=== PATIENT | female | born 1950 | race Caucasian/White ===

== ENCOUNTER 2018-04-12 15:14 | Inpatient (IN) | payer MEDICARE, MEDICAID, SELFPAY ==
[2018-04-12] VITALS (17 sets, daily range): BP systolic 88–126; BP diastolic 56–110; PULSE 124–142; RESP 16–28; TEMP 36.2–37; O2SAT 88–100; BMI 48.4
--- NOTE | 2018-04-12 15:17 | ED.FEMALEGU ---
HPI - Female Genitourinary <LYNNE Alves - Last Filed: 04/12/18 22:10> General Chief complaint: Urogenital-Female Stated complaint: THINKS SHE HAS UTI/BLADDER INFECTION Time Seen by Provider: 04/12/18 15:17 History of Present Illness HPI Narrative: 67 year old female here for complaint of having frequent urination and dysuria over the past several days he has. Triage nurse notice that her heart rate was approximately 1 0 40. EKG was obtained and it shows that she is in a flutter with RVR. She was placed in room and put on monitor. She denies any chest pain or shortness of breath. She denies having any history of prior a flutter or AFib. She denies any prior cardiac history. No fevers no chills. She denies having any sensation of her heart beating fast or palpitation. She has a history of hypertension and diabetes. She does smoke half a pack a day. She denies any other concerns or complaints. Related Data Home Medications Medication Instructions Recorded Confirmed gabapentin [Neurontin] 600 mg PO Q6H #0 02/01/11 04/12/18 fluticasone [Flonase Allergy 2 spray INTRANASAL QDAY #0 09/28/17 04/12/18 Relief] hydrochlorothiazide 1 - 2 cap PO QDAYP PRN #0 09/28/17 04/12/18 ipratropium-albuterol [Combivent 1 puff TID #0 09/28/17 04/12/18 Respimat] simvastatin 20 mg PO HS #0 09/28/17 04/12/18 albuterol sulfate 2 puff INHALATION Q4-6H PRN 04/12/18 04/12/18 aspirin 81 mg PO DAILY 04/12/18 04/12/18 hydrocodone-acetaminophen 1 tab PO Q6H PRN 04/12/18 04/12/18 losartan 50 mg PO DAILY 04/12/18 04/12/18 metformin [Glucophage] 500 mg PO BIDWM 04/12/18 04/12/18 oxybutynin chloride 10 mg PO DAILY 04/12/18 04/12/18 triamcinolone acetonide 1 applic TOPICAL BID 04/12/18 04/12/18 triamcinolone acetonide 1 dose TOPICAL BID 04/12/18 04/12/18 ursodiol 300 mg PO BID 04/12/18 04/12/18 Allergies Allergy/AdvReac Type Severity Reaction Status Date / Time captopril [CAPTOPRIL] Allergy Unknown Unverified 03/06/18 12:55 nabumetone [NABUMETONE] Allergy Unknown Unverified 03/06/18 12:55 Review of Systems <LYNNE Alves - Last Filed: 04/12/18 22:10> Constitutional Denies chills, Denies fever(s), Denies lethargy and Denies weakness Eyes Denies change in vision, Denies eye discharge, Denies irritation and Denies loss of vision Cardiovascular Denies dyspnea and Denies dyspnea on exertion Respiratory Denies cough, Denies dyspnea, Denies dyspnea on exertion and Denies wheezing Genitourinary Reports dysuria and Reports urinary urgency Neurologic Denies loss of vision and Denies weakness Allergic/Immunologic Denies wheezing Exam <LYNNE Alves - Last Filed: 04/12/18 22:10> Initial Vital Signs Initial Vital Signs: Vital Signs Pulse Rate 140 H 04/12/18 15:19 Respiratory Rate 20 04/12/18 15:19 Blood Pressure 115/90 H 04/12/18 15:19 Pulse Oximetry 95 04/12/18 15:19 Const General: cooperative and well developed Nutritional Appearance: well nourished Orientation: alert, awake, oriented x3 and not confused [facility] Head: normal to inspection and normocephalic Eyes Pupils: PERRL EOM: EOM intact bilaterally Resp Effort & Inspection: normal respiratory effort, able to speak in complete sentences, no respiratory distress and no use of accessory muscles Auscultation: clear to auscultation bilaterally, no rales, no rhonchi and no wheezes Cardio Rate: tachycardic Rhythm: regular rhythm Heart Sounds: S1 normal, S2 normal, no gallops, no murmurs and no rubs GI Inspection: non-distended Palpation: soft, no hepatosplenomegaly, No guarding, No pulsatile mass and No tender Auscultation: normal bowel sounds Back/Spine/Pelvis Back: normal to inspection, No back tenderness and No CVA tenderness Skin General: no rashes or lesions noted, No jaundice and No petechiae <Daljit Martino DO - Last Filed: 04/13/18 08:29> Initial Vital Signs Initial Vital Signs: Vital Signs Pulse Rate 140 H 04/12/18 15:19 Respiratory Rate 20 04/12/18 15:19 Blood Pressure 115/90 H 04/12/18 15:19 Pulse Oximetry 95 04/12/18 15:19 Course <LYNNE Alves - Last Filed: 04/12/18 22:10> Orders Ordered: ED Orders 04/13/18 04:40 B Type Natriuretic Peptide Routine Complete Blood Count AUTO DIFF Routine Troponin I Routine 04/13/18 05:00 EC echo doppler complete Routine Hydrocodone Bitart/Acetaminophen ([place] 5/325) 1 tab PO Q6HR PRN PRN Reason: Pain, Moderate Last Admin: 04/13/18 04:22 Dose: 1 tab Albuterol (Ventolin) 2.5 mg INH [id number] PRN PRN Reason: Shortness Of Breath Albuterol/Ipratropium (Duoneb) 3 ml INH RTBID [facility] Last Admin: 04/13/18 07:16 Dose: 3 ml Admin: 04/12/18 19:45 Dose: 3 ml Aspirin (Aspirin Ec) 81 mg PO DAILY [facility] Dextrose (D50w) 25 gm IV PRN PRN; Protocol PRN Reason: Hypoglycemia Fluticasone Propionate (Flonase) 2 spray NASAL DAILY [facility] Gabapentin (Neurontin) 600 mg PO Q6HR [facility] Last Admin: 04/13/18 07:33 Dose: 600 mg Admin: 04/12/18 23:42 Dose: 600 mg Hydrochlorothiazide (Hydrochlorothiazide) 12.5 mg PO DAILY [facility] Ondansetron HCl 8 mg/ Sodium (Chloride) 54 mls @ 108 mls/hr IV Q6HR PRN PRN Reason: Nausea And Vomiting Diltiazem HCl 125 mg/ Dextrose 125 mls @ 5 mls/hr IV TITRATE [facility]; Protocol Last Admin: 04/13/18 05:11 Dose: 15 mg/hr, 15 mls/hr Titration: 04/13/18 05:08 Dose: 125 mg/hr, 125 mls/hr Admin: 04/12/18 23:59 Dose: 15 mg/hr, 15 mls/hr Admin: 04/12/18 22:29 Dose: Not Given Sodium Chloride (Normal Saline 0.9%) 1,000 mls @ 125 mls/hr IV CONT [facility] Last Admin: 04/13/18 02:42 Dose: 125 mls/hr Admin: 04/12/18 22:30 Dose: Not Given Insulin Aspart (Novolog Flexpen) 0 unit SUBCUT ACHS [facility]; Protocol Last Admin: 04/12/18 21:00 Dose: 1 unit Losartan Potassium (Cozaar) 50 mg PO DAILY [facility] Metformin HCl (Glucophage) 500 mg PO 0800,1700 [facility] Oxybutynin (Ditropan) 10 mg PO DAILY [facility] Simvastatin (Zocor) 20 mg PO BEDTIME [facility] Last Admin: 04/12/18 22:23 Dose: 20 mg Triamcinolone Acetonide (Kenalog 0.1% Cream) 1 applic TOP BID PRN PRN Reason: Irritation Ursodiol (Actigall) 300 mg PO BID [facility] Last Admin: 04/12/18 22:23 Dose: 300 mg Discontinued Medications Diltiazem HCl (Cardizem) 20 mg IV NOW ONE Stop: 04/12/18 15:44 Last Admin: 04/12/18 16:08 Dose: 20 mg Gabapentin (Neurontin) 600 mg PO TID [facility] Last Admin: 04/12/18 20:38 Dose: 600 mg Sodium Chloride (Normal Saline 0.9%) 1,000 mls @ 150 mls/hr IV CONT [facility] Last Infusion: 04/12/18 22:32 Dose: 150 mls/hr Infusion: 04/12/18 18:20 Dose: 150 mls/hr Admin: 04/12/18 16:07 Dose: 150 mls/hr Ceftriaxone Sodium/Dextrose (Rocephin) 1 gm in 50 mls @ 100 mls/hr IV NOW ONE Stop: 04/12/18 18:21 Last Infusion: 04/12/18 22:34 Dose: 0 mls/hr Infusion: 04/12/18 18:25 Dose: 100 mls/hr Admin: 04/12/18 17:58 Dose: 100 mls/hr Diltiazem HCl 125 mg/ Dextrose 125 mls @ 5 mls/hr IV TITRATE [facility]; Protocol Last Admin: 04/13/18 06:00 Dose: Not Given Sodium Chloride (Normal Saline 0.9%) 1,000 mls @ 125 mls/hr IV CONT [facility] Last Admin: 04/12/18 20:39 Dose: 125 mls/hr Ondansetron HCl 8 mg/ Sodium (Chloride) 104 mls @ 208 mls/hr IV Q6HR PRN PRN Reason: Nausea And Vomiting Labetalol HCl (Trandate) 5 mg IV NOW ONE Stop: 04/12/18 16:36 Last Admin: 04/12/18 16:57 Dose: 5 mg Vital Signs - 8 hr 04/13/18 00:30 04/13/18 01:00 04/13/18 01:30 Temperature Pulse Rate 95 H Respiratory Rate Blood Pressure 102/56 L 121/85 H 130/72 H Pulse Oximetry 04/13/18 02:00 04/13/18 02:30 04/13/18 03:00 Temperature Pulse Rate 115 H 106 H 97 H Respiratory Rate Blood Pressure 132/72 H 93/72 101/66 Pulse Oximetry 04/13/18 04:00 04/13/18 04:30 04/13/18 05:00 Temperature 97.8 F Pulse Rate 87 83 87 Respiratory Rate 20 Blood Pressure 118/54 L 123/64 H 123/64 H Pulse Oximetry 95 04/13/18 05:11 04/13/18 06:00 04/13/18 06:54 Temperature Pulse Rate 93 H 90 92 H Respiratory Rate 16 20 Blood Pressure 123/64 H 127/51 H 127/61 H Pulse Oximetry 04/13/18 07:15 04/13/18 07:19 Temperature Pulse Rate 78 Respiratory Rate 16 Blood Pressure Pulse Oximetry 95 <Daljit Martino, DO - Last Filed: 04/13/18 08:29> Orders Ordered: ED Orders 04/13/18 04:40 B Type Natriuretic Peptide Routine Complete Blood Count AUTO DIFF Routine Troponin I Routine 04/13/18 05:00 EC echo doppler complete Routine Hydrocodone Bitart/Acetaminophen ([place] 5/325) 1 tab PO Q6HR PRN PRN Reason: Pain, Moderate Last Admin: 04/13/18 04:22 Dose: 1 tab Albuterol (Ventolin) 2.5 mg INH [id number] PRN PRN Reason: Shortness Of Breath Albuterol/Ipratropium (Duoneb) 3 ml INH RTBID [facility] Last Admin: 04/13/18 07:16 Dose: 3 ml Admin: 04/12/18 19:45 Dose: 3 ml Aspirin (Aspirin Ec) 81 mg PO DAILY [facility] Dextrose (D50w) 25 gm IV PRN PRN; Protocol PRN Reason: Hypoglycemia Fluticasone Propionate (Flonase) 2 spray NASAL DAILY [facility] Gabapentin (Neurontin) 600 mg PO Q6HR [facility] Last Admin: 04/13/18 07:33 Dose: 600 mg Admin: 04/12/18 23:42 Dose: 600 mg Hydrochlorothiazide (Hydrochlorothiazide) 12.5 mg PO DAILY [facility] Ondansetron HCl 8 mg/ Sodium (Chloride) 54 mls @ 108 mls/hr IV Q6HR PRN PRN Reason: Nausea And Vomiting Diltiazem HCl 125 mg/ Dextrose 125 mls @ 5 mls/hr IV TITRATE [facility]; Protocol Last Admin: 04/13/18 05:11 Dose: 15 mg/hr, 15 mls/hr Titration: 04/13/18 05:08 Dose: 125 mg/hr, 125 mls/hr Admin: 04/12/18 23:59 Dose: 15 mg/hr, 15 mls/hr Admin: 04/12/18 22:29 Dose: Not Given Sodium Chloride (Normal Saline 0.9%) 1,000 mls @ 125 mls/hr IV CONT [facility] Last Admin: 04/13/18 02:42 Dose: 125 mls/hr Admin: 04/12/18 22:30 Dose: Not Given Insulin Aspart (Novolog Flexpen) 0 unit SUBCUT ACHS [facility]; Protocol Last Admin: 04/12/18 21:00 Dose: 1 unit Losartan Potassium (Cozaar) 50 mg PO DAILY [facility] Metformin HCl (Glucophage) 500 mg PO 0800,1700 [facility] Oxybutynin (Ditropan) 10 mg PO DAILY [facility] Simvastatin (Zocor) 20 mg PO BEDTIME [facility] Last Admin: 04/12/18 22:23 Dose: 20 mg Triamcinolone Acetonide (Kenalog 0.1% Cream) 1 applic TOP BID PRN PRN Reason: Irritation Ursodiol (Actigall) 300 mg PO BID [facility] Last Admin: 04/12/18 22:23 Dose: 300 mg Discontinued Medications Diltiazem HCl (Cardizem) 20 mg IV NOW ONE Stop: 04/12/18 15:44 Last Admin: 04/12/18 16:08 Dose: 20 mg Gabapentin (Neurontin) 600 mg PO TID [facility] Last Admin: 04/12/18 20:38 Dose: 600 mg Sodium Chloride (Normal Saline 0.9%) 1,000 mls @ 150 mls/hr IV CONT [facility] Last Infusion: 04/12/18 22:32 Dose: 150 mls/hr Infusion: 04/12/18 18:20 Dose: 150 mls/hr Admin: 04/12/18 16:07 Dose: 150 mls/hr Ceftriaxone Sodium/Dextrose (Rocephin) 1 gm in 50 mls @ 100 mls/hr IV NOW ONE Stop: 04/12/18 18:21 Last Infusion: 04/12/18 22:34 Dose: 0 mls/hr Infusion: 04/12/18 18:25 Dose: 100 mls/hr Admin: 04/12/18 17:58 Dose: 100 mls/hr Diltiazem HCl 125 mg/ Dextrose 125 mls @ 5 mls/hr IV TITRATE [facility]; Protocol Last Admin: 04/13/18 06:00 Dose: Not Given Sodium Chloride (Normal Saline 0.9%) 1,000 mls @ 125 mls/hr IV CONT [facility] Last Admin: 04/12/18 20:39 Dose: 125 mls/hr Ondansetron HCl 8 mg/ Sodium (Chloride) 104 mls @ 208 mls/hr IV Q6HR PRN PRN Reason: Nausea And Vomiting Labetalol HCl (Trandate) 5 mg IV NOW ONE Stop: 04/12/18 16:36 Last Admin: 04/12/18 16:57 Dose: 5 mg Vital Signs - 8 hr 04/13/18 00:30 04/13/18 01:00 04/13/18 01:30 Temperature Pulse Rate 95 H Respiratory Rate Blood Pressure 102/56 L 121/85 H 130/72 H Pulse Oximetry 04/13/18 02:00 04/13/18 02:30 04/13/18 03:00 Temperature Pulse Rate 115 H 106 H 97 H Respiratory Rate Blood Pressure 132/72 H 93/72 101/66 Pulse Oximetry 04/13/18 04:00 04/13/18 04:30 04/13/18 05:00 Temperature 97.8 F Pulse Rate 87 83 87 Respiratory Rate 20 Blood Pressure 118/54 L 123/64 H 123/64 H Pulse Oximetry 95 04/13/18 05:11 04/13/18 06:00 04/13/18 06:54 Temperature Pulse Rate 93 H 90 92 H Respiratory Rate 16 20 Blood Pressure 123/64 H 127/51 H 127/61 H Pulse Oximetry 04/13/18 07:15 04/13/18 07:19 Temperature Pulse Rate 78 Respiratory Rate 16 Blood Pressure Pulse Oximetry 95 MDM - Female Genitourinary <LYNNE Alves - Last Filed: 04/12/18 22:10> Lab Data Result diagrams: 04/13/18 04:40 04/12/18 15:55 Lab Results 04/12/18 04/12/18 04/12/18 Range/Units 15:55 15:55 15:55 WBC 9.1 (4.5-11.0) X10^3/uL RBC 4.80 (4.0-5.2) X10^6/uL Hgb 11.3 L (12.0-16.0) g/dL Hct 36.2 (36-46) % MCV 75.3 L (80-100) fL MCH 23.4 L (26-34) PG MCHC 31.1 (30-36) % RDW 20.1 H (11.6-14.8) % Plt Count 294 (150-400) X10^3/uL Neut % (Auto) 68.6 (50-75) % Lymph % (Auto) 18.5 L (25-40) % Dickinson % (Auto) 9.1 (3-14) % Eos % (Auto) 2.4 (2-4) % Baso % (Auto) 1.4 (0-2) % Neut # (Auto) 6200 H (3090-0193) /uL RBC Morphology Normal morphology Anisocytosis 2+ H Microcytosis 1+ H PT 12.0 (10.1-12.7) SECONDS INR 1.1 (0.9-1.3) Sodium 137 (137-145) mmol/L Potassium 4.4 (3.4-5.1) mmol/L Chloride 96.0 L (98-107) mmol/L Carbon Dioxide 33.0 H (22-32) mmol/L BUN 14.0 (7-17) mg/dL Creatinine 0.70 (0.52-1.04) mg/dL Estimated GFR > 60.0 (>60) mL/min BUN/Creatinine Ratio 20.0 (6-22) Glucose 123 H (80-110) mg/dL Calcium 8.5 (8.4-10.2) mg/dL Total Bilirubin 0.4 (0.2-1.3) mg/dL AST 18 (14-36) IU/L ALT 19 (9-52) IU/L Alkaline Phosphatase 74 (38-126) U/L Total Creatine Kinase 57 (30-135) U/L CK-MB (CK-2) TNP Troponin I < 0.012 (0.01-0.034) ng/mL B-Natriuretic Peptide (<100) Total Protein 6.7 (6.3-8.2) g/dL Albumin 3.5 (3.5-5.0) g/dL Globulin 3.2 (1.7-4.1) g/dL Albumin/Globulin Ratio 1.1 (1.0-2.8) Lipase 38 (23-300) U/L Procalcitonin (<0.5) ng/mL Nasal Screen MRSA (PCR) (Negative) 04/12/18 04/12/18 04/13/18 Range/Units 18:30 21:00 04:40 WBC 7.8 (4.5-11.0) X10^3/uL RBC 4.75 (4.0-5.2) X10^6/uL Hgb 11.0 L (12.0-16.0) g/dL Hct 35.9 L (36-46) % MCV 75.6 L (80-100) fL MCH 23.1 L (26-34) PG MCHC 30.5 (30-36) % RDW 20.3 H (11.6-14.8) % Plt Count 269 (150-400) X10^3/uL Neut % (Auto) 61.1 (50-75) % Lymph % (Auto) 26.2 (25-40) % Dickinson % (Auto) 8.9 (3-14) % Eos % (Auto) 2.9 (2-4) % Baso % (Auto) 0.9 (0-2) % Neut # (Auto) 4700 (4578-5406) /uL RBC Morphology Anisocytosis Microcytosis PT (10.1-12.7) SECONDS INR (0.9-1.3) Sodium (137-145) mmol/L Potassium (3.4-5.1) mmol/L Chloride (98-107) mmol/L Carbon Dioxide (22-32) mmol/L BUN (7-17) mg/dL Creatinine (0.52-1.04) mg/dL Estimated GFR (>60) mL/min BUN/Creatinine Ratio (6-22) Glucose (80-110) mg/dL Calcium (8.4-10.2) mg/dL Total Bilirubin (0.2-1.3) mg/dL AST (14-36) IU/L ALT (9-52) IU/L Alkaline Phosphatase (38-126) U/L Total Creatine Kinase (30-135) U/L CK-MB (CK-2) Troponin I (0.01-0.034) ng/mL B-Natriuretic Peptide 191.0 (<100) Total Protein (6.3-8.2) g/dL Albumin (3.5-5.0) g/dL Globulin (1.7-4.1) g/dL Albumin/Globulin Ratio (1.0-2.8) Lipase (23-300) U/L Procalcitonin < 0.05 (<0.5) ng/mL Nasal Screen MRSA (PCR) Negative for mrsa (Negative) 04/13/18 Range/Units 04:40 WBC (4.5-11.0) X10^3/uL RBC (4.0-5.2) X10^6/uL Hgb (12.0-16.0) g/dL Hct (36-46) % MCV (80-100) fL MCH (26-34) PG MCHC (30-36) % RDW (11.6-14.8) % Plt Count (150-400) X10^3/uL Neut % (Auto) (50-75) % Lymph % (Auto) (25-40) % Dickinson % (Auto) (3-14) % Eos % (Auto) (2-4) % Baso % (Auto) (0-2) % Neut # (Auto) (4768-6909) /uL RBC Morphology Anisocytosis Microcytosis PT (10.1-12.7) SECONDS INR (0.9-1.3) Sodium (137-145) mmol/L Potassium (3.4-5.1) mmol/L Chloride (98-107) mmol/L Carbon Dioxide (22-32) mmol/L BUN (7-17) mg/dL Creatinine (0.52-1.04) mg/dL Estimated GFR (>60) mL/min BUN/Creatinine Ratio (6-22) Glucose (80-110) mg/dL Calcium (8.4-10.2) mg/dL Total Bilirubin (0.2-1.3) mg/dL AST (14-36) IU/L ALT (9-52) IU/L Alkaline Phosphatase (38-126) U/L Total Creatine Kinase (30-135) U/L CK-MB (CK-2) Troponin I < 0.012 (0.01-0.034) ng/mL B-Natriuretic Peptide (<100) Total Protein (6.3-8.2) g/dL Albumin (3.5-5.0) g/dL Globulin (1.7-4.1) g/dL Albumin/Globulin Ratio (1.0-2.8) Lipase (23-300) U/L Procalcitonin (<0.5) ng/mL Nasal Screen MRSA (PCR) (Negative) Imaging Data Chest x-ray: Radiologist's impression: PROCEDURE: XR CHEST 1V INDICATIONS: aflutter with rvr TECHNIQUE: One view of the chest was acquired. COMPARISON: [facility], CHEST 1 VIEW, 09/30/2017, 9:21. FINDINGS: Surgical changes and devices: None. Lungs and pleura: No pleural effusions or pneumothorax. Lungs are clear. Mediastinum: Mediastinal contours appear normal. Heart size is mildly enlarged. Bones and chest wall: No suspicious bony lesions. Overlying soft tissues appear unremarkable. IMPRESSION: Borderline cardiomegaly. No failure or pneumonia seen. ECG Data Interpretation: EKG shows a flutter with RVR with a rate of 135. No ST elevation or depression. QRS duration of 94. QTC of 380. MDM Narrative Medical decision making narrative: EKG was obtained and shows a flutter with RVR. No prior history of AFib or a flutter. No prior cardiac history. She was given a 20 mg of Cardizem IV which did not affect her rate and then she was given 5 mg of labetalol this also did not affect her rate. Her blood pressure dropped to approximately 90/70. We waited for blood pressure to return to baseline before starting her on Cardizem drip. Chest x-ray was negative for any acute findings. CBC Chem panel were obtained were unremarkable. Cardiac enzymes were obtained and were negative. Urinalysis indicates urinary tract infection she is given 1 g of Rocephin IV. Discussed case with hospitalist who accepted patient patient is admitted to ICU for Cardizem drip and observation. <Daljit Martino, DO - Last Filed: 04/13/18 08:29> Lab Data Lab Results 04/12/18 04/12/18 04/12/18 Range/Units 15:55 15:55 15:55 WBC 9.1 (4.5-11.0) X10^3/uL RBC 4.80 (4.0-5.2) X10^6/uL Hgb 11.3 L (12.0-16.0) g/dL Hct 36.2 (36-46) % MCV 75.3 L (80-100) fL MCH 23.4 L (26-34) PG MCHC 31.1 (30-36) % RDW 20.1 H (11.6-14.8) % Plt Count 294 (150-400) X10^3/uL Neut % (Auto) 68.6 (50-75) % Lymph % (Auto) 18.5 L (25-40) % Dickinson % (Auto) 9.1 (3-14) % Eos % (Auto) 2.4 (2-4) % Baso % (Auto) 1.4 (0-2) % Neut # (Auto) 6200 H (9532-1965) /uL RBC Morphology Normal morphology Anisocytosis 2+ H Microcytosis 1+ H PT 12.0 (10.1-12.7) SECONDS INR 1.1 (0.9-1.3) Sodium 137 (137-145) mmol/L Potassium 4.4 (3.4-5.1) mmol/L Chloride 96.0 L (98-107) mmol/L Carbon Dioxide 33.0 H (22-32) mmol/L BUN 14.0 (7-17) mg/dL Creatinine 0.70 (0.52-1.04) mg/dL Estimated GFR > 60.0 (>60) mL/min BUN/Creatinine Ratio 20.0 (6-22) Glucose 123 H (80-110) mg/dL Calcium 8.5 (8.4-10.2) mg/dL Total Bilirubin 0.4 (0.2-1.3) mg/dL AST 18 (14-36) IU/L ALT 19 (9-52) IU/L Alkaline Phosphatase 74 (38-126) U/L Total Creatine Kinase 57 (30-135) U/L CK-MB (CK-2) TNP Troponin I < 0.012 (0.01-0.034) ng/mL B-Natriuretic Peptide (<100) Total Protein 6.7 (6.3-8.2) g/dL Albumin 3.5 (3.5-5.0) g/dL Globulin 3.2 (1.7-4.1) g/dL Albumin/Globulin Ratio 1.1 (1.0-2.8) Lipase 38 (23-300) U/L Procalcitonin (<0.5) ng/mL Nasal Screen MRSA (PCR) (Negative) 04/12/18 04/12/18 04/13/18 Range/Units 18:30 21:00 04:40 WBC 7.8 (4.5-11.0) X10^3/uL RBC 4.75 (4.0-5.2) X10^6/uL Hgb 11.0 L (12.0-16.0) g/dL Hct 35.9 L (36-46) % MCV 75.6 L (80-100) fL MCH 23.1 L (26-34) PG MCHC 30.5 (30-36) % RDW 20.3 H (11.6-14.8) % Plt Count 269 (150-400) X10^3/uL Neut % (Auto) 61.1 (50-75) % Lymph % (Auto) 26.2 (25-40) % Dickinson % (Auto) 8.9 (3-14) % Eos % (Auto) 2.9 (2-4) % Baso % (Auto) 0.9 (0-2) % Neut # (Auto) 4700 (1297-3734) /uL RBC Morphology Anisocytosis Microcytosis PT (10.1-12.7) SECONDS INR (0.9-1.3) Sodium (137-145) mmol/L Potassium (3.4-5.1) mmol/L Chloride (98-107) mmol/L Carbon Dioxide (22-32) mmol/L BUN (7-17) mg/dL Creatinine (0.52-1.04) mg/dL Estimated GFR (>60) mL/min BUN/Creatinine Ratio (6-22) Glucose (80-110) mg/dL Calcium (8.4-10.2) mg/dL Total Bilirubin (0.2-1.3) mg/dL AST (14-36) IU/L ALT (9-52) IU/L Alkaline Phosphatase (38-126) U/L Total Creatine Kinase (30-135) U/L CK-MB (CK-2) Troponin I (0.01-0.034) ng/mL B-Natriuretic Peptide 191.0 (<100) Total Protein (6.3-8.2) g/dL Albumin (3.5-5.0) g/dL Globulin (1.7-4.1) g/dL Albumin/Globulin Ratio (1.0-2.8) Lipase (23-300) U/L Procalcitonin < 0.05 (<0.5) ng/mL Nasal Screen MRSA (PCR) Negative for mrsa (Negative) 04/13/18 Range/Units 04:40 WBC (4.5-11.0) X10^3/uL RBC (4.0-5.2) X10^6/uL Hgb (12.0-16.0) g/dL Hct (36-46) % MCV (80-100) fL MCH (26-34) PG MCHC (30-36) % RDW (11.6-14.8) % Plt Count (150-400) X10^3/uL Neut % (Auto) (50-75) % Lymph % (Auto) (25-40) % Dickinson % (Auto) (3-14) % Eos % (Auto) (2-4) % Baso % (Auto) (0-2) % Neut # (Auto) (2269-0775) /uL RBC Morphology Anisocytosis Microcytosis PT (10.1-12.7) SECONDS INR (0.9-1.3) Sodium (137-145) mmol/L Potassium (3.4-5.1) mmol/L Chloride (98-107) mmol/L Carbon Dioxide (22-32) mmol/L BUN (7-17) mg/dL Creatinine (0.52-1.04) mg/dL Estimated GFR (>60) mL/min BUN/Creatinine Ratio (6-22) Glucose (80-110) mg/dL Calcium (8.4-10.2) mg/dL Total Bilirubin (0.2-1.3) mg/dL AST (14-36) IU/L ALT (9-52) IU/L Alkaline Phosphatase (38-126) U/L Total Creatine Kinase (30-135) U/L CK-MB (CK-2) Troponin I < 0.012 (0.01-0.034) ng/mL B-Natriuretic Peptide (<100) Total Protein (6.3-8.2) g/dL Albumin (3.5-5.0) g/dL Globulin (1.7-4.1) g/dL Albumin/Globulin Ratio (1.0-2.8) Lipase (23-300) U/L Procalcitonin (<0.5) ng/mL Nasal Screen MRSA (PCR) (Negative) Critical Care Time <LYNNE Alves - Last Filed: 04/12/18 22:10> Critical Care Time: Yes Total Critical Care Time: 2 Attestation: aflutter and rvr Discharge Plan Departure Clinical Impression: Atrial flutter with rapid ventricular response Discharge Date/Time: 04/12/18 19:29 Interventions: ED Discharge Assessment Last Done: 04/12/18 18:14 Admit Date/Time: 04/12/18 19:28 Admit Provider: Kaleb Gonzales V <Daljit Martino DO - Last Filed: 04/13/18 08:29> Cosign ED Attending Cosignature Attestation: I was immediately available in the department for consultation. This documentation has been reviewed and I agree with assessment and plan. Supervised by Daljit Martino DO
--- NOTE | 2018-04-12 15:43 | DI.RAD.S_ITS ---
PROCEDURE: XR CHEST 1V INDICATIONS: aflutter with rvr TECHNIQUE: One view of the chest was acquired. COMPARISON: [facility], , CHEST 1 VIEW, 09/30/2017, 9:21. FINDINGS: Surgical changes and devices: None. Lungs and pleura: No pleural effusions or pneumothorax. Lungs are clear. Mediastinum: Mediastinal contours appear normal. Heart size is mildly enlarged. Bones and chest wall: No suspicious bony lesions. Overlying soft tissues appear unremarkable. IMPRESSION: Borderline cardiomegaly. No failure or pneumonia seen. Dictated by: Shreyas Connors M.D. on 04/12/2018 at 16:21 Approved by: Shreyas Connors M.D. on 04/12/2018 at 16:23
[2018-04-12 16:04] LABS: Add Manual Diff / Slide Review NO; Basophils Percent Auto 1.4 % (0-2); Eosinophils Percent Auto 2.4 % (2-4); Hematocrit 36.2 % (36-46); Hemoglobin 11.3 g/dL (12.0-16.0); Lymphocytes Percent Auto 18.5 % (25-40); Mean Corpuscular HGB Conc 31.1 % (30-36); Mean Corpuscular Hemoglobin 23.4 PG (26-34); Mean Corpuscular Volume 75.3 fL (80-100); Monocytes Percent Auto 9.1 % (3-14); Neutrophils Absolute Auto 6200 /uL (3000-5900); Neutrophils Percent Auto 68.6 % (50-75); Platelet Count 294 X10^3/uL (150-400); Red Cell Distribution Width 20.1 % (11.6-14.8); White Blood Cell Count 9.1 X10^3/uL (4.5-11.0)
[2018-04-12] MEDS: SODIUM CHLORIDE 0.9% 1,000 ML 150 ML IV (16:07)
[2018-04-12] MEDS: dilTIAZem 25 MG/5 ML SDV 20 MG IV (16:08)
[2018-04-12 16:09] LABS: INR 1.1 (0.9-1.3)
[2018-04-12 16:13] LABS: Alanine Aminotransferase 19 IU/L (9-52); Albumin 3.5 g/dL (3.5-5.0); Albumin Globulin Ratio 1.1 (1.0-2.8); Alkaline Phosphatase 74 U/L (38-126); Aspartate Aminotransferase 18 IU/L (14-36); Bilirubin Total 0.4 mg/dL (0.2-1.3); Calcium 8.5 mg/dL (8.4-10.2); Creatine Kinase 57 U/L (30-135); Estimated Glomerular Filt Rate > 60.0 mL/min (>60); Globulin 3.2 g/dL (1.7-4.1); Glucose 123 mg/dL (80-110); HEMOLYSIS < 15 (0-50); Lipase 38 U/L (23-300); Potassium 4.4 mmol/L (3.4-5.1); Sodium 137 mmol/L (137-145); Total Protein 6.7 g/dL (6.3-8.2)
[2018-04-12 16:26] LABS: Troponin I < 0.012 ng/mL (0.01-0.034)
--- NOTE | 2018-04-12 16:30 | PC.NURSE ---
Placed on 2l nc for O2 sats 87% per practioner
[2018-04-12 16:31] LABS: Anisocytosis 2+; Microcytosis 1+
[2018-04-12 16:33] LABS: RBC Morphology Normal Morphology
[2018-04-12] MEDS: LABETALOL 20 MG/4 ML SYRINGE 5 MG IV (16:57)
[2018-04-12] MEDS: CEFTRIAXONE 1 GM/50 ML FROZ.PIGGY IV (17:58)
--- NOTE | 2018-04-12 18:20 | PM.HP.1 ---
History of Present Illness Chief complaint: THINKS SHE HAS UTI/BLADDER INFECTION Narrative: Alem Donahue is a 67 year old female under the primary care of Dr. Saini presented after experiencing 1 week of dysuria, urgency and hesitancy. She thought that she had a urinary tract infection. She states that she has not seen a primary care provider in over 6 months, and tried to go to urgent cares but they would take her insurance, so she presented to the emergency department. In the ER she was found to have a heart rate in the 130s and found to be in atrial fibrillation/flutter by EKG. She was given 20 mg of IV diltiazem with no apparent effect on heart rate, though did become mildly hypotensive with blood pressures into the 80s. She was given IV fluids and admitted to the ICU for ongoing management and care. She denies previous history of a arrhythmias and furthermore denies chest pain, shortness of breath, palpitations or any recent alteration in her chronic dyspnea which she attributes to COPD. PFSH Medical History Cholelithiasis (Acute) Depression (Acute) Diabetes (Acute) Fracture of left ankle (Acute) Hyperlipidemia (Acute) Hypertension (Acute) Inguinal hernia (Acute) Lumbar degenerative disc disease (Acute) Osteoarthritis (Acute) Pneumococcal meningitis (Acute) Prolapsed bladder (Acute) Surgical History History of abdominoplasty (Acute) History of gastric bypass (Acute) Social History Smoking Status: Current every day smoker alcohol intake: former additional social history: lives alone Meds Home Medications Medication Instructions Recorded Confirmed Type gabapentin [Neurontin] 600 mg PO Q6H #0 02/01/11 04/12/18 History fluticasone [Flonase Allergy 2 spray INTRANASAL QDAY #0 09/28/17 04/12/18 History Relief] hydrochlorothiazide 1 - 2 cap PO QDAYP PRN #0 09/28/17 04/12/18 History ipratropium-albuterol [Combivent 1 puff TID #0 09/28/17 04/12/18 History Respimat] simvastatin 20 mg PO HS #0 09/28/17 04/12/18 History albuterol sulfate 2 puff INHALATION Q4-6H PRN 04/12/18 04/12/18 History aspirin 81 mg PO DAILY 04/12/18 04/12/18 History hydrocodone-acetaminophen 1 tab PO Q6H PRN 04/12/18 04/12/18 History losartan 50 mg PO DAILY 04/12/18 04/12/18 History metformin [Glucophage] 500 mg PO BIDWM 04/12/18 04/12/18 History oxybutynin chloride 10 mg PO DAILY 04/12/18 04/12/18 History triamcinolone acetonide 1 applic TOPICAL BID 04/12/18 04/12/18 History triamcinolone acetonide 1 dose TOPICAL BID 04/12/18 04/12/18 History ursodiol 300 mg PO BID 04/12/18 04/12/18 History Allergies Allergy/AdvReac Type Severity Reaction Status Date / Time captopril [CAPTOPRIL] Allergy Unknown Unverified 03/06/18 12:55 nabumetone [NABUMETONE] Allergy Unknown Unverified 03/06/18 12:55 Review of Systems Review of Systems All systems reviewed & are unremarkable except as noted in HPI and below Genitourinary Genitourinary: Reports urinary frequency and Reports urinary urgency Comments: dysuria Exam Vital Signs (past 8 hours): Vital Signs - 8 hr 04/12/18 15:19 04/12/18 15:36 04/12/18 16:08 Temperature 97.4 F L Pulse Rate 140 H 142 H Respiratory Rate 20 Blood Pressure 115/90 H 126/110 H Blood Pressure [Right Arm] Blood Pressure [Right Wrist] Pulse Oximetry 95 04/12/18 16:19 04/12/18 16:30 04/12/18 16:37 Temperature Pulse Rate 134 H 132 H 135 H Respiratory Rate 25 H 21 Blood Pressure Blood Pressure [Right Arm] Blood Pressure [Right Wrist] 98/56 L 107/82 H 107/82 H Pulse Oximetry 88 L 89 L 95 04/12/18 16:53 04/12/18 16:57 04/12/18 17:08 Temperature Pulse Rate 142 H 129 H 124 H Respiratory Rate 24 16 Blood Pressure 111/96 H Blood Pressure [Right Arm] Blood Pressure [Right Wrist] 111/96 H 88/74 L Pulse Oximetry 96 96 04/12/18 17:22 04/12/18 17:31 04/12/18 18:02 Temperature Pulse Rate 138 H 137 H 139 H Respiratory Rate 25 H 25 H Blood Pressure 90/68 Blood Pressure [Right Arm] 90/68 98/77 Blood Pressure [Right Wrist] 90/68 Pulse Oximetry 100 94 04/12/18 18:14 Temperature Pulse Rate 135 H Respiratory Rate 26 H Blood Pressure Blood Pressure [Right Arm] Blood Pressure [Right Wrist] Pulse Oximetry Pulse Oximetry 94 Oxygen Delivery Method Nasal Cannula Narrative Exam Narrative: General: Pleasant, obese female, appears mildly dyspneic at rest HEENT: Pupils equal round reactive, extraocular movements intact, mucous membranes pink and moist Neck: Supple, thick Lungs: Clear to auscultation Cardiac: Irregularly irregular, tachycardic without audible murmur Abdomen: Soft, obese, nontender Extremities: Without edema Neurologic: Alert, O oriented to person time and place, with no focal neurologic deficits evident Dermatologic: No rash or skin lesions Objective Labs Result Diagrams: 04/12/18 15:55 04/12/18 15:55 Labs: Laboratory Results - last 24 hr 04/12/18 04/12/18 04/12/18 15:55 15:55 15:55 WBC 9.1 RBC 4.80 Hgb 11.3 L Hct 36.2 MCV 75.3 L MCH 23.4 L MCHC 31.1 RDW 20.1 H Plt Count 294 Neut % (Auto) 68.6 Lymph % (Auto) 18.5 L [place] % (Auto) 9.1 Eos % (Auto) 2.4 Baso % (Auto) 1.4 Neut # (Auto) 6200 H RBC Morphology Normal morphology Anisocytosis 2+ H Microcytosis 1+ H PT 12.0 INR 1.1 Sodium 137 Potassium 4.4 Chloride 96.0 L Carbon Dioxide 33.0 H BUN 14.0 Creatinine 0.70 Estimated GFR > 60.0 BUN/Creatinine Ratio 20.0 Glucose 123 H Calcium 8.5 Total Bilirubin 0.4 AST 18 ALT 19 Alkaline Phosphatase 74 Total Creatine Kinase 57 CK-MB (CK-2) TNP Troponin I < 0.012 Total Protein 6.7 Albumin 3.5 Globulin 3.2 Albumin/Globulin Ratio 1.1 Lipase 38 Imaging Chest x-ray: Radiologist's impression: Borderline cardiomegaly. No failure or pneumonia seen. ECG: Atrial fibrillation/flutter at 135 beats per minute, with no acute ischemic changes Assessment & Plan Plan: Plan: 1. Atrial fibrillation/flutter with rapid ventricular response. Possibly precipitated by a urinary infection there is underlying heart disease. Admit to ICU, initiate IV diltiazem infusion for rate control, monitor on telemetry and follow serial cardiac enzymes to rule out myocardial infarction. Obtain echocardiogram, check TSH, and follow clinically. 2. Acute urinary tract infection. Check procalcitonin and blood cultures. Initiate IV antibiotic therapy. Note she was admitted for UTI in September 2017 and cultured pansensitive E coli. 3. Diabetes mellitus, type 2. Diabetic diet, routine metformin and sliding scale coverage. 4. Hypertension. Hold antihypertensives and monitor. 5. Hyperlipidemia. Continue routine simvastatin. 6. Osteoarthritis, with chronic pain and chronic opioid habituation. Continue routine hydrocodone. 7. DVT prophylaxis: Lovenox. 8. Code status: Full code. 9. Disposition: She has 2 children air, whom she has notified by phone. She normally lives alone. She will require at least 2 midnights of inpatient level care and is admitted to inpatient status.
--- NOTE | 2018-04-12 18:29 | P.HP_ITS ---
History of Present Illness Chief complaint: THINKS SHE HAS UTI/BLADDER INFECTION Narrative: Alem Donahue is a 67 year old female under the primary care of Dr. Saini presented after experiencing 1 week of dysuria, urgency and hesitancy. She thought that she had a urinary tract infection. She states that she has not seen a primary care provider in over 6 months, and tried to go to urgent cares but they would take her insurance, so she presented to the emergency department. In the ER she was found to have a heart rate in the 130s and found to be in atrial fibrillation/flutter by EKG. She was given 20 mg of IV diltiazem with no apparent effect on heart rate, though did become mildly hypotensive with blood pressures into the 80s. She was given IV fluids and admitted to the ICU for ongoing management and care. She denies previous history of a arrhythmias and furthermore denies chest pain, shortness of breath , palpitations or any recent alteration in her chronic dyspnea which she attributes to COPD. PFSH Medical History Cholelithiasis (Acute) Depression (Acute) Diabetes (Acute) Fracture of left ankle (Acute) Hyperlipidemia (Acute) Hypertension (Acute) Inguinal hernia (Acute) Lumbar degenerative disc disease (Acute) Osteoarthritis (Acute) Pneumococcal meningitis (Acute) Prolapsed bladder (Acute) Surgical History History of abdominoplasty (Acute) History of gastric bypass (Acute) Social History Smoking Status: Current every day smoker alcohol intake: former additional social history: lives alone Meds Home Medications Medication Instructions Recorded Confirmed Type gabapentin [Neurontin] 600 mg PO Q6H #0 02/01/11 04/12/18 History fluticasone [Flonase Allergy 2 spray INTRANASAL QDAY #0 09/28/17 04/12/18 History Relief] hydrochlorothiazide 1 - 2 cap PO QDAYP PRN #0 09/28/17 04/12/18 History ipratropium-albuterol [Combivent 1 puff TID #0 09/28/17 04/12/18 History Respimat] simvastatin 20 mg PO HS #0 09/28/17 04/12/18 History albuterol sulfate 2 puff INHALATION Q4-6H PRN 04/12/18 04/12/18 History aspirin 81 mg PO DAILY 04/12/18 04/12/18 History hydrocodone-acetaminophen 1 tab PO Q6H PRN 04/12/18 04/12/18 History losartan 50 mg PO DAILY 04/12/18 04/12/18 History metformin [Glucophage] 500 mg PO BIDWM 04/12/18 04/12/18 History oxybutynin chloride 10 mg PO DAILY 04/12/18 04/12/18 History triamcinolone acetonide 1 applic TOPICAL BID 04/12/18 04/12/18 History triamcinolone acetonide 1 dose TOPICAL BID 04/12/18 04/12/18 History ursodiol 300 mg PO BID 04/12/18 04/12/18 History Allergies Allergy/AdvReac Type Severity Reaction Status Date / Time captopril [CAPTOPRIL] Allergy Unknown Unverified 03/06/18 12:55 nabumetone [NABUMETONE] Allergy Unknown Unverified 03/06/18 12:55 Review of Systems Review of Systems All systems reviewed & are unremarkable except as noted in HPI and below Genitourinary Genitourinary: Reports urinary frequency and Reports urinary urgency Comments: dysuria Exam Vital Signs (past 8 hours): Vital Signs - 8 hr 3 04/12/18 15:19 04/12/18 15:36 04/12/18 16:08 Temperature 97.4 F L Pulse Rate 140 H 142 H Respiratory Rate 20 Blood Pressure 115/90 H 126/110 H Blood Pressure [Right Arm] Blood Pressure [Right Wrist] Pulse Oximetry 95 3 04/12/18 16:19 04/12/18 16:30 04/12/18 16:37 Temperature Pulse Rate 134 H 132 H 135 H Respiratory Rate 25 H 21 Blood Pressure Blood Pressure [Right Arm] Blood Pressure [Right Wrist] 98/56 L 107/82 H 107/82 H Pulse Oximetry 88 L 89 L 95 3 04/12/18 16:53 04/12/18 16:57 04/12/18 17:08 Temperature Pulse Rate 142 H 129 H 124 H Respiratory Rate 24 16 Blood Pressure 111/96 H Blood Pressure [Right Arm] Blood Pressure [Right Wrist] 111/96 H 88/74 L Pulse Oximetry 96 96 3 04/12/18 17:22 04/12/18 17:31 04/12/18 18:02 Temperature Pulse Rate 138 H 137 H 139 H Respiratory Rate 25 H 25 H Blood Pressure 90/68 Blood Pressure [Right Arm] 90/68 98/77 Blood Pressure [Right Wrist] 90/68 Pulse Oximetry 100 94 3 04/12/18 18:14 Temperature Pulse Rate 135 H Respiratory Rate 26 H Blood Pressure Blood Pressure [Right Arm] Blood Pressure [Right Wrist] Pulse Oximetry Pulse Oximetry 94 Oxygen Delivery Method Nasal Cannula Narrative Exam Narrative: General: Pleasant, obese female, appears mildly dyspneic at rest HEENT: Pupils equal round reactive, extraocular movements intact, mucous membranes pink and moist Neck: Supple, thick Lungs: Clear to auscultation Cardiac: Irregularly irregular, tachycardic without audible murmur Abdomen: Soft, obese, nontender Extremities: Without edema Neurologic: Alert, O oriented to person time and place, with no focal neurologic deficits evident Dermatologic: No rash or skin lesions Objective Labs Result Diagrams: 04/12/18 15:55 04/12/18 15:55 Labs: Laboratory Results - last 24 hr 04/12/18 04/12/18 04/12/18 15:55 15:55 15:55 WBC 9.1 RBC 4.80 Hgb 11.3 L Hct 36.2 MCV 75.3 L MCH 23.4 L MCHC 31.1 RDW 20.1 H Plt Count 294 Neut % (Auto) 68.6 Lymph % (Auto) 18.5 L [place] % (Auto) 9.1 Eos % (Auto) 2.4 Baso % (Auto) 1.4 Neut # (Auto) 6200 H RBC Morphology Normal morphology Anisocytosis 2+ H Microcytosis 1+ H PT 12.0 INR 1.1 Sodium 137 Potassium 4.4 Chloride 96.0 L Carbon Dioxide 33.0 H BUN 14.0 Creatinine 0.70 Estimated GFR > 60.0 BUN/Creatinine Ratio 20.0 Glucose 123 H Calcium 8.5 Total Bilirubin 0.4 AST 18 ALT 19 Alkaline Phosphatase 74 Total Creatine Kinase 57 CK-MB (CK-2) TNP Troponin I < 0.012 Total Protein 6.7 Albumin 3.5 Globulin 3.2 Albumin/Globulin Ratio 1.1 Lipase 38 Imaging Chest x-ray: Radiologist's impression: Borderline cardiomegaly. No failure or pneumonia seen. ECG: Atrial fibrillation/flutter at 135 beats per minute, with no acute ischemic changes Assessment & Plan Plan: Plan: 1. Atrial fibrillation/flutter with rapid ventricular response. Possibly precipitated by a urinary infection there is underlying heart disease. Admit to ICU, initiate IV diltiazem infusion for rate control, monitor on telemetry and follow serial cardiac enzymes to rule out myocardial infarction. Obtain echocardiogram, check TSH, and follow clinically. 2. Acute urinary tract infection. Check procalcitonin and blood cultures. Initiate IV antibiotic therapy. Note she was admitted for UTI in September 2017 and cultured pansensitive E coli. 3. Diabetes mellitus, type 2. Diabetic diet, routine metformin and sliding scale coverage. 4. Hypertension. Hold antihypertensives and monitor. 5. Hyperlipidemia. Continue routine simvastatin. 6. Osteoarthritis, with chronic pain and chronic opioid habituation. Continue routine hydrocodone. 7. DVT prophylaxis: Lovenox. 8. Code status: Full code. 9. Disposition: She has 2 children air, whom she has notified by phone. She normally lives alone. She will require at least 2 midnights of inpatient level care and is admitted to inpatient status.
[2018-04-12] MEDS: ALBUTEROL/IPRATROPIUM 3 ML AMPUL INH (19:45)
[2018-04-12] MEDS: GABAPENTIN 600 MG TABLET PO ×2 (20:38→23:42)
[2018-04-12] MEDS: SODIUM CHLORIDE 0.9% 1,000 ML 125 ML IV (20:39)
[2018-04-12] MEDS: INSULIN ASPART 100 UNIT/ML INSULN PEN SUBCUT (21:00)
[2018-04-12 21:44] LABS: Procalcitonin < 0.05 ng/mL (<0.5)
[2018-04-12] MEDS: SIMVASTATIN 20 MG TABLET PO (22:23)
[2018-04-12] MEDS: URSODIOL 300 MG CAPSULE PO (22:23)
[2018-04-12] MEDS: dilTIAZem 125 MG in DEXTROSE 5 % IN WATER 100 ML 15 ML IV (23:59)
[2018-04-13] VITALS (31 sets, daily range): BP systolic 89–151; BP diastolic 37–115; PULSE 72–123; RESP 16–22; TEMP 36–36.9; O2SAT 86–97
[2018-04-13] MEDS: SODIUM CHLORIDE 0.9% 1,000 ML 125 ML IV (02:42)
[2018-04-13] MEDS: HYDROCODONE/ACET 5/325 TABLET 1 TAB PO ×3 (04:22→19:15)
--- NOTE | 2018-04-13 05:00 | DI.ECHO.S_ITS ---
Echocardiogram Report + + :Name: BAUDILIO GRANT Study Date: 04/13/2018 Height: 66.5 in: :[facility] Exam Location: [facility] Weight: 300 lb : : Gender: Female BSA: 2.4 m2 : :: 1950 Age: 67 yrs BP: 102/63 mmHg: :Reason For Study: NEW A FIB : :Ordering Physician: : :Sophy Gonzales Performed By: Digna Horn : :Referring: SOPHY GONZALES : + + Interpretation Summary The study quality was technically difficult. The left ventricle is normal in size. There is moderate concentric left ventricular hypertrophy. The left ventricular ejection fraction is grossly normal. Left ventricular ejection fraction is estimated to be 55 +/- 5%. There are no obvious focal wall motion abnormalities noted but poor endocardial definition reduces the sensitivity for the detection of such. The right ventricle is mildly dilated. Right ventricular systolic function is borderline reduced. The patient was in atrial flutter with heart rates between 61-109 bpm during the exam. There is no significant valvular heart disease. No other echocardiographic abnormalities seen. The LVH, atrial enlargement and mildly dilated ascending aorta suggest hypertensive heart disease, clinical correlation suggested. Procedure: A two-dimensional transthoracic echocardiogram with color flow and Doppler was performed. The study quality was technically difficult. There is no prior echocardiogram noted for this patient. A contrast injection of Definity was performed to improve assessment of LV function. The patient was in atrial flutter with heart rates between 61-109 bpm during the exam. Left Ventricle: There is moderate concentric left ventricular hypertrophy. The left ventricle is normal in size. The left ventricular ejection fraction is grossly normal. Left ventricular ejection fraction is estimated to be 55 +/- 5%. There are no obvious focal wall motion abnormalities noted but poor endocardial definition reduces the sensitivity for the detection of such. Diastolic function could not be accurately assessed due to atrial fibrillation. Right Ventricle: The right ventricle is mildly dilated. Right ventricular systolic function is borderline reduced. Atria: The left atrium is moderately dilated. The right atrium is moderately dilated. There is no Doppler evidence for an interatrial shunt. Mitral Valve: The mitral valve leaflets appear thickened, but open well. There is mild mitral annular calcification. There is mild mitral regurgitation. Aortic Valve: The aortic valve is trileaflet. There is mild aortic valve sclerosis. Leaflet mobility is mild to moderately reduced. There is trace aortic regurgitation. Tricuspid Valve: The tricuspid valve is normal. There is a trace or physiologic amount of tricuspid regurgitation. Pulmonary artery pressures cannot be estimated because of the lack of a measurable TR jet velocity. Pulmonic Valve: The pulmonic valve is not well visualized. There is a trace or physiologic amount of pulmonic regurgitation. Great Vessels: The aortic root is normal size. The ascending aorta is mildmoderately enlarged. The aortic arch is at the upper limits of normal in size. The pulmonary is not well visualized. The inferior vena cava was not visualized. Pericardium/ Pleura There is no pericardial effusion. There is no pleural effusion. MMode/2D Measurements & Calculations LVIDd: 4.5 cm LVOT diam: 2.4 cm LVIDs: 3.8 cm Ao root diam: 3.7 cm FS: 16.3 % asc Aorta Diam: 4.2 cm EPSS: 0.62 cm Ao Arch Diam (Prox Trans): 3.2 cm IVSd: 1.4 cm LVPWd: 1.2 cm LV mccain. diameter/BSA (cm/m^2): 1.9 LV sys. diameter/BSA (cm/m^2): 1.6 LA A2 area: 34.3 cm2 RA long axis: 6.0 cm LA A4 area: 27.5 cm2 RA area: 28.2 cm2 LA length (vol): 6.9 cm RA vol: 113.2 ml LA vol: 116.0 ml RA : 47.4 ml/m2 LA vol index: 48.6 ml/m2 RVD1 (basal): 5.0 cm RVD2 (mid): 4.0 cm TAPSE: 1.1 cm Doppler Measurements & Calculations Ao V2 max: 131.3 cm/sec LVOT Max Lee: 106.7 cm/sec Ao V2 mean: 95.8 cm/sec LV V1 max P.6 mmHg Ao max P.0 mmHg LV V1 VTI: 20.3 cm Ao mean P.1 mmHg ODILIA(I,D): 3.6 cm2 Ao V2 VTI: 24.7 cm ODILIA(V,D): 3.6 cm2 sev ratio: 0.82 ODILIA indexed to BSA (cm^2/m^2): 1.5 MV E max lee: 145.8 cm/sec PA V2 max: 65.9 cm/sec MV A max lee: 126.7 cm/sec PA V2 mean: 40.0 cm/sec MV E/A: 1.2 PA mean P.77 mmHg Med Peak E' Lee: 8.1 cm/sec PA pr(Accel): 26.6 mmHg E/E' med: 18.0 Lat Peak E' Lee: 9.7 cm/sec E/E' lat: 15.0 E/e' average: 16.5 _ Reading Physician:12:14 PM
[2018-04-13 05:02] LABS: Add Manual Diff / Slide Review NO; Basophils Percent Auto 0.9 % (0-2); Eosinophils Percent Auto 2.9 % (2-4); Hematocrit 35.9 % (36-46); Lymphocytes Percent Auto 26.2 % (25-40); Mean Corpuscular HGB Conc 30.5 % (30-36); Mean Corpuscular Hemoglobin 23.1 PG (26-34); Mean Corpuscular Volume 75.6 fL (80-100); Monocytes Percent Auto 8.9 % (3-14); Neutrophils Absolute Auto 4700 /uL (3000-5900); Neutrophils Percent Auto 61.1 % (50-75); Platelet Count 269 X10^3/uL (150-400); Red Blood Cell Count 4.75 X10^6/uL (4.0-5.2); Red Cell Distribution Width 20.3 % (11.6-14.8); White Blood Cell Count 7.8 X10^3/uL (4.5-11.0)
[2018-04-13] MEDS: dilTIAZem 125 MG in DEXTROSE 5 % IN WATER 100 ML 15 ML IV (05:11)
[2018-04-13 05:23] LABS: Troponin I < 0.012 ng/mL (0.01-0.034)
[2018-04-13] MEDS: ALBUTEROL/IPRATROPIUM 3 ML AMPUL INH ×2 (07:16→19:00)
[2018-04-13] MEDS: GABAPENTIN 600 MG TABLET PO ×3 (07:33→17:44)
[2018-04-13] MEDS: ASPIRIN EC 81 MG TABLET PO (08:13)
[2018-04-13] MEDS: URSODIOL 300 MG CAPSULE PO ×2 (08:13→21:43)
[2018-04-13] MEDS: METFORMIN HCL 500 MG TABLET PO ×2 (08:28→16:54)
[2018-04-13] MEDS: FLUTICASONE 120 SPRAY/16 GM SPRAY.SUSP NASAL (08:28)
[2018-04-13] MEDS: OXYBUTYNIN 5 MG TABLET 10 MG PO (08:28)
[2018-04-13] MEDS: hydroCHLOROthiazide 12.5 MG CAPSULE PO (08:28)
[2018-04-13] MEDS: INSULIN ASPART 100 UNIT/ML INSULN PEN SUBCUT ×3 (08:29→16:57)
--- NOTE | 2018-04-13 10:02 | PM.PN.1 ---
Subjective Interval history: The patient reports no particular complaints. She is found to have mild oxygen desaturation to 88% on room air this morning. She has remained on diltiazem infusion with heart rates in the 70s to 80s, though increasing to the 130s with minimal activity, then reporting shortness of breath and appearing dyspneic. She asks for nicotine patch. Echocardiogram is currently being done. Exam Vital Signs (past 8 hours): Vital Signs - 8 hr 04/13/18 02:30 04/13/18 03:00 04/13/18 04:00 Temperature Pulse Rate 106 H 97 H 87 Respiratory Rate Blood Pressure 93/72 101/66 118/54 L Pulse Oximetry 04/13/18 04:30 04/13/18 05:00 04/13/18 05:11 Temperature 97.8 F Pulse Rate 83 87 93 H Respiratory Rate 20 Blood Pressure 123/64 H 123/64 H 123/64 H Pulse Oximetry 95 04/13/18 06:00 04/13/18 06:54 04/13/18 07:15 Temperature Pulse Rate 90 92 H Respiratory Rate 16 20 Blood Pressure 127/51 H 127/61 H Pulse Oximetry 95 04/13/18 07:19 04/13/18 07:38 04/13/18 08:30 Temperature 97.6 F Pulse Rate 78 77 122 H Respiratory Rate 16 22 19 Blood Pressure 93/37 L 117/74 Pulse Oximetry 97 95 04/13/18 08:40 04/13/18 09:10 04/13/18 09:25 Temperature Pulse Rate Respiratory Rate 17 Blood Pressure Pulse Oximetry 95 86 L 89 L Pulse Oximetry 89 Fraction of Inspired Oxygen 28 SaO2/FiO2 Ratio 339 Oxygen Delivery Method Nasal Cannula Oxygen Flow Rate 2 Narrative Exam Narrative: General: Pleasant, obese female, appears mildly dyspneic at rest HEENT: Pupils equal round reactive, extraocular movements intact, mucous membranes pink and moist Neck: Supple, thick Lungs: Diminished throughout, decreased breath sounds bilateral bases Cardiac: Irregularly irregular, tachycardic without audible murmur Abdomen: Soft, obese, nontender Extremities: Without edema Neurologic: Alert, O oriented to person time and place, with no focal neurologic deficits evident Dermatologic: No rash or skin lesions Objective Labs Result Diagrams: 04/13/18 04:40 04/12/18 15:55 Labs: Laboratory Results - last 24 hr 04/12/18 04/12/18 04/12/18 15:55 15:55 15:55 WBC 9.1 RBC 4.80 Hgb 11.3 L Hct 36.2 MCV 75.3 L MCH 23.4 L MCHC 31.1 RDW 20.1 H Plt Count 294 Neut % (Auto) 68.6 Lymph % (Auto) 18.5 L [place] % (Auto) 9.1 Eos % (Auto) 2.4 Baso % (Auto) 1.4 Neut # (Auto) 6200 H RBC Morphology Normal morphology Anisocytosis 2+ H Microcytosis 1+ H PT 12.0 INR 1.1 Sodium 137 Potassium 4.4 Chloride 96.0 L Carbon Dioxide 33.0 H BUN 14.0 Creatinine 0.70 Estimated GFR > 60.0 BUN/Creatinine Ratio 20.0 Glucose 123 H Calcium 8.5 Total Bilirubin 0.4 AST 18 ALT 19 Alkaline Phosphatase 74 Total Creatine Kinase 57 CK-MB (CK-2) TNP Troponin I < 0.012 B-Natriuretic Peptide Total Protein 6.7 Albumin 3.5 Globulin 3.2 Albumin/Globulin Ratio 1.1 Lipase 38 Procalcitonin Nasal Screen MRSA (PCR) 04/12/18 04/12/18 04/13/18 18:30 21:00 04:40 WBC 7.8 RBC 4.75 Hgb 11.0 L Hct 35.9 L MCV 75.6 L MCH 23.1 L MCHC 30.5 RDW 20.3 H Plt Count 269 Neut % (Auto) 61.1 Lymph % (Auto) 26.2 [place] % (Auto) 8.9 Eos % (Auto) 2.9 Baso % (Auto) 0.9 Neut # (Auto) 4700 RBC Morphology Anisocytosis Microcytosis PT INR Sodium Potassium Chloride Carbon Dioxide BUN Creatinine Estimated GFR BUN/Creatinine Ratio Glucose Calcium Total Bilirubin AST ALT Alkaline Phosphatase Total Creatine Kinase CK-MB (CK-2) Troponin I B-Natriuretic Peptide 191.0 Total Protein Albumin Globulin Albumin/Globulin Ratio Lipase Procalcitonin < 0.05 Nasal Screen MRSA (PCR) Negative for mrsa 04/13/18 04:40 WBC RBC Hgb Hct MCV MCH MCHC RDW Plt Count Neut % (Auto) Lymph % (Auto) [place] % (Auto) Eos % (Auto) Baso % (Auto) Neut # (Auto) RBC Morphology Anisocytosis Microcytosis PT INR Sodium Potassium Chloride Carbon Dioxide BUN Creatinine Estimated GFR BUN/Creatinine Ratio Glucose Calcium Total Bilirubin AST ALT Alkaline Phosphatase Total Creatine Kinase CK-MB (CK-2) Troponin I < 0.012 B-Natriuretic Peptide Total Protein Albumin Globulin Albumin/Globulin Ratio Lipase Procalcitonin Nasal Screen MRSA (PCR) Assessment & Plan Plan: Plan: 1. Atrial fibrillation/flutter with rapid ventricular response. Possibly precipitated by a urinary infection with underlying heart disease. Continue IV diltiazem infusion for rate control, add oral diltiazem and metoprolol, and await echocardiogram, check TSH, and follow clinically. Her CHADS2-VASC score is 5, representing a 7.2% annual risk of stroke. Anticoagulation is advised (her insurance covers warfarin only). Lovenox/warfarin initiated. 2. Acute urinary tract infection. Check procalcitonin and blood cultures. Initiate IV antibiotic therapy. Note she was admitted for UTI in September 2017 and cultured pansensitive E coli. 3. Acute hypoxic respiratory failure, possibly due to mild acute diastolic congestive heart failure due to atrial fibrillation with rapid ventricular response, superimposed on chronic respiratory failure due to COPD. Administer oxygen and monitor with diuresis. 4. Diabetes mellitus, type 2. Diabetic diet, routine metformin and sliding scale coverage. 5. Hypertension. Hold antihypertensives and monitor. 6. Hyperlipidemia. Continue routine simvastatin. 7. Osteoarthritis, with chronic pain and chronic opioid habituation. Continue routine hydrocodone. 8. Chronic tobacco use. Cessation is advised. Provide nicotine patch. 9. DVT prophylaxis: Lovenox. 10. Code status: Full code. 10. Disposition: She has 2 children air, whom she has notified by phone. She normally lives alone. She will require at least 2 midnights of inpatient level care and is admitted to inpatient status. Quality VTE Deep Vein Thrombosis/Pulmonary Embolism Present on Admission: No
--- NOTE | 2018-04-13 10:16 | P.PN_ITS ---
Subjective Interval history: The patient reports no particular complaints. She is found to have mild oxygen desaturation to 88% on room air this morning. She has remained on diltiazem infusion with heart rates in the 70s to 80s, though increasing to the 130s with minimal activity, then reporting shortness of breath and appearing dyspneic. She asks for nicotine patch. Echocardiogram is currently being done. Exam Vital Signs (past 8 hours): Vital Signs - 8 hr 3 04/13/18 02:30 04/13/18 03:00 04/13/18 04:00 Temperature Pulse Rate 106 H 97 H 87 Respiratory Rate Blood Pressure 93/72 101/66 118/54 L Pulse Oximetry 3 04/13/18 04:30 04/13/18 05:00 04/13/18 05:11 Temperature 97.8 F Pulse Rate 83 87 93 H Respiratory Rate 20 Blood Pressure 123/64 H 123/64 H 123/64 H Pulse Oximetry 95 3 04/13/18 06:00 04/13/18 06:54 04/13/18 07:15 Temperature Pulse Rate 90 92 H Respiratory Rate 16 20 Blood Pressure 127/51 H 127/61 H Pulse Oximetry 95 3 04/13/18 07:19 04/13/18 07:38 04/13/18 08:30 Temperature 97.6 F Pulse Rate 78 77 122 H Respiratory Rate 16 22 19 Blood Pressure 93/37 L 117/74 Pulse Oximetry 97 95 3 04/13/18 08:40 04/13/18 09:10 04/13/18 09:25 Temperature Pulse Rate Respiratory Rate 17 Blood Pressure Pulse Oximetry 95 86 L 89 L Pulse Oximetry 89 Fraction of Inspired Oxygen 28 SaO2/FiO2 Ratio 339 Oxygen Delivery Method Nasal Cannula Oxygen Flow Rate 2 Narrative Exam Narrative: General: Pleasant, obese female, appears mildly dyspneic at rest HEENT: Pupils equal round reactive, extraocular movements intact, mucous membranes pink and moist Neck: Supple, thick Lungs: Diminished throughout, decreased breath sounds bilateral bases Cardiac: Irregularly irregular, tachycardic without audible murmur Abdomen: Soft, obese, nontender Extremities: Without edema Neurologic: Alert, O oriented to person time and place, with no focal neurologic deficits evident Dermatologic: No rash or skin lesions Objective Labs Result Diagrams: 04/13/18 04:40 04/12/18 15:55 Labs: Laboratory Results - last 24 hr 05/18/18 05/18/18 05/18/18 15:55 15:55 15:55 WBC 9.1 RBC 4.80 Hgb 11.3 L Hct 36.2 MCV 75.3 L MCH 23.4 L MCHC 31.1 RDW 20.1 H Plt Count 294 Neut % (Auto) 68.6 Lymph % (Auto) 18.5 L [place] % (Auto) 9.1 Eos % (Auto) 2.4 Baso % (Auto) 1.4 Neut # (Auto) 6200 H RBC Morphology Normal morphology Anisocytosis 2+ H Microcytosis 1+ H PT 12.0 INR 1.1 Sodium 137 Potassium 4.4 Chloride 96.0 L Carbon Dioxide 33.0 H BUN 14.0 Creatinine 0.70 Estimated GFR > 60.0 BUN/Creatinine Ratio 20.0 Glucose 123 H Calcium 8.5 Total Bilirubin 0.4 AST 18 ALT 19 Alkaline Phosphatase 74 Total Creatine Kinase 57 CK-MB (CK-2) TNP Troponin I < 0.012 B-Natriuretic Peptide Total Protein 6.7 Albumin 3.5 Globulin 3.2 Albumin/Globulin Ratio 1.1 Lipase 38 Procalcitonin Nasal Screen MRSA (PCR) 04/12/18 04/12/18 04/13/18 18:30 21:00 04:40 WBC 7.8 RBC 4.75 Hgb 11.0 L Hct 35.9 L MCV 75.6 L MCH 23.1 L MCHC 30.5 RDW 20.3 H Plt Count 269 Neut % (Auto) 61.1 Lymph % (Auto) 26.2 [place] % (Auto) 8.9 Eos % (Auto) 2.9 Baso % (Auto) 0.9 Neut # (Auto) 4700 RBC Morphology Anisocytosis Microcytosis PT INR Sodium Potassium Chloride Carbon Dioxide BUN Creatinine Estimated GFR BUN/Creatinine Ratio Glucose Calcium Total Bilirubin AST ALT Alkaline Phosphatase Total Creatine Kinase CK-MB (CK-2) Troponin I B-Natriuretic Peptide 191.0 Total Protein Albumin Globulin Albumin/Globulin Ratio Lipase Procalcitonin < 0.05 Nasal Screen MRSA (PCR) Negative for mrsa 04/13/18 04:40 WBC RBC Hgb Hct MCV MCH MCHC RDW Plt Count Neut % (Auto) Lymph % (Auto) [place] % (Auto) Eos % (Auto) Baso % (Auto) Neut # (Auto) RBC Morphology Anisocytosis Microcytosis PT INR Sodium Potassium Chloride Carbon Dioxide BUN Creatinine Estimated GFR BUN/Creatinine Ratio Glucose Calcium Total Bilirubin AST ALT Alkaline Phosphatase Total Creatine Kinase CK-MB (CK-2) Troponin I < 0.012 B-Natriuretic Peptide Total Protein Albumin Globulin Albumin/Globulin Ratio Lipase Procalcitonin Nasal Screen MRSA (PCR) Assessment & Plan Plan: Plan: 1. Atrial fibrillation/flutter with rapid ventricular response. Possibly precipitated by a urinary infection with underlying heart disease. Continue IV diltiazem infusion for rate control, add oral diltiazem and metoprolol, and await echocardiogram, check TSH, and follow clinically. Her CHADS2-VASC score is 5, representing a 7.2% annual risk of stroke. Anticoagulation is advised ( her insurance covers warfarin only). Lovenox/warfarin initiated. 2. Acute urinary tract infection. Check procalcitonin and blood cultures. Initiate IV antibiotic therapy. Note she was admitted for UTI in September 2017 and cultured pansensitive E coli. 3. Acute hypoxic respiratory failure, possibly due to mild acute diastolic congestive heart failure due to atrial fibrillation with rapid ventricular response, superimposed on chronic respiratory failure due to COPD. Administer oxygen and monitor with diuresis. 4. Diabetes mellitus, type 2. Diabetic diet, routine metformin and sliding scale coverage. 5. Hypertension. Hold antihypertensives and monitor. 6. Hyperlipidemia. Continue routine simvastatin. 7. Osteoarthritis, with chronic pain and chronic opioid habituation. Continue routine hydrocodone. 8. Chronic tobacco use. Cessation is advised. Provide nicotine patch. 9. DVT prophylaxis: Lovenox. 10. Code status: Full code. 10. Disposition: She has 2 children air, whom she has notified by phone. She normally lives alone. She will require at least 2 midnights of inpatient level care and is admitted to inpatient status. Quality VTE Deep Vein Thrombosis/Pulmonary Embolism Present on Admission: No
[2018-04-13] MEDS: FUROSEMIDE 40 MG/4 ML VIAL IV (10:27)
[2018-04-13] MEDS: dilTIAZem 30 MG TABLET 60 MG PO ×3 (10:40→23:59)
[2018-04-13] MEDS: METOPROLOL 25 MG TABLET PO ×2 (10:41→17:44)
[2018-04-13] MEDS: NICOTINE 14 PATCH 14 MG TOP (10:41)
[2018-04-13] MEDS: ENOXAPARIN 80 MG/0.8 ML SYRINGE 160 MG SUBCUT ×2 (10:41→21:42)
[2018-04-13 10:56] LABS: Thyroid Stimulating Hormone 1.96 uIU/mL (0.47-4.68)
--- NOTE | 2018-04-13 13:37 | PC.NURSE ---
on rounds at bedside at 1315. Reported pt with low BPs, held AM losartan. MD aware and orders received for BP/HR parameters for metoprolol and diltiazem. Updated MAR to include these parameters under dose instruction. Pt denies dizziness, lightheadedness or any symptoms low BP.
--- NOTE | 2018-04-13 14:08 | CM.DANOTE ---
DCP/Assessment: Reviewed chart. Patient is a 67yr old female admitted to [facility] with possible UTI/bladder infection. PCP is Dr. Saini. Primary payor is 1)Medicare 2)[facility]. Met with patient explained CM/SW role. Patient's daughter/Brionna at bedside. Patient sitting in recliner, O2 in place. Patient alert and oriented at time of visit. Pt. actively smokes and recently has had nicotine patch placed. Patient resides alone in apartment in [place]. Pt. uses walker at baseline and reports that she uses public transportation or has family take her to/from errands and appointments. Pt. unsure on whether or not she has CHID[facility]? but does report that she does have caregivers from [facility] [employer] approximately 40hrs per month. At this time d/c needs unknown. Notified patient and family that CM team would continue to follow for d/c planning. Patient appreciative and agreeable. P: Follow closely for d/c planning needs. Pt. currently on 02, patient denies using at home. Patient is an active smoker. EMANUEL Maria
[2018-04-13] MEDS: WARFARIN 5 MG TABLET PO (16:55)
[2018-04-13] MEDS: CEFTRIAXONE 1 GM/50 ML FROZ.PIGGY IV (17:49)
[2018-04-13] MEDS: SODIUM CHLORIDE 0.9% 250 ML 21 ML IV (17:54)
[2018-04-13] MEDS: SIMVASTATIN 20 MG TABLET PO (21:43)
[2018-04-14] VITALS (28 sets, daily range): BP systolic 97–146; BP diastolic 51–96; PULSE 68–134; RESP 16–22; TEMP 36.1–37; O2SAT 86–97
[2018-04-14] MEDS: METOPROLOL 25 MG TABLET PO ×5 (00:01→23:33)
[2018-04-14] MEDS: GABAPENTIN 600 MG TABLET PO ×5 (00:01→23:34)
[2018-04-14] MEDS: HYDROCODONE/ACET 5/325 TABLET 1 TAB PO (01:18)
[2018-04-14 05:32] LABS: Add Manual Diff / Slide Review NO; Eosinophils Percent Auto 2.1 % (2-4); Hematocrit 34.6 % (36-46); Hemoglobin 10.7 g/dL (12.0-16.0); Lymphocytes Percent Auto 14.2 % (25-40); Mean Corpuscular HGB Conc 31.1 % (30-36); Mean Corpuscular Hemoglobin 23.3 PG (26-34); Monocytes Percent Auto 6.7 % (3-14); Neutrophils Absolute Auto 6400 /uL (3000-5900); Platelet Count 258 X10^3/uL (150-400); Red Blood Cell Count 4.61 X10^6/uL (4.0-5.2); Red Cell Distribution Width 20.1 % (11.6-14.8); White Blood Cell Count 8.4 X10^3/uL (4.5-11.0)
[2018-04-14 05:41] LABS: INR 1.2 (0.9-1.3); Prothrombin Time 12.7 SECONDS (10.1-12.7)
[2018-04-14 05:45] LABS: BUN Creatinine Ratio 31.7 (6-22); Calcium 8.9 mg/dL (8.4-10.2); Estimated Glomerular Filt Rate > 60.0 mL/min (>60); Glucose 155 mg/dL (80-110); HEMOLYSIS < 15 (0-50); Potassium 3.9 mmol/L (3.4-5.1); Sodium 134 mmol/L (137-145)
[2018-04-14 05:50] LABS: Enterococcus species Not Detected (Not Detect); Listeria monocytogenes Not Detected (Not Detect); Staphylococcus species Not Detected (Not Detect); Streptococcus species Not Detected (Not Detect)
[2018-04-14 05:51] LABS: Acinetobacter baumannii Not Detected (Not Detect); Candida albicans Not Detected (Not Detect); Candida glabrata Not Detected (Not Detect); Candida krusei Not Detected (Not Detect); Candida parapsilosis Not Detected (Not Detect); Candida tropicalis Not Detected (Not Detect); E. coli Not Detected (Not Detect); Enterobacter cloacae complex Not Detected (Not Detect); Enterobacteriaceae species Not Detected (Not Detect); Haemophilus influenzae Not Detected (Not Detect); Neisseria meningitidis Not Detected (Not Detect); Proteus species Not Detected (Not Detect); Pseudomonas aeruginosa Not Detected (Not Detect); Serratia marcescens Not Detected (Not Detect); Streptococcus agalactiae (Gr B Not Detected (Not Detect); Streptococcus pneumonia Not Detected (Not Detect); Streptococcus pyogenes (Gr A) Not Detected (Not Detect)
[2018-04-14 05:58] LABS: Anisocytosis 2+
[2018-04-14] MEDS: dilTIAZem 30 MG TABLET 60 MG PO ×4 (06:15→23:35)
[2018-04-14] MEDS: CALCIUM CARBONATE 500 MG TAB PO (06:15)
[2018-04-14] MEDS: ALBUTEROL/IPRATROPIUM 3 ML AMPUL INH ×2 (07:00→18:56)
[2018-04-14] MEDS: URSODIOL 300 MG CAPSULE PO ×2 (09:21→20:38)
[2018-04-14] MEDS: ASPIRIN EC 81 MG TABLET PO (09:21)
[2018-04-14] MEDS: hydroCHLOROthiazide 12.5 MG CAPSULE PO (09:21)
[2018-04-14] MEDS: LOSARTAN 50 MG TABLET PO (09:22)
[2018-04-14] MEDS: OXYBUTYNIN 5 MG TABLET 10 MG PO (09:22)
[2018-04-14] MEDS: METFORMIN HCL 500 MG TABLET PO ×2 (09:22→16:54)
[2018-04-14] MEDS: NICOTINE 14 PATCH 14 MG TOP (09:24)
[2018-04-14] MEDS: FLUTICASONE 120 SPRAY/16 GM SPRAY.SUSP NASAL (09:24)
[2018-04-14] MEDS: INSULIN ASPART 100 UNIT/ML INSULN PEN SUBCUT ×2 (09:24→12:55)
[2018-04-14] MEDS: ENOXAPARIN 80 MG/0.8 ML SYRINGE 160 MG SUBCUT ×2 (09:24→20:37)
--- NOTE | 2018-04-14 10:32 | PC.SBAR ---
Addendum entered by Chucho Ramírez R.N. 04/14/18 12:47: Called to MD to clarify dose for IV digoxin 0.5 mcg. MD states to give 0.5mg Digoxin IV Now x1 dose. TORB and placed in [facility]. Pharmacy notified. Original Note: Addendum entered by Chucho Ramírez R.N. 04/14/18 12:17: MD on rounds 1215. Discussed pt condition and reiterated the above assessment findings. Md states he will transfer pt to floor care with telemetry and revise medication regimen r/t soft BPs and elevated HR. Plan to consult PT/OT. Plan to keep pt overnight and reevaluate d/c plan tomorrow. Pt feels that she is ready to go home today but understands the need and reasoning for continued hospitalization. Paged to [facility]. Received call back about 1150. Notified Digna that echo results were not in [facility] or PACs (as stated by Dr. Gonzales). Digna is working on getting in contact with [facility] to fax a report to . Dr. Gonzales is aware. Original Note: SITUATION: SPO2 noted at 82% while sleeping. Increased HRs up to 130 bpm with minimal exertion. [] BACKGROUND: Hospital day 2 admitted for new onset Afib RVR with PMH significant for COPD. Pt is a current every day smoker. [] ASSESSMENT: Pt awakens to verbal stimuli. She is forgetful but answers orientation questions appropriately. SPO2 increases to 91% while awake. Denies respiratory distress. With coughing or minimal exertion such [place] [facility] increases up to 130. HR improves to 80-90s within 2-3 minutes. Remains A fib. She denies any feelings of dizziness or lightheadedness. She denies chest pain, palpitations, chest pressure. [] RECOMMENDATION: Placed pt on 2LPM while sleeping and monitoring continuous pulse oximetry. SpO2 90-96% during sleep with oxygen. Notified Dr. Gonzales of oxygenation needs as well as increased HR with minimal exertion. Dr. Gonzales would like to monitor her HR and pulse oximetry while walking. [] RESPONSE: Placed yellow socks on and provided pt with a FWW and instructions to walk around nurses station without oxygen. SBA/CGA provided during walking. She was able to walk approximately 50 ft and became tachypneic with RR labored into the 30s. Telemetry shows Afib RVR with a rate of 156. Assisted pt to sit in w/c. SPO2 noted to be 83%. After resting for approx 3 minutes, was able to control breathing with RR 22 and SPO2 91%. HR decreases to 100-105. To note, gait is unsteady and posture is poor. She is not compliant with instruction in proper use of walker and proper posture. She states that she feels safer leaning frontwards over the walker and looking down. She acknowledges and verbalizes understanding of safe mobility techniques, proper gait/posture, and proper use of walker but declines to return demonstration. []
--- NOTE | 2018-04-14 12:35 | PM.PN.1 ---
Subjective Interval history: Echocardiography report is not back for technical reasons. The patient becomes hypoxic walking short distances, is very weak and desaturates into the 80s percent range off oxygen. She states she feels fine and wants to go home. Heart rates are in the 100-110s at rest while sleeping and up to the 130s with exertion. Exam Vital Signs (past 8 hours): Vital Signs - 8 hr 04/14/18 05:06 04/14/18 06:15 04/14/18 06:20 Temperature 97.7 F Pulse Rate 94 H Respiratory Rate 19 Blood Pressure 105/73 105/73 Pulse Oximetry 96 95 04/14/18 07:00 04/14/18 07:02 04/14/18 07:28 Temperature Pulse Rate 68 Respiratory Rate 16 Blood Pressure Pulse Oximetry 96 95 95 04/14/18 08:05 04/14/18 09:22 04/14/18 10:20 Temperature 97.2 F L Pulse Rate 75 73 Respiratory Rate 16 Blood Pressure 97/63 110/71 Pulse Oximetry 90 L 88 L 04/14/18 10:28 04/14/18 11:08 04/14/18 11:46 Temperature 97.1 F L Pulse Rate 110 H Respiratory Rate 16 Blood Pressure 101/59 L Pulse Oximetry 86 L 91 93 Pulse Oximetry 93 Fraction of Inspired Oxygen 21 SaO2/FiO2 Ratio 452 Oxygen Delivery Method Room Air Oxygen Flow Rate 1 Narrative Exam Narrative: General: Pleasant, obese female, appears mildly dyspneic at rest HEENT: Pupils equal round reactive, extraocular movements intact, mucous membranes pink and moist Neck: Supple, thick Lungs: Diminished throughout, decreased breath sounds bilateral bases Cardiac: Irregularly irregular, tachycardic without audible murmur Abdomen: Soft, obese, nontender Extremities: Without edema Neurologic: Alert, O oriented to person time and place, with no focal neurologic deficits evident Dermatologic: No rash or skin lesions Objective Labs Result Diagrams: 04/14/18 05:16 04/14/18 05:16 Labs: Laboratory Results - last 24 hr 04/14/18 04/14/18 04/14/18 04:30 05:16 05:16 WBC 8.4 RBC 4.61 Hgb 10.7 L Hct 34.6 L MCV 75.0 L MCH 23.3 L MCHC 31.1 RDW 20.1 H Plt Count 258 Neut % (Auto) 76.0 H Lymph % (Auto) 14.2 L [place] % (Auto) 6.7 Eos % (Auto) 2.1 Baso % (Auto) 1.0 Neut # (Auto) 6400 H RBC Morphology Not Reportable Anisocytosis 2+ H PT 12.7 INR 1.2 Sodium Potassium Chloride Carbon Dioxide BUN Creatinine Estimated GFR BUN/Creatinine Ratio Glucose Calcium A. baumannii (PCR) Not detected [place] albicans (PCR) Not detected C. glabrata (PCR) Not detected C. krusei (PCR) Not detected C. parapsilosis (PCR) Not detected C. tropicalis (PCR) Not detected Enterobacteriac sp PCR Not detected E. cloacae complex PCR Not detected Enterococcus sp PCR Not detected E. coli (PCR) Not detected H. influenzae (PCR) Not detected Klebsiella oxytoca PCR Not detected Klebsiella pneumoniae Not detected List. monocytogenes PCR Not detected N. meningitidis (PCR) Not detected Proteus species (PCR) Not detected Serratia marcescens PCR Not detected Staphylococcus sp PCR Not detected Staph aureus (PCR) Not detected mecA-Methicil Res Gene Not Reportable Streptococcus sp PCR Not detected Group A Strep (PCR) Not detected Strep agalactiae (PCR) Not detected Strep pneumoniae (PCR) Not detected P. aeruginosa (PCR) Not detected [place]/B-Vanco Res Genes Not Reportable KPC-Carbap Res Gene PCR Not Reportable 04/14/18 05:16 WBC RBC Hgb Hct MCV MCH MCHC RDW Plt Count Neut % (Auto) Lymph % (Auto) [place] % (Auto) Eos % (Auto) Baso % (Auto) Neut # (Auto) RBC Morphology Anisocytosis PT INR Sodium 134 L Potassium 3.9 Chloride 95.0 L Carbon Dioxide 32.0 BUN 19.0 H Creatinine 0.60 Estimated GFR > 60.0 BUN/Creatinine Ratio 31.7 H Glucose 155 H Calcium 8.9 A. baumannii (PCR) [place] albicans (PCR) C. glabrata (PCR) C. krusei (PCR) C. parapsilosis (PCR) C. tropicalis (PCR) Enterobacteriac sp PCR E. cloacae complex PCR Enterococcus sp PCR E. coli (PCR) H. influenzae (PCR) Klebsiella oxytoca PCR Klebsiella pneumoniae List. monocytogenes PCR N. meningitidis (PCR) Proteus species (PCR) Serratia marcescens PCR Staphylococcus sp PCR Staph aureus (PCR) mecA-Methicil Res Gene Streptococcus sp PCR Group A Strep (PCR) Strep agalactiae (PCR) Strep pneumoniae (PCR) P. aeruginosa (PCR) [place]/B-Vanco Res Genes KPC-Carbap Res Gene PCR Assessment & Plan Plan: Plan: 1. Atrial fibrillation/flutter with rapid ventricular response. Rate adequately controlled on diltiazem 60 mg every 6 hr plus metoprolol 25 mg every 6 hr. Add digoxin 04/14/2018. Check digoxin level on 04/16/2018. Possibly precipitated by a urinary infection with underlying heart disease. Await echocardiogram, and follow clinically. TSH was normal. Her CHADS2-VASC score is 5, representing a 7.2% annual risk of stroke. Anticoagulation is advised (her insurance covers warfarin only). Lovenox/warfarin initiated. Continue to monitor pro times. 2. Acute urinary tract infection due to gram-negative bacilli. Continue antibiotic therapy. Note she was admitted for UTI in September 2017 and cultured pansensitive E coli. Follow cultures and adjust as appropriate. Blood cultures negative to date. Procalcitonin was normal on admission. 3. Acute hypoxic respiratory failure, possibly due to mild acute diastolic congestive heart failure due to atrial fibrillation with rapid ventricular response, superimposed on chronic respiratory failure due to COPD. RT requested for evaluation. Consider sleep apnea. However, she flatly refuses to undergo a sleep study or undergo any treatment. BNP was fairly unremarkable at 194. 4. Diabetes mellitus, type 2. Diabetic diet, routine metformin and sliding scale coverage. 5. Hypertension. Hold antihypertensives and monitor. 6. Hyperlipidemia. Continue routine simvastatin. 7. Osteoarthritis, with chronic pain and chronic opioid habituation. Continue routine hydrocodone. 8. Chronic tobacco use. Cessation is advised. Provide nicotine patch. 9. Weakness. Consult PT and OT. She may have some underlying cognitive impairment though this is difficult to assess given her other medical issues. 10. Microcytic anemia. Obtain iron and stool studies. 11. DVT prophylaxis: Lovenox. 12. Code status: Full code. 13. Disposition: She has 2 children in the area. She normally lives alone. She will likely benefit from retirement facility placement. Quality VTE Deep Vein Thrombosis/Pulmonary Embolism Present on Admission: No
--- NOTE | 2018-04-14 12:42 | P.PN_ITS ---
Subjective Interval history: Echocardiography report is not back for technical reasons. The patient becomes hypoxic walking short distances, is very weak and desaturates into the 80s percent range off oxygen. She states she feels fine and wants to go home. Heart rates are in the 100-110s at rest while sleeping and up to the 130s with exertion. Exam Vital Signs (past 8 hours): Vital Signs - 8 hr 3 04/14/18 05:06 04/14/18 06:15 04/14/18 06:20 Temperature 97.7 F Pulse Rate 94 H Respiratory Rate 19 Blood Pressure 105/73 105/73 Pulse Oximetry 96 95 3 04/14/18 07:00 04/14/18 07:02 04/14/18 07:28 Temperature Pulse Rate 68 Respiratory Rate 16 Blood Pressure Pulse Oximetry 96 95 95 3 04/14/18 08:05 04/14/18 09:22 04/14/18 10:20 Temperature 97.2 F L Pulse Rate 75 73 Respiratory Rate 16 Blood Pressure 97/63 110/71 Pulse Oximetry 90 L 88 L 3 04/14/18 10:28 04/14/18 11:08 04/14/18 11:46 Temperature 97.1 F L Pulse Rate 110 H Respiratory Rate 16 Blood Pressure 101/59 L Pulse Oximetry 86 L 91 93 Pulse Oximetry 93 Fraction of Inspired Oxygen 21 SaO2/FiO2 Ratio 452 Oxygen Delivery Method Room Air Oxygen Flow Rate 1 Narrative Exam Narrative: General: Pleasant, obese female, appears mildly dyspneic at rest HEENT: Pupils equal round reactive, extraocular movements intact, mucous membranes pink and moist Neck: Supple, thick Lungs: Diminished throughout, decreased breath sounds bilateral bases Cardiac: Irregularly irregular, tachycardic without audible murmur Abdomen: Soft, obese, nontender Extremities: Without edema Neurologic: Alert, O oriented to person time and place, with no focal neurologic deficits evident Dermatologic: No rash or skin lesions Objective Labs Result Diagrams: 04/14/18 05:16 04/14/18 05:16 Labs: Laboratory Results - last 24 hr 04/14/18 04/14/18 04/14/18 04:30 05:16 05:16 WBC 8.4 RBC 4.61 Hgb 10.7 L Hct 34.6 L MCV 75.0 L MCH 23.3 L MCHC 31.1 RDW 20.1 H Plt Count 258 Neut % (Auto) 76.0 H Lymph % (Auto) 14.2 L [place] % (Auto) 6.7 Eos % (Auto) 2.1 Baso % (Auto) 1.0 Neut # (Auto) 6400 H RBC Morphology Not Reportable Anisocytosis 2+ H PT 12.7 INR 1.2 Sodium Potassium Chloride Carbon Dioxide BUN Creatinine Estimated GFR BUN/Creatinine Ratio Glucose Calcium A. baumannii (PCR) Not detected [place] albicans (PCR) Not detected C. glabrata (PCR) Not detected C. krusei (PCR) Not detected C. parapsilosis (PCR) Not detected C. tropicalis (PCR) Not detected Enterobacteriac sp PCR Not detected E. cloacae complex PCR Not detected Enterococcus sp PCR Not detected E. coli (PCR) Not detected H. influenzae (PCR) Not detected Klebsiella oxytoca PCR Not detected Klebsiella pneumoniae Not detected List. monocytogenes PCR Not detected N. meningitidis (PCR) Not detected Proteus species (PCR) Not detected Serratia marcescens PCR Not detected Staphylococcus sp PCR Not detected Staph aureus (PCR) Not detected mecA-Methicil Res Gene Not Reportable Streptococcus sp PCR Not detected Group A Strep (PCR) Not detected Strep agalactiae (PCR) Not detected Strep pneumoniae (PCR) Not detected P. aeruginosa (PCR) Not detected Sanford/B-Vanco Res Genes Not Reportable KPC-Carbap Res Gene PCR Not Reportable 04/14/18 05:16 WBC RBC Hgb Hct MCV MCH MCHC RDW Plt Count Neut % (Auto) Lymph % (Auto) [place] % (Auto) Eos % (Auto) Baso % (Auto) Neut # (Auto) RBC Morphology Anisocytosis PT INR Sodium 134 L Potassium 3.9 Chloride 95.0 L Carbon Dioxide 32.0 BUN 19.0 H Creatinine 0.60 Estimated GFR > 60.0 BUN/Creatinine Ratio 31.7 H Glucose 155 H Calcium 8.9 A. baumannii (PCR) [place] albicans (PCR) C. glabrata (PCR) C. krusei (PCR) C. parapsilosis (PCR) C. tropicalis (PCR) Enterobacteriac sp PCR E. cloacae complex PCR Enterococcus sp PCR E. coli (PCR) H. influenzae (PCR) Klebsiella oxytoca PCR Klebsiella pneumoniae List. monocytogenes PCR N. meningitidis (PCR) Proteus species (PCR) Serratia marcescens PCR Staphylococcus sp PCR Staph aureus (PCR) mecA-Methicil Res Gene Streptococcus sp PCR Group A Strep (PCR) Strep agalactiae (PCR) Strep pneumoniae (PCR) P. aeruginosa (PCR) Sanford/B-Vanco Res Genes KPC-Carbap Res Gene PCR Assessment & Plan Plan: Plan: 1. Atrial fibrillation/flutter with rapid ventricular response. Rate adequately controlled on diltiazem 60 mg every 6 hr plus metoprolol 25 mg every 6 hr. Add digoxin 04/14/2018. Check digoxin level on 04/16/2018. Possibly precipitated by a urinary infection with underlying heart disease. Await echocardiogram, and follow clinically. TSH was normal. Her CHADS2-VASC score is 5, representing a 7.2% annual risk of stroke. Anticoagulation is advised ( her insurance covers warfarin only). Lovenox/warfarin initiated. Continue to monitor pro times. 2. Acute urinary tract infection due to gram-negative bacilli. Continue antibiotic therapy. Note she was admitted for UTI in September 2017 and cultured pansensitive E coli. Follow cultures and adjust as appropriate. Blood cultures negative to date. Procalcitonin was normal on admission. 3. Acute hypoxic respiratory failure, possibly due to mild acute diastolic congestive heart failure due to atrial fibrillation with rapid ventricular response, superimposed on chronic respiratory failure due to COPD. RT requested for evaluation. Consider sleep apnea. However, she flatly refuses to undergo a sleep study or undergo any treatment. BNP was fairly unremarkable at 194. 4. Diabetes mellitus, type 2. Diabetic diet, routine metformin and sliding scale coverage. 5. Hypertension. Hold antihypertensives and monitor. 6. Hyperlipidemia. Continue routine simvastatin. 7. Osteoarthritis, with chronic pain and chronic opioid habituation. Continue routine hydrocodone. 8. Chronic tobacco use. Cessation is advised. Provide nicotine patch. 9. Weakness. Consult PT and OT. She may have some underlying cognitive impairment though this is difficult to assess given her other medical issues. 10. Microcytic anemia. Obtain iron and stool studies. 11. DVT prophylaxis: Lovenox. 12. Code status: Full code. 13. Disposition: She has 2 children in the area. She normally lives alone. She will likely benefit from group home facility placement. Quality VTE Deep Vein Thrombosis/Pulmonary Embolism Present on Admission: No
[2018-04-14] MEDS: DIGOXIN 500 MCG/2 ML AMPUL IV (12:52)
[2018-04-14 13:30] LABS: HEMOLYSIS < 15 (0-50); Iron 26 ug/dL (37-170)
[2018-04-14] MEDS: ALBUTEROL 2.5 MG/3 ML NEB INH (13:35)
[2018-04-14 13:41] LABS: Percent Iron Saturation 5 % (15-50); Total Iron Binding Capacity 477 ug/mL (265-497); Transferrin 371 mg/dL (206-381)
[2018-04-14 13:56] LABS: Ferritin 9.8 ng/mL (11.1-264)
--- NOTE | 2018-04-14 16:21 | PT.IIE ---
Physical Therapy Inpatient Evaluation/Re-Eval M1 PT/OT-IP Prior Functional Status Start: 04/14/18 16:09 Freq: Status: Active Protocol: Document 04/14/18 15:30 RCC (Rec: 04/14/18 16:21 RCC [email or web address]) Medical Review Prior Functional Status Medical History Reviewed Yes Mobility and Gait Modified indep. household distances with 4WW Activities of Daily Living and IADL's Occasional assist with daily chores from CG, able to shower modified indep. Social History Household Members none Living Arrangements House Number of Floors (Floors) One Floor Number of Stairs To Enter/Railing? 0 Home Environment Tub/Shower Home Equipment Four Wheel Walker Additional Social History Comment CG 6 hrs/week ([facility]). Not on home O2. M2 PT-IP Current Condition Start: 04/14/18 16:09 Freq: Status: Active Protocol: Document 04/14/18 15:30 RCC (Rec: 04/14/18 16:21 RCC [email or web address]) Physical Therapy Current Condition Current Condition Evaluation Date 04/14/18 Treatment Diagnosis Impaired activity tolerance; A -Fib with RVR Onset Date 04/12/18 M3 PT-IP Subjective Start: 04/14/18 16:09 Freq: Status: Active Protocol: Document 04/14/18 15:30 RCC (Rec: 04/14/18 16:21 RCC [email or web address]) Subjective Physical Therapy Visit Type Type Initial Evaluation Visit Start Time 14:50 Visit Stop Time 15:30 Total Visit Minutes 40 Number of JUNIOR SYSTEMS ANALYST Visits 0 Physical Therapy Visit Comments Patient Comments Pt reports she just wants to go home. Patient/Caregiver Goals to go home Therapy Pain Assessment Pain When Pain Assessed During Mobility Location Back Description Aching Stabbing Pain Behaviors Moaning Pain Management Techniques Modification of Treatment M4 PT-IP Mobility and Gait Start: 04/14/18 16:09 Freq: Status: Active Protocol: Document 04/14/18 15:30 RCC (Rec: 04/14/18 16:21 RCC [email or web address]) PT-Bed Mobility Assessment Supine to Sit Supine to Sit Minimal Assistance Head of Bed Elevated Sit to Supine Sit to Supine Minimal Assistance Head of Bed Elevated Scooting Scooting to Edge of Bed Standby Assistance PT-Transfer Assessment Sit to and From Stand Sit to and from Stand Minimal Assistance 1 Person Assistance Use of Upper Extremities Equipment Transfer Assistive Device Gait Belt Front Wheeled Walker Transfers Transfer Destination Bedside Commode Transfer Technique Stand Step Pivot Transfer Ability Level of Assist Standby Assistance Comments Mobility Comments Transfer bed to BSC, pt urinated, OR MANAGER aware. Gait Assessment Gait Gait Assistance Required: Contact Guard Assist Distance (Feet) (feet) 50 Assistive Devices Assistive Device Gait Belt Front Wheeled Walker Gait Deviations General Gait Pattern Antalgic Decreased Feet Clearance Flexed Trunk Wide Based Gait Factors Limiting Gait Function Factors Limiting Gait Function Decreased Activity Tolerance Decreased Strength Poor Balance Poor Safety Awareness Comments Gait Comments Pt leans forward with forearms on FWW, unwilling to stand upright. M5 PT-IP Objective Assessments Start: 04/14/18 16:09 Freq: Status: Active Protocol: Document 04/14/18 15:30 RCC (Rec: 04/14/18 16:21 RCC [email or web address]) Orientation Orientation/Cognition Level of Alertness Alert Orientation Name Birthday Place Situation Gross Range of Motion Upper Extremity ROM Assessment Within Functional Limits Lower Extremity ROM Assessment Within Functional Limits Strength Comments Strength Comments LE strength grossly 3+/5 Coordination Assessment Gross Coordination Gross Coordination WNL Muscle Tone Muscle Tone WNL Yes M6 PT-IP Treatment Start: 04/14/18 16:09 Freq: Status: Active Protocol: Document 04/14/18 15:30 RCC (Rec: 04/14/18 16:21 RCC [email or web address]) Physical Therapy Treatment Education Post-Op Education Safety Other Treatments Other Treatment Performed max VC for safety with mobility. M7 PT-IP Assessment and Plan Start: 04/14/18 16:09 Freq: Status: Active Protocol: Document 04/14/18 15:30 RCC (Rec: 04/14/18 16:21 RCC [email or web address]) PT Summary Assessment and Plan Potential Rehabilitation Potential Good Status of Condition at Evaluation Evolving Summary Impairments Pain Balance Bed Mobility Transfers Gait Activity Tolerance Progress Towards Goals Slow Progress due to Medical Issues Slow Progress due to Activity Tolerance Assessment Summary Pt presents with very poor body mechanics, forward flexed in standing and with gait, unwilling to stand upright. She requires continuous cuing for safety with transitional movements. Pt requiring 3 L O2 supplemental O2 at this time, which is well below her baseline. O2 saturation decreased to 89% on 3-L O2 and HR up to 130 bpm with short gait. Pt strongly desires to d /c home, but she is a high fall risk and demonstrates very poor activity tolerance. She is not safe for d/c at this time. Pt would greatly benefit from SNF rehabilitation upon d/c to improve her gait tolerance, strength, balance, and overall safety with improved independence. Goals Bed Mobility Goal Independent Transfer Goal Independent Front Wheeled Walker Gait Goal Standby Assistance Front Wheel Walker Gait Distance 150 Days to Meet Goals 2 Frequency of Treatment Frequency Of Treatment Twice a Day Treatment Plan Physical Therapy Treatment Plan Bed Mobility Training Transfer Training Gait Training Therapeutic Exercise Balance Retraining Discharge Planning Neuromuscular Re-ed Other Recommendations and Next Treatment prog. gait (monitor O2 and HR) Focus , use pt's 4WW if available for trial. Recommendations To Nursing Amount of Assist Needed 2 Person Assist Discharge Recommendations PT Discharge Recommendations SNF Rehab Visit Care Team Role Provider Type LYNNE Alves Emergency Provider Advanced Practioner Clinician Kaleb Gonzales MD Admit Provider Physician Attending Provider Other Providers Current Diagnoses Unspecified atrial fibrillation (04/12/18) Medical History (Last Updated 04/12/18 @ 18:24 by Kaleb Gonzales MD) Diabetes (Acute) Hypertension (Acute) Cholelithiasis (Acute) Depression (Acute) Fracture of left ankle (Acute) Hyperlipidemia (Acute) Inguinal hernia (Acute) Lumbar degenerative disc disease (Acute) Osteoarthritis (Acute) Pneumococcal meningitis (Acute) Prolapsed bladder (Acute) Surgical History (Last Updated 04/12/18 @ 18:24 by Kaleb Gonzales MD) History of abdominoplasty (Acute) History of gastric bypass (Acute)
[2018-04-14] MEDS: WARFARIN 5 MG TABLET PO (16:54)
[2018-04-14] MEDS: CEFTRIAXONE 1 GM/50 ML FROZ.PIGGY IV (17:25)
[2018-04-14] MEDS: DIGOXIN 0.25 MG TABLET PO ×2 (18:36→23:34)
[2018-04-14] MEDS: SIMVASTATIN 20 MG TABLET PO (20:38)
--- NOTE | 2018-04-14 22:36 | PC.NURSE ---
Pt dozing on edge of bed. O2 off. Pt frequently states I don't like that thing. referring to NC. O2 sats 87% on RA. Encourage pt to replace O2. Reinforced need for I.S. while awake. Pt c/o her foot being asleep. Lotion applied to LE. Encourage pt to recline HOB to relieve pressure at the hip joint. Assist to reposition. Bed alarm on. Call light in reach.
--- NOTE | 2018-04-15 04:44 | PC.NURSE ---
When I went into the patients room she stated Is there any neighbors next to your apartment? I told her no? She then said Oh your the doctor of nursing practice Transferred her to the commode and started to garble her speech. Talking about Not being able to go to the bathroom because she was on the bed Patient was on the commode and was incontinent. Transferred her back to bed.
[2018-04-15 05:26] VITALS: BP 104/59; PULSE 81; RESP 20; TEMP 36.9; O2SAT 95
[2018-04-15 05:35] LABS: Add Manual Diff / Slide Review NO; Basophils Percent Auto 1.2 % (0-2); Hematocrit 35.2 % (36-46); Hemoglobin 10.9 g/dL (12.0-16.0); Lymphocytes Percent Auto 21.7 % (25-40); Mean Corpuscular HGB Conc 30.8 % (30-36); Mean Corpuscular Hemoglobin 23.3 PG (26-34); Mean Corpuscular Volume 75.6 fL (80-100); Monocytes Percent Auto 8.2 % (3-14); Neutrophils Absolute Auto 4900 /uL (3000-5900); Neutrophils Percent Auto 65.9 % (50-75); Platelet Count 249 X10^3/uL (150-400); Red Blood Cell Count 4.66 X10^6/uL (4.0-5.2); Red Cell Distribution Width 19.9 % (11.6-14.8); White Blood Cell Count 7.5 X10^3/uL (4.5-11.0)
[2018-04-15 05:43] LABS: INR 1.2 (0.9-1.3)
[2018-04-15 05:48] LABS: BUN Creatinine Ratio 25.7 (6-22); Calcium 9.2 mg/dL (8.4-10.2); Estimated Glomerular Filt Rate > 60.0 mL/min (>60); Glucose 131 mg/dL (80-110); HEMOLYSIS < 15 (0-50); Potassium 4.1 mmol/L (3.4-5.1); Sodium 139 mmol/L (137-145)
--- NOTE | 2018-04-15 06:30 | PC.NURSE ---
0630: Patient believes that I am Anabell. She asked Anabell are you going to school? Keyshawn is waiting. Anabell hurry up, you will be late.
[2018-04-15 06:38] VITALS: BP 104/59; PULSE 81
[2018-04-15] MEDS: GABAPENTIN 600 MG TABLET PO (06:38)
[2018-04-15] MEDS: dilTIAZem 30 MG TABLET 60 MG PO (06:38)
[2018-04-15] MEDS: METOPROLOL 25 MG TABLET PO (06:39)
[2018-04-15 07:45] VITALS: BP 109/57; PULSE 70; RESP 18; TEMP 36.4; O2SAT 81
[2018-04-15 08:00] VITALS: O2SAT 93
[2018-04-15] MEDS: INSULIN ASPART 100 UNIT/ML INSULN PEN SUBCUT (08:14)
[2018-04-15] MEDS: METFORMIN HCL 500 MG TABLET PO (08:15)
[2018-04-15] MEDS: hydroCHLOROthiazide 12.5 MG CAPSULE PO (08:15)
[2018-04-15] MEDS: URSODIOL 300 MG CAPSULE PO (08:15)
[2018-04-15] MEDS: OXYBUTYNIN 5 MG TABLET 10 MG PO (08:15)
[2018-04-15] MEDS: ENOXAPARIN 80 MG/0.8 ML SYRINGE 160 MG SUBCUT (08:16)
[2018-04-15] MEDS: NICOTINE 14 PATCH 14 MG TOP (08:16)
[2018-04-15] MEDS: LOSARTAN 25 MG TABLET PO (08:16)
[2018-04-15] MEDS: ASPIRIN EC 81 MG TABLET PO (08:16)
[2018-04-15] MEDS: FLUTICASONE 120 SPRAY/16 GM SPRAY.SUSP NASAL (08:16)
[2018-04-15] MEDS: ALBUTEROL/IPRATROPIUM 3 ML AMPUL INH (08:57)
[2018-04-15] MEDS: HYDROCODONE/ACET 5/325 TABLET 1 TAB PO (10:59)
--- NOTE | 2018-04-15 11:14 | P.DS_ITS ---
History of Present Illness Chief complaint: THINKS SHE HAS UTI/BLADDER INFECTION Narrative: Alem Donahue is a 67 year old female under the primary care of Dr. Saini presented after experiencing 1 week of dysuria, urgency and hesitancy. She thought that she had a urinary tract infection. She states that she has not seen a primary care provider in over 6 months, and tried to go to urgent cares but they would take her insurance, so she presented to the emergency department. In the ER she was found to have a heart rate in the 130s and found to be in atrial fibrillation/flutter by EKG. She was given 20 mg of IV diltiazem with no apparent effect on heart rate, though did become mildly hypotensive with blood pressures into the 80s. She was given IV fluids and admitted to the ICU for ongoing management and care. She denies previous history of a arrhythmias and furthermore denies chest pain, shortness of breath , palpitations or any recent alteration in her chronic dyspnea which she attributes to COPD. First final discharge diagnosis 1. Atrial fibrillation/flutter with rapid ventricular response 2. Possible urinary tract infection 3. Acute on chronic hypoxic respiratory failure Four. Diabetes type 2 5. Hypertension 6. Hyperlipidemia 7. Morbid obesity 8. Chronic tobacco use 9. COPD 10. Chronic iron deficiency anemia Patient presented initially with dysuria symptoms but found to have AFib with rapid ventricular response. She did receive IV antibiotics for the possible urinary infection but no urine was ever done and culture was not done. White count was normal with a really no other signs of infection. She is not having any symptoms now. She did have a positive blood culture of gram-positive cocci 1 of 2 bottles thought to be contaminant. There is really no signs of infection from the labs on this admission. Discharge summary by problem One. Atrial fibrillation She was treated for the AFib with rapid ventricular response she remained in AFib during the hospitalization she was treated with Lovenox subcu and warfarin orally. Her protime on discharge 1.2 INR should continue Lovenox for 10 days and Coumadin she will follow up with her primary care provider we have placed her on Toprol XL along with diltiazem and digoxin to help control her rate. Echo showed normal LV function with probable diastolic dysfunction valves appeared normal. 2. Diabetes type 2 and this remained stable during the hospitalization 3. Hypertension we took her off losartan because we started her on the other medications to control the rate. Blood pressure is more appropriate 4. Hyperlipidemia switched her from simvastatin to atorvastatin due to the interaction with Cardizem Five. Osteoarthritis with chronic pain and chronic opioid habituation she is will continue with her hydrocodone at home 6. Iron deficiency anemia this most likely is due to the previous bariatric surgery. She has no history of GI bleed in the past although she has not had a colonoscopy I did recommend that. Plan to give her some IV iron today and I do not know if the oral iron will be of benefit to her because of the bariatric surgery this can be addressed by her primary care physician 7. Acute on chronic hypoxic respiratory failure. She has been somewhat hypoxic especially at at night when she sleeps 81% saturation requiring oxygen she has refused to get a CPAP evaluation with a sleep study PC most likely has sleep apnea but has been resistant to have that done. We are assessing her for oxygen well and will prescribed home oxygen as needed. She does have a history of COPD and will continue with her inhalers. There has been no exacerbation of COPD on this admission. Discharge Providers Date of admission: 04/12/18 19:28 Consults: 04/12/18 19:36 Consult to Physician Routine Comment: Consulting Provider: Kaleb Gonzales V Reason for consultation: afib with RVR Has provider been notified: Yes 04/12/18 20:29 Consult to Respiratory Therapy Evaluate & Treat Comment: Physician Instructions: Evaluate and treat 04/14/18 12:32 Consult to Occupational Therapy Evaluate & Treat Comment: weakness Physician Instructions: Evaluate and treat Consult to Physical Therapy Evaluate & Treat Comment: weakness Physician Instructions: Evaluate and Treat Consult to Respiratory Therapy Evaluate & Treat Comment: Nocturnal and exercise for home O2 assessment Physician Instructions: Evaluate and treat 04/15/18 10:39 Consult to Respiratory Therapy Evaluate & Treat Comment: Physician Instructions: Assess need for home oxygen and arrange if needed. Discharge provider: Mikal Rodriguez MD Summary Time Spent with Patient Total time spent providing and/or coordinating discharge services: 45 min Exam Vital Signs (past 8 hours): Vital Signs - 8 hr 3 04/15/18 05:26 04/15/18 06:38 04/15/18 07:45 Temperature 98.4 F 97.5 F L Pulse Rate 81 81 70 Respiratory Rate 20 18 Blood Pressure 104/59 L 104/59 L 109/57 L Pulse Oximetry 95 81 L 3 04/15/18 08:00 Temperature Pulse Rate Respiratory Rate Blood Pressure Pulse Oximetry 93 Pulse Oximetry 93 Fraction of Inspired Oxygen 30 SaO2/FiO2 Ratio 323 Oxygen Delivery Method Nasal Cannula Oxygen Flow Rate 2 Objective Labs Result Diagrams: 04/15/18 05:11 04/15/18 05:11 Labs: Laboratory Results - last 24 hr 04/14/18 04/14/18 04/15/18 13:05 13:05 05:11 WBC 7.5 RBC 4.66 Hgb 10.9 L Hct 35.2 L MCV 75.6 L MCH 23.3 L MCHC 30.8 RDW 19.9 H Plt Count 249 Neut % (Auto) 65.9 Lymph % (Auto) 21.7 L Preston % (Auto) 8.2 Eos % (Auto) 3.0 Baso % (Auto) 1.2 Neut # (Auto) 4900 PT INR Sodium Potassium Chloride Carbon Dioxide BUN Creatinine Estimated GFR BUN/Creatinine Ratio Glucose Calcium Iron 26 L TIBC 477 % Saturation 5 L Transferrin 371 Ferritin 9.8 L 04/15/18 04/15/18 05:11 05:11 WBC RBC Hgb Hct MCV MCH MCHC RDW Plt Count Neut % (Auto) Lymph % (Auto) Preston % (Auto) Eos % (Auto) Baso % (Auto) Neut # (Auto) PT 13.0 H INR 1.2 Sodium 139 Potassium 4.1 Chloride 96.0 L Carbon Dioxide 35.0 H BUN 18.0 H Creatinine 0.70 Estimated GFR > 60.0 BUN/Creatinine Ratio 25.7 H Glucose 131 H Calcium 9.2 Iron TIBC % Saturation Transferrin Ferritin Discharge Plan Discharge Plan Patient Disposition: Home Health Service Discharge comment: see summary Provider Discharge Instructions Diet: Diet as Tolerated Activity: Activity as tolerated Oxygen: as needed Discharge Data Attending Provider: Kaleb Gonzales V Admit Date/Time: 04/12/18 19:28 Quality VTE Deep Vein Thrombosis/Pulmonary Embolism Present on Admission: No
[2018-04-15] MEDS: IRON SUCROSE 200 MG in SODIUM CHLORIDE 0.9% 100 ML 220 ML IV (11:46)
[2018-04-15] MEDS: SODIUM CHLORIDE 0.9% FLUSH 10 ML IV (11:49)
[2018-04-15] MEDS: dilTIAZem CD 240 MG CAP PO (11:51)
[2018-04-15] MEDS: METOPROLOL ER 50 MG TABLET 100 MG PO (11:51)
--- NOTE | 2018-04-15 12:05 | PT.IPTN ---
Current Diagnoses Unspecified atrial fibrillation (04/12/18) Physical Therapy Treatment Note M2 PT-IP Current Condition Start: 04/14/18 16:09 Freq: Status: Active Protocol: Document 04/14/18 15:30 RCC (Rec: 04/14/18 16:21 RCC [email or web address]) Physical Therapy Current Condition Current Condition Evaluation Date 04/14/18 Treatment Diagnosis Impaired activity tolerance; A -Fib with RVR Onset Date 04/12/18 M3 PT-IP Subjective Start: 04/14/18 16:09 Freq: Status: Active Protocol: Document 04/15/18 11:40 RS (Rec: 04/15/18 12:05 RS [id number]) Subjective Physical Therapy Visit Type Type Treatment Note Visit Start Time 10:59 Visit Stop Time 11:40 Total Visit Minutes 41 Physical Therapy Visit Comments Patient Comments Pt reports she's going home no matter what, doesn't feel like she needs to go to rehab. Patient/Caregiver Goals to go directly home Therapy Pain Assessment Pain When Pain Assessed At Rest Pain Present Pain Present Pain Reported Location Back Intensity 8 Scale Used Numeric (1 - 10) Description Aching Tender Throbbing Pain Management Techniques Apply Cold Apply Heat Re-positioning Timing of Activity with Medications M4 PT-IP Mobility and Gait Start: 04/14/18 16:09 Freq: Status: Active Protocol: Document 04/15/18 11:40 RS (Rec: 04/15/18 12:05 RS [id number]) PT-Transfer Assessment Sit to and From Stand Sit to and from Stand Standby Assistance Equipment Transfer Assistive Device Gait Belt Front Wheeled Walker Comments Mobility Comments Pt leaves the walker behind before getting to the chair, utilizes armrests on chair for support, but remains stable. Gait Assessment Gait Gait Assistance Required: Standby Assistance Distance (Feet) (feet) 65 Assistive Devices Assistive Device Gait Belt Front Wheeled Walker Gait Deviations General Gait Pattern Decreased Feet Clearance Flexed Trunk Wide Based Gait Comments Gait Comments Pt supports herself on the walker with her forearms and stays flexed forward at the trunk whenever she's up walking. Though abnormal, pt remains stable with walking. PT-Balance Assessment Sitting Balance and Reactions Static Sitting Balance Ability Normal Dynamic Sitting Balance Ability Normal Standing Balance and Reactions Static Standing Balance Ability Good Dynamic Standing Balance Ability Fair Device Used FWW M5 PT-IP Objective Assessments Start: 04/14/18 16:09 Freq: Status: Active Protocol: Document 04/14/18 15:30 RCC (Rec: 04/14/18 16:21 RCC [email or web address]) Orientation Orientation/Cognition Level of Alertness Alert Orientation Name Birthday Place Situation Gross Range of Motion Upper Extremity ROM Assessment Within Functional Limits Lower Extremity ROM Assessment Within Functional Limits Strength Comments Strength Comments LE strength grossly 3+/5 Coordination Assessment Gross Coordination Gross Coordination WNL Muscle Tone Muscle Tone WNL Yes M6 PT-IP Treatment Start: 04/14/18 16:09 Freq: Status: Active Protocol: Document 04/15/18 11:40 RS (Rec: 04/15/18 12:05 RS [id number]) Physical Therapy Treatment Education Post-Op Education Safety M7 PT-IP Assessment and Plan Start: 04/14/18 16:09 Freq: Status: Active Protocol: Document 04/15/18 11:40 RS (Rec: 04/15/18 12:05 RS [id number]) PT Summary Assessment and Plan Potential Rehabilitation Potential Good Status of Condition at Evaluation Stable Summary Impairments Bed Mobility Transfers Gait Activity Tolerance Progress Towards Goals Progressing Toward Goals Assessment Summary Pts gait is quite stable despite being quite abnormal. Pt reports she has walked this way for years and doesn't intend to modify her gait quality at all. Pts SpO2 actually increased to low 90's with walking, never dropped below 87% the entire session. Pt would definitely benefit from SNF rehab prior to going home, however, pt is adamant that she wants to return directly home. Pt is likely near her functional baseline, so this is an appropriate plan . However, pt will need to participate w/ HHPT once at home in order to optimize independence/safety with mobility. Pt is open to this plan. Goals Gait Distance 50 Days to Meet Goals 2 Frequency of Treatment Frequency Of Treatment Twice a Day Treatment Plan Physical Therapy Treatment Plan Bed Mobility Training Transfer Training Gait Training Therapeutic Exercise Balance Retraining Discharge Planning Neuromuscular Re-ed Other Recommendations and Next Treatment prog. gait (monitor O2 and HR) Focus , use pt's 4WW if available for trial. Recommendations To Nursing Amount of Assist Needed 1 Person Assist Discharge Recommendations PT Discharge Recommendations Home
--- NOTE | 2018-04-15 12:50 | OT.IP.TRT ---
Current Diagnoses Unspecified atrial fibrillation (04/12/18) Occupational Therapy Treatment Note M3 OT- IP Subjective and Pain Start: 04/15/18 12:49 Freq: Status: Active Protocol: Document 04/15/18 12:49 [facility] (Rec: 04/15/18 12:50 [facility] [id number]) OT- Subjective Occupational Therapy Visit Type Notes Called ICU to see pt for OT eval, per nursing pt leaving to go home, therefore no OT eval needed.
--- NOTE | 2018-04-15 14:48 | PC.NURSE ---
Addendum entered by Chucho Ramírez R.N. 04/15/18 15:05: Pt discharge at 1500 to home. Coordinator escorted pt via w/c to POV in no acute distress. Family driving pt home. All belongings sent with pt. Original Note: Discharge Note Pt to d/c home per MD orders. Provided d/c packet and educational materials. Reviewed d/c packet. Educated on dx, medications, stroke, med regimen, next dose due. Family present for teaching. Both pt and family verbalize understanding of teaching. [employer] Rep here for O2 education. Pt verbalizes understanding regarding lovenox and coumadin teaching. IV removed. Tele removed.
--- NOTE | 2018-04-15 14:50 | CM.DPC ---
DCP/continued: Patient discharging from [facility] today. Spoke with therapy and patient cleared from mobility standpoint. Placed 2 calls to [facility] to check on whether or not patient has CHIDI. 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 Asked ARIS/Elizabeth to fax d/c summary to [facility]. P: Home today. Suspect patient has CHIDI but unable to verify. Patient unsure but agreeable to information faxed to confirm/deny. Family transporting patient home today. EMANUEL Maria
--- NOTE | 2018-04-15 16:01 | PT.IPTN ---
Current Diagnoses Unspecified atrial fibrillation (04/12/18) Physical Therapy Treatment Note M2 PT-IP Current Condition Start: 04/14/18 16:09 Freq: Status: Discharge Protocol: Document 04/14/18 15:30 RCC (Rec: 04/14/18 16:21 RCC [email or web address]) Physical Therapy Current Condition Current Condition Evaluation Date 04/14/18 Treatment Diagnosis Impaired activity tolerance; A -Fib with RVR Onset Date 04/12/18 M3 PT-IP Subjective Start: 04/14/18 16:09 Freq: Status: Discharge Protocol: Document 04/15/18 14:10 [facility] (Rec: 04/15/18 16:01 [facility] [id number]) Subjective Physical Therapy Visit Type Type Treatment Note Visit Start Time 14:10 Visit Stop Time 14:20 Total Visit Minutes 10 Number of WATERPROOFER HELPER Visits 1 Physical Therapy Visit Comments Patient Comments I'm leaving to go home. Patient/Caregiver Goals going home M4 PT-IP Mobility and Gait Start: 04/14/18 16:09 Freq: Status: Discharge Protocol: Document 04/15/18 14:10 [facility] (Rec: 04/15/18 16:01 [facility] [id number]) PT-Transfer Assessment Sit to and From Stand Sit to and from Stand Standby Assistance Equipment Transfer Assistive Device 4 Wheeled Walker Transfers Transfer Destination Chair Transfer Technique up from chair for walk then back to chair Comments Mobility Comments Pt stood using arms of chair then reached for walker. Pt made sure breaks were locked before standing. Gait Assessment Gait Gait Assistance Required: Standby Assistance Distance (Feet) (feet) 50 Assistive Devices Assistive Device 4 Wheeled Walker Gait Deviations General Gait Pattern Decreased Feet Clearance Flexed Trunk Wide Based Gait Comments Gait Comments Pt trialed 4WW she uses at home. Pt supports herself on walker with forearms with forward lean. Pt has been using this walker in this manner for 5 years. PT-Balance Assessment Sitting Balance and Reactions Static Sitting Balance Ability Normal Dynamic Sitting Balance Ability Normal Standing Balance and Reactions Static Standing Balance Ability Good Dynamic Standing Balance Ability Fair Device Used FWW M5 PT-IP Objective Assessments Start: 04/14/18 16:09 Freq: Status: Discharge Protocol: Document 04/14/18 15:30 RCC (Rec: 04/14/18 16:21 RCC [email or web address]) Orientation Orientation/Cognition Level of Alertness Alert Orientation Name Birthday Place Situation Gross Range of Motion Upper Extremity ROM Assessment Within Functional Limits Lower Extremity ROM Assessment Within Functional Limits Strength Comments Strength Comments LE strength grossly 3+/5 Coordination Assessment Gross Coordination Gross Coordination WNL Muscle Tone Muscle Tone WNL Yes M6 PT-IP Treatment Start: 04/14/18 16:09 Freq: Status: Discharge Protocol: Document 04/15/18 11:40 RS (Rec: 04/15/18 12:05 RS [id number]) Physical Therapy Treatment Education Post-Op Education Safety M7 PT-IP Assessment and Plan Start: 04/14/18 16:09 Freq: Status: Discharge Protocol: Document 04/15/18 14:10 [facility] (Rec: 04/15/18 16:01 [facility] [id number]) PT Summary Assessment and Plan Potential Rehabilitation Potential Good Status of Condition at Evaluation Stable Summary Assessment Summary Pt is stable when trialing 4WW . Pt has been ambulating this way for many years and is unwilling to change the way she uses her 4WW. Pt will be returning home with some assist from healthcare interpreter. Frequency of Treatment Frequency Of Treatment Twice a Day Treatment Plan Other Recommendations and Next Treatment Pt to d/c home today. Focus Recommendations To Nursing Amount of Assist Needed 1 Person Assist Discharge Recommendations PT Discharge Recommendations Home
== END 2018-04-15 15:00 | disposition home or self-care (01) | DRG 308 ==
LOC: ED 17:35 → ICU 19:28
PROVIDERS: Admitting Provider Internal Medicine; Emergency Provider Nurse Practitioner Family; Visit Provider Internal Medicine
DX: I48.91 Unspecified atrial fibrillation (principal); J96.21 Acute and chronic respiratory failure with hypoxia; Z68.43 Body mass index [BMI] 50.0-59.9, adult; F11.20 Opioid dependence, uncomplicated; I48.92 Unspecified atrial flutter; E11.9 Type 2 diabetes mellitus without complications; Z79.84 Long term (current) use of oral hypoglycemic drugs; E78.5 Hyperlipidemia, unspecified; F17.210 Nicotine dependence, cigarettes, uncomplicated; J44.9 Chronic obstructive pulmonary disease, unspecified; G89.29 Other chronic pain; M19.90 Unspecified osteoarthritis, unspecified site; D50.9 Iron deficiency anemia, unspecified; E66.01 Morbid (severe) obesity due to excess calories; G47.30 Sleep apnea, unspecified; I10 Essential (primary) hypertension
CPT/HCPCS: 36415; 36591; 71045; 80048; 80053; 81003; 82550; 82553; 82728; 82962; 83540; 83550; 83690; 83880; 84145; 84443; 84484; 85025; 85610; 87040; 87077; 87150; 87205; 87797; 93005; 94618; 94640; 94760; 94762; 96361; 96365; 96375; 97110; 97116; 97162; 97530; 99285; 99406; C8929; J1160; J1650; J1756; J1940; J7613; Q9957

== ENCOUNTER 2018-06-04 11:14 | Emergency (ER) | payer MEDICARE, MEDICAID, SELFPAY ==
[2018-04-12 21:07] VITALS: BMI 48.4
[2018-06-04 11:45] VITALS: BP 104/63; PULSE 57; RESP 16; TEMP 36.2; O2SAT 80
--- NOTE | 2018-06-04 12:01 | PC.NURSE ---
Has swelling of right leg - states that when she has a UTI 'it goes to my legs'
--- NOTE | 2018-06-04 12:05 | ED.EXTPRO ---
HPI - Extremity Problem <Jody Simmons PA-C - Last Filed: 06/04/18 17:21> General Chief complaint: Extremity Problem,Nontraumatic Stated complaint: FALL, TIRED Time Seen by Provider: 06/04/18 12:05 Source: patient, family (caregiver) and old records reviewed Mode of arrival: EMS Limitations: no limitations History of Present Illness HPI Narrative: This 67-year-old female returns to the ED today due to mainly recurrent right knee pain that is keeping her from ambulating. She states ?my family and caregiver would not let me alone? and states that is why she came in, however she does admit to increased pain and also generalized fatigue. Her caregiver has noted she has seemed more fatigued and weak in general lately though no acute change today. She has been unable to get out of her chair on her own due to the knee pain when normally she would be able to ambulate with the walker. She has had episodes where she falls asleep in her chair which is maybe 6 or 8 in off the ground and slumps forward onto the floor while asleep. She states she has never had any injury with this including last episode a couple of days ago. Caregiver states that she will notice patient seems more tired and slow in general, she will occasionally have slurred speech and slower to answer questions when she is over tired, however again this has been an ongoing issue without acute changes. Neither patient nor caregiver have noted any focal weakness, difficulty with speech, swallowing, or vision. Patient denies any fever, chills, sweats or recent illness. She denies any increased dyspnea or new cough. She denies any chest pain or palpitations. She denies any abdominal pain, urinary symptoms, diarrhea or bowel changes. She states that her appetite is normal. She admits that she is supposed to be wearing her oxygen at home but never does, O2 sats typically 80% or even a little bit less off of oxygen. EMS is here today and note they have been called multiple times a day recently to get the patient up or off of the floor Related Data Home Medications Medication Instructions Recorded Confirmed gabapentin [Neurontin] 600 mg PO Q6H #0 02/01/11 06/04/18 fluticasone [Flonase Allergy 2 spray INTRANASAL QDAY #0 09/28/17 06/04/18 Relief] hydrochlorothiazide 1 - 2 cap PO QDAYP PRN #0 09/28/17 06/04/18 albuterol sulfate 2 puff INHALATION Q4-6H PRN 04/12/18 06/04/18 aspirin 81 mg PO DAILY 04/12/18 06/04/18 hydrocodone-acetaminophen 1 tab PO Q6H PRN 04/12/18 06/04/18 metformin [Glucophage] 500 mg PO BIDWM 04/12/18 06/04/18 oxybutynin chloride 10 mg PO DAILY 04/12/18 06/04/18 triamcinolone acetonide 1 applic TOPICAL BID 04/12/18 06/04/18 ursodiol 300 mg PO BID 04/12/18 06/04/18 losartan 50 mg PO DAILY 06/04/18 06/04/18 warfarin [Coumadin] 10 mg PO 1700 06/04/18 06/04/18 Previous Rx's Medication Instructions Recorded atorvastatin [Lipitor] 10 mg PO BEDTIME #30 tab 04/15/18 digoxin 0.125 mg PO DAILY@1700 #30 tab 04/15/18 diltiazem HCl 240 mg PO DAILY #30 cap 04/15/18 metoprolol succinate 100 mg PO DAILY #30 tab 04/15/18 furosemide [Lasix] 20 mg PO QAM #5 tab 06/04/18 potassium chloride 10 meq PO DAILY #5 cap 06/04/18 Allergies Allergy/AdvReac Type Severity Reaction Status Date / Time captopril [CAPTOPRIL] Allergy Unknown Verified 06/04/18 13:44 nabumetone [NABUMETONE] Allergy Unknown Rash Verified 06/04/18 13:44 Review of Systems <Jody Simmons PA-C - Last Filed: 06/04/18 17:21> Review of Systems All systems reviewed & are unremarkable except as noted in HPI and below Exam <Jody Simmons PA-C - Last Filed: 06/04/18 17:21> Narrative Exam Narrative: GENERAL APPEARANCE: Patient sitting comfortably, in no distress. HEENT: PERRL, EOMI, NECK: Supple, no masses LUNGS: Generalized reduced breath sounds with occasional soft expiratory wheeze, no clear crackles, no cough on exam HEART: Rate and rhythm regular, normal S1 and S2, no S3 or S4. Heart tones are distant ABDOMEN: Soft, obese, nontender, nondistended, bowel sounds present x 4 quadrants, no masses palpable EXTREMITIES: Venous stasis skin changes bilateral lower extremities with some brawny edema, trace pitting on the left and mild pitting on the left. Left calf is nontender, right is tender to palpation. DERMATOLOGIC: No jaundice or exanthem NEUROLOGIC: Alert and oriented with normal speech and coordination Initial Vital Signs Initial Vital Signs: Vital Signs Temperature 97.2 F L 06/04/18 11:45 Pulse Rate 57 L 06/04/18 11:45 Respiratory Rate 16 06/04/18 11:45 Blood Pressure 104/63 06/04/18 11:45 Pulse Oximetry 80 L 06/04/18 11:45 <Davy Avalso DO - Last Filed: 06/04/18 18:14> Initial Vital Signs Initial Vital Signs: Vital Signs Temperature 97.2 F L 06/04/18 11:45 Pulse Rate 57 L 06/04/18 11:45 Respiratory Rate 16 06/04/18 11:45 Blood Pressure 104/63 06/04/18 11:45 Pulse Oximetry 80 L 06/04/18 11:45 Course <Jody Simmons PA-C - Last Filed: 06/04/18 17:21> Additional Information: Patient appears comfortable currently and requests to be discharged home. Physical therapy has evaluated her, happened to be the same physical therapist as her last hospitalization and reports that she is at baseline in terms of her mobility, was able to walk a few steps with her walker. Patient is not sure whether she has history of CHF. She has slept in a chair for a very long time because it is easier for her to breathe. She denies any acute changes in her breathing, any new cough or other symptoms however her caregiver has noticed some increased cough recently. Reviewed findings with Dr. Avalos who agrees there is not a clear indication for admission here as patient can potentially be treated as an outpatient. She was given furosemide here and reported feeling significantly improved prior to d/c. She was also supratherapeutic on INR and advised to stop warfarin until follow-up with PCP and recheck labs. She and her caregiver are agreeable with this plan as well as to return if any acutely worsening symptoms. PCP follow-up is scheduled for tomorrow Orders Ordered: ED Orders 06/04/18 12:26 Consult to Physical Therapy Evaluate & Treat XR chest 1V Stat Urinalysis and Microscopic Stat 06/04/18 12:28 Consult to Physical Therapy Evaluate & Treat US periph venous low extrem rt Stat 06/04/18 13:00 Complete Blood Count AUTO DIFF Stat Comprehensive Metabolic Panel Stat Lactate (Lactic Acid) Stat Magnesium Stat Prothrombin Time INR Stat Discontinued Medications Furosemide (Lasix) 40 mg IV NOW ONE Stop: 06/04/18 13:34 Last Admin: 06/04/18 14:00 Dose: 40 mg Sodium Chloride (Normal Saline 0.9%) 1,000 mls @ 1,000 mls/hr IV BOLUS PRN PRN Reason: Fluid replacement Potassium Chloride (Klor-Con M10) 10 meq PO NOW ONE Stop: 06/04/18 13:34 Last Admin: 06/04/18 14:00 Dose: 10 meq Vital Signs - 8 hr 06/04/18 11:45 06/04/18 14:57 Temperature 97.2 F L Pulse Rate 57 L 58 L Respiratory Rate 16 18 Blood Pressure 104/63 Blood Pressure [Left Wrist] 129/72 H Pulse Oximetry 80 L 95 <Davy Avalos DO - Last Filed: 06/04/18 18:14> Orders Ordered: ED Orders 06/04/18 12:26 Consult to Physical Therapy Evaluate & Treat XR chest 1V Stat Urinalysis and Microscopic Stat 06/04/18 12:28 Consult to Physical Therapy Evaluate & Treat US periph venous low extrem rt Stat 06/04/18 13:00 Complete Blood Count AUTO DIFF Stat Comprehensive Metabolic Panel Stat Lactate (Lactic Acid) Stat Magnesium Stat Prothrombin Time INR Stat Discontinued Medications Furosemide (Lasix) 40 mg IV NOW ONE Stop: 06/04/18 13:34 Last Admin: 06/04/18 14:00 Dose: 40 mg Sodium Chloride (Normal Saline 0.9%) 1,000 mls @ 1,000 mls/hr IV BOLUS PRN PRN Reason: Fluid replacement Potassium Chloride (Klor-Con M10) 10 meq PO NOW ONE Stop: 06/04/18 13:34 Last Admin: 06/04/18 14:00 Dose: 10 meq Vital Signs - 8 hr 06/04/18 11:45 06/04/18 14:57 Temperature 97.2 F L Pulse Rate 57 L 58 L Respiratory Rate 16 18 Blood Pressure 104/63 Blood Pressure [Left Wrist] 129/72 H Pulse Oximetry 80 L 95 MDM - Extremity (Nontraumatic) <Jody Simmons PA-C - Last Filed: 06/04/18 17:21> Lab Data Attestation: I reviewed the patient's lab results. Result diagrams: 06/04/18 13:00 06/04/18 13:00 Lab Results 06/04/18 06/04/18 06/04/18 Range/Units 12:26 13:00 13:00 WBC 11.0 (4.5-11.0) X10^3/uL RBC 4.81 (4.0-5.2) X10^6/uL Hgb 11.3 L (12.0-16.0) g/dL Hct 37.0 (36-46) % MCV 77.0 L (80-100) fL MCH 23.5 L (26-34) PG MCHC 30.5 (30-36) % RDW 22.0 H (11.6-14.8) % Plt Count 326 (150-400) X10^3/uL Neut % (Auto) 79.4 H (50-75) % Lymph % (Auto) 11.7 L (25-40) % [place] % (Auto) 6.6 (3-14) % Eos % (Auto) 1.9 L (2-4) % Baso % (Auto) 0.4 (0-2) % Neut # (Auto) 8700 H (2589-6835) /uL RBC Morphology Not Reportable Hypochromasia 1+ H Anisocytosis 3+ H Microcytosis 1+ H PT 61.3 H (10.1-12.7) SECONDS INR 5.7 H* (0.9-1.3) Sodium (137-145) mmol/L Potassium (3.4-5.1) mmol/L Chloride (98-107) mmol/L Carbon Dioxide (22-32) mmol/L BUN (7-17) mg/dL Creatinine (0.52-1.04) mg/dL Estimated GFR (>60) mL/min BUN/Creatinine Ratio (6-22) Glucose (80-110) mg/dL Lactate (0.7-2.1) mmol/L Calcium (8.4-10.2) mg/dL Magnesium (1.6-2.3) mg/dL Total Bilirubin (0.2-1.3) mg/dL AST (14-36) IU/L ALT (9-52) IU/L Alkaline Phosphatase (38-126) U/L B-Natriuretic Peptide (<100) Total Protein (6.3-8.2) g/dL Albumin (3.5-5.0) g/dL Globulin (1.7-4.1) g/dL Albumin/Globulin Ratio (1.0-2.8) Urine Color Yellow Urine Appearance Clear Urine pH 6.5 (4.5-8.0) Ur Specific [place] 1.015 (1.000-1.035) Urine Protein Trace H (Negative) Urine Glucose (UA) Negative (Normal) g/dL Urine Ketones Negative (NEGATIVE) Urine Occult Blood Negative (Negative) Urine Nitrate Negative (Negative) Urine Bilirubin Negative (NEGATIVE) Urine Urobilinogen 4.0 H (0.2) E.U./dL Ur Leukocyte Esterase Negative (NEGATIVE) Urine RBC None seen (0-5/HPF) Urine WBC None seen (0-5/HPF) Ur Squamous Epith Cells 5-10 /hpf H Urine Bacteria None seen (None) Ur Culture Indicated? Cult not indicated Micro UA Comment Not Reportable Digoxin (0.8-2.0) ng/mL 06/04/18 06/04/18 06/04/18 Range/Units 13:00 13:00 13:33 WBC (4.5-11.0) X10^3/uL RBC (4.0-5.2) X10^6/uL Hgb (12.0-16.0) g/dL Hct (36-46) % MCV (80-100) fL MCH (26-34) PG MCHC (30-36) % RDW (11.6-14.8) % Plt Count (150-400) X10^3/uL Neut % (Auto) (50-75) % Lymph % (Auto) (25-40) % [place] % (Auto) (3-14) % Eos % (Auto) (2-4) % Baso % (Auto) (0-2) % Neut # (Auto) (2677-0162) /uL RBC Morphology Hypochromasia Anisocytosis Microcytosis PT (10.1-12.7) SECONDS INR (0.9-1.3) Sodium 137 (137-145) mmol/L Potassium 4.3 (3.4-5.1) mmol/L Chloride 91 L (98-107) mmol/L Carbon Dioxide 39 H (22-32) mmol/L BUN 14 (7-17) mg/dL Creatinine 0.60 (0.52-1.04) mg/dL Estimated GFR > 60.0 (>60) mL/min BUN/Creatinine Ratio 23.3 H (6-22) Glucose 139 H (80-110) mg/dL Lactate 1.6 (0.7-2.1) mmol/L Calcium 8.5 (8.4-10.2) mg/dL Magnesium 1.8 Cancelled (1.6-2.3) mg/dL Total Bilirubin 0.9 (0.2-1.3) mg/dL AST 44 H (14-36) IU/L ALT 24 (9-52) IU/L Alkaline Phosphatase 65 (38-126) U/L B-Natriuretic Peptide (<100) Total Protein 6.9 (6.3-8.2) g/dL Albumin 3.5 (3.5-5.0) g/dL Globulin 3.4 (1.7-4.1) g/dL Albumin/Globulin Ratio 1.0 (1.0-2.8) Urine Color Urine Appearance Urine pH (4.5-8.0) Ur Specific [place] (1.000-1.035) Urine Protein (Negative) Urine Glucose (UA) (Normal) g/dL Urine Ketones (NEGATIVE) Urine Occult Blood (Negative) Urine Nitrate (Negative) Urine Bilirubin (NEGATIVE) Urine Urobilinogen (0.2) E.U./dL Ur Leukocyte Esterase (NEGATIVE) Urine RBC (0-5/HPF) Urine WBC (0-5/HPF) Ur Squamous Epith Cells Urine Bacteria (None) Ur Culture Indicated? Micro UA Comment Digoxin (0.8-2.0) ng/mL 06/04/18 06/04/18 Range/Units Unknown Unknown WBC (4.5-11.0) X10^3/uL RBC (4.0-5.2) X10^6/uL Hgb (12.0-16.0) g/dL Hct (36-46) % MCV (80-100) fL MCH (26-34) PG MCHC (30-36) % RDW (11.6-14.8) % Plt Count (150-400) X10^3/uL Neut % (Auto) (50-75) % Lymph % (Auto) (25-40) % [place] % (Auto) (3-14) % Eos % (Auto) (2-4) % Baso % (Auto) (0-2) % Neut # (Auto) (2749-5369) /uL RBC Morphology Hypochromasia Anisocytosis Microcytosis PT (10.1-12.7) SECONDS INR (0.9-1.3) Sodium (137-145) mmol/L Potassium (3.4-5.1) mmol/L Chloride (98-107) mmol/L Carbon Dioxide (22-32) mmol/L BUN (7-17) mg/dL Creatinine (0.52-1.04) mg/dL Estimated GFR (>60) mL/min BUN/Creatinine Ratio (6-22) Glucose (80-110) mg/dL Lactate (0.7-2.1) mmol/L Calcium (8.4-10.2) mg/dL Magnesium (1.6-2.3) mg/dL Total Bilirubin (0.2-1.3) mg/dL AST (14-36) IU/L ALT (9-52) IU/L Alkaline Phosphatase (38-126) U/L B-Natriuretic Peptide 137.0 H (<100) Total Protein (6.3-8.2) g/dL Albumin (3.5-5.0) g/dL Globulin (1.7-4.1) g/dL Albumin/Globulin Ratio (1.0-2.8) Urine Color Urine Appearance Urine pH (4.5-8.0) Ur Specific [place] (1.000-1.035) Urine Protein (Negative) Urine Glucose (UA) (Normal) g/dL Urine Ketones (NEGATIVE) Urine Occult Blood (Negative) Urine Nitrate (Negative) Urine Bilirubin (NEGATIVE) Urine Urobilinogen (0.2) E.U./dL Ur Leukocyte Esterase (NEGATIVE) Urine RBC (0-5/HPF) Urine WBC (0-5/HPF) Ur Squamous Epith Cells Urine Bacteria (None) Ur Culture Indicated? Micro UA Comment Digoxin 0.6 L (0.8-2.0) ng/mL Imaging Data Chest x-ray: Radiologist's impression: [address] [address] XRay Report Signed Patient: Alem Donahue MR#: [id number] : 1950 Acct:[id number] Age/Sex: 67 / F Date of Service: 06/04/18 Loc: ED Accession Number: [id number] Procedure: XR chest 1V Ordering Provider: Jody Simmons P.A-C PROCEDURE: XR CHEST 1V INDICATIONS: emphysema, weakness TECHNIQUE: One view of the chest was acquired. COMPARISON: [facility], , CHEST 1 VIEW, 09/29/2017, 23:15. [facility], , XR CHEST 1V, 04/12/2018, 15:49. FINDINGS: Surgical changes and devices: None. Lungs and pleura: No pleural effusions or pneumothorax. Lung volumes are decreased. There are scattered ill-defined groundglass and patchy opacities which appear increased. No definite focal consolidation seen. Mediastinum: Mediastinal contours appear normal. Heart size is normal. Bones and chest wall: No suspicious bony lesions. Overlying soft tissues appear unremarkable. IMPRESSION: Bibasilar patchy ill-defined opacities suspicious for worsening pulmonary edema since 04/02/18. Please correlate clinically to exclude superimposed infection. Dictated by: Chucho Santana M.D. on 06/04/2018 at 13:19 Approved by: Chucho Santana M.D. on 06/04/2018 at 13:21 Venous US: Radiologist's impression: View Report History Print [address] [address] Ultrasound Report Signed Patient: Alem Donahue MR#: [id number] : 1950 Acct:[id number] Age/Sex: 67 / F Date of Service: 06/04/18 Loc: ED Accession Number: [id number] Procedure: US periph venous low extrem rt Ordering Provider: Jody Simmons P.A-C PROCEDURE: US PERIPH VENOUS LOW EXTREM RT INDICATIONS: RIGHT CALF PAIN, EDEMA TECHNIQUE: Real-time imaging, as well as color and pulse Doppler interrogation, were performed of the lower extremity deep veins from the inguinal ligament to the popliteal fossa. COMPARISON: None. FINDINGS: The deep veins are normally compressible, and free of intraluminal thrombus. Color and pulse Doppler demonstrate normal phasic intraluminal flow. There is normal augmentation response to distal compression maneuver. IMPRESSION: No evidence of deep venous thrombosis Dictated by: Chucho Santana M.D. on 06/04/2018 at 13:21 Approved by: hCucho Santana M.D. on 06/04/2018 at 13:22 <Davy Avalos DO - Last Filed: 06/04/18 18:14> Lab Data Lab Results 06/04/18 06/04/18 06/04/18 Range/Units 12:26 13:00 13:00 WBC 11.0 (4.5-11.0) X10^3/uL RBC 4.81 (4.0-5.2) X10^6/uL Hgb 11.3 L (12.0-16.0) g/dL Hct 37.0 (36-46) % MCV 77.0 L (80-100) fL MCH 23.5 L (26-34) PG MCHC 30.5 (30-36) % RDW 22.0 H (11.6-14.8) % Plt Count 326 (150-400) X10^3/uL Neut % (Auto) 79.4 H (50-75) % Lymph % (Auto) 11.7 L (25-40) % [place] % (Auto) 6.6 (3-14) % Eos % (Auto) 1.9 L (2-4) % Baso % (Auto) 0.4 (0-2) % Neut # (Auto) 8700 H (8296-4341) /uL RBC Morphology Not Reportable Hypochromasia 1+ H Anisocytosis 3+ H Microcytosis 1+ H PT 61.3 H (10.1-12.7) SECONDS INR 5.7 H* (0.9-1.3) Sodium (137-145) mmol/L Potassium (3.4-5.1) mmol/L Chloride (98-107) mmol/L Carbon Dioxide (22-32) mmol/L BUN (7-17) mg/dL Creatinine (0.52-1.04) mg/dL Estimated GFR (>60) mL/min BUN/Creatinine Ratio (6-22) Glucose (80-110) mg/dL Lactate (0.7-2.1) mmol/L Calcium (8.4-10.2) mg/dL Magnesium (1.6-2.3) mg/dL Total Bilirubin (0.2-1.3) mg/dL AST (14-36) IU/L ALT (9-52) IU/L Alkaline Phosphatase (38-126) U/L B-Natriuretic Peptide (<100) Total Protein (6.3-8.2) g/dL Albumin (3.5-5.0) g/dL Globulin (1.7-4.1) g/dL Albumin/Globulin Ratio (1.0-2.8) Urine Color Yellow Urine Appearance Clear Urine pH 6.5 (4.5-8.0) Ur Specific [place] 1.015 (1.000-1.035) Urine Protein Trace H (Negative) Urine Glucose (UA) Negative (Normal) g/dL Urine Ketones Negative (NEGATIVE) Urine Occult Blood Negative (Negative) Urine Nitrate Negative (Negative) Urine Bilirubin Negative (NEGATIVE) Urine Urobilinogen 4.0 H (0.2) E.U./dL Ur Leukocyte Esterase Negative (NEGATIVE) Urine RBC None seen (0-5/HPF) Urine WBC None seen (0-5/HPF) Ur Squamous Epith Cells 5-10 /hpf H Urine Bacteria None seen (None) Ur Culture Indicated? Cult not indicated Micro UA Comment Not Reportable Digoxin (0.8-2.0) ng/mL 06/04/18 06/04/18 06/04/18 Range/Units 13:00 13:00 13:33 WBC (4.5-11.0) X10^3/uL RBC (4.0-5.2) X10^6/uL Hgb (12.0-16.0) g/dL Hct (36-46) % MCV (80-100) fL MCH (26-34) PG MCHC (30-36) % RDW (11.6-14.8) % Plt Count (150-400) X10^3/uL Neut % (Auto) (50-75) % Lymph % (Auto) (25-40) % [place] % (Auto) (3-14) % Eos % (Auto) (2-4) % Baso % (Auto) (0-2) % Neut # (Auto) (7749-0092) /uL RBC Morphology Hypochromasia Anisocytosis Microcytosis PT (10.1-12.7) SECONDS INR (0.9-1.3) Sodium 137 (137-145) mmol/L Potassium 4.3 (3.4-5.1) mmol/L Chloride 91 L (98-107) mmol/L Carbon Dioxide 39 H (22-32) mmol/L BUN 14 (7-17) mg/dL Creatinine 0.60 (0.52-1.04) mg/dL Estimated GFR > 60.0 (>60) mL/min BUN/Creatinine Ratio 23.3 H (6-22) Glucose 139 H (80-110) mg/dL Lactate 1.6 (0.7-2.1) mmol/L Calcium 8.5 (8.4-10.2) mg/dL Magnesium 1.8 Cancelled (1.6-2.3) mg/dL Total Bilirubin 0.9 (0.2-1.3) mg/dL AST 44 H (14-36) IU/L ALT 24 (9-52) IU/L Alkaline Phosphatase 65 (38-126) U/L B-Natriuretic Peptide (<100) Total Protein 6.9 (6.3-8.2) g/dL Albumin 3.5 (3.5-5.0) g/dL Globulin 3.4 (1.7-4.1) g/dL Albumin/Globulin Ratio 1.0 (1.0-2.8) Urine Color Urine Appearance Urine pH (4.5-8.0) Ur Specific [place] (1.000-1.035) Urine Protein (Negative) Urine Glucose (UA) (Normal) g/dL Urine Ketones (NEGATIVE) Urine Occult Blood (Negative) Urine Nitrate (Negative) Urine Bilirubin (NEGATIVE) Urine Urobilinogen (0.2) E.U./dL Ur Leukocyte Esterase (NEGATIVE) Urine RBC (0-5/HPF) Urine WBC (0-5/HPF) Ur Squamous Epith Cells Urine Bacteria (None) Ur Culture Indicated? Micro UA Comment Digoxin (0.8-2.0) ng/mL 06/04/18 06/04/18 Range/Units Unknown Unknown WBC (4.5-11.0) X10^3/uL RBC (4.0-5.2) X10^6/uL Hgb (12.0-16.0) g/dL Hct (36-46) % MCV (80-100) fL MCH (26-34) PG MCHC (30-36) % RDW (11.6-14.8) % Plt Count (150-400) X10^3/uL Neut % (Auto) (50-75) % Lymph % (Auto) (25-40) % [place] % (Auto) (3-14) % Eos % (Auto) (2-4) % Baso % (Auto) (0-2) % Neut # (Auto) (0338-5181) /uL RBC Morphology Hypochromasia Anisocytosis Microcytosis PT (10.1-12.7) SECONDS INR (0.9-1.3) Sodium (137-145) mmol/L Potassium (3.4-5.1) mmol/L Chloride (98-107) mmol/L Carbon Dioxide (22-32) mmol/L BUN (7-17) mg/dL Creatinine (0.52-1.04) mg/dL Estimated GFR (>60) mL/min BUN/Creatinine Ratio (6-22) Glucose (80-110) mg/dL Lactate (0.7-2.1) mmol/L Calcium (8.4-10.2) mg/dL Magnesium (1.6-2.3) mg/dL Total Bilirubin (0.2-1.3) mg/dL AST (14-36) IU/L ALT (9-52) IU/L Alkaline Phosphatase (38-126) U/L B-Natriuretic Peptide 137.0 H (<100) Total Protein (6.3-8.2) g/dL Albumin (3.5-5.0) g/dL Globulin (1.7-4.1) g/dL Albumin/Globulin Ratio (1.0-2.8) Urine Color Urine Appearance Urine pH (4.5-8.0) Ur Specific [place] (1.000-1.035) Urine Protein (Negative) Urine Glucose (UA) (Normal) g/dL Urine Ketones (NEGATIVE) Urine Occult Blood (Negative) Urine Nitrate (Negative) Urine Bilirubin (NEGATIVE) Urine Urobilinogen (0.2) E.U./dL Ur Leukocyte Esterase (NEGATIVE) Urine RBC (0-5/HPF) Urine WBC (0-5/HPF) Ur Squamous Epith Cells Urine Bacteria (None) Ur Culture Indicated? Micro UA Comment Digoxin 0.6 L (0.8-2.0) ng/mL Discharge Plan Departure Patient Disposition: Home, Self-Care Clinical Impression: Osteoarthritis, Edema due to congestive heart failure, Supratherapeutic INR Discharge Date/Time: 06/04/18 16:35 Interventions: ED Discharge Assessment Last Done: 06/04/18 16:29 Instructions: DI for Dependent Edema, DI for Knee Pain Activity Restrictions/Additional Instructions: Please elevate your knee as much as possible to help with the swelling. The swelling in her leg has likely exacerbated your arthritis. On your x-ray looks like there may be a little bit of fluid buildup and congestion around her heart, so we have given you a diuretic called furosemide to help with that. Please take once daily in the morning starting tomorrow. You need to follow up with your PCP closely and we have scheduled you an appointment for tomorrow, 06/05, 9:45 a.m. check in. You should also be wearing or oxygen / as your levels are quite low, and this is undoubtedly making you more tired and sleepy. Your INR/Coumadin level is elevated today, and you should not take anymore Coumadin until you follow up with your PCP. This level should be rechecked and you should get instructions from your PCP on when to restart. Please return as we talked about if you are feeling acutely worse Prescriptions: New potassium chloride 10 mEq capsule, extended release 10 meq PO DAILY Qty: 5 RF: 0 furosemide [Lasix] 20 mg tablet 20 mg PO QAM Qty: 5 RF: 0 No Action gabapentin [Neurontin] 300 MG capsule 600 mg PO Q6H Qty: 0 RF: 0 fluticasone [Flonase Allergy Relief] 9.9 ML spray,suspension 2 spray Intranasal QDAY Qty: 0 RF: 0 hydrochlorothiazide 12.5 MG capsule 1 - 2 cap PO QDAYP PRN (Reason: Edema) Qty: 0 RF: 0 metformin [Glucophage] 500 mg tablet 500 mg PO BIDWM RF: 0 oxybutynin chloride 10 mg tablet extended release 24hr 10 mg PO DAILY RF: 0 triamcinolone acetonide 0.1 % ointment 1 applic Topical BID RF: 0 ursodiol 300 mg capsule 300 mg PO BID RF: 0 aspirin 81 mg Tablet,Delayed Release (Dr/Ec) 81 mg PO DAILY RF: 0 hydrocodone-acetaminophen 7.5-325 mg Tablet 1 tab PO Q6H PRN (Reason: Pain, Moderate) RF: 0 albuterol sulfate 90 mcg/actuation Hfa Aerosol Inhaler 2 puff Inhalation Q4-6H PRN (Reason: Shortness Of Breath) RF: 0 atorvastatin [Lipitor] 10 mg Tablet 10 mg PO BEDTIME Qty: 30 RF: 0 metoprolol succinate 50 mg Tablet Extended Release 24 Hr 100 mg PO DAILY Qty: 30 RF: 0 diltiazem HCl 240 mg Capsule,Extended Release 24hr 240 mg PO DAILY Qty: 30 RF: 0 digoxin 125 mcg Tablet 0.125 mg PO DAILY@1700 Qty: 30 RF: 0 losartan 50 mg tablet 50 mg PO DAILY RF: 0 warfarin [Coumadin] 5 mg tablet 10 mg PO 1700 RF: 0 Referrals: Johnny Saini MD [Non-Staff] - <Davy Avalos DO - Last Filed: 06/04/18 18:14> [facility] Attestation: I was available for consultation during this patient's emergency department encounter
--- NOTE | 2018-06-04 12:26 | DI.RAD.S_ITS ---
PROCEDURE: XR CHEST 1V INDICATIONS: emphysema, weakness TECHNIQUE: One view of the chest was acquired. COMPARISON: [facility], , CHEST 1 VIEW, 09/29/2017, 23:15. [facility], , XR CHEST 1V, 04/12/2018, 15:49. FINDINGS: Surgical changes and devices: None. Lungs and pleura: No pleural effusions or pneumothorax. Lung volumes are decreased. There are scattered ill-defined groundglass and patchy opacities which appear increased. No definite focal consolidation seen. Mediastinum: Mediastinal contours appear normal. Heart size is normal. Bones and chest wall: No suspicious bony lesions. Overlying soft tissues appear unremarkable. IMPRESSION: Bibasilar patchy ill-defined opacities suspicious for worsening pulmonary edema since 04/02/18. Please correlate clinically to exclude superimposed infection. Dictated by: Chucho Santana M.D. on 06/04/2018 at 13:19 Approved by: Chucho Santana M.D. on 06/04/2018 at 13:21
--- NOTE | 2018-06-04 12:28 | DI.US.S_ITS ---
PROCEDURE: US PERIPH VENOUS LOW EXTREM RT INDICATIONS: RIGHT CALF PAIN, EDEMA TECHNIQUE: Real-time imaging, as well as color and pulse Doppler interrogation, were performed of the lower extremity deep veins from the inguinal ligament to the popliteal fossa. COMPARISON: None. FINDINGS: The deep veins are normally compressible, and free of intraluminal thrombus. Color and pulse Doppler demonstrate normal phasic intraluminal flow. There is normal augmentation response to distal compression maneuver. IMPRESSION: No evidence of deep venous thrombosis Dictated by: Chucho Santana M.D. on 06/04/2018 at 13:21 Approved by: Chucho Santana M.D. on 06/04/2018 at 13:22
--- NOTE | 2018-06-04 12:36 | ED_ITS ---
HPI - Extremity Problem <Jody Simmons PA-C - Last Filed: 06/04/18 17:21> General Chief complaint: Extremity Problem,Nontraumatic Stated complaint: FALL, TIRED Time Seen by Provider: 06/04/18 12:05 Source: patient, family (caregiver) and old records reviewed Mode of arrival: EMS Limitations: no limitations History of Present Illness HPI Narrative: This 67-year-old female returns to the ED today due to mainly recurrent right knee pain that is keeping her from ambulating. She states ?my family and caregiver would not let me alone? and states that is why she came in , however she does admit to increased pain and also generalized fatigue. Her caregiver has noted she has seemed more fatigued and weak in general lately though no acute change today. She has been unable to get out of her chair on her own due to the knee pain when normally she would be able to ambulate with the walker. She has had episodes where she falls asleep in her chair which is maybe 6 or 8 in off the ground and slumps forward onto the floor while asleep. She states she has never had any injury with this including last episode a couple of days ago. Caregiver states that she will notice patient seems more tired and slow in general, she will occasionally have slurred speech and slower to answer questions when she is over tired, however again this has been an ongoing issue without acute changes. Neither patient nor caregiver have noted any focal weakness, difficulty with speech, swallowing, or vision. Patient denies any fever, chills, sweats or recent illness. She denies any increased dyspnea or new cough. She denies any chest pain or palpitations. She denies any abdominal pain, urinary symptoms, diarrhea or bowel changes. She states that her appetite is normal. She admits that she is supposed to be wearing her oxygen at home but never does, O2 sats typically 80% or even a little bit less off of oxygen. EMS is here today and note they have been called multiple times a day recently to get the patient up or off of the floor Related Data Home Medications Medication Instructions Recorded Confirmed gabapentin [Neurontin] 600 mg PO Q6H #0 02/01/11 06/04/18 fluticasone [Flonase Allergy 2 spray INTRANASAL QDAY #0 09/28/17 06/04/18 Relief] hydrochlorothiazide 1 - 2 cap PO QDAYP PRN #0 09/28/17 06/04/18 albuterol sulfate 2 puff INHALATION Q4-6H PRN 04/12/18 06/04/18 aspirin 81 mg PO DAILY 04/12/18 06/04/18 hydrocodone-acetaminophen 1 tab PO Q6H PRN 04/12/18 06/04/18 metformin [Glucophage] 500 mg PO BIDWM 04/12/18 06/04/18 oxybutynin chloride 10 mg PO DAILY 04/12/18 06/04/18 triamcinolone acetonide 1 applic TOPICAL BID 04/12/18 06/04/18 ursodiol 300 mg PO BID 04/12/18 06/04/18 losartan 50 mg PO DAILY 06/04/18 06/04/18 warfarin [Coumadin] 10 mg PO 1700 06/04/18 06/04/18 Previous Rx's Medication Instructions Recorded atorvastatin [Lipitor] 10 mg PO BEDTIME #30 tab 04/15/18 digoxin 0.125 mg PO DAILY@1700 #30 tab 04/15/18 diltiazem HCl 240 mg PO DAILY #30 cap 04/15/18 metoprolol succinate 100 mg PO DAILY #30 tab 04/15/18 furosemide [Lasix] 20 mg PO QAM #5 tab 06/04/18 potassium chloride 10 meq PO DAILY #5 cap 06/04/18 Allergies Allergy/AdvReac Type Severity Reaction Status Date / Time captopril [CAPTOPRIL] Allergy Unknown Verified 06/04/18 13:44 nabumetone [NABUMETONE] Allergy Unknown Rash Verified 06/04/18 13:44 Review of Systems <Jody Simmosn PA-C - Last Filed: 06/04/18 17:21> Review of Systems All systems reviewed & are unremarkable except as noted in HPI and below Exam <Jody Simmons PA-C - Last Filed: 06/04/18 17:21> Narrative Exam Narrative: GENERAL APPEARANCE: Patient sitting comfortably, in no distress. HEENT: PERRL, EOMI, NECK: Supple, no masses LUNGS: Generalized reduced breath sounds with occasional soft expiratory wheeze , no clear crackles, no cough on exam HEART: Rate and rhythm regular, normal S1 and S2, no S3 or S4. Heart tones are distant ABDOMEN: Soft, obese, nontender, nondistended, bowel sounds present x 4 quadrants, no masses palpable EXTREMITIES: Venous stasis skin changes bilateral lower extremities with some brawny edema, trace pitting on the left and mild pitting on the left. Left calf is nontender, right is tender to palpation. DERMATOLOGIC: No jaundice or exanthem NEUROLOGIC: Alert and oriented with normal speech and coordination Initial Vital Signs Initial Vital Signs: Vital Signs Temperature 97.2 F L 06/04/18 11:45 Pulse Rate 57 L 06/04/18 11:45 Respiratory Rate 16 06/04/18 11:45 Blood Pressure 104/63 06/04/18 11:45 Pulse Oximetry 80 L 06/04/18 11:45 <Davy Avalos DO - Last Filed: 06/04/18 18:14> Initial Vital Signs Initial Vital Signs: Vital Signs Temperature 97.2 F L 06/04/18 11:45 Pulse Rate 57 L 06/04/18 11:45 Respiratory Rate 16 06/04/18 11:45 Blood Pressure 104/63 06/04/18 11:45 Pulse Oximetry 80 L 06/04/18 11:45 Course <Jody Simmons PA-C - Last Filed: 06/04/18 17:21> Additional Information: Patient appears comfortable currently and requests to be discharged home. Physical therapy has evaluated her, happened to be the same physical therapist as her last hospitalization and reports that she is at baseline in terms of her mobility, was able to walk a few steps with her walker. Patient is not sure whether she has history of CHF. She has slept in a chair for a very long time because it is easier for her to breathe. She denies any acute changes in her breathing, any new cough or other symptoms however her caregiver has noticed some increased cough recently. Reviewed findings with Dr. Avalos who agrees there is not a clear indication for admission here as patient can potentially be treated as an outpatient. She was given furosemide here and reported feeling significantly improved prior to d/c. She was also supratherapeutic on INR and advised to stop warfarin until follow -up with PCP and recheck labs. She and her caregiver are agreeable with this plan as well as to return if any acutely worsening symptoms. PCP follow-up is scheduled for tomorrow Orders Ordered: ED Orders 06/04/18 12:26 Consult to Physical Therapy Evaluate & Treat XR chest 1V Stat Urinalysis and Microscopic Stat 06/04/18 12:28 Consult to Physical Therapy Evaluate & Treat US periph venous low extrem rt Stat 06/04/18 13:00 Complete Blood Count AUTO DIFF Stat Comprehensive Metabolic Panel Stat Lactate (Lactic Acid) Stat Magnesium Stat Prothrombin Time INR Stat Discontinued Medications Furosemide (Lasix) 40 mg IV NOW ONE Stop: 06/04/18 13:34 Last Admin: 06/04/18 14:00 Dose: 40 mg Sodium Chloride (Normal Saline 0.9%) 1,000 mls @ 1,000 mls/hr IV BOLUS PRN PRN Reason: Fluid replacement Potassium Chloride (Klor-Con M10) 10 meq PO NOW ONE Stop: 06/04/18 13:34 Last Admin: 06/04/18 14:00 Dose: 10 meq Vital Signs - 8 hr 06/04/18 11:45 06/04/18 14:57 Temperature 97.2 F L Pulse Rate 57 L 58 L Respiratory Rate 16 18 Blood Pressure 104/63 Blood Pressure [Left Wrist] 129/72 H Pulse Oximetry 80 L 95 <Davy Avalos DO - Last Filed: 06/04/18 18:14> Orders Ordered: ED Orders 06/04/18 12:26 Consult to Physical Therapy Evaluate & Treat XR chest 1V Stat Urinalysis and Microscopic Stat 06/04/18 12:28 Consult to Physical Therapy Evaluate & Treat US periph venous low extrem rt Stat 06/04/18 13:00 Complete Blood Count AUTO DIFF Stat Comprehensive Metabolic Panel Stat Lactate (Lactic Acid) Stat Magnesium Stat Prothrombin Time INR Stat Discontinued Medications Furosemide (Lasix) 40 mg IV NOW ONE Stop: 06/04/18 13:34 Last Admin: 06/04/18 14:00 Dose: 40 mg Sodium Chloride (Normal Saline 0.9%) 1,000 mls @ 1,000 mls/hr IV BOLUS PRN PRN Reason: Fluid replacement Potassium Chloride (Klor-Con M10) 10 meq PO NOW ONE Stop: 06/04/18 13:34 Last Admin: 06/04/18 14:00 Dose: 10 meq Vital Signs - 8 hr 06/04/18 11:45 06/04/18 14:57 Temperature 97.2 F L Pulse Rate 57 L 58 L Respiratory Rate 16 18 Blood Pressure 104/63 Blood Pressure [Left Wrist] 129/72 H Pulse Oximetry 80 L 95 MDM - Extremity (Nontraumatic) <Jody Simmons PA-C - Last Filed: 06/04/18 17:21> Lab Data Attestation: I reviewed the patient's lab results. Result diagrams: 06/04/18 13:00 06/04/18 13:00 Lab Results 06/04/18 06/04/18 06/04/18 Range/Units 12:26 13:00 13:00 WBC 11.0 (4.5-11.0) X10^3/uL RBC 4.81 (4.0-5.2) X10^6/uL Hgb 11.3 L (12.0-16.0) g/dL Hct 37.0 (36-46) % MCV 77.0 L (80-100) fL MCH 23.5 L (26-34) PG MCHC 30.5 (30-36) % RDW 22.0 H (11.6-14.8) % Plt Count 326 (150-400) X10^3/uL Neut % (Auto) 79.4 H (50-75) % Lymph % (Auto) 11.7 L (25-40) % [place] % (Auto) 6.6 (3-14) % Eos % (Auto) 1.9 L (2-4) % Baso % (Auto) 0.4 (0-2) % Neut # (Auto) 8700 H (2395-0253) /uL RBC Morphology Not Reportable Hypochromasia 1+ H Anisocytosis 3+ H Microcytosis 1+ H PT 61.3 H (10.1-12.7) SECONDS INR 5.7 H* (0.9-1.3) Sodium (137-145) mmol/L Potassium (3.4-5.1) mmol/L Chloride (98-107) mmol/L Carbon Dioxide (22-32) mmol/L BUN (7-17) mg/dL Creatinine (0.52-1.04) mg/dL Estimated GFR (>60) mL/min BUN/Creatinine Ratio (6-22) Glucose (80-110) mg/dL Lactate (0.7-2.1) mmol/L Calcium (8.4-10.2) mg/dL Magnesium (1.6-2.3) mg/dL Total Bilirubin (0.2-1.3) mg/dL AST (14-36) IU/L ALT (9-52) IU/L Alkaline Phosphatase (38-126) U/L B-Natriuretic Peptide (<100) Total Protein (6.3-8.2) g/dL Albumin (3.5-5.0) g/dL Globulin (1.7-4.1) g/dL Albumin/Globulin Ratio (1.0-2.8) Urine Color Yellow Urine Appearance Clear Urine pH 6.5 (4.5-8.0) Ur Specific [place] 1.015 (1.000-1.035) Urine Protein Trace H (Negative) Urine Glucose (UA) Negative (Normal) g/dL Urine Ketones Negative (NEGATIVE) Urine Occult Blood Negative (Negative) Urine Nitrate Negative (Negative) Urine Bilirubin Negative (NEGATIVE) Urine Urobilinogen 4.0 H (0.2) E.U./dL Ur Leukocyte Esterase Negative (NEGATIVE) Urine RBC None seen (0-5/HPF) Urine WBC None seen (0-5/HPF) Ur Squamous Epith Cells 5-10 /hpf H Urine Bacteria None seen (None) Ur Culture Indicated? Cult not indicated Micro UA Comment Not Reportable Digoxin (0.8-2.0) ng/mL 06/04/18 06/04/18 06/04/18 Range/Units 13:00 13:00 13:33 WBC (4.5-11.0) X10^3/uL RBC (4.0-5.2) X10^6/uL Hgb (12.0-16.0) g/dL Hct (36-46) % MCV (80-100) fL MCH (26-34) PG MCHC (30-36) % RDW (11.6-14.8) % Plt Count (150-400) X10^3/uL Neut % (Auto) (50-75) % Lymph % (Auto) (25-40) % [place] % (Auto) (3-14) % Eos % (Auto) (2-4) % Baso % (Auto) (0-2) % Neut # (Auto) (2761-9156) /uL RBC Morphology Hypochromasia Anisocytosis Microcytosis PT (10.1-12.7) SECONDS INR (0.9-1.3) Sodium 137 (137-145) mmol/L Potassium 4.3 (3.4-5.1) mmol/L Chloride 91 L (98-107) mmol/L Carbon Dioxide 39 H (22-32) mmol/L BUN 14 (7-17) mg/dL Creatinine 0.60 (0.52-1.04) mg/dL Estimated GFR > 60.0 (>60) mL/min BUN/Creatinine Ratio 23.3 H (6-22) Glucose 139 H (80-110) mg/dL Lactate 1.6 (0.7-2.1) mmol/L Calcium 8.5 (8.4-10.2) mg/dL Magnesium 1.8 Cancelled (1.6-2.3) mg/dL Total Bilirubin 0.9 (0.2-1.3) mg/dL AST 44 H (14-36) IU/L ALT 24 (9-52) IU/L Alkaline Phosphatase 65 (38-126) U/L B-Natriuretic Peptide (<100) Total Protein 6.9 (6.3-8.2) g/dL Albumin 3.5 (3.5-5.0) g/dL Globulin 3.4 (1.7-4.1) g/dL Albumin/Globulin Ratio 1.0 (1.0-2.8) Urine Color Urine Appearance Urine pH (4.5-8.0) Ur Specific [place] (1.000-1.035) Urine Protein (Negative) Urine Glucose (UA) (Normal) g/dL Urine Ketones (NEGATIVE) Urine Occult Blood (Negative) Urine Nitrate (Negative) Urine Bilirubin (NEGATIVE) Urine Urobilinogen (0.2) E.U./dL Ur Leukocyte Esterase (NEGATIVE) Urine RBC (0-5/HPF) Urine WBC (0-5/HPF) Ur Squamous Epith Cells Urine Bacteria (None) Ur Culture Indicated? Micro UA Comment Digoxin (0.8-2.0) ng/mL 06/04/18 06/04/18 Range/Units Unknown Unknown WBC (4.5-11.0) X10^3/uL RBC (4.0-5.2) X10^6/uL Hgb (12.0-16.0) g/dL Hct (36-46) % MCV (80-100) fL MCH (26-34) PG MCHC (30-36) % RDW (11.6-14.8) % Plt Count (150-400) X10^3/uL Neut % (Auto) (50-75) % Lymph % (Auto) (25-40) % [place] % (Auto) (3-14) % Eos % (Auto) (2-4) % Baso % (Auto) (0-2) % Neut # (Auto) (8363-1347) /uL RBC Morphology Hypochromasia Anisocytosis Microcytosis PT (10.1-12.7) SECONDS INR (0.9-1.3) Sodium (137-145) mmol/L Potassium (3.4-5.1) mmol/L Chloride (98-107) mmol/L Carbon Dioxide (22-32) mmol/L BUN (7-17) mg/dL Creatinine (0.52-1.04) mg/dL Estimated GFR (>60) mL/min BUN/Creatinine Ratio (6-22) Glucose (80-110) mg/dL Lactate (0.7-2.1) mmol/L Calcium (8.4-10.2) mg/dL Magnesium (1.6-2.3) mg/dL Total Bilirubin (0.2-1.3) mg/dL AST (14-36) IU/L ALT (9-52) IU/L Alkaline Phosphatase (38-126) U/L B-Natriuretic Peptide 137.0 H (<100) Total Protein (6.3-8.2) g/dL Albumin (3.5-5.0) g/dL Globulin (1.7-4.1) g/dL Albumin/Globulin Ratio (1.0-2.8) Urine Color Urine Appearance Urine pH (4.5-8.0) Ur Specific [place] (1.000-1.035) Urine Protein (Negative) Urine Glucose (UA) (Normal) g/dL Urine Ketones (NEGATIVE) Urine Occult Blood (Negative) Urine Nitrate (Negative) Urine Bilirubin (NEGATIVE) Urine Urobilinogen (0.2) E.U./dL Ur Leukocyte Esterase (NEGATIVE) Urine RBC (0-5/HPF) Urine WBC (0-5/HPF) Ur Squamous Epith Cells Urine Bacteria (None) Ur Culture Indicated? Micro UA Comment Digoxin 0.6 L (0.8-2.0) ng/mL Imaging Data Chest x-ray: Radiologist's impression: [address] [address] XRay Report Signed Patient: Alem Donahue MR#: [id number] : 1950 Acct:[id number] Age/Sex: 67 / F Date of Service: 06/04/18 Loc: ED Accession Number: [id number] Procedure: XR chest 1V Ordering Provider: Jody Simmons P.A-C PROCEDURE: XR CHEST 1V INDICATIONS: emphysema, weakness TECHNIQUE: One view of the chest was acquired. COMPARISON: [facility], , CHEST 1 VIEW, 09/29/2017, 23:15. [facility], , XR CHEST 1V, 04/12/2018, 15:49. FINDINGS: Surgical changes and devices: None. Lungs and pleura: No pleural effusions or pneumothorax. Lung volumes are decreased. There are scattered ill-defined groundglass and patchy opacities which appear increased. No definite focal consolidation seen. Mediastinum: Mediastinal contours appear normal. Heart size is normal. Bones and chest wall: No suspicious bony lesions. Overlying soft tissues appear unremarkable. IMPRESSION: Bibasilar patchy ill-defined opacities suspicious for worsening pulmonary edema since 04/02/18. Please correlate clinically to exclude superimposed infection. Dictated by: Chucho Santana M.D. on 06/04/2018 at 13:19 Approved by: Chucho Santana M.D. on 06/04/2018 at 13:21 Venous US: Radiologist's impression: View Report History Print [address] [address] Ultrasound Report Signed Patient: Alem Donahue MR#: [id number] : 1950 Acct:[id number] Age/Sex: 67 / F Date of Service: 06/04/18 Loc: ED Accession Number: [id number] Procedure: US periph venous low extrem rt Ordering Provider: Jody Simmons P.A-C PROCEDURE: US PERIPH VENOUS LOW EXTREM RT INDICATIONS: RIGHT CALF PAIN, EDEMA TECHNIQUE: Real-time imaging, as well as color and pulse Doppler interrogation, were performed of the lower extremity deep veins from the inguinal ligament to the popliteal fossa. COMPARISON: None. FINDINGS: The deep veins are normally compressible, and free of intraluminal thrombus. Color and pulse Doppler demonstrate normal phasic intraluminal flow. There is normal augmentation response to distal compression maneuver. IMPRESSION: No evidence of deep venous thrombosis Dictated by: Chucho Santana M.D. on 06/04/2018 at 13:21 Approved by: Chucho Santana M.D. on 06/04/2018 at 13:22 <Davy Avalos DO - Last Filed: 06/04/18 18:14> Lab Data Lab Results 06/04/18 06/04/18 06/04/18 Range/Units 12:26 13:00 13:00 WBC 11.0 (4.5-11.0) X10^3/uL RBC 4.81 (4.0-5.2) X10^6/uL Hgb 11.3 L (12.0-16.0) g/dL Hct 37.0 (36-46) % MCV 77.0 L (80-100) fL MCH 23.5 L (26-34) PG MCHC 30.5 (30-36) % RDW 22.0 H (11.6-14.8) % Plt Count 326 (150-400) X10^3/uL Neut % (Auto) 79.4 H (50-75) % Lymph % (Auto) 11.7 L (25-40) % [place] % (Auto) 6.6 (3-14) % Eos % (Auto) 1.9 L (2-4) % Baso % (Auto) 0.4 (0-2) % Neut # (Auto) 8700 H (2530-4913) /uL RBC Morphology Not Reportable Hypochromasia 1+ H Anisocytosis 3+ H Microcytosis 1+ H PT 61.3 H (10.1-12.7) SECONDS INR 5.7 H* (0.9-1.3) Sodium (137-145) mmol/L Potassium (3.4-5.1) mmol/L Chloride (98-107) mmol/L Carbon Dioxide (22-32) mmol/L BUN (7-17) mg/dL Creatinine (0.52-1.04) mg/dL Estimated GFR (>60) mL/min BUN/Creatinine Ratio (6-22) Glucose (80-110) mg/dL Lactate (0.7-2.1) mmol/L Calcium (8.4-10.2) mg/dL Magnesium (1.6-2.3) mg/dL Total Bilirubin (0.2-1.3) mg/dL AST (14-36) IU/L ALT (9-52) IU/L Alkaline Phosphatase (38-126) U/L B-Natriuretic Peptide (<100) Total Protein (6.3-8.2) g/dL Albumin (3.5-5.0) g/dL Globulin (1.7-4.1) g/dL Albumin/Globulin Ratio (1.0-2.8) Urine Color Yellow Urine Appearance Clear Urine pH 6.5 (4.5-8.0) Ur Specific [place] 1.015 (1.000-1.035) Urine Protein Trace H (Negative) Urine Glucose (UA) Negative (Normal) g/dL Urine Ketones Negative (NEGATIVE) Urine Occult Blood Negative (Negative) Urine Nitrate Negative (Negative) Urine Bilirubin Negative (NEGATIVE) Urine Urobilinogen 4.0 H (0.2) E.U./dL Ur Leukocyte Esterase Negative (NEGATIVE) Urine RBC None seen (0-5/HPF) Urine WBC None seen (0-5/HPF) Ur Squamous Epith Cells 5-10 /hpf H Urine Bacteria None seen (None) Ur Culture Indicated? Cult not indicated Micro UA Comment Not Reportable Digoxin (0.8-2.0) ng/mL 06/04/18 06/04/18 06/04/18 Range/Units 13:00 13:00 13:33 WBC (4.5-11.0) X10^3/uL RBC (4.0-5.2) X10^6/uL Hgb (12.0-16.0) g/dL Hct (36-46) % MCV (80-100) fL MCH (26-34) PG MCHC (30-36) % RDW (11.6-14.8) % Plt Count (150-400) X10^3/uL Neut % (Auto) (50-75) % Lymph % (Auto) (25-40) % [place] % (Auto) (3-14) % Eos % (Auto) (2-4) % Baso % (Auto) (0-2) % Neut # (Auto) (8161-1077) /uL RBC Morphology Hypochromasia Anisocytosis Microcytosis PT (10.1-12.7) SECONDS INR (0.9-1.3) Sodium 137 (137-145) mmol/L Potassium 4.3 (3.4-5.1) mmol/L Chloride 91 L (98-107) mmol/L Carbon Dioxide 39 H (22-32) mmol/L BUN 14 (7-17) mg/dL Creatinine 0.60 (0.52-1.04) mg/dL Estimated GFR > 60.0 (>60) mL/min BUN/Creatinine Ratio 23.3 H (6-22) Glucose 139 H (80-110) mg/dL Lactate 1.6 (0.7-2.1) mmol/L Calcium 8.5 (8.4-10.2) mg/dL Magnesium 1.8 Cancelled (1.6-2.3) mg/dL Total Bilirubin 0.9 (0.2-1.3) mg/dL AST 44 H (14-36) IU/L ALT 24 (9-52) IU/L Alkaline Phosphatase 65 (38-126) U/L B-Natriuretic Peptide (<100) Total Protein 6.9 (6.3-8.2) g/dL Albumin 3.5 (3.5-5.0) g/dL Globulin 3.4 (1.7-4.1) g/dL Albumin/Globulin Ratio 1.0 (1.0-2.8) Urine Color Urine Appearance Urine pH (4.5-8.0) Ur Specific [place] (1.000-1.035) Urine Protein (Negative) Urine Glucose (UA) (Normal) g/dL Urine Ketones (NEGATIVE) Urine Occult Blood (Negative) Urine Nitrate (Negative) Urine Bilirubin (NEGATIVE) Urine Urobilinogen (0.2) E.U./dL Ur Leukocyte Esterase (NEGATIVE) Urine RBC (0-5/HPF) Urine WBC (0-5/HPF) Ur Squamous Epith Cells Urine Bacteria (None) Ur Culture Indicated? Micro UA Comment Digoxin (0.8-2.0) ng/mL 06/04/18 06/04/18 Range/Units Unknown Unknown WBC (4.5-11.0) X10^3/uL RBC (4.0-5.2) X10^6/uL Hgb (12.0-16.0) g/dL Hct (36-46) % MCV (80-100) fL MCH (26-34) PG MCHC (30-36) % RDW (11.6-14.8) % Plt Count (150-400) X10^3/uL Neut % (Auto) (50-75) % Lymph % (Auto) (25-40) % [place] % (Auto) (3-14) % Eos % (Auto) (2-4) % Baso % (Auto) (0-2) % Neut # (Auto) (8794-2902) /uL RBC Morphology Hypochromasia Anisocytosis Microcytosis PT (10.1-12.7) SECONDS INR (0.9-1.3) Sodium (137-145) mmol/L Potassium (3.4-5.1) mmol/L Chloride (98-107) mmol/L Carbon Dioxide (22-32) mmol/L BUN (7-17) mg/dL Creatinine (0.52-1.04) mg/dL Estimated GFR (>60) mL/min BUN/Creatinine Ratio (6-22) Glucose (80-110) mg/dL Lactate (0.7-2.1) mmol/L Calcium (8.4-10.2) mg/dL Magnesium (1.6-2.3) mg/dL Total Bilirubin (0.2-1.3) mg/dL AST (14-36) IU/L ALT (9-52) IU/L Alkaline Phosphatase (38-126) U/L B-Natriuretic Peptide 137.0 H (<100) Total Protein (6.3-8.2) g/dL Albumin (3.5-5.0) g/dL Globulin (1.7-4.1) g/dL Albumin/Globulin Ratio (1.0-2.8) Urine Color Urine Appearance Urine pH (4.5-8.0) Ur Specific [place] (1.000-1.035) Urine Protein (Negative) Urine Glucose (UA) (Normal) g/dL Urine Ketones (NEGATIVE) Urine Occult Blood (Negative) Urine Nitrate (Negative) Urine Bilirubin (NEGATIVE) Urine Urobilinogen (0.2) E.U./dL Ur Leukocyte Esterase (NEGATIVE) Urine RBC (0-5/HPF) Urine WBC (0-5/HPF) Ur Squamous Epith Cells Urine Bacteria (None) Ur Culture Indicated? Micro UA Comment Digoxin 0.6 L (0.8-2.0) ng/mL Discharge Plan Departure Patient Disposition: Home, Self-Care Clinical Impression: Osteoarthritis, Edema due to congestive heart failure, Supratherapeutic INR Discharge Date/Time: 06/04/18 16:35 Interventions: ED Discharge Assessment Last Done: 06/04/18 16:29 Instructions: DI for Dependent Edema, DI for Knee Pain Activity Restrictions/Additional Instructions: Please elevate your knee as much as possible to help with the swelling. The swelling in her leg has likely exacerbated your arthritis. On your x-ray looks like there may be a little bit of fluid buildup and congestion around her heart , so we have given you a diuretic called furosemide to help with that. Please take once daily in the morning starting tomorrow. You need to follow up with your PCP closely and we have scheduled you an appointment for tomorrow, 06/05, 9: 45 a.m. check in. You should also be wearing or oxygen / as your levels are quite low, and this is undoubtedly making you more tired and sleepy. Your INR/Coumadin level is elevated today, and you should not take anymore Coumadin until you follow up with your PCP. This level should be rechecked and you should get instructions from your PCP on when to restart. Please return as we talked about if you are feeling acutely worse Prescriptions: New potassium chloride 10 mEq capsule, extended release 10 meq PO DAILY Qty: 5 RF: 0 furosemide [Lasix] 20 mg tablet 20 mg PO QAM Qty: 5 RF: 0 No Action gabapentin [Neurontin] 300 MG capsule 600 mg PO Q6H Qty: 0 RF: 0 fluticasone [Flonase Allergy Relief] 9.9 ML spray,suspension 2 spray Intranasal QDAY Qty: 0 RF: 0 hydrochlorothiazide 12.5 MG capsule 1 - 2 cap PO QDAYP PRN (Reason: Edema) Qty: 0 RF: 0 metformin [Glucophage] 500 mg tablet 500 mg PO BIDWM RF: 0 oxybutynin chloride 10 mg tablet extended release 24hr 10 mg PO DAILY RF: 0 triamcinolone acetonide 0.1 % ointment 1 applic Topical BID RF: 0 ursodiol 300 mg capsule 300 mg PO BID RF: 0 aspirin 81 mg Tablet,Delayed Release (Dr/Ec) 81 mg PO DAILY RF: 0 hydrocodone-acetaminophen 7.5-325 mg Tablet 1 tab PO Q6H PRN (Reason: Pain, Moderate) RF: 0 albuterol sulfate 90 mcg/actuation Hfa Aerosol Inhaler 2 puff Inhalation Q4-6H PRN (Reason: Shortness Of Breath) RF: 0 atorvastatin [Lipitor] 10 mg Tablet 10 mg PO BEDTIME Qty: 30 RF: 0 metoprolol succinate 50 mg Tablet Extended Release 24 Hr 100 mg PO DAILY Qty: 30 RF: 0 diltiazem HCl 240 mg Capsule,Extended Release 24hr 240 mg PO DAILY Qty: 30 RF: 0 digoxin 125 mcg Tablet 0.125 mg PO DAILY@1700 Qty: 30 RF: 0 losartan 50 mg tablet 50 mg PO DAILY RF: 0 warfarin [Coumadin] 5 mg tablet 10 mg PO 1700 RF: 0 Referrals: Johnny Saini MD [Non-Staff] - <Davy Avalos DO - Last Filed: 06/04/18 18:14> [facility] I was available for consultation during this patient's emergency department encounter
[2018-06-04 13:18] LABS: Add Manual Diff / Slide Review NO; Basophils Percent Auto 0.4 % (0-2); Eosinophils Percent Auto 1.9 % (2-4); Hemoglobin 11.3 g/dL (12.0-16.0); Lymphocytes Percent Auto 11.7 % (25-40); Mean Corpuscular HGB Conc 30.5 % (30-36); Mean Corpuscular Hemoglobin 23.5 PG (26-34); Monocytes Percent Auto 6.6 % (3-14); Neutrophils Absolute Auto 8700 /uL (3000-5900); Neutrophils Percent Auto 79.4 % (50-75); Platelet Count 326 X10^3/uL (150-400); Red Blood Cell Count 4.81 X10^6/uL (4.0-5.2)
[2018-06-04 13:23] LABS: Alanine Aminotransferase 24 IU/L (9-52); Albumin 3.5 g/dL (3.5-5.0); Alkaline Phosphatase 65 U/L (38-126); Aspartate Aminotransferase 44 IU/L (14-36); BUN Creatinine Ratio 23.3 (6-22); Bilirubin Total 0.9 mg/dL (0.2-1.3); Blood Urea Nitrogen 14 mg/dL (7-17); Calcium 8.5 mg/dL (8.4-10.2); Chloride 91 mmol/L (98-107); Estimated Glomerular Filt Rate > 60.0 mL/min (>60); Globulin 3.4 g/dL (1.7-4.1); Glucose 139 mg/dL (80-110); Lactate (Lactic Acid) 1.6 mmol/L (0.7-2.1); Sodium 137 mmol/L (137-145); Total Protein 6.9 g/dL (6.3-8.2)
[2018-06-04 13:26] LABS: Prothrombin Time 61.3 SECONDS (10.1-12.7)
[2018-06-04 13:28] LABS: INR 5.7 (0.9-1.3)
[2018-06-04 13:31] LABS: Carbon Dioxide 39 mmol/L (22-32)
[2018-06-04 13:32] LABS: HEMOLYSIS 51 (0-50)
[2018-06-04 13:33] LABS: Potassium 4.3 mmol/L (3.4-5.1)
[2018-06-04 13:48] LABS: Microcytosis 1+
[2018-06-04 13:49] LABS: Anisocytosis 3+; Hypochromasia 1+
[2018-06-04] MEDS: FUROSEMIDE 40 MG/4 ML VIAL IV (14:00)
[2018-06-04] MEDS: POTASSIUM CHLORIDE 10 MEQ TAB PO (14:00)
[2018-06-04 14:06] LABS: Bacteria Urine None Seen; RBC Urine None Seen (0-5/HPF); WBC Urine None Seen (0-5/HPF)
[2018-06-04 14:17] LABS: Culture Indicated Urine Cult Not Indicated; Squamous Epithelial Cell Urine 5-10 /HPF
[2018-06-04 14:28] LABS: Appearance Urine UA CLEAR; Bilirubin Urine UA NEGATIVE (NEGATIVE); Color Urine UA YELLOW; Glucose Urine UA NEGATIVE (Normal); Ketones Urine UA NEGATIVE (NEGATIVE); Leukocyte Esterase Urine UA NEGATIVE (NEGATIVE); Nitrite Urine UA Negative (Negative); Occult Blood Urine UA NEGATIVE (Negative); Protein Urine UA TRACE (Negative); Specific Gravity Urine UA 1.015 (1.000-1.035); pH Urine UA 6.5 (4.5-8.0)
[2018-06-04 14:40] LABS: Magnesium 1.8 mg/dL (1.6-2.3)
[2018-06-04 14:50] LABS: Digoxin 0.6 ng/mL (0.8-2.0)
[2018-06-04 14:57] VITALS: BP 129/72; PULSE 58; RESP 18; O2SAT 95
--- NOTE | 2018-06-04 14:59 | PT.IIE ---
Surgical History (Last Updated 06/04/18 @ 12:35 by Jody Simmons PA-C) History of abdominoplasty (Resolved) History of gastric bypass (Resolved) Medical History (Last Updated 06/04/18 @ 12:35 by Jody Simmons PA-C) Atrial fibrillation (Chronic) Obesity (Chronic) Depression (Chronic) Diabetes (Chronic) Hyperlipidemia (Chronic) Hypertension (Chronic) Lumbar degenerative disc disease (Chronic) Osteoarthritis (Chronic) Pneumococcal meningitis (Chronic) Prolapsed bladder (Chronic) Cholelithiasis (Resolved) Fracture of left ankle (Resolved) Inguinal hernia (Resolved) Physical Therapy Inpatient Evaluation/Re-Eval Medical Review Prior Functional Status Medical History Reviewed Yes Diet/Fluid Consistency Regular Communication no known defictis Mobility and Gait mod ind w/ 4WW household distances Activities of Daily Living and IADL's has a paid caregiver for a few hours each day Social History Household Members none Living Arrangements House Number of Floors (Floors) One Floor Number of Stairs To Enter/Railing? 0 Home Environment Tub/Shower Home Equipment Four Wheel Walker Shower Seat without Backrest Employment Status Retired Physical Therapy Current Condition Current Condition Evaluation Date 06/04/18 Treatment Diagnosis impaired mobility Onset Date chronic Subjective Physical Therapy Visit Type Type Initial Evaluation Visit Start Time 12:59 Visit Stop Time 14:00 Total Visit Minutes 61 Physical Therapy Visit Comments Patient Comments Pt reports only coming to the hospital because her kids made her, pt ready to go home right now. Pt admits to not using her home oxygen very much. At the beginning of the session pt having difficulty staying awake. Therapy Pain Assessment Pain When Pain Assessed At Rest Pain Present Pain Present Denied Pain PT-Bed Mobility Assessment Scooting Scooting to Edge of Bed Independent Bed Transfer Assessment Devices Bed Transfer Assistive Devices Standard Walker Bed Rail Technique Bed Transfer Destination Ambulatory Bed Transfer Technique Sit to/from Ambulatory General Evaluation Overall Bed Transfer Ability Standby Assistance Specific Evaluation Sit to Stand Bed Transfer Ability Independent Pivot Bed Transfer Ability Independent Stand to Sit Bed Transfer Ability Independent Comments Factors Limiting Bed Transfer Decreased Strength Decreased Endurance Limited Range of Motion Pain Poor Safety Awareness Bed Transfer Comments Pt sitting up on gurney at beginning of session, declines to have the head of the gurney flat due to breathing difficulty. Pt doesn't sleep flat at home, so this wasn't performed during the session. Gait Assessment Gait Gait Assistance Required: Standby Assistance Distance (Feet) (feet) 5 Assistive Devices Assistive Device Gait Belt Front Wheeled Walker 4 Wheeled Walker Gait Deviations General Gait Pattern Decreased Stride Length Decreased Feet Clearance Flexed Trunk Wide Based Gait Factors Limiting Gait Function Factors Limiting Gait Function Decreased Activity Tolerance Decreased Sensation Decreased Strength Limited Range of Motion Poor Safety Awareness Respiratory Distress Comments Gait Comments Pt walks bent forward with forearms on the walker. This is how the patient walks at baseline, pt has no interest in changing the way she walks. It is not ideal, but it is working for the patient at this time. PT-Balance Assessment Sitting Balance and Reactions Static Sitting Balance Ability Normal Dynamic Sitting Balance Ability Good Standing Balance and Reactions Static Standing Balance Ability Poor Dynamic Standing Balance Ability Poor Device Used FWW Orientation Orientation/Cognition Level of Alertness Alert Orientation Name Age Birthday Month Date Year Day of Week Place Situation Language Function Ability No Deficits Noted Safety Awareness Decreased Safety Awareness Memory Description No Deficits Noted Physical Therapy Treatment Education Education Provided Safety PT Summary Assessment and Plan Potential Rehabilitation Potential Fair Status of Condition at Evaluation Stable Summary Impairments Pain ROM Strength Bed Mobility Transfers Gait Activity Tolerance Progress Towards Goals Safe For Discharge Assessment Summary Pt is currently at her baseline level of function and does not have an acute functional decline. Pt's functional baseline is less than ideal, but pt hasn't had any mechanical falls and seems to operate within her limits. In the acute setting pt needed assist to stand up from a low armless chair, but pt reports only having chairs with arms at home. When pt has armrests to push up with she doesn't need any physical assist to stand up. Pt has no acute PT needs but recommend at least 1 home health PT visit for at least a home safety assessment as pt couldn 't get off the toilet. Pt intends to purchase a toilet riser. Acute PT will sign off. Frequency of Treatment Frequency Of Treatment Discharge Recommendations To Nursing Amount of Assist Needed 1 Person Assist Discharge Recommendations PT Discharge Recommendations Home with Assistance Home Health
== END 2018-06-04 16:35 | disposition home or self-care (01) ==
PROVIDERS: Emergency Provider Internal Medicine
DX: M19.90 Unspecified osteoarthritis, unspecified site (principal); I50.9 Heart failure, unspecified; R79.1 Abnormal coagulation profile
CPT/HCPCS: 36591; 71045; 80053; 80162; 81001; 81003; 83605; 83735; 83880; 85025; 85610; 93971; 96374; 97116; 97161; 97530; 99283; 99284; J1940

== ENCOUNTER 2018-06-12 11:03 | Inpatient (IN) | payer MEDICARE, MEDICAID, SELFPAY ==
[2018-04-12 21:07] VITALS: BMI 48.4
[2018-06-12] VITALS (21 sets, daily range): BP systolic 88–120; BP diastolic 40–91; PULSE 67–81; RESP 13–26; TEMP 0–36.7; O2SAT 74–98; BMI 55.5
--- NOTE | 2018-06-12 | DI.ECHO.S_ITS ---
[facility]---------+ [facility] +---------+ : : [address] : : : : [id number] : : : : Phone: [phone] Echocardiogram Report + + :Name: BAUDILIO GRANT Study Date: 06/12/2018 Height: 66 in : :[facility] Exam Location: [facility] Weight: 300 lb : : Gender: Female BSA: 2.4 m2 : :: 1950 Age: 67 yrs BP: 100/50 mmHg: :Reason For Study: CHF : :Ordering Physician: Dr. Ren : :Michael Performed By: Laura Yepez : :Referring: JARROD BELLA : + + Interpretation Summary A two-dimensional transthoracic echocardiogram was performed in limited views only to assess left ventricular function. The study quality was technically difficult and somewhat limited due to patient body habitus, supine position and inability to cooperate. The left ventricle is not well visualized but grossly appears normal in size and left ventricular systolic function is probably normal with the ejection fraction grossly estimated to be 60-65%. There are no obvious focal wall motion abnormalities noted but poor endocardial definition reduces the sensitivity for the detection of such. Systolic function is likely slightly improved compared to the previous study. Procedure: A two-dimensional transthoracic echocardiogram was performed in limited views only to assess left ventricular function. The study quality was technically difficult and somewhat limited due to patient body habitus, supine position and inability to cooperate. Comparison is made with the echocardiogram of 04/13/2018. A contrast injection of Definity was performed to improve assessment of LV function. The heart rate ranged between 65-72 bpm during the study. Left Ventricle: The left ventricle is not well visualized. The left ventricle is grossly normal size. Left ventricular systolic function is probably normal. The ejection fraction is estimated to be 60-65%. There are no obvious focal wall motion abnormalities noted but poor endocardial definition reduces the sensitivity for the detection of such. This is slightly improved compared to the previous study. Pericardium/ Pleura No effusions noted however poor image quality reduces the detection of such. Reading Physician:AMOS
--- NOTE | 2018-06-12 11:27 | PC.NURSE ---
on arrival pt 74% on ra. pt reports she uses oxygen at home 100% time. placed oxgen on patient pt sats improved to 91%.
--- NOTE | 2018-06-12 11:28 | DI.RAD.S_ITS ---
PROCEDURE: XR CHEST 1V INDICATIONS: sob edema seen on 06/04 TECHNIQUE: One view of the chest was acquired. COMPARISON: [facility], CR, XR CHEST 1V, 06/04/2018, 12:34. [facility], CR, XR CHEST 1V, 04/12/2018, 15:49. FINDINGS: Surgical changes and devices: None. Lungs and pleura: No pleural effusions or pneumothorax. Bilateral interstitial pulmonary opacities greatest in the perihilar lung increased since the previous study. No lobar consolidation. Mediastinum: Prominent cardiomediastinal silhouette. Bones and chest wall: No suspicious bony lesions. Overlying soft tissues appear unremarkable. IMPRESSION: Increasing interstitial pulmonary opacities are most consistent with edema. Infection is also possible. Dictated by: Chaparro Edouard M.D. on 06/12/2018 at 11:54 Approved by: Chaparro Edouard M.D. on 06/12/2018 at 11:57
[2018-06-12 12:15] LABS: Add Manual Diff / Slide Review NO; Basophils Percent Auto 0.3 % (0-2); Eosinophils Percent Auto 1.4 % (2-4); Hematocrit 35.1 % (36-46); Hemoglobin 10.7 g/dL (12.0-16.0); Lymphocytes Percent Auto 8.7 % (25-40); Mean Corpuscular HGB Conc 30.4 % (30-36); Mean Corpuscular Hemoglobin 23.5 PG (26-34); Mean Corpuscular Volume 77.4 fL (80-100); Monocytes Percent Auto 5.7 % (3-14); Neutrophils Absolute Auto 11300 /uL (3000-5900); Neutrophils Percent Auto 83.9 % (50-75); Platelet Count 366 X10^3/uL (150-400); Red Blood Cell Count 4.54 X10^6/uL (4.0-5.2); Red Cell Distribution Width 22.4 % (11.6-14.8); White Blood Cell Count 13.5 X10^3/uL (4.5-11.0)
[2018-06-12 12:26] LABS: INR 2.1 (0.9-1.3); Prothrombin Time 22.2 SECONDS (10.1-12.7)
[2018-06-12 12:30] LABS: BUN Creatinine Ratio 24.3 (6-22); Blood Urea Nitrogen 17 mg/dL (7-17); Calcium 8.2 mg/dL (8.4-10.2); Chloride 89 mmol/L (98-107); Estimated Glomerular Filt Rate > 60.0 mL/min (>60); Glucose 137 mg/dL (80-110); HEMOLYSIS < 15 (0-50); Potassium 3.4 mmol/L (3.4-5.1); Sodium 138 mmol/L (137-145)
[2018-06-12 12:39] LABS: Anisocytosis 2+; Carbon Dioxide 40 mmol/L (22-32); Hypochromasia 2+; Poikilocytosis 1+; Polychromasia 1+
--- NOTE | 2018-06-12 13:39 | PT.IIE ---
Surgical History (Last Updated 06/04/18 @ 12:35 by Jody Simmons PA-C) History of abdominoplasty (Resolved) History of gastric bypass (Resolved) Medical History (Last Updated 06/04/18 @ 12:35 by Jody Simmons PA-C) Atrial fibrillation (Chronic) Depression (Chronic) Diabetes (Chronic) Hyperlipidemia (Chronic) Hypertension (Chronic) Lumbar degenerative disc disease (Chronic) Obesity (Chronic) Osteoarthritis (Chronic) Pneumococcal meningitis (Chronic) Prolapsed bladder (Chronic) Cholelithiasis (Resolved) Fracture of left ankle (Resolved) Inguinal hernia (Resolved) Physical Therapy Inpatient Evaluation/Re-Eval M1 PT/OT-IP Prior Functional Status Start: 06/12/18 13:23 Freq: Status: Active Protocol: Document 06/12/18 13:24 AMB (Rec: 06/12/18 13:39 AMB [email or web address]) Medical Review Prior Functional Status Medical History Reviewed Yes Social History Household Members none Living Arrangements Apartment/Condo Additional Social History Comment Patient unable to give significant history at this time, does report that she has a walker, but not able to say what type or give other history at this time. M2 PT-IP Current Condition Start: 06/12/18 13:23 Freq: Status: Active Protocol: Document 06/12/18 13:24 AMB (Rec: 06/12/18 13:39 AMB [email or web address]) Physical Therapy Current Condition Current Condition Evaluation Date 06/12/18 Treatment Diagnosis weakness M3 PT-IP Subjective Start: 06/12/18 13:23 Freq: Status: Active Protocol: Document 06/12/18 13:24 AMB (Rec: 06/12/18 13:39 AMB [email or web address]) Subjective Physical Therapy Visit Type Type Initial Evaluation Visit Start Time 13:10 Visit Stop Time 13:20 Total Visit Minutes 10 Notes in ED Number of APPRENTICE STYLIST Visits 0 Physical Therapy Visit Comments Patient Comments The patient was lying on a gurney with 2L O2 via nasal cannula. SpO2 89% at rest decreasing to 84% with brief two word answers. Therapy Pain Assessment Pain Present Pain Present Denied Pain M4 PT-IP Mobility and Gait Start: 06/12/18 13:23 Freq: Status: Active Protocol: Document 06/12/18 13:24 AMB (Rec: 06/12/18 13:39 AMB [email or web address]) Bed Transfer Assessment General Evaluation Overall Bed Transfer Ability Total Assistance Comments Factors Limiting Bed Transfer Cannot Follow Directions Bed Transfer Comments The patient was unable to follow commands or answer many questions due to falling asleep immediately upon being woken multiple times. M5 PT-IP Objective Assessments Start: 06/12/18 13:23 Freq: Status: Active Protocol: Document 06/12/18 13:24 AMB (Rec: 06/12/18 13:39 AMB [email or web address]) Orientation Orientation/Cognition Level of Alertness Lethargic Comments Patient unable to answer questions with more than one-two word answers, continued to fall asleep despite multiple attempts verbally and physically to wake her. M7 PT-IP Assessment and Plan Start: 06/12/18 13:23 Freq: Status: Active Protocol: Document 06/12/18 13:24 AMB (Rec: 06/12/18 13:39 AMB [email or web address]) PT Summary Assessment and Plan Potential Rehabilitation Potential Fair Status of Condition at Evaluation Unstable Summary Impairments Strength Balance Coordination Cognition Bed Mobility Transfers Gait Activity Tolerance Assessment Summary The patient lives alone in an apartment. Per nursing she was unable to get out of her car because her legs gave out, so EMS was called. Since then she has been falling asleep. A full evaluation of the patient's mobility was unsafe due to the patient being unable to follow directions or stay awake for more than a few seconds at time of evaluation. She is very unsafe to discharge home at this time and will need to be admitted to the hospital and then likely receive rehab at a SNF given her medical history unless her mobility significantly improves during her hospital course. Goals Bed Mobility Goal Minimal Assistance Transfer Goal Minimal Assistance Gait Goal Minimal Assistance Front Wheel Walker Gait Distance 50 feet Days to Meet Goals 4 Frequency of Treatment Frequency Of Treatment Twice a Day Treatment Plan Physical Therapy Treatment Plan Bed Mobility Training Transfer Training Gait Training Therapeutic Exercise Balance Retraining Discharge Planning Neuromuscular Re-ed Recommendations To Nursing Amount of Assist Needed PT/OT Assist Only Total Assistance Mechanical Lift Discharge Recommendations PT Discharge Recommendations SNF Rehab Equipment Needed for Home Before Follow up needed Discharge
[2018-06-12 13:59] LABS: HCO3 ABG 42 mmol/L (23-27); PCO2 ABG 84.4 mmHg (35-45); PO2 ABG 57 mmHg (80-105); pH ABG 7.31 (7.35-7.45)
[2018-06-12 14:00] LABS: Fractionated Inspired Oxygen 28; Oxygen Saturation ABG 84 % (95-100); TCO2 ABG 45 mmol/L (23-27)
--- NOTE | 2018-06-12 14:00 | ED.WEAKNESS ---
HPI - Weakness General Chief complaint: Weakness Stated complaint: weakness Time Seen by Provider: 06/12/18 11:06 Source: EMS Mode of arrival: EMS Limitations: no limitations History of Present Illness HPI Narrative: Patient is a 67-year-old female presenting with increased weakness and confusion. She is here for the 2nd time this month. Today she says her legs gave out on her despite her walker and she could not get up. EMS is that she was confused and clearly unable to stand on her own so she was brought to the ED for further evaluation. She has no complaints. Initially found to have low oxygen sats but awake and alert and talking. She says that she is on home oxygen and previous reports confirm this. She was here 06/04/2018 diagnosed with osteoarthritis without to have some component of CHF and pulmonary edema. She denies any worsening shortness of breath. She was prescribed Lasix and potassium but unknown if she is taking them. She has no chest pain no cough or shortness of breath or really any complaints now except that she is weak cannot walk. Related Data Home Medications Medication Instructions Recorded Confirmed gabapentin [Neurontin] 600 mg PO Q6H #0 02/01/11 06/12/18 fluticasone [Flonase Allergy 2 spray INTRANASAL QDAY #0 09/28/17 06/12/18 Relief] hydrochlorothiazide 1 - 2 cap PO QDAYP PRN #0 09/28/17 06/12/18 albuterol sulfate 2 puff INHALATION Q4-6H PRN 04/12/18 06/12/18 aspirin 81 mg PO DAILY 04/12/18 06/12/18 hydrocodone-acetaminophen 1 tab PO Q6H PRN 04/12/18 06/12/18 metformin [Glucophage] 500 mg PO BIDWM 04/12/18 06/12/18 oxybutynin chloride 10 mg PO DAILY 04/12/18 06/12/18 ursodiol 300 mg PO BID 04/12/18 06/12/18 losartan 50 mg PO DAILY 06/04/18 06/12/18 digoxin [Digitek] 0.125 mg PO DAILY 06/12/18 06/12/18 diltiazem HCl [Cartia XT] 240 mg PO DAILY 06/12/18 06/12/18 Previous Rx's Medication Instructions Recorded atorvastatin [Lipitor] 10 mg PO BEDTIME #30 tab 04/15/18 metoprolol succinate 100 mg PO DAILY #30 tab 04/15/18 furosemide [Lasix] 20 mg PO QAM #5 tab 06/04/18 Allergies Allergy/AdvReac Type Severity Reaction Status Date / Time captopril [CAPTOPRIL] Allergy Unknown Verified 06/04/18 13:44 nabumetone [NABUMETONE] Allergy Unknown Rash Verified 06/04/18 13:44 Review of Systems Review of Systems All systems reviewed & are unremarkable except as noted in HPI and below Constitutional Reports daytime sleepiness, Reports fatigue and Reports frequent falls Cardiovascular Denies chest pain, Denies irregular heart rhythm, Denies lightheadedness, Denies palpitations and Denies orthopnea Respiratory Comments: is supposed to wear O2 but doesn't per daughter Gastrointestinal Gastrointestinal: Denies abdominal pain, Denies nausea and Denies vomiting Neurologic Reports frequent falls Endocrine Reports fatigue and Denies palpitations PFSH Medical History Atrial fibrillation (Chronic) Depression (Chronic) Diabetes (Chronic) Hyperlipidemia (Chronic) Hypertension (Chronic) Lumbar degenerative disc disease (Chronic) Obesity (Chronic) Osteoarthritis (Chronic) Pneumococcal meningitis (Chronic) Prolapsed bladder (Chronic) Cholelithiasis (Resolved) Fracture of left ankle (Resolved) Inguinal hernia (Resolved) Surgical History History of abdominoplasty (Resolved) History of gastric bypass (Resolved) Social History household members: none Smoking Status: Current every day smoker alcohol intake: former additional social history: lives alone Exam Initial Vital Signs Initial Vital Signs: Vital Signs Temperature 97.8 F 06/12/18 11:13 Pulse Rate 78 06/12/18 11:13 Respiratory Rate 24 06/12/18 11:13 Blood Pressure 111/68 06/12/18 11:13 Pulse Oximetry 74 L 06/12/18 11:13 Const Nutritional Appearance: obese Orientation: alert, awake and oriented x3 Neck Neck: normal visual inspection, trachea midline, No lymphadenopathy, No midline deformity and No JVD Lymphatic: No lymphedema Chest Chest: normal inspection of the chest Resp Effort & Inspection: normal respiratory effort, able to speak in complete sentences, no respiratory distress and no use of accessory muscles Auscultation: clear to auscultation bilaterally, no rales, no rhonchi and no wheezes Cardio Rate: regular rate Rhythm: regular rhythm Heart Sounds: no click, no gallops, no murmurs and no rubs Pulses: normal peripheral pulses GI Palpation: soft (obese), No firm and No tender Auscultation: normal bowel sounds Skin General: no rashes or lesions noted, No jaundice and No petechiae Neuro General: alert, awake and oriented x3 Course Additional Information: Throughout her stay she has become decrease in responsiveness. Blood work shows increased CO2 on ABG was done, it firmed elevated CO2 and hypoxia. PT was unable to evaluate her because she was not responsive. Orders Ordered: ED Orders 06/12/18 11:28 XR chest 1V Stat 06/12/18 11:29 Consult to Physical Therapy Evaluate & Treat 06/12/18 12:00 B Type Natriuretic Peptide Stat Basic Metabolic Panel Stat Complete Blood Count AUTO DIFF Stat Prothrombin Time INR Stat 06/12/18 13:31 Arterial Blood Gas Stat 06/12/18 14:00 UA Complete [Urinalysis and Microscopic] Stat 06/12/18 15:49 BiPAP Ventilatory Support Asse RT PROTOCOL 06/12/18 15:51 Education, smoking cessation ONGOING 06/12/18 17:03 Consult to Pastoral Services Routine 06/12/18 17:19 ABG [Arterial Blood Gas] Stat 06/13/18 05:00 Complete Blood Count AUTO DIFF Routine Comprehensive Metabolic Panel Routine Acetaminophen (Tylenol) 650 mg PO Q6HR PRN PRN Reason: As Needed for Fever/Mild Pain Albuterol (Ventolin Hfa) 2 puff INH Q4H PRN PRN Reason: Shortness Of Breath Aspirin (Aspirin Ec) 81 mg PO DAILY LORNA Atorvastatin Calcium (Lipitor) 10 mg PO BEDTIME LORNA Dextrose (D50w) 25 gm IV PRN PRN; Protocol PRN Reason: Hypoglycemia Digoxin (Lanoxin) 0.125 mg PO DAILY LORNA Furosemide (Lasix) 20 mg PO DAILY LORNA Hydrochlorothiazide (Hydrochlorothiazide) 12.5 mg PO DAILY PRN PRN Reason: Edema Dextrose/Sodium Chloride (Dextrose 5%-0.45% Ns) 1,000 mls @ 75 mls/hr IV CONT LORNA Last Admin: 06/12/18 16:57 Dose: 75 mls/hr Insulin Aspart (Novolog Flexpen) 0 unit SUBCUT ACHS LORNA; Protocol Magnesium Hydroxide (Milk Of Magnesia) 30 ml PO BID LORNA Discontinued Medications Furosemide (Lasix) 40 mg IV NOW ONE Stop: 06/12/18 12:37 Last Admin: 06/12/18 14:10 Dose: 40 mg Vital Signs - 8 hr 06/12/18 11:54 06/12/18 13:14 06/12/18 13:24 Pulse Rate 69 73 Respiratory Rate 18 Blood Pressure Blood Pressure [Left Arm] 111/91 H 120/49 L Blood Pressure [Right Wrist] Pulse Oximetry 92 91 06/12/18 14:34 06/12/18 15:01 06/12/18 15:37 Pulse Rate 70 73 81 Respiratory Rate 15 22 19 Blood Pressure Blood Pressure [Left Arm] Blood Pressure [Right Wrist] 120/69 120/69 111/54 L Pulse Oximetry 98 94 06/12/18 15:38 06/12/18 18:21 Pulse Rate 73 Respiratory Rate 22 Blood Pressure 104/60 Blood Pressure [Left Arm] Blood Pressure [Right Wrist] 111/54 L Pulse Oximetry 84 L MDM - Weakness Lab Data Result diagrams: 06/12/18 12:00 06/12/18 12:00 Lab Results 06/12/18 06/12/18 06/12/18 Range/Units 12:00 12:00 12:00 WBC 13.5 H (4.5-11.0) X10^3/uL RBC 4.54 (4.0-5.2) X10^6/uL Hgb 10.7 L (12.0-16.0) g/dL Hct 35.1 L (36-46) % MCV 77.4 L (80-100) fL MCH 23.5 L (26-34) PG MCHC 30.4 (30-36) % RDW 22.4 H (11.6-14.8) % Plt Count 366 (150-400) X10^3/uL Neut % (Auto) 83.9 H (50-75) % Lymph % (Auto) 8.7 L (25-40) % [place] % (Auto) 5.7 (3-14) % Eos % (Auto) 1.4 L (2-4) % Baso % (Auto) 0.3 (0-2) % Neut # (Auto) 19882 H (7829-6911) /uL RBC Morphology Not Reportable Polychromasia 1+ H Hypochromasia 2+ H Poikilocytosis 1+ H Anisocytosis 2+ H PT 22.2 H D (10.1-12.7) SECONDS INR 2.1 H (0.9-1.3) ABG pH (7.35-7.45) ABG pCO2 (35-45) mmHg ABG pO2 (80-105) mmHg ABG HCO3 (23-27) mmol/L ABG Total CO2 (23-27) mmol/L ABG O2 Saturation (95-100) % ABG Base Excess (-2-3) mmol/L FiO2 Sodium 138 (137-145) mmol/L Potassium 3.4 (3.4-5.1) mmol/L Chloride 89 L (98-107) mmol/L Carbon Dioxide 40 H* (22-32) mmol/L BUN 17 (7-17) mg/dL Creatinine 0.70 (0.52-1.04) mg/dL Estimated GFR > 60.0 (>60) mL/min BUN/Creatinine Ratio 24.3 H (6-22) Glucose 137 H (80-110) mg/dL Calcium 8.2 L (8.4-10.2) mg/dL B-Natriuretic Peptide 190.0 H (<100) Urine Color Urine Appearance Urine pH (4.5-8.0) Ur Specific [place] (1.000-1.035) Urine Protein (Negative) Urine Glucose (UA) (Normal) g/dL Urine Ketones (NEGATIVE) Urine Occult Blood (Negative) Urine Nitrate (Negative) Urine Bilirubin (NEGATIVE) Urine Urobilinogen (0.2) E.U./dL Ur Leukocyte Esterase (NEGATIVE) Urine RBC (0-5/HPF) Urine WBC (0-5/HPF) Ur Squamous Epith Cells Urine Bacteria (None) Hyaline Casts (None) Urine Mucus (Negative) Ur Culture Indicated? Micro UA Comment 06/12/18 06/12/18 06/12/18 Range/Units 13:31 14:00 17:19 WBC (4.5-11.0) X10^3/uL RBC (4.0-5.2) X10^6/uL Hgb (12.0-16.0) g/dL Hct (36-46) % MCV (80-100) fL MCH (26-34) PG MCHC (30-36) % RDW (11.6-14.8) % Plt Count (150-400) X10^3/uL Neut % (Auto) (50-75) % Lymph % (Auto) (25-40) % [place] % (Auto) (3-14) % Eos % (Auto) (2-4) % Baso % (Auto) (0-2) % Neut # (Auto) (1704-8871) /uL RBC Morphology Polychromasia Hypochromasia Poikilocytosis Anisocytosis PT (10.1-12.7) SECONDS INR (0.9-1.3) ABG pH 7.31 L 7.34 L (7.35-7.45) ABG pCO2 84.4 H* 82.8 H* (35-45) mmHg ABG pO2 57 L 65 L (80-105) mmHg ABG HCO3 42 H 45 H (23-27) mmol/L ABG Total CO2 45 H 47 H (23-27) mmol/L ABG O2 Saturation 84 L* 90 L (95-100) % ABG Base Excess 16.0 H 19.0 H (-2-3) mmol/L FiO2 28 35 Sodium (137-145) mmol/L Potassium (3.4-5.1) mmol/L Chloride (98-107) mmol/L Carbon Dioxide (22-32) mmol/L BUN (7-17) mg/dL Creatinine (0.52-1.04) mg/dL Estimated GFR (>60) mL/min BUN/Creatinine Ratio (6-22) Glucose (80-110) mg/dL Calcium (8.4-10.2) mg/dL B-Natriuretic Peptide (<100) Urine Color Yellow Urine Appearance Clear Urine pH 5.5 (4.5-8.0) Ur Specific [place] 1.025 (1.000-1.035) Urine Protein Negative (Negative) Urine Glucose (UA) Negative (Normal) g/dL Urine Ketones Negative (NEGATIVE) Urine Occult Blood Negative (Negative) Urine Nitrate Negative (Negative) Urine Bilirubin Negative (NEGATIVE) Urine Urobilinogen 1.0 (0.2) E.U./dL Ur Leukocyte Esterase Negative (NEGATIVE) Urine RBC None seen (0-5/HPF) Urine WBC 0-1/hpf (0-5/HPF) Ur Squamous Epith Cells 0-1 /hpf Urine Bacteria None seen (None) Hyaline Casts 1-5/lpf (None) Urine Mucus 1+ H (Negative) Ur Culture Indicated? Cult not indicated Micro UA Comment Not Reportable MDM Narrative Medical decision making narrative: The patient is placed on BiPAP for elevated CO2. She actually starting to wake up a little bit of but remains hypoxic. Dr. Rodriguez has been updated patient's symptoms test results and accepts patient. Discharge Plan Departure Patient Disposition: Admitted As Inpatient Clinical Impression: Acute hypercapnic respiratory failure Discharge Date/Time: 06/12/18 16:34 Interventions: ED Discharge Assessment Last Done: 06/12/18 15:49 Admit Date/Time: 06/12/18 15:27 Admit Provider: Mikal Rodriguez
[2018-06-12] MEDS: FUROSEMIDE 40 MG/4 ML VIAL IV (14:10)
--- NOTE | 2018-06-12 14:40 | PC.NURSE ---
at 1230 pt was requesting lunch, i explained we would need to wait for a bit to check labs, pt drank a up of water. pt family called and spoke with her on the phone. around 1300 pt was sitting with chin to chest, attempted to get pt to readjust but continues to fall asleep with head falling forward. pt results of abg given to dr winter, rt started bipap.
[2018-06-12 15:07] LABS: Appearance Urine UA CLEAR; Bacteria Urine None Seen; Bilirubin Urine UA NEGATIVE (NEGATIVE); Color Urine UA YELLOW; Glucose Urine UA NEGATIVE (Normal); Ketones Urine UA NEGATIVE (NEGATIVE); Leukocyte Esterase Urine UA NEGATIVE (NEGATIVE); Nitrite Urine UA Negative (Negative); Occult Blood Urine UA NEGATIVE (Negative); Protein Urine UA NEGATIVE (Negative); RBC Urine None Seen (0-5/HPF); Specific Gravity Urine UA 1.025 (1.000-1.035); pH Urine UA 5.5 (4.5-8.0)
[2018-06-12 15:17] LABS: Culture Indicated Urine Cult Not Indicated; Hyaline Casts Urine 1-5/LPF; Mucus Urine 1+ (Negative); Squamous Epithelial Cell Urine 0-1 /HPF; WBC Urine 0-1/HPF (0-5/HPF)
--- NOTE | 2018-06-12 15:41 | PC.NURSE ---
increased oxygen to 60 percent. meza draining about 400 cc post lasix
[2018-06-12] MEDS: DEXTROSE 5%-0.45% NS 1,000 ML 75 ML IV (16:57)
--- NOTE | 2018-06-12 17:35 | PC.NURSE ---
1630- Patient admitted to room 101 from Emergency. Patient on Bipap and is not responsive. Patient is making some purposeful movement to attempt to remove her Bipap mask. Patient moved to the bed via transfer slide sheet. Respiratory with patient and Bipap secured. Patient has a meza catheter with clear yellow urine. Lung sounds are coarse, respiratory rate is mid 20's. Patient C02 levels are very high. Will monitor.
[2018-06-12 18:10] LABS: pH ABG 7.34 (7.35-7.45)
[2018-06-12 18:11] LABS: PCO2 ABG 82.8 mmHg (35-45); PO2 ABG 65 mmHg (80-105)
[2018-06-12 18:12] LABS: Fractionated Inspired Oxygen 35; HCO3 ABG 45 mmol/L (23-27); Oxygen Saturation ABG 90 % (95-100); TCO2 ABG 47 mmol/L (23-27)
[2018-06-12 20:14] LABS: TSH w/ Reflex to FT4 0.76 uIU/mL (0.47-4.68)
--- NOTE | 2018-06-12 20:41 | PC.NURSE ---
1999- Patient is more responsive. Remains on Bipap. Dentures removed. family went home for the night.
--- NOTE | 2018-06-12 21:20 | PM.HP.1 ---
History of Present Illness Date Patient Seen: 06/12/18 Time Patient Seen: 21:27 Chief complaint: weakness Narrative: 67-year-old female with morbid obesity and history of chronic respiratory failure hypercapnic hypoxic presents with increasing weakness and falls. She had a couple falls today with her legs seem to give out on her she has been having some increasing difficulty breathing. She has been very noncompliant with her oxygen at home. Came into the emergency room via EMS after 1 of these falls. Initially in the emergency room she was awake and alert and ordered over the course the time she was in the emergency room she became a tended and started on BiPAP for worsening hypercapnia Patient History Medical History Chronic anticoagulation (Acute) Chronic respiratory failure with hypoxia and hypercapnia (Acute) Iron deficiency anemia (Acute) Morbid obesity (Acute) Obesity hypoventilation syndrome (Acute) Atrial fibrillation (Chronic) Depression (Chronic) Diabetes (Chronic) Hyperlipidemia (Chronic) Hypertension (Chronic) Lumbar degenerative disc disease (Chronic) Obesity (Chronic) Osteoarthritis (Chronic) Pneumococcal meningitis (Chronic) Prolapsed bladder (Chronic) Cholelithiasis (Resolved) Fracture of left ankle (Resolved) Inguinal hernia (Resolved) Surgical History History of abdominoplasty (Resolved) History of gastric bypass (Resolved) Family & Social History Social History: household members none Prior Living Arrangements Apartment/Condo Safety & Behavioral: Feels Safe in Current Yes Environment Been Physically Hurt or No Threatened By a Person Suicidal Ideation Description None Suicide Plan Description No Plan Tobacco & Substance use: Tobacco type cigarettes Smoking Status Current every day smoker alcohol intake former alcohol intake frequency 0-2 drinks per day Substance Use Type does not use Meds Home Medications Medication Instructions Recorded Confirmed Type gabapentin [Neurontin] 600 mg PO Q6H #0 02/01/11 06/12/18 History fluticasone [Flonase Allergy 2 spray INTRANASAL QDAY #0 09/28/17 06/12/18 History Relief] hydrochlorothiazide 1 - 2 cap PO QDAYP PRN #0 09/28/17 06/12/18 History albuterol sulfate 2 puff INHALATION Q4-6H PRN 04/12/18 06/12/18 History aspirin 81 mg PO DAILY 04/12/18 06/12/18 History hydrocodone-acetaminophen 1 tab PO Q6H PRN 04/12/18 06/12/18 History metformin [Glucophage] 500 mg PO BIDWM 04/12/18 06/12/18 History oxybutynin chloride 10 mg PO DAILY 04/12/18 06/12/18 History ursodiol 300 mg PO BID 04/12/18 06/12/18 History atorvastatin [Lipitor] 10 mg PO BEDTIME #30 tab 04/15/18 06/12/18 Rx metoprolol succinate 100 mg PO DAILY #30 tab 04/15/18 06/12/18 Rx furosemide [Lasix] 20 mg PO QAM #5 tab 06/04/18 06/12/18 Rx losartan 50 mg PO DAILY 06/04/18 06/12/18 History digoxin [Digitek] 0.125 mg PO DAILY 06/12/18 06/12/18 History diltiazem HCl [Cartia XT] 240 mg PO DAILY 06/12/18 06/12/18 History Allergies Allergy/AdvReac Type Severity Reaction Status Date / Time captopril [CAPTOPRIL] Allergy Unknown Verified 06/04/18 13:44 nabumetone [NABUMETONE] Allergy Unknown Rash Verified 06/04/18 13:44 Review of Systems Review of Systems unobtainable due to mental status Exam Vital Signs (past 8 hours): - 06/12/18 13:24 06/12/18 14:34 06/12/18 15:01 Pulse Rate 70 73 Respiratory Rate 15 22 Blood Pressure Blood Pressure [Left Arm] 120/49 L Blood Pressure [Right Wrist] 120/69 120/69 Pulse Oximetry 98 06/12/18 15:37 06/12/18 15:38 06/12/18 18:21 Pulse Rate 81 73 Respiratory Rate 19 22 Blood Pressure 104/60 Blood Pressure [Left Arm] Blood Pressure [Right Wrist] 111/54 L 111/54 L Pulse Oximetry 94 84 L Fraction of Inspired Oxygen 27 Oxygen Delivery Method BiPAP Oxygen Flow Rate 40 Narrative Exam Narrative: Morbidly obese currently unresponsive on BiPAP mask she is breathing at about 26 on the mask. Tongue seems to be tolerating the pressures well. Lungs scattered rhonchi Heart regular rhythm Abdomen morbidly obese nontender Extremities 1+ edema stasis dermatitis noted Neuro exam patient obtunded does not open eyes to commands or stimuli she does move spontaneously Objective Labs Result Diagrams: 06/12/18 12:00 06/12/18 12:00 Labs: Laboratory Results - last 24 hr 06/12/18 06/12/18 06/12/18 12:00 12:00 12:00 WBC 13.5 H RBC 4.54 Hgb 10.7 L Hct 35.1 L MCV 77.4 L MCH 23.5 L MCHC 30.4 RDW 22.4 H Plt Count 366 Neut % (Auto) 83.9 H Lymph % (Auto) 8.7 L [place] % (Auto) 5.7 Eos % (Auto) 1.4 L Baso % (Auto) 0.3 Neut # (Auto) 55121 H RBC Morphology Not Reportable Polychromasia 1+ H Hypochromasia 2+ H Poikilocytosis 1+ H Anisocytosis 2+ H PT 22.2 H D INR 2.1 H ABG pH ABG pCO2 ABG pO2 ABG HCO3 ABG Total CO2 ABG O2 Saturation ABG Base Excess FiO2 Sodium 138 Potassium 3.4 Chloride 89 L Carbon Dioxide 40 H* BUN 17 Creatinine 0.70 Estimated GFR > 60.0 BUN/Creatinine Ratio 24.3 H Glucose 137 H Calcium 8.2 L B-Natriuretic Peptide 190.0 H TSH Urine Color Urine Appearance Urine pH Ur Specific [place] Urine Protein Urine Glucose (UA) Urine Ketones Urine Occult Blood Urine Nitrate Urine Bilirubin Urine Urobilinogen Ur Leukocyte Esterase Urine RBC Urine WBC Ur Squamous Epith Cells Urine Bacteria Hyaline Casts Urine Mucus Ur Culture Indicated? Micro UA Comment 06/12/18 06/12/18 06/12/18 13:31 14:00 17:19 WBC RBC Hgb Hct MCV MCH MCHC RDW Plt Count Neut % (Auto) Lymph % (Auto) [place] % (Auto) Eos % (Auto) Baso % (Auto) Neut # (Auto) RBC Morphology Polychromasia Hypochromasia Poikilocytosis Anisocytosis PT INR ABG pH 7.31 L 7.34 L ABG pCO2 84.4 H* 82.8 H* ABG pO2 57 L 65 L ABG HCO3 42 H 45 H ABG Total CO2 45 H 47 H ABG O2 Saturation 84 L* 90 L ABG Base Excess 16.0 H 19.0 H FiO2 28 35 Sodium Potassium Chloride Carbon Dioxide BUN Creatinine Estimated GFR BUN/Creatinine Ratio Glucose Calcium B-Natriuretic Peptide TSH Urine Color Yellow Urine Appearance Clear Urine pH 5.5 Ur Specific [place] 1.025 Urine Protein Negative Urine Glucose (UA) Negative Urine Ketones Negative Urine Occult Blood Negative Urine Nitrate Negative Urine Bilirubin Negative Urine Urobilinogen 1.0 Ur Leukocyte Esterase Negative Urine RBC None seen Urine WBC 0-1/hpf Ur Squamous Epith Cells 0-1 /hpf Urine Bacteria None seen Hyaline Casts 1-5/lpf Urine Mucus 1+ H Ur Culture Indicated? Cult not indicated Micro UA Comment Not Reportable 06/12/18 19:04 WBC RBC Hgb Hct MCV MCH MCHC RDW Plt Count Neut % (Auto) Lymph % (Auto) [place] % (Auto) Eos % (Auto) Baso % (Auto) Neut # (Auto) RBC Morphology Polychromasia Hypochromasia Poikilocytosis Anisocytosis PT INR ABG pH ABG pCO2 ABG pO2 ABG HCO3 ABG Total CO2 ABG O2 Saturation ABG Base Excess FiO2 Sodium Potassium Chloride Carbon Dioxide BUN Creatinine Estimated GFR BUN/Creatinine Ratio Glucose Calcium B-Natriuretic Peptide TSH 0.76 Urine Color Urine Appearance Urine pH Ur Specific [place] Urine Protein Urine Glucose (UA) Urine Ketones Urine Occult Blood Urine Nitrate Urine Bilirubin Urine Urobilinogen Ur Leukocyte Esterase Urine RBC Urine WBC Ur Squamous Epith Cells Urine Bacteria Hyaline Casts Urine Mucus Ur Culture Indicated? Micro UA Comment Assessment & Plan Plan: Assessment/Plan Narrative: One. Acute hypercapnic and hypoxic respiratory failure. Possibly secondary to underlying pneumonia. She has been on BiPAP since the ER. Blood gas is showing some mild improvement we will minimize oxygen intake. Her echo showed good LV function and her BNP was just mildly elevated at 190 so I doubt any heart failure symptoms Two 2. Acute bacterial pneumonia x-ray showing infiltrate and she does have elevated white count plan to check blood cultures and plan to continue antibiotics ceftriaxone and Zithromax 3. History of anemia this is been iron deficient probably needs workup as an outpatient she has been on Coumadin for chronic AFib continue metoprolol and digoxin 4. Chronic AFib with chronic anticoagulation she actually seems to be in sinus rhythm today. Her INR is therapeutic plan to continue Coumadin at current dosing 5. Morbid obesity with hypoventilation syndrome TSH was normal.6. Disposition patient to ICU status initially on BiPAP and respiratory failure6. Diabetes type 2 hold metformin for now give her as needed doses of insulin Scores [facility] [place] coma scale eye opening: None [place] coma scale verbal response: Sounds [place] coma scale motor response: Localising [place] coma scale total score: 8 Quality VTE Deep Vein Thrombosis/Pulmonary Embolism Present on Admission: No
[2018-06-12] MEDS: ATORVASTATIN 10 MG TABLET PO (21:43)
[2018-06-12] MEDS: CEFTRIAXONE 2 GM/50 ML FROZ.PIGGY IV (21:58)
[2018-06-12] MEDS: AZITHROMYCIN 500 MG in DEXTROSE 5% IN WATER 250 ML IV (22:55)
[2018-06-12] MEDS: ACETAMINOPHEN 325 MG TABLET 650 MG PO (23:59)
[2018-06-13] VITALS (7 sets, daily range): BP systolic 115–121; BP diastolic 58–66; PULSE 62–88; RESP 14–24; TEMP 36–36.2; O2SAT 93–96
[2018-06-13 00:23] LABS: Urine Amphetamines Negative (Negative); Urine Barbiturates Negative (Negative); Urine Benzodiazepines Negative (Negative); Urine Cocaine Negative (Negative); Urine MDMA Negative (Negative); Urine Methadone Positive (Negative); Urine Methamphetamines Negative (Negative); Urine Morphine/Opi cutoff 2000 Negative (Negative); Urine Oxycodone Negative (Negative); Urine Phencyclidine Negative (Negative); Urine Tetrahydrocannabinol Negative (Negative); Urine Tricyclic Antidepressant Negative (Negative)
--- NOTE | 2018-06-13 03:19 | PC.NURSE ---
Pt. desats to 76-77 on 3L high flow 02, increased 02 to 4L without any change in saturation, increased to 5 L without any change. RT called to place pt. back on Bipap.
--- NOTE | 2018-06-13 03:28 | PC.NURSE ---
Pt. so far refused to be back on Bipap. Pt. currently awake and on 5L high flow 02 with saturation of 94%.
[2018-06-13 05:23] LABS: Add Manual Diff / Slide Review NO; Basophils Percent Auto 0.8 % (0-2); Hematocrit 33.4 % (36-46); Hemoglobin 10.2 g/dL (12.0-16.0); Lymphocytes Percent Auto 13.4 % (25-40); Mean Corpuscular HGB Conc 30.5 % (30-36); Mean Corpuscular Hemoglobin 23.5 PG (26-34); Mean Corpuscular Volume 77.1 fL (80-100); Monocytes Percent Auto 6.7 % (3-14); Neutrophils Absolute Auto 8200 /uL (3000-5900); Neutrophils Percent Auto 77.1 % (50-75); Platelet Count 315 X10^3/uL (150-400); Red Blood Cell Count 4.34 X10^6/uL (4.0-5.2); White Blood Cell Count 10.6 X10^3/uL (4.5-11.0)
[2018-06-13 05:36] LABS: Alanine Aminotransferase 22 IU/L (9-52); Albumin 3.4 g/dL (3.5-5.0); Albumin Globulin Ratio 1.1 (1.0-2.8); Alkaline Phosphatase 71 U/L (38-126); Aspartate Aminotransferase 25 IU/L (14-36); Bilirubin Total 0.5 mg/dL (0.2-1.3); Blood Urea Nitrogen 15 mg/dL (7-17); Calcium 8.1 mg/dL (8.4-10.2); Chloride 87 mmol/L (98-107); Estimated Glomerular Filt Rate > 60.0 mL/min (>60); Globulin 3.1 g/dL (1.7-4.1); Glucose 139 mg/dL (80-110); HEMOLYSIS < 15 (0-50); Potassium 3.1 mmol/L (3.4-5.1); Sodium 136 mmol/L (137-145); Total Protein 6.5 g/dL (6.3-8.2)
[2018-06-13] MEDS: ALBUTEROL/IPRATROPIUM 3 ML AMPUL INH ×2 (05:54→13:04)
[2018-06-13] MEDS: POTASSIUM CHLORIDE 20 MEQ TAB 40 MEQ PO (08:45)
[2018-06-13] MEDS: DIGOXIN 0.125 MG TABLET PO (08:46)
[2018-06-13] MEDS: FUROSEMIDE 20 MG TABLET PO (08:46)
[2018-06-13] MEDS: ASPIRIN EC 81 MG TABLET PO (08:46)
--- NOTE | 2018-06-13 09:12 | CM.DANOTE ---
DCP: Case received, EMR reviewed ad met with patient. Introduced self and role. DCP template completed with info currently available Patient is a 67 year old female who admitted yesterday afternoon to the care of the hospitalist team. PCP: Dr. Barboza Payer: confirmed Medicare/Medicaid Patient came in with symptoms of weakness. Patient is on oxygen, and daughter is concerned that patient has not been wearing her oxygen at home like she is supposed to. Patient has a caregiver that comes in for 8 hours through [facility]. P: May need penitentiary, dependent upon length of stay. Home Health would also be an option as well. Daughter is wanting to look at assisted living facilities, should she need this in the future. Will provide information for her. Iman Allen RN/Barber Stylist
--- NOTE | 2018-06-13 09:23 | P.DS_ITS ---
History of Present Illness Chief complaint: weakness Narrative: 67-year-old female with morbid obesity and history of chronic respiratory failure hypercapnic hypoxic presents with increasing weakness and falls. She had a couple falls today with her legs seem to give out on her she has been having some increasing difficulty breathing. She has been very noncompliant with her oxygen at home. Came into the emergency room via EMS after 1 of these falls. Initially in the emergency room she was awake and alert and ordered over the course the time she was in the emergency room she became a tended and started on BiPAP for worsening hypercapnia Discharge Providers Date of admission: 06/12/18 15:27 Primary care physician: Johnny Mariscal Consults: 06/12/18 11:29 Consult to Physical Therapy Evaluate & Treat Comment: fall Physician Instructions: Evaluate and Treat 06/12/18 17:03 Consult to Pastoral Services Routine Comment: recent decline in health x3 months Discharge provider: Carlota Hope MD Discharge Date: 06/13/18 Summary Discharge Diagnosis: 1. Acute on chronic hypercapnic and hypoxic respiratory failure, secondary to obesity hypoventilation syndrome and COPD. Side effect of gabapentin and Vicodin may also contribute to her somnolence. 2. Probable obstructive sleep apnea 3. Chronic anemia, possibly related to. Previous gastric bypass surgery 4. Chronic atrial fibrillation 5. Morbid obesity, BMI 55.8 6. Type 2 diabetes Hospital Course: Patient had PA O2 of 84. She was treated with BiPAP. Her Vicodin and gabapentin were also on hold. She had gradual improvement of her mental status. She is currently back to her baseline. She feels that she is back to baseline on the day of discharge. She was also empirically treated for possible bacterial pneumonia with ceftriaxone and azithromycin. Antibiotics will be discontinued due to lack of clinical evidence of bacterial infection. Patient needs outpatient sleep study sleep study for evaluation of obstructive sleep apnea. She may also benefit from using BiPAP at night when she sleeps. She has chronic atrial fibrillation. Her ventricular rate was reasonably controlled. She is she was continued on Coumadin for anticoagulation. Her INR was therapeutic on June 12, 2018. Status at Discharge Functional status at discharge: independent ambulation Overall status at discharge: patient is back to baseline Time Spent with Patient Greater than 30 minutes Exam Vital Signs (past 8 hours): - 06/13/18 02:00 06/13/18 04:00 06/13/18 05:54 Temperature 96.8 F L Pulse Rate 68 62 Respiratory Rate 15 15 Blood Pressure 121/65 H 116/58 L Pulse Oximetry 93 93 93 06/13/18 07:36 06/13/18 08:46 Temperature 97.2 F L Pulse Rate 66 88 Respiratory Rate 24 Blood Pressure 115/66 Pulse Oximetry 93 Fraction of Inspired Oxygen 32 Oxygen Delivery Method Heated High Flow Oxygen Flow Rate 3 Objective Imaging Chest x-ray: Radiologist's impression: Increasing interstitial pulmonary opacities are most consistent with edema. Infection is also possible. Labs Result Diagrams: 06/13/18 05:09 06/13/18 05:09 Labs: Laboratory Results - last 24 hr 06/12/18 06/12/18 06/12/18 12:00 12:00 12:00 WBC 13.5 H RBC 4.54 Hgb 10.7 L Hct 35.1 L MCV 77.4 L MCH 23.5 L MCHC 30.4 RDW 22.4 H Plt Count 366 Neut % (Auto) 83.9 H Lymph % (Auto) 8.7 L [place] % (Auto) 5.7 Eos % (Auto) 1.4 L Baso % (Auto) 0.3 Neut # (Auto) 42120 H RBC Morphology Not Reportable Polychromasia 1+ H Hypochromasia 2+ H Poikilocytosis 1+ H Anisocytosis 2+ H PT 22.2 H D INR 2.1 H ABG pH ABG pCO2 ABG pO2 ABG HCO3 ABG Total CO2 ABG O2 Saturation ABG Base Excess FiO2 Sodium 138 Potassium 3.4 Chloride 89 L Carbon Dioxide 40 H* BUN 17 Creatinine 0.70 Estimated GFR > 60.0 BUN/Creatinine Ratio 24.3 H Glucose 137 H Calcium 8.2 L Total Bilirubin AST ALT Alkaline Phosphatase B-Natriuretic Peptide 190.0 H Total Protein Albumin Globulin Albumin/Globulin Ratio TSH Urine Color Urine Appearance Urine pH Ur Specific [place] Urine Protein Urine Glucose (UA) Urine Ketones Urine Occult Blood Urine Nitrate Urine Bilirubin Urine Urobilinogen Ur Leukocyte Esterase Urine RBC Urine WBC Ur Squamous Epith Cells Urine Bacteria Hyaline Casts Urine Mucus Ur Culture Indicated? Micro UA Comment Urine Opiates Screen Ur Oxycodone Screen Urine Methadone Screen Ur Barbiturates Screen U Tricyclic Antidepress Ur Phencyclidine Scrn Ur Amphetamines Screen U Methamphetamines Scrn Ur MDMA Scrn (Ecstasy) U Benzodiazepines Scrn Urine Cocaine Screen U Marijuana (THC) Screen 06/12/18 06/12/18 06/12/18 13:31 14:00 14:00 WBC RBC Hgb Hct MCV MCH MCHC RDW Plt Count Neut % (Auto) Lymph % (Auto) [place] % (Auto) Eos % (Auto) Baso % (Auto) Neut # (Auto) RBC Morphology Polychromasia Hypochromasia Poikilocytosis Anisocytosis PT INR ABG pH 7.31 L ABG pCO2 84.4 H* ABG pO2 57 L ABG HCO3 42 H ABG Total CO2 45 H ABG O2 Saturation 84 L* ABG Base Excess 16.0 H FiO2 28 Sodium Potassium Chloride Carbon Dioxide BUN Creatinine Estimated GFR BUN/Creatinine Ratio Glucose Calcium Total Bilirubin AST ALT Alkaline Phosphatase B-Natriuretic Peptide Total Protein Albumin Globulin Albumin/Globulin Ratio TSH Urine Color Yellow Urine Appearance Clear Urine pH 5.5 Ur Specific [place] 1.025 Urine Protein Negative Urine Glucose (UA) Negative Urine Ketones Negative Urine Occult Blood Negative Urine Nitrate Negative Urine Bilirubin Negative Urine Urobilinogen 1.0 Ur Leukocyte Esterase Negative Urine RBC None seen Urine WBC 0-1/hpf Ur Squamous Epith Cells 0-1 /hpf Urine Bacteria None seen Hyaline Casts 1-5/lpf Urine Mucus 1+ H Ur Culture Indicated? Cult not indicated Micro UA Comment Not Reportable Urine Opiates Screen Negative Ur Oxycodone Screen Negative Urine Methadone Screen Positive H Ur Barbiturates Screen Negative U Tricyclic Antidepress Negative Ur Phencyclidine Scrn Negative Ur Amphetamines Screen Negative U Methamphetamines Scrn Negative Ur MDMA Scrn (Ecstasy) Negative U Benzodiazepines Scrn Negative Urine Cocaine Screen Negative U Marijuana (THC) Screen Negative 06/12/18 06/12/18 06/13/18 17:19 19:04 05:09 WBC 10.6 RBC 4.34 Hgb 10.2 L Hct 33.4 L MCV 77.1 L MCH 23.5 L MCHC 30.5 RDW 22.0 H Plt Count 315 Neut % (Auto) 77.1 H Lymph % (Auto) 13.4 L [place] % (Auto) 6.7 Eos % (Auto) 2.0 Baso % (Auto) 0.8 Neut # (Auto) 8200 H RBC Morphology Polychromasia Hypochromasia Poikilocytosis Anisocytosis PT INR ABG pH 7.34 L ABG pCO2 82.8 H* ABG pO2 65 L ABG HCO3 45 H ABG Total CO2 47 H ABG O2 Saturation 90 L ABG Base Excess 19.0 H FiO2 35 Sodium Potassium Chloride Carbon Dioxide BUN Creatinine Estimated GFR BUN/Creatinine Ratio Glucose Calcium Total Bilirubin AST ALT Alkaline Phosphatase B-Natriuretic Peptide Total Protein Albumin Globulin Albumin/Globulin Ratio TSH 0.76 Urine Color Urine Appearance Urine pH Ur Specific [place] Urine Protein Urine Glucose (UA) Urine Ketones Urine Occult Blood Urine Nitrate Urine Bilirubin Urine Urobilinogen Ur Leukocyte Esterase Urine RBC Urine WBC Ur Squamous Epith Cells Urine Bacteria Hyaline Casts Urine Mucus Ur Culture Indicated? Micro UA Comment Urine Opiates Screen Ur Oxycodone Screen Urine Methadone Screen Ur Barbiturates Screen U Tricyclic Antidepress Ur Phencyclidine Scrn Ur Amphetamines Screen U Methamphetamines Scrn Ur MDMA Scrn (Ecstasy) U Benzodiazepines Scrn Urine Cocaine Screen U Marijuana (THC) Screen 06/13/18 05:09 WBC RBC Hgb Hct MCV MCH MCHC RDW Plt Count Neut % (Auto) Lymph % (Auto) [place] % (Auto) Eos % (Auto) Baso % (Auto) Neut # (Auto) RBC Morphology Polychromasia Hypochromasia Poikilocytosis Anisocytosis PT INR ABG pH ABG pCO2 ABG pO2 ABG HCO3 ABG Total CO2 ABG O2 Saturation ABG Base Excess FiO2 Sodium 136 L Potassium 3.1 L Chloride 87 L Carbon Dioxide > 40 H* BUN 15 Creatinine 0.60 Estimated GFR > 60.0 BUN/Creatinine Ratio 25.0 H Glucose 139 H Calcium 8.1 L Total Bilirubin 0.5 AST 25 ALT 22 Alkaline Phosphatase 71 B-Natriuretic Peptide Total Protein 6.5 Albumin 3.4 L Globulin 3.1 Albumin/Globulin Ratio 1.1 TSH Urine Color Urine Appearance Urine pH Ur Specific [place] Urine Protein Urine Glucose (UA) Urine Ketones Urine Occult Blood Urine Nitrate Urine Bilirubin Urine Urobilinogen Ur Leukocyte Esterase Urine RBC Urine WBC Ur Squamous Epith Cells Urine Bacteria Hyaline Casts Urine Mucus Ur Culture Indicated? Micro UA Comment Urine Opiates Screen Ur Oxycodone Screen Urine Methadone Screen Ur Barbiturates Screen U Tricyclic Antidepress Ur Phencyclidine Scrn Ur Amphetamines Screen U Methamphetamines Scrn Ur MDMA Scrn (Ecstasy) U Benzodiazepines Scrn Urine Cocaine Screen U Marijuana (THC) Screen Discharge Plan Discharge Med Rec/Prescriptions Discharge Orders: Discharge (Order); Ordered 06/13/18 Ordered By: Carlota Hope Provider Discharge Instructions Diet: Carb-consistent/Diabetic Activity: as tolerated Discharge Data Attending Provider: Mikal Rodriguez Admit Date/Time: 06/12/18 15:27 Quality VTE Deep Vein Thrombosis/Pulmonary Embolism Present on Admission: No
--- NOTE | 2018-06-13 10:30 | PT.IPRE ---
Surgical History (Last Updated 06/04/18 @ 12:35 by Jody Simmons PA-C) History of abdominoplasty (Resolved) History of gastric bypass (Resolved) Medical History (Last Updated 06/12/18 @ 21:27 by Mikal Rodriguez MD) Chronic anticoagulation (Acute) Chronic respiratory failure with hypoxia and hypercapnia (Acute) Iron deficiency anemia (Acute) Morbid obesity (Acute) Obesity hypoventilation syndrome (Acute) Atrial fibrillation (Chronic) Depression (Chronic) Diabetes (Chronic) Hyperlipidemia (Chronic) Hypertension (Chronic) Lumbar degenerative disc disease (Chronic) Obesity (Chronic) Osteoarthritis (Chronic) Pneumococcal meningitis (Chronic) Prolapsed bladder (Chronic) Cholelithiasis (Resolved) Fracture of left ankle (Resolved) Inguinal hernia (Resolved) Physical Therapy Inpatient Evaluation/Re-Eval M1 PT/OT-IP Prior Functional Status Start: 06/12/18 13:23 Freq: Status: Active Protocol: Document 06/13/18 11:51 AB (Rec: 06/13/18 12:06 AB [id number]) Medical Review Prior Functional Status Medical History Reviewed Yes Communication able to make needs known Mobility and Gait pt stated that she is modified independent with all mobilities and ambulation using 4WW Prior Functional Level (Other details) stated that she has chronic R knee problems and tends to give out on her; stated that she has O2 at home but is not consistent with using it Social History Household Members none Living Arrangements Apartment/Condo Number of Floors (Floors) One Floor Number of Stairs To Enter/Railing? pt lives on a 3rd floor apartment that has an elevator to get to her floor. Home Environment High Toilet Tub/Shower Home Equipment Four Wheel Walker Tub Transfer Fiscal Manager Held Shower Grab Bars Near Toilet Grab Bars In Shower Employment Status Retired Additional Social History Comment pt stated that she has a choire girl that comes in on weekdays ~2 hours/day M2 PT-IP Current Condition Start: 06/12/18 13:23 Freq: Status: Active Protocol: Document 06/13/18 11:51 AB (Rec: 06/13/18 12:06 AB [id number]) Physical Therapy Current Condition Current Condition Evaluation Date 06/12/18 Treatment Diagnosis acute hypercapnia; respiratory failure; generalized weakness Onset Date 06/12/18 M3 PT-IP Subjective Start: 06/12/18 13:23 Freq: Status: Active Protocol: Document 06/13/18 11:51 AB (Rec: 06/13/18 12:06 AB [id number]) Subjective Physical Therapy Visit Type Type Re-Evaluation Visit Start Time 10:30 Visit Stop Time 11:28 Total Visit Minutes 58 Number of COMPANY MINER BLASTING Visits 0 Physical Therapy Visit Comments Patient Comments i am going home today Short Term Goals to go home Therapy Pain Assessment Pain When Pain Assessed During Mobility Pain Present Pain Present Pain Reported Location Back Intensity 5 Scale Used Numeric (1 - 10) Description With Movement M4 PT-IP Mobility and Gait Start: 06/12/18 13:23 Freq: Status: Active Protocol: Document 06/13/18 11:51 AB (Rec: 06/13/18 12:06 AB [id number]) PT-Bed Mobility Assessment Supine to Sit Supine to Sit Standby Assistance Head of Bed Elevated Bedrails Sit to Supine Sit to Supine Standby Assistance PT-Transfer Assessment Sit to and From Stand Sit to and from Stand Standby Assistance Use of Upper Extremities Equipment Transfer Assistive Device Gait Belt 4 Wheeled Walker Transfers Transfer Destination Toilet Transfer Technique pt ambulated to the toilet using 4WW Transfer Ability Level of Assist Standby Assistance Comments Mobility Comments pt leans on 4WW on her forearms during standing/ ambulation Gait Assessment Gait Gait Assistance Required: Contact Guard Assist Distance (Feet) (feet) 12 Able to Maintain Weight Bearing Status Yes During Gait Assistive Devices Assistive Device Gait Belt 4 Wheeled Walker Orthotic/Prosthetic Devices or Brace: No Gait Deviations General Gait Pattern Ataxic Decreased Stride Length Flexed Trunk Factors Limiting Gait Function Factors Limiting Gait Function Decreased Activity Tolerance Decreased Strength Pain Poor Balance Poor Safety Awareness Comments Gait Comments pt ambulated to the toilet using 4WW and ambulated back towards the bed SBA. stated that her R knee feels like it is going to give out towards end of ambulation and refused further ambulation. No incidence of LOB. PT-Balance Assessment Sitting Balance and Reactions Static Sitting Balance Ability Good Dynamic Sitting Balance Ability Good Standing Balance and Reactions Static Standing Balance Ability Fair Dynamic Standing Balance Ability Fair M5 PT-IP Objective Assessments Start: 06/12/18 13:23 Freq: Status: Active Protocol: Document 06/13/18 11:51 AB (Rec: 06/13/18 12:06 AB [id number]) Orientation Orientation/Cognition Level of Alertness Alert Orientation Name Age Birthday Month Date Year Day of Week Place Situation Language Function Ability No Deficits Noted Strength Lower Extremity Strength Assessment Bilaterally Impaired Hip 4-/5 Knee 4-/5 Comments Strength Comments RLE weaker than LLE M6 PT-IP Treatment Start: 06/12/18 13:23 Freq: Status: Active Protocol: Document 06/13/18 11:51 AB (Rec: 06/13/18 12:06 AB [id number]) Physical Therapy Treatment Education Education Provided Safety M7 PT-IP Assessment and Plan Start: 06/12/18 13:23 Freq: Status: Active Protocol: Document 06/13/18 11:51 AB (Rec: 06/13/18 12:06 AB [id number]) PT Summary Assessment and Plan Potential Rehabilitation Potential Fair Status of Condition at Evaluation Stable Summary Impairments Pain Strength Balance Bed Mobility Transfers Gait Activity Tolerance Assessment Summary Pt requiring SBA with mobility but presents with decrease activity tolerance affecting mobility. recommending home health services for pt. Goals Bed Mobility Goal Independent Transfer Goal Independent Front Wheeled Walker Gait Goal Independent Front Wheel Walker Gait Distance 150 Days to Meet Goals 3 Frequency of Treatment Frequency Of Treatment Once a Day Treatment Plan Physical Therapy Treatment Plan Bed Mobility Training Transfer Training Gait Training Therapeutic Exercise Balance Retraining Post Op Education Discharge Planning Hot or Cold Pack Neuromuscular Re-ed Coordination Retraining Manual Therapy Recommendations To Nursing Amount of Assist Needed Standby Assistance Discharge Recommendations PT Discharge Recommendations Home with Assistance Home Health
--- NOTE | 2018-06-13 11:39 | CM.DPC ---
DCP: Patient will be discharged home today. Did speak to daughter with update, per patient's permission. Has a [employer] caregiver that comes in the home for a few hours to help patient with ADLs. Daughter is concerned that patient may be non-compliant at home as far as wearing her oxygen, and is wanting to look into assisted living facilities. P: Daughter will be picking up patient today, may stop and talk to care managment regarding resources. Iman Allen RN/Finisher Polisher
[2018-06-13] MEDS: GABAPENTIN 300 MG CAPSULE PO (14:16)
--- NOTE | 2018-06-13 15:14 | CM.DPC ---
DCP Cont: Called daughter, and gave her [employer] continuous pillowcase cuttertax manager public, for she can come in and evaluate patient for higher level of care. Patient is also to go over for a consultation for a sleep study as well. P: Will give resource information to daughter today. Iman Allen RN/Oil Well Directional Surveyor
--- NOTE | 2018-06-13 16:33 | PC.NURSE ---
1630- Patient instruction given to son and daughter. Patient had instruction from her day nurse. IV removed on day shift. Patient assisted to dress and transferred to a wheelchair. Patient taken out to waiting private vehicle alert oriented and verbalized understanding of plan of care. Patient was stable at the time of discharge.
[2018-06-14 03:29] LABS: Acinetobacter baumannii Not Detected (Not Detect); Candida albicans Not Detected (Not Detect); E. coli Not Detected (Not Detect); Enterobacter cloacae complex Not Detected (Not Detect); Enterobacteriaceae species Not Detected (Not Detect); Enterococcus species Not Detected (Not Detect); Haemophilus influenzae Not Detected (Not Detect); KPC (carbapenem-resist gene) Not Detected (Not Detect); Listeria monocytogenes Not Detected (Not Detect); Methicillin-resistant gene Not Detected (Not Detect); Neisseria meningitidis Not Detected (Not Detect); Proteus species Not Detected (Not Detect); Pseudomonas aeruginosa Not Detected (Not Detect); Serratia marcescens Not Detected (Not Detect); Streptococcus agalactiae (Gr B Not Detected (Not Detect); Streptococcus pneumonia Not Detected (Not Detect); Streptococcus pyogenes (Gr A) Not Detected (Not Detect); Streptococcus species Not Detected (Not Detect)
[2018-06-14 03:30] LABS: Candida glabrata Not Detected (Not Detect); Candida krusei Not Detected (Not Detect); Candida parapsilosis Not Detected (Not Detect); Candida tropicalis Not Detected (Not Detect)
[2018-06-14 03:31] LABS: Staphylococcus species Detected (Not Detect)
[2018-06-14 13:59] LABS: Carbon Dioxide 38 mmol/L (22-32)
== END 2018-06-13 16:30 | disposition home health service (06) | DRG 189 ==
LOC: ED 14:44 → ICU 15:28
PROVIDERS: Admitting Provider Internal Medicine; Emergency Provider Emergency Medicine; Visit Provider Internal Medicine
DX: J96.22 Acute and chronic respiratory failure with hypercapnia (principal); J15.9 Unspecified bacterial pneumonia; Z68.43 Body mass index [BMI] 50.0-59.9, adult; E66.2 Morbid (severe) obesity with alveolar hypoventilation; J96.21 Acute and chronic respiratory failure with hypoxia; D64.9 Anemia, unspecified; I48.2 Chronic atrial fibrillation; Z79.01 Long term (current) use of anticoagulants; R40.2362 Coma scale, best motor response, obeys commands, at arrival to emergency department; R40.2142 Coma scale, eyes open, spontaneous, at arrival to emergency department; R40.2242 Coma scale, best verbal response, confused conversation, at arrival to emergency department; R40.0 Somnolence; Z99.81 Dependence on supplemental oxygen; F32.9 Major depressive disorder, single episode, unspecified; E11.9 Type 2 diabetes mellitus without complications; I10 Essential (primary) hypertension; E78.5 Hyperlipidemia, unspecified; F17.210 Nicotine dependence, cigarettes, uncomplicated; Z79.84 Long term (current) use of oral hypoglycemic drugs; D50.9 Iron deficiency anemia, unspecified; T42.6X5A Adverse effect of other antiepileptic and sedative-hypnotic drugs, initial encounter; T40.2X5A Adverse effect of other opioids, initial encounter; G47.33 Obstructive sleep apnea (adult) (pediatric)
CPT/HCPCS: 36415; 36600; 71045; 80048; 80053; 80305; 81001; 82805; 82962; 83880; 84443; 85025; 85610; 87040; 87150; 87205; 93041; 93307; 94640; 94660; 94762; 96365; 96375; 97163; 97164; 97530; 99285; 99406; J0696; J1940; Q9957

== ENCOUNTER 2018-06-17 16:23 | Emergency (ER) | payer MEDICARE, MEDICAID, SELFPAY ==
[2018-06-12 15:44] VITALS: BMI 55.5
[2018-06-12 20:31] VITALS: PULSE 67; RESP 26; O2SAT 91
[2018-06-17 16:41] VITALS: BP 109/56; PULSE 69; RESP 24; TEMP 36.8; O2SAT 89
--- NOTE | 2018-06-17 16:49 | PC.NURSE ---
PT sent here by medics after unable to care for herself at home per caregiver. Pt covered in urine and stool upon arrival. No new orders at this time.
--- NOTE | 2018-06-17 18:00 | PC.NURSE ---
PT REFUSES TO HAVE [facility], OR TO BE CLEANED UP AFTER INCONTINENCE OF URINE AND STOOL. SURAJ Crooks RN CHARGE AWARE.
--- NOTE | 2018-06-17 18:17 | ED.WEAKNESS ---
HPI - Weakness General Chief complaint: Weakness Stated complaint: Weakness Time Seen by Provider: 06/17/18 18:00 Source: patient, family and EMS Mode of arrival: EMS History of Present Illness HPI Narrative: Patient is a 67-year-old female who presents with inability to get up and overall weakness. She has been into the emergency department a few times and even admitted last week. The son states that she was discharged all on 06/13/2018 she was able to get around the house with her walker he was there. She does have a caregiver some of the time but not 24 hr a day. She was able to get to the restroom and to the kitchen without difficulty. He did not check on her yesterday but he did call. He says that she lied him stating that he she had been up and fix herself something to eat. However when he found her today it was clear that she had not moved and she was found to be incontinent of urine. She has been calling EMS multiple times all daily. she denies falling today and has no complaints. Caregiver at bedside states that she has been compliant with her oxygen all week. She is on home O2, previously was noncompliant with it. She was also previously placed on Lasix for about 6 days which I think has helped. However family still feels that her legs are swollen which may be why she can't ambulate. Related Data Home Medications Medication Instructions Recorded Confirmed gabapentin [Neurontin] 600 mg PO Q6H #0 02/01/11 06/18/18 fluticasone [Flonase Allergy 2 spray INTRANASAL QDAY #0 09/28/17 06/18/18 Relief] hydrochlorothiazide 1 - 2 cap PO QDAYP PRN #0 09/28/17 06/18/18 albuterol sulfate 2 puff INHALATION Q4-6H PRN 04/12/18 06/18/18 aspirin 81 mg PO DAILY 04/12/18 06/18/18 hydrocodone-acetaminophen 1 tab PO Q6H PRN 04/12/18 06/18/18 metformin [Glucophage] 500 mg PO QAM 04/12/18 06/18/18 oxybutynin chloride 10 mg PO DAILY 04/12/18 06/18/18 ursodiol 300 mg PO BID 04/12/18 06/18/18 losartan 50 mg PO DAILY 06/04/18 06/18/18 digoxin [Digitek] 0.125 mg PO DAILY 06/12/18 06/17/18 diltiazem HCl [Cartia XT] 240 mg PO DAILY 06/12/18 06/17/18 simvastatin 20 mg PO QPM 06/17/18 06/18/18 warfarin 5 mg PO DAILY 06/17/18 06/18/18 Previous Rx's Medication Instructions Recorded atorvastatin [Lipitor] 10 mg PO BEDTIME #30 tab 04/15/18 metoprolol succinate 100 mg PO DAILY #30 tab 04/15/18 Allergies Allergy/AdvReac Type Severity Reaction Status Date / Time captopril [CAPTOPRIL] Allergy Unknown Verified 06/18/18 01:10 nabumetone [NABUMETONE] Allergy Unknown Rash Verified 06/18/18 01:10 Review of Systems Review of Systems All systems reviewed & are unremarkable except as noted in HPI and below Constitutional Denies chills, Denies fever(s), Denies lethargy and Denies weakness Cardiovascular Denies chest pain, Denies irregular heart rhythm, Denies lightheadedness, Denies palpitations and Denies orthopnea Respiratory Reports as per HPI Gastrointestinal Gastrointestinal: Denies diarrhea and Denies nausea Genitourinary Reports as per HPI Musculoskeletal Reports muscle weakness Neurologic Denies weakness Endocrine Denies palpitations PFSH Medical History Chronic anticoagulation (Acute) Chronic respiratory failure with hypoxia and hypercapnia (Acute) Iron deficiency anemia (Acute) Morbid obesity (Acute) Obesity hypoventilation syndrome (Acute) Atrial fibrillation (Chronic) Depression (Chronic) Diabetes (Chronic) Hyperlipidemia (Chronic) Hypertension (Chronic) Lumbar degenerative disc disease (Chronic) Obesity (Chronic) Osteoarthritis (Chronic) Pneumococcal meningitis (Chronic) Prolapsed bladder (Chronic) Cholelithiasis (Resolved) Fracture of left ankle (Resolved) Inguinal hernia (Resolved) Surgical History History of abdominoplasty (Resolved) History of gastric bypass (Resolved) Social History household members: none Smoking Status: Current every day smoker alcohol intake: former additional social history: lives alone Exam Initial Vital Signs Initial Vital Signs: Vital Signs Temperature 98.3 F 06/17/18 16:41 Pulse Rate 69 06/17/18 16:41 Respiratory Rate 24 06/17/18 16:41 Blood Pressure 109/56 L 06/17/18 16:41 Pulse Oximetry 89 L 06/17/18 16:41 Const General: cooperative Nutritional Appearance: overweight Orientation: alert, awake and oriented x3 Neck Neck: normal visual inspection, no meningeal signs and No JVD Chest Chest: normal inspection of the chest Resp Effort & Inspection: normal respiratory effort, able to speak in complete sentences and no respiratory distress Auscultation: rales bilaterally at the base Cardio Rhythm: regular rhythm Heart Sounds: S1 normal and S2 normal General: other ( incontinent of urine) Neuro General: alert, awake and oriented x3 Cranial Nerves: CN's II-XI intact bilaterally Cognition: normal cognition Speech: speech normal Sensory Exam: no sensory deficits noted Extrem General: normal to inspection and full ROM Course Orders Ordered: ED Orders 06/17/18 21:19 XR pelvis 1-2V Stat Consultations Time: 21:29 Time: 21:29 Vital Signs - 8 hr 06/17/18 16:41 Temperature 98.3 F Pulse Rate 69 Respiratory Rate 24 Blood Pressure 109/56 L Pulse Oximetry 89 L MDM - Weakness Medical Records Attestation: I reviewed the patient's medical records. Lab Data Attestation: I reviewed the patient's lab results. Result diagrams: 06/17/18 19:23 06/17/18 19:23 Lab Results 06/17/18 06/17/18 06/17/18 Range/Units 19:23 19:23 19:23 WBC 14.2 H (4.5-11.0) X10^3/uL RBC 4.41 (4.0-5.2) X10^6/uL Hgb 10.3 L (12.0-16.0) g/dL Hct 34.0 L (36-46) % MCV 77.1 L (80-100) fL MCH 23.3 L (26-34) PG MCHC 30.3 (30-36) % RDW 21.6 H (11.6-14.8) % Plt Count 323 (150-400) X10^3/uL Neut % (Auto) 81.1 H (50-75) % Lymph % (Auto) 10.2 L (25-40) % [place] % (Auto) 6.3 (3-14) % Eos % (Auto) 1.7 L (2-4) % Baso % (Auto) 0.7 (0-2) % Neut # (Auto) 45278 H (8670-5767) /uL RBC Morphology Not Reportable Anisocytosis 1+ H PT 19.9 H (10.1-12.7) SECONDS INR 1.8 H (0.9-1.3) APTT 35 (26.4-36.2) SECONDS Sodium (137-145) mmol/L Potassium (3.4-5.1) mmol/L Chloride (98-107) mmol/L Carbon Dioxide (22-32) mmol/L BUN (7-17) mg/dL Creatinine (0.52-1.04) mg/dL Estimated GFR (>60) mL/min BUN/Creatinine Ratio (6-22) Glucose (80-110) mg/dL Calcium (8.4-10.2) mg/dL Total Bilirubin (0.2-1.3) mg/dL AST (14-36) IU/L ALT (9-52) IU/L Alkaline Phosphatase (38-126) U/L Total Creatine Kinase (30-135) U/L Troponin I (0.01-0.034) ng/mL B-Natriuretic Peptide 78.8 (<100) Total Protein (6.3-8.2) g/dL Albumin (3.5-5.0) g/dL Globulin (1.7-4.1) g/dL Albumin/Globulin Ratio (1.0-2.8) Lipase (23-300) U/L //18 Range/Units 19:23 WBC (4.5-11.0) X10^3/uL RBC (4.0-5.2) X10^6/uL Hgb (12.0-16.0) g/dL Hct (36-46) % MCV (80-100) fL MCH (26-34) PG MCHC (30-36) % RDW (11.6-14.8) % Plt Count (150-400) X10^3/uL Neut % (Auto) (50-75) % Lymph % (Auto) (25-40) % [place] % (Auto) (3-14) % Eos % (Auto) (2-4) % Baso % (Auto) (0-2) % Neut # (Auto) (4850-6766) /uL RBC Morphology Anisocytosis PT (10.1-12.7) SECONDS INR (0.9-1.3) APTT (26.4-36.2) SECONDS Sodium 136 L (137-145) mmol/L Potassium 3.8 (3.4-5.1) mmol/L Chloride 86 L (98-107) mmol/L Carbon Dioxide 43 H* (22-32) mmol/L BUN 18 H (7-17) mg/dL Creatinine 0.60 (0.52-1.04) mg/dL Estimated GFR > 60.0 (>60) mL/min BUN/Creatinine Ratio 30.0 H (6-22) Glucose 133 H (80-110) mg/dL Calcium 8.4 (8.4-10.2) mg/dL Total Bilirubin 0.6 (0.2-1.3) mg/dL AST 13 L (14-36) IU/L ALT 25 (9-52) IU/L Alkaline Phosphatase 79 (38-126) U/L Total Creatine Kinase 42 (30-135) U/L Troponin I < 0.012 (0.01-0.034) ng/mL B-Natriuretic Peptide (<100) Total Protein 6.7 (6.3-8.2) g/dL Albumin 3.4 L (3.5-5.0) g/dL Globulin 3.3 (1.7-4.1) g/dL Albumin/Globulin Ratio 1.0 (1.0-2.8) Lipase 11 L (23-300) U/L Imaging Data Chest x-ray: Radiologist's impression: PROCEDURE: XR CHEST 1V INDICATIONS: sob TECHNIQUE: One view of the chest was acquired. COMPARISON: [facility], , XR CHEST 1V, 06/12/2018, 11:37. FINDINGS: Surgical changes and devices: None. Lungs and pleura: No pleural effusions or pneumothorax. There is mild pulmonary edema, decreased from the prior study. Mediastinum: Mediastinal contours appear unchanged. Heart size is enlarged. Bones and chest wall: No suspicious bony lesions. Overlying soft tissues appear unremarkable. IMPRESSION: 1. Decreased but persistent mild pulmonary edema. Dictated by: Maxime Jones M.D. on 06/17/2018 at 18:58 pelvis x ray: Attestation: I personally reviewed and interpreted this imaging study as follows: My impression: no fx ECG Data Attestation: I personally reviewed and interpreted this ECG as follows: Prior ECG tracings: available for review Interpretation: Normal sinus rhythm rate [address] changes improved since prior normal MDM Narrative Medical decision making narrative: patient has mild leukocytosis. no fever or symptoms. She is here frequently with increasing weakness. Discussed at length with the son that she likely needs more care at home. family is wanting more Lasix. However her BNP is significantly improved. She is not complaining of any shortness of breath, Lower extremities do not have any pitting edema. She has no focal deficits to suggest stroke. No sign of head trauma. patient is requiring assistance to get to the commode. However she actually does not have enough strength or enough assistance to get to the commode. I have discussed with hospitalist for admission versus discharge home. Since this time no admission criteria. At this time does not meet admission criteria. She has her life support line with her. Apparently they did cut her oxygen tubing with a brought her to the emergency department. She will be going home with new oxygen tubing. Discharge Plan Departure Patient Disposition: Home, Self-Care Clinical Impression: Weakness Discharge Date/Time: 06/17/18 23:50 Interventions: ED Discharge Assessment Last Done: 06/18/18 00:03 Instructions: How to Prevent Falls Activity Restrictions/Additional Instructions: *You have been diagnosed with weakness *What to do: use walker while ambulating, may require more long-term care *Continue to take medications as directed *Follow up with your primary care provider in 2-3 days *Return to ER if you should have any new, worsening or concerning symptoms Prescriptions: No Action gabapentin [Neurontin] 300 MG capsule 600 mg PO Q6H Qty: 0 RF: 0 fluticasone [Flonase Allergy Relief] 9.9 ML spray,suspension 2 spray Intranasal QDAY Qty: 0 RF: 0 hydrochlorothiazide 12.5 MG capsule 1 - 2 cap PO QDAYP PRN (Reason: Edema) Qty: 0 RF: 0 metformin [Glucophage] 500 mg tablet 500 mg PO QAM RF: 0 oxybutynin chloride 10 mg tablet extended release 24hr 10 mg PO DAILY RF: 0 ursodiol 300 mg capsule 300 mg PO BID RF: 0 aspirin 81 mg Tablet,Delayed Release (Dr/Ec) 81 mg PO DAILY RF: 0 hydrocodone-acetaminophen 7.5-325 mg Tablet 1 tab PO Q6H PRN (Reason: Pain, Moderate) RF: 0 albuterol sulfate 90 mcg/actuation Hfa Aerosol Inhaler 2 puff Inhalation Q4-6H PRN (Reason: Shortness Of Breath) RF: 0 atorvastatin [Lipitor] 10 mg Tablet 10 mg PO BEDTIME Qty: 30 RF: 0 metoprolol succinate 50 mg Tablet Extended Release 24 Hr 100 mg PO DAILY Qty: 30 RF: 0 diltiazem HCl [Cartia XT] 240 mg Capsule,Extended Release 24hr 240 mg PO DAILY RF: 0 digoxin [Digitek] 125 mcg Tablet 0.125 mg PO DAILY RF: 0 simvastatin 20 mg tablet 20 mg PO QPM RF: 0 warfarin 5 mg tablet 5 mg PO DAILY RF: 0 losartan 50 mg tablet 50 mg PO DAILY RF: 0
--- NOTE | 2018-06-17 18:29 | DI.RAD.S_ITS ---
PROCEDURE: XR CHEST 1V INDICATIONS: sob TECHNIQUE: One view of the chest was acquired. COMPARISON: , [facility], XR CHEST 1V, 06/12/2018, 11:37. FINDINGS: Surgical changes and devices: None. Lungs and pleura: No pleural effusions or pneumothorax. There is mild pulmonary edema, decreased from the prior study. Mediastinum: Mediastinal contours appear unchanged. Heart size is enlarged. Bones and chest wall: No suspicious bony lesions. Overlying soft tissues appear unremarkable. IMPRESSION: 1. Decreased but persistent mild pulmonary edema. Dictated by: Maxime Jones M.D. on 06/17/2018 at 18:58 Approved by: Maxime Jones M.D. on 06/17/2018 at 19:00
[2018-06-17 19:35] LABS: Add Manual Diff / Slide Review NO; Basophils Percent Auto 0.7 % (0-2); Eosinophils Percent Auto 1.7 % (2-4); Hemoglobin 10.3 g/dL (12.0-16.0); Lymphocytes Percent Auto 10.2 % (25-40); Mean Corpuscular HGB Conc 30.3 % (30-36); Mean Corpuscular Hemoglobin 23.3 PG (26-34); Mean Corpuscular Volume 77.1 fL (80-100); Monocytes Percent Auto 6.3 % (3-14); Neutrophils Absolute Auto 11500 /uL (3000-5900); Neutrophils Percent Auto 81.1 % (50-75); Platelet Count 323 X10^3/uL (150-400); Red Blood Cell Count 4.41 X10^6/uL (4.0-5.2); Red Cell Distribution Width 21.6 % (11.6-14.8); White Blood Cell Count 14.2 X10^3/uL (4.5-11.0)
--- NOTE | 2018-06-17 19:43 | PC.NURSE ---
PT REFUSING IV STATES SHE WILL LET ME PUT AN IV IN WHEN I GET HER A PAIN PILL. CASTING DIRECTOR SURAJ Rucker INFORMED. PROVIDER AWARE. PT HAD LAB DRAW FOR BLOOD WORK. PT TAKING OFF PULSE OX PROB ON FINGER, DEMANDING PAIN PILL.
[2018-06-17 19:45] LABS: HEMOLYSIS < 15 (0-50); INR 1.8 (0.9-1.3); Prothrombin Time 19.9 SECONDS (10.1-12.7)
[2018-06-17 19:48] LABS: PTT Partial Thromboplastin Tim 35 SECONDS (26.4-36.2)
[2018-06-17 19:50] LABS: Alanine Aminotransferase 25 IU/L (9-52); Albumin 3.4 g/dL (3.5-5.0); Alkaline Phosphatase 79 U/L (38-126); Aspartate Aminotransferase 13 IU/L (14-36); Bilirubin Total 0.6 mg/dL (0.2-1.3); Blood Urea Nitrogen 18 mg/dL (7-17); Calcium 8.4 mg/dL (8.4-10.2); Chloride 86 mmol/L (98-107); Creatine Kinase 42 U/L (30-135); Estimated Glomerular Filt Rate > 60.0 mL/min (>60); Globulin 3.3 g/dL (1.7-4.1); Glucose 133 mg/dL (80-110); Lipase 11 U/L (23-300); Potassium 3.8 mmol/L (3.4-5.1); Sodium 136 mmol/L (137-145); Total Protein 6.7 g/dL (6.3-8.2)
[2018-06-17 19:53] LABS: B Type Natriuretic Peptide 78.8 (<100)
[2018-06-17 19:58] LABS: Carbon Dioxide 43 mmol/L (22-32)
--- NOTE | 2018-06-17 20:14 | PC.NURSE ---
PT GIVEN INSTRUCTIONS NOT TO HAVE ANYTHING BY MOUTH UNTIL CLEARED BY PROVIDER TO DO SO. PT EXPLAINED WE ARE WAITING ON LAB RESULTS TO COME BACK. PT REQUESTED SPONGE TO WET MOUTH. PT GIVEN SPONGE AND CUP WITH WATER. PT DRANK WATER FROM CUP. PROVIDER AWARE.
--- NOTE | 2018-06-17 20:22 | PC.NURSE ---
PT REFUSING TO HAVE [facility]/ BE CLEANED UP. CHARGE NURSE SURAJ BASS.
[2018-06-17 20:24] LABS: Anisocytosis 1+
--- NOTE | 2018-06-17 21:01 | PC.NURSE ---
PT GAVE PERMISSION FOR US TO ASSIST HER TO BEDSIDE COMMODE, TO GET CLEANED UP/GIVE UA. DA PENG ASSEMBLY OPERATOR IN ROOM FOR ASSIST. WALKER PROVIDED AT BEDSIDE. PT ABLE TO SIT ON SIDE OF BED WITHOUT ASSISTANCE. WHEN PT WENT TO STAND REFUSED TO USE WALKER, WAS ABLE TO LIFT BACKSIDE OFF OF BED ABOUT 1 1/2 INCH SITTING BACK ON BED. WHEN ASKED TO TRY AND USE WALKER, PT REFUSED AND INSISTED ON USING BEDSIDE COMMODE FOR TRANSFER ASSISTANCE. VERBALIZED TO PT TO USE WALKER INSTEAD OF BEDSIDE COMMODE FOR SAFETY REASONS, PT THEN STATES SHE IS UNABLE TO STAND AT THIS TIME, AND REFUSES FURTHER CARE.
--- NOTE | 2018-06-17 21:19 | DI.RAD.S_ITS ---
PROCEDURE: XR PELVIS 1-2V INDICATIONS: not walking TECHNIQUE: 2 view(s) of the pelvis acquired. COMPARISON: None. FINDINGS: Image quality is severely limited by patient body habitus Bones: No fractures or dislocations. No suspicious bony lesions. Soft tissues: Visualized bowel gas pattern is normal. No suspicious soft tissue calcifications. IMPRESSION: No fracture within superior limitations related to body habitus. If symptoms and/or clinical suspicion for pathology persists, further assessment with repeat radiographs (7-10 days) or advanced imaging (e.g. CT, MRI or bone scan) may be helpful. Dictated by: Melinda Smith MD, PhD on 06/18/2018 at 8:46 Approved by: Melinda Smith MD, PhD on 06/18/2018 at 8:47
[2018-06-17 21:51] LABS: Troponin I < 0.012 ng/mL (0.01-0.034)
--- NOTE | 2018-06-17 23:18 | PC.NURSE ---
unable to clean pt up at this time, due to limited assistance and pt unable to help turn.
--- NOTE | 2018-06-17 23:31 | PC.NURSE ---
Pt agreed to allow us to change her bed. Raffi and Drake did the best we could to wash pt backside and changed the linens under her. pt able to turn side to side with significant assistance.
== END 2018-06-17 23:50 | disposition home or self-care (01) ==
PROVIDERS: Emergency Provider Emergency Medicine
DX: R53.1 Weakness (principal)
CPT/HCPCS: 36415; 71045; 72170; 80053; 82550; 82553; 83690; 83880; 84484; 85025; 85610; 85730; 93005; 99283

== ENCOUNTER 2018-06-18 00:34 | Inpatient (IN) | payer MEDICARE, MEDICAID, SELFPAY ==
[2018-06-12 15:44] VITALS: BMI 55.5
[2018-06-12 20:31] VITALS: PULSE 67; RESP 26; O2SAT 91
[2018-06-18] VITALS (16 sets, daily range): BP systolic 106–125; BP diastolic 41–78; PULSE 61–86; RESP 10–24; TEMP 32.1–37.2; O2SAT 83–96; BMI 47.7
--- NOTE | 2018-06-18 00:59 | ED.RECABL ---
HPI - Recheck/Abnormal Lab/Rx General Chief Complaint: Recheck/Abnormal Lab/Rx Stated Complaint: Can't walk Time Seen by Provider: 06/18/18 00:54 History of Present Illness HPI narrative: Patient just discharged all less than an hour ago for weakness. She was discharged home by BLS however they felt who was not safe to leave her alone. She requires significant amount of assistance in continues to be weak. She continues to also have no complaints. Related Data Home Medications Medication Instructions Recorded Confirmed gabapentin [Neurontin] 600 mg PO Q6H #0 02/01/11 06/18/18 fluticasone [Flonase Allergy 2 spray INTRANASAL QDAY #0 09/28/17 06/18/18 Relief] hydrochlorothiazide 1 - 2 cap PO QDAYP PRN #0 09/28/17 06/18/18 albuterol sulfate 2 puff INHALATION Q4-6H PRN 04/12/18 06/18/18 aspirin 81 mg PO DAILY 04/12/18 06/18/18 hydrocodone-acetaminophen 1 tab PO Q6H PRN 04/12/18 06/18/18 metformin [Glucophage] 500 mg PO QAM 04/12/18 06/18/18 oxybutynin chloride 10 mg PO DAILY 04/12/18 06/18/18 ursodiol 300 mg PO BID 04/12/18 06/18/18 losartan 50 mg PO DAILY 06/04/18 06/18/18 digoxin [Digitek] 0.125 mg PO DAILY 06/12/18 06/18/18 diltiazem HCl [Cartia XT] 240 mg PO DAILY 06/12/18 06/18/18 simvastatin 20 mg PO QPM 06/17/18 06/18/18 warfarin 5 mg PO DAILY 06/17/18 06/18/18 Previous Rx's Medication Instructions Recorded atorvastatin [Lipitor] 10 mg PO BEDTIME #30 tab 04/15/18 metoprolol succinate 100 mg PO DAILY #30 tab 04/15/18 Allergies Allergy/AdvReac Type Severity Reaction Status Date / Time captopril [CAPTOPRIL] Allergy Unknown Verified 06/18/18 01:10 nabumetone [NABUMETONE] Allergy Unknown Rash Verified 06/18/18 01:10 Review of Systems Review of Systems All systems reviewed & are unremarkable except as noted in HPI and below PFSH Medical History Chronic anticoagulation (Acute) Chronic respiratory failure with hypoxia and hypercapnia (Acute) Iron deficiency anemia (Acute) Morbid obesity (Acute) Obesity hypoventilation syndrome (Acute) Atrial fibrillation (Chronic) Depression (Chronic) Diabetes (Chronic) Hyperlipidemia (Chronic) Hypertension (Chronic) Lumbar degenerative disc disease (Chronic) Obesity (Chronic) Osteoarthritis (Chronic) Pneumococcal meningitis (Chronic) Prolapsed bladder (Chronic) Cholelithiasis (Resolved) Fracture of left ankle (Resolved) Inguinal hernia (Resolved) Surgical History History of abdominoplasty (Resolved) History of gastric bypass (Resolved) Social History household members: none Smoking Status: Current every day smoker alcohol intake: former additional social history: lives alone Exam Initial Vital Signs Initial Vital Signs: Vital Signs Temperature 99.0 F 06/18/18 00:45 Pulse Rate 82 06/18/18 00:45 Respiratory Rate 22 06/18/18 00:45 Blood Pressure 106/41 L 06/18/18 00:45 Pulse Oximetry 95 06/18/18 00:45 GENERAL: obese alert female in no acute distress CARDIOVASCULAR: peripheral pulses in tact, cap refill <2 sec RESPIRATORY: No respiratory distress, speaks in full sentences without difficulty EXTREMITIES: Normal range of motion, no clubbing or edema. Neurovascularly intact NEUROLOGICAL: Cranial nerves II through XII grossly intact. Normal gait and speech. SKIN: Warm, dry, no petechiae, no rashes or lesions. Course Orders Ordered: ED Orders 06/18/18 01:58 Consult to Physician Routine 06/18/18 03:00 Urinalysis and Microscopic Routine Vital Signs - 8 hr 06/18/18 00:45 06/18/18 01:37 06/18/18 02:00 Temperature 99.0 F 98.0 F Pulse Rate 82 83 86 Respiratory Rate 22 16 Blood Pressure 106/41 L 125/73 H 116/55 L Pulse Oximetry 95 92 93 06/18/18 04:55 Temperature 97.5 F L Pulse Rate 82 Respiratory Rate 16 Blood Pressure 123/76 H Pulse Oximetry 91 MDM - Recheck/Abnormal Lab/Rx Lab Data Lab Results 06/18/18 Range/Units 03:00 Urine Color Yellow Urine Appearance Clear Urine pH 6.5 (4.5-8.0) Ur Specific [place] 1.015 (1.000-1.035) Urine Protein Negative (Negative) Urine Glucose (UA) Negative (Normal) g/dL Urine Ketones Negative (NEGATIVE) Urine Occult Blood Negative (Negative) Urine Nitrate Negative (Negative) Urine Bilirubin Negative (NEGATIVE) Urine Urobilinogen 2.0 H (0.2) E.U./dL Ur Leukocyte Esterase Negative (NEGATIVE) Urine RBC None seen (0-5/HPF) Urine WBC None seen (0-5/HPF) Ur Squamous Epith Cells 0-1 /hpf Urine Bacteria None seen (None) Ur Culture Indicated? Cult not indicated Micro UA Comment Not Reportable MDM Narrative Medical decision making narrative: patient is unsafe at home alone. She really is requiring significant amount of assistance. Dr. fox except her to observation Discharge Plan Departure Patient Disposition: Admitted as Observation Clinical Impression: Adult failure to thrive Discharge Date/Time: 06/18/18 02:00 Interventions: ED Discharge Assessment Last Done: 06/18/18 01:37 Admit Date/Time: 06/18/18 01:18 Admit Provider: Serjio Fox
--- NOTE | 2018-06-18 01:22 | PC.NURSE ---
Pt resting with eyes closed. Responds to verbal stimuli. Pulse ox sticker was placed to improve pt compliance with monitoring necessity, 93% on 2L NC.
--- NOTE | 2018-06-18 01:38 | PC.NURSE ---
Report given to floor. Informed about need for meza, states that she and her orientee will gladly do it, gesture very much appreciated.
[2018-06-18 03:24] LABS: Bacteria Urine None Seen; RBC Urine None Seen (0-5/HPF); WBC Urine None Seen (0-5/HPF)
[2018-06-18 03:25] LABS: Appearance Urine UA CLEAR; Bilirubin Urine UA NEGATIVE (NEGATIVE); Color Urine UA YELLOW; Glucose Urine UA NEGATIVE (Normal); Ketones Urine UA NEGATIVE (NEGATIVE); Leukocyte Esterase Urine UA NEGATIVE (NEGATIVE); Nitrite Urine UA Negative (Negative); Occult Blood Urine UA NEGATIVE (Negative); Protein Urine UA NEGATIVE (Negative); Specific Gravity Urine UA 1.015 (1.000-1.035); pH Urine UA 6.5 (4.5-8.0)
[2018-06-18 03:35] LABS: Culture Indicated Urine Cult Not Indicated; Squamous Epithelial Cell Urine 0-1 /HPF
--- NOTE | 2018-06-18 04:17 | PC.ADMIT ---
Admission Note: Pt arrived on unit at 0245 from ED in a patient bed. Completed admission and oriented pt to room, call light. Pt uncertain of some of new medications recently prescribed. Pt does complain of back pain 05/05. Placed meza, tolerated well. Per pt, on 3L O2 nasal cannula at home. The patient,Alem Donahue,67 y/o, was given written information regarding hospital policies, unit procedures and contact persons. Patient's smoking status: Current every day smoker. Vital Signs - 8 hr 06/18/18 00:45 06/18/18 01:37 06/18/18 02:00 Temperature 99.0 F 98.0 F Pulse Rate 82 83 86 Respiratory Rate 22 16 Blood Pressure 106/41 L 125/73 H 116/55 L Pulse Oximetry 95 92 93
[2018-06-18] MEDS: GABAPENTIN 600 MG TABLET PO (06:42)
[2018-06-18] MEDS: HYDROCODONE/ACET 5/325 TABLET 1.5 TAB PO (06:43)
--- NOTE | 2018-06-18 09:37 | P.HP_ITS ---
History of Present Illness Date Patient Seen: 06/18/18 Time Patient Seen: 09:00 Chief complaint: Can't walk Narrative: 67-year-old female, patient of Dr. Wilks who was brought back to the [facility] Emergency room last night for weakness. She was recently hospitalized at [facility] for the same complaint on June 12, 2018 to June 13, 2018. She had improvement of her mental status with the the use of BiPAP. Her Vicodin and gabapentin were also on hold. She had improvement of her mental status within 24 hr. She was able to ambulate with a walker without difficulty. She was subsequently discharged home. According to the ER note, her son has noticed that she was initially doing well after she was discharged from hospital. He did not visit her the day before yesterday. He found her somnolent in the chair. She was not able to get out of the chair. She was subsequently brought to the emergency room. Patient History Medical History Chronic anticoagulation (Acute) Chronic respiratory failure with hypoxia and hypercapnia (Acute) Iron deficiency anemia (Acute) Morbid obesity (Acute) Obesity hypoventilation syndrome (Acute) Atrial fibrillation (Chronic) Depression (Chronic) Diabetes (Chronic) Hyperlipidemia (Chronic) Hypertension (Chronic) Lumbar degenerative disc disease (Chronic) Obesity (Chronic) Osteoarthritis (Chronic) Pneumococcal meningitis (Chronic) Prolapsed bladder (Chronic) Cholelithiasis (Resolved) Fracture of left ankle (Resolved) Inguinal hernia (Resolved) Surgical History History of abdominoplasty (Resolved) History of gastric bypass (Resolved) Family & Social History Family History: Reviewed 06/18/18 by Carlota Hope MD Social History: household members none Prior Living Arrangements Apartment/Condo Safety & Behavioral: Feels Safe in Current No Environment Been Physically Hurt or No Threatened By a Person Suicidal Ideation Description None Suicide Plan Description No Plan Tobacco & Substance use: Tobacco type cigarettes Smoking Status Current every day smoker Smoking packs per day 1 alcohol intake former alcohol intake frequency 0-2 drinks per day Substance Use Type does not use Meds Home Medications Medication Instructions Recorded Confirmed Type gabapentin [Neurontin] 600 mg PO Q6H #0 02/01/11 06/18/18 History fluticasone [Flonase Allergy 2 spray INTRANASAL QDAY #0 09/28/17 06/18/18 History Relief] hydrochlorothiazide 1 - 2 cap PO QDAYP PRN #0 09/28/17 06/18/18 History albuterol sulfate 2 puff INHALATION Q4-6H PRN 04/12/18 06/18/18 History aspirin 81 mg PO DAILY 04/12/18 06/18/18 History hydrocodone-acetaminophen 1 tab PO Q6H PRN 04/12/18 06/18/18 History metformin [Glucophage] 500 mg PO QAM 04/12/18 06/18/18 History oxybutynin chloride 10 mg PO DAILY 04/12/18 06/18/18 History ursodiol 300 mg PO BID 04/12/18 06/18/18 History atorvastatin [Lipitor] 10 mg PO BEDTIME #30 tab 04/15/18 06/18/18 Rx metoprolol succinate 100 mg PO DAILY #30 tab 04/15/18 06/18/18 Rx losartan 50 mg PO DAILY 06/04/18 06/18/18 History digoxin [Digitek] 0.125 mg PO DAILY 06/12/18 06/18/18 History diltiazem HCl [Cartia XT] 240 mg PO DAILY 06/12/18 06/18/18 History simvastatin 20 mg PO QPM 06/17/18 06/18/18 History warfarin 5 mg PO DAILY 06/17/18 06/18/18 History Allergies Allergy/AdvReac Type Severity Reaction Status Date / Time captopril [CAPTOPRIL] Allergy Unknown Verified 06/18/18 01:10 nabumetone [NABUMETONE] Allergy Unknown Rash Verified 06/18/18 01:10 Review of Systems Constitutional Comments: No fever chills or sweats Cardiovascular Comments: No chest pain or shortness of breath Respiratory Comments: Denies cough Gastrointestinal Comments: No abdominal pain Genitourinary Comments: Denies dysuria Musculoskeletal Comments: No back pain Neurologic Comments: somnolent Exam Vital Signs (past 8 hours): - 06/18/18 01:37 06/18/18 02:00 06/18/18 04:55 Temperature 98.0 F 97.5 F L Pulse Rate 83 86 82 Respiratory Rate 16 16 Blood Pressure 125/73 H 116/55 L 123/76 H Pulse Oximetry 92 93 91 06/18/18 08:20 07/24/18 09:06 06/18/18 09:07 Temperature 97.6 F Pulse Rate 78 Respiratory Rate 16 Blood Pressure 109/56 L Pulse Oximetry 86 L 83 L 91 Oxygen Delivery Method Nasal Cannula Oxygen Flow Rate 4 Narrative Exam Narrative: GENERAL: Morbidly obese middle-aged woman in no acute distress. HEENT: Head normocephalic, atraumatic. Eyes pupils equal round NECK: Supple, no JVD, CHEST: Breath sounds equal bilaterally, no wheezes rales or rhonchi. CARDIAC: Regular rate and rhythm without murmurs, rubs or gallops. ABDOMEN: Soft, nontender. Normoactive bowel sounds all 4 quadrants. No guarding or rebound. EXTREMITIES: Normal range of motion, chronic venous stasis changes on the skin on bilateral lower leg, no clubbing or edema. NEUROLOGICAL: Lethargic, falls asleep in the middle of a sentence, arousable with verbal stimuli; Normal muscle strength. SKIN: Warm, dry, no petechiae, no rashes or lesions. Objective Imaging Chest x-ray: Radiologist's impression: Decreased but persistent mild pulmonary edema Labs Labs: Laboratory Results - last 24 hr 06/18/18 03:00 Urine Color Yellow Urine Appearance Clear Urine pH 6.5 Ur Specific [place] 1.015 Urine Protein Negative Urine Glucose (UA) Negative Urine Ketones Negative Urine Occult Blood Negative Urine Nitrate Negative Urine Bilirubin Negative Urine Urobilinogen 2.0 H Ur Leukocyte Esterase Negative Urine RBC None seen Urine WBC None seen Ur Squamous Epith Cells 0-1 /hpf Urine Bacteria None seen Ur Culture Indicated? Cult not indicated Micro UA Comment Not Reportable Assessment & Plan Plan: Assessment/Plan Narrative: 1. Weakness and somnolence: Possibly multifactorial. Side effect of gabapentin and Vicodin could contribute to her somnolence. Worsening Hypercapnia will definitely cause somnolence. We will check her ABG. Start RT evaluation treatment. Use albuterol nebulizer treatments as needed. Use BiPAP as needed. Hold gabapentin and Vicodin. Start PT/OT evaluation and treatment. 2. Morbid obesity, BMI 47.7: Patient needs lifestyle modifications and weight loss 3. Chronic anemia: Hemoglobin is relatively stable. She is on Coumadin for anticoagulation. INR was 1.8 yesterday 4. Chronic atrial fibrillation: Ventricular rate is reasonably controlled. Continue current dose of metoprolol and diltiazem. Continue Coumadin for anticoagulation. 5. Morbid obesity with hypoventilation syndrome: She may benefit from BiPAP use as needed 6. Type 2 diabetes: Hold metformin due to recent IV contrast use. Check fingerstick glucose readings. Use sliding scale insulin as needed. 7. Code status: Do not resuscitate. Code status was discussed with patient herself. 8. Disposition: Discharge home when she is medically more stable.
[2018-06-18 10:18] LABS: pH ABG 7.36 (7.35-7.45)
[2018-06-18 10:19] LABS: Fractionated Inspired Oxygen 32; HCO3 ABG 43 mmol/L (23-27); Oxygen Saturation ABG 93 % (95-100); PCO2 ABG 75.1 mmHg (35-45); PO2 ABG 72 mmHg (80-105); TCO2 ABG 45 mmol/L (23-27)
--- NOTE | 2018-06-18 11:00 | CM.DANOTE ---
DCP: Case received, EMR reviewed and met with patient. Introduced self and role. DCP template completed with information currently available. Patient is a 67 year old female who was admitted early this am to the care of the hospitalist team. PCP: Dr. Prabhakar. Payer: confirmed: [facility] Medicare/Medicaid Patient was admitted early this morning secondary to somulence in her chair at her apartment. Son had found her. Had recently been here secondary to weakness, as well. Patient lives at [facility], and has a [facility] caregiver in the home for several hours. Patient had been here recently, and had encouraged family to call [facility] spring encaser regarding increasing caregiving hours. Patient is now wanting to go to assisted living. Called and left a message with [facility] spring encaser regarding assessing patient for assisted living. P: DCP will continue to plan and assess. Patient is observation status at this time. Home Health may also be an option. Will await call back from [facility] compliance program manager. Iman Allen RN/compliance program manager
[2018-06-18] MEDS: DIGOXIN 0.125 MG TABLET PO (11:01)
[2018-06-18] MEDS: dilTIAZem CD 240 MG CAP PO (11:01)
[2018-06-18] MEDS: METFORMIN HCL 500 MG TABLET PO (11:02)
[2018-06-18] MEDS: METOPROLOL ER 50 MG TABLET 100 MG PO (11:02)
--- NOTE | 2018-06-18 11:17 | PC.NURSE ---
Addendum entered by Chucho Pretty R.N. 06/18/18 12:24: Repeat ABG done and reported to Dr. Hope by RT. Reviewed results with Dr. Hope as well. No new orders at this time. RT changed bipap settings. Pt asking when bipap can come off and intermittently taking mask off. Reoriented to situation and need for bipap. Call light in reach. Caregiver at bedside. Original Note: Rec'd pt from acute care to 104 for bipap r/t CO2 retention 1100 on 3L NC with SPO2 96%. Pt is awake but quickly falls asleep with decreased stimuli. Awakens to verbal stimuli. Answers questions appropriately with clear speech. Oriented to room/environment/situation. RT at bedside placing bipap. Call light in reach.
--- NOTE | 2018-06-18 11:31 | PC.NURSE ---
Dayshift Note: Pt checked on and assessed. Pt received on 3 L NC, home O2 dose, SPO2 low to mid 90s. Lungs with rhonchi in uppers, partially clears with coughing. Diminished in bases. Pt encouraged to cough and deep breathe. Pt was initially sleeping, but easily arousable to voice. Pt denies pain, had been given vicodin and gabapentin on table games shift manager. Pt remained somnolent, increasingly difficult to maintain wakefulness, falling asleep during conversations. Dr. Hope to bedside to evaluate, ordered ABG with CO2 critical at 75. Dr. Hope notified. Orders received for pt to transfer to ICU for bipap therapy. Report given to Michael and pt transferred via bed to ICU unit.
--- NOTE | 2018-06-18 11:32 | PT.IPTN ---
Physical Therapy Treatment Note Subjective Physical Therapy Visit Type Type Patient Unavailable Notes Pt about to start bipap, not high priority to see right this moment, will allow for medical intervention to improve pt's status prior to PT evaluation. Will attempt in the afternoon or tomorrow.
--- NOTE | 2018-06-18 12:02 | OT.IP.TRT ---
Occupational Therapy Treatment Note M3 OT- IP Subjective and Pain Start: 06/18/18 12:00 Freq: Status: Active Protocol: Document 06/18/18 12:00 TERESA (Rec: 06/18/18 12:02 PJ [id number]) OT- Subjective Occupational Therapy Visit Type Type Administrative Note Visit Start Time 12:00 Notes OT referral received. Pt transferred to ICU this AM to start BIPAP. Will allow pt's respiratory status to stabilize now and initiate OT evaluation as medical status permits. No charge.
[2018-06-18 12:14] LABS: HCO3 ABG 43 mmol/L (23-27); Oxygen Saturation ABG 95 % (95-100); PCO2 ABG 76.7 mmHg (35-45); PO2 ABG 85 mmHg (80-105); TCO2 ABG 46 mmol/L (23-27); pH ABG 7.36 (7.35-7.45)
[2018-06-18 12:15] LABS: Fractionated Inspired Oxygen 32
--- NOTE | 2018-06-18 13:19 | PT.IPTN ---
Physical Therapy Treatment Note Subjective Physical Therapy Visit Type Type Patient Unavailable Notes RN reports they are still trying to work with patient on using bipap, she's not wanting to keep it on for very long. RN requesting that PT hold until tomorrow to give them more time to work on her breathing.
[2018-06-18 14:19] LABS: Fractionated Inspired Oxygen 32; HCO3 ABG 44 mmol/L (23-27); Oxygen Saturation ABG 96 % (95-100); PCO2 ABG 72.2 mmHg (35-45); PO2 ABG 85 mmHg (80-105); TCO2 ABG 47 mmol/L (23-27)
[2018-06-18] MEDS: OXYBUTYNIN 5 MG ER TAB 10 MG PO (14:38)
[2018-06-18] MEDS: LOSARTAN 50 MG TABLET PO (14:38)
--- NOTE | 2018-06-18 16:07 | CM.DPC ---
DCP Cont: Spoke to daughter Brionna and son. They are working on getting Durable POA done. Patient is now inpatient status, and family is wanting her to be here 3 nights to qualify for skilled, for she is not safe at home. Let family know that Cynthia at [facility] was already contacted. Did also discuss [facility], which is now assisted living. After skilled, patient may be able to go to [facility], for they are contracted with her insurance, according to her [employer] case hardener. P: DCP assess and plan, and advocate for inpatient 3 days to be able to go to [facility]. Iman Allen RN/Dump [employer] [address]
[2018-06-18] MEDS: SIMVASTATIN 20 MG TABLET PO (17:41)
[2018-06-18] MEDS: HYDROCODONE/ACET 10/325 TABLET 1 TAB PO (17:46)
[2018-06-18] MEDS: WARFARIN 5 MG TABLET PO (19:45)
--- NOTE | 2018-06-18 20:14 | PC.NURSE ---
Patient family discussing plan of care with supply planner beginning of shift. Patient taking o2 off, pulled off monitor pads saying they itch. also reminded to leave o2 sat monitor on finger. Feels breathing better today, more awake- does not remember some of today's events.
[2018-06-18] MEDS: GABAPENTIN 300 MG CAPSULE PO (21:22)
[2018-06-18] MEDS: ATORVASTATIN 10 MG TABLET PO (21:22)
--- NOTE | 2018-06-18 22:24 | PC.NURSE ---
Reviewed plan for using bipap at night- patient says she will refuse it.
[2018-06-19] VITALS (8 sets, daily range): BP systolic 100–118; BP diastolic 50–64; PULSE 59–72; RESP 15–24; TEMP 36.1–37; O2SAT 91–96
[2018-06-19] MEDS: HYDROCODONE/ACET 10/325 TABLET 1 TAB PO (02:16)
--- NOTE | 2018-06-19 06:20 | PC.NURSE ---
Patient refuses Bi-pap, on 3L NC throughout night, SpO2 92-97% when wearing cannula, desats to 80% when she takes it off. Weak and drowsy but mostly oriented. 1 Vicodin given for back pain.
[2018-06-19] MEDS: LOSARTAN 50 MG TABLET PO (08:55)
[2018-06-19] MEDS: GABAPENTIN 300 MG CAPSULE PO ×3 (08:55→21:17)
[2018-06-19] MEDS: DIGOXIN 0.125 MG TABLET PO (08:55)
[2018-06-19] MEDS: METOPROLOL ER 50 MG TABLET 100 MG PO (08:56)
[2018-06-19] MEDS: ASPIRIN EC 81 MG TABLET PO (08:56)
[2018-06-19] MEDS: OXYBUTYNIN 5 MG ER TAB 10 MG PO (08:56)
[2018-06-19] MEDS: dilTIAZem CD 240 MG CAP PO (08:56)
[2018-06-19] MEDS: SODIUM CHLORIDE 0.9% FLUSH 10 ML IV (08:56)
[2018-06-19] MEDS: METFORMIN HCL 500 MG TABLET PO (08:56)
--- NOTE | 2018-06-19 09:06 | PC.NURSE ---
Addendum entered by Chucho Pretty R.N. 06/19/18 12:02: ordered MR lumbar spine. Pt refused. notified. Original Note: Pt drowsy but rousable to verbal stimuli. Awakens and answers questions appropriately. Asking for breakfast. Pt able sit up to edge of bed independently but unable to stand to transfer to chair. She's currently sitting up to EOB feeding self breakfast. On 3L NC with SPO2 93-94%. Call light in reach.
--- NOTE | 2018-06-19 10:30 | PT.IIE ---
Surgical History (Last Reviewed 06/18/18 @ 09:45 by Carlota Hope MD) History of abdominoplasty (Resolved) History of gastric bypass (Resolved) Medical History (Last Reviewed 06/18/18 @ 09:45 by Carlota Hope MD) Chronic anticoagulation (Acute) Chronic respiratory failure with hypoxia and hypercapnia (Acute) Iron deficiency anemia (Acute) Morbid obesity (Acute) Obesity hypoventilation syndrome (Acute) Atrial fibrillation (Chronic) Depression (Chronic) Diabetes (Chronic) Hyperlipidemia (Chronic) Hypertension (Chronic) Lumbar degenerative disc disease (Chronic) Obesity (Chronic) Osteoarthritis (Chronic) Pneumococcal meningitis (Chronic) Prolapsed bladder (Chronic) Cholelithiasis (Resolved) Fracture of left ankle (Resolved) Inguinal hernia (Resolved) Physical Therapy Inpatient Evaluation/Re-Eval M1 PT/OT-IP Prior Functional Status Start: 06/18/18 11:28 Freq: NEEDED Status: Active Protocol: Document 06/19/18 10:30 MDD (Rec: 06/19/18 11:09 MDD [id number]) Medical Review Prior Functional Status Medical History Reviewed Yes Communication Mildly illogical. Difficulty following through/processing commands. Mobility and Gait Reports she was walking in home distances (to and from bathroom and bedroom) with 4WW . Activities of Daily Living and IADL's Has someone that comes in to assist 2 hours daily, 5 days per week to assist with shopping, cleaning, cooking, laundry etc. Reports she was making some of her own meals. Social History Household Members none Living Arrangements Apartment/Condo Number of Stairs To Enter/Railing? 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 M2 PT-IP Current Condition Start: 06/18/18 11:28 Freq: NEEDED Status: Active Protocol: Document 06/19/18 10:30 MDD (Rec: 06/19/18 11:09 MDD [id number]) Physical Therapy Current Condition Current Condition Evaluation Date 06/19/18 Treatment Diagnosis impaired mobility Onset Date 06/18/18 M3 PT-IP Subjective Start: 06/18/18 11:28 Freq: NEEDED Status: Active Protocol: Document 07/25/18 10:30 MDD (Rec: 06/19/18 11:09 [facility] [id number]) Subjective Physical Therapy Visit Type Type Initial Evaluation Visit Start Time 09:45 Visit Stop Time 10:30 Total Visit Minutes 45 Notes Session performed as co- treatment with OT Number of [employer] Visits 0 Physical Therapy Visit Comments Patient Comments Pt reports she is agreeable to working with therapies this day. Reports severe pain in R knee bone Short Term Goals scoot upward in bed, perform bed > W/C transfer Therapy Pain Assessment Pain When Pain Assessed At Rest Pain Present Pain Present Pain Reported Location Back Intensity 8 Scale Used Numeric (1 - 10) Description Aching Pain Behaviors Facial Grimacing Restlessness Wincing M4 PT-IP Mobility and Gait Start: 06/18/18 11:28 Freq: NEEDED Status: Active Protocol: Document 06/19/18 10:30 MDD (Rec: 06/19/18 11:09 [facility] [id number]) PT-Bed Mobility Assessment Rolling Level of Assist Moderate Assistance Sit to Supine Sit to Supine Maximum Assistance 2 Person Assistance Scooting Scooting to Edge of Bed Dependent Scooting Up and Down in Bed Dependent PT-Transfer Assessment Sit to and From Stand Sit to and from Stand Total Assistance 2 Person Assistance PT-Balance Assessment Sitting Balance and Reactions Static Sitting Balance Ability Normal Dynamic Sitting Balance Ability Good M5 PT-IP Objective Assessments Start: 06/18/18 11:28 Freq: NEEDED Status: Active Protocol: Document 06/19/18 10:30 MDD (Rec: 06/19/18 11:09 [facility] [id number]) Orientation Orientation/Cognition Level of Alertness Lethargic Orientation Name Place Safety Awareness Decreased Safety Awareness Memory Description Short Term Impaired Comments Pt repeatedly questioning what objective is today. Difficulty processing commands and following through. Difficulty maintaining focus during session. Gross Range of Motion Lower Extremity ROM Assessment Within Functional Limits Strength Lower Extremity Strength Assessment Within Functional Limits M6 PT-IP Treatment Start: 06/18/18 11:28 Freq: NEEDED Status: Active Protocol: Document 06/19/18 10:30 MDD (Rec: 06/19/18 11:09 [facility] [id number]) Physical Therapy Treatment Exercises Exercises Ankle Pumps Gluteal Sets Education Education Provided Safety Other Treatments Other Treatment Performed Attempted education on supine exercises. Pt had difficulty following through with more than a few of each, dozing off intermittently. M7 PT-IP Assessment and Plan Start: 06/18/18 11:28 Freq: NEEDED Status: Active Protocol: Document 06/19/18 10:30 MDD (Rec: 06/19/18 11:09 MDD [id number]) PT Summary Assessment and Plan Potential Rehabilitation Potential Fair Status of Condition at Evaluation Evolving Summary Impairments Pain Strength Bed Mobility Transfers Gait Activity Tolerance Progress Towards Goals Slow Progress due to Pain Slow Progress due to Activity Tolerance Assessment Summary Pt refused to try a sit to stand or scooting upwards in bed today, despite encouragement and multiple attempts. She appears able to sit up in long sitting independently, but was unable to make an effort to perform bed mobility due to complaints of R knee pain. Also appears confused and reports she does not remember much from yesterday. Any transfers should be performed with a elena or overhead lift for safety. Goals Bed Mobility Goal Contact Guard Assistance Transfer Goal Contact Guard Assistance Gait Goal Contact Guard Assistance Gait Distance 20 feet with FWW on level ground Days to Meet Goals 3 Frequency of Treatment Frequency Of Treatment Once a Day Treatment Plan Physical Therapy Treatment Plan Bed Mobility Training Transfer Training Gait Training Therapeutic Exercise Recommendations To Nursing Amount of Assist Needed Mechanical Lift Discharge Recommendations PT Discharge Recommendations SNF Rehab
--- NOTE | 2018-06-19 10:31 | OT.IP.EVAL ---
Past Medical History (Last Reviewed 06/18/18 @ 09:45 by Carlota Hope MD) Chronic anticoagulation (Acute) Chronic respiratory failure with hypoxia and hypercapnia (Acute) Iron deficiency anemia (Acute) Morbid obesity (Acute) Obesity hypoventilation syndrome (Acute) Atrial fibrillation (Chronic) Depression (Chronic) Diabetes (Chronic) Hyperlipidemia (Chronic) Hypertension (Chronic) Lumbar degenerative disc disease (Chronic) Obesity (Chronic) Osteoarthritis (Chronic) Pneumococcal meningitis (Chronic) Prolapsed bladder (Chronic) Cholelithiasis (Resolved) Fracture of left ankle (Resolved) Inguinal hernia (Resolved) Surgical History (Last Reviewed 06/18/18 @ 09:45 by Carlota Hope MD) History of abdominoplasty (Resolved) History of gastric bypass (Resolved) Occupational Therapy Inpatient Evaluation/Re-Eval M1 PT/OT-IP Prior Functional Status Start: 06/18/18 11:28 Freq: NEEDED Status: Active Protocol: Document 06/19/18 12:02 PJM (Rec: 06/19/18 12:21 [facility] [id number]) Medical Review Prior Functional Status Medical History Reviewed Yes Diet/Fluid Consistency Regular Communication Mildly illogical. Difficulty following through/processing commands. Appears mildly [place] asking for frequent repetition of instructions and states she misheard words. Mobility and Gait Reports she was walking in home distances (to and from bathroom and bedroom) with 4WW . Activities of Daily Living and IADL's Has someone that comes in to assist 2 hours daily, 5 days per week to assist with shopping, cleaning, cooking, laundry etc. Reports she was making some of her own meals. Prior Functional Level (Other details) Note this is pt's 4rth hospital ED visit and/or admit in last 2 months. Social History Household Members none Living Arrangements Apartment/Condo Number of Stairs To Enter/Railing? Her apartment is on the 3rd floor, elevator to enter Home Environment Standard Height Toilet Tub/Shower Elevator Home Equipment Four Wheel Walker Tub Transfer Barker Operator Held Shower Grab Bars Near Toilet Grab Bars In Shower Employment Status Retired Additional Social History Comment Pt has a son that lives here in [place]. M2 OT-IP Current Condition Start: 06/18/18 12:00 Freq: Status: Active Protocol: Document 06/19/18 12:02 PJM (Rec: 06/19/18 12:21 [facility] [id number]) Occupational Therapy Current Condition Current Condition Evaluation Date 06/19/18 Treatment Diagnosis decreased self care/functional mobility due to respiratory failure/hypoxia Post Operative Precautions Other Precautions Fall risk, mechanical lift needed for transfers M3 OT- IP Subjective and Pain Start: 06/18/18 12:00 Freq: Status: Active Protocol: Document 06/19/18 12:02 PJ (Rec: 06/19/18 12:21 [facility] [email or web address]) OT- Subjective Occupational Therapy Visit Type Type Initial Evaluation Visit Start Time 09:45 Visit Stop Time 10:31 Total Visit Minutes 46 Notes co tx with P.T. as 2 skilled persons needed for attempts at mobility Occupational Therapy Visit Comments Patient Comments I don't remember anything about yesterday. Patient/Caregiver Goals to be able to get in and out of bed, have less knee pain OT Pain Assessment Pain When Pain Assessed After Treatment Pain Present Pain Present Pain Reported Location Right Knee Intensity 8 Description Aching M4 OT- IP ADL's Start: 06/18/18 12:00 Freq: Status: Active Protocol: Document 06/19/18 12:02 MARÍA (Rec: 06/19/18 12:21 [facility] [email or web address]) OT [id number]-[id number] General Evaluation Self-Feeding Ability Independent Comments OT Self-Feeding Comments after set up seated EOB OT ADL-Grooming General Evaluation Grooming Ability Standby Assistance Areas Needing Assistance Retrieving/Set-up of Grooming Items Combing/Brushing Hair Face Washing OT ADL-Dressing General Eval Upper Body Dressing Ability Standby Assistance Lower Body Dressing Ability Independent Total Assistance Areas Needing Assistance Retrieving/Set-up of Clothing OT ADL-Toileting General Evaluation Toileting Ability Total Assistance Comments OT Toileting Comments pt has meza at present OT ADL-Bathing Bathing Type Bathing Type Sponge Bath General Evaluation Bathing Ability Maximal Assistance M5 OT- IP IADL's Start: 06/18/18 12:00 Freq: Status: Active Protocol: Document 06/19/18 12:02 MARÍA (Rec: 06/19/18 12:21 [facility] [id number]) OT-Instrumental Activities of Daily Living Deficits IADL Deficits Identified Deficits Home Safety Awareness Awareness of Need for Assistance at Home Decreased Awareness Ability to Problem Solve Emergency Unable to Problem Solve Situations Medication Management Medication Management Comments Pt needs assist with all medication management at present Money Management Money Management Comments Pt needs assist with all financial institution manager at present Meal Preparation Meal Preparation Caregiver Provides Assist Meal Preparation Comments foster care worker provided some assist with meal prep prior to admit. Director Title Director Title Caregiver Provides Assist Driving Driving Caregiver Provides Assist M6 OT- IP Functional Cognition Start: 06/18/18 12:00 Freq: Status: Active Protocol: Document 06/19/18 12:02 PJ (Rec: 06/19/18 12:21 [facility] [id number]) Cognitive Factors Limiting Selfcare Function Cognitive Ability Level of Alertness Drowsy Patient Orientation Name Place Attention Span Ability Unable to Focus Ability to Follow Commands Able to Follow One Step Commands with Increased Time Memory Description Short Term Impaired Safety Awareness Underestimates Need for Assistance Problem Solving Ability Unable to Identify Errors Needs Assist to Identify Solutions Executive Function Ability Unable to Hold Focus Unable to Filter Distractions Unable to Make Plans Unable to Organize Plans Unable to Remember Details Unable to Integrate Past Experience With Present Action Abstract Thinking Ability Unable to Draw Logical Conclusions Unable to Be Adaptable in Thinking Unable to Apply Concepts to New Surroundings Unable to Apply Concepts to New Situations Cognitive Comments Cognitive Assessment Comments Pt presents with slow speed of processing and difficulty initiating participation in sit to stand or scooting along edge of bed. Pt appears mildly confused with significantly decreased insight into current situation . Pt has been refusing BIPAP, and does not appear to understand the severity of her current respiratory status. OT- Vision and Hearing OT- Vision Assessment Vision Assessment Comments Pt appears [place], mishearing words frequently and asking for clarification. Further assessment of vision to follow . M7 OT- IP Mobility and Balance Start: 06/18/18 12:00 Freq: Status: Active Protocol: Document 06/19/18 12:02 [facility] (Rec: 06/19/18 12:21 [facility] [id number]) OT- Bed Mobility Assessment Sit to Supine Sit to Supine Assist Maximum Assistance 2 Person Assistance Scooting Scooting Up and Down in Bed Maximum Assistance 2 Person Assistance OT-Transfer Assessment Sit to and From Stand Sit to and from Stand Total Assistance Transfers Transfer Ability Total Assistance Devices Transfer Assistive Devices Mechanical Lift Comments Mobility Comments Decreased effort and attention to task during attempts at sit to stand and scooting along edge of bed. Pt fearful of R knee pain during mobility . Pt currently needs mechanical lift for all transfers and would benefit from room with ceiling lift. OT- Gait Assessment Comments Gait Ability Comments Pt unable to ambulate this session OT- Balance Assessment Sitting Balance and Reactions Static Sitting Balance Ability Good Dynamic Sitting Balance Ability Fair M8 OT- IP Objective Assessments Start: 06/18/18 12:00 Freq: Status: Active Protocol: Document 06/19/18 12:02 PJM (Rec: 06/19/18 12:21 PJ [id number]) OT Gross Range of Motion Upper Extremity Range of Motion Assessment Within Functional Limits OT Strength Upper Extremity Strength Assessment Within Functional Limits OT- Coordination Assessment Comments Coordination Comments WFL BUE for self feeding. OT-Muscle Tone Assessment Muscle Tone WNL Yes OT Sensation Assessment Comments Summary Comments Pt denies sensory deficits in BUE's M9 OT- IP Assessment and Plan Start: 06/18/18 12:00 Freq: Status: Active Protocol: Document 06/19/18 12:02 PJM (Rec: 06/19/18 12:21 PJ [id number]) OT Summary Assessment and Plan Potential Rehabilitation Potential Fair Analytic Complexity at Evaluation Moderate Summary OT Impairments Pain Strength Balance Functional Cognition Functional Mobility Grooming Dressing Toileting Bathing Toilet Transfers Shower Transfers Assessment Summary Moderate complexity OT assessment due to pt's fragile respiratory status, obesity and decreased functional cognition. Pt currently has performance deficits in attention/concentration, memory, insight, all functional mobility/transfers, dressing, bathing , toileting . She currently needs mechanical lift for transfers. Recommend SNF at discharge. Goals Grooming Goal Independent Dressing Goal Minimal Assistance Toileting Goal Moderate Assistance Bathing Goal Moderate Assistance Toilet Transfer Goal Moderate Assistance Shower Transfer Goal Moderate Assistance OT-Other Goals Pt to participate in graded functional cognition tasks related to IADLS with min cues and 90% accuracy. Days to Meet Goals 10 Frequency of Treatment Frequency Of Treatment Once a Day Treatment Plan OT Treatment Plan ADL Training Functional Cognition Training Functional Mobility Patient/Family Education Discharge Planning Discharge Recommendations OT Discharge Recommendations SNF Rehab Home Equipment Needs to be determined in next rehab setting
--- NOTE | 2018-06-19 11:53 | PM.PN.1 ---
Subjective Date Patient Seen: 06/19/18 Time Patient Seen: 11:00 Interval history: She was transferred to intensive care unit yesterday due to hypercapnia and somnolence. She did have improvement of her mental status several hours after she was on the BiPAP. Nursing has reported that she was not compliant with BiPAP. Patient is more awake today. She still was not able to ambulate with physical therapy. She was able to sit at the edge of the bed and was afraid of standing up from a sitting position. Exam Vital Signs (past 8 hours): - 06/19/18 04:37 06/19/18 07:51 06/19/18 08:55 Temperature 98.6 F 97.8 F Pulse Rate 64 62 72 Respiratory Rate 19 16 Blood Pressure 118/54 L 110/64 Pulse Oximetry 94 Fraction of Inspired Oxygen 32 Oxygen Delivery Method Nasal Cannula Oxygen Flow Rate 3 Narrative Exam Narrative: Morbidly obese middle-aged woman in no acute distress. HEENT: Head normocephalic, atraumatic. Eyes pupils equal round NECK: Supple, no JVD, CHEST: Breath sounds equal bilaterally, no wheezes rales or rhonchi. CARDIAC: Regular rate and rhythm without murmurs, rubs or gallops. ABDOMEN: Soft, nontender. Normoactive bowel sounds all 4 quadrants. No guarding or rebound. EXTREMITIES: Normal range of motion, chronic venous stasis changes on the skin on bilateral lower leg, no clubbing or edema. NEUROLOGICAL: Alert and oriented x3; Normal muscle strength. SKIN: Warm, dry, no petechiae, no rashes or lesions. Objective Labs Labs: Laboratory Results - last 24 hr 06/18/18 06/18/18 06/18/18 12:00 12:05 14:07 ABG pH 7.36 7.40 ABG pCO2 76.7 H* 72.2 H* ABG pO2 85 85 ABG HCO3 43 H 44 H ABG Total CO2 46 H 47 H ABG O2 Saturation 95 96 ABG Base Excess 18.0 H 20.0 H FiO2 32 32 Nasal Screen MRSA (PCR) Negative for mrsa Assessment & Plan Plan: Assessment/Plan Narrative: 1. Weakness and somnolence: Possibly multifactorial. Side effect of gabapentin and Vicodin could contribute to her somnolence. Worsening Hypercapnia will definitely cause somnolence. We have decreased her gabapentin to 300 mg 3 times a day. I also cut down on the [place] to 5/325 mg every 4 hr as needed. Use BiPAP as needed. Continue PT/OT evaluation and treatment. 2. Bilateral lower extremity weakness: She was able to walk with a walker when she was admitted to the hospital last time. She has not been able to stand up today. I was planning to do a lumbar spine MRI to evaluate for possible spinal stenosis. Patient refused MRI scan. We will continue physical therapy. 2. Morbid obesity, BMI 47.7: Patient needs lifestyle modifications and weight loss 3. Chronic anemia: Hemoglobin is relatively stable. She is on Coumadin for anticoagulation. INR was 1.8 yesterday 4. Chronic atrial fibrillation: Ventricular rate is reasonably controlled. Continue current dose of metoprolol and diltiazem. Continue Coumadin for anticoagulation. Recheck INR in the morning 5. Morbid obesity with hypoventilation syndrome: She is not compliant with BiPAP use. 6. Type 2 diabetes: Hold metformin for another day due to recent IV contrast use. Check fingerstick glucose readings. Use sliding scale insulin as needed. 7. Code status: Do not resuscitate. Code status was discussed with patient herself. 8. Disposition: Continue PT/OT. She may need long term facility placement at discharge.
[2018-06-19] MEDS: SIMVASTATIN 20 MG TABLET PO (17:15)
[2018-06-19] MEDS: WARFARIN 5 MG TABLET PO (17:15)
[2018-06-19] MEDS: ATORVASTATIN 10 MG TABLET PO (21:17)
[2018-06-20] MEDS: HYDROCODONE/ACET 5/325 TABLET 1 TAB PO ×2 (00:37→09:07)
[2018-06-20 00:44] VITALS: BP 117/58; PULSE 71; RESP 20; TEMP 37.1; O2SAT 90
[2018-06-20 04:52] VITALS: BP 104/51; PULSE 60; RESP 20; TEMP 36.6; O2SAT 94
[2018-06-20 06:01] LABS: INR 2.1 (0.9-1.3); Prothrombin Time 23.3 SECONDS (10.1-12.7)
[2018-06-20 07:31] VITALS: BP 112/56; PULSE 65; RESP 22; TEMP 36.9; O2SAT 90
[2018-06-20] MEDS: SODIUM CHLORIDE 0.9% FLUSH 10 ML IV (09:01)
[2018-06-20] MEDS: OXYBUTYNIN 5 MG ER TAB 10 MG PO (09:01)
[2018-06-20] MEDS: LOSARTAN 50 MG TABLET PO (09:01)
[2018-06-20] MEDS: ASPIRIN EC 81 MG TABLET PO (09:02)
[2018-06-20] MEDS: METFORMIN HCL 500 MG TABLET PO (09:02)
[2018-06-20] MEDS: GABAPENTIN 300 MG CAPSULE PO ×3 (09:02→22:14)
[2018-06-20] MEDS: METOPROLOL ER 50 MG TABLET 100 MG PO (09:02)
[2018-06-20] MEDS: DIGOXIN 0.125 MG TABLET PO (09:02)
[2018-06-20] MEDS: dilTIAZem CD 240 MG CAP PO (09:03)
--- NOTE | 2018-06-20 11:26 | PT.IPTN ---
Current Diagnoses Somnolence (06/18/18) Physical Therapy Treatment Note M2 PT-IP Current Condition Start: 06/18/18 11:28 Freq: NEEDED Status: Active Protocol: Document 06/19/18 10:30 MDD (Rec: 06/19/18 11:09 MDD [id number]) Physical Therapy Current Condition Current Condition Evaluation Date 06/19/18 Treatment Diagnosis impaired mobility Onset Date 06/18/18 M3 PT-IP Subjective Start: 06/18/18 11:28 Freq: NEEDED Status: Active Protocol: Document 06/20/18 11:26 MDD (Rec: 06/20/18 12:53 MDD [id number]) Subjective Physical Therapy Visit Type Type Treatment Note Visit Start Time 10:55 Visit Stop Time 11:26 Total Visit Minutes 31 Notes Pt sitting at EOB, would like to return to bed. Performed as a co-treatment with OT. Number of [employer] Visits 0 Physical Therapy Visit Comments Patient Comments Pt reports feeling better today. Remembers most of yesterday. Seems much more coherent, but continues to be easily distracted. Therapy Pain Assessment Pain When Pain Assessed At Rest Pain Present Pain Present Pain Reported Location Right Knee Scale Used Doesn't give a number, but complaining of numbness/pain in R posterior knee M4 PT-IP Mobility and Gait Start: 06/18/18 11:28 Freq: NEEDED Status: Active Protocol: Document 06/19/18 10:30 MDD (Rec: 06/19/18 11:09 MDD [id number]) PT-Bed Mobility Assessment Rolling Level of Assist Moderate Assistance Sit to Supine Sit to Supine Maximum Assistance 2 Person Assistance Scooting Scooting to Edge of Bed Dependent Scooting Up and Down in Bed Dependent PT-Transfer Assessment Sit to and From Stand Sit to and from Stand Total Assistance 2 Person Assistance PT-Balance Assessment Sitting Balance and Reactions Static Sitting Balance Ability Normal Dynamic Sitting Balance Ability Good M5 PT-IP Objective Assessments Start: 06/18/18 11:28 Freq: NEEDED Status: Active Protocol: Document 06/19/18 10:30 MDD (Rec: 06/19/18 11:09 MDD [id number]) Orientation Orientation/Cognition Level of Alertness Lethargic Orientation Name Place Safety Awareness Decreased Safety Awareness Memory Description Short Term Impaired Comments Pt repeatedly questioning what objective is today. Difficulty processing commands and following through. Difficulty maintaining focus during session. Gross Range of Motion Lower Extremity ROM Assessment Within Functional Limits Strength Lower Extremity Strength Assessment Within Functional Limits M6 PT-IP Treatment Start: 06/18/18 11:28 Freq: NEEDED Status: Active Protocol: Document 06/20/18 11:26 MDD (Rec: 06/20/18 12:53 [facility] [id number]) Physical Therapy Treatment Exercises Exercises Ankle Pumps Gluteal Sets Short Arc Quads Education Education Provided Safety Other Treatments Other Treatment Performed Seated therex at EOB as above. Therapeutic activities: Seated practice with rocking forward in preparation for standing x 5. Practice scooting upwards at EOB x 3. Attempted to stand x 2 with max Ax2. Unable to stand up fully, but able to lift off bed slightly. Bed mobility: Sit > supine A at LE's. Required cues and positioning with LE's for scooting and repositioning hips. Demonstrated ability to sit upright in long sitting with HOB elevated 30 degrees wihtout UE support. M7 PT-IP Assessment and Plan Start: 06/18/18 11:28 Freq: NEEDED Status: Active Protocol: Document 06/20/18 11:26 MDD (Rec: 06/20/18 12:53 [facility] [id number]) PT Summary Assessment and Plan Potential Rehabilitation Potential Good Status of Condition at Evaluation Evolving Summary Impairments Pain Strength Bed Mobility Transfers Gait Activity Tolerance Progress Towards Goals Progressing Toward Goals Assessment Summary Pt demonstrates improved ability to offweight buttocks and scoot upwards when seated EOB with CGA only (max verbal cues, needs a lot of encouragement). Goals Bed Mobility Goal Contact Guard Assistance Transfer Goal Contact Guard Assistance Gait Goal Contact Guard Assistance Gait Distance 20 feet with FWW on level ground Days to Meet Goals 3 Frequency of Treatment Frequency Of Treatment Once a Day Treatment Plan Physical Therapy Treatment Plan Bed Mobility Training Transfer Training Gait Training Therapeutic Exercise Recommendations To Nursing Amount of Assist Needed Mechanical Lift Discharge Recommendations PT Discharge Recommendations SNF Rehab
--- NOTE | 2018-06-20 11:42 | P.PN_ITS ---
Subjective Date Patient Seen: 06/20/18 Time Patient Seen: 11:40 Interval history: No complaints Exam Vital Signs (past 8 hours): - 06/20/18 04:52 06/20/18 07:31 Temperature 97.9 F 98.5 F Pulse Rate 60 65 Respiratory Rate 20 22 Blood Pressure 104/51 L 112/56 L Pulse Oximetry 94 90 L Fraction of Inspired Oxygen 32 Oxygen Delivery Method Nasal Cannula Oxygen Flow Rate 2 Narrative Exam Narrative: She has been working with occupational therapy A morbidly obese female sitting up in bed Lungs clear Heart regular rhythm Abdomen obese Extremities chronic venous stasis changes bilateral Neuro exam awake and alert oriented this morning Skin warm and dry Objective Labs Labs: Laboratory Results - last 24 hr 06/20/18 05:03 PT 23.3 H INR 2.1 H Assessment & Plan Plan: Assessment/Plan Narrative: 1. Weakness and somnolence: Possibly multifactorial. Side effect of gabapentin and Vicodin could contribute to her somnolence. Worsening Hypercapnia will definitely cause somnolence. We have decreased her gabapentin to 300 mg 3 times a day. I also cut down on the Brothers to 5/325 mg every 4 hr as needed. Use BiPAP as needed. Continue PT/OT evaluation and treatment. Seems to be improving in general 2. Bilateral lower extremity weakness: She was able to walk with a walker when she was admitted to the hospital last time. She has not been able to stand up today. I was planning to do a lumbar spine MRI to evaluate for possible spinal stenosis. Patient refused MRI scan. We will continue physical therapy. 2. Morbid obesity, BMI 47.7: Patient needs lifestyle modifications and weight loss 3. Chronic anemia: Hemoglobin is relatively stable. She is on Coumadin for anticoagulation. INR was 1.8 yesterday 4. Chronic atrial fibrillation: Ventricular rate is reasonably controlled. Continue current dose of metoprolol and diltiazem. Continue Coumadin for anticoagulation. Recheck INR in the morning 5. Morbid obesity with hypoventilation syndrome: She is not compliant with BiPAP use. 6. Type 2 diabetes: Resume metformin 7. Code status: Do not resuscitate. Code status was discussed with patient herself. 8. Disposition: Continue PT/OT. Plan for group home facility placement when stable
--- NOTE | 2018-06-20 11:47 | OT.IP.TRT ---
Current Diagnoses Somnolence (06/18/18) Occupational Therapy Treatment Note M2 OT-IP Current Condition Start: 06/18/18 12:00 Freq: Status: Active Protocol: Document 06/19/18 12:02 PJM (Rec: 06/19/18 12:21 PJM [id number]) Occupational Therapy Current Condition Current Condition Evaluation Date 06/19/18 Treatment Diagnosis decreased self care/functional mobility due to respiratory failure/hypoxia Post Operative Precautions Other Precautions Fall risk, mechanical lift needed for transfers M3 OT- IP Subjective and Pain Start: 06/18/18 12:00 Freq: Status: Active Protocol: Document 06/20/18 11:10 PJM (Rec: 06/20/18 16:14 PJM [id number]) OT- Subjective Occupational Therapy Visit Type Type Treatment Note Visit Start Time 11:10 Visit Stop Time 11:47 Total Visit Minutes 37 Occupational Therapy Visit Comments Patient Comments I just want to get back into bed and rest now. What have you been doing today? OT Pain Assessment Pain When Pain Assessed At Rest Pain Present Pain Present Denied Pain M4 OT- IP ADL's Start: 06/18/18 12:00 Freq: Status: Active Protocol: Document 06/20/18 11:10 PJM (Rec: 06/20/18 16:14 PJM [id number]) OT GQX-[id number]-Bvabcyw General Evaluation Self-Feeding Ability Independent Comments OT Self-Feeding Comments after set up sitting EOB OT ADL-Grooming General Evaluation Grooming Ability Standby Assistance Areas Needing Assistance Retrieving/Set-up of Grooming Items Combing/Brushing Hair Face Washing Comments OT Grooming Comments Pt able to wash face and comb hair while long sitting in bed with HOB elevated. Pt needs set up. Fair thoroughness with hair care. OT ADL-Oral Care General Eval Oral Care Ability Minimal Assistance Areas of Assistance Managing Dentures Retrieving/Set-Up of Items Comments Oral Care Comments Pt needs assist to rinse dentures at sink before/after brushing. OT ADL-Dressing General Eval Lower Body Dressing Ability Total Assistance OT ADL-Toileting Comments OT Toileting Comments meza still in place OT ADL-Bathing Devices Bathing Equipment Rinse Free Shampoo Cap Comments OT Bathing Comments Pt needed mod assist to place shampoo cap. Pt able to remove and towel hair dry in bed with SBA. M7 OT- IP Mobility and Balance Start: 06/18/18 12:00 Freq: Status: Active Protocol: Document 06/20/18 11:10 PJ (Rec: 06/20/18 16:14 [facility] [id number]) OT- Bed Mobility Assessment Sit to Supine Sit to Supine Assist Moderate Assistance 1 Person Assistance Scooting Scooting Up and Down in Bed Minimal Assistance 1 Person Assistance OT-Transfer Assessment Sit to and From Stand Sit to and from Stand Maximum Assistance 2 Person Assistance Comments Mobility Comments Pt able to sit and scoot along EOB with verbal cues only today. Much improved bed mobility compared to yesterday . Better effort with sit ot stand trials today, but pt still unable to come to stand with max assist of 2. Pt still needs ceiling lift fro transfers. OT- Gait Assessment Comments Gait Ability Comments Pt non ambulatory at present. OT- Balance Assessment Sitting Balance and Reactions Static Sitting Balance Ability Good Standing Balance and Reactions Static Standing Balance Ability Poor M9 OT- IP Assessment and Plan Start: 06/18/18 12:00 Freq: Status: Active Protocol: Document 06/20/18 11:10 TERESA (Rec: 06/20/18 16:14 [facility] [id number]) OT Summary Assessment and Plan Summary OT Impairments Strength Balance Functional Cognition Functional Mobility Grooming Dressing Toileting Bathing Toilet Transfers Shower Transfers Progress Towards Goals Slow Progress due to Medical Issues Slow Progress due to Cognition Assessment Summary Pt much more alert today with faster speed of processing. Pt oriented x4 and offering information about her family. Pt much improved with bed mobility and good participation in grooming tasks while long sitting in bed. Pt still unable to come to full stand or ambulate even with max assist of 2. Pt still needs ceiling lift for transfers. Pt would benefit from further rehab services in SNF setting at d/c. She would benefit from consistent therapist due to fear of falling. Goals Grooming Goal Independent Dressing Goal Minimal Assistance Toileting Goal Moderate Assistance Bathing Goal Moderate Assistance Toilet Transfer Goal Moderate Assistance Shower Transfer Goal Moderate Assistance OT-Other Goals Pt to participate in graded functional cognition tasks related to IADLS with min cues and 90% accuracy. Days to Meet Goals 9 Frequency of Treatment Frequency Of Treatment Once a Day Treatment Plan OT Treatment Plan ADL Training Functional Cognition Training Functional Mobility Patient/Family Education Discharge Planning Discharge Recommendations OT Discharge Recommendations SNF Rehab Home Equipment Needs to be determined in next rehab setting
[2018-06-20 15:56] VITALS: BP 99/60; PULSE 55; RESP 20; TEMP 36.4; O2SAT 92
[2018-06-20] MEDS: WARFARIN 5 MG TABLET PO (19:04)
[2018-06-20] MEDS: SIMVASTATIN 20 MG TABLET PO (19:04)
[2018-06-20 19:28] VITALS: PULSE 58; RESP 30; O2SAT 95
--- NOTE | 2018-06-20 19:28 | RT ---
NO WHEEZES NOTED. BRONCHODILATOR NOT INDICATED AT THIS TIME.
--- NOTE | 2018-06-20 19:54 | PC.NURSE ---
daniel note Pt up in chair until after dinner. pt said she felt like she could transfer to bed independently. Put gait belt on pt and got FWW. Pt tried twice to stand and was unsuccessful. Then she asked for the lift. Used Santy lift to get pt back to bed. Pt reports her legs are much less painful today. Denied SOB with transfer.
[2018-06-20 20:48] VITALS: BP 106/56; PULSE 59; RESP 20; TEMP 36.9; O2SAT 94
[2018-06-20] MEDS: ATORVASTATIN 10 MG TABLET PO (22:14)
[2018-06-21 00:37] VITALS: BP 111/67; PULSE 65; RESP 20; TEMP 37; O2SAT 91
[2018-06-21 07:50] VITALS: PULSE 75; RESP 20; O2SAT 96
[2018-06-21 08:00] VITALS: BP 121/73; PULSE 74; RESP 17; TEMP 36.1; O2SAT 91
[2018-06-21] MEDS: HYDROCODONE/ACET 5/325 TABLET 1 TAB PO ×2 (08:16→13:35)
[2018-06-21] MEDS: ASPIRIN EC 81 MG TABLET PO (08:17)
[2018-06-21] MEDS: OXYBUTYNIN 5 MG ER TAB 10 MG PO (08:17)
[2018-06-21] MEDS: GABAPENTIN 300 MG CAPSULE PO (08:17)
[2018-06-21] MEDS: METFORMIN HCL 500 MG TABLET PO (08:18)
[2018-06-21] MEDS: METOPROLOL ER 50 MG TABLET 100 MG PO (09:25)
[2018-06-21 09:27] VITALS: PULSE 84
[2018-06-21] MEDS: LOSARTAN 50 MG TABLET PO (09:27)
[2018-06-21] MEDS: DIGOXIN 0.125 MG TABLET PO (09:27)
[2018-06-21] MEDS: dilTIAZem CD 240 MG CAP PO (09:37)
--- NOTE | 2018-06-21 09:56 | P.DS_ITS ---
History of Present Illness Date Patient Seen: 06/21/18 Time Patient Seen: 09:49 Chief complaint: Can't walk Narrative: 67-year-old female, patient of Dr. Wilks who was brought back to the [facility] Emergency room last night for weakness. She was recently hospitalized at [facility] for the same complaint on June 12, 2018 to June 13, 2018. She had improvement of her mental status with the the use of BiPAP. Her Vicodin and gabapentin were also on hold. She had improvement of her mental status within 24 hr. She was able to ambulate with a walker without difficulty. She was subsequently discharged home. According to the ER note, her son has noticed that she was initially doing well after she was discharged from hospital. He did not visit her the day before yesterday. He found her somnolent in the chair. She was not able to get out of the chair. She was subsequently brought to the emergency room. Discharge Providers Date of admission: 06/18/18 13:18 Consults: 06/18/18 01:58 Consult to Physician Routine Comment: Consulting Provider: Serjio Fox Reason for consultation: admission Has provider been notified: Yes 06/18/18 09:11 Consult to Occupational Therapy Evaluate & Treat Comment: Physician Instructions: d/c needs Consult to Physical Therapy Evaluate & Treat Comment: Physician Instructions: Evaluate and Treat 06/18/18 13:56 Consult to Discharge Planning Routine Comment: family requesting SNF placement info Discharge provider: LYNNE Washington Summary Discharge Diagnosis: 1. Acute on chronic hypercapnia and hypoxic respiratory failure secondary to obesity hypoventilation syndrome and COPD. This may also be partially affected by the levels of gabapentin and Vicodin she was taking. 2. Bilateral lower extremity weakness 3. Morbid obesity 4. Chronic anemia, possibly related to previous gastric bypass surgery 5. Chronic atrial fibrillation 6. Type 2 diabetes Hospital Course: This summary of a 3 day hospitalization for this 67-year-old patient who presented to the emergency department from home after being admitted to the [facility] with diagnosis of generalized weakness and somnolence. She has had several visits to the emergency room recently for weakness and inability to walk. While on the [facility] she became increasing somnolent and her blood gas revealed a pCO2 of 72. She was transferred to the intensive care unit due to her increased hypercapnia and somnolence and showed marked improvement in her mental status several hours after being placed on BiPAP. Since she has been more alert she has not needed the BiPAP and is continued with nasal prong oxygen at 4-6 L per minute as needed to keep saturations greater than 90%. Adjustments in her medications including reducing her gabapentin and [place] as this may have led to an increase in somnolence. She has shown no signs of bacterial infections although her white count was 14.2. Patient needs outpatient sleep study evaluation for obstructive sleep apnea. She may also benefit from using BiPAP at night when she sleeps. She has chronic atrial fibrillation with a controlled ventricular response. She is continued on a Coumadin for anticoagulation her INR on the 20 of June was therapeutic at 2.1. She is currently back to her baseline mentation, but continues to need a 1-2 person assist with standing and short distances of ambulation. She will be transferred to [facility] for further rehabilitation prior to her anticipated discharge to home. Status at Discharge Overall status at discharge: patient is progressing back to baseline Time Spent with Patient Greater than 30 minutes Exam Vital Signs (past 8 hours): - 06/21/18 09:27 Pulse Rate 84 Fraction of Inspired Oxygen 32 Oxygen Delivery Method Nasal Cannula Oxygen Flow Rate 2 Narrative Exam Narrative: Morbidly obese middle-aged woman in no acute distress. HEENT: Head normocephalic, atraumatic. Eyes pupils equal round NECK: Supple, no JVD, CHEST: Breath sounds equal bilaterally, no wheezes rales or rhonchi. Able to speak in full sentences, no use of accessory muscles. CARDIAC: Slightly irregular rate and rhythm, grade 2/6 systolic murmur, no rubs or gallops. SKIN: Warm and dry good capillary refill. ABDOMEN: Soft, nontender. Normoactive bowel sounds all 4 quadrants. No guarding or rebound. EXTREMITIES: Normal range of motion, chronic venous stasis changes on the skin on bilateral lower leg, no clubbing or edema. NEUROLOGICAL: Alert and oriented x3; Normal muscle strength. SKIN: Warm, dry, no petechiae, no rashes or lesions. PSYC: Cooperative, good judgment, good thought process, rational behavior. Objective Labs Labs: Laboratory Results - last 24 hr 06/20/18 14:21 VBG pH Cancelled PROCEDURE: XR CHEST 1V INDICATIONS: sob TECHNIQUE: One view of the chest was acquired. COMPARISON: [facility], CR, XR CHEST 1V, 06/12/2018, 11:37. FINDINGS: Surgical changes and devices: None. Lungs and pleura: No pleural effusions or pneumothorax. There is mild pulmonary edema, decreased from the prior study. Mediastinum: Mediastinal contours appear unchanged. Heart size is enlarged. Bones and chest wall: No suspicious bony lesions. Overlying soft tissues appear unremarkable. IMPRESSION: 1. Decreased but persistent mild pulmonary edema. Dictated by: Maxime Jones M.D. on 06/17/2018 at 18:58 Approved by: Maxime Jones M.D. on 06/17/2018 at 19:00 PROCEDURE: XR PELVIS 1-2V INDICATIONS: not walking TECHNIQUE: 2 view(s) of the pelvis acquired. COMPARISON: None. FINDINGS: Image quality is severely limited by patient body habitus Bones: No fractures or dislocations. No suspicious bony lesions. Soft tissues: Visualized bowel gas pattern is normal. No suspicious soft tissue calcifications. IMPRESSION: No fracture within superior limitations related to body habitus. If symptoms and/or clinical suspicion for pathology persists, further assessment with repeat radiographs (7-10 days) or advanced imaging (e.g. CT, MRI or bone scan) may be helpful. Dictated by: Melinda Smith MD, PhD on 06/18/2018 at 8:46 Approved by: Melinda Smith MD, PhD on 06/18/2018 at 8:47 Discharge Plan Discharge Plan Patient Disposition: SNF Transfer to: [facility] Transportation: Facility vehicle Labs: CBC; PT/INR on June 24. Discharge comment: She will need continued physical therapy and occupational therapy. I certify the postop hospital fci care is medically necessary on a continuing basis for any conditions for which he/ she received care during this hospitalization.: Yes The receiving facility has agreed to accept transfer and provide medical treatment.: Yes Discharge Health Status Multidrug resistant organism: No MDRO Precautions: Burns Provider Discharge Instructions Diet: Diet as Tolerated Diet comment: Cardiac/heart healthy Activity: Up with assistance Oxygen: Oxygen via nasal cannula to keep sats greater than 90? Special Rehabilitation Services Reason for rehabilitation: Recovery r/t decondition Rehab type: Physical therapy and Occupational therapy Discharge Data Attending Provider: Carlota Hope Admit Date/Time: 06/18/18 13:18
--- NOTE | 2018-06-21 11:56 | PT.IPTN ---
Current Diagnoses Somnolence (06/18/18) Physical Therapy Treatment Note M2 PT-IP Current Condition Start: 06/18/18 11:28 Freq: NEEDED Status: Active Protocol: Document 06/19/18 10:30 MDD (Rec: 06/19/18 11:09 MDD [id number]) Physical Therapy Current Condition Current Condition Evaluation Date 06/19/18 Treatment Diagnosis impaired mobility Onset Date 06/18/18 M3 PT-IP Subjective Start: 06/18/18 11:28 Freq: NEEDED Status: Active Protocol: Document 06/21/18 11:56 MDD (Rec: 06/21/18 12:12 MDD [id number]) Subjective Physical Therapy Visit Type Type Treatment Note Visit Start Time 11:36 Visit Stop Time 11:56 Total Visit Minutes 20 Notes Performed as co-treatment with OT. 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 Motivated to stand. Therapy Pain Assessment Pain Present Pain Present Denied Pain M4 PT-IP Mobility and Gait Start: 06/18/18 11:28 Freq: NEEDED Status: Active Protocol: Document 06/19/18 10:30 MDD (Rec: 06/19/18 11:09 MDD [id number]) PT-Bed Mobility Assessment Rolling Level of Assist Moderate Assistance Sit to Supine Sit to Supine Maximum Assistance 2 Person Assistance Scooting Scooting to Edge of Bed Dependent Scooting Up and Down in Bed Dependent PT-Transfer Assessment Sit to and From Stand Sit to and from Stand Total Assistance 2 Person Assistance PT-Balance Assessment Sitting Balance and Reactions Static Sitting Balance Ability Normal Dynamic Sitting Balance Ability Good M5 PT-IP Objective Assessments Start: 06/18/18 11:28 Freq: NEEDED Status: Active Protocol: Document 06/19/18 10:30 MDD (Rec: 06/19/18 11:09 MDD [id number]) Orientation Orientation/Cognition Level of Alertness Lethargic Orientation Name Place Safety Awareness Decreased Safety Awareness Memory Description Short Term Impaired Comments Pt repeatedly questioning what objective is today. Difficulty processing commands and following through. Difficulty maintaining focus during session. Gross Range of Motion Lower Extremity ROM Assessment Within Functional Limits Strength Lower Extremity Strength Assessment Within Functional Limits M6 PT-IP Treatment Start: 06/18/18 11:28 Freq: NEEDED Status: Active Protocol: Document 06/21/18 11:56 MDD (Rec: 06/21/18 12:12 MDD [email or web address]) Physical Therapy Treatment Other Treatments Other Treatment Performed Performed 5 sit to stand attempts. Pt able to perform 4 stands with flexed posture and mod A x2. Required heavy encouragement, cueing for proper hand position/ sequencing with transfer. M7 PT-IP Assessment and Plan Start: 06/18/18 11:28 Freq: NEEDED Status: Active Protocol: Document 06/21/18 11:56 MDD (Rec: 06/21/18 12:12 MDD [email or web address]) PT Summary Assessment and Plan Potential Rehabilitation Potential Good Status of Condition at Evaluation Evolving Summary Impairments Pain Strength Bed Mobility Transfers Gait Activity Tolerance Progress Towards Goals Progressing Toward Goals Assessment Summary Cotinued improvement with functional mobility. Performed multiple attempts at sit to stands, requiring mod A x2 with the FWW. Tends to reach for front of walker rather than armrests and difficulty repositioning once she's up. Goals Bed Mobility Goal Contact Guard Assistance Transfer Goal Contact Guard Assistance Gait Goal Contact Guard Assistance Gait Distance 20 feet with FWW on level ground Days to Meet Goals 3 Frequency of Treatment Frequency Of Treatment Once a Day Treatment Plan Physical Therapy Treatment Plan Bed Mobility Training Transfer Training Gait Training Therapeutic Exercise Recommendations To Nursing Amount of Assist Needed Mechanical Lift Discharge Recommendations PT Discharge Recommendations SNF Rehab
--- NOTE | 2018-06-21 12:00 | OT.IP.TRT ---
Current Diagnoses Somnolence (06/18/18) Occupational Therapy Treatment Note M2 OT-IP Current Condition Start: 06/18/18 12:00 Freq: Status: Active Protocol: Document 06/19/18 12:02 PJM (Rec: 06/19/18 12:21 PJM [id number]) Occupational Therapy Current Condition Current Condition Evaluation Date 06/19/18 Treatment Diagnosis decreased self care/functional mobility due to respiratory failure/hypoxia Post Operative Precautions Other Precautions Fall risk, mechanical lift needed for transfers M3 OT- IP Subjective and Pain Start: 06/18/18 12:00 Freq: Status: Active Protocol: Document 06/21/18 12:00 PJM (Rec: 06/21/18 13:09 PJM [email or web address]) OT- Subjective Occupational Therapy Visit Type Type Treatment Note Visit Start Time 11:30 Visit Stop Time 11:59 Total Visit Minutes 29 Notes partial Co Tx with P.T. for standing trials; pt up in recliner when therapist arrived. Nursing used lift to get her in chair. Occupational Therapy Visit Comments Patient Comments I am going to the rehab today. I used to work there as a [employer] a long time ago. OT Pain Assessment Pain When Pain Assessed After Treatment Pain Present Pain Present Denied Pain M4 OT- IP ADL's Start: 06/18/18 12:00 Freq: Status: Active Protocol: Document 06/21/18 12:00 PJM (Rec: 06/21/18 13:09 PJM [email or web address]) OT ADL-Dressing General Eval Lower Body Dressing Ability Moderate Assistance Assistive Devices Dressing Assistive Devices Corporate Affairs Manager Comments OT Dressing Comments Pt able to get hospital brief over feet with SBA without a device but c/o low back pain during this task. Pt would benefit from training re: use of radio assembler to conserve energy and decreased back pain during task. Pt max assist to pull brief over hips while second person assists with standing M6 OT- IP Functional Cognition Start: 06/18/18 12:00 Freq: Status: Active Protocol: Document 06/21/18 12:00 PJM (Rec: 06/21/18 13:09 PJM [email or web address]) Cognitive Factors Limiting Selfcare Function Cognitive Ability Level of Alertness Alert Patient Orientation Name Month Date Year Place Situation Ability to Follow Commands Able to Follow One Step Commands Problem Solving Ability Needs Assist to Identify Solutions Executive Function Ability Unable to Filter Distractions Cognitive Comments Cognitive Assessment Comments Pt alert, remains very distractible and distracts self with conversation. M7 OT- IP Mobility and Balance Start: 06/18/18 12:00 Freq: Status: Active Protocol: Document 06/21/18 12:00 PJM (Rec: 06/21/18 13:09 [facility] [email or web address]) OT-Transfer Assessment Sit to and From Stand Sit to and from Stand Moderate Assistance 2 Person Assistance Comments Mobility Comments Pt needs max verbal encouragement but gave good effort with wit to stand x5. Pt has difficulty getting hands onto FWW in proper position after letting go of armrests on chair. Pt has difficulty achieving fully upright postion in standing. OT- Gait Assessment Comments Gait Ability Comments Pt non ambulatory at present. OT- Balance Assessment Sitting Balance and Reactions Static Sitting Balance Ability Good Dynamic Sitting Balance Ability Good Standing Balance and Reactions Static Standing Balance Ability Poor M8 OT- IP Objective Assessments Start: 06/18/18 12:00 Freq: Status: Active Protocol: Document 06/19/18 12:02 PJM (Rec: 06/19/18 12:21 PJ [email or web address]) OT Gross Range of Motion Upper Extremity Range of Motion Assessment Within Functional Limits OT Strength Upper Extremity Strength Assessment Within Functional Limits OT- Coordination Assessment Comments Coordination Comments WFL BUE for self feeding. OT-Muscle Tone Assessment Muscle Tone WNL Yes OT Sensation Assessment Comments Summary Comments Pt denies sensory deficits in BUE's M9 OT- IP Assessment and Plan Start: 06/18/18 12:00 Freq: Status: Active Protocol: Document 06/21/18 12:00 PJM (Rec: 06/21/18 13:09 PJ [email or web address]) OT Summary Assessment and Plan Summary OT Impairments Strength Balance Functional Cognition Functional Mobility Dressing Toileting Bathing Toilet Transfers Shower Transfers Progress Towards Goals Progressing Toward Goals Assessment Summary Pt has made significant progress over past 3 days with gradually improving mobility, and was able to come to partial stand x4 today. Pt much more alert than on initial evaluation with improving effort and participation in mobility tasks with encouragement. Pt remains very fearful of falling and would benefit from a consistent therapist to gain trust with mobility. Pt doing well with seated self care after set up. She would benefit from use of lower body dressing equipment to decrease low back pain and conserve energy. Pt to d/c to SNF today for further rehab services. Discharge Recommendations OT Discharge Recommendations SNF Rehab Home Equipment Needs to be determined in next rehab setting
--- NOTE | 2018-06-21 14:02 | PC.NURSE ---
report given to Beth at [facility]. pt voided per [facility] about 100ml dark urine.
--- NOTE | 2018-06-21 15:08 | CM.DPC ---
DCP: continued: case received yesterday, EMR reviewed and met with pt in the afternoon for introduction of self and role and ongoing discussion of d/c plan. Before this meeting spoke with Cynthia/OUMAR to see where the referral process stood. Cynthia noted she needed to see pt for assessment and that was planned for afternnoon. Pt confirmed that she knew she needed snf rehab before returning home. 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 Pt confirmed she knew she could not smoke at the snf, I am not smoking here and I know I have to quit so that is just fine. Discussed case with Cynthia later when she arrived to see pt. She confirmed they had needed bariatric equipment, could manage a elena/w/c transfer and after meeting pt agreed to accept her when stable for same. It was unclear at that point when she would be ready for d/c. Checked in with pt again this morning after being alerted by hospitalist LYNNE Dhaliwal that he was putting in the discharge order. PASRR was completed and faxed along with snf d/c paperwork. LIBRADO Mooney was updated. Time set for 1330 today....pt remained agreeable to plan, coordinated with d/c details with OUMAR/Beth/first lazcano on admissions phone. Pt left as per plan.
== END 2018-06-21 14:00 | DRG 189 ==
LOC: ED 01:15 → AC 01:19 → ICU 10:48
PROVIDERS: Admitting Provider Internal Medicine; Emergency Provider Emergency Medicine; Visit Provider Internal Medicine
DX: J96.22 Acute and chronic respiratory failure with hypercapnia (principal); Z68.42 Body mass index [BMI] 45.0-49.9, adult; E66.2 Morbid (severe) obesity with alveolar hypoventilation; J96.21 Acute and chronic respiratory failure with hypoxia; F17.210 Nicotine dependence, cigarettes, uncomplicated; Z99.81 Dependence on supplemental oxygen; D50.9 Iron deficiency anemia, unspecified; I48.2 Chronic atrial fibrillation; Z79.01 Long term (current) use of anticoagulants; E11.9 Type 2 diabetes mellitus without complications; Z79.84 Long term (current) use of oral hypoglycemic drugs; Z66 Do not resuscitate; F32.9 Major depressive disorder, single episode, unspecified; E78.5 Hyperlipidemia, unspecified; I10 Essential (primary) hypertension; M62.81 Muscle weakness (generalized); R26.2 Difficulty in walking, not elsewhere classified; T42.6X5A Adverse effect of other antiepileptic and sedative-hypnotic drugs, initial encounter; T40.2X5A Adverse effect of other opioids, initial encounter; J44.9 Chronic obstructive pulmonary disease, unspecified; Z98.84 Bariatric surgery status
CPT/HCPCS: 36415; 36600; 71045; 72170; 80053; 81001; 82550; 82553; 82805; 82962; 83690; 83880; 84484; 85025; 85610; 85730; 87797; 93005; 94660; 94760; 94762; 97110; 97161; 97166; 97530; 97535; 99282; 99283; 99285; G0378

== ENCOUNTER 2018-08-08 14:23 | Emergency (ER) | payer MEDICARE, MEDICAID, SELFPAY ==
[2018-06-18 02:45] VITALS: BMI 47.7
[2018-06-18 14:20] VITALS: PULSE 68; RESP 23; O2SAT 95
[2018-08-08 14:44] VITALS: BP 109/71; PULSE 67; RESP 16; TEMP 36.9; O2SAT 92; BMI 56.5
--- NOTE | 2018-08-08 17:27 | ED_ITS ---
HPI - Extremity Problem <Jody Simmons PA-C - Last Filed: 08/08/18 22:37> General Chief complaint: Extremity Problem,Nontraumatic Stated complaint: WOUND ON LEFT CALF NOT GOING AWAY Time Seen by Provider: 08/08/18 17:09 Source: patient Mode of arrival: wheelchair Limitations: no limitations History of Present Illness HPI Narrative: This 59-year-old female comes in due to concern for possible infection on her left velazquez. She always has swelling in her legs, and states that the left leg has been weeping a little bit, thin yellow fluid mainly. She states it looks a little bit more red in the last couple of days. She denies any fever. She states that the area is a bit more tender than usual. She denies any trauma. She has been taking her diuretic. She denies any chest pain , dyspnea, or any other new complaints on systems review Related Data Home Medications Medication Instructions Recorded Confirmed fluticasone [Flonase Allergy 2 spray INTRANASAL QDAY #0 09/28/17 06/18/18 Relief] hydrochlorothiazide 1 - 2 cap PO QDAYP PRN #0 09/28/17 06/18/18 albuterol sulfate 2 puff INHALATION Q4-6H PRN 04/12/18 06/18/18 aspirin 81 mg PO DAILY 04/12/18 06/18/18 metformin [Glucophage] 500 mg PO QAM 04/12/18 06/18/18 oxybutynin chloride 10 mg PO DAILY 04/12/18 06/18/18 ursodiol 300 mg PO BID 04/12/18 06/18/18 losartan 50 mg PO DAILY 06/04/18 06/18/18 digoxin [Digitek] 0.125 mg PO DAILY 06/12/18 06/18/18 diltiazem HCl [Cartia XT] 240 mg PO DAILY 06/12/18 06/18/18 simvastatin 20 mg PO QPM 06/17/18 06/18/18 warfarin 5 mg PO DAILY 06/17/18 06/18/18 Previous Rx's Medication Instructions Recorded atorvastatin [Lipitor] 10 mg PO BEDTIME #30 tab 04/15/18 metoprolol succinate 100 mg PO DAILY #30 tab 04/15/18 cephalexin [Keflex] 500 mg PO Q6H 7 Days #28 cap 08/08/18 Allergies Allergy/AdvReac Type Severity Reaction Status Date / Time captopril [CAPTOPRIL] Allergy Unknown Verified 08/08/18 14:44 nabumetone [NABUMETONE] Allergy Unknown Rash Verified 08/08/18 14:44 Review of Systems <Jody Simmons PA-C - Last Filed: 08/08/18 22:37> Review of Systems All systems reviewed & are unremarkable except as noted in HPI and below Exam <Jody Simmons PA-C - Last Filed: 08/08/18 22:37> Narrative Exam Narrative: GENERAL APPEARANCE: Patient sitting comfortably, in no distress. NECK/THYROID: Neck supple LUNGS: Clear to auscultation bilaterally. HEART: Regular rate and rhythm without murmur, normal S1, S2, no S3 or S4. EXTREMITIES: No cyanosis, 3+ pitting to the velazquez, perhaps a trace more on the left. There is some mell venous stasis discoloration bilaterally, slightly more on the left where there is a flattened vesicle draining some serous fluid, and another small skin opening inferior medial to this. Minimally warm to touch. Nontender NEUROLOGIC: Alert and oriented, normal speech, and coordination. Initial Vital Signs Initial Vital Signs: Vital Signs Temperature 98.4 F 08/08/18 14:44 Pulse Rate 67 08/08/18 14:44 Respiratory Rate 16 08/08/18 14:44 Blood Pressure 109/71 08/08/18 14:44 Pulse Oximetry 92 08/08/18 14:44 <Rekha Yin DO - Last Filed: 08/09/18 08:13> Initial Vital Signs Initial Vital Signs: Vital Signs Temperature 98.4 F 08/08/18 14:44 Pulse Rate 67 08/08/18 14:44 Respiratory Rate 16 08/08/18 14:44 Blood Pressure 109/71 08/08/18 14:44 Pulse Oximetry 92 08/08/18 14:44 Course <BRANDAN Maciel Last Filed: 08/08/18 22:37> Additional Information: Explained to patient she does have stasis dermatitis and LE edema is certainly causing the drainage, some of the redness and lesions , however she may have early cellulitis in addition to this. Will start cephalexin, but also advised she should follow up with her PCP to determine whether to adjust her furosemide dosing as well as for follow-up on the infection. Advised she needs to follow up in the next few days to have her INR checked as well on the antibiotic, and she is agreeable Vital Signs - 8 hr 08/08/18 14:44 Temperature 98.4 F Pulse Rate 67 Respiratory Rate 16 Blood Pressure 109/71 Pulse Oximetry 92 <Rekha Yin, DO - Last Filed: 08/09/18 08:13> Vital Signs - 8 hr 08/08/18 14:44 Temperature 98.4 F Pulse Rate 67 Respiratory Rate 16 Blood Pressure 109/71 Pulse Oximetry 92 Discharge Plan Departure Patient Disposition: Home Clinical Impression: Cellulitis, Venous stasis dermatitis Discharge Date/Time: 08/08/18 17:54 Interventions: ED Discharge Assessment Last Done: 08/08/18 17:53 Instructions: DI for Cellulitis -- Adult, DI for Edema Due to Venous Stasis Activity Restrictions/Additional Instructions: Your swelling in your legs is causing tension and pressure on the skin. It is a little bit worse in your left leg, and I think this is what has caused the blistering and drainage that you are noticing. Redness can be caused by the vein problems you have, however since the area is a bit more red and painful the last couple of days, we will start you on the oral antibiotic cephalexin. I have sent this to the pharmacy for you. You can continue the cream you are using as well. You should follow up with your PCP in the next few days to assess your INR (coumadin) level will need to be checked as the antibiotic may affect it. Please talk with your primary care provider about increasing your furosemide as this may help your skin and help prevent infections. Please return as we talked about if you have any acutely worsening symptoms in the interim, or new symptoms such as fever Prescriptions: New cephalexin [Keflex] 500 mg capsule 500 mg PO Q6H 7 Days Qty: 28 RF: 0 No Action fluticasone [Flonase Allergy Relief] 9.9 ML spray,suspension 2 spray Intranasal QDAY Qty: 0 RF: 0 hydrochlorothiazide 12.5 MG capsule 1 - 2 cap PO QDAYP PRN (Reason: Edema) Qty: 0 RF: 0 metformin [Glucophage] 500 mg tablet 500 mg PO QAM RF: 0 oxybutynin chloride 10 mg tablet extended release 24hr 10 mg PO DAILY RF: 0 ursodiol 300 mg capsule 300 mg PO BID RF: 0 aspirin 81 mg Tablet,Delayed Release (Dr/Ec) 81 mg PO DAILY RF: 0 albuterol sulfate 90 mcg/actuation Hfa Aerosol Inhaler 2 puff Inhalation Q4-6H PRN (Reason: Shortness Of Breath) RF: 0 atorvastatin [Lipitor] 10 mg Tablet 10 mg PO BEDTIME Qty: 30 RF: 0 metoprolol succinate 50 mg Tablet Extended Release 24 Hr 100 mg PO DAILY Qty: 30 RF: 0 diltiazem HCl [Cartia XT] 240 mg Capsule,Extended Release 24hr 240 mg PO DAILY RF: 0 digoxin [Digitek] 125 mcg Tablet 0.125 mg PO DAILY RF: 0 simvastatin 20 mg tablet 20 mg PO QPM RF: 0 warfarin 5 mg tablet 5 mg PO DAILY RF: 0 losartan 50 mg tablet 50 mg PO DAILY RF: 0 Referrals: Johnny Saini MD [Primary Care Provider] - <Rekha Yin DO - Last Filed: 08/09/18 08:13> Cosign ED Attending Cosignature Attestation: I was immediately available in the department for consultation. Documentation has been reviewed. I agree with assessment and plan.
== END 2018-08-08 17:54 | disposition home or self-care (01) ==
PROVIDERS: Emergency Provider Internal Medicine; PCP Internal Medicine
DX: L03.116 Cellulitis of left lower limb (principal); I87.2 Venous insufficiency (chronic) (peripheral)
CPT/HCPCS: 99282; 99283

== ENCOUNTER → 2018-08-14 13:51 | Outpatient (CLI) | payer MEDICARE, MEDICAID, SELFPAY ==
[2018-06-18 02:45] VITALS: BMI 47.7
[2018-06-18 14:20] VITALS: PULSE 68; RESP 23; O2SAT 95
== END ==
PROVIDERS: PCP Internal Medicine; Visit Provider Internal Medicine
DX: I87.312 Chronic venous hypertension (idiopathic) with ulcer of left lower extremity (principal); L97.822 Non-pressure chronic ulcer of other part of left lower leg with fat layer exposed; L08.9 Local infection of the skin and subcutaneous tissue, unspecified
CPT/HCPCS: 11042; 87070; 87075; 87205; 99215

== ENCOUNTER 2018-09-04 15:27 | Emergency (ER) | payer MEDICARE, MEDICAID, SELFPAY ==
[2018-06-18 02:45] VITALS: BMI 47.7
[2018-06-18 14:20] VITALS: PULSE 68; RESP 23; O2SAT 95
[2018-09-04 15:39] VITALS: BP 103/52; PULSE 87; RESP 18; TEMP 37.1; O2SAT 94
--- NOTE | 2018-09-04 16:17 | ED_ITS ---
HPI - Weakness <Jody Simmons PA-C - Last Filed: 09/04/18 22:47> General Chief complaint: Weakness Stated complaint: Increase weakness Time Seen by Provider: 09/04/18 16:15 Source: patient Mode of arrival: EMS Limitations: physical limitation History of Present Illness HPI Narrative: Alem states ?I do not want to be here?. States that she was brought in by EMS due to calling for help getting off of the toilet. She states that this has been an ongoing problem for her. She states that she used to have a riser but it was not a typical one and caused urine to spill on the floor so stopped using it. She states that once she is up, she can get around fine in the house with her walker. She states that she is able to get out of her chair though that can be difficult sometimes. She denies any new pain or injury. States she does have arthritis in her knee and hips but no new or worsening pain. She does not have any worsening leg swelling. States she has a couple of little sores on the left side that were dressed yesterday and no worse. She does not have any new fever, dyspnea, chest pain, abdominal symptoms or any other complaints. She states that it is her chronic leg weakness that is impairing her mobility for a long time, and this is not acutely changed Related Data Home Medications Medication Instructions Recorded Confirmed fluticasone [Flonase Allergy 2 spray INTRANASAL QDAY #0 09/28/17 09/04/18 Relief] hydrochlorothiazide 1 - 2 cap PO QDAYP PRN #0 09/28/17 09/04/18 albuterol sulfate 2 puff INHALATION Q4-6H PRN 04/12/18 09/04/18 aspirin 81 mg PO DAILY 04/12/18 09/04/18 metformin [Glucophage] 500 mg PO BID 04/12/18 09/04/18 oxybutynin chloride 10 mg PO DAILY 04/12/18 09/04/18 ursodiol 300 mg PO BID 04/12/18 09/04/18 losartan 50 mg PO DAILY 06/04/18 09/04/18 digoxin [Digitek] 0.125 mg PO QPM 06/12/18 09/04/18 diltiazem HCl [Cartia XT] 240 mg PO DAILY 06/12/18 09/04/18 simvastatin 20 mg PO QPM 06/17/18 09/04/18 warfarin 5 mg PO QPM 06/17/18 09/04/18 gabapentin 600 mg PO Q6H 09/04/18 09/04/18 ipratropium-albuterol [Combivent 1 puff INHALATION Q8H 09/04/18 09/04/18 Respimat] potassium chloride 10 meq PO DAILY 09/04/18 09/04/18 triamcinolone acetonide 1 applic TOPICAL BID 09/04/18 09/04/18 Previous Rx's Medication Instructions Recorded atorvastatin [Lipitor] 10 mg PO BEDTIME #30 tab 04/15/18 metoprolol succinate 100 mg PO DAILY #30 tab 04/15/18 Allergies Allergy/AdvReac Type Severity Reaction Status Date / Time captopril [CAPTOPRIL] Allergy Unknown Verified 09/04/18 15:39 nabumetone [NABUMETONE] Allergy Unknown Rash Verified 09/04/18 15:39 Review of Systems <Jody Simmons PA-C - Last Filed: 09/04/18 22:47> Review of Systems All systems reviewed & are unremarkable except as noted in HPI and below Exam <Jody Simmons PA-C - Last Filed: 09/04/18 22:47> Narrative Exam Narrative: GENERAL APPEARANCE: Patient sitting comfortably, in no distress. NECK/THYROID: Neck supple LUNGS: Clear to auscultation bilaterally. HEART: Regular rate and rhythm without murmur, normal S1, S2, no S3 or S4. EXTREMITIES: No cyanosis, 3+ pitting to the shins, perhaps a trace more on the left. Venous stasis skin discoloration and there are some superficial nummular open areas on the left velazquez with slight serous drainage, nontender NEUROLOGIC: Alert and oriented, normal speech, and coordination. Initial Vital Signs Initial Vital Signs: Vital Signs Temperature 98.8 F 09/04/18 15:39 Pulse Rate 87 09/04/18 15:39 Respiratory Rate 18 09/04/18 15:39 Blood Pressure 103/52 L 09/04/18 15:39 Pulse Oximetry 94 09/04/18 15:39 <Davy Avalos DO - Last Filed: 09/05/18 15:44> Initial Vital Signs Initial Vital Signs: Vital Signs Temperature 98.8 F 09/04/18 15:39 Pulse Rate 87 09/04/18 15:39 Respiratory Rate 18 09/04/18 15:39 Blood Pressure 103/52 L 09/04/18 15:39 Pulse Oximetry 94 09/04/18 15:39 Course <Jody Simmons PA-C - Last Filed: 09/04/18 22:47> Additional Information: Our career developer met with patient while here today to try to determine ways to help her better manage at home. Physical therapy evaluated her and did find that she had difficulty getting up from lower chairs or the commode, but was able to ambulate once up. She does not have any acute complaints or problem today or appear to need hospital admission. She is agreeable with having physical therapy evaluation in the home to determine what equipment may be more helpful for her such as a different riser on her toilet, etc We referred to home health for this, and also scheduled f/u with her PCP next week to help with home care and plans for avoiding frequent calls to EMS/ED visits. She is agreeable with plan for PT eval and expresses wanting to take whenever steps are needed to help her remain at home. Orders Ordered: ED Orders 09/04/18 16:58 Consult to Physical Therapy Evaluate & Treat Vital Signs - 8 hr 09/04/18 15:39 09/04/18 18:08 Temperature 98.8 F Pulse Rate 87 79 Respiratory Rate 18 18 Blood Pressure 103/52 L Blood Pressure [Right Arm] 97/57 L Pulse Oximetry 94 97 <Davy Avalos DO - Last Filed: 09/05/18 15:44> Orders Ordered: ED Orders 09/04/18 16:58 Consult to Physical Therapy Evaluate & Treat Vital Signs - 8 hr 09/04/18 15:39 09/04/18 18:08 Temperature 98.8 F Pulse Rate 87 79 Respiratory Rate 18 18 Blood Pressure 103/52 L Blood Pressure [Right Arm] 97/57 L Pulse Oximetry 94 97 Discharge Plan Departure Patient Disposition: Home Clinical Impression: Bilateral leg weakness Discharge Date/Time: 09/04/18 18:43 Interventions: ED Discharge Assessment Last Done: 09/04/18 18:42 Instructions: DI for Muscle Weakness Activity Restrictions/Additional Instructions: We have put in a request for physical therapy to come to your house so they can help you with what ever equipment you may need to make your mobility better. For the meantime, please use the toilet riser that you have, and put a towel around the base if needed for urine leakage. Talk with physical therapy about whether a special chair may be helpful for you as well. Please wear your oxygen as you have been advise as not wearing this could contribute to your symptoms as well. We have scheduled you an appointment to follow up with your PCP on Sunday, 09/09 , with check-in time of 1:15 p.m. please discuss your leg weak, mobility problems, and other things that may be helpful for you to be able to get around the house better so you can avoid frequent calls to the paramedics or emergency room visits Prescriptions: No Action fluticasone [Flonase Allergy Relief] 9.9 ML spray,suspension 2 spray Intranasal QDAY Qty: 0 RF: 0 hydrochlorothiazide 12.5 MG capsule 1 - 2 cap PO QDAYP PRN (Reason: Edema) Qty: 0 RF: 0 metformin [Glucophage] 500 mg tablet 500 mg PO BID RF: 0 oxybutynin chloride 10 mg tablet extended release 24hr 10 mg PO DAILY RF: 0 ursodiol 300 mg capsule 300 mg PO BID RF: 0 aspirin 81 mg Tablet,Delayed Release (Dr/Ec) 81 mg PO DAILY RF: 0 albuterol sulfate 90 mcg/actuation Hfa Aerosol Inhaler 2 puff Inhalation Q4-6H PRN (Reason: Shortness Of Breath) RF: 0 atorvastatin [Lipitor] 10 mg Tablet 10 mg PO BEDTIME Qty: 30 RF: 0 metoprolol succinate 50 mg Tablet Extended Release 24 Hr 100 mg PO DAILY Qty: 30 RF: 0 diltiazem HCl [Cartia XT] 240 mg Capsule,Extended Release 24hr 240 mg PO DAILY RF: 0 digoxin [Digitek] 125 mcg Tablet 0.125 mg PO QPM RF: 0 simvastatin 20 mg tablet 20 mg PO QPM RF: 0 warfarin 5 mg tablet 5 mg PO QPM RF: 0 losartan 50 mg tablet 50 mg PO DAILY RF: 0 potassium chloride 10 mEq Capsule, Extended Release 10 meq PO DAILY RF: 0 triamcinolone acetonide 0.1 % Ointment 1 applic TOPICAL BID RF: 0 gabapentin 300 mg Capsule 600 mg PO Q6H RF: 0 ipratropium-albuterol [Combivent Respimat] 20-100 mcg/actuation Mist 1 puff Inhalation Q8H RF: 0 Referrals: Johnny Saini MD [Primary Care Provider] - <Davy Avalos DO - Last Filed: 09/05/18 15:44> Cosign ED Attending Jonathan Attestation: I was available for consultation for this patients ED stay.
--- NOTE | 2018-09-04 16:20 | CM.SWNOTE ---
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 RN informed ED TINSMITH APPRENTICE that pt also has KAIT guidelines. Discussed with pt the ED visits and what we might be able to do to assist her and also decrease the ED visits. Pt was able to identify the issue as having a toilet seat that leaks. her plan is to go to [facility] with her caregiver and see if they can find another raised toilet seat that is more effective and does not leak. Pt also mentioned concern that she has had increased weakness in her legs and wondered if HH PT could be an option. Pt has a caregiver Kori who comes 7-8 hours some days and 3-4 hours on other days. Pt was not sure whether caregiver was through [employer] or not. KAIT plan stated pt's caregiver is through [employer]. According to pt., caregiver provides transportation to the grocery store, does laundry, prepares meals, helps her to shower and washes her hair and does dishes. Pt is able to dress her self, eat independently and uses a walker to ambulate from one room to another. She is predominantly homebound. Assessment: Pt is A/O x 3. She is pleasant, cooperative and seemed to understand that 911 calls and ED visits were not the best methods to accomplish overall goals. Plan: Provider to evaluate if there is a medical need for HH. Provider requested PT assessment while pt is in the ED. If pt meets criteria for HH, ED TINSMITH APPRENTICE will arrange for HH. Pt has been offered choice and requested [facility] as she has used them in the past Discharge Planning/Care Management ED Crisis Response Assessment Start: 09/04/18 16:14 Freq: Status: Active Protocol: Document 09/04/18 16:14 (Rec: 09/04/18 16:19 [id number]) ED Crisis Response Assessment TINSMITH APPRENTICE Assessment Type Other Reason for TINSMITH APPRENTICE Referral Pt has called 911 several times becaue of inability to get off the toilet. She also has KAIT guidelines. Referred by ED RN Presenting Problem Pt stated that she has had increased weakness over the past 1-2 months. She stated that she is able to get from the chair to the toilet using a walker, but has had a few instances when she has become stuck on the toilet. Pt believes the issue is due to the type of toilet. She mentioned that she received a raised toilet seat from [employer], but does nto like it as it leaks. Mental health diagnosis Unknown Relevant Medical History Weakness of lower extremities, morbit obesity, osteoarthritis, Resources Provided Pt inquired if it was possible to get PT. Discussed the possibility ot HH if there is medical necessity.
--- NOTE | 2018-09-04 16:45 | PT.IIE ---
Surgical History (Last Reviewed 08/08/18 @ 17:29 by Jody Simmons PA-C) History of abdominoplasty (Resolved) History of gastric bypass (Resolved) Medical History (Last Reviewed 08/08/18 @ 17:29 by Jody Simmons PA-C) Chronic anticoagulation (Acute) Chronic respiratory failure with hypoxia and hypercapnia (Acute) Iron deficiency anemia (Acute) Morbid obesity (Acute) Obesity hypoventilation syndrome (Acute) Atrial fibrillation (Chronic) Depression (Chronic) Diabetes (Chronic) Hyperlipidemia (Chronic) Hypertension (Chronic) Lumbar degenerative disc disease (Chronic) Obesity (Chronic) Osteoarthritis (Chronic) Pneumococcal meningitis (Chronic) Prolapsed bladder (Chronic) Cholelithiasis (Resolved) Fracture of left ankle (Resolved) Inguinal hernia (Resolved) Physical Therapy Inpatient Evaluation/Re-Eval M1 PT/OT-IP Prior Functional Status Start: 09/04/18 17:54 Freq: Status: Active Protocol: Document 09/04/18 16:45 AB (Rec: 09/04/18 18:20 AB [id number]) Medical Review Prior Functional Status Medical History Reviewed Yes Communication able to make needs known Mobility and Gait pt stated that she is modified independent with all mobilities and ambulation using 4WW. pt uses O2 at home but stated that it is as needed. Activities of Daily Living and IADL's stated that her caregiver assists her with shower needs Social History Household Members none Living Arrangements Apartment/Condo Number of Floors (Floors) One Floor Number of Stairs To Enter/Railing? 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 pt stated that she has a raised toilet set at home but she does not use. pt stated that urine spills out from under when she uses it. M2 PT-IP Current Condition Start: 09/04/18 17:54 Freq: Status: Active Protocol: Document 09/04/18 16:45 AB (Rec: 09/04/18 18:20 AB [id number]) Physical Therapy Current Condition Current Condition Evaluation Date 09/04/18 Treatment Diagnosis generalized weakness Onset Date 10/10/18 M3 PT-IP Subjective Start: 09/04/18 17:54 Freq: Status: Active Protocol: Document 09/04/18 16:45 AB (Rec: 09/04/18 18:20 AB [id number]) Subjective Physical Therapy Visit Type Type Initial Evaluation Visit Start Time 16:45 Visit Stop Time 17:53 Total Visit Minutes 68 Number of INSPECTOR BICYCLE Visits 0 Physical Therapy Visit Comments Patient Comments stated that it is more fear of falling preventing her from getting up from the toilet Therapy Pain Assessment Pain Present Pain Present Denied Pain M4 PT-IP Mobility and Gait Start: 09/04/18 17:54 Freq: Status: Active Protocol: Document 09/04/18 16:45 AB (Rec: 09/04/18 18:20 AB [id number]) PT-Bed Mobility Assessment Supine to Sit Supine to Sit Standby Assistance Head of Bed Elevated Sit to Supine Sit to Supine Standby Assistance Head of Bed Elevated Bed Transfer Assessment Devices Bed Transfer Assistive Devices Bed Rail Rolling Walker Technique Bed Transfer Destination Ambulatory Specific Evaluation Sit to Stand Bed Transfer Ability Standby Assistance Comments Bed Transfer Comments Assessed pt's sit to stand from low chair without arm rest to simulate sit to stand from toilet at home. pt required increase time to initiate and complete task. pt required max x 2 and max cues. Gait Assessment Gait Gait Assistance Required: Standby Assistance Distance (Feet) 40 Able to Maintain Weight Bearing Status Yes During Gait Assistive Devices Assistive Device Gait Belt 4 Wheeled Walker Orthotic/Prosthetic Devices or Brace: No Gait Deviations General Gait Pattern Decreased Stride Length Decreased Feet Clearance Flexed Trunk Factors Limiting Gait Function Factors Limiting Gait Function Decreased Activity Tolerance Decreased Strength Poor Balance Comments Gait Comments pt has forward flexed posture during standing with increase leaning on 4WW during ambulation. PT-Balance Assessment Sitting Balance and Reactions Static Sitting Balance Ability Good Dynamic Sitting Balance Ability Good Standing Balance and Reactions Static Standing Balance Ability Fair Dynamic Standing Balance Ability Fair Device Used 4WW M5 PT-IP Objective Assessments Start: 09/04/18 17:54 Freq: Status: Active Protocol: Document 09/04/18 16:45 AB (Rec: 09/04/18 18:20 AB [id number]) Orientation Orientation/Cognition Level of Alertness Alert Orientation Name Place Situation Safety Awareness Decreased Safety Awareness Gross Range of Motion Lower Extremity ROM Assessment Within Functional Limits Strength Lower Extremity Strength Assessment Bilaterally Impaired Hip 4-/5 Knee 4-/5 Sensation Assessment Sensation Gross Sensation WNL M6 PT-IP Treatment Start: 09/04/18 17:54 Freq: Status: Active Protocol: Document 09/04/18 16:45 AB (Rec: 09/04/18 18:20 AB [id number]) Physical Therapy Treatment Education Education Provided Safety Other Treatments Other Treatment Performed pt educated on O2 use at home due to decreaes on O2 sat at room air to 85% requiring cues for deep breathing. pt stated that she does not use O2 when going to the toilet and informed pt that decrease O2 sat may contribute to her ability to get up from the toilet. pt understood. M7 PT-IP Assessment and Plan Start: 09/04/18 17:54 Freq: Status: Active Protocol: Document 09/04/18 16:45 AB (Rec: 09/04/18 18:20 AB [id number]) PT Summary Assessment and Plan Potential Rehabilitation Potential Fair Status of Condition at Evaluation Stable Summary Impairments Pain ROM Strength Balance Cognition Bed Mobility Transfers Gait Activity Tolerance Assessment Summary Pt able to complete bed mobility and ambulation using 4WW SBA but has difficulty getting up from a low surface. pt transferred to the ER due to pt's inability to get up from the toilet and has to call for assistance. Pt refuses to be admitted to the hospital or to go to SNF. informed pt to use available raised toilet seat to assist with sit to stand from the toilet and to sit farther back on it to avoid spilling until a more appropriate one is obtained. also recommended to use O2 at all time especially when using the toilet. pt understood. informed pt to obtain a 3 in one commode if possible or a bariatric raised toilet seat. pt stated that her plan is to go shopping this sunday with her caregiver and [facility] informed PA, nurse and social media sr strategy manager regarding pt's mobility and recommendations. If pt goes home, pt will benefit from home health PT for strengthening and for home assessment/evaluation for appropriate equipement needs. Goals Bed Mobility Goal Independent Transfer Goal Independent Four Wheeled Walker Gait Goal Independent Four Wheel Walker Gait Distance 200 Other Goals up/down low surface SBA Days to Meet Goals 3 Frequency of Treatment Frequency Of Treatment Once a Day Treatment Plan Physical Therapy Treatment Plan Bed Mobility Training Transfer Training Gait Training Therapeutic Exercise Balance Retraining Discharge Planning Recommendations To Nursing Amount of Assist Needed 1 Person Assist Discharge Recommendations PT Discharge Recommendations Home with Assistance Home Health
--- NOTE | 2018-09-04 17:54 | PC.NURSE ---
Lenore from Social Work setting up home health care for pt
[2018-09-04 18:08] VITALS: BP 97/57; PULSE 79; RESP 18; O2SAT 97
== END 2018-09-04 18:43 | disposition home or self-care (01) ==
PROVIDERS: Emergency Provider Internal Medicine; Family Provider Internal Medicine; PCP Internal Medicine
DX: R29.898 Other symptoms and signs involving the musculoskeletal system (principal)
CPT/HCPCS: 97161; 97530; 99282

== ENCOUNTER 2018-09-25 13:52 | Emergency (ER) | payer MEDICARE, MEDICAID, SELFPAY ==
[2018-06-18 02:45] VITALS: BMI 47.7
[2018-06-18 14:20] VITALS: PULSE 68; RESP 23; O2SAT 95
[2018-09-25 13:52] VITALS: BP 102/60; PULSE 79; RESP 16; TEMP 37.3; O2SAT 86; BMI 56.5
--- NOTE | 2018-09-25 13:52 | ED.WEAKNESS ---
HPI - Weakness General Chief complaint: Weakness Stated complaint: Weakness, GLF Time Seen by Provider: 09/25/18 14:00 Source: patient Mode of arrival: ambulatory Limitations: no limitations History of Present Illness HPI Narrative: the patient arrives after becoming weak and falling at home. She reports experience weakness in her legs, this has happened before. She went down to the floor, she fell backwards and hit her occipital head. There is no LOC. She has no headache or visual changes. There is currently no head pain. She has no abrasions or lacerations. She denies neck pain. She is anticoagulated with Coumadin due to atrial fib. She denies chest pain or dyspnea. She has no abdominal pain. She denies back pain. She denies feeling weak in the legs at this time. She has not been ill. She is diabetic. She has been eating regularly. Related Data Home Medications Medication Instructions Recorded Confirmed fluticasone [Flonase Allergy 2 spray INTRANASAL QDAY #0 09/28/17 09/04/18 Relief] hydrochlorothiazide 1 - 2 cap PO QDAYP PRN #0 09/28/17 09/25/18 albuterol sulfate 2 puff INHALATION Q4-6H PRN 04/12/18 09/04/18 aspirin 81 mg PO DAILY 04/12/18 09/04/18 metformin [Glucophage] 500 mg PO BID 04/12/18 09/25/18 oxybutynin chloride 10 mg PO DAILY 04/12/18 09/25/18 ursodiol 300 mg PO BID 04/12/18 09/25/18 losartan 50 mg PO DAILY 06/04/18 09/04/18 digoxin [Digitek] 0.125 mg PO QPM 06/12/18 09/25/18 diltiazem HCl [Cartia XT] 240 mg PO DAILY 06/12/18 09/25/18 warfarin mg PO QPM 06/17/18 09/04/18 gabapentin 600 mg PO Q6H 09/04/18 09/25/18 ipratropium-albuterol [Combivent 1 puff INHALATION Q8H 09/04/18 09/04/18 Respimat] triamcinolone acetonide 1 applic TOPICAL BID 09/04/18 09/04/18 atorvastatin 80 mg PO BEDTIME 09/25/18 09/25/18 furosemide 40 mg PO BID 09/25/18 09/25/18 hydrocodone-acetaminophen 1 tab PO Q8H PRN 09/25/18 09/25/18 torsemide 1 tab PO BID 09/25/18 09/25/18 Previous Rx's Medication Instructions Recorded metoprolol succinate 100 mg PO DAILY #30 tab 04/15/18 potassium chloride 10 meq PO DAILY #30 cap 09/25/18 Allergies Allergy/AdvReac Type Severity Reaction Status Date / Time captopril [CAPTOPRIL] Allergy Unknown Verified 09/25/18 14:09 nabumetone [NABUMETONE] Allergy Unknown Rash Verified 09/25/18 14:09 Review of Systems Review of Systems All systems reviewed & are unremarkable except as noted in HPI and below Constitutional Denies chills, Denies fever(s), Denies headache(s), Denies lethargy and Reports weakness Eyes Denies change in vision, Denies eye discharge and Denies loss of vision ENT Ears, Nose, Mouth, and Throat: Denies change in voice, Denies headache(s), Denies neck pain and Denies sore throat Cardiovascular Denies chest pain, Denies irregular heart rhythm, Denies lightheadedness, Denies palpitations, Denies dyspnea, Denies dyspnea on exertion and Denies orthopnea Respiratory Denies cough, Denies dyspnea and Denies dyspnea on exertion Gastrointestinal Gastrointestinal: Denies abdominal pain, Denies change in bowel habits, Denies diarrhea, Denies nausea and Denies vomiting Musculoskeletal Denies myalgias, Denies joint swelling, Denies limited range of motion, Denies muscle weakness, Denies neck pain and Denies numbness Integumentary/Breasts Denies pruritus, Denies erythema, Denies rash and Denies wounds Neurologic Denies behavioral changes, Denies headache(s), Denies loss of vision, Denies numbness and Reports weakness Psychiatric Denies anxiety and Denies behavioral changes Endocrine Denies palpitations Hematologic/Lymphatic Denies easy bruising Allergic/Immunologic Denies urticaria [facility] Medical History Chronic anticoagulation (Acute) Chronic respiratory failure with hypoxia and hypercapnia (Acute) Iron deficiency anemia (Acute) Morbid obesity (Acute) Obesity hypoventilation syndrome (Acute) Atrial fibrillation (Chronic) Depression (Chronic) Diabetes (Chronic) Hyperlipidemia (Chronic) Hypertension (Chronic) Lumbar degenerative disc disease (Chronic) Obesity (Chronic) Osteoarthritis (Chronic) Pneumococcal meningitis (Chronic) Prolapsed bladder (Chronic) Cholelithiasis (Resolved) Fracture of left ankle (Resolved) Inguinal hernia (Resolved) Surgical History History of abdominoplasty (Resolved) History of gastric bypass (Resolved) Social History household members: none Smoking Status: Current every day smoker alcohol intake: former additional social history: lives alone Exam Initial Vital Signs Initial Vital Signs: Vital Signs Temperature 99.2 F 09/25/18 13:52 Pulse Rate 79 09/25/18 13:52 Respiratory Rate 16 09/25/18 13:52 Blood Pressure 102/60 09/25/18 13:52 Pulse Oximetry 86 L 09/25/18 13:52 Const General: cooperative and well developed Nutritional Appearance: well nourished Orientation: alert, awake, oriented x3 and not confused [facility] Head: normocephalic and atraumatic Nose: external nose normal Face and sinus: sinuses nontender, no sinus tenderness and No dry mucous membranes Mouth: oral mucosae normal and moist mucous membranes Throat: posterior oropharynx normal Eyes General: appearance normal, both eyes and all related structures Eyelids: eyelids normal Conjunctivae: conjunctivae normal Sclera: sclerae normal Pupils: PERRL EOM: EOM intact bilaterally Neck Neck: normal visual inspection, trachea midline, No lymphadenopathy, No midline deformity and No JVD Chest Chest: normal inspection of the chest Resp Effort & Inspection: normal respiratory effort and able to speak in complete sentences Auscultation: clear to auscultation bilaterally, no rales, no rhonchi and no wheezes Cardio Rate: regular rate Rhythm: regular rhythm and abnormal rhythm Heart Sounds: S1 normal, S2 normal, no click, no gallops, no murmurs and no rubs Pulses: normal peripheral pulses GI Inspection: non-distended and obesity Palpation: soft, no hepatosplenomegaly, No guarding and No tender Auscultation: normal bowel sounds Back/Spine/Pelvis Back: No CVA tenderness Cervical Spine: cervical ROM normal and No pain with cervical ROM Thoracic/Lumbar Spine: thoracic and lumbar spine normal to inspection Skin General: no rashes or lesions noted and No petechiae Neuro General: alert, awake, oriented x3, gait normal, no focal motor deficits, CN's II-XI intact bilaterally and not confused Speech: speech normal Extrem General: full ROM, no clubbing, cyanosis or edema, no pedal edema and no calf tenderness Psych Appearance: well kempt Mental Status: mental status grossly normal Attitude: cooperative Thought Content: normal Judgment: judgment good Course Course Narrative: The patient's head CT shows no acute changes. Her INR is elevated at 6.6. Her potassium is low at 2.6. There is no evidence of acute bleeding. She has received a dose of supplemental potassium, 40 mEq. She will require adjustment to her Coumadin level, and supplemental potassium. She is ambulatory. She will be discharged home, her son will pick her up this afternoon. Orders Ordered: ED Orders 09/25/18 13:58 CT head/brain wo con Stat 09/25/18 14:00 EKG-12 Lead Stat 09/25/18 14:18 Basic Metabolic Panel Stat Complete Blood Count AUTO DIFF Stat Prothrombin Time INR Stat Discontinued Medications Potassium Chloride (Potassium Chloride) 40 meq PO NOW ONE Stop: 09/25/18 15:08 Last Admin: 09/25/18 15:14 Dose: 40 meq Vital Signs - 8 hr 09/25/18 13:52 09/25/18 15:35 09/25/18 16:00 Temperature 99.2 F Pulse Rate 79 79 Respiratory Rate 16 22 Blood Pressure 102/60 Blood Pressure [Right Arm] 107/61 107/60 Pulse Oximetry 86 L 09/25/18 16:47 Temperature Pulse Rate 79 Respiratory Rate 23 Blood Pressure 107/60 Blood Pressure [Right Arm] Pulse Oximetry 95 MDM - Weakness Lab Data Result diagrams: 09/25/18 14:18 09/25/18 14:18 Lab Results 09/25/18 09/25/18 09/25/18 Range/Units 14:18 14:18 14:18 WBC 14.0 H (4.5-11.0) X10^3/uL RBC 4.42 (4.0-5.2) X10^6/uL Hgb 9.8 L (12.0-16.0) g/dL Hct 32.0 L (36-46) % MCV 72.6 L (80-100) fL MCH 22.1 L (26-34) PG MCHC 30.4 (30-36) % RDW 21.6 H (11.6-14.8) % Plt Count 437 H (150-400) X10^3/uL Neut % (Auto) 78.6 H (50-75) % Lymph % (Auto) 12.2 L (25-40) % [place] % (Auto) 7.4 (3-14) % Eos % (Auto) 0.8 L (2-4) % Baso % (Auto) 1.0 (0-2) % Neut # (Auto) 64215 H (9197-6262) /uL RBC Morphology Not Reportable Polychromasia 1+ H Hypochromasia 2+ H Anisocytosis 3+ H PT 74.2 H (10.1-12.7) SECONDS INR 6.6 H* (0.9-1.3) Sodium 130 L (137-145) mmol/L Potassium 2.6 L* (3.4-5.1) mmol/L Chloride 76 L* (98-107) mmol/L Carbon Dioxide 41 H* (22-32) mmol/L BUN 23 H (7-17) mg/dL Creatinine 0.80 (0.52-1.04) mg/dL Estimated GFR > 60.0 (>60) mL/min BUN/Creatinine Ratio 28.8 H (6-22) Glucose 163 H (80-110) mg/dL Calcium 7.8 L (8.4-10.2) mg/dL Imaging Data CT scan - head: Radiologist's impression: [place] [address] CT Scan Report Signed Patient: Alem Donahue JMR#: [id number] : 1950Acct:[id number] Age/Sex: 67 / FDate of Service: 09/25/18 Loc: ED Accession Number: [id number] Procedure: CT head/brain wo con Ordering Provider: Alexis Conti M.D. PROCEDURE: CT HEAD/BRAIN WO CON INDICATIONS: On Coumadin. Fall. Head injury. TECHNIQUE: Noncontrast 4.5 mm thick angled axial sections acquired from the foramen magnum to the vertex, with coronal and sagittal reformats. For radiation dose reduction, the following was used: automated exposure control, adjustment of mA and/or kV according to patient size. COMPARISON: [facility], CT, HEAD WITHOUT CONTRAST, 02/16/2008, 12:07. FINDINGS: Image quality: Excellent. CSF spaces: Basal cisterns are patent. No extra-axial fluid collections. Ventricles are normal in size and shape. Brain: No midline shift. No intracranial masses or hemorrhage. Ramirez-white matter interface is normal. Skull and face: Calvarium and visualized facial bones are intact, without suspicious lesions. Sinuses: There is a 1.1 cm polyp or a mucous retention cyst in the left sphenoid sinus. Visualized sinuses and mastoids are clear. IMPRESSION: 1. No acute intracranial abnormalities. 2. Cerebral volume loss and chronic microvascular ischemic changes. 3. A polyp or mucus retention cyst in the left sphenoid sinus. Dictated by: Bairon Phillips M.D. on 09/25/2018 at 14:39 Approved by: Bairon Phillips M.D. on 09/25/2018 at 14:45 ECG Data Attestation: I personally reviewed and interpreted this ECG as follows: ( AFib rate [address] or T-wave changes.) Discharge Plan Departure Patient Disposition: Home Clinical Impression: Acute hypokalemia, Elevated INR Discharge Date/Time: 09/25/18 16:48 Interventions: ED Discharge Assessment Last Done: 09/25/18 16:47 Instructions: DI for Hypokalemia Activity Restrictions/Additional Instructions: No Coumadin for the next 3 days. On the 4th day resume your Coumadin dose. Potassium 20 mEq daily. Make an appointment to see her doctor next week to recheck both her potassium levels as well as your Coumadin status. Return here as needed. Prescriptions: New potassium chloride 10 mEq capsule, extended release 10 meq PO DAILY Qty: 30 RF: 1 No Action fluticasone [Flonase Allergy Relief] 9.9 ML spray,suspension 2 spray Intranasal QDAY Qty: 0 RF: 0 hydrochlorothiazide 12.5 MG capsule 1 - 2 cap PO QDAYP PRN (Reason: Edema) Qty: 0 RF: 0 metformin [Glucophage] 500 mg tablet 500 mg PO BID RF: 0 oxybutynin chloride 10 mg tablet extended release 24hr 10 mg PO DAILY RF: 0 ursodiol 300 mg capsule 300 mg PO BID RF: 0 aspirin 81 mg Tablet,Delayed Release (Dr/Ec) 81 mg PO DAILY RF: 0 albuterol sulfate 90 mcg/actuation Hfa Aerosol Inhaler 2 puff Inhalation Q4-6H PRN (Reason: Shortness Of Breath) RF: 0 metoprolol succinate 50 mg Tablet Extended Release 24 Hr 100 mg PO DAILY Qty: 30 RF: 0 diltiazem HCl [Cartia XT] 240 mg Capsule,Extended Release 24hr 240 mg PO DAILY RF: 0 digoxin [Digitek] 125 mcg Tablet 0.125 mg PO QPM RF: 0 warfarin 5 mg tablet PO QPM RF: 0 losartan 50 mg tablet 50 mg PO DAILY RF: 0 triamcinolone acetonide 0.1 % Ointment 1 applic TOPICAL BID RF: 0 gabapentin 300 mg Capsule 600 mg PO Q6H RF: 0 ipratropium-albuterol [Combivent Respimat] 20-100 mcg/actuation Mist 1 puff Inhalation Q8H RF: 0 furosemide 40 mg Tablet 40 mg PO BID RF: 0 atorvastatin 80 mg tablet 80 mg PO BEDTIME RF: 0 torsemide 20 mg tablet 1 tab PO BID RF: 0 hydrocodone-acetaminophen 7.5-325 mg tablet 1 tab PO Q8H PRN (Reason: Pain, Moderate) RF: 0
--- NOTE | 2018-09-25 13:58 | DI.CT.S_ITS ---
PROCEDURE: CT HEAD/BRAIN WO CON INDICATIONS: On Coumadin. Fall. Head injury. TECHNIQUE: Noncontrast 4.5 mm thick angled axial sections acquired from the foramen magnum to the vertex, with coronal and sagittal reformats. For radiation dose reduction, the following was used: automated exposure control, adjustment of mA and/or kV according to patient size. COMPARISON: [facility], CT, HEAD WITHOUT CONTRAST, 02/16/2008, 12:07. FINDINGS: Image quality: Excellent. CSF spaces: Basal cisterns are patent. No extra-axial fluid collections. Ventricles are normal in size and shape. Brain: No midline shift. No intracranial masses or hemorrhage. Ramirez-white matter interface is normal. Skull and face: Calvarium and visualized facial bones are intact, without suspicious lesions. Sinuses: There is a 1.1 cm polyp or a mucous retention cyst in the left sphenoid sinus. Visualized sinuses and mastoids are clear. IMPRESSION: 1. No acute intracranial abnormalities. 2. Cerebral volume loss and chronic microvascular ischemic changes. 3. A polyp or mucus retention cyst in the left sphenoid sinus. Dictated by: Bairon Phillips M.D. on 09/25/2018 at 14:39 Approved by: Bairon Phillips M.D. on 09/25/2018 at 14:45
--- NOTE | 2018-09-25 14:08 | PC.NURSE ---
Pt with history of falls and is on coumadin. States she has no idea why she is on coumadin. Fell today and hit head and is here for head ct
[2018-09-25 14:25] LABS: Add Manual Diff / Slide Review NO; Eosinophils Percent Auto 0.8 % (2-4); Hemoglobin 9.8 g/dL (12.0-16.0); Lymphocytes Percent Auto 12.2 % (25-40); Mean Corpuscular HGB Conc 30.4 % (30-36); Mean Corpuscular Hemoglobin 22.1 PG (26-34); Mean Corpuscular Volume 72.6 fL (80-100); Monocytes Percent Auto 7.4 % (3-14); Neutrophils Absolute Auto 11000 /uL (3000-5900); Neutrophils Percent Auto 78.6 % (50-75); Platelet Count 437 X10^3/uL (150-400); Red Blood Cell Count 4.42 X10^6/uL (4.0-5.2); Red Cell Distribution Width 21.6 % (11.6-14.8)
--- NOTE | 2018-09-25 14:26 | PC.NURSE ---
Placed on oxygen for sats 86%. 2-3l NC
--- NOTE | 2018-09-25 14:33 | PC.NURSE ---
Pt removed BP cuff stating it was bothering her
[2018-09-25 14:36] LABS: BUN Creatinine Ratio 28.8 (6-22); Blood Urea Nitrogen 23 mg/dL (7-17); Calcium 7.8 mg/dL (8.4-10.2); Estimated Glomerular Filt Rate > 60.0 mL/min (>60); Glucose 163 mg/dL (80-110); HEMOLYSIS < 15 (0-50); Sodium 130 mmol/L (137-145)
[2018-09-25 14:38] LABS: Prothrombin Time 74.2 SECONDS (10.1-12.7)
[2018-09-25 14:39] LABS: INR 6.6 (0.9-1.3)
[2018-09-25 14:44] LABS: Anisocytosis 3+; Chloride 76 mmol/L (98-107); Hypochromasia 2+; Polychromasia 1+; Potassium 2.6 mmol/L (3.4-5.1)
[2018-09-25 14:45] LABS: Carbon Dioxide 41 mmol/L (22-32)
--- NOTE | 2018-09-25 15:07 | PC.NURSE ---
Pt with abnormal labs. Continues to refuse BP
[2018-09-25] MEDS: POTASSIUM CHLORIDE 20 MEQ/15 ML UDC 40 MEQ PO (15:14)
[2018-09-25 15:35] VITALS: BP 107/61; PULSE 79; RESP 22
--- NOTE | 2018-09-25 15:49 | PC.NURSE ---
s/w pts son. states pt will dc home if she can walk
[2018-09-25 16:00] VITALS: BP 107/60
[2018-09-25 16:47] VITALS: BP 107/60; PULSE 79; RESP 23; O2SAT 95
--- NOTE | 2018-09-25 16:47 | PC.NURSE ---
Pt ambulated to BR W/o difficulty
== END 2018-09-25 16:48 | disposition home or self-care (01) ==
PROVIDERS: Emergency Provider Emergency Medicine; Family Provider Internal Medicine; PCP Internal Medicine
DX: E87.6 Hypokalemia (principal); R79.1 Abnormal coagulation profile; W18.30XA Fall on same level, unspecified, initial encounter
CPT/HCPCS: 36415; 70450; 80048; 85025; 85610; 93005; 93041; 99283; 99285

== ENCOUNTER 2018-10-05 08:33 | Inpatient (IN) | payer MEDICARE, MEDICAID, SELFPAY ==
[2018-06-18 02:45] VITALS: BMI 47.7
[2018-06-18 14:20] VITALS: PULSE 68; RESP 23; O2SAT 95
[2018-10-05] VITALS (14 sets, daily range): BP systolic 73–140; BP diastolic 41–110; PULSE 56–76; RESP 16–22; TEMP 36.2–37.2; O2SAT 84–97; BMI 56.5
--- NOTE | 2018-10-05 08:43 | DI.RAD.S_ITS ---
PROCEDURE: XR CHEST 1V INDICATIONS: weakness TECHNIQUE: One view of the chest was acquired. COMPARISON: [facility], CR, XR CHEST 1V, 06/17/2018, 18:34. FINDINGS: Surgical changes and devices: None. Lungs and pleura: No pleural effusions or pneumothorax. Mildly increased pulmonary vascularity is present. Mediastinum: Mediastinal contours appear normal. Heart size is normal. Bones and chest wall: No suspicious bony lesions. Overlying soft tissues appear unremarkable. IMPRESSION: Mildly increased pulmonary vascularity suggestive of edema. Dictated by: Marizol Dumont M.D. on 10/05/2018 at 9:55 Approved by: Marizol Dumont M.D. on 10/05/2018 at 9:56
[2018-10-05 09:02] LABS: Add Manual Diff / Slide Review NO; Basophils Percent Auto 0.4 % (0-2); Eosinophils Percent Auto 0.3 % (2-4); Hematocrit 29.9 % (36-46); Hemoglobin 9.4 g/dL (12.0-16.0); Lymphocytes Percent Auto 10.2 % (25-40); Mean Corpuscular HGB Conc 31.3 % (30-36); Mean Corpuscular Hemoglobin 22.8 PG (26-34); Mean Corpuscular Volume 72.7 fL (80-100); Monocytes Percent Auto 7.4 % (3-14); Neutrophils Absolute Auto 12600 /uL (3000-5900); Neutrophils Percent Auto 81.7 % (50-75); Platelet Count 488 X10^3/uL (150-400); Red Blood Cell Count 4.11 X10^6/uL (4.0-5.2); Red Cell Distribution Width 22.3 % (11.6-14.8); White Blood Cell Count 15.4 X10^3/uL (4.5-11.0)
--- NOTE | 2018-10-05 09:02 | ED.WEAKNESS ---
HPI - Weakness General Chief complaint: Weakness Stated complaint: Decreased Mobility Time Seen by Provider: 10/05/18 08:35 Source: patient and EMS Mode of arrival: EMS Limitations: no limitations History of Present Illness HPI Narrative: 67-year-old morbidly obese daily smoker presents by EMS for evaluation of generalized weakness. On a good day the patient has difficulty ambulating but is able to make it to the bathroom, through the hallway and around her house with a walker. She lives at home alone but does have some assistance with daily chores and some family that lives locally. Her family has been pushing for her to be transferred to a intermediate facility for quite some time the patient has been quite resistant. Yesterday she was able to ambulate at her baseline but today she is unable to even get out of the chair. She denies any specific symptoms otherwise. She denies any recent illness such as runny nose, sore throat or cough. She has had no fever or chills. She denies any nausea, vomiting or diarrhea. She denies any urinary complaints such as frequency, urgency or hematuria. She has had no medication changes and states that due to her difficulty getting around she thinks she probably has been eating and drinking last for the past few days. She is repeatedly asking for a glass of ice water. The paramedics run on her frequently and she usually sends them on their way. Today she could not get out of the chair and they noticed a change and brought her in MD Complaint: generalized weakness Onset (ago): hour(s) Duration: constant Location: generalized Migration: none Severity: moderate Relieving factors: none Exacerbating factors: none Associated symptoms: denies other symptoms Related Data Home Medications Medication Instructions Recorded Confirmed fluticasone [Flonase Allergy 2 spray INTRANASAL QDAY #0 09/28/17 09/04/18 Relief] hydrochlorothiazide 1 - 2 cap PO QDAYP PRN #0 09/28/17 09/25/18 albuterol sulfate 2 puff INHALATION Q4-6H PRN 04/12/18 09/04/18 aspirin 81 mg PO DAILY 04/12/18 09/04/18 metformin [Glucophage] 500 mg PO BID 04/12/18 09/25/18 oxybutynin chloride 10 mg PO DAILY 04/12/18 09/25/18 ursodiol 300 mg PO BID 04/12/18 09/25/18 losartan 50 mg PO DAILY 06/04/18 09/04/18 digoxin [Digitek] 0.125 mg PO QPM 06/12/18 09/25/18 diltiazem HCl [Cartia XT] 240 mg PO DAILY 06/12/18 09/25/18 warfarin mg PO QPM 06/17/18 09/04/18 gabapentin 600 mg PO Q6H 09/04/18 09/25/18 ipratropium-albuterol [Combivent 1 puff INHALATION Q8H 09/04/18 09/04/18 Respimat] triamcinolone acetonide 1 applic TOPICAL BID 09/04/18 09/04/18 atorvastatin 80 mg PO BEDTIME 09/25/18 09/25/18 furosemide 40 mg PO BID 09/25/18 09/25/18 hydrocodone-acetaminophen 1 tab PO Q8H PRN 09/25/18 09/25/18 torsemide 1 tab PO BID 09/25/18 09/25/18 Previous Rx's Medication Instructions Recorded metoprolol succinate 100 mg PO DAILY #30 tab 04/15/18 potassium chloride 10 meq PO DAILY #30 cap 09/25/18 Allergies Allergy/AdvReac Type Severity Reaction Status Date / Time captopril [CAPTOPRIL] Allergy Unknown Verified 09/25/18 14:09 nabumetone [NABUMETONE] Allergy Unknown Rash Verified 09/25/18 14:09 Review of Systems Review of Systems All systems reviewed & are unremarkable except as noted in HPI and below Constitutional Denies chills, Denies fever(s), Denies lethargy and Denies weakness Eyes Denies change in vision, Denies eye discharge, Denies irritation and Denies loss of vision ENT Ears, Nose, Mouth, and Throat: Denies change in voice, Denies neck pain and Denies sore throat Cardiovascular Denies chest pain, Denies irregular heart rhythm, Denies lightheadedness, Denies palpitations, Denies dyspnea, Denies dyspnea on exertion and Denies orthopnea Respiratory Denies cough, Denies dyspnea, Denies dyspnea on exertion and Denies wheezing Gastrointestinal Gastrointestinal: Denies abdominal pain, Denies change in bowel habits, Denies diarrhea, Denies nausea and Denies vomiting Genitourinary Denies hematuria, Denies flank pain, Denies urinary incontinence and Denies urinary urgency Musculoskeletal Reports muscle weakness and Denies neck pain Integumentary/Breasts Denies pruritus, Denies erythema, Denies rash and Denies wounds Neurologic Denies confusion, Denies loss of vision and Denies weakness Psychiatric Denies anxiety, Denies confusion, Denies depression, Denies homicidal ideation and Denies suicidal ideation Endocrine Denies palpitations Hematologic/Lymphatic Denies easy bruising Allergic/Immunologic Denies wheezing PFSH Social History household members: none Smoking Status: Current every day smoker alcohol intake: former additional social history: lives alone Exam Narrative Exam Narrative: 67F, AOx3, weak, unable to provide much assistance in getting her into cart. It requires 6 staff members to move her. Initial Vital Signs Initial Vital Signs: Vital Signs Temperature 97.2 F L 10/05/18 08:39 Pulse Rate 76 10/05/18 08:39 Respiratory Rate 20 10/05/18 08:39 Blood Pressure 140/110 H 10/05/18 08:39 Pulse Oximetry 88 L 10/05/18 08:39 Const General: cooperative and well developed Nutritional Appearance: obese Orientation: alert, awake, oriented x3 and not confused HENMN Head: normocephalic and atraumatic Ears: external ears normal and TM's normal bilaterally Nose: external nose normal and No nasal discharge Face and sinus: sinuses nontender, face symmetric, no sinus tenderness and No dry mucous membranes Mouth: oral mucosae normal and moist mucous membranes Teeth and gingiva: dentition normal Throat: tonsils normal and uvula midline Eyes General: appearance normal, both eyes and all related structures Eyelids: eyelids normal Conjunctivae: conjunctivae normal Sclera: sclerae normal Pupils: PERRL EOM: EOM intact bilaterally Neck Neck: normal visual inspection, trachea midline, No lymphadenopathy, No midline deformity and No JVD Lymphatic: No lymphedema Course Orders Ordered: ED Orders 10/05/18 08:43 XR chest 1V Stat EKG-12 Lead Stat 10/05/18 08:45 Complete Blood Count AUTO DIFF Stat Comprehensive Metabolic Panel Stat Digoxin Stat Partial Thromboplastin Time Stat Procalcitonin Stat Prothrombin Time INR Stat Troponin I Stat 10/05/18 09:35 Arterial Blood Gas Stat Potassium Chloride 40 meq/ (Sodium Chloride) 520 mls @ 130 mls/hr IV NOW ONE Stop: 10/05/18 13:20 Last Admin: 10/05/18 09:32 Dose: 130 mls/hr Discontinued Medications Potassium Chloride (Potassium Chloride) 40 meq PO NOW ONE Stop: 10/05/18 09:22 Last Admin: 10/05/18 09:27 Dose: 40 meq Vital Signs - 8 hr 10/05/18 08:39 10/05/18 09:15 Temperature 97.2 F L Pulse Rate 76 69 Respiratory Rate 20 18 Blood Pressure 140/110 H Blood Pressure [Right Wrist] 85/54 L Pulse Oximetry 88 L 84 L MDM - Weakness Lab Data Result diagrams: 10/05/18 08:45 10/05/18 08:45 Lab Results 10/05/18 10/05/18 10/05/18 Range/Units 08:45 08:45 08:45 WBC 15.4 H (4.5-11.0) X10^3/uL RBC 4.11 (4.0-5.2) X10^6/uL Hgb 9.4 L (12.0-16.0) g/dL Hct 29.9 L (36-46) % MCV 72.7 L (80-100) fL MCH 22.8 L (26-34) PG MCHC 31.3 (30-36) % RDW 22.3 H (11.6-14.8) % Plt Count 488 H (150-400) X10^3/uL Neut % (Auto) 81.7 H (50-75) % Lymph % (Auto) 10.2 L (25-40) % [place] % (Auto) 7.4 (3-14) % Eos % (Auto) 0.3 L (2-4) % Baso % (Auto) 0.4 (0-2) % Neut # (Auto) 38519 H (5262-7115) /uL RBC Morphology Not Reportable Anisocytosis 3+ H PT 63.1 H D (10.1-12.7) SECONDS INR 5.6 H* (0.9-1.3) APTT 46 H D (26.4-36.2) SECONDS ABG pH (7.35-7.45) ABG pCO2 (35-45) mmHg ABG pO2 (80-105) mmHg ABG HCO3 (23-27) mmol/L ABG Total CO2 (23-27) mmol/L ABG O2 Saturation (95-100) % ABG Base Excess (-2-3) mmol/L FiO2 Sodium 125 L (137-145) mmol/L Potassium 2.6 L* (3.4-5.1) mmol/L Chloride 74 L* (98-107) mmol/L Carbon Dioxide 39 H (22-32) mmol/L BUN 25 H (7-17) mg/dL Creatinine 1.80 H (0.52-1.04) mg/dL Estimated GFR 28.0 L (>60) mL/min BUN/Creatinine Ratio 13.9 (6-22) Glucose 137 H (80-110) mg/dL Calcium 8.0 L (8.4-10.2) mg/dL Total Bilirubin 0.6 (0.2-1.3) mg/dL AST 18 (14-36) IU/L ALT 22 (9-52) IU/L Alkaline Phosphatase 76 (38-126) U/L Troponin I 0.032 (0.01-0.034) ng/mL B-Natriuretic Peptide (<100) Total Protein 6.5 (6.3-8.2) g/dL Albumin 3.4 L (3.5-5.0) g/dL Globulin 3.1 (1.7-4.1) g/dL Albumin/Globulin Ratio 1.1 (1.0-2.8) Procalcitonin (<0.5) ng/mL Digoxin (0.8-2.0) ng/mL 10/05/18 10/05/18 10/05/18 Range/Units 08:45 08:45 09:35 WBC (4.5-11.0) X10^3/uL RBC (4.0-5.2) X10^6/uL Hgb (12.0-16.0) g/dL Hct (36-46) % MCV (80-100) fL MCH (26-34) PG MCHC (30-36) % RDW (11.6-14.8) % Plt Count (150-400) X10^3/uL Neut % (Auto) (50-75) % Lymph % (Auto) (25-40) % [place] % (Auto) (3-14) % Eos % (Auto) (2-4) % Baso % (Auto) (0-2) % Neut # (Auto) (3762-1274) /uL RBC Morphology Anisocytosis PT (10.1-12.7) SECONDS INR (0.9-1.3) APTT (26.4-36.2) SECONDS ABG pH 7.51 H (7.35-7.45) ABG pCO2 50.2 H (35-45) mmHg ABG pO2 54 L (80-105) mmHg ABG HCO3 40 H (23-27) mmol/L ABG Total CO2 41 H (23-27) mmol/L ABG O2 Saturation 90 L (95-100) % ABG Base Excess 17.0 H (-2-3) mmol/L FiO2 21 Sodium (137-145) mmol/L Potassium (3.4-5.1) mmol/L Chloride (98-107) mmol/L Carbon Dioxide (22-32) mmol/L BUN (7-17) mg/dL Creatinine (0.52-1.04) mg/dL Estimated GFR (>60) mL/min BUN/Creatinine Ratio (6-22) Glucose (80-110) mg/dL Calcium (8.4-10.2) mg/dL Total Bilirubin (0.2-1.3) mg/dL AST (14-36) IU/L ALT (9-52) IU/L Alkaline Phosphatase (38-126) U/L Troponin I (0.01-0.034) ng/mL B-Natriuretic Peptide (<100) Total Protein (6.3-8.2) g/dL Albumin (3.5-5.0) g/dL Globulin (1.7-4.1) g/dL Albumin/Globulin Ratio (1.0-2.8) Procalcitonin 0.15 (<0.5) ng/mL Digoxin 0.9 (0.8-2.0) ng/mL 10/05/18 Range/Units Unknown WBC (4.5-11.0) X10^3/uL RBC (4.0-5.2) X10^6/uL Hgb (12.0-16.0) g/dL Hct (36-46) % MCV (80-100) fL MCH (26-34) PG MCHC (30-36) % RDW (11.6-14.8) % Plt Count (150-400) X10^3/uL Neut % (Auto) (50-75) % Lymph % (Auto) (25-40) % [place] % (Auto) (3-14) % Eos % (Auto) (2-4) % Baso % (Auto) (0-2) % Neut # (Auto) (7734-1224) /uL RBC Morphology Anisocytosis PT (10.1-12.7) SECONDS INR (0.9-1.3) APTT (26.4-36.2) SECONDS ABG pH (7.35-7.45) ABG pCO2 (35-45) mmHg ABG pO2 (80-105) mmHg ABG HCO3 (23-27) mmol/L ABG Total CO2 (23-27) mmol/L ABG O2 Saturation (95-100) % ABG Base Excess (-2-3) mmol/L FiO2 Sodium (137-145) mmol/L Potassium (3.4-5.1) mmol/L Chloride (98-107) mmol/L Carbon Dioxide (22-32) mmol/L BUN (7-17) mg/dL Creatinine (0.52-1.04) mg/dL Estimated GFR (>60) mL/min BUN/Creatinine Ratio (6-22) Glucose (80-110) mg/dL Calcium (8.4-10.2) mg/dL Total Bilirubin (0.2-1.3) mg/dL AST (14-36) IU/L ALT (9-52) IU/L Alkaline Phosphatase (38-126) U/L Troponin I (0.01-0.034) ng/mL B-Natriuretic Peptide 149.0 H (<100) Total Protein (6.3-8.2) g/dL Albumin (3.5-5.0) g/dL Globulin (1.7-4.1) g/dL Albumin/Globulin Ratio (1.0-2.8) Procalcitonin (<0.5) ng/mL Digoxin (0.8-2.0) ng/mL ECG Data Attestation: I personally reviewed and interpreted this ECG as follows: Interpretation: Atrial fibrillation in the mid 70s without signs of ischemia or ectopy. No ST elevations or depressions MDM Narrative Medical decision making narrative: 67-year-old female, chronically ill and morbidly obese presents with change in activity tolerance. Even yesterday the patient could ambulate with a walker but today states her legs are weak and she is too fatigued to get out of a chair. She denies any significant shortness of breath and states she has not had increasing oxygen requirements home but on arrival has pulse ox of 82-83% which improves with oxygen by nasal cannula. ABG notes impressive hypoxia on room air. She does have some crackles in the bases of her lungs and in her lower extremities which combined with chest x-ray findings are consistent with an exacerbation of CHF. Her blood pressure has been difficult to accurately read and has red anywhere from the mid 70s to 140 systolic. She is not dizzy nor lightheaded, she has no clinical orthostasis and skin is warm pink and dry. The lower blood pressures were obtained with a blood pressure cuff at her wrist and seem unlikely to be accurate Discharge Plan Departure Patient Disposition: Admitted As Inpatient Clinical Impression: Weakness, Acute hypokalemia, Acute and chronic respiratory failure with hypoxia
[2018-10-05 09:06] LABS: Prothrombin Time 63.1 SECONDS (10.1-12.7)
[2018-10-05 09:09] LABS: PTT Partial Thromboplastin Tim 46 SECONDS (26.4-36.2)
--- NOTE | 2018-10-05 09:09 | PC.NURSE ---
Placed on oxygen for sats 86-89%. 2l nc
[2018-10-05 09:11] LABS: INR 5.6 (0.9-1.3)
[2018-10-05 09:12] LABS: Sodium 125 mmol/L (137-145)
[2018-10-05 09:13] LABS: Alanine Aminotransferase 22 IU/L (9-52); Albumin 3.4 g/dL (3.5-5.0); Albumin Globulin Ratio 1.1 (1.0-2.8); Alkaline Phosphatase 76 U/L (38-126); Aspartate Aminotransferase 18 IU/L (14-36); BUN Creatinine Ratio 13.9 (6-22); Bilirubin Total 0.6 mg/dL (0.2-1.3); Blood Urea Nitrogen 25 mg/dL (7-17); Carbon Dioxide 39 mmol/L (22-32); Globulin 3.1 g/dL (1.7-4.1); Glucose 137 mg/dL (80-110); HEMOLYSIS < 15 (0-50); Total Protein 6.5 g/dL (6.3-8.2)
--- NOTE | 2018-10-05 09:16 | PC.NURSE ---
Nurse took O2 off at 0914 for room air reading.
[2018-10-05 09:18] LABS: Chloride 74 mmol/L (98-107); Potassium 2.6 mmol/L (3.4-5.1)
[2018-10-05 09:19] LABS: Digoxin 0.9 ng/mL (0.8-2.0)
[2018-10-05 09:23] LABS: Anisocytosis 3+
[2018-10-05 09:24] LABS: Troponin I 0.032 ng/mL (0.01-0.034)
[2018-10-05 09:27] LABS: Procalcitonin 0.15 ng/mL (<0.5)
[2018-10-05] MEDS: POTASSIUM CHLORIDE 20 MEQ/15 ML UDC 40 MEQ PO (09:27)
[2018-10-05] MEDS: POTASSIUM CHLORIDE 40 MEQ in SODIUM CHLORIDE 0.9% 500 ML 130 ML IV (09:32)
[2018-10-05 09:47] LABS: pH ABG 7.51 (7.35-7.45)
[2018-10-05 09:48] LABS: PCO2 ABG 50.2 mmHg (35-45); PO2 ABG 54 mmHg (80-105)
[2018-10-05 09:49] LABS: Fractionated Inspired Oxygen 21; HCO3 ABG 40 mmol/L (23-27); Oxygen Saturation ABG 90 % (95-100); TCO2 ABG 41 mmol/L (23-27)
--- NOTE | 2018-10-05 10:34 | PC.NURSE ---
Pt has trouble following instructions. She cannot be still for accurate BPs. She appears confused and it is unclear if it is due to low oxygenation or metabolic source. She is found to have a soiled brief on and states to staff no its clean, dont take it off. Until pt is shown stool on brief. She will ask daughter to bring her own briefs as you dont have the right size. Removes spo2 frequently but remains on oxygen for sats 84-88% on RA and po2 of 54 on abg. Will ask daughter when she arrives if this is pts usual mentation or if she is truly confused.
--- NOTE | 2018-10-05 11:06 | PC.NURSE ---
Attempted to reconcile meds. Pt states I dont know what some are, I dont do my meds.
--- NOTE | 2018-10-05 11:24 | PC.NURSE ---
Pt daughter here now. States has noticed her mothers decline in cognitive ability. Requests, if possible, for her mother to have cognitive testing while here to test for dementia. Explained need to have metabolic problems fixed prior as may be the cause of confusion.
--- NOTE | 2018-10-05 11:37 | PC.NURSE ---
Pt will itch nose and remove NC from nares. I have fixed this several times.
--- NOTE | 2018-10-05 12:52 | P.HP_ITS ---
History of Present Illness Date Patient Seen: 10/05/18 Time Patient Seen: 12:46 Chief complaint: Decreased Mobility Narrative: 67-year-old female with history chronic hypercapnia and obesity presents with increased weakness and inability to ambulate. Noted to have worsening hypoxemia during evaluation in the ER with a PO2 in the 50s. She has had some increased cough recently nonproductive. She denies any fevers denies chest pain Patient History Medical History Chronic anticoagulation (Acute) Chronic respiratory failure with hypoxia and hypercapnia (Acute) Iron deficiency anemia (Acute) Morbid obesity (Acute) Obesity hypoventilation syndrome (Acute) Atrial fibrillation (Chronic) Depression (Chronic) Diabetes (Chronic) Hyperlipidemia (Chronic) Hypertension (Chronic) Lumbar degenerative disc disease (Chronic) Obesity (Chronic) Osteoarthritis (Chronic) Pneumococcal meningitis (Chronic) Prolapsed bladder (Chronic) Cholelithiasis (Resolved) Fracture of left ankle (Resolved) Inguinal hernia (Resolved) Surgical History History of abdominoplasty (Resolved) History of gastric bypass (Resolved) Family & Social History Family History: Reviewed 10/05/18 by Mikal Rodriguez MD Social History: household members none Prior Living Arrangements Apartment/Condo Safety & Behavioral: Feels Safe in Current Yes Environment Been Physically Hurt or No Threatened By a Person Suicidal Ideation Description None Tobacco & Substance use: Tobacco type cigarettes Smoking Status Current every day smoker alcohol intake former alcohol intake frequency 0-2 drinks per day Substance Use Type does not use Meds Home Medications Medication Instructions Recorded Confirmed Type fluticasone [Flonase Allergy 2 spray INTRANASAL QDAY #0 09/28/17 09/04/18 History Relief] hydrochlorothiazide 1 - 2 cap PO QDAYP PRN #0 09/28/17 10/05/18 History albuterol sulfate 2 puff INHALATION Q4-6H PRN 04/12/18 09/04/18 History aspirin 81 mg PO DAILY 04/12/18 10/05/18 History metformin [Glucophage] 500 mg PO BID 04/12/18 10/05/18 History oxybutynin chloride 10 mg PO DAILY 04/12/18 10/05/18 History ursodiol 300 mg PO BID 04/12/18 10/05/18 History metoprolol succinate 100 mg PO DAILY #30 tab 04/15/18 09/25/18 Rx losartan 50 mg PO DAILY 06/04/18 10/05/18 History digoxin [Digitek] 0.125 mg PO QPM 06/12/18 10/05/18 History diltiazem HCl [Cartia XT] 240 mg PO DAILY 06/12/18 10/05/18 History warfarin 7.5 mg PO QPM 06/17/18 10/05/18 History gabapentin 600 mg PO Q6H 09/04/18 10/05/18 History ipratropium-albuterol [Combivent 1 puff INHALATION Q8H 09/04/18 09/04/18 History Respimat] triamcinolone acetonide 1 applic TOPICAL BID 09/04/18 09/04/18 History atorvastatin 80 mg PO BEDTIME 09/25/18 10/05/18 History furosemide 40 mg PO BID 09/25/18 10/05/18 History hydrocodone-acetaminophen 1 tab PO Q8H PRN 09/25/18 09/25/18 History potassium chloride 10 meq PO DAILY #30 cap 09/25/18 Rx torsemide 1 tab PO BID 09/25/18 10/05/18 History Allergies Allergy/AdvReac Type Severity Reaction Status Date / Time captopril [CAPTOPRIL] Allergy Unknown Verified 09/25/18 14:09 nabumetone [NABUMETONE] Allergy Unknown Rash Verified 09/25/18 14:09 Review of Systems Constitutional Constitutional: Reports fatigue and Reports weakness Eyes Eyes: Reports system reviewed; no additional complaints, except as documented ENT Ears, Nose, Mouth, and Throat: Yes system reviewed; no additional complaints, except as documented Cardiovascular Cardiovascular: Denies chest pain, Denies leg swelling and Denies shortness of breath Respiratory Respiratory: Reports cough and Denies dyspnea Gastrointestinal Gastrointestinal: Denies abdominal pain Genitourinary Genitourinary: Reports system reviewed and no additional complaints, except as documented Musculoskeletal Musculoskeletal: Reports system reviewed; no additional complaints, except as documented Integumentary/Breasts Skin/Breast: Reports system reviewed and no additional complaints, except as documented Neurologic Neurologic: Reports system reviewed and no additional complaints, except as documented and Reports weakness Psychiatric Psychiatric: Reports system reviewed and no additional complaints, except as documented Endocrine Endocrine: Reports system reviewed and no additional complaints, except as documented and Reports fatigue Hematologic/Lymphatic Hematologic/Lymphatic: Reports system reviewed and no additional complaints, except as documented Exam Vital Signs (past 8 hours): - 10/05/18 08:39 10/05/18 09:15 10/05/18 10:35 Temperature 97.2 F L Pulse Rate 76 69 64 Respiratory Rate 20 18 18 Blood Pressure 140/110 H Blood Pressure [Right Wrist] 85/54 L 92/43 L Pulse Oximetry 88 L 84 L 93 10/05/18 11:24 10/05/18 11:30 10/05/18 11:56 Temperature Pulse Rate 68 59 L 63 Respiratory Rate 20 17 20 Blood Pressure 93/55 L Blood Pressure [Right Wrist] 73/56 L 93/55 L Pulse Oximetry 95 97 10/05/18 12:15 Temperature 98.9 F Pulse Rate 61 Respiratory Rate 20 Blood Pressure 80/55 L Blood Pressure [Right Wrist] Pulse Oximetry 93 Oxygen Delivery Method Nasal Cannula Oxygen Flow Rate 2 Narrative Exam Narrative: Morbidly obese female awake alert conversant oropharynx clear oral mucosa dry Neck is supple no bruits no JVD Lungs some scattered rhonchi Heart irregular rhythm Abdomen obese nontender no masses Lower extremities trace edema Neuro exam awake alert oriented no focal motor sensory deficits Objective Labs Result Diagrams: 10/05/18 08:45 10/05/18 08:45 Labs: Laboratory Results - last 24 hr 10/05/18 10/05/18 10/05/18 08:45 08:45 08:45 WBC 15.4 H RBC 4.11 Hgb 9.4 L Hct 29.9 L MCV 72.7 L MCH 22.8 L MCHC 31.3 RDW 22.3 H Plt Count 488 H Neut % (Auto) 81.7 H Lymph % (Auto) 10.2 L [place] % (Auto) 7.4 Eos % (Auto) 0.3 L Baso % (Auto) 0.4 Neut # (Auto) 12346 H RBC Morphology Not Reportable Anisocytosis 3+ H PT 63.1 H D INR 5.6 H* APTT 46 H D ABG pH ABG pCO2 ABG pO2 ABG HCO3 ABG Total CO2 ABG O2 Saturation ABG Base Excess FiO2 Sodium 125 L Potassium 2.6 L* Chloride 74 L* Carbon Dioxide 39 H BUN 25 H Creatinine 1.80 H Estimated GFR 28.0 L BUN/Creatinine Ratio 13.9 Glucose 137 H Calcium 8.0 L Total Bilirubin 0.6 AST 18 ALT 22 Alkaline Phosphatase 76 Troponin I 0.032 B-Natriuretic Peptide Total Protein 6.5 Albumin 3.4 L Globulin 3.1 Albumin/Globulin Ratio 1.1 Procalcitonin Digoxin 10/05/18 10/05/18 10/05/18 08:45 08:45 09:35 WBC RBC Hgb Hct MCV MCH MCHC RDW Plt Count Neut % (Auto) Lymph % (Auto) [place] % (Auto) Eos % (Auto) Baso % (Auto) Neut # (Auto) RBC Morphology Anisocytosis PT INR APTT ABG pH 7.51 H ABG pCO2 50.2 H ABG pO2 54 L ABG HCO3 40 H ABG Total CO2 41 H ABG O2 Saturation 90 L ABG Base Excess 17.0 H FiO2 21 Sodium Potassium Chloride Carbon Dioxide BUN Creatinine Estimated GFR BUN/Creatinine Ratio Glucose Calcium Total Bilirubin AST ALT Alkaline Phosphatase Troponin I B-Natriuretic Peptide Total Protein Albumin Globulin Albumin/Globulin Ratio Procalcitonin 0.15 Digoxin 0.9 10/05/18 Unknown WBC RBC Hgb Hct MCV MCH MCHC RDW Plt Count Neut % (Auto) Lymph % (Auto) [place] % (Auto) Eos % (Auto) Baso % (Auto) Neut # (Auto) RBC Morphology Anisocytosis PT INR APTT ABG pH ABG pCO2 ABG pO2 ABG HCO3 ABG Total CO2 ABG O2 Saturation ABG Base Excess FiO2 Sodium Potassium Chloride Carbon Dioxide BUN Creatinine Estimated GFR BUN/Creatinine Ratio Glucose Calcium Total Bilirubin AST ALT Alkaline Phosphatase Troponin I B-Natriuretic Peptide 149.0 H Total Protein Albumin Globulin Albumin/Globulin Ratio Procalcitonin Digoxin Assessment & Plan Plan: Assessment/Plan Narrative: One. Generalized weakness probably multifactorial she appears to be volume depleted she actually is somewhat hypotensive with a systolic pressure in the 70s and 80s elevated serum serum creatinine and BUN probably over diuresed there is some confusion about what her diuretic should be on her list she has both furosemide torsemide and hydrochlorothiazide all listed she is unsure what she is actually taking but probably over diuresed 2. Hyponatremia hypokalemia probably related to over-diuresis 3. Acute kidney injury with creatinine up to 1.8 baseline of 0.6 so 3 times her baseline. Probably from over diuresis plan to place her on IV fluids 4. Hypoxemia acute hypoxic respiratory failure she does use oxygen on occasion at home but she says that just the other day her some O2 sat was in the 90s on room air and now her PO2 is down to 50. Probably has some acute bronchitis may be some COPD exacerbation. Plan to place her on antibiotic and supplemental oxygen targeting her O2 sat to be about 90% 5. Over anticoagulation plan to hold the Coumadin for now 6. Hypotension again from over-diuresis plan to hold some of her antihypertensive medications for now 7. Code status she desires to be DNR. Quality VTE Deep Vein Thrombosis/Pulmonary Embolism Present on Admission: No
[2018-10-05] MEDS: MOXIFLOXACIN HCL 400 MG TABLET PO (13:04)
[2018-10-05] MEDS: GABAPENTIN 300 MG CAPSULE 600 MG PO (13:05)
[2018-10-05] MEDS: SODIUM CHLORIDE 0.9% 1,000 ML 100 ML IV ×2 (13:08→23:50)
[2018-10-05 14:41] LABS: HEMOLYSIS < 15 (0-50); Iron 27 ug/dL (37-170); Magnesium 1.9 mg/dL (1.6-2.3)
--- NOTE | 2018-10-05 14:44 | PC.NURSE ---
Addendum entered by Sabrina Pond R.N. 10/05/18 14:48: ammend note - bp 80/55, p 66, in and pt was completing a K rider 40meq started in ER, ivf ns at 100ml/hr, dry, flaky skin lle w/scabbed area x 2 lateral left leg that pt states has been treated in wound clinic in past, chr back pain, discussed pain medication, pt declines now and prefers to take later this evening. Original Note: ADMISSION - arrived via [place] from ER, constant talking, states before getting transferred, I'm hungry, I'm thirsty, freq cursing when moving, attempted with ER minister to get off [place] and tsf to bed w/fww, pt lower extremity weakness and was not safe to tsf, ret to [place] and using slider, tsf to bed, pt moving in bed, sitting upright, moving arms and legs, 2l 93% w/expir wheeze, uses home 02 prn, not sure liters, has a pill box in bag and per chalo in ER, pt took her meds while down there, not sure what she did take, here removed medications from bag and placed valuables, including cigarettes in safe, pt continues restless and cursing, calmer after given po and taiwo lunch, bp 8-0
[2018-10-05 15:19] LABS: Percent Iron Saturation 7 % (15-50); Total Iron Binding Capacity 369 ug/dL (265-497); Transferrin 318 mg/dL (206-381)
--- NOTE | 2018-10-05 16:04 | PT.IPTN ---
Physical Therapy Treatment Note M3 PT-IP Subjective Start: 10/05/18 16:03 Freq: NEEDED Status: Active Protocol: Document 10/05/18 16:04 [facility] (Rec: 10/05/18 16:04 [facility] [id number]) Subjective Physical Therapy Visit Type Type Patient Refusal Physical Therapy Visit Comments Patient Comments pt states that she is not able to get up right now, she is having too much weakness and cannot do it today. Will attempt tomorrow as scheduled permits.
[2018-10-05] MEDS: HYDROCODONE/ACET 10/325 TABLET 1 TAB PO (17:28)
[2018-10-05] MEDS: GABAPENTIN 600 MG TABLET PO ×2 (17:29→23:49)
--- NOTE | 2018-10-05 17:46 | PC.NURSE ---
Addendum entered by Brionna Sen R.N. 10/05/18 23:31: late entry- provider paged with results of UA- orders rec'd will continue to monitor. Original Note: Addendum entered by Broinna Sen R.N. 10/05/18 21:57: pt voided a bit in the bed, strong odor. unable to void at bsc. three assist to get pt up. pt bends at waist constantly, but was able to take a few steps as pt stated she could not pee in a bedpan. no void. bladder scan showed 650- md council on aging director paged, orders rec'd. meza placed. will continue to monitor. Pt states she feels better but that she didn't know she felt bad until after meza was placed and she then in fact felt better. Original Note: 1500- assumed care of pt from outgoing shift. Pt awake, but drowsy. pt mumbles, arouses when spoken to but quickly dozes back to sleep. Pt does not really know home medications. Pt uses call light. Pt unable to get up. has not yet voided. compliant with nursing assessments. pt ate dinner without complications. Pt prefers to not have her oxygen on and frequently takes it off, but de-sats to high 80s-90. pt put back on o2. Pt given pain pill per MAR as complained of pain. spoke with son, Jed, updated on plan of care and hospitalization. Pt denies further needs, questions answered. will continue to monitor. bed alarm on, side rails upx4 per request. belongings and call light within reach.
[2018-10-05] MEDS: ATORVASTATIN 20 MG TABLET 80 MG PO (21:54)
[2018-10-05] MEDS: METFORMIN HCL 500 MG TABLET PO (21:54)
[2018-10-05 21:55] LABS: RBC Urine None Seen (0-5/HPF); WBC Urine None Seen (0-5/HPF)
[2018-10-05 22:01] LABS: Appearance Urine UA CLEAR; Bilirubin Urine UA NEGATIVE (NEGATIVE); Color Urine UA YELLOW; Glucose Urine UA NEGATIVE (Normal); Ketones Urine UA NEGATIVE (NEGATIVE); Leukocyte Esterase Urine UA NEGATIVE (NEGATIVE); Nitrite Urine UA NEGATIVE (Negative); Occult Blood Urine UA NEGATIVE (Negative); Protein Urine UA TRACE (Negative); pH Urine UA 7.5 (4.5-8.0)
[2018-10-05 22:14] LABS: Squamous Epithelial Cell Urine 0-1 /HPF
[2018-10-05 22:15] LABS: Bacteria Urine Many (>30); Culture Indicated Urine Specimen Cultured
[2018-10-06] VITALS (14 sets, daily range): BP systolic 93–115; BP diastolic 48–69; PULSE 50–69; RESP 14–22; TEMP 36.4–37; O2SAT 84–97
[2018-10-06] MEDS: HYDROCODONE/ACET 10/325 TABLET 1 TAB PO ×2 (03:19→16:14)
[2018-10-06 05:45] LABS: Add Manual Diff / Slide Review NO; Basophils Percent Auto 0.8 % (0-2); Eosinophils Percent Auto 2.2 % (2-4); Hemoglobin 8.8 g/dL (12.0-16.0); Lymphocytes Percent Auto 17.1 % (25-40); Mean Corpuscular HGB Conc 30.4 % (30-36); Mean Corpuscular Hemoglobin 22.3 PG (26-34); Mean Corpuscular Volume 73.2 fL (80-100); Monocytes Percent Auto 7.3 % (3-14); Neutrophils Absolute Auto 8800 /uL (3000-5900); Neutrophils Percent Auto 72.6 % (50-75); Platelet Count 417 X10^3/uL (150-400); Red Blood Cell Count 3.96 X10^6/uL (4.0-5.2); Red Cell Distribution Width 22.3 % (11.6-14.8); White Blood Cell Count 12.1 X10^3/uL (4.5-11.0)
[2018-10-06 05:49] LABS: Prothrombin Time 81.9 SECONDS (10.1-12.7)
[2018-10-06 05:51] LABS: Alanine Aminotransferase 26 IU/L (9-52); Alkaline Phosphatase 70 U/L (38-126); Aspartate Aminotransferase 17 IU/L (14-36); BUN Creatinine Ratio 21.5 (6-22); Bilirubin Total 0.4 mg/dL (0.2-1.3); Blood Urea Nitrogen 28 mg/dL (7-17); Calcium 7.4 mg/dL (8.4-10.2); Carbon Dioxide 37 mmol/L (22-32); Chloride 77 mmol/L (98-107); Estimated Glomerular Filt Rate 40.7 mL/min (>60); Globulin 2.9 g/dL (1.7-4.1); Glucose 124 mg/dL (80-110); HEMOLYSIS < 15 (0-50); Sodium 123 mmol/L (137-145); Total Protein 5.9 g/dL (6.3-8.2)
[2018-10-06 06:04] LABS: INR 7.2 (0.9-1.3)
[2018-10-06] MEDS: GABAPENTIN 600 MG TABLET PO ×2 (06:18→12:33)
[2018-10-06] MEDS: METFORMIN HCL 500 MG TABLET PO ×2 (08:18→20:13)
[2018-10-06] MEDS: ASPIRIN EC 81 MG TABLET PO (08:18)
[2018-10-06] MEDS: METOPROLOL ER 50 MG TABLET 100 MG PO (08:19)
[2018-10-06] MEDS: MOXIFLOXACIN HCL 400 MG TABLET PO (08:19)
[2018-10-06] MEDS: ACETAMINOPHEN 325 MG TABLET 650 MG PO (08:20)
[2018-10-06] MEDS: TRIMETH/SULFA 160/800 (DS) TABLET 1 TAB PO (08:24)
--- NOTE | 2018-10-06 09:00 | PC.NURSE ---
Addendum entered by Sabrina Pond R.N. 10/06/18 14:14: RESP/MS - when pt had 02 off, sat decr to 84-85%, contin w/some expir upper wheeze, dim lower, 2l 92-93%, after lunch [facility] phys therapy in and mobilized pt up from bed w/fww, pt leans over the fww with her forearms, able to take steps to chair. Original Note: AM NOTE - awake, oriented, states my back is killing me, sitting upright in bed, taiwo diet, 02 sat 93% 2l, upper airway occas expir wheeze, occass congeted non productive cough, 2+ pedal edema, hr 58, given 650 po tylenol for discomfort.
[2018-10-06] MEDS: SODIUM CHLORIDE 0.9% 1,000 ML 100 ML IV (09:59)
--- NOTE | 2018-10-06 10:39 | CM.DANOTE ---
Patient is a 67 year old female who was admitted on 10/05/18 for Decreased Mobility. Pt has [facility] and [facility] for insurance and her PCP is Dr. Saini. EMR was reviewed. Per RN, took 3 PA to get pt up to the bathroom. PT ordered and pending. SW met bedside with pt and explained role and pt was quite sleepy and kept dozing off. Pt confirms that she still lives alone in an apartment in [place] and still has her [facility] CG that assists her but she does not know how many hours she was approved for a month but states that it has increased from her previous 36 hours a month. CH[facility]I CM is still Jessa Jackson and SW faxed pt's H&P to her [facility]. Pt confirms that she has a hx of using [facility] a year ago and recent hx of [facility] this year at the end of May. Pt states her preference is to return home but SW discussed her need to be able to safely ambulate without needing 3 PA and pt was agreeable. Pt states she will call her Dtr and son along with her [facility] CG to determine if they can provide transport at d/c if pt is safe for return home although she may needs Medicaid transport set up if her contacts are not available. Plan: SW to follow for PT eval and recommendation to determine if pt will be safe for return home at d/c vs SNF. EMANUEL Guerin Discharge Planning/Care Management CM Discharge Assessment Start: 10/06/18 10:34 Freq: Status: Active Protocol: Document 10/06/18 10:34 BF (Rec: 10/06/18 10:39 BF [id number]) Discharge Planning Assessment Assigned Icer Hand EMANUEL Carbajal Advance Directives? No Advance Directives on File No History Provided By Patient Family Member Medical Record Has Patient been admitted in last 30 No days? Prior Living Arrangements Apartment/Condo Comment Lives alone,has [facility] support weekly. Household Members none Type of transporation used prior to Relies on Others admit Independent with ADL's No Is patient alert and oriented? Yes Needs Assistance With Meal Prep Managing Medications Home Chores / Shopping Caregiver for Another No Community Services used prior to Oxygen Therapy admission: Comment Patient has caregiver through [facility]. Has [facility] caregiver Name of Agency [facility] Contact Phone [phone] Clinicals Faxed Yes Hours / Month 39 Patient/Family [facility] Home with Home Health Comment Patient active smoker. Currently has nicotine patch. Discharge Plan Home with Home Health Transportation Arrangement Patient will try to get ahold of her kids and [facility] CG, but may need Medicaid transport at d/c. Additional Comment waiting for PT eval and recommendations to determine if pt is safe for d/c home. Whiteboard Updated in Patient Room with Yes name and ext. # of Icer Hand Review Status In Process Please Provide Date Initial DC 10/06/18 Assessment Was Performed Next Review Type Continued Stay Review
--- NOTE | 2018-10-06 13:45 | PT.IIE ---
Current Diagnoses Acute and chronic respiratory failure with hypoxia (10/05/18) Surgical History (Last Reviewed 10/05/18 @ 12:47 by Mikal Rodriguez MD) History of abdominoplasty (Resolved) History of gastric bypass (Resolved) Medical History (Last Reviewed 10/05/18 @ 12:47 by Mikal Rodriguez MD) Chronic anticoagulation (Acute) Chronic respiratory failure with hypoxia and hypercapnia (Acute) Iron deficiency anemia (Acute) Morbid obesity (Acute) Obesity hypoventilation syndrome (Acute) Atrial fibrillation (Chronic) Depression (Chronic) Diabetes (Chronic) Hyperlipidemia (Chronic) Hypertension (Chronic) Lumbar degenerative disc disease (Chronic) Obesity (Chronic) Osteoarthritis (Chronic) Pneumococcal meningitis (Chronic) Prolapsed bladder (Chronic) Cholelithiasis (Resolved) Fracture of left ankle (Resolved) Inguinal hernia (Resolved) Physical Therapy Inpatient Evaluation/Re-Eval M1 PT/OT-IP Prior Functional Status Start: 10/05/18 16:03 Freq: NEEDED Status: Active Protocol: Document 10/06/18 13:45 RCC (Rec: 10/06/18 17:08 RCC [id number]) Medical Review Prior Functional Status Medical History Reviewed Yes Mobility and Gait short gait distances with 4WW, forward leaning posture (uses forearms to push walker and rest @ times). Activities of Daily Living and IADL's she has some CG assistance at home, she is not sure how many hrs/month Social History Household Members none Living Arrangements Apartment/Condo Number of Floors (Floors) One Floor Number of Stairs To Enter/Railing? elevator Home Equipment Four Wheel Walker M2 PT-IP Current Condition Start: 10/05/18 16:03 Freq: NEEDED Status: Active Protocol: Document 10/06/18 13:45 RCC (Rec: 10/06/18 17:08 RCC [email or web address]) Physical Therapy Current Condition Current Condition Evaluation Date 10/06/18 Treatment Diagnosis decreased mobility M3 PT-IP Subjective Start: 10/05/18 16:03 Freq: NEEDED Status: Active Protocol: Document 10/06/18 13:45 RCC (Rec: 10/06/18 17:08 RCC [email or web address]) Subjective Physical Therapy Visit Type Type Initial Evaluation Visit Start Time 13:29 Visit Stop Time 13:45 Total Visit Minutes 16 Number of PBX INSPECTOR Visits 0 Physical Therapy Visit Comments Patient Comments pt is willing to get up to the chair. M4 PT-IP Mobility and Gait Start: 10/05/18 16:03 Freq: NEEDED Status: Active Protocol: Document 10/06/18 13:45 RCC (Rec: 10/06/18 17:08 RCC [email or web address]) PT-Bed Mobility Assessment Supine to Sit Supine to Sit Standby Assistance Bedrails Scooting Scooting to Edge of Bed Standby Assistance PT-Transfer Assessment Sit to and From Stand Sit to and from Stand Contact Guard Assistance 1 Person Assistance Equipment Transfer Assistive Device Gait Belt Front Wheeled Walker Transfers Transfer Destination Chair Transfer Technique Stand Step Pivot Transfer Ability Level of Assist Contact Guard Assistance Comments Mobility Comments forward leaning posture Gait Assessment Gait Gait Assistance Required: Contact Guard Assist Distance (Feet) 5 Assistive Devices Assistive Device Gait Belt Front Wheeled Walker Gait Deviations General Gait Pattern Antalgic Decreased Stride Length Decreased Feet Clearance Flexed Trunk Wide Based Gait Factors Limiting Gait Function Factors Limiting Gait Function Decreased Activity Tolerance Decreased Strength Poor Balance Poor Safety Awareness PT-Balance Assessment Sitting Balance and Reactions Static Sitting Balance Ability Fair Dynamic Sitting Balance Ability Fair Standing Balance and Reactions Static Standing Balance Ability Poor Dynamic Standing Balance Ability Poor Device Used bariatric FWW M5 PT-IP Objective Assessments Start: 10/05/18 16:03 Freq: NEEDED Status: Active Protocol: Document 10/06/18 13:45 RCC (Rec: 10/06/18 17:08 RCC [email or web address]) Orientation Orientation/Cognition Level of Alertness Alert Coordination Assessment Gross Coordination Gross Coordination WNL M7 PT-IP Assessment and Plan Start: 10/05/18 16:03 Freq: NEEDED Status: Active Protocol: Document 10/06/18 13:45 RCC (Rec: 10/06/18 17:08 RCC [email or web address]) PT Summary Assessment and Plan Potential Rehabilitation Potential Good Summary Impairments Strength Balance Bed Mobility Transfers Gait Activity Tolerance Assessment Summary Pt able to tolerate short gait in room and transfer today, but evident fatigue and reported inability to ambulate further this session. Pt does not want to consider SNF at this time. She is below her functional baseline of short household distance gait. She uses home O2. At this time, it is recommended that pt continue to participate with physical therapy during this episode of care to progress her gait tolerance and ability , as well as mobilize to avoid pressure sores and further deconditioning. Expect pt to be able to return home when medically stable if she meets established PT goals. Goals Bed Mobility Goal Independent Transfer Goal Independent Gait Goal Standby Assistance Gait Distance 50 Days to Meet Goals 3 Frequency of Treatment Frequency Of Treatment Once a Day Treatment Plan Physical Therapy Treatment Plan Bed Mobility Training Transfer Training Gait Training Therapeutic Exercise Balance Retraining Discharge Planning Recommendations To Nursing Amount of Assist Needed 2 Person Assist Discharge Recommendations PT Discharge Recommendations Home with Assistance Home Health SNF Rehab
[2018-10-06] MEDS: CEFTRIAXONE 1 GM/50 ML FROZ.PIGGY IV (14:28)
[2018-10-06] MEDS: PHYTONADIONE (VIT K1) 5 MG TABLET PO (14:28)
[2018-10-06] MEDS: POTASSIUM CHLORIDE 40 MEQ in SODIUM CHLORIDE 0.9% 500 ML 130 ML IV (15:09)
--- NOTE | 2018-10-06 16:04 | P.PN_ITS ---
Subjective Date Patient Seen: 10/06/18 Interval history: Patient noted with improved mobility versus admission yesterday. Nursing has noticed she is quite sedated much of the day. She had been hypotensive on admission and blood pressures are improving with IV fluid. Exam Vital Signs (past 8 hours): - 10/06/18 08:30 10/06/18 10:00 10/06/18 11:50 Temperature 98.6 F Pulse Rate 69 Respiratory Rate 18 Blood Pressure 93/48 L Pulse Oximetry 93 84 L 94 10/06/18 15:34 Temperature 97.5 F L Pulse Rate 50 L Respiratory Rate 18 Blood Pressure 102/61 Pulse Oximetry 97 Oxygen Delivery Method Room Air Oxygen Flow Rate 2 Narrative Exam Narrative: GENERAL: Patient dozes off during conversation, denies shortness of breath HEENT: Head normocephalic, atraumatic. Mucous membranes moist. CHEST: Slight rhonchi on the right CARDIAC: Irregularly irregular rhythm EXTREMITIES: no edema. NEUROLOGICAL: Lethargic, nonfocal SKIN: Warm, dry, no petechiae, no rash Objective Labs Result Diagrams: 10/06/18 05:10 10/06/18 05:10 Labs: Laboratory Results - last 24 hr 10/05/18 10/06/18 10/06/18 21:40 05:10 05:10 WBC 12.1 H RBC 3.96 L Hgb 8.8 L Hct 29.0 L MCV 73.2 L MCH 22.3 L MCHC 30.4 RDW 22.3 H Plt Count 417 H Neut % (Auto) 72.6 Lymph % (Auto) 17.1 L [place] % (Auto) 7.3 Eos % (Auto) 2.2 Baso % (Auto) 0.8 Neut # (Auto) 8800 H PT 81.9 H D INR 7.2 H* Sodium Potassium Chloride Carbon Dioxide BUN Creatinine Estimated GFR BUN/Creatinine Ratio Glucose Calcium Total Bilirubin AST ALT Alkaline Phosphatase Total Protein Albumin Globulin Albumin/Globulin Ratio Urine Color Yellow Urine Appearance Clear Urine pH 7.5 Ur Specific Fisher 1.010 Urine Protein Trace H Urine Glucose (UA) Negative Urine Ketones Negative Urine Occult Blood Negative Urine Nitrate Negative Urine Bilirubin Negative Urine Urobilinogen 1.0 Ur Leukocyte Esterase Negative Urine RBC None seen Urine WBC None seen Ur Squamous Epith Cells 0-1 /hpf Urine Bacteria Many (>30) H Ur Culture Indicated? Specimen cultured Micro UA Comment Not Reportable 10/06/18 05:10 WBC RBC Hgb Hct MCV MCH MCHC RDW Plt Count Neut % (Auto) Lymph % (Auto) [place] % (Auto) Eos % (Auto) Baso % (Auto) Neut # (Auto) PT INR Sodium 123 L Potassium 3.0 L Chloride 77 L Carbon Dioxide 37 H BUN 28 H Creatinine 1.30 H Estimated GFR 40.7 L BUN/Creatinine Ratio 21.5 Glucose 124 H Calcium 7.4 L Total Bilirubin 0.4 AST 17 ALT 26 Alkaline Phosphatase 70 Total Protein 5.9 L Albumin 3.0 L Globulin 2.9 Albumin/Globulin Ratio 1.0 Urine Color Urine Appearance Urine pH Ur Specific Fisher Urine Protein Urine Glucose (UA) Urine Ketones Urine Occult Blood Urine Nitrate Urine Bilirubin Urine Urobilinogen Ur Leukocyte Esterase Urine RBC Urine WBC Ur Squamous Epith Cells Urine Bacteria Ur Culture Indicated? Micro UA Comment Assessment & Plan Plan: Assessment/Plan Narrative: 1. Generalized weakness due to diuretic volume depletion and electrolyte imbalance: This is improving with IV fluids and electrolyte replacement. Patient is on confusing diuretic regimen, both on furosemide and torsemide on her home med list, as well as hydrochlorothiazide. This was also noted on prior admission but somehow not addressed or patient ended up back on prior regimen. Plan: Continue IV fluids, correct electrolyte deficiencies. I have permanently discontinued the furosemide and hydrochlorothiazide on her med reconciliation in preparation for eventual discharge so hopefully there will be no confusion in regards to her diuretics. Her BNP is only 150 so there is little risk of pulmonary edema with cutting back diuretics. Continue physical therapy assessments. 2. Hyponatremia, hypokalemia: Continue normal saline hydration, K rider addition 40 mEq. Repeat BMP in a.m.. 3. Acute kidney injury, pre renal: Improving. Continue hydration. Baseline creatinine 0.6 versus admit creatinine 1.8. Holding diuretics, losartan. 4. Possible acute bronchitis with acute hypoxic on chronic hypercapnic and hypoxic respiratory failure: Patient with arterial blood PO2 of 54, has some wheezing on exam, pCO2 50 versus baseline 70-80, arterial pH 7.51 consistent with metabolic alkalosis on chronic hypercapnic respiratory failure. She has O2 which she uses rarely at home. Chest x-ray read as increased pulmonary vascularity but is clearly not pulmonary edema and more likely vascular crowding with her poor ventilation. WBC mildly elevated on admit and improving. Continue Rocephin for bronchitis. Note she is a current smoker. 5. Severe obesity: BMI 56, contributing to chronic respiratory failure. 6. Chronic atrial fibrillation, warfarin over anticoagulation: INR 6.6 on admit and remaining elevated. Continue holding warfarin. Vitamin K 5 mg p.o. x1 given on 10/06/2018. 7. Type 2 diabetes: Back on metformin. Glucose remaining below 100-150 range. 8. Somnolence: Likely multifactorial, may need recheck ABG if worse. Decreased her gabapentin from 600 mg down to 300 mg every 6 hr in case contributing to her sedation. 9. Chronic microcytic anemia: Has been stable but is slightly worsened with IV hydration. She is not acutely bleeding. No need for transfusion. She should have outpatient endoscopy workup if this has not been done. Disposition: Continue inpatient management. Possible discharge home in next 1- 2 days with ongoing improvement. Quality VTE Deep Vein Thrombosis/Pulmonary Embolism Present on Admission: No
--- NOTE | 2018-10-06 16:07 | PC.NURSE ---
Addendum entered by Brionna Sen R.N. 10/06/18 22:58: repositioned pt in bed. Pt has been taking oxygen off. o2 saturation 89% on room air. put back on 2 L. encouraged to deep breathe. given snack. pt oxygen back up to 94 on 3 L. bed alarm on. pt moves self in bed frequently. states her bottom hurts. encouraged to lay flatter or roll to the sides and pt refuses. educated pt on reasoning behind offloading and moving self and pt states, well I know but I don't really care. I can't sleep that way. will continue to monitor. belongings and call light within reach. Original Note: Assumed care of pt from outgoing shift at 1500 this day. Pt awake. sitting in chair. encouraged to deep breathe. pt asking for channel list, given one, only after she took multiple deep breaths. Pt states she forgets to take deep breaths. refused to get back in chair. Pt has meza. tolerating. pt has fluids infusing. also tolerating. Pt uses call light. belongings and call light within reach.
[2018-10-06] MEDS: ALBUTEROL/IPRATROPIUM MDI 1 PUFF INH (19:51)
[2018-10-06] MEDS: ATORVASTATIN 20 MG TABLET 80 MG PO (20:13)
[2018-10-06] MEDS: GABAPENTIN 600 MG TABLET 300 MG PO (20:14)
[2018-10-07] VITALS (12 sets, daily range): BP systolic 91–117; BP diastolic 49–65; PULSE 56–70; RESP 16–70; TEMP 36.6–36.9; O2SAT 82–97
[2018-10-07] MEDS: SODIUM CHLORIDE 0.9% 1,000 ML 100 ML IV (00:06)
--- NOTE | 2018-10-07 00:15 | PC.NURSE ---
doesn't want to wear oxygen cannula when sleeping. Tried to convince her multiple times.
[2018-10-07] MEDS: GABAPENTIN 600 MG TABLET 300 MG PO ×2 (02:10→08:56)
[2018-10-07] MEDS: HYDROCODONE/ACET 10/325 TABLET 1 TAB PO ×2 (04:41→21:36)
--- NOTE | 2018-10-07 04:46 | PC.NURSE ---
Pt is alert and oriented X3 but uncooperative and impulsive. Patient constantly tries to get out of the bed to the chair. Pt picked up her meza bag and threw it across the side table. She rolled herself to the foot of the bed and hung over the side for 10min refusing to get back into the bed or flop over. Pt is acting in an unsafe way and is uncooperative with safety instructions and staff. While trying to throw herself over the bed she would fall asleep for a few seconds, then after prompting her to answer she would finally respond. Patient is reluctant to wear the nasal cannula as well. While sleeping, she is at 80-84% on room air, while on 2L NC she's at 96%. Expiratory wheeze and coarse breath sounds heard.
[2018-10-07 06:21] LABS: Add Manual Diff / Slide Review SLIDE REVIEW; Basophils Percent Auto 0.4 % (0-2); Eosinophils Percent Auto 1.9 % (2-4); Hematocrit 29.2 % (36-46); Lymphocytes Percent Auto 10.2 % (25-40); Mean Corpuscular HGB Conc 30.8 % (30-36); Mean Corpuscular Hemoglobin 22.6 PG (26-34); Mean Corpuscular Volume 73.4 fL (80-100); Monocytes Percent Auto 7.2 % (3-14); Neutrophils Absolute Auto 7800 /uL (3000-5900); Neutrophils Percent Auto 80.3 % (50-75); Platelet Count 411 X10^3/uL (150-400); Red Blood Cell Count 3.98 X10^6/uL (4.0-5.2); Red Cell Distribution Width 22.3 % (11.6-14.8); White Blood Cell Count 9.8 X10^3/uL (4.5-11.0)
[2018-10-07 06:34] LABS: BUN Creatinine Ratio 28.8 (6-22); Blood Urea Nitrogen 23 mg/dL (7-17); Calcium 7.9 mg/dL (8.4-10.2); Carbon Dioxide 38 mmol/L (22-32); Chloride 85 mmol/L (98-107); Estimated Glomerular Filt Rate > 60.0 mL/min (>60); Glucose 131 mg/dL (80-110); HEMOLYSIS < 15 (0-50); INR 3.5 (0.9-1.3); Potassium 3.5 mmol/L (3.4-5.1); Prothrombin Time 38.6 SECONDS (10.1-12.7); Sodium 129 mmol/L (137-145)
[2018-10-07 07:46] LABS: Anisocytosis 2+; Hypochromasia 1+; Poikilocytosis 1+; Polychromasia 1+; Stomatocytes 2+
--- NOTE | 2018-10-07 08:26 | PC.NURSE ---
Awoke Patient to get vitals. Patient cooperative in assisting me to reposition Pt to sit up higher in bed. Patient now eating while watching TV. She seemed agreeable to getting out of bed later to relieve some of her positioning pain.
--- NOTE | 2018-10-07 08:36 | PC.NURSE ---
Patients O2 alarm was going off, went to check on her and found she had taken off her finger monitor. Applied a new sticking monitor.
[2018-10-07] MEDS: METFORMIN HCL 500 MG TABLET PO ×2 (08:57→21:33)
[2018-10-07] MEDS: METOPROLOL ER 50 MG TABLET 100 MG PO (08:57)
[2018-10-07] MEDS: ASPIRIN EC 81 MG TABLET PO (08:57)
--- NOTE | 2018-10-07 10:39 | PC.NURSE ---
Patient asked to get up to chair. With the help of the walker, another SLEEVE SETTER LOCKSTITCH and myself were able to assist patient up to chair and prop feet up. Patient stumbled once while walking but we were able to keep her up and safely get patient into the chair. Still refuses oral hygiene. States it feels much better to be up and is resting comfortably.
--- NOTE | 2018-10-07 11:07 | PT.IPTN ---
Current Diagnoses Acute and chronic respiratory failure with hypoxia (10/05/18) Physical Therapy Treatment Note M2 PT-IP Current Condition Start: 10/05/18 16:03 Freq: NEEDED Status: Active Protocol: Document 10/06/18 13:45 RCC (Rec: 10/06/18 17:08 RCC [email or web address]) Physical Therapy Current Condition Current Condition Evaluation Date 10/06/18 Treatment Diagnosis decreased mobility M3 PT-IP Subjective Start: 10/05/18 16:03 Freq: NEEDED Status: Active Protocol: Document 10/07/18 11:00 RS (Rec: 10/07/18 11:07 RS [id number]) Subjective Physical Therapy Visit Type Type Treatment Note Visit Start Time 10:35 Visit Stop Time 11:00 Total Visit Minutes 25 Physical Therapy Visit Comments Patient Comments Pt initially saying she's waiting for someone to come take her home, but by end of session pt admits that she won 't be safe to go home and is agreeable to go to SNF. Patient Goals get some rest M4 PT-IP Mobility and Gait Start: 10/05/18 16:03 Freq: NEEDED Status: Active Protocol: Document 10/07/18 11:00 RS (Rec: 10/07/18 11:07 RS [id number]) PT-Bed Mobility Assessment Supine to Sit Supine to Sit Moderate Assistance 2 Person Assistance Scooting Scooting to Edge of Bed Minimal Assistance PT-Transfer Assessment Sit to and From Stand Sit to and from Stand Minimal Assistance 2 Person Assistance Equipment Transfer Assistive Device Gait Belt Front Wheeled Walker Transfers Transfer Destination Chair Transfer Technique Stand Step Pivot Transfer Ability Level of Assist Minimal Assistance 2 Person Assistance Comments Mobility Comments forward leaning posture, impulsive and quick movements. Even with supplemental oxygen pt was quite SOB after transfer Gait Assessment Comments Gait Comments not attempted this session PT-Balance Assessment Sitting Balance and Reactions Static Sitting Balance Ability Fair Dynamic Sitting Balance Ability Fair Standing Balance and Reactions Static Standing Balance Ability Poor Dynamic Standing Balance Ability Poor Device Used bariatric FWW M5 PT-IP Objective Assessments Start: 10/05/18 16:03 Freq: NEEDED Status: Active Protocol: Document 10/06/18 13:45 RCC (Rec: 10/06/18 17:08 RCC [email or web address]) Orientation Orientation/Cognition Level of Alertness Alert Coordination Assessment Gross Coordination Gross Coordination WNL M7 PT-IP Assessment and Plan Start: 10/05/18 16:03 Freq: NEEDED Status: Active Protocol: Document 10/07/18 11:00 RS (Rec: 10/07/18 11:07 RS [id number]) PT Summary Assessment and Plan Potential Rehabilitation Potential Fair Summary Impairments Strength Balance Bed Mobility Transfers Gait Activity Tolerance Progress Towards Goals Slow Progress due to Activity Tolerance Assessment Summary Pt needing significantly more assist today than yesterday, which puts her even further below her reported functional baseline. Patient also SOB with bed>chair transfer and almost immediately fell asleep once in the chair, difficult to keep alert/involved after this. Pt is not safe to discharge home at this time and will benefit from daily low-intensity therapies. New recommendation is for patient to transfer to SNF once medically ready in order to improve strength, activity tolerance, and optimize independence with functional mobility and self care activities. Pt expresses understanding and is in agreement with this plan. Goals Bed Mobility Goal Minimal Assistance Transfer Goal Minimal Assistance Gait Goal Minimal Assistance Gait Distance 30 Days to Meet Goals 2 Frequency of Treatment Frequency Of Treatment Once a Day Treatment Plan Physical Therapy Treatment Plan Bed Mobility Training Transfer Training Gait Training Therapeutic Exercise Balance Retraining Discharge Planning Recommendations To Nursing Amount of Assist Needed 2 Person Assist Discharge Recommendations PT Discharge Recommendations SNF Rehab
[2018-10-07] MEDS: CEFTRIAXONE 1 GM/50 ML FROZ.PIGGY IV (13:07)
--- NOTE | 2018-10-07 14:17 | CM.DPC ---
Referral faxed to [facility] per [facility]
--- NOTE | 2018-10-07 14:18 | CM.DPC ---
Addendum entered by EMANUEL Guerin 10/07/18 14:32: ADD: SW updated [facility] that pt likely will d/c to SNF rehab prior to home and they will follow with pt at SNF to determine if pt will need HH when d/c from SNF. BF Original Note: DCP SNF Planning Per MD, pt may be stable for d/c home today pending further PT. Per MD, pt states she is open with HH PT already. PATRICIA met with pt and explained role and pt confirms that she is open with [facility] and would be agreeable with [facility] if she is safe for home. SW called [facility] and confirmed that pt is open to PT services with them and would need Res[facility] orders if pt discharges home. Per PT and RN, pt does not seem safe for home discharge and recommending SNF and pt states she is agreeable. SW met bedside with pt and explained role again and pt confirms that now she feels weaker and agrees that SNF rehab prior to safe return home alone with [facility] CG. SW provided her with the SNF Choice List and pt states her preference is [facility] since she was just there this summer in June. KARLA Johnson kindly faxed new referral to [facility] to review and PATRICIA called [facility] admissions Elysia with new referral and requested review. PATRICIA left msg for MD regarding need for SNF and likely d/c tomorrow if medically stable. PASRR completed. Plan: SW to follow for [facility] review towards possible placement for SNF rehab tomorrow if medically stable. EMANUEL Guerin
--- NOTE | 2018-10-07 14:58 | PM.PN.1 ---
Subjective Date Patient Seen: 10/07/18 Interval history: Overall she feels better. However, she has much difficulty transferring from her bed independently. She is a max 2 person assist. She is unable to return home and will need a SNF for strenghtening at discharge. Exam Vital Signs (past 8 hours): - 10/07/18 07:55 10/07/18 08:26 10/07/18 08:37 Temperature 98.4 F Pulse Rate 69 Respiratory Rate 18 Blood Pressure 110/65 Pulse Oximetry 94 95 94 10/07/18 12:19 Temperature 98.3 F Pulse Rate 56 L Respiratory Rate 20 Blood Pressure 91/49 L Pulse Oximetry 91 Oxygen Delivery Method Room Air Oxygen Flow Rate 2 Narrative Exam Narrative: Pleasant female in no acute distress Lungs: Decreased but clear to auscultation CV: RRR nl Sl S2 ABd: Soft/ non tender/ non distended Ext: no edema Objective Labs Result Diagrams: 10/07/18 06:05 10/07/18 06:05 Labs: Laboratory Results - last 24 hr 10/07/18 10/07/18 10/07/18 06:05 06:05 06:05 WBC 9.8 RBC 3.98 L Hgb 9.0 L Hct 29.2 L MCV 73.4 L MCH 22.6 L MCHC 30.8 RDW 22.3 H Plt Count 411 H Neut % (Auto) 80.3 H Lymph % (Auto) 10.2 L [place] % (Auto) 7.2 Eos % (Auto) 1.9 L Baso % (Auto) 0.4 Neut # (Auto) 7800 H RBC Morphology See below Polychromasia 1+ H Hypochromasia 1+ H Poikilocytosis 1+ H Anisocytosis 2+ H Stomatocytes 2+ H PT 38.6 H D INR 3.5 H Sodium 129 L Potassium 3.5 Chloride 85 L Carbon Dioxide 38 H BUN 23 H Creatinine 0.80 Estimated GFR > 60.0 BUN/Creatinine Ratio 28.8 H Glucose 131 H Calcium 7.9 L Assessment & Plan (1) Hyponatremia syndrome: Problem details: continue fluid restriction Current visit: Yes Status: Acute (2) Hyponatremia: Problem details: As above Current visit: Yes Status: Acute (3) Acute kidney injury: Problem details: Improving Current visit: Yes Status: Acute (4) Acute bronchitis: Current visit: Yes Status: Acute (5) Chronic atrial fibrillation: Problem details: Will follow, rate controlled on current medications Current visit: Yes Status: Acute (6) Morbid obesity: Current visit: Yes Status: Acute (7) Type 2 diabetes mellitus: Current visit: Yes Status: Acute Plan: Assessment/Plan Narrative: To SNF at discharge Quality VTE Deep Vein Thrombosis/Pulmonary Embolism Present on Admission: No
[2018-10-07] MEDS: GABAPENTIN 300 MG CAPSULE PO ×2 (15:31→21:33)
[2018-10-07] MEDS: ALBUTEROL/IPRATROPIUM MDI 1 PUFF INH (19:31)
[2018-10-07] MEDS: ATORVASTATIN 20 MG TABLET 80 MG PO (21:33)
[2018-10-08 00:45] VITALS: BP 112/62; PULSE 66; RESP 17; TEMP 36.5; O2SAT 92
[2018-10-08] MEDS: GABAPENTIN 300 MG CAPSULE PO ×2 (04:51→08:15)
[2018-10-08 06:00] VITALS: BP 107/52; PULSE 65; RESP 17; TEMP 36.4; O2SAT 98
[2018-10-08 08:04] VITALS: BP 124/66; PULSE 75; RESP 20; TEMP 36.9; O2SAT 95
[2018-10-08 08:13] VITALS: BP 135/79
[2018-10-08] MEDS: FLUTICASONE 120 SPRAY/16 GM SPRAY.SUSP NASAL (08:14)
[2018-10-08] MEDS: METFORMIN HCL 500 MG TABLET PO (08:14)
[2018-10-08] MEDS: ASPIRIN EC 81 MG TABLET PO (08:14)
[2018-10-08] MEDS: TRIAMCINOLONE 0.1% OINT 15 GM 1 APPLIC TOP (08:15)
[2018-10-08] MEDS: METOPROLOL ER 50 MG TABLET 100 MG PO (08:15)
[2018-10-08 08:45] VITALS: O2SAT 94
--- NOTE | 2018-10-08 09:08 | P.DS_ITS ---
History of Present Illness Date Patient Seen: 10/08/18 Chief complaint: Decreased Mobility Narrative: 67-year-old female with history chronic hypercapnia and obesity presents with increased weakness and inability to ambulate. Noted to have worsening hypoxemia during evaluation in the ER with a PO2 in the 50s. She has had some increased cough recently nonproductive. She denies any fevers denies chest pain Discharge Providers Date of admission: 10/05/18 10:24 Primary care physician: Johnny Saini MD Consults: 10/05/18 12:03 Consult to Physical Therapy Evaluate & Treat Comment: weak Physician Instructions: Evaluate and Treat Discharge provider: Geovanna Sanchez MD Discharge Date: 10/08/18 Summary Discharge Diagnosis: Morbid Obesity Acute on chronic Hypoxic Respiratory Failure Hypokalemia Hyponatremia Acute Kidney Injury Weakness Hypertension Anemia of chronic disease Hyperlipidemia Chronic Atrial Fibrillation Chronic Obstructive Lung Disease Acute Bronchitis Chronic Venous Stasis Ulceration Hospital Course: Patient was admitted to the hospital for weakness. She was found to have hypokalemia, hyponatremia, and acute kidney injury secondary to diuretic use. The patient was hypoxic and hypercarbic on admission. She was treated for acute bronchitis. She was found to have an elevated INR which improved during her hospital stay. She was evaluated by PT/OT and felt to be to weak to return home despite in home care. REcommendations were made for her to go to a SNF post discharge for rehabilitation. The patient was very somnolent during her stay, her neurontin was adjusted with improved wakefulness. The patient was deemed appropriate for discharge and arrangements wer made for her to go to a SNF Status at Discharge Cognitive/behavioral status at discharge: At baseline Functional status at discharge: wheelchair bound Overall status at discharge: patient is back to baseline Time Spent with Patient Less than 30 minutes Exam Vital Signs (past 8 hours): - 10/08/18 06:00 10/08/18 08:04 10/08/18 08:13 Temperature 97.6 F 98.4 F Pulse Rate 65 75 Respiratory Rate 17 20 Blood Pressure 107/52 L 124/66 135/79 Pulse Oximetry 98 95 10/08/18 08:45 Temperature Pulse Rate Respiratory Rate Blood Pressure Pulse Oximetry 94 Oxygen Delivery Method Nasal Cannula Oxygen Flow Rate 2 Narrative Exam Narrative: Pleasant morbidly obese female awake and alert and in no acute distress Lungs: Decreased breath sounds with scattered rhonchi CV: irregularly irregular, nl S1 S2 Abd: soft/ non tender/ non distended Ext: no edema Objective Labs Result Diagrams: 10/07/18 06:05 10/07/18 06:05 Discharge Plan Discharge Plan Discharge Problem: Weakness, Acute hypokalemia, Acute and chronic respiratory failure with hypoxia Patient Disposition: SNF Transfer to: [facility] Transportation: [place] I certify the postop hospital alf care is medically necessary on a continuing basis for any conditions for which he/ she received care during this hospitalization.: Yes The receiving facility has agreed to accept transfer and provide medical treatment.: Yes Discharge Med Rec/Prescriptions Prescriptions: New albuterol sulfate [Ventolin HFA] 90 mcg/actuation Hfa Aerosol Inhaler 2 puff INH Q4H PRN (Reason: Shortness Of Breath) 30 Days RF: 0 hydrocodone-acetaminophen 5-325 mg tablet 1 tab PO Q6H Qty: 20 RF: 0 Continue metformin [Glucophage] 500 mg tablet 500 mg PO BID RF: 0 oxybutynin chloride 10 mg tablet extended release 24hr 10 mg PO DAILY RF: 0 ursodiol 300 mg capsule 300 mg PO BID RF: 0 aspirin 81 mg Tablet,Delayed Release (Dr/Ec) 81 mg PO DAILY RF: 0 metoprolol succinate 50 mg Tablet Extended Release 24 Hr 100 mg PO DAILY Qty: 30 RF: 0 diltiazem HCl [Cartia XT] 240 mg Capsule,Extended Release 24hr 240 mg PO DAILY RF: 0 digoxin [Digitek] 125 mcg Tablet 0.125 mg PO QPM RF: 0 warfarin 5 mg tablet 7.5 mg PO QPM RF: 0 losartan 50 mg tablet 50 mg PO DAILY RF: 0 triamcinolone acetonide 0.1 % Ointment 1 applic TOPICAL BID RF: 0 gabapentin 300 mg Capsule 600 mg PO Q6H RF: 0 ipratropium-albuterol [Combivent Respimat] 20-100 mcg/actuation Mist 1 puff Inhalation Q8H RF: 0 atorvastatin 80 mg tablet 80 mg PO BEDTIME RF: 0 torsemide 20 mg tablet 1 tab PO BID RF: 0 hydrocodone-acetaminophen 7.5-325 mg tablet 1 tab PO Q8H PRN (Reason: Pain, Moderate) RF: 0 potassium chloride 10 mEq capsule, extended release 10 meq PO DAILY Qty: 30 RF: 1 Discontinued hydrochlorothiazide 12.5 MG capsule 1 - 2 cap PO QDAYP PRN (Reason: Edema) Qty: 0 RF: 0 furosemide 40 mg Tablet 40 mg PO BID RF: 0 Follow up/Referrals: Johnny Saini MD [Primary Care Provider] - Provider Discharge Instructions Diet: Low-fat and Low-sodium Liquid consistency: Normal/Thin Food texture: Regular Diet comment: normal consistency, Needs 1200 CC free water restriction daily Activity: as tolerated Oxygen: 2 liters [facility] Reason for rehabilitation: Recovery r/t decondition Rehab type: Physical therapy and Occupational therapy Restrictions to mobility: None, as tolerated Visit Report/Discharge Packet Instructions: Eating a Diet Low in Saturated Fat, Trans Fat, and Cholesterol, Low-Sodium Diet Visit Report Forms: Stroke Signs & Symptoms Discharge Data Primary Care Provider: Johnny Saini Attending Provider: Mikal Rodriguez Admit Date/Time: 10/05/18 10:24 Quality VTE Deep Vein Thrombosis/Pulmonary Embolism Present on Admission: No
--- NOTE | 2018-10-08 09:44 | PC.NURSE ---
Pt is A&Ox3 today. She may be going to a SNF at discharge later, she is adamant about going home. She was to discharge yesterday but her mobility with PT took 3 people to get her up and she was not moving well. Pt is discharged today and will go to the SNF. She is resting comfortably at this time
[2018-10-08 09:56] VITALS: O2SAT 94
--- NOTE | 2018-10-08 10:55 | CM.DPC ---
DCP/continued: Reviewed chart. Received notification in AM rounds that patient is medically stable for discharge to SNF today. Per previous BIOPHYSICS TEACHER notes, patient anticipated to be accepted at [facility]. BIOPHYSICS TEACHER placed call to Elysia with admit at [facility] she confirms that they can accept. BIOPHYSICS TEACHER asked ARIS/Elizabeth to fax orders, PASRR, and copy of scripts to [facility]. Spoke with Calista at [facility] and she reports that patient will be picked up at approximately 2:30pm today. [facility] aware that patient will need bariatric wheelchair. Met with patient this AM explained CM/SW role. Patient aware and agreeable to d/c plan today. RN updated on pickling operator time. P: [facility] today via bariatric wheelchair. Patient scheduled to be picked up at approximately 2:30pm. EMANUEL Maria
--- NOTE | 2018-10-08 11:01 | CM.DPC ---
D/C summary faxed to [facility]
--- NOTE | 2018-10-08 11:42 | PT.IPTN ---
Current Diagnoses Type 2 diabetes mellitus without complications (10/05/18) Morbid (severe) obesity due to excess calories (10/05/18) Hypo-osmolality and hyponatremia (10/05/18) Chronic atrial fibrillation (10/05/18) Acute bronchitis, unspecified (10/05/18) Acute and chronic respiratory failure with hypoxia (10/05/18) Acute kidney failure, unspecified (10/05/18) Physical Therapy Treatment Note Physical Therapy Visit Type Type Administrative Note Notes Pt is discharging today to [facility] SNF rehab at approximately 1430. Pt has no other acute goals/needs that need to be addressed in the next few hours. Acute PT will sign off. Recommendations To Nursing Amount of Assist Needed 2 Person Assist Discharge Recommendations PT Discharge Recommendations SNF Rehab
--- NOTE | 2018-10-08 12:55 | PT.IPTN ---
Current Diagnoses Type 2 diabetes mellitus without complications (10/05/18) Morbid (severe) obesity due to excess calories (10/05/18) Hypo-osmolality and hyponatremia (10/05/18) Chronic atrial fibrillation (10/05/18) Acute bronchitis, unspecified (10/05/18) Acute and chronic respiratory failure with hypoxia (10/05/18) Acute kidney failure, unspecified (10/05/18) Physical Therapy Treatment Note M2 PT-IP Current Condition Start: 10/05/18 16:03 Freq: NEEDED Status: Active Protocol: Document 10/06/18 13:45 RCC (Rec: 10/06/18 17:08 RCC [id number]) Physical Therapy Current Condition Current Condition Evaluation Date 10/06/18 Treatment Diagnosis decreased mobility M3 PT-IP Subjective Start: 10/05/18 16:03 Freq: NEEDED Status: Active Protocol: Document 10/08/18 12:15 RS (Rec: 10/08/18 12:55 RS [id number]) Subjective Physical Therapy Visit Type Type Discharge Summary Visit Start Time 11:50 Visit Stop Time 12:15 Total Visit Minutes 25 Physical Therapy Visit Comments Patient Comments Pt feels weaker than yesterday . Therapy Pain Assessment Pain When Pain Assessed At Rest Pain Present Pain Present Pain Reported Location Right Foot Intensity 8 Scale Used Numeric (1 - 10) Description Pressure Sharp Tender Throbbing Pain Management Techniques Distraction Elevation Modification of Treatment Re-positioning M4 PT-IP Mobility and Gait Start: 10/05/18 16:03 Freq: NEEDED Status: Active Protocol: Document 10/08/18 12:15 RS (Rec: 10/08/18 12:55 RS [id number]) PT-Transfer Assessment Sit to and From Stand Sit to and from Stand Maximum Assistance 2 Person Assistance Equipment Transfer Assistive Device Gait Belt Front Wheeled Walker Transfers Transfer Destination Chair Bedside Commode Transfer Technique Stand Pivot Transfer Ability Level of Assist Moderate Assistance 2 Person Assistance Comments Mobility Comments Pt needing two person max A and significant cues for technique to stand up. Pt was having great difficulty taking steps to perform the transfer and only made it about half way each time with 2-person min A before 2-person max A was need to pivot the remainder of the way to the destination. vitals normal. Gait Assessment Comments Gait Comments not appropriate to attempt this session. PT-Balance Assessment Sitting Balance and Reactions Static Sitting Balance Ability Fair Dynamic Sitting Balance Ability Fair M5 PT-IP Objective Assessments Start: 10/05/18 16:03 Freq: NEEDED Status: Active Protocol: Document 10/06/18 13:45 RCC (Rec: 10/06/18 17:08 RCC [email or web address]) Orientation Orientation/Cognition Level of Alertness Alert Coordination Assessment Gross Coordination Gross Coordination WNL M7 PT-IP Assessment and Plan Start: 10/05/18 16:03 Freq: NEEDED Status: Active Protocol: Document 10/08/18 12:15 RS (Rec: 10/08/18 12:55 RS [id number]) PT Summary Assessment and Plan Potential Rehabilitation Potential Fair Status of Condition at Evaluation Stable Summary Impairments Strength Balance Bed Mobility Transfers Gait Activity Tolerance Progress Towards Goals Slow Progress due to Activity Tolerance Assessment Summary Pt still far below baseline, continue to recommend pt transition to SNF rehab and should probably consider a higher level of care even after SNF. Pt is discharging to SNF today at 1430. Frequency of Treatment Frequency Of Treatment Discharge Recommendations To Nursing Amount of Assist Needed 2 Person Assist Discharge Recommendations PT Discharge Recommendations SNF Rehab
== END 2018-10-08 14:37 | DRG 189 ==
LOC: ED 09:50 → AC 10:25
PROVIDERS: Internal Medicine; Admitting Provider Internal Medicine; Emergency Provider Emergency Medicine; Family Provider Internal Medicine; PCP Internal Medicine; Visit Provider Internal Medicine
DX: J96.21 Acute and chronic respiratory failure with hypoxia (principal); N17.9 Acute kidney failure, unspecified; Z68.44 Body mass index [BMI] 60.0-69.9, adult; E66.2 Morbid (severe) obesity with alveolar hypoventilation; J44.0 Chronic obstructive pulmonary disease with (acute) lower respiratory infection; E87.1 Hypo-osmolality and hyponatremia; J20.9 Acute bronchitis, unspecified; J96.12 Chronic respiratory failure with hypercapnia; E87.6 Hypokalemia; E86.9 Volume depletion, unspecified; J44.9 Chronic obstructive pulmonary disease, unspecified; I10 Essential (primary) hypertension; R40.0 Somnolence; F17.210 Nicotine dependence, cigarettes, uncomplicated; Z79.01 Long term (current) use of anticoagulants; I95.9 Hypotension, unspecified; Z66 Do not resuscitate; I48.2 Chronic atrial fibrillation; D50.9 Iron deficiency anemia, unspecified; I87.8 Other specified disorders of veins
CPT/HCPCS: 36415; 36591; 36600; 71045; 80048; 80053; 80162; 81001; 82805; 82962; 83540; 83550; 83735; 83880; 84145; 84484; 85025; 85610; 85730; 87086; 93005; 94640; 94762; 96365; 96367; 97162; 97530; 99284; 99285; 99406; J3480

== ENCOUNTER → 2018-11-04 07:36 | Outpatient (REF) | payer MEDICARE, SELFPAY ==
[2018-06-18 14:20] VITALS: PULSE 68; RESP 23; O2SAT 95
[2018-10-05 12:30] VITALS: BMI 56.5
[2018-11-04 08:22] LABS: INR 2.4 (0.9-1.3); Prothrombin Time 28.4 SECONDS (10.1-12.7)
== END ==
LOC: LAB 07:36
PROVIDERS: Family Provider Internal Medicine; PCP Internal Medicine; Visit Provider Hospitalist
DX: I48.91 Unspecified atrial fibrillation (principal)
CPT/HCPCS: 36415; 85610

== ENCOUNTER → 2018-11-11 09:12 | Outpatient (REF) | payer MEDICARE, SELFPAY ==
[2018-06-18 14:20] VITALS: PULSE 68; RESP 23; O2SAT 95
[2018-10-05 12:30] VITALS: BMI 56.5
== END ==
LOC: LAB 09:12
PROVIDERS: Family Provider Internal Medicine; PCP Internal Medicine; Visit Provider Nurse Practitioner Family
DX: D50.9 Iron deficiency anemia, unspecified (principal)

== ENCOUNTER → 2018-11-12 14:31 | Outpatient (REF) | payer MEDICARE, SELFPAY ==
[2018-06-18 14:20] VITALS: PULSE 68; RESP 23; O2SAT 95
[2018-10-05 12:30] VITALS: BMI 56.5
[2018-11-12 14:49] LABS: Hematocrit 31.8 % (36-46); Hemoglobin 9.6 g/dL (12.0-16.0)
[2018-11-12 15:02] LABS: INR 1.7 (0.9-1.3); Prothrombin Time 19.5 SECONDS (10.1-12.7)
== END ==
LOC: LAB 14:31
PROVIDERS: Family Provider Internal Medicine; PCP Internal Medicine; Visit Provider Hospitalist
DX: I48.0 Paroxysmal atrial fibrillation (principal)
CPT/HCPCS: 85014; 85018; 85610

== ENCOUNTER → 2018-11-18 07:24 | Outpatient (REF) | payer MEDICARE, SELFPAY ==
[2018-06-18 14:20] VITALS: PULSE 68; RESP 23; O2SAT 95
[2018-10-05 12:30] VITALS: BMI 56.5
[2018-11-18 08:04] LABS: INR 1.5 (0.9-1.3); Prothrombin Time 17.2 SECONDS (10.1-12.7)
== END ==
LOC: LAB 07:24
PROVIDERS: Family Provider Internal Medicine; PCP Internal Medicine; Visit Provider Hospitalist
DX: I48.91 Unspecified atrial fibrillation (principal)
CPT/HCPCS: 36415; 85610

== ENCOUNTER → 2018-11-25 07:57 | Outpatient (REF) | payer MEDICARE, SELFPAY ==
[2018-06-18 14:20] VITALS: PULSE 68; RESP 23; O2SAT 95
[2018-10-05 12:30] VITALS: BMI 56.5
[2018-11-25 09:04] LABS: INR 1.3 (0.9-1.3); Prothrombin Time 14.9 SECONDS (10.1-12.7)
== END ==
LOC: LAB 07:57
PROVIDERS: Family Provider Internal Medicine; PCP Internal Medicine; Visit Provider Nurse Practitioner Family
DX: I48.0 Paroxysmal atrial fibrillation (principal)
CPT/HCPCS: 36415; 85610

== ENCOUNTER → 2018-11-29 07:47 | Outpatient (REF) | payer MEDICARE, SELFPAY ==
[2018-06-18 14:20] VITALS: PULSE 68; RESP 23; O2SAT 95
[2018-10-05 12:30] VITALS: BMI 56.5
[2018-11-29 08:40] LABS: INR 1.3 (0.9-1.3); Prothrombin Time 15.3 SECONDS (10.1-12.7)
== END ==
LOC: LAB 07:47
PROVIDERS: Family Provider Internal Medicine; PCP Internal Medicine; Visit Provider Nurse Practitioner Family
DX: Z51.81 Encounter for therapeutic drug level monitoring (principal)
CPT/HCPCS: 36415; 85610

== ENCOUNTER → 2018-12-02 06:53 | Outpatient (REF) | payer MEDICARE, MEDICAID, SELFPAY ==
[2018-06-18 14:20] VITALS: PULSE 68; RESP 23; O2SAT 95
[2018-10-05 12:30] VITALS: BMI 56.5
[2018-12-02 07:34] LABS: INR 1.4 (0.9-1.3); Prothrombin Time 16.5 SECONDS (10.1-12.7)
== END ==
LOC: LAB 06:53
PROVIDERS: Family Provider Internal Medicine; PCP Internal Medicine; Visit Provider Nurse Practitioner Family
DX: I48.91 Unspecified atrial fibrillation (principal); Z79.01 Long term (current) use of anticoagulants
CPT/HCPCS: 36415; 85610

== ENCOUNTER → 2019-01-24 10:40 | Outpatient (CLI) | payer MEDICARE, MEDICAID, SELFPAY ==
[2018-06-18 14:20] VITALS: PULSE 68; RESP 23; O2SAT 95
[2018-10-05 12:30] VITALS: BMI 56.5
[2019-01-24 11:32] LABS: Hemoglobin A1C% w Est Avg Glu 6.3 % (4.0-6.0)
[2019-01-24 11:34] LABS: Add Manual Diff / Slide Review NO; Basophils Absolute Auto 100 /uL (0-100); Basophils Percent Auto 0.8 % (0-2); Eosinophils Absolute Auto 200 /uL (0-450); Eosinophils Percent Auto 2.3 % (2-4); Hematocrit 33.8 % (36-46); Hemoglobin 10.2 g/dL (12.0-16.0); Lymphocytes Absolute Auto 1200 /uL (1100-4500); Lymphocytes Percent Auto 13.2 % (25-40); Mean Corpuscular HGB Conc 30.1 % (30-36); Mean Corpuscular Volume 76.4 fL (80-100); Monocytes Absolute Auto 700 /uL (0-900); Monocytes Percent Auto 7.1 % (3-14); Neutrophils Absolute Auto 7200 /uL (1500-7000); Neutrophils Percent Auto 76.6 % (50-75); Platelet Count 421 X10^3/uL (150-400); Red Blood Cell Count 4.42 X10^6/uL (4.0-5.2); Red Cell Distribution Width 22.1 % (11.6-14.8); White Blood Cell Count 9.3 X10^3/uL (4.5-11.0)
[2019-01-24 11:44] LABS: Alanine Aminotransferase 18 IU/L (9-52); Albumin 3.6 g/dL (3.5-5.0); Albumin Globulin Ratio 1.1 (1.0-2.8); Alkaline Phosphatase 69 U/L (38-126); Aspartate Aminotransferase 15 IU/L (14-36); BUN Creatinine Ratio 18.6 (6-22); Bilirubin Total 0.4 mg/dL (0.2-1.3); Blood Urea Nitrogen 13 mg/dL (7-17); Calcium 8.2 mg/dL (8.4-10.2); Carbon Dioxide 33 mmol/L (22-32); Chloride 95 mmol/L (98-107); Estimated Glomerular Filt Rate > 60.0 mL/min (>60); Globulin 3.4 g/dL (1.7-4.1); Glucose 100 mg/dL (80-110); HEMOLYSIS < 15 (0-50); Sodium 137 mmol/L (137-145)
[2019-01-24 12:04] LABS: Hypochromasia 1+; Microcytosis 1+; Polychromasia 1+
[2019-01-24 12:05] LABS: Anisocytosis 3+
== END ==
PROVIDERS: PCP Internal Medicine; Visit Provider Internal Medicine
DX: I10 Essential (primary) hypertension (principal); E78.5 Hyperlipidemia, unspecified; Z51.81 Encounter for therapeutic drug level monitoring; Z79.01 Long term (current) use of anticoagulants; I48.0 Paroxysmal atrial fibrillation; E11.8 Type 2 diabetes mellitus with unspecified complications
CPT/HCPCS: 36415; 80053; 83036; 85025

== ENCOUNTER 2019-02-12 22:26 | Inpatient (IN) | payer MEDICARE, MEDICAID, SELFPAY ==
[2018-06-18 14:20] VITALS: PULSE 68; RESP 23; O2SAT 95
[2018-10-05 12:30] VITALS: BMI 56.5
[2019-02-12 22:30] VITALS: BP 83/40; PULSE 70; RESP 18; TEMP 36.8; O2SAT 88
--- NOTE | 2019-02-12 22:33 | ED_ITS ---
HPI - Weakness General Chief complaint: Weakness Stated complaint: Generalized weakness Time Seen by Provider: 02/12/19 22:27 Source: patient and EMS Mode of arrival: EMS Limitations: no limitations History of Present Illness HPI Narrative: Patient is a 68-year-old female. EMS reports that they get called from her multiple times a week for lift assist because she falls at home. The patient does live alone. She states that today she became weak to the point to where she slid out of her chair and could not stand up. She called 911. she denies any other symptoms. Related Data Home Medications Medication Instructions Recorded Confirmed aspirin 81 mg PO DAILY 04/12/18 10/05/18 metformin [Glucophage] 500 mg PO BID 04/12/18 10/05/18 oxybutynin chloride 10 mg PO DAILY 04/12/18 10/05/18 ursodiol 300 mg PO BID 04/12/18 10/05/18 losartan 50 mg PO DAILY 06/04/18 10/05/18 digoxin [Digitek] 0.125 mg PO QPM 06/12/18 10/05/18 diltiazem HCl [Cartia XT] 240 mg PO DAILY 06/12/18 10/05/18 warfarin 7.5 mg PO QPM 06/17/18 10/05/18 gabapentin 600 mg PO Q6H 09/04/18 10/05/18 ipratropium-albuterol [Combivent 1 puff INHALATION Q8H 09/04/18 10/06/18 Respimat] triamcinolone acetonide 1 applic TOPICAL BID 09/04/18 10/07/18 atorvastatin 80 mg PO BEDTIME 09/25/18 10/05/18 hydrocodone-acetaminophen 1 tab PO Q8H PRN 09/25/18 10/05/18 torsemide 1 tab PO BID 09/25/18 10/05/18 Previous Rx's Medication Instructions Recorded metoprolol succinate 100 mg PO DAILY #30 tab 04/15/18 potassium chloride 10 meq PO DAILY #30 cap 09/25/18 hydrocodone-acetaminophen 1 tab PO Q6H #20 tab 10/08/18 Allergies Allergy/AdvReac Type Severity Reaction Status Date / Time captopril [CAPTOPRIL] Allergy Unknown Verified 09/25/18 14:09 nabumetone [NABUMETONE] Allergy Unknown Rash Verified 09/25/18 14:09 Review of Systems Constitutional Denies fever(s), Reports frequent falls and Reports weakness ENT Ears, Nose, Mouth, and Throat: Denies disequilibrium Cardiovascular Denies chest pain Respiratory Comments: Patient states she occasionally become short of breath. Does not use her oxygen at home. Musculoskeletal Reports muscle weakness, Denies numbness and Denies tingling Integumentary/Breasts Denies rash Neurologic Denies behavioral changes, Reports frequent falls, Denies numbness, Denies tingling, Denies disequilibrium and Reports weakness Psychiatric Denies behavioral changes Hematologic/Lymphatic Denies easy bleeding and Denies easy bruising Allergic/Immunologic Denies urticaria [facility] Medical History Chronic anticoagulation (Acute) Chronic respiratory failure with hypoxia and hypercapnia (Acute) Iron deficiency anemia (Acute) Morbid obesity (Acute) Obesity hypoventilation syndrome (Acute) Atrial fibrillation (Chronic) Depression (Chronic) Diabetes (Chronic) Hyperlipidemia (Chronic) Hypertension (Chronic) Lumbar degenerative disc disease (Chronic) Obesity (Chronic) Osteoarthritis (Chronic) Pneumococcal meningitis (Chronic) Prolapsed bladder (Chronic) Cholelithiasis (Resolved) Fracture of left ankle (Resolved) Inguinal hernia (Resolved) Surgical History History of abdominoplasty (Resolved) History of gastric bypass (Resolved) Social History household members: none Smoking Status: Current every day smoker alcohol intake: former additional social history: lives alone Social History household members: none Smoking Status: Current every day smoker alcohol intake: former additional social history: lives alone Exam Initial Vital Signs Initial Vital Signs: Vital Signs Temperature 98.2 F 02/12/19 22:30 Pulse Rate 70 02/12/19 22:30 Respiratory Rate 18 02/12/19 22:30 Blood Pressure 83/40 L 02/12/19 22:30 Pulse Oximetry 88 L 02/12/19 22:30 Const General: cooperative, well groomed and No acute distress Orientation: alert and awake HENMA Head: normal to inspection and normocephalic Resp Effort & Inspection: no cough, labored, no retractions and tachypneic Auscultation: clear to auscultation bilaterally Other: Hypoxic Cardio Rate: regular rate Rhythm: regular rhythm Pulses: radial pulses present GI Inspection: non-distended Palpation: soft Skin Lesions: no lesions Rashes: no rashes Neuro General: alert, awake and oriented x3 Speech: speech normal Extrem General: No edema Psych Appearance: grossly normal and well kempt Scores GCS Christina coma scale eye opening: Spontaneous Christina coma scale verbal response: Orientated Burke coma scale motor response: Obey commands Burke coma scale total score: 15 Course Orders Ordered: ED Orders 02/12/19 22:34 EKG-12 Lead Stat 02/12/19 22:38 Complete Blood Count AUTO DIFF Stat Comprehensive Metabolic Panel Stat Lipase Stat Partial Thromboplastin Time Stat Prothrombin Time INR Stat Troponin I Stat 02/12/19 22:44 XR chest 1V Stat 02/12/19 23:03 ABG [Arterial Blood Gas] Stat 02/13/19 00:14 Digoxin Stat 02/13/19 01:27 Education, smoking cessation ONGOING 02/13/19 01:34 Consult to Discharge Planning Routine Consult to Occupational Therapy Evaluate & Treat Consult to Physical Therapy Evaluate & Treat 02/13/19 03:40 Consult to Comptometrist Routine 02/13/19 05:00 Urinalysis and Microscopic Stat Urine Culture Stat Urine Drug Screen, Rapid Stat 02/13/19 06:00 Arterial Blood Gas Routine Acetaminophen (Tylenol) 650 mg PO Q6HR PRN PRN Reason: As Needed for Fever/Mild Pain Bisacodyl (Dulcolax) 10 mg NE DAILY PRN PRN Reason: Constipation Docusate Sodium (Colace) 100 mg PO BID PRN PRN Reason: Constipation Heparin Sodium (Porcine) (Heparin) 5,000 unit SUBCUT BID LORNA Insulin Aspart (Novolog Flexpen) 0 unit SUBCUT ACHS [facility]; Protocol Nicotine (Nicoderm) 21 mg TOP DAILY LORNA Discontinued Medications Sodium Chloride (Normal Saline 0.9%) 1,000 mls @ 1,000 mls/hr IV BOLUS ONE Stop: 02/12/19 23:55 Last Infusion: 02/13/19 00:10 Dose: 1,000 mls/hr Admin: 02/12/19 23:01 Dose: 1,000 mls/hr Insulin Aspart (Novolog Flexpen) 0 unit SUBCUT ACHS [facility]; Protocol Vital Signs - 8 hr 02/12/19 23:20 02/13/19 00:00 02/13/19 00:30 Temperature Pulse Rate 72 69 71 Respiratory Rate 18 23 22 Blood Pressure Blood Pressure [Right Arm] 95/42 L 91/48 L 95/48 L Pulse Oximetry 86 L 97 98 02/13/19 01:00 02/13/19 02:01 02/13/19 06:07 Temperature 97.1 F L 97.5 F L Pulse Rate 68 64 74 Respiratory Rate 21 18 14 Blood Pressure 96/52 L 105/63 Blood Pressure [Right Arm] 94/44 L Pulse Oximetry 97 92 95 MDM - Weakness Lab Data Attestation: I reviewed the patient's lab results. Result diagrams: 02/12/19 22:38 02/12/19 22:38 Lab Results 02/12/19 02/12/19 02/12/19 Range/Units 22:38 22:38 22:38 WBC 10.0 (4.5-11.0) X10^3/uL RBC 4.53 (4.0-5.2) X10^6/uL Hgb 10.3 L (12.0-16.0) g/dL Hct 34.5 L (36-46) % MCV 76.3 L (80-100) fL MCH 22.7 L (26-34) PG MCHC 29.7 L (30-36) % RDW 22.9 H (11.6-14.8) % Plt Count 357 (150-400) X10^3/uL Neut % (Auto) 71.7 (50-75) % Lymph % (Auto) 18.0 L (25-40) % Kimble % (Auto) 6.7 (3-14) % Eos % (Auto) 2.4 (2-4) % Baso % (Auto) 1.2 (0-2) % Neut # (Auto) 7200 H (7095-7534) /uL Lymph # (Auto) 1800 (6345-3773) /uL Kimble # (Auto) 700 (0-900) /uL Eos # (Auto) 200 (0-450) /uL Baso # (Auto) 100 (0-100) /uL RBC Morphology See below Polychromasia 1+ H Hypochromasia 1+ H Anisocytosis 2+ H PT 15.8 H (10.1-12.7) SECONDS INR 1.4 H (0.9-1.3) APTT 34 D (26.4-36.2) SECONDS ABG pH (7.35-7.45) ABG pCO2 (35-45) mmHg ABG pO2 (80-100) mmHg ABG HCO3 (22-26) mmol/L ABG Total CO2 (21-31) mmol/L ABG O2 Saturation (95-100) % ABG Base Excess (-2-2) mmol/L FiO2 Sodium 136 L (137-145) mmol/L Potassium 4.4 (3.4-5.1) mmol/L Chloride 93 L (98-107) mmol/L Carbon Dioxide 34 H (22-32) mmol/L BUN 17 (7-17) mg/dL Creatinine 0.80 (0.52-1.04) mg/dL Estimated GFR > 60.0 (>60) mL/min BUN/Creatinine Ratio 21.3 (6-22) Glucose 105 (80-110) mg/dL Calcium 8.1 L (8.4-10.2) mg/dL Total Bilirubin 0.4 (0.2-1.3) mg/dL AST 14 (14-36) IU/L ALT 22 (9-52) IU/L Alkaline Phosphatase 76 (38-126) U/L Troponin I < 0.012 (0.01-0.034) ng/mL Total Protein 6.9 (6.3-8.2) g/dL Albumin 3.4 L (3.5-5.0) g/dL Globulin 3.5 (1.7-4.1) g/dL Albumin/Globulin Ratio 1.0 (1.0-2.8) Lipase 10 L (23-300) U/L Urine Color Urine Appearance Urine pH (4.5-8.0) Ur Specific [place] (1.000-1.035) Urine Protein (Negative) Urine Glucose (UA) (Negative) g/dL Urine Ketones (NEGATIVE) Urine Occult Blood (Negative) Urine Nitrate (Negative) Urine Bilirubin (NEGATIVE) Urine Urobilinogen (0.2) E.U./dL Ur Leukocyte Esterase (NEGATIVE) Urine RBC (0-5/HPF) Urine WBC (0-5/HPF) Amorphous Sediment Urine Bacteria (None) Ur Culture Indicated? Digoxin (0.8-2.0) ng/mL Urine Opiates Screen (Negative) Ur Oxycodone Screen (Negative) Urine Methadone Screen (Negative) Ur Barbiturates Screen (Negative) U Tricyclic Antidepress (Negative) Ur Phencyclidine Scrn (Negative) Ur Amphetamines Screen (Negative) U Methamphetamines Scrn (Negative) Ur MDMA Scrn (Ecstasy) (Negative) U Benzodiazepines Scrn (Negative) Urine Cocaine Screen (Negative) U Marijuana (THC) Screen (Negative) 02/12/19 02/12/19 02/13/19 Range/Units 22:38 23:03 05:00 WBC (4.5-11.0) X10^3/uL RBC (4.0-5.2) X10^6/uL Hgb (12.0-16.0) g/dL Hct (36-46) % MCV (80-100) fL MCH (26-34) PG MCHC (30-36) % RDW (11.6-14.8) % Plt Count (150-400) X10^3/uL Neut % (Auto) (50-75) % Lymph % (Auto) (25-40) % Kimble % (Auto) (3-14) % Eos % (Auto) (2-4) % Baso % (Auto) (0-2) % Neut # (Auto) (9596-0789) /uL Lymph # (Auto) (3572-5419) /uL Kimble # (Auto) (0-900) /uL Eos # (Auto) (0-450) /uL Baso # (Auto) (0-100) /uL RBC Morphology Polychromasia Hypochromasia Anisocytosis PT (10.1-12.7) SECONDS INR (0.9-1.3) APTT (26.4-36.2) SECONDS ABG pH 7.31 L (7.35-7.45) ABG pCO2 64.6 H* (35-45) mmHg ABG pO2 46 L* (80-100) mmHg ABG HCO3 33 H (22-26) mmol/L ABG Total CO2 34 H (21-31) mmol/L ABG O2 Saturation 76 L* (95-100) % ABG Base Excess 6.0 H (-2-2) mmol/L FiO2 21 Sodium (137-145) mmol/L Potassium (3.4-5.1) mmol/L Chloride (98-107) mmol/L Carbon Dioxide (22-32) mmol/L BUN (7-17) mg/dL Creatinine (0.52-1.04) mg/dL Estimated GFR (>60) mL/min BUN/Creatinine Ratio (6-22) Glucose (80-110) mg/dL Calcium (8.4-10.2) mg/dL Total Bilirubin (0.2-1.3) mg/dL AST (14-36) IU/L ALT (9-52) IU/L Alkaline Phosphatase (38-126) U/L Troponin I (0.01-0.034) ng/mL Total Protein (6.3-8.2) g/dL Albumin (3.5-5.0) g/dL Globulin (1.7-4.1) g/dL Albumin/Globulin Ratio (1.0-2.8) Lipase (23-300) U/L Urine Color Yellow Urine Appearance Slightly cloudy Urine pH 5.0 (4.5-8.0) Ur Specific [place] 1.010 (1.000-1.035) Urine Protein Negative (Negative) Urine Glucose (UA) Negative (Negative) g/dL Urine Ketones Negative (NEGATIVE) Urine Occult Blood Negative (Negative) Urine Nitrate Negative (Negative) Urine Bilirubin Negative (NEGATIVE) Urine Urobilinogen 0.2 (0.2) E.U./dL Ur Leukocyte Esterase Negative (NEGATIVE) Urine RBC None seen (0-5/HPF) Urine WBC None seen (0-5/HPF) Amorphous Sediment 3+ Urine Bacteria Moderate (10-30) H (None) Ur Culture Indicated? Specimen cultured Digoxin 0.9 (0.8-2.0) ng/mL Urine Opiates Screen (Negative) Ur Oxycodone Screen (Negative) Urine Methadone Screen (Negative) Ur Barbiturates Screen (Negative) U Tricyclic Antidepress (Negative) Ur Phencyclidine Scrn (Negative) Ur Amphetamines Screen (Negative) U Methamphetamines Scrn (Negative) Ur MDMA Scrn (Ecstasy) (Negative) U Benzodiazepines Scrn (Negative) Urine Cocaine Screen (Negative) U Marijuana (THC) Screen (Negative) 02/13/19 Range/Units 05:00 WBC (4.5-11.0) X10^3/uL RBC (4.0-5.2) X10^6/uL Hgb (12.0-16.0) g/dL Hct (36-46) % MCV (80-100) fL MCH (26-34) PG MCHC (30-36) % RDW (11.6-14.8) % Plt Count (150-400) X10^3/uL Neut % (Auto) (50-75) % Lymph % (Auto) (25-40) % Kimble % (Auto) (3-14) % Eos % (Auto) (2-4) % Baso % (Auto) (0-2) % Neut # (Auto) (1966-9926) /uL Lymph # (Auto) (1528-1855) /uL Kimble # (Auto) (0-900) /uL Eos # (Auto) (0-450) /uL Baso # (Auto) (0-100) /uL RBC Morphology Polychromasia Hypochromasia Anisocytosis PT (10.1-12.7) SECONDS INR (0.9-1.3) APTT (26.4-36.2) SECONDS ABG pH (7.35-7.45) ABG pCO2 (35-45) mmHg ABG pO2 (80-100) mmHg ABG HCO3 (22-26) mmol/L ABG Total CO2 (21-31) mmol/L ABG O2 Saturation (95-100) % ABG Base Excess (-2-2) mmol/L FiO2 Sodium (137-145) mmol/L Potassium (3.4-5.1) mmol/L Chloride (98-107) mmol/L Carbon Dioxide (22-32) mmol/L BUN (7-17) mg/dL Creatinine (0.52-1.04) mg/dL Estimated GFR (>60) mL/min BUN/Creatinine Ratio (6-22) Glucose (80-110) mg/dL Calcium (8.4-10.2) mg/dL Total Bilirubin (0.2-1.3) mg/dL AST (14-36) IU/L ALT (9-52) IU/L Alkaline Phosphatase (38-126) U/L Troponin I (0.01-0.034) ng/mL Total Protein (6.3-8.2) g/dL Albumin (3.5-5.0) g/dL Globulin (1.7-4.1) g/dL Albumin/Globulin Ratio (1.0-2.8) Lipase (23-300) U/L Urine Color Urine Appearance Urine pH (4.5-8.0) Ur Specific [place] (1.000-1.035) Urine Protein (Negative) Urine Glucose (UA) (Negative) g/dL Urine Ketones (NEGATIVE) Urine Occult Blood (Negative) Urine Nitrate (Negative) Urine Bilirubin (NEGATIVE) Urine Urobilinogen (0.2) E.U./dL Ur Leukocyte Esterase (NEGATIVE) Urine RBC (0-5/HPF) Urine WBC (0-5/HPF) Amorphous Sediment Urine Bacteria (None) Ur Culture Indicated? Digoxin (0.8-2.0) ng/mL Urine Opiates Screen Negative (Negative) Ur Oxycodone Screen Negative (Negative) Urine Methadone Screen Negative (Negative) Ur Barbiturates Screen Negative (Negative) U Tricyclic Antidepress Negative (Negative) Ur Phencyclidine Scrn Negative (Negative) Ur Amphetamines Screen Negative (Negative) U Methamphetamines Scrn Negative (Negative) Ur MDMA Scrn (Ecstasy) Negative (Negative) U Benzodiazepines Scrn Negative (Negative) Urine Cocaine Screen Negative (Negative) U Marijuana (THC) Screen Negative (Negative) Point of Care Testing Glucose POC 117 ABG Data ABG results: pH 7.3 pCO2 64 PO2 46 Bicarb 32 O2 sat 76% room-air ABG Interpretation: respiratory acidosis Imaging Data Chest x-ray: Attestation: I personally reviewed and interpreted this imaging study as follows: My impression: no focal consolidations normal size heart ECG Data Attestation: I personally reviewed and interpreted this ECG as follows: Prior ECG tracings: not available for review Interpretation: sinus rhythm ventricular rate is 72 occasional PACs Normal QRS Normal QTC no ST T wave changes MDM Narrative Medical decision making narrative: patient arrived and was tachypneic and hypoxic to the low 80s. This did improve with O2 by nasal cannula. Patient has been weak for the past several days. Her ABG does show hypercarbia. I suspect that this is chronic. Patient states that she does have oxygen that she is supposed to be using at home but does use it. there was reports that she should be using a CPAP by respiratory therapy however the patient states that she does not use any CPAP at home. Patient had an experience like this back in September of last year where she was admitted however at that time also had electrolyte abnormalities. I do suspect that her weakness is secondary to her hypercarbia and her respiratory distress. EKG was unremarkable. Discussed case with the night hospitalist to admit for further evaluation treatment. Discussed the admission with the patient who expressed understanding and agreement. Discharge Plan Departure Patient Disposition: Home Clinical Impression: Weakness Respiratory failure Qualifiers: Chronicity: unspecified Respiratory failure complication: hypercapnia Qualified Code(s): J96.92 - Respiratory failure, unspecified with hypercapnia Discharge Date/Time: 02/13/19 01:30 Interventions: ED Discharge Assessment Last Done: 02/13/19 01:20 Admit Date/Time: 02/13/19 01:19 Admit Provider: Tasneem Anderson
--- NOTE | 2019-02-12 22:44 | DI.RAD.S_ITS ---
PROCEDURE: XR CHEST 1V INDICATIONS: hypoxia TECHNIQUE: One view of the chest was acquired. COMPARISON: [facility], CR, XR CHEST 1V, 06/12/2018, 11:37. [facility], CR, XR CHEST 1V, 06/17/2018, 18:34. [facility], CR, XR CHEST 1V, 10/05/2018, 8:52. FINDINGS: Surgical changes and devices: None. Lungs and pleura: Mildly increased pulmonary vascularity appears unchanged. No pleural effusions or pneumothorax. Mediastinum: Mediastinal contours appear normal. Heart size is mildly increased. Bones and chest wall: No suspicious bony lesions. Overlying soft tissues appear unremarkable. IMPRESSION: No acute process. Mild increased pulmonary vascularity appears unchanged. Dictated by: Bairon Phillips M.D. on 02/13/2019 at 8:39 Approved by: Bairon Phillips M.D. on 02/13/2019 at 8:42
[2019-02-12 22:57] LABS: INR 1.4 (0.9-1.3); Prothrombin Time 15.8 SECONDS (10.1-12.7)
[2019-02-12 23:00] LABS: PTT Partial Thromboplastin Tim 34 SECONDS (26.4-36.2)
[2019-02-12 23:01] LABS: Alanine Aminotransferase 22 IU/L (9-52); Albumin 3.4 g/dL (3.5-5.0); Alkaline Phosphatase 76 U/L (38-126); Aspartate Aminotransferase 14 IU/L (14-36); BUN Creatinine Ratio 21.3 (6-22); Bilirubin Total 0.4 mg/dL (0.2-1.3); Blood Urea Nitrogen 17 mg/dL (7-17); Calcium 8.1 mg/dL (8.4-10.2); Carbon Dioxide 34 mmol/L (22-32); Chloride 93 mmol/L (98-107); Estimated Glomerular Filt Rate > 60.0 mL/min (>60); Globulin 3.5 g/dL (1.7-4.1); Glucose 105 mg/dL (80-110); HEMOLYSIS < 15 (0-50); Lipase 10 U/L (23-300); Potassium 4.4 mmol/L (3.4-5.1); Sodium 136 mmol/L (137-145); Total Protein 6.9 g/dL (6.3-8.2)
[2019-02-12] MEDS: SODIUM CHLORIDE 0.9% 1,000 ML 1000 ML IV (23:01)
[2019-02-12 23:03] LABS: Add Manual Diff / Slide Review SLIDE REVIEW; Basophils Absolute Auto 100 /uL (0-100); Basophils Percent Auto 1.2 % (0-2); Eosinophils Absolute Auto 200 /uL (0-450); Eosinophils Percent Auto 2.4 % (2-4); Hematocrit 34.5 % (36-46); Hemoglobin 10.3 g/dL (12.0-16.0); Lymphocytes Absolute Auto 1800 /uL (1100-4500); Mean Corpuscular HGB Conc 29.7 % (30-36); Mean Corpuscular Hemoglobin 22.7 PG (26-34); Mean Corpuscular Volume 76.3 fL (80-100); Monocytes Absolute Auto 700 /uL (0-900); Monocytes Percent Auto 6.7 % (3-14); Neutrophils Absolute Auto 7200 /uL (1500-7000); Neutrophils Percent Auto 71.7 % (50-75); Platelet Count 357 X10^3/uL (150-400); Red Blood Cell Count 4.53 X10^6/uL (4.0-5.2); Red Cell Distribution Width 22.9 % (11.6-14.8)
[2019-02-12 23:13] LABS: Troponin I < 0.012 ng/mL (0.01-0.034)
[2019-02-12 23:20] VITALS: BP 95/42; PULSE 72; RESP 18; O2SAT 86
[2019-02-12 23:24] LABS: HCO3 ABG 33 mmol/L (22-26); PCO2 ABG 64.6 mmHg (35-45); PO2 ABG 46 mmHg (80-100); TCO2 ABG 34 mmol/L (21-31); pH ABG 7.31 (7.35-7.45)
[2019-02-12 23:25] LABS: Fractionated Inspired Oxygen 21; Oxygen Saturation ABG 76 % (95-100)
[2019-02-12 23:30] LABS: Anisocytosis 2+; Hypochromasia 1+; Polychromasia 1+
[2019-02-13] VITALS (11 sets, daily range): BP systolic 91–125; BP diastolic 44–73; PULSE 64–85; RESP 14–23; TEMP 36.2–37; O2SAT 92–98; BMI 48.7
[2019-02-13 00:28] LABS: Digoxin 0.9 ng/mL (0.8-2.0)
--- NOTE | 2019-02-13 00:49 | PC.NURSE ---
EMS reports pt states weakness was sitting on toilet and slid down to ground, EMS states they had been at pts home twice earlier in the day for lift assist and are frequently called to pt's home for similar episodes. Pt states her left leg is weak but denies pain. Pt denies JAMES or vision changes.
--- NOTE | 2019-02-13 00:50 | PC.NURSE ---
Med rec attempted pt states she is unaware of what medications she takes and states she takes too many of them.
--- NOTE | 2019-02-13 02:05 | PC.NURSE ---
Addendum entered by Phoebe Holman R.N. 02/13/19 03:49: Pt states she doesn't know her meds or the last times she took them; unable to complete med rec at this time. States her son is coming later today and can help with med list. Original Note: Pt arrived from ED via stretcher. Slider board used to trans. A/O to self, place and situation. Denies pain or discomfort. Sats 89-90% 2L NC, increased oxygen to 2.5L sats now 92%. Briefs changed. Pt up to bedpan but no voids. Oriented to room and call system. Pt verbalized she will call for needs.
--- NOTE | 2019-02-13 02:05 | PM.HP.1 ---
History of Present Illness Date Patient Seen: 02/13/19 Time Patient Seen: 02:05 Chief complaint: Generalized weakness Narrative: The patient is a 68-year-old female who presented to the ED on 02/12/2019 in the 2230 hr via EMS out of concern for weakness and frequent falls. Patient has a tendency to summon EMS after she falls because she is unable to get up on her own. EMS has been at her house on multiple occasions in the past week. Patient herself commented that after certain number of times they have to bring the patient to the hospital. Patient is not a reliable historian. She reports being minimally ambulatory. Reports underlying gait and balance instability, she reports using walker with ambulation. Notes sleeping fairly often, but unable to quantify. ED reported somnolence. Denies dizziness or lightheadedness prior to the falls. Denies symptoms of orthostasis. Denies injury to the head and loss of consciousness. she has not experienced chest pain, palpitations, exertional dyspnea, or peripheral edema. She sleeps upright in a chair. Current 1 pack per day smoker. Patient has a multitude of underlying co-morbidities, such as COPD, chronic respiratory failure with hypoxia and hypercapnia, morbid obesit w/ associated hypoventilation syndrome, atrial fibrillation, chronic anticoagulation, diabetes, and chronic pain with opioid dependence. She does not wear supplemental oxygen or CPAP. Prior records note non-adherence with oxygen therapy; however, patient herself notes that she was told that she does not need to use oxygen or CPAP in the past. Patient receives in-home help (r/t residence up-keep) 5 days a week. Patient also denies fever, chills, abdominal pain, gastrointestinal distress, dysuria, hematuria, new rash, malaise, myalgia, and myopathy. No known recent illness or hospitalizations. Denies contact with ill individuals. Patient is not check her blood sugar or blood pressure at home. She lives on her own and manages her own medications. She lacks awareness of which medications she takes. She is unable to provide adequate account of what she does day-to-day. On initial presentation found to be hypotensive, BP 83/40 mmHg, and hypoxic, SpO2 88%. ED Work-Up VS: T 98.2F, BP 83/40 mmHg, HR 70, RR 18, SpO2 88% on RA EKG, 02/12/19 2253? SR w/ occasional supraventricular premature complexes, low QRS voltage in pre-cordial leads Labs 02/12/19 2238 WBC 10 Hgb 10.3 Plt 357 Na 136 K 4.4 Cl 93 Ca 8.1 CO2 34 AG 10 BUN 17 sCr 0.8 Glu 105 Liver enzymes WNL Alb 3.4 Lipase 10 Trop <0.012 Digoxin 0.9 ABG: pH 7.31 pCO2 64.6 pO2 46 HCO3 33 In ED received 1L NS PMH: HTN, PAF (AC w/ warfarin), chronic respiratory failure with hypoxia and hypercapnia, obesity hypoventilation syndrome, HFpEF, DM 2T, HLD, morbid obesity, Fe deficiency anemia, DDD (lumbar), OA, depression, bladder prolapse, urinary incontinence PSH: Abdominoplasty, gastric bypass FHx: SHx: Lives independently. Walker ambulation. Current everyday smoker. Patient History Medical History Chronic anticoagulation (Acute) Chronic respiratory failure with hypoxia and hypercapnia (Acute) Iron deficiency anemia (Acute) Morbid obesity (Acute) Obesity hypoventilation syndrome (Acute) Atrial fibrillation (Chronic) Depression (Chronic) Diabetes (Chronic) Hyperlipidemia (Chronic) Hypertension (Chronic) Lumbar degenerative disc disease (Chronic) Obesity (Chronic) Osteoarthritis (Chronic) Pneumococcal meningitis (Chronic) Prolapsed bladder (Chronic) Cholelithiasis (Resolved) Fracture of left ankle (Resolved) Inguinal hernia (Resolved) Surgical History History of abdominoplasty (Resolved) History of gastric bypass (Resolved) Social History household members: none Smoking Status: Current every day smoker alcohol intake: former additional social history: lives alone Family & Social History Social History: household members none Tobacco & Substance use: Tobacco type cigarettes Smoking Status Current every day smoker alcohol intake former alcohol intake frequency 0-2 drinks per day Substance Use Type does not use Meds Home Medications Medication Instructions Recorded Confirmed Type aspirin 81 mg PO DAILY 04/12/18 10/05/18 History metformin [Glucophage] 500 mg PO BID 04/12/18 10/05/18 History oxybutynin chloride 10 mg PO DAILY 04/12/18 10/05/18 History ursodiol 300 mg PO BID 04/12/18 10/05/18 History metoprolol succinate 100 mg PO DAILY #30 tab 04/15/18 10/07/18 Rx losartan 50 mg PO DAILY 06/04/18 10/05/18 History digoxin [Digitek] 0.125 mg PO QPM 06/12/18 10/05/18 History diltiazem HCl [Cartia XT] 240 mg PO DAILY 06/12/18 10/05/18 History warfarin 7.5 mg PO QPM 06/17/18 10/05/18 History gabapentin 600 mg PO Q6H 09/04/18 10/05/18 History ipratropium-albuterol [Combivent 1 puff INHALATION Q8H 09/04/18 10/06/18 History Respimat] triamcinolone acetonide 1 applic TOPICAL BID 09/04/18 10/07/18 History atorvastatin 80 mg PO BEDTIME 09/25/18 10/05/18 History hydrocodone-acetaminophen 1 tab PO Q8H PRN 09/25/18 10/05/18 History potassium chloride 10 meq PO DAILY #30 cap 09/25/18 10/07/18 Rx torsemide 1 tab PO BID 09/25/18 10/05/18 History hydrocodone-acetaminophen 1 tab PO Q6H #20 tab 10/08/18 Rx Allergies Allergy/AdvReac Type Severity Reaction Status Date / Time captopril [CAPTOPRIL] Allergy Unknown Verified 09/25/18 14:09 nabumetone [NABUMETONE] Allergy Unknown Rash Verified 09/25/18 14:09 Review of Systems Review of Systems All systems reviewed & are unremarkable except as noted in HPI and below Exam Vital Signs (past 8 hours): - 02/12/19 22:30 02/12/19 23:20 02/13/19 00:00 Temperature 98.2 F Pulse Rate 70 72 69 Respiratory Rate 18 18 23 Blood Pressure 83/40 L Blood Pressure [Right Arm] 95/42 L 91/48 L Pulse Oximetry 88 L 86 L 97 02/13/19 00:30 02/13/19 01:00 02/13/19 02:01 Temperature 97.1 F L Pulse Rate 71 68 64 Respiratory Rate 22 21 18 Blood Pressure 96/52 L Blood Pressure [Right Arm] 95/48 L 94/44 L Pulse Oximetry 98 97 92 Oxygen Delivery Method Nasal Cannula Oxygen Flow Rate 2.5 Narrative Exam Narrative: Constitutional: JONNY. appears older than stated age Neurologic: Awake and alert, oriented to place, not entirely sure why she is getting admitted, states incorrect year (2018), unable to note month, notes correct season and president no focal weakness or facial asymmetry Head: NC, AT Eyes: PERRL, EOMI, no scleral icterus Ears: external ears normal, no otorrhea Nose: external nose normal, no rhinorrhea or epistaxis Throat: dry MM, oropharynx w/o exudate Neck: no masses, lymphadenopathy, or JVD Chest / Respiratory: equal chest rise, unlabored respiratory effort, no tachypnea, + cough (non-productive) coarse upper airways b/l, diminished bases Heart / CV: S1S2 Abdomen / GI: round, NT, ND, + BS, no organomegaly : no suprapubic tenderness, no CVA Peripheral / Vascular: warm to touch, DP and PT pulses palpable, no edema Musc: full ROM of upper extremities, adequate muscle tone and bulk diminished ROM of BLE Skin: no ecchymosis or suspicious lesions / ulcers Objective Labs Result Diagrams: 02/12/19 22:38 02/12/19 22:38 Labs: Laboratory Results - last 24 hr 02/12/19 02/12/19 02/12/19 22:38 22:38 22:38 WBC 10.0 RBC 4.53 Hgb 10.3 L Hct 34.5 L MCV 76.3 L MCH 22.7 L MCHC 29.7 L RDW 22.9 H Plt Count 357 Neut % (Auto) 71.7 Lymph % (Auto) 18.0 L [place] % (Auto) 6.7 Eos % (Auto) 2.4 Baso % (Auto) 1.2 Neut # (Auto) 7200 H Lymph # (Auto) 1800 [place] # (Auto) 700 Eos # (Auto) 200 Baso # (Auto) 100 RBC Morphology See below Polychromasia 1+ H Hypochromasia 1+ H Anisocytosis 2+ H PT 15.8 H INR 1.4 H APTT 34 D ABG pH ABG pCO2 ABG pO2 ABG HCO3 ABG Total CO2 ABG O2 Saturation ABG Base Excess FiO2 Sodium 136 L Potassium 4.4 Chloride 93 L Carbon Dioxide 34 H BUN 17 Creatinine 0.80 Estimated GFR > 60.0 BUN/Creatinine Ratio 21.3 Glucose 105 Calcium 8.1 L Total Bilirubin 0.4 AST 14 ALT 22 Alkaline Phosphatase 76 Troponin I < 0.012 Total Protein 6.9 Albumin 3.4 L Globulin 3.5 Albumin/Globulin Ratio 1.0 Lipase 10 L Digoxin 02/12/19 02/12/19 22:38 23:03 WBC RBC Hgb Hct MCV MCH MCHC RDW Plt Count Neut % (Auto) Lymph % (Auto) [place] % (Auto) Eos % (Auto) Baso % (Auto) Neut # (Auto) Lymph # (Auto) [place] # (Auto) Eos # (Auto) Baso # (Auto) RBC Morphology Polychromasia Hypochromasia Anisocytosis PT INR APTT ABG pH 7.31 L ABG pCO2 64.6 H* ABG pO2 46 L* ABG HCO3 33 H ABG Total CO2 34 H ABG O2 Saturation 76 L* ABG Base Excess 6.0 H FiO2 21 Sodium Potassium Chloride Carbon Dioxide BUN Creatinine Estimated GFR BUN/Creatinine Ratio Glucose Calcium Total Bilirubin AST ALT Alkaline Phosphatase Troponin I Total Protein Albumin Globulin Albumin/Globulin Ratio Lipase Digoxin 0.9 Assessment & Plan Assessment & Plan narrative: [id number] respiratory failure w/ hypoxia and hypercapnia ABG: pH 7.31 pCO2 64.6 pO2 46 HCO3 33 Underlying contributing co-morbidities of COPD, obesity hypoventilation syndrome, use of medications w/ predisposition to respiratory depression, daily smoker Non-compliance with oxygen therapy and CPAP. Multiple previous admissions for similar. S/S: weakness, falls, hypersomnolence Echo limited, 06/12/2018: LV normal in size and systolic function. EF 60-65%. No obvious focal wall motion abnormalities. - ABG with findings for respiratory acidosis, which is chronic, and compensated - supplemental oxygen, maintain SpO2 between 90-94% - repeat ABG in AM; if worse, then will need to be transferred to ICU and placed on BiPap - CXR pending - limit use of RESOURCE DEVELOPMENT MANAGER depressing medications - neuro checks Q4H re: monitor for worsening confusion, somnolence Hypotension, acute, present on admission H/O hypertension. Potentially in the setting of hypovolemia, Na 136, Cl 93, BUN/CR 21 Received 1L NS bolus in ED. BP responsive to fluid resuscitation. - home MDS MANAGER anti-hypertensives Generalized weakness Multi-factorial... debility and deconditioning, hypovolemia, poor adherence to recommended medical / oxygen therapy, morbid obesity, anemia, chronic hypoxia and hypoventilation - Consult d/c planning for SNF placement Metabolic encephalopathy, [id number] ? Baseline mental status is not entirely clear. Metabolic encephalopathy in the setting chronic hypoxia vs. dementia; consider hypoglycemia No overt evidence of an acute infectious process - treat underlying acute condition - supplemental oxygen - consult social work, re: evaluate home safety, ability to live on her own If there is lack of improvement in underlying cognitive state; then, the patient is not safe to return home and live on her own. She lacks awareness of her underlying medical conditions. She has not incapacity to manage her own medications. She appears to have limited involvement in self-care. Nursing staff commented, that previously patient has declined placement services. Patient may be at a point where living independently poses more harm and - check UA and urine drug screen, may straight cath x1 to obtain sample Hypovolemia, acute Not clear if she is on a diuretic, perhaps torsemide, will need to check w/ pharmacy in AM - Received 1L NS in ED PAF, chronic condition, stable Currently in SR (see HPI for EKG summary). Not clear is she is chronically AC w/ warfarin. Previoiusly anti-coagulated w/ coumadin; INR is sub-therapeutic. Per patient she has not missed any does. Not entirely clear how often checks INR or if she is still on coumadin. Previously on digoxin and diltiazem. Patient states that she gets her medications from the drugstore by the hospital - need to verify home medications, discussed w/ RN if still on coumadin, then INR is sub-therapeutic and dose needs to be adjusted accordingly - at this time will continue ASA 81 mg QD - given that patient has frequent falls, need to re-evaluate benefits of anti-coagulation vs. risks of bleeding [id number] Score 5 (age, gender, CHF, HTN, DM) DM 2T, non-insulin dependent BG 107 on presentation. It is unknown if she is having hypoglycemic episodes that may be contributing to her falls. MDS MANAGER on metfromin (need to verify home dose). - Hold MDS MANAGER metformin Consider replacing metformin with another anti-diabetic agent. Metformin associated lactic acidosis is not common; however, this particular patient has underlying tissue hypoperfusion and Perhaps another medication with lesser risks for lactic acidosis would be more ideal. - AC/HS glucose checks, SSI level 1 (insulin na?ve) - Heart healthy, carb consistent diet Tobacco dependence w/ current use, 1 ppd, chronic condition, present on admission Reports trying Chantix in the past for smoking cessation. Notes it to be temporarily effective. Currently no desire to quit smoking, however lacks motivation. - Nicotine patch - Smoking cessation highly encouraged - Tobacco cessation education, ongoing Microcytic hypochromic anemia, stable chronic condition, present on admission Hgb 10.3 MCV 76.3 MCHC 29.7 RDW 22.9. No active s/s of bleeding. - Continue to monitor H/O chronic pain (lumbar spine) and opioid dependence Currently in no pain. - Minimize use of opioids and other RESOURCE DEVELOPMENT MANAGER suppressing medications due to associated risks respiratory depression Morbid obesity - Lifestyle modification and weight reduction encouraged
--- NOTE | 2019-02-13 02:12 | P.HP_ITS ---
History of Present Illness Date Patient Seen: 02/13/19 Time Patient Seen: 02:05 Chief complaint: Generalized weakness Narrative: The patient is a 68-year-old female who presented to the ED on 02/12/2019 in the 2230 hr via EMS out of concern for weakness and frequent falls. Patient has a tendency to summon EMS after she falls because she is unable to get up on her own. EMS has been at her house on multiple occasions in the past week. Patient herself commented that after certain number of times they have to bring the patient to the hospital. Patient is not a reliable historian. She reports being minimally ambulatory. Reports underlying gait and balance instability, she reports using walker with ambulation. Notes sleeping fairly often, but unable to quantify. ED reported somnolence. Denies dizziness or lightheadedness prior to the falls. Denies symptoms of orthostasis. Denies injury to the head and loss of consciousness. she has not experienced chest pain, palpitations, exertional dyspnea, or peripheral edema. She sleeps upright in a chair. Current 1 pack per day smoker. Patient has a multitude of underlying co-morbidities, such as COPD, chronic respiratory failure with hypoxia and hypercapnia, morbid obesit w/ associated hypoventilation syndrome, atrial fi brillation, chronic anticoagulation, diabetes, and chronic pain with opioid dependence. She does not wear supplemental oxygen or CPAP. Prior records note non-adherence with oxygen therapy; however, patient herself notes that she was told that she does not need to use oxygen or CPAP in the past. Patient receives in-home help (r/t residence up-keep) 5 days a week. Patient also denies fever, chills, abdominal pain, gastrointestinal distress, dysuria, hematuria, new rash, malaise, myalgia, and myopathy. No known recent illness or hospitalizations. Denies contact with ill individuals. Patient is not check her blood sugar or blood pressure at home. She lives on her own and manages her own medications. She lacks awareness of which medications she takes. She is unable to provide adequate account of what she does day-to-day. On initial presentation found to be hypotensive, BP 83/40 mmHg, and hypoxic, SpO2 88%. ED Work-Up VS: T 98.2F, BP 83/40 mmHg, HR 70, RR 18, SpO2 88% on RA EKG, 02/12/19 2253? SR w/ occasional supraventricular premature complexes, low QRS voltage in pre-cordial leads Labs 02/12/19 2238 WBC 10 Hgb 10.3 Plt 357 Na 136 K 4.4 Cl 93 Ca 8.1 CO2 34 AG 10 BUN 17 sCr 0.8 Glu 105 Liver enzymes WNL Alb 3.4 Lipase 10 Trop <0.012 Digoxin 0.9 ABG: pH 7.31 pCO2 64.6 pO2 46 HCO3 33 In ED received 1L NS PMH: HTN, PAF (AC w/ warfarin), chronic respiratory failure with hypoxia and hypercapnia, obesity hypoventilation syndrome, HFpEF, DM 2T, HLD, morbid obesity, Fe deficiency anemia, DDD (lumbar), OA, depression, bladder prolapse, urinary incontinence PSH: Abdominoplasty, gastric bypass FHx: SHx: Lives independently. Walker ambulation. Current everyday smoker. Patient History Medical History Chronic anticoagulation (Acute) Chronic respiratory failure with hypoxia and hypercapnia (Acute) Iron deficiency anemia (Acute) Morbid obesity (Acute) Obesity hypoventilation syndrome (Acute) Atrial fibrillation (Chronic) Depression (Chronic) Diabetes (Chronic) Hyperlipidemia (Chronic) Hypertension (Chronic) Lumbar degenerative disc disease (Chronic) Obesity (Chronic) Osteoarthritis (Chronic) Pneumococcal meningitis (Chronic) Prolapsed bladder (Chronic) Cholelithiasis (Resolved) Fracture of left ankle (Resolved) Inguinal hernia (Resolved) Surgical History History of abdominoplasty (Resolved) History of gastric bypass (Resolved) Social History household members: none Smoking Status: Current every day smoker alcohol intake: former additional social history: lives alone Family & Social History Social History: household members none Tobacco & Substance use: Tobacco type cigarettes Smoking Status Current every day smoker alcohol intake former alcohol intake frequency 0-2 drinks per day Substance Use Type does not use Meds Home Medications Medication Instructions Recorded Confirmed Type aspirin 81 mg PO DAILY 04/12/18 10/05/18 History metformin [Glucophage] 500 mg PO BID 04/12/18 10/05/18 History oxybutynin chloride 10 mg PO DAILY 04/12/18 10/05/18 History ursodiol 300 mg PO BID 04/12/18 10/05/18 History metoprolol succinate 100 mg PO DAILY #30 tab 04/15/18 10/07/18 Rx losartan 50 mg PO DAILY 06/04/18 10/05/18 History digoxin [Digitek] 0.125 mg PO QPM 06/12/18 10/05/18 History diltiazem HCl [Cartia XT] 240 mg PO DAILY 06/12/18 10/05/18 History warfarin 7.5 mg PO QPM 06/17/18 10/05/18 History gabapentin 600 mg PO Q6H 09/04/18 10/05/18 History ipratropium-albuterol [Combivent 1 puff INHALATION Q8H 09/04/18 10/06/18 History Respimat] triamcinolone acetonide 1 applic TOPICAL BID 09/04/18 10/07/18 History atorvastatin 80 mg PO BEDTIME 09/25/18 10/05/18 History hydrocodone-acetaminophen 1 tab PO Q8H PRN 09/25/18 10/05/18 History potassium chloride 10 meq PO DAILY #30 cap 09/25/18 10/07/18 Rx torsemide 1 tab PO BID 09/25/18 10/05/18 History hydrocodone-acetaminophen 1 tab PO Q6H #20 tab 10/08/18 Rx Allergies Allergy/AdvReac Type Severity Reaction Status Date / Time captopril [CAPTOPRIL] Allergy Unknown Verified 09/25/18 14:09 nabumetone [NABUMETONE] Allergy Unknown Rash Verified 09/25/18 14:09 Review of Systems Review of Systems All systems reviewed & are unremarkable except as noted in HPI and below Exam Vital Signs (past 8 hours): - 02/12/19 22:30 02/12/19 23:20 02/13/19 00:00 Temperature 98.2 F Pulse Rate 70 72 69 Respiratory Rate 18 18 23 Blood Pressure 83/40 L Blood Pressure [Right Arm] 95/42 L 91/48 L Pulse Oximetry 88 L 86 L 97 02/13/19 00:30 02/13/19 01:00 02/13/19 02:01 Temperature 97.1 F L Pulse Rate 71 68 64 Respiratory Rate 22 21 18 Blood Pressure 96/52 L Blood Pressure [Right Arm] 95/48 L 94/44 L Pulse Oximetry 98 97 92 Oxygen Delivery Method Nasal Cannula Oxygen Flow Rate 2.5 Narrative Exam Narrative: Constitutional: appears older than stated age Neurologic: Awake and alert, oriented to place, not entirely sure why she is getting admitted, states incorrect year (2017), unable to note month, notes correct season and president no focal weakness or facial asymmetry Head: NC, AT Eyes: PERRL, EOMI, no scleral icterus Ears: external ears normal, no otorrhea Nose: external nose normal, no rhinorrhea or epistaxis Throat: dry MM, oropharynx w/o exudate Neck: no masses, lymphadenopathy, or JVD Chest / Respiratory: equal chest rise, unlabored respiratory effort, no tachypnea, + cough (non-productive) coarse upper airways b/l, diminished bases Heart / CV: S1S2 Abdomen / GI: round, NT, ND, + BS, no organomegaly : no suprapubic tenderness, no CVA Peripheral / Vascular: warm to touch, DP and PT pulses palpable, no edema Musc: full ROM of upper extremities, adequate muscle tone and bulk diminished ROM of BLE Skin: no ecchymosis or suspicious lesions / ulcers Objective Labs Result Diagrams: 02/12/19 22:38 02/12/19 22:38 Labs: Laboratory Results - last 24 hr 02/12/19 02/12/19 02/12/19 22:38 22:38 22:38 WBC 10.0 RBC 4.53 Hgb 10.3 L Hct 34.5 L MCV 76.3 L MCH 22.7 L MCHC 29.7 L RDW 22.9 H Plt Count 357 Neut % (Auto) 71.7 Lymph % (Auto) 18.0 L [place] % (Auto) 6.7 Eos % (Auto) 2.4 Baso % (Auto) 1.2 Neut # (Auto) 7200 H Lymph # (Auto) 1800 [place] # (Auto) 700 Eos # (Auto) 200 Baso # (Auto) 100 RBC Morphology See below Polychromasia 1+ H Hypochromasia 1+ H Anisocytosis 2+ H PT 15.8 H INR 1.4 H APTT 34 D ABG pH ABG pCO2 ABG pO2 ABG HCO3 ABG Total CO2 ABG O2 Saturation ABG Base Excess FiO2 Sodium 136 L Potassium 4.4 Chloride 93 L Carbon Dioxide 34 H BUN 17 Creatinine 0.80 Estimated GFR > 60.0 BUN/Creatinine Ratio 21.3 Glucose 105 Calcium 8.1 L Total Bilirubin 0.4 AST 14 ALT 22 Alkaline Phosphatase 76 Troponin I < 0.012 Total Protein 6.9 Albumin 3.4 L Globulin 3.5 Albumin/Globulin Ratio 1.0 Lipase 10 L Digoxin 02/12/19 02/12/19 22:38 23:03 WBC RBC Hgb Hct MCV MCH MCHC RDW Plt Count Neut % (Auto) Lymph % (Auto) Living[place] % (Auto) Eos % (Auto) Baso % (Auto) Neut # (Auto) Lymph # (Auto) Living[place] # (Auto) Eos # (Auto) Baso # (Auto) RBC Morphology Polychromasia Hypochromasia Anisocytosis PT INR APTT ABG pH 7.31 L ABG pCO2 64.6 H* ABG pO2 46 L* ABG HCO3 33 H ABG Total CO2 34 H ABG O2 Saturation 76 L* ABG Base Excess 6.0 H FiO2 21 Sodium Potassium Chloride Carbon Dioxide BUN Creatinine Estimated GFR BUN/Creatinine Ratio Glucose Calcium Total Bilirubin AST ALT Alkaline Phosphatase Troponin I Total Protein Albumin Globulin Albumin/Globulin Ratio Lipase Digoxin 0.9 Assessment & Plan Assessment & Plan narrative: Smngb-rt-spupwzh respiratory failure w/ hypoxia and hypercapnia ABG: pH 7.31 pCO2 64.6 pO2 46 HCO3 33 Underlying contributing co-morbidities of COPD, obesity hypoventilation syndrome, use of medications w/ predisposition to respiratory depression, daily smoker Non-compliance with oxygen therapy and CPAP. Multiple previous admissions for similar. S/S: weakness, falls, hypersomnolence Echo limited, 06/12/2018: LV normal in size and systolic function. EF 60-65%. No obvious focal wall motion abnormalities. - ABG with findings for respiratory acidosis, which is chronic, and compensated - supplemental oxygen, maintain SpO2 between 90-94% - repeat ABG in AM; if worse, then will need to be transferred to ICU and placed on BiPap - CXR pending - limit use of ACCOUNT REVIEW SPECIALIST depressing medications - neuro checks Q4H re: monitor for worsening confusion, somnolence Hypotension, acute, present on admission H/O hypertension. Potentially in the setting of hypovolemia, Na 136, Cl 93, BUN/CR 21 Received 1L NS bolus in ED. BP responsive to fluid resuscitation. 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 debility and deconditioning, hypovolemia, poor adherence to recommended medical / oxygen therapy, morbid obesity, anemia, chronic hypoxia and hypoventilation - Consult d/c planning for SNF placement Metabolic encephalopathy, [id number] ? Baseline mental status is not entirely clear. Metabolic encephalopathy in the setting chronic hypoxia vs. dementia; consider hypoglycemia No overt evidence of an acute infectious process - treat underlying acute condition - supplemental oxygen - consult social work, re: evaluate home safety, ability to live on her own If there is lack of improvement in underlying cognitive state; then, the patient is not safe to return home and live on her own. She lacks awareness of her underlying medical conditions. She has not incapacity to manage her own medications. She appears to have limited involvement in self-care. Nursing staff commented, that previously patient has declined placement services. Patient may be at a point where living independently poses more harm and - check UA and urine drug screen, may straight cath x1 to obtain sample Hypovolemia, acute Not clear if she is on a diuretic, perhaps torsemide, will need to check w/ pharmacy in AM - Received 1L NS in ED PAF, chronic condition, stable Currently in SR (see HPI for EKG summary). Not clear is she is chronically AC w/ warfarin. Previoiusly anti-coagulated w/ coumadin; INR is sub-therapeutic. Per patient she has not missed any does. Not entirely clear how often checks INR or if she is still on coumadin. Previously on digoxin and diltiazem. Patient states that she gets her medications from the drugstore by the hospital - need to verify home medications, discussed w/ RN if still on coumadin, then INR is sub-therapeutic and dose needs to be adjusted accordingly - at this time will continue ASA 81 mg QD - given that patient has frequent falls, need to re-evaluate benefits of anti- coagulation vs. risks of bleeding [id number] Score 5 (age, gender, CHF, HTN, DM) DM 2T, non-insulin dependent BG 107 on presentation. It is unknown if she is having hypoglycemic episodes that may be contributing to her falls. ASSISTANT HOUSEKEEPING MANAGER on metfromin (need to verify home dose). - Hold ASSISTANT HOUSEKEEPING MANAGER metformin Consider replacing metformin with another anti-diabetic agent. Metformin associated lactic acidosis is not common; however, this particular patient has underlying tissue hypoperfusion and Perhaps another medication with lesser risks for lactic acidosis would be more ideal. - AC/HS glucose checks, SSI level 1 (insulin na?ve) - Heart healthy, carb consistent diet Tobacco dependence w/ current use, 1 ppd, chronic condition, present on admission Reports trying Chantix in the past for smoking cessation. Notes it to be temporarily effective. Currently no desire to quit smoking, however lacks motivation. - Nicotine patch - Smoking cessation highly encouraged - Tobacco cessation education, ongoing Microcytic hypochromic anemia, stable chronic condition, present on admission Hgb 10.3 MCV 76.3 MCHC 29.7 RDW 22.9. No active s/s of bleeding. - Continue to monitor H/O chronic pain (lumbar spine) and opioid dependence Currently in no pain. - Minimize use of opioids and other ACCOUNT REVIEW SPECIALIST suppressing medications due to associated risks respiratory depression Morbid obesity - Lifestyle modification and weight reduction encouraged
[2019-02-13 05:29] LABS: RBC Urine None Seen (0-5/HPF); WBC Urine None Seen (0-5/HPF)
[2019-02-13 05:30] LABS: Bilirubin Urine UA NEGATIVE (NEGATIVE); Color Urine UA YELLOW; Glucose Urine UA NEGATIVE (Negative); Ketones Urine UA NEGATIVE (NEGATIVE); Leukocyte Esterase Urine UA NEGATIVE (NEGATIVE); Nitrite Urine UA NEGATIVE (Negative); Occult Blood Urine UA NEGATIVE (Negative); Protein Urine UA NEGATIVE (Negative); Urobilinogen Urine UA 0.2 E.U./dL (0.2)
[2019-02-13 05:46] LABS: Urine Amphetamines Negative (Negative); Urine Barbiturates Negative (Negative); Urine Benzodiazepines Negative (Negative); Urine Cocaine Negative (Negative); Urine MDMA Negative (Negative); Urine Methadone Negative (Negative); Urine Methamphetamines Negative (Negative); Urine Morphine/Opi cutoff 2000 Negative (Negative); Urine Oxycodone Negative (Negative); Urine Phencyclidine Negative (Negative); Urine Tetrahydrocannabinol Negative (Negative); Urine Tricyclic Antidepressant Negative (Negative)
[2019-02-13 06:06] LABS: Amorphous Sediment Urine 3+; Bacteria Urine Moderate (10-30); Culture Indicated Urine Specimen Cultured
[2019-02-13 06:07] LABS: Appearance Urine UA Slightly Cloudy
[2019-02-13] MEDS: HEPARIN 5,000 UNIT/ML VIAL 5000 UNIT SUBCUT ×2 (09:12→21:05)
[2019-02-13] MEDS: NICOTINE 21 MG PATCH TOP (09:12)
[2019-02-13] MEDS: SODIUM CHLORIDE 0.9% FLUSH 10 ML IV ×2 (09:19→21:06)
--- NOTE | 2019-02-13 10:09 | CM.DANOTE ---
DCP: Case received, EMR reviewed and met with patient. Introduced self and role. DCP template completed with information currently available. Patient is a 68 year old female who admitted early this morning to the care of the hospitalist team. PCP: Dr. Saini. Payer: confirmed; [place]/Medicaid. Patient came to hospital via ambulance due to ground level fall. Patient has had frequent falls at home, and has had to call 911 to assist her getting up. She has [facility] caregivers come in daily, and she has history of non-compliance with meds. She smokes, and according to daughter, Brionna, has been smoking in the bathroom at her apartment, which is non-smoking. Daughter, Brionna is POA, her number is: [phone]. Shreyas, son, is also POA. His number is: [phone]. Received information from her daughter, Brionna. Patient alert, somewhat confused at times. Daughter stated that she is supposed to see a neurologist in February, to see if she has dementia. Stated that her adult protective caseworker is Jessa Jackson at [facility]. She stated that she wishes to discuss prison placement for her. Her daughter feels that skilled would be best for her for now, but unsure if [facility] will accept her, due to non-compliance with smoking. Hospitalist, Dr. Sanchez, agrees that patient should be in skilled facility. P: DCP to continue to follow closely, and look at possible [facility]. She has [facility], and would need authorization. Will meet up with daughter today. Iman Allen RN/Negotiations Director
--- NOTE | 2019-02-13 11:19 | OT.IP.TRT ---
Occupational Therapy Treatment Note M3 OT- IP Subjective and Pain Start: 02/13/19 11:18 Freq: Status: Active Protocol: Document 02/13/19 11:18 [facility] (Rec: 02/13/19 11:19 [facility] [id number]) OT- Subjective Occupational Therapy Visit Type Type Patient Unavailable Notes Pt getting IV placed, therefore to check on pt on PM .
[2019-02-13 11:39] LABS: pH ABG 7.35 (7.35-7.45)
[2019-02-13 11:40] LABS: PCO2 ABG 63.1 mmHg (35-45); PO2 ABG 64 mmHg (80-100)
[2019-02-13 11:41] LABS: HCO3 ABG 35 mmol/L (22-26); Oxygen Saturation ABG 90 % (95-100); TCO2 ABG 37 mmol/L (21-31)
--- NOTE | 2019-02-13 11:48 | PT.IIE ---
Surgical History (Last Reviewed 02/13/19 @ 03:10 by LYNNE Anaya) History of abdominoplasty (Resolved) History of gastric bypass (Resolved) Medical History (Last Reviewed 02/13/19 @ 03:10 by LYNNE Anaya) Chronic anticoagulation (Acute) Chronic respiratory failure with hypoxia and hypercapnia (Acute) Iron deficiency anemia (Acute) Morbid obesity (Acute) Obesity hypoventilation syndrome (Acute) Atrial fibrillation (Chronic) Depression (Chronic) Diabetes (Chronic) Hyperlipidemia (Chronic) Hypertension (Chronic) Lumbar degenerative disc disease (Chronic) Obesity (Chronic) Osteoarthritis (Chronic) Pneumococcal meningitis (Chronic) Prolapsed bladder (Chronic) Cholelithiasis (Resolved) Fracture of left ankle (Resolved) Inguinal hernia (Resolved) Physical Therapy Inpatient Evaluation/Re-Eval M1 PT/OT-IP Prior Functional Status Start: 02/13/19 09:10 Freq: NEEDED Status: Active Protocol: Document 02/13/19 09:15 [facility] (Rec: 02/13/19 11:47 [facility] [id number]) Medical Review Prior Functional Status Medical History Reviewed Yes Mobility and Gait Independent but limited to household, no regular exercise besides household walking Activities of Daily Living and IADL's help in the home 5 days per week including for dressing and bathing Social History Household Members none Living Arrangements Apartment/Condo Number of Floors (Floors) One Floor Number of Stairs To Enter/Railing? 0 Home Environment Standard Height Toilet Tub/Shower Home Equipment Four Wheel Walker Shower Seat with Backrest Grab Bars Near Toilet Grab Bars In Shower M1 PT/OT-IP Prior Functional Status Start: 02/13/19 11:18 Freq: NEEDED Status: Active Protocol: Document 02/13/19 09:15 [facility] (Rec: 02/13/19 11:47 [facility] [id number]) M2 PT-IP Current Condition Start: 02/13/19 09:10 Freq: NEEDED Status: Active Protocol: Document 02/13/19 09:15 [facility] (Rec: 02/13/19 11:47 [facility] [id number]) Physical Therapy Current Condition Current Condition Evaluation Date 02/13/19 Treatment Diagnosis weakness, frequent falls Onset Date 02/12/19 Weight Bearing Status Weight Bearing Status Full Weight Bearing M3 PT-IP Subjective Start: 02/13/19 09:10 Freq: NEEDED Status: Active Protocol: Document 02/13/19 09:15 [facility] (Rec: 02/13/19 11:47 [facility] [id number]) Subjective Physical Therapy Visit Type Type Initial Evaluation Visit Start Time 09:15 Visit Stop Time 09:40 Total Visit Minutes 25 Number of WARPER TENDER Visits 0 Physical Therapy Visit Comments Patient Comments Reports she is going to go home as soon as she can. Patient Goals Return home Therapy Pain Assessment Pain When Pain Assessed During Mobility Pain Present Pain Present Pain Reported Location óscar knees Intensity 4 Description Aching With Movement Pain Behaviors Calling Out M4 PT-IP Mobility and Gait Start: 02/13/19 09:10 Freq: NEEDED Status: Active Protocol: Document 02/13/19 09:15 [facility] (Rec: 02/13/19 11:47 [facility] [id number]) PT-Bed Mobility Assessment Supine to Sit Supine to Sit Standby Assistance Head of Bed Elevated Scooting Scooting to Edge of Bed Standby Assistance PT-Transfer Assessment Sit to and From Stand Sit to and from Stand Minimal Assistance 1 Person Assistance Use of Upper Extremities Equipment Transfer Assistive Device 4 Wheeled Walker Transfers Transfer Destination Chair Transfer Technique Stand Step Pivot Transfer Ability Level of Assist Minimal Assistance Comments Mobility Comments severely forward bent at waist , leaning onto walker. Refused ambulation: not feeling up to it. Gait Assessment Comments Gait Comments NA: refused PT-Balance Assessment Sitting Balance and Reactions Static Sitting Balance Ability Fair Dynamic Sitting Balance Ability Fair Standing Balance and Reactions Dynamic Standing Balance Ability Fair Comments Other Balance Tests/Deviations/Treatment leaning on walker. Unable to : do any standardized testing due to weakness. M5 PT-IP Objective Assessments Start: 02/13/19 09:10 Freq: NEEDED Status: Active Protocol: Document 02/13/19 09:15 [facility] (Rec: 02/13/19 11:47 [facility] [id number]) Gross Range of Motion Upper Extremity ROM Assessment Within Functional Limits Lower Extremity ROM Assessment Within Functional Limits Strength Upper Extremity Strength Assessment Within Functional Limits Lower Extremity Strength Assessment Bilaterally Impaired Comments Strength Comments Refused testing; too tired. Has active antigravity ankle dorsiflexion and knee extension. M6 PT-IP Treatment Start: 02/13/19 09:10 Freq: NEEDED Status: Active Protocol: Document 02/13/19 09:15 [facility] (Rec: 02/13/19 11:47 [facility] [id number]) Physical Therapy Treatment Education Education Provided Safety M7 PT-IP Assessment and Plan Start: 02/13/19 09:10 Freq: NEEDED Status: Active Protocol: Document 02/13/19 09:15 [facility] (Rec: 02/13/19 11:47 [facility] [id number]) PT Summary Assessment and Plan Potential Rehabilitation Potential Fair Status of Condition at Evaluation Evolving Summary Impairments Strength Transfers Gait Activity Tolerance Assessment Summary Patient presents with low tolerance for activity, demonstrates signficant functional weakness with mobility skills and refused gait this am due to fatigue. Due to these impairments as well as frequent falls in the home requiring EMS feel this patient would benfit from SNF rehab at discharge from the hospital. Goals Bed Mobility Goal Independent Transfer Goal Independent Gait Goal Independent Four Wheel Walker Gait Distance 50ft Days to Meet Goals 3 Frequency of Treatment Frequency Of Treatment Twice a Day Treatment Plan Physical Therapy Treatment Plan Transfer Training Gait Training Therapeutic Exercise Balance Retraining Discharge Planning Other Recommendations and Next Treatment Gait training as able, LE Focus strengthening. Recommendations To Nursing Amount of Assist Needed 1 Person Assist Discharge Recommendations PT Discharge Recommendations SNF Rehab
--- NOTE | 2019-02-13 14:00 | PT.IPTN ---
Physical Therapy Treatment Note M2 PT-IP Current Condition Start: 02/13/19 09:10 Freq: NEEDED Status: Active Protocol: Document 02/13/19 09:15 SAK (Rec: 02/13/19 11:47 SAK [id number]) Physical Therapy Current Condition Current Condition Evaluation Date 02/13/19 Treatment Diagnosis weakness, frequent falls Onset Date 02/12/19 Weight Bearing Status Weight Bearing Status Full Weight Bearing M3 PT-IP Subjective Start: 02/13/19 09:10 Freq: NEEDED Status: Active Protocol: Document 02/13/19 14:00 GGD (Rec: 02/13/19 15:28 GGD [email or web address]) Subjective Physical Therapy Visit Type Type Treatment Note Visit Start Time 13:35 Visit Stop Time 14:00 Total Visit Minutes 25 Number of DEXTRINE MIXER Visits 1 Physical Therapy Visit Comments Patient Comments Pt states she is tired. M4 PT-IP Mobility and Gait Start: 02/13/19 09:10 Freq: NEEDED Status: Active Protocol: Document 02/13/19 14:00 GGD (Rec: 02/13/19 15:28 GGD [id number]) PT-Bed Mobility Assessment Sit to Supine Sit to Supine Contact Guard Assistance Bedrails Scooting Scooting to Edge of Bed Standby Assistance PT-Transfer Assessment Sit to and From Stand Sit to and from Stand Minimal Assistance 1 Person Assistance Use of Upper Extremities Equipment Transfer Assistive Device 4 Wheeled Walker Transfers Transfer Destination Bed Transfer Ability Level of Assist Minimal Assistance Comments Mobility Comments forward bent at waist, leaning onto walker Gait Assessment Gait Gait Assistance Required: Minimum Assistance 1 Person Assist Distance (Feet) 20 Assistive Devices Assistive Device Gait Belt 4 Wheeled Walker Gait Deviations General Gait Pattern Decreased Stride Length Decreased Feet Clearance Flexed Trunk Wide Based Gait Factors Limiting Gait Function Factors Limiting Gait Function Decreased Sensation Decreased Strength Pain Poor Balance Poor Safety Awareness Respiratory Distress Comments Gait Comments O2 on 2 L with activity 88-93% ambulated 10 feet x 2 with seated rest break. M5 PT-IP Objective Assessments Start: 02/13/19 09:10 Freq: NEEDED Status: Active Protocol: Document 02/13/19 09:15 SAK (Rec: 02/13/19 11:47 SAK [id number]) Gross Range of Motion Upper Extremity ROM Assessment Within Functional Limits Lower Extremity ROM Assessment Within Functional Limits Strength Upper Extremity Strength Assessment Within Functional Limits Lower Extremity Strength Assessment Bilaterally Impaired Comments Strength Comments Refused testing; too tired. Has active antigravity ankle dorsiflexion and knee extension. M6 PT-IP Treatment Start: 02/13/19 09:10 Freq: NEEDED Status: Active Protocol: Document 02/13/19 09:15 SAK (Rec: 02/13/19 11:47 SAK [id number]) Physical Therapy Treatment Education Education Provided Safety M7 PT-IP Assessment and Plan Start: 02/13/19 09:10 Freq: NEEDED Status: Active Protocol: Document 02/13/19 14:00 GGD (Rec: 02/13/19 15:28 GGD [email or web address]) PT Summary Assessment and Plan Summary Assessment Summary Pt need min a for sit to stand . She needed seated rest break after 10 feet of gait. She would benefit from SNF to improved functional mobility and safety at home. Frequency of Treatment Frequency Of Treatment Twice a Day Treatment Plan Physical Therapy Treatment Plan Transfer Training Gait Training Therapeutic Exercise Balance Retraining Discharge Planning Recommendations To Nursing Amount of Assist Needed 1 Person Assist Discharge Recommendations PT Discharge Recommendations SNF Rehab
--- NOTE | 2019-02-13 14:10 | OT.IP.EVAL ---
Past Medical History (Last Reviewed 02/13/19 @ 03:10 by LYNNE Anaya) Chronic anticoagulation (Acute) Chronic respiratory failure with hypoxia and hypercapnia (Acute) Iron deficiency anemia (Acute) Morbid obesity (Acute) Obesity hypoventilation syndrome (Acute) Atrial fibrillation (Chronic) Depression (Chronic) Diabetes (Chronic) Hyperlipidemia (Chronic) Hypertension (Chronic) Lumbar degenerative disc disease (Chronic) Obesity (Chronic) Osteoarthritis (Chronic) Pneumococcal meningitis (Chronic) Prolapsed bladder (Chronic) Cholelithiasis (Resolved) Fracture of left ankle (Resolved) Inguinal hernia (Resolved) Surgical History (Last Reviewed 02/13/19 @ 03:10 by LYNNE Anaya) History of abdominoplasty (Resolved) History of gastric bypass (Resolved) Occupational Therapy Inpatient Evaluation/Re-Eval M1 PT/OT-IP Prior Functional Status Start: 02/13/19 11:18 Freq: NEEDED Status: Active Protocol: Document 02/13/19 13:44 [facility] (Rec: 02/13/19 14:10 [facility] [id number]) Medical Review Prior Functional Status Medical History Reviewed Yes Mobility and Gait Independent but limited to household, no regular exercise besides household walking Activities of Daily Living and IADL's help in the home 5 days per week including for dressing and bathing. Pt states can dress herself and uses the toilet on her own. Pt states since she has difficulty to wipe her after bowel movement will just go to her bed to lie down and wipe. Social History Household Members none Living Arrangements Apartment/Condo Number of Floors (Floors) One Floor Number of Stairs To Enter/Railing? 0 Home Environment Standard Height Toilet Tub/Shower Home Equipment Four Wheel Walker Shower Seat with Backrest Grab Bars Near Toilet Grab Bars In Shower M2 OT-IP Current Condition Start: 02/13/19 11:18 Freq: Status: Active Protocol: Document 02/13/19 13:44 [facility] (Rec: 02/13/19 14:10 [facility] [id number]) Occupational Therapy Current Condition Current Condition Evaluation Date 02/13/19 Treatment Diagnosis Acute respiratory failure with hypoxia Diagnosis Onset Date 02/13/19 M3 OT- IP Subjective and Pain Start: 02/13/19 11:18 Freq: Status: Active Protocol: Document 02/13/19 13:44 [facility] (Rec: 02/13/19 14:10 [facility] [id number]) OT- Subjective Occupational Therapy Visit Type Type Initial Evaluation Visit Start Time 13:00 Visit Stop Time 13:40 Total Visit Minutes 40 Occupational Therapy Visit Comments Patient Comments Pt agreeable to get up and use the commode. Patient/Caregiver Goals Pt wanting to go home. OT Pain Assessment Pain When Pain Assessed At Rest Pain Present Pain Present Denied Pain M4 OT- IP ADL's Start: 02/13/19 11:18 Freq: Status: Active Protocol: Document 02/13/19 13:44 [facility] (Rec: 02/13/19 14:10 [facility] [id number]) OT ADL-Grooming General Evaluation Grooming Ability Standby Assistance Comments OT Grooming Comments Pt able to wash her face and hands while sitting on the commode with set-up assist. OT ADL-Dressing General Eval Lower Body Dressing Ability Moderate Assistance Comments OT Dressing Comments Pt already had her socks on , pt needing assist to help pull up brief up and over her hips. Pt was able to lean forwards with much effort to quyen brief over her feet. Pt's O2 reading dropped to 88% on 2L OT ADL-Toileting General Evaluation Toileting Ability Moderate Assistance Areas Needing Assistance Manage Clothing Perform Perineal Hygiene Devices Toileting Assistive Devices Commode Comments OT Toileting Comments Pt needing assist for brief and completeness for pericare needs. Suggested and educated pt on toilet aid that maybe helpful for pt to do her own pericare needs. M5 OT- IP IADL's Start: 02/13/19 11:18 Freq: Status: Active Protocol: Document 02/13/19 13:44 [facility] (Rec: 02/13/19 14:10 [facility] [id number]) OT-Instrumental Activities of Daily Living Meal Preparation Meal Preparation Caregiver Provides Assist Gate Manager Gate Manager Caregiver Provides Assist M6 OT- IP Functional Cognition Start: 02/13/19 11:18 Freq: Status: Active Protocol: Document 02/13/19 13:44 [facility] (Rec: 02/13/19 14:10 [facility] [id number]) Cognitive Factors Limiting Selfcare Function Cognitive Ability Level of Alertness Alert Patient Orientation Name Place Situation Attention Span Ability Capable of Focused Attention Capable of Sustained Attention Ability to Follow Commands Able to Follow One Step Commands Memory Description Short Term Impaired Safety Awareness Underestimates Need for Assistance Problem Solving Ability Unable to Identify Errors Needs Assist to Identify Solutions Cognitive Comments Cognitive Assessment Comments Pt not realistic of needs and feels that she can go home. Pt 's bathroom is out her bedroom and across the hallway. Pt at this time needing ELIZ for balance and just only able to transfer at this time to BSC and O2 readings drops on 2L to 88%. Pt states, I have done it before I do not see why I can't do it again. I do not need a BSC, I have been doing it at home. To do formal cognitive assessment tomorrow. OT- Vision and Hearing OT- Hearing Assessment OT- Hearing Assessment WFL OT- Vision Assessment Vision Assessment Comments Pt able to see the clock and wears glasses. M7 OT- IP Mobility and Balance Start: 02/13/19 11:18 Freq: Status: Active Protocol: Document 02/13/19 13:44 [facility] (Rec: 02/13/19 14:10 [facility] [id number]) OT- Bed Mobility Assessment Rolling Type of Rolling Roll to Left Level of Assistance Bedrails Supine to Sit Supine to Sit Assist Standby Assistance Moderate Assistance Bedrails Scooting Scooting to Edge of Bed Standby Assistance 1 Person Assistance OT-Transfer Assessment Sit to and From Stand Sit to and from Stand Contact Guard Assistance Minimal Assistance 1 Person Assistance Transfers Transfer Ability Minimal Assistance 1 Person Assistance Technique Transfer Destination Bedside Commode Chair Transfer Technique Stand Step Pivot Devices Transfer Assistive Devices Gait Belt 4 Wheeled Walker Comments Mobility Comments Pt able to get up with much effort with use of bed rail , however pt does not have a bedrail at home therefore needing MODA for bed mobility at this time. Pt did admit needing more assist now. Pt tends to stand with very flexed posture and heavily leans for forearms of the 4ww. OT- Balance Assessment Sitting Balance and Reactions Static Sitting Balance Ability Normal Dynamic Sitting Balance Ability Good Standing Balance and Reactions Static Standing Balance Ability Poor Dynamic Standing Balance Ability Poor M8 OT- IP Objective Assessments Start: 02/13/19 11:18 Freq: Status: Active Protocol: Document 02/13/19 13:44 [facility] (Rec: 02/13/19 14:10 [facility] [id number]) OT Gross Range of Motion Upper Extremity Range of Motion Assessment Right Impaired ROM Impairments LUE WFL RUE instead of shoulder flexion tends to compensate with shoulder scaption. OT Strength Comments Strength Comments RUE from proximal to distal 3- /5 to 3+/5, LUE 4-/5. M9 OT- IP Assessment and Plan Start: 02/13/19 11:18 Freq: Status: Active Protocol: Document 02/13/19 13:44 [facility] (Rec: 02/13/19 14:10 [facility] [id number]) OT Summary Assessment and Plan Potential Rehabilitation Potential Good Analytic Complexity at Evaluation Low Summary OT Impairments Range of Motion Strength Balance Functional Cognition Functional Mobility Grooming Dressing Toileting Bathing Toilet Transfers Shower Transfers Progress Towards Goals Slow Progress due to Medical Issues Slow Progress due to Activity Tolerance Slow Progress due to Cognition Assessment Summary Pt low complexity and main barrier is decreased activity tolerance, needing more assist for ADL's, decreased balance and safety awareness and would benefit from skilled rehab at this time and if going home after rehab will need increased assist versus go to a facility with assistance provided. Pt is a high fall risk. Goals Grooming Goal Standby Assistance Dressing Goal Standby Assistance Toileting Goal Minimal Assistance Bathing Goal Minimal Assistance Grab Bars Hand Held Shower Sprayer Toilet Transfer Goal Standby Assistance Bedside Commode Grab Bars Shower Transfer Goal Minimal Assistance Tub Transfer Bench Grab Bars Days to Meet Goals 7 Frequency of Treatment Frequency Of Treatment Once a Day Treatment Plan OT Treatment Plan ADL Training Functional Cognition Training Functional Mobility Patient/Family Education Discharge Planning Other Treatment Recommendations and Next Stand for grooming needs, re- Treatment Focus educate for toileting needs. Discharge Recommendations OT Discharge Recommendations SNF Rehab Home Equipment Needs [facility] [place]
--- NOTE | 2019-02-13 15:19 | CM.DPC ---
Addendum entered by Iman Allen R.N. 02/13/19 15:48: Tried [facility] as well, for they also take Medicaid. Jessa, social science research assistant at [facility], encouraged to have patient go to facility that takes Medicaid, which madalyn does. In this perspective, they can keep her until family is able to get her into regional intermodal truck driver care facility, such as [facility]. Faxed information (clinicals) to admission at [facility], Attn: Calista. She had already left, so was unable to talk to her. At this time, there are two pending referrals. [facility] and [facility], for [facility] had not accepted patient. Original Note: DCP Cont: Had care conference with patient's daughter, Brionna, and her . She has continued to voice concerns about her mother returning home. She stated, her mom really can't go back home, she's not safe, not taking her medications, and is smoking in her apartment. Patient is on Coumadin, and daughter is not sure when she has seen her provider last. She is unsure if she is taking her Coumadin. She is looking for regional intermodal truck driver placement for patient, but patient has refused. Jessa Jackson at [facility] is her social science research assistant, and has been working with patient. Jessa's number is: [phone]. Let daughter know that if she is decisional, she has the right to return home, for patient has refused facilities up to now. Daughter stated that she would talk to her mother. Spoke to Jesús at [facility], and he stated that they could not accept her back, due to her smoking and taking items from rooms. Updated Brionna, daughter. She is requesting to try a facility in [place], for her daughter lives in the [place] area. Found [facility]. Called facility. Beth is in admissions. her phone number is: [phone]. Left her a message regarding potential referral, and went ahead and faxed face sheet and clinicals to facility. Updated daughter that this was done. Jessa from [facility] called. Stated that patient has refused to go to facilities. Previously, daughter was trying to get her on a waiting list for [facility] while she was recently at skilled, and she refused. Jessa stated that there have already been APS visits, and patient has wanted to stay at home. She stated that she continues to communicate directly to patient. She stated that if she decides to go to regional intermodal truck driver facility, she can help with placement. Let her know that now, [facility] is priority. Brionna stated that she spoke to her mother and she stated that she may be willing to go to a facility. Let her know, would follow up with John. If this facility does not take, will have to try an alternate one. P: Continue to attempt getting patient into [facility], if she will allow. Second alternative is to go home and initiate home health. Iman Allen RN/Science Education Professor
--- NOTE | 2019-02-13 17:17 | PC.NURSE ---
Pt has continuos pulse ox, 96% NC 2 liters, bilateral expiratory rhonchi. Pt has a hard time following directions and appears to be paranoid about what is being done in her room. Pt is on tele w/ normal sinus rhythm, has bilaterally LL edema 1+. Pt has bilateral foot and hand neuropathy.
--- NOTE | 2019-02-13 17:35 | PM.EVENT ---
Date Patient Seen: 02/13/19 Patient seen and examined. No further orders written at this time. Proceed with plan as outlined by Tasneem.
[2019-02-14] VITALS (11 sets, daily range): BP systolic 111–145; BP diastolic 65–79; PULSE 64–92; RESP 16–20; TEMP 36.3–36.8; O2SAT 87–99
--- NOTE | 2019-02-14 06:31 | PC.NURSE ---
NOC SHIFT- Patient with strong cough this shift. Sounding congested. Rhonchi throughout lung kruger. Patient denies pain. Patient sleeping in the sitting up position in bed. Nasal cannula oxygen in place with good effect. Patient cooperative. No acute distress.
[2019-02-14] MEDS: HEPARIN 5,000 UNIT/ML VIAL 5000 UNIT SUBCUT ×2 (10:42→20:35)
[2019-02-14] MEDS: NICOTINE 21 MG PATCH TOP (10:42)
[2019-02-14] MEDS: SODIUM CHLORIDE 0.9% FLUSH 10 ML IV ×2 (10:43→20:37)
--- NOTE | 2019-02-14 11:58 | PM.PN.1 ---
Subjective Date Patient Seen: 02/14/19 Interval history: The patient is a 68-year-old female with chronic hypoxic respiratory failure, and multiple comorbidities who was admitted to the hospital for frequent falls. Patient today feels that she can go home. However she has not yet worked with physical therapy or occupational therapy. She has spoken to her daughter and is agreeable to going to assisted living facility. She has no specific complaints today. Recommendation was made for the patient to continue further therapy with PT OT ultimately to transfer to skilled rehab with then plans for assisted living subsequently. The patient appeared to be agreeable to that plan. Exam Vital Signs (past 8 hours): - 02/14/19 07:40 02/14/19 08:00 02/14/19 09:02 Temperature 97.8 F Pulse Rate 83 Respiratory Rate 16 Blood Pressure 130/79 Pulse Oximetry 99 93 87 L 02/14/19 11:31 Temperature 97.5 F L Pulse Rate 85 Respiratory Rate 16 Blood Pressure 111/65 Pulse Oximetry 91 Oxygen Delivery Method Room Air Oxygen Flow Rate 2 Narrative Exam Narrative: Obese female resting comfortably in no acute distress Lungs: Decreased breath sounds bilaterally Cardiac exam: Regular rate rhythm normal S1 and S2 Abdomen: Soft nontender nondistended Extremities: Trace edema Objective Labs Result Diagrams: 02/12/19 22:38 02/12/19 22:38 Assessment & Plan (1) Acute and chronic respiratory failure with hypoxia: Problem details: Patient will continue oxygen here in the hospital. Will continue her usual Combivent inhalers., present on admission Current visit: No Status: Acute (2) Type 2 diabetes mellitus: Problem details: Type 2 diabetes, present on admission will hold her metformin cover her with basal bolus insulin in the hospital Current visit: No Status: Acute (3) Morbid obesity: Current visit: No Status: Acute (4) Paroxysmal atrial fibrillation: Problem details: Patient currently is in sinus rhythm. Will continue to monitor her closely. She remains on Coumadin. Current visit: Yes Status: Acute (5) Weakness: Problem details: Patient needs physical therapy occupational therapy. In addition likely will need and benefit from post acute rehab. Ultimately she will need assisted living long-term. Current visit: Yes Status: Acute (6) Adult failure to thrive: Problem details: Assisted-living long-term as above. Current visit: No Status: Acute Quality VTE Deep Vein Thrombosis/Pulmonary Embolism Present on Admission: No
--- NOTE | 2019-02-14 12:01 | P.PN_ITS ---
Subjective Date Patient Seen: 02/14/19 Interval history: The patient is a 68-year-old female with chronic hypoxic r espiratory failure, and multiple comorbidities who was admitted to the hospital for frequent falls. Patient today feels that she can go home. However she has not yet worked with physical therapy or occupational therapy. She has spoken to her daughter and is agreeable to going to assisted living facility. She has no specific complaints today. Recommendation was made for the patient to continue further therapy with PT OT ultimately to transfer to skilled rehab with then plans for assisted cecilio ng subsequently. The patient appeared to be agreeable to that plan. Exam Vital Signs (past 8 hours): - 02/14/19 07:40 02/14/19 08:00 02/14/19 09:02 Temperature 97.8 F Pulse Rate 83 Respiratory Rate 16 Blood Pressure 130/79 Pulse Oximetry 99 93 87 L 02/14/19 11:31 Temperature 97.5 F L Pulse Rate 85 Respiratory Rate 16 Blood Pressure 111/65 Pulse Oximetry 91 Oxygen Delivery Method Room Air Oxygen Flow Rate 2 Narrative Exam Narrative: Obese female resting comfortably in no acute distress Lungs: Decreased breath sounds bilaterally Cardiac exam: Regular rate rhythm normal S1 and S2 Abdomen: Soft nontender nondistended Extremities: Trace edema Objective Labs Result Diagrams: 02/12/19 22:38 02/12/19 22:38 Assessment & Plan (1) Acute and chronic respiratory failure with hypoxia: Problem details: Patient will continue oxygen here in the hospital. Will continue her usual Combivent inhalers., present on admission Current visit: No Status: Acute (2) Type 2 diabetes mellitus: Problem details: Type 2 diabetes, present on admission will hold her metformin cover her with basal bolus insulin in the hospital Current visit: No Status: Acute (3) Morbid obesity: Current visit: No Status: Acute (4) Paroxysmal atrial fibrillation: Problem details: Patient currently is in sinus rhythm. Will continue to monitor her closely. She remains on Coumadin. Current visit: Yes Status: Acute (5) Weakness: Problem details: Patient needs physical therapy occupational therapy. In addition likely will need and benefit from post acute rehab. Ultimately she will need assisted living long-term. Current visit: Yes Status: Acute (6) Adult failure to thrive: Problem details: Assisted-living long-term as above. Current visit: No Status: Acute Quality VTE Deep Vein Thrombosis/Pulmonary Embolism Present on Admission: No
[2019-02-14] MEDS: INSULIN ASPART 100 UNIT/ML INSULN PEN SUBCUT ×2 (13:31→16:55)
[2019-02-14] MEDS: levoFLOXacin 250 MG TABLET PO (13:31)
--- NOTE | 2019-02-14 14:08 | OT.IP.TRT ---
Current Diagnoses Type 2 diabetes mellitus without complications (02/13/19) Morbid (severe) obesity due to excess calories (02/13/19) Paroxysmal atrial fibrillation (02/13/19) Acute and chronic respiratory failure with hypoxia (02/13/19) Weakness (02/13/19) Adult failure to thrive (02/13/19) Occupational Therapy Treatment Note M2 OT-IP Current Condition Start: 02/13/19 11:18 Freq: Status: Active Protocol: Document 02/13/19 13:44 [facility] (Rec: 02/13/19 14:10 [facility] [id number]) Occupational Therapy Current Condition Current Condition Evaluation Date 02/13/19 Treatment Diagnosis Acute respiratory failure with hypoxia Diagnosis Onset Date 02/13/19 M3 OT- IP Subjective and Pain Start: 02/13/19 11:18 Freq: Status: Active Protocol: Document 02/14/19 14:04 [facility] (Rec: 02/14/19 14:08 [facility] [id number]) OT- Subjective Occupational Therapy Visit Type Type Patient Refusal Notes Able to clarify with pt that she has a tub bench at home and gave information regarding toilet aid. Pt states just got back in bed from sitting up in the recliner and not wanting to do OT at this time. Educated pt the importance of doing therapy, pt states, I know. Spoke to [employer] regarding trying to have set schedule for pt.
--- NOTE | 2019-02-14 14:08 | CM.DPC ---
DCP: continued: case received, discussed in Team Rounds and met with pt. Introduced self and role. Pt was found sitting in bed, eating breakfast. Not currently using 02. She confirmed that she wished to d/c to home but after discussion did admit that she might need to safely do lthis by way of a short snf level stay first. She also confirmed that her daughter Brionna and her son Shreyas both carry her POA and so discussion re he plan can continue with them. Followed up on the dc planing done thus far: see notes from yesterday.: Spoke with [facility]: Chuck stated that pt did not do well when she was there before and that they at his point do not have a bed for her. Spoke next with Calista/[facility]. She stated that she is familiar with pt as she worked at [facility] when pt was last there Sep 2018. She noted difficulties with roommates and non compliance with the no smoking policy. She also confirms that [facility] is not currently in network with [facility]. She does advise that [facility] and the [facility] are both in network. Followed up then on the [facility] referral. Spoke with tianna Chaparro who stated she found the faxed referral info in her box this morning and wondered why this [place] pt was not staying in [place] (the facility is a sister facility of [facility]). She also states she had worked in [facility] when pt was last there and was very familiar with the difficulties encountered. She stated she was not declining pt but she wanted to discuss case further with [facility] and said she would get back to this DCPlanner by end of today. Next: called Brionna/[facility] [phone] and left a message now re need for further discussion re d/c planning options. Dr. Sanchez has a progress note in now that indicates that pt talked again with her daughter (who does live outside of [facility] area) and is now agreeable to a snf then Reza say. Plan to give referrals to [facility] and [facility] if get ok from [facility]
[2019-02-14] MEDS: LOSARTAN 50 MG TABLET PO (14:28)
[2019-02-14] MEDS: METOPROLOL ER 50 MG TABLET 100 MG PO (14:28)
[2019-02-14] MEDS: ASPIRIN EC 81 MG TABLET PO (14:29)
[2019-02-14] MEDS: TORSEMIDE 10 MG TABLET PO (14:29)
[2019-02-14] MEDS: GABAPENTIN 600 MG TABLET PO ×2 (14:29→20:34)
[2019-02-14] MEDS: POTASSIUM CHLORIDE 10 MEQ TAB PO (14:29)
[2019-02-14] MEDS: dilTIAZem CD 240 MG CAP PO (14:30)
--- NOTE | 2019-02-14 14:38 | PT.IPTN ---
Current Diagnoses Type 2 diabetes mellitus without complications (02/13/19) Morbid (severe) obesity due to excess calories (02/13/19) Paroxysmal atrial fibrillation (02/13/19) Acute and chronic respiratory failure with hypoxia (02/13/19) Weakness (02/13/19) Adult failure to thrive (02/13/19) Physical Therapy Treatment Note M2 PT-IP Current Condition Start: 02/13/19 09:10 Freq: NEEDED Status: Active Protocol: Document 02/13/19 09:15 SAK (Rec: 02/13/19 11:47 SAK [id number]) Physical Therapy Current Condition Current Condition Evaluation Date 02/13/19 Treatment Diagnosis weakness, frequent falls Onset Date 02/12/19 Weight Bearing Status Weight Bearing Status Full Weight Bearing M3 PT-IP Subjective Start: 02/13/19 09:10 Freq: NEEDED Status: Active Protocol: Document 02/14/19 12:25 LJ (Rec: 02/14/19 14:38 LJ [id number]) Subjective Physical Therapy Visit Type Type Treatment Note Visit Start Time 12:25 Visit Stop Time 12:48 Total Visit Minutes 23 Notes pt in bed reluctantly agrees to get up and use BSC. Therapy Pain Assessment Pain When Pain Assessed During Mobility Pain Present Pain Present Pain Reported Location óscar knees Description Aching Chronic Pain Behaviors Calling Out Facial Grimacing Moaning Wincing M4 PT-IP Mobility and Gait Start: 02/13/19 09:10 Freq: NEEDED Status: Active Protocol: Document 02/14/19 12:25 LJ (Rec: 02/14/19 14:38 LJ [id number]) PT-Bed Mobility Assessment Supine to Sit Supine to Sit Standby Assistance Head of Bed Elevated Scooting Scooting to Edge of Bed Standby Assistance PT-Transfer Assessment Sit to and From Stand Sit to and from Stand Standby Assistance Use of Upper Extremities Equipment Transfer Assistive Device Bed Rail 4 Wheeled Walker Transfers Transfer Destination Chair Bedside Commode Transfer Technique Stand Step Pivot Transfer Ability Level of Assist Standby Assistance Minimal Assistance Comments Mobility Comments Pt very slow with movements. Takes several minutes to change positions and transfer. Relies heavily on UEs and supports for mobility. Transfered from bed to BSC to chair using bed railings, BSC arms and walker to stabilize. Stood upright once for several seconds then proceeded to the next surface on which to sit. Gait Assessment Comments Gait Comments pt unwilling to ambulate 5' to BSC. Requested BSC be brought to her. M5 PT-IP Objective Assessments Start: 02/13/19 09:10 Freq: NEEDED Status: Active Protocol: Document 02/13/19 09:15 SAK (Rec: 02/13/19 11:47 SAK [id number]) Gross Range of Motion Upper Extremity ROM Assessment Within Functional Limits Lower Extremity ROM Assessment Within Functional Limits Strength Upper Extremity Strength Assessment Within Functional Limits Lower Extremity Strength Assessment Bilaterally Impaired Comments Strength Comments Refused testing; too tired. Has active antigravity ankle dorsiflexion and knee extension. M6 PT-IP Treatment Start: 02/13/19 09:10 Freq: NEEDED Status: Active Protocol: Document 02/14/19 12:25 LJ (Rec: 02/14/19 14:38 LJ [id number]) Physical Therapy Treatment Education Education Provided Safety Other Treatments Other Treatment Performed deep breathing and proper placement of nasal cannula M7 PT-IP Assessment and Plan Start: 02/13/19 09:10 Freq: NEEDED Status: Active Protocol: Document 02/14/19 12:25 LJ (Rec: 02/14/19 14:38 LJ [id number]) PT Summary Assessment and Plan Summary Assessment Summary Pt moving with dependency on UEs and support structures to transfer. Unwilling to ambulate to BSC 5' from bed. Pt plops into chair. Unable to stand upright during transfers when seat and chair are close enough to pivot rather than step. Recommendations To Nursing Amount of Assist Needed 1 Person Assist Discharge Recommendations PT Discharge Recommendations SNF Rehab
--- NOTE | 2019-02-14 14:52 | PT.IPTN ---
Current Diagnoses Type 2 diabetes mellitus without complications (02/13/19) Morbid (severe) obesity due to excess calories (02/13/19) Paroxysmal atrial fibrillation (02/13/19) Acute and chronic respiratory failure with hypoxia (02/13/19) Weakness (02/13/19) Adult failure to thrive (02/13/19) Physical Therapy Treatment Note M2 PT-IP Current Condition Start: 02/13/19 09:10 Freq: NEEDED Status: Active Protocol: Document 02/13/19 09:15 SAK (Rec: 02/13/19 11:47 SAK [id number]) Physical Therapy Current Condition Current Condition Evaluation Date 02/13/19 Treatment Diagnosis weakness, frequent falls Onset Date 02/12/19 Weight Bearing Status Weight Bearing Status Full Weight Bearing M3 PT-IP Subjective Start: 02/13/19 09:10 Freq: NEEDED Status: Active Protocol: Document 02/14/19 14:44 LJ (Rec: 02/14/19 14:52 LJ [id number]) Subjective Physical Therapy Visit Type Type Treatment Note Visit Start Time 14:14 Visit Stop Time 14:32 Total Visit Minutes 18 Notes Pt in bed. States she just returned to bed and didn't want to get up again. Willing to do some bed exercises M4 PT-IP Mobility and Gait Start: 02/13/19 09:10 Freq: NEEDED Status: Active Protocol: Document 02/14/19 12:25 LJ (Rec: 02/14/19 14:38 LJ [id number]) PT-Bed Mobility Assessment Supine to Sit Supine to Sit Standby Assistance Head of Bed Elevated Scooting Scooting to Edge of Bed Standby Assistance PT-Transfer Assessment Sit to and From Stand Sit to and from Stand Standby Assistance Use of Upper Extremities Equipment Transfer Assistive Device Bed Rail 4 Wheeled Walker Transfers Transfer Destination Chair Bedside Commode Transfer Technique Stand Step Pivot Transfer Ability Level of Assist Standby Assistance Minimal Assistance Comments Mobility Comments Pt very slow with movements. Takes several minutes to change positions and transfer. Relies heavily on UEs and supports for mobility. Transfered from bed to BSC to chair using bed railings, BSC arms and walker to stabilize. Stood upright once for several seconds then proceeded to the next surface on which to sit. Gait Assessment Comments Gait Comments pt unwilling to ambulate 5' to BSC. Requested BSC be brought to her. M5 PT-IP Objective Assessments Start: 02/13/19 09:10 Freq: NEEDED Status: Active Protocol: Document 02/13/19 09:15 SAK (Rec: 02/13/19 11:47 SAK [id number]) Gross Range of Motion Upper Extremity ROM Assessment Within Functional Limits Lower Extremity ROM Assessment Within Functional Limits Strength Upper Extremity Strength Assessment Within Functional Limits Lower Extremity Strength Assessment Bilaterally Impaired Comments Strength Comments Refused testing; too tired. Has active antigravity ankle dorsiflexion and knee extension. M6 PT-IP Treatment Start: 02/13/19 09:10 Freq: NEEDED Status: Active Protocol: Document 02/14/19 14:44 LJ (Rec: 02/14/19 14:52 LJ [id number]) Physical Therapy Treatment Exercises Exercises Ankle Pumps Gluteal Sets Quad Sets Heel Slides M7 PT-IP Assessment and Plan Start: 02/13/19 09:10 Freq: NEEDED Status: Active Protocol: Document 02/14/19 14:44 LJ (Rec: 02/14/19 14:52 LJ [id number]) PT Summary Assessment and Plan Summary Assessment Summary Pt performed 5 each glute sets , quad sets, heel slides then fatigued. Discussed with pt importance of participating in therapy and pt agreed to get on a schedule with PT/OT beginning with OT at 11:00 followed by PT at 11:30. Frequency of Treatment Frequency Of Treatment Twice a Day Treatment Plan Physical Therapy Treatment Plan Transfer Training Gait Training Therapeutic Exercise Balance Retraining Discharge Planning Recommendations To Nursing Amount of Assist Needed 1 Person Assist Discharge Recommendations PT Discharge Recommendations SNF Rehab
[2019-02-14] MEDS: DIGOXIN 0.125 MG TABLET PO (16:58)
[2019-02-14] MEDS: WARFARIN 5 MG TABLET PO (17:50)
--- NOTE | 2019-02-14 18:06 | PC.NURSE ---
Addendum entered by Margarita Ortiz R.N. 02/14/19 21:11: Pt has removed oxygen cannula countless times this evening. Pt desats to 86% without oxygen in place. Requires continual and consistent reminder by staff to replace oxygen. Original Note: Pt moved to room 207 from 204 to provide staff with better view of patient. Per report, pt has demonstrated some forgetfulness and impulsive behavior. Pt's son, Jed, arrives @ bedside and pt and pt's son request hawkins secured in safe upon admission be returned to son, Jed, so he can pay the bills. Parts Administrator, Shanique, was witness to pt opening valuables envelope and giving son all the hawkins contained therein. Jed counts hawkins and all parties agree all money is accounted for. Signatures obtained and receipt of hawkins returned placed in pt's red folder.
[2019-02-14] MEDS: ACETAMINOPHEN 325 MG TABLET 650 MG PO (19:20)
[2019-02-14] MEDS: ATORVASTATIN 20 MG TABLET 80 MG PO (20:35)
[2019-02-14] MEDS: OXYBUTYNIN 5 MG TABLET PO (20:37)
[2019-02-14] MEDS: URSODIOL 300 MG CAPSULE PO (20:38)
[2019-02-14 20:50] LABS: Fractionated Inspired Oxygen 28
--- NOTE | 2019-02-14 22:38 | PC.NURSE ---
Pt is incontinent on and off. bilateral lower leg edema, bilateral hand and foot neuropathy. Pt had pain 6/10 back today. Lung sounds diminished in bases, 2 liters o2 NC, fidgets w/ iv lines, and air lines. Pt on tele, normal sinus.
[2019-02-15] VITALS (7 sets, daily range): BP systolic 93–142; BP diastolic 47–71; PULSE 55–68; RESP 18–20; TEMP 36.6–36.8; O2SAT 89–98
--- NOTE | 2019-02-15 04:25 | PC.NURSE ---
pt alert, but confused and forgetful. Needs cues to breath through nose; 6L NC and O2 bounces from mid- 80's to low 90's. Patient has urgency and frequency issues with voiding. Patient is mixed incontinent with multiple pad and brief changes needed throughout shift. CBG ACHS with no checks during NOC shift. Tele reading NSR with 1st degree AV Block. Lungs diminished with expiratory wheezes. +1 non-pitting edema bilateral lower extremities.
--- NOTE | 2019-02-15 06:43 | PM.PN.1 ---
Subjective Date Patient Seen: 02/15/19 Interval history: Alem Donahue is a 68-year-old female with a past medical history for morbid obesity with obesity hypoventilation syndrome, COPD, active smoker, use of medications with predisposition to respiratory depression, non-compliance with oxygen therapy and CPAP who presented to the ED via EMS out of concern for weakness and frequent falls. The patient is resting in bedside chair comfortably. She has no complaints overall. She reports that she continues to be weak and that her daughter has informed her that she would be going to an assisted living facility after hospitalization. Discussed with her the need for physical rehabilitation at a correction facility. She seems to be quite forgetful and likely has mild to moderate dementia. She is refusing to wear oxygen or use CPAP at night. She denies headache, cough, shortness of breath, chest pain, abdominal pain, nausea, vomiting, fever, chills, dysuria, diarrhea or constipation. She is voiding and eliminating without difficulty. She is up ambulating with assistance. Exam Vital Signs (past 8 hours): - 02/15/19 00:17 02/15/19 04:30 Temperature 98.0 F 97.9 F Pulse Rate 67 63 Respiratory Rate 20 20 Blood Pressure 142/71 H 105/60 Pulse Oximetry 94 90 L Oxygen Delivery Method Nasal Cannula Oxygen Flow Rate 6 Narrative Exam Narrative: General: Older female sitting in bedside chair and in no acute distress, appears older than stated age, well-developed, well-nourished, significant short-term memory recall deficit but appropriately interactive. HEENT: Normocephalic, atraumatic. External ears without defect. Pupils equal, round, and reactive to light. Anicteric sclerae, moist conjunctivae, and no lid lag. Neck: Supple with full range of motion. No lymphadenopathy or thyromegaly. Cardiovascular: Regular rhythm, bradycardic, without murmurs, rubs, or gallops appreciated Pulmonary: Diminished throughout but clear to auscultation bilaterally with occasional end-expiratory wheeze. No crackles or rhonchi. Normal respiratory effort with no use of accessory muscles. Abdomen: Soft, obese, bowel sounds present, nontender, nondistended. No hepatosplenomegaly or masses appreciated. Extremities: No clubbing or cyanosis. Mild bipedal edema. Skin: Normal temperature, turgor, and texture; no rash, ulcers, or subcutaneous nodules appreciated. Neurological: Cranial nerves grossly intact. Psychiatric: Normal mood and affect. Alert and oriented to person and place. Objective Labs Result Diagrams: 02/15/19 06:49 02/15/19 06:49 Labs: Laboratory Results - last 24 hr 02/13/19 10:50 FiO2 28 Assessment & Plan Assessment & Plan narrative: Alem Donahue is a 68-year-old female with a past medical history for morbid obesity with obesity hypoventilation syndrome, COPD, active smoker, use of medications with predisposition to respiratory depression, non-compliance with oxygen therapy and CPAP who presented to the ED via EMS out of concern for weakness and frequent falls. 1. Acute on chronic hypoxemic and hypercabic respiratory, present on admission. Acute resolved. -Underlying contributing co-morbidities of COPD, obesity hypoventilation syndrome, use of medications with predisposition to respiratory depression, daily smoker, non-compliance with oxygen therapy and CPAP. -Presented with weakness, multiple falls, and hypersomnolence. -ABG: pH 7.31, pCO2 64.6, pO2 46, HCO3 33 with compensated respiratory acidosis. -Echo limited, 06/12/2018: LV normal in size and systolic function. EF 60-65%. No obvious focal wall motion abnormalities. -Continue supplemental oxygen, maintain SpO2 between 88-92%. Patient is refusing oxygen. -Chest xray did not demonstrate any acute cardiopulmonary abnormalities. -Limit use of [employer] depressing medications and perform neuro checks often monitoring for worsening confusion, somnolence. 2. Acute UTI, present on admission. Resolving. -Urine culture grew strep virdans. -Started levofloxacin but discontinued as this will interfere with warfarin significantly. Started ceftriaxone 2 g daily. 3. Acute on chronic generalized weakness and physical deconditioning, present on admission. Active. -Multi-factorialand due to debility and deconditioning, hypovolemia, poor adherence to recommended medical/oxygen therapy, morbid obesity, anemia, chronic hypoxemia and hypoventilation. -Consulted with [facility] for SNF placement. 4. Acute hypotension, secondary to hypovelmia, present on admission. Resolved. -Received 1L NS bolus in ED and IV fluid until adequately hydrated. -Held anti-hypertensives initially. 5. Acute metabolic encephalopathy, on chronic dementia, present on admission. Resolved. -Baseline mental status is not entirely clear. Metabolic encephalopathy in the setting chronic hypoxemia vs. dementia. -Continue supplemental oxygen as above. -Ordered speech therapy to perform SLUMS. -Consult social work, re: evaluate home safety and ability to live on her own. She lacks awareness of her underlying medical conditions. She has not incapacity to manage her own medications. She appears to have limited involvement in self-care. 6. Paroxysmal atrial fibrillation on warfarin, present on admission. Stable. -Continues to be SR. -Previously anti-coagulated with coumadin; INR is sub-therapeutic. Per patient she has not missed any does. Not entirely clear how often checks INR or if she is still on coumadin. -[id number] Score 5 (age, gender, CHF, HTN, DM). Given that patient has frequent falls, need to re-evaluate benefits of anti-coagulation vs. risks of bleeding -Continue warfarin. Check INR daily and will adjust if necessary. 7. Hypertension, hyperlipidemia, and systolic CHF, chronic, present on admission. Stable. -Continue cardiac meds including: aspirin, atorvastatin, digoxin, diltiazem, losartan, metoprolol, potassium chloride, torsemide and warfarin. 8. Diabetes mellitus type II, non-insulin using, present on admission. Stable. -Hemoglobin A1C 6.3% 01/2019. -Held metformin. Consider replacing metformin with another anti-diabetic agent outpatient. Metformin associated lactic acidosis is not common; however, this particular patient has underlying tissue hypoperfusion and perhaps another medication with lesser risks for lactic acidosis would be more ideal. -Continue ACHS glucose checks and low dose correctional scale insulin. -Continue heart healthy, carb consistent diet. -Continue gabapentin 600 mg three times daily. 9. Tobacco dependence, chronic, present on admission. Stable. -Smokes 1 ppd. -Reports trying Chantix in the past for smoking cessation. Notes it to be temporarily effective. Currently no desire to quit smoking, however lacks motivation. -Continue nicotine patch as needed for nicotine withdrawal. -Counseled the patient on smoking cessation. 10. Microcytic hypochromic anemia, chronic, present on admission. Stable. -Hgb 10.3 MCV 76.3 MCHC 29.7 RDW 22.9. No active s/s of bleeding. -Continue to monitor. 11. Chronic pain with opiate dependence, present on admission. Stable. -Currently in no pain. -Minimize use of opiates and other [employer] suppressing medications due to associated risks respiratory depression. 12. Overactive bladder, present on admission. Stable. -Continue oxybutynin 5 mg twice daily. 13. Morbid obesity, present on admission. Stable. -BMI 49. -Counseled patient regarding lifestyle modification and weight reduction. Disposition: Patient will need correction facility for rehabilitation due to generalized weakness, deconditioning and physical debility. Quality VTE Deep Vein Thrombosis/Pulmonary Embolism Present on Admission: No
[2019-02-15 07:02] LABS: Add Manual Diff / Slide Review NO; Basophils Absolute Auto 100 /uL (0-100); Eosinophils Absolute Auto 300 /uL (0-450); Eosinophils Percent Auto 3.9 % (2-4); Hematocrit 33.6 % (36-46); Lymphocytes Absolute Auto 1200 /uL (1100-4500); Lymphocytes Percent Auto 18.1 % (25-40); Mean Corpuscular HGB Conc 29.6 % (30-36); Mean Corpuscular Hemoglobin 22.9 PG (26-34); Mean Corpuscular Volume 77.2 fL (80-100); Monocytes Absolute Auto 500 /uL (0-900); Monocytes Percent Auto 7.7 % (3-14); Neutrophils Absolute Auto 4700 /uL (1500-7000); Neutrophils Percent Auto 69.3 % (50-75); Platelet Count 346 X10^3/uL (150-400); Red Blood Cell Count 4.35 X10^6/uL (4.0-5.2); Red Cell Distribution Width 23.1 % (11.6-14.8); White Blood Cell Count 6.9 X10^3/uL (4.5-11.0)
[2019-02-15 07:05] LABS: INR 1.5 (0.9-1.3); Prothrombin Time 17.7 SECONDS (10.1-12.7)
[2019-02-15 07:17] LABS: Blood Urea Nitrogen 9 mg/dL (7-17); Calcium 8.8 mg/dL (8.4-10.2); Carbon Dioxide 37 mmol/L (22-32); Chloride 97 mmol/L (98-107); Estimated Glomerular Filt Rate > 60.0 mL/min (>60); Glucose 124 mg/dL (80-110); HEMOLYSIS < 15 (0-50); Potassium 4.2 mmol/L (3.4-5.1); Sodium 138 mmol/L (137-145)
[2019-02-15] MEDS: LOSARTAN 50 MG TABLET PO (08:19)
[2019-02-15] MEDS: POTASSIUM CHLORIDE 10 MEQ TAB PO (08:19)
[2019-02-15] MEDS: HEPARIN 5,000 UNIT/ML VIAL 5000 UNIT SUBCUT ×2 (08:19→20:46)
[2019-02-15] MEDS: ASPIRIN EC 81 MG TABLET PO (08:20)
[2019-02-15] MEDS: dilTIAZem CD 240 MG CAP PO (08:20)
[2019-02-15] MEDS: FERROUS SULFATE 325 MG TABLET PO (08:20)
[2019-02-15] MEDS: levoFLOXacin 250 MG TABLET PO (08:20)
[2019-02-15] MEDS: METOPROLOL ER 50 MG TABLET 100 MG PO (08:21)
[2019-02-15] MEDS: NICOTINE 21 MG PATCH TOP (08:21)
[2019-02-15] MEDS: GABAPENTIN 600 MG TABLET PO ×3 (08:21→20:46)
[2019-02-15] MEDS: URSODIOL 300 MG CAPSULE PO ×2 (08:22→20:47)
[2019-02-15] MEDS: OXYBUTYNIN 5 MG TABLET PO ×2 (08:22→20:47)
[2019-02-15] MEDS: INSULIN ASPART 100 UNIT/ML INSULN PEN SUBCUT (08:23)
[2019-02-15 08:33] LABS: Anisocytosis 2+; Basophilic Stippling 1+; Hypochromasia 2+; Polychromasia 1+; Stomatocytes 1+
[2019-02-15] MEDS: TORSEMIDE 10 MG TABLET PO (10:32)
[2019-02-15] MEDS: SODIUM CHLORIDE 0.9% FLUSH 10 ML IV ×2 (10:33→20:47)
--- NOTE | 2019-02-15 11:35 | PT.IPTN ---
Current Diagnoses Type 2 diabetes mellitus without complications (02/13/19) Morbid (severe) obesity due to excess calories (02/13/19) Paroxysmal atrial fibrillation (02/13/19) Acute and chronic respiratory failure with hypoxia (02/13/19) Weakness (02/13/19) Adult failure to thrive (02/13/19) Physical Therapy Treatment Note M2 PT-IP Current Condition Start: 02/13/19 09:10 Freq: NEEDED Status: Active Protocol: Document 02/13/19 09:15 SAK (Rec: 02/13/19 11:47 SAK [id number]) Physical Therapy Current Condition Current Condition Evaluation Date 02/13/19 Treatment Diagnosis weakness, frequent falls Onset Date 02/12/19 Weight Bearing Status Weight Bearing Status Full Weight Bearing M3 PT-IP Subjective Start: 02/13/19 09:10 Freq: NEEDED Status: Active Protocol: Document 02/15/19 11:35 RCC (Rec: 02/15/19 12:34 RCC [id number]) Subjective Physical Therapy Visit Type Type Treatment Note Visit Start Time 11:35 Visit Stop Time 11:52 Total Visit Minutes 17 Number of TECHNICAL TRAINER Visits 0 Physical Therapy Visit Comments Patient Comments Pt agreeable to ambulate. She states it felt good to take a shower this a.m. M4 PT-IP Mobility and Gait Start: 02/13/19 09:10 Freq: NEEDED Status: Active Protocol: Document 02/15/19 11:35 RCC (Rec: 02/15/19 12:34 RCC [id number]) PT-Transfer Assessment Sit to and From Stand Sit to and from Stand Minimal Assistance 1 Person Assistance Use of Upper Extremities Equipment Transfer Assistive Device 4 Wheeled Walker Transfers Transfer Destination Bed Chair Transfer Technique Stand Step Pivot Transfer Ability Level of Assist Minimal Assistance 1 Person Assistance Use of Upper Extremities Gait Assessment Gait Gait Assistance Required: Contact Guard Assist 1 Person Assist Distance (Feet) 25 Assistive Devices Assistive Device Gait Belt 4 Wheeled Walker Gait Deviations General Gait Pattern Decreased Stride Length Decreased Feet Clearance Flexed Trunk Wide Based Gait Factors Limiting Gait Function Factors Limiting Gait Function Decreased Activity Tolerance Decreased Strength Pain Poor Balance Poor Safety Awareness Respiratory Distress Comments Gait Comments Pt required sitting rest break x2 min after 12.5 ft of gait. M5 PT-IP Objective Assessments Start: 02/13/19 09:10 Freq: NEEDED Status: Active Protocol: Document 02/13/19 09:15 SAK (Rec: 02/13/19 11:47 SAK [id number]) Gross Range of Motion Upper Extremity ROM Assessment Within Functional Limits Lower Extremity ROM Assessment Within Functional Limits Strength Upper Extremity Strength Assessment Within Functional Limits Lower Extremity Strength Assessment Bilaterally Impaired Comments Strength Comments Refused testing; too tired. Has active antigravity ankle dorsiflexion and knee extension. M6 PT-IP Treatment Start: 02/13/19 09:10 Freq: NEEDED Status: Active Protocol: Document 02/14/19 14:44 LJ (Rec: 02/14/19 14:52 LJ [id number]) Physical Therapy Treatment Exercises Exercises Ankle Pumps Gluteal Sets Quad Sets Heel Slides M7 PT-IP Assessment and Plan Start: 02/13/19 09:10 Freq: NEEDED Status: Active Protocol: Document 02/15/19 11:35 RCC (Rec: 02/15/19 12:34 RCC [id number]) PT Summary Assessment and Plan Summary Assessment Summary Pt required a seated rest break x2 min snf between ambulation distance due to fatigue. Pt tends to use forearms on the 4WW during ambulation and requires prolonged amount of time to complete all tasks. Pt is not safe to return to previous home environment, and would greatly benefit from SNF rehabilitation upon d/c to progress her safety with mobility, gait, activity tolerance and to promote a safe d/c. Goals Bed Mobility Goal Independent Transfer Goal Independent Gait Goal Independent Four Wheel Walker Gait Distance 50ft Days to Meet Goals 3 Frequency of Treatment Frequency Of Treatment Twice a Day Treatment Plan Other Recommendations and Next Treatment prog. gait, sit<->stand Focus training, standing balance Recommendations To Nursing Amount of Assist Needed 1 Person Assist Discharge Recommendations PT Discharge Recommendations SNF Rehab
[2019-02-15] MEDS: CEFTRIAXONE 2 GM/50 ML FROZ.PIGGY IV (12:56)
--- NOTE | 2019-02-15 14:25 | PT.IPTN ---
Current Diagnoses Type 2 diabetes mellitus without complications (02/13/19) Morbid (severe) obesity due to excess calories (02/13/19) Paroxysmal atrial fibrillation (02/13/19) Acute and chronic respiratory failure with hypoxia (02/13/19) Weakness (02/13/19) Adult failure to thrive (02/13/19) Physical Therapy Treatment Note M2 PT-IP Current Condition Start: 02/13/19 09:10 Freq: NEEDED Status: Active Protocol: Document 02/13/19 09:15 SAK (Rec: 02/13/19 11:47 SAK [id number]) Physical Therapy Current Condition Current Condition Evaluation Date 02/13/19 Treatment Diagnosis weakness, frequent falls Onset Date 02/12/19 Weight Bearing Status Weight Bearing Status Full Weight Bearing M3 PT-IP Subjective Start: 02/13/19 09:10 Freq: NEEDED Status: Active Protocol: Document 02/15/19 14:25 RCC (Rec: 02/15/19 16:00 RCC [id number]) Subjective Physical Therapy Visit Type Type Treatment Note Visit Start Time 14:25 Visit Stop Time 14:37 Total Visit Minutes 12 Number of SHELL ASSEMBLER Visits 0 Physical Therapy Visit Comments Patient Comments Pt willing to ambulate further this session. C/o LE fatigue with gait. M4 PT-IP Mobility and Gait Start: 02/13/19 09:10 Freq: NEEDED Status: Active Protocol: Document 02/15/19 14:25 RCC (Rec: 02/15/19 16:00 RCC [id number]) PT-Transfer Assessment Sit to and From Stand Sit to and from Stand Minimal Assistance 1 Person Assistance Use of Upper Extremities Equipment Transfer Assistive Device Gait Belt 4 Wheeled Walker Transfers Transfer Destination Chair Toilet Transfer Technique Stand Step Pivot Transfer Ability Level of Assist Contact Guard Assistance Use of Upper Extremities Gait Assessment Gait Gait Assistance Required: Contact Guard Assist 1 Person Assist Distance (Feet) 30 Assistive Devices Assistive Device Gait Belt 4 Wheeled Walker Gait Deviations General Gait Pattern Decreased Stride Length Decreased Feet Clearance Flexed Trunk Wide Based Gait Factors Limiting Gait Function Factors Limiting Gait Function Decreased Activity Tolerance Decreased Strength Pain Poor Balance Poor Safety Awareness M5 PT-IP Objective Assessments Start: 02/13/19 09:10 Freq: NEEDED Status: Active Protocol: Document 02/13/19 09:15 SAK (Rec: 02/13/19 11:47 SAK [id number]) Gross Range of Motion Upper Extremity ROM Assessment Within Functional Limits Lower Extremity ROM Assessment Within Functional Limits Strength Upper Extremity Strength Assessment Within Functional Limits Lower Extremity Strength Assessment Bilaterally Impaired Comments Strength Comments Refused testing; too tired. Has active antigravity ankle dorsiflexion and knee extension. M6 PT-IP Treatment Start: 02/13/19 09:10 Freq: NEEDED Status: Active Protocol: Document 02/14/19 14:44 LJ (Rec: 02/14/19 14:52 LJ [id number]) Physical Therapy Treatment Exercises Exercises Ankle Pumps Gluteal Sets Quad Sets Heel Slides M7 PT-IP Assessment and Plan Start: 02/13/19 09:10 Freq: NEEDED Status: Active Protocol: Document 02/15/19 14:25 RCC (Rec: 02/15/19 16:00 RCC [id number]) PT Summary Assessment and Plan Summary Assessment Summary Pt able to ambulate 30 ft with 4WW and CGA, using forearms on FWW handles with flexed posture during gait. Pt did attempt to use hands only on handles, but reported feeling increased unsteadiness with this technique. Pt fatigues quickly with mobility, and is unable to control descent from stand to sit well. Goals Bed Mobility Goal Independent Transfer Goal Independent Gait Goal Independent Four Wheel Walker Gait Distance 50ft Days to Meet Goals 3 Frequency of Treatment Frequency Of Treatment Twice a Day Treatment Plan Other Recommendations and Next Treatment cont. to advance gait distance Focus and training, posture and standing balance Recommendations To Nursing Amount of Assist Needed 1 Person Assist
--- NOTE | 2019-02-15 15:45 | CM.DPC ---
Addendum entered by Elissa Wharton LPN 02/16/19 08:52: Received a call from Brionna and went over info discussed with Shreyas. Her cell phone went in and out of breakfast server and she noted she lives in an area that does not have good breakfast server access. Encouraged her to talk with Shreyas and she agrees to do so. [facility] team to follow on Sunday with CSV and status of the insurance authorization. Original Note: DCP: continued. Spoke this afternoon with POA Shreyas/son/Viola: [phone] . He confirms that he and his sister Brionna work together to help pt but he is POA #1. Went over the challenges thus far re finding an appropriate snf. A call to [facility] today revealed that Beth does not work on weekend and she did not leave a vm yesterday afternoon. Do not anticipate acceptance at [facility]. Went over options of [facility] or [facility]. Shreyas says [facility] is not an option for them: wishes referral to [facility]/done/have spoken with Elma and faxed initial clinical. Elma does confirm that they will not be able to obtain an auth over the weekend. Shreyas confirms that the plan now is to honor pt's wishes to remain in her own home as long as possible and thus after the snf stay they plan to increase some services and make her medication management process better support her needs. They are NOT at this time looking at a intermediate designer stay in a snf setting. P: will be following up tomorrow and will update pt and Shreyas after Elma and her team have reviewed the case. Elma is aware that pt is a daily smoker but that she also knows she cannot smoke at the facility. Family are also very aware and supportive of this.
--- NOTE | 2019-02-15 16:00 | OT.IP.TRT ---
Current Diagnoses Type 2 diabetes mellitus without complications (02/13/19) Morbid (severe) obesity due to excess calories (02/13/19) Paroxysmal atrial fibrillation (02/13/19) Acute and chronic respiratory failure with hypoxia (02/13/19) Weakness (02/13/19) Adult failure to thrive (02/13/19) Occupational Therapy Treatment Note M2 OT-IP Current Condition Start: 02/13/19 11:18 Freq: Status: Active Protocol: Document 02/13/19 13:44 [facility] (Rec: 02/13/19 14:10 [facility] [id number]) Occupational Therapy Current Condition Current Condition Evaluation Date 02/13/19 Treatment Diagnosis Acute respiratory failure with hypoxia Diagnosis Onset Date 02/13/19 M3 OT- IP Subjective and Pain Start: 02/13/19 11:18 Freq: Status: Active Protocol: Document 02/15/19 16:02 TERESA (Rec: 02/15/19 16:03 TERESA [id number]) OT- Subjective Occupational Therapy Visit Type Type Administrative Note Visit Start Time 16:00 Notes Pt seen twice by P.T. today. OT to see pt Saturday 02/17. No
[2019-02-15] MEDS: DIGOXIN 0.125 MG TABLET PO (19:44)
[2019-02-15] MEDS: WARFARIN 5 MG TABLET 4 MG PO (19:52)
[2019-02-15] MEDS: ATORVASTATIN 20 MG TABLET 80 MG PO (20:46)
[2019-02-15] MEDS: ACETAMINOPHEN 325 MG TABLET 650 MG PO (23:58)
[2019-02-16] VITALS (10 sets, daily range): BP systolic 82–99; BP diastolic 45–61; PULSE 54–68; RESP 16–22; TEMP 36.3–36.8; O2SAT 92–99
[2019-02-16 07:33] LABS: INR 1.6 (0.9-1.3); Prothrombin Time 18.6 SECONDS (10.1-12.7)
--- NOTE | 2019-02-16 07:58 | P.PN_ITS ---
Subjective Date Patient Seen: 02/16/19 Interval history: Alem Donahue is a 68-year-old female with a past medical history for morbid obesity with obesity hypoventilation syndrome, COPD, active smoker, use of medi cations with predisposition to respiratory depression, non-compliance with oxygen therapy and CPAP who presented to the ED via EMS out of concern for weakness and frequent falls. The patient is resting in bedside chair comfortably. She has no complaints overall. She reports that she continues to be weak. She denies refusal of oxygen, nebs or CPAP. She seems to be quite forgetful and likely has mild to moderate dementia. She denies headache, cough, shortness of breath, chest pain, abdominal pain, nausea, vomiting, fever, chills, dysuria, diarrhea or constipation. She is voiding and eliminating without difficulty. She is up ambulating minimally with assistance and PT. Exam Vital Signs (past 8 hours): - 02/16/19 00:43 02/16/19 04:21 02/16/19 06:30 Temperature 97.3 F L 97.9 F Pulse Rate 67 65 Respiratory Rate 22 22 Blood Pressure 89/56 L 82/45 L 95/45 L Pulse Oximetry 95 92 Oxygen Delivery Method Room Air Oxygen Flow Rate 0 Narrative Exam Narrative: General: Older female sitting in bedside chair and in no acute distress, appears older than stated age, well-developed, well-nourished, significant short-term memory recall deficit but appropriately interactive. HEENT: Normocephalic, atraumatic. External ears without defect. Pupils equal, round, and reactive to light. Anicteric sclerae, moist conjunctivae, and no lid lag. Neck: Supple with full range of motion. No lymphadenopathy or thyromegaly. Cardiovascular: Regular rhythm, bradycardic, without murmurs, rubs, or gallops appreciated. Pulmonary: Diminished throughout but clear to auscultation bilaterally with occasional end-expiratory wheeze. No crackles or rhonchi. Normal respiratory effort with no use of accessory muscles. Abdomen: Soft, obese, bowel sounds present, nontender, nondistended. No hepatosplenomegaly or masses appreciated. Extremities: No clubbing or cyanosis. Mild bipedal edema. Skin: Normal temperature, turgor, and texture; no rash, ulcers, or subcutaneous nodules appreciated. Neurological: Cranial nerves grossly intact. Psychiatric: Normal mood and affect. Alert and oriented to person and place. Patient likely has moderate dementia with short-term memory recall deficit. Objective Labs Result Diagrams: 02/15/19 06:49 02/15/19 06:49 Labs: Laboratory Results - last 24 hr 02/15/19 02/16/19 06:49 06:50 RBC Morphology See below Polychromasia 1+ H Hypochromasia 2+ H Basophilic Stippling 1+ H Anisocytosis 2+ H Stomatocytes 1+ H PT 18.6 H INR 1.6 H Assessment & Plan Assessment & Plan narrative: Alem Donahue is a 68-year-old female with a past medical history for morbid obesity with obesity hypoventilation syndrome, COPD, active smoker, use of medications with predisposition to respiratory depression, non-compliance with oxygen therapy and CPAP who presented to the ED via EMS out of concern for weakness and frequent falls. 1. Acute on chronic hypoxemic and hypercabic respiratory, present on admission. Acute exacerbation resolved. -Underlying contributing co-morbidities of COPD, obesity hypoventilation syndrome, use of medications with predisposition to respiratory depression, daily smoker, non-compliance with oxygen therapy and CPAP. -Presented with weakness, multiple falls, and hypersomnolence. -ABG: pH 7.31, pCO2 64.6, pO2 46, HCO3 33 with compensated respiratory acidosis. -Echo limited, 06/12/2018: LV normal in size and systolic function. EF 60-65%. No obvious focal wall motion abnormalities. -Continue supplemental oxygen, maintain SpO2 between 88-92%. Patient is refusing oxygen. -Chest xray did not demonstrate any acute cardiopulmonary abnormalities. -Limit use of ARTILLERY OR NAVAL GUNFIRE OBSERVER depressing medications and perform neuro checks often monitoring for worsening confusion and somnolence. 2. Acute UTI, present on admission. Resolving. -Urine culture grew strep virdans. -Started levofloxacin but discontinued as this will interfere with warfarin metabolism significantly. Started ceftriaxone 2 g daily. 3. Acute on chronic generalized weakness and physical deconditioning, present on admission. Active. -Multi-factorial and due to debility and deconditioning, hypovolemia, poor adherence to recommended medical/oxygen therapy, morbid obesity, anemia, chronic hypoxemia and hypoventilation. -Consulted with QUALITY ASSURANCE PROJECT MANAGER for SNF placement. 4. Acute hypotension, secondary to hypovelmia, present on admission. Resolved. -Received 1L NS bolus in ED and IV fluid until adequately hydrated. -Held anti-hypertensives initially. Patient continues to have low normal blood pressure (on antihypertensives) but no longer hypotensive. 5. Acute metabolic encephalopathy, on chronic dementia, present on admission. Resolved. -Baseline mental status is not entirely clear. Metabolic encephalopathy resolved. Patient likely has moderate dementia. -Continue supplemental oxygen as above. -Ordered speech therapy to perform SLUMS. -Consult social work, re: evaluate home safety and ability to live on her own. She lacks awareness of her underlying medical conditions. She has not incapacity to manage her own medications. She appears to have limited involvement in self-care. 6. Paroxysmal atrial fibrillation, on warfarin, present on admission. Stable. -Continues to be SR. Continue rate control/BP medications as below. -Previously anti-coagulated with coumadin; INR is sub-therapeutic. Per patient she has not missed any does. Not entirely clear how often checks INR or if she is still on coumadin. -[id number] Score 5 (age, gender, CHF, HTN, DM). Given that patient has frequent falls, need to re-evaluate benefits of anti-coagulation vs. risks of bleeding. -Continue warfarin. Check INR daily and will adjust if necessary. 7. Hypertension, hyperlipidemia, and systolic CHF, chronic, present on admission. Stable. -Continue cardiac meds including: aspirin, atorvastatin, digoxin, diltiazem lowered from 240 to 120 mg daily, losartan lowered from 50 to 25 mg daily, metoprolol lowered from 100 to 50 mg daily, potassium chloride, torsemide and warfarin. 8. Diabetes mellitus type II, non-insulin using, present on admission. Stable. -Hemoglobin A1C 6.3% 01/2019. -Held metformin. Consider replacing metformin with another anti-diabetic agent outpatient. Metformin associated lactic acidosis is not common; however, this particular patient has underlying tissue hypoperfusion and perhaps another medication with lesser risks for lactic acidosis would be more ideal. -Continue ACHS glucose checks and low dose correctional scale insulin. -Continue heart healthy, carb consistent diet. -Continue gabapentin 600 mg three times daily. 9. Tobacco dependence, chronic, present on admission. Stable. -Smokes 1 ppd. -Reports trying Chantix in the past for smoking cessation. Notes it to be temporarily effective. Currently no desire to quit smoking, however lacks motivation. -Continue nicotine patch as needed for nicotine withdrawal. -Counseled the patient on smoking cessation. 10. Microcytic hypochromic anemia, chronic, present on admission. Stable. -Secondary to iron deficiency. -Hgb 10.3 MCV 76.3 MCHC 29.7 RDW 22.9. -Continue ferrous sulfate 325 mg daily. -No overt signs of bleeding. Continue to monitor. 11. Chronic pain with opiate dependence, present on admission. Stable. -Currently in no pain. -Minimize use of opiates and other ARTILLERY OR NAVAL GUNFIRE OBSERVER suppressing medications due to associated risks respiratory depression. 12. Overactive bladder, present on admission. Stable. -Continue oxybutynin 5 mg twice daily. 13. Morbid obesity, present on admission. Stable. -BMI 49. -Counseled patient regarding lifestyle modification and weight reduction. Disposition: Awaiting placement at correction facility for rehabilitation due to generalized weakness, deconditioning and physical debility. Quality VTE Deep Vein Thrombosis/Pulmonary Embolism Present on Admission: No
[2019-02-16] MEDS: ASPIRIN EC 81 MG TABLET PO (08:50)
[2019-02-16] MEDS: OXYBUTYNIN 5 MG TABLET PO ×2 (08:50→22:09)
[2019-02-16] MEDS: GABAPENTIN 600 MG TABLET PO ×3 (08:50→22:07)
[2019-02-16] MEDS: NICOTINE 21 MG PATCH TOP (08:50)
[2019-02-16] MEDS: FERROUS SULFATE 325 MG TABLET PO (08:50)
[2019-02-16] MEDS: HEPARIN 5,000 UNIT/ML VIAL 5000 UNIT SUBCUT ×2 (08:50→22:07)
[2019-02-16] MEDS: TORSEMIDE 10 MG TABLET PO (08:51)
[2019-02-16] MEDS: POTASSIUM CHLORIDE 10 MEQ TAB PO (08:51)
[2019-02-16] MEDS: INSULIN ASPART 100 UNIT/ML INSULN PEN SUBCUT ×2 (08:51→12:02)
[2019-02-16] MEDS: URSODIOL 300 MG CAPSULE PO ×2 (08:54→22:10)
[2019-02-16] MEDS: SODIUM CHLORIDE 0.9% FLUSH 10 ML IV ×2 (08:55→22:10)
[2019-02-16] MEDS: dilTIAZem CD 240 MG CAP PO (10:11)
--- NOTE | 2019-02-16 11:19 | PT.IPTN ---
Current Diagnoses Type 2 diabetes mellitus without complications (02/13/19) Morbid (severe) obesity due to excess calories (02/13/19) Paroxysmal atrial fibrillation (02/13/19) Acute and chronic respiratory failure with hypoxia (02/13/19) Weakness (02/13/19) Adult failure to thrive (02/13/19) Physical Therapy Treatment Note M2 PT-IP Current Condition Start: 02/13/19 09:10 Freq: NEEDED Status: Active Protocol: Document 02/13/19 09:15 SAK (Rec: 02/13/19 11:47 SAK [id number]) Physical Therapy Current Condition Current Condition Evaluation Date 02/13/19 Treatment Diagnosis weakness, frequent falls Onset Date 02/12/19 Weight Bearing Status Weight Bearing Status Full Weight Bearing M3 PT-IP Subjective Start: 02/13/19 09:10 Freq: NEEDED Status: Active Protocol: Document 02/16/19 11:19 RCC (Rec: 02/16/19 13:06 RCC [email or web address]) Subjective Physical Therapy Visit Type Type Treatment Note Visit Start Time 11:19 Visit Stop Time 11:47 Total Visit Minutes 28 Number of OPEN HEARTH FURNACE LABORER Visits 0 Physical Therapy Visit Comments Patient Comments Pt states that she is tired but knows she must continue to walk. M4 PT-IP Mobility and Gait Start: 02/13/19 09:10 Freq: NEEDED Status: Active Protocol: Document 02/16/19 11:19 RCC (Rec: 02/16/19 13:06 RCC [email or web address]) PT-Transfer Assessment Sit to and From Stand Sit to and from Stand Minimal Assistance 1 Person Assistance Use of Upper Extremities Equipment Transfer Assistive Device Gait Belt 4 Wheeled Walker Transfers Transfer Destination Chair Bedside Commode Transfer Technique Stand Step Pivot Transfer Ability Level of Assist Contact Guard Assistance Use of Upper Extremities Gait Assessment Gait Gait Assistance Required: Contact Guard Assist 1 Person Assist Distance (Feet) 30 Assistive Devices Assistive Device Gait Belt 4 Wheeled Walker Gait Deviations General Gait Pattern Decreased Stride Length Decreased Feet Clearance Flexed Trunk Wide Based Gait Factors Limiting Gait Function Factors Limiting Gait Function Decreased Activity Tolerance Decreased Strength Pain Poor Balance Poor Safety Awareness Comments Gait Comments Pt with one standing rest break x10 sec mid-way through gait training. M5 PT-IP Objective Assessments Start: 02/13/19 09:10 Freq: NEEDED Status: Active Protocol: Document 02/13/19 09:15 SAK (Rec: 02/13/19 11:47 [facility] [id number]) Gross Range of Motion Upper Extremity ROM Assessment Within Functional Limits Lower Extremity ROM Assessment Within Functional Limits Strength Upper Extremity Strength Assessment Within Functional Limits Lower Extremity Strength Assessment Bilaterally Impaired Comments Strength Comments Refused testing; too tired. Has active antigravity ankle dorsiflexion and knee extension. M6 PT-IP Treatment Start: 02/13/19 09:10 Freq: NEEDED Status: Active Protocol: Document 02/16/19 11:19 RCC (Rec: 02/16/19 13:06 RCC [id number]) Physical Therapy Treatment Education Education Provided Safety M7 PT-IP Assessment and Plan Start: 02/13/19 09:10 Freq: NEEDED Status: Active Protocol: Document 02/16/19 11:19 [facility] (Rec: 02/16/19 13:06 RCC [email or web address]) PT Summary Assessment and Plan Summary Assessment Summary Pt fatigued after ambulation but still a willing participant in physical therapy and is motivated to progress as able. Pt continues to be below her prior functional baseline and is not safe to return home at this point. Goals Bed Mobility Goal Independent Transfer Goal Independent Gait Goal Independent Four Wheel Walker Gait Distance 50ft Days to Meet Goals 3 Frequency of Treatment Frequency Of Treatment Twice a Day Treatment Plan Other Recommendations and Next Treatment gait training, sit<->stand Focus with UE support Recommendations To Nursing Amount of Assist Needed 1 Person Assist Discharge Recommendations PT Discharge Recommendations SNF Rehab
[2019-02-16] MEDS: CEFTRIAXONE 2 GM/50 ML FROZ.PIGGY IV (12:12)
[2019-02-16] MEDS: METOPROLOL ER 50 MG TABLET 100 MG PO (13:37)
--- NOTE | 2019-02-16 15:01 | PT.IPTN ---
Current Diagnoses Type 2 diabetes mellitus without complications (02/13/19) Morbid (severe) obesity due to excess calories (02/13/19) Paroxysmal atrial fibrillation (02/13/19) Acute and chronic respiratory failure with hypoxia (02/13/19) Weakness (02/13/19) Adult failure to thrive (02/13/19) Physical Therapy Treatment Note M2 PT-IP Current Condition Start: 02/13/19 09:10 Freq: NEEDED Status: Active Protocol: Document 02/13/19 09:15 SAK (Rec: 02/13/19 11:47 SAK [id number]) Physical Therapy Current Condition Current Condition Evaluation Date 02/13/19 Treatment Diagnosis weakness, frequent falls Onset Date 02/12/19 Weight Bearing Status Weight Bearing Status Full Weight Bearing M3 PT-IP Subjective Start: 02/13/19 09:10 Freq: NEEDED Status: Active Protocol: Document 02/16/19 15:01 RCC (Rec: 02/16/19 16:46 RCC [email or web address]) Subjective Physical Therapy Visit Type Type Treatment Note Visit Start Time 15:01 Visit Stop Time 15:17 Total Visit Minutes 16 Number of MACHINE FINISHER Visits 0 Physical Therapy Visit Comments Patient Comments pt reports that she was unable to nap today, is tired but willing to ambulate. M4 PT-IP Mobility and Gait Start: 02/13/19 09:10 Freq: NEEDED Status: Active Protocol: Document 02/16/19 15:01 RCC (Rec: 02/16/19 16:46 RCC [email or web address]) PT-Transfer Assessment Sit to and From Stand Sit to and from Stand Minimal Assistance Equipment Transfer Assistive Device Gait Belt 4 Wheeled Walker Transfers Transfer Destination Chair Bedside Commode Transfer Technique Stand Step Pivot Transfer Ability Level of Assist Contact Guard Assistance Use of Upper Extremities Gait Assessment Gait Gait Assistance Required: Contact Guard Assist 1 Person Assist Distance (Feet) 40 Assistive Devices Assistive Device Gait Belt 4 Wheeled Walker Gait Deviations General Gait Pattern Decreased Stride Length Decreased Feet Clearance Flexed Trunk Wide Based Gait Factors Limiting Gait Function Factors Limiting Gait Function Decreased Activity Tolerance Decreased Strength Pain Poor Balance Poor Safety Awareness Comments Gait Comments no standing or sitting rest break, but did c/o fatigue M5 PT-IP Objective Assessments Start: 02/13/19 09:10 Freq: NEEDED Status: Active Protocol: Document 02/13/19 09:15 SAK (Rec: 02/13/19 11:47 SAK [id number]) Gross Range of Motion Upper Extremity ROM Assessment Within Functional Limits Lower Extremity ROM Assessment Within Functional Limits Strength Upper Extremity Strength Assessment Within Functional Limits Lower Extremity Strength Assessment Bilaterally Impaired Comments Strength Comments Refused testing; too tired. Has active antigravity ankle dorsiflexion and knee extension. M6 PT-IP Treatment Start: 02/13/19 09:10 Freq: NEEDED Status: Active Protocol: Document 02/16/19 11:19 RCC (Rec: 02/16/19 13:06 RCC [email or web address]) Physical Therapy Treatment Education Education Provided Safety M7 PT-IP Assessment and Plan Start: 02/13/19 09:10 Freq: NEEDED Status: Active Protocol: Document 02/16/19 15:01 RCC (Rec: 02/16/19 16:46 RCC [email or web address]) PT Summary Assessment and Plan Summary Assessment Summary Pt increased gait distance to 40 ft with CGA and 4WW. She remained on supplemental O2 this session, but no respiratory distress noted. Pt continues to have severe limitations with mobility and is not safe to ambulate without close guarding. Goals Bed Mobility Goal Independent Transfer Goal Independent Gait Goal Independent Four Wheel Walker Gait Distance 50ft Days to Meet Goals 3 Frequency of Treatment Frequency Of Treatment Twice a Day Treatment Plan Other Recommendations and Next Treatment progress gait with chair or w/ Focus c follow into hallway Recommendations To Nursing Amount of Assist Needed 1 Person Assist Discharge Recommendations PT Discharge Recommendations SNF Rehab
[2019-02-16] MEDS: WARFARIN 2 MG TABLET 4 MG PO (18:29)
[2019-02-16] MEDS: DIGOXIN 0.125 MG TABLET PO (18:30)
[2019-02-16] MEDS: ATORVASTATIN 20 MG TABLET 80 MG PO (22:07)
[2019-02-16] MEDS: LOSARTAN 50 MG TABLET 25 MG PO (22:08)
--- NOTE | 2019-02-16 22:23 | PC.NURSE ---
Spoke with pharmacy concerning the erroneous way of dispensing and admin the pt warfarin 4mg PO @ 1700. this lead technical writer is not comfortable and will not admin medication this way. Pharmacy changed order to 4mg warfarin and sent up 2, 2mg tabs warfarin to place in pt's med drawer, instead of a 5mg tab, which this lead technical writer was supposed to cut a piece off of, and admin as a 4mg tab. Pt has continually been hypotensive, and bradycardic. Dr. Ayala has changed dosing and times of pt's hypertensives, as well as DC'ing metropolol. Pt is on 2L O2 r/t desating to mid to upper 80's on RA. 94-96% 2L SpO2, denies SOb. BT+ denies nausea. Nicotine patch to left deltoid. RFA SL. Has denies pain all shift. Bed alarm on.
[2019-02-17] VITALS (9 sets, daily range): BP systolic 97–140; BP diastolic 43–100; PULSE 52–74; RESP 16–22; TEMP 36.3–37.2; O2SAT 91–95
--- NOTE | 2019-02-17 07:06 | P.PN_ITS ---
Subjective Date Patient Seen: 02/17/19 Interval history: Alem Donahue is a 68-year-old female with a past medical history for morbid obesity with obesity hypoventilation syndrome, COPD, active smoker, use of med ications with predisposition to respiratory depression, non-compliance with oxygen therapy and CPAP who presented to the ED via EMS out of concern for weakness and frequent falls. The patient is resting in bedside chair comfortably. She is eager to return home but has discussed this with her daughter who is looking into assisted living facility for after skilled rehab. She has some insight into her needing more help than what she has at home. She has no complaints overall. She reports that she continues to be weak but worked with physical therapy and did better today. She seems to be quite forgetful and likely has mild to moderate dementia for which SLUMS will be performed today. She denies headache, cough, shortness of breath, chest pain, abdominal pain, nausea, vomiting, fever, chi lls, dysuria, diarrhea or constipation. She is voiding and eliminating without difficulty. She is up ambulating minimally with assistance and PT. Exam Vital Signs (past 8 hours): - 02/17/19 00:00 02/17/19 04:00 Temperature 97.4 F L 97.4 F L Pulse Rate 74 58 L Respiratory Rate 18 20 Blood Pressure 140/100 H 126/90 Pulse Oximetry 92 95 Fraction of Inspired Oxygen 21 Oxygen Delivery Method Nasal Cannula Oxygen Flow Rate 2 Narrative Exam Narrative: General: Older female sitting in bedside chair and in no acute distress, appears older than stated age, well-developed, well-nourished, significant short-term memory recall deficit but appropriately interactive. HEENT: Normocephalic, atraumatic. External ears without defect. Pupils equal, round, and reactive to light. Anicteric sclerae, moist conjunctivae, and no lid lag. Neck: Supple with full range of motion. No lymphadenopathy or thyromegaly. Cardiovascular: Regular rhythm, bradycardic, without murmurs, rubs, or gallops appreciated. Pulmonary: Diminished throughout but clear to auscultation bilaterally with fine bibasilar crackles. Normal respiratory effort with no use of accessory muscles. Abdomen: Soft, obese, bowel sounds present, nontender, nondistended. No hepatosplenomegaly or masses appreciated. Extremities: No clubbing or cyanosis. Mild bipedal edema. Skin: Normal temperature, turgor, and texture; no rash, ulcers, or subcutaneous nodules appreciated. Neurological: Cranial nerves grossly intact. Psychiatric: Normal mood and affect. Alert and oriented to person and place. Patient likely has moderate dementia with short-term memory recall deficit. Objective Labs Result Diagrams: 02/17/19 06:25 02/15/19 06:49 Labs: Laboratory Results - last 24 hr 02/16/19 06:50 PT 18.6 H INR 1.6 H Assessment & Plan Assessment & Plan narrative: Alem Donahue is a 68-year-old female with a past medical history for morbid obesity with obesity hypoventilation syndrome, COPD, active smoker, use of medications with predisposition to respiratory depression, non-compliance with oxygen therapy and CPAP who presented to the ED via EMS out of concern for weakness and frequent falls. 1. Acute on chronic generalized weakness and physical deconditioning, present on admission. Active and ongoing. -Multi-factorial and due to debility and deconditioning, hypovolemia, poor adherence to recommended medical/oxygen therapy, morbid obesity, anemia, chronic hypoxemia and hypoventilation. -Consulted with HARDWARE SALES ASSISTANT for SNF placement. -Continue PT and OT. 2. Acute on chronic hypoxemic and hypercabic respiratory, present on admission. Acute exacerbation resolved. -Underlying contributing co-morbidities of COPD, obesity hypoventilation syndrome, use of medications with predisposition to respiratory depression, daily smoker, non-compliance with oxygen therapy and CPAP. -Presented with weakness, multiple falls, and hypersomnolence. -ABG: pH 7.31, pCO2 64.6, pO2 46, HCO3 33 with compensated respiratory acidosis. -Echo limited, 06/12/2018: LV normal in size and systolic function. EF 60-65%. No obvious focal wall motion abnormalities. -Continue supplemental oxygen, maintain SpO2 between 88-92%. Patient is refusing oxygen. -Chest xray did not demonstrate any acute cardiopulmonary abnormalities. -Limit use of FRAME CARVER SPINDLE depressing medications and perform neuro checks often monitoring for worsening confusion and somnolence. 3. Acute UTI, present on admission. Resolved. -Urine culture grew strep virdans. -Received full course of treatment with levofloxacin (2 doses) and ceftriaxone (3 doses). 4. Acute hypotension, secondary to hypovelmia, present on admission. Resolved. -Received 1L NS bolus in ED and IV fluid until adequately hydrated. -Held anti-hypertensives initially. Patient continues to have low normal blood pressure (on antihypertensives) but no longer hypotensive. 5. Acute metabolic encephalopathy, on chronic dementia, present on admission. Resolved. -Baseline mental status is not entirely clear. Metabolic encephalopathy resolved. Patient likely has moderate dementia. -Continue supplemental oxygen as above. -Ordered speech therapy to perform SLUMS, pending. -Consult social work, re: evaluate home safety and ability to live on her own. She lacks awareness of her underlying medical conditions. She has not incapacity to manage her own medications. She appears to have limited involvement in self- care. 6. Paroxysmal atrial fibrillation, on warfarin, present on admission. Stable. -Continues to be SR. Continue rate control/BP medications as below. -Previously anti-coagulated with coumadin; INR is sub-therapeutic. Per patient she has not missed any does. Not entirely clear how often checks INR or if she is still on coumadin. -[id number] Score 5 (age, gender, CHF, HTN, DM). Given that patient has frequent falls, need to re-evaluate benefits of anti-coagulation vs. risks of bleeding. -Continue warfarin 5 mg daily. Check INR daily and will adjust as necessary. 7. Hypertension, hyperlipidemia, and systolic CHF, chronic, present on admiss ion. Stable -Continue cardiac meds including: aspirin, atorvastatin, digoxin, diltiazem lowered from 240 to 120 mg daily, losartan lowered from 50 to 25 mg daily, metoprolol lowered from 100 to 50 mg daily, potassium chloride, torsemide and warfarin. 8. Diabetes mellitus type II, non-insulin using, present on admission. Stable. -Hemoglobin A1C 6.3% 01/2019. -Held metformin. Consider replacing metformin with another anti-diabetic agent outpatient. Metformin associated lactic acidosis is not common; however, this particular patient has underlying tissue hypoperfusion and perhaps another medi cation with lesser risks for lactic acidosis would be more ideal. -Continue ACHS glucose checks and low dose correctional scale insulin. -Continue heart healthy, carb consistent diet. -Continue gabapentin 600 mg three times daily. 9. Tobacco dependence, chronic, present on admission. Stable. -Smokes 1 ppd. -Reports trying Chantix in the past for smoking cessation. Notes it to be temporarily effective. Currently no desire to quit smoking, however lacks motivation. -Continue nicotine patch as needed for nicotine withdrawal. -Counseled the patient on smoking cessation. 10. Microcytic hypochromic anemia, chronic, present on admission. Stable. -Secondary to iron deficiency. -Hgb 10.3 MCV 76.3 MCHC 29.7 RDW 22.9. -Continue ferrous sulfate 325 mg daily. -No overt signs of bleeding. Continue to monitor. 11. Chronic pain with opiate dependence, present on admission. Stable. -Currently in no pain. -Minimize use of opiates and other FRAME CARVER SPINDLE suppressing medications due to associated risks respiratory depression. 12. Overactive bladder, present on admission. Stable. -Continue oxybutynin 5 mg twice daily. 13. Morbid obesity, present on admission. Stable. -BMI 49. -Counseled patient regarding lifestyle modification and weight reduction. Disposition: Awaiting placement at senior living facility for rehabilitation due to generalized weakness, deconditioning and physical debility. Quality VTE Deep Vein Thrombosis/Pulmonary Embolism Present on Admission: No
[2019-02-17 07:16] LABS: Add Manual Diff / Slide Review NO; Basophils Absolute Auto 100 /uL (0-100); Basophils Percent Auto 0.9 % (0-2); Eosinophils Absolute Auto 300 /uL (0-450); Eosinophils Percent Auto 3.8 % (2-4); Hematocrit 34.6 % (36-46); Hemoglobin 10.2 g/dL (12.0-16.0); Lymphocytes Absolute Auto 1400 /uL (1100-4500); Lymphocytes Percent Auto 16.1 % (25-40); Mean Corpuscular HGB Conc 29.4 % (30-36); Monocytes Absolute Auto 700 /uL (0-900); Monocytes Percent Auto 8.2 % (3-14); Neutrophils Absolute Auto 6100 /uL (1500-7000); Platelet Count 323 X10^3/uL (150-400); Red Blood Cell Count 4.43 X10^6/uL (4.0-5.2); Red Cell Distribution Width 23.5 % (11.6-14.8); White Blood Cell Count 8.6 X10^3/uL (4.5-11.0)
[2019-02-17 07:18] LABS: INR 1.5 (0.9-1.3); Prothrombin Time 17.7 SECONDS (10.1-12.7)
[2019-02-17] MEDS: DOCUSATE 100 MG CAPSULE PO (07:54)
[2019-02-17] MEDS: NICOTINE 21 MG PATCH TOP (07:54)
[2019-02-17] MEDS: SODIUM CHLORIDE 0.9% FLUSH 10 ML IV ×2 (07:55→20:46)
[2019-02-17 08:12] LABS: Anisocytosis 3+; Microcytosis 1+
[2019-02-17 08:13] LABS: Hypochromasia 1+
[2019-02-17] MEDS: ASPIRIN EC 81 MG TABLET PO (08:57)
[2019-02-17] MEDS: GABAPENTIN 600 MG TABLET PO ×3 (08:57→20:43)
[2019-02-17] MEDS: POTASSIUM CHLORIDE 10 MEQ TAB PO (08:57)
[2019-02-17] MEDS: URSODIOL 300 MG CAPSULE PO ×2 (08:57→20:46)
[2019-02-17] MEDS: TORSEMIDE 10 MG TABLET PO (08:57)
[2019-02-17] MEDS: dilTIAZem CD 120 MG CAP PO (08:57)
[2019-02-17] MEDS: OXYBUTYNIN 5 MG TABLET PO ×2 (08:57→20:46)
[2019-02-17] MEDS: HEPARIN 5,000 UNIT/ML VIAL 5000 UNIT SUBCUT ×2 (09:03→20:44)
[2019-02-17 09:16] LABS: Folate 4.7 ng/mL (2.76-20.0); Vitamin B12 324 pg/mL (239-931)
[2019-02-17] MEDS: FERROUS SULFATE 325 MG TABLET PO (11:15)
--- NOTE | 2019-02-17 11:33 | PT.IPTN ---
Current Diagnoses Type 2 diabetes mellitus without complications (02/13/19) Morbid (severe) obesity due to excess calories (02/13/19) Paroxysmal atrial fibrillation (02/13/19) Acute and chronic respiratory failure with hypoxia (02/13/19) Weakness (02/13/19) Adult failure to thrive (02/13/19) Physical Therapy Treatment Note M2 PT-IP Current Condition Start: 02/13/19 09:10 Freq: NEEDED Status: Active Protocol: Document 02/13/19 09:15 SAK (Rec: 02/13/19 11:47 SAK [id number]) Physical Therapy Current Condition Current Condition Evaluation Date 02/13/19 Treatment Diagnosis weakness, frequent falls Onset Date 02/12/19 Weight Bearing Status Weight Bearing Status Full Weight Bearing M3 PT-IP Subjective Start: 02/13/19 09:10 Freq: NEEDED Status: Active Protocol: Document 02/17/19 11:27 HH (Rec: 02/17/19 11:33 HH [id number]) Subjective Physical Therapy Visit Type Type Treatment Note Visit Start Time 11:00 Visit Stop Time 11:20 Total Visit Minutes 20 Number of SPRING TESTER Visits 0 Physical Therapy Visit Comments Patient Comments Im tired but i will try to walk but wont be far. M4 PT-IP Mobility and Gait Start: 02/13/19 09:10 Freq: NEEDED Status: Active Protocol: Document 02/17/19 11:27 HH (Rec: 02/17/19 11:33 [id number]) PT-Transfer Assessment Sit to and From Stand Sit to and from Stand Contact Guard Assistance Use of Upper Extremities Equipment Transfer Assistive Device Gait Belt 4 Wheeled Walker Transfers Transfer Destination Chair Toilet Transfer Technique Stand Step Pivot Transfer Ability Level of Assist Contact Guard Assistance Use of Upper Extremities Gait Assessment Gait Gait Assistance Required: Contact Guard Assist 1 Person Assist Distance (Feet) 50 Assistive Devices Assistive Device Gait Belt 4 Wheeled Walker Gait Deviations General Gait Pattern Decreased Stride Length Decreased Feet Clearance Flexed Trunk Wide Based Gait Factors Limiting Gait Function Factors Limiting Gait Function Decreased Activity Tolerance Decreased Strength Pain Poor Balance Poor Safety Awareness Comments Gait Comments Pt is now off from O2. amb from chair to nursing station and back to chair for a total of 50 feet 4WW CGA. Pt amb with forearm resting on handles, along with flexed trunk. Pt c/o fatigue M5 PT-IP Objective Assessments Start: 02/13/19 09:10 Freq: NEEDED Status: Active Protocol: Document 02/13/19 09:15 SAK (Rec: 02/13/19 11:47 SAK [id number]) Gross Range of Motion Upper Extremity ROM Assessment Within Functional Limits Lower Extremity ROM Assessment Within Functional Limits Strength Upper Extremity Strength Assessment Within Functional Limits Lower Extremity Strength Assessment Bilaterally Impaired Comments Strength Comments Refused testing; too tired. Has active antigravity ankle dorsiflexion and knee extension. M6 PT-IP Treatment Start: 02/13/19 09:10 Freq: NEEDED Status: Active Protocol: Document 02/16/19 11:19 RCC (Rec: 02/16/19 13:06 RCC [id number]) Physical Therapy Treatment Education Education Provided Safety M7 PT-IP Assessment and Plan Start: 02/13/19 09:10 Freq: NEEDED Status: Active Protocol: Document 02/17/19 11:27 HH (Rec: 02/17/19 11:33 HH [id number]) PT Summary Assessment and Plan Summary Assessment Summary Pt increased gait distance to 50 in total without O2 therapy , but with flexed trunk position. Pt stated thats her baseline due to chronic back pain. Pt has been up to bathroom with nursing staff's CGA. However, her activity tolerance is still very low and cont needed closed guarding. Goals Bed Mobility Goal Independent Transfer Goal Independent Gait Goal Independent Four Wheel Walker Gait Distance 50ft Days to Meet Goals 3 Frequency of Treatment Frequency Of Treatment Twice a Day Treatment Plan Other Recommendations and Next Treatment progress gait with chair or w/ Focus c follow into hallway Recommendations To Nursing Amount of Assist Needed 1 Person Assist Discharge Recommendations PT Discharge Recommendations SNF Rehab
--- NOTE | 2019-02-17 12:06 | PC.NURSE ---
AM NOTE - pt is awake, up chair for breakfast, answers appropriately, 2l 94%, occassional congested, non productive cough, óscar 2+ edema, pink with dry, flaky skin lateral l calf, dry flaky skin feet, dusky when dependent, initially declines elevation, later after breakfast able raise le in chiar, discussed constipation and bm, states usually only goes once week, did admin docusate this am.
[2019-02-17] MEDS: CEFTRIAXONE 2 GM/50 ML FROZ.PIGGY IV (13:04)
--- NOTE | 2019-02-17 13:08 | CM.DPC ---
DCP Cont: Spoke with Elma, admissions at [facility]. Stated that she was going to get in touch with Calista, admissions nurse, so she could come here and see patient. Updated son, Shreyas, and Brionna, daughter as well. Shortly after, received a call from Leni admissions nurse at [facility]. She stated that they would not be able to accept patient due to her smoking history. This case repairer mentioned a smoking contract, and she stated that they don't do that. Called [facility] in [facility], and they stated that they are not contracted with her insurance. Called Brionna back, daughter, and she stated, go ahead and try [facility]. Went ahead and called Daiana in admissions at [facility]. Gave her information regarding the patient's history and insurance information. She stated that she would come out tomorrow and see patient. P: DCP to follow up with [facility] tomorrow. Daughter is aware of plan. Iman Allen RN/Final Armature Tester
--- NOTE | 2019-02-17 13:08 | OT.IP.TRT ---
Current Diagnoses Type 2 diabetes mellitus without complications (02/13/19) Morbid (severe) obesity due to excess calories (02/13/19) Paroxysmal atrial fibrillation (02/13/19) Acute and chronic respiratory failure with hypoxia (02/13/19) Weakness (02/13/19) Adult failure to thrive (02/13/19) Occupational Therapy Treatment Note M2 OT-IP Current Condition Start: 02/13/19 11:18 Freq: Status: Active Protocol: Document 02/13/19 13:44 [facility] (Rec: 02/13/19 14:10 [facility] [id number]) Occupational Therapy Current Condition Current Condition Evaluation Date 02/13/19 Treatment Diagnosis Acute respiratory failure with hypoxia Diagnosis Onset Date 02/13/19 M3 OT- IP Subjective and Pain Start: 02/13/19 11:18 Freq: Status: Active Protocol: Document 02/17/19 12:56 [facility] (Rec: 02/17/19 13:08 [facility] [id number]) OT- Subjective Occupational Therapy Visit Type Type Treatment Note Visit Start Time 11:35 Visit Stop Time 12:30 Total Visit Minutes 55 Occupational Therapy Visit Comments Patient Comments Pt needing lots of encouragement however eventually able to participate in grooming and cognitive assessment. OT Pain Assessment Pain When Pain Assessed At Rest Pain Present Pain Present Denied Pain M4 OT- IP ADL's Start: 02/13/19 11:18 Freq: Status: Active Protocol: Document 02/17/19 12:56 [facility] (Rec: 02/17/19 13:08 [facility] [id number]) OT ADL-Grooming General Evaluation Grooming Ability Standby Assistance Areas Needing Assistance Retrieving/Set-up of Grooming Items Comments OT Grooming Comments Pt had to use 4WW to sit from grooming need and needing assist for set-up to open items. Pt states at home would use her scissors. OT ADL-Oral Care General Eval Oral Care Ability Independent M5 OT- IP IADL's Start: 02/13/19 11:18 Freq: Status: Active Protocol: Document 02/13/19 13:44 [facility] (Rec: 02/13/19 14:10 [facility] [id number]) OT-Instrumental Activities of Daily Living Meal Preparation Meal Preparation Caregiver Provides Assist Diversified Crops I Farmworker Diversified Crops I Farmworker Caregiver Provides Assist M6 OT- IP Functional Cognition Start: 02/13/19 11:18 Freq: Status: Active Protocol: Document 02/17/19 12:56 [facility] (Rec: 02/17/19 13:08 [facility] [id number]) Cognitive Factors Limiting Selfcare Function Cognitive Ability Level of Alertness Alert Patient Orientation Name Date Year Day of Week Place Situation Attention Span Ability Capable of Focused Attention Capable of Sustained Attention Ability to Follow Commands Able to Follow One Step Commands Memory Description Short Term Impaired Safety Awareness Underestimates Need for Assistance Problem Solving Ability Unable to Identify Errors Needs Assist to Identify Solutions Executive Function Ability Unable to Filter Distractions Unable to Remember Details Cognitive Tests SLUMS Pt scored 22/30 normal is 27/ 30. Pt has most difficulty with short term memory, math calculations, and how to draw the clock hands on a clock after given time of ten to eleven. Cognitive Comments Cognitive Assessment Comments Pt states has caregiver usually go with her shopping and help to pay bills. Pt states usually has to write things down often, but nows has difficulty with STM. M7 OT- IP Mobility and Balance Start: 02/13/19 11:18 Freq: Status: Active Protocol: Document 02/17/19 12:56 [facility] (Rec: 02/17/19 13:08 [facility] [id number]) OT-Transfer Assessment Sit to and From Stand Sit to and from Stand Standby Assistance 1 Person Assistance Transfers Transfer Ability Standby Assistance Total Assistance Technique Transfer Destination Chair Transfer Technique Stand Pivot Devices Transfer Assistive Devices Gait Belt 4 Wheeled Walker Comments Mobility Comments Pt doing better with sit to stands from recliner SBA with 4WW. Pt continues to lean onto 4WW handles as not open to suggestions to standing upright. O2 on RA from 87% to 94%. Pt needing CGA/ELIZ for balance while trying to stand and turn 4WW around. Pt will continue to benefit from practice for 4WW safety especially when going to sit and stand from it. OT- Balance Assessment Sitting Balance and Reactions Static Sitting Balance Ability Normal Dynamic Sitting Balance Ability Good Standing Balance and Reactions Static Standing Balance Ability Fair Dynamic Standing Balance Ability Poor M8 OT- IP Objective Assessments Start: 02/13/19 11:18 Freq: Status: Active Protocol: Document 02/13/19 13:44 [facility] (Rec: 02/13/19 14:10 [facility] [id number]) OT Gross Range of Motion Upper Extremity Range of Motion Assessment Right Impaired ROM Impairments LUE WFL RUE instead of shoulder flexion tends to compensate with shoulder scaption. OT Strength Comments Strength Comments RUE from proximal to distal 3- /5 to 3+/5, LUE 4-/5. M9 OT- IP Assessment and Plan Start: 02/13/19 11:18 Freq: Status: Active Protocol: Document 02/17/19 12:56 [facility] (Rec: 02/17/19 13:08 [facility] [id number]) OT Summary Assessment and Plan Potential Rehabilitation Potential Good Analytic Complexity at Evaluation Low Summary OT Impairments Range of Motion Strength Balance Functional Cognition Functional Mobility Grooming Dressing Toileting Bathing Toilet Transfers Shower Transfers Progress Towards Goals Progressing Toward Goals Slow Progress due to Activity Tolerance Slow Progress due to Cognition Assessment Summary Pt doing better with mobility and participation in ADL's at this time. Pt's main barrier is STM, decreased activity tolerance, and has had history of falls, high fall risk and would benefit from short skilled rehab prior to going home. Goals Grooming Goal Standby Assistance Dressing Goal Standby Assistance Toileting Goal Standby Assistance Bathing Goal Minimal Assistance Grab Bars Hand Held Shower Sprayer Toilet Transfer Goal Standby Assistance Bedside Commode Grab Bars Shower Transfer Goal Minimal Assistance Tub Transfer Bench Grab Bars Days to Meet Goals 5 Frequency of Treatment Frequency Of Treatment Once a Day Treatment Plan OT Treatment Plan ADL Training Functional Cognition Training Functional Mobility Patient/Family Education Discharge Planning Discharge Recommendations OT Discharge Recommendations SNF Rehab Home Equipment Needs [facility]
--- NOTE | 2019-02-17 16:15 | PT.IPTN ---
Current Diagnoses Type 2 diabetes mellitus without complications (02/13/19) Morbid (severe) obesity due to excess calories (02/13/19) Paroxysmal atrial fibrillation (02/13/19) Acute and chronic respiratory failure with hypoxia (02/13/19) Weakness (02/13/19) Adult failure to thrive (02/13/19) Physical Therapy Treatment Note M2 PT-IP Current Condition Start: 02/13/19 09:10 Freq: NEEDED Status: Active Protocol: Document 02/13/19 09:15 SAK (Rec: 02/13/19 11:47 SAK [id number]) Physical Therapy Current Condition Current Condition Evaluation Date 02/13/19 Treatment Diagnosis weakness, frequent falls Onset Date 02/12/19 Weight Bearing Status Weight Bearing Status Full Weight Bearing M3 PT-IP Subjective Start: 02/13/19 09:10 Freq: NEEDED Status: Active Protocol: Document 02/17/19 15:42 LJ (Rec: 02/17/19 16:15 LJ [id number]) Subjective Physical Therapy Visit Type Type Treatment Note Visit Start Time 15:42 Visit Stop Time 16:04 Total Visit Minutes 22 Physical Therapy Visit Comments Patient Comments Im tired but i will try to walk but wont be far. M4 PT-IP Mobility and Gait Start: 02/13/19 09:10 Freq: NEEDED Status: Active Protocol: Document 02/17/19 15:42 LJ (Rec: 02/17/19 16:15 LJ [id number]) PT-Transfer Assessment Sit to and From Stand Sit to and from Stand Contact Guard Assistance Use of Upper Extremities Equipment Transfer Assistive Device Gait Belt 4 Wheeled Walker Transfers Transfer Destination Chair Transfer Ability Level of Assist Standby Assistance Use of Upper Extremities Gait Assessment Gait Gait Assistance Required: Standby Assistance Distance (Feet) 130 Assistive Devices Assistive Device Gait Belt 4 Wheeled Walker Gait Deviations General Gait Pattern Decreased Stride Length Decreased Feet Clearance Flexed Trunk Wide Based Gait Factors Limiting Gait Function Factors Limiting Gait Function Decreased Activity Tolerance Decreased Strength Pain Poor Balance Poor Safety Awareness Comments Gait Comments Pt ambulated with w/c following 65' then sat for 1 min rest break. Ambulated another 65' back to room and returned to chair. Pt w/o O2 in room or ambulating in hallway. Showed no sign of SOB as se was talking causually and constantly during ambulation. Returned to chair and had no complaint of pain or SOB. M5 PT-IP Objective Assessments Start: 02/13/19 09:10 Freq: NEEDED Status: Active Protocol: Document 02/13/19 09:15 SAK (Rec: 02/13/19 11:47 SAK [id number]) Gross Range of Motion Upper Extremity ROM Assessment Within Functional Limits Lower Extremity ROM Assessment Within Functional Limits Strength Upper Extremity Strength Assessment Within Functional Limits Lower Extremity Strength Assessment Bilaterally Impaired Comments Strength Comments Refused testing; too tired. Has active antigravity ankle dorsiflexion and knee extension. M6 PT-IP Treatment Start: 02/13/19 09:10 Freq: NEEDED Status: Active Protocol: Document 02/16/19 11:19 RCC (Rec: 02/16/19 13:06 RCC [id number]) Physical Therapy Treatment Education Education Provided Safety M7 PT-IP Assessment and Plan Start: 02/13/19 09:10 Freq: NEEDED Status: Active Protocol: Document 02/17/19 15:42 LJ (Rec: 02/17/19 16:15 LJ [id number]) PT Summary Assessment and Plan Summary Assessment Summary Pt increased gait to 65' x 2 with a 1 min rest break in between. No O2 in room or during ambulation. Without SOB or complaint of fatigue or pain. Goals Bed Mobility Goal Independent Transfer Goal Independent Gait Goal Independent Four Wheel Walker Gait Distance 50ft Days to Meet Goals 3 Frequency of Treatment Frequency Of Treatment Twice a Day Treatment Plan Other Recommendations and Next Treatment progress gait with chair or w/ Focus c follow into hallway Recommendations To Nursing Amount of Assist Needed Standby Assistance Discharge Recommendations PT Discharge Recommendations SNF Rehab
--- NOTE | 2019-02-17 16:40 | PC.NURSE ---
Addendum entered by Alicia Beach R.N. 02/17/19 21:08: Pt sitting in chair, most evening. Denies any further c/o. HL intact. Refuses any more meds for BM at this tiem. Call light w/in reach, Pt calls appropriately for assistance. Continue w/plan of care. Original Note: Addendum entered by Alicia Beach R.N. 02/17/19 17:29: Pt c/o pain in left leg. Tylenol given. Agreed to take MOM as well. Original Note: Pt. sitting in chair. Denies any discomfort. HL in the RFA intact/patent. Lower legs edematous as per normal, stated by pt. CBG = 114 no coverage required. Call light w/in reach. Pt calls appropriately for needs.
[2019-02-17] MEDS: WARFARIN 5 MG TABLET PO (17:18)
[2019-02-17] MEDS: ACETAMINOPHEN 325 MG TABLET 650 MG PO (17:19)
[2019-02-17] MEDS: MAGNESIUM HYDROXIDE 30 ML UDC PO (17:22)
--- NOTE | 2019-02-17 18:07 | ST.IP.CME ---
Care Team Visit Care Team Role Provider Type Johnny Saini MD Primary Care Provider Non-Staff Specialty: Internal Medicine Address: [address] [place], [address] Email: Davy Avalos DO Emergency Provider Physician Specialty: Emergency Medicine Address: [address] [place] [address], [address] Email: LYNNE Anaya Admit Provider Advanced Head Bucker Attending Provider Specialty: Internal Medicine Address: [address] [place] [address], [id number] Email: Current Diagnoses Type 2 diabetes mellitus without complications (02/13/19) Morbid (severe) obesity due to excess calories (02/13/19) Paroxysmal atrial fibrillation (02/13/19) Acute and chronic respiratory failure with hypoxia (02/13/19) Weakness (02/13/19) Adult failure to thrive (02/13/19) Past Medical History (Last Reviewed 02/13/19 @ 03:10 by LYNNE Anaya) Chronic anticoagulation (Acute Medical) Chronic respiratory failure with hypoxia and hypercapnia (Acute Medical) Iron deficiency anemia (Acute Medical) Morbid obesity (Acute Medical) Obesity hypoventilation syndrome (Acute Medical) Atrial fibrillation (Chronic Medical) Depression (Chronic Medical) Diabetes (Chronic Medical) Hyperlipidemia (Chronic Medical) Hypertension (Chronic Medical) Lumbar degenerative disc disease (Chronic Medical) Obesity (Chronic Medical) Osteoarthritis (Chronic Medical) Pneumococcal meningitis (Chronic Medical) 2007 Prolapsed bladder (Chronic Medical) Cholelithiasis (Resolved Medical) Fracture of left ankle (Resolved Medical) s/p ORIF with retained hardware Inguinal hernia (Resolved Medical) Speech-Language Pathology Cognitive Evaluation INFORMATICS APPLICATION ANALYST Cognitive/Memory Evaluation Start: 02/17/19 15:27 Freq: Status: Active Protocol: Document 02/17/19 15:30 LNK (Rec: 02/17/19 15:48 LNK [id number]) Evaluation of Cognition Session Time Visit Start Time 13:50 Visit Stop Time 14:20 Total Visit Minutes 30 Referral Reason for Referral Memory loss, confusion Evaluation Assessment Type SLUMS Past Medical History Patient History The patient was resting in bedside chair sleeping. No O2 in place. Pt had just seen OT. She is eager to return home but has discussed this with her daughter who is looking into assisted living facility for after skilled rehab. She has some insight into her needing more help than what she has at home. She has no complaints overall. She seems to be quite forgetful and likely has mild to moderate dementia. Order received for SLUMS to be performed today. Hearing Auditory History Hearing appeared to be W[facility] Vision Comments wears glasses Educational Status Education Level High School - - Cognition Orientation Skill Level WFL Attention Skill Level Moderately Impaired Comment pt kept falling asleep during tasks and/or while talking Problem Solving/Reasoning/Judgment Skill Level Moderately Impaired Comment due to excessive somnolence during tasks. Fell asleep mid -sentence Divergent Naming Skill Level Moderately Impaired Comment listed 5 animals in 1 minute Sequencing Skill Level Mildly Impaired Auditory Math Skill Level Moderately Impaired Comment needed to calculate with pen/ paper Clock Drawing Skill Level Moderately Impaired - Memory Short Term Memory Skill Level Moderately Impaired Immediate Recall Skill Level WFL Word Recall Skill Level Moderately Impaired Story Recall Skill Level WFL - Findings Cognitive/Memory Impressions Pt scored 19/20 on the SLUMS, which indicates dementia. What was interesting was that OT had just completed the SLUMS (unknown to this INFORMATICS APPLICATION ANALYST). The score obtained by OT was 22/30 indicating a mild cognitive impairment. The primary difference was that she had O2 via nasal canulla, where as for the ST evaluation , she did not have O2 in place . The pt continued to fall asleep during the assessment. When this INFORMATICS APPLICATION ANALYST started the SLUMS test, the pt was not able to remember that OT had just been in with the same test . She finally remembered the story at the end of test. Apparently there is a big difference in the pt's ability to cognitively function when wearing O2 compared to no O2. Pt appears to have diminished memory as well as difficulty with attention to tasks. Treatment Goals Short Term Goals Pt will be educated relative to the level of alertness and ability to be functional when wearing her O2 . Pt will be able to use compensatory activities to assist her in remembering recent events (calendar, notebook, etc.). Total Time Full Evaluation Time 30
[2019-02-17] MEDS: ATORVASTATIN 20 MG TABLET 80 MG PO (20:43)
[2019-02-17] MEDS: LOSARTAN 25 MG TABLET PO (20:44)
[2019-02-18] VITALS (8 sets, daily range): BP systolic 115–156; BP diastolic 62–75; PULSE 62–83; RESP 16–22; TEMP 36.1–37.2; O2SAT 91–94
--- NOTE | 2019-02-18 00:08 | PC.NURSE ---
2300- Pt resting in recliner w/ chair alarm in place. Admit for generalized weakness/falls; walking 1PA w/ FWW. Pt saline locked. Was told pt's BG was 89 at bed time when rechecked stable at 164. Moved from recliner to chair. Denies any needs.
[2019-02-18 06:58] LABS: Add Manual Diff / Slide Review NO; Basophils Absolute Auto 100 /uL (0-100); Basophils Percent Auto 1.1 % (0-2); Eosinophils Absolute Auto 200 /uL (0-450); Eosinophils Percent Auto 3.6 % (2-4); Hematocrit 34.2 % (36-46); Hemoglobin 10.4 g/dL (12.0-16.0); Lymphocytes Absolute Auto 1000 /uL (1100-4500); Lymphocytes Percent Auto 14.8 % (25-40); Mean Corpuscular HGB Conc 30.5 % (30-36); Mean Corpuscular Hemoglobin 23.4 PG (26-34); Mean Corpuscular Volume 76.6 fL (80-100); Monocytes Absolute Auto 500 /uL (0-900); Neutrophils Absolute Auto 5100 /uL (1500-7000); Neutrophils Percent Auto 73.5 % (50-75); Platelet Count 327 X10^3/uL (150-400); Red Blood Cell Count 4.47 X10^6/uL (4.0-5.2); Red Cell Distribution Width 23.7 % (11.6-14.8)
[2019-02-18 07:11] LABS: BUN Creatinine Ratio 18.6 (6-22); Blood Urea Nitrogen 13 mg/dL (7-17); Calcium 8.6 mg/dL (8.4-10.2); Carbon Dioxide 34 mmol/L (22-32); Chloride 94 mmol/L (98-107); Estimated Glomerular Filt Rate > 60.0 mL/min (>60); Glucose 115 mg/dL (80-110); HEMOLYSIS < 15 (0-50); INR 1.4 (0.9-1.3); Potassium 4.1 mmol/L (3.4-5.1); Prothrombin Time 16.7 SECONDS (10.1-12.7); Sodium 135 mmol/L (137-145)
[2019-02-18 07:34] LABS: Anisocytosis 2+; Hypochromasia 2+
--- NOTE | 2019-02-18 07:45 | PM.PN.1 ---
Subjective Date Patient Seen: 02/18/19 Interval history: Alem Donahue is a 68-year-old female with a past medical history for morbid obesity with obesity hypoventilation syndrome, COPD, active smoker, use of medications with predisposition to respiratory depression, non-compliance with oxygen therapy and CPAP who presented to the ED via EMS out of concern for weakness and frequent falls. The patient is resting in bedside chair comfortably. Interestingly, patient performed SLUMS yesterday afternoon with both occupational therapy and speech therapy with different results. The SLUMS performed by Occupational therapy the patient had oxygen on during evaluation and scored a 22. Then speech therapy performed identical SLUMS without oxygen on the patient in which she scored a 19 and did not remember any of the previous questions or answers. Discussed this with the patient in detail. Discussed the importance of her wearing oxygen in regard to her level of memory impairment and development of dementia. The patient then reported that her daughter is trying to find an assisted living facility and the only 1 left has a shared room which she is against. Informed the patient that we have already had this discussion for which she had no memory recollection. Patient has moderate dementia with significant memory impairment clinically. She has no complaints overall. She continues to be significantly weak and high risk of fall. She denies headache, cough, shortness of breath, chest pain, abdominal pain, nausea, vomiting, fever, chills, dysuria, diarrhea or constipation. She is voiding and eliminating without difficulty. She is up ambulating minimally with assistance and PT. Exam Vital Signs (past 8 hours): - 02/18/19 00:40 02/18/19 05:15 Temperature 97.2 F L 98.0 F Pulse Rate 62 77 Respiratory Rate 22 22 Blood Pressure 115/70 120/70 Pulse Oximetry 92 92 Fraction of Inspired Oxygen 21 Oxygen Delivery Method Nasal Cannula Oxygen Flow Rate 2 Narrative Exam Narrative: General: Older female sitting in bedside chair and in no acute distress, appears older than stated age, well-developed, well-nourished, moderate dementia with short-term memory recall impairment but appropriately interactive. HEENT: Normocephalic, atraumatic. External ears without defect. Pupils equal, round, and reactive to light. Anicteric sclerae, moist conjunctivae, and no lid lag. Neck: Supple with full range of motion. No lymphadenopathy or thyromegaly. Cardiovascular: Regular rhythm, bradycardic, without murmurs, rubs, or gallops appreciated. Pulmonary: Diminished throughout but clear to auscultation bilaterally with fine bibasilar crackles. Normal respiratory effort with no use of accessory muscles. Abdomen: Soft, obese, bowel sounds present, nontender, nondistended. No hepatosplenomegaly or masses appreciated. Extremities: No clubbing or cyanosis. Mild bipedal edema. Skin: Normal temperature, turgor, and texture; no rash, ulcers, or subcutaneous nodules appreciated. Neurological: Cranial nerves grossly intact. Psychiatric: Normal mood and affect. Alert and oriented to person and place. Moderate dementia with short-term memory recall impairment. Objective Labs Result Diagrams: 02/18/19 06:37 02/18/19 06:37 Labs: Laboratory Results - last 24 hr 02/17/19 02/17/19 02/18/19 06:25 06:25 06:37 WBC RBC Hgb Hct MCV MCH MCHC RDW Plt Count Neut % (Auto) Lymph % (Auto) [place] % (Auto) Eos % (Auto) Baso % (Auto) Neut # (Auto) Lymph # (Auto) [place] # (Auto) Eos # (Auto) Baso # (Auto) RBC Morphology See below Hypochromasia 1+ H Anisocytosis 3+ H Microcytosis 1+ H PT 16.7 H INR 1.4 H Sodium Potassium Chloride Carbon Dioxide BUN Creatinine Estimated GFR BUN/Creatinine Ratio Glucose Calcium Vitamin B12 324 Folate 4.7 02/18/19 02/18/19 06:37 06:37 WBC 7.0 RBC 4.47 Hgb 10.4 L Hct 34.2 L MCV 76.6 L MCH 23.4 L MCHC 30.5 RDW 23.7 H Plt Count 327 Neut % (Auto) 73.5 Lymph % (Auto) 14.8 L [place] % (Auto) 7.0 Eos % (Auto) 3.6 Baso % (Auto) 1.1 Neut # (Auto) 5100 Lymph # (Auto) 1000 L [place] # (Auto) 500 Eos # (Auto) 200 Baso # (Auto) 100 RBC Morphology Not Reportable Hypochromasia 2+ H Anisocytosis 2+ H Microcytosis PT INR Sodium 135 L Potassium 4.1 Chloride 94 L Carbon Dioxide 34 H BUN 13 Creatinine 0.70 Estimated GFR > 60.0 BUN/Creatinine Ratio 18.6 Glucose 115 H Calcium 8.6 Vitamin B12 Folate Assessment & Plan Assessment & Plan narrative: Alem Donahue is a 68-year-old female with a past medical history for morbid obesity with obesity hypoventilation syndrome, COPD, active smoker, use of medications with predisposition to respiratory depression, non-compliance with oxygen therapy and CPAP who presented to the ED via EMS out of concern for weakness and frequent falls. 1. Acute on chronic generalized weakness and physical deconditioning, present on admission. Active and ongoing. -Multi-factorial and due to debility and deconditioning, hypovolemia, poor adherence to recommended medical/oxygen therapy, morbid obesity, anemia, chronic hypoxemia and hypoventilation. -Consulted with DRYWALL MECHANIC for SNF placement. -Continue PT and OT. 2. Acute on chronic hypoxemic and hypercabic respiratory, present on admission. Acute exacerbation resolved. -Underlying contributing co-morbidities of COPD, obesity hypoventilation syndrome, use of medications with predisposition to respiratory depression, daily smoker, non-compliance with oxygen therapy and CPAP. -Presented with weakness, multiple falls, and hypersomnolence. -ABG: pH 7.31, pCO2 64.6, pO2 46, HCO3 33 with compensated respiratory acidosis. -Echo limited, 06/12/2018: LV normal in size and systolic function. EF 60-65%. No obvious focal wall motion abnormalities. -Continue supplemental oxygen, maintain SpO2 between 88-92%. Patient is refusing oxygen. -Chest xray did not demonstrate any acute cardiopulmonary abnormalities. -Limit use of FOREST FIREFIGHTER depressing medications and perform neuro checks often monitoring for worsening confusion and somnolence. 3. Acute UTI, present on admission. Resolved. -Urine culture grew strep virdans. -Received full course of treatment with levofloxacin (2 doses) and ceftriaxone (3 doses). 4. Acute hypotension, secondary to hypovelmia, present on admission. Resolved. -Received 1L NS bolus in ED and IV fluid until adequately hydrated. -Held anti-hypertensives initially. Patient continues to have low normal blood pressure (on antihypertensives) but no longer hypotensive. 5. Moderate dementia, chronic, present on admission. Active. Acute metabolic encephalopathy resolved. -Baseline mental status unclear. Patient is unable to give any insight into medical care or medication management including warfarin. -Continue supplemental oxygen as above. -Two SLUMS done performed by OT and ST, demonstrated 2 different scores, 1 with oxygen 1 without, which were 22 and 19, respectively. -Based on clinical assessment and SLUMS patient has moderate dementia with significant memory impairment. -Consult social work, re: evaluate home safety and ability to live on her own. She lacks awareness of her underlying medical conditions. She has not incapacity to manage her own medications. She appears to have limited involvement in self-care. 6. Paroxysmal atrial fibrillation, on warfarin, present on admission. Stable. -Continues to be SR. Continue rate control/BP medications as below. -Previously anti-coagulated with coumadin; INR is sub-therapeutic. Per patient, she has not missed any doses. Not entirely clear how often checks INR or if she is still on coumadin. -[id number] Score 5 (age, gender, CHF, HTN, DM). Given that patient has frequent falls, consider re-evaluation of benefits of anti-coagulation vs. risks of bleeding and will defer to PCP. -Continue warfarin and increasing dose as she continues to be subtherapeutic. Check INR daily and will adjust as necessary. 7. Hypertension, hyperlipidemia, and systolic CHF, chronic, present on admission. Stable -Continue cardiac meds including: aspirin, atorvastatin, digoxin, diltiazem lowered from 240 to 120 mg daily, losartan lowered from 50 to 25 mg daily, metoprolol lowered from 100 to 50 mg daily, potassium chloride, torsemide and warfarin. 8. Diabetes mellitus type II, non-insulin using, present on admission. Stable. -Hemoglobin A1C 6.3% 01/2019. -Held metformin. Consider replacing metformin with another anti-diabetic agent outpatient. Metformin associated lactic acidosis is not common; however, this particular patient has underlying tissue hypoperfusion and perhaps another medication with lesser risks for lactic acidosis would be more ideal. -Continue ACHS glucose checks and low dose correctional scale insulin. -Continue heart healthy, carb consistent diet. -Continue gabapentin 600 mg three times daily. 9. Tobacco dependence, chronic, present on admission. Stable. -Smokes 1 ppd. -Reports trying Chantix in the past for smoking cessation. Notes it to be temporarily effective. Currently no desire to quit smoking, however lacks motivation. -Continue nicotine patch as needed for nicotine withdrawal. -Counseled the patient on smoking cessation. 10. Microcytic hypochromic anemia, chronic, present on admission. Stable. -Secondary to iron deficiency. -Hgb 10.3 MCV 76.3 MCHC 29.7 RDW 22.9. -Continue ferrous sulfate 325 mg daily. -No overt signs of bleeding. Continue to monitor. 11. Chronic pain with opiate dependence, present on admission. Stable. -Currently in no pain. -Minimize use of opiates and other FOREST FIREFIGHTER suppressing medications due to associated risks respiratory depression. 12. Overactive bladder, present on admission. Stable. -Continue oxybutynin 5 mg twice daily. 13. Morbid obesity, present on admission. Stable. -BMI 49. -Counseled patient regarding lifestyle modification and weight reduction. Disposition: Awaiting placement at intermediate facility for rehabilitation due to generalized weakness, deconditioning and physical debility. Quality VTE Deep Vein Thrombosis/Pulmonary Embolism Present on Admission: No
[2019-02-18] MEDS: INSULIN ASPART 100 UNIT/ML INSULN PEN SUBCUT ×2 (08:23→11:59)
[2019-02-18] MEDS: NICOTINE 21 MG PATCH TOP (08:24)
[2019-02-18] MEDS: URSODIOL 300 MG CAPSULE PO ×2 (08:24→21:31)
[2019-02-18] MEDS: FERROUS SULFATE 325 MG TABLET PO (08:25)
[2019-02-18] MEDS: ASPIRIN EC 81 MG TABLET PO (08:25)
[2019-02-18] MEDS: OXYBUTYNIN 5 MG TABLET PO ×2 (08:25→21:32)
[2019-02-18] MEDS: POTASSIUM CHLORIDE 10 MEQ TAB PO (08:26)
[2019-02-18] MEDS: GABAPENTIN 600 MG TABLET PO ×3 (08:26→20:04)
[2019-02-18] MEDS: dilTIAZem CD 120 MG CAP PO (08:26)
[2019-02-18] MEDS: HEPARIN 5,000 UNIT/ML VIAL 5000 UNIT SUBCUT ×2 (08:26→20:04)
[2019-02-18] MEDS: SODIUM CHLORIDE 0.9% FLUSH 10 ML IV ×2 (08:29→20:06)
[2019-02-18] MEDS: ACETAMINOPHEN 325 MG TABLET 650 MG PO ×2 (08:29→20:06)
[2019-02-18] MEDS: TORSEMIDE 10 MG TABLET PO (08:38)
--- NOTE | 2019-02-18 10:51 | PT.IPTN ---
Current Diagnoses Type 2 diabetes mellitus without complications (02/13/19) Morbid (severe) obesity due to excess calories (02/13/19) Paroxysmal atrial fibrillation (02/13/19) Acute and chronic respiratory failure with hypoxia (02/13/19) Weakness (02/13/19) Adult failure to thrive (02/13/19) Physical Therapy Treatment Note M2 PT-IP Current Condition Start: 02/13/19 09:10 Freq: NEEDED Status: Active Protocol: Document 02/13/19 09:15 SAK (Rec: 02/13/19 11:47 SAK [id number]) Physical Therapy Current Condition Current Condition Evaluation Date 02/13/19 Treatment Diagnosis weakness, frequent falls Onset Date 02/12/19 Weight Bearing Status Weight Bearing Status Full Weight Bearing M3 PT-IP Subjective Start: 02/13/19 09:10 Freq: NEEDED Status: Active Protocol: Document 02/18/19 10:50 GGD (Rec: 02/18/19 10:51 GGD [id number]) Subjective Physical Therapy Visit Type Type Patient Refusal Notes Pt refused, she states that she is tired after speech therapy. Will see in PM. M4 PT-IP Recommendations To Nursing Amount of Assist Needed Standby Assistance Discharge Recommendations PT Discharge Recommendations SNF Rehab
--- NOTE | 2019-02-18 10:58 | ST.IPTN ---
Care Team Visit Care Team Role Provider Type Johnny Saini MD Primary Care Provider Non-Staff Address: [address] , [place], [address] Davy Avalos DO Emergency Provider Physician Address: [address] [place] [address], [address] LYNNE Anaya Admit Provider Advanced Clutch Rebuilder Attending Provider Address: [address] [place] [address], [id number] ANIMAL HOSPITAL CLERK Treatment Note ANIMAL HOSPITAL CLERK Treatment Note Start: 02/17/19 15:27 Freq: Status: Active Protocol: Document 02/18/19 10:52 MRM (Rec: 02/18/19 10:57 MRM [id number]) Speech Pathology Treatment Note Session Time Visit Start Time 10:15 Visit Stop Time 10:35 Total Visit Minutes 20 Setting Treatment Setting Acute Care Visit Type Note Type Treatment Note Next Note Type Next Note Type Treatment Note General Information General Information Patient is a 68 year old female who was admitted to [facility] out of concern for progressive weakness and multiple falls. See H&P for more details. Was evaluated by OT on 02/17/19 and scored a 22/30 on the SLUMS. Was then seen by speech therapist for re- administration of SLUMS without wearing 02, and she scored 19/30 with frequent falling asleep. Subjective Identification Type Name ID Wristband Observations/Patient Presentation Patient eager to discharge to assisted living facility close to family and worried that there won't be one available that is close by. Chief Complaint(s) Cognitive Patient Knowledge/Awareness of ANIMAL HOSPITAL CLERK Role Fair in Treatment Objective Halfway Goals Improve in attention and functional problem solving to maintain safety after discharge. Treatment Activities ANIMAL HOSPITAL CLERK reviewed results of the SLUMS performed yesterday. Patient unable to recall being seen by speech therapist. Only remembered the therapist with dark hair. ANIMAL HOSPITAL CLERK explained the importance of wearing 02, but the patient adamently stated that she did not like to be on 02 and was not going to wear it all day and night. ANIMAL HOSPITAL CLERK discussed the importance of being able to maintain adequate respiration for sustained health and improved memory skills. Patient verbalized understanding. ANIMAL HOSPITAL CLERK provided memory strategies to improve her ability to keep up with staff discussions regarding overall health and discharge plans. Patient has small notepad at bedside and agreed to use this for notetaking in upcoming meetings about plan of care. Assessment Patient Response to Treatment Fair Impairments Identified Cognitive-Linguistic Skills Progress Towards Goals Slow Progress Assessment of Improvement Continued memory impairment with stated noncompliance with wearing 02. Reviewed with Patient Goals Plan Therapeutic Contents Cognitive-Linguistic Training Therapy Recommendations Continue with Current Program
--- NOTE | 2019-02-18 12:12 | PC.NURSE ---
AM NOTE - was dozing in chair w/le elev, when awake le are dependent and dusky, enc elev when possible, 2+ pedal edema, hr 84, 2l 94%, chronic back pain, given 650mg po tylenol this am, later up with OT, using fww ambul hallway, leans over the fww, gait slow, steady, ret to chair w/alarm set.
--- NOTE | 2019-02-18 12:18 | CM.DPC ---
DCP Cont: Urvashi from [facility] came to see patient today. Gave her updated regarding condition, and home situation. She has spent approximately 40 minutes speaking to patient. Called her back with updated. She stated that she was unsure if she could accept patient due to lack of motivation. Let her know that patient has been weak, and needs encouragement to do physical therapy. She also stated that the patient indicated that she would only be there for a few days. Let her know that patient does get confused at times, and may not have a full concept of time there. Family is also working on getting patient care at home, or at [facility]. She stated that they would review her case and have an answer by tomorrow. P: DCP to continue to follow. Follow up with [facility] tomorrow regarding decision, if they can accept her. Continue to update family. Left message with Shreyas, son, as well as Brionna, for them to call. Iman Allen RN/Home Comfort Advisor
--- NOTE | 2019-02-18 13:01 | OT.IP.TRT ---
Current Diagnoses Type 2 diabetes mellitus without complications (02/13/19) Morbid (severe) obesity due to excess calories (02/13/19) Paroxysmal atrial fibrillation (02/13/19) Acute and chronic respiratory failure with hypoxia (02/13/19) Weakness (02/13/19) Adult failure to thrive (02/13/19) Occupational Therapy Treatment Note M2 OT-IP Current Condition Start: 02/13/19 11:18 Freq: Status: Active Protocol: Document 02/13/19 13:44 [facility] (Rec: 02/13/19 14:10 [facility] [id number]) Occupational Therapy Current Condition Current Condition Evaluation Date 02/13/19 Treatment Diagnosis Acute respiratory failure with hypoxia Diagnosis Onset Date 02/13/19 M3 OT- IP Subjective and Pain Start: 02/13/19 11:18 Freq: Status: Active Protocol: Document 02/18/19 12:50 [facility] (Rec: 02/18/19 13:01 [facility] [id number]) OT- Subjective Occupational Therapy Visit Type Type Treatment Note Visit Start Time 11:55 Visit Stop Time 12:18 Total Visit Minutes 23 Occupational Therapy Visit Comments Patient Comments Pt not wanting to use the bathroom or wash up at this time but agreeable to go for a walk with 4WW. OT Pain Assessment Pain When Pain Assessed At Rest Pain Present Pain Present Denied Pain M4 OT- IP ADL's Start: 02/13/19 11:18 Freq: Status: Active Protocol: Document 02/18/19 12:50 [facility] (Rec: 02/18/19 13:01 [facility] [id number]) OT ADL-Dressing General Eval Upper Body Dressing Ability Standby Assistance Lower Body Dressing Ability Standby Assistance Comments OT Dressing Comments Pt able to quyen socks while sitting from the recliner safely. Able to bend forwards. Pt states wanting use of enrollment services vice president, but able to educate her better to continue to be able to do things for herself if able. M5 OT- IP IADL's Start: 02/13/19 11:18 Freq: Status: Active Protocol: Document 02/13/19 13:44 [facility] (Rec: 02/13/19 14:10 [facility] [id number]) OT-Instrumental Activities of Daily Living Meal Preparation Meal Preparation Caregiver Provides Assist Manager Latin Manager Latin Caregiver Provides Assist M6 OT- IP Functional Cognition Start: 03/21/19 11:18 Freq: Status: Active Protocol: Document 02/18/19 12:50 [facility] (Rec: 02/18/19 13:01 [facility] [id number]) Cognitive Factors Limiting Selfcare Function Cognitive Ability Level of Alertness Alert Patient Orientation Name Date Year Day of Week Place Situation Attention Span Ability Capable of Focused Attention Capable of Sustained Attention Ability to Follow Commands Able to Follow One Step Commands Memory Description Short Term Impaired Safety Awareness Underestimates Need for Assistance Problem Solving Ability Unable to Identify Errors Needs Assist to Identify Solutions Executive Function Ability Unable to Remember Details Cognitive Comments Cognitive Assessment Comments Pt good understanding of knowing when she needed to rest and sit down while walking with 4WW. Pt continues to prefer to lean onto the handles of 4WW versus stand straight up at this time. Pt able to stand straight for two steps and then back to leaning forwards. M7 OT- IP Mobility and Balance Start: 02/13/19 11:18 Freq: Status: Active Protocol: Document 02/18/19 12:50 [facility] (Rec: 02/18/19 13:01 [facility] [id number]) OT-Transfer Assessment Sit to and From Stand Sit to and from Stand Standby Assistance 1 Person Assistance Transfers Transfer Ability Standby Assistance Total Assistance Technique Transfer Destination Chair Transfer Technique Stand Pivot Devices Transfer Assistive Devices Gait Belt 4 Wheeled Walker Comments Mobility Comments Pt still having difficulty turn to sit to 4WW. Pt has move difficulty to come up from 4WW as 4ww gets stuck on her hips and needing ELIZ for balance. Pt will continue to benefit from more practice and a wider 4WW would be beneficial for pt to use for safety. OT- Gait Assessment Gait Gait Assistance Required: Standby Assistance 1 Person Assist Distance (Feet) 75 Assistive Devices Assistive Device Gait Belt 4 Wheeled Walker Comments Gait Ability Comments 75ft x 2 with 4WW, CGA/ELIZ to sit to 4WW and get up from 4WW. OT- Balance Assessment Sitting Balance and Reactions Static Sitting Balance Ability Normal Dynamic Sitting Balance Ability Normal Standing Balance and Reactions Static Standing Balance Ability Good Dynamic Standing Balance Ability Fair M8 OT- IP Objective Assessments Start: 02/13/19 11:18 Freq: Status: Active Protocol: Document 02/13/19 13:44 [facility] (Rec: 02/13/19 14:10 [facility] [id number]) OT Gross Range of Motion Upper Extremity Range of Motion Assessment Right Impaired ROM Impairments LUE WFL RUE instead of shoulder flexion tends to compensate with shoulder scaption. OT Strength Comments Strength Comments RUE from proximal to distal 3- /5 to 3+/5, LUE 4-/5. M9 OT- IP Assessment and Plan Start: 02/13/19 11:18 Freq: Status: Active Protocol: Document 02/18/19 12:50 [facility] (Rec: 02/18/19 13:01 [facility] [id number]) OT Summary Assessment and Plan Potential Rehabilitation Potential Good Analytic Complexity at Evaluation Low Summary OT Impairments Range of Motion Strength Balance Functional Cognition Functional Mobility Grooming Dressing Toileting Bathing Toilet Transfers Shower Transfers Progress Towards Goals Progressing Toward Goals Slow Progress due to Activity Tolerance Slow Progress due to Cognition Assessment Summary Pt doing better for participation in therapy. O2 on RA and able to maintain above 92% even after walking in the hallway. Pt would benefit from skilled rehab to continue to work on STM strategies and increase overall endurance and dynamic balance. Goals Grooming Goal Independent Dressing Goal Independent Toileting Goal Independent Bathing Goal Standby Assistance Toilet Transfer Goal Standby Assistance Bedside Commode Grab Bars Shower Transfer Goal Contact Guard Assistance Tub Transfer Bench Grab Bars Days to Meet Goals 4 Frequency of Treatment Frequency Of Treatment Once a Day Treatment Plan OT Treatment Plan ADL Training Functional Cognition Training Functional Mobility Patient/Family Education Discharge Planning Other Treatment Recommendations and Next Shower Treatment Focus Discharge Recommendations OT Discharge Recommendations SNF Rehab Home Equipment Needs [facility]
--- NOTE | 2019-02-18 15:42 | PT.IPTN ---
Current Diagnoses Type 2 diabetes mellitus without complications (02/13/19) Morbid (severe) obesity due to excess calories (02/13/19) Paroxysmal atrial fibrillation (02/13/19) Acute and chronic respiratory failure with hypoxia (02/13/19) Weakness (02/13/19) Adult failure to thrive (02/13/19) Physical Therapy Treatment Note M2 PT-IP Current Condition Start: 02/13/19 09:10 Freq: NEEDED Status: Active Protocol: Document 02/13/19 09:15 [facility] (Rec: 02/13/19 11:47 [facility] [id number]) Physical Therapy Current Condition Current Condition Evaluation Date 02/13/19 Treatment Diagnosis weakness, frequent falls Onset Date 02/12/19 Weight Bearing Status Weight Bearing Status Full Weight Bearing M3 PT-IP Subjective Start: 02/13/19 09:10 Freq: NEEDED Status: Active Protocol: Document 02/18/19 15:41 [facility] (Rec: 02/18/19 15:42 [facility] [id number]) Subjective Physical Therapy Visit Type Type Patient Refusal Notes Pt refused stating she walked with OT and didn't want to get up at this time.
[2019-02-18] MEDS: DIGOXIN 0.125 MG TABLET PO (17:03)
[2019-02-18] MEDS: WARFARIN 5 MG TABLET PO (17:04)
--- NOTE | 2019-02-18 17:11 | PC.NURSE ---
Addendum entered by Alicia Beach R.N. 02/18/19 21:18: Relatively uneventful evening. Denies any issues. HL intact/patent. HS CBG = 137, no coverage required. Condition remains essentially unchanged Call light w/in reach, chair alarm on for pt safety. Continue w/plan of care. Original Note: Pt sitting in chair. Denies discomfort. Lungs diminished at bases SpO2 95% RA HL right arm intact/patent. Pt request to hole S/S insulin until HS. Call light w/in reach, chair alarm on for pt safety.
[2019-02-18] MEDS: ATORVASTATIN 20 MG TABLET 80 MG PO (20:05)
[2019-02-18] MEDS: LOSARTAN 25 MG TABLET PO (21:31)
[2019-02-19] VITALS (9 sets, daily range): BP systolic 103–134; BP diastolic 66–77; PULSE 69–90; RESP 16–20; TEMP 36.4–37.1; O2SAT 91–95
--- NOTE | 2019-02-19 00:21 | PC.NURSE ---
2300- Handoff complete. Pt in recliner on RA; states she has no pain or difficulty breathing. Chair alarm in place for hx of falls & PT safety. BG stable @ 137 before before bedtime. Denies any needs at this time.
--- NOTE | 2019-02-19 08:34 | PM.PN.1 ---
Subjective Date Patient Seen: 02/19/19 Interval history: Alem Donahue is a 68-year-old female with a past medical history for morbid obesity with obesity hypoventilation syndrome, COPD, active smoker, use of medications with predisposition to respiratory depression, non-compliance with oxygen therapy and CPAP who presented to the ED via EMS out of concern for weakness and frequent falls. The patient is resting in bedside chair comfortably. She has no complaints overall. She continues to be significantly weak and high risk of fall with very slow improvement. She denies headache, cough, shortness of breath, chest pain, abdominal pain, nausea, vomiting, fever, chills, dysuria, diarrhea or constipation. She is voiding and eliminating without difficulty. She is up ambulating minimally with assistance and PT. Exam Vital Signs (past 8 hours): - 02/19/19 01:10 02/19/19 03:58 02/19/19 07:00 Temperature 97.6 F 98.0 F 98.7 F Pulse Rate 73 79 90 Respiratory Rate 16 17 16 Blood Pressure 132/68 103/77 121/68 Pulse Oximetry 95 93 94 Fraction of Inspired Oxygen 21 Oxygen Delivery Method Room Air,Nasal Cannula Oxygen Flow Rate 0 Narrative Exam Narrative: General: Older female sitting in bedside chair and in no acute distress, appears older than stated age, well-developed, well-nourished, moderate dementia with short-term memory recall impairment but appropriately interactive. HEENT: Normocephalic, atraumatic. External ears without defect. Pupils equal, round, and reactive to light. Anicteric sclerae, moist conjunctivae, and no lid lag. Neck: Supple with full range of motion. No lymphadenopathy or thyromegaly. Cardiovascular: Regular rhythm and rate, without murmurs, rubs, or gallops appreciated. Pulmonary: Diminished throughout but clear to auscultation bilaterally with fine bibasilar crackles. Normal respiratory effort with no use of accessory muscles. Abdomen: Soft, obese, bowel sounds present, nontender, nondistended. No hepatosplenomegaly or masses appreciated. Extremities: No clubbing or cyanosis. Mild bipedal edema. Skin: Normal temperature, turgor, and texture; no rash, ulcers, or subcutaneous nodules appreciated. Neurological: Cranial nerves grossly intact. Psychiatric: Normal mood and affect. Alert and oriented to person and place. Moderate dementia with short-term memory recall impairment. Objective Labs Result Diagrams: 02/18/19 06:37 02/18/19 06:37 Assessment & Plan Assessment & Plan narrative: Alem Donahue is a 68-year-old female with a past medical history for morbid obesity with obesity hypoventilation syndrome, COPD, active smoker, use of medications with predisposition to respiratory depression, non-compliance with oxygen therapy and CPAP who presented to the ED via EMS out of concern for weakness and frequent falls. 1. Acute on chronic generalized weakness and physical deconditioning, present on admission. Active and ongoing. -Multi-factorial and due to debility and deconditioning, hypovolemia, poor adherence to recommended medical/oxygen therapy, morbid obesity, anemia, chronic hypoxemia and hypoventilation. -Consulted with DIRECTOR OF CONTRACTS for SNF placement. -Continue PT and OT. 2. Acute on chronic hypoxemic and hypercabic respiratory, present on admission. Acute exacerbation resolved. -Underlying contributing co-morbidities of COPD, obesity hypoventilation syndrome, use of medications with predisposition to respiratory depression, daily smoker, non-compliance with oxygen therapy and CPAP. -Presented with weakness, multiple falls, and hypersomnolence. -ABG: pH 7.31, pCO2 64.6, pO2 46, HCO3 33 with compensated respiratory acidosis. -Echo limited, 06/12/2018: LV normal in size and systolic function. EF 60-65%. No obvious focal wall motion abnormalities. -Continue supplemental oxygen, maintain SpO2 between 88-92%. Patient is refusing oxygen. -Chest xray did not demonstrate any acute cardiopulmonary abnormalities. -Limit use of SHOTGUN SHELL LOADING MACHINE OPERATOR depressing medications and perform neuro checks often monitoring for worsening confusion and somnolence. 3. Acute UTI, present on admission. Resolved. -Urine culture grew strep virdans. -Received full course of treatment with levofloxacin (2 doses) and ceftriaxone (3 doses). 4. Acute hypotension, secondary to hypovelmia, present on admission. Resolved. -Received 1L NS bolus in ED and IV fluid until adequately hydrated. -Held anti-hypertensives initially. Patient continues to have low normal blood pressure (on antihypertensives) but no longer hypotensive. 5. Moderate dementia, chronic, present on admission. Active. Acute metabolic encephalopathy resolved. -Baseline mental status unclear. Patient is unable to give any insight into medical care or medication management including warfarin. -Continue supplemental oxygen as above. -Two SLUMS done performed by OT and ST, demonstrated 2 different scores, 1 with oxygen 1 without, which were 22 and 19, respectively. -Based on clinical assessment and SLUMS patient has moderate dementia with significant memory impairment. -Consult social work, re: evaluate home safety and ability to live on her own. She lacks awareness of her underlying medical conditions. She has not incapacity to manage her own medications. She appears to have limited involvement in self-care. 6. Paroxysmal atrial fibrillation, on warfarin, present on admission. Stable. -Continues to be SR. Continue rate control/BP medications as below. -Previously anti-coagulated with coumadin; INR is sub-therapeutic. Per patient, she has not missed any doses. Not entirely clear how often checks INR or if she is still on coumadin. -[id number] Score 5 (age, gender, CHF, HTN, DM). Given that patient has frequent falls, consider re-evaluation of benefits of anti-coagulation vs. risks of bleeding and will defer to PCP. -Continue warfarin and increasing dose as she continues to be subtherapeutic. Check INR daily and will adjust as necessary. 7. Hypertension, hyperlipidemia, and systolic CHF, chronic, present on admission. Stable -Continue cardiac meds including: aspirin, atorvastatin, digoxin, diltiazem lowered from 240 to 120 mg daily, losartan lowered from 50 to 25 mg daily, metoprolol lowered from 100 to 50 mg daily, potassium chloride, torsemide and warfarin. 8. Diabetes mellitus type II, non-insulin using, present on admission. Stable. -Hemoglobin A1C 6.3% 01/2019. -Held metformin. Consider replacing metformin with another anti-diabetic agent outpatient. Metformin associated lactic acidosis is not common; however, this particular patient has underlying tissue hypoperfusion and perhaps another medication with lesser risks for lactic acidosis would be more ideal. -Continue ACHS glucose checks and low dose correctional scale insulin. -Continue heart healthy, carb consistent diet. -Continue gabapentin 600 mg three times daily. 9. Tobacco dependence, chronic, present on admission. Stable. -Smokes 1 ppd. -Reports trying Chantix in the past for smoking cessation. Notes it to be temporarily effective. Currently no desire to quit smoking, however lacks motivation. -Continue nicotine patch as needed for nicotine withdrawal. -Counseled the patient on smoking cessation. 10. Microcytic hypochromic anemia, chronic, present on admission. Stable. -Secondary to iron deficiency. -Hgb 10.3 MCV 76.3 MCHC 29.7 RDW 22.9. -Continue ferrous sulfate 325 mg daily. -No overt signs of bleeding. Continue to monitor. 11. Chronic pain with opiate dependence, present on admission. Stable. -Currently in no pain. -Minimize use of opiates and other SHOTGUN SHELL LOADING MACHINE OPERATOR suppressing medications due to associated risks respiratory depression. 12. Overactive bladder, present on admission. Stable. -Continue oxybutynin 5 mg twice daily. 13. Morbid obesity, present on admission. Stable. -BMI 49. -Counseled patient regarding lifestyle modification and weight reduction. Disposition: [facility] due to generalized weakness, deconditioning and physical debility. Quality VTE Deep Vein Thrombosis/Pulmonary Embolism Present on Admission: No
--- NOTE | 2019-02-19 08:40 | CM.DPC ---
Addendum entered by Elissa Wharton LPN 02/19/19 16:18: [facility] notes the [facility] auth has been received. She reports they are unable to accept pt this late in the day but will set up transport service for tomorrow at 1230 in anticipation of the d/c. Dr. Ayala is updated. Met with pt who is very agreeable to the plan. Vm left for [facility] Pritche[facility]. Will follow up tomorrow to facilitate the d/c Original Note: Addendum entered by Elissa Wharton LPN 02/19/19 10:54: [place] [facility] [place] talked with administration and they will accept pt. Needed now is the [facility] auth and she is working on this now. Dr. Ayala is updated in Team Rounds. Original Note: DCP: continued: Case received again and EMR for last few days is reviewed. In followup to DCP/snf referrals: have now left a vm for admissions/[facility] to further discuss this case, noting the concerns re pt's smoking history. Have also left a message with admissions/[facility] as [facility]MAEL Valerio indicates they should have a decision today re ? of acceptance; Pt also will need [facility] auth: these facilities are both in network with pt.
[2019-02-19] MEDS: INSULIN ASPART 100 UNIT/ML INSULN PEN SUBCUT (09:06)
[2019-02-19] MEDS: ASPIRIN EC 81 MG TABLET PO (09:08)
[2019-02-19] MEDS: POTASSIUM CHLORIDE 10 MEQ TAB PO (09:08)
[2019-02-19] MEDS: FERROUS SULFATE 325 MG TABLET PO (09:09)
[2019-02-19] MEDS: GABAPENTIN 600 MG TABLET PO ×3 (09:09→21:05)
[2019-02-19] MEDS: OXYBUTYNIN 5 MG TABLET PO ×2 (09:09→21:06)
[2019-02-19] MEDS: NICOTINE 21 MG PATCH TOP (09:09)
[2019-02-19] MEDS: dilTIAZem CD 120 MG CAP PO (09:09)
[2019-02-19] MEDS: TORSEMIDE 10 MG TABLET PO (09:09)
[2019-02-19] MEDS: URSODIOL 300 MG CAPSULE PO ×2 (09:10→21:06)
[2019-02-19] MEDS: HEPARIN 5,000 UNIT/ML VIAL 5000 UNIT SUBCUT ×2 (09:12→21:07)
[2019-02-19] MEDS: SODIUM CHLORIDE 0.9% FLUSH 10 ML IV ×2 (09:18→21:07)
--- NOTE | 2019-02-19 09:40 | PT.IPTN ---
Current Diagnoses Type 2 diabetes mellitus without complications (02/13/19) Morbid (severe) obesity due to excess calories (02/13/19) Paroxysmal atrial fibrillation (02/13/19) Acute and chronic respiratory failure with hypoxia (02/13/19) Weakness (02/13/19) Adult failure to thrive (02/13/19) Physical Therapy Treatment Note M2 PT-IP Current Condition Start: 02/13/19 09:10 Freq: NEEDED Status: Active Protocol: Document 02/13/19 09:15 [facility] (Rec: 02/13/19 11:47 [facility] [id number]) Physical Therapy Current Condition Current Condition Evaluation Date 02/13/19 Treatment Diagnosis weakness, frequent falls Onset Date 02/12/19 Weight Bearing Status Weight Bearing Status Full Weight Bearing M3 PT-IP Subjective Start: 02/13/19 09:10 Freq: NEEDED Status: Active Protocol: Document 02/19/19 09:00 [facility] (Rec: 02/19/19 09:40 [facility] [id number]) Subjective Physical Therapy Visit Type Type Treatment Note Visit Start Time 09:00 Visit Stop Time 09:33 Total Visit Minutes 33 Notes Pt in chair willing to get up and ambulate M4 PT-IP Mobility and Gait Start: 02/13/19 09:10 Freq: NEEDED Status: Active Protocol: Document 02/19/19 09:00 LJ (Rec: 02/19/19 09:40 [facility] [id number]) PT-Transfer Assessment Sit to and From Stand Sit to and from Stand Standby Assistance Use of Upper Extremities Equipment Transfer Assistive Device Gait Belt 4 Wheeled Walker Transfers Transfer Destination Chair Gait Assessment Gait Gait Assistance Required: Standby Assistance Distance (Feet) 290 Assistive Devices Assistive Device Gait Belt 4 Wheeled Walker Gait Deviations General Gait Pattern Decreased Stride Length Decreased Feet Clearance Flexed Trunk Wide Based Gait Factors Limiting Gait Function Factors Limiting Gait Function Decreased Activity Tolerance Decreased Strength Pain Poor Balance Poor Safety Awareness Comments Gait Comments Pt got out of chair to use BSC -stand step pivot. from BSC 20 ' to W/c in hallway. She then ambululated 100' to end of hallway. Pt sat for 2 min then ambulated another 150' back to room. M5 PT-IP Objective Assessments Start: 02/13/19 09:10 Freq: NEEDED Status: Active Protocol: Document 02/13/19 09:15 [facility] (Rec: 02/13/19 11:47 [facility] [id number]) Gross Range of Motion Upper Extremity ROM Assessment Within Functional Limits Lower Extremity ROM Assessment Within Functional Limits Strength Upper Extremity Strength Assessment Within Functional Limits Lower Extremity Strength Assessment Bilaterally Impaired Comments Strength Comments Refused testing; too tired. Has active antigravity ankle dorsiflexion and knee extension. M6 PT-IP Treatment Start: 02/13/19 09:10 Freq: NEEDED Status: Active Protocol: Document 02/16/19 11:19 [facility] (Rec: 02/16/19 13:06 [facility] [id number]) Physical Therapy Treatment Education Education Provided Safety M7 PT-IP Assessment and Plan Start: 02/13/19 09:10 Freq: NEEDED Status: Active Protocol: Document 02/19/19 09:00 LJ (Rec: 02/19/19 09:40 [facility] [id number]) PT Summary Assessment and Plan Summary Assessment Summary Pt increased gait significantly. No sign of respiratory distress or fatigue. Pt sat in W/C following for 2 min dut to muscle weakness in LEs. Continued back to room ~150' with no rest breaks. Returned to chair. Mobility is SBA Goals Bed Mobility Goal Independent Transfer Goal Independent Gait Goal Independent Four Wheel Walker Gait Distance 50ft Days to Meet Goals 3 Frequency of Treatment Frequency Of Treatment Twice a Day Treatment Plan Other Recommendations and Next Treatment progress gait with chair or w/ Focus c follow into hallway Recommendations To Nursing Amount of Assist Needed Standby Assistance Discharge Recommendations PT Discharge Recommendations SNF Rehab
--- NOTE | 2019-02-19 13:24 | SLP.IPNOTE ---
CARD CUTTER HELPER spoke with nursing regarding patient status. Patient has been accepted at [facility]. At this time, awaiting authorization from insurance. Nursing reported patient is doing well at this time. No further need for speech therapy at this time. CARD CUTTER HELPER will sign off. Please reconsult if warranted.
--- NOTE | 2019-02-19 15:24 | PT.IPTN ---
Current Diagnoses Type 2 diabetes mellitus without complications (02/13/19) Morbid (severe) obesity due to excess calories (02/13/19) Paroxysmal atrial fibrillation (02/13/19) Acute and chronic respiratory failure with hypoxia (02/13/19) Weakness (02/13/19) Adult failure to thrive (02/13/19) Physical Therapy Treatment Note M2 PT-IP Current Condition Start: 02/13/19 09:10 Freq: NEEDED Status: Active Protocol: Document 02/13/19 09:15 SAK (Rec: 02/13/19 11:47 SAK [id number]) Physical Therapy Current Condition Current Condition Evaluation Date 02/13/19 Treatment Diagnosis weakness, frequent falls Onset Date 02/12/19 Weight Bearing Status Weight Bearing Status Full Weight Bearing M3 PT-IP Subjective Start: 02/13/19 09:10 Freq: NEEDED Status: Active Protocol: Document 02/19/19 15:02 SA (Rec: 02/19/19 15:24 SA [id number]) Subjective Physical Therapy Visit Type Type Treatment Note Visit Start Time 14:15 Visit Stop Time 14:41 Total Visit Minutes 26 Number of PIPE STEM SAWYER Visits 3 Physical Therapy Visit Comments Patient Comments Pt reports feeling tired and with achy legs. Patient Goals To get home. Therapy Pain Assessment Pain When Pain Assessed During Mobility Pain Present Pain Present Pain Reported Location óscar knees Intensity 2 Pain Management Techniques Distraction Re-positioning Timing of Activity with Medications M4 PT-IP Mobility and Gait Start: 02/13/19 09:10 Freq: NEEDED Status: Active Protocol: Document 02/19/19 15:02 SA (Rec: 02/19/19 15:24 [id number]) PT-Transfer Assessment Sit to and From Stand Sit to and from Stand Standby Assistance Use of Upper Extremities Equipment Transfer Assistive Device Gait Belt 4 Wheeled Walker Transfers Transfer Destination Chair Transfer Technique Stand Step Pivot Transfer Ability Level of Assist Standby Assistance 1 Person Assistance Comments Mobility Comments Pt SBA with transfers, unable to assess bed mobility as pt declines getting into bed just to get out again. Fatigues rapidly. Gait Assessment Gait Gait Assistance Required: Standby Assistance Distance (Feet) 220 Assistive Devices Assistive Device Gait Belt 4 Wheeled Walker Gait Deviations General Gait Pattern Decreased Stride Length Decreased Feet Clearance Flexed Trunk Wide Based Gait Factors Limiting Gait Function Factors Limiting Gait Function Decreased Activity Tolerance Decreased Strength Pain Poor Balance Poor Safety Awareness Comments Gait Comments Gait training in [place]/room with 4WW and SBA, pt unable to decrease forward leaning on AD, required 2 seated rest breaks during 220 foot walk. M5 PT-IP Objective Assessments Start: 02/13/19 09:10 Freq: NEEDED Status: Active Protocol: Document 02/13/19 09:15 SAK (Rec: 02/13/19 11:47 SAK [id number]) Gross Range of Motion Upper Extremity ROM Assessment Within Functional Limits Lower Extremity ROM Assessment Within Functional Limits Strength Upper Extremity Strength Assessment Within Functional Limits Lower Extremity Strength Assessment Bilaterally Impaired Comments Strength Comments Refused testing; too tired. Has active antigravity ankle dorsiflexion and knee extension. M6 PT-IP Treatment Start: 02/13/19 09:10 Freq: NEEDED Status: Active Protocol: Document 02/19/19 15:02 SA (Rec: 02/19/19 15:24 SA [id number]) Physical Therapy Treatment Exercises Exercises Ankle Pumps Gluteal Sets Other Treatments Other Treatment Performed Pt not very receptive to education for exercise and increasing daily activity, states she has a small apartment and does not need to walk very far. M7 PT-IP Assessment and Plan Start: 02/13/19 09:10 Freq: NEEDED Status: Active Protocol: Document 02/19/19 15:02 SA (Rec: 02/19/19 15:24 [id number]) PT Summary Assessment and Plan Summary Assessment Summary Increased gait today with no SOB and 2 seated rest breaks, pt fatigues rapidly. Frequency of Treatment Frequency Of Treatment Twice a Day Treatment Plan Other Recommendations and Next Treatment progress gait with chair or w/ Focus c follow into hallway Recommendations To Nursing Amount of Assist Needed Standby Assistance Discharge Recommendations PT Discharge Recommendations SNF Rehab
--- NOTE | 2019-02-19 16:01 | OT.IP.TRT ---
Current Diagnoses Type 2 diabetes mellitus without complications (02/13/19) Morbid (severe) obesity due to excess calories (02/13/19) Paroxysmal atrial fibrillation (02/13/19) Acute and chronic respiratory failure with hypoxia (02/13/19) Weakness (02/13/19) Adult failure to thrive (02/13/19) Occupational Therapy Treatment Note M2 OT-IP Current Condition Start: 02/13/19 11:18 Freq: Status: Active Protocol: Document 02/13/19 13:44 [facility] (Rec: 02/13/19 14:10 [facility] [id number]) Occupational Therapy Current Condition Current Condition Evaluation Date 02/13/19 Treatment Diagnosis Acute respiratory failure with hypoxia Diagnosis Onset Date 02/13/19 M3 OT- IP Subjective and Pain Start: 02/13/19 11:18 Freq: Status: Active Protocol: Document 02/19/19 15:54 [facility] (Rec: 02/19/19 16:01 [facility] [id number]) OT- Subjective Occupational Therapy Visit Type Type Treatment Note Visit Start Time 11:45 Visit Stop Time 12:00 Total Visit Minutes 25 Notes Pt also seen from [id number]. Initially set up to do shower for pt at 1300pm however when coming back to see pt , pt states too tired and refused. Occupational Therapy Visit Comments Patient Comments Pt appears open to go to skilled rehab or assitive living when asked. Pt realizing that she is needing more assist now. OT Pain Assessment Pain When Pain Assessed At Rest Pain Present Pain Present Denied Pain M4 OT- IP ADL's Start: 02/13/19 11:18 Freq: Status: Active Protocol: Document 02/18/19 12:50 [facility] (Rec: 02/18/19 13:01 [facility] [id number]) OT ADL-Dressing General Eval Upper Body Dressing Ability Standby Assistance Lower Body Dressing Ability Standby Assistance Comments OT Dressing Comments Pt able to quyen socks while sitting from the recliner safely. Able to bend forwards. Pt states wanting use of assistant finance director, but able to educate her better to to continue to be able to do things for herself if able. Per pt lately at home had to have assist for showering and does have a tub bench without a back. M5 OT- IP IADL's Start: 02/13/19 11:18 Freq: Status: Active Protocol: Document 02/13/19 13:44 [facility] (Rec: 02/13/19 14:10 [facility] [id number]) OT-Instrumental Activities of Daily Living Meal Preparation Meal Preparation Caregiver Provides Assist Commercial Fisherman Commercial Fisherman Caregiver Provides Assist M6 OT- IP Functional Cognition Start: 02/13/19 11:18 Freq: Status: Active Protocol: Document 02/19/19 15:54 [facility] (Rec: 02/19/19 16:01 [facility] [id number]) Cognitive Factors Limiting Selfcare Function Cognitive Ability Level of Alertness Alert Patient Orientation Name Date Year Day of Week Place Situation Attention Span Ability Capable of Focused Attention Capable of Sustained Attention Ability to Follow Commands Able to Follow Multi-Step Commands Memory Description Short Term Impaired Safety Awareness Underestimates Need for Assistance Problem Solving Ability Unable to Identify Errors Needs Assist to Identify Solutions Executive Function Ability Unable to Remember Details Cognitive Tests ACL Pt scored 4.4 out of 6.0 which implies live with someone who does a daily check on the environment, removes any safety hazzards and solves any new problems. Daily food planning, meds, and finances management provided. Cognitive Comments Cognitive Assessment Comments Pt's score on ACL is consistent with recommendation of having assist at home, especially due to pt's decreased short term memory which can interfere with pt's memory of medications, knowing what to do if having high or low BS level. M7 OT- IP Mobility and Balance Start: 02/13/19 11:18 Freq: Status: Active Protocol: Document 02/18/19 12:50 [facility] (Rec: 02/18/19 13:01 [facility] [id number]) OT-Transfer Assessment Sit to and From Stand Sit to and from Stand Standby Assistance 1 Person Assistance Transfers Transfer Ability Standby Assistance Total Assistance Technique Transfer Destination Chair Transfer Technique Stand Pivot Devices Transfer Assistive Devices Gait Belt 4 Wheeled Walker Comments Mobility Comments Pt still having difficulty turn to sit to 4WW. Pt has move difficulty to come up from 4WW as 4ww gets stuck on her hips and needing ELIZ for balance. Pt will continue to benefit from more practice and a wider 4WW would be beneficial for pt to use for safety. OT- Gait Assessment Gait Gait Assistance Required: Standby Assistance 1 Person Assist Distance (Feet) 75 Assistive Devices Assistive Device Gait Belt 4 Wheeled Walker Comments Gait Ability Comments 75ft x 2 with 4WW, CGA/ELIZ to sit to 4WW and get up from 4WW. OT- Balance Assessment Sitting Balance and Reactions Static Sitting Balance Ability Normal Dynamic Sitting Balance Ability Normal Standing Balance and Reactions Static Standing Balance Ability Good Dynamic Standing Balance Ability Fair M8 OT- IP Objective Assessments Start: 02/13/19 11:18 Freq: Status: Active Protocol: Document 02/13/19 13:44 [facility] (Rec: 02/13/19 14:10 [facility] [id number]) OT Gross Range of Motion Upper Extremity Range of Motion Assessment Right Impaired ROM Impairments LUE WFL RUE instead of shoulder flexion tends to compensate with shoulder scaption. OT Strength Comments Strength Comments RUE from proximal to distal 3- /5 to 3+/5, LUE 4-/5. M9 OT- IP Assessment and Plan Start: 02/13/19 11:18 Freq: Status: Active Protocol: Document 02/19/19 15:54 [facility] (Rec: 02/19/19 16:01 [facility] [id number]) OT Summary Assessment and Plan Potential Rehabilitation Potential Good Analytic Complexity at Evaluation Low Summary OT Impairments Range of Motion Strength Balance Functional Cognition Functional Mobility Toileting Bathing Toilet Transfers Shower Transfers Progress Towards Goals Progressing Toward Goals Slow Progress due to Cognition Assessment Summary Pt still needing vc for safety awareness and memory and would benefit from assistive living versus skilled rehab at this time. Pt not safe to go home due to decreased short term memory. Goals Dressing Goal Independent Toileting Goal Independent Bathing Goal Standby Assistance Toilet Transfer Goal Standby Assistance Bedside Commode Grab Bars Shower Transfer Goal Contact Guard Assistance Tub Transfer Bench Grab Bars Days to Meet Goals 3 Frequency of Treatment Frequency Of Treatment Once a Day Treatment Plan OT Treatment Plan ADL Training Functional Cognition Training Functional Mobility Patient/Family Education Discharge Planning Other Treatment Recommendations and Next Shower Treatment Focus Discharge Recommendations OT Discharge Recommendations SNF Rehab Other Discharge Recommendations Assistive living Home Equipment Needs [facility] [place]
[2019-02-19] MEDS: DIGOXIN 0.125 MG TABLET PO (16:56)
[2019-02-19] MEDS: WARFARIN 5 MG TABLET PO (16:58)
[2019-02-19] MEDS: ATORVASTATIN 20 MG TABLET 80 MG PO (21:05)
[2019-02-19] MEDS: LOSARTAN 25 MG TABLET PO (21:06)
[2019-02-20 01:00] VITALS: BP 133/61; PULSE 75; RESP 18; TEMP 36.6; O2SAT 92
[2019-02-20 05:00] VITALS: BP 122/68; PULSE 90; RESP 18; TEMP 36.4; O2SAT 91
[2019-02-20 08:00] VITALS: BP 105/56; PULSE 87; RESP 18; TEMP 36.5; O2SAT 89
[2019-02-20] MEDS: HEPARIN 5,000 UNIT/ML VIAL 5000 UNIT SUBCUT (08:41)
[2019-02-20] MEDS: POTASSIUM CHLORIDE 10 MEQ TAB PO (08:41)
[2019-02-20] MEDS: GABAPENTIN 600 MG TABLET PO (08:41)
[2019-02-20] MEDS: FERROUS SULFATE 325 MG TABLET PO (08:41)
[2019-02-20] MEDS: ASPIRIN EC 81 MG TABLET PO (08:41)
[2019-02-20] MEDS: NICOTINE 21 MG PATCH TOP (08:41)
[2019-02-20] MEDS: URSODIOL 300 MG CAPSULE PO (08:42)
[2019-02-20] MEDS: OXYBUTYNIN 5 MG TABLET PO (08:42)
[2019-02-20] MEDS: TORSEMIDE 10 MG TABLET PO (08:42)
[2019-02-20] MEDS: dilTIAZem CD 120 MG CAP PO (08:43)
[2019-02-20] MEDS: INSULIN ASPART 100 UNIT/ML INSULN PEN SUBCUT (08:43)
--- NOTE | 2019-02-20 08:47 | PM.DS.1 ---
History of Present Illness Date Patient Seen: 02/20/19 Chief complaint: Generalized weakness Narrative: The patient is a 68-year-old female who presented to the ED on 02/12/2019 in the 2230 hr via EMS out of concern for weakness and frequent falls. Patient has a tendency to summon EMS after she falls because she is unable to get up on her own. EMS has been at her house on multiple occasions in the past week. Patient herself commented that after certain number of times they have to bring the patient to the hospital. Patient is not a reliable historian. She reports being minimally ambulatory. Reports underlying gait and balance instability, she reports using walker with ambulation. Notes sleeping fairly often, but unable to quantify. ED reported somnolence. Denies dizziness or lightheadedness prior to the falls. Denies symptoms of orthostasis. Denies injury to the head and loss of consciousness. she has not experienced chest pain, palpitations, exertional dyspnea, or peripheral edema. She sleeps upright in a chair. Current 1 pack per day smoker. Patient has a multitude of underlying co-morbidities, such as COPD, chronic respiratory failure with hypoxia and hypercapnia, morbid obesit w/ associated hypoventilation syndrome, atrial fibrillation, chronic anticoagulation, diabetes, and chronic pain with opioid dependence. She does not wear supplemental oxygen or CPAP. Prior records note non-adherence with oxygen therapy; however, patient herself notes that she was told that she does not need to use oxygen or CPAP in the past. Patient receives in-home help (r/t residence up-keep) 5 days a week. Patient also denies fever, chills, abdominal pain, gastrointestinal distress, dysuria, hematuria, new rash, malaise, myalgia, and myopathy. No known recent illness or hospitalizations. Denies contact with ill individuals. Patient is not check her blood sugar or blood pressure at home. She lives on her own and manages her own medications. She lacks awareness of which medications she takes. She is unable to provide adequate account of what she does day-to-day. On initial presentation found to be hypotensive, BP 83/40 mmHg, and hypoxic, SpO2 88%. Discharge Providers Date of admission: 02/13/19 01:19 Discharge Date: 02/20/19 Primary care physician: Johnny Saini MD Consults: 02/13/19 01:34 Consult to Discharge Planning Routine Comment: SNF, re: debility / deconditioning Consult to Occupational Therapy Evaluate & Treat Comment: deconditioning, decreased ability for self care Physician Instructions: Evaluate and treat Consult to Physical Therapy Evaluate & Treat Comment: generalized weakness, falls, deconditioning Physician Instructions: Evaluate and Treat 02/13/19 03:40 Consult to Missile Technician Routine Comment: eval to live independently, safety at home 02/15/19 16:27 Consult to Missile Technician Routine Comment: unsafe to live on own 02/15/19 16:34 Consult to Speech Therapy Evaluate & Treat Comment: SLUMS to assess for dementia Physician Instructions: Evaluate and treat Discharge provider: Geovanna Sanchez MD Summary Discharge Diagnosis: 1. Urinary Tract Infection, present on admission, resolved 2. Chronic Respiratory Failure, present on admission, 3. COPD 4. Generalized weakness 5. morbid obesity 6. Obesity hypoventilation syndrome, chronic 7. Dementia, without behavioral disturbances 8. Paroysmal atrial fibrillation, on anticoagulation 9. Tobacco dependence 10. iron deficiciency anemia 11. Type 2 Diabetes Mellitus 12. Urinary incontinece Hospital Course: The patient was admitted to the hospital for weakness, frequent falls, multiple calls to EMS. She was found to have a Urinary tract infection for which she completed treatment. She has chronic respiratory failure and remained on O2. She was in chronic atrial fibrillation and coumadin was adjusted. She has baseline dementia as well. The patient was treated with insulin in the hospital. She was seen by PT/OT. IT was felt that the patient would need assisted living fly raiser lockstitch but would benefit from a SNF short term for rehabilitation. The patient made steady progress and was deemed appropriate for discharge to the SNF.. Status at Discharge Cognitive/behavioral status at discharge: oriented Functional status at discharge: wheelchair bound Overall status at discharge: patient is back to baseline Time Spent with Patient Less than 30 minutes Exam Vital Signs (past 8 hours): - 02/20/19 01:00 02/20/19 05:00 02/20/19 08:00 Temperature 97.8 F 97.5 F L 97.7 F Pulse Rate 75 90 87 Respiratory Rate 18 18 18 Blood Pressure 133/61 122/68 105/56 L Pulse Oximetry 92 91 89 L Fraction of Inspired Oxygen 21 Oxygen Delivery Method Room Air Oxygen Flow Rate 0 Narrative Exam Narrative: pleasant female sitting up in a chair in no acute distress LUngs: decreased breath sounds bilaterally CV: RRR nl Sl S2 2/6 LO ABd: soft/ non tender/ non distended Ext: 1-2+ pitting edema Objective Labs Result Diagrams: 02/18/19 06:37 02/18/19 06:37 Labs: Laboratory Results - last 24 hr 02/17/19 06:25 Lead 1 Discharge Plan Discharge Plan Discharge Problem: Weakness, Respiratory failure Patient Disposition: SNF Transfer to: [facility] Transportation: Ambulance I certify the postop hospital group home care is medically necessary on a continuing basis for any conditions for which he/ she received care during this hospitalization.: Yes The receiving facility has agreed to accept transfer and provide medical treatment.: Yes Discharge Med Rec/Prescriptions Prescriptions: New oxybutynin chloride 5 mg Tablet 5 mg PO BID Qty: 30 RF: 0 potassium chloride [Klor-Con M10] 10 mEq Tablet,Er Particles/Crystals 10 meq PO DAILYCC Qty: 30 RF: 0 ursodiol 300 mg Capsule 300 mg PO BID Qty: 30 RF: 0 diltiazem HCl 120 mg Capsule,Extended Release 24hr 120 mg PO DAILY Qty: 30 RF: 0 losartan 25 mg Tablet 25 mg PO 2100 Qty: 30 RF: 0 warfarin [Coumadin] 5 mg Tablet 5 mg PO 1700 Qty: 30 RF: 0 sennosides [senna] 8.6 mg Tablet 17.2 mg PO BEDTIME PRN (Reason: Constipation) Qty: 30 RF: 0 Continued metformin [Glucophage] 500 mg tablet 500 mg PO BID RF: 0 oxybutynin chloride 10 mg tablet extended release 24hr 10 mg PO DAILY RF: 0 ursodiol 300 mg capsule 300 mg PO BID RF: 0 aspirin 81 mg Tablet,Delayed Release (Dr/Ec) 81 mg PO DAILY RF: 0 digoxin [Digitek] 125 mcg Tablet 0.125 mg PO QPM RF: 0 warfarin 5 mg tablet 4 mg PO QPM RF: 0 ascorbic acid (vitamin C) 500 mg Tablet See Rx Instructions .ROUTE .COMPLEX RF: 0 cetirizine [Allergy Relief (cetirizine)] 10 mg Tablet 1 tab PO DAILY RF: 0 ferrous sulfate 325 mg (65 mg iron) Tablet 0.5 tab PO TID RF: 0 triamcinolone acetonide 0.1 % Ointment 1 applic TOPICAL BID RF: 0 gabapentin 300 mg Capsule 600 mg PO QID RF: 0 Combivent Respimat 20-100 mcg/actuation Mist 1 puff Inhalation Q8H RF: 0 atorvastatin 80 mg tablet 80 mg PO BEDTIME RF: 0 torsemide 20 mg tablet 1 tab PO BID RF: 0 hydrocodone-acetaminophen 7.5-325 mg tablet 1 tab PO Q8H PRN (Reason: Pain, Moderate) RF: 0 potassium chloride 10 mEq capsule, extended release 10 meq PO DAILY Qty: 30 RF: 1 Discontinued metoprolol succinate 50 mg Tablet Extended Release 24 Hr 100 mg PO DAILY Qty: 30 RF: 0 diltiazem HCl [Cartia XT] 240 mg Capsule,Extended Release 24hr 240 mg PO DAILY RF: 0 losartan 50 mg tablet 50 mg PO DAILY RF: 0 Follow up/Referrals: Johnny Saini MD [Primary Care Provider] - Provider Discharge Instructions Diet: Carb-consistent/Diabetic and Low-sodium Liquid consistency: Normal/Thin Food texture: Regular Activity: as tolerated Special Rehabilitation [facility] Reason for rehabilitation: Recovery r/t decondition Rehab type: Physical therapy and Occupational therapy Discharge Data Primary Care Provider: Johnny Saini Attending Provider: Tasneem Anderson Admit Date/Time: 02/13/19 01:19 Quality VTE Deep Vein Thrombosis/Pulmonary Embolism Present on Admission: No
--- NOTE | 2019-02-20 11:13 | CM.DPC ---
DCP: continued. Dr. Sanchez has now completed d/c orders for [facility] today. w/c raul will pick pt up at 1130. [facility] is in the room. She expresses confusion re the status of [facility]. I thought a nurse was coming to assess her for hospice care. She said she had not understood that [facility] did not find that her mother met the criteria. Agreed to call [facility] and ask them to reach out to Aurora for further information re their program/done. Genet/JEROME will make sure Aurora is called for an update. Orders are now completed and faxed. [facility] will be here at 1130 to pick pt up.
--- NOTE | 2019-02-20 11:25 | CM.DPC ---
DCP: continued: pt is ready for d/c to [facility]. Dr. Sanchez has completed most of the orders. Still waiting for narcotic script. WC van will be here at 1230. Dr[address] Sanchez is still working with [facility] on how to print the script..ELAINE Trina if following this process and will efx it to [facility] as soon as received. PAS[facility] is completed and faxed. Confirmed for Sarahi that pt and her family are well aware that the snf is a non smoking facility and the family are very proactive in this regard. Received a call from [facility] Jessa Jackson, pt's CHIDI GUEVARA. She wondered if the DCP team has worked with [facility] to see if they would accept to after rehab or if her smoking at [facility] would impact this.' Explained that the focus has been on finding an accepting snf for pt and that this part of the plan would need to be followed up by the family in tandem with Jessa. ROC#2: re-signed by pt and given to ELAINE for processing.
--- NOTE | 2019-02-20 11:54 | PT.IPTN ---
Current Diagnoses Type 2 diabetes mellitus without complications (02/13/19) Morbid (severe) obesity due to excess calories (02/13/19) Paroxysmal atrial fibrillation (02/13/19) Acute and chronic respiratory failure with hypoxia (02/13/19) Weakness (02/13/19) Adult failure to thrive (02/13/19) Physical Therapy Treatment Note M2 PT-IP Current Condition Start: 02/13/19 09:10 Freq: NEEDED Status: Active Protocol: Document 02/13/19 09:15 SAK (Rec: 02/13/19 11:47 SAK [id number]) Physical Therapy Current Condition Current Condition Evaluation Date 02/13/19 Treatment Diagnosis weakness, frequent falls Onset Date 02/12/19 Weight Bearing Status Weight Bearing Status Full Weight Bearing M3 PT-IP Subjective Start: 02/13/19 09:10 Freq: NEEDED Status: Active Protocol: Document 02/20/19 11:47 SA (Rec: 02/20/19 11:54 SA [id number]) Subjective Physical Therapy Visit Type Type Treatment Note Visit Start Time 11:10 Visit Stop Time 11:43 Total Visit Minutes 33 Number of SIEVE MAKER Visits 4 Physical Therapy Visit Comments Patient Comments Pt takes time and encouragement to participate in PT. Patient Goals To get home after SNF. Therapy Pain Assessment Pain When Pain Assessed During Mobility Pain Present Pain Present Pain Reported Location óscar knees Intensity 2 Pain Management Techniques Distraction Re-positioning Timing of Activity with Medications M4 PT-IP Mobility and Gait Start: 02/13/19 09:10 Freq: NEEDED Status: Active Protocol: Document 02/20/19 11:47 SA (Rec: 02/20/19 11:54 SA [id number]) PT-Transfer Assessment Sit to and From Stand Sit to and from Stand Standby Assistance Use of Upper Extremities Equipment Transfer Assistive Device Gait Belt 4 Wheeled Walker Transfers Transfer Destination Bed Chair Transfer Technique Stand Step Pivot Transfer Ability Level of Assist Standby Assistance 1 Person Assistance Comments Mobility Comments Pt SBA with transfers and stood at sink to comb hair, unable to maintain upright posture and leans heavily on counter during ADLs at sink. Gait Assessment Gait Gait Assistance Required: Standby Assistance Distance (Feet) 220 Assistive Devices Assistive Device Gait Belt 4 Wheeled Walker Gait Deviations General Gait Pattern Decreased Stride Length Decreased Feet Clearance Flexed Trunk Wide Based Gait Factors Limiting Gait Function Factors Limiting Gait Function Decreased Activity Tolerance Decreased Strength Pain Poor Balance Poor Safety Awareness Comments Gait Comments Gait training in genao with 4WW and SBA, 220 feet with one seated rest break. Vitals WNLs and pt with forward flexed posture and inability to maintain upright posture. Improving distance between rest breaks. M5 PT-IP Objective Assessments Start: 02/13/19 09:10 Freq: NEEDED Status: Active Protocol: Document 02/13/19 09:15 SAK (Rec: 02/13/19 11:47 SAK [id number]) Gross Range of Motion Upper Extremity ROM Assessment Within Functional Limits Lower Extremity ROM Assessment Within Functional Limits Strength Upper Extremity Strength Assessment Within Functional Limits Lower Extremity Strength Assessment Bilaterally Impaired Comments Strength Comments Refused testing; too tired. Has active antigravity ankle dorsiflexion and knee extension. M6 PT-IP Treatment Start: 02/13/19 09:10 Freq: NEEDED Status: Active Protocol: Document 02/20/19 11:47 SA (Rec: 02/20/19 11:54 SA [id number]) Physical Therapy Treatment Exercises Exercises Ankle Pumps Gluteal Sets Education Education Provided Safety Other Treatments Other Treatment Performed Education regarding expectations at SNF, pt is difficult to motivate at times and understands that she will have increased therapy time and duration at SNF. M7 PT-IP Assessment and Plan Start: 02/13/19 09:10 Freq: NEEDED Status: Active Protocol: Document 02/20/19 11:47 SA (Rec: 02/20/19 11:54 [id number]) PT Summary Assessment and Plan Summary Assessment Summary Pt able to ambulate same distance but only required one seated rest break today. Continues to need motivation for encouragement. Frequency of Treatment Frequency Of Treatment Twice a Day Treatment Plan Other Recommendations and Next Treatment progress gait with chair or w/ Focus c follow into hallway Recommendations To Nursing Amount of Assist Needed Standby Assistance Discharge Recommendations PT Discharge Recommendations SNF Rehab
--- NOTE | 2019-02-20 12:11 | PC.NURSE ---
Addendum entered by Meche Perez R.N. 02/20/19 12:50: Pt out via w/c by [facility] personnel with all belongings. Original Note: Pt dressed, packed up and ready to go to [facility]. Called report to Geovanna and gave her Pt status update. No further questions. [facility] will be here shortly to take her to SNF.
--- NOTE | 2019-02-20 12:37 | CM.DPC ---
DCP Cont: After attempting to fax Discharge referral to [facility] with no answer, I called [facility] to see if there was another fax # to use. [facility] stated not to bother re-faxing the referral, as she has everything she needs. Nishi Tang, [employer]
== END 2019-02-20 12:50 | DRG 189 ==
LOC: ED 02-13 00:15 → AC 02-13 01:20
PROVIDERS: Internal Medicine; Nurse Practitioner Adult Health; Admitting Provider Nurse Practitioner Gerontology; Emergency Provider Emergency Medicine; PCP Internal Medicine; Visit Provider Nurse Practitioner Gerontology
DX: J96.11 Chronic respiratory failure with hypoxia (principal); E66.2 Morbid (severe) obesity with alveolar hypoventilation; Z68.42 Body mass index [BMI] 45.0-49.9, adult; I50.30 Unspecified diastolic (congestive) heart failure; N39.0 Urinary tract infection, site not specified; F11.20 Opioid dependence, uncomplicated; J96.12 Chronic respiratory failure with hypercapnia; J44.9 Chronic obstructive pulmonary disease, unspecified; E86.1 Hypovolemia; I95.9 Hypotension, unspecified; I11.0 Hypertensive heart disease with heart failure; I48.0 Paroxysmal atrial fibrillation; Z79.01 Long term (current) use of anticoagulants; E11.9 Type 2 diabetes mellitus without complications; F17.210 Nicotine dependence, cigarettes, uncomplicated; Z79.84 Long term (current) use of oral hypoglycemic drugs; G89.29 Other chronic pain; N32.81 Overactive bladder; D64.9 Anemia, unspecified; F03.90 Unspecified dementia, unspecified severity, without behavioral disturbance, psychotic disturbance, mood disturbance, and anxiety
CPT/HCPCS: 36415; 36591; 36600; 71045; 80048; 80053; 80162; 80305; 81001; 82607; 82746; 82805; 82962; 83655; 83690; 84484; 85025; 85610; 85730; 87077; 87086; 93005; 94760; 94762; 96125; 96360; 97110; 97116; 97127; 97162; 97165; 97530; 97535; 99283; 99285; 99406; J0696; J1644

== ENCOUNTER 2019-12-20 07:57 | Emergency (ER) | payer MEDICARE, MEDICAID, SELFPAY ==
[2018-06-18 14:20] VITALS: PULSE 68; RESP 23; O2SAT 95
[2019-02-13 01:35] VITALS: BMI 48.7
[2019-12-20 07:53] VITALS: BP 106/55; PULSE 91; RESP 18; TEMP 36.3; O2SAT 92; BMI 46.7
--- NOTE | 2019-12-20 07:59 | DI.RAD.S_ITS ---
PROCEDURE: XR KNEE RT 1TO2V INDICATIONS: pain TECHNIQUE: 2 views of the knee were acquired. COMPARISON: [facility], , KNEE 3V RIGHT, 09/28/2017, 12:16. FINDINGS: Bones: Severe degenerative changes of the right knee are again evident. There is prominent medial joint space narrowing, which may be increased in the interim. A peripherally calcified structure along the lateral margin of the knee and is unchanged. There appear to be intra-articular joint bodies. Osteophytes are noted within all 3 compartments. No displaced acute fracture or dislocation is evident. Soft tissues: There is a moderate to large knee joint effusion. Vascular calcifications along the posterior margin of the knee are evident. There may be aneurysmal dilatation of the popliteal artery, not adequately characterized, but similar to the previous study. IMPRESSION: 1. No displaced right knee fractures. 2. Severe degenerative changes of the knee. 3. Moderate to large knee joint effusion with intra-articular joint bodies. Dictated by: Michael Narayan M.D. on 12/20/2019 at 7:30 Approved by: Michael Narayan M.D. on 12/20/2019 at 7:32
--- NOTE | 2019-12-20 08:11 | ED_ITS ---
HPI - Extremity Injury (Lower) General Chief Complaint: Extremity Injury, Lower Stated Complaint: Knee pain Time Seen by Provider: 12/20/19 07:59 Source: EMS Mode of arrival: EMS Limitations: no limitations History of Present Illness HPI Narrative: Patient is a 69-year-old female who presents with right knee pain ongoing for the last 3-4 days. She says it has given her a little bit of trouble in the past. She typically gets around with a walker. She takes gabapentin and hydrocodone for pain which she did not take this morning. This morning she did fall down due to weakness and pain in her right knee. No other injury. MD complaint: knee injury Related Data Home Medications Medication Instructions Recorded Confirmed aspirin 81 mg PO DAILY 04/12/18 02/13/19 metformin [Glucophage] 500 mg PO BID 04/12/18 02/13/19 oxybutynin chloride 10 mg PO DAILY 04/12/18 02/13/19 ursodiol 300 mg PO BID 04/12/18 02/13/19 digoxin [Digitek] 0.125 mg PO QPM 06/12/18 02/13/19 warfarin 4 mg PO QPM 06/17/18 02/13/19 Combivent Respimat 1 puff INHALATION Q8H 09/04/18 02/13/19 gabapentin 600 mg PO QID 09/04/18 02/13/19 triamcinolone acetonide 1 applic TOPICAL BID 09/04/18 02/13/19 atorvastatin 80 mg PO BEDTIME 09/25/18 02/13/19 hydrocodone-acetaminophen 1 tab PO Q8H PRN 09/25/18 02/13/19 torsemide 1 tab PO BID 09/25/18 02/13/19 ascorbic acid (vitamin C) See Rx Instructions .ROUTE .COMPLEX 02/13/19 02/13/19 cetirizine [Allergy Relief 1 tab PO DAILY 02/13/19 02/13/19 (cetirizine)] ferrous sulfate 0.5 tab PO TID 02/13/19 02/13/19 Previous Rx's Medication Instructions Recorded potassium chloride 10 meq PO DAILY #30 cap 09/25/18 diltiazem HCl 120 mg PO DAILY #30 cap 02/20/19 hydrocodone-acetaminophen 1 tab PO Q6-8H PRN #30 tab 02/20/19 losartan 25 mg PO 2100 #30 tab 02/20/19 oxybutynin chloride 5 mg PO BID #30 tab 02/20/19 potassium chloride [Klor-Con M10] 10 meq PO DAILYCC #30 tab 02/20/19 sennosides [senna] 17.2 mg PO BEDTIME PRN #30 tab 02/20/19 ursodiol 300 mg PO BID #30 cap 02/20/19 warfarin [Coumadin] 5 mg PO 1700 #30 tab 02/20/19 Allergies Allergy/AdvReac Type Severity Reaction Status Date / Time captopril [CAPTOPRIL] Allergy Unknown Verified 09/25/18 14:09 nabumetone [NABUMETONE] Allergy Unknown Rash Verified 09/25/18 14:09 Review of Systems Review of Systems Narrative: GENERAL: Denies chills, fatigue, malaise, fever, sweats, travel HEENT: Denies sinus pain, ear pain, sore throat, difficulty swallowing, neck pain RESPIRATORY: Denies dyspnea, cough, wheezing, hemoptysis, sputum. CARDIOVASCULAR: Denies chest pain, palpitations, orthopnea, edema GASTROINTESTINAL: Denies nausea, vomiting, abdominal pain, diarrhea, constipation, melena. : Denies dysuria, frequency, incontinence, hematuria, urinary retention, flank pain. MUSCULOSKELETAL: See HPI SKIN: No rash, no erythema, no pruritus NEUROLOGIC: Denies weakness, dizziness, headache, numbness, change in speech, confusion PSYCHIATRIC: No concerning psychosocial issues. 12 point review of systems is negative except for those stated above and HPI Patient History Medical History Hypertension (Acute) Social History household members: none Smoking Status: Current every day smoker alcohol intake: former additional social history: lives alone Smoking Status: Current every day smoker tobacco type: cigarettes Substance Use Type: does not use Exam Initial Vital Signs Initial Vital Signs: Vital Signs Temperature 97.3 F L 12/20/19 07:53 Pulse Rate 91 H 12/20/19 07:53 Respiratory Rate 18 12/20/19 07:53 Blood Pressure 106/55 L 12/20/19 07:53 Pulse Oximetry 92 12/20/19 07:53 GENERAL: Overweight well-appearing female and in no acute distress. HEENT: Head atraumatic,EOMI, pupils reactive CARDIOVASCULAR: Regular rate and rhythm without murmurs, rubs or gallops. RESPIRATORY: Breath sounds equal bilaterally, no wheezes rales or rhonchi. ABDOMEN: Soft, nontender. Normoactive bowel sounds all 4 quadrants. No guarding or rebound. EXTREMITIES: Normal range of motion, no clubbing or edema. Neurovascularly intact Unable to lift right leg I can passively lift the leg but is painful. Distal pedal pulse intact. His knee is tender to touch swollen no erythema she is unable to flex the knee. NEUROLOGICAL: Alert and oriented x4.Normal gait and speech. SKIN: Warm, dry, no laceration, no petechiae, no rashes or lesions. Course Orders Ordered: ED Orders 12/20/19 07:59 XR knee RT 1to2V Stat Discontinued Medications Hydrocodone Bitart/Acetaminophen (Marion 5/325) 1 tab PO NOW ONE Stop: 12/20/19 08:53 Last Admin: 12/20/19 09:36 Dose: 1 tab Documented by: EDUAR Vital Signs Vital signs: Vital Signs - 8 hr 12/20/19 12:00 Pulse Rate 88 Blood Pressure [Right Wrist] 104/68 Pulse Oximetry 91 MDM - Extremity Injury (Lower) Imaging Data Extremity x-ray #1: Radiologist's Impression: Radiology report: No displaced right knee fractures. Severe degenerative changes of the knee. Moderate to large joint effusion with intra-articular joint bodies. MDM Narrative Medical decision making narrative: Smith wrap is placed over right knee. She was able to stand with a walker and put weight on her knee however she was not able to ambulate. She has wheelchair at home. I've called and spoke with her daughter who's on her way to pick her up for her birthday constitution party. She is going to stop by the house and get wheelchair. Discharge Plan Departure Patient Disposition: Home Clinical Impression: Arthritis of knee, right Discharge Date/Time: 12/20/19 12:10 Instructions: DI for Knee Pain, DI for Arthritis Activity Restrictions/Additional Instructions: *You have been diagnosed with right knee arthritis *What to do: X-ray today is negative. You will likely need surgery on your knee however does not emergent at this time. Recommend using her walker and or wheelchair as needed. You may also require physical therapy please discuss this with her PCP *Continue to take medications as directed Continue your pain medication as previously prescribed *Follow up with your primary care provider in 2-3 days *Return to ER if you should have increasing pain inability to walk frequent falls or any new, worsening or concerning symptoms Prescriptions: No Action metformin [Glucophage] 500 mg tablet 500 mg PO BID RF: 0 oxybutynin chloride 10 mg tablet extended release 24hr 10 mg PO DAILY RF: 0 ursodiol 300 mg capsule 300 mg PO BID RF: 0 aspirin 81 mg Tablet,Delayed Release (Dr/Ec) 81 mg PO DAILY RF: 0 digoxin [Digitek] 125 mcg Tablet 0.125 mg PO QPM RF: 0 warfarin 5 mg tablet 4 mg PO QPM RF: 0 ascorbic acid (vitamin C) 500 mg Tablet See Rx Instructions .ROUTE .COMPLEX RF: 0 cetirizine [Allergy Relief (cetirizine)] 10 mg Tablet 1 tab PO DAILY RF: 0 ferrous sulfate 325 mg (65 mg iron) Tablet 0.5 tab PO TID RF: 0 sennosides [senna] 8.6 mg Tablet 17.2 mg PO BEDTIME PRN (Reason: Constipation) Qty: 30 RF: 0 ursodiol 300 mg Capsule 300 mg PO BID Qty: 30 RF: 0 warfarin [Coumadin] 5 mg Tablet 5 mg PO 1700 Qty: 30 RF: 0 losartan 25 mg Tablet 25 mg PO 2100 Qty: 30 RF: 0 diltiazem HCl 120 mg Capsule,Extended Release 24hr 120 mg PO DAILY Qty: 30 RF: 0 oxybutynin chloride 5 mg Tablet 5 mg PO BID Qty: 30 RF: 0 potassium chloride [Klor-Con M10] 10 mEq Tablet,Er Particles/Crystals 10 meq PO DAILYCC Qty: 30 RF: 0 hydrocodone-acetaminophen 7.5-325 mg tablet 1 tab PO Q6-8H PRN (Reason: pain) Qty: 30 RF: 0 triamcinolone acetonide 0.1 % Ointment 1 applic TOPICAL BID RF: 0 gabapentin 300 mg Capsule 600 mg PO QID RF: 0 Combivent Respimat 20-100 mcg/actuation Mist 1 puff Inhalation Q8H RF: 0 atorvastatin 80 mg tablet 80 mg PO BEDTIME RF: 0 torsemide 20 mg tablet 1 tab PO BID RF: 0 hydrocodone-acetaminophen 7.5-325 mg tablet 1 tab PO Q8H PRN (Reason: Pain, Moderate) RF: 0 potassium chloride 10 mEq capsule, extended release 10 meq PO DAILY Qty: 30 RF: 1 Referrals: Johnny Saini MD [Primary Care Provider] -
[2019-12-20] MEDS: HYDROCODONE/ACET 5/325 TABLET 1 TAB PO (09:36)
[2019-12-20 12:00] VITALS: BP 104/68; PULSE 88; O2SAT 91
== END 2019-12-20 12:10 | disposition home or self-care (01) ==
PROVIDERS: Emergency Provider Emergency Medicine; PCP Internal Medicine
DX: M17.11 Unilateral primary osteoarthritis, right knee (principal); W19.XXXA Unspecified fall, initial encounter; Z79.01 Long term (current) use of anticoagulants
CPT/HCPCS: 73560; 99283

== ENCOUNTER 2019-12-23 02:36 | Emergency (ER) | payer MEDICARE, MEDICAID, SELFPAY ==
[2018-06-18 14:20] VITALS: PULSE 68; RESP 23; O2SAT 95
[2019-02-13 01:35] VITALS: BMI 48.7
--- NOTE | 2019-12-23 02:47 | DI.RAD.S_ITS ---
PROCEDURE: XR ANKLE RT 2V INDICATIONS: Right ankle pain TECHNIQUE: 2 views of the ankle were acquired. COMPARISON: [facility], , ANKLE 3 VIEWS RIGHT, 08/30/2013, 18:03. FINDINGS: Bones: No fractures or dislocations. Ankle mortise is normally aligned. No suspicious bony lesions. Diffuse hindfoot and midfoot degenerative sclerosis and spurring. Marked plantar posterior calcaneal spurs. Tibiotalar joint degeneration. Dystrophic calcifications project in the region of the Achilles tendon, chronic. Soft tissues: Lateral soft tissue swelling. IMPRESSION: Lateral soft tissue swelling. No definite fracture identified. Diagnostic study sensitivity limited by arthritic changes. If the patient's pain or other symptoms persist, consider further evaluation with MRI Chronic degenerative changes as above Dictated by: Chucho Santana M.D. on 12/23/2019 at 8:59 Approved by: Chucho Santana M.D. on 12/23/2019 at 9:01
[2019-12-23 02:51] VITALS: BP 127/68; PULSE 81; RESP 16; TEMP 36.7; O2SAT 89; BMI 49.4
--- NOTE | 2019-12-23 02:53 | ED.GENADULT ---
HPI - General Adult General Chief complaint: Extremity Problem,Nontraumatic Stated complaint: Rt ankle and knee pain Time Seen by Provider: 12/23/19 02:46 Source: patient Mode of arrival: EMS Limitations: no limitations History of Present Illness HPI narrative: 69-year-old female here for evaluation of right ankle/foot pain. Patient arrived by EMS. Just a few days ago she was seen here in the emergency department for right knee pain. Had an x-ray performed of her knee and was told that it was arthritis. Was discharged home after having a wrapped in an Smith bandage. Patient does have a walker and a wheelchair at home. She also states that she has just a couple hours of home health. She states that her knee pain has now resolved. Over the past day or so she has developed right ankle pain. No specific trauma. She stated that she wanted to come in by EMS for evaluation to see if she had arthritis in her ankle. Related Data Home Medications Medication Instructions Recorded Confirmed aspirin 81 mg PO DAILY 04/12/18 02/13/19 metformin [Glucophage] 500 mg PO BID 04/12/18 02/13/19 oxybutynin chloride 10 mg PO DAILY 04/12/18 02/13/19 ursodiol 300 mg PO BID 04/12/18 02/13/19 digoxin [Digitek] 0.125 mg PO QPM 06/12/18 02/13/19 warfarin 4 mg PO QPM 06/17/18 02/13/19 Combivent Respimat 1 puff INHALATION Q8H 09/04/18 02/13/19 gabapentin 600 mg PO QID 09/04/18 02/13/19 triamcinolone acetonide 1 applic TOPICAL BID 09/04/18 02/13/19 atorvastatin 80 mg PO BEDTIME 09/25/18 02/13/19 hydrocodone-acetaminophen 1 tab PO Q8H PRN 09/25/18 02/13/19 torsemide 1 tab PO BID 09/25/18 02/13/19 ascorbic acid (vitamin C) See Rx Instructions .ROUTE .COMPLEX 02/13/19 02/13/19 cetirizine [Allergy Relief 1 tab PO DAILY 02/13/19 02/13/19 (cetirizine)] ferrous sulfate 0.5 tab PO TID 02/13/19 02/13/19 Previous Rx's Medication Instructions Recorded potassium chloride 10 meq PO DAILY #30 cap 09/25/18 diltiazem HCl 120 mg PO DAILY #30 cap 02/20/19 hydrocodone-acetaminophen 1 tab PO Q6-8H PRN #30 tab 02/20/19 losartan 25 mg PO 2100 #30 tab 02/20/19 oxybutynin chloride 5 mg PO BID #30 tab 02/20/19 potassium chloride [Klor-Con M10] 10 meq PO DAILYCC #30 tab 02/20/19 sennosides [senna] 17.2 mg PO BEDTIME PRN #30 tab 02/20/19 ursodiol 300 mg PO BID #30 cap 02/20/19 warfarin [Coumadin] 5 mg PO 1700 #30 tab 02/20/19 Allergies Allergy/AdvReac Type Severity Reaction Status Date / Time captopril [CAPTOPRIL] Allergy Unknown Verified 09/25/18 14:09 nabumetone [NABUMETONE] Allergy Unknown Rash Verified 09/25/18 14:09 Review of Systems Constitutional Constitutional: Denies fever(s) Cardiovascular Cardiovascular: Denies chest pain and Denies dyspnea Respiratory Respiratory: Denies dyspnea Gastrointestinal Gastrointestinal: Denies abdominal pain Genitourinary Genitourinary: Denies dysuria Musculoskeletal Musculoskeletal: Reports arthralgias (Right ankle) Integumentary/Breasts Skin/Breast: Denies rash Neurologic Neurologic: Denies behavioral changes Psychiatric Psychiatric: Denies behavioral changes Hematologic/Lymphatic Hematologic/Lymphatic: Denies easy bleeding Patient History Medical History Atrial fibrillation (Chronic) Cholelithiasis (Resolved) Chronic anticoagulation (Acute) Chronic respiratory failure with hypoxia and hypercapnia (Acute) Depression (Chronic) Diabetes (Chronic) Fracture of left ankle (Resolved) Hyperlipidemia (Chronic) Hypertension (Chronic) Hypertension (Acute) Inguinal hernia (Resolved) Iron deficiency anemia (Acute) Lumbar degenerative disc disease (Chronic) Morbid obesity (Acute) Obesity (Chronic) Obesity hypoventilation syndrome (Acute) Osteoarthritis (Chronic) Pneumococcal meningitis (Chronic) Prolapsed bladder (Chronic) Social History household members: none Smoking Status: Current every day smoker alcohol intake: former additional social history: lives alone Smoking Status: Current every day smoker tobacco type: cigarettes alcohol intake frequency: 0-2 drinks per day Substance Use Type: does not use Exam Initial Vital Signs Initial Vital Signs: Vital Signs Temperature 98.0 F 12/23/19 02:51 Pulse Rate 81 12/23/19 02:51 Respiratory Rate 16 12/23/19 02:51 Blood Pressure 127/68 12/23/19 02:51 Pulse Oximetry 89 L 12/23/19 02:51 Const General: cooperative Nutritional Appearance: obese Limitations: mental status not altered Resp Effort & Inspection: normal respiratory effort Cardio Rate: regular rate Skin Lesions: no lesions Rashes: no rashes Neuro General: alert, awake and oriented x3 Extrem Other: Patient's right knee is unremarkable. Patient has no complaints in her right knee this evening. She does have tenderness to palpation around her right ankle. It is somewhat warm however not red. She can flex and extend however has pain. Pain seems to be located over the anterior portion. No Achilles tenderness pain. Has minimal pain with flex and extension. Has 5/5 strength left lower extremity. Has 3/5 strength right lower extremity with a straight leg raise. Course Orders Ordered: ED Orders 12/23/19 02:47 XR ankle RT 2V Stat Vital Signs Vital signs: Vital Signs - 8 hr 12/23/19 02:51 Temperature 98.0 F Pulse Rate 81 Respiratory Rate 16 Blood Pressure 127/68 Pulse Oximetry 89 L Medical Decision Making Imaging Data Extremity x-ray #1: Attestation: I personally reviewed and interpreted this imaging study as follows: My Impression: No acute fractures dislocation right ankle MDM Narrative Medical decision making narrative: Patient has no other complaints except for right ankle pain. There are no new changes on the x-ray. She does have arthritis in the ankle/foot which is not surprising. Her right ankle is somewhat warm however not red or erythematous. Patient has never had gout per her report. Her physical exam is not consistent with gout. No specific trauma. Patient has a wheelchair at home. She also has a couple hours of home health. Unfortunately does not meet criteria for admission to the hospital. Did discuss return precautions and follow-up instructions. He expressed understanding and agreement with plan. Discharge Plan Departure Patient Disposition: Home Clinical Impression: Arthritis Ankle pain, right Qualifiers: Chronicity: acute Qualified Code(s): M25.571 - Pain in right ankle and joints of right foot Instructions: DI for Arthritis Activity Restrictions/Additional Instructions: You have no limitations on your activity. Recommend you contact your primary provider for follow-up. Continue all of your medications as directed. Return to the emergency department for any new or worsening symptoms Prescriptions: No Action metformin [Glucophage] 500 mg tablet 500 mg PO BID RF: 0 oxybutynin chloride 10 mg tablet extended release 24hr 10 mg PO DAILY RF: 0 ursodiol 300 mg capsule 300 mg PO BID RF: 0 aspirin 81 mg Tablet,Delayed Release (Dr/Ec) 81 mg PO DAILY RF: 0 digoxin [Digitek] 125 mcg Tablet 0.125 mg PO QPM RF: 0 warfarin 5 mg tablet 4 mg PO QPM RF: 0 ascorbic acid (vitamin C) 500 mg Tablet See Rx Instructions .ROUTE .COMPLEX RF: 0 cetirizine [Allergy Relief (cetirizine)] 10 mg Tablet 1 tab PO DAILY RF: 0 ferrous sulfate 325 mg (65 mg iron) Tablet 0.5 tab PO TID RF: 0 sennosides [senna] 8.6 mg Tablet 17.2 mg PO BEDTIME PRN (Reason: Constipation) Qty: 30 RF: 0 ursodiol 300 mg Capsule 300 mg PO BID Qty: 30 RF: 0 warfarin [Coumadin] 5 mg Tablet 5 mg PO 1700 Qty: 30 RF: 0 losartan 25 mg Tablet 25 mg PO 2100 Qty: 30 RF: 0 diltiazem HCl 120 mg Capsule,Extended Release 24hr 120 mg PO DAILY Qty: 30 RF: 0 oxybutynin chloride 5 mg Tablet 5 mg PO BID Qty: 30 RF: 0 potassium chloride [Klor-Con M10] 10 mEq Tablet,Er Particles/Crystals 10 meq PO DAILYCC Qty: 30 RF: 0 hydrocodone-acetaminophen 7.5-325 mg tablet 1 tab PO Q6-8H PRN (Reason: pain) Qty: 30 RF: 0 triamcinolone acetonide 0.1 % Ointment 1 applic TOPICAL BID RF: 0 gabapentin 300 mg Capsule 600 mg PO QID RF: 0 Combivent Respimat 20-100 mcg/actuation Mist 1 puff Inhalation Q8H RF: 0 atorvastatin 80 mg tablet 80 mg PO BEDTIME RF: 0 torsemide 20 mg tablet 1 tab PO BID RF: 0 hydrocodone-acetaminophen 7.5-325 mg tablet 1 tab PO Q8H PRN (Reason: Pain, Moderate) RF: 0 potassium chloride 10 mEq capsule, extended release 10 meq PO DAILY Qty: 30 RF: 1 Referrals: Johnny Saini MD [Primary Care Provider] -
[2019-12-23 03:58] VITALS: BP 126/87; PULSE 84; RESP 14; O2SAT 87
--- NOTE | 2019-12-23 04:06 | PC.NURSE ---
Smith bandages were applied to R knee and ankle by Dr Avalos.
--- NOTE | 2019-12-23 05:15 | PC.NURSE ---
EMS reported that pt was unable to stand when they were at her house to transport her here, and when they attempted to transfer her to [facility], she slid to the floor and required elena lift.
== END 2019-12-23 04:50 | disposition home or self-care (01) ==
PROVIDERS: Emergency Provider Emergency Medicine; PCP Internal Medicine
DX: M25.571 Pain in right ankle and joints of right foot (principal); M19.90 Unspecified osteoarthritis, unspecified site; Z79.01 Long term (current) use of anticoagulants
CPT/HCPCS: 73600; 99283

== ENCOUNTER 2020-05-01 04:39 | Emergency (ER) | payer MEDICARE, MEDICAID, SELFPAY ==
[2018-06-18 14:20] VITALS: PULSE 68; RESP 23; O2SAT 95
[2019-02-13 01:35] VITALS: BMI 48.7
--- NOTE | 2020-05-01 04:45 | DI.RAD.S_ITS ---
PROCEDURE: XR KNEE RT 3V INDICATIONS: fall with knee pain TECHNIQUE: 3 views of the knee were acquired. COMPARISON: [facility], CT, CT LE RT WO CON, 05/01/2020, 5:50. [facility] [place], CR, XR KNEE ARTHRITIC SERIES BI, 02/06/2020, 15:33. FINDINGS: Bones: There is a fracture identified involving the lateral aspect of the distal femoral metaphysis that may extend into the joint. The bone mineralization is decreased. There is no dislocation or suspicious osseous lesion. Prominent degenerative changes of the knee are present. Soft tissues: There is a knee joint effusion with multiple intra-articular joint bodies. No suspicious soft tissue calcifications. IMPRESSION: Nondisplaced fracture of the medial distal femoral metaphysis. Note: The preliminary ED physician interpretation and the final report are concordant. Dictated by: Michael Narayan M.D. on 05/01/2020 at 8:52 Approved by: Michael Narayan M.D. on 05/01/2020 at 8:53
[2020-05-01 04:46] VITALS: BP 130/62; PULSE 73; RESP 23; TEMP 36.5; O2SAT 83; BMI 32.3
--- NOTE | 2020-05-01 05:30 | DI.CT.S_ITS ---
PROCEDURE: CT LE RT WO CON INDICATIONS: severe right knee pain TECHNIQUE: Noncontrast 1-1.5 mm axial sections acquired from the mid-patella to the proximal tibia, with coronal and sagittal reformats. COMPARISON: [facility], CR, XR KNEE RT 3V, 05/01/2020, 4:47. [facility] [place], CR, XR KNEE ARTHRITIC SERIES BI, 02/06/2020, 15:33. FINDINGS: Image quality: Diagnostic. Bones: The bone mineralization is decreased. No suspicious osseous lesions or dislocations are identified. There is obliquely oriented fracture evident involving the distal femur that predominantly is seen along the lateral femoral condyle. The fracture line extends into the femoral notch and there also is a fracture line identified involving the anterior margin of the lateral femoral condyle that extends into the articular surface. No articular surface offset is appreciated. There are severe degenerative changes of the knee joint with prominent joint space narrowing, subchondral sclerosis, large marginal osteophytes and numerous intra-articular joint bodies. Soft tissues: There is a large knee joint effusion containing numerous intra-articular joint bodies with the largest located along the lateral margin of the knee that measures up to at least 5 cm in largest dimension. Extensive atherosclerosis of the image arteries of the knee are present. Areas muscle atrophy are present. No soft tissue masses or drainable fluid collections are appreciated. IMPRESSION: 1. Nondisplaced intra-articular fracture of the distal femur predominantly seen involving the medial femoral condyle. 2. Knee joint effusion with multiple intra-articular joint bodies. 3. Severe degenerative changes of the knee. Note: The preliminary report provided by [facility] is concordant with the final report. Dictated by: Michael Narayan M.D. on 05/01/2020 at 8:57 Approved by: Michael Narayan M.D. on 05/01/2020 at 9:00
--- NOTE | 2020-05-01 05:37 | ED.LOWEXIN ---
HPI - Extremity Injury (Lower) <Erik Francoan, DO - Last Filed: 05/02/20 02:00> General Chief Complaint: Extremity Injury, Lower Stated Complaint: GLF Time Seen by Provider: 05/01/20 04:45 Source: patient and EMS Mode of arrival: EMS Limitations: no limitations History of Present Illness HPI Narrative: 69F daily smoker with history of COPD on home oxygen at between 2 and 4 L, diabetes, paroxysmal AFib on Coumadin, morbid obesity presents by EMS for evaluation of severe right knee pain. She lives at home alone and normally ambulates with a walker. She states that she fell earlier in severely injured her knee and though she was evaluated by EMS did not want to come despite their urging. She denies any head neck or back pain. She states that she had no precipitating events such as dizziness, weakness or lightheadedness. She has significant pain with any range of motion. She denies the sensation of instability or any awkward angles to suggest dislocation Related Data Home Medications Medication Instructions Recorded Confirmed aspirin 81 mg PO DAILY 04/12/18 02/13/19 metformin [Glucophage] 500 mg PO BID 04/12/18 02/13/19 oxybutynin chloride 10 mg PO DAILY 04/12/18 02/13/19 ursodiol 300 mg PO BID 04/12/18 02/13/19 digoxin [Digitek] 0.125 mg PO QPM 06/12/18 02/13/19 warfarin 4 mg PO QPM 06/17/18 02/13/19 Combivent Respimat 1 puff INHALATION Q8H 09/04/18 02/13/19 gabapentin 600 mg PO QID 09/04/18 02/13/19 triamcinolone acetonide 1 applic TOPICAL BID 09/04/18 02/13/19 atorvastatin 80 mg PO BEDTIME 09/25/18 02/13/19 hydrocodone-acetaminophen 1 tab PO Q8H PRN 09/25/18 02/13/19 torsemide 1 tab PO BID 09/25/18 02/13/19 ascorbic acid (vitamin C) See Rx Instructions .ROUTE .COMPLEX 02/13/19 02/13/19 cetirizine [Allergy Relief 1 tab PO DAILY 02/13/19 02/13/19 (cetirizine)] ferrous sulfate 0.5 tab PO TID 02/13/19 02/13/19 Previous Rx's Medication Instructions Recorded potassium chloride 10 meq PO DAILY #30 cap 09/25/18 diltiazem HCl 120 mg PO DAILY #30 cap 02/20/19 hydrocodone-acetaminophen 1 tab PO Q6-8H PRN #30 tab 02/20/19 losartan 25 mg PO 2100 #30 tab 02/20/19 oxybutynin chloride 5 mg PO BID #30 tab 02/20/19 potassium chloride [Klor-Con M10] 10 meq PO DAILYCC #30 tab 02/20/19 sennosides [senna] 17.2 mg PO BEDTIME PRN #30 tab 02/20/19 ursodiol 300 mg PO BID #30 cap 02/20/19 warfarin [Coumadin] 5 mg PO 1700 #30 tab 02/20/19 Allergies Allergy/AdvReac Type Severity Reaction Status Date / Time captopril [CAPTOPRIL] Allergy Unknown Verified 09/25/18 14:09 nabumetone [NABUMETONE] Allergy Unknown Rash Verified 09/25/18 14:09 Review of Systems <Erik Odonnell, - Last Filed: 05/02/20 02:00> Constitutional Constitutional: Denies chills, Denies fatigue, Denies fever(s), Denies frequent falls, Denies lethargy and Denies weakness Eyes Eyes: Denies change in vision, Denies eye discharge, Denies irritation and Denies loss of vision ENT Ears, Nose, Mouth, and Throat: Denies change in voice, Denies dizziness, Denies neck pain, Denies sore throat and Denies throat swelling Cardiovascular Cardiovascular: Denies chest pain, Denies irregular heart rhythm, Denies lightheadedness, Denies palpitations, Denies dyspnea, Denies dyspnea on exertion and Denies orthopnea Respiratory Respiratory: Denies cough, Denies dyspnea, Denies dyspnea on exertion and Denies wheezing Gastrointestinal Gastrointestinal: Denies abdominal pain, Denies change in bowel habits, Denies diarrhea, Denies nausea and Denies vomiting Musculoskeletal Musculoskeletal: Reports deformity, Reports arthralgias, Reports joint swelling, Denies neck pain and Denies numbness Integumentary/Breasts Skin/Breast: Denies pruritus, Denies erythema, Denies rash and Denies wounds Neurologic Neurologic: Denies behavioral changes, Denies confusion, Denies dizziness, Denies frequent falls, Denies loss of vision, Denies numbness and Denies weakness Psychiatric Psychiatric: Denies anxiety, Denies behavioral changes, Denies confusion, Denies depression, Denies homicidal ideation and Denies suicidal ideation Endocrine Endocrine: Denies fatigue, Denies flushing and Denies palpitations Hematologic/Lymphatic Hematologic/Lymphatic: Denies easy bruising Allergic/Immunologic Allergic/Immunologic: Denies urticaria, Denies throat swelling and Denies wheezing Patient History <Erik Odonnell DO - Last Filed: 05/02/20 02:00> Medical History Atrial fibrillation (Chronic) Cholelithiasis (Resolved) Chronic anticoagulation (Acute) Chronic respiratory failure with hypoxia and hypercapnia (Acute) Depression (Chronic) Diabetes (Chronic) Fracture of left ankle (Resolved) Hyperlipidemia (Chronic) Hypertension (Chronic) Hypertension (Acute) Inguinal hernia (Resolved) Iron deficiency anemia (Acute) Lumbar degenerative disc disease (Chronic) Morbid obesity (Acute) Obesity (Chronic) Obesity hypoventilation syndrome (Acute) Osteoarthritis (Chronic) Pneumococcal meningitis (Chronic) Prolapsed bladder (Chronic) Surgical History History of abdominoplasty (Resolved) History of gastric bypass (Resolved) Social History household members: none Smoking Status: Current every day smoker alcohol intake: former additional social history: lives alone Smoking Status: Current every day smoker tobacco type: cigarettes alcohol intake frequency: 0-2 drinks per day Substance Use Type: does not use Exam <Erik Odonnell DO - Last Filed: 05/02/20 02:00> Narrative Exam Narrative: GENERAL: [69] year old patient appears stated age. Well-nourished, well-developed patient, in mild distress. In pain, rubbing her knee HEAD: Atraumatic. Normocephalic. EYES: Pupils equal round and reactive. Extraocular motions intact. No scleral icterus. No injection or drainage. ENT: Nose without bleeding, purulent drainage. Throat without erythema, tonsillar hypertrophy or exudate. Airway patent. NECK: Trachea midline. Non tender CARDIOVASCULAR: Regular rate and rhythm without murmurs, gallops, or rubs. RESPIRATORY: Clear to auscultation. Breath sounds equal bilaterally. No wheezes, rales, or rhonchi. GASTROINTESTINAL: Abdomen soft, non-tender, nondistended. EXTREMITIES: Decreased range of motion of right knee secondary to pain, edema present most tender at proximal knee. Closed, isolated and neurovascularly intact. BACK: Nontender without deformity or crepitance. No flank tenderness. NEURO: AOx3. SKIN: No rash or erythema of visible areas Initial Vital Signs Initial Vital Signs: Vital Signs Temperature 97.7 F 05/01/20 04:46 Pulse Rate 73 05/01/20 04:46 Respiratory Rate 23 05/01/20 04:46 Blood Pressure 130/62 05/01/20 04:46 Pulse Oximetry 83 L 05/01/20 04:46 <Merlin Juárez MD - Last Filed: 05/01/20 07:54> Initial Vital Signs Initial Vital Signs: Vital Signs Temperature 97.7 F 05/01/20 04:46 Pulse Rate 73 05/01/20 04:46 Respiratory Rate 23 05/01/20 04:46 Blood Pressure 130/62 05/01/20 04:46 Pulse Oximetry 83 L 05/01/20 04:46 Course <Erik Odonnell DO - Last Filed: 05/02/20 02:00> Course Course Narrative: patient signed out to Dr. Juárez for final disposition with likely transfer to [facility] for definitive care. Orders Ordered: Discontinued Medications Hydromorphone HCl (Dilaudid) 0.5 mg IV NOW ONE Stop: 05/01/20 06:57 Last Admin: 05/01/20 07:03 Dose: 0.5 mg Documented by: SARAHI Morphine Sulfate (Morphine) 2 mg IV NOW ONE Stop: 05/01/20 08:57 Last Admin: 05/01/20 09:12 Dose: 2 mg Documented by: KAMI Ondansetron HCl (Zofran) 4 mg IV NOW ONE Stop: 05/01/20 08:57 Last Admin: 05/01/20 09:12 Dose: 4 mg Documented by: KAMI Vital Signs Vital signs: Vital Signs - 8 hr 05/01/20 04:46 05/01/20 06:15 Temperature 97.7 F Pulse Rate 73 76 Respiratory Rate 23 20 Blood Pressure 130/62 Blood Pressure [Left Arm] 109/67 Pulse Oximetry 83 L 96 <Merlin Juárez MD - Last Filed: 05/01/20 07:54> Orders Ordered: Discontinued Medications Hydromorphone HCl (Dilaudid) 0.5 mg IV NOW ONE Stop: 05/01/20 06:57 Last Admin: 05/01/20 07:03 Dose: 0.5 mg Documented by: SARAHI Morphine Sulfate (Morphine) 2 mg IV NOW ONE Stop: 05/01/20 08:57 Last Admin: 05/01/20 09:12 Dose: 2 mg Documented by: KAMI Ondansetron HCl (Zofran) 4 mg IV NOW ONE Stop: 05/01/20 08:57 Last Admin: 05/01/20 09:12 Dose: 4 mg Documented by: KAMI Vital Signs Vital signs: Vital Signs - 8 hr 05/01/20 04:46 05/01/20 06:15 Temperature 97.7 F Pulse Rate 73 76 Respiratory Rate 23 20 Blood Pressure 130/62 Blood Pressure [Left Arm] 109/67 Pulse Oximetry 83 L 96 MDM - Extremity Injury (Lower) <Erik Odonnell DO - Last Filed: 05/02/20 02:00> Lab Data Result diagrams: 05/01/20 07:10 05/01/20 07:10 Labs: Lab Results 05/01/20 05/01/20 05/01/20 Range/Units 07:10 07:10 07:10 WBC 9.3 (4.5-11.0) X10^3/uL RBC 5.28 H (4.0-5.2) X10^6/uL Hgb 16.5 H (12.0-16.0) g/dL Hct 50.0 H (36-46) % MCV 94.8 (80-100) fL MCH 31.2 (26-34) PG MCHC 32.9 (30-36) % RDW 18.3 H (11.6-14.8) % Plt Count 245 (150-400) X10^3/uL Neut % (Auto) 81.5 H (50-75) % Lymph % (Auto) 8.5 L (25-40) % [place] % (Auto) 8.5 (3-14) % Eos % (Auto) 0.9 L (2-4) % Baso % (Auto) 0.6 (0-2) % Neut # (Auto) 7600 H (5343-8182) /uL Lymph # (Auto) 800 L (1363-4714) /uL [place] # (Auto) 800 (0-900) /uL Eos # (Auto) 100 (0-450) /uL Baso # (Auto) 100 (0-100) /uL PT 11.7 (10.1-12.7) SECONDS INR 1.0 (0.9-1.3) Sodium 132 L (137-145) mmol/L Potassium 4.3 (3.4-5.1) mmol/L Chloride 89 L (98-107) mmol/L Carbon Dioxide 37 H (22-32) mmol/L BUN 7 (7-17) mg/dL Creatinine 0.48 L (0.52-1.04) mg/dL Estimated GFR > 60.0 (>60) mL/min BUN/Creatinine Ratio 14.6 (6-22) Glucose 86 (80-110) mg/dL Calcium 9.0 (8.4-10.2) mg/dL Point of Care Testing Glucose POC 117 <Merlin Juárez MD - Last Filed: 05/01/20 07:54> Lab Data Labs: Lab Results 05/01/20 05/01/20 05/01/20 Range/Units 07:10 07:10 07:10 WBC 9.3 (4.5-11.0) X10^3/uL RBC 5.28 H (4.0-5.2) X10^6/uL Hgb 16.5 H (12.0-16.0) g/dL Hct 50.0 H (36-46) % MCV 94.8 (80-100) fL MCH 31.2 (26-34) PG MCHC 32.9 (30-36) % RDW 18.3 H (11.6-14.8) % Plt Count 245 (150-400) X10^3/uL Neut % (Auto) 81.5 H (50-75) % Lymph % (Auto) 8.5 L (25-40) % [place] % (Auto) 8.5 (3-14) % Eos % (Auto) 0.9 L (2-4) % Baso % (Auto) 0.6 (0-2) % Neut # (Auto) 7600 H (5877-7044) /uL Lymph # (Auto) 800 L (2716-1675) /uL [place] # (Auto) 800 (0-900) /uL Eos # (Auto) 100 (0-450) /uL Baso # (Auto) 100 (0-100) /uL PT 11.7 (10.1-12.7) SECONDS INR 1.0 (0.9-1.3) Sodium 132 L (137-145) mmol/L Potassium 4.3 (3.4-5.1) mmol/L Chloride 89 L (98-107) mmol/L Carbon Dioxide 37 H (22-32) mmol/L BUN 7 (7-17) mg/dL Creatinine 0.48 L (0.52-1.04) mg/dL Estimated GFR > 60.0 (>60) mL/min BUN/Creatinine Ratio 14.6 (6-22) Glucose 86 (80-110) mg/dL Calcium 9.0 (8.4-10.2) mg/dL Point of Care Testing Glucose POC 117 MDM Narrative Medical decision making narrative: 7:51 a.m., spoke with [facility] transfer center nurse Adele almonte, she spoke with Dr. Marcelino, orthopedics and he wants to see patient in their emergency department I spoke with emergency department attending dr alaniz...he will accept pt Discharge Plan Departure Patient Disposition: [facility] Clinical Impression: Femoral distal fracture Qualifiers: Encounter type: initial encounter Fracture type: closed Fracture morphology: unspecified fracture morphology Laterality: right Qualified Code(s): S72.401A - Unspecified fracture of lower end of right femur, initial encounter for closed fracture Discharge Date/Time: 05/01/20 09:44 Prescriptions: No Action metformin [Glucophage] 500 mg tablet 500 mg PO BID RF: 0 oxybutynin chloride 10 mg tablet extended release 24hr 10 mg PO DAILY RF: 0 ursodiol 300 mg capsule 300 mg PO BID RF: 0 aspirin 81 mg Tablet,Delayed Release (Dr/Ec) 81 mg PO DAILY RF: 0 digoxin [Digitek] 125 mcg Tablet 0.125 mg PO QPM RF: 0 warfarin 5 mg tablet 4 mg PO QPM RF: 0 ascorbic acid (vitamin C) 500 mg Tablet See Rx Instructions .ROUTE .COMPLEX RF: 0 cetirizine [Allergy Relief (cetirizine)] 10 mg Tablet 1 tab PO DAILY RF: 0 ferrous sulfate 325 mg (65 mg iron) Tablet 0.5 tab PO TID RF: 0 sennosides [senna] 8.6 mg Tablet 17.2 mg PO BEDTIME PRN (Reason: Constipation) Qty: 30 RF: 0 ursodiol 300 mg Capsule 300 mg PO BID Qty: 30 RF: 0 warfarin [Coumadin] 5 mg Tablet 5 mg PO 1700 Qty: 30 RF: 0 losartan 25 mg Tablet 25 mg PO 2100 Qty: 30 RF: 0 diltiazem HCl 120 mg Capsule,Extended Release 24hr 120 mg PO DAILY Qty: 30 RF: 0 oxybutynin chloride 5 mg Tablet 5 mg PO BID Qty: 30 RF: 0 potassium chloride [Klor-Con M10] 10 mEq Tablet,Er Particles/Crystals 10 meq PO DAILYCC Qty: 30 RF: 0 hydrocodone-acetaminophen 7.5-325 mg tablet 1 tab PO Q6-8H PRN (Reason: pain) Qty: 30 RF: 0 triamcinolone acetonide 0.1 % Ointment 1 applic TOPICAL BID RF: 0 gabapentin 300 mg Capsule 600 mg PO QID RF: 0 Combivent Respimat 20-100 mcg/actuation Mist 1 puff Inhalation Q8H RF: 0 atorvastatin 80 mg tablet 80 mg PO BEDTIME RF: 0 torsemide 20 mg tablet 1 tab PO BID RF: 0 hydrocodone-acetaminophen 7.5-325 mg tablet 1 tab PO Q8H PRN (Reason: Pain, Moderate) RF: 0 potassium chloride 10 mEq capsule, extended release 10 meq PO DAILY Qty: 30 RF: 1 Referrals: Johnny Saini MD [Primary Care Provider] -
--- NOTE | 2020-05-01 05:48 | PC.NURSE ---
Pt states was walking with her walker when she slipped and fell onto carpeted [place]. Pt denies hitting her head or LOC, denies use of blood thinning medications, Pt states currently unable to bear weight to RLE. Pt noted with swelling to R upper leg compared to L upper leg. Pt in NAD.
[2020-05-01 06:15] VITALS: BP 109/67; PULSE 76; RESP 20; O2SAT 96
--- NOTE | 2020-05-01 06:54 | PC.NURSE ---
20 inch knee immobilizer applied to pt's R knee, pt tolerated placement well.
[2020-05-01] MEDS: HYDROMORPHONE 0.5 MG INJ IV (07:03)
[2020-05-01 07:30] LABS: Add Manual Diff / Slide Review NO; Basophils Absolute Auto 100 /uL (0-100); Basophils Percent Auto 0.6 % (0-2); Eosinophils Absolute Auto 100 /uL (0-450); Eosinophils Percent Auto 0.9 % (2-4); Hemoglobin 16.5 g/dL (12.0-16.0); Lymphocytes Absolute Auto 800 /uL (1100-4500); Lymphocytes Percent Auto 8.5 % (25-40); Mean Corpuscular HGB Conc 32.9 % (30-36); Mean Corpuscular Hemoglobin 31.2 PG (26-34); Mean Corpuscular Volume 94.8 fL (80-100); Monocytes Absolute Auto 800 /uL (0-900); Monocytes Percent Auto 8.5 % (3-14); Neutrophils Absolute Auto 7600 /uL (1500-7000); Neutrophils Percent Auto 81.5 % (50-75); Platelet Count 245 X10^3/uL (150-400); Red Blood Cell Count 5.28 X10^6/uL (4.0-5.2); Red Cell Distribution Width 18.3 % (11.6-14.8); White Blood Cell Count 9.3 X10^3/uL (4.5-11.0)
[2020-05-01 07:33] LABS: Prothrombin Time 11.7 SECONDS (10.1-12.7)
[2020-05-01 07:37] LABS: BUN Creatinine Ratio 14.6 (6-22); Blood Urea Nitrogen 7 mg/dL (7-17); Carbon Dioxide 37 mmol/L (22-32); Chloride 89 mmol/L (98-107); Estimated Glomerular Filt Rate > 60.0 mL/min (>60); Glucose 86 mg/dL (80-110); HEMOLYSIS 20 (0-50); Potassium 4.3 mmol/L (3.4-5.1); Sodium 132 mmol/L (137-145)
[2020-05-01 07:50] VITALS: BP 156/75; PULSE 81; RESP 20; O2SAT 94
[2020-05-01] MEDS: MORPHINE 2 MG/ML INJ IV (09:12)
[2020-05-01] MEDS: ONDANSETRON 4 MG/2 ML INJ IV (09:12)
== END 2020-05-01 09:44 | disposition short-term general hospital (02) ==
PROVIDERS: Emergency Medicine; Emergency Provider Emergency Medicine; PCP Internal Medicine
DX: S72.401A Unspecified fracture of lower end of right femur, initial encounter for closed fracture (principal); W19.XXXA Unspecified fall, initial encounter; J44.9 Chronic obstructive pulmonary disease, unspecified; E66.01 Morbid (severe) obesity due to excess calories; I48.0 Paroxysmal atrial fibrillation; Z79.01 Long term (current) use of anticoagulants
CPT/HCPCS: 36415; 73562; 73700; 80048; 82962; 85025; 85610; 96374; 96375; 99284; 99285; J1170; J2270; J2405

== ENCOUNTER 2021-01-21 22:40 | Emergency (ER) | payer MEDICARE, MEDICAID, SELFPAY ==
[2018-06-18 14:20] VITALS: PULSE 68; RESP 23; O2SAT 95
[2019-02-13 01:35] VITALS: BMI 48.7
[2021-01-21 22:43] VITALS: BP 117/62; PULSE 82; O2SAT 85
[2021-01-21 22:48] VITALS: BP 117/62; PULSE 82; RESP 22; TEMP 36.9; O2SAT 91; BMI 46.6
[2021-01-21 23:00] VITALS: PULSE 76; RESP 22; O2SAT 93
[2021-01-21 23:04] VITALS: BP 115/67; PULSE 76; RESP 21; O2SAT 93
[2021-01-21 23:30] VITALS: BP 124/72; PULSE 76; RESP 22; O2SAT 93
[2021-01-21 23:31] LABS: Lactate (Lactic Acid) 0.8 mmol/L (0.7-2.1)
[2021-01-21 23:32] LABS: BUN Creatinine Ratio 33.8 (6-22); Blood Urea Nitrogen 23 mg/dL (7-17); Carbon Dioxide 36 mmol/L (22-32); Chloride 99 mmol/L (98-107); Creatine Kinase 29 U/L (30-135); Estimated Glomerular Filt Rate > 60.0 mL/min (>60); Glucose 121 mg/dL (80-110); HEMOLYSIS < 15 (0-50); Magnesium 2.1 mg/dL (1.6-2.3); Potassium 4.2 mmol/L (3.4-5.1); Sodium 136 mmol/L (137-145)
[2021-01-21 23:35] LABS: Add Manual Diff / Slide Review NO; Basophils Absolute Auto 100 /uL (0-100); Eosinophils Absolute Auto 100 /uL (0-450); Eosinophils Percent Auto 1.2 % (2-4); Hematocrit 35.2 % (36-46); Hemoglobin 11.1 g/dL (12.0-16.0); Lymphocytes Absolute Auto 1700 /uL (1100-4500); Lymphocytes Percent Auto 20.5 % (25-40); Mean Corpuscular HGB Conc 31.4 % (30-36); Monocytes Absolute Auto 900 /uL (0-900); Monocytes Percent Auto 11.1 % (3-14); Neutrophils Absolute Auto 5500 /uL (1500-7000); Neutrophils Percent Auto 66.2 % (50-75); Platelet Count 375 X10^3/uL (150-400); Red Blood Cell Count 4.09 X10^6/uL (4.0-5.2); Red Cell Distribution Width 17.2 % (11.6-14.8); White Blood Cell Count 8.3 X10^3/uL (4.5-11.0)
[2021-01-21 23:43] LABS: Troponin I < 0.012 ng/mL (0.01-0.034)
[2021-01-22] VITALS: BP 134/72; PULSE 75; RESP 22; O2SAT 93
--- NOTE | 2021-01-22 00:26 | ED.AMS ---
HPI - Altered Mental Status <Taniamohit Wallis, DO - Last Filed: 01/22/21 06:46> General Chief Complaint: Shortness of Breath/Dyspnea Stated Complaint: Lethargic Time Seen by Provider: 01/22/21 00:21 Source: EMS Mode of arrival: EMS Limitations: altered mental status and other History of Present Illness HPI narrative: This is a 70-year-old male who is brought via EMS for lethargy. She lives at a care facility they noted that she has been more difficult to wake in they checked her O2 and it was low in the 80s and is even as low as 79%. EMS states patient is not normally on home O2 although her paperwork does appear that she normally can be on 2-4L N/C. Patient arouses to verbal stimuli she can tell me her name, she tells me she is in the emergency department and then immediately goes back to sleep. She does have a history of dementia. She does not answer any other questions. She does respond to sternal rub or loud questioning. Patient is not have any slurred speech. She otherwise does not answer any other questions. Prior ER visits and hospitalizations show her last admission is January of 2019 with chronic respiratory failure with hypoxia and hypercapnia, morbid obesity, COPD, atrial fibrillation, diabetes and chronic pain with opioid dependence. At that time she had non a here instead with oxygen therapy. She is currently in a nursing facility at that time she had been living at home. Patient also has some dementia that is been reported. Was in April of 2020 for a fall with a distal femoral fracture at that time she was on coumadin. Related Data Home Medications Medication Instructions Recorded Confirmed aspirin 81 mg PO DAILY 04/12/18 02/13/19 metformin [Glucophage] 500 mg PO BID 04/12/18 02/13/19 oxybutynin chloride 10 mg PO DAILY 04/12/18 02/13/19 ursodiol 300 mg PO BID 04/12/18 02/13/19 digoxin [Digitek] 0.125 mg PO QPM 06/12/18 02/13/19 warfarin 4 mg PO QPM 06/17/18 02/13/19 Combivent Respimat 1 puff INHALATION Q8H 09/04/18 02/13/19 gabapentin 600 mg PO QID 09/04/18 02/13/19 triamcinolone acetonide 1 applic TOPICAL BID 09/04/18 02/13/19 atorvastatin 80 mg PO BEDTIME 09/25/18 02/13/19 hydrocodone-acetaminophen 1 tab PO Q8H PRN 09/25/18 02/13/19 torsemide 1 tab PO BID 09/25/18 02/13/19 ascorbic acid (vitamin C) See Rx Instructions .ROUTE .COMPLEX 02/13/19 02/13/19 cetirizine [Allergy Relief 1 tab PO DAILY 02/13/19 02/13/19 (cetirizine)] ferrous sulfate 0.5 tab PO TID 02/13/19 02/13/19 Previous Rx's Medication Instructions Recorded potassium chloride 10 meq PO DAILY #30 cap 09/25/18 diltiazem HCl 120 mg PO DAILY #30 cap 02/20/19 hydrocodone-acetaminophen 1 tab PO Q6-8H PRN #30 tab 02/20/19 losartan 25 mg PO 2100 #30 tab 02/20/19 oxybutynin chloride 5 mg PO BID #30 tab 02/20/19 potassium chloride [Klor-Con M10] 10 meq PO DAILYCC #30 tab 02/20/19 sennosides [senna] 17.2 mg PO BEDTIME PRN #30 tab 02/20/19 ursodiol 300 mg PO BID #30 cap 02/20/19 warfarin [Coumadin] 5 mg PO 1700 #30 tab 02/20/19 Allergies Allergy/AdvReac Type Severity Reaction Status Date / Time captopril [CAPTOPRIL] Allergy Unknown Verified 09/25/18 14:09 nabumetone [NABUMETONE] Allergy Unknown Rash Verified 09/25/18 14:09 Review of Systems <Tania Wallis DO - Last Filed: 01/22/21 06:46> Review of Systems ROS Unobtainable: Unobtainable due to mental status/LOC Patient History <Tania Wallis DO - Last Filed: 01/22/21 06:46> Medical History (Updated 01/22/21 @ 04:59 by Tania Wallis DO) Atrial fibrillation Cholelithiasis Chronic anticoagulation Chronic respiratory failure with hypoxia and hypercapnia Depression Diabetes Fracture of left ankle Hyperlipidemia Hypertension Hypertension Inguinal hernia Iron deficiency anemia Lumbar degenerative disc disease Morbid obesity Obesity Obesity hypoventilation syndrome Osteoarthritis Pneumococcal meningitis Prolapsed bladder Surgical History History of abdominoplasty History of gastric bypass Social History household members: none Smoking Status: Current every day smoker alcohol intake: former additional social history: lives alone Smoking Status: Current every day smoker tobacco type: cigarettes alcohol intake frequency: 0-2 drinks per day Substance Use Type: does not use Exam <Tania Wallis DO - Last Filed: 01/22/21 06:46> Narrative Exam Narrative: GEN: Obese female, patient is somnolent although she did have her eyes open initially when I was speaking with the nurse, she does respond to verbal stimuli she will answer her name and that she is in the emergency department and then immediately lays her head back down and goes back to sleep, patient appears to be in [id number] distress. She says this with clear speech. HEENT: Atraumatic, pupils are equal round reactive to light, extraocular movements are intact, nares are clear, TMs are clear with no fluid, there is no conjunctival pallor. No facial droop appreciated. HEART: Regular rate and rhythm without murmur, clicks, rubs. No carotid bruits, pulses are equal in upper and lower extremities LUNGS:Lungs clear to auscultation, no wheezes, rales, crackles, chest moves symmetrically ABD:bowel sounds normal, soft, non-tender, no guarding, rebound, rigidity, no masses noted, no hepatosplenomegaly :No CVA tenderness MSCL: Non-tender, no edema appreciated. NEURO:CN 2-12 intact, sensation normal SKIN: Rash, erythema or other skin changes appreciated. Initial Vital Signs Initial Vital Signs: Vital Signs Pulse Rate 82 01/21/21 22:43 Blood Pressure 117/62 01/21/21 22:43 Pulse Oximetry 85 L 01/21/21 22:43 <Davy Avalos DO - Last Filed: 01/22/21 08:52> Initial Vital Signs Initial Vital Signs: Vital Signs Pulse Rate 82 01/21/21 22:43 Blood Pressure 117/62 01/21/21 22:43 Pulse Oximetry 85 L 01/21/21 22:43 Scores <Tania Wallis DO - Last Filed: 01/22/21 06:46> GCS [place] coma scale eye opening: Spontaneous Christina coma scale verbal response: Words [place] coma scale motor response: Localising [place] coma scale total score: 12 Course <Tania Wallis DO - Last Filed: 01/22/21 06:46> Orders Ordered: ED Orders 01/22/21 00:31 XR chest 1V Stat COVID19 Stat NT-proBNP (BNP-Adult 18+) Stat 01/22/21 00:32 CT head/brain wo con Stat 01/22/21 00:36 Partial Thromboplastin Time Stat Prothrombin Time INR Stat 01/22/21 00:41 Arterial Blood Gas Stat 01/22/21 00:55 Urinalysis and Microscopic Stat Urine Drug Screen, Rapid Stat 01/22/21 02:04 ABG [Arterial Blood Gas] Stat Discontinued Medications Acetaminophen (Acetaminophen 325 Mg Tablet) 975 mg PO NOW ONE Stop: 01/22/21 05:00 Last Admin: 01/22/21 05:08 Dose: 975 mg Documented by: ADY Albuterol/Ipratropium (Albuterol/Ipratropium 3 Ml Ampul) 3 ml INH NOW ONE Stop: 01/21/21 23:17 Last Admin: 01/22/21 05:09 Dose: Not Given Documented by: ADY Methylprednisolone (Methylprednisolone 125 Mg/2 Ml Vial) 125 mg IV NOW ONE Stop: 01/21/21 23:17 Last Admin: 01/22/21 05:09 Dose: Not Given Documented by: ADY Reevaluation(s) Reevaluation #1: Patient mentation continues to improve and she answers questions appropriately. She is aware of plan for Head CT and requires transfer to [facility] as current CT is not working. Time: 02:35 Reevaluation #2: Patient just returned from [facility] for Head CT and is more alert and talkative. Time: 04:30 Reevaluation #3: patient has headache but denies any other issues. States she was sleeping earlier and that is why she was so difficulty to awaken at the facility. She and I reviewed her findings today. Time: 05:13 Vital Signs Vital signs: Vital Signs - 8 hr 01/21/21 22:48 01/21/21 23:00 01/21/21 23:04 Temperature 98.5 F Pulse Rate 82 76 76 Respiratory Rate 22 22 21 Blood Pressure 117/62 115/67 Pulse Oximetry 91 93 93 01/21/21 23:30 01/22/21 00:00 Temperature Pulse Rate 76 75 Respiratory Rate 22 22 Blood Pressure 124/72 134/72 Pulse Oximetry 93 93 <Davy Avalos DO - Last Filed: 01/22/21 08:52> Orders Ordered: ED Orders 01/22/21 00:31 XR chest 1V Stat COVID19 Stat NT-proBNP (BNP-Adult 18+) Stat 01/22/21 00:32 CT head/brain wo con Stat 01/22/21 00:36 Partial Thromboplastin Time Stat Prothrombin Time INR Stat 01/22/21 00:41 Arterial Blood Gas Stat 01/22/21 00:55 Urinalysis and Microscopic Stat Urine Drug Screen, Rapid Stat 01/22/21 02:04 ABG [Arterial Blood Gas] Stat Discontinued Medications Acetaminophen (Acetaminophen 325 Mg Tablet) 975 mg PO NOW ONE Stop: 01/22/21 05:00 Last Admin: 01/22/21 05:08 Dose: 975 mg Documented by: ADY Albuterol/Ipratropium (Albuterol/Ipratropium 3 Ml Ampul) 3 ml INH NOW ONE Stop: 01/21/21 23:17 Last Admin: 01/22/21 05:09 Dose: Not Given Documented by: ADY Methylprednisolone (Methylprednisolone 125 Mg/2 Ml Vial) 125 mg IV NOW ONE Stop: 01/21/21 23:17 Last Admin: 01/22/21 05:09 Dose: Not Given Documented by: ADY Vital Signs Vital signs: Vital Signs - 8 hr 01/21/21 22:48 01/21/21 23:00 01/21/21 23:04 Temperature 98.5 F Pulse Rate 82 76 76 Respiratory Rate 22 22 21 Blood Pressure 117/62 115/67 Pulse Oximetry 91 93 93 01/21/21 23:30 01/22/21 00:00 Temperature Pulse Rate 76 75 Respiratory Rate 22 22 Blood Pressure 124/72 134/72 Pulse Oximetry 93 93 MDM - Altered Mental Status <Tania Wallis DO - Last Filed: 01/22/21 06:46> Lab Data Attestation: I reviewed the patient's lab results. Result diagrams: 01/21/21 23:15 01/21/21 23:15 Labs: Lab Results 01/21/21 01/21/21 01/21/21 Range/Units 23:15 23:15 23:15 WBC 8.3 (4.5-11.0) X10^3/uL RBC 4.09 (4.0-5.2) X10^6/uL Hgb 11.1 L (12.0-16.0) g/dL Hct 35.2 L (36-46) % MCV 86.0 (80-100) fL MCH 27.0 (26-34) PG MCHC 31.4 (30-36) % RDW 17.2 H (11.6-14.8) % Plt Count 375 (150-400) X10^3/uL Neut % (Auto) 66.2 (50-75) % Lymph % (Auto) 20.5 L (25-40) % [place] % (Auto) 11.1 (3-14) % Eos % (Auto) 1.2 L (2-4) % Baso % (Auto) 1.0 (0-2) % Neut # (Auto) 5500 (5549-9810) /uL Lymph # (Auto) 1700 (2625-6890) /uL [place] # (Auto) 900 (0-900) /uL Eos # (Auto) 100 (0-450) /uL Baso # (Auto) 100 (0-100) /uL PT (10.1-12.7) SECONDS INR (0.9-1.3) APTT (26.4-36.2) SECONDS ABG pH (7.35-7.45) ABG pCO2 (35-45) mmHg ABG pO2 (80-100) mmHg ABG HCO3 (22-26) mmol/L ABG Total CO2 (21-31) mmol/L ABG O2 Saturation (95-100) % ABG Base Excess (-2-2) mmol/L FiO2 Sodium 136 L (137-145) mmol/L Potassium 4.2 (3.4-5.1) mmol/L Chloride 99 (98-107) mmol/L Carbon Dioxide 36 H (22-32) mmol/L BUN 23 H (7-17) mg/dL Creatinine 0.68 (0.52-1.04) mg/dL Estimated GFR > 60.0 (>60) mL/min BUN/Creatinine Ratio 33.8 H (6-22) Glucose 121 H (80-110) mg/dL Lactate 0.8 (0.7-2.1) mmol/L Calcium 9.0 (8.4-10.2) mg/dL Magnesium 2.1 (1.6-2.3) mg/dL Total Creatine Kinase 29 L (30-135) U/L CK-MB (CK-2) TNP CK-MB (CK-2) Rel Index TNP Troponin I < 0.012 (0.01-0.034) ng/mL NT-Pro-B Natriuret Pep (<125) pg/mL Urine Color Urine Appearance Urine pH (4.5-8.0) Ur Specific Orient (1.000-1.035) Urine Protein (Negative) Urine Glucose (UA) (Negative) g/dL Urine Ketones (NEGATIVE) Urine Occult Blood (Negative) Urine Nitrate (Negative) Urine Bilirubin (NEGATIVE) Urine Urobilinogen (0.2) E.U./dL Ur Leukocyte Esterase (NEGATIVE) Urine RBC (0-5/HPF) Urine WBC (0-5/HPF) Ur Squamous Epith Cells (0-5/HPF) Urine Bacteria (None) Ur Culture Indicated? U Opiates 300ng/mL cut (Negative) Ur Oxycodone Screen (Negative) Urine Methadone Screen (Negative) Ur Barbiturates Screen (Negative) U Tricyclic Antidepress (Negative) Ur Phencyclidine Scrn (Negative) Ur Amphetamines Screen (Negative) U Methamphetamines Scrn (Negative) Ur MDMA Scrn (Ecstasy) (Negative) U Benzodiazepines Scrn (Negative) Urine Cocaine Screen (Negative) U Marijuana (THC) Screen (Negative) SARS-CoV-2 (PCR) (Negative) 01/21/21 01/21/21 01/22/21 Range/Units 23:15 23:15 00:31 WBC (4.5-11.0) X10^3/uL RBC (4.0-5.2) X10^6/uL Hgb (12.0-16.0) g/dL Hct (36-46) % MCV (80-100) fL MCH (26-34) PG MCHC (30-36) % RDW (11.6-14.8) % Plt Count (150-400) X10^3/uL Neut % (Auto) (50-75) % Lymph % (Auto) (25-40) % [place] % (Auto) (3-14) % Eos % (Auto) (2-4) % Baso % (Auto) (0-2) % Neut # (Auto) (0167-8192) /uL Lymph # (Auto) (1670-6644) /uL [place] # (Auto) (0-900) /uL Eos # (Auto) (0-450) /uL Baso # (Auto) (0-100) /uL PT 15.0 H (10.1-12.7) SECONDS INR 1.3 (0.9-1.3) APTT 41 H D (26.4-36.2) SECONDS ABG pH (7.35-7.45) ABG pCO2 (35-45) mmHg ABG pO2 (80-100) mmHg ABG HCO3 (22-26) mmol/L ABG Total CO2 (21-31) mmol/L ABG O2 Saturation (95-100) % ABG Base Excess (-2-2) mmol/L FiO2 Sodium (137-145) mmol/L Potassium (3.4-5.1) mmol/L Chloride (98-107) mmol/L Carbon Dioxide (22-32) mmol/L BUN (7-17) mg/dL Creatinine (0.52-1.04) mg/dL Estimated GFR (>60) mL/min BUN/Creatinine Ratio (6-22) Glucose (80-110) mg/dL Lactate (0.7-2.1) mmol/L Calcium (8.4-10.2) mg/dL Magnesium (1.6-2.3) mg/dL Total Creatine Kinase (30-135) U/L CK-MB (CK-2) CK-MB (CK-2) Rel Index Troponin I (0.01-0.034) ng/mL NT-Pro-B Natriuret Pep 281 H (<125) pg/mL Urine Color Urine Appearance Urine pH (4.5-8.0) Ur Specific Orient (1.000-1.035) Urine Protein (Negative) Urine Glucose (UA) (Negative) g/dL Urine Ketones (NEGATIVE) Urine Occult Blood (Negative) Urine Nitrate (Negative) Urine Bilirubin (NEGATIVE) Urine Urobilinogen (0.2) E.U./dL Ur Leukocyte Esterase (NEGATIVE) Urine RBC (0-5/HPF) Urine WBC (0-5/HPF) Ur Squamous Epith Cells (0-5/HPF) Urine Bacteria (None) Ur Culture Indicated? U Opiates 300ng/mL cut (Negative) Ur Oxycodone Screen (Negative) Urine Methadone Screen (Negative) Ur Barbiturates Screen (Negative) U Tricyclic Antidepress (Negative) Ur Phencyclidine Scrn (Negative) Ur Amphetamines Screen (Negative) U Methamphetamines Scrn (Negative) Ur MDMA Scrn (Ecstasy) (Negative) U Benzodiazepines Scrn (Negative) Urine Cocaine Screen (Negative) U Marijuana (THC) Screen (Negative) SARS-CoV-2 (PCR) Negative (Negative) 01/22/21 01/22/21 01/22/21 Range/Units 00:41 00:55 00:55 WBC (4.5-11.0) X10^3/uL RBC (4.0-5.2) X10^6/uL Hgb (12.0-16.0) g/dL Hct (36-46) % MCV (80-100) fL MCH (26-34) PG MCHC (30-36) % RDW (11.6-14.8) % Plt Count (150-400) X10^3/uL Neut % (Auto) (50-75) % Lymph % (Auto) (25-40) % [place] % (Auto) (3-14) % Eos % (Auto) (2-4) % Baso % (Auto) (0-2) % Neut # (Auto) (6011-1808) /uL Lymph # (Auto) (7440-9055) /uL [place] # (Auto) (0-900) /uL Eos # (Auto) (0-450) /uL Baso # (Auto) (0-100) /uL PT (10.1-12.7) SECONDS INR (0.9-1.3) APTT (26.4-36.2) SECONDS ABG pH 7.34 L (7.35-7.45) ABG pCO2 63.4 H* (35-45) mmHg ABG pO2 77 L (80-100) mmHg ABG HCO3 34 H (22-26) mmol/L ABG Total CO2 36 H (21-31) mmol/L ABG O2 Saturation 94 L (95-100) % ABG Base Excess 8.0 H (-2-2) mmol/L FiO2 28 Sodium (137-145) mmol/L Potassium (3.4-5.1) mmol/L Chloride (98-107) mmol/L Carbon Dioxide (22-32) mmol/L BUN (7-17) mg/dL Creatinine (0.52-1.04) mg/dL Estimated GFR (>60) mL/min BUN/Creatinine Ratio (6-22) Glucose (80-110) mg/dL Lactate (0.7-2.1) mmol/L Calcium (8.4-10.2) mg/dL Magnesium (1.6-2.3) mg/dL Total Creatine Kinase (30-135) U/L CK-MB (CK-2) CK-MB (CK-2) Rel Index Troponin I (0.01-0.034) ng/mL NT-Pro-B Natriuret Pep (<125) pg/mL Urine Color Yellow Urine Appearance Clear Urine pH 5.0 (4.5-8.0) Ur Specific Orient 1.020 (1.000-1.035) Urine Protein Negative (Negative) Urine Glucose (UA) Negative (Negative) g/dL Urine Ketones Negative (NEGATIVE) Urine Occult Blood Negative (Negative) Urine Nitrate Negative (Negative) Urine Bilirubin Negative (NEGATIVE) Urine Urobilinogen 1.0 (0.2) E.U./dL Ur Leukocyte Esterase Negative (NEGATIVE) Urine RBC None seen (0-5/HPF) Urine WBC None seen (0-5/HPF) Ur Squamous Epith Cells 0-1 /hpf (0-5/HPF) Urine Bacteria None seen (None) Ur Culture Indicated? Cult not indicated U Opiates 300ng/mL cut Negative (Negative) Ur Oxycodone Screen Negative (Negative) Urine Methadone Screen Negative (Negative) Ur Barbiturates Screen Negative (Negative) U Tricyclic Antidepress Negative (Negative) Ur Phencyclidine Scrn Negative (Negative) Ur Amphetamines Screen Negative (Negative) U Methamphetamines Scrn Negative (Negative) Ur MDMA Scrn (Ecstasy) Negative (Negative) U Benzodiazepines Scrn Negative (Negative) Urine Cocaine Screen Negative (Negative) U Marijuana (THC) Screen Negative (Negative) SARS-CoV-2 (PCR) (Negative) 01/22/21 Range/Units 02:04 WBC (4.5-11.0) X10^3/uL RBC (4.0-5.2) X10^6/uL Hgb (12.0-16.0) g/dL Hct (36-46) % MCV (80-100) fL MCH (26-34) PG MCHC (30-36) % RDW (11.6-14.8) % Plt Count (150-400) X10^3/uL Neut % (Auto) (50-75) % Lymph % (Auto) (25-40) % [place] % (Auto) (3-14) % Eos % (Auto) (2-4) % Baso % (Auto) (0-2) % Neut # (Auto) (7759-1627) /uL Lymph # (Auto) (4113-3871) /uL [place] # (Auto) (0-900) /uL Eos # (Auto) (0-450) /uL Baso # (Auto) (0-100) /uL PT (10.1-12.7) SECONDS INR (0.9-1.3) APTT (26.4-36.2) SECONDS ABG pH 7.37 (7.35-7.45) ABG pCO2 57.1 H (35-45) mmHg ABG pO2 79 L (80-100) mmHg ABG HCO3 33 H (22-26) mmol/L ABG Total CO2 35 H (21-31) mmol/L ABG O2 Saturation 95 (95-100) % ABG Base Excess 8.0 H (-2-2) mmol/L FiO2 28 Sodium (137-145) mmol/L Potassium (3.4-5.1) mmol/L Chloride (98-107) mmol/L Carbon Dioxide (22-32) mmol/L BUN (7-17) mg/dL Creatinine (0.52-1.04) mg/dL Estimated GFR (>60) mL/min BUN/Creatinine Ratio (6-22) Glucose (80-110) mg/dL Lactate (0.7-2.1) mmol/L Calcium (8.4-10.2) mg/dL Magnesium (1.6-2.3) mg/dL Total Creatine Kinase (30-135) U/L CK-MB (CK-2) CK-MB (CK-2) Rel Index Troponin I (0.01-0.034) ng/mL NT-Pro-B Natriuret Pep (<125) pg/mL Urine Color Urine Appearance Urine pH (4.5-8.0) Ur Specific [place] (1.000-1.035) Urine Protein (Negative) Urine Glucose (UA) (Negative) g/dL Urine Ketones (NEGATIVE) Urine Occult Blood (Negative) Urine Nitrate (Negative) Urine Bilirubin (NEGATIVE) Urine Urobilinogen (0.2) E.U./dL Ur Leukocyte Esterase (NEGATIVE) Urine RBC (0-5/HPF) Urine WBC (0-5/HPF) Ur Squamous Epith Cells (0-5/HPF) Urine Bacteria (None) Ur Culture Indicated? U Opiates 300ng/mL cut (Negative) Ur Oxycodone Screen (Negative) Urine Methadone Screen (Negative) Ur Barbiturates Screen (Negative) U Tricyclic Antidepress (Negative) Ur Phencyclidine Scrn (Negative) Ur Amphetamines Screen (Negative) U Methamphetamines Scrn (Negative) Ur MDMA Scrn (Ecstasy) (Negative) U Benzodiazepines Scrn (Negative) Urine Cocaine Screen (Negative) U Marijuana (THC) Screen (Negative) SARS-CoV-2 (PCR) (Negative) Imaging Data Chest x-ray: Radiologist's Impression: Patient is tilted rate limiting assessment. Was suboptimal inspiratory effort but appears to be bilateral perihilar opacities secondary to atelectasis and/or pneumonitis and or fluid overload. Heart size is difficult to assess. No pneumothorax or large pericardial effusion. No acute osseous abnormalities. CT scan - head: Radiologist's Impression: No acute intracranial process identified. Report faxed from [facility]. ECG Data Attestation: I personally reviewed and interpreted this ECG as follows: Prior ECG tracings: available for review Interpretation: Sinus rhythm rate of 78 VA 196 QRS of 98 QTC 440. No acute changes with a prior EKG from 02/12/2019 which appears similar. MDM Narrative Medical decision making narrative: We do not have CT available with altered mental status in a [address] Head CT seems prudent. Patient's ABG was repeated as she has had prior ABG showing acidosis and elevated CO2 and this appears consistent with patients priors today she is more lethargic or sleepy but on repeated checks has improved mentation with neurologic changes appreciated. Repeat ABG shows a slight improvement with no increasing elevation in her CO2 or increase in her acidosis. According to her old chart has required 2-4 L in the past and is not requiring more than normal. Patient does not appear to be anticoagulated any longer according to her med list from her facility. Her hemoglobin today is 11 in April it was 16 but in January of 2019 it was regularly 10. No leukocytosis. No with leftward shift. Patient's PTT is elevated but INR is 1.3. CMP shows a very stable mild hyponatremia, CO2 is elevated 36 consistent with priors with a BUN of 23 and a normal renal function. Glucose is 121. Troponin is negative and BNP is 281. UA is negative with no signs of infection. Rapid drugs screen is negative. Negative covid. Patient's mentations has improved with out any intervention than O2, patient states they woke her up in the middle of the night and that now she is more awake because it is a more appropriate hour. She appears alert and appropriate here at this time with no obvious findings, she does not have any medications on her facility list that would likely cause her to be altered. Plan to discharge back to her [facility], patient signed out to Dr. Avalos while awaiting her transportation back home. <Davy Avalos, DO - Last Filed: 01/22/21 08:52> Lab Data Labs: Lab Results 01/21/21 01/21/21 01/21/21 Range/Units 23:15 23:15 23:15 WBC 8.3 (4.5-11.0) X10^3/uL RBC 4.09 (4.0-5.2) X10^6/uL Hgb 11.1 L (12.0-16.0) g/dL Hct 35.2 L (36-46) % MCV 86.0 (80-100) fL MCH 27.0 (26-34) PG MCHC 31.4 (30-36) % RDW 17.2 H (11.6-14.8) % Plt Count 375 (150-400) X10^3/uL Neut % (Auto) 66.2 (50-75) % Lymph % (Auto) 20.5 L (25-40) % [place] % (Auto) 11.1 (3-14) % Eos % (Auto) 1.2 L (2-4) % Baso % (Auto) 1.0 (0-2) % Neut # (Auto) 5500 (6495-3068) /uL Lymph # (Auto) 1700 (1252-4356) /uL [place] # (Auto) 900 (0-900) /uL Eos # (Auto) 100 (0-450) /uL Baso # (Auto) 100 (0-100) /uL PT (10.1-12.7) SECONDS INR (0.9-1.3) APTT (26.4-36.2) SECONDS ABG pH (7.35-7.45) ABG pCO2 (35-45) mmHg ABG pO2 (80-100) mmHg ABG HCO3 (22-26) mmol/L ABG Total CO2 (21-31) mmol/L ABG O2 Saturation (95-100) % ABG Base Excess (-2-2) mmol/L FiO2 Sodium 136 L (137-145) mmol/L Potassium 4.2 (3.4-5.1) mmol/L Chloride 99 (98-107) mmol/L Carbon Dioxide 36 H (22-32) mmol/L BUN 23 H (7-17) mg/dL Creatinine 0.68 (0.52-1.04) mg/dL Estimated GFR > 60.0 (>60) mL/min BUN/Creatinine Ratio 33.8 H (6-22) Glucose 121 H (80-110) mg/dL Lactate 0.8 (0.7-2.1) mmol/L Calcium 9.0 (8.4-10.2) mg/dL Magnesium 2.1 (1.6-2.3) mg/dL Total Creatine Kinase 29 L (30-135) U/L CK-MB (CK-2) TNP CK-MB (CK-2) Rel Index TNP Troponin I < 0.012 (0.01-0.034) ng/mL NT-Pro-B Natriuret Pep (<125) pg/mL Urine Color Urine Appearance Urine pH (4.5-8.0) Ur Specific [place] (1.000-1.035) Urine Protein (Negative) Urine Glucose (UA) (Negative) g/dL Urine Ketones (NEGATIVE) Urine Occult Blood (Negative) Urine Nitrate (Negative) Urine Bilirubin (NEGATIVE) Urine Urobilinogen (0.2) E.U./dL Ur Leukocyte Esterase (NEGATIVE) Urine RBC (0-5/HPF) Urine WBC (0-5/HPF) Ur Squamous Epith Cells (0-5/HPF) Urine Bacteria (None) Ur Culture Indicated? U Opiates 300ng/mL cut (Negative) Ur Oxycodone Screen (Negative) Urine Methadone Screen (Negative) Ur Barbiturates Screen (Negative) U Tricyclic Antidepress (Negative) Ur Phencyclidine Scrn (Negative) Ur Amphetamines Screen (Negative) U Methamphetamines Scrn (Negative) Ur MDMA Scrn (Ecstasy) (Negative) U Benzodiazepines Scrn (Negative) Urine Cocaine Screen (Negative) U Marijuana (THC) Screen (Negative) SARS-CoV-2 (PCR) (Negative) 01/21/21 01/21/21 01/22/21 Range/Units 23:15 23:15 00:31 WBC (4.5-11.0) X10^3/uL RBC (4.0-5.2) X10^6/uL Hgb (12.0-16.0) g/dL Hct (36-46) % MCV (80-100) fL MCH (26-34) PG MCHC (30-36) % RDW (11.6-14.8) % Plt Count (150-400) X10^3/uL Neut % (Auto) (50-75) % Lymph % (Auto) (25-40) % [place] % (Auto) (3-14) % Eos % (Auto) (2-4) % Baso % (Auto) (0-2) % Neut # (Auto) (7159-0639) /uL Lymph # (Auto) (1613-5716) /uL [place] # (Auto) (0-900) /uL Eos # (Auto) (0-450) /uL Baso # (Auto) (0-100) /uL PT 15.0 H (10.1-12.7) SECONDS INR 1.3 (0.9-1.3) APTT 41 H D (26.4-36.2) SECONDS ABG pH (7.35-7.45) ABG pCO2 (35-45) mmHg ABG pO2 (80-100) mmHg ABG HCO3 (22-26) mmol/L ABG Total CO2 (21-31) mmol/L ABG O2 Saturation (95-100) % ABG Base Excess (-2-2) mmol/L FiO2 Sodium (137-145) mmol/L Potassium (3.4-5.1) mmol/L Chloride (98-107) mmol/L Carbon Dioxide (22-32) mmol/L BUN (7-17) mg/dL Creatinine (0.52-1.04) mg/dL Estimated GFR (>60) mL/min BUN/Creatinine Ratio (6-22) Glucose (80-110) mg/dL Lactate (0.7-2.1) mmol/L Calcium (8.4-10.2) mg/dL Magnesium (1.6-2.3) mg/dL Total Creatine Kinase (30-135) U/L CK-MB (CK-2) CK-MB (CK-2) Rel Index Troponin I (0.01-0.034) ng/mL NT-Pro-B Natriuret Pep 281 H (<125) pg/mL Urine Color Urine Appearance Urine pH (4.5-8.0) Ur Specific [place] (1.000-1.035) Urine Protein (Negative) Urine Glucose (UA) (Negative) g/dL Urine Ketones (NEGATIVE) Urine Occult Blood (Negative) Urine Nitrate (Negative) Urine Bilirubin (NEGATIVE) Urine Urobilinogen (0.2) E.U./dL Ur Leukocyte Esterase (NEGATIVE) Urine RBC (0-5/HPF) Urine WBC (0-5/HPF) Ur Squamous Epith Cells (0-5/HPF) Urine Bacteria (None) Ur Culture Indicated? U Opiates 300ng/mL cut (Negative) Ur Oxycodone Screen (Negative) Urine Methadone Screen (Negative) Ur Barbiturates Screen (Negative) U Tricyclic Antidepress (Negative) Ur Phencyclidine Scrn (Negative) Ur Amphetamines Screen (Negative) U Methamphetamines Scrn (Negative) Ur MDMA Scrn (Ecstasy) (Negative) U Benzodiazepines Scrn (Negative) Urine Cocaine Screen (Negative) U Marijuana (THC) Screen (Negative) SARS-CoV-2 (PCR) Negative (Negative) 01/22/21 01/22/21 01/22/21 Range/Units 00:41 00:55 00:55 WBC (4.5-11.0) X10^3/uL RBC (4.0-5.2) X10^6/uL Hgb (12.0-16.0) g/dL Hct (36-46) % MCV (80-100) fL MCH (26-34) PG MCHC (30-36) % RDW (11.6-14.8) % Plt Count (150-400) X10^3/uL Neut % (Auto) (50-75) % Lymph % (Auto) (25-40) % [place] % (Auto) (3-14) % Eos % (Auto) (2-4) % Baso % (Auto) (0-2) % Neut # (Auto) (5051-7452) /uL Lymph # (Auto) (1297-7261) /uL [place] # (Auto) (0-900) /uL Eos # (Auto) (0-450) /uL Baso # (Auto) (0-100) /uL PT (10.1-12.7) SECONDS INR (0.9-1.3) APTT (26.4-36.2) SECONDS ABG pH 7.34 L (7.35-7.45) ABG pCO2 63.4 H* (35-45) mmHg ABG pO2 77 L (80-100) mmHg ABG HCO3 34 H (22-26) mmol/L ABG Total CO2 36 H (21-31) mmol/L ABG O2 Saturation 94 L (95-100) % ABG Base Excess 8.0 H (-2-2) mmol/L FiO2 28 Sodium (137-145) mmol/L Potassium (3.4-5.1) mmol/L Chloride (98-107) mmol/L Carbon Dioxide (22-32) mmol/L BUN (7-17) mg/dL Creatinine (0.52-1.04) mg/dL Estimated GFR (>60) mL/min BUN/Creatinine Ratio (6-22) Glucose (80-110) mg/dL Lactate (0.7-2.1) mmol/L Calcium (8.4-10.2) mg/dL Magnesium (1.6-2.3) mg/dL Total Creatine Kinase (30-135) U/L CK-MB (CK-2) CK-MB (CK-2) Rel Index Troponin I (0.01-0.034) ng/mL NT-Pro-B Natriuret Pep (<125) pg/mL Urine Color Yellow Urine Appearance Clear Urine pH 5.0 (4.5-8.0) Ur Specific [place] 1.020 (1.000-1.035) Urine Protein Negative (Negative) Urine Glucose (UA) Negative (Negative) g/dL Urine Ketones Negative (NEGATIVE) Urine Occult Blood Negative (Negative) Urine Nitrate Negative (Negative) Urine Bilirubin Negative (NEGATIVE) Urine Urobilinogen 1.0 (0.2) E.U./dL Ur Leukocyte Esterase Negative (NEGATIVE) Urine RBC None seen (0-5/HPF) Urine WBC None seen (0-5/HPF) Ur Squamous Epith Cells 0-1 /hpf (0-5/HPF) Urine Bacteria None seen (None) Ur Culture Indicated? Cult not indicated U Opiates 300ng/mL cut Negative (Negative) Ur Oxycodone Screen Negative (Negative) Urine Methadone Screen Negative (Negative) Ur Barbiturates Screen Negative (Negative) U Tricyclic Antidepress Negative (Negative) Ur Phencyclidine Scrn Negative (Negative) Ur Amphetamines Screen Negative (Negative) U Methamphetamines Scrn Negative (Negative) Ur MDMA Scrn (Ecstasy) Negative (Negative) U Benzodiazepines Scrn Negative (Negative) Urine Cocaine Screen Negative (Negative) U Marijuana (THC) Screen Negative (Negative) SARS-CoV-2 (PCR) (Negative) 01/22/21 Range/Units 02:04 WBC (4.5-11.0) X10^3/uL RBC (4.0-5.2) X10^6/uL Hgb (12.0-16.0) g/dL Hct (36-46) % MCV (80-100) fL MCH (26-34) PG MCHC (30-36) % RDW (11.6-14.8) % Plt Count (150-400) X10^3/uL Neut % (Auto) (50-75) % Lymph % (Auto) (25-40) % [place] % (Auto) (3-14) % Eos % (Auto) (2-4) % Baso % (Auto) (0-2) % Neut # (Auto) (1674-8438) /uL Lymph # (Auto) (2554-2996) /uL [place] # (Auto) (0-900) /uL Eos # (Auto) (0-450) /uL Baso # (Auto) (0-100) /uL PT (10.1-12.7) SECONDS INR (0.9-1.3) APTT (26.4-36.2) SECONDS ABG pH 7.37 (7.35-7.45) ABG pCO2 57.1 H (35-45) mmHg ABG pO2 79 L (80-100) mmHg ABG HCO3 33 H (22-26) mmol/L ABG Total CO2 35 H (21-31) mmol/L ABG O2 Saturation 95 (95-100) % ABG Base Excess 8.0 H (-2-2) mmol/L FiO2 28 Sodium (137-145) mmol/L Potassium (3.4-5.1) mmol/L Chloride (98-107) mmol/L Carbon Dioxide (22-32) mmol/L BUN (7-17) mg/dL Creatinine (0.52-1.04) mg/dL Estimated GFR (>60) mL/min BUN/Creatinine Ratio (6-22) Glucose (80-110) mg/dL Lactate (0.7-2.1) mmol/L Calcium (8.4-10.2) mg/dL Magnesium (1.6-2.3) mg/dL Total Creatine Kinase (30-135) U/L CK-MB (CK-2) CK-MB (CK-2) Rel Index Troponin I (0.01-0.034) ng/mL NT-Pro-B Natriuret Pep (<125) pg/mL Urine Color Urine Appearance Urine pH (4.5-8.0) Ur Specific [place] (1.000-1.035) Urine Protein (Negative) Urine Glucose (UA) (Negative) g/dL Urine Ketones (NEGATIVE) Urine Occult Blood (Negative) Urine Nitrate (Negative) Urine Bilirubin (NEGATIVE) Urine Urobilinogen (0.2) E.U./dL Ur Leukocyte Esterase (NEGATIVE) Urine RBC (0-5/HPF) Urine WBC (0-5/HPF) Ur Squamous Epith Cells (0-5/HPF) Urine Bacteria (None) Ur Culture Indicated? U Opiates 300ng/mL cut (Negative) Ur Oxycodone Screen (Negative) Urine Methadone Screen (Negative) Ur Barbiturates Screen (Negative) U Tricyclic Antidepress (Negative) Ur Phencyclidine Scrn (Negative) Ur Amphetamines Screen (Negative) U Methamphetamines Scrn (Negative) Ur MDMA Scrn (Ecstasy) (Negative) U Benzodiazepines Scrn (Negative) Urine Cocaine Screen (Negative) U Marijuana (THC) Screen (Negative) SARS-CoV-2 (PCR) (Negative) MDM Narrative Medical decision making narrative: Dr avalos: No issues while waiting for transport. She ate breakfast without problems. Transport is here and well transport back home. Discharge Plan Departure Patient Disposition: Home Clinical Impression: Altered mental status Activity Restrictions/Additional Instructions: Follow up with your physician for recheck. I would continue your home medications as prescribed including your home oxygen as needed as described in your medication list. Your labs and imaging do not show any major changes today. Please return for new or worsening symptoms, new confusion, recurrent altered mental status, severe headaches, new vision changes, difficulty with speech, new chest pain, shortness of breath, persistent vomiting, new weakness, loss of sensation or other new or concerning symptoms. Prescriptions: No Action metformin [Glucophage] 500 mg tablet 500 mg PO BID RF: 0 oxybutynin chloride 10 mg tablet extended release 24hr 10 mg PO DAILY RF: 0 ursodiol 300 mg capsule 300 mg PO BID RF: 0 aspirin 81 mg Tablet,Delayed Release (Dr/Ec) 81 mg PO DAILY RF: 0 digoxin [Digitek] 125 mcg Tablet 0.125 mg PO QPM RF: 0 warfarin 5 mg tablet 4 mg PO QPM RF: 0 ascorbic acid (vitamin C) 500 mg Tablet See Rx Instructions .ROUTE .COMPLEX RF: 0 cetirizine [Allergy Relief (cetirizine)] 10 mg Tablet 1 tab PO DAILY RF: 0 ferrous sulfate 325 mg (65 mg iron) Tablet 0.5 tab PO TID RF: 0 sennosides [senna] 8.6 mg Tablet 17.2 mg PO BEDTIME PRN (Reason: Constipation) Qty: 30 RF: 0 ursodiol 300 mg Capsule 300 mg PO BID Qty: 30 RF: 0 warfarin [Coumadin] 5 mg Tablet 5 mg PO 1700 Qty: 30 RF: 0 losartan 25 mg Tablet 25 mg PO 2100 Qty: 30 RF: 0 diltiazem HCl 120 mg Capsule,Extended Release 24hr 120 mg PO DAILY Qty: 30 RF: 0 oxybutynin chloride 5 mg Tablet 5 mg PO BID Qty: 30 RF: 0 potassium chloride [Klor-Con M10] 10 mEq Tablet,Er Particles/Crystals 10 meq PO DAILYCC Qty: 30 RF: 0 hydrocodone-acetaminophen 7.5-325 mg tablet 1 tab PO Q6-8H PRN (Reason: pain) Qty: 30 RF: 0 triamcinolone acetonide 0.1 % Ointment 1 applic TOPICAL BID RF: 0 gabapentin 300 mg Capsule 600 mg PO QID RF: 0 Combivent Respimat 20-100 mcg/actuation Mist 1 puff Inhalation Q8H RF: 0 atorvastatin 80 mg tablet 80 mg PO BEDTIME RF: 0 torsemide 20 mg tablet 1 tab PO BID RF: 0 hydrocodone-acetaminophen 7.5-325 mg tablet 1 tab PO Q8H PRN (Reason: Pain, Moderate) RF: 0 potassium chloride 10 mEq capsule, extended release 10 meq PO DAILY Qty: 30 RF: 1 Referrals: Johnny Saini MD [Primary Care Provider] -
--- NOTE | 2021-01-22 00:31 | DI.RAD.S_ITS ---
PROCEDURE: XR CHEST 1V INDICATIONS: altered mental status, low O2 TECHNIQUE: One view of the chest was acquired. COMPARISON: [facility], CT, CT HEAD WITHOUT CONTRAST, 01/22/2021, 3:40. [facility], CR, XR CHEST 1V, 02/12/2019, 22:48. [facility], CR, XR CHEST 1 VIEW, 12/31/2019, 15:38. FINDINGS: Surgical changes and devices: None. Lungs and pleura: Minimal interstitial prominence can be seen. No pleural effusions or pneumothorax. Mediastinum: The cardiac contours are believed to be mildly enlarged. The aorta demonstrates calcification and tortuosity. Bones and chest wall: No suspicious bony lesions. Overlying soft tissues appear unremarkable. IMPRESSION: Likely mild cardiomegaly with interstitial prominence. Please consider early CHF. Note: No significant discrepancy from the preliminary report. Dictated by: Saulo Tyson M.D. on 01/22/2021 at 8:07 Approved by: Saulo Tyson M.D. on 01/22/2021 at 8:09
[2021-01-22 00:43] LABS: INR 1.3 (0.9-1.3)
[2021-01-22 00:45] LABS: PTT Partial Thromboplastin Tim 41 SECONDS (26.4-36.2)
[2021-01-22 00:51] LABS: pH ABG 7.34 (7.35-7.45)
[2021-01-22 00:52] LABS: Fractionated Inspired Oxygen 28; HCO3 ABG 34 mmol/L (22-26); Oxygen Saturation ABG 94 % (95-100); PCO2 ABG 63.4 mmHg (35-45); PO2 ABG 77 mmHg (80-100); TCO2 ABG 36 mmol/L (21-31)
[2021-01-22 00:56] LABS: NT-proBNP (BNP-Adult 18+) 281 pg/mL (<125)
[2021-01-22 00:58] LABS: COVID19 -Nasal RAPID Negative (Negative)
[2021-01-22 01:01] LABS: Appearance Urine UA CLEAR; Bacteria Urine None Seen; Bilirubin Urine UA NEGATIVE (NEGATIVE); Color Urine UA YELLOW; Glucose Urine UA NEGATIVE (Negative); Ketones Urine UA NEGATIVE (NEGATIVE); Leukocyte Esterase Urine UA NEGATIVE (NEGATIVE); Nitrite Urine UA NEGATIVE (Negative); Occult Blood Urine UA NEGATIVE (Negative); Protein Urine UA NEGATIVE (Negative); RBC Urine None Seen (0-5/HPF); WBC Urine None Seen (0-5/HPF)
[2021-01-22 01:07] LABS: Ur Creatinine 20 (Normal); Urine pH 5 (Normal)
[2021-01-22 01:08] LABS: UR Morphine/Opiate cutoff 300 Negative (Negative); Urine Amphetamines Negative (Negative); Urine Barbiturates Negative (Negative); Urine Benzodiazepines Negative (Negative); Urine Cocaine Negative (Negative); Urine MDMA Negative (Negative); Urine Methadone Negative (Negative); Urine Methamphetamines Negative (Negative); Urine Oxycodone Negative (Negative); Urine Phencyclidine Negative (Negative); Urine Tetrahydrocannabinol Negative (Negative); Urine Tricyclic Antidepressant Negative (Negative)
[2021-01-22 01:26] LABS: Squamous Epithelial Cell Urine 0-1 /HPF (0-5/HPF)
[2021-01-22 01:27] LABS: Culture Indicated Urine Cult Not Indicated
[2021-01-22 02:14] LABS: Fractionated Inspired Oxygen 28; HCO3 ABG 33 mmol/L (22-26); Oxygen Saturation ABG 95 % (95-100); PCO2 ABG 57.1 mmHg (35-45); PO2 ABG 79 mmHg (80-100); TCO2 ABG 35 mmol/L (21-31); pH ABG 7.37 (7.35-7.45)
--- NOTE | 2021-01-22 03:05 | PC.NURSE ---
Pt left at 0304 with [facility] to go to [facility] for a CT, [facility] CT is down.
--- NOTE | 2021-01-22 04:29 | PC.NURSE ---
Pt has returned from [facility]. No issues reported by ELENA
[2021-01-22] MEDS: ACETAMINOPHEN 325 MG TABLET 975 MG PO (05:08)
--- NOTE | 2021-01-22 05:14 | PC.NURSE ---
Attempted to contact Joseline NEGRETE, left message.
--- NOTE | 2021-01-22 05:32 | PC.NURSE ---
Gave report to CHRISTY Torres. BLS due to pick at 8am.
--- NOTE | 2021-01-22 09:26 | PC.NURSE ---
cathater removed prior to discharge. Patient tolerated well. 5ooml output prior to removing meza.
[2021-01-22 09:27] VITALS: BP 133/82; PULSE 75; RESP 22
--- NOTE | 2021-01-22 14:56 | PC.NURSE ---
Received call from Joseline (Nicky PAVON) requesting provider summary from pt visit 01/21/21. Faxed to number [phone].
== END 2021-01-22 09:05 | disposition home or self-care (01) ==
PROVIDERS: Emergency Medicine; Emergency Provider Emergency Medicine; PCP Internal Medicine
DX: R41.82 Altered mental status, unspecified (principal); R09.02 Hypoxemia; F03.90 Unspecified dementia, unspecified severity, without behavioral disturbance, psychotic disturbance, mood disturbance, and anxiety; Z79.82 Long term (current) use of aspirin; Z79.01 Long term (current) use of anticoagulants; E66.9 Obesity, unspecified; Z68.42 Body mass index [BMI] 45.0-49.9, adult; Z20.822 Contact with and (suspected) exposure to COVID-19
CPT/HCPCS: 36415; 36600; 51701; 51705; 71045; 80048; 80305; 81001; 82550; 82805; 83605; 83735; 83880; 84484; 85025; 85610; 85730; 87040; 87635; 99284; C9803

== ENCOUNTER → 2021-02-08 08:44 | Outpatient (ROUT) | payer MEDICARE, MEDICAID, SELFPAY ==
[2018-06-18 14:20] VITALS: PULSE 68; RESP 23; O2SAT 95
[2019-02-13 01:35] VITALS: BMI 48.7
[2021-02-08 09:19] LABS: Add Manual Diff / Slide Review NO; Basophils Absolute Auto 100 /uL (0-100); Basophils Percent Auto 1.1 % (0-2); Eosinophils Absolute Auto 300 /uL (0-450); Eosinophils Percent Auto 3.5 % (2-4); Hematocrit 34.5 % (36-46); Hemoglobin 11.1 g/dL (12.0-16.0); Lymphocytes Absolute Auto 1100 /uL (1100-4500); Lymphocytes Percent Auto 15.3 % (25-40); Mean Corpuscular HGB Conc 32.3 % (30-36); Mean Corpuscular Hemoglobin 27.9 PG (26-34); Mean Corpuscular Volume 86.4 fL (80-100); Monocytes Absolute Auto 800 /uL (0-900); Monocytes Percent Auto 11.1 % (3-14); Neutrophils Absolute Auto 5000 /uL (1500-7000); Platelet Count 329 X10^3/uL (150-400); Red Blood Cell Count 3.99 X10^6/uL (4.0-5.2); Red Cell Distribution Width 17.9 % (11.6-14.8); White Blood Cell Count 7.3 X10^3/uL (4.5-11.0)
[2021-02-08 09:32] LABS: Hemoglobin A1C% w Est Avg Glu 5.9 % (4.0-6.0)
[2021-02-08 09:43] LABS: Alanine Aminotransferase 15 IU/L (<35); Albumin 3.4 g/dL (3.5-5.0); Albumin Globulin Ratio 0.9 (1.0-2.8); Alkaline Phosphatase 69 U/L (38-126); Aspartate Aminotransferase 21 IU/L (14-36); BUN Creatinine Ratio 48.9 (6-22); Bilirubin Total 0.2 mg/dL (0.2-1.3); Blood Urea Nitrogen 23 mg/dL (7-17); Calcium 8.6 mg/dL (8.4-10.2); Carbon Dioxide 30 mmol/L (22-32); Chloride 102 mmol/L (98-107); Cholesterol 111 mg/dL (140-199); Estimated Glomerular Filt Rate > 60.0 mL/min (>60); Globulin 3.6 g/dL (1.7-4.1); Glucose 114 mg/dL (80-110); HDL Cholesterol 39 mg/dL (40-60); HEMOLYSIS 17 (0-50); LDL Cholesterol Calculated 54 mg/dL (<100); Potassium 4.2 mmol/L (3.4-5.1); Sodium 137 mmol/L (137-145); Triglycerides 88 mg/dL (35-150)
== END ==
PROVIDERS: PCP Internal Medicine; Visit Provider Nurse Practitioner Gerontology
DX: E11.9 Type 2 diabetes mellitus without complications (principal); I10 Essential (primary) hypertension; E78.5 Hyperlipidemia, unspecified
CPT/HCPCS: 36415; 80053; 80061; 83036; 85025

== ENCOUNTER → 2021-03-01 10:15 | Outpatient (ROUT) | payer MEDICARE, MEDICAID, SELFPAY ==
[2018-06-18 14:20] VITALS: PULSE 68; RESP 23; O2SAT 95
[2019-02-13 01:35] VITALS: BMI 48.7
[2021-03-01 15:45] LABS: Vitamin B12 490 pg/mL (239-931)
== END ==
PROVIDERS: PCP Internal Medicine; Visit Provider Internal Medicine
DX: G47.51 Confusional arousals (principal)
CPT/HCPCS: 36415; 82607

== ENCOUNTER 2021-03-12 03:00 | Emergency (ER) | payer MEDICARE, MEDICAID, SELFPAY ==
[2018-06-18 14:20] VITALS: PULSE 68; RESP 23; O2SAT 95
[2019-02-13 01:35] VITALS: BMI 48.7
[2021-03-12] VITALS (62 sets, daily range): BP systolic 76–138; BP diastolic 43–71; PULSE 73–101; RESP 6–42; TEMP 36.8; O2SAT 81–98
--- NOTE | 2021-03-12 03:12 | DI.RAD.S_ITS ---
PROCEDURE: XR CHEST 1V INDICATIONS: dyspnea TECHNIQUE: One view of the chest was acquired. COMPARISON: [facility], CR, XR CHEST 1V, 01/22/2021, 0:59. FINDINGS: Surgical changes and devices: Overlying EKG wires. Lungs and pleura: Deviation of the trachea to the right. Marked volume loss on the right with near complete opacification of the right hemithorax with only a small portion of aerated lung along the apex. No pneumothorax, focal consolidation, or pleural effusion on the left. There is likely passive venous congestion on the left. Mediastinum: Limited evaluation of the cardiac silhouette given mediastinal shift to the right. Bones and chest wall: No suspicious bony lesions. Degenerative changes of the shoulders are incompletely evaluated. Overlying soft tissues appear unremarkable. IMPRESSION: Near complete collapse of the right lung atelectasis with mediastinal shift to the right. Venous congestion of the aerated left lung which is otherwise clear. Agree with preliminary report. Dictated by: on 03/12/2021 at 6:05 Approved by: on 03/12/2021 at 6:08
--- NOTE | 2021-03-12 03:18 | ED_ITS ---
HPI - General Adult <Patrica Rudd MD - Last Filed: 03/14/21 09:06> General Chief complaint: Shortness of Breath/Dyspnea Stated complaint: Lethargic/Low 02 Time Seen by Provider: 03/12/21 03:00 History of Present Illness HPI narrative: 70-year-old woman living at [facility] with a history of chronic hypoxic and hypercapnic respiratory failure on home oxygen up to 2-4 L nasal cannula, morbid obesity, COPD, diabetes, chronic pain with o pioid pain management, atrial fibrillation not currently anticoagulated, mild dementia. She has had multiple ER visits most recently to whom months ago with almost the exact same presentation. Assisted living facility staff called [phone] when they found her increasingly confused with oxygen saturations in the mid 70 range. Patient arouses to stimuli and can answer some questions. She is speaking in 4-5 word sentences and knows that she is in the hospital. She is leaning toward the right side while sitting however she does not demonstrate significant weakness in the right upper or lower extremities. She states that she has not been coughing does not complain right now of being short of breath states she has not had any chest pain she is significantly lethargic and remainder of review of systems is difficult to obtain. Related Data Home Medications Medication Instructions Recorded Confirmed aspirin 81 mg PO DAILY 04/12/18 02/13/19 metformin [Glucophage] 500 mg PO BID 04/12/18 02/13/19 oxybutynin chloride 10 mg PO DAILY 04/12/18 02/13/19 ursodiol 300 mg PO BID 04/12/18 02/13/19 digoxin [Digitek] 0.125 mg PO QPM 06/12/18 02/13/19 warfarin 4 mg PO QPM 06/17/18 02/13/19 Combivent Respimat 1 puff INHALATION Q8H 09/04/18 02/13/19 gabapentin 600 mg PO QID 09/04/18 02/13/19 triamcinolone acetonide 1 applic TOPICAL BID 09/04/18 02/13/19 atorvastatin 80 mg PO BEDTIME 09/25/18 02/13/19 hydrocodone-acetaminophen 1 tab PO Q8H PRN 09/25/18 02/13/19 torsemide 1 tab PO BID 09/25/18 02/13/19 ascorbic acid (vitamin C) See Rx Instructions .ROUTE .COMPLEX 02/13/19 02/13/19 cetirizine [Allergy Relief 1 tab PO DAILY 02/13/19 02/13/19 (cetirizine)] ferrous sulfate 0.5 tab PO TID 02/13/19 02/13/19 Previous Rx's Medication Instructions Recorded potassium chloride 10 meq PO DAILY #30 cap 09/25/18 diltiazem HCl 120 mg PO DAILY #30 cap 02/20/19 hydrocodone-acetaminophen 1 tab PO Q6-8H PRN #30 tab 02/20/19 losartan 25 mg PO 2100 #30 tab 02/20/19 oxybutynin chloride 5 mg PO BID #30 tab 02/20/19 potassium chloride [Klor-Con M10] 10 meq PO DAILYCC #30 tab 02/20/19 sennosides [senna] 17.2 mg PO BEDTIME PRN #30 tab 02/20/19 ursodiol 300 mg PO BID #30 cap 02/20/19 warfarin [Coumadin] 5 mg PO 1700 #30 tab 02/20/19 Allergies Allergy/AdvReac Type Severity Reaction Status Date / Time captopril [CAPTOPRIL] Allergy Unknown Verified 09/25/18 14:09 nabumetone [NABUMETONE] Allergy Unknown Rash Verified 09/25/18 14:09 Review of Systems <Patrica Rudd MD - Last Filed: 03/14/21 09:06> Review of Systems ROS Unobtainable: Unobtainable due to mental status/LOC Patient History <Patrica Rudd MD - Last Filed: 03/14/21 09:06> Medical History (Updated 03/12/21 @ 05:49 by Patrica Rudd MD) Atrial fibrillation Cholelithiasis Chronic anticoagulation Chronic respiratory failure with hypoxia and hypercapnia Depression Diabetes Fracture of left ankle Hyperlipidemia Hypertension Hypertension Inguinal hernia Iron deficiency anemia Lumbar degenerative disc disease Morbid obesity Obesity Obesity hypoventilation syndrome Osteoarthritis Pneumococcal meningitis Prolapsed bladder Surgical History History of abdominoplasty History of gastric bypass Social History household members: none Smoking Status: Current every day smoker alcohol intake: former additional social history: lives alone Smoking Status: Current every day smoker tobacco type: cigarettes alcohol intake frequency: 0-2 drinks per day Substance Use Type: does not use Exam <Patrica Rudd MD - Last Filed: 03/14/21 09:06> Narrative Exam Narrative: General: Chronically ill-appearing in respiratory distress. Morbidly obese and consistently leaning to the right side to the point of falling over HEENT: Moist mucous membranes, normal sclera with reactive pupils, spontaneously producing sputum Neck: Unable to evaluate JVD secondary to body habitus, supple Respiratory: Lungs with diminished air sounds bilaterally, poor inspiratory effort and crackles in the bases bilaterally. I do not appreciate rhonchi. Cardiac: Iregular rate and rhythm, no murmurs no bruits Abdomen: Obese, Soft, nontender, good bowel tones, no flank pain Skin: Pale and dry, no rashes Neurologic: Clearly altered and lethargic, symmetrical facial movement, global weakness but symmetrical strength upper and lower extremities core body strength has her dramatically listing to the right side Extremities: No trauma, 1+ lower extremity edema only Psych: Altered without evidence of psychosis Initial Vital Signs Initial Vital Signs: Vital Signs Temperature 98.3 F 03/12/21 03:00 Pulse Rate 96 H 03/12/21 03:00 Respiratory Rate 23 03/12/21 03:00 Blood Pressure 120/55 L 03/12/21 03:00 Pulse Oximetry 87 L 03/12/21 03:00 <Tanai Wallis DO - Last Filed: 03/12/21 18:33> Initial Vital Signs Initial Vital Signs: Vital Signs Temperature 98.3 F 03/12/21 03:00 Pulse Rate 96 H 03/12/21 03:00 Respiratory Rate 23 03/12/21 03:00 Blood Pressure 120/55 L 03/12/21 03:00 Pulse Oximetry 87 L 03/12/21 03:00 Procedures <Patrica Rudd MD - Last Filed: 03/14/21 09:06> Intubation Time out performed: Yes sedative: Etomidate Mg Given: 20 paralytic: Succinylcholine Mg Given: 100 Laryngoscope: fiber optic video scope ET Tube Size: 8 ET Tube Uncuffed: No Tube Secured Depth (cm): 22 Tube Secured Location: lips Tube Placement Confirmation: Visualized tube passing through cords, Confirmation by capnometry and Chest Xray Patient Tolerated Procedure: Well Intubation Complications: none Course <Patrica Rudd MD - Last Filed: 03/14/21 09:06> Orders Ordered: Discontinued Medications Etomidate (Etomidate 2 Mg/Ml 10 Ml Vial) 20 mg IV NOW ONE Stop: 03/12/21 06:58 Last Admin: 03/12/21 06:40 Dose: 20 mg Documented by: ARSLAN Piperacillin Sod/Tazobactam (Sod 4.5 gm/ Sodium Chloride) 100 mls @ 200 mls/hr IV NOW ONE Stop: 03/12/21 04:17 Last Infusion: 03/12/21 05:25 Dose: 0 mls/hr Documented by: Admin: 03/12/21 04:45 Dose: 200 mls/hr Documented by: ROYCE Furosemide 120 mg/ Sodium (Chloride) 62 mls @ 124 mls/hr IV NOW ONE Stop: 03/12/21 04:17 Last Infusion: 03/12/21 05:25 Dose: 0 mls/hr Documented by: Admin: 03/12/21 04:45 Dose: 124 mls/hr Documented by: ROYCE Piperacillin Sod/Tazobactam (Sod 4.5 gm/ Sodium Chloride) 100 mls @ 200 mls/hr IV NOW ONE Stop: 03/12/21 04:30 Last Admin: 03/12/21 05:27 Dose: Not Given Documented by: ROYCE Propofol (Propofol) 1,000 mg in 100 mls @ 4.209 mls/hr IV TITRATE LORNA; Protocol Last Titration: 03/12/21 09:45 Dose: 7 mcg/kg/min, 5.893 mls/hr Documented by: Titration: 03/12/21 08:46 Dose: 7 mcg/kg/min, 5.893 mls/hr Documented by: Titration: 03/12/21 08:11 Dose: 6 mcg/kg/min, 5.051 mls/hr Documented by: Admin: 03/12/21 07:06 Dose: 5 mcg/kg/min, 4.209 mls/hr Documented by: ARSLAN Sodium Chloride (Normal Saline 0.9%) 1,000 mls @ 1,000 mls/hr IV BOLUS ONE Stop: 03/12/21 08:01 Last Infusion: 03/12/21 07:51 Dose: 0 mls/hr Documented by: Admin: 03/12/21 06:35 Dose: 1,000 mls/hr Documented by: ARSLAN Fentanyl 1,000 mcg/ Dextrose 250 mls @ 24.553 mls/hr IV TITRATE LORNA Last Infusion: 03/12/21 09:47 Dose: 0.7 mcg/kg/hr, 24.553 mls/hr Documented by: Admin: 03/12/21 07:59 Dose: 0.7 mcg/kg/hr, 24.553 mls/hr Documented by: DEMETRA Midazolam HCl (Midazolam 2 Mg/2 Ml Vial) 2 mg IV NOW ONE Stop: 03/12/21 07:17 Last Admin: 03/12/21 07:19 Dose: 2 mg Documented by: ARSLAN Midazolam HCl (Midazolam 2 Mg/2 Ml Vial) 2 mg IV NOW ONE Stop: 03/12/21 07:50 Propofol (Propofol 200 Mg/20 Ml Vial) 60 mg IV NOW ONE Stop: 03/12/21 07:00 Last Admin: 03/12/21 06:47 Dose: 60 mg Documented by: ARSLAN Propofol (Propofol 200 Mg/20 Ml Vial) 60 mg IV NOW ONE Stop: 03/12/21 07:00 Last Admin: 03/12/21 06:52 Dose: 60 mg Documented by: ARSLAN Succinylcholine Chloride (Succinylcholine 200 Mg/10 Ml Vial) 100 mg IV NOW ONE Stop: 03/12/21 06:59 Last Admin: 03/12/21 06:46 Dose: 100 mg Documented by: ARSLAN Vital Signs Vital signs: Vital Signs - 8 hr 03/12/21 03:00 03/12/21 03:04 03/12/21 03:05 Temperature 98.3 F Pulse Rate 96 H 101 H 97 H Respiratory Rate 23 25 H Blood Pressure 120/55 L 111/57 L Pulse Oximetry 87 L 88 L 89 L 03/12/21 03:30 03/12/21 03:31 03/12/21 04:00 Temperature Pulse Rate 98 H 97 H 91 H Respiratory Rate 27 H 25 H 17 Blood Pressure 111/57 L Pulse Oximetry 89 L 89 L 95 04/17/21 04:01 03/12/21 04:26 03/12/21 04:30 Temperature Pulse Rate 93 H 83 78 Respiratory Rate 20 27 H Blood Pressure 107/55 L 107/55 L 106/61 Pulse Oximetry 95 92 93 03/12/21 04:47 03/12/21 05:00 03/12/21 05:08 Temperature Pulse Rate 88 83 83 Respiratory Rate 6 L 9 L 8 L Blood Pressure 120/56 L 122/59 L Pulse Oximetry 96 92 92 03/12/21 05:30 03/12/21 05:47 03/12/21 06:00 Temperature Pulse Rate 84 77 Respiratory Rate 20 12 Blood Pressure 129/60 129/60 122/58 L Pulse Oximetry 94 92 03/12/21 06:30 03/12/21 06:31 03/12/21 06:38 Temperature Pulse Rate 81 75 81 Respiratory Rate 34 H 25 H 24 Blood Pressure 122/59 L 122/59 L 138/63 Pulse Oximetry 87 L 89 L 83 L 03/12/21 06:41 03/12/21 06:45 03/12/21 06:47 Temperature Pulse Rate 101 H 87 84 Respiratory Rate 29 H 26 H 25 H Blood Pressure 130/64 122/55 L Pulse Oximetry 81 L 89 L 03/12/21 06:51 03/12/21 06:56 03/12/21 06:58 Temperature Pulse Rate 89 85 87 Respiratory Rate 23 25 H 33 H Blood Pressure 114/71 77/44 L 80/43 L Pulse Oximetry 92 90 L 91 03/12/21 07:00 03/12/21 07:05 03/12/21 07:10 Temperature Pulse Rate 86 80 77 Respiratory Rate 40 H 29 H 42 H Blood Pressure 76/45 L 86/54 L 90/51 L Pulse Oximetry 90 L 93 96 03/12/21 07:15 03/12/21 07:20 03/12/21 07:25 Temperature Pulse Rate 73 74 78 Respiratory Rate 40 H 25 H 25 H Blood Pressure 86/51 L 90/53 L 92/50 L Pulse Oximetry 96 94 93 03/12/21 07:30 03/12/21 07:35 03/12/21 07:40 Temperature Pulse Rate 75 80 77 Respiratory Rate 25 H 27 H 25 H Blood Pressure 89/50 L 93/55 L 98/50 L Pulse Oximetry 92 85 L 98 03/12/21 07:45 03/12/21 07:50 03/12/21 07:56 Temperature Pulse Rate 79 75 77 Respiratory Rate 25 H 25 H 25 H Blood Pressure 105/53 L 96/48 L 104/51 L Pulse Oximetry 91 87 L 92 03/12/21 08:00 03/12/21 08:05 03/12/21 08:10 Temperature Pulse Rate 76 77 79 Respiratory Rate 25 H 25 H 25 H Blood Pressure 105/54 L 108/53 L 108/54 L Pulse Oximetry 92 92 92 <Tania Wallis DO - Last Filed: 03/12/21 18:33> Orders Ordered: Discontinued Medications Etomidate (Etomidate 2 Mg/Ml 10 Ml Vial) 20 mg IV NOW ONE Stop: 03/12/21 06:58 Last Admin: 03/12/21 06:40 Dose: 20 mg Documented by: ARSLAN Piperacillin Sod/Tazobactam (Sod 4.5 gm/ Sodium Chloride) 100 mls @ 200 mls/hr IV NOW ONE Stop: 03/12/21 04:17 Last Infusion: 03/12/21 05:25 Dose: 0 mls/hr Documented by: Admin: 03/12/21 04:45 Dose: 200 mls/hr Documented by: ROYCE Furosemide 120 mg/ Sodium (Chloride) 62 mls @ 124 mls/hr IV NOW ONE Stop: 03/12/21 04:17 Last Infusion: 03/12/21 05:25 Dose: 0 mls/hr Documented by: Admin: 03/12/21 04:45 Dose: 124 mls/hr Documented by: ROYCE Piperacillin Sod/Tazobactam (Sod 4.5 gm/ Sodium Chloride) 100 mls @ 200 mls/hr IV NOW ONE Stop: 03/12/21 04:30 Last Admin: 03/12/21 05:27 Dose: Not Given Documented by: ROYCE Propofol (Propofol) 1,000 mg in 100 mls @ 4.209 mls/hr IV TITRATE LORNA; Protocol Last Titration: 03/12/21 09:45 Dose: 7 mcg/kg/min, 5.893 mls/hr Documented by: Titration: 03/12/21 08:46 Dose: 7 mcg/kg/min, 5.893 mls/hr Documented by: Titration: 03/12/21 08:11 Dose: 6 mcg/kg/min, 5.051 mls/hr Documented by: Admin: 03/12/21 07:06 Dose: 5 mcg/kg/min, 4.209 mls/hr Documented by: ARSLAN Sodium Chloride (Normal Saline 0.9%) 1,000 mls @ 1,000 mls/hr IV BOLUS ONE Stop: 03/12/21 08:01 Last Infusion: 03/12/21 07:51 Dose: 0 mls/hr Documented by: Admin: 03/12/21 06:35 Dose: 1,000 mls/hr Documented by: ARSLAN Fentanyl 1,000 mcg/ Dextrose 250 mls @ 24.553 mls/hr IV TITRATE LORNA Last Infusion: 03/12/21 09:47 Dose: 0.7 mcg/kg/hr, 24.553 mls/hr Documented by: Admin: 03/12/21 07:59 Dose: 0.7 mcg/kg/hr, 24.553 mls/hr Documented by: DEMETRA Midazolam HCl (Midazolam 2 Mg/2 Ml Vial) 2 mg IV NOW ONE Stop: 03/12/21 07:17 Last Admin: 03/12/21 07:19 Dose: 2 mg Documented by: ARSLAN Midazolam HCl (Midazolam 2 Mg/2 Ml Vial) 2 mg IV NOW ONE Stop: 03/12/21 07:50 Propofol (Propofol 200 Mg/20 Ml Vial) 60 mg IV NOW ONE Stop: 03/12/21 07:00 Last Admin: 03/12/21 06:47 Dose: 60 mg Documented by: ARSLAN Propofol (Propofol 200 Mg/20 Ml Vial) 60 mg IV NOW ONE Stop: 03/12/21 07:00 Last Admin: 03/12/21 06:52 Dose: 60 mg Documented by: ARSLAN Succinylcholine Chloride (Succinylcholine 200 Mg/10 Ml Vial) 100 mg IV NOW ONE Stop: 03/12/21 06:59 Last Admin: 03/12/21 06:46 Dose: 100 mg Documented by: ARSLAN Reevaluation(s) Reevaluation #1: Patient signed out to myself by Dr. Lerner. Patient's history, labs and imaging reviewed. Patient was intubated just prior to my arrival for continually decreasing O2 sats. Patient has developed hypotension post intubation likely secondary to propofol. Plan to change to fentanyl gtt if patient's pressures are not improved. Post intubation imaging also reviewed. Awaiting call back from [facility] for transfer. Patient has lesion in the mainstem that may be mucous plug versus endobronchial lesion and may likely require bronchoscopy which we do not have available. Time: 07:10 Consultations Consultation #1: Spoke with patient's son. Updated on current course of therapy. He was unsure of patient's code status. He was aware that she has been intubated in the past. Time: 08:03 Consultation #2: Dr. Santo at [facility] accepts for transfer to ICU. Reviewed patient's past medical history, current findings today and status. Time: 08:09 Vital Signs Vital signs: Vital Signs - 8 hr 03/12/21 03:00 03/12/21 03:04 03/12/21 03:05 Temperature 98.3 F Pulse Rate 96 H 101 H 97 H Respiratory Rate 23 25 H Blood Pressure 120/55 L 111/57 L Pulse Oximetry 87 L 88 L 89 L 03/12/21 03:30 03/12/21 03:31 03/12/21 04:00 Temperature Pulse Rate 98 H 97 H 91 H Respiratory Rate 27 H 25 H 17 Blood Pressure 111/57 L Pulse Oximetry 89 L 89 L 95 03/12/21 04:01 03/12/21 04:26 03/12/21 04:30 Temperature Pulse Rate 93 H 83 78 Respiratory Rate 20 27 H Blood Pressure 107/55 L 107/55 L 106/61 Pulse Oximetry 95 92 93 03/12/21 04:47 03/12/21 05:00 03/12/21 05:08 Temperature Pulse Rate 88 83 83 Respiratory Rate 6 L 9 L 8 L Blood Pressure 120/56 L 122/59 L Pulse Oximetry 96 92 92 03/12/21 05:30 03/12/21 05:47 03/12/21 06:00 Temperature Pulse Rate 84 77 Respiratory Rate 20 12 Blood Pressure 129/60 129/60 122/58 L Pulse Oximetry 94 92 03/12/21 06:30 03/12/21 06:31 03/12/21 06:38 Temperature Pulse Rate 81 75 81 Respiratory Rate 34 H 25 H 24 Blood Pressure 122/59 L 122/59 L 138/63 Pulse Oximetry 87 L 89 L 83 L 03/12/21 06:41 03/12/21 06:45 03/12/21 06:47 Temperature Pulse Rate 101 H 87 84 Respiratory Rate 29 H 26 H 25 H Blood Pressure 130/64 122/55 L Pulse Oximetry 81 L 89 L 03/12/21 06:51 03/12/21 06:56 03/12/21 06:58 Temperature Pulse Rate 89 85 87 Respiratory Rate 23 25 H 33 H Blood Pressure 114/71 77/44 L 80/43 L Pulse Oximetry 92 90 L 91 03/12/21 07:00 03/12/21 07:05 03/12/21 07:10 Temperature Pulse Rate 86 80 77 Respiratory Rate 40 H 29 H 42 H Blood Pressure 76/45 L 86/54 L 90/51 L Pulse Oximetry 90 L 93 96 03/12/21 07:15 03/12/21 07:20 03/12/21 07:25 Temperature Pulse Rate 73 74 78 Respiratory Rate 40 H 25 H 25 H Blood Pressure 86/51 L 90/53 L 92/50 L Pulse Oximetry 96 94 93 03/12/21 07:30 03/12/21 07:35 03/12/21 07:40 Temperature Pulse Rate 75 80 77 Respiratory Rate 25 H 27 H 25 H Blood Pressure 89/50 L 93/55 L 98/50 L Pulse Oximetry 92 85 L 98 03/12/21 07:45 03/12/21 07:50 03/12/21 07:56 Temperature Pulse Rate 79 75 77 Respiratory Rate 25 H 25 H 25 H Blood Pressure 105/53 L 96/48 L 104/51 L Pulse Oximetry 91 87 L 92 03/12/21 08:00 03/12/21 08:05 03/12/21 08:10 Temperature Pulse Rate 76 77 79 Respiratory Rate 25 H 25 H 25 H Blood Pressure 105/54 L 108/53 L 108/54 L Pulse Oximetry 92 92 92 Medical Decision Making <Patrica Rudd MD - Last Filed: 03/14/21 09:06> Medical Records Medical records reviewed: Yes I reviewed the patient's medical records. Lab Data Lab results reviewed: Yes I reviewed the patient's lab results. Result diagrams: 03/12/21 03:15 03/12/21 03:15 Labs: Lab Results 03/12/21 03/12/21 03/12/21 Range/Units 03:07 03:15 03:15 WBC 10.3 (4.5-11.0) X10^3/uL RBC 4.24 (4.0-5.2) X10^6/uL Hgb 11.5 L (12.0-16.0) g/dL Hct 37.6 (36-46) % MCV 88.8 (80-100) fL MCH 27.0 (26-34) PG MCHC 30.5 (30-36) % RDW 20.2 H (11.6-14.8) % Plt Count 303 (150-400) X10^3/uL Neut % (Auto) 84.3 H (50-75) % Lymph % (Auto) 6.7 L (25-40) % Desha % (Auto) 6.6 (3-14) % Eos % (Auto) 1.5 L (2-4) % Baso % (Auto) 0.9 (0-2) % Neut # (Auto) 8700 H (7864-8301) /uL Lymph # (Auto) 700 L (8753-9161) /uL Desha # (Auto) 700 (0-900) /uL Eos # (Auto) 200 (0-450) /uL Baso # (Auto) 100 (0-100) /uL RBC Morphology See below Polychromasia 1+ H Hypochromasia 1+ H Anisocytosis 2+ H ABG pH (7.35-7.45) ABG pCO2 (35-45) mmHg ABG pO2 (80-100) mmHg ABG HCO3 (22-26) mmol/L ABG Total CO2 (21-31) mmol/L ABG O2 Saturation (95-100) % ABG Base Excess (-2-2) mmol/L VBG pH (7.33-7.43) VBG pCO2 (45-50) mmHg VBG pO2 (35-45) mmHg VBG HCO3 (23-28) mmol/L VBG Total CO2 (24-29) mmol/L VBG O2 Saturation (70-75) % VBG Base Excess (0-4) mmol/L FiO2 Sodium 141 (137-145) mmol/L Potassium 4.5 (3.4-5.1) mmol/L Chloride 99 (98-107) mmol/L Carbon Dioxide 37 H (22-32) mmol/L BUN 23 H (7-17) mg/dL Creatinine 0.53 (0.52-1.04) mg/dL Estimated GFR > 60.0 (>60) mL/min BUN/Creatinine Ratio 43.4 H (6-22) Glucose 163 H (80-110) mg/dL Lactate (0.7-2.1) mmol/L Calcium 9.2 (8.4-10.2) mg/dL Magnesium 2.0 (1.6-2.3) mg/dL Total Bilirubin 0.5 (0.2-1.3) mg/dL AST 24 (14-36) IU/L ALT 13 (<35) IU/L Alkaline Phosphatase 83 (38-126) U/L Troponin I < 0.012 (0.01-0.034) ng/mL NT-Pro-B Natriuret Pep 2090 H (<125) pg/mL Total Protein 7.6 (6.3-8.2) g/dL Albumin 3.7 (3.5-5.0) g/dL Globulin 3.9 (1.7-4.1) g/dL Albumin/Globulin Ratio 0.9 L (1.0-2.8) Urine Color Urine Appearance Urine pH (4.5-8.0) Ur Specific [place] (1.000-1.035) Urine Protein (Negative) Urine Glucose (UA) (Negative) g/dL Urine Ketones (NEGATIVE) Urine Occult Blood (Negative) Urine Nitrate (Negative) Urine Bilirubin (NEGATIVE) Urine Urobilinogen (0.2) E.U./dL Ur Leukocyte Esterase (NEGATIVE) Urine RBC (0-5/HPF) Urine WBC (0-5/HPF) Ur Squamous Epith Cells (0-5/HPF) Urine Bacteria (None) Hyaline Casts (None) Urine Mucus (Negative) Ur Culture Indicated? Chlamy pneumoniae PCR (Not Detect) Adenovirus (PCR) (Not Detect) B. pertussis DNA (PCR) (Not Detecte) B.parapertussis DNA PCR (Not Detecte) Coronavirus OC43 (PCR) (Not Detect) Coronavirus HKU1 (PCR) (Not Detect) Coronavirus 229E (PCR) (Not Detect) SARS-CoV-2 (PCR) Negative (Negative) Coronavirus NL63 (PCR) (Not Detect) Human Metapneumovir PCR (Not Detect) Influenza Type A (PCR) (Not Detect) Influenza Type B (PCR) (Not Detect) M. pneumoniae (PCR) (Not Detect) Parainfluenza 1 (PCR) (Not Detect) Parainfluenza 2 (PCR) (Not Detect) Parainfluenza 3 (PCR) (Not Detect) Parainfluenza 4 (PCR) (Not Detect) RSV (PCR) (Not Detect) Entero/Rhino (PCR) (Not Detect) 03/12/21 03/12/21 03/12/21 Range/Units 03:15 03:16 03:20 WBC (4.5-11.0) X10^3/uL RBC (4.0-5.2) X10^6/uL Hgb (12.0-16.0) g/dL Hct (36-46) % MCV (80-100) fL MCH (26-34) PG MCHC (30-36) % RDW (11.6-14.8) % Plt Count (150-400) X10^3/uL Neut % (Auto) (50-75) % Lymph % (Auto) (25-40) % Desha % (Auto) (3-14) % Eos % (Auto) (2-4) % Baso % (Auto) (0-2) % Neut # (Auto) (5695-4218) /uL Lymph # (Auto) (5784-0830) /uL Desha # (Auto) (0-900) /uL Eos # (Auto) (0-450) /uL Baso # (Auto) (0-100) /uL RBC Morphology Polychromasia Hypochromasia Anisocytosis ABG pH (7.35-7.45) ABG pCO2 (35-45) mmHg ABG pO2 (80-100) mmHg ABG HCO3 (22-26) mmol/L ABG Total CO2 (21-31) mmol/L ABG O2 Saturation (95-100) % ABG Base Excess (-2-2) mmol/L VBG pH 7.27 L (7.33-7.43) VBG pCO2 85.0 H (45-50) mmHg VBG pO2 46 H (35-45) mmHg VBG HCO3 39 H (23-28) mmol/L VBG Total CO2 41 H (24-29) mmol/L VBG O2 Saturation 73 (70-75) % VBG Base Excess 12.0 H (0-4) mmol/L FiO2 Sodium (137-145) mmol/L Potassium (3.4-5.1) mmol/L Chloride (98-107) mmol/L Carbon Dioxide (22-32) mmol/L BUN (7-17) mg/dL Creatinine (0.52-1.04) mg/dL Estimated GFR (>60) mL/min BUN/Creatinine Ratio (6-22) Glucose (80-110) mg/dL Lactate 1.2 (0.7-2.1) mmol/L Calcium (8.4-10.2) mg/dL Magnesium (1.6-2.3) mg/dL Total Bilirubin (0.2-1.3) mg/dL AST (14-36) IU/L ALT (<35) IU/L Alkaline Phosphatase (38-126) U/L Troponin I (0.01-0.034) ng/mL NT-Pro-B Natriuret Pep (<125) pg/mL Total Protein (6.3-8.2) g/dL Albumin (3.5-5.0) g/dL Globulin (1.7-4.1) g/dL Albumin/Globulin Ratio (1.0-2.8) Urine Color Urine Appearance Urine pH (4.5-8.0) Ur Specific [place] (1.000-1.035) Urine Protein (Negative) Urine Glucose (UA) (Negative) g/dL Urine Ketones (NEGATIVE) Urine Occult Blood (Negative) Urine Nitrate (Negative) Urine Bilirubin (NEGATIVE) Urine Urobilinogen (0.2) E.U./dL Ur Leukocyte Esterase (NEGATIVE) Urine RBC (0-5/HPF) Urine WBC (0-5/HPF) Ur Squamous Epith Cells (0-5/HPF) Urine Bacteria (None) Hyaline Casts (None) Urine Mucus (Negative) Ur Culture Indicated? Chlamy pneumoniae PCR Not detected (Not Detect) Adenovirus (PCR) Not detected (Not Detect) B. pertussis DNA (PCR) Not detected (Not Detecte) B.parapertussis DNA PCR Not detected (Not Detecte) Coronavirus OC43 (PCR) Not detected (Not Detect) Coronavirus HKU1 (PCR) Not detected (Not Detect) Coronavirus 229E (PCR) Not detected (Not Detect) SARS-CoV-2 (PCR) Not detected (Negative) Coronavirus NL63 (PCR) Not detected (Not Detect) Human Metapneumovir PCR Not detected (Not Detect) Influenza Type A (PCR) Not detected (Not Detect) Influenza Type B (PCR) Not detected (Not Detect) M. pneumoniae (PCR) Not detected (Not Detect) Parainfluenza 1 (PCR) Not detected (Not Detect) Parainfluenza 2 (PCR) Not detected (Not Detect) Parainfluenza 3 (PCR) Not detected (Not Detect) Parainfluenza 4 (PCR) Not detected (Not Detect) RSV (PCR) Not detected (Not Detect) Entero/Rhino (PCR) Not detected (Not Detect) 03/12/21 03/12/21 03/12/21 Range/Units 05:06 05:46 07:53 WBC (4.5-11.0) X10^3/uL RBC (4.0-5.2) X10^6/uL Hgb (12.0-16.0) g/dL Hct (36-46) % MCV (80-100) fL MCH (26-34) PG MCHC (30-36) % RDW (11.6-14.8) % Plt Count (150-400) X10^3/uL Neut % (Auto) (50-75) % Lymph % (Auto) (25-40) % Desha % (Auto) (3-14) % Eos % (Auto) (2-4) % Baso % (Auto) (0-2) % Neut # (Auto) (6043-0304) /uL Lymph # (Auto) (0912-6387) /uL Desha # (Auto) (0-900) /uL Eos # (Auto) (0-450) /uL Baso # (Auto) (0-100) /uL RBC Morphology Polychromasia Hypochromasia Anisocytosis ABG pH 7.29 L* 7.46 H (7.35-7.45) ABG pCO2 83.4 H* 54.2 H (35-45) mmHg ABG pO2 69 L 54 L (80-100) mmHg ABG HCO3 40 H 39 H (22-26) mmol/L ABG Total CO2 43 H 40 H (21-31) mmol/L ABG O2 Saturation 90 L 88 L (95-100) % ABG Base Excess 14.0 H 15.0 H (-2-2) mmol/L VBG pH (7.33-7.43) VBG pCO2 (45-50) mmHg VBG pO2 (35-45) mmHg VBG HCO3 (23-28) mmol/L VBG Total CO2 (24-29) mmol/L VBG O2 Saturation (70-75) % VBG Base Excess (0-4) mmol/L FiO2 80 100 Sodium (137-145) mmol/L Potassium (3.4-5.1) mmol/L Chloride (98-107) mmol/L Carbon Dioxide (22-32) mmol/L BUN (7-17) mg/dL Creatinine (0.52-1.04) mg/dL Estimated GFR (>60) mL/min BUN/Creatinine Ratio (6-22) Glucose (80-110) mg/dL Lactate (0.7-2.1) mmol/L Calcium (8.4-10.2) mg/dL Magnesium (1.6-2.3) mg/dL Total Bilirubin (0.2-1.3) mg/dL AST (14-36) IU/L ALT (<35) IU/L Alkaline Phosphatase (38-126) U/L Troponin I (0.01-0.034) ng/mL NT-Pro-B Natriuret Pep (<125) pg/mL Total Protein (6.3-8.2) g/dL Albumin (3.5-5.0) g/dL Globulin (1.7-4.1) g/dL Albumin/Globulin Ratio (1.0-2.8) Urine Color Yellow Urine Appearance Clear Urine pH 5.5 (4.5-8.0) Ur Specific [place] 1.025 (1.000-1.035) Urine Protein Trace H (Negative) Urine Glucose (UA) Negative (Negative) g/dL Urine Ketones Negative (NEGATIVE) Urine Occult Blood Negative (Negative) Urine Nitrate Positive H (Negative) Urine Bilirubin Negative (NEGATIVE) Urine Urobilinogen 0.2 (0.2) E.U./dL Ur Leukocyte Esterase Negative (NEGATIVE) Urine RBC None seen (0-5/HPF) Urine WBC 1-5/hpf (0-5/HPF) Ur Squamous Epith Cells 0-1 /hpf (0-5/HPF) Urine Bacteria Moderate (10-30) H (None) Hyaline Casts 0-1/lpf (None) Urine Mucus 1+ H (Negative) Ur Culture Indicated? Specimen cultured Chlamy pneumoniae PCR (Not Detect) Adenovirus (PCR) (Not Detect) B. pertussis DNA (PCR) (Not Detecte) B.parapertussis DNA PCR (Not Detecte) Coronavirus OC43 (PCR) (Not Detect) Coronavirus HKU1 (PCR) (Not Detect) Coronavirus 229E (PCR) (Not Detect) SARS-CoV-2 (PCR) (Negative) Coronavirus NL63 (PCR) (Not Detect) Human Metapneumovir PCR (Not Detect) Influenza Type A (PCR) (Not Detect) Influenza Type B (PCR) (Not Detect) M. pneumoniae (PCR) (Not Detect) Parainfluenza 1 (PCR) (Not Detect) Parainfluenza 2 (PCR) (Not Detect) Parainfluenza 3 (PCR) (Not Detect) Parainfluenza 4 (PCR) (Not Detect) RSV (PCR) (Not Detect) Entero/Rhino (PCR) (Not Detect) Imaging Data Chest x-ray: Radiologist's Impression: Postobstructive atelectasis with near complete collapse of the right lung and mediastinal shift to the right Left lung is clear with passive venous congestion present Jarrell Sehti MD CT scan - chest: Radiologist's Impression: Postobstructive atelectasis with near complete atelectatic right lung right upper lobe is partially aerated. Endobronchial lesion right mainstem bronchus possible mucus plug of pulmonary consultation is advised. Mediastinal shift to the right. Cardiomegaly, calcified coronary artery disease is extensive Mild mediastinal lymphadenopathy Jarrell Sethi MD CT scan - head: Radiologist's Impression: Portions of the basilar artery are hyperdense and cannot exclude a basilar tip artery aneurysm verses dolichoectasia. CTA correlation advised. Cerebral volume loss, intracranial atherosclerotic disease and mild sequelae of chronic small vessel ischemic disease Jarrell Sethi MD ECG Data Attestation: I personally reviewed and interpreted this ECG as follows: Interpretation: Sinus rhythm at a rate of 100 with occasional PAC Normal axis No acute ischemic changes MDM Narrative Medical decision making narrative: 70-year-old woman with multiple concurrent chronic medical problems and recent admissions. Chronic respiratory failure with acute exacerbation altered mental status and elevated carbon dioxide with increased difficulty with oxygenation. Code status is unclear at this time. Apparently there is no pulsed form from her assisted living facility. With her altered mental status in-depth discussions are challenging. When asked if she would want to be placed on a hakan tilator to help her breathe she initially said no and when asked if she would still want to avoid it if it meant that she might stop breathing she said ?will go ahead and do it then?. She was not able to cognitively participate in discussions regarding chest compressions. At this point will consider her a full code. Chest x-ray shows right lung collapse with congestive heart failure suggestive in the left lung and with cardio megaly. This is a significant change from comparison film in December and CT scan of the chest has been ordered. Labs returning and this time for sepsis or overall infectious etiology. White cell count is 10.3 with mild left shift. 1.2. Urine sample is being obtained. Sputum sample has also been sent. Pulmonary PCR is negative including COVID. VBG is consistent with her clinical presentation for hypercapnic respiratory failure. PH is 7.26, CO2 of 85, O2 of 46 with high-flow oxygen in place. Because of the significant respiratory distress she was initially started on high-flow oxygen. This COVID studies have returned negative in remainder studies are also becoming evident she is switched to BiPAP for assistance with ventilation and she seems to be tolerating well. Woods catheter is placed and IV Lasix is given for presumed acute congestive h eart failure exacerbation. 5:[address] scan is reviewed and confirms postobstructive atelectasis. Endobronchial lesion verses mucus plugging. She had a chest x-ray less than 2 months ago did that did not suggest a dramatic endobronchial lesion presents and given the amount of thick sputum that she is coughing up mucus plugging is certainly a possibility. She continues on BiPAP at 80% oxygen rate of 12 pressure 10 and is not worsening but is also not significantly improving. PH is 2.9 CO2 is 83.4 and PO2 is 69. She remains quite lethargic, presumably from the hypercarbia, patient was fairly clear that she wanted to avoid intubation for as long as possible. Will continue with BiPAP for now [facility] looking for beds with battery engineer/Pulmonary consultation available and thoracic surgeon available if needed. [facility] has no beds at this time. Phone calls are out to [facility] Urinalysis returns with positive nitrites, moderate amount of bacteria and leukocyte esterase. She received to [facility] initially with concerns for pneumonia this will certainly cover any urinary pathogens of the culture for this returns positive. 600 continued decreasing sats with increasing BiPAP settings and clearly increasing hypercarbia and decreasing level of consciousness. Again spoke with her assisted living setting and there are no advanced directives. Will move to intubation. 650 successfully intubated with significant sputum and debris being suctioned. Sats are in the low 90s at this point. Blood pressures remain stable as has heart rate. She is on a propofol drip for sedation. She has put out almost 2500 cc in urine after the 120 mg of Lasix. <Tania Wallis, DO - Last Filed: 03/12/21 18:33> Lab Data Lab results reviewed: Yes I reviewed the patient's lab results. Labs: Lab Results 03/12/21 03/12/21 03/12/21 Range/Units 03:07 03:15 03:15 WBC 10.3 (4.5-11.0) X10^3/uL RBC 4.24 (4.0-5.2) X10^6/uL Hgb 11.5 L (12.0-16.0) g/dL Hct 37.6 (36-46) % MCV 88.8 (80-100) fL MCH 27.0 (26-34) PG MCHC 30.5 (30-36) % RDW 20.2 H (11.6-14.8) % Plt Count 303 (150-400) X10^3/uL Neut % (Auto) 84.3 H (50-75) % Lymph % (Auto) 6.7 L (25-40) % Desha % (Auto) 6.6 (3-14) % Eos % (Auto) 1.5 L (2-4) % Baso % (Auto) 0.9 (0-2) % Neut # (Auto) 8700 H (2465-7274) /uL Lymph # (Auto) 700 L (1028-1533) /uL Desha # (Auto) 700 (0-900) /uL Eos # (Auto) 200 (0-450) /uL Baso # (Auto) 100 (0-100) /uL RBC Morphology See below Polychromasia 1+ H Hypochromasia 1+ H Anisocytosis 2+ H ABG pH (7.35-7.45) ABG pCO2 (35-45) mmHg ABG pO2 (80-100) mmHg ABG HCO3 (22-26) mmol/L ABG Total CO2 (21-31) mmol/L ABG O2 Saturation (95-100) % ABG Base Excess (-2-2) mmol/L VBG pH (7.33-7.43) VBG pCO2 (45-50) mmHg VBG pO2 (35-45) mmHg VBG HCO3 (23-28) mmol/L VBG Total CO2 (24-29) mmol/L VBG O2 Saturation (70-75) % VBG Base Excess (0-4) mmol/L FiO2 Sodium 141 (137-145) mmol/L Potassium 4.5 (3.4-5.1) mmol/L Chloride 99 (98-107) mmol/L Carbon Dioxide 37 H (22-32) mmol/L BUN 23 H (7-17) mg/dL Creatinine 0.53 (0.52-1.04) mg/dL Estimated GFR > 60.0 (>60) mL/min BUN/Creatinine Ratio 43.4 H (6-22) Glucose 163 H (80-110) mg/dL Lactate (0.7-2.1) mmol/L Calcium 9.2 (8.4-10.2) mg/dL Magnesium 2.0 (1.6-2.3) mg/dL Total Bilirubin 0.5 (0.2-1.3) mg/dL AST 24 (14-36) IU/L ALT 13 (<35) IU/L Alkaline Phosphatase 83 (38-126) U/L Troponin I < 0.012 (0.01-0.034) ng/mL NT-Pro-B Natriuret Pep 2090 H (<125) pg/mL Total Protein 7.6 (6.3-8.2) g/dL Albumin 3.7 (3.5-5.0) g/dL Globulin 3.9 (1.7-4.1) g/dL Albumin/Globulin Ratio 0.9 L (1.0-2.8) Urine Color Urine Appearance Urine pH (4.5-8.0) Ur Specific [place] (1.000-1.035) Urine Protein (Negative) Urine Glucose (UA) (Negative) g/dL Urine Ketones (NEGATIVE) Urine Occult Blood (Negative) Urine Nitrate (Negative) Urine Bilirubin (NEGATIVE) Urine Urobilinogen (0.2) E.U./dL Ur Leukocyte Esterase (NEGATIVE) Urine RBC (0-5/HPF) Urine WBC (0-5/HPF) Ur Squamous Epith Cells (0-5/HPF) Urine Bacteria (None) Hyaline Casts (None) Urine Mucus (Negative) Ur Culture Indicated? Chlamy pneumoniae PCR (Not Detect) Adenovirus (PCR) (Not Detect) B. pertussis DNA (PCR) (Not Detecte) B.parapertussis DNA PCR (Not Detecte) Coronavirus OC43 (PCR) (Not Detect) Coronavirus HKU1 (PCR) (Not Detect) Coronavirus 229E (PCR) (Not Detect) SARS-CoV-2 (PCR) Negative (Negative) Coronavirus NL63 (PCR) (Not Detect) Human Metapneumovir PCR (Not Detect) Influenza Type A (PCR) (Not Detect) Influenza Type B (PCR) (Not Detect) M. pneumoniae (PCR) (Not Detect) Parainfluenza 1 (PCR) (Not Detect) Parainfluenza 2 (PCR) (Not Detect) Parainfluenza 3 (PCR) (Not Detect) Parainfluenza 4 (PCR) (Not Detect) RSV (PCR) (Not Detect) Entero/Rhino (PCR) (Not Detect) 03/12/21 03/12/21 03/12/21 Range/Units 03:15 03:16 03:20 WBC (4.5-11.0) X10^3/uL RBC (4.0-5.2) X10^6/uL Hgb (12.0-16.0) g/dL Hct (36-46) % MCV (80-100) fL MCH (26-34) PG MCHC (30-36) % RDW (11.6-14.8) % Plt Count (150-400) X10^3/uL Neut % (Auto) (50-75) % Lymph % (Auto) (25-40) % Desha % (Auto) (3-14) % Eos % (Auto) (2-4) % Baso % (Auto) (0-2) % Neut # (Auto) (3328-8093) /uL Lymph # (Auto) (1858-5462) /uL Desha # (Auto) (0-900) /uL Eos # (Auto) (0-450) /uL Baso # (Auto) (0-100) /uL RBC Morphology Polychromasia Hypochromasia Anisocytosis ABG pH (7.35-7.45) ABG pCO2 (35-45) mmHg ABG pO2 (80-100) mmHg ABG HCO3 (22-26) mmol/L ABG Total CO2 (21-31) mmol/L ABG O2 Saturation (95-100) % ABG Base Excess (-2-2) mmol/L VBG pH 7.27 L (7.33-7.43) VBG pCO2 85.0 H (45-50) mmHg VBG pO2 46 H (35-45) mmHg VBG HCO3 39 H (23-28) mmol/L VBG Total CO2 41 H (24-29) mmol/L VBG O2 Saturation 73 (70-75) % VBG Base Excess 12.0 H (0-4) mmol/L FiO2 Sodium (137-145) mmol/L Potassium (3.4-5.1) mmol/L Chloride (98-107) mmol/L Carbon Dioxide (22-32) mmol/L BUN (7-17) mg/dL Creatinine (0.52-1.04) mg/dL Estimated GFR (>60) mL/min BUN/Creatinine Ratio (6-22) Glucose (80-110) mg/dL Lactate 1.2 (0.7-2.1) mmol/L Calcium (8.4-10.2) mg/dL Magnesium (1.6-2.3) mg/dL Total Bilirubin (0.2-1.3) mg/dL AST (14-36) IU/L ALT (<35) IU/L Alkaline Phosphatase (38-126) U/L Troponin I (0.01-0.034) ng/mL NT-Pro-B Natriuret Pep (<125) pg/mL Total Protein (6.3-8.2) g/dL Albumin (3.5-5.0) g/dL Globulin (1.7-4.1) g/dL Albumin/Globulin Ratio (1.0-2.8) Urine Color Urine Appearance Urine pH (4.5-8.0) Ur Specific [place] (1.000-1.035) Urine Protein (Negative) Urine Glucose (UA) (Negative) g/dL Urine Ketones (NEGATIVE) Urine Occult Blood (Negative) Urine Nitrate (Negative) Urine Bilirubin (NEGATIVE) Urine Urobilinogen (0.2) E.U./dL Ur Leukocyte Esterase (NEGATIVE) Urine RBC (0-5/HPF) Urine WBC (0-5/HPF) Ur Squamous Epith Cells (0-5/HPF) Urine Bacteria (None) Hyaline Casts (None) Urine Mucus (Negative) Ur Culture Indicated? Chlamy pneumoniae PCR Not detected (Not Detect) Adenovirus (PCR) Not detected (Not Detect) B. pertussis DNA (PCR) Not detected (Not Detecte) B.parapertussis DNA PCR Not detected (Not Detecte) Coronavirus OC43 (PCR) Not detected (Not Detect) Coronavirus HKU1 (PCR) Not detected (Not Detect) Coronavirus 229E (PCR) Not detected (Not Detect) SARS-CoV-2 (PCR) Not detected (Negative) Coronavirus NL63 (PCR) Not detected (Not Detect) Human Metapneumovir PCR Not detected (Not Detect) Influenza Type A (PCR) Not detected (Not Detect) Influenza Type B (PCR) Not detected (Not Detect) M. pneumoniae (PCR) Not detected (Not Detect) Parainfluenza 1 (PCR) Not detected (Not Detect) Parainfluenza 2 (PCR) Not detected (Not Detect) Parainfluenza 3 (PCR) Not detected (Not Detect) Parainfluenza 4 (PCR) Not detected (Not Detect) RSV (PCR) Not detected (Not Detect) Entero/Rhino (PCR) Not detected (Not Detect) 03/12/21 03/12/21 03/12/21 Range/Units 05:06 05:46 07:53 WBC (4.5-11.0) X10^3/uL RBC (4.0-5.2) X10^6/uL Hgb (12.0-16.0) g/dL Hct (36-46) % MCV (80-100) fL MCH (26-34) PG MCHC (30-36) % RDW (11.6-14.8) % Plt Count (150-400) X10^3/uL Neut % (Auto) (50-75) % Lymph % (Auto) (25-40) % Desha % (Auto) (3-14) % Eos % (Auto) (2-4) % Baso % (Auto) (0-2) % Neut # (Auto) (9377-5996) /uL Lymph # (Auto) (5345-4847) /uL Desha # (Auto) (0-900) /uL Eos # (Auto) (0-450) /uL Baso # (Auto) (0-100) /uL RBC Morphology Polychromasia Hypochromasia Anisocytosis ABG pH 7.29 L* 7.46 H (7.35-7.45) ABG pCO2 83.4 H* 54.2 H (35-45) mmHg ABG pO2 69 L 54 L (80-100) mmHg ABG HCO3 40 H 39 H (22-26) mmol/L ABG Total CO2 43 H 40 H (21-31) mmol/L ABG O2 Saturation 90 L 88 L (95-100) % ABG Base Excess 14.0 H 15.0 H (-2-2) mmol/L VBG pH (7.33-7.43) VBG pCO2 (45-50) mmHg VBG pO2 (35-45) mmHg VBG HCO3 (23-28) mmol/L VBG Total CO2 (24-29) mmol/L VBG O2 Saturation (70-75) % VBG Base Excess (0-4) mmol/L FiO2 80 100 Sodium (137-145) mmol/L Potassium (3.4-5.1) mmol/L Chloride (98-107) mmol/L Carbon Dioxide (22-32) mmol/L BUN (7-17) mg/dL Creatinine (0.52-1.04) mg/dL Estimated GFR (>60) mL/min BUN/Creatinine Ratio (6-22) Glucose (80-110) mg/dL Lactate (0.7-2.1) mmol/L Calcium (8.4-10.2) mg/dL Magnesium (1.6-2.3) mg/dL Total Bilirubin (0.2-1.3) mg/dL AST (14-36) IU/L ALT (<35) IU/L Alkaline Phosphatase (38-126) U/L Troponin I (0.01-0.034) ng/mL NT-Pro-B Natriuret Pep (<125) pg/mL Total Protein (6.3-8.2) g/dL Albumin (3.5-5.0) g/dL Globulin (1.7-4.1) g/dL Albumin/Globulin Ratio (1.0-2.8) Urine Color Yellow Urine Appearance Clear Urine pH 5.5 (4.5-8.0) Ur Specific [place] 1.025 (1.000-1.035) Urine Protein Trace H (Negative) Urine Glucose (UA) Negative (Negative) g/dL Urine Ketones Negative (NEGATIVE) Urine Occult Blood Negative (Negative) Urine Nitrate Positive H (Negative) Urine Bilirubin Negative (NEGATIVE) Urine Urobilinogen 0.2 (0.2) E.U./dL Ur Leukocyte Esterase Negative (NEGATIVE) Urine RBC None seen (0-5/HPF) Urine WBC 1-5/hpf (0-5/HPF) Ur Squamous Epith Cells 0-1 /hpf (0-5/HPF) Urine Bacteria Moderate (10-30) H (None) Hyaline Casts 0-1/lpf (None) Urine Mucus 1+ H (Negative) Ur Culture Indicated? Specimen cultured Chlamy pneumoniae PCR (Not Detect) Adenovirus (PCR) (Not Detect) B. pertussis DNA (PCR) (Not Detecte) B.parapertussis DNA PCR (Not Detecte) Coronavirus OC43 (PCR) (Not Detect) Coronavirus HKU1 (PCR) (Not Detect) Coronavirus 229E (PCR) (Not Detect) SARS-CoV-2 (PCR) (Negative) Coronavirus NL63 (PCR) (Not Detect) Human Metapneumovir PCR (Not Detect) Influenza Type A (PCR) (Not Detect) Influenza Type B (PCR) (Not Detect) M. pneumoniae (PCR) (Not Detect) Parainfluenza 1 (PCR) (Not Detect) Parainfluenza 2 (PCR) (Not Detect) Parainfluenza 3 (PCR) (Not Detect) Parainfluenza 4 (PCR) (Not Detect) RSV (PCR) (Not Detect) Entero/Rhino (PCR) (Not Detect) MDM Narrative Medical decision making narrative: 70-year-old female who was intubated by the overnight shift for increasing altered mental status and hypoxia. Patient has a history of respiratory failure and has been intubated in the past. Patient mago sanchez appears to possibly have a mucus plug versus endobronchial lesion noted on CT as well as obvious changes on her x-ray. Patient did have some improvement on her x-ray after intubation. Patient's hypoxia did improve although she has had some intermittent episodes into the mid 80s. Patient is at 100% FiO2 with a PEEP of 8, repeat ABG shows improvement of her pH and CO2 with a pH of 7.46 improved from 7.293 on her secondary ABG. Patient's CO2 is also improved from 83-54. Her PaO2 is only 54 and this is on 100% FiO2. Patient's sedation was being weaned office she had some hypotension likely from propofol. Patient did receive some Versed pushes as she was not fully sedated and fentanyl drip was initiated with goal of weaning off the propofol to fentanyl. Patient has continued to maintain a sinus rhythm here in the department although she has a history of atrial fibrillation. She has been suctioned several times. Patient was accepted at [facility] by Dr. Santo as she appears to need interventions that we are not able to provide here at [facility]. Critical Care Time <Patrica Rudd MD - Last Filed: 03/14/21 09:06> Critical Care Time Total Critical Care Time: 45 Attestation: Critical care time is separate from other billable procedures. This critical care time includes consultation with family and other consulting doctors, review of records, and interpretation of data from labs, EKGs and imaging as well as managements of respiratory failure, altered mental status, circulatory compromise. Discharge Plan Departure Patient Disposition: [facility] Clinical Impression: Acute hypercapnic respiratory failure, Acute and chronic respiratory failure with hypoxia Prescriptions: No Action metformin [Glucophage] 500 mg tablet 500 mg PO BID RF: 0 oxybutynin chloride 10 mg tablet extended release 24hr 10 mg PO DAILY RF: 0 ursodiol 300 mg capsule 300 mg PO BID RF: 0 aspirin 81 mg Tablet,Delayed Release (Dr/Ec) 81 mg PO DAILY RF: 0 digoxin [Digitek] 125 mcg Tablet 0.125 mg PO QPM RF: 0 warfarin 5 mg tablet 4 mg PO QPM RF: 0 ascorbic acid (vitamin C) 500 mg Tablet See Rx Instructions .ROUTE .COMPLEX RF: 0 cetirizine [Allergy Relief (cetirizine)] 10 mg Tablet 1 tab PO DAILY RF: 0 ferrous sulfate 325 mg (65 mg iron) Tablet 0.5 tab PO TID RF: 0 sennosides [senna] 8.6 mg Tablet 17.2 mg PO BEDTIME PRN (Reason: Constipation) Qty: 30 RF: 0 ursodiol 300 mg Capsule 300 mg PO BID Qty: 30 RF: 0 warfarin [Coumadin] 5 mg Tablet 5 mg PO 1700 Qty: 30 RF: 0 losartan 25 mg Tablet 25 mg PO 2100 Qty: 30 RF: 0 diltiazem HCl 120 mg Capsule,Extended Release 24hr 120 mg PO DAILY Qty: 30 RF: 0 oxybutynin chloride 5 mg Tablet 5 mg PO BID Qty: 30 RF: 0 potassium chloride [Klor-Con M10] 10 mEq Tablet,Er Particles/Crystals 10 meq PO DAILYCC Qty: 30 RF: 0 hydrocodone-acetaminophen 7.5-325 mg tablet 1 tab PO Q6-8H PRN (Reason: pain) Qty: 30 RF: 0 triamcinolone acetonide 0.1 % Ointment 1 applic TOPICAL BID RF: 0 gabapentin 300 mg Capsule 600 mg PO QID RF: 0 Combivent Respimat 20-100 mcg/actuation Mist 1 puff Inhalation Q8H RF: 0 atorvastatin 80 mg tablet 80 mg PO BEDTIME RF: 0 torsemide 20 mg tablet 1 tab PO BID RF: 0 hydrocodone-acetaminophen 7.5-325 mg tablet 1 tab PO Q8H PRN (Reason: Pain, Moderate) RF: 0 potassium chloride 10 mEq capsule, extended release 10 meq PO DAILY Qty: 30 RF: 1 Referrals: Johnny Saini MD [Primary Care Provider] -
[2021-03-12 03:24] LABS: COVID19 -Nasal RAPID Negative (Negative)
[2021-03-12 03:39] LABS: Add Manual Diff / Slide Review NO; Basophils Absolute Auto 100 /uL (0-100); Basophils Percent Auto 0.9 % (0-2); Eosinophils Absolute Auto 200 /uL (0-450); Eosinophils Percent Auto 1.5 % (2-4); Hematocrit 37.6 % (36-46); Hemoglobin 11.5 g/dL (12.0-16.0); Lymphocytes Absolute Auto 700 /uL (1100-4500); Lymphocytes Percent Auto 6.7 % (25-40); Mean Corpuscular HGB Conc 30.5 % (30-36); Mean Corpuscular Volume 88.8 fL (80-100); Monocytes Absolute Auto 700 /uL (0-900); Monocytes Percent Auto 6.6 % (3-14); Neutrophils Absolute Auto 8700 /uL (1500-7000); Neutrophils Percent Auto 84.3 % (50-75); Platelet Count 303 X10^3/uL (150-400); Red Blood Cell Count 4.24 X10^6/uL (4.0-5.2); Red Cell Distribution Width 20.2 % (11.6-14.8); White Blood Cell Count 10.3 X10^3/uL (4.5-11.0)
[2021-03-12 03:40] LABS: Lactate (Lactic Acid) 1.2 mmol/L (0.7-2.1)
[2021-03-12 03:41] LABS: Alanine Aminotransferase 13 IU/L (<35); Albumin 3.7 g/dL (3.5-5.0); Albumin Globulin Ratio 0.9 (1.0-2.8); Alkaline Phosphatase 83 U/L (38-126); Aspartate Aminotransferase 24 IU/L (14-36); BUN Creatinine Ratio 43.4 (6-22); Bilirubin Total 0.5 mg/dL (0.2-1.3); Blood Urea Nitrogen 23 mg/dL (7-17); Calcium 9.2 mg/dL (8.4-10.2); Carbon Dioxide 37 mmol/L (22-32); Chloride 99 mmol/L (98-107); Estimated Glomerular Filt Rate > 60.0 mL/min (>60); Globulin 3.9 g/dL (1.7-4.1); Glucose 163 mg/dL (80-110); HEMOLYSIS 30 (0-50); Potassium 4.5 mmol/L (3.4-5.1); Sodium 141 mmol/L (137-145); Total Protein 7.6 g/dL (6.3-8.2)
[2021-03-12 03:53] LABS: NT-proBNP (BNP-Adult 18+) 2090 pg/mL (<125); Troponin I < 0.012 ng/mL (0.01-0.034)
--- NOTE | 2021-03-12 03:58 | RT ---
Pt arrived on 15 LPM NRB, lethargic. Placed pt on HHFNC at 60 LPM and 90% FiO2. Pt desat to 87% and not tolerating well. Placed pt on BiPAP at 0347 and SpO2 increased to 96%. Will continue to monitor.
[2021-03-12 03:59] LABS: Anisocytosis 2+; Hypochromasia 1+; Polychromasia 1+
[2021-03-12 04:02] LABS: HCO3 VBG 39 mmol/L (23-28); Oxygen Saturation VBG 73 % (70-75); PO2 VBG 46 mmHg (35-45); Total CO2 VBG 41 mmol/L (24-29); pH VBG 7.27 (7.33-7.43)
--- NOTE | 2021-03-12 04:16 | DI.CT.S_ITS ---
PROCEDURE: CT HEAD/BRAIN WO CON INDICATIONS: altered mental status TECHNIQUE: Noncontrast 4.5 mm thick angled axial sections acquired from the foramen magnum to the vertex, with coronal and sagittal reformats. For radiation dose reduction, the following was used: automated exposure control, adjustment of mA and/or kV according to patient size. COMPARISON: [facility], CT, CT HEAD/BRAIN WO CON, 09/25/2018, 13:56. FINDINGS: Image quality: Slightly limited given patient positioning and motion. CSF spaces: Basal cisterns are patent. No extra-axial fluid collections. The ventricles are symmetric in size and shape. Brain: No intracranial bleeds or masses. There is cerebral volume loss for age, with resultant ventricular and sulcal prominence. There are mild periventricular and deep white matter chronic small vessel ischemic changes. There is intracranial internal carotid artery atherosclerosis. Slightly hyperdense and prominent basilar and vertebral arteries. Skull and face: Calvarium and visualized facial bones appear intact. Multiple punctate scalp calcifications. Sinuses: Stable opacification within the left sphenoid sinus likely representing mucous retention cyst versus polyp. IMPRESSION: Cerebral volume loss and cycle of microvascular ischemic changes. No acute intracranial hemorrhage or transcortical infarction. Portions of the basilar and vertebral arteries are hyperdense. This is however similar to comparison exam. Aneurysm or dual echo ectasia cannot be completely excluded. Consider CTA for further evaluation as previously recommended. Agree with preliminary report. Dictated by: on 03/12/2021 at 6:19 Approved by: on 03/12/2021 at 6:27
--- NOTE | 2021-03-12 04:16 | DI.CT.S_ITS ---
PROCEDURE: CT CHEST W CON INDICATIONS: collapsed Right light with respiratory distress TECHNIQUE: After the administration of intravenous contrast, 5 mm thick sections acquired from the pulmonary apices to the posterior costophrenic angles. 1 mm axial lung, 5 mm thick coronal and sagittal reformats and 7 mm axial MIP were acquired. For radiation dose reduction, the following was used: automated exposure control, adjustment of mA and/or kV according to patient size. COMPARISON: None. FINDINGS: Image quality: Excellent. Lungs and pleura: The trachea is patent. There is opacification with endobronchial lesion within the right mainstem bronchi. The left lung airway is clear. There is collapse of the right middle and right lower lobe with portions of the right upper lobe which remain aerated. There is a 7 millimeter left upper lobe pulmonary nodule which is solid (series 3; image 142). Additional likely dependent atelectasis within the posterior aspect of the left lower lobe. Mediastinum: Heart size is mildly enlarged. There is rightward mediastinal shift. No pericardial effusion. Marked multi-vessel coronary vascular calcifications. There are a few enlarged mediastinal lymph nodes the largest is a subcarinal lymph node measuring 1.4 centimeters in short axis diameter (series 2; image 30). Thoracic aorta is normal in size. There is enlargement of the pulmonary artery measuring 4.6 centimeters in diameter. Esophagus is normal in caliber. No hiatal hernia. Bones and chest wall: No suspicious bony lesions. Multilevel degenerative changes of the spine. No vertebral body compression fractures. No axillary or supraclavicular adenopathy by size criteria. Thyroid gland demonstrates a 1.5 centimeter left thyroid lobe nodule. Abdomen: Visualized upper abdominal solid organs appear normal. Upper abdominal bowel loops are normal in caliber. IMPRESSION: Near complete collapse of the right lung with partial aeration of the right upper lobe. There is an endobronchial lesion noted in the right mainstem bronchus. Pulmonary consultation is advised for bronchoscopy. There is mediastinal shift to the right. Mild mediastinal adenopathy. Mild cardiomegaly with marked multi-vessel coronary vascular calcification. Enlargement of the main pulmonary artery to 4.2 centimeters. Recommend correlation for pulmonary hypertension. Agree with preliminary dictation. Dictated by: on 03/12/2021 at 6:08 Approved by: on 03/12/2021 at 6:18
[2021-03-12 04:22] LABS: Adenovirus Not Detected (Not Detect); B. parapertussis Not Detected (Not Detecte); Bordetella pertussis Not Detected (Not Detecte); Chlamydophila pneumoniae Not Detected (Not Detect); Coronavirus 229E Not Detected (Not Detect); Coronavirus HKU1 Not Detected (Not Detect); Coronavirus NL 63 Not Detected (Not Detect); Coronavirus OC43 Not Detected (Not Detect); Human Metapneumovirus Not Detected (Not Detect); Human Rhinovirus/Enterovirus Not Detected (Not Detect); Influenza A Not Detected (Not Detect); Influenza B Not Detected (Not Detect); Mycoplasma pneumoniae Not Detected (Not Detect); Parainfluenza Virus 1 Not Detected (Not Detect); Parainfluenza Virus 2 Not Detected (Not Detect); Parainfluenza Virus 3 Not Detected (Not Detect); Parainfluenza Virus 4 Not Detected (Not Detect); Respiratory Syncytial Virus Not Detected (Not Detect); SARS- CoV-2 Not Detected (Not Detecte)
[2021-03-12] MEDS: PIPERACILLIN/TAZO 4.5 GM in SODIUM CHLORIDE 0.9% 100 ML 200 ML IV (04:45)
[2021-03-12] MEDS: FUROSEMIDE 120 MG in SODIUM CHLORIDE 0.9% 50 ML 124 ML IV (04:45)
[2021-03-12 05:15] LABS: RBC Urine None Seen (0-5/HPF)
[2021-03-12 05:17] LABS: Appearance Urine UA CLEAR; Bilirubin Urine UA NEGATIVE (NEGATIVE); Color Urine UA YELLOW; Glucose Urine UA NEGATIVE (Negative); Ketones Urine UA NEGATIVE (NEGATIVE); Leukocyte Esterase Urine UA NEGATIVE (NEGATIVE); Nitrite Urine UA POSITIVE (Negative); Occult Blood Urine UA NEGATIVE (Negative); Protein Urine UA TRACE (Negative); Specific Gravity Urine UA 1.025 (1.000-1.035); Urobilinogen Urine UA 0.2 E.U./dL (0.2); pH Urine UA 5.5 (4.5-8.0)
[2021-03-12 05:18] LABS: Bacteria Urine Moderate (10-30); Hyaline Casts Urine 0-1/LPF; Mucus Urine 1+ (Negative); Squamous Epithelial Cell Urine 0-1 /HPF (0-5/HPF); WBC Urine 1-5/HPF (0-5/HPF)
[2021-03-12 05:19] LABS: Culture Indicated Urine Specimen Cultured
[2021-03-12 05:58] LABS: HCO3 ABG 40 mmol/L (22-26); PCO2 ABG 83.4 mmHg (35-45); PO2 ABG 69 mmHg (80-100); TCO2 ABG 43 mmol/L (21-31); pH ABG 7.29 (7.35-7.45)
[2021-03-12 05:59] LABS: Fractionated Inspired Oxygen 80; Oxygen Saturation ABG 90 % (95-100)
[2021-03-12] MEDS: SODIUM CHLORIDE 0.9% 1,000 ML 1000 ML IV (06:35)
[2021-03-12] MEDS: ETOMIDATE 2 MG/ML 10 ML VIAL 20 MG IV (06:40)
[2021-03-12] MEDS: SUCCINYLCHOLINE 200 MG/10 ML VIAL 100 MG IV (06:46)
[2021-03-12] MEDS: propofoL 200 MG/20 ML VIAL 60 MG IV ×2 (06:47→06:52)
--- NOTE | 2021-03-12 06:54 | DI.RAD.S_ITS ---
PROCEDURE: XR CHEST 1V INDICATIONS: post intubation TECHNIQUE: One view of the chest was acquired. COMPARISON: [facility], CT, CT CHEST W CON, 03/12/2021, 4:23. [facility], CR, XR CHEST 1V, 03/12/2021, 3:25. FINDINGS: Surgical changes and devices: Enteric tube is noted with the tip and side port overlying the upper abdomen likely within the proximal stomach. The side port is just distal to the gastroesophageal junction. The endotracheal tube is noted with the tip approximately 3.3 centimeters from the afua. Lungs and pleura: Near complete collapse of the right lung is again noted. Slight increased aeration of the right lower lungs with increased opacification of the right upper lungs. No focal consolidation in the left lobe. No pneumothorax. No large volume pleural effusion. Mild pulmonary vascular prominence of the left lobe. Mediastinum: Unchanged rightward mediastinal shift. Bones and chest wall: No acute osseous abnormality. Overlying soft tissues appear unremarkable. IMPRESSION: Endotracheal tube with the tip approximately 3 point centimeters from the afua. Enteric tube with the side port just distal to the gastroesophageal junction. Consider advancement. Slightly increased aeration of the right lung with increased opacification of the right lung with findings suggestive of near complete collapse of the right lung. There is rightward mediastinal shift. Dictated by: on 03/12/2021 at 7:08 Approved by: on 03/12/2021 at 7:12
[2021-03-12] MEDS: propofoL 1,000 MG/100 ML VIAL 4.209 MG IV (07:06)
--- NOTE | 2021-03-12 07:09 | PC.NURSE ---
Pt was on 80% fio2 on bipap. Pt spo2 to 86-88%. tried reposition pt. Rt in room and turned up fio2 at to 100%, Provider in room. Chose to intubate. Provider intubated with size 8 tube 24cm at lips, location verified with co2 detector, detector turned yellow. OG tube placed, 18 gibraltarian, Placed to low suction.
--- NOTE | 2021-03-12 07:13 | RT ---
Pt intubated at 0647 with #8.0 ETT, 24 at the lip.
[2021-03-12] MEDS: MIDAZOLAM 2 MG/2 ML VIAL IV (07:19)
--- NOTE | 2021-03-12 07:35 | RT ---
Pt placed on Vent post intubation. Et tube secured and bag mask unit at [facility] functional. Pt intubated by MD with glidescope without incident. ABG pending
[2021-03-12] MEDS: MIDAZOLAM 2 MG/2 ML VIAL (07:50)
[2021-03-12] MEDS: fentaNYL 1,000 MCG in DEXTROSE 5% IN WATER 230 ML 24.553 ML IV (07:59)
[2021-03-12 08:32] LABS: Fractionated Inspired Oxygen 100; HCO3 ABG 39 mmol/L (22-26); Oxygen Saturation ABG 88 % (95-100); PCO2 ABG 54.2 mmHg (35-45); PO2 ABG 54 mmHg (80-100); TCO2 ABG 40 mmol/L (21-31); pH ABG 7.46 (7.35-7.45)
== END 2021-03-12 09:53 | disposition short-term general hospital (02) ==
PROVIDERS: Emergency Medicine; Emergency Provider Emergency Medicine; PCP Internal Medicine
DX: J96.21 Acute and chronic respiratory failure with hypoxia (principal); J96.02 Acute respiratory failure with hypercapnia; R41.82 Altered mental status, unspecified; E66.01 Morbid (severe) obesity due to excess calories; Z20.822 Contact with and (suspected) exposure to COVID-19
CPT/HCPCS: 31500; 36415; 36600; 70450; 71045; 71260; 80053; 81001; 82805; 83605; 83735; 83880; 84484; 85025; 87040; 87070; 87077; 87086; 87186; 87205; 87633; 87635; 93005; 93010; 94002; 94660; 94799; 96361; 96365; 96366; 96367; 96368; 96375; 99285; 99291; 99292; C9803; J0330; J1940; J2250; J2543; J2704; J3010; Q9967

== ENCOUNTER → 2021-07-26 08:40 | Outpatient (ROUT) | payer MEDICARE, MEDICAID, SELFPAY ==
[2019-02-13 01:35] VITALS: BMI 48.7
[2021-03-12 06:50] VITALS: PULSE 86; RESP 25; O2SAT 93
[2021-07-26 10:11] LABS: Add Manual Diff / Slide Review NO; Basophils Absolute Auto 100 /uL (0-100); Basophils Percent Auto 0.8 % (0-2); Eosinophils Absolute Auto 200 /uL (0-450); Eosinophils Percent Auto 3.2 % (2-4); Hematocrit 41.3 % (36-46); Hemoglobin 12.9 g/dL (12.0-16.0); Lymphocytes Absolute Auto 800 /uL (1100-4500); Lymphocytes Percent Auto 12.6 % (25-40); Mean Corpuscular HGB Conc 31.2 % (30-36); Mean Corpuscular Hemoglobin 28.9 PG (26-34); Mean Corpuscular Volume 92.8 fL (80-100); Monocytes Absolute Auto 600 /uL (0-900); Monocytes Percent Auto 8.8 % (3-14); Neutrophils Absolute Auto 4800 /uL (1500-7000); Neutrophils Percent Auto 74.6 % (50-75); Platelet Count 182 X10^3/uL (150-400); Red Blood Cell Count 4.45 X10^6/uL (4.0-5.2); Red Cell Distribution Width 16.3 % (11.6-14.8); White Blood Cell Count 6.5 X10^3/uL (4.5-11.0)
[2021-07-26 10:17] LABS: Hemoglobin A1C% w Est Avg Glu 6.1 % (4.0-6.0)
[2021-07-26 10:30] LABS: Alanine Aminotransferase 10 IU/L (<35); Albumin 3.6 g/dL (3.5-5.0); Albumin Globulin Ratio 1.2 (1.0-2.8); Alkaline Phosphatase 63 U/L (38-126); Aspartate Aminotransferase 20 IU/L (14-36); BUN Creatinine Ratio 34.4 (6-22); Bilirubin Total 0.5 mg/dL (0.2-1.3); Blood Urea Nitrogen 22 mg/dL (7-17); Calcium 8.5 mg/dL (8.4-10.2); Carbon Dioxide 34 mmol/L (22-32); Chloride 101 mmol/L (98-107); Estimated Glomerular Filt Rate > 60.0 mL/min (>60); Glucose 118 mg/dL (80-110); HEMOLYSIS < 15 (0-50); NT-proBNP (BNP-Adult 18+) 274 pg/mL (<125); Potassium 4.5 mmol/L (3.4-5.1); Sodium 140 mmol/L (137-145); Total Protein 6.6 g/dL (6.3-8.2)
== END ==
PROVIDERS: PCP Internal Medicine; Visit Provider Nurse Practitioner Family
DX: I50.9 Heart failure, unspecified (principal); E11.9 Type 2 diabetes mellitus without complications; Z51.81 Encounter for therapeutic drug level monitoring
CPT/HCPCS: 36415; 80053; 83036; 83880; 85025

== ENCOUNTER 2021-08-03 22:43 | Observation (INO) | payer MEDICARE, MEDICAID, SELFPAY ==
[2019-02-13 01:35] VITALS: BMI 48.7
[2021-03-12 06:50] VITALS: PULSE 86; RESP 25; O2SAT 93
[2021-08-03] VITALS (7 sets, daily range): BP systolic 113; BP diastolic 57; PULSE 56–64; RESP 15–28; TEMP 36.6; O2SAT 80–95; BMI 54.1
--- NOTE | 2021-08-03 23:11 | DI.RAD.S_ITS ---
PROCEDURE: XR CHEST 1V INDICATIONS: chest pain TECHNIQUE: One view of the chest was acquired. COMPARISON: [facility], CR, XR CHEST 1V, 03/12/2021, 6:57. FINDINGS: Surgical changes and devices: None. Lungs and pleura: Bilateral perihilar/central lung opacities noted. No pleural effusions or pneumothorax. Mediastinum: Mediastinal contours appear normal. Heart is enlarged Bones and chest wall: No suspicious bony lesions. Overlying soft tissues appear unremarkable. IMPRESSION: Cardiomegaly with bilateral perihilar opacities suspicious for pulmonary edema/CHF. Dictated by: Melinda Smith MD, PhD on 08/04/2021 at 8:09 Approved by: Melinda Smith MD, PhD on 08/04/2021 at 8:09
[2021-08-03 23:12] LABS: COVID19 -Nasal RAPID Negative (Negative)
[2021-08-03 23:23] LABS: Add Manual Diff / Slide Review NO; Basophils Absolute Auto 100 /uL (0-100); Basophils Percent Auto 2.1 % (0-2); Eosinophils Absolute Auto 200 /uL (0-450); Eosinophils Percent Auto 3.5 % (2-4); Hematocrit 40.4 % (36-46); Hemoglobin 12.6 g/dL (12.0-16.0); Lymphocytes Absolute Auto 1000 /uL (1100-4500); Lymphocytes Percent Auto 15.9 % (25-40); Mean Corpuscular HGB Conc 31.2 % (30-36); Mean Corpuscular Hemoglobin 28.9 PG (26-34); Mean Corpuscular Volume 92.7 fL (80-100); Monocytes Absolute Auto 500 /uL (0-900); Monocytes Percent Auto 8.6 % (3-14); Neutrophils Absolute Auto 4300 /uL (1500-7000); Neutrophils Percent Auto 69.9 % (50-75); Platelet Count 179 X10^3/uL (150-400); Red Blood Cell Count 4.36 X10^6/uL (4.0-5.2); Red Cell Distribution Width 15.9 % (11.6-14.8); White Blood Cell Count 6.2 X10^3/uL (4.5-11.0)
[2021-08-03 23:26] LABS: Alanine Aminotransferase 11 IU/L (<35); Albumin 3.6 g/dL (3.5-5.0); Albumin Globulin Ratio 1.2 (1.0-2.8); Alkaline Phosphatase 64 U/L (38-126); Aspartate Aminotransferase 17 IU/L (14-36); BUN Creatinine Ratio 31.3 (6-22); Bilirubin Total 0.4 mg/dL (0.2-1.3); Blood Urea Nitrogen 25 mg/dL (7-17); Calcium 8.6 mg/dL (8.4-10.2); Chloride 100 mmol/L (98-107); Creatine Kinase 31 U/L (30-135); Estimated Glomerular Filt Rate > 60.0 mL/min (>60); Globulin 3.1 g/dL (1.7-4.1); Glucose 115 mg/dL (80-110); HEMOLYSIS < 15 (0-50); Lipase 73 U/L (23-300); Sodium 140 mmol/L (137-145); Total Protein 6.7 g/dL (6.3-8.2)
--- NOTE | 2021-08-03 23:35 | ED_ITS ---
HPI - SOB/Dyspnea General Chief Complaint: Shortness of Breath/Dyspnea Stated Complaint: Low O2 Time Seen by Provider: 08/03/21 23:27 Source: patient and EMS Mode of arrival: EMS Limitations: no limitations History of Present Illness HPI Narrative: Patient brought in by ambulance from [facility] for hypoxia. 78% room air. Placed on oxygen and improved. No breathing treatment. Patient has history of COPD. Patient admitted here February 2021 for respiratory failure and intubated. Patient is on oxygen nasal cannula as needed. Denies any chest pain. No recent illness no fever chills. Has dry cough. Related Data Home Medications Medication Instructions Recorded Confirmed aspirin 81 mg tablet,delayed 81 mg PO DAILY 04/12/18 08/04/21 release metformin 500 mg tablet 500 mg PO BID 04/12/18 02/13/19 (Glucophage) oxybutynin chloride 10 mg 10 mg PO DAILY 04/12/18 02/13/19 tablet,extended release 24 hr ursodiol 300 mg capsule 300 mg PO BID 04/12/18 08/04/21 digoxin 125 mcg (0.125 mg) tablet 0.125 mg PO QPM 06/12/18 02/13/19 (Digitek) warfarin 5 mg tablet 4 mg PO QPM 06/17/18 02/13/19 gabapentin 300 mg capsule 300 mg PO TID 09/04/18 02/13/19 ipratropium 20 mcg-albuterol 100 1 puff INHALATION Q8H 09/04/18 02/13/19 mcg/actuation mist for inhalation (Combivent Respimat) triamcinolone acetonide 0.1 % 1 applic TOPICAL BID 09/04/18 02/13/19 topical ointment atorvastatin 80 mg tablet 80 mg PO BEDTIME 09/25/18 08/04/21 hydrocodone 7.5 mg-acetaminophen 1 tab PO Q8H PRN 09/25/18 02/13/19 325 mg tablet torsemide 20 mg tablet 1 tab PO QAM 09/25/18 02/13/19 ascorbic acid (vitamin C) 500 mg See Rx Instructions .ROUTE .COMPLEX 02/13/19 02/13/19 tablet cetirizine 10 mg tablet (Allergy 1 tab PO DAILY 02/13/19 08/04/21 Relief (cetirizine)) ferrous sulfate 325 mg (65 mg 1 tab PO QAM 02/13/19 02/13/19 iron) tablet Ventolin HFA 2 puff INHALATION Q4HR PRN 08/04/21 08/04/21 diltiazem HCl 120 mg 180 mg PO DAILY 08/04/21 capsule,extended release 24 hr donepezil 10 mg tablet 20 mg PO QAM 08/04/21 08/04/21 insulin glargine 100 unit/mL (3 9 unit SUBCUT BEDTIME 08/04/21 08/04/21 mL) subcutaneous pen (Lantus Solostar U-100 Insulin) insulin lispro 100 unit/mL See Rx Instructions .ROUTE .COMPLEX 08/04/21 08/04/21 subcutaneous pen (Humalog KwikPen (U-100) Insulin) melatonin 1 mg PO DAILY PRN 08/04/21 08/04/21 metoprolol tartrate 25 mg tablet 12.5 mg PO BID 08/04/21 08/04/21 nystatin 100,000 unit/gram topical 100,000 unit TOPICAL BID 08/04/21 08/04/21 powder ondansetron HCl 4 mg tablet 4 mg PO Q6HR PRN 08/04/21 08/04/21 polyethylene glycol 17 g PO Q12HR PRN 08/04/21 08/04/21 potassium chloride 10 mEq 20 meq PO DAILY 08/04/21 capsule,extended release Previous Rx's Medication Instructions Recorded hydrocodone 7.5 mg-acetaminophen 1 tab PO Q6-8H PRN #30 tab 02/20/19 325 mg tablet losartan 25 mg tablet 25 mg PO 2100 #30 tab 02/20/19 oxybutynin chloride 5 mg tablet 5 mg PO BID #30 tab 02/20/19 potassium chloride 10 mEq 10 meq PO DAILYCC #30 tab 02/20/19 tablet,extended release(part/cryst) (Klor-Con M) sennosides 8.6 mg tablet (senna) 17.2 mg PO BEDTIME PRN #30 tab 02/20/19 ursodiol 300 mg capsule 300 mg PO BID #30 cap 02/20/19 warfarin 5 mg tablet (Coumadin) 5 mg PO 1700 #30 tab 02/20/19 Allergies Allergy/AdvReac Type Severity Reaction Status Date / Time captopril [CAPTOPRIL] Allergy Unknown Verified 09/25/18 14:09 nabumetone [NABUMETONE] Allergy Unknown Rash Verified 09/25/18 14:09 Review of Systems Review of Systems Narrative: GENERAL: Denies chills, fatigue, malaise, fever, sweats. HEENT: Denies sinus pain, ear pain, sore throat RESPIRATORY: Complains dyspnea, cough CARDIOVASCULAR: Denies chest pain, palpitations GASTROINTESTINAL: Denies nausea, vomiting, abdominal pain : Denies dysuria, frequency, hematuria MUSCULOSKELETAL: denies muscle or bony pain SKIN: Denies rash, skin lesions NEUROLOGIC: Denies weakness, numbness ROS Unobtainable: All systems reviewed & are unremarkable except as noted in HPI and below Patient History Medical History (Updated 08/04/21 @ 00:00 by ) Atrial fibrillation Cholelithiasis Chronic anticoagulation Chronic respiratory failure with hypoxia and hypercapnia Depression Diabetes Fracture of left ankle Hyperlipidemia Hypertension Hypertension Inguinal hernia Iron deficiency anemia Lumbar degenerative disc disease Morbid obesity Obesity Obesity hypoventilation syndrome Osteoarthritis Pneumococcal meningitis Prolapsed bladder Surgical History History of abdominoplasty History of gastric bypass Social History household members: none Smoking Status: Current every day smoker alcohol intake: former additional social history: lives alone Smoking Status: Current every day smoker tobacco type: cigarettes alcohol intake frequency: 0-2 drinks per day Substance Use Type: does not use Exam Narrative Exam Narrative: GENERAL: in no distress, not toxic not dyspneic HEAD: Normocephalic. EYES: Pupils equal round No scleral icterus. No injection no discharge ENT: Mucous membranes moist. NECK: Trachea midline. CARDIOVASCULAR: Regular rate and rhythm without murmurs RESPIRATORY: Clear to auscultation. Breath sounds equal bilaterally. No wheezes, rales, or rhonchi. However, diminished lung sounds. Speaking had near full sentences. GASTROINTESTINAL: Abdomen soft, non-tender EXTREMITIES: No gross deformities. BACK: No flank tenderness. NEURO: AOx4. SKIN: Warm and dry PSYCH: Not anxious, is cooperative Initial Vital Signs Initial Vital Signs: Vital Signs Pulse Rate 64 08/03/21 22:47 Pulse Oximetry 80 L 08/03/21 22:47 Course Course Course Narrative: No new issues during course of stay Decision to Admit Date: 08/03/21 Decision to Admit time: 23:37 Orders Ordered: ED Orders 08/03/21 22:50 COVID19 -Nasal swab/Pre-Proc Stat 08/03/21 23:05 Complete Blood Count AUTO DIFF Stat Comprehensive Metabolic Panel Stat Lipase Stat NT-proBNP (BNP-Adult 18+) Stat Troponin & CK Cardiac Panel Stat 08/03/21 23:11 XR chest 1V Stat EKG-12 Lead Stat 08/03/21 23:12 RT Consult Eval and Treat NOW 08/04/21 00:00 COVID19 - ADMIT (TRAUMA REGISTRAR swab/PCR) Stat Acetaminophen (Acetaminophen 325 Mg Tablet) 650 mg PO Q6HR PRN PRN Reason: Fever/Mild Pain (1-3) Al Hydrox/Mg Hydrox/Simethicone (Mag Hydrox/Alum/Simeth 30 Ml Udc) 30 ml PO Q6HR PRN PRN Reason: Dyspepsia Albuterol/Ipratropium (Albuterol/Ipratropium 3 Ml Ampul) 3 ml INH [id number] LORNA Dextrose (Dextrose 50 % In Water 25 Gm/50 Ml Syringe) 25 gm IV PRN PRN PRN Reason: Hypoglycemia Insulin Human Lispro (Insulin Lispro 100 Unit/Ml 3ml Vial) 0 unit SUBCUT ACHS LORNA; Protocol Ketorolac Tromethamine (Ketorolac 10 Mg Tablet) 10 mg PO Q6HR PRN PRN Reason: Pain, Moderate (4-6) Stop: 08/09/21 02:40 Magnesium Hydroxide (Magnesium Hydroxide 30 Ml Udc) 30 ml PO DAILY PRN PRN Reason: Constipation Naloxone HCl (Naloxone 0.4 Mg/Ml Vial) 0.2 mg IV Q2MIN PRN PRN Reason: Opiate Reversal Ondansetron HCl (Ondansetron 4 Mg/2 Ml Inj) 4 mg IV Q8HR PRN PRN Reason: Nausea And Vomiting Prednisone (Prednisone 20 Mg Tablet) 40 mg PO DAILY LORNA Sennosides (Sennosides 8.6 Mg Tablet) 17.2 mg PO BEDTIME LORNA Discontinued Medications Albuterol/Ipratropium (Albuterol/Ipratropium 3 Ml Ampul) 3 ml INH NOW ONE Stop: 08/03/21 23:34 Last Admin: 08/03/21 23:53 Dose: 3 ml Documented by: ALIYAH Reevaluation(s) Reevaluation #1: No new issues. Patient improved with DuoNeb. Understands and agrees for admit Time: : Consultations Consultation #1: Spoke with Dariana hospitalist, will admit Time: Vital Signs Vital signs: Vital Signs - 8 hr 08/03/21 22:47 08/03/21 22:49 08/03/21 22:54 Temperature 97.8 F Pulse Rate 64 62 62 Respiratory Rate 20 22 Blood Pressure 113/57 L 113/57 L Pulse Oximetry 80 L 91 93 08/03/21 23:00 08/03/21 23:09 08/03/21 23:30 Temperature Pulse Rate 61 56 L Respiratory Rate 28 H 26 H Blood Pressure Pulse Oximetry 94 94 95 08/03/21 23:53 08/04/21 00:00 08/04/21 00:30 Temperature Pulse Rate 57 L 58 L 72 Respiratory Rate 15 24 19 Blood Pressure Pulse Oximetry 95 96 90 L 08/04/21 01:00 08/04/21 01:30 Temperature Pulse Rate 74 70 Respiratory Rate 18 19 Blood Pressure Pulse Oximetry 92 92 MDM - SOB/Dyspnea Differential Diagnosis Differential diagnosis: Likely acute exacerbation of chronic obstructive airways disease, congestive heart failure and community acquired pneumonia Medical Records Medical records narrative: [address] [address] Echocardiography Report Signed Patient: Baudilio Donahue MR#: [id number] : 1950 Acct:[id number] Age/Sex: 67 / F Date of Service: 06/12/18 Loc: [facility] 101-1 Accession Number: [id number] ?? Procedure: EC echo limited Ordering Provider: Jarrod Bella M.D. ? [facility] +---------+? Hospital? +---------+ : ? :? [address] [place] [address] ? : ? : : ? :? [place], [place] ? : ? : : ? :? [id number] ? : ? : : ? : ? Phone: [phone] ? : [phone]? [phone]? +---------+ ? Echocardiogram Report + + :Name: RUDY BAUDILIO J ? Study Date: 06/12/2018 ? Height: 66 in? : :Hospital ? ? Exam Location: [facility] ? Weight: 300 lb : : ? Gender: Female ? BSA: 2.4 m2? ? : :: 1950? Age: 67 yrs? BP: 100/50 mmHg: :Reason For Study: CHF? : :Ordering Physician: Dr. Ren? : :Michael ? Performed By: Laura Yepez? : :Referring: JARROD BELLA ? : + + Interpretation Summary A two-dimensional transthoracic echocardiogram was performed in limited views only to assess left ventricular function. The study quality was technically difficult and somewhat limited due to patient body habitus, supine position and inability to cooperate. ? The left ventricle is not well visualized but grossly appears normal in size and left ventricular systolic function is probably normal with the ejection fraction grossly estimated to be 60-65%. There are no obvious focal wall motion abnormalities noted but poor endocardial definition reduces the sensitivity for the detection of such. Systolic function is likely slightly improved compared to the previous study. ? ? Procedure: ? A two-dimensional transthoracic echocardiogram was performed in limited views only to assess left ventricular function. The study quality was technically difficult and somewhat limited due to patient body habitus, supine position and inability to cooperate. Comparison is made with the echocardiogram of 04/13/2018. A contrast injection of Definity was performed to improve assessment of LV function. The heart rate ranged between 65-72 bpm during the study. Left Ventricle: ? The left ventricle is not well visualized. The left ventricle is grossly normal size. Left ventricular systolic function is probably normal. The ejection fraction is estimated to be 60-65%. There are no obvious focal wall motion abnormalities noted but poor endocardial definition reduces the sensitivity for the detection of such. This is slightly improved compared to the previous study. Pericardium/ Pleura ? No effusions noted however poor image quality reduces the detection of such. ? Reading Physician:PM ? ? Lab Data Result diagrams: 08/03/21 23:05 08/03/21 23:05 Labs: Lab Results 09/07/1608/03/21 08/03/21 Range/Units 22:50 23:05 23:05 WBC 6.2 (4.5-11.0) X10^3/uL RBC 4.36 (4.0-5.2) X10^6/uL Hgb 12.6 (12.0-16.0) g/dL Hct 40.4 (36-46) % MCV 92.7 (80-100) fL MCH 28.9 (26-34) PG MCHC 31.2 (30-36) % RDW 15.9 H (11.6-14.8) % Plt Count 179 (150-400) X10^3/uL Neut % (Auto) 69.9 (50-75) % Lymph % (Auto) 15.9 L (25-40) % [place] % (Auto) 8.6 (3-14) % Eos % (Auto) 3.5 (2-4) % Baso % (Auto) 2.1 H (0-2) % Neut # (Auto) 4300 (3525-2055) /uL Lymph # (Auto) 1000 L (3343-4463) /uL [place] # (Auto) 500 (0-900) /uL Eos # (Auto) 200 (0-450) /uL Baso # (Auto) 100 (0-100) /uL Sodium 140 (137-145) mmol/L Potassium 5.0 (3.4-5.1) mmol/L Chloride 100 (98-107) mmol/L Carbon Dioxide 39 H (22-32) mmol/L BUN 25 H (7-17) mg/dL Creatinine 0.80 (0.52-1.04) mg/dL Estimated GFR > 60.0 (>60) mL/min BUN/Creatinine Ratio 31.3 H (6-22) Glucose 115 H (80-110) mg/dL Calcium 8.6 (8.4-10.2) mg/dL Total Bilirubin 0.4 (0.2-1.3) mg/dL AST 17 (14-36) IU/L ALT 11 (<35) IU/L Alkaline Phosphatase 64 (38-126) U/L Total Creatine Kinase 31 (30-135) U/L CK-MB (CK-2) TNP CK-MB (CK-2) Rel Index TNP Troponin I < 0.012 (0.01-0.034) ng/mL NT-Pro-B Natriuret Pep (<125) pg/mL Total Protein 6.7 (6.3-8.2) g/dL Albumin 3.6 (3.5-5.0) g/dL Globulin 3.1 (1.7-4.1) g/dL Albumin/Globulin Ratio 1.2 (1.0-2.8) Lipase 73 (23-300) U/L SARS-CoV-2 (PCR) Negative (Negative) 08/03/21 08/04/21 Range/Units 23:05 00:00 WBC (4.5-11.0) X10^3/uL RBC (4.0-5.2) X10^6/uL Hgb (12.0-16.0) g/dL Hct (36-46) % MCV (80-100) fL MCH (26-34) PG MCHC (30-36) % RDW (11.6-14.8) % Plt Count (150-400) X10^3/uL Neut % (Auto) (50-75) % Lymph % (Auto) (25-40) % [place] % (Auto) (3-14) % Eos % (Auto) (2-4) % Baso % (Auto) (0-2) % Neut # (Auto) (2983-2254) /uL Lymph # (Auto) (9213-3772) /uL [place] # (Auto) (0-900) /uL Eos # (Auto) (0-450) /uL Baso # (Auto) (0-100) /uL Sodium (137-145) mmol/L Potassium (3.4-5.1) mmol/L Chloride (98-107) mmol/L Carbon Dioxide (22-32) mmol/L BUN (7-17) mg/dL Creatinine (0.52-1.04) mg/dL Estimated GFR (>60) mL/min BUN/Creatinine Ratio (6-22) Glucose (80-110) mg/dL Calcium (8.4-10.2) mg/dL Total Bilirubin (0.2-1.3) mg/dL AST (14-36) IU/L ALT (<35) IU/L Alkaline Phosphatase (38-126) U/L Total Creatine Kinase (30-135) U/L CK-MB (CK-2) CK-MB (CK-2) Rel Index Troponin I (0.01-0.034) ng/mL NT-Pro-B Natriuret Pep 773 H (<125) pg/mL Total Protein (6.3-8.2) g/dL Albumin (3.5-5.0) g/dL Globulin (1.7-4.1) g/dL Albumin/Globulin Ratio (1.0-2.8) Lipase (23-300) U/L SARS-CoV-2 (PCR) Negative (Negative) Imaging Data Chest x-ray: Radiologist's Impression: Read by overnight radiologist impression cardiomegaly with mild central opacities. This could represent mild edema or pneumonia. ECG Data Interpretation: Sinus bradycardia no ST elevation or depression. Rate 59 MDM Narrative Medical decision making narrative: Appropriate for admission for possible diuresis as well COPD exacerbation. Patient high risk of respiratory failure given past medical history Discharge Plan Departure Patient Disposition: Admitted as Observation Clinical Impression: Acute exacerbation of chronic obstructive airways disease Admit Date/Time: 08/04/21 01:40 Admit Provider: Dariana Lu
[2021-08-03 23:38] LABS: Troponin I < 0.012 ng/mL (0.01-0.034)
[2021-08-03 23:41] LABS: Carbon Dioxide 39 mmol/L (22-32)
[2021-08-03] MEDS: ALBUTEROL/IPRATROPIUM 3 ML AMPUL INH (23:53)
[2021-08-03 23:58] LABS: NT-proBNP (BNP-Adult 18+) 773 pg/mL (<125)
[2021-08-04] VITALS (17 sets, daily range): BP systolic 105–140; BP diastolic 50–71; PULSE 58–83; RESP 18–24; TEMP 36.1; O2SAT 90–97; BMI 54.1
[2021-08-04 01:06] LABS: COVID19 - ADMIT (NP swab/PCR) Negative (Negative)
[2021-08-04 03:20] LABS: Magnesium 2.3 mg/dL (1.6-2.3)
[2021-08-04 03:54] LABS: Hemoglobin A1C% w Est Avg Glu 6.1 % (4.0-6.0)
--- NOTE | 2021-08-04 04:11 | PC.NURSE ---
Patient admitted to room 210 per stretcher from ER; transported into bed with Santy lift. Patient arouses but falls back to sleep between questions and needs continual prompts to wake up to answer questions. Is oriented to self, birthdate and age. Initially stated she didn't remember why she was here but later said she had breathing problems. Breath sounds diminished but CTA with sat of 94% on oxygen at 4L/min per NC. HRR with telemetry reading of SR w/1st degree AVB. Denied nausea. BT hypoactive. Wearing an incontinent pad and presumed to be incontinent of B&B. Will need to be repositioned q2h as, due to obesity, is not able to move well on her own. Was able to minimally lift/move extremities. Denied pain. Fall risk score is high and bed alarm is activated. Bilateral calf SCD's applied. Attempted to orient to bed controls and call light but will need reinforced teaching when more awake.
[2021-08-04 06:33] LABS: INR 1.1 (0.9-1.3)
[2021-08-04 06:39] LABS: BUN Creatinine Ratio 35.5 (6-22); Blood Urea Nitrogen 22 mg/dL (7-17); Calcium 8.6 mg/dL (8.4-10.2); Carbon Dioxide 38 mmol/L (22-32); Chloride 100 mmol/L (98-107); Estimated Glomerular Filt Rate > 60.0 mL/min (>60); Glucose 134 mg/dL (80-110); HEMOLYSIS < 15 (0-50); Potassium 4.7 mmol/L (3.4-5.1); Sodium 140 mmol/L (137-145)
[2021-08-04 06:51] LABS: NT-proBNP (BNP-Adult 18+) 674 pg/mL (<125); Troponin I < 0.012 ng/mL (0.01-0.034)
--- NOTE | 2021-08-04 07:03 | PM.HP.1 ---
History of Present Illness History of Present Illness Date Patient Seen: 08/04/21 Time Patient Seen: 02:42 Chief complaint: Low O2 Narrative: Patient is 70-year-old female Alem Sharif brought in by ambulance from [facility] for hypoxia on 78% room air.? Placed on oxygen and improved.? No breathing treatment.? Patient has history of chronic hypoxic and hypercapnic respiratory failure, morbid obesity with associated hypoventilation syndrome, COPD, diabetes, chronic pain with opioid pain management, atrial fibrillation not currently anticoagulated, mild dementia, and COPD.? Patient seen in ED here February 2021 for respiratory failure, intubated, and transferred to [place], in that note Dr. Adamson noted that the patient was on home oxygen up to 2-4 L nasal cannula.?ED Noted today that she was not on home 02. Prior records note non-adherence with oxygen therapy, patient has verbalized in the past that she was told that she does not need to use oxygen or CPAP.? Patient denied any chest pain, recent illness, fever, chills, ordry cough. ?Current 1 pack per day smoker. It is unknown if patient uses supplemental oxygen or CPAP at the [facility]. Patient also denies fever, chills, abdominal pain, gastrointestinal distress, dysuria, hematuria, new rash, malaise, myalgia, and myopathy. No known recent illness or hospitalizations.? Attempts at further evaluation of ROS and HPI or inhibited due to patient's lethargic demeanor, patient refused to open her eyes or answer multiple questions upon admit. Patient's vital signs upon admit BP stable 113/57, HR 74 RR 18, O2 saturation 92% on 3.5 L nasal cannula. Patient CBC was unremarkable, BUN 20 HC03 39, glucose 115. Should be noted that BUN have been in the 20s for all of 2020, HC03 has been in 30s x2 years. BUN was slightly elevated at 773, initial troponin and lipase was unremarkable. Patient's EKG was sinus bradycardia or with a rate [address] or T-wave changes. Chest x-ray demonstrated cardiomegaly with mild central opacities, possible pulmonary edema or pneumonia. Patient admitted for acute on chronic respiratory failure with hypoxia and hypercapnia, in the setting COPD exacerbation. Patient History Medical History Atrial fibrillation Cholelithiasis Chronic anticoagulation Chronic respiratory failure with hypoxia and hypercapnia Depression Diabetes Fracture of left ankle Hyperlipidemia Hypertension Hypertension Inguinal hernia Iron deficiency anemia Lumbar degenerative disc disease Morbid obesity Obesity Obesity hypoventilation syndrome Osteoarthritis Pneumococcal meningitis Prolapsed bladder Surgical History History of abdominoplasty History of gastric bypass Family & Social History Family History Mother Heart disease Father No problems noted. Social History: household members none Prior Living Arrangements Assisted Living Safety & Behavioral: Feels Safe in Current Yes Environment Been Physically Hurt or No Threatened By a Person Tobacco & Substance use: Tobacco type cigarettes Smoking Status Former smoker alcohol intake former alcohol intake frequency 0-2 drinks per day Substance Use Type does not use Meds Home Medications and Allergies Home Medications Medication Instructions Recorded Confirmed Type aspirin 81 mg tablet,delayed 81 mg PO DAILY 04/12/18 08/04/21 History release ursodiol 300 mg capsule 300 mg PO BID 04/12/18 08/04/21 History gabapentin 300 mg capsule 300 mg PO TID 09/04/18 08/04/21 History triamcinolone acetonide 0.1 % 1 applic TOPICAL BID 09/04/18 08/04/21 History topical ointment atorvastatin 80 mg tablet 80 mg PO BEDTIME 09/25/18 08/04/21 History torsemide 20 mg tablet 1 tab PO QAM 09/25/18 08/04/21 History cetirizine 10 mg tablet (Allergy 1 tab PO DAILY 02/13/19 08/04/21 History Relief (cetirizine)) ferrous sulfate 325 mg (65 mg 1 tab PO QAM 02/13/19 08/04/21 History iron) tablet Ventolin HFA 2 puff INHALATION Q4HR PRN 08/04/21 08/04/21 History acetaminophen 325 mg tablet 650 mg PO Q6H PRN 08/04/21 08/04/21 History acetaminophen 500 mg tablet 1,000 mg PO BID 08/04/21 08/04/21 History diltiazem HCl 120 mg 180 mg PO DAILY 08/04/21 08/04/21 History capsule,extended release 24 hr donepezil 10 mg tablet 20 mg PO QAM 08/04/21 08/04/21 History fluticasone fur. 100 mcg-umeclid 1 inh INHALATION DAILY 08/04/21 08/04/21 History 62.5 mcg-vilant 25 mcg inhalat.powder insulin glargine 100 unit/mL (3 9 unit SUBCUT BEDTIME 08/04/21 08/04/21 History mL) subcutaneous pen (Lantus Solostar U-100 Insulin) insulin lispro 100 unit/mL 1 sliding scale dose SUBCUT 08/04/21 08/04/21 History subcutaneous pen USEASDIRECTD loperamide 2 mg tablet 2 mg PO Q2H PRN 08/04/21 08/04/21 History melatonin 1 mg PO DAILY PRN 08/04/21 08/04/21 History metoprolol tartrate 25 mg tablet 12.5 mg PO BID 08/04/21 08/04/21 History nystatin 100,000 unit/gram topical 100,000 unit TOPICAL BID 08/04/21 08/04/21 History powder ondansetron HCl 4 mg tablet 4 mg PO Q6HR PRN 08/04/21 08/04/21 History pantoprazole 20 mg tablet,delayed 20 mg PO DAILY 08/04/21 08/04/21 History release polyethylene glycol 17 g PO Q12HR PRN 08/04/21 08/04/21 History potassium chloride 10 mEq 20 meq PO DAILYCC 08/04/21 08/04/21 History tablet,extended release(part/cryst) (Klor-Con M) sennosides 8.6 mg tablet (senna) 17.2 mg PO Q12H PRN 08/04/21 08/04/21 History Allergies Allergy/AdvReac Type Severity Reaction Status Date / Time captopril [CAPTOPRIL] Allergy Unknown Verified 09/25/18 14:09 nabumetone [NABUMETONE] Allergy Unknown Rash Verified 09/25/18 14:09 Review of Systems Review of Systems Narrative: ROS and HPI impaired due to patient's lethargic disposition likely related to chronic dementia. Exam Vital Signs (past 8 hours): - 08/03/21 23:09 08/03/21 23:30 08/03/21 23:53 Temperature Pulse Rate 56 L 57 L Respiratory Rate 26 H 15 Blood Pressure Pulse Oximetry 94 95 95 08/04/21 00:00 08/04/21 00:30 08/04/21 01:00 Temperature Pulse Rate 58 L 72 74 Respiratory Rate 24 19 18 Blood Pressure Pulse Oximetry 96 90 L 92 08/04/21 01:30 08/04/21 02:00 08/04/21 02:22 Temperature Pulse Rate 70 67 83 Respiratory Rate 19 18 24 Blood Pressure 140/65 Pulse Oximetry 92 92 93 08/04/21 02:40 08/04/21 02:52 Temperature 97.0 F L Pulse Rate 70 Respiratory Rate 18 Blood Pressure 107/58 L Pulse Oximetry 94 94 Oxygen Delivery Method Nasal Cannula Oxygen Flow Rate 4 Narrative Exam Narrative: General: Patient is a well-developed, well-nourished obese female, unwilling to cooperate in ROS, HPI, or exam, in no distress at this time, lying lethargically in bed with eyes closed. HEENT: Normocephalic, atraumatic, extraocular muscles intact, oral pharynx is clear and mucous membranes are moist. Neck is supple and symmetric, trachea is midline, no adenopathy, no thyroid enlargement, nontender, no masses palpated. Negative for JVD Chest: Normal AP diameter and contour without kyphoscoliosis, no nasal flaring, retractions, or tachypneic labored Lungs: Auscultation of all lung kruger are clear without adventitious sounds, wheezes, rhonchi, or rales, dimished but equal. Cardio: regular rate and rhythm without murmur, rubs, or gallops, no carotid bruit, no cardiac pulsations present. Abdomen: Soft nontender, negative for organomegaly, or masses. Bowel sounds are present in all 4 quadrants without guarding or rebound, no CVA tenderness. Musculoskeletal: Muscle strength and tone are equal within normal limits, no deformity, crepitus, effusions, cyanosis, clubbing or edema present. Full range of motion intact radial and pedal pulses are normal. Skin: Warm dry and intact without rashes, ulcerations or petechiae. Neuro: appears orientated to self & place unable to assess cranial nerves. Psych: Patient is uncooperative, lethargic, unwilling to open eyes or make eye contact, or participate in care Objective Labs Result Diagrams: 08/03/21 23:05 08/04/21 06:01 Labs: Laboratory Results - last 24 hr 08/03/21 08/03/21 08/03/21 22:50 23:05 23:05 WBC 6.2 RBC 4.36 Hgb 12.6 Hct 40.4 MCV 92.7 MCH 28.9 MCHC 31.2 RDW 15.9 H Plt Count 179 Neut % (Auto) 69.9 Lymph % (Auto) 15.9 L [place] % (Auto) 8.6 Eos % (Auto) 3.5 Baso % (Auto) 2.1 H Neut # (Auto) 4300 Lymph # (Auto) 1000 L [place] # (Auto) 500 Eos # (Auto) 200 Baso # (Auto) 100 PT INR Sodium 140 Potassium 5.0 Chloride 100 Carbon Dioxide 39 H BUN 25 H Creatinine 0.80 Estimated GFR > 60.0 BUN/Creatinine Ratio 31.3 H Glucose 115 H Hemoglobin A1c Calcium 8.6 Magnesium Total Bilirubin 0.4 AST 17 ALT 11 Alkaline Phosphatase 64 Total Creatine Kinase 31 CK-MB (CK-2) TNP CK-MB (CK-2) Rel Index TNP Troponin I < 0.012 NT-Pro-B Natriuret Pep Total Protein 6.7 Albumin 3.6 Globulin 3.1 Albumin/Globulin Ratio 1.2 Lipase 73 TSH SARS-CoV-2 (PCR) Negative 08/03/21 08/03/21 08/03/21 23:05 23:05 23:05 WBC RBC Hgb Hct MCV MCH MCHC RDW Plt Count Neut % (Auto) Lymph % (Auto) [place] % (Auto) Eos % (Auto) Baso % (Auto) Neut # (Auto) Lymph # (Auto) [place] # (Auto) Eos # (Auto) Baso # (Auto) PT INR Sodium Potassium Chloride Carbon Dioxide BUN Creatinine Estimated GFR BUN/Creatinine Ratio Glucose Hemoglobin A1c 6.1 H Calcium Magnesium 2.3 Total Bilirubin AST ALT Alkaline Phosphatase Total Creatine Kinase CK-MB (CK-2) CK-MB (CK-2) Rel Index Troponin I NT-Pro-B Natriuret Pep 773 H Total Protein Albumin Globulin Albumin/Globulin Ratio Lipase TSH SARS-CoV-2 (PCR) 08/03/21 08/04/21 08/04/21 23:05 00:00 06:01 WBC RBC Hgb Hct MCV MCH MCHC RDW Plt Count Neut % (Auto) Lymph % (Auto) [place] % (Auto) Eos % (Auto) Baso % (Auto) Neut # (Auto) Lymph # (Auto) [place] # (Auto) Eos # (Auto) Baso # (Auto) PT 12.0 INR 1.1 Sodium Potassium Chloride Carbon Dioxide BUN Creatinine Estimated GFR BUN/Creatinine Ratio Glucose Hemoglobin A1c Calcium Magnesium Total Bilirubin AST ALT Alkaline Phosphatase Total Creatine Kinase CK-MB (CK-2) CK-MB (CK-2) Rel Index Troponin I NT-Pro-B Natriuret Pep Total Protein Albumin Globulin Albumin/Globulin Ratio Lipase TSH 1.70 SARS-CoV-2 (PCR) Negative 08/04/21 06:01 WBC RBC Hgb Hct MCV MCH MCHC RDW Plt Count Neut % (Auto) Lymph % (Auto) [place] % (Auto) Eos % (Auto) Baso % (Auto) Neut # (Auto) Lymph # (Auto) [place] # (Auto) Eos # (Auto) Baso # (Auto) PT INR Sodium 140 Potassium 4.7 Chloride 100 Carbon Dioxide 38 H BUN 22 H Creatinine 0.62 Estimated GFR > 60.0 BUN/Creatinine Ratio 35.5 H Glucose 134 H Hemoglobin A1c Calcium 8.6 Magnesium Total Bilirubin AST ALT Alkaline Phosphatase Total Creatine Kinase CK-MB (CK-2) CK-MB (CK-2) Rel Index Troponin I < 0.012 NT-Pro-B Natriuret Pep 674 H Total Protein Albumin Globulin Albumin/Globulin Ratio Lipase TSH SARS-CoV-2 (PCR) Assessment & Plan Assessment & Plan narrative: Patient is 70-year-old female Alem Sharif brought in by ambulance from [facility] for hypoxia on 78% room air.? Placed on oxygen and improved.? No breathing treatment.? Patient has history of chronic hypoxic and hypercapnic respiratory failure, morbid obesity with associated hypoventilation syndrome, COPD, diabetes, chronic pain with opioid pain management, atrial fibrillation not currently anticoagulated,dementia, and COPD. Patient admitted for acute on chronic respiratory failure with hypoxia and hypercapnia, in the setting COPD exacerbation. 1. Respiratory failure with hypoxia and hypercapnia acute on chronic in the setting of COPD exacerbation and morbid obesity with associated hypoventilation syndrome, as a result of patients noncompliance regarding home O2 and CPAP use, likely secondary to dementia, acute on chronic, present on admission -stable -On admit:O2 saturation 92% on 3.5 L nasal cannula. BUN 20 HC03 39, glucose 115. BUN 20s for all of 2020, HC03 30s x2 years. BNP 773, initial troponin and lipase was unremarkable. EKG was sinus bradycardia or with a rate [address] or T-wave changes. BMI 54.2 -last echo May of 2018 ejection fraction 60-65 -Chest x-ray demonstrated cardiomegaly with mild central opacities, possible pulmonary edema or pneumonia. -rule out PE, acute respiratory distress syndrome, pneumonia, pleural effusion, pneumothorax, decompensated heart failure/pulmonary edema, cardiac arrhythmia -vital signs Q 4 supplemental oxygen as needed to maintain an O2 saturation greater than 92%, consider swallow eval 1st, diet regular, fluid sepsis resuscitation. -DuoNeb q.4 hours, Prednisone 40mg PO QD x 5 Days -Assess fluid overload and need for diuresis -continue patient's Combivent/ventilator -hold patient's torsemide -recommend consideration for dietary counseling -education to be provided and recommendations for [place] longterm for the patient to use nasal cannula O2 and CPAP 2. Essential hypertension with paroxysmal atrial fibrillation without chronic anticoagulation, chronic, present on admission -continue patient's metoprolol, diltiazem -patient on telemedicine 3. Hyperlipidemia secondary to tobacco abuse, and insulin-dependent type 2 diabetes, chronic, present on admission -tobacco cessation education provided -continue patient's Lipitor, Insulins, A1C ordered -patient admitted on diabetes protocol, with sliding scale monitor for hypoglycemia 4. Chronic pain with hx of opiate dependence, chronic, present on admission -continue patient's gabapentin 5. GERD, chronic, present on admission Continue patient's pantoprazole 6. Alzheimer's dementia, acute on chronic, present on admission - continue donepezil Code status: DNR Surrogate decision maker Jed sharif patient's son SYED PCR: Negative DVT/VTE prophylaxis: Heparin 5000 units b.i.d. and SCDs Disposition: Estimated length of stay less than 2 midnights I have utilized all available immediate resources to obtain, update, or review the patient's current medications. I confirmed that the patient's advanced care plan is present, Code status is documented and/or surrogate decision maker is listed in the patient's medical record. Time Spent With Patient Critical Care time: I spent a total of [] minutes of critical care time on this patient's care today; this time is exclusive of procedural time. Quality VTE Deep Vein Thrombosis/Pulmonary Embolism Present on Admission: No
[2021-08-04] MEDS: ALBUTEROL/IPRATROPIUM 3 ML AMPUL INH ×2 (07:09→15:16)
[2021-08-04] MEDS: INSULIN LISPRO 100 UNIT/ML 3ML VIAL SUBCUT ×2 (08:08→12:03)
[2021-08-04] MEDS: predniSONE 20 MG TABLET 40 MG PO (08:09)
[2021-08-04] MEDS: ACETAMINOPHEN 325 MG TABLET 650 MG PO ×2 (08:09→15:08)
--- NOTE | 2021-08-04 08:12 | PC.NURSE ---
Addendum entered by Leatha Hernadez R.N. 08/04/21 14:23: Report given to nurse at [facility]. Attempted to call Jed Donahue, son, voicemail unavailable. Will call again shortly to notify him of pending BLS transfer. Patient eager to discharge. IV removed. patient tolerated. Original Note: patient a/o x 3, resting in bed. On 4 L NC, 95% lungs diminished, intermittent wet cough noted. SCD's on. HRR, VSS, Tele remains on. SCD's on bilaterally. Patient repositioned for breakfast. Endorses a headache and back pain. Tylenol PRN administered. Call light in reach.
[2021-08-04] MEDS: PANTOPRAZOLE DR 20 MG TABLET PO (09:16)
[2021-08-04] MEDS: GABAPENTIN 300 MG CAPSULE PO ×2 (09:16→14:15)
[2021-08-04] MEDS: METOPROLOL IR 25 MG TABLET 12.5 MG PO (09:16)
[2021-08-04] MEDS: DONEPEZIL 5 MG TABLET 20 MG PO (09:16)
[2021-08-04] MEDS: HEPARIN 5,000 UNIT/ML VIAL 5000 UNIT SUBCUT (09:16)
[2021-08-04] MEDS: dilTIAZem CD 180 MG CAP PO (09:23)
[2021-08-04] MEDS: BUDESONIDE 0.5 MG/2 ML NEB INH (13:35)
--- NOTE | 2021-08-04 14:18 | CM.DPNOTE ---
Called [facility] for BLS transport per Awilda. Spoke to Holger and he said 4:30 pm would be soonest. I let him know pt. on 4 L O2. Nathalia Franco CM Asst.
--- NOTE | 2021-08-04 15:52 | PC.NURSE ---
pt awaiting transport back to [facility]. O2 sats 94% with O2 via 3L NC, as is pt's home routine. Denies any needs. Call light in reach.
--- NOTE | 2021-08-04 16:08 | CM.DPNOTE ---
DCP Note Patient resident at [facility] and according to LIBRADO Zhang, patient has been discharged; no new medication and no new medical findings, patient admitted obs for hypoxia, patient with dementia and poor compliance w/home O2 is suspected. TC to [place] LIBRADO Naidu who suggested this SAMPLE WEAVER call compliance administrator Chaparro Gentile# [phone]; Chaparro is newly assigned as compliance administrator and not clinically familiar w/this patient, instructs this SAMPLE WEAVER call LIBRADO Naidu at [place] and request Elysia schedule and pay for cabulance in order to get patient home. This SAMPLE WEAVER explains to Chaparro/Joseline that if patient does not require a BLS, it should not be scheduled, due to potential for out of pocket cost. TC then to Elysia at [place] who asks for signed DC orders (med list) to be faxed, nurse to nurse report via [place] main number. Elysia instructs this SAMPLE WEAVER to schedule cabulance and orders hospital to pay the bill. Asked for clarification, explained Chaparro/Joseline asked that she schedule and pay for cabulance ? Elysia resistant Placed call once again to Chaparro, compliance administrator, Chaparro suggested that BLS be scheduled and that between [facility] and [place] it will be financially covered. ARIS Sloan, then proceeded in scheduling BLS for p/u from to [facility] this afternoon, first available 1630. Updated LIBRADO Zhang. Completed BLS ppk and placed on chart w/ face sheet for [facility]. Signed med list faxed by ARIS Sloan. Nurse to Nurse by LIBRADO Zhang Plan: DC back to [facility] via BLS this afternoon ANDRY
--- NOTE | 2021-08-04 20:38 | PM.DS.1 ---
History of Present Illness History of Present Illness Chief complaint: Low O2 Narrative: Per Dariana Lu: Patient is 70-year-old female Alem Donahue brought in by ambulance from [facility] for hypoxia on 78% room air.? Placed on oxygen and improved.? No breathing treatment.? Patient has history of chronic hypoxic and hypercapnic respiratory failure, morbid obesity with associated hypoventilation syndrome, COPD, diabetes, chronic pain with opioid pain management, atrial fibrillation not currently anticoagulated, mild dementia, and COPD.? Patient seen in ED here February 2021 for respiratory failure, intubated, and transferred to [place], in that note Dr. Adamson noted? that the patient was on home oxygen up to 2-4 L nasal cannula.?ED Noted today that she was not on home 02. Prior records note non-adherence with oxygen therapy, patient has verbalized in the past that she was told that she does not need to use oxygen or CPAP.? Patient denied any chest pain, recent illness, fever, chills, ordry cough. ?Current 1 pack per day smoker.? It is unknown if patient uses supplemental oxygen or CPAP at the [facility]. Patient also denies fever, chills, abdominal pain, gastrointestinal distress, dysuria, hematuria, new rash, malaise, myalgia, and myopathy. No known recent illness or hospitalizations.? Attempts at further evaluation of ROS and HPI or inhibited due to patient's lethargic demeanor, patient refused to open her eyes or answer multiple questions upon admit. Patient's vital signs upon admit BP stable 113/57, HR 74 RR 18, O2 saturation 92% on 3.5 L nasal cannula.? Patient CBC was unremarkable, BUN 20 HC03 39, glucose 115.? Should be noted that BUN have been in the 20s for all of 2020, HC03 has been in 30s x2 years.? BUN was slightly elevated at 773, initial troponin and lipase was unremarkable.? Patient's EKG was sinus bradycardia or with a rate [address] or T-wave changes.? Chest x-ray demonstrated cardiomegaly with mild central opacities, possible pulmonary edema or pneumonia.? Patient admitted for acute on chronic respiratory failure with hypoxia and hypercapnia, in the setting COPD exacerbation. Discharge Providers Provider Date of admission: 08/04/21 01:40 Discharge Date: 08/04/21 Primary care physician: Johnny Saini MD Consults: 08/04/21 03:18 Consult to Dietitian, Adult Routine Comment: Reason For Exam: BMI 54.2 Discharge provider: Palmer Keyes MD Summary Hospital Course Discharge Diagnosis: 1. Transient hypoxemia 2. Chronic respiratory failure, Chronic COPD 3. Morbid obesity, BMI 54.2 4. Hypertension 5. Paroxysmal atrial fibrillation 6. Hyperlipidemia 7. TYpe 2 Diabetes on insulin 8. Tobacco abuse 9. Chronic pain with history of opiate dependence 10. GERD 11. Alzheimer's dementia Hospital Course: Ms. Donahue lives at a facility. She is intermittently compliant with using her oxygen. She is supposed to be on 2-4L of oxygen at all times, but often does not want to wear it. She was not wearing oxygen, became hypoxemic to the 70s, and confused. She was sent to the ED. She had oxygen placed and returned to normal. She was admitted after this though she had no symptoms and was at her baseline. She denied cough, shortness of breath. She was encouraged to wear her oxygen at all times. She is a DNR/DNI, so certainly can consider comfort care going forward if she declines oxygen. Exam Vital Signs (past 8 hours): - 08/04/21 13:36 08/04/21 15:18 Pulse Oximetry 93 94 Oxygen Delivery Method Nasal Cannula Oxygen Flow Rate 3 Objective Labs Result Diagrams: 08/03/21 23:05 08/04/21 06:01 Labs: Laboratory Results - last 24 hr 08/03/21 08/03/21 08/03/21 22:50 23:05 23:05 WBC 6.2 RBC 4.36 Hgb 12.6 Hct 40.4 MCV 92.7 MCH 28.9 MCHC 31.2 RDW 15.9 H Plt Count 179 Neut % (Auto) 69.9 Lymph % (Auto) 15.9 L [place] % (Auto) 8.6 Eos % (Auto) 3.5 Baso % (Auto) 2.1 H Neut # (Auto) 4300 Lymph # (Auto) 1000 L [place] # (Auto) 500 Eos # (Auto) 200 Baso # (Auto) 100 PT INR Sodium 140 Potassium 5.0 Chloride 100 Carbon Dioxide 39 H BUN 25 H Creatinine 0.80 Estimated GFR > 60.0 BUN/Creatinine Ratio 31.3 H Glucose 115 H Hemoglobin A1c Calcium 8.6 Magnesium Total Bilirubin 0.4 AST 17 ALT 11 Alkaline Phosphatase 64 Total Creatine Kinase 31 CK-MB (CK-2) TNP CK-MB (CK-2) Rel Index TNP Troponin I < 0.012 NT-Pro-B Natriuret Pep Total Protein 6.7 Albumin 3.6 Globulin 3.1 Albumin/Globulin Ratio 1.2 Lipase 73 TSH SARS-CoV-2 (PCR) Negative 08/03/21 08/03/21 08/03/21 23:05 23:05 23:05 WBC RBC Hgb Hct MCV MCH MCHC RDW Plt Count Neut % (Auto) Lymph % (Auto) [place] % (Auto) Eos % (Auto) Baso % (Auto) Neut # (Auto) Lymph # (Auto) [place] # (Auto) Eos # (Auto) Baso # (Auto) PT INR Sodium Potassium Chloride Carbon Dioxide BUN Creatinine Estimated GFR BUN/Creatinine Ratio Glucose Hemoglobin A1c 6.1 H Calcium Magnesium 2.3 Total Bilirubin AST ALT Alkaline Phosphatase Total Creatine Kinase CK-MB (CK-2) CK-MB (CK-2) Rel Index Troponin I NT-Pro-B Natriuret Pep 773 H Total Protein Albumin Globulin Albumin/Globulin Ratio Lipase TSH SARS-CoV-2 (PCR) 08/03/21 08/04/21 08/04/21 23:05 00:00 06:01 WBC RBC Hgb Hct MCV MCH MCHC RDW Plt Count Neut % (Auto) Lymph % (Auto) [place] % (Auto) Eos % (Auto) Baso % (Auto) Neut # (Auto) Lymph # (Auto) [place] # (Auto) Eos # (Auto) Baso # (Auto) PT 12.0 INR 1.1 Sodium Potassium Chloride Carbon Dioxide BUN Creatinine Estimated GFR BUN/Creatinine Ratio Glucose Hemoglobin A1c Calcium Magnesium Total Bilirubin AST ALT Alkaline Phosphatase Total Creatine Kinase CK-MB (CK-2) CK-MB (CK-2) Rel Index Troponin I NT-Pro-B Natriuret Pep Total Protein Albumin Globulin Albumin/Globulin Ratio Lipase TSH 1.70 SARS-CoV-2 (PCR) Negative 08/04/21 06:01 WBC RBC Hgb Hct MCV MCH MCHC RDW Plt Count Neut % (Auto) Lymph % (Auto) [place] % (Auto) Eos % (Auto) Baso % (Auto) Neut # (Auto) Lymph # (Auto) [place] # (Auto) Eos # (Auto) Baso # (Auto) PT INR Sodium 140 Potassium 4.7 Chloride 100 Carbon Dioxide 38 H BUN 22 H Creatinine 0.62 Estimated GFR > 60.0 BUN/Creatinine Ratio 35.5 H Glucose 134 H Hemoglobin A1c Calcium 8.6 Magnesium Total Bilirubin AST ALT Alkaline Phosphatase Total Creatine Kinase CK-MB (CK-2) CK-MB (CK-2) Rel Index Troponin I < 0.012 NT-Pro-B Natriuret Pep 674 H Total Protein Albumin Globulin Albumin/Globulin Ratio Lipase TSH SARS-CoV-2 (PCR) PFSH Medical History Atrial fibrillation Cholelithiasis Chronic anticoagulation Chronic respiratory failure with hypoxia and hypercapnia Depression Diabetes Fracture of left ankle Hyperlipidemia Hypertension Hypertension Inguinal hernia Iron deficiency anemia Lumbar degenerative disc disease Morbid obesity Obesity Obesity hypoventilation syndrome Osteoarthritis Pneumococcal meningitis Prolapsed bladder Surgical History History of abdominoplasty History of gastric bypass Family History Mother Heart disease Father No problems noted. Social History household members: none Smoking Status: Former smoker alcohol intake: former additional social history: lives alone Discharge Plan Discharge Plan Patient Disposition: SNF Provider Discharge Comment: Ms. Donahue came in with low oxygen levels. She did well with placing her oxygen in place. She denied any symptoms. She is encouraged to always wear oxygen to keep oxygen saturation >88%. I certify the postop hospital care home care is medically necessary on a continuing basis for any conditions for which he/ she received care during this hospitalization.: Yes The receiving facility has agreed to accept transfer and provide medical treatment.: Yes Discharge orders & Medications Prescriptions: Continued ursodiol 300 mg capsule 300 mg PO BID RF: 0 aspirin 81 mg Tablet,Delayed Release (Dr/Ec) 81 mg PO DAILY RF: 0 cetirizine [Allergy Relief (cetirizine)] 10 mg Tablet 1 tab PO DAILY RF: 0 ferrous sulfate 325 mg (65 mg iron) Tablet 1 tab PO QAM RF: 0 ondansetron HCl 4 mg tablet 4 mg PO Q6HR PRN (Reason: Nausea) RF: 0 metoprolol tartrate 25 mg tablet 12.5 mg PO BID RF: 0 Lantus Solostar U-100 Insulin 100 unit/mL (3 mL) insulin pen 9 unit SUBCUT BEDTIME RF: 0 Ventolin HFA 108 mcg 2 puff inhalation Q4HR PRN (Reason: Wheezing) RF: 0 melatonin 1 mg 1 mg PO DAILY PRN (Reason: Insomnia) RF: 0 polyethylene glycol 17 g 17 g PO Q12HR PRN (Reason: Constipation) RF: 0 diltiazem HCl 120 mg capsule,extended release 24hr 180 mg PO DAILY RF: 0 donepezil 10 mg tablet 20 mg PO QAM RF: 0 nystatin 100,000 unit/gram powder 100,000 unit TOPICAL BID RF: 0 sennosides [senna] 8.6 mg tablet 17.2 mg PO Q12H PRN (Reason: Constipation) RF: 0 potassium chloride [Klor-Con M10] 10 mEq tablet,ER particles/crystals 20 meq PO DAILYCC RF: 0 acetaminophen 325 mg Tablet 650 mg PO Q6H PRN (Reason: PAIN) RF: 0 loperamide 2 mg Tablet 2 mg PO Q2H PRN (Reason: LOOSE STOOLS) RF: 0 acetaminophen 500 mg Tablet 1,000 mg PO BID RF: 0 pantoprazole 20 mg Tablet,Delayed Release (Dr/Ec) 20 mg PO DAILY RF: 0 vdlmrravclc-ogphtvvec-glvixmgf 100-62.5-25 mcg Blister With Device 1 inh INHALATION DAILY RF: 0 insulin lispro 100 unit/mL Insulin Pen 1 sliding scale dose SUBCUT USEASDIRECTD RF: 0 triamcinolone acetonide 0.1 % Ointment 1 applic TOPICAL BID RF: 0 gabapentin 300 mg Capsule 300 mg PO TID RF: 0 atorvastatin 80 mg tablet 80 mg PO BEDTIME RF: 0 torsemide 20 mg tablet 1 tab PO QAM RF: 0 Medication counseling provided by Pharmacist: No Follow up/Referrals: Johnny Saini MD [Primary Care Provider] - Discharge Data Primary Care Provider: Johnny Saini Attending Provider: Dariana Lu VTE Deep Vein Thrombosis/Pulmonary Embolism Present on Admission: No MIPS - DC The patient has current or prior documentation of left ventricular ejection fraction (LVEF) less than 40%, or moderate or severely depressed left ventricular systolic function.: No
== END 2021-08-04 16:44 ==
LOC: ED 08-04 01:39 → AC 08-04 01:41
PROVIDERS: Admitting Provider Nurse Practitioner Family; Emergency Provider Emergency Medicine; PCP Internal Medicine; Referring Provider Emergency Medicine; Visit Provider Nurse Practitioner Family
DX: J96.11 Chronic respiratory failure with hypoxia (principal); J44.9 Chronic obstructive pulmonary disease, unspecified; F17.210 Nicotine dependence, cigarettes, uncomplicated; E66.01 Morbid (severe) obesity due to excess calories; Z68.43 Body mass index [BMI] 50.0-59.9, adult; I10 Essential (primary) hypertension; I48.0 Paroxysmal atrial fibrillation; E78.5 Hyperlipidemia, unspecified; E11.9 Type 2 diabetes mellitus without complications; Z79.4 Long term (current) use of insulin; K21.9 Gastro-esophageal reflux disease without esophagitis; F11.20 Opioid dependence, uncomplicated; G89.29 Other chronic pain; G30.9 Alzheimer's disease, unspecified; F02.80 Dementia in other diseases classified elsewhere, unspecified severity, without behavioral disturbance, psychotic disturbance, mood disturbance, and anxiety; Z20.822 Contact with and (suspected) exposure to COVID-19; Z66 Do not resuscitate
CPT/HCPCS: 36415; 71045; 80048; 80053; 82550; 82962; 83036; 83690; 83735; 83880; 84443; 84484; 85025; 85610; 87635; 93005; 94640; 94760; 96372; 99284; C9803; G0378; J1644; J1815

== ENCOUNTER 2021-09-08 08:47 | Inpatient (IN) | payer MEDICARE, MEDICAID, SELFPAY ==
[2021-03-12 06:50] VITALS: PULSE 86; RESP 25; O2SAT 93
[2021-08-04 03:02] VITALS: BMI 54.1
[2021-09-08] VITALS (19 sets, daily range): BP systolic 97–134; BP diastolic 55–70; PULSE 50–77; RESP 12–25; TEMP 30–36.6; O2SAT 87–94; BMI 51.6; BMI 55.5
--- NOTE | 2021-09-08 08:52 | DI.RAD.S_ITS ---
PROCEDURE: XR CHEST 1V INDICATIONS: dyspnea TECHNIQUE: One view of the chest was acquired. COMPARISON: [facility], CR, XR CHEST 1V, 08/03/2021, 23:12. FINDINGS: Surgical changes and devices: None. Lungs and pleura: Low lung volumes with left basilar streaky densities. Prominence of the bronchovascular markings. No consolidation, pleural effusions or pneumothorax. Mediastinum: Prominence of the cardiomediastinal silhouette, partially by patient rotation and technique. Bones and chest wall: No suspicious bony lesions. Overlying soft tissues appear unremarkable. IMPRESSION: Cardiomegaly with pulmonary vascular congestion. Dictated by: Greyson Prabhakar M.D. on 09/08/2021 at 9:10 Approved by: Greyson Prabhakar M.D. on 09/08/2021 at 9:12
--- NOTE | 2021-09-08 08:53 | ED.GENADULT ---
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 Home brought in by medics with complaints of significant hypoxia sats in the mid 70s. She typically is on 2 L of oxygen. intermediate staff was concerned with increasing lethargy, bilateral upper extremity tremors and mild increased confusion. There is no reports of fevers, vomiting, diarrhea, abdominal pain or headache. She has been vaccinated for COVID. Patient herself states that she feels fine. In transferring from the transport gurney to the ER stretcher off oxygen for approximately 3 minutes saturations are in the mid 70s and slowly recover with 6 L nasal cannula. She does have a somewhat productive cough but feels that she is actually getting any sputum out. She does not describe skin changes, increasing pain, she does not notice the mild upper extremity tremors and feels that she is at her baseline. She describes no dysuria or flank pain and has not reported increased lower extremity edema and states that she never sleeps flat so has not noticed increased orthopnea. Related Data Home Medications Medication Instructions Recorded Confirmed aspirin 81 mg tablet,delayed 81 mg PO DAILY 04/12/18 08/04/21 release ursodiol 300 mg capsule 300 mg PO BID 04/12/18 08/04/21 gabapentin 300 mg capsule 300 mg PO TID 09/04/18 08/04/21 triamcinolone acetonide 0.1 % 1 applic TOPICAL BID 09/04/18 08/04/21 topical ointment atorvastatin 80 mg tablet 80 mg PO BEDTIME 09/25/18 08/04/21 torsemide 20 mg tablet 1 tab PO QAM 09/25/18 08/04/21 cetirizine 10 mg tablet (Allergy 1 tab PO DAILY 02/13/19 08/04/21 Relief (cetirizine)) ferrous sulfate 325 mg (65 mg 1 tab PO QAM 02/13/19 08/04/21 iron) tablet Ventolin HFA 2 puff INHALATION Q4HR PRN 08/04/21 08/04/21 acetaminophen 325 mg tablet 650 mg PO Q6H PRN 08/04/21 08/04/21 acetaminophen 500 mg tablet 1,000 mg PO BID 08/04/21 08/04/21 diltiazem HCl 120 mg 180 mg PO DAILY 08/04/21 08/04/21 capsule,extended release 24 hr donepezil 10 mg tablet 20 mg PO QAM 08/04/21 08/04/21 fluticasone fur. 100 mcg-umeclid 1 inh INHALATION DAILY 08/04/21 08/04/21 62.5 mcg-vilant 25 mcg inhalat.powder insulin glargine 100 unit/mL (3 9 unit SUBCUT BEDTIME 08/04/21 08/04/21 mL) subcutaneous pen (Lantus Solostar U-100 Insulin) insulin lispro 100 unit/mL 1 sliding scale dose SUBCUT 08/04/21 08/04/21 subcutaneous pen USEASDIRECTD loperamide 2 mg tablet 2 mg PO Q2H PRN 08/04/21 08/04/21 melatonin 1 mg PO DAILY PRN 08/04/21 08/04/21 metoprolol tartrate 25 mg tablet 12.5 mg PO BID 08/04/21 08/04/21 nystatin 100,000 unit/gram topical 100,000 unit TOPICAL BID 08/04/21 08/04/21 powder ondansetron HCl 4 mg tablet 4 mg PO Q6HR PRN 08/04/21 08/04/21 pantoprazole 20 mg tablet,delayed 20 mg PO DAILY 08/04/21 08/04/21 release polyethylene glycol 17 g PO Q12HR PRN 08/04/21 08/04/21 potassium chloride 10 mEq 20 meq PO DAILYCC 08/04/21 08/04/21 tablet,extended release(part/cryst) (Klor-Con M) sennosides 8.6 mg tablet (senna) 17.2 mg PO Q12H PRN 08/04/21 08/04/21 Allergies Allergy/AdvReac Type Severity Reaction Status Date / Time captopril [CAPTOPRIL] Allergy Unknown Verified 09/25/18 14:09 nabumetone [NABUMETONE] Allergy Unknown Rash Verified 09/25/18 14:09 Review of Systems Review of Systems Narrative: Remainder of complete review of systems is otherwise unremarkable except for that included in the HPI. Patient History Medical History Atrial fibrillation Cholelithiasis Chronic respiratory failure with hypoxia and hypercapnia Depression Diabetes Fracture of left ankle Hyperlipidemia Hypertension Inguinal hernia Iron deficiency anemia Lumbar degenerative disc disease Morbid obesity Obesity hypoventilation syndrome Osteoarthritis Paroxysmal atrial fibrillation Pneumococcal meningitis Prolapsed bladder Surgical History History of abdominoplasty History of gastric bypass Family History Mother Heart disease Father No problems noted. Social History household members: none Smoking Status: Former smoker alcohol intake: former additional social history: lives alone Smoking Status: Former smoker tobacco type: cigarettes alcohol intake frequency: 0-2 drinks per day Substance Use Type: does not use Exam Narrative Exam Narrative: General: Chronically ill-appearing, morbidly obese, no acute respiratory distress despite significant hypoxia HEENT: Moist mucous membranes, normal sclera with reactive pupils, Neck: No JVD (with exam limited by body habitus), supple Respiratory: Poor movement overall with moderate wheeze and significant rhonchi throughout all lung kruger no specific crackles are appreciated at bases Cardiac: Irregular without tachycardia, murmurs or bruits Abdomen: Obese, Soft, nontender, good bowel tones, no flank pain Skin: Pale but otherwise Warm and dry, no rashes Neurologic: Globally weak, paroxysmal upper extremity fine motor tremors but otherwise Grossly neurologically intact with no obvious asymmetries or abnormalities Extremities: No trauma, well perfused, no significant lower extremity edema Psych: Cooperative, decreased overall insight Initial Vital Signs Initial Vital Signs: Vital Signs Pulse Rate 70 09/08/21 08:47 Pulse Oximetry 94 09/08/21 08:47 Course Orders Ordered: ED Orders 09/08/21 08:52 XR chest 1V Stat EKG-12 Lead Stat 09/08/21 09:15 Complete Blood Count AUTO DIFF Stat Comprehensive Metabolic Panel Stat Lactate (Lactic Acid) Stat Magnesium Stat NT-proBNP (BNP-Adult 18+) Stat Respiratory Panel (Film Array) Stat Troponin I Stat Venous Blood Gas Stat 09/08/21 09:26 COVID19 - ADMIT ([employer] swab/PCR) Stat COVID19 -Nasal swab/Pre-Proc Stat 09/08/21 09:45 Blood Culture Stat 09/08/21 10:10 BiPAP Ventilatory Support RT PROTOCOL 09/08/21 10:50 Urinalysis and Microscopic Stat Magnesium Sulfate (Magnesium Sulfate) 2 gm in 50 mls @ 150 mls/hr IV NOW ONE Stop: 09/08/21 11:58 Discontinued Medications Furosemide 120 mg/ Sodium (Chloride) 62 mls @ 124 mls/hr IV NOW ONE Stop: 09/08/21 11:40 Methylprednisolone (Methylprednisolone 125 Mg/2 Ml Vial) 125 mg IV NOW ONE Stop: 09/08/21 11:35 Vital Signs Vital signs: Vital Signs - 8 hr 09/08/21 08:47 09/08/21 08:50 09/08/21 08:55 Temperature 97 F L Pulse Rate 70 67 62 Respiratory Rate 20 Blood Pressure 114/58 L 114/58 L Pulse Oximetry 94 91 94 09/08/21 09:00 09/08/21 09:30 09/08/21 09:32 Temperature Pulse Rate 64 58 L 57 L Respiratory Rate 24 16 18 Blood Pressure 101/66 Pulse Oximetry 93 93 94 09/08/21 10:00 09/08/21 10:30 09/08/21 11:00 Temperature Pulse Rate 53 L 53 L 57 L Respiratory Rate 23 22 22 Blood Pressure 119/63 103/57 L 118/66 Pulse Oximetry 94 90 L 92 09/08/21 11:10 Temperature Pulse Rate Respiratory Rate Blood Pressure 118/66 Pulse Oximetry Medical Decision Making Medical Records Medical records narrative: Records from [facility] do indicate she has a DNR form limited interventions antibiotics may be used if indicated. Lab Data Result diagrams: 09/08/21 09:15 09/08/21 09:15 Labs: Lab Results 09/08/21 09/08/21 09/08/21 Range/Units 09:15 09:15 09:15 WBC 6.6 (4.5-11.0) X10^3/uL RBC 4.63 (4.0-5.2) X10^6/uL Hgb 13.2 (12.0-16.0) g/dL Hct 44.2 (36-46) % MCV 95.6 (80-100) fL MCH 28.5 (26-34) PG MCHC 29.9 L (30-36) % RDW 17.4 H (11.6-14.8) % Plt Count 179 (150-400) X10^3/uL Neut % (Auto) 80.7 H (50-75) % Lymph % (Auto) 8.9 L (25-40) % [place] % (Auto) 7.1 (3-14) % Eos % (Auto) 2.5 (2-4) % Baso % (Auto) 0.8 (0-2) % Neut # (Auto) 5300 (7160-1136) /uL Lymph # (Auto) 600 L (0783-7219) /uL [place] # (Auto) 500 (0-900) /uL Eos # (Auto) 200 (0-450) /uL Baso # (Auto) 100 (0-100) /uL VBG pH 7.25 L (7.33-7.43) VBG pCO2 96.4 H (45-50) mmHg VBG pO2 39 (35-45) mmHg VBG HCO3 42 H (23-28) mmol/L VBG Total CO2 45 H (24-29) mmol/L VBG O2 Saturation 59 L (70-75) % VBG Base Excess 15.0 H (0-4) mmol/L Sodium 142 (137-145) mmol/L Potassium 4.8 (3.4-5.1) mmol/L Chloride 96 L (98-107) mmol/L Carbon Dioxide 40 H* (22-32) mmol/L BUN 22 H (7-17) mg/dL Creatinine 0.74 (0.52-1.04) mg/dL Estimated GFR > 60.0 (>60) mL/min BUN/Creatinine Ratio 29.7 H (6-22) Glucose 210 H (80-110) mg/dL Lactate (0.7-2.1) mmol/L Calcium 8.8 (8.4-10.2) mg/dL Magnesium (1.6-2.3) mg/dL Total Bilirubin 0.5 (0.2-1.3) mg/dL AST 18 (14-36) IU/L ALT 11 (<35) IU/L Alkaline Phosphatase 66 (38-126) U/L Troponin I (0.01-0.034) ng/mL NT-Pro-B Natriuret Pep (<125) pg/mL Total Protein 6.8 (6.3-8.2) g/dL Albumin 3.8 (3.5-5.0) g/dL Globulin 3.0 (1.7-4.1) g/dL Albumin/Globulin Ratio 1.3 (1.0-2.8) Urine Color Urine Appearance Urine pH (4.5-8.0) Ur Specific [place] (1.000-1.035) Urine Protein (Negative) Urine Glucose (UA) (Negative) g/dL Urine Ketones (NEGATIVE) Urine Occult Blood (Negative) Urine Nitrate (Negative) Urine Bilirubin (NEGATIVE) Urine Urobilinogen (0.2) E.U./dL Ur Leukocyte Esterase (NEGATIVE) Urine RBC (0-5/HPF) Urine WBC (0-5/HPF) Urine Bacteria (None) Ur Culture Indicated? Chlamy pneumoniae PCR (Not Detect) Adenovirus (PCR) (Not Detect) B. pertussis DNA (PCR) (Not Detecte) B.parapertussis DNA PCR (Not Detecte) Coronavirus OC43 (PCR) (Not Detect) Coronavirus HKU1 (PCR) (Not Detect) Coronavirus 229E (PCR) (Not Detect) SARS-CoV-2 (PCR) (Not Detecte) Coronavirus NL63 (PCR) (Not Detect) Human Metapneumovir PCR (Not Detect) Influenza Type A (PCR) (Not Detect) Influenza Type B (PCR) (Not Detect) M. pneumoniae (PCR) (Not Detect) Parainfluenza 1 (PCR) (Not Detect) Parainfluenza 2 (PCR) (Not Detect) Parainfluenza 3 (PCR) (Not Detect) Parainfluenza 4 (PCR) (Not Detect) RSV (PCR) (Not Detect) Entero/Rhino (PCR) (Not Detect) 09/08/21 09/08/21 09/08/21 Range/Units 09:15 09:15 09:15 WBC (4.5-11.0) X10^3/uL RBC (4.0-5.2) X10^6/uL Hgb (12.0-16.0) g/dL Hct (36-46) % MCV (80-100) fL MCH (26-34) PG MCHC (30-36) % RDW (11.6-14.8) % Plt Count (150-400) X10^3/uL Neut % (Auto) (50-75) % Lymph % (Auto) (25-40) % [place] % (Auto) (3-14) % Eos % (Auto) (2-4) % Baso % (Auto) (0-2) % Neut # (Auto) (1405-9073) /uL Lymph # (Auto) (2630-2881) /uL [place] # (Auto) (0-900) /uL Eos # (Auto) (0-450) /uL Baso # (Auto) (0-100) /uL VBG pH (7.33-7.43) VBG pCO2 (45-50) mmHg VBG pO2 (35-45) mmHg VBG HCO3 (23-28) mmol/L VBG Total CO2 (24-29) mmol/L VBG O2 Saturation (70-75) % VBG Base Excess (0-4) mmol/L Sodium (137-145) mmol/L Potassium (3.4-5.1) mmol/L Chloride (98-107) mmol/L Carbon Dioxide (22-32) mmol/L BUN (7-17) mg/dL Creatinine (0.52-1.04) mg/dL Estimated GFR (>60) mL/min BUN/Creatinine Ratio (6-22) Glucose (80-110) mg/dL Lactate 1.5 (0.7-2.1) mmol/L Calcium (8.4-10.2) mg/dL Magnesium 2.0 (1.6-2.3) mg/dL Total Bilirubin (0.2-1.3) mg/dL AST (14-36) IU/L ALT (<35) IU/L Alkaline Phosphatase (38-126) U/L Troponin I < 0.012 (0.01-0.034) ng/mL NT-Pro-B Natriuret Pep 774 H (<125) pg/mL Total Protein (6.3-8.2) g/dL Albumin (3.5-5.0) g/dL Globulin (1.7-4.1) g/dL Albumin/Globulin Ratio (1.0-2.8) Urine Color Urine Appearance Urine pH (4.5-8.0) Ur Specific [place] (1.000-1.035) Urine Protein (Negative) Urine Glucose (UA) (Negative) g/dL Urine Ketones (NEGATIVE) Urine Occult Blood (Negative) Urine Nitrate (Negative) Urine Bilirubin (NEGATIVE) Urine Urobilinogen (0.2) E.U./dL Ur Leukocyte Esterase (NEGATIVE) Urine RBC (0-5/HPF) Urine WBC (0-5/HPF) Urine Bacteria (None) Ur Culture Indicated? Chlamy pneumoniae PCR Not detected (Not Detect) Adenovirus (PCR) Not detected (Not Detect) B. pertussis DNA (PCR) Not detected (Not Detecte) B.parapertussis DNA PCR Not detected (Not Detecte) Coronavirus OC43 (PCR) Not detected (Not Detect) Coronavirus HKU1 (PCR) Not detected (Not Detect) Coronavirus 229E (PCR) Not detected (Not Detect) SARS-CoV-2 (PCR) Not detected (Not Detecte) Coronavirus NL63 (PCR) Not detected (Not Detect) Human Metapneumovir PCR Not detected (Not Detect) Influenza Type A (PCR) Not detected (Not Detect) Influenza Type B (PCR) Not detected (Not Detect) M. pneumoniae (PCR) Not detected (Not Detect) Parainfluenza 1 (PCR) Not detected (Not Detect) Parainfluenza 2 (PCR) Not detected (Not Detect) Parainfluenza 3 (PCR) Not detected (Not Detect) Parainfluenza 4 (PCR) Not detected (Not Detect) RSV (PCR) Not detected (Not Detect) Entero/Rhino (PCR) Not detected (Not Detect) 09/08/21 09/08/21 09/08/21 Range/Units 09:26 09:26 10:50 WBC (4.5-11.0) X10^3/uL RBC (4.0-5.2) X10^6/uL Hgb (12.0-16.0) g/dL Hct (36-46) % MCV (80-100) fL MCH (26-34) PG MCHC (30-36) % RDW (11.6-14.8) % Plt Count (150-400) X10^3/uL Neut % (Auto) (50-75) % Lymph % (Auto) (25-40) % [place] % (Auto) (3-14) % Eos % (Auto) (2-4) % Baso % (Auto) (0-2) % Neut # (Auto) (4663-7805) /uL Lymph # (Auto) (9250-3844) /uL [place] # (Auto) (0-900) /uL Eos # (Auto) (0-450) /uL Baso # (Auto) (0-100) /uL VBG pH (7.33-7.43) VBG pCO2 (45-50) mmHg VBG pO2 (35-45) mmHg VBG HCO3 (23-28) mmol/L VBG Total CO2 (24-29) mmol/L VBG O2 Saturation (70-75) % VBG Base Excess (0-4) mmol/L Sodium (137-145) mmol/L Potassium (3.4-5.1) mmol/L Chloride (98-107) mmol/L Carbon Dioxide (22-32) mmol/L BUN (7-17) mg/dL Creatinine (0.52-1.04) mg/dL Estimated GFR (>60) mL/min BUN/Creatinine Ratio (6-22) Glucose (80-110) mg/dL Lactate (0.7-2.1) mmol/L Calcium (8.4-10.2) mg/dL Magnesium (1.6-2.3) mg/dL Total Bilirubin (0.2-1.3) mg/dL AST (14-36) IU/L ALT (<35) IU/L Alkaline Phosphatase (38-126) U/L Troponin I (0.01-0.034) ng/mL NT-Pro-B Natriuret Pep (<125) pg/mL Total Protein (6.3-8.2) g/dL Albumin (3.5-5.0) g/dL Globulin (1.7-4.1) g/dL Albumin/Globulin Ratio (1.0-2.8) Urine Color Yellow Urine Appearance Clear Urine pH 5.0 (4.5-8.0) Ur Specific [place] 1.015 (1.000-1.035) Urine Protein Negative (Negative) Urine Glucose (UA) Negative (Negative) g/dL Urine Ketones Negative (NEGATIVE) Urine Occult Blood Negative (Negative) Urine Nitrate Negative (Negative) Urine Bilirubin Negative (NEGATIVE) Urine Urobilinogen 0.2 (0.2) E.U./dL Ur Leukocyte Esterase Negative (NEGATIVE) Urine RBC 0-1/hpf (0-5/HPF) Urine WBC 0-1/hpf (0-5/HPF) Urine Bacteria None seen (None) Ur Culture Indicated? Cult not indicated Chlamy pneumoniae PCR (Not Detect) Adenovirus (PCR) (Not Detect) B. pertussis DNA (PCR) (Not Detecte) B.parapertussis DNA PCR (Not Detecte) Coronavirus OC43 (PCR) (Not Detect) Coronavirus HKU1 (PCR) (Not Detect) Coronavirus 229E (PCR) (Not Detect) SARS-CoV-2 (PCR) Negative Negative (Not Detecte) Coronavirus NL63 (PCR) (Not Detect) Human Metapneumovir PCR (Not Detect) Influenza Type A (PCR) (Not Detect) Influenza Type B (PCR) (Not Detect) M. pneumoniae (PCR) (Not Detect) Parainfluenza 1 (PCR) (Not Detect) Parainfluenza 2 (PCR) (Not Detect) Parainfluenza 3 (PCR) (Not Detect) Parainfluenza 4 (PCR) (Not Detect) RSV (PCR) (Not Detect) Entero/Rhino (PCR) (Not Detect) Imaging Data Chest x-ray: Radiologist's Impression: FINDINGS: Surgical changes and devices: None. Lungs and pleura: Low lung volumes with left basilar streaky densities. Prominence of the bronchovascular markings. No consolidation, pleural effusions or pneumothorax. Mediastinum: Prominence of the cardiomediastinal silhouette, partially by patient rotation and technique. Bones and chest wall: No suspicious bony lesions. Overlying soft tissues appear unremarkable. IMPRESSION: Cardiomegaly with pulmonary vascular congestion. Dictated by: Greyson Prabhakar M.D. on 09/08/2021 at 9:10 ECG Data Interpretation: Sinus rhythm at a rate of 60 Normal intervals, normal axis No acute ischemic changes MDM Narrative Medical decision making narrative: 70-year-old woman with morbid obesity and COPD presents with confusion and increasing respiratory difficulty. Oxygen saturations were in the lower 70s when medics picked her up on her usual 2 L of oxygen at her long-term facility. She is somewhat ambivalent about all of her complaints and states that she feels like she is at her baseline. Notes from long-term facility do indicate that she is DNR with interventions as needed. She would not want to be intubated. Workup suggests acute COPD exacerbation with hypercapnic respiratory failure and initial venous blood gas CO2 of 96. The hypercarbia certainly explains her mild confusion. Once COVID status is confirmed negative she started on BiPAP. She does not like the mask and would like this to be removed as soon as possible. She is given IV Solu-Medrol, will add IV magnesium and small dose of Lasix as well. She does not have dramatic clinical signs or symptoms of congestive heart failure however her chest x-ray does suggest mild volume overload. She will need to be admitted for hypercarbic hypoxic respiratory failure. Having a palliative care discussion during this hospital stay may be appropriate given her recurrent almost monthly admissions for similar findings and complaints. At this time, I am not seeing evidence for bacterial pneumonia, COVID, remainder of viral respiratory panel is currently pending, pulmonary embolism acute coronary syndrome or STEMI. 11:[address] Mittal, hospitalist. Patient will be admitted. Critical Care Time Critical Care Time Critical Care Time: Yes Total Critical Care Time: 33 Attestation: Critical care time is separate from other billable procedures. There is a high probability of a significant, sudden or life-threatening deterioration that requires my full and direct attention, intervention and personal management. This critical care time includes consultation with family and other consulting doctors, review of records, and interpretation of data from labs, EKGs and imaging as well as managements of respiratory failure and altered mental status. Discharge Plan Departure Patient Disposition: Admitted As Inpatient Clinical Impression: Acute and chronic respiratory failure with hypoxia, Acute hypercapnic respiratory failure
[2021-09-08 09:28] LABS: Add Manual Diff / Slide Review NO; Basophils Absolute Auto 100 /uL (0-100); Basophils Percent Auto 0.8 % (0-2); Eosinophils Absolute Auto 200 /uL (0-450); Eosinophils Percent Auto 2.5 % (2-4); Hematocrit 44.2 % (36-46); Hemoglobin 13.2 g/dL (12.0-16.0); Lymphocytes Absolute Auto 600 /uL (1100-4500); Lymphocytes Percent Auto 8.9 % (25-40); Mean Corpuscular HGB Conc 29.9 % (30-36); Mean Corpuscular Hemoglobin 28.5 PG (26-34); Mean Corpuscular Volume 95.6 fL (80-100); Monocytes Absolute Auto 500 /uL (0-900); Monocytes Percent Auto 7.1 % (3-14); Neutrophils Absolute Auto 5300 /uL (1500-7000); Neutrophils Percent Auto 80.7 % (50-75); Platelet Count 179 X10^3/uL (150-400); Red Blood Cell Count 4.63 X10^6/uL (4.0-5.2); Red Cell Distribution Width 17.4 % (11.6-14.8); White Blood Cell Count 6.6 X10^3/uL (4.5-11.0)
[2021-09-08 09:39] LABS: Alanine Aminotransferase 11 IU/L (<35); Albumin 3.8 g/dL (3.5-5.0); Albumin Globulin Ratio 1.3 (1.0-2.8); Alkaline Phosphatase 66 U/L (38-126); Aspartate Aminotransferase 18 IU/L (14-36); BUN Creatinine Ratio 29.7 (6-22); Bilirubin Total 0.5 mg/dL (0.2-1.3); Blood Urea Nitrogen 22 mg/dL (7-17); Calcium 8.8 mg/dL (8.4-10.2); Chloride 96 mmol/L (98-107); Estimated Glomerular Filt Rate > 60.0 mL/min (>60); Glucose 210 mg/dL (80-110); HEMOLYSIS < 15 (0-50); Lactate (Lactic Acid) 1.5 mmol/L (0.7-2.1); Potassium 4.8 mmol/L (3.4-5.1); Sodium 142 mmol/L (137-145); Total Protein 6.8 g/dL (6.3-8.2)
[2021-09-08 09:46] LABS: Carbon Dioxide 40 mmol/L (22-32)
--- NOTE | 2021-09-08 09:58 | PC.NURSE ---
Pt is sleepy and slightly confused, but wakes to staff presence in room. She is oriented to self, place, situation, but appears somnolent with increased WOB. Tachypnea, abdominal breathing, junky cough with frothy sputum. Pt leans to R side of bed and is unable to remain upright. She frequently removes her mask and nasal cannula; reminded repeatedly by this RN to keep these items in place. When her cannula comes off, her sats drop to low 80's%. With 6L NC she remains at 93-94%.
[2021-09-08 10:04] LABS: HCO3 VBG 42 mmol/L (23-28); PCO2 VBG 96.4 mmHg (45-50); PO2 VBG 39 mmHg (35-45); Total CO2 VBG 45 mmol/L (24-29); pH VBG 7.25 (7.33-7.43)
[2021-09-08 10:05] LABS: Oxygen Saturation VBG 59 % (70-75)
[2021-09-08 10:18] LABS: NT-proBNP (BNP-Adult 18+) 774 pg/mL (<125); Troponin I < 0.012 ng/mL (0.01-0.034)
[2021-09-08 10:34] LABS: COVID19 -Nasal RAPID Negative (Negative)
[2021-09-08 11:03] LABS: COVID19 - ADMIT (NP swab/PCR) Negative (Negative)
[2021-09-08 11:09] LABS: Appearance Urine UA CLEAR; Bilirubin Urine UA NEGATIVE (NEGATIVE); Color Urine UA YELLOW; Glucose Urine UA NEGATIVE (Negative); Ketones Urine UA NEGATIVE (NEGATIVE); Leukocyte Esterase Urine UA NEGATIVE (NEGATIVE); Nitrite Urine UA NEGATIVE (Negative); Occult Blood Urine UA NEGATIVE (Negative); Protein Urine UA NEGATIVE (Negative); Specific Gravity Urine UA 1.015 (1.000-1.035); Urobilinogen Urine UA 0.2 E.U./dL (0.2)
--- NOTE | 2021-09-08 11:12 | PC.NURSE ---
RT at bedside to initiate BiPap. Pt is adamant that she does not want this treatment, EDMD aware. Pt has a hx of interrupting her treatment and removing the mask, per conversation with her son. This RN explained to the pt that if we do not treat her respiratory status and blood gasses, she is at risk of becoming gravely ill and dying. Pt understands, but is too confused to partake in decision making. Treatment will be initiated for now, and ABG rechecked in due time. Treatment team all share understanding of the situation and pt's status.
[2021-09-08 11:34] LABS: Culture Indicated Urine Cult Not Indicated; RBC Urine 0-1/HPF (0-5/HPF); WBC Urine 0-1/HPF (0-5/HPF)
[2021-09-08 11:37] LABS: Bacteria Urine None Seen
[2021-09-08 11:49] LABS: Adenovirus Not Detected (Not Detect); B. parapertussis Not Detected (Not Detecte); Bordetella pertussis Not Detected (Not Detecte); Chlamydophila pneumoniae Not Detected (Not Detect); Coronavirus 229E Not Detected (Not Detect); Coronavirus HKU1 Not Detected (Not Detect); Coronavirus NL 63 Not Detected (Not Detect); Coronavirus OC43 Not Detected (Not Detect); Human Metapneumovirus Not Detected (Not Detect); Human Rhinovirus/Enterovirus Not Detected (Not Detect); Influenza A Not Detected (Not Detect); Influenza B Not Detected (Not Detect); Mycoplasma pneumoniae Not Detected (Not Detect); Parainfluenza Virus 1 Not Detected (Not Detect); Parainfluenza Virus 2 Not Detected (Not Detect); Parainfluenza Virus 3 Not Detected (Not Detect); Parainfluenza Virus 4 Not Detected (Not Detect); Respiratory Syncytial Virus Not Detected (Not Detect); SARS- CoV-2 Not Detected (Not Detecte)
--- NOTE | 2021-09-08 11:50 | PC.NURSE ---
Pt has left BiPap mask on and is sleeping soundly. Her skin has improved from cool/pale to warm and pink. Resps remain deep, but even, less labored. Appears comfortable.
[2021-09-08] MEDS: methylPREDNISolone 125 MG/2 ML VIAL IV (12:01)
[2021-09-08] MEDS: MAGNESIUM SULFATE 2 GM/50 ML PIGGYBACK IV (12:01)
[2021-09-08] MEDS: FUROSEMIDE 120 MG in SODIUM CHLORIDE 0.9% 50 ML 124 ML IV (12:01)
--- NOTE | 2021-09-08 12:38 | PC.NURSE ---
Report called to LIBRADO Garcia
--- NOTE | 2021-09-08 13:30 | P.HP_ITS ---
History of Present Illness History of Present Illness Date Patient Seen: 09/08/21 Time Patient Seen: 13:30 Chief complaint: AMS, Tremor Narrative: History is obtained largely via chart review given the patient's current mental status. This is a 70-year-old female with a past medical history of chronic hypercapnic and hypoxemic respiratory failure, obesity hypoven tilation syndrome, COPD, diabetes, chronic pain with opioid medications, atrial fibrillation, and mild dementia who was sent to the emergency room for hypoxia noted at her assisted living facility, [facility]. They also reported that she had been having increasing lethargy and confusion. History is currently unable to be obtained by the patient. She is arousable but quite somnolent and fatigued. She occasionally nods but cannot reliably state a history at the current time. In the emergency room, the patient was tachypneic, hypoxic into the 70s on room air. Blood gas showed a pCO2 of 96 and the patient was started on BiPAP therapy. Her code status and POLST form state that she is DNR/DNI with limited interventions which do include BiPAP therapy. After about 1 hour on the BiPAP machine her pCO2 had improved very slightly to 91. She also had a slightly elevated proBNP and was given a dose of Lasix. Patient was admitted for further management of acute on chronic hypercarbic and hypercapnic respiratory failure likely secondary to COPD exacerbation. Patient History Medical History Atrial fibrillation Cholelithiasis Chronic respiratory failure with hypoxia and hypercapnia Depression Diabetes Fracture of left ankle Hyperlipidemia Hypertension Inguinal hernia Iron deficiency anemia Lumbar degenerative disc disease Morbid obesity Obesity hypoventilation syndrome Osteoarthritis Paroxysmal atrial fibrillation Pneumococcal meningitis Prolapsed bladder Surgical History History of abdominoplasty History of gastric bypass Family & Social History Family History Mother Heart disease Father No problems noted. Social History: household members none Safety & Behavioral: Feels Safe in Current Yes Environment Been Physically Hurt or No Threatened By a Person Tobacco & Substance use: Tobacco type cigarettes Smoking Status Former smoker alcohol intake former alcohol intake frequency 0-2 drinks per day Substance Use Type does not use Meds Home Medications and Allergies Home Medications Medication Instructions Recorded Confirmed Type aspirin 81 mg tablet,delayed 81 mg PO DAILY 04/12/18 09/08/21 History release ursodiol 300 mg capsule 300 mg PO BID 04/12/18 09/08/21 History gabapentin 300 mg capsule 300 mg PO TID 09/04/18 09/08/21 History atorvastatin 80 mg tablet 80 mg PO BEDTIME 09/25/18 09/08/21 History torsemide 20 mg tablet 1 tab PO QAM 09/25/18 09/08/21 History cetirizine 10 mg tablet (Allergy 1 tab PO DAILY 02/13/19 09/08/21 History Relief (cetirizine)) ferrous sulfate 325 mg (65 mg 1 tab PO QAM 02/13/19 09/08/21 History iron) tablet acetaminophen 325 mg tablet 650 mg PO Q6H PRN 08/04/21 09/08/21 History acetaminophen 500 mg tablet 1,000 mg PO BID 08/04/21 09/08/21 History albuterol sulfate 90 mcg/actuation 2 puff INHALATION Q4H PRN #0 08/04/21 09/08/21 History aerosol inhaler (Ventolin HFA) donepezil 10 mg tablet 20 mg PO QAM 08/04/21 09/08/21 History fluticasone fur. 100 mcg-umeclid 1 inh INHALATION DAILY 08/04/21 09/08/21 History 62.5 mcg-vilant 25 mcg inhalat.powder insulin glargine 100 unit/mL (3 9 unit SUBCUT BEDTIME 08/04/21 09/08/21 History mL) subcutaneous pen (Lantus Solostar U-100 Insulin) loperamide 2 mg tablet 2 mg PO Q24H PRN 08/04/21 09/08/21 History metoprolol tartrate 25 mg tablet 12.5 mg PO BID 08/04/21 09/08/21 History nystatin 100,000 unit/gram topical 100,000 unit TOPICAL BID 08/04/21 09/08/21 History powder ondansetron HCl 4 mg tablet 4 mg PO Q6HR PRN 08/04/21 09/08/21 History pantoprazole 20 mg tablet,delayed 20 mg PO DAILY 08/04/21 09/08/21 History release potassium chloride 10 mEq 20 meq PO DAILYCC 08/04/21 09/08/21 History tablet,extended release(part/cryst) (Klor-Con M) sennosides 8.6 mg tablet (senna) 17.2 mg PO Q12H PRN 08/04/21 09/08/21 History diltiazem HCl 180 mg 180 mg PO DAILY 09/08/21 09/08/21 History capsule,extended release 24 hr insulin lispro 100 unit/mL 1 sliding scale dose SUBCUT BIDAC 09/08/21 09/08/21 History subcutaneous pen (Humalog KwikPen (U-100) Insulin) melatonin 1 mg tablet 1 mg PO BEDTIME PRN 09/08/21 09/08/21 History polyethylene glycol 3350 17 gram 17 g PO BID PRN 09/08/21 09/08/21 History oral powder packet (Miralax) vitamin A and D 1 applic TOPICAL BID 09/08/21 09/08/21 History Allergies Allergy/AdvReac Type Severity Reaction Status Date / Time captopril [CAPTOPRIL] Allergy Unknown Verified 09/25/18 14:09 nabumetone [NABUMETONE] Allergy Unknown Rash Verified 09/25/18 14:09 Review of Systems Review of Systems Narrative: Unable to further review review of systems given the patient's current mental status. Exam Vital Signs (past 8 hours): - 09/08/21 08:47 09/08/21 08:50 09/08/21 08:55 Temperature 97 F L Pulse Rate 70 67 62 Respiratory Rate 20 Blood Pressure 114/58 L 114/58 L Pulse Oximetry 94 91 94 09/08/21 09:00 09/08/21 09:30 09/08/21 09:32 Temperature Pulse Rate 64 58 L 57 L Respiratory Rate 24 16 18 Blood Pressure 101/66 Pulse Oximetry 93 93 94 09/08/21 10:00 09/08/21 10:30 09/08/21 11:00 Temperature Pulse Rate 53 L 53 L 57 L Respiratory Rate 23 22 22 Blood Pressure 119/63 103/57 L 118/66 Pulse Oximetry 94 90 L 92 09/08/21 11:10 09/08/21 11:30 09/08/21 12:00 Temperature Pulse Rate 53 L 53 L Respiratory Rate 22 20 Blood Pressure 118/66 97/55 L 101/57 L Pulse Oximetry 93 93 09/08/21 12:30 Temperature Pulse Rate 56 L Respiratory Rate 25 H Blood Pressure 130/68 Pulse Oximetry 94 Fraction of Inspired Oxygen 40 Oxygen Delivery Method BiPAP Oxygen Flow Rate 8 Narrative Exam Narrative: GENERAL APPEARANCE: Obese female, fatigued, appears comfortable on BiPAP SKIN: Inspection of the skin reveals no rashes, ulcerations or petechiae. HEENT: Normocephalic atraumatic, extraocular muscles are intact, oropharynx is clear and mucous membranes are moist, neck is supple without adenopathy LUNGS: Auscultation of the lungs revealed no wheezes, rhonchi, or rales. CARDIOVASCULAR: There was a regular rate and rhythm without any murmurs, gallops, rubs. Peripheral pulses were 2+ and symmetric. ABDOMEN: Soft, nontender, and nondistended MUSCULOSKELETAL: There was no tenderness or effusions noted. EXTREMITIES: No cyanosis, clubbing. There is 1 to 2+ bilateral lower extremity edema NEUROLOGIC: Alert, unable to assess orientation. Patient briefly opens her eyes to voice, falls asleep easily. Able to nod yes or no appropriately at times. Can follow simple commands. Objective ECG Impression: Normal sinus rhythm Imaging Chest x-ray: Radiologist's impression: PROCEDURE:? XR CHEST 1V ? INDICATIONS:? dyspnea ? TECHNIQUE:? One view of the chest was acquired.? ? COMPARISON:? [facility], CR, XR CHEST 1V, 08/03/2021, 23:12. ? FINDINGS:? ? Surgical changes and devices:? None.? ? Lungs and pleura:? Low lung volumes with left basilar streaky densities.? Prominence of the bronchovascular markings.? No consolidation, pleural effusions or pneumothorax.? ? Mediastinum:? Prominence of the cardiomediastinal silhouette, partially by patient rotation and technique. ? Bones and chest wall:? No suspicious bony lesions.? Overlying soft tissues appear unremarkable.? ? IMPRESSION:? Cardiomegaly with pulmonary vascular congestion. Labs Result Diagrams: 09/08/21 09:15 09/08/21 09:15 Labs: Laboratory Results - last 24 hr 09/08/21 09/08/21 09/08/21 09:15 09:15 09:15 WBC 6.6 RBC 4.63 Hgb 13.2 Hct 44.2 MCV 95.6 MCH 28.5 MCHC 29.9 L RDW 17.4 H Plt Count 179 Neut % (Auto) 80.7 H Lymph % (Auto) 8.9 L [place] % (Auto) 7.1 Eos % (Auto) 2.5 Baso % (Auto) 0.8 Neut # (Auto) 5300 Lymph # (Auto) 600 L [place] # (Auto) 500 Eos # (Auto) 200 Baso # (Auto) 100 VBG pH 7.25 L VBG pCO2 96.4 H VBG pO2 39 VBG HCO3 42 H VBG Total CO2 45 H VBG O2 Saturation 59 L VBG Base Excess 15.0 H Sodium 142 Potassium 4.8 Chloride 96 L Carbon Dioxide 40 H* BUN 22 H Creatinine 0.74 Estimated GFR > 60.0 BUN/Creatinine Ratio 29.7 H Glucose 210 H Lactate Calcium 8.8 Magnesium Total Bilirubin 0.5 AST 18 ALT 11 Alkaline Phosphatase 66 Troponin I NT-Pro-B Natriuret Pep Total Protein 6.8 Albumin 3.8 Globulin 3.0 Albumin/Globulin Ratio 1.3 Urine Color Urine Appearance Urine pH Ur Specific [place] Urine Protein Urine Glucose (UA) Urine Ketones Urine Occult Blood Urine Nitrate Urine Bilirubin Urine Urobilinogen Ur Leukocyte Esterase Urine RBC Urine WBC Urine Bacteria Ur Culture Indicated? Chlamy pneumoniae PCR Adenovirus (PCR) B. pertussis DNA (PCR) B.parapertussis DNA PCR Coronavirus OC43 (PCR) Coronavirus HKU1 (PCR) Coronavirus 229E (PCR) SARS-CoV-2 (PCR) Coronavirus NL63 (PCR) Human Metapneumovir PCR Influenza Type A (PCR) Influenza Type B (PCR) M. pneumoniae (PCR) Parainfluenza 1 (PCR) Parainfluenza 2 (PCR) Parainfluenza 3 (PCR) Parainfluenza 4 (PCR) RSV (PCR) Entero/Rhino (PCR) 09/08/21 09/08/21 09/08/21 09:15 09:15 09:15 WBC RBC Hgb Hct MCV MCH MCHC RDW Plt Count Neut % (Auto) Lymph % (Auto) [place] % (Auto) Eos % (Auto) Baso % (Auto) Neut # (Auto) Lymph # (Auto) [place] # (Auto) Eos # (Auto) Baso # (Auto) VBG pH VBG pCO2 VBG pO2 VBG HCO3 VBG Total CO2 VBG O2 Saturation VBG Base Excess Sodium Potassium Chloride Carbon Dioxide BUN Creatinine Estimated GFR BUN/Creatinine Ratio Glucose Lactate 1.5 Calcium Magnesium 2.0 Total Bilirubin AST ALT Alkaline Phosphatase Troponin I < 0.012 NT-Pro-B Natriuret Pep 774 H Total Protein Albumin Globulin Albumin/Globulin Ratio Urine Color Urine Appearance Urine pH Ur Specific [place] Urine Protein Urine Glucose (UA) Urine Ketones Urine Occult Blood Urine Nitrate Urine Bilirubin Urine Urobilinogen Ur Leukocyte Esterase Urine RBC Urine WBC Urine Bacteria Ur Culture Indicated? Chlamy pneumoniae PCR Not detected Adenovirus (PCR) Not detected B. pertussis DNA (PCR) Not detected B.parapertussis DNA PCR Not detected Coronavirus OC43 (PCR) Not detected Coronavirus HKU1 (PCR) Not detected Coronavirus 229E (PCR) Not detected SARS-CoV-2 (PCR) Not detected Coronavirus NL63 (PCR) Not detected Human Metapneumovir PCR Not detected Influenza Type A (PCR) Not detected Influenza Type B (PCR) Not detected M. pneumoniae (PCR) Not detected Parainfluenza 1 (PCR) Not detected Parainfluenza 2 (PCR) Not detected Parainfluenza 3 (PCR) Not detected Parainfluenza 4 (PCR) Not detected RSV (PCR) Not detected Entero/Rhino (PCR) Not detected 09/08/21 09/08/21 09/08/21 09:26 09:26 10:50 WBC RBC Hgb Hct MCV MCH MCHC RDW Plt Count Neut % (Auto) Lymph % (Auto) [place] % (Auto) Eos % (Auto) Baso % (Auto) Neut # (Auto) Lymph # (Auto) [place] # (Auto) Eos # (Auto) Baso # (Auto) VBG pH VBG pCO2 VBG pO2 VBG HCO3 VBG Total CO2 VBG O2 Saturation VBG Base Excess Sodium Potassium Chloride Carbon Dioxide BUN Creatinine Estimated GFR BUN/Creatinine Ratio Glucose Lactate Calcium Magnesium Total Bilirubin AST ALT Alkaline Phosphatase Troponin I NT-Pro-B Natriuret Pep Total Protein Albumin Globulin Albumin/Globulin Ratio Urine Color Yellow Urine Appearance Clear Urine pH 5.0 Ur Specific [place] 1.015 Urine Protein Negative Urine Glucose (UA) Negative Urine Ketones Negative Urine Occult Blood Negative Urine Nitrate Negative Urine Bilirubin Negative Urine Urobilinogen 0.2 Ur Leukocyte Esterase Negative Urine RBC 0-1/hpf Urine WBC 0-1/hpf Urine Bacteria None seen Ur Culture Indicated? Cult not indicated Chlamy pneumoniae PCR Adenovirus (PCR) B. pertussis DNA (PCR) B.parapertussis DNA PCR Coronavirus OC43 (PCR) Coronavirus HKU1 (PCR) Coronavirus 229E (PCR) SARS-CoV-2 (PCR) Negative Negative Coronavirus NL63 (PCR) Human Metapneumovir PCR Influenza Type A (PCR) Influenza Type B (PCR) M. pneumoniae (PCR) Parainfluenza 1 (PCR) Parainfluenza 2 (PCR) Parainfluenza 3 (PCR) Parainfluenza 4 (PCR) RSV (PCR) Entero/Rhino (PCR) Assessment & Plan Assessment & Plan narrative: This is a 70-year-old female with a past medical history of chronic hypercapnic and hypoxemic respiratory failure, obesity hypoventilation syndrome, COPD, diabetes, chronic pain with opioid medications, atrial fibrillation, and mild dementia who was sent to the emergency room for hypoxia noted at her assisted living facility, [facility]. They also reported that she had been having increasing lethargy and confusion. Patient was admitted for further management of acute on chronic hypercarbic and hypercapnic respiratory failure likely secondary to COPD exacerbation. 1. acute on chronic hypercapnic and hypoxemic respiratory failure secondary to COPD exacerbation with possible acute heart failure, - continue steroids, RT eval and treat. - did not respond to initial 1st hour of bipap, PCO2 from 96>91. Given goals of care (no intubation), continue BiPAP for now. Replace home COPD medications with formulary pulmicort, duonebs. - consider palliative care discussions depending on progress - given lasix in the ER, proBNP slightly elevated. Will hold on further diu resis at this time pending limited TTE. - respiratory panel negative. - critical care consultation reflexed given on bipap. Admitted to ICU. 2. Essential hypertension with paroxysmal atrial fibrillation without chronic anticoagulation, chronic, present on admission - continue telemetery - not on AC - continue home medications as able when tolerating PO intake. 3. Hyperlipidemia and insulin-dependent type 2 diabetes, chronic, present on admission - sliding scale ordered, can continue home insulin with caution for hypoglycemia while NPO. 4. Chronic pain with hx of opiate dependence, chronic, present on admission -continue patient's gabapentin when able 5. GERD, chronic, present on admission Continue patient's pantoprazole when able. 6. Alzheimer's dementia, acute on chronic, present on admission - continue donepezil when able. Code status:? DNR Surrogate decision maker Jed sharif patient's son SYED PCR:? Negative DVT/VTE prophylaxis:? Lovenox daily Disposition:?admit to ICUac I have utilized all available immediate resources to obtain, update, or review the patient's current medications. I confirmed that the patient's advanced care plan is present, Code status is documented and/or surrogate decision maker is listed in the patient's medical record. I spent 30 minutes providing critical care management this patient. This excludes time spent in performing separately billed procedures. Time Spent With Patient Critical Care time: I spent a total of [] minutes of critical care time on this patient's care today; this time is exclusive of procedural time. Quality MIPS - Admit I confirm the patient?s Advance Care Plan is present, Code status is documented, Surrogate decision maker is in patient?s record [If Yes, STOP here]: Yes
--- NOTE | 2021-09-08 14:08 | PC.NURSE ---
Addendum entered by Leila Redman R.N. 09/08/21 14:54: PT REMOVED BIPAP AND WOULD NOT ALLOW THIS RN TO REPLACE BIPAP- PLACED ON 2L NC AND CALL TO [facility] Original Note: PT TRANSPORTED TO ROOM 226 FROM ED- PT NON-VERBAL AND LETHARGIC VERY LITTLE INDEPENDENT MOVEMENT NOTED. IV X 2 NO FLUIDS RUNNING , MRSA SWAB SENT - WRIGHT PATENT WITH PALE CLEAR URINE AFTER RECEIVING LARGE DOSE OF LASIX IN ED- ON BIPAP 40% 08/06 WITH SPO2 91%.
[2021-09-08] MEDS: INSULIN LISPRO 100 UNIT/ML 3ML VIAL SUBCUT ×2 (16:56→21:14)
[2021-09-08 17:44] LABS: HCO3 VBG 49 mmol/L (23-28); PCO2 VBG 88.8 mmHg (45-50); PO2 VBG 54 mmHg (35-45); pH VBG 7.35 (7.33-7.43)
[2021-09-08 17:45] LABS: Oxygen Saturation VBG 83 % (70-75); Total CO2 VBG > 50 mmol/L (24-29)
[2021-09-08 17:47] LABS: HCO3 VBG 44 mmol/L (23-28); PCO2 VBG 91.7 mmHg (45-50); PO2 VBG 72 mmHg (35-45); Total CO2 VBG 47 mmol/L (24-29); pH VBG 7.29 (7.33-7.43)
[2021-09-08 17:48] LABS: Oxygen Saturation VBG 91 % (70-75)
--- NOTE | 2021-09-08 21:04 | PM.ICURNDS ---
- Date Patient Seen: 09/08/21 Time Patient Seen: 21:05 :: This patient was seen via real time interactive two-way audiovisual telecommunication. Note: Patient discussed during nocturnal ICU multidisciplinary rounds. Labs/orders reviewed. Formal teleintensivist consultation was planned but the patient has been downgraded to acute care status as she is no longer on NIPPV; she is on 2L/min. She is refusing most interventions and code status is DNR/DNI. Continue management as per hospitalist team.
[2021-09-08] MEDS: ATORVASTATIN 20 MG TABLET 80 MG PO (21:12)
[2021-09-08] MEDS: GABAPENTIN 300 MG CAPSULE PO (21:12)
[2021-09-08] MEDS: INSULIN GLARGINE 100 UNIT/ML 3ML PEN 9 UNIT SUBCUT (21:13)
[2021-09-08] MEDS: ACETAMINOPHEN 325 MG TABLET 650 MG PO (21:13)
[2021-09-09 00:05] VITALS: BP 109/59; PULSE 73; RESP 18; TEMP 36.5; O2SAT 92
[2021-09-09 05:27] VITALS: BP 100/59; PULSE 66; RESP 14; TEMP 36.1; O2SAT 91
[2021-09-09] MEDS: PANTOPRAZOLE DR 20 MG TABLET PO (05:34)
[2021-09-09 06:11] LABS: pH VBG 7.37 (7.33-7.43)
[2021-09-09 06:12] LABS: HCO3 VBG 45 mmol/L (23-28); Oxygen Saturation VBG 56 % (70-75); PCO2 VBG 77.2 mmHg (45-50); PO2 VBG 32 mmHg (35-45); Total CO2 VBG 47 mmol/L (24-29)
[2021-09-09 06:24] LABS: Add Manual Diff / Slide Review NO; Basophils Absolute Auto 0 /uL (0-100); Basophils Percent Auto 0.3 % (0-2); Eosinophils Absolute Auto 0 /uL (0-450); Hematocrit 42.1 % (36-46); Lymphocytes Absolute Auto 500 /uL (1100-4500); Lymphocytes Percent Auto 6.5 % (25-40); Mean Corpuscular Hemoglobin 28.7 PG (26-34); Mean Corpuscular Volume 92.7 fL (80-100); Monocytes Absolute Auto 300 /uL (0-900); Monocytes Percent Auto 4.9 % (3-14); Neutrophils Absolute Auto 6100 /uL (1500-7000); Neutrophils Percent Auto 88.3 % (50-75); Platelet Count 190 X10^3/uL (150-400); Red Blood Cell Count 4.54 X10^6/uL (4.0-5.2); Red Cell Distribution Width 16.3 % (11.6-14.8); White Blood Cell Count 6.9 X10^3/uL (4.5-11.0)
[2021-09-09 06:32] LABS: BUN Creatinine Ratio 44.1 (6-22); Blood Urea Nitrogen 30 mg/dL (7-17); Calcium 8.8 mg/dL (8.4-10.2); Chloride 90 mmol/L (98-107); Estimated Glomerular Filt Rate > 60.0 mL/min (>60); Glucose 164 mg/dL (80-110); HEMOLYSIS < 15 (0-50); Magnesium 2.1 mg/dL (1.6-2.3); Potassium 4.4 mmol/L (3.4-5.1); Sodium 137 mmol/L (137-145)
[2021-09-09 06:44] LABS: Carbon Dioxide 40 mmol/L (22-32)
[2021-09-09 08:00] VITALS: BP 123/69; PULSE 60; RESP 18; TEMP 36.7; O2SAT 92
[2021-09-09] MEDS: DONEPEZIL 5 MG TABLET 20 MG PO (08:26)
[2021-09-09] MEDS: ASPIRIN EC 81 MG TABLET PO (08:26)
[2021-09-09] MEDS: GABAPENTIN 300 MG CAPSULE PO (08:26)
[2021-09-09] MEDS: ENOXAPARIN 40 MG/0.4 ML SYRINGE SUBCUT (08:26)
[2021-09-09] MEDS: dilTIAZem CD 180 MG CAP PO (08:26)
[2021-09-09] MEDS: FERROUS SULFATE 325 MG TABLET PO (08:26)
[2021-09-09] MEDS: SODIUM CHLORIDE 0.9% FLUSH 10 ML IV (08:27)
--- NOTE | 2021-09-09 09:02 | CM.DANOTE ---
Addendum entered by Iman Allen R.N. 09/09/21 13:12: Nurse, Esther had given report to nursing at [facility], and nurse had indicated that they were working on transportation. This financial planner had not yet heard back, left a message with Patti, resident coordinator, who had not called back. Was going to call nursing back, but [facility] showed up here to greens picker patient. They had not provided oxygen for transport, and staff was going to see how patient did without her oxygen. Plan is back to [facility] today. Hospitalist had discussed goals of care to patient today. Addendum entered by Iman Allen R.N. 09/09/21 09:31: Dr. Macias is discharging patient. Called over at [facility], left initial message with Patti, who is the resident coordinator. Then, called nursing. Spoke to Nicky. She indicated, we aren't taking her back without any orders. Let her know that this financial planner will be faxing over orders. Have signed medication list. Nicky then called back and indicated, she comes in with respiratory failure, and you're discharging her? Let her know that patient is stable, was eating her breakfast with no distress. Nicky indicated, you have sent people back to us before that weren't stable. Let her know that hospitalist would not sent her back if she was not stable. Also, let her know that nursing will give report. Esther, nurse, will call report, and will get a time of greens picker. Original Note: DCP: Case received, EMR reviewed and met with patient. Introduced self and role. Was able to obtain some information from patient regarding her current living situation and baseline activity and needs at her facility. DCP assessment completed with information currently available. Patient is a 70 year old female who admitted yesterday afternoon to the care of the hospitalist team. PCP: Dr. Saini. Payer: confirmed: [facility] Medicare. Patient came to the hospital via ambulance from [facility] secondary to having some increased shortness of breath. Patient has history of COPD, and is on oxygen continuous at 2 liters. Patient was diagnosed with acute resp. failure with hypoxia. Met with patient in her room. She was sitting up in bed having her breakfast, oxygen in place. She was alert and oriented, and confirmed that she is a resident of [facility]. She indicated, she is mostly in her wheel-chair, she does get assistance with showers. She confirmed that her son, Jed, is the main contact, but she also has a daughter named Brionna that is local as well. Patient is DNR with limited interventions. P: DCP to continue to follow. Patient should be able to return to [facility]. Will need to contact the facility for updates, and if patient will be returning there today. Iman Allen RN/Lead Technologist In [employer] Discharge Planning/Care Management Advanced directive, confirm from FAMILY Start: 09/08/21 13:43 Freq: Q24H Status: Complete Protocol: Document 09/08/21 13:45 TJB (Rec: 09/08/21 13:46 TJB [id number]) Advance Directive, confirm on record Time 13:46 Person contacted [facility] Copy received Yes Advanced directive available on record Yes CM Discharge Assessment Start: 09/09/21 08:59 Freq: Status: Active Protocol: Document 09/09/21 08:59 (Rec: 09/09/21 09:02 [id number]) Discharge Planning Assessment Assigned Director Business Management Iman Allen RN/Lead Technologist In [employer] Advance Directives? Yes Advance Directives on File No History Provided By Patient,Medical Record Prior Living Arrangements Assisted Living Household Members family,children,none Type of transporation used prior to Relies on Others admit Facility Name Admitted From: [facility] Willing to Return to Facility? Yes Independent with ADL's Yes Is patient alert and oriented? Yes Needs Assistance With Bathing,Meal Prep,Toileting, Managing Medications,Home Chores / Shopping Caregiver for Another No DME Already Rented / Owned Wheelchair,FWW / Walker Comment Back to [facility] Barriers to Discharge No Discharge Plan Home Transportation Arrangement [facility] Whiteboard Updated in Patient Room with Yes name and ext. # of Director Business Management Review Status In Process Next Review Type Continued Stay Review
--- NOTE | 2021-09-09 09:05 | PM.DS.1 ---
History of Present Illness History of Present Illness Date Patient Seen: 09/09/21 Time Patient Seen: 09:05 Chief complaint: AMS, Tremor Narrative: History is obtained largely via chart review given the patient's current mental status. This is a 70-year-old female with a past medical history of chronic hypercapnic and hypoxemic respiratory failure, obesity hypoventilation syndrome, COPD, diabetes, chronic pain with opioid medications, atrial fibrillation, and mild dementia who was sent to the emergency room for hypoxia noted at her assisted living facility, [place]. They also reported that she had been having increasing lethargy and confusion. History is currently unable to be obtained by the patient. She is arousable but quite somnolent and fatigued. She occasionally nods but cannot reliably state a history at the current time. In the emergency room, the patient was tachypneic, hypoxic into the 70s on room air. Blood gas showed a pCO2 of 96 and the patient was started on BiPAP therapy. Her code status and POLST form state that she is DNR/DNI with limited interventions which do include BiPAP therapy. After about 1 hour on the BiPAP machine her pCO2 had improved very slightly to 91. She also had a slightly elevated proBNP and was given a dose of Lasix. Patient was admitted for further management of acute on chronic hypercarbic and hypercapnic respiratory failure likely secondary to COPD exacerbation. Discharge Providers Provider Date of admission: 09/08/21 12:08 Discharge Date: 09/09/21 Primary care physician: Johnny Saini MD Consults: 09/08/21 13:38 Consult to Tele-wheelman Routine Comment: Consulting Provider: [employer] Reason for consultation: Marketing [employer] Analyst services 09/08/21 13:46 Consult to Respiratory Therapy Evaluate & Treat Comment: Physician Instructions: Evaluate and treat Discharge provider: Arik Macias DO Summary Hospital Course Discharge Diagnosis: 1. acute on chronic hypercapnic and hypoxemic respiratory failure secondary to COPD exacerbation 2. Essential hypertension with paroxysmal atrial fibrillation without chronic anticoagulation, chronic, present on admission 3. Hyperlipidemia and insulin-dependent type 2 diabetes, chronic, present on admission 4. Chronic pain with hx of opiate dependence, chronic, present on admission 5. GERD, chronic, present on admission 6. Alzheimer's dementia, acute on chronic, present on admission Hospital Course: This is a 70-year-old female with a past medical history of chronic hypercapnic and hypoxemic respiratory failure, obesity hypoventilation syndrome, COPD, diabetes, chronic pain with opioid medications, atrial fibrillation, and mild dementia who was sent to the emergency room for hypoxia noted at her assisted living facility, [place].? They also reported that she had been having increasing lethargy and confusion. Patient was admitted for further management of acute on chronic hypercarbic and hypercapnic respiratory failure likely secondary to COPD exacerbation. She was initially placed on BiPAP therapy with minimal improvement in her pCO2, however the patient became agitated and wished for the BiPAP mask to be removed. Despite removal, with oxygen titration to the upper 80s to low 90s, her pCO2 continued to improve while on steroid therapy. The following day pCO2 had improved in her mentation was much better. She was eating and tolerating a diet. There was a question of volume overload on admission, and the patient did receive a dose of Lasix, however this appeared less likely given her continued improvement. Echocardiogram was not necessary at this time. Patient was discharged on a prednisone taper. Recommend that she revisit her goals of care as an outpatient, with possible palliative care consultation, but patient was not ready to state that she would never put on a BiPAP mask again should her hypercarbia recur and current POLST form is consistent with this. Recommend limiting oxygen at home, with using as little as possible to maintain an oxygen saturation between 89 and 96% while on supplemental therapy to avoid hypercarbia. Time Spent with Patient Time spent: Greater than 30 minutes Exam Vital Signs (past 8 hours): - 09/09/21 05:27 09/09/21 08:00 Temperature 96.9 F L 98.1 F Pulse Rate 66 60 Respiratory Rate 14 18 Blood Pressure 100/59 L 123/69 Pulse Oximetry 91 92 Fraction of Inspired Oxygen 40 Oxygen Delivery Method Nasal Cannula Oxygen Flow Rate 4 Narrative Exam Narrative: GENERAL APPEARANCE:? Obese female, no acute distress. SKIN: Inspection of the skin reveals no rashes, ulcerations or petechiae. HEENT:? Normocephalic atraumatic, extraocular muscles are intact, oropharynx is clear and mucous membranes are moist, neck is supple without adenopathy LUNGS: Auscultation of the lungs revealed no wheezes, rhonchi, or rales. CARDIOVASCULAR: There was a regular rate and rhythm without any murmurs, gallops, rubs. Peripheral pulses were 2+ and symmetric. ABDOMEN:? Soft, nontender, and nondistended MUSCULOSKELETAL: There was no tenderness or effusions noted. EXTREMITIES: No cyanosis, clubbing.? There is 1 to 2+ bilateral lower extremity edema NEUROLOGIC:? awake and alert, no focal deficits Objective Labs Result Diagrams: 09/09/21 05:50 09/09/21 05:50 Labs: Laboratory Results - last 24 hr 09/08/21 09/08/21 09/08/21 09:15 09:15 09:15 WBC 6.6 RBC 4.63 Hgb 13.2 Hct 44.2 MCV 95.6 MCH 28.5 MCHC 29.9 L RDW 17.4 H Plt Count 179 Neut % (Auto) 80.7 H Lymph % (Auto) 8.9 L Travis % (Auto) 7.1 Eos % (Auto) 2.5 Baso % (Auto) 0.8 Neut # (Auto) 5300 Lymph # (Auto) 600 L Travis # (Auto) 500 Eos # (Auto) 200 Baso # (Auto) 100 VBG pH 7.25 L VBG pCO2 96.4 H VBG pO2 39 VBG HCO3 42 H VBG Total CO2 45 H VBG O2 Saturation 59 L VBG Base Excess 15.0 H Sodium 142 Potassium 4.8 Chloride 96 L Carbon Dioxide 40 H* BUN 22 H Creatinine 0.74 Estimated GFR > 60.0 BUN/Creatinine Ratio 29.7 H Glucose 210 H Lactate Calcium 8.8 Magnesium Total Bilirubin 0.5 AST 18 ALT 11 Alkaline Phosphatase 66 Troponin I NT-Pro-B Natriuret Pep Total Protein 6.8 Albumin 3.8 Globulin 3.0 Albumin/Globulin Ratio 1.3 Urine Color Urine Appearance Urine pH Ur Specific [place] Urine Protein Urine Glucose (UA) Urine Ketones Urine Occult Blood Urine Nitrate Urine Bilirubin Urine Urobilinogen Ur Leukocyte Esterase Urine RBC Urine WBC Urine Bacteria Ur Culture Indicated? Nasal Screen MRSA (PCR) Chlamy pneumoniae PCR Adenovirus (PCR) B. pertussis DNA (PCR) B.parapertussis DNA PCR Coronavirus OC43 (PCR) Coronavirus HKU1 (PCR) Coronavirus 229E (PCR) SARS-CoV-2 (PCR) Coronavirus NL63 (PCR) Human Metapneumovir PCR Influenza Type A (PCR) Influenza Type B (PCR) M. pneumoniae (PCR) Parainfluenza 1 (PCR) Parainfluenza 2 (PCR) Parainfluenza 3 (PCR) Parainfluenza 4 (PCR) RSV (PCR) Entero/Rhino (PCR) 09/08/21 09/08/21 09/08/21 09:15 09:15 09:15 WBC RBC Hgb Hct MCV MCH MCHC RDW Plt Count Neut % (Auto) Lymph % (Auto) Travis % (Auto) Eos % (Auto) Baso % (Auto) Neut # (Auto) Lymph # (Auto) Travis # (Auto) Eos # (Auto) Baso # (Auto) VBG pH VBG pCO2 VBG pO2 VBG HCO3 VBG Total CO2 VBG O2 Saturation VBG Base Excess Sodium Potassium Chloride Carbon Dioxide BUN Creatinine Estimated GFR BUN/Creatinine Ratio Glucose Lactate 1.5 Calcium Magnesium 2.0 Total Bilirubin AST ALT Alkaline Phosphatase Troponin I < 0.012 NT-Pro-B Natriuret Pep 774 H Total Protein Albumin Globulin Albumin/Globulin Ratio Urine Color Urine Appearance Urine pH Ur Specific [place] Urine Protein Urine Glucose (UA) Urine Ketones Urine Occult Blood Urine Nitrate Urine Bilirubin Urine Urobilinogen Ur Leukocyte Esterase Urine RBC Urine WBC Urine Bacteria Ur Culture Indicated? Nasal Screen MRSA (PCR) Chlamy pneumoniae PCR Not detected Adenovirus (PCR) Not detected B. pertussis DNA (PCR) Not detected B.parapertussis DNA PCR Not detected Coronavirus OC43 (PCR) Not detected Coronavirus HKU1 (PCR) Not detected Coronavirus 229E (PCR) Not detected SARS-CoV-2 (PCR) Not detected Coronavirus NL63 (PCR) Not detected Human Metapneumovir PCR Not detected Influenza Type A (PCR) Not detected Influenza Type B (PCR) Not detected M. pneumoniae (PCR) Not detected Parainfluenza 1 (PCR) Not detected Parainfluenza 2 (PCR) Not detected Parainfluenza 3 (PCR) Not detected Parainfluenza 4 (PCR) Not detected RSV (PCR) Not detected Entero/Rhino (PCR) Not detected 09/08/21 09/08/21 09/08/21 09:26 09:26 10:50 WBC RBC Hgb Hct MCV MCH MCHC RDW Plt Count Neut % (Auto) Lymph % (Auto) Travis % (Auto) Eos % (Auto) Baso % (Auto) Neut # (Auto) Lymph # (Auto) Travis # (Auto) Eos # (Auto) Baso # (Auto) VBG pH VBG pCO2 VBG pO2 VBG HCO3 VBG Total CO2 VBG O2 Saturation VBG Base Excess Sodium Potassium Chloride Carbon Dioxide BUN Creatinine Estimated GFR BUN/Creatinine Ratio Glucose Lactate Calcium Magnesium Total Bilirubin AST ALT Alkaline Phosphatase Troponin I NT-Pro-B Natriuret Pep Total Protein Albumin Globulin Albumin/Globulin Ratio Urine Color Yellow Urine Appearance Clear Urine pH 5.0 Ur Specific [place] 1.015 Urine Protein Negative Urine Glucose (UA) Negative Urine Ketones Negative Urine Occult Blood Negative Urine Nitrate Negative Urine Bilirubin Negative Urine Urobilinogen 0.2 Ur Leukocyte Esterase Negative Urine RBC 0-1/hpf Urine WBC 0-1/hpf Urine Bacteria None seen Ur Culture Indicated? Cult not indicated Nasal Screen MRSA (PCR) Chlamy pneumoniae PCR Adenovirus (PCR) B. pertussis DNA (PCR) B.parapertussis DNA PCR Coronavirus OC43 (PCR) Coronavirus HKU1 (PCR) Coronavirus 229E (PCR) SARS-CoV-2 (PCR) Negative Negative Coronavirus NL63 (PCR) Human Metapneumovir PCR Influenza Type A (PCR) Influenza Type B (PCR) M. pneumoniae (PCR) Parainfluenza 1 (PCR) Parainfluenza 2 (PCR) Parainfluenza 3 (PCR) Parainfluenza 4 (PCR) RSV (PCR) Entero/Rhino (PCR) 09/08/21 09/08/21 09/08/21 12:30 14:00 16:15 WBC RBC Hgb Hct MCV MCH MCHC RDW Plt Count Neut % (Auto) Lymph % (Auto) Travis % (Auto) Eos % (Auto) Baso % (Auto) Neut # (Auto) Lymph # (Auto) Travis # (Auto) Eos # (Auto) Baso # (Auto) VBG pH 7.29 L 7.35 VBG pCO2 91.7 H 88.8 H VBG pO2 72 H 54 H VBG HCO3 44 H 49 H VBG Total CO2 47 H > 50 H VBG O2 Saturation 91 H 83 H VBG Base Excess 18.0 H 23.0 H Sodium Potassium Chloride Carbon Dioxide BUN Creatinine Estimated GFR BUN/Creatinine Ratio Glucose Lactate Calcium Magnesium Total Bilirubin AST ALT Alkaline Phosphatase Troponin I NT-Pro-B Natriuret Pep Total Protein Albumin Globulin Albumin/Globulin Ratio Urine Color Urine Appearance Urine pH Ur Specific [place] Urine Protein Urine Glucose (UA) Urine Ketones Urine Occult Blood Urine Nitrate Urine Bilirubin Urine Urobilinogen Ur Leukocyte Esterase Urine RBC Urine WBC Urine Bacteria Ur Culture Indicated? Nasal Screen MRSA (PCR) Negative for mrsa Chlamy pneumoniae PCR Adenovirus (PCR) B. pertussis DNA (PCR) B.parapertussis DNA PCR Coronavirus OC43 (PCR) Coronavirus HKU1 (PCR) Coronavirus 229E (PCR) SARS-CoV-2 (PCR) Coronavirus NL63 (PCR) Human Metapneumovir PCR Influenza Type A (PCR) Influenza Type B (PCR) M. pneumoniae (PCR) Parainfluenza 1 (PCR) Parainfluenza 2 (PCR) Parainfluenza 3 (PCR) Parainfluenza 4 (PCR) RSV (PCR) Entero/Rhino (PCR) 09/09/21 09/09/21 09/09/21 05:48 05:50 05:50 WBC 6.9 RBC 4.54 Hgb 13.0 Hct 42.1 MCV 92.7 MCH 28.7 MCHC 31.0 RDW 16.3 H Plt Count 190 Neut % (Auto) 88.3 H Lymph % (Auto) 6.5 L Travis % (Auto) 4.9 Eos % (Auto) 0.0 L Baso % (Auto) 0.3 Neut # (Auto) 6100 Lymph # (Auto) 500 L Travis # (Auto) 300 Eos # (Auto) 0 Baso # (Auto) 0 VBG pH 7.37 VBG pCO2 77.2 H VBG pO2 32 L VBG HCO3 45 H VBG Total CO2 47 H VBG O2 Saturation 56 L VBG Base Excess 19.0 H Sodium 137 Potassium 4.4 Chloride 90 L Carbon Dioxide 40 H* BUN 30 H Creatinine 0.68 Estimated GFR > 60.0 BUN/Creatinine Ratio 44.1 H Glucose 164 H Lactate Calcium 8.8 Magnesium 2.1 Total Bilirubin AST ALT Alkaline Phosphatase Troponin I NT-Pro-B Natriuret Pep Total Protein Albumin Globulin Albumin/Globulin Ratio Urine Color Urine Appearance Urine pH Ur Specific [place] Urine Protein Urine Glucose (UA) Urine Ketones Urine Occult Blood Urine Nitrate Urine Bilirubin Urine Urobilinogen Ur Leukocyte Esterase Urine RBC Urine WBC Urine Bacteria Ur Culture Indicated? Nasal Screen MRSA (PCR) Chlamy pneumoniae PCR Adenovirus (PCR) B. pertussis DNA (PCR) B.parapertussis DNA PCR Coronavirus OC43 (PCR) Coronavirus HKU1 (PCR) Coronavirus 229E (PCR) SARS-CoV-2 (PCR) Coronavirus NL63 (PCR) Human Metapneumovir PCR Influenza Type A (PCR) Influenza Type B (PCR) M. pneumoniae (PCR) Parainfluenza 1 (PCR) Parainfluenza 2 (PCR) Parainfluenza 3 (PCR) Parainfluenza 4 (PCR) RSV (PCR) Entero/Rhino (PCR) [facility] Medical History Atrial fibrillation Cholelithiasis Chronic respiratory failure with hypoxia and hypercapnia Depression Diabetes Fracture of left ankle Hyperlipidemia Hypertension Inguinal hernia Iron deficiency anemia Lumbar degenerative disc disease Morbid obesity Obesity hypoventilation syndrome Osteoarthritis Paroxysmal atrial fibrillation Pneumococcal meningitis Prolapsed bladder Surgical History History of abdominoplasty History of gastric bypass Family History Mother Heart disease Father No problems noted. Social History household members: family, children and none Smoking Status: Former smoker alcohol intake: former additional social history: lives alone Discharge Plan Discharge Plan Patient Disposition: Assisted Living Transfer to: [facility] Provider Discharge Comment: Patient was admitted for hypercarbia and hypoxia. improved quickly. She refused BiPAP mask but CO2 level continued to improve. Please limit supplemental oxygen to maintain O2 saturations between 88-96% at home. Ideally on the lower end of that range. Please continue goals of care discussions with PCP, patient is becoming more and more hesitant to use BiPAP when needed, but currently would want this. Discharge orders & Medications Discharge Orders: Discharge (Order); Ordered 09/09/21 Ordered By: Arik Macias Prescriptions: New prednisone 20 mg tablet 40 mg PO DAILY 4 Days Qty: 8 RF: 0 Continued ursodiol 300 mg capsule 300 mg PO BID RF: 0 aspirin 81 mg Tablet,Delayed Release (Dr/Ec) 81 mg PO DAILY RF: 0 cetirizine [Allergy Relief (cetirizine)] 10 mg Tablet 1 tab PO DAILY RF: 0 ferrous sulfate 325 mg (65 mg iron) Tablet 1 tab PO QAM RF: 0 ondansetron HCl 4 mg tablet 4 mg PO Q6HR PRN (Reason: Nausea) RF: 0 albuterol sulfate [Ventolin HFA] 90 mcg/actuation Hfa Aerosol Inhaler 2 puff INHALATION Q4H PRN (Reason: Wheezing) Qty: 0 RF: 0 metoprolol tartrate 25 mg tablet 12.5 mg PO BID RF: 0 Lantus Solostar U-100 Insulin 100 unit/mL (3 mL) insulin pen 9 unit SUBCUT BEDTIME RF: 0 donepezil 10 mg tablet 20 mg PO QAM RF: 0 nystatin 100,000 unit/gram powder 100,000 unit TOPICAL BID RF: 0 sennosides [senna] 8.6 mg tablet 17.2 mg PO Q12H PRN (Reason: Constipation) RF: 0 potassium chloride [Klor-Con M10] 10 mEq tablet,ER particles/crystals 20 meq PO DAILYCC RF: 0 acetaminophen 325 mg Tablet 650 mg PO Q6H PRN (Reason: PAIN) RF: 0 loperamide 2 mg Tablet 2 mg PO Q24H PRN (Reason: LOOSE STOOLS) RF: 0 acetaminophen 500 mg Tablet 1,000 mg PO BID RF: 0 pantoprazole 20 mg Tablet,Delayed Release (Dr/Ec) 20 mg PO DAILY RF: 0 ejfxkprgrcc-gibubmhbu-rmczdnzs 100-62.5-25 mcg Blister With Device 1 inh INHALATION DAILY RF: 0 gabapentin 300 mg Capsule 300 mg PO TID RF: 0 atorvastatin 80 mg tablet 80 mg PO BEDTIME RF: 0 torsemide 20 mg tablet 1 tab PO QAM RF: 0 polyethylene glycol 3350 [Miralax] 17 gram Powder In Packet 17 g PO BID PRN (Reason: Constipation) RF: 0 diltiazem HCl 180 mg capsule,extended release 24hr 180 mg PO DAILY RF: 0 vitamin A and D Ointment 1 applic TOPICAL BID RF: 0 insulin lispro [Humalog KwikPen Insulin] 100 unit/mL Insulin Pen 1 sliding scale dose SUBCUT BIDAC RF: 0 melatonin 1 mg Tablet 1 mg PO BEDTIME PRN (Reason: Insomnia) RF: 0 Medication counseling provided by Pharmacist: Yes Follow up/Referrals: Johnny Saini MD [Primary Care Provider] - Discharge Health Status Multidrug resistant organism: No MDRO Precautions: [place] Diet/Activity/Treatments Diet: Diet as Tolerated and Carb-consistent/Diabetic Activity: As tolerated Discharge Data Primary Care Provider: Johnny Saini
[2021-09-09 10:24] VITALS: O2SAT 94
[2021-09-09 10:40] VITALS: O2SAT 96
--- NOTE | 2021-09-09 10:47 | PC.NURSE ---
Patient alert, oriented, tolerated breakfast. Oxygen down to 1L sats 96%, LS diminished but clear. Patient bathed and hoyered to chair.
[2021-09-09] MEDS: CALCIUM CARBONATE 500 MG TAB PO (11:04)
[2021-09-09 11:12] VITALS: O2SAT 95
== END 2021-09-09 12:26 | DRG 190 ==
LOC: ED 11:40 → AC 12:08 → ICU 12:40 → AC 09-09 01:10
PROVIDERS: Admitting Provider Internal Medicine; Emergency Provider Emergency Medicine; PCP Internal Medicine; Referring Provider Emergency Medicine; Visit Provider Internal Medicine
DX: J44.1 Chronic obstructive pulmonary disease with (acute) exacerbation (principal); J96.21 Acute and chronic respiratory failure with hypoxia; J96.22 Acute and chronic respiratory failure with hypercapnia; G93.41 Metabolic encephalopathy; E66.2 Morbid (severe) obesity with alveolar hypoventilation; Z68.43 Body mass index [BMI] 50.0-59.9, adult; F11.20 Opioid dependence, uncomplicated; I48.0 Paroxysmal atrial fibrillation; G89.29 Other chronic pain; E11.9 Type 2 diabetes mellitus without complications; I10 Essential (primary) hypertension; E78.5 Hyperlipidemia, unspecified; K21.9 Gastro-esophageal reflux disease without esophagitis; G30.9 Alzheimer's disease, unspecified; F02.80 Dementia in other diseases classified elsewhere, unspecified severity, without behavioral disturbance, psychotic disturbance, mood disturbance, and anxiety; D50.9 Iron deficiency anemia, unspecified; Z87.891 Personal history of nicotine dependence; Z79.4 Long term (current) use of insulin; Z20.822 Contact with and (suspected) exposure to COVID-19; Z66 Do not resuscitate; Z79.01 Long term (current) use of anticoagulants
CPT/HCPCS: 36415; 71045; 80048; 80053; 81001; 82805; 82962; 83605; 83735; 83880; 84484; 85025; 87040; 87633; 87635; 87797; 93005; 93010; 94660; 94760; 94762; 96365; 96368; 96375; 99285; 99291; C9803; J1650; J1815; J1940; J2920; J2930; J3475

== ENCOUNTER 2021-09-14 11:05 | Emergency (ER) | payer MEDICARE, MEDICAID, SELFPAY ==
[2021-09-08 13:20] VITALS: PULSE 59; RESP 20; O2SAT 92
[2021-09-08 13:24] VITALS: BMI 55.5
[2021-09-14] VITALS (12 sets, daily range): BP systolic 104–128; BP diastolic 57–63; PULSE 62–75; RESP 20–27; TEMP 37.2; O2SAT 87–96; BMI 58.7
[2021-09-14 11:14] LABS: Add Manual Diff / Slide Review NO; Basophils Absolute Auto 100 /uL (0-100); Basophils Percent Auto 0.9 % (0-2); Eosinophils Absolute Auto 100 /uL (0-450); Eosinophils Percent Auto 1.5 % (2-4); Hematocrit 39.8 % (36-46); Hemoglobin 12.1 g/dL (12.0-16.0); Lymphocytes Absolute Auto 900 /uL (1100-4500); Lymphocytes Percent Auto 10.7 % (25-40); Mean Corpuscular HGB Conc 30.5 % (30-36); Mean Corpuscular Hemoglobin 28.3 PG (26-34); Mean Corpuscular Volume 92.9 fL (80-100); Monocytes Absolute Auto 700 /uL (0-900); Monocytes Percent Auto 8.6 % (3-14); Neutrophils Absolute Auto 6700 /uL (1500-7000); Neutrophils Percent Auto 78.3 % (50-75); Platelet Count 178 X10^3/uL (150-400); Red Blood Cell Count 4.28 X10^6/uL (4.0-5.2); Red Cell Distribution Width 16.5 % (11.6-14.8); White Blood Cell Count 8.6 X10^3/uL (4.5-11.0)
[2021-09-14 11:20] LABS: Prothrombin Time 11.7 SECONDS (10.1-12.7)
[2021-09-14 11:22] LABS: PTT Partial Thromboplastin Tim 29 SECONDS (26.4-36.2)
[2021-09-14 11:25] LABS: Alanine Aminotransferase 14 IU/L (<35); Albumin 3.5 g/dL (3.5-5.0); Albumin Globulin Ratio 1.3 (1.0-2.8); Alkaline Phosphatase 53 U/L (38-126); Aspartate Aminotransferase 16 IU/L (14-36); BUN Creatinine Ratio 104.8 (6-22); Bilirubin Total 0.7 mg/dL (0.2-1.3); Blood Urea Nitrogen 65 mg/dL (7-17); Calcium 8.4 mg/dL (8.4-10.2); Carbon Dioxide 37 mmol/L (22-32); Chloride 98 mmol/L (98-107); Estimated Glomerular Filt Rate > 60.0 mL/min (>60); Globulin 2.6 g/dL (1.7-4.1); Glucose 196 mg/dL (80-110); HEMOLYSIS < 15 (0-50); Sodium 138 mmol/L (137-145); Total Protein 6.1 g/dL (6.3-8.2)
--- NOTE | 2021-09-14 11:38 | ED.GIBLEED ---
HPI - GI Bleed General Chief complaint: GI Bleed Stated complaint: GI Bleed Time Seen by Provider: 09/14/21 11:29 Source: patient and EMS Mode of arrival: EMS Limitations: no limitations History of Present Illness HPI Narrative: Patient is a 70-year-old female. Except for aspirin is not on any anticoagulation. She states that she is brought to the emergency department because she had 1 very large black bowel movement this morning. She stated that she was given some laxatives this morning by the care facility where she lives. She is unsure why they gave this to where she felt that she was having normal bowel movements. States that this morning she had a lot of lower abdominal pain which has since resolved since the bowel movement this morning. She denies any blood in her urine. Denies any other urinary symptoms. No vomiting. No fevers. Related Data Home Medications Medication Instructions Recorded Confirmed aspirin 81 mg tablet,delayed 81 mg PO DAILY 04/12/18 09/08/21 release ursodiol 300 mg capsule 300 mg PO BID 04/12/18 09/08/21 gabapentin 300 mg capsule 300 mg PO TID 09/04/18 09/08/21 atorvastatin 80 mg tablet 80 mg PO BEDTIME 09/25/18 09/08/21 torsemide 20 mg tablet 1 tab PO QAM 09/25/18 09/08/21 cetirizine 10 mg tablet (Allergy 1 tab PO DAILY 02/13/19 09/08/21 Relief (cetirizine)) ferrous sulfate 325 mg (65 mg 1 tab PO QAM 02/13/19 09/08/21 iron) tablet acetaminophen 325 mg tablet 650 mg PO Q6H PRN 08/04/21 09/08/21 acetaminophen 500 mg tablet 1,000 mg PO BID 08/04/21 09/08/21 albuterol sulfate 90 mcg/actuation 2 puff INHALATION Q4H PRN #0 08/04/21 09/08/21 aerosol inhaler (Ventolin HFA) donepezil 10 mg tablet 20 mg PO QAM 08/04/21 09/08/21 fluticasone fur. 100 mcg-umeclid 1 inh INHALATION DAILY 08/04/21 09/08/21 62.5 mcg-vilant 25 mcg inhalat.powder insulin glargine 100 unit/mL (3 9 unit SUBCUT BEDTIME 08/04/21 09/08/21 mL) subcutaneous pen (Lantus Solostar U-100 Insulin) loperamide 2 mg tablet 2 mg PO Q24H PRN 08/04/21 09/08/21 metoprolol tartrate 25 mg tablet 12.5 mg PO BID 08/04/21 09/08/21 nystatin 100,000 unit/gram topical 100,000 unit TOPICAL BID 08/04/21 09/08/21 powder ondansetron HCl 4 mg tablet 4 mg PO Q6HR PRN 08/04/21 09/08/21 pantoprazole 20 mg tablet,delayed 20 mg PO DAILY 08/04/21 09/08/21 release potassium chloride 10 mEq 20 meq PO DAILYCC 08/04/21 09/08/21 tablet,extended release(part/cryst) (Klor-Con M) sennosides 8.6 mg tablet (senna) 17.2 mg PO Q12H PRN 08/04/21 09/08/21 diltiazem HCl 180 mg 180 mg PO DAILY 09/08/21 09/08/21 capsule,extended release 24 hr insulin lispro 100 unit/mL 1 sliding scale dose SUBCUT BIDAC 09/08/21 09/08/21 subcutaneous pen (Humalog KwikPen (U-100) Insulin) melatonin 1 mg tablet 1 mg PO BEDTIME PRN 09/08/21 09/08/21 polyethylene glycol 3350 17 gram 17 g PO BID PRN 09/08/21 09/08/21 oral powder packet (Miralax) vitamin A and D 1 applic TOPICAL BID 09/08/21 09/08/21 Allergies Allergy/AdvReac Type Severity Reaction Status Date / Time captopril [CAPTOPRIL] Allergy Unknown Verified 09/25/18 14:09 nabumetone [NABUMETONE] Allergy Unknown Rash Verified 09/25/18 14:09 Review of Systems Constitutional Constitutional: Denies fever(s) ENT Ears, Nose, Mouth, and Throat: Denies sore throat Cardiovascular Cardiovascular: Denies chest pain and Denies dyspnea Respiratory Respiratory: Denies dyspnea Gastrointestinal Gastrointestinal: Reports as per HPI and Reports system reviewed and no additional complaints, except as documented Genitourinary Genitourinary: Reports system reviewed and no additional complaints, except as documented Integumentary/Breasts Skin/Breast: Reports system reviewed and no additional complaints, except as documented Neurologic Neurologic: Reports system reviewed and no additional complaints, except as documented Hematologic/Lymphatic On Anticoagulants: No Patient History Medical History Atrial fibrillation Cholelithiasis Chronic respiratory failure with hypoxia and hypercapnia Depression Diabetes Fracture of left ankle Hyperlipidemia Hypertension Inguinal hernia Iron deficiency anemia Lumbar degenerative disc disease Morbid obesity Obesity hypoventilation syndrome Osteoarthritis Paroxysmal atrial fibrillation Pneumococcal meningitis Prolapsed bladder Surgical History History of abdominoplasty History of gastric bypass Family History Mother Heart disease Father No problems noted. Social History household members: family, children and none Smoking Status: Former smoker alcohol intake: former additional social history: lives alone Smoking Status: Former smoker tobacco type: cigarettes alcohol intake frequency: 0-2 drinks per day Substance Use Type: does not use Exam Initial Vital Signs Initial Vital Signs: Vital Signs Temperature 99 F 09/14/21 11:05 Pulse Rate 69 09/14/21 11:05 Respiratory Rate 20 09/14/21 11:05 Blood Pressure 118/59 L 09/14/21 11:05 Pulse Oximetry 87 L 09/14/21 11:05 Const General: cooperative, comfortable and well developed HENPR Head: normal to inspection and normocephalic Chest Chest: normal inspection of the chest Resp Effort & Inspection: normal respiratory effort Auscultation: clear to auscultation bilaterally Cardio Rate: regular rate Rhythm: regular rhythm GI Inspection: normal to inspection and non-distended Palpation: soft, No guarding and No tender Rectal Exam: visual inspection normal, heme positive stool and No hemorrhoids Back/Spine/Pelvis Back: normal to inspection Skin Lesions: no lesions Rashes: no rashes Neuro General: patient alert, patient awake and moves all extremities Extrem General: normal to inspection and capillary refill normal Psych Appearance: grossly normal and well kempt Course Orders Ordered: ED Orders 09/14/21 11:05 EKG-12 Lead Stat 09/14/21 11:10 Complete Blood Count AUTO DIFF Stat Comprehensive Metabolic Panel Stat Partial Thromboplastin Time Stat Prothrombin Time INR Stat 09/14/21 11:33 Type and Screen Stat 09/14/21 13:07 Hemoglobin and Hematocrit Stat Vital Signs Vital signs: Vital Signs - 8 hr 09/14/21 11:05 09/14/21 11:29 09/14/21 11:30 Temperature 99 F Pulse Rate 69 69 65 Respiratory Rate 20 27 H 25 H Blood Pressure 118/59 L Pulse Oximetry 87 L 91 90 L 09/14/21 11:31 09/14/21 12:00 Temperature Pulse Rate 65 62 Respiratory Rate 20 24 Blood Pressure 108/57 L 128/60 Pulse Oximetry 88 L 94 MDM - GI Bleed Lab Data Attestation: I reviewed the patient's lab results. Result diagrams: 09/14/21 13:07 09/14/21 11:10 Labs: Lab Results 09/14/21 09/14/21 09/14/21 Range/Units 11:10 11:10 11:10 WBC 8.6 (4.5-11.0) X10^3/uL RBC 4.28 (4.0-5.2) X10^6/uL Hgb 12.1 (12.0-16.0) g/dL Hct 39.8 (36-46) % MCV 92.9 (80-100) fL MCH 28.3 (26-34) PG MCHC 30.5 (30-36) % RDW 16.5 H (11.6-14.8) % Plt Count 178 (150-400) X10^3/uL Neut % (Auto) 78.3 H (50-75) % Lymph % (Auto) 10.7 L (25-40) % [place] % (Auto) 8.6 (3-14) % Eos % (Auto) 1.5 L (2-4) % Baso % (Auto) 0.9 (0-2) % Neut # (Auto) 6700 (7764-4026) /uL Lymph # (Auto) 900 L (7671-7920) /uL [place] # (Auto) 700 (0-900) /uL Eos # (Auto) 100 (0-450) /uL Baso # (Auto) 100 (0-100) /uL PT 11.7 (10.1-12.7) SECONDS INR 1.0 (0.9-1.3) APTT 29 D (26.4-36.2) SECONDS Sodium 138 (137-145) mmol/L Potassium 5.0 (3.4-5.1) mmol/L Chloride 98 (98-107) mmol/L Carbon Dioxide 37 H (22-32) mmol/L BUN 65 H (7-17) mg/dL Creatinine 0.62 (0.52-1.04) mg/dL Estimated GFR > 60.0 (>60) mL/min BUN/Creatinine Ratio 104.8 H (6-22) Glucose 196 H (80-110) mg/dL Calcium 8.4 (8.4-10.2) mg/dL Total Bilirubin 0.7 (0.2-1.3) mg/dL AST 16 (14-36) IU/L ALT 14 (<35) IU/L Alkaline Phosphatase 53 (38-126) U/L Total Protein 6.1 L (6.3-8.2) g/dL Albumin 3.5 (3.5-5.0) g/dL Globulin 2.6 (1.7-4.1) g/dL Albumin/Globulin Ratio 1.3 (1.0-2.8) Blood Type Antibody Screen 09/14/21 09/14/21 Range/Units 11:33 13:07 WBC (4.5-11.0) X10^3/uL RBC (4.0-5.2) X10^6/uL Hgb 12.2 (12.0-16.0) g/dL Hct 39.1 (36-46) % MCV (80-100) fL MCH (26-34) PG MCHC (30-36) % RDW (11.6-14.8) % Plt Count (150-400) X10^3/uL Neut % (Auto) (50-75) % Lymph % (Auto) (25-40) % [place] % (Auto) (3-14) % Eos % (Auto) (2-4) % Baso % (Auto) (0-2) % Neut # (Auto) (8837-4403) /uL Lymph # (Auto) (2874-0605) /uL [place] # (Auto) (0-900) /uL Eos # (Auto) (0-450) /uL Baso # (Auto) (0-100) /uL PT (10.1-12.7) SECONDS INR (0.9-1.3) APTT (26.4-36.2) SECONDS Sodium (137-145) mmol/L Potassium (3.4-5.1) mmol/L Chloride (98-107) mmol/L Carbon Dioxide (22-32) mmol/L BUN (7-17) mg/dL Creatinine (0.52-1.04) mg/dL Estimated GFR (>60) mL/min BUN/Creatinine Ratio (6-22) Glucose (80-110) mg/dL Calcium (8.4-10.2) mg/dL Total Bilirubin (0.2-1.3) mg/dL AST (14-36) IU/L ALT (<35) IU/L Alkaline Phosphatase (38-126) U/L Total Protein (6.3-8.2) g/dL Albumin (3.5-5.0) g/dL Globulin (1.7-4.1) g/dL Albumin/Globulin Ratio (1.0-2.8) Blood Type O Positive Antibody Screen Negative Point of Care Testing Stool Occult Blood Positive ECG Data Attestation: I personally reviewed and interpreted this ECG as follows: Prior ECG tracings: not available for review Interpretation: Sinus rhythm Ventricular rate of 71 Occasional PAC Normal QRS Normal QTC No ST T wave changes MDM Narrative Medical decision making narrative: Patient is not currently having any specific symptoms. The abdominal pain that she had earlier this morning is completely resolved. She does have black stools that is heme-positive. Other than aspirin not on anticoagulation. Not tachycardic. Not hypotensive. Not febrile. No hemorrhoids noted on the exam. Observe for several hours and a repeat H&H shows no change. No indication for emergent admission to the hospital nor surgical consultation. She was informed that she should follow up with General surgery to discuss the indications for colonoscopy. She will continue all of her medications as directed. She was given return precautions. Both printed and written Discharge Plan Departure Patient Disposition: Home Clinical Impression: Melena Instructions: Gastrointestinal Bleeding Activity Restrictions/Additional Instructions: Your blood counts today did not address change clerk several hours. The rest of your vital signs are unremarkable. You did have blood in your stool today. I recommend that you contact the general surgery clinic at the number provided below for a follow-up. Return to the emergency department for any new or worsening symptoms Prescriptions: No Action ursodiol 300 mg capsule 300 mg PO BID RF: 0 aspirin 81 mg Tablet,Delayed Release (Dr/Ec) 81 mg PO DAILY RF: 0 cetirizine [Allergy Relief (cetirizine)] 10 mg Tablet 1 tab PO DAILY RF: 0 ferrous sulfate 325 mg (65 mg iron) Tablet 1 tab PO QAM RF: 0 ondansetron HCl 4 mg tablet 4 mg PO Q6HR PRN (Reason: Nausea) RF: 0 albuterol sulfate [Ventolin HFA] 90 mcg/actuation Hfa Aerosol Inhaler 2 puff INHALATION Q4H PRN (Reason: Wheezing) Qty: 0 RF: 0 metoprolol tartrate 25 mg tablet 12.5 mg PO BID RF: 0 Lantus Solostar U-100 Insulin 100 unit/mL (3 mL) insulin pen 9 unit SUBCUT BEDTIME RF: 0 donepezil 10 mg tablet 20 mg PO QAM RF: 0 nystatin 100,000 unit/gram powder 100,000 unit TOPICAL BID RF: 0 sennosides [senna] 8.6 mg tablet 17.2 mg PO Q12H PRN (Reason: Constipation) RF: 0 potassium chloride [Klor-Con M10] 10 mEq tablet,ER particles/crystals 20 meq PO DAILYCC RF: 0 acetaminophen 325 mg Tablet 650 mg PO Q6H PRN (Reason: PAIN) RF: 0 loperamide 2 mg Tablet 2 mg PO Q24H PRN (Reason: LOOSE STOOLS) RF: 0 acetaminophen 500 mg Tablet 1,000 mg PO BID RF: 0 pantoprazole 20 mg Tablet,Delayed Release (Dr/Ec) 20 mg PO DAILY RF: 0 [id number]-smpdteazv-lucvxkmb 100-62.5-25 mcg Blister With Device 1 inh INHALATION DAILY RF: 0 gabapentin 300 mg Capsule 300 mg PO TID RF: 0 atorvastatin 80 mg tablet 80 mg PO BEDTIME RF: 0 torsemide 20 mg tablet 1 tab PO QAM RF: 0 polyethylene glycol 3350 [Miralax] 17 gram Powder In Packet 17 g PO BID PRN (Reason: Constipation) RF: 0 diltiazem HCl 180 mg capsule,extended release 24hr 180 mg PO DAILY RF: 0 vitamin A and D Ointment 1 applic TOPICAL BID RF: 0 insulin lispro [Humalog KwikPen Insulin] 100 unit/mL Insulin Pen 1 sliding scale dose SUBCUT BIDAC RF: 0 melatonin 1 mg Tablet 1 mg PO BEDTIME PRN (Reason: Insomnia) RF: 0 Referrals: Saniya Melchor MD [Physician] - Johnny Saini MD [Primary Care Provider] -
--- NOTE | 2021-09-14 11:46 | PC.NURSE ---
Pt received laxative this morning and had large/tarry, guaiac + BM.
[2021-09-14 13:15] LABS: Hematocrit 39.1 % (36-46); Hemoglobin 12.2 g/dL (12.0-16.0)
== END 2021-09-14 16:17 | disposition home or self-care (01) ==
PROVIDERS: Emergency Provider Emergency Medicine; PCP Internal Medicine
DX: K92.1 Melena (principal); I10 Essential (primary) hypertension
CPT/HCPCS: 36415; 80053; 82272; 85014; 85018; 85025; 85610; 85730; 86850; 86900; 86901; 93005; 93010; 99284

== ENCOUNTER → 2021-09-20 08:17 | Outpatient (ROUT) | payer MEDICARE, MEDICAID, SELFPAY ==
[2021-09-08 13:20] VITALS: PULSE 59; RESP 20; O2SAT 92
[2021-09-08 13:24] VITALS: BMI 55.5
[2021-09-20 11:51] LABS: Add Manual Diff / Slide Review NO; Basophils Absolute Auto 100 /uL (0-100); Basophils Percent Auto 0.9 % (0-2); Eosinophils Absolute Auto 200 /uL (0-450); Eosinophils Percent Auto 3.1 % (2-4); Hematocrit 34.8 % (36-46); Hemoglobin 10.7 g/dL (12.0-16.0); Lymphocytes Absolute Auto 900 /uL (1100-4500); Lymphocytes Percent Auto 14.9 % (25-40); Mean Corpuscular HGB Conc 30.8 % (30-36); Mean Corpuscular Hemoglobin 28.8 PG (26-34); Mean Corpuscular Volume 93.4 fL (80-100); Monocytes Absolute Auto 600 /uL (0-900); Monocytes Percent Auto 9.3 % (3-14); Neutrophils Absolute Auto 4500 /uL (1500-7000); Neutrophils Percent Auto 71.8 % (50-75); Platelet Count 216 X10^3/uL (150-400); Red Blood Cell Count 3.73 X10^6/uL (4.0-5.2); Red Cell Distribution Width 16.4 % (11.6-14.8); White Blood Cell Count 6.3 X10^3/uL (4.5-11.0)
[2021-09-20 12:12] LABS: BUN Creatinine Ratio 32.1 (6-22); Blood Urea Nitrogen 18 mg/dL (7-17); Calcium 8.6 mg/dL (8.4-10.2); Carbon Dioxide 39 mmol/L (22-32); Chloride 96 mmol/L (98-107); Estimated Glomerular Filt Rate > 60.0 mL/min (>60); Glucose 100 mg/dL (80-110); HEMOLYSIS < 15 (0-50); Potassium 4.5 mmol/L (3.4-5.1); Sodium 140 mmol/L (137-145)
== END ==
PROVIDERS: PCP Internal Medicine; Visit Provider Nurse Practitioner Family
DX: K62.5 Hemorrhage of anus and rectum (principal)
CPT/HCPCS: 36415; 80048; 85025

== ENCOUNTER 2021-09-30 08:00 | Emergency (ER) | payer MEDICARE, MEDICAID, SELFPAY ==
[2021-09-08 13:20] VITALS: PULSE 59; RESP 20; O2SAT 92
[2021-09-08 13:24] VITALS: BMI 55.5
[2021-09-30] VITALS (26 sets, daily range): BP systolic 121–150; BP diastolic 66–91; PULSE 66–104; RESP 12–29; TEMP 30.8–36.8; O2SAT 88–95
--- NOTE | 2021-09-30 08:09 | ED.GENADULT ---
HPI - General Adult General Chief complaint: Shortness of Breath/Dyspnea Stated complaint: COPD with SOB Time Seen by Provider: 09/30/21 08:08 Source: patient and EMS Mode of arrival: EMS Limitations: no limitations History of Present Illness HPI narrative: Patient is a 70-year-old female. Has a history of COPD. Does have a PLOST form at bedside which does say DNR/DNI with selective treatment. She was brought to the emergency department today by EMS after the facility where she lives contacted them for a low oxygen saturation. Is reported by EMS that they were told her oxygen saturation was less than 60 however when they put her on their monitor her saturations were in the 80s. She is on oxygen at home at baseline. She thinks that is 4 L although it does seem to fluctuate somewhat. EMS continued her on her oxygen. She did receive a DuoNeb. Upon arrival patient states that she feels fine. She denied any shortness of breath this morning. No chest pain. No belly pain. No nausea vomiting. She was seen here in the emergency department several days ago by myself for dark colored stools. She has not had any further episodes of this. She does have swelling in her lower extremities but this is not new. No headache. She denies cough. Related Data Home Medications Medication Instructions Recorded Confirmed aspirin 81 mg tablet,delayed 81 mg PO DAILY 04/12/18 09/08/21 release ursodiol 300 mg capsule 300 mg PO BID 04/12/18 09/08/21 gabapentin 300 mg capsule 300 mg PO TID 09/04/18 09/08/21 atorvastatin 80 mg tablet 80 mg PO BEDTIME 09/25/18 09/08/21 torsemide 20 mg tablet 1 tab PO QAM 09/25/18 09/08/21 cetirizine 10 mg tablet (Allergy 1 tab PO DAILY 02/13/19 09/08/21 Relief (cetirizine)) ferrous sulfate 325 mg (65 mg 1 tab PO QAM 02/13/19 09/08/21 iron) tablet acetaminophen 325 mg tablet 650 mg PO Q6H PRN 08/04/21 09/08/21 acetaminophen 500 mg tablet 1,000 mg PO BID 08/04/21 09/08/21 albuterol sulfate 90 mcg/actuation 2 puff INHALATION Q4H PRN #0 08/04/21 09/08/21 aerosol inhaler (Ventolin HFA) donepezil 10 mg tablet 20 mg PO QAM 08/04/21 09/08/21 fluticasone fur. 100 mcg-umeclid 1 inh INHALATION DAILY 08/04/21 09/08/21 62.5 mcg-vilant 25 mcg inhalat.powder insulin glargine 100 unit/mL (3 9 unit SUBCUT BEDTIME 08/04/21 09/08/21 mL) subcutaneous pen (Lantus Solostar U-100 Insulin) loperamide 2 mg tablet 2 mg PO Q24H PRN 08/04/21 09/08/21 metoprolol tartrate 25 mg tablet 12.5 mg PO BID 08/04/21 09/08/21 nystatin 100,000 unit/gram topical 100,000 unit TOPICAL BID 08/04/21 09/08/21 powder ondansetron HCl 4 mg tablet 4 mg PO Q6HR PRN 08/04/21 09/08/21 pantoprazole 20 mg tablet,delayed 20 mg PO DAILY 08/04/21 09/08/21 release potassium chloride 10 mEq 20 meq PO DAILYCC 08/04/21 09/08/21 tablet,extended release(part/cryst) (Klor-Con M) sennosides 8.6 mg tablet (senna) 17.2 mg PO Q12H PRN 08/04/21 09/08/21 diltiazem HCl 180 mg 180 mg PO DAILY 09/08/21 09/08/21 capsule,extended release 24 hr insulin lispro 100 unit/mL 1 sliding scale dose SUBCUT BIDAC 09/08/21 09/08/21 subcutaneous pen (Humalog KwikPen (U-100) Insulin) melatonin 1 mg tablet 1 mg PO BEDTIME PRN 09/08/21 09/08/21 polyethylene glycol 3350 17 gram 17 g PO BID PRN 09/08/21 09/08/21 oral powder packet (Miralax) vitamin A and D 1 applic TOPICAL BID 09/08/21 09/08/21 Previous Rx's Medication Instructions Recorded nitrofurantoin 100 mg PO Q12H 5 Days #10 cap 09/30/21 monohydrate/macrocrystals 100 mg capsule (Macrobid) prednisone 20 mg tablet 20 mg PO DAILY 7 Days #7 tab 09/30/21 Allergies Allergy/AdvReac Type Severity Reaction Status Date / Time captopril [CAPTOPRIL] Allergy Unknown Verified 09/30/21 08:14 nabumetone [NABUMETONE] Allergy Unknown Rash Verified 09/30/21 08:14 Review of Systems Constitutional Constitutional: Denies headache(s) ENT Ears, Nose, Mouth, and Throat: Reports system reviewed and no additional complaints, except as documented and Denies headache(s) Cardiovascular Cardiovascular: Reports system reviewed and no additional complaints, except as documented Respiratory Respiratory: Reports system reviewed and no additional complaints, except as documented Gastrointestinal Gastrointestinal: Reports system reviewed and no additional complaints, except as documented Genitourinary Genitourinary: Reports system reviewed and no additional complaints, except as documented Musculoskeletal Musculoskeletal: Reports system reviewed and no additional complaints, except as documented Integumentary/Breasts Skin/Breast: Reports system reviewed and no additional complaints, except as documented Neurologic Neurologic: Reports system reviewed and no additional complaints, except as documented and Denies headache(s) Endocrine Endocrine: Reports system reviewed and no additional complaints, except as documented Hematologic/Lymphatic On Anticoagulants: No Allergic/Immunologic Allergic/Immunologic: Reports system reviewed and no additional complaints, except as documented Patient History Medical History Atrial fibrillation Cholelithiasis Chronic respiratory failure with hypoxia and hypercapnia Depression Diabetes Fracture of left ankle Hyperlipidemia Hypertension Inguinal hernia Iron deficiency anemia Lumbar degenerative disc disease Morbid obesity Obesity hypoventilation syndrome Osteoarthritis Paroxysmal atrial fibrillation Pneumococcal meningitis Prolapsed bladder Surgical History History of abdominoplasty History of gastric bypass Family History Mother Heart disease Father No problems noted. Social History household members: family, children and none Smoking Status: Former smoker alcohol intake: former additional social history: lives alone Smoking Status: Former smoker tobacco type: cigarettes alcohol intake frequency: 0-2 drinks per day Substance Use Type: does not use Exam Initial Vital Signs Initial Vital Signs: Vital Signs Temperature 98.3 F 09/30/21 08:09 Pulse Rate 66 09/30/21 08:09 Respiratory Rate 26 H 09/30/21 08:09 Blood Pressure 150/76 H 09/30/21 08:09 Pulse Oximetry 93 09/30/21 08:09 Const General: cooperative and No ill appearing Limitations: mental status not altered HENMT Head: normal to inspection and normocephalic Mouth: moist mucous membranes Eyes General: appearance normal, both eyes and all related structures Chest Chest: normal inspection of the chest Resp Effort & Inspection: not labored and tachypneic Auscultation: rhonchi Cardio Rate: regular rate Rhythm: regular rhythm GI Palpation: soft and No tender Skin General: no rashes or lesions noted Neuro General: patient alert, patient awake, patient oriented x3 and moves all extremities Extrem General: edema Psych Appearance: grossly normal and well kempt Course Orders Ordered: ED Orders 09/30/21 08:11 XR chest 1V Stat EKG-12 Lead Stat 09/30/21 08:12 RT Consult Eval and Treat Now 09/30/21 08:17 COVID19 -Nasal swab/Pre-Proc Stat 09/30/21 08:29 Complete Blood Count AUTO DIFF Stat Comprehensive Metabolic Panel Stat Lipase Stat NT-proBNP (BNP-Adult 18+) Stat Troponin & CK Cardiac Panel Stat 09/30/21 09:20 Arterial Blood Gas Stat 09/30/21 09:33 BiPAP Ventilatory Support RT PROTOCOL 09/30/21 11:52 Urinalysis and Microscopic Stat Urine Culture Stat Discontinued Medications Furosemide (Furosemide 40 Mg/4 Ml Vial) 40 mg IV NOW ONE Stop: 09/30/21 09:34 Last Admin: 09/30/21 09:51 Dose: 40 mg Documented by: FORREST Lorazepam (Lorazepam 2 Mg/Ml Inj) 1 mg IV NOW ONE Stop: 09/30/21 12:19 Last Admin: 09/30/21 12:24 Dose: 1 mg Documented by: FORREST Methylprednisolone (Methylprednisolone 125 Mg/2 Ml Vial) 125 mg IV NOW ONE Stop: 09/30/21 09:37 Last Admin: 09/30/21 09:51 Dose: 125 mg Documented by: FORREST Vital Signs Vital signs: Vital Signs - 8 hr 09/30/21 08:09 09/30/21 09:08 09/30/21 09:30 Temperature 98.3 F Pulse Rate 66 85 78 Respiratory Rate 26 H 27 H 26 H Blood Pressure 150/76 H Pulse Oximetry 93 95 92 09/30/21 10:00 09/30/21 10:02 09/30/21 10:04 Temperature Pulse Rate 75 77 73 Respiratory Rate 21 22 20 Blood Pressure 121/66 121/66 Pulse Oximetry 88 L 88 L 88 L 09/30/21 10:30 09/30/21 11:00 09/30/21 11:25 Temperature Pulse Rate 76 84 79 Respiratory Rate 20 24 23 Blood Pressure 126/75 130/67 Pulse Oximetry 92 94 93 09/30/21 11:30 09/30/21 12:00 09/30/21 12:30 Temperature Pulse Rate 79 91 H 95 H Respiratory Rate 23 22 24 Blood Pressure 132/70 137/72 147/85 H Pulse Oximetry 91 91 88 L 09/30/21 13:00 09/30/21 13:30 09/30/21 14:00 Temperature Pulse Rate 100 H 101 H 102 H Respiratory Rate 27 H 27 H 29 H Blood Pressure 146/87 H 128/84 Pulse Oximetry 89 L 90 L 91 09/30/21 14:30 09/30/21 14:48 09/30/21 15:00 Temperature Pulse Rate 101 H 103 H 102 H Respiratory Rate 25 H 28 H 24 Blood Pressure 137/91 H Pulse Oximetry 89 L 93 09/30/21 15:38 09/30/21 15:39 Temperature Pulse Rate 102 H 104 H Respiratory Rate Blood Pressure 126/74 Pulse Oximetry 93 93 Medical Decision Making Lab Data Lab results reviewed: Yes I reviewed the patient's lab results. Result diagrams: 09/30/21 08:29 09/30/21 08:29 Labs: Lab Results 09/30/21 09/30/21 09/30/21 Range/Units 08:17 08:29 08:29 WBC 6.8 (4.5-11.0) X10^3/uL RBC 3.80 L (4.0-5.2) X10^6/uL Hgb 11.0 L (12.0-16.0) g/dL Hct 35.5 L (36-46) % MCV 93.4 (80-100) fL MCH 29.0 (26-34) PG MCHC 31.0 (30-36) % RDW 16.8 H (11.6-14.8) % Plt Count 168 (150-400) X10^3/uL Neut % (Auto) 83.7 H (50-75) % Lymph % (Auto) 7.2 L (25-40) % Sullivan % (Auto) 6.5 (3-14) % Eos % (Auto) 1.8 L (2-4) % Baso % (Auto) 0.8 (0-2) % Neut # (Auto) 5700 (7027-5061) /uL Lymph # (Auto) 500 L (4961-4678) /uL Sullivan # (Auto) 400 (0-900) /uL Eos # (Auto) 100 (0-450) /uL Baso # (Auto) 100 (0-100) /uL ABG pH (7.35-7.45) ABG pCO2 (35-45) mmHg ABG pO2 (80-100) mmHg ABG HCO3 (22-26) mmol/L ABG Total CO2 (21-31) mmol/L ABG O2 Saturation (95-100) % ABG Base Excess (-2-2) mmol/L FiO2 Sodium 141 (137-145) mmol/L Potassium 4.7 (3.4-5.1) mmol/L Chloride 95 L (98-107) mmol/L Carbon Dioxide 41 H* (22-32) mmol/L BUN 23 H (7-17) mg/dL Creatinine 0.63 (0.52-1.04) mg/dL Estimated GFR > 60.0 (>60) mL/min BUN/Creatinine Ratio 36.5 H (6-22) Glucose 141 H (80-110) mg/dL Calcium 8.5 (8.4-10.2) mg/dL Total Bilirubin 0.5 (0.2-1.3) mg/dL AST 20 (14-36) IU/L ALT 13 (<35) IU/L Alkaline Phosphatase 73 (38-126) U/L Total Creatine Kinase 25 L (30-135) U/L CK-MB (CK-2) TNP CK-MB (CK-2) Rel Index TNP Troponin I < 0.012 (0.01-0.034) ng/mL NT-Pro-B Natriuret Pep 756 H (<125) pg/mL Total Protein 6.5 (6.3-8.2) g/dL Albumin 3.6 (3.5-5.0) g/dL Globulin 2.9 (1.7-4.1) g/dL Albumin/Globulin Ratio 1.2 (1.0-2.8) Lipase 61 (23-300) U/L Urine Color Urine Appearance Urine pH (4.5-8.0) Ur Specific Branch (1.000-1.035) Urine Protein (Negative) Urine Glucose (UA) (Negative) g/dL Urine Ketones (NEGATIVE) Urine Occult Blood (Negative) Urine Nitrate (Negative) Urine Bilirubin (NEGATIVE) Urine Urobilinogen (0.2) E.U./dL Ur Leukocyte Esterase (NEGATIVE) Urine RBC (0-5/HPF) Urine WBC (0-5/HPF) Ur Squamous Epith Cells (0-5/HPF) Urine Bacteria (None) Ur Culture Indicated? SARS-CoV-2 (PCR) Negative (Negative) 09/30/21 09/30/21 Range/Units 09:20 11:52 WBC (4.5-11.0) X10^3/uL RBC (4.0-5.2) X10^6/uL Hgb (12.0-16.0) g/dL Hct (36-46) % MCV (80-100) fL MCH (26-34) PG MCHC (30-36) % RDW (11.6-14.8) % Plt Count (150-400) X10^3/uL Neut % (Auto) (50-75) % Lymph % (Auto) (25-40) % Sullivan % (Auto) (3-14) % Eos % (Auto) (2-4) % Baso % (Auto) (0-2) % Neut # (Auto) (6592-7245) /uL Lymph # (Auto) (7307-6662) /uL Sullivan # (Auto) (0-900) /uL Eos # (Auto) (0-450) /uL Baso # (Auto) (0-100) /uL ABG pH 7.25 L* (7.35-7.45) ABG pCO2 98.6 H* (35-45) mmHg ABG pO2 82 (80-100) mmHg ABG HCO3 44 H (22-26) mmol/L ABG Total CO2 47 H (21-31) mmol/L ABG O2 Saturation 93 L (95-100) % ABG Base Excess 16.0 H (-2-2) mmol/L FiO2 36 Sodium (137-145) mmol/L Potassium (3.4-5.1) mmol/L Chloride (98-107) mmol/L Carbon Dioxide (22-32) mmol/L BUN (7-17) mg/dL Creatinine (0.52-1.04) mg/dL Estimated GFR (>60) mL/min BUN/Creatinine Ratio (6-22) Glucose (80-110) mg/dL Calcium (8.4-10.2) mg/dL Total Bilirubin (0.2-1.3) mg/dL AST (14-36) IU/L ALT (<35) IU/L Alkaline Phosphatase (38-126) U/L Total Creatine Kinase (30-135) U/L CK-MB (CK-2) CK-MB (CK-2) Rel Index Troponin I (0.01-0.034) ng/mL NT-Pro-B Natriuret Pep (<125) pg/mL Total Protein (6.3-8.2) g/dL Albumin (3.5-5.0) g/dL Globulin (1.7-4.1) g/dL Albumin/Globulin Ratio (1.0-2.8) Lipase (23-300) U/L Urine Color straw Urine Appearance Clear Urine pH 5.5 (4.5-8.0) Ur Specific Branch 1.010 (1.000-1.035) Urine Protein Negative (Negative) Urine Glucose (UA) Negative (Negative) g/dL Urine Ketones Negative (NEGATIVE) Urine Occult Blood Negative (Negative) Urine Nitrate Positive H (Negative) Urine Bilirubin Negative (NEGATIVE) Urine Urobilinogen 0.2 (0.2) E.U./dL Ur Leukocyte Esterase Trace H (NEGATIVE) Urine RBC None seen (0-5/HPF) Urine WBC 1-5/hpf (0-5/HPF) Ur Squamous Epith Cells 1-5 /hpf (0-5/HPF) Urine Bacteria Many (>30) H (None) Ur Culture Indicated? Specimen cultured SARS-CoV-2 (PCR) (Negative) Imaging Data Chest x-ray: Radiologist's Impression: [address] [address] XRay Report Signed Patient: Alem Donahue MR#: [id number] : 1950 Acct:[id number] Age/Sex: 70 / F Date of Service: 09/30/21 Loc: ED Accession Number: [id number] ?? Procedure: XR chest 1V Ordering Provider: Davy Avalos D.O. PROCEDURE:? XR CHEST 1V ? INDICATIONS:? SOB ? TECHNIQUE:? One view of the chest was acquired.? ? COMPARISON:? [facility], CT, CT CHEST W CON, 03/12/2021, 4:23.? [facility], CR, XR CHEST 1V, 09/08/2021, 8:57. ? FINDINGS:? ? Surgical changes and devices:? None.? ? Lungs and pleura:? Mild interstitial pulmonary edema.? No pleural effusions or pneumothorax.? ? Mediastinum:? Mediastinal contours appear normal.? Mild cardiomegaly. ? Bones and chest wall:? No suspicious bony lesions.? Overlying soft tissues appear unremarkable.? ? IMPRESSION:? Congestive heart failure exacerbation. ? ? Dictated by: Nelson Christie M.D. on 09/30/2021 at 9:07 ? ? Approved by: Nelson Christie M.D. on 09/30/2021 at 9:11? ECG Data Attestation: I personally reviewed and interpreted this ECG as follows: Prior ECG tracings: not available for review Interpretation: Sinus rhythm Ventricular rate of 76 Normal axis Normal QRS Normal QTC No ST T wave changes MDM Narrative Medical decision making narrative: Patient was alert oriented upon arrival but was somewhat somnolent. She seemed to be at her baseline oxygen saturation on her baseline oxygen requirement. She did have an elevated CO2 on her chemistries. An ABG was ordered and she was hypercarbic as well. I do suspect a degree of a chronic CO2 retention. Afebrile. Patient did agree to BiPAP for short period of time. This did seem to improve her mental status. She continued to be alert oriented. GCS of 15. My opinion had capacity to make decisions. She did not want the BiPAP any longer. She stated that she does not like the machine. Initially patient was going to be admitted to the hospital. Dr. Macias with Internal Medicine agreed to admit but when the patient no longer agreed to wearing the BiPAP mask there was not much more that could be offered as an inpatient. He did evaluate here here in the emergency department. He attempted to contact family as well as myself. I do feel that the patient has capacity to make decisions. Plan to be is to discharge home. We will start her on antibiotics secondary to a nitrite positive urine. Will also start her on steroids per internal medicine recommendation. I discussed this with the patient. Do recommend hospice consultation. Patient given return precautions. She expressed understanding agreement. Discharge Plan Departure Patient Disposition: Home Clinical Impression: Hypercarbia, Hypoxia Activity Restrictions/Additional Instructions: After discussions with both myself and the hospitalist the decision is made to discharge you back to [place]. I recommend that you continue to use your oxygen with a goal saturations between 88 and 92%. I also recommend that your primary doctor discussed with you palliative care. Return to the emergency department for any new or worsening symptoms Prescriptions: New nitrofurantoin monohyd/m-cryst [Macrobid] 100 mg capsule 100 mg PO Q12H 5 Days Qty: 10 RF: 0 prednisone 20 mg tablet 20 mg PO DAILY 7 Days Qty: 7 RF: 0 No Action ursodiol 300 mg capsule 300 mg PO BID RF: 0 aspirin 81 mg Tablet,Delayed Release (Dr/Ec) 81 mg PO DAILY RF: 0 cetirizine [Allergy Relief (cetirizine)] 10 mg Tablet 1 tab PO DAILY RF: 0 ferrous sulfate 325 mg (65 mg iron) Tablet 1 tab PO QAM RF: 0 ondansetron HCl 4 mg tablet 4 mg PO Q6HR PRN (Reason: Nausea) RF: 0 albuterol sulfate [Ventolin HFA] 90 mcg/actuation Hfa Aerosol Inhaler 2 puff INHALATION Q4H PRN (Reason: Wheezing) Qty: 0 RF: 0 metoprolol tartrate 25 mg tablet 12.5 mg PO BID RF: 0 Lantus Solostar U-100 Insulin 100 unit/mL (3 mL) insulin pen 9 unit SUBCUT BEDTIME RF: 0 donepezil 10 mg tablet 20 mg PO QAM RF: 0 nystatin 100,000 unit/gram powder 100,000 unit TOPICAL BID RF: 0 sennosides [senna] 8.6 mg tablet 17.2 mg PO Q12H PRN (Reason: Constipation) RF: 0 potassium chloride [Klor-Con M10] 10 mEq tablet,ER particles/crystals 20 meq PO DAILYCC RF: 0 acetaminophen 325 mg Tablet 650 mg PO Q6H PRN (Reason: PAIN) RF: 0 loperamide 2 mg Tablet 2 mg PO Q24H PRN (Reason: LOOSE STOOLS) RF: 0 acetaminophen 500 mg Tablet 1,000 mg PO BID RF: 0 pantoprazole 20 mg Tablet,Delayed Release (Dr/Ec) 20 mg PO DAILY RF: 0 [id number] 100-62.5-25 mcg Blister With Device 1 inh INHALATION DAILY RF: 0 gabapentin 300 mg Capsule 300 mg PO TID RF: 0 atorvastatin 80 mg tablet 80 mg PO BEDTIME RF: 0 torsemide 20 mg tablet 1 tab PO QAM RF: 0 polyethylene glycol 3350 [Miralax] 17 gram Powder In Packet 17 g PO BID PRN (Reason: Constipation) RF: 0 diltiazem HCl 180 mg capsule,extended release 24hr 180 mg PO DAILY RF: 0 vitamin A and D Ointment 1 applic TOPICAL BID RF: 0 insulin lispro [Humalog KwikPen Insulin] 100 unit/mL Insulin Pen 1 sliding scale dose SUBCUT BIDAC RF: 0 melatonin 1 mg Tablet 1 mg PO BEDTIME PRN (Reason: Insomnia) RF: 0 Referrals: Johnny Saini MD [Primary Care Provider] -
--- NOTE | 2021-09-30 08:11 | DI.RAD.S_ITS ---
PROCEDURE: XR CHEST 1V INDICATIONS: SOB TECHNIQUE: One view of the chest was acquired. COMPARISON: [facility], CT, CT CHEST W CON, 03/12/2021, 4:23. [facility], CR, XR CHEST 1V, 09/08/2021, 8:57. FINDINGS: Surgical changes and devices: None. Lungs and pleura: Mild interstitial pulmonary edema. No pleural effusions or pneumothorax. Mediastinum: Mediastinal contours appear normal. Mild cardiomegaly. Bones and chest wall: No suspicious bony lesions. Overlying soft tissues appear unremarkable. IMPRESSION: Congestive heart failure exacerbation. Dictated by: Nelson Christie M.D. on 09/30/2021 at 9:07 Approved by: Nelson Christie M.D. on 09/30/2021 at 9:11
[2021-09-30 08:36] LABS: Add Manual Diff / Slide Review NO; Basophils Absolute Auto 100 /uL (0-100); Basophils Percent Auto 0.8 % (0-2); Eosinophils Absolute Auto 100 /uL (0-450); Eosinophils Percent Auto 1.8 % (2-4); Hematocrit 35.5 % (36-46); Lymphocytes Absolute Auto 500 /uL (1100-4500); Lymphocytes Percent Auto 7.2 % (25-40); Mean Corpuscular Volume 93.4 fL (80-100); Monocytes Absolute Auto 400 /uL (0-900); Monocytes Percent Auto 6.5 % (3-14); Neutrophils Absolute Auto 5700 /uL (1500-7000); Neutrophils Percent Auto 83.7 % (50-75); Platelet Count 168 X10^3/uL (150-400); Red Cell Distribution Width 16.8 % (11.6-14.8); White Blood Cell Count 6.8 X10^3/uL (4.5-11.0)
[2021-09-30 08:43] LABS: COVID19 -Nasal RAPID Negative (Negative)
[2021-09-30 08:51] LABS: Alanine Aminotransferase 13 IU/L (<35); Albumin 3.6 g/dL (3.5-5.0); Albumin Globulin Ratio 1.2 (1.0-2.8); Alkaline Phosphatase 73 U/L (38-126); Aspartate Aminotransferase 20 IU/L (14-36); BUN Creatinine Ratio 36.5 (6-22); Bilirubin Total 0.5 mg/dL (0.2-1.3); Blood Urea Nitrogen 23 mg/dL (7-17); Calcium 8.5 mg/dL (8.4-10.2); Chloride 95 mmol/L (98-107); Creatine Kinase 25 U/L (30-135); Estimated Glomerular Filt Rate > 60.0 mL/min (>60); Globulin 2.9 g/dL (1.7-4.1); Glucose 141 mg/dL (80-110); HEMOLYSIS < 15 (0-50); Lipase 61 U/L (23-300); Potassium 4.7 mmol/L (3.4-5.1); Sodium 141 mmol/L (137-145); Total Protein 6.5 g/dL (6.3-8.2)
[2021-09-30 08:58] LABS: Carbon Dioxide 41 mmol/L (22-32)
[2021-09-30 09:22] LABS: Troponin I < 0.012 ng/mL (0.01-0.034)
[2021-09-30 09:23] LABS: NT-proBNP (BNP-Adult 18+) 756 pg/mL (<125)
[2021-09-30] MEDS: FUROSEMIDE 40 MG/4 ML VIAL IV (09:51)
[2021-09-30] MEDS: methylPREDNISolone 125 MG/2 ML VIAL IV (09:51)
[2021-09-30 10:59] LABS: HCO3 ABG 44 mmol/L (22-26); PCO2 ABG 98.6 mmHg (35-45); PO2 ABG 82 mmHg (80-100); pH ABG 7.25 (7.35-7.45)
[2021-09-30 11:00] LABS: Fractionated Inspired Oxygen 36; Oxygen Saturation ABG 93 % (95-100); TCO2 ABG 47 mmol/L (21-31)
[2021-09-30 11:55] LABS: Appearance Urine UA CLEAR; Bilirubin Urine UA NEGATIVE (NEGATIVE); Glucose Urine UA NEGATIVE (Negative); Ketones Urine UA NEGATIVE (NEGATIVE); Leukocyte Esterase Urine UA TRACE (NEGATIVE); Nitrite Urine UA POSITIVE (Negative); Occult Blood Urine UA NEGATIVE (Negative); Protein Urine UA NEGATIVE (Negative); Urobilinogen Urine UA 0.2 E.U./dL (0.2)
[2021-09-30 12:07] LABS: pH Urine UA 5.5 (4.5-8.0)
[2021-09-30 12:08] LABS: Bacteria Urine Many (>30); Culture Indicated Urine Specimen Cultured; RBC Urine None Seen (0-5/HPF); Squamous Epithelial Cell Urine 1-5 /HPF (0-5/HPF); WBC Urine 1-5/HPF (0-5/HPF)
--- NOTE | 2021-09-30 12:15 | PC.NURSE ---
Pt is waking and becoming more alert after wearing BiPap. She has taken off the mask several times since waking, and will not leave it in place despite encouragement and instruction from this RN. RT and provider at bedside to assess. Alem is oriented to self and place, which is an improvement from her deep somnolence and AMS earlier in her stay. Without BiPap on, she continues to desat to 85%. Nasal cannula placed at 6L O2 to maintain her until medications to address her claustrophobia are administered. BiPap will then be replaced.
[2021-09-30] MEDS: LORazepam 2 MG/ML INJ 1 MG IV (12:24)
--- NOTE | 2021-09-30 12:35 | PC.NURSE ---
Pt resting more calmly after lpn medical assistant. Sleeping with sats 89% on 6L NC.
--- NOTE | 2021-09-30 13:18 | P.CONS_ITS ---
History of Present Illness Consult details Date Patient Seen: 09/30/21 Time Patient Seen: 13:18 Chief complaint: COPD with SOB Narrative: ?History is obtained largely via chart review given the patient's current mental status.? This is a 70-year-old female with a past medical history of chronic hypercapnic and hypoxemic respiratory failure, obesity hypoventilation syndrome, COPD, diabetes, chronic pain with opioid medications, atrial fibrillation, and mild dementia who was sent to the emergency room for hypoxia noted at her assisted living facility, [facility]. History is currently unable to be obtained by the patient.? She is arousable but quite somnolent and fatigued.? She occasionally nods but cannot reliably state a history at the current time. In the emergency room, the patient was tachypneic, hypoxic per her facility.? Blood gas showed a pCO2 of 99 and the patient was started on BiPAP therapy.? Her code status and POLST form state that she is DNR/DNI with limited interventions which do include BiPAP therapy. I took care of the patient when she was admitted about 3 weeks ago with similar presentation. At that time, patient was alert and expressed no desire to wear a BIPAP mask ever again as it causes her great discomfort. She removed her BiPAP mask in the ER here today, refused to put it back on. She was to be admitted to the ICU for BIPAP treatment, however given refusal patient is currently back on her baseline oxygen use at 4L and O2 sa turations are in the low 90s. Patient's son was not currently available to reach by phone. At this time, given patient's reluctance / refusal for only available treatment, there is no benefit to hospital admission at this time. Her UA is positive, I would recommend oral antibiotics and prednisone, but a return to [facility] from the ER with hospice. Meds Home Medications and Allergies Home Medications Medication Instructions Recorded Confirmed Type aspirin 81 mg tablet,delayed 81 mg PO DAILY 04/12/18 09/08/21 History release ursodiol 300 mg capsule 300 mg PO BID 04/12/18 09/08/21 History gabapentin 300 mg capsule 300 mg PO TID 09/04/18 09/08/21 History atorvastatin 80 mg tablet 80 mg PO BEDTIME 09/25/18 09/08/21 History torsemide 20 mg tablet 1 tab PO QAM 09/25/18 09/08/21 History cetirizine 10 mg tablet (Allergy 1 tab PO DAILY 02/13/19 09/08/21 History Relief (cetirizine)) ferrous sulfate 325 mg (65 mg 1 tab PO QAM 02/13/19 09/08/21 History iron) tablet acetaminophen 325 mg tablet 650 mg PO Q6H PRN 08/04/21 09/08/21 History acetaminophen 500 mg tablet 1,000 mg PO BID 08/04/21 09/08/21 History albuterol sulfate 90 mcg/actuation 2 puff INHALATION Q4H PRN #0 08/04/21 09/08/21 History aerosol inhaler (Ventolin HFA) donepezil 10 mg tablet 20 mg PO QAM 08/04/21 09/08/21 History fluticasone fur. 100 mcg-umeclid 1 inh INHALATION DAILY 08/04/21 09/08/21 History 62.5 mcg-vilant 25 mcg inhalat.powder insulin glargine 100 unit/mL (3 9 unit SUBCUT BEDTIME 08/04/21 09/08/21 History mL) subcutaneous pen (Lantus Solostar U-100 Insulin) loperamide 2 mg tablet 2 mg PO Q24H PRN 08/04/21 09/08/21 History metoprolol tartrate 25 mg tablet 12.5 mg PO BID 08/04/21 09/08/21 History nystatin 100,000 unit/gram topical 100,000 unit TOPICAL BID 08/04/21 09/08/21 History powder ondansetron HCl 4 mg tablet 4 mg PO Q6HR PRN 08/04/21 09/08/21 History pantoprazole 20 mg tablet,delayed 20 mg PO DAILY 08/04/21 09/08/21 History release potassium chloride 10 mEq 20 meq PO DAILYCC 08/04/21 09/08/21 History tablet,extended release(part/cryst) (Klor-Con M) sennosides 8.6 mg tablet (senna) 17.2 mg PO Q12H PRN 08/04/21 09/08/21 History diltiazem HCl 180 mg 180 mg PO DAILY 09/08/21 09/08/21 History capsule,extended release 24 hr insulin lispro 100 unit/mL 1 sliding scale dose SUBCUT BIDAC 09/08/21 09/08/21 History subcutaneous pen (Humalog KwikPen (U-100) Insulin) melatonin 1 mg tablet 1 mg PO BEDTIME PRN 09/08/21 09/08/21 History polyethylene glycol 3350 17 gram 17 g PO BID PRN 09/08/21 09/08/21 History oral powder packet (Miralax) vitamin A and D 1 applic TOPICAL BID 09/08/21 09/08/21 History Allergies Allergy/AdvReac Type Severity Reaction Status Date / Time captopril [CAPTOPRIL] Allergy Unknown Verified 09/30/21 08:14 nabumetone [NABUMETONE] Allergy Unknown Rash Verified 09/30/21 08:14 Review of Systems Review of Systems Narrative: Unable to further review review of systems given the patient's current mental status. Exam Vital Signs (past 8 hours): - 09/30/21 08:09 09/30/21 09:08 09/30/21 09:30 Temperature 98.3 F Pulse Rate 66 85 78 Respiratory Rate 26 H 27 H 26 H Blood Pressure 150/76 H Pulse Oximetry 93 95 92 09/30/21 10:00 09/30/21 10:02 09/30/21 10:04 Temperature Pulse Rate 75 77 73 Respiratory Rate 21 22 20 Blood Pressure 121/66 121/66 Pulse Oximetry 88 L 88 L 88 L 09/30/21 10:30 09/30/21 11:00 09/30/21 11:25 Temperature Pulse Rate 76 84 79 Respiratory Rate 20 24 23 Blood Pressure 126/75 130/67 Pulse Oximetry 92 94 93 09/30/21 11:30 09/30/21 12:00 09/30/21 12:30 Temperature Pulse Rate 79 91 H 95 H Respiratory Rate 23 22 24 Blood Pressure 132/70 137/72 147/85 H Pulse Oximetry 91 91 88 L Fraction of Inspired Oxygen 60 Oxygen Delivery Method Nasal Cannula Oxygen Flow Rate 6 Narrative Exam Narrative: GENERAL APPEARANCE:? Obese female, no acute distress, fatigued. SKIN: Inspection of the skin reveals no rashes, ulcerations or petechiae. HEENT:? Normocephalic atraumatic, extraocular muscles are intact, oropharynx is clear and mucous membranes are moist, neck is supple without adenopathy LUNGS: Auscultation of the lungs revealed no wheezes, rhonchi, or rales. CARDIOVASCULAR: There was a regular rate and rhythm without any murmurs, gallops, rubs. Peripheral pulses were 2+ and symmetric. ABDOMEN:? Soft, nontender, and nondistended MUSCULOSKELETAL: There was no tenderness or effusions noted. EXTREMITIES: No cyanosis, clubbing.? There is trace bilateral lower extremity edema. NEUROLOGIC:?falls asleep easily, follows commands for a brief period of time. no focal deficits Objective Labs Result Diagrams: 09/30/21 08:29 09/30/21 08:29 Labs: Laboratory Results - last 24 hr 09/30/21 09/30/21 09/30/21 08:17 08:29 08:29 WBC 6.8 RBC 3.80 L Hgb 11.0 L Hct 35.5 L MCV 93.4 MCH 29.0 MCHC 31.0 RDW 16.8 H Plt Count 168 Neut % (Auto) 83.7 H Lymph % (Auto) 7.2 L [place] % (Auto) 6.5 Eos % (Auto) 1.8 L Baso % (Auto) 0.8 Neut # (Auto) 5700 Lymph # (Auto) 500 L [place] # (Auto) 400 Eos # (Auto) 100 Baso # (Auto) 100 ABG pH ABG pCO2 ABG pO2 ABG HCO3 ABG Total CO2 ABG O2 Saturation ABG Base Excess FiO2 Sodium 141 Potassium 4.7 Chloride 95 L Carbon Dioxide 41 H* BUN 23 H Creatinine 0.63 Estimated GFR > 60.0 BUN/Creatinine Ratio 36.5 H Glucose 141 H Calcium 8.5 Total Bilirubin 0.5 AST 20 ALT 13 Alkaline Phosphatase 73 Total Creatine Kinase 25 L CK-MB (CK-2) TNP CK-MB (CK-2) Rel Index TNP Troponin I < 0.012 NT-Pro-B Natriuret Pep 756 H Total Protein 6.5 Albumin 3.6 Globulin 2.9 Albumin/Globulin Ratio 1.2 Lipase 61 Urine Color Urine Appearance Urine pH Ur Specific [place] Urine Protein Urine Glucose (UA) Urine Ketones Urine Occult Blood Urine Nitrate Urine Bilirubin Urine Urobilinogen Ur Leukocyte Esterase Urine RBC Urine WBC Ur Squamous Epith Cells Urine Bacteria Ur Culture Indicated? SARS-CoV-2 (PCR) Negative 09/30/21 09/30/21 09:20 11:52 WBC RBC Hgb Hct MCV MCH MCHC RDW Plt Count Neut % (Auto) Lymph % (Auto) [place] % (Auto) Eos % (Auto) Baso % (Auto) Neut # (Auto) Lymph # (Auto) [place] # (Auto) Eos # (Auto) Baso # (Auto) ABG pH 7.25 L* ABG pCO2 98.6 H* ABG pO2 82 ABG HCO3 44 H ABG Total CO2 47 H ABG O2 Saturation 93 L ABG Base Excess 16.0 H FiO2 36 Sodium Potassium Chloride Carbon Dioxide BUN Creatinine Estimated GFR BUN/Creatinine Ratio Glucose Calcium Total Bilirubin AST ALT Alkaline Phosphatase Total Creatine Kinase CK-MB (CK-2) CK-MB (CK-2) Rel Index Troponin I NT-Pro-B Natriuret Pep Total Protein Albumin Globulin Albumin/Globulin Ratio Lipase Urine Color straw Urine Appearance Clear Urine pH 5.5 Ur Specific [place] 1.010 Urine Protein Negative Urine Glucose (UA) Negative Urine Ketones Negative Urine Occult Blood Negative Urine Nitrate Positive H Urine Bilirubin Negative Urine Urobilinogen 0.2 Ur Leukocyte Esterase Trace H Urine RBC None seen Urine WBC 1-5/hpf Ur Squamous Epith Cells 1-5 /hpf Urine Bacteria Many (>30) H Ur Culture Indicated? Specimen cultured SARS-CoV-2 (PCR) [facility] Medical History Atrial fibrillation Cholelithiasis Chronic respiratory failure with hypoxia and hypercapnia Depression Diabetes Fracture of left ankle Hyperlipidemia Hypertension Inguinal hernia Iron deficiency anemia Lumbar degenerative disc disease Morbid obesity Obesity hypoventilation syndrome Osteoarthritis Paroxysmal atrial fibrillation Pneumococcal meningitis Prolapsed bladder Surgical History History of abdominoplasty History of gastric bypass Family History Mother Heart disease Father No problems noted. Social History household members: family, children and none Tobacco & Substance Use Smoking Status: Former smoker alcohol intake: former Additional Social History additional social history: lives alone Assessment & Plan Assessment & Plan narrative: This is a 70-year-old female with a past medical history of chronic hypercapnic and hypoxemic respiratory failure, obesity hypoventilation syndrome, COPD, diabetes, chronic pain with opioid medications, atrial fibrillation, and mild dementia who was sent to the emergency room for hypoxia noted at her assisted living facility, [facility].?Patient was planned to be admitted for further management of acute on chronic hypercarbic and chronic hypoxemic respiratory failure likely secondary to COPD exacerbation. However she refuses to wear BIPAP mask and previously endorsed no desire last admission to wear again. She is DNR and DNI. There are no further treatment options and there is no benefit from hospital admission at this time. Recommend return to [facility] on hospicee. 1. acute on chronic hypercapnic and chronic hypoxemic respiratory failure secondary to COPD exacerbation with possible acute heart failure, ?- currently at baseline O2 use. She is hypercapnic, but refuses BIPAP mask. There are no further treatment options given her code status as previously documented. - recommend return to [facility] on hospice at this time. - would continue prednisone 40 mg daily for 4 days. 2. Essential hypertension with paroxysmal atrial fibrillation without chronic anticoagulation, chronic, present on admission ?- no medication changes recommended. 3. Hyperlipidemia and insulin-dependent type 2 diabetes, chronic, present on admission ?- no medication changes recommended. 4. Chronic pain with hx of opiate dependence, chronic, present on admission ?- no medication changes recommended. 5. GERD, chronic, present on admission ?- no medication changes recommended. 6. Alzheimer's dementia, acute on chronic, present on admission ?- no medication changes recommended. 7. Metabolic encephalopathy - secondary to hypercarbia, but could be related to possible acute cystitis 8. Possible acute cystitis - + UA in the ER. Would give single dose ceftriaxone and can discharge on 2 additional days of oral cefdinir. Code status:? DNR Surrogate decision maker Jed sharif patient's son COVID PCR:? Negative Disposition:?recommend return to [facility] on hospice given patient's refusal of only available treatment. I have utilized all available immediate resources to obtain, update, or review t he patient's current medications. I confirmed that the patient's advanced care plan is present, Code status is documented and/or surrogate decision maker is listed in the patient's medical record. COVID-19 COVID-19 status: Negative Time Spent With Patient Critical Care time: I spent a total of [] minutes of critical care time on this patient's care today; this time is exclusive of procedural time.
--- NOTE | 2021-09-30 14:10 | CM.DPNOTE ---
DCP note: patient is 70 yr old female who was recently discharged following respiratory distress. patient was placed on a bipap. patient was DC back to [facility]. patient returned to the ED today for Respiratory failure again and has not been utilizing her Bipap appropriately. CM was asked to help with this patient in determining a plan to DC the patient back to [facility] from the ED. CM Called Patti at [facility] to discuss discharge plan. ISMAEL explained that the patient does not want to utilize needed medical treatment here at the hospital and patient is not going to be admitted and will need to return to [facility]. Patti stated understanding and said that they will take her back and that they have transportation available until 5pm after 5pm the ED will need to set up appropriate transport to get the patient back to [facility]. ISMAEL spoke with Patti about following up with the DPOAs about starting comfort care measures. ISMAEL explained that Dr Macias attempted to reach the patients son and daughter but was unable to reach them. Patti stated she will talk with them hopefully tomorrow and maybe have hospice of the come in and do an informational visit with the patient and the family. ISMAEL spoke with Dr. Macias and ED provider Dr. Avalos and updated them both on the conversation with [facility] and let them know that she can return there when ready. Carlota Vasquez RNsales performance manager.
--- NOTE | 2021-09-30 16:10 | PC.NURSE ---
Spoke to Kvng Donahue about patient's ED course and why patient wasn't admitted. He understood and will be contacting Joseline.
== END 2021-10-01 05:06 | disposition home or self-care (01) ==
PROVIDERS: Emergency Provider Emergency Medicine; PCP Internal Medicine
DX: R09.02 Hypoxemia (principal); R06.89 Other abnormalities of breathing; R06.82 Tachypnea, not elsewhere classified; Z20.822 Contact with and (suspected) exposure to COVID-19
CPT/HCPCS: 36415; 36600; 71045; 80053; 81001; 82550; 82805; 83690; 83880; 84484; 85025; 87077; 87086; 87186; 87635; 93005; 93010; 94660; 96374; 96375; 99285; C9803; J1940; J2060; J2930

== ENCOUNTER → 2021-10-05 12:54 | Outpatient (ROUT) | payer MEDICARE, MEDICAID, SELFPAY ==
[2021-09-08 13:24] VITALS: BMI 55.5
[2021-09-30 11:05] VITALS: PULSE 76; RESP 23; O2SAT 94
[2021-10-05 14:19] LABS: COVID-19 CEPHEID PCR (VTM/NP) POSITIVE (Negative)
== END ==
PROVIDERS: PCP Internal Medicine; Visit Provider Internal Medicine
DX: U07.1 COVID-19 (principal)
CPT/HCPCS: U0003

== ENCOUNTER 2021-10-06 20:37 | Inpatient (IN) | payer MEDICARE, MEDICAID, SELFPAY ==
[2021-09-08 13:24] VITALS: BMI 55.5
[2021-09-30 11:05] VITALS: PULSE 76; RESP 23; O2SAT 94
[2021-10-06] VITALS (20 sets, daily range): BP systolic 108–216; BP diastolic 57–129; PULSE 87–103; RESP 20–53; TEMP 36.7–38.5; O2SAT 60–99
--- NOTE | 2021-10-06 20:38 | DI.RAD.S_ITS ---
PROCEDURE: XR CHEST 1V INDICATIONS: flu-like symptoms TECHNIQUE: One view of the chest was acquired. COMPARISON: [facility], , XR CHEST 1V, 08/03/2021, 23:12. [facility], CR, XR CHEST 1V, 09/30/2021, 8:45. FINDINGS: Surgical changes and devices: None. Lungs and pleura: Overall, no definite interval change in widespread ill-defined and ground-glass opacities. No new focal consolidation. No pleural effusions or pneumothorax. Mediastinum: Mediastinal contours appear normal. Heart size is normal. Bones and chest wall: No suspicious bony lesions. Overlying soft tissues appear unremarkable. IMPRESSION: No interval change since 09/30/21. Dictated by: Chucho Santana M.D. on 10/06/2021 at 21:48 Approved by: Chucho Santana M.D. on 10/06/2021 at 21:49
--- NOTE | 2021-10-06 21:07 | ED_ITS ---
HPI - SOB/Dyspnea General Chief Complaint: Upper Respiratory Symptoms Stated Complaint: COVID + low O2 Time Seen by Provider: 10/06/21 20:43 History of Present Illness HPI Narrative: 70-year-old female former smoker with history atrial flutter, chronic respiratory failure, requires CPAP at night, diabetes, hypertension who recently tested positive for COVID and received [facility] on earlier today presents by EMS for evaluation of worsening respiratory status. She has had increasing shortness of breath and cough and his had pulse ox in 50s and 60s. She had been recommended for hospice and was a DNR up until today but after conversation (per DPOA) with her doctor she would be open to the concept of intubation if need be. He is in route to completely new pulsed as we speak. She was seen and evaluated in the emergency department most recently on the and had an exacerbation of COPD but was COVID negative and discharged home. She denies fever or chills. She denies nausea, vomiting or diarrhea. Related Data Home Medications Medication Instructions Recorded Confirmed aspirin 81 mg tablet,delayed 81 mg PO DAILY 04/12/18 09/08/21 release ursodiol 300 mg capsule 300 mg PO BID 04/12/18 09/08/21 gabapentin 300 mg capsule 300 mg PO TID 09/04/18 09/08/21 atorvastatin 80 mg tablet 80 mg PO BEDTIME 09/25/18 09/08/21 torsemide 20 mg tablet 1 tab PO QAM 09/25/18 09/08/21 cetirizine 10 mg tablet (Allergy 1 tab PO DAILY 02/13/19 09/08/21 Relief (cetirizine)) ferrous sulfate 325 mg (65 mg 1 tab PO QAM 02/13/19 09/08/21 iron) tablet acetaminophen 325 mg tablet 650 mg PO Q6H PRN 08/04/21 09/08/21 acetaminophen 500 mg tablet 1,000 mg PO BID 08/04/21 09/08/21 albuterol sulfate 90 mcg/actuation 2 puff INHALATION Q4H PRN #0 08/04/21 09/08/21 aerosol inhaler (Ventolin HFA) donepezil 10 mg tablet 20 mg PO QAM 08/04/21 09/08/21 fluticasone fur. 100 mcg-umeclid 1 inh INHALATION DAILY 08/04/21 09/08/21 62.5 mcg-vilant 25 mcg inhalat.powder insulin glargine 100 unit/mL (3 9 unit SUBCUT BEDTIME 08/04/21 09/08/21 mL) subcutaneous pen (Lantus Solostar U-100 Insulin) loperamide 2 mg tablet 2 mg PO Q24H PRN 08/04/21 09/08/21 metoprolol tartrate 25 mg tablet 12.5 mg PO BID 08/04/21 09/08/21 nystatin 100,000 unit/gram topical 100,000 unit TOPICAL BID 08/04/21 09/08/21 powder ondansetron HCl 4 mg tablet 4 mg PO Q6HR PRN 08/04/21 09/08/21 pantoprazole 20 mg tablet,delayed 20 mg PO DAILY 08/04/21 09/08/21 release potassium chloride 10 mEq 20 meq PO DAILYCC 08/04/21 09/08/21 tablet,extended release(part/cryst) (Klor-Con M) sennosides 8.6 mg tablet (senna) 17.2 mg PO Q12H PRN 08/04/21 09/08/21 diltiazem HCl 180 mg 180 mg PO DAILY 09/08/21 09/08/21 capsule,extended release 24 hr insulin lispro 100 unit/mL 1 sliding scale dose SUBCUT BIDAC 09/08/21 09/08/21 subcutaneous pen (Humalog KwikPen (U-100) Insulin) melatonin 1 mg tablet 1 mg PO BEDTIME PRN 09/08/21 09/08/21 polyethylene glycol 3350 17 gram 17 g PO BID PRN 09/08/21 09/08/21 oral powder packet (Miralax) vitamin A and D 1 applic TOPICAL BID 09/08/21 09/08/21 Previous Rx's Medication Instructions Recorded prednisone 20 mg tablet 20 mg PO DAILY 7 Days #7 tab 09/30/21 Allergies Allergy/AdvReac Type Severity Reaction Status Date / Time captopril [CAPTOPRIL] Allergy Unknown Verified 09/30/21 08:14 nabumetone [NABUMETONE] Allergy Unknown Rash Verified 09/30/21 08:14 Review of Systems Review of Systems Narrative: GENERAL: Denies chills, fatigue, malaise, fever, sweats. HEENT: Denies sinus pain, ear pain, sore throat, difficulty swallowing, dizziness. RESPIRATORY: See HPI CARDIOVASCULAR: Denies chest pain, palpitations, orthopnea, edema, GASTROINTESTINAL: Denies nausea, vomiting, abdominal pain, diarrhea, constipation, melena. : Denies dysuria, frequency, incontinence, hematuria, urinary retention. MUSCULOSKELETAL: denies weakness, joint pain, or bony pain SKIN: Denies rash, skin lesions, or other NEUROLOGIC: Denies weakness, headache, numbness, change in speech, confusion, seizures, incoordination. PSYCHIATRIC: No concerning psychosocial issues. 12 point review of systems is negative except for those stated above Patient History Medical History Atrial fibrillation Cholelithiasis Chronic respiratory failure with hypoxia and hypercapnia Depression Diabetes Fracture of left ankle Hyperlipidemia Hypertension Inguinal hernia Iron deficiency anemia Lumbar degenerative disc disease Morbid obesity Obesity hypoventilation syndrome Osteoarthritis Paroxysmal atrial fibrillation Pneumococcal meningitis Prolapsed bladder Surgical History History of abdominoplasty History of gastric bypass Family History Mother Heart disease Father No problems noted. Social History household members: family, children and none Smoking Status: Former smoker alcohol intake: former additional social history: lives alone Smoking Status: Former smoker tobacco type: cigarettes alcohol intake frequency: 0-2 drinks per day Substance Use Type: does not use Exam Narrative Exam Narrative: GENERAL: [] year old patient appears stated age. Well-developed patient, in mild distress. HEAD: Atraumatic. Normocephalic. EYES: Pupils equal round and reactive. Extraocular motions intact. No scleral icterus. No injection or drainage. ENT: Nose without bleeding, purulent drainage. Throat without erythema, tonsillar hypertrophy or exudate. Airway patent. NECK: Trachea midline. Non tender CARDIOVASCULAR: Regular rate and rhythm without murmurs, gallops, or rubs. RESPIRATORY: Clear to auscultation. Breath sounds equal bilaterally. No wheezes, rales, or rhonchi. GASTROINTESTINAL: Abdomen soft, non-tender, nondistended. EXTREMITIES: No edema or joint tenderness. BACK: Nontender without deformity or crepitance. No flank tenderness. NEURO: AOx3. SKIN: No rash or erythema of visible areas Initial Vital Signs Initial Vital Signs: Vital Signs Pulse Rate 92 H 10/06/21 21:00 Respiratory Rate 28 H 10/06/21 21:00 Blood Pressure 197/87 H 10/06/21 21:00 Pulse Oximetry 97 10/06/21 21:00 Course Orders Ordered: ED Orders 10/06/21 20:38 XR chest 1V Stat 10/06/21 21:00 Arterial Blood Gas Stat 10/06/21 21:15 C-Reactive Protein Quant Stat Complete Blood Count AUTO DIFF Stat Comprehensive Metabolic Panel Stat D Dimer Stat Ferritin Stat Lactate (Lactic Acid) Stat Lactate Dehydrogenase Stat NT-proBNP (BNP-Adult 18+) Stat Procalcitonin Stat Troponin & CK Cardiac Panel Stat 10/06/21 21:20 Blood Culture Stat Discontinued Medications Dexamethasone (Dexamethasone 10 Mg/Ml Vial) 6 mg IV NOW ONE Stop: 10/06/21 21:10 Last Admin: 10/06/21 22:00 Dose: 6 mg Documented by: KARISSA Remdesivir 200 mg/ Sodium (Chloride) 250 mls @ 250 mls/hr IV NOW ONE Stop: 10/06/21 22:08 Last Infusion: 10/06/21 23:00 Dose: 0 mls/hr Documented by: Admin: 10/06/21 22:00 Dose: 250 mls/hr Documented by: KARISSA Ketorolac Tromethamine (Ketorolac 30 Mg/Ml Vial) 15 mg IV NOW ONE Stop: 10/07/21 00:04 Last Admin: 10/07/21 00:06 Dose: 15 mg Documented by: KARISSA Reevaluation(s) Reevaluation #1: RADHA Index for Intubation after HFNC from [email or web address] on 10/07/2021 All calculations should be rechecked by clinician prior to use RESULT SUMMARY: 5.22 points RADHA Index Low risk of progressing to intubation INPUTS: SpO? ?> 94 % FiO? ?> 60 % Respiratory rate ?> 30 breaths/min Vital Signs Vital signs: Vital Signs - 8 hr 10/06/21 21:00 10/06/21 21:10 10/06/21 21:15 Temperature 98.1 F Pulse Rate 92 H 87 87 Respiratory Rate 28 H 28 H 53 H Blood Pressure 197/87 H 122/57 L Pulse Oximetry 97 60 L 70 L 11/11/21 21:26 10/06/21 21:30 10/06/21 21:41 Temperature Pulse Rate 89 89 92 H Respiratory Rate 28 H 29 H 30 H Blood Pressure 139/65 140/75 141/74 H Pulse Oximetry 98 99 95 10/06/21 21:51 10/06/21 22:00 10/06/21 22:11 Temperature Pulse Rate 94 H 101 H 94 H Respiratory Rate 33 H 43 H 28 H Blood Pressure 131/70 108/57 L 187/87 H Pulse Oximetry 95 98 95 10/06/21 22:20 10/06/21 22:30 10/06/21 22:40 Temperature Pulse Rate 92 H 97 H 93 H Respiratory Rate 28 H 29 H 28 H Blood Pressure 197/87 H 198/129 H 216/93 H Pulse Oximetry 97 96 96 10/06/21 22:50 10/06/21 23:00 10/06/21 23:10 Temperature Pulse Rate 92 H 92 H 91 H Respiratory Rate 24 35 H 30 H Blood Pressure 206/93 H 196/86 H 182/85 H Pulse Oximetry 96 94 96 10/06/21 23:20 10/06/21 23:30 10/06/21 23:40 Temperature Pulse Rate 91 H 92 H 90 Respiratory Rate 28 H 29 H 28 H Blood Pressure 189/86 H 194/86 H 194/85 H Pulse Oximetry 92 92 94 10/06/21 23:50 10/06/21 23:59 10/07/21 00:00 Temperature 101.3 F H Pulse Rate 92 H 103 H 97 H Respiratory Rate 27 H 28 H 24 Blood Pressure 194/87 H 141/62 H 138/65 Pulse Oximetry 94 92 92 10/07/21 00:06 10/07/21 00:11 10/07/21 00:20 Temperature 101.3 F H 100.8 F H Pulse Rate 90 93 H Respiratory Rate 28 H 26 H Blood Pressure 154/77 H 157/79 H Pulse Oximetry 93 94 MDM - SOB/Dyspnea Lab Data Result diagrams: 10/06/21 21:15 10/06/21 21:15 Labs: Lab Results 10/06/21 10/06/21 10/06/21 Range/Units 21:00 21:15 21:15 WBC (4.5-11.0) X10^3/uL RBC (4.0-5.2) X10^6/uL Hgb (12.0-16.0) g/dL Hct (36-46) % MCV (80-100) fL MCH (26-34) PG MCHC (30-36) % RDW (11.6-14.8) % Plt Count (150-400) X10^3/uL Neut % (Auto) (50-75) % Lymph % (Auto) (25-40) % Mcpherson % (Auto) (3-14) % Eos % (Auto) (2-4) % Baso % (Auto) (0-2) % Neut # (Auto) (4049-4585) /uL Lymph # (Auto) (2594-2953) /uL Mcpherson # (Auto) (0-900) /uL Eos # (Auto) (0-450) /uL Baso # (Auto) (0-100) /uL D-Dimer 713 H (<230) ng/mL ABG pH 7.41 (7.35-7.45) ABG pCO2 72.4 H* (35-45) mmHg ABG pO2 32 L* (80-100) mmHg ABG HCO3 46 H (22-26) mmol/L ABG Total CO2 48 H (21-31) mmol/L ABG O2 Saturation 59 L* (95-100) % ABG Base Excess 22.0 H (-2-2) mmol/L FiO2 21 Sodium (137-145) mmol/L Potassium (3.4-5.1) mmol/L Chloride (98-107) mmol/L Carbon Dioxide (22-32) mmol/L BUN (7-17) mg/dL Creatinine (0.52-1.04) mg/dL Estimated GFR (>60) mL/min BUN/Creatinine Ratio (6-22) Glucose (80-110) mg/dL Lactate (0.7-2.1) mmol/L Calcium (8.4-10.2) mg/dL Ferritin (11-264) ng/mL Total Bilirubin (0.2-1.3) mg/dL AST (14-36) IU/L ALT (<35) IU/L Alkaline Phosphatase (38-126) U/L Lactate Dehydrogenase (313-618) U/L Total Creatine Kinase (30-135) U/L CK-MB (CK-2) CK-MB (CK-2) Rel Index Troponin I (0.01-0.034) ng/mL C-Reactive Protein (<1.0) mg/dL NT-Pro-B Natriuret Pep (<125) pg/mL Total Protein (6.3-8.2) g/dL Albumin (3.5-5.0) g/dL Globulin (1.7-4.1) g/dL Albumin/Globulin Ratio (1.0-2.8) Procalcitonin 0.06 (<0.5) ng/mL 10/06/21 10/06/21 10/06/21 Range/Units 21:15 21:15 21:15 WBC 3.8 L (4.5-11.0) X10^3/uL RBC 3.94 L (4.0-5.2) X10^6/uL Hgb 11.3 L (12.0-16.0) g/dL Hct 36.7 (36-46) % MCV 93.1 (80-100) fL MCH 28.7 (26-34) PG MCHC 30.9 (30-36) % RDW 16.9 H (11.6-14.8) % Plt Count 150 (150-400) X10^3/uL Neut % (Auto) 74.1 (50-75) % Lymph % (Auto) 9.0 L (25-40) % Mcpherson % (Auto) 15.3 H (3-14) % Eos % (Auto) 1.0 L (2-4) % Baso % (Auto) 0.6 (0-2) % Neut # (Auto) 2800 (4556-6550) /uL Lymph # (Auto) 300 L (2615-1552) /uL Mcpherson # (Auto) 600 (0-900) /uL Eos # (Auto) 0 (0-450) /uL Baso # (Auto) 0 (0-100) /uL D-Dimer (<230) ng/mL ABG pH (7.35-7.45) ABG pCO2 (35-45) mmHg ABG pO2 (80-100) mmHg ABG HCO3 (22-26) mmol/L ABG Total CO2 (21-31) mmol/L ABG O2 Saturation (95-100) % ABG Base Excess (-2-2) mmol/L FiO2 Sodium 138 (137-145) mmol/L Potassium 4.3 (3.4-5.1) mmol/L Chloride 89 L (98-107) mmol/L Carbon Dioxide 47 H* (22-32) mmol/L BUN 17 (7-17) mg/dL Creatinine 0.66 (0.52-1.04) mg/dL Estimated GFR > 60.0 (>60) mL/min BUN/Creatinine Ratio 25.8 H (6-22) Glucose 170 H (80-110) mg/dL Lactate 0.9 (0.7-2.1) mmol/L Calcium 8.7 (8.4-10.2) mg/dL Ferritin 44 (11-264) ng/mL Total Bilirubin 0.5 (0.2-1.3) mg/dL AST 20 (14-36) IU/L ALT 14 (<35) IU/L Alkaline Phosphatase 68 (38-126) U/L Lactate Dehydrogenase 457 (313-618) U/L Total Creatine Kinase < 20 L (30-135) U/L CK-MB (CK-2) TNP CK-MB (CK-2) Rel Index TNP Troponin I < 0.012 (0.01-0.034) ng/mL C-Reactive Protein 1.7 H (<1.0) mg/dL NT-Pro-B Natriuret Pep 627 H (<125) pg/mL Total Protein 6.5 (6.3-8.2) g/dL Albumin 3.5 (3.5-5.0) g/dL Globulin 3.0 (1.7-4.1) g/dL Albumin/Globulin Ratio 1.2 (1.0-2.8) Procalcitonin (<0.5) ng/mL Imaging Data Chest x-ray: Radiologist's Impression: Alem Donahue??70??F??1950 ? Allergy/Adv: captopril, nabumetone Close Chest X-Ray (Signed) Chucho Santana - 10/06/21 Chest X-Ray (Signed) Nelson Christie - 09/30/21 Telemetry Strips 09/08/21 Telemetry Strips 09/08/21 Chest X-Ray (Signed) VannaGreyson - 09/08/21 Telemetry Strips 08/04/21 Telemetry Strips 08/04/21 Chest X-Ray (Signed) Melinda Smith - 08/03/21 Chest X-Ray (Signed) Clark,Alberto - 03/12/[address] (Signed) Clark,Alberto - 03/12/[address] (Signed) Clark,Alberto - 03/12/21 Chest X-Ray (Signed) Clark,Alberto - 03/12/21 Chest X-Ray (Signed) Saulo Tyson - 01/22/[address] (Signed) Michael Narayan - 05/01/20 Knee X-Ray (Signed) Michael Narayan - 05/01/20 Ankle X-Ray (Signed) Chucho Santana - 12/23/19 Knee X-Ray (Signed) Michael Narayan - 12/20/19 Telemetry Strips 02/13/19 Chest X-Ray (Signed) Laney Phillips - 02/12/19 Telemetry Strips 10/05/18 Telemetry Strips 10/05/18 Chest X-Ray (Signed) Marizol Dumont - 10/05/[address] (Signed) Laney Phillips - 09/25/18 Telemetry Strips 06/18/18 Pelvis X-Ray (Signed) Melinda Smith - 06/17/18 Chest X-Ray (Signed) Maxime Jones - 06/17/18 Telemetry Strips 06/12/18 Chest X-Ray (Signed) Naveen Edouard - 06/12/18 Vascular Ultrasound (Signed) Chucho Santana - 06/04/18 Chest X-Ray (Signed) Chucho Santana - 06/04/18 Launch?[address] [address] XRay Report Signed Patient: Alem Donahue MR#: [id number] : 1950 Acct:[id number] Age/Sex: 70 / F Date of Service: 10/06/21 Loc: ED Accession Number: [id number] ?? Procedure: XR chest 1V Ordering Provider: Erik Odonnell D.O. PROCEDURE:? XR CHEST 1V ? INDICATIONS:? flu-like symptoms ? TECHNIQUE:? One view of the chest was acquired.? ? COMPARISON:? [facility], CR, XR CHEST 1V, 08/03/2021, 23:12.? [facility], CR, XR CHEST 1V, 09/30/2021, 8:45. ? FINDINGS:? ? Surgical changes and devices:? None.? ? Lungs and pleura:? Overall, no definite interval change in widespread ill- defined and ground-glass opacities.? No new focal consolidation.? No pleural effusions or pneumothorax. ? Mediastinum:? Mediastinal contours appear normal.? Heart size is normal.? ? Bones and chest wall:? No suspicious bony lesions.? Overlying soft tissues appe ar unremarkable.? ? IMPRESSION:? No interval change since 09/30/21. ? Dictated by: Chucho Santana M.D. on 10/06/2021 at 21:48 ? ? Approved by: Chucho Santana M.D. on 10/06/2021 at 21:49 ? Discharge Plan Departure Patient Disposition: Admitted As Inpatient Clinical Impression: Acute hypercapnic respiratory failure, Acute and chronic respiratory failure with hypoxia, COVID Admit Date/Time: 10/07/21 00:27 Admit Provider: Geovanna Sanchez
--- NOTE | 2021-10-06 21:33 | PC.NURSE ---
Pt moved from Rm 11 to negative pressure room 6. Placed on 6L O2 NC and currently 94-99%. CXR obtained and pt increasingly more sleepy, arouses to verbal stimuli. Pt POLST DNR however her son was told by a Physician at [place] that the patient wanted to be a full code. Dr Odonnell spoke with son and he is on the way to ED. ABG obtained. PCO2 74.2 PO2 32. No new orders from Dr Odonnell at this time.
[2021-10-06 21:36] LABS: Add Manual Diff / Slide Review NO; Basophils Absolute Auto 0 /uL (0-100); Basophils Percent Auto 0.6 % (0-2); Eosinophils Absolute Auto 0 /uL (0-450); Hematocrit 36.7 % (36-46); Hemoglobin 11.3 g/dL (12.0-16.0); Lymphocytes Absolute Auto 300 /uL (1100-4500); Mean Corpuscular HGB Conc 30.9 % (30-36); Mean Corpuscular Hemoglobin 28.7 PG (26-34); Mean Corpuscular Volume 93.1 fL (80-100); Monocytes Absolute Auto 600 /uL (0-900); Monocytes Percent Auto 15.3 % (3-14); Neutrophils Absolute Auto 2800 /uL (1500-7000); Neutrophils Percent Auto 74.1 % (50-75); Platelet Count 150 X10^3/uL (150-400); Red Blood Cell Count 3.94 X10^6/uL (4.0-5.2); Red Cell Distribution Width 16.9 % (11.6-14.8); White Blood Cell Count 3.8 X10^3/uL (4.5-11.0)
[2021-10-06 21:49] LABS: D Dimer 713 ng/mL (<230)
[2021-10-06 21:54] LABS: Alanine Aminotransferase 14 IU/L (<35); Albumin 3.5 g/dL (3.5-5.0); Albumin Globulin Ratio 1.2 (1.0-2.8); Alkaline Phosphatase 68 U/L (38-126); Aspartate Aminotransferase 20 IU/L (14-36); BUN Creatinine Ratio 25.8 (6-22); Bilirubin Total 0.5 mg/dL (0.2-1.3); Blood Urea Nitrogen 17 mg/dL (7-17); Calcium 8.7 mg/dL (8.4-10.2); Chloride 89 mmol/L (98-107); Creatine Kinase < 20 U/L (30-135); Estimated Glomerular Filt Rate > 60.0 mL/min (>60); Glucose 170 mg/dL (80-110); HEMOLYSIS < 15 (0-50); Lactate (Lactic Acid) 0.9 mmol/L (0.7-2.1); Potassium 4.3 mmol/L (3.4-5.1); Sodium 138 mmol/L (137-145); Total Protein 6.5 g/dL (6.3-8.2)
[2021-10-06] MEDS: DEXAMETHASONE 10 MG/ML VIAL 6 MG IV (22:00)
[2021-10-06] MEDS: REMDESIVIR 200 MG in SODIUM CHLORIDE 0.9% 210 ML 250 ML IV (22:00)
[2021-10-06 22:05] LABS: NT-proBNP (BNP-Adult 18+) 627 pg/mL (<125); Troponin I < 0.012 ng/mL (0.01-0.034)
[2021-10-06 22:11] LABS: Procalcitonin 0.06 ng/mL (<0.5)
[2021-10-06 22:28] LABS: Ferritin 44 ng/mL (11-264)
[2021-10-06 22:53] LABS: Carbon Dioxide 47 mmol/L (22-32)
[2021-10-06 23:31] LABS: C-Reactive Protein Quant 1.7 mg/dL (<1.0); Lactate Dehydrogenase 457 U/L (313-618)
[2021-10-06 23:44] LABS: pH ABG 7.41 (7.35-7.45)
[2021-10-06 23:45] LABS: PCO2 ABG 72.4 mmHg (35-45)
[2021-10-06 23:46] LABS: Fractionated Inspired Oxygen 21; HCO3 ABG 46 mmol/L (22-26); Oxygen Saturation ABG 59 % (95-100); PO2 ABG 32 mmHg (80-100); TCO2 ABG 48 mmol/L (21-31)
[2021-10-07] VITALS (42 sets, daily range): BP systolic 102–168; BP diastolic 51–79; PULSE 55–97; RESP 16–29; TEMP 36.6–38.7; O2SAT 83–97; BMI 51.6
[2021-10-07] MEDS: KETOROLAC 30 MG/ML VIAL 15 MG IV (00:06)
--- NOTE | 2021-10-07 01:06 | P.HP_ITS ---
History of Present Illness History of Present Illness Date Patient Seen: 10/07/21 Chief complaint: COVID + low O2 Narrative: The patient is a 70-year-old female with a history of COPD, chronic hypoxic hypercapnic respiratory failure, atrial fibrillation not on anticoagulation, type 2 diabetes, hypertension, hyperlipidemia, iron deficiency anemia, morbid obesity, who tested positive for COVID recently. She was brought in by EMS for evaluation of worsening respiratory failure. Patient has had increasing shortness of breath and cough. Oxygen saturation has been 50-60%. She has been hospitalized at [facility] in July and early September. The patient was discharged from the emergency department September 30 with a referral to hospice and was DNR. However after discussion with her DPOA, her physician, the patient is now full code per her revised Polst form. The patient was seen on September 30 for shortness of breath. She was treated for an exacerbation of COPD. She was COVID negative at that time and discharged home. History was obtained from the emergency room notes and prior medical notes here. The patient is lethargic, sleepy, she does arouse however is unable and/or unwilling to give any additional history. In the emergency room her white count was 3.8 hemoglobin 11.3 hematocrit 36.7, D-dimer elevated at 713, patient had an ABG which showed a pH is 7.41, pCO2 of 72.4, PO2 of 32, saturation 59%, on room air. The patient was placed on 4 L of oxygen, because of ongoing hypoxia she was increased to high-flow oxygen at 45%. Her sodium was 138 potassium 4.3 chloride 89 BUN 17 creatinine 0.66 her C reactive protein is elevated at 1.7 proBNP is 627 her procalcitonin is 0.06 [id number] is positive. Chest x-ray in the emergency room reveals no definite change from her last x-ray on September 30. She has no focal consolidations. However she does have widespread ill-defined ground-glass opacities. The patient is admitted to the hospital for acute hypoxic respiratory failure secondary to COVID pneumonia and COPD. Patient History Medical History Atrial fibrillation Cholelithiasis Chronic respiratory failure with hypoxia and hypercapnia Depression Diabetes Fracture of left ankle Hyperlipidemia Hypertension Inguinal hernia Iron deficiency anemia Lumbar degenerative disc disease Morbid obesity Obesity hypoventilation syndrome Osteoarthritis Paroxysmal atrial fibrillation Pneumococcal meningitis Prolapsed bladder Surgical History History of abdominoplasty History of gastric bypass Family & Social History Family History Mother Heart disease Father No problems noted. Social History: household members family,none,children Safety & Behavioral: Feels Safe in Current Yes Environment Been Physically Hurt or No Threatened By a Person Tobacco & Substance use: Tobacco type cigarettes Smoking Status Former smoker alcohol intake former alcohol intake frequency 0-2 drinks per day Substance Use Type does not use Meds Home Medications and Allergies Home Medications Medication Instructions Recorded Confirmed Type aspirin 81 mg tablet,delayed 81 mg PO DAILY 04/12/18 09/08/21 History release ursodiol 300 mg capsule 300 mg PO BID 04/12/18 09/08/21 History gabapentin 300 mg capsule 300 mg PO TID 09/04/18 09/08/21 History atorvastatin 80 mg tablet 80 mg PO BEDTIME 09/25/18 09/08/21 History torsemide 20 mg tablet 1 tab PO QAM 09/25/18 09/08/21 History cetirizine 10 mg tablet (Allergy 1 tab PO DAILY 02/13/19 09/08/21 History Relief (cetirizine)) ferrous sulfate 325 mg (65 mg 1 tab PO QAM 02/13/19 09/08/21 History iron) tablet acetaminophen 325 mg tablet 650 mg PO Q6H PRN 08/04/21 09/08/21 History acetaminophen 500 mg tablet 1,000 mg PO BID 08/04/21 09/08/21 History albuterol sulfate 90 mcg/actuation 2 puff INHALATION Q4H PRN #0 08/04/21 09/08/21 History aerosol inhaler (Ventolin HFA) donepezil 10 mg tablet 20 mg PO QAM 08/04/21 09/08/21 History fluticasone fur. 100 mcg-umeclid 1 inh INHALATION DAILY 08/04/21 09/08/21 History 62.5 mcg-vilant 25 mcg inhalat.powder insulin glargine 100 unit/mL (3 9 unit SUBCUT BEDTIME 08/04/21 09/08/21 History mL) subcutaneous pen (Lantus Solostar U-100 Insulin) loperamide 2 mg tablet 2 mg PO Q24H PRN 08/04/21 09/08/21 History metoprolol tartrate 25 mg tablet 12.5 mg PO BID 08/04/21 09/08/21 History nystatin 100,000 unit/gram topical 100,000 unit TOPICAL BID 08/04/21 09/08/21 History powder ondansetron HCl 4 mg tablet 4 mg PO Q6HR PRN 08/04/21 09/08/21 History pantoprazole 20 mg tablet,delayed 20 mg PO DAILY 08/04/21 09/08/21 History release potassium chloride 10 mEq 20 meq PO DAILYCC 08/04/21 09/08/21 History tablet,extended release(part/cryst) (Klor-Con M) sennosides 8.6 mg tablet (senna) 17.2 mg PO Q12H PRN 08/04/21 09/08/21 History diltiazem HCl 180 mg 180 mg PO DAILY 09/08/21 09/08/21 History capsule,extended release 24 hr insulin lispro 100 unit/mL 1 sliding scale dose SUBCUT BIDAC 09/08/21 09/08/21 History subcutaneous pen (Humalog KwikPen (U-100) Insulin) melatonin 1 mg tablet 1 mg PO BEDTIME PRN 09/08/21 09/08/21 History polyethylene glycol 3350 17 gram 17 g PO BID PRN 09/08/21 09/08/21 History oral powder packet (Miralax) vitamin A and D 1 applic TOPICAL BID 09/08/21 09/08/21 History prednisone 20 mg tablet 20 mg PO DAILY 7 Days #7 tab 09/30/21 Rx Allergies Allergy/AdvReac Type Severity Reaction Status Date / Time captopril [CAPTOPRIL] Allergy Unknown Verified 09/30/21 08:14 nabumetone [NABUMETONE] Allergy Unknown Rash Verified 09/30/21 08:14 Review of Systems Review of Systems Narrative: Unobtainable as the patient is lethargic and has difficulty participating with the history Exam Vital Signs (past 8 hours): - 10/06/21 21:00 10/06/21 21:10 10/06/21 21:15 Temperature 98.1 F Pulse Rate 92 H 87 87 Respiratory Rate 28 H 28 H 53 H Blood Pressure 197/87 H 122/57 L Pulse Oximetry 97 60 L 70 L 10/06/21 21:26 10/06/21 21:30 10/06/21 21:41 Temperature Pulse Rate 89 89 92 H Respiratory Rate 28 H 29 H 30 H Blood Pressure 139/65 140/75 141/74 H Pulse Oximetry 98 99 95 10/06/21 21:51 10/06/21 22:00 10/06/21 22:11 Temperature Pulse Rate 94 H 101 H 94 H Respiratory Rate 33 H 43 H 28 H Blood Pressure 131/70 108/57 L 187/87 H Pulse Oximetry 95 98 95 10/06/21 22:20 10/06/21 22:30 10/06/21 22:40 Temperature Pulse Rate 92 H 97 H 93 H Respiratory Rate 28 H 29 H 28 H Blood Pressure 197/87 H 198/129 H 216/93 H Pulse Oximetry 97 96 96 10/06/21 22:50 10/06/21 23:00 10/06/21 23:10 Temperature Pulse Rate 92 H 92 H 91 H Respiratory Rate 24 35 H 30 H Blood Pressure 206/93 H 196/86 H 182/85 H Pulse Oximetry 96 94 96 10/06/21 23:20 10/06/21 23:30 10/06/21 23:40 Temperature Pulse Rate 91 H 92 H 90 Respiratory Rate 28 H 29 H 28 H Blood Pressure 189/86 H 194/86 H 194/85 H Pulse Oximetry 92 92 94 10/06/21 23:50 10/06/21 23:59 10/07/21 00:00 Temperature 101.3 F H Pulse Rate 92 H 103 H 97 H Respiratory Rate 27 H 28 H 24 Blood Pressure 194/87 H 141/62 H 138/65 Pulse Oximetry 94 92 92 10/07/21 00:06 10/07/21 00:11 10/07/21 00:20 Temperature 101.3 F H 100.8 F H Pulse Rate 90 93 H Respiratory Rate 28 H 26 H Blood Pressure 154/77 H 157/79 H Pulse Oximetry 93 94 10/07/21 00:30 Temperature 101.3 F H Pulse Rate 90 Respiratory Rate 26 H Blood Pressure 168/76 H Pulse Oximetry 89 L Oxygen Delivery Method Heated High Flow Oxygen Flow Rate 45 Narrative Exam Narrative: Lethargic but arousable ill-appearing female lying in bed HENMT Other: HEENT: Normocephalic atraumatic sclerae anicteric, oropharynx reveals dry mucous membranes, neck is supple without adenopathy, there is mild erythema beneath the chin Resp Other: Lungs decreased breath sounds with diffuse rhonchi and wheezing bilaterally Cardio Other: Cardiac exam: Regular rate and rhythm normal S1-S2 with a 2/6 systolic e jection murmur GI Other: Abdomen: Obese soft and nontender Skin Other: No obvious lesion Neuro Other: Patient is lethargic, but does arouse to stimuli, she quickly falls back to sleep. She does not participate in exam. She does withdraw extremities to stimuli Extrem Other: 2+ edema bilaterally Psych Other: Unobtainable at this time Objective Labs Result Diagrams: 10/06/21 21:15 10/06/21 21:15 Labs: Laboratory Results - last 24 hr 10/06/21 10/06/21 10/06/21 21:00 21:15 21:15 WBC RBC Hgb Hct MCV MCH MCHC RDW Plt Count Neut % (Auto) Lymph % (Auto) [place] % (Auto) Eos % (Auto) Baso % (Auto) Neut # (Auto) Lymph # (Auto) [place] # (Auto) Eos # (Auto) Baso # (Auto) D-Dimer 713 H ABG pH 7.41 ABG pCO2 72.4 H* ABG pO2 32 L* ABG HCO3 46 H ABG Total CO2 48 H ABG O2 Saturation 59 L* ABG Base Excess 22.0 H FiO2 21 Sodium Potassium Chloride Carbon Dioxide BUN Creatinine Estimated GFR BUN/Creatinine Ratio Glucose Lactate Calcium Ferritin Total Bilirubin AST ALT Alkaline Phosphatase Lactate Dehydrogenase Total Creatine Kinase CK-MB (CK-2) CK-MB (CK-2) Rel Index Troponin I C-Reactive Protein NT-Pro-B Natriuret Pep Total Protein Albumin Globulin Albumin/Globulin Ratio Procalcitonin 0.06 10/06/21 10/06/21 10/06/21 21:15 21:15 21:15 WBC 3.8 L RBC 3.94 L Hgb 11.3 L Hct 36.7 MCV 93.1 MCH 28.7 MCHC 30.9 RDW 16.9 H Plt Count 150 Neut % (Auto) 74.1 Lymph % (Auto) 9.0 L [place] % (Auto) 15.3 H Eos % (Auto) 1.0 L Baso % (Auto) 0.6 Neut # (Auto) 2800 Lymph # (Auto) 300 L [place] # (Auto) 600 Eos # (Auto) 0 Baso # (Auto) 0 D-Dimer ABG pH ABG pCO2 ABG pO2 ABG HCO3 ABG Total CO2 ABG O2 Saturation ABG Base Excess FiO2 Sodium 138 Potassium 4.3 Chloride 89 L Carbon Dioxide 47 H* BUN 17 Creatinine 0.66 Estimated GFR > 60.0 BUN/Creatinine Ratio 25.8 H Glucose 170 H Lactate 0.9 Calcium 8.7 Ferritin 44 Total Bilirubin 0.5 AST 20 ALT 14 Alkaline Phosphatase 68 Lactate Dehydrogenase 457 Total Creatine Kinase < 20 L CK-MB (CK-2) TNP CK-MB (CK-2) Rel Index TNP Troponin I < 0.012 C-Reactive Protein 1.7 H NT-Pro-B Natriuret Pep 627 H Total Protein 6.5 Albumin 3.5 Globulin 3.0 Albumin/Globulin Ratio 1.2 Procalcitonin Assessment & Plan Assessment & Plan narrative: 70-year-old female with chronic hypercapnic hypoxemic respiratory failure, obesity hypoventilation syndrome, COPD, diabetes, chronic pain, paroxysmal atrial fibrillation, and dementia who was admitted to the hospital for acute respiratory failure most likely related to COVID 19 pneumonia * Acute on chronic hypoxemic respiratory failure * Patient recently admitted September 30 for COPD exacerbation. She was COVID negative at that time she was made DNR DNI. However since that time she is now full code per her revised polst * Patient markedly hypoxic in the emergency room. She is now COVID positive. She will be treated with Decadron, remdesivir, and baricitinib * Patient will continue on high-flow oxygen and titrate to affect * Will continue albuterol inhaler for her COPD * Procalcitonin is negative, no evidence of bacterial superinfection, but will continue to follow closely * Obesity hypoventilation, likely contributing to her hypercapnia and hypoxemia. She is oxygenating well on high-flow oxygen * Patient is full code, should she deteriorate, she will be intubated per her wishes Essential hypertension * Will continue diltiazem and metoprolol Paroxysmal atrial fibrillation * She is not anticoagulated * Rate currently controlled, continue diltiazem and metoprolol Type 2 diabetes * Will continue her usual home regimen * We do not have insulin U 100, will confer with pharmacy in the morning to adjust accordingly will continue sliding scale of insulin as well Hyperlipidemia * Continue statin GERD * Continue proton pump inhibitor Alzheimer's dementia * Continue donepezil Acute metabolic encephalopathy * Likely multifactorial related to baseline dementia, acute hypoxic respiratory failure, and acute decompensated medical problems * Patient has been placed on Lovenox 40 mg subQ daily for DVT prophylaxis Based on her updated Polst form patient is now full code Her son is her DPOA and surrogate decision maker Patient is admitted as an inpatient COVID-19 COVID-19 status: Positive Result date/Date tested (Pos, Neg/Pending): 10/07/21 Time Spent With Patient Critical Care time: I spent a total of [] minutes of critical care time on this patient's care today; this time is exclusive of procedural time.
--- NOTE | 2021-10-07 02:34 | P.TELICUCN_ITS ---
History of Present Illness Consult details Chief complaint: COVID + low O2 :: This patient was seen via real time interactive two-way audiovisual telecommunication. 70 y.o. female with chronic hypoxic/hypercapneic respiratory failure, morbid obesity/PATRICK/hypoventilation syndrome, COPD, AF not on anticoagulation, dementia, who was sent from her assisted due to SOB. She recently tested positive for COVID-19. In the ED, ABG was 7.40/74/32 and she was started on HFNC as well as remdesivir, baricitinib and dexamethasone. Code status is currently FULL CODE but was DNR/DNI during a hospitalization earlier this month. [facility] Medical History Atrial fibrillation Cholelithiasis Chronic respiratory failure with hypoxia and hypercapnia Depression Diabetes Fracture of left ankle Hyperlipidemia Hypertension Inguinal hernia Iron deficiency anemia Lumbar degenerative disc disease Morbid obesity Obesity hypoventilation syndrome Osteoarthritis Paroxysmal atrial fibrillation Pneumococcal meningitis Prolapsed bladder Surgical History History of abdominoplasty History of gastric bypass Family History Mother Heart disease Father No problems noted. Social History household members: family, children and none Smoking Status: Former smoker alcohol intake: former additional social history: lives alone Current Medications Current Medications Medications: Home Medications aspirin 81 mg tablet,delayed release 81 mg PO DAILY 04/12/18 [History Confirmed 09/08/21] ursodiol 300 mg capsule 300 mg PO BID 04/12/18 [History Confirmed 09/08/21] gabapentin 300 mg capsule 300 mg PO TID 09/04/18 [History Confirmed 09/08/21] atorvastatin 80 mg tablet 80 mg PO BEDTIME 09/25/18 [History Confirmed 09/08/21] torsemide 20 mg tablet 1 tab PO QAM 09/25/18 [History Confirmed 09/08/21] cetirizine 10 mg tablet (Allergy Relief (cetirizine)) 1 tab PO DAILY 02/13/19 [History Confirmed 09/08/21] ferrous sulfate 325 mg (65 mg iron) tablet 1 tab PO QAM 02/13/19 [History Confirmed 09/08/21] acetaminophen 325 mg tablet 650 mg PO Q6H PRN 08/04/21 [History Confirmed 09/08/21] acetaminophen 500 mg tablet 1,000 mg PO BID 08/04/21 [History Confirmed 09/08/21] albuterol sulfate 90 mcg/actuation aerosol inhaler (Ventolin HFA) 2 puff INHALATION Q4H PRN #0 08/04/21 [History Confirmed 09/08/21] donepezil 10 mg tablet 20 mg PO QAM 08/04/21 [History Confirmed 09/08/21] fluticasone fur. 100 mcg-umeclid 62.5 mcg-vilant 25 mcg inhalat.powder 1 inh INHALATION DAILY 08/04/21 [History Confirmed 09/08/21] insulin glargine 100 unit/mL (3 mL) subcutaneous pen (Lantus Solostar U-100 Insulin) 9 unit SUBCUT BEDTIME 08/04/21 [History Confirmed 09/08/21] loperamide 2 mg tablet 2 mg PO Q24H PRN 08/04/21 [History Confirmed 09/08/21] metoprolol tartrate 25 mg tablet 12.5 mg PO BID 08/04/21 [History Confirmed 09/08/21] nystatin 100,000 unit/gram topical powder 100,000 unit TOPICAL BID 08/04/21 [History Confirmed 09/08/21] ondansetron HCl 4 mg tablet 4 mg PO Q6HR PRN 08/04/21 [History Confirmed 09/08/21] pantoprazole 20 mg tablet,delayed release 20 mg PO DAILY 08/04/21 [History Confirmed 09/08/21] potassium chloride 10 mEq tablet,extended release(part/cryst) (Klor-Con M) 20 meq PO DAILYCC 08/04/21 [History Confirmed 09/08/21] sennosides 8.6 mg tablet (senna) 17.2 mg PO Q12H PRN 08/04/21 [History Confirmed 09/08/21] diltiazem HCl 180 mg capsule,extended release 24 hr 180 mg PO DAILY 09/08/21 [History Confirmed 09/08/21] insulin lispro 100 unit/mL subcutaneous pen (Humalog KwikPen (U-100) Insulin) 1 sliding scale dose SUBCUT BIDAC 09/08/21 [History Confirmed 09/08/21] melatonin 1 mg tablet 1 mg PO BEDTIME PRN 09/08/21 [History Confirmed 09/08/21] polyethylene glycol 3350 17 gram oral powder packet (Miralax) 17 g PO BID PRN 09/08/21 [History Confirmed 09/08/21] vitamin A and D 1 applic TOPICAL BID 09/08/21 [History Confirmed 09/08/21] prednisone 20 mg tablet 20 mg PO DAILY 7 Days #7 tab 09/30/21 [Rx] Exam Vital Signs (past 8 hours): - 10/06/21 21:00 10/06/21 21:10 10/06/21 21:15 Temperature 98.1 F Pulse Rate 92 H 87 87 Respiratory Rate 28 H 28 H 53 H Blood Pressure 197/87 H 122/57 L Pulse Oximetry 97 60 L 70 L 10/06/21 21:26 10/06/21 21:30 10/06/21 21:41 Temperature Pulse Rate 89 89 92 H Respiratory Rate 28 H 29 H 30 H Blood Pressure 139/65 140/75 141/74 H Pulse Oximetry 98 99 95 10/06/21 21:51 10/06/21 22:00 10/06/21 22:11 Temperature Pulse Rate 94 H 101 H 94 H Respiratory Rate 33 H 43 H 28 H Blood Pressure 131/70 108/57 L 187/87 H Pulse Oximetry 95 98 95 10/06/21 22:20 10/06/21 22:30 10/06/21 22:40 Temperature Pulse Rate 92 H 97 H 93 H Respiratory Rate 28 H 29 H 28 H Blood Pressure 197/87 H 198/129 H 216/93 H Pulse Oximetry 97 96 96 10/06/21 22:50 10/06/21 23:00 10/06/21 23:10 Temperature Pulse Rate 92 H 90 91 H Respiratory Rate 24 20 30 H Blood Pressure 206/93 H 196/86 H 182/85 H Pulse Oximetry 96 97 96 10/06/21 23:20 10/06/21 23:30 10/06/21 23:40 Temperature Pulse Rate 91 H 92 H 90 Respiratory Rate 28 H 29 H 28 H Blood Pressure 189/86 H 194/86 H 194/85 H Pulse Oximetry 92 92 94 10/06/21 23:50 10/06/21 23:59 10/07/21 00:00 Temperature 101.3 F H Pulse Rate 92 H 103 H 97 H Respiratory Rate 27 H 28 H 24 Blood Pressure 194/87 H 141/62 H 138/65 Pulse Oximetry 94 92 92 10/07/21 00:06 10/07/21 00:11 10/07/21 00:20 Temperature 101.3 F H 100.8 F H Pulse Rate 90 93 H Respiratory Rate 28 H 26 H Blood Pressure 154/77 H 157/79 H Pulse Oximetry 93 94 10/07/21 00:30 10/07/21 00:40 10/07/21 00:50 Temperature 101.3 F H 101.5 F H 101.7 F H Pulse Rate 90 91 H 94 H Respiratory Rate 26 H 26 H 29 H Blood Pressure 168/76 H 154/72 H 151/71 H Pulse Oximetry 89 L 93 92 10/07/21 01:07 10/07/21 01:21 10/07/21 01:22 Temperature 101.1 F H Pulse Rate 97 H 90 87 Respiratory Rate 18 24 Blood Pressure 110/57 L 115/51 L Pulse Oximetry 96 94 10/07/21 01:30 10/07/21 01:31 10/07/21 01:51 Temperature 101.1 F H 101.1 F H 100.8 F H Pulse Rate 86 91 H 91 H Respiratory Rate 20 22 26 H Blood Pressure 103/56 L 110/57 L Pulse Oximetry 90 L 83 L 94 10/07/21 02:00 Temperature 100.6 F H Pulse Rate 84 Respiratory Rate 23 Blood Pressure 112/58 L Pulse Oximetry 90 L Fraction of Inspired Oxygen 60 Oxygen Delivery Method High Flow Nasal Cannula Oxygen Flow Rate 45 Narrative Exam Narrative: morbidly obese female who is lethargic but moving all 4 extremities on camera--she does track and intermittently follow commands Resp Other: HFNC 45 L/min 62% FiO2 Objective Labs Result Diagrams: 10/06/21 21:15 10/06/21 21:15 Labs: Laboratory Results - last 24 hr 10/06/21 10/06/21 10/06/21 21:00 21:15 21:15 WBC RBC Hgb Hct MCV MCH MCHC RDW Plt Count Neut % (Auto) Lymph % (Auto) [place] % (Auto) Eos % (Auto) Baso % (Auto) Neut # (Auto) Lymph # (Auto) [place] # (Auto) Eos # (Auto) Baso # (Auto) D-Dimer 713 H ABG pH 7.41 ABG pCO2 72.4 H* ABG pO2 32 L* ABG HCO3 46 H ABG Total CO2 48 H ABG O2 Saturation 59 L* ABG Base Excess 22.0 H FiO2 21 Sodium Potassium Chloride Carbon Dioxide BUN Creatinine Estimated GFR BUN/Creatinine Ratio Glucose Lactate Calcium Ferritin Total Bilirubin AST ALT Alkaline Phosphatase Lactate Dehydrogenase Total Creatine Kinase CK-MB (CK-2) CK-MB (CK-2) Rel Index Troponin I C-Reactive Protein NT-Pro-B Natriuret Pep Total Protein Albumin Globulin Albumin/Globulin Ratio Procalcitonin 0.06 10/06/21 10/06/21 10/06/21 21:15 21:15 21:15 WBC 3.8 L RBC 3.94 L Hgb 11.3 L Hct 36.7 MCV 93.1 MCH 28.7 MCHC 30.9 RDW 16.9 H Plt Count 150 Neut % (Auto) 74.1 Lymph % (Auto) 9.0 L [place] % (Auto) 15.3 H Eos % (Auto) 1.0 L Baso % (Auto) 0.6 Neut # (Auto) 2800 Lymph # (Auto) 300 L [place] # (Auto) 600 Eos # (Auto) 0 Baso # (Auto) 0 D-Dimer ABG pH ABG pCO2 ABG pO2 ABG HCO3 ABG Total CO2 ABG O2 Saturation ABG Base Excess FiO2 Sodium 138 Potassium 4.3 Chloride 89 L Carbon Dioxide 47 H* BUN 17 Creatinine 0.66 Estimated GFR > 60.0 BUN/Creatinine Ratio 25.8 H Glucose 170 H Lactate 0.9 Calcium 8.7 Ferritin 44 Total Bilirubin 0.5 AST 20 ALT 14 Alkaline Phosphatase 68 Lactate Dehydrogenase 457 Total Creatine Kinase < 20 L CK-MB (CK-2) TNP CK-MB (CK-2) Rel Index TNP Troponin I < 0.012 C-Reactive Protein 1.7 H NT-Pro-B Natriuret Pep 627 H Total Protein 6.5 Albumin 3.5 Globulin 3.0 Albumin/Globulin Ratio 1.2 Procalcitonin Assessment & Plan Assessment and plan (1) Acute on chronic respiratory failure with hypoxia and hypercapnia: Problem details: Due to COVID-19 Status: Acute Plan: -Continue HFNC, remdesivir, dexamethasone, baricitinib -Increased enoxaparin 40 mg to q12H (2) COVID: Status: Acute Plan: -see problem #1 (3) Type 2 diabetes mellitus: Status: Acute Plan: -Continue SUBQ insulin coverage; watch for worsening due to dexamethasone (4) Morbid obesity: Status: Acute Plan: -Maximal skin precautions; see PATRICK (5) Chronic atrial fibrillation: Status: Acute Plan: -Continue outpt diltiazem/metoprolol doses (6) Hypertension: Status: Acute Plan: -see #5 (7) PATRICK and COPD overlap syndrome: Status: Acute Plan: -May need nocturnal NIPPV Time Spent With Patient Critical Care time: I spent a total of 35 minutes of critical care time on this patient's care today; this time is exclusive of procedural time.
--- NOTE | 2021-10-07 05:35 | PC.NURSE ---
TRANSFER TO FLOOR - TRANSFERRED TO ICU ROOM 231 AT 0055. ACCOMPANIED BY EMERGENCY ROOM RN AND SALES MGR. PT TRANSFERRED TO ICU BED FROM ER STRETCHER WITH NO EVENT. PLACED ON TELEMETRY BEDSIDE MONITOR. VSS. PT WAS PLACED ON HIGH FLOW NASAL CANNULA AT TIME OF TRANSFER. PT DID NOT COME WITH ANY BELONGINGS. PT WAS ORIENTED TO THE ROOM, CALL COLLINS WITHIN REACH, BED ALARM WAS ON, AND BED WAS IN LOWEST POSITION.
[2021-10-07] MEDS: FLUTICASONE 120 SPRAY/16 GM SPRAY.SUSP NASAL (08:22)
[2021-10-07] MEDS: BARICITINIB 2 MG TABLET 4 MG PO (08:22)
[2021-10-07] MEDS: METOPROLOL ER 25 MG TABLET 12.5 MG PO ×2 (08:23→21:32)
[2021-10-07] MEDS: DOCUSATE 100 MG CAPSULE PO ×2 (08:23→21:30)
[2021-10-07] MEDS: SENNOSIDES 8.6 MG TABLET 17.2 MG PO ×2 (08:23→21:30)
[2021-10-07] MEDS: GABAPENTIN 300 MG CAPSULE PO ×3 (08:23→21:30)
[2021-10-07] MEDS: dilTIAZem CD 180 MG CAP PO (08:23)
[2021-10-07] MEDS: POTASSIUM CHLORIDE 10 MEQ TAB PO (08:23)
[2021-10-07] MEDS: PANTOPRAZOLE DR 40 MG TABLET PO (08:23)
[2021-10-07] MEDS: SODIUM CHLORIDE 0.9% FLUSH 10 ML IV ×2 (08:24→21:28)
[2021-10-07] MEDS: ASPIRIN EC 81 MG TABLET PO (08:24)
[2021-10-07] MEDS: ursodioL 300 MG CAPSULE PO (08:25)
[2021-10-07] MEDS: NYSTATIN CREAM 30 GM 1 APPLIC TOP ×2 (08:25→21:31)
--- NOTE | 2021-10-07 08:27 | CM.DPNOTE ---
Faxed referral packet per Bhavna to [facility] and received fax conf. Nathalia Franco CM Asst.
[2021-10-07] MEDS: TORSEMIDE 10 MG TABLET 20 MG PO (08:28)
[2021-10-07] MEDS: INSULIN LISPRO 100 UNIT/ML 3ML VIAL SUBCUT ×3 (08:39→16:55)
[2021-10-07] MEDS: ACETAMINOPHEN 325 MG TABLET 650 MG PO (09:02)
--- NOTE | 2021-10-07 09:39 | PM.PN.EICU ---
Subjective Subjective :: This patient was seen via real time interactive two-way audiovisual telecommunication. Current Medications Current Medications Medications: Home Medications aspirin 81 mg tablet,delayed release 81 mg PO DAILY 04/12/18 [History Confirmed 10/07/21] ursodiol 300 mg capsule 300 mg PO BID 04/12/18 [History Confirmed 10/07/21] gabapentin 300 mg capsule 300 mg PO TID 09/04/18 [History Confirmed 10/07/21] atorvastatin 80 mg tablet 80 mg PO BEDTIME 09/25/18 [History Confirmed 10/07/21] torsemide 20 mg tablet 1 tab PO QAM 09/25/18 [History Confirmed 10/07/21] cetirizine 10 mg tablet (Allergy Relief (cetirizine)) 1 tab PO DAILY 02/13/19 [History Confirmed 10/07/21] ferrous sulfate 325 mg (65 mg iron) tablet 1 tab PO QAM 02/13/19 [History Confirmed 10/07/21] acetaminophen 325 mg tablet 650 mg PO Q6H PRN 08/04/21 [History Confirmed 10/07/21] acetaminophen 500 mg tablet 1,000 mg PO BID 08/04/21 [History Confirmed 10/07/21] albuterol sulfate 90 mcg/actuation aerosol inhaler (Ventolin HFA) 2 puff INHALATION Q4H PRN #0 08/04/21 [History Confirmed 10/07/21] donepezil 10 mg tablet 20 mg PO QAM 08/04/21 [History Confirmed 10/07/21] fluticasone fur. 100 mcg-umeclid 62.5 mcg-vilant 25 mcg inhalat.powder 1 inh INHALATION DAILY 08/04/21 [History Confirmed 10/07/21] insulin glargine 100 unit/mL (3 mL) subcutaneous pen (Lantus Solostar U-100 Insulin) 9 unit SUBCUT BEDTIME 08/04/21 [History Confirmed 10/07/21] loperamide 2 mg tablet 2 mg PO Q24H PRN 08/04/21 [History Confirmed 10/07/21] metoprolol tartrate 25 mg tablet 12.5 mg PO BID 08/04/21 [History Confirmed 10/07/21] nystatin 100,000 unit/gram topical powder 100,000 unit TOPICAL BID 08/04/21 [History Confirmed 10/07/21] ondansetron HCl 4 mg tablet 4 mg PO Q6HR PRN 08/04/21 [History Confirmed 10/07/21] pantoprazole 20 mg tablet,delayed release 20 mg PO DAILY 08/04/21 [History Confirmed 10/07/21] potassium chloride 10 mEq tablet,extended release(part/cryst) (Klor-Con M) 20 meq PO DAILYCC 08/04/21 [History Confirmed 10/07/21] sennosides 8.6 mg tablet (senna) 17.2 mg PO Q12H PRN 08/04/21 [History Confirmed 10/07/21] diltiazem HCl 180 mg capsule,extended release 24 hr 180 mg PO DAILY 09/08/21 [History Confirmed 10/07/21] insulin lispro 100 unit/mL subcutaneous pen (Humalog KwikPen (U-100) Insulin) 1 sliding scale dose SUBCUT BIDAC 09/08/21 [History Confirmed 10/07/21] melatonin 1 mg tablet 1 mg PO BEDTIME PRN 09/08/21 [History Confirmed 10/07/21] polyethylene glycol 3350 17 gram oral powder packet (Miralax) 17 g PO BID PRN 09/08/21 [History Confirmed 10/07/21] vitamin A and D 1 applic TOPICAL BID 09/08/21 [History Confirmed 10/07/21] prednisone 20 mg tablet 20 mg PO DAILY 7 Days #7 tab 09/30/21 [Rx Confirmed 10/07/21] casirivimab 120 mg/mL-imdevimab 120 mg/mL intravenous solution (EUA) (REGEN-COV (EUA)) 10 ml SUBCUT PER PKG DIR 10/07/21 [History Confirmed 10/07/21] diphenhydramine HCl 25 mg capsule (Allergy (diphenhydramine)) 50 mg PO Q6H PRN 10/07/21 [History Confirmed 10/07/21] epinephrine 0.3 mg/0.3 mL injection syringe (Symjepi) See Rx Instructions .ROUTE .COMPLEX 10/07/21 [History Confirmed 10/07/21] prednisone 10 mg tablet 30 mg PO DAILY 10/07/21 [History Confirmed 10/07/21] prednisone 20 mg tablet 40 mg PO DAILY 10/07/21 [History Confirmed 10/07/21] Visit Medications (administered) Generic Name Dose Route Start Last Admin Trade Name Nawaf PRN Reason Stop Dose Admin Acetaminophen 650 mg 10/07/21 00:51 10/07/21 09:02 Acetaminophen 325 Mg Tablet PO 650 mg Q6HR PRN Administration Fever Aspirin 81 mg 10/07/21 09:00 10/07/21 08:24 Aspirin Ec 81 Mg Tablet PO 81 mg DAILY LORNA Administration Diltiazem HCl 180 mg 10/07/21 09:00 10/07/21 08:23 Diltiazem Cd 180 Mg Cap PO 180 mg DAILY LORNA Administration Docusate Sodium 100 mg 10/07/21 09:00 10/07/21 08:23 Docusate 100 Mg Capsule PO 100 mg BID LORNA Administration Fluticasone Propionate 2 spray 10/07/21 09:00 10/07/21 08:22 Fluticasone 120 Paterson/16 Gm Paterson.Susp NASAL 2 spray DAILY LORNA Administration Gabapentin 300 mg 10/07/21 09:00 10/07/21 08:23 Gabapentin 300 Mg Capsule PO 300 mg TID LORNA Administration Insulin Human Lispro 0 unit 10/07/21 07:45 10/07/21 08:39 Insulin Lispro 100 Unit/Ml 3ml Vial SUBCUT 1 unit ACHS LORNA Administration Protocol Metoprolol Succinate 12.5 mg 10/07/21 09:00 10/07/21 08:23 Metoprolol Er 25 Mg Tablet PO 12.5 mg BID LORNA Administration Nystatin 1 applic 10/07/21 09:00 10/07/21 08:25 Nystatin Cream 30 Gm TOP 1 applic BID LORNA Administration Pantoprazole Sodium 40 mg 10/07/21 07:00 10/07/21 08:[address] 40 Mg Tablet PO 40 mg 0700 LORNA Administration Potassium Chloride 10 meq 10/07/21 08:00 10/07/21 08:23 Potassium Chloride 10 Meq Tab PO 10 meq DAILYCC LORNA Administration Sennosides 17.2 mg 10/07/21 09:00 10/07/21 08:23 Sennosides 8.6 Mg Tablet PO 17.2 mg BID LORNA Administration Sodium Chloride 10 ml 10/07/21 09:00 10/07/21 08:24 Sodium Chloride 0.9% Flush IV 10 ml BID LORNA Administration Torsemide 20 mg 10/07/21 09:00 10/07/21 08:28 Torsemide 10 Mg Tablet PO 20 mg DAILY LORNA Administration Ursodiol 300 mg 10/07/21 09:00 10/07/21 08:25 Ursodiol 300 Mg Capsule PO 300 mg BID LORNA Administration Objective Ventilator Parameters: Ventilator Settings FiO2 60 Labs Result Diagrams: 10/06/21 21:15 10/06/21 21:15 Labs: Laboratory Results - last 24 hr 10/06/21 10/06/21 10/06/21 21:00 21:15 21:15 WBC RBC Hgb Hct MCV MCH MCHC RDW Plt Count Neut % (Auto) Lymph % (Auto) [facility] % (Auto) Eos % (Auto) Baso % (Auto) Neut # (Auto) Lymph # (Auto) [facility] # (Auto) Eos # (Auto) Baso # (Auto) D-Dimer 713 H ABG pH 7.41 ABG pCO2 72.4 H* ABG pO2 32 L* ABG HCO3 46 H ABG Total CO2 48 H ABG O2 Saturation 59 L* ABG Base Excess 22.0 H FiO2 21 Sodium Potassium Chloride Carbon Dioxide BUN Creatinine Estimated GFR BUN/Creatinine Ratio Glucose Lactate Calcium Ferritin Total Bilirubin AST ALT Alkaline Phosphatase Lactate Dehydrogenase Total Creatine Kinase CK-MB (CK-2) CK-MB (CK-2) Rel Index Troponin I C-Reactive Protein NT-Pro-B Natriuret Pep Total Protein Albumin Globulin Albumin/Globulin Ratio Procalcitonin 0.06 Nasal Screen MRSA (PCR) 10/06/21 10/06/21 10/06/21 21:15 21:15 21:15 WBC 3.8 L RBC 3.94 L Hgb 11.3 L Hct 36.7 MCV 93.1 MCH 28.7 MCHC 30.9 RDW 16.9 H Plt Count 150 Neut % (Auto) 74.1 Lymph % (Auto) 9.[address] [place] % (Auto) 15.3 H Eos % (Auto) 1.0 L Baso % (Auto) 0.6 Neut # (Auto) 2800 Lymph # (Auto) [address] [place] # (Auto) 600 Eos # (Auto) 0 Baso # (Auto) 0 D-Dimer ABG pH ABG pCO2 ABG pO2 ABG HCO3 ABG Total CO2 ABG O2 Saturation ABG Base Excess FiO2 Sodium 138 Potassium 4.3 Chloride 89 L Carbon Dioxide 47 H* BUN 17 Creatinine 0.66 Estimated GFR > 60.0 BUN/Creatinine Ratio 25.8 H Glucose 170 H Lactate 0.9 Calcium 8.7 Ferritin 44 Total Bilirubin 0.5 AST 20 ALT 14 Alkaline Phosphatase 68 Lactate Dehydrogenase 457 Total Creatine Kinase < 20 L CK-MB (CK-2) TNP CK-MB (CK-2) Rel Index TNP Troponin I < 0.012 C-Reactive Protein 1.7 H NT-Pro-B Natriuret Pep 627 H Total Protein 6.5 Albumin 3.5 Globulin 3.0 Albumin/Globulin Ratio 1.2 Procalcitonin Nasal Screen MRSA (PCR) 10/07/21 00:30 WBC RBC Hgb Hct MCV MCH MCHC RDW Plt Count Neut % (Auto) Lymph % (Auto) [facility] % (Auto) Eos % (Auto) Baso % (Auto) Neut # (Auto) Lymph # (Auto) [facility] # (Auto) Eos # (Auto) Baso # (Auto) D-Dimer ABG pH ABG pCO2 ABG pO2 ABG HCO3 ABG Total CO2 ABG O2 Saturation ABG Base Excess FiO2 Sodium Potassium Chloride Carbon Dioxide BUN Creatinine Estimated GFR BUN/Creatinine Ratio Glucose Lactate Calcium Ferritin Total Bilirubin AST ALT Alkaline Phosphatase Lactate Dehydrogenase Total Creatine Kinase CK-MB (CK-2) CK-MB (CK-2) Rel Index Troponin I C-Reactive Protein NT-Pro-B Natriuret Pep Total Protein Albumin Globulin Albumin/Globulin Ratio Procalcitonin Nasal Screen MRSA (PCR) Negative for mrsa Exam Vital Signs (past 8 hours): - 10/07/21 01:51 10/07/21 02:00 10/07/21 02:30 Temperature 100.8 F H 100.6 F H 100.0 F H Pulse Rate 91 H 84 86 Respiratory Rate 26 H 23 26 H Blood Pressure 110/57 L 112/58 L 130/70 Pulse Oximetry 94 90 L 90 L 10/07/21 03:00 10/07/21 03:30 10/07/21 04:00 Temperature 99.5 F 99.3 F 99.1 F Pulse Rate 86 86 85 Respiratory Rate 18 22 23 Blood Pressure 140/70 111/60 Pulse Oximetry 94 89 L 90 L 10/07/21 04:30 10/07/21 05:00 10/07/21 05:30 Temperature 99.1 F 99.0 F 99.0 F Pulse Rate 82 79 78 Respiratory Rate 24 23 24 Blood Pressure 112/69 Pulse Oximetry 92 91 90 L 10/07/21 05:48 10/07/21 06:00 10/07/21 06:01 Temperature 99.0 F 99.0 F Pulse Rate 80 75 78 Respiratory Rate 18 20 17 Blood Pressure 112/68 120/60 Pulse Oximetry 95 96 96 10/07/21 06:30 10/07/21 07:00 10/07/21 08:00 Temperature 99.1 F 99.1 F 99.1 F Pulse Rate 68 70 72 Respiratory Rate 22 23 16 Blood Pressure 122/66 128/77 Pulse Oximetry 95 95 97 10/07/21 09:02 Temperature 99.1 F Pulse Rate Respiratory Rate Blood Pressure Pulse Oximetry Fraction of Inspired Oxygen 60 Oxygen Delivery Method High Flow Nasal Cannula Oxygen Flow Rate 45 Quality TeleICU VTE Deep Vein Thrombosis/Pulmonary Embolism Present on Admission: No Assessment & Plan Assessment & Plan narrative: patient seen and examined with bedside provider and nursing chart/labs/imaging reviewed pt in NAD comfortable sitting up in bed morbidly obese afebrile, HD stable Acute on chronic respiratory failure 2/2 to covid pna chronic copd -continue with remdesvir/baricitinib/dexamaethasone -nebs -wean high flow as tolerated, pt is on 3lN at baseline -bipap prn or for sleep if needed -goal sat 88-92% max, avoid over oxygenation -dvt ppx with lovenox bid -optimize glucose control, keeep 140-180s -gi/dvt ppx -address goals of care and severity of illness daily discussed on MDR Time Spent With Patient Critical Care time: I spent a total of [] minutes of critical care time on this patient's care today; this time is exclusive of procedural time.
[2021-10-07] MEDS: ALBUTEROL/IPRATROPIUM 3 ML AMPUL INH ×2 (09:44→12:08)
--- NOTE | 2021-10-07 11:03 | DIET.CONS ---
Addendum entered by Roxy Kumar 10/07/21 16:04: Spoke to Alem on the phone. Denies any changes to PO prior to admission. Reports all I do is eat. States her swelling is about the same. Thinks she has actually gained weight recently. Does not like ensure or any protein drink. States she will not drink it if sent. Will d/c ensure max order. Original Note: Dietary Consultation Note Admission Date: 10/07/2021 00:27 Assessment: 70 y/o F admitted to hospital for acute respiratory failure. Found to be COVID+. Consulted for morbid obesity. Some significant weight changes over the last month. Difficult to determine if this is from malnutrition or fluid changes. Per notes, h/o LE edema. Last admission noted swelling of LE not new for her. Ht: 167.64 cm Wt: 145.15 kg BMI: 51.6 09/30/21 166.8kg 09/14/21: 165.1kg 09/08/21: 156kg 08/04/21: 154.5kg 03/12/21: 140.3kg 01/21/21: 131kg Last BM: () MNA: Demetrius Score: 13 Diet: 10/07/21 Breakfast Carbohydrate Consistent Diet Diet Modifications: Carbohydrate level: Medium (3 CHO) Nutrition Percent Meal Consumed 50% 10/07/21 09:38 Labs: RBC 3.94 X10^6/uL (4.0-5.2) L 10/06/21 21:15 Hgb 11.3 g/dL (12.0-16.0) L 10/06/21 21:15 Hct 36.7 % (36-46) 10/06/21 21:15 Creatinine 0.66 mg/dL (0.52-1.04) 10/06/21 21:15 Lactate 0.9 mmol/L (0.7-2.1) 10/06/21 21:15 Ferritin 44 ng/mL (11-264) 10/06/21 21:15 NT-Pro-B Natriuret Pep 627 pg/mL (<125) H 10/06/21 21:15 Nutrition Diagnosis: Predicted inadequate protein intake r/t increased nutrient needs aeb covid + status and 50% PO Interventions: Send Ensure Max ONS daily Monitoring/Evaluations: PO, ONS tolerance, weight Electronically Signed by: Roxy Kumar 10/07/21 11:03 Clinical Dietitian [address] [id number]
--- NOTE | 2021-10-07 12:13 | CM.DANOTE ---
DCP: Case received, EMR reviewed. Patient is familiar to this environmental emergencies planner from recent admission. Patient resides at [facility]. Was able to obtain information regarding patient's baseline activity status and living situation from chart and recent visit. DCP assessment completed with information currently available. Patient is a 70 year old female who admitted early this morning to the care of the hospitalist team. PCP: Dr. Saini. Payer: confirmed: [facility] MCR/Medicaid. Patient came to the hospital via ambulance secondary to having low oxygen levels, and increase shortness of breath. Patient holds current diagnosis of COVID/Pneumonia. Patient was here recently for hypoxia. She has a CPAP, that she is at times non-compliant with. Unable to meet with patient due to her COVID. She is currently on high flow oxygen. At patient's baseline, she is in her wheel-chair and resides at [facility] here [facility]. She has oxygen at the facility. As a back up, did send referral over to [facility] in [place], if facility is unable to accept patient back. Patient is now a full code, and wishes to be intubated if needed. P: DCP to continue to follow. Patient should be able to go back to [facility] when stable, but did sent referral over to [facility] as a back up plan, since they do take COVID positive patients. Iman Allen RN/Customer Business Manager Discharge Planning/Care Management CM Discharge Assessment Start: 10/07/21 12:10 Freq: Status: Active Protocol: Document 10/07/21 12:11 (Rec: 10/07/21 12:13 [id number]) Discharge Planning Assessment Assigned Formula Clerk Iman Allen RN/Customer Business Manager Advance Directives? Yes Advance Directives on File No History Provided By Patient,Medical Record Prior Living Arrangements Assisted Living Household Members family,none,children Type of transporation used prior to Relies on Others admit Facility Name Admitted From: [facility] Willing to Return to Facility? Yes Independent with ADL's Yes Is patient alert and oriented? Yes Needs Assistance With Meal Prep,Toileting,Managing Medications,Home Chores / Shopping Caregiver for Another No Community Services used prior to Oxygen Therapy admission: DME Already Rented / Owned Wheelchair Patient/Family Preference Half-Way Facility,Home with Home Health Comment Getting patient accepted back to [place] with COVID Discharge Plan Home Transportation Arrangement [facility] Referrals Initiated Half-Way Additional Comment Sent referral over to [facility] as back up since patient has COVID. Whiteboard Updated in Patient Room with No name and ext. # of Formula Clerk Comment Patient is positive COVID. Review Status In Process Next Review Type Continued Stay Review
[2021-10-07] MEDS: ENOXAPARIN 40 MG/0.4 ML SYRINGE SUBCUT (12:51)
--- NOTE | 2021-10-07 13:15 | PC.NURSE ---
Addendum entered by Chucho Pretty R.N. 10/07/21 14:13: Weaned O2 to 5LPM via HFNC. SPO2 90-93%. Pt denies shortness of breath. Reports breathing being at baseline. She is hopeful to go home soon. Reviewed plan of care, O2 sat goals. Provided pt with I.S. and encouraged use. Pt is able to get up to 1000 ML with cues. Original Note: Pt reported discomfort with with HHFNC and is having a hard time keeping it positioned in nares. Replaced HHFNC with HFNC. Pt reports improved comfort. Placed on 8LPM with SPO2 94-95%.
--- NOTE | 2021-10-07 15:56 | CM.DPC ---
DCP Cont: Left a message with Patti, admissions at [facility]. In the original message, let her know that patient would be ready to go back tomorrow. Now, patient is on 3 liters, and would like to go back this pm if possible. Left Patti another message about patient returning to [facility] this pm. P: DCP to continue to follow. Plan is for patient to return to [facility]. Have a message out to Patti in administration. Iman Allen RN/Boarding Kennel Or Cattery Operator
[2021-10-07] MEDS: DONEPEZIL 5 MG TABLET 20 MG PO (21:27)
[2021-10-07] MEDS: REMDESIVIR 100 MG in SODIUM CHLORIDE 0.9% 230 ML 250 ML IV (21:28)
[2021-10-07] MEDS: INSULIN GLARGINE 100 UNIT/ML 3ML PEN 9 UNIT SUBCUT ×2 (21:29→22:00)
[2021-10-07] MEDS: ATORVASTATIN 20 MG TABLET 80 MG PO (21:30)
[2021-10-07] MEDS: MELATONIN 3 MG TABLET PO (21:31)
[2021-10-07] MEDS: DEXAMETHASONE 10 MG/ML VIAL 6 MG IV (22:00)
[2021-10-08] VITALS (7 sets, daily range): BP systolic 108–134; BP diastolic 58–74; PULSE 50–75; RESP 16–22; TEMP 35.6–36.7; O2SAT 89–95
[2021-10-08] MEDS: ursodioL 300 MG CAPSULE PO ×3 (00:24→10:14)
[2021-10-08] MEDS: ENOXAPARIN 40 MG/0.4 ML SYRINGE SUBCUT ×2 (00:38→11:02)
[2021-10-08 05:13] LABS: Add Manual Diff / Slide Review NO; Basophils Absolute Auto 0 /uL (0-100); Basophils Percent Auto 0.3 % (0-2); Eosinophils Absolute Auto 0 /uL (0-450); Eosinophils Percent Auto 0.1 % (2-4); Hematocrit 37.4 % (36-46); Hemoglobin 11.5 g/dL (12.0-16.0); Lymphocytes Absolute Auto 300 /uL (1100-4500); Lymphocytes Percent Auto 15.3 % (25-40); Mean Corpuscular HGB Conc 30.9 % (30-36); Mean Corpuscular Hemoglobin 28.9 PG (26-34); Mean Corpuscular Volume 93.5 fL (80-100); Monocytes Absolute Auto 100 /uL (0-900); Monocytes Percent Auto 4.5 % (3-14); Neutrophils Absolute Auto 1700 /uL (1500-7000); Neutrophils Percent Auto 79.8 % (50-75); Platelet Count 151 X10^3/uL (150-400); Red Cell Distribution Width 16.9 % (11.6-14.8); White Blood Cell Count 2.2 X10^3/uL (4.5-11.0)
[2021-10-08 05:18] LABS: Alanine Aminotransferase 16 IU/L (<35); Albumin 3.3 g/dL (3.5-5.0); Albumin Globulin Ratio 1.1 (1.0-2.8); Alkaline Phosphatase 56 U/L (38-126); Aspartate Aminotransferase 22 IU/L (14-36); BUN Creatinine Ratio 35.9 (6-22); Bilirubin Total 0.3 mg/dL (0.2-1.3); Blood Urea Nitrogen 23 mg/dL (7-17); Calcium 8.4 mg/dL (8.4-10.2); Chloride 89 mmol/L (98-107); Estimated Glomerular Filt Rate > 60.0 mL/min (>60); Globulin 2.9 g/dL (1.7-4.1); Glucose 266 mg/dL (80-110); HEMOLYSIS < 15 (0-50); Potassium 4.5 mmol/L (3.4-5.1); Sodium 138 mmol/L (137-145); Total Protein 6.2 g/dL (6.3-8.2)
[2021-10-08 05:27] LABS: NT-proBNP (BNP-Adult 18+) 390 pg/mL (<125)
[2021-10-08 05:31] LABS: Carbon Dioxide 45 mmol/L (22-32)
[2021-10-08] MEDS: PANTOPRAZOLE DR 40 MG TABLET PO (06:16)
[2021-10-08] MEDS: ACETAMINOPHEN 325 MG TABLET 650 MG PO (06:32)
--- NOTE | 2021-10-08 07:20 | CM.MNRNOTE ---
Addendum entered by Domonique Ritchie R.N. 10/08/21 07:27: Please note that previous note is a nursing note. It is not CM Medical Necessity. Original Note: Patient states the overall she feels much better. Mediated for a headache 4-04/04. Patient incontinent of urine in large amounts. Zoë Bed used to turn patient from side to side throughout the night. No SOB noted with turning. Lungs diminished posteriorly with ffefw expiratory wheezes. O2 at 3L with sats 89-93%. Pt states that she is anxious to go to her facility today.
--- NOTE | 2021-10-08 07:33 | P.DS_ITS ---
History of Present Illness History of Present Illness Date Patient Seen: 10/08/21 Time Patient Seen: 07:33 Chief complaint: COVID + low O2 Narrative: Per Dr. Sanchez, The patient is a 70-year-old female with a history of COPD, chronic hypoxic hypercapnic respiratory failure, atrial fibrillation not on anticoagulation, type 2 diabetes, hypertension, hyperlipidemia, iron deficiency anemia, morbid obesity, who tested positive for COVID recently.? She was brought in by EMS for evaluation of worsening respiratory failure.? Patient has had increasing shortness of breath and cough.? Oxygen saturation has been 50-60%.? She has been hospitalized at [facility] in July and early September.? The patient was discharged from the emergency department September 30 with a referral to hospice and was DNR.? However after discussion with her DPOA, her physician, the patient is now full code per her revised Polst form.? The patient was seen on September 30 for shortness of breath.? She was treated for an exacerbation of COPD.? She was COVID negative at that time and discharged home.? History was obtained from the emergency room notes and prior medical notes here.? The patient is lethargic, sleepy, she does arouse however is unable and/or unwilling to give any additional history.? In the emergency room her white count was 3.8 hemoglobin 11.3 hematocrit 36.7, D-dimer elevated at 713, patient had an ABG which showed a pH is 7.41, pCO2 of 72.4, PO2 of 32, saturation 59%, on room air.? The patient was placed on 4 L of oxygen, because of ongoing hypoxia she was increased to high-flow oxygen at 45%.? Her sodium was 138 potassium 4.3 chloride 89 BUN 17 creatinine 0.66 her C reactive protein is elevated at 1.7 proBNP is 627 her procalcitonin is 0.06 [id number] is positive.? Chest x-ray in the emergency room reveals no definite change from her last x-ray on September 30.? She has no focal consolidations.? However she does have widespread ill-defined ground-glass opacities.? The patient is admitted to the hospital for acute hypoxic respiratory failure secondary to COVID pneumonia and COPD. 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 Scientist services Has provider been notified: Yes 10/07/21 01:53 Consult to Dietitian, Adult Routine Comment: Reason For Exam: morbid obesity Discharge provider: Arik Macias DO Summary Hospital Course Discharge Diagnosis: Acute on chronic hypoxemic respiratory failure with chronic hypercarpnic respiratory failure, acute portion now resolved COVID 19 pneumonia COPD, chronic without acute exacerbation Obesity, with obesity hypoventilation Essential hypertension Paroxysmal atrial fibrillation Type 2 diabetes Hyperlipidemia GERD Alzheimer's dementia Acute metabolic encephalopathy Hospital Course: This is a 70-year-old female with a past medical history of chronic hypercapnic and hypoxemic respiratory failure, obesity hypoventilation syndrome, COPD, diabetes, chronic pain with opioid medications, atrial fibrillation, and mild dementia who was sent to the emergency room for hypoxia noted at her assisted living facility, [facility].? She also had a recent diagnosis of COVID-19 and had received outpatient antibody the day prior. She was initially placed on heated high-flow in the emergency room for severe hypoxia. Her blood gas did not show an acidosis in her pCO2 was actually consistent with her usual baseline which is in the 70s. She was started on steroids, remde sivir, and baricitinib for probable COVID pneumonia with acute on chronic respiratory failure with hypoxia. Shortly after admission to the ICU, the patient improved much more quickly than expected and was rapidly titrated down on her oxygen, and by the early afternoon she was on her usual 3-4 L of home oxygen. She remained stable overnight, with no additional requirements, and is stable for return back to her assisted living facility. This raises the possibility of a possible reaction to outpatient antibodies, though this is probably less likely. No medication changes are recommended at this time. Recommend limiting oxygen at home, with using as little as possible to maintain an oxygen saturation between 89 and 96% while on supplemental therapy to avoid hypercarbia. Time Spent with Patient Time spent: Greater than 30 minutes Exam Vital Signs (past 8 hours): - 10/08/21 00:45 10/08/21 00:54 10/08/21 06:00 Pulse Rate 61 61 75 Respiratory Rate 16 16 Blood Pressure 117/58 L 134/74 Pulse Oximetry 89 L 93 Fraction of Inspired Oxygen 40 Oxygen Delivery Method Nasal Cannula Oxygen Flow Rate 3 Narrative Exam Narrative: GENERAL APPEARANCE:? Obese female, no acute distress SKIN: Inspection of the skin reveals no rashes, ulcerations or petechiae. HEENT:? Normocephalic atraumatic, extraocular muscles are intact, oropharynx is clear and mucous membranes are moist, neck is supple without adenopathy LUNGS: Auscultation of the lungs revealed no wheezes, rhonchi, or rales. CARDIOVASCULAR: There was a regular rate and rhythm without any murmurs, gallops, rubs. Peripheral pulses were 2+ and symmetric. ABDOMEN:? Soft, nontender, and nondistended MUSCULOSKELETAL: There was no tenderness or effusions noted. EXTREMITIES: No cyanosis, clubbing.? There is trace bilateral lower extremity edema. NEUROLOGIC: awake and alert, pleasant. no focal deficits Objective Labs Result Diagrams: 10/08/21 04:48 10/08/21 04:48 Labs: Laboratory Results - last 24 hr 10/08/21 10/08/21 04:48 04:48 WBC 2.2 L RBC 4.00 Hgb 11.5 L Hct 37.4 MCV 93.5 MCH 28.9 MCHC 30.9 RDW 16.9 H Plt Count 151 Neut % (Auto) 79.8 H Lymph % (Auto) 15.3 L [place] % (Auto) 4.5 Eos % (Auto) 0.1 L Baso % (Auto) 0.3 Neut # (Auto) 1700 Lymph # (Auto) 300 L [place] # (Auto) 100 Eos # (Auto) 0 Baso # (Auto) 0 Sodium 138 Potassium 4.5 Chloride 89 L Carbon Dioxide 45 H* BUN 23 H Creatinine 0.64 Estimated GFR > 60.0 BUN/Creatinine Ratio 35.9 H Glucose 266 H Calcium 8.4 Total Bilirubin 0.3 AST 22 ALT 16 Alkaline Phosphatase 56 NT-Pro-B Natriuret Pep 390 H Total Protein 6.2 L Albumin 3.3 L Globulin 2.9 Albumin/Globulin Ratio 1.1 PFSH Medical History Atrial fibrillation Cholelithiasis Chronic respiratory failure with hypoxia and hypercapnia Depression Diabetes Fracture of left ankle Hyperlipidemia Hypertension Inguinal hernia Iron deficiency anemia Lumbar degenerative disc disease Morbid obesity Obesity hypoventilation syndrome Osteoarthritis Paroxysmal atrial fibrillation Pneumococcal meningitis Prolapsed bladder Surgical History History of abdominoplasty History of gastric bypass Family History Mother Heart disease Father No problems noted. Social History household members: family, children and none Smoking Status: Former smoker alcohol intake: former additional social history: lives alone Discharge Plan Discharge Plan Patient Disposition: Assisted Living Transfer to: [facility] Provider Discharge Comment: This is a 70-year-old female with a past medical history of chronic hypercapnic and hypoxemic respiratory failure, obesity hypoventilation syndrome, COPD, diabetes, chronic pain with opioid medications, atrial fibrillation, and mild dementia who was sent to the emergency room for hypoxia noted at her assisted living facility, [facility].? She also had a recent diagnosis of COVID-19 and had received outpatient antibody the day prior. She was initially placed on heated high-flow in the emergency room for severe hypoxia. Her blood gas did not show an acidosis in her pCO2 was actually consistent with her usual baseline which is in the 70s. She was started on steroids, remdesivir, and baricitinib for probable COVID pneumonia with acute on chronic respiratory failure with hypoxia. Shortly after admission to the ICU, the patient improved much more quickly than expected and was rapidly titrated down on her oxygen, and by the early afternoon she was on her usual 3-4 L of alexandra e oxygen. She remained stable overnight, with no additional requirements, and is stable for return back to her assisted living facility. This raises the possibility of a possible reaction to outpatient antibodies, though this is probably less likely. No medication changes are recommended at this time. Recommend limiting oxygen at home, with using as little as possible to maintain an oxygen saturation between 89 and 96% while on supplemental therapy to avoid hypercarbia. Discharge orders & Medications Discharge Orders: Discharge (Order); Ordered 10/08/21 Ordered By: Arik Macias Prescriptions: Continued ursodiol 300 mg capsule 300 mg PO BID RF: 0 aspirin 81 mg Tablet,Delayed Release (Dr/Ec) 81 mg PO DAILY RF: 0 cetirizine [Allergy Relief (cetirizine)] 10 mg Tablet 1 tab PO DAILY RF: 0 ferrous sulfate 325 mg (65 mg iron) Tablet 1 tab PO QAM RF: 0 ondansetron HCl 4 mg tablet 4 mg PO Q6HR PRN (Reason: Nausea) RF: 0 albuterol sulfate [Ventolin HFA] 90 mcg/actuation Hfa Aerosol Inhaler 2 puff INHALATION Q4H PRN (Reason: Wheezing) Qty: 0 RF: 0 metoprolol tartrate 25 mg tablet 12.5 mg PO BID RF: 0 Lantus Solostar U-100 Insulin 100 unit/mL (3 mL) insulin pen 9 unit SUBCUT BEDTIME RF: 0 donepezil 10 mg tablet 20 mg PO QAM RF: 0 nystatin 100,000 unit/gram powder 100,000 unit TOPICAL BID RF: 0 sennosides [senna] 8.6 mg tablet 17.2 mg PO Q12H PRN (Reason: Constipation) RF: 0 potassium chloride [Klor-Con M10] 10 mEq tablet,ER particles/crystals 20 meq PO DAILYCC RF: 0 acetaminophen 325 mg Tablet 650 mg PO Q6H PRN (Reason: PAIN) RF: 0 loperamide 2 mg Tablet 2 mg PO Q24H PRN (Reason: LOOSE STOOLS) RF: 0 acetaminophen 500 mg Tablet 1,000 mg PO BID RF: 0 pantoprazole 20 mg Tablet,Delayed Release (Dr/Ec) 20 mg PO DAILY RF: 0 xngexenclmg-qydeighff-jmnblafe 100-62.5-25 mcg Blister With Device 1 inh INHALATION DAILY RF: 0 prednisone 20 mg tablet 20 mg PO DAILY 7 Days Qty: 7 RF: 0 gabapentin 300 mg Capsule 300 mg PO TID RF: 0 atorvastatin 80 mg tablet 80 mg PO BEDTIME RF: 0 torsemide 20 mg tablet 1 tab PO QAM RF: 0 polyethylene glycol 3350 [Miralax] 17 gram Powder In Packet 17 g PO BID PRN (Reason: Constipation) RF: 0 diltiazem HCl 180 mg capsule,extended release 24hr 180 mg PO DAILY RF: 0 vitamin A and D Ointment 1 applic TOPICAL BID RF: 0 insulin lispro [Humalog KwikPen Insulin] 100 unit/mL Insulin Pen 1 sliding scale dose SUBCUT BIDAC RF: 0 melatonin 1 mg Tablet 1 mg PO BEDTIME PRN (Reason: Insomnia) RF: 0 prednisone 10 mg Tablet 30 mg PO DAILY RF: 0 prednisone 20 mg Tablet 40 mg PO DAILY RF: 0 diphenhydramine HCl [Allergy (diphenhydramine)] 25 mg Capsule 50 mg PO Q6H PRN (Reason: Allergic Reaction) RF: 0 Symjepi 0.3 mg/0.3 mL Syringe See Rx Instructions .ROUTE .COMPLEX RF: 0 REGEN-COV (EUA) 120 mg/mL- 120 mg/mL Solution 10 ml SUBCUT PER PKG DIR RF: 0 Follow up/Referrals: Johnny Saini MD [Primary Care Provider] - Discharge Health Status Precautions: Contact and Droplet Diet/Activity/Treatments Diet: Diet as Tolerated and Carb-consistent/Diabetic Activity: As tolerated Oxygen: Limit supplemental O2 as noted above. Discharge Data Primary Care Provider: Johnny Saini Quality VTE Deep Vein Thrombosis/Pulmonary Embolism Present on Admission: No
[2021-10-08] MEDS: DOCUSATE 100 MG CAPSULE PO (08:22)
[2021-10-08] MEDS: SENNOSIDES 8.6 MG TABLET 17.2 MG PO (08:22)
[2021-10-08] MEDS: METOPROLOL ER 25 MG TABLET 12.5 MG PO (08:22)
[2021-10-08] MEDS: dilTIAZem CD 180 MG CAP PO (08:22)
[2021-10-08] MEDS: GABAPENTIN 300 MG CAPSULE PO (08:22)
[2021-10-08] MEDS: ASPIRIN EC 81 MG TABLET PO (08:22)
[2021-10-08] MEDS: POTASSIUM CHLORIDE 10 MEQ TAB PO (08:23)
[2021-10-08] MEDS: BARICITINIB 2 MG TABLET 4 MG PO (08:23)
[2021-10-08] MEDS: INSULIN LISPRO 100 UNIT/ML 3ML VIAL SUBCUT ×2 (08:39→12:00)
[2021-10-08] MEDS: NYSTATIN CREAM 30 GM 1 APPLIC TOP (08:49)
[2021-10-08] MEDS: SODIUM CHLORIDE 0.9% FLUSH 10 ML IV (08:49)
[2021-10-08] MEDS: TORSEMIDE 10 MG TABLET 20 MG PO (10:14)
--- NOTE | 2021-10-08 13:57 | PC.NURSE ---
Addendum entered by Natasha Cantu R.N. 10/08/21 16:12: [facility] here to transport pt to [facility]. Original Note: pt dc'd and report given to Zachery PAVON at [facility]. pt A&O; incontinent of urine, large quantities. Blood sugars covered with insulin sliding scale.
--- NOTE | 2021-10-08 14:26 | CM.DPC ---
DCP continued: CM spoke with Nurse at [facility] and they can take the patient back today. CM called and set up BLS transport back to [place] for [address]pm. Dr Macias signed S transport form and CM placed it in the Red folder for when transport comes and a copy in green folder for Nathalia HURST to scan into patients [facility]. Patients RN notified of DC plan. Patient updated and patients nurse given the nurse report number to call. Carlota Vasquez RNoil pumper.
== END 2021-10-08 16:11 | DRG 177 ==
LOC: ED 20:42 → ICU 10-07 00:29
PROVIDERS: Admitting Provider Internal Medicine; Emergency Provider Emergency Medicine; PCP Internal Medicine; Referring Provider Emergency Medicine; Visit Provider Internal Medicine
DX: U07.1 COVID-19 (principal); J12.82 Pneumonia due to coronavirus disease 2019; J96.21 Acute and chronic respiratory failure with hypoxia; G93.41 Metabolic encephalopathy; J96.12 Chronic respiratory failure with hypercapnia; E66.2 Morbid (severe) obesity with alveolar hypoventilation; Z68.43 Body mass index [BMI] 50.0-59.9, adult; I48.20 Chronic atrial fibrillation, unspecified; J44.9 Chronic obstructive pulmonary disease, unspecified; G30.9 Alzheimer's disease, unspecified; F02.80 Dementia in other diseases classified elsewhere, unspecified severity, without behavioral disturbance, psychotic disturbance, mood disturbance, and anxiety; I10 Essential (primary) hypertension; E11.9 Type 2 diabetes mellitus without complications; E78.5 Hyperlipidemia, unspecified; K21.9 Gastro-esophageal reflux disease without esophagitis; D50.9 Iron deficiency anemia, unspecified; G89.29 Other chronic pain; Z79.4 Long term (current) use of insulin; Z87.891 Personal history of nicotine dependence
CPT/HCPCS: 36415; 36600; 71045; 80053; 82550; 82728; 82805; 82962; 83605; 83615; 83880; 84145; 84484; 85025; 85379; 86140; 87040; 87797; 94640; 94760; 96365; 96375; 99284; 99285; 99291; 99292; U0003; J1100; J1650; J1815; J1885

== ENCOUNTER → 2021-10-18 08:13 | Outpatient (ROUT) | payer MEDICARE, MEDICAID, SELFPAY ==
[2021-09-30 11:05] VITALS: PULSE 76; RESP 23; O2SAT 94
[2021-10-07 01:51] VITALS: BMI 51.6
[2021-10-18 09:27] LABS: Add Manual Diff / Slide Review NO; Basophils Absolute Auto 100 /uL (0-100); Basophils Percent Auto 0.8 % (0-2); Eosinophils Absolute Auto 100 /uL (0-450); Eosinophils Percent Auto 1.7 % (2-4); Hematocrit 37.1 % (36-46); Hemoglobin 11.4 g/dL (12.0-16.0); Lymphocytes Absolute Auto 1200 /uL (1100-4500); Lymphocytes Percent Auto 16.4 % (25-40); Mean Corpuscular HGB Conc 30.8 % (30-36); Mean Corpuscular Hemoglobin 28.5 PG (26-34); Mean Corpuscular Volume 92.5 fL (80-100); Monocytes Absolute Auto 600 /uL (0-900); Monocytes Percent Auto 8.7 % (3-14); Neutrophils Absolute Auto 5300 /uL (1500-7000); Neutrophils Percent Auto 72.4 % (50-75); Platelet Count 261 X10^3/uL (150-400); Red Blood Cell Count 4.01 X10^6/uL (4.0-5.2); Red Cell Distribution Width 16.9 % (11.6-14.8); White Blood Cell Count 7.3 X10^3/uL (4.5-11.0)
[2021-10-18 09:34] LABS: BUN Creatinine Ratio 36.5 (6-22); Blood Urea Nitrogen 23 mg/dL (7-17); Calcium 8.6 mg/dL (8.4-10.2); Carbon Dioxide 39 mmol/L (22-32); Chloride 96 mmol/L (98-107); Estimated Glomerular Filt Rate > 60.0 mL/min (>60); Glucose 116 mg/dL (80-110); HEMOLYSIS < 15 (0-50); Potassium 4.3 mmol/L (3.4-5.1); Sodium 139 mmol/L (137-145)
== END ==
PROVIDERS: PCP Internal Medicine; Visit Provider Nurse Practitioner Family
DX: D72.819 Decreased white blood cell count, unspecified (principal); J96.12 Chronic respiratory failure with hypercapnia
CPT/HCPCS: 36415; 80048; 85025

== ENCOUNTER 2021-10-31 18:49 | Inpatient (IN) | payer MEDICARE, MEDICAID, SELFPAY ==
[2021-09-30 11:05] VITALS: PULSE 76; RESP 23; O2SAT 94
[2021-10-07 01:51] VITALS: BMI 51.6
[2021-10-31] VITALS (34 sets, daily range): BP systolic 116–144; BP diastolic 67–76; PULSE 61–92; RESP 12–30; TEMP 31–36.7; O2SAT 88–95
--- NOTE | 2021-10-31 19:06 | DI.RAD.S_ITS ---
PROCEDURE: XR CHEST 1V INDICATIONS: dyspnea TECHNIQUE: One view of the chest was acquired. COMPARISON: [facility], , XR CHEST 1V, 10/06/2021, 20:45. FINDINGS: Surgical changes and devices: None. Lungs and pleura: Diffuse ground-glass opacities are similar to the prior x-ray on 10/06/2021 no pneumothorax. No focal consolidation. Mediastinum: Mediastinal contours appear normal. Heart size is enlarged . Bones and chest wall: No suspicious bony lesions. Overlying soft tissues appear unremarkable. IMPRESSION: 1. Stable cardiomegaly. 2. Diffuse ground-glass opacities consistent chronic changes Dictated by: Tavo Aguilera M.D. on 10/31/2021 at 20:25 Approved by: Tavo Aguilera M.D. on 10/31/2021 at 20:26
[2021-10-31] MEDS: ALBUTEROL/IPRATROPIUM 3 ML AMPUL INH (19:46)
--- NOTE | 2021-10-31 19:51 | ED.SOB ---
HPI - SOB/Dyspnea General Chief Complaint: Shortness of Breath/Dyspnea Stated Complaint: hypoxic event earlier today, better now Time Seen by Provider: 10/31/21 19:05 Source: EMS Mode of arrival: EMS Limitations: altered mental status and physical limitation History of Present Illness HPI Narrative: ?70-year-old female with a history of COPD, chronic hypoxic hypercapnic respiratory failure, atrial fibrillation not on anticoagulation, type 2 diabetes, hypertension, hyperlipidemia, iron deficiency anemia, morbid obesity, who tested positive for COVID recently. She returns to the emergency department by [facility] due to increasing episodes of hypoxemia despite increased levels of oxygen by nasal cannula. Related Data Home Medications Medication Instructions Recorded Confirmed aspirin 81 mg tablet,delayed 81 mg PO DAILY 04/12/18 10/07/21 release ursodiol 300 mg capsule 300 mg PO BID 04/12/18 10/07/21 gabapentin 300 mg capsule 300 mg PO TID 09/04/18 10/07/21 atorvastatin 80 mg tablet 80 mg PO BEDTIME 09/25/18 10/07/21 torsemide 20 mg tablet 1 tab PO QAM 09/25/18 10/07/21 cetirizine 10 mg tablet (Allergy 1 tab PO DAILY 02/13/19 10/07/21 Relief (cetirizine)) ferrous sulfate 325 mg (65 mg 1 tab PO QAM 02/13/19 10/07/21 iron) tablet acetaminophen 325 mg tablet 650 mg PO Q6H PRN 08/04/21 10/07/21 acetaminophen 500 mg tablet 1,000 mg PO BID 08/04/21 10/07/21 albuterol sulfate 90 mcg/actuation 2 puff INHALATION Q4H PRN #0 08/04/21 10/07/21 aerosol inhaler (Ventolin HFA) donepezil 10 mg tablet 20 mg PO QAM 08/04/21 10/07/21 fluticasone fur. 100 mcg-umeclid 1 inh INHALATION DAILY 08/04/21 10/07/21 62.5 mcg-vilant 25 mcg inhalat.powder insulin glargine 100 unit/mL (3 9 unit SUBCUT BEDTIME 08/04/21 10/07/21 mL) subcutaneous pen (Lantus Solostar U-100 Insulin) loperamide 2 mg tablet 2 mg PO Q24H PRN 08/04/21 10/07/21 metoprolol tartrate 25 mg tablet 12.5 mg PO BID 08/04/21 10/07/21 nystatin 100,000 unit/gram topical 100,000 unit TOPICAL BID 08/04/21 10/07/21 powder ondansetron HCl 4 mg tablet 4 mg PO Q6HR PRN 08/04/21 10/07/21 pantoprazole 20 mg tablet,delayed 20 mg PO DAILY 08/04/21 10/07/21 release potassium chloride 10 mEq 20 meq PO DAILYCC 08/04/21 10/07/21 tablet,extended release(part/cryst) (Klor-Con M) sennosides 8.6 mg tablet (senna) 17.2 mg PO Q12H PRN 08/04/21 10/07/21 diltiazem HCl 180 mg 180 mg PO DAILY 09/08/21 10/07/21 capsule,extended release 24 hr insulin lispro 100 unit/mL 1 sliding scale dose SUBCUT BIDAC 09/08/21 10/07/21 subcutaneous pen (Humalog KwikPen (U-100) Insulin) melatonin 1 mg tablet 1 mg PO BEDTIME PRN 09/08/21 10/07/21 polyethylene glycol 3350 17 gram 17 g PO BID PRN 09/08/21 10/07/21 oral powder packet (Miralax) vitamin A and D 1 applic TOPICAL BID 09/08/21 10/07/21 casirivimab 120 mg/mL-imdevimab 10 ml SUBCUT PER PKG DIR 10/07/21 10/07/21 120 mg/mL intravenous solution (EUA) (REGEN-COV (EUA)) diphenhydramine HCl 25 mg capsule 50 mg PO Q6H PRN 10/07/21 10/07/21 (Allergy (diphenhydramine)) epinephrine 0.3 mg/0.3 mL See Rx Instructions .ROUTE .COMPLEX 10/07/21 10/07/21 injection syringe (Symjepi) prednisone 10 mg tablet 30 mg PO DAILY 10/07/21 10/07/21 prednisone 20 mg tablet 40 mg PO DAILY 10/07/21 10/07/21 Allergies Allergy/AdvReac Type Severity Reaction Status Date / Time captopril [CAPTOPRIL] Allergy Unknown Verified 09/30/21 08:14 nabumetone [NABUMETONE] Allergy Unknown Rash Verified 09/30/21 08:14 Patient History Medical History Atrial fibrillation Cholelithiasis Chronic respiratory failure with hypoxia and hypercapnia Depression Diabetes Fracture of left ankle Hyperlipidemia Hypertension Inguinal hernia Iron deficiency anemia Lumbar degenerative disc disease Morbid obesity Obesity hypoventilation syndrome Osteoarthritis Paroxysmal atrial fibrillation Pneumococcal meningitis Prolapsed bladder Surgical History History of abdominoplasty History of gastric bypass Family History Mother Heart disease Father No problems noted. Social History household members: family, children and none Smoking Status: Former smoker alcohol intake: former additional social history: lives alone Smoking Status: Former smoker tobacco type: cigarettes alcohol intake frequency: 0-2 drinks per day Substance Use Type: does not use Exam Narrative Exam Narrative: GENERAL: [70 year old patient appears stated age. Chronically ill and in obvious distress, sleepy but arousable with loud voice and noxious stimuli HEAD: Atraumatic. Normocephalic. EYES: Pupils equal round and reactive. Extraocular motions intact. No scleral icterus. No injection or drainage. ENT: Nose without bleeding, purulent drainage. Throat without erythema, tonsillar hypertrophy or exudate. Airway patent. NECK: Trachea midline. Non tender CARDIOVASCULAR: Regular rate and rhythm without murmurs, gallops, or rubs. RESPIRATORY: Faint crackles throughout, decreased breath sounds and prolonged expiratory phase GASTROINTESTINAL: Abdomen soft, no pain EXTREMITIES: No edema or joint tenderness. BACK: Nontender without deformity or crepitance. No flank tenderness. SKIN: No rash or erythema of visible areas Initial Vital Signs Initial Vital Signs: Vital Signs Temperature 98.1 F 10/31/21 18:59 Pulse Rate 61 10/31/21 18:59 Respiratory Rate 22 10/31/21 18:59 Blood Pressure 133/71 10/31/21 18:59 Pulse Oximetry 94 10/31/21 18:59 Procedures Intubation Time out performed: Yes sedative: Ketamine Mg Given: 145 paralytic: Rocuronium Mg Given: 87 Laryngoscope: other (Glidescope) ET Tube Size: 7.5 ET Tube Uncuffed: No Tube Secured Depth (cm): 25 Tube Secured Location: lips Tube Placement Confirmation: Visualized tube passing through cords, Equal breath sounds bilaterally, No breath sounds over epigastrium, Confirmation by capnometry and Chest Xray Patient Tolerated Procedure: Well Intubation Complications: none Course Orders Ordered: ED Orders 10/31/21 21:29 COVID19 -Nasal swab/Pre-Proc Stat 10/31/21 21:34 ABG [Arterial Blood Gas] Stat Acetaminophen (Acetaminophen 650 Mg Supp) 650 mg [place] Q6HR PRN PRN Reason: Fever Albuterol/Ipratropium (Albuterol/Ipratropium 3 Ml Ampul) 3 ml INH RTBID [facility] Aspirin (Aspirin Ec 81 Mg Tablet) 81 mg PO DAILY LORNA Atorvastatin Calcium (Atorvastatin 20 Mg Tablet) 80 mg PO BEDTIME LONRA Bisacodyl (Bisacodyl 10 Mg Supp) 10 mg [place] DAILY PRN PRN Reason: Constipation Bumetanide (Bumetanide 1 Mg/4 Ml Vial) 1 mg IV BID LORNA Last Admin: 11/01/21 02:46 Dose: 1 mg Documented by: [email or web address] Chlorhexidine Gluconate (Chlorhexidine Gluconate 15 Ml Cup) 15 ml PO Q6HR [facility] Dexamethasone (Dexamethasone 10 Mg/Ml Vial) 6 mg IV DAILY [facility] Dextrose (Dextrose 50 % In Water 25 Gm/50 Ml Syringe) 25 gm IV PRN PRN; Protocol PRN Reason: Hypoglycemia Diphenhydramine HCl (Diphenhydramine 25 Mg Tablet) 50 mg PO Q6HR PRN PRN Reason: Itching Docusate Sodium (Docusate 100 Mg Capsule) 100 mg PO BID [facility] Enoxaparin Sodium (Enoxaparin 40 Mg/0.4 Ml Syringe) 40 mg SUBCUT DAILY [facility] Fentanyl (Fentanyl 100 Mcg/2 Ml Inj) 50 mcg IV Q1H PRN PRN Reason: Agitation Last Admin: 11/01/21 02:28 Dose: 50 mcg Documented by: [email or web address] Fluticasone Propionate (Fluticasone 120 [place]/16 Gm [place].Susp) 1 spray NASAL DAILY [facility] Gabapentin (Gabapentin 300 Mg Capsule) 300 mg PO TID LORNA Heparin Sodium (Porcine) (Heparin Flush (Cl/Picc/Mid-Line) 50 Unit/5 Ml Syringe) 50 unit IV BID LORNA dexmedeTOMIDine in 0.9 % NaCL (Precedex) 400 mcg in 100 mls @ 7.371 mls/hr IV TITRATE LORNA; Protocol Last Titration: 11/01/21 04:24 Dose: 0.1 mcg/kg/hr, 3.685 mls/hr Documented by: [email or web address] Admin: 11/01/21 02:28 Dose: 1.2 mcg/kg/hr, 44.225 mls/hr Documented by: [email or web address] Titration: 11/01/21 02:28 Dose: 1.2 mcg/kg/hr, 44.225 mls/hr Documented by: [email or web address] Titration: 11/01/21 00:59 Dose: 1.2 mcg/kg/hr, 44.225 mls/hr Documented by: JUAN F Admin: 11/01/21 00:10 Dose: 0.2 mcg/kg/hr, 7.371 mls/hr Documented by: ATAYLOR Piperacillin Sod/Tazobactam (Sod 3.375 gm/ Sodium Chloride) 100 mls @ 25 mls/hr IV Q8H LORNA Last Admin: 11/01/21 04:41 Dose: 25 mls/hr Documented by: [email or web address] Propofol (Propofol) 1,000 mg in 100 mls @ 4.423 mls/hr IV TITRATE LORNA; Protocol Last Admin: 11/01/21 04:23 Dose: 30 mcg/kg/min, 26.535 mls/hr Documented by: [email or web address] Titration: 11/01/21 04:23 Dose: 40 mcg/kg/min, 35.38 mls/hr Documented by: [email or web address] Titration: 11/01/21 02:44 Dose: 40 mcg/kg/min, 35.38 mls/hr Documented by: [email or web address] Admin: 11/01/21 02:44 Dose: 5 mcg/kg/min, 4.423 mls/hr Documented by: CTR.[email or web address] Titration: 11/01/21 02:44 Dose: 5 mcg/kg/min, 4.423 mls/hr Documented by: [email or web address] Admin: 11/01/21 02:25 Dose: 5 mcg/kg/min, 4.423 mls/hr Documented by: [email or web address] Sodium Chloride (Normal Saline 0.9%) 250 mls @ 21 mls/hr IV Q24H PRN PRN Reason: Flush Insulin Glargine (Insulin Glargine 100 Unit/Ml 3ml Pen) 10 unit SUBCUT BEDTIME LORNA Insulin Human Lispro (Insulin Lispro 100 Unit/Ml 3ml Vial) 0 unit SUBCUT ACHS LORNA; Protocol Metoclopramide HCl (Metoclopramide 10 Mg/2 Ml Inj) 10 mg IV Q6HR PRN PRN Reason: Nausea And Vomiting Naloxone HCl (Naloxone 0.4 Mg/Ml Vial) 0.2 mg IV Q2MIN PRN PRN Reason: Opiate Reversal Nystatin (Nystatin Cream 30 Gm) 1 applic TOP BID LORNA Pantoprazole Sodium (Pantoprazole Dr 20 Mg Tablet) 20 mg PO 0700 [facility] Polyethylene Glycol (Polyethylene Glycol 3350 17 Gm Powd.Pack) 17 gm PO BID LORNA Sennosides (Sennosides 8.6 Mg Tablet) 17.2 mg PO BID [facility] Sodium Chloride (Sodium Chloride 0.9% Flush) 10 ml IV PRN PRN PRN Reason: Flush Ursodiol (Ursodiol 300 Mg Capsule) 300 mg PO BID LORNA Discontinued Medications Albuterol/Ipratropium (Albuterol/Ipratropium 3 Ml Ampul) 3 ml INH NOW ONE Stop: 10/31/21 19:40 Last Admin: 10/31/21 19:46 Dose: 3 ml Documented by: MICHAEL Bumetanide (Bumetanide 1 Mg/4 Ml Vial) 1 mg IV BID [facility] Bumetanide (Bumetanide 1 Mg/4 Ml Vial) 1 mg IV BID [facility] Diltiazem HCl (Diltiazem Cd 180 Mg Cap) 180 mg PO DAILY [facility] Donepezil HCl (Donepezil 5 Mg Tablet) 10 mg PO BEDTIME LORNA Sodium Chloride (Normal Saline 0.9%) 1,000 mls @ 150 mls/hr IV CONT LORNA Lactated Ringer's (Lactated Ringers) 500 mls @ 1,000 mls/hr IV BOLUS ONE Stop: 10/31/21 23:42 Albumin Human (Albuminar) 12.5 gm in 50 mls @ 60 mls/hr IV NOW ONE Stop: 11/01/21 00:02 Piperacillin Sod/Tazobactam (Sod 4.5 gm/ Sodium Chloride) 100 mls @ 200 mls/hr IV NOW ONE Stop: 11/01/21 01:29 Last Admin: 11/01/21 04:53 Dose: Not Given Documented by: [email or web address] Vancomycin HCl (Vancomycin) 1,000 mg in 200 mls @ 200 mls/hr IV NOW ONE Stop: 11/01/21 01:46 Propofol (Propofol) 1,000 mg in 100 mls @ 4.423 mls/hr IV TITRATE LORNA; Protocol Vancomycin HCl/Dextrose (Vancomycin) 2,000 mg in 400 mls @ 200 mls/hr IV NOW ONE Stop: 11/01/21 04:14 Last Admin: 11/01/21 02:54 Dose: 200 mls/hr Documented by: [email or web address] Propofol (Propofol) 1,000 mg in 100 mls @ 4.423 mls/hr IV TITRATE LORNA; Protocol Methylprednisolone (Methylprednisolone 125 Mg/2 Ml Vial) 125 mg IV NOW ONE Stop: 10/31/21 19:06 Last Admin: 10/31/21 20:13 Dose: 125 mg Documented by: ATAYLOR Metoprolol Succinate (Metoprolol Er 25 Mg Tablet) 12.5 mg PO BID LORNA Naloxone HCl (Naloxone 0.4 Mg/Ml Vial) 0.4 mg IV NOW ONE Stop: 10/31/21 22:16 Last Admin: 10/31/21 22:16 Dose: 0.4 mg Documented by: ATAYLOR Rocuronium [place] (Rocuronium 100 Mg/10 Ml Vial) 88 mg 0.6 mg/kg (88 mg) IV NOW ONE Stop: 10/31/21 23:26 Last Admin: 11/01/21 00:02 Dose: 88 mg Documented by: ATAYLOR Reevaluation(s) Reevaluation #1: patient initially doing well on 2-3L on nasal cannula. She progressively is becoming less and less responsive, but demonstrates no significant increased work of breathing. Decision is made to move her into room to and give a trial on BiPAP. ABGs repeated after 30-45 minutes and she is becoming acidotic with a rising CO2 up to 93, PO2 still only 76. I placed a call to patient's son and DPOA who confirms that patient remains a DNR but he and his sister had talked earlier today and wished the patient to be intubated (this is consistent with her POLST) if need be. Consultations Consultation #1: Hospitalist happy to accept, in agreement with intubation, request CTA prior to arrival Vital Signs Vital signs: Vital Signs - 8 hr 10/31/21 21:45 Pulse Rate 89 Respiratory Rate 30 H Pulse Oximetry 88 L MDM - SOB/Dyspnea Lab Data Result diagrams: 11/01/21 04:45 10/31/21 19:50 Labs: Lab Results 10/31/21 10/31/21 10/31/21 Range/Units 19:50 19:50 19:50 WBC 5.8 (4.5-11.0) X10^3/uL RBC 3.98 L (4.0-5.2) X10^6/uL Hgb 11.6 L (12.0-16.0) g/dL Hct 37.8 (36-46) % MCV 95.1 (80-100) fL MCH 29.3 (26-34) PG MCHC 30.8 (30-36) % RDW 17.9 H (11.6-14.8) % Plt Count 138 L (150-400) X10^3/uL Neut % (Auto) 73.7 (50-75) % Lymph % (Auto) 14.1 L (25-40) % [place] % (Auto) 8.5 (3-14) % Eos % (Auto) 2.8 (2-4) % Baso % (Auto) 0.9 (0-2) % Neut # (Auto) 4300 (6391-3301) /uL Lymph # (Auto) 800 L (5397-0061) /uL [place] # (Auto) 500 (0-900) /uL Eos # (Auto) 200 (0-450) /uL Baso # (Auto) 0 (0-100) /uL D-Dimer 560 H (<230) ng/mL ABG pH (7.35-7.45) ABG pCO2 (35-45) mmHg ABG pO2 (80-100) mmHg ABG HCO3 (22-26) mmol/L ABG Total CO2 (21-31) mmol/L ABG O2 Saturation (95-100) % ABG Base Excess (-2-2) mmol/L FiO2 Sodium (137-145) mmol/L Potassium (3.4-5.1) mmol/L Chloride (98-107) mmol/L Carbon Dioxide (22-32) mmol/L BUN (7-17) mg/dL Creatinine (0.52-1.04) mg/dL Estimated GFR (>60) mL/min BUN/Creatinine Ratio (6-22) Glucose (80-110) mg/dL Lactate (0.7-2.1) mmol/L Calcium (8.4-10.2) mg/dL Magnesium 2.0 (1.6-2.3) mg/dL Total Bilirubin (0.2-1.3) mg/dL AST (14-36) IU/L ALT (<35) IU/L Alkaline Phosphatase (38-126) U/L Total Creatine Kinase 24 L (30-135) U/L CK-MB (CK-2) TNP CK-MB (CK-2) Rel Index TNP Troponin I < 0.012 (0.01-0.034) ng/mL NT-Pro-B Natriuret Pep 784 H (<125) pg/mL Total Protein (6.3-8.2) g/dL Albumin (3.5-5.0) g/dL Globulin (1.7-4.1) g/dL Albumin/Globulin Ratio (1.0-2.8) SARS-CoV-2 (PCR) (Negative) 10/31/21 10/31/21 10/31/21 Range/Units 19:50 19:50 20:07 WBC (4.5-11.0) X10^3/uL RBC (4.0-5.2) X10^6/uL Hgb (12.0-16.0) g/dL Hct (36-46) % MCV (80-100) fL MCH (26-34) PG MCHC (30-36) % RDW (11.6-14.8) % Plt Count (150-400) X10^3/uL Neut % (Auto) (50-75) % Lymph % (Auto) (25-40) % [place]duff[place] % (Auto) (3-14) % Eos % (Auto) (2-4) % Baso % (Auto) (0-2) % Neut # (Auto) (7631-9450) /uL Lymph # (Auto) (4673-7895) /uL [place]ff[place] # (Auto) (0-900) /uL Eos # (Auto) (0-450) /uL Baso # (Auto) (0-100) /uL D-Dimer (<230) ng/mL ABG pH 7.40 (7.35-7.45) ABG pCO2 75.7 H* (35-45) mmHg ABG pO2 47 L* (80-100) mmHg ABG HCO3 47 H (22-26) mmol/L ABG Total CO2 49 H (21-31) mmol/L ABG O2 Saturation 80 L* (95-100) % ABG Base Excess 22.0 H (-2-2) mmol/L FiO2 21 Sodium 139 (137-145) mmol/L Potassium 4.8 (3.4-5.1) mmol/L Chloride 91 L (98-107) mmol/L Carbon Dioxide 45 H* (22-32) mmol/L BUN 19 H (7-17) mg/dL Creatinine 0.68 (0.52-1.04) mg/dL Estimated GFR > 60.0 (>60) mL/min BUN/Creatinine Ratio 27.9 H (6-22) Glucose 158 H (80-110) mg/dL Lactate 0.8 (0.7-2.1) mmol/L Calcium 8.7 (8.4-10.2) mg/dL Magnesium (1.6-2.3) mg/dL Total Bilirubin 0.6 (0.2-1.3) mg/dL AST 18 (14-36) IU/L ALT 12 (<35) IU/L Alkaline Phosphatase 67 (38-126) U/L Total Creatine Kinase (30-135) U/L CK-MB (CK-2) CK-MB (CK-2) Rel Index Troponin I (0.01-0.034) ng/mL NT-Pro-B Natriuret Pep (<125) pg/mL Total Protein 6.7 (6.3-8.2) g/dL Albumin 3.7 (3.5-5.0) g/dL Globulin 3.0 (1.7-4.1) g/dL Albumin/Globulin Ratio 1.2 (1.0-2.8) SARS-CoV-2 (PCR) (Negative) 10/31/21 Range/Units 21:29 WBC (4.5-11.0) X10^3/uL RBC (4.0-5.2) X10^6/uL Hgb (12.0-16.0) g/dL Hct (36-46) % MCV (80-100) fL MCH (26-34) PG MCHC (30-36) % RDW (11.6-14.8) % Plt Count (150-400) X10^3/uL Neut % (Auto) (50-75) % Lymph % (Auto) (25-40) % [place] % (Auto) (3-14) % Eos % (Auto) (2-4) % Baso % (Auto) (0-2) % Neut # (Auto) (5869-7502) /uL Lymph # (Auto) (1109-2696) /uL [place] # (Auto) (0-900) /uL Eos # (Auto) (0-450) /uL Baso # (Auto) (0-100) /uL D-Dimer (<230) ng/mL ABG pH (7.35-7.45) ABG pCO2 (35-45) mmHg ABG pO2 (80-100) mmHg ABG HCO3 (22-26) mmol/L ABG Total CO2 (21-31) mmol/L ABG O2 Saturation (95-100) % ABG Base Excess (-2-2) mmol/L FiO2 Sodium (137-145) mmol/L Potassium (3.4-5.1) mmol/L Chloride (98-107) mmol/L Carbon Dioxide (22-32) mmol/L BUN (7-17) mg/dL Creatinine (0.52-1.04) mg/dL Estimated GFR (>60) mL/min BUN/Creatinine Ratio (6-22) Glucose (80-110) mg/dL Lactate (0.7-2.1) mmol/L Calcium (8.4-10.2) mg/dL Magnesium (1.6-2.3) mg/dL Total Bilirubin (0.2-1.3) mg/dL AST (14-36) IU/L ALT (<35) IU/L Alkaline Phosphatase (38-126) U/L Total Creatine Kinase (30-135) U/L CK-MB (CK-2) CK-MB (CK-2) Rel Index Troponin I (0.01-0.034) ng/mL NT-Pro-B Natriuret Pep (<125) pg/mL Total Protein (6.3-8.2) g/dL Albumin (3.5-5.0) g/dL Globulin (1.7-4.1) g/dL Albumin/Globulin Ratio (1.0-2.8) SARS-CoV-2 (PCR) Negative (Negative) Point of Care Testing Glucose POC 166 Imaging Data Chest x-ray: Radiologist's Impression: GENERAL: [] year old patient appears stated age. Well-developed patient, in mild distress. HEAD: Atraumatic. Normocephalic. EYES: Pupils equal round and reactive. Extraocular motions intact. No scleral icterus. No injection or drainage. ENT: Nose without bleeding, purulent drainage. Throat without erythema, tonsillar hypertrophy or exudate. Airway patent. NECK: Trachea midline. Non tender CARDIOVASCULAR: Regular rate and rhythm without murmurs, gallops, or rubs. RESPIRATORY: Clear to auscultation. Breath sounds equal bilaterally. No wheezes, rales, or rhonchi. GASTROINTESTINAL: Abdomen soft, non-tender, nondistended. EXTREMITIES: No edema or joint tenderness. BACK: Nontender without deformity or crepitance. No flank tenderness. NEURO: A cranial nerves 2-12 grossly intact SKIN: No rash or erythema of visible areas Discharge Plan Departure Patient Disposition: Admitted As Inpatient Clinical Impression: Acute hypercapnic respiratory failure, Acute hypoxemic respiratory failure Admit Date/Time: 10/31/21 21:45 Admit Provider: Geovanna Sanchez
[2021-10-31 20:01] LABS: Add Manual Diff / Slide Review NO; Basophils Absolute Auto 0 /uL (0-100); Basophils Percent Auto 0.9 % (0-2); Eosinophils Absolute Auto 200 /uL (0-450); Eosinophils Percent Auto 2.8 % (2-4); Hematocrit 37.8 % (36-46); Hemoglobin 11.6 g/dL (12.0-16.0); Lymphocytes Absolute Auto 800 /uL (1100-4500); Lymphocytes Percent Auto 14.1 % (25-40); Mean Corpuscular HGB Conc 30.8 % (30-36); Mean Corpuscular Hemoglobin 29.3 PG (26-34); Mean Corpuscular Volume 95.1 fL (80-100); Monocytes Absolute Auto 500 /uL (0-900); Monocytes Percent Auto 8.5 % (3-14); Neutrophils Absolute Auto 4300 /uL (1500-7000); Neutrophils Percent Auto 73.7 % (50-75); Platelet Count 138 X10^3/uL (150-400); Red Blood Cell Count 3.98 X10^6/uL (4.0-5.2); Red Cell Distribution Width 17.9 % (11.6-14.8); White Blood Cell Count 5.8 X10^3/uL (4.5-11.0)
[2021-10-31] MEDS: methylPREDNISolone 125 MG/2 ML VIAL IV (20:13)
[2021-10-31 20:19] LABS: D Dimer 560 ng/mL (<230)
[2021-10-31 20:21] LABS: Creatine Kinase 24 U/L (30-135); Lactate (Lactic Acid) 0.8 mmol/L (0.7-2.1)
[2021-10-31 20:22] LABS: Alanine Aminotransferase 12 IU/L (<35); Albumin 3.7 g/dL (3.5-5.0); Albumin Globulin Ratio 1.2 (1.0-2.8); Alkaline Phosphatase 67 U/L (38-126); Aspartate Aminotransferase 18 IU/L (14-36); BUN Creatinine Ratio 27.9 (6-22); Bilirubin Total 0.6 mg/dL (0.2-1.3); Blood Urea Nitrogen 19 mg/dL (7-17); Calcium 8.7 mg/dL (8.4-10.2); Chloride 91 mmol/L (98-107); Estimated Glomerular Filt Rate > 60.0 mL/min (>60); Glucose 158 mg/dL (80-110); HEMOLYSIS < 15 (0-50); Potassium 4.8 mmol/L (3.4-5.1); Sodium 139 mmol/L (137-145); Total Protein 6.7 g/dL (6.3-8.2)
[2021-10-31 20:29] LABS: PCO2 ABG 75.7 mmHg (35-45); PO2 ABG 47 mmHg (80-100)
[2021-10-31 20:30] LABS: Fractionated Inspired Oxygen 21; HCO3 ABG 47 mmol/L (22-26); Oxygen Saturation ABG 80 % (95-100); TCO2 ABG 49 mmol/L (21-31)
[2021-10-31 20:34] LABS: NT-proBNP (BNP-Adult 18+) 784 pg/mL (<125); Troponin I < 0.012 ng/mL (0.01-0.034)
--- NOTE | 2021-10-31 20:53 | PC.NURSE ---
SonJed, called ER. Permission received from pt and updated on status.
[2021-10-31 20:54] LABS: Carbon Dioxide 45 mmol/L (22-32)
--- NOTE | 2021-10-31 21:25 | PC.NURSE ---
Pt sats sustaining in 84%, Dr Benavides notifed. Previously able to awaken pt verbally and pt would respond in short sentances, now pt requiring touch to wake and responding in single words before falling back asleep. Pt with courser crackles in upper lobe and drooling, attempted to golf coach pt in coughing but pt with poor effort. Readjusted head and pt sats increase to 88% and sustain for short periods above 90%.
[2021-10-31 21:52] LABS: COVID19 -Nasal RAPID Negative (Negative)
--- NOTE | 2021-10-31 22:12 | PC.NURSE ---
Pt on bipap with RT at bedside. Dr Odonnell in room and pinpoint pupils noted.
[2021-10-31] MEDS: NALOXONE 0.4 MG/ML VIAL IV (22:16)
--- NOTE | 2021-10-31 22:52 | P.HP_ITS ---
History of Present Illness History of Present Illness Date Patient Seen: 10/31/21 Time Patient Seen: 22:52 Chief complaint: hypoxic event earlier today, better now Narrative: The patient is a 70-year-old female with a history of COPD, chronic hypoxic hypercapnic respiratory failure, atrial fibrillation not anticoagulated, type 2 diabetes, hypertension, hyperlipidemia, iron deficiency anemia, morbid obesity, recent history of COVID who was hospitalized and discharged October 08, 2021. She has been hospitalized in July and September of this year. She was discharged from the hospital after an episode of acute hypoxic respiratory failure. The patient was initially placed on heated high-flow oxygen in ultimately able to be rapidly tapered down to 3-4 L which is her baseline. She remained stable was discharged back home. She was sent back to the emergency department from [facility] due to progressive hypoxemia despite increasing levels of oxygen. On arrival the patient was quite lethargic. A room air ABG was obtained which revealed a pH is 7.4 pCO2 of 75 PO2 of 47 bicarb a 47 O2 sat of 80%. Her lactate was 0.8. White count was 5.8 hemoglobin 11.6 hematocrit 37.8, D-dimer was elevated at 560. Her proBNP was 784. Chest x-ray revealed cardiomegaly, and diffuse ground-glass opacities which were felt to be chronic. The patient was quite lethargic, minimally responsive, and ultimately felt to be obtained id. She was placed on BiPAP and still unresponsive. Patient was found to have pinpoint pupils. It she will be given Narcan in a decision will be made whether the patient needs intubation or whether she can co ntinue to tolerate BiPAP. The patient was placed on BiPAP in the emergency room. She is DNR however her family would like her to be intubated if needed. The patient is encephalopathic, unresponsive, and unable to provide any further history. She is admitted to the hospital for progressive acute on chronic hypoxic respiratory failure Patient History Medical History Atrial fibrillation Cholelithiasis Chronic respiratory failure with hypoxia and hypercapnia Depression Diabetes Fracture of left ankle Hyperlipidemia Hypertension Inguinal hernia Iron deficiency anemia Lumbar degenerative disc disease Morbid obesity Obesity hypoventilation syndrome Osteoarthritis Paroxysmal atrial fibrillation Pneumococcal meningitis Prolapsed bladder Surgical History History of abdominoplasty History of gastric bypass Family & Social History Family History Mother Heart disease Father No problems noted. Social History: household members family,none,children Safety & Behavioral: Feels Safe in Current Yes Environment Been Physically Hurt or No Threatened By a Person Tobacco & Substance use: Tobacco type cigarettes Smoking Status Former smoker alcohol intake former alcohol intake frequency 0-2 drinks per day Substance Use Type does not use Meds Home Medications and Allergies Home Medications Medication Instructions Recorded Confirmed Type aspirin 81 mg tablet,delayed 81 mg PO DAILY 04/12/18 10/07/21 History release ursodiol 300 mg capsule 300 mg PO BID 04/12/18 10/07/21 History gabapentin 300 mg capsule 300 mg PO TID 09/04/18 10/07/21 History atorvastatin 80 mg tablet 80 mg PO BEDTIME 09/25/18 10/07/21 History torsemide 20 mg tablet 1 tab PO QAM 09/25/18 10/07/21 History cetirizine 10 mg tablet (Allergy 1 tab PO DAILY 02/13/19 10/07/21 History Relief (cetirizine)) ferrous sulfate 325 mg (65 mg 1 tab PO QAM 02/13/19 10/07/21 History iron) tablet acetaminophen 325 mg tablet 650 mg PO Q6H PRN 08/04/21 10/07/21 History acetaminophen 500 mg tablet 1,000 mg PO BID 08/04/21 10/07/21 History albuterol sulfate 90 mcg/actuation 2 puff INHALATION Q4H PRN #0 08/04/21 10/07/21 History aerosol inhaler (Ventolin HFA) donepezil 10 mg tablet 20 mg PO QAM 08/04/21 10/07/21 History fluticasone fur. 100 mcg-umeclid 1 inh INHALATION DAILY 08/04/21 10/07/21 His tory 62.5 mcg-vilant 25 mcg inhalat.powder insulin glargine 100 unit/mL (3 9 unit SUBCUT BEDTIME 08/04/21 10/07/21 History mL) subcutaneous pen (Lantus Solostar U-100 Insulin) loperamide 2 mg tablet 2 mg PO Q24H PRN 08/04/21 10/07/21 History metoprolol tartrate 25 mg tablet 12.5 mg PO BID 08/04/21 10/07/21 History nystatin 100,000 unit/gram topical 100,000 unit TOPICAL BID 08/04/21 10/07/21 History powder ondansetron HCl 4 mg tablet 4 mg PO Q6HR PRN 08/04/21 10/07/21 History pantoprazole 20 mg tablet,delayed 20 mg PO DAILY 08/04/21 10/07/21 History release potassium chloride 10 mEq 20 meq PO DAILYCC 08/04/21 10/07/21 History tablet,extended release(part/cryst) (Klor-Con M) sennosides 8.6 mg tablet (senna) 17.2 mg PO Q12H PRN 08/04/21 10/07/21 History diltiazem HCl 180 mg 180 mg PO DAILY 09/08/21 10/07/21 History capsule,extended release 24 hr insulin lispro 100 unit/mL 1 sliding scale dose SUBCUT BIDAC 09/08/21 10/07/21 H istory subcutaneous pen (Humalog KwikPen (U-100) Insulin) melatonin 1 mg tablet 1 mg PO BEDTIME PRN 09/08/21 10/07/21 History polyethylene glycol 3350 17 gram 17 g PO BID PRN 09/08/21 10/07/21 History oral powder packet (Miralax) vitamin A and D 1 applic TOPICAL BID 09/08/21 10/07/21 History casirivimab 120 mg/mL-imdevimab 10 ml SUBCUT PER PKG DIR 10/07/21 10/07/21 History 120 mg/mL intravenous solution (EUA) (REGEN-COV (EUA)) diphenhydramine HCl 25 mg capsule 50 mg PO Q6H PRN 10/07/21 10/07/21 History (Allergy (diphenhydramine)) epinephrine 0.3 mg/0.3 mL See Rx Instructions .ROUTE .COMPLEX 10/07/21 10/07/21 History injection syringe (Symjepi) prednisone 10 mg tablet 30 mg PO DAILY 10/07/21 10/07/21 History prednisone 20 mg tablet 40 mg PO DAILY 10/07/21 10/07/21 History Allergies Allergy/AdvReac Type Severity Reaction Status Date / Time captopril [CAPTOPRIL] Allergy Unknown Verified 09/30/21 08:14 nabumetone [NABUMETONE] Allergy Unknown Rash Verified 09/30/21 08:14 Review of Systems Review of Systems Narrative: Unobtainable due to the patient's mental status Exam Vital Signs (past 8 hours): - 10/31/21 18:59 10/31/21 20:16 10/31/21 20:29 Temperature 98.1 F Pulse Rate 61 75 68 Respiratory Rate 22 22 20 Blood Pressure 133/71 133/75 Pulse Oximetry 94 94 94 10/31/21 21:51 Temperature Pulse Rate Respiratory Rate Blood Pressure 144/76 H Pulse Oximetry Fraction of Inspired Oxygen 45 Oxygen Delivery Method Nasal Cannula Oxygen Flow Rate 3 Narrative Exam Narrative: Obese elderly female lying in bed unresponsive HENNE Other: HEENT: Normocephalic atraumatic, pupils pinpoint, patient has BiPAP mask in place she is unresponsive to stimuli Resp Other: Lungs: Decreased breath sounds with scattered rhonchi bilaterally Cardio Other: Cardiac exam: Irregularly irregular, normal S1-S2 GI Other: Abdomen: Soft and nontender Neuro Other: Patient is obtunded, she is on BiPAP, she is difficult to arouse, GCS score of 6 Extrem Other: Extremities: No edema Objective Labs Result Diagrams: 10/31/21 19:50 10/31/21 19:50 Labs: Laboratory Results - last 24 hr 10/31/21 10/31/21 10/31/21 19:50 19:50 19:50 WBC 5.8 RBC 3.98 L Hgb 11.6 L Hct 37.8 MCV 95.1 MCH 29.3 MCHC 30.8 RDW 17.9 H Plt Count 138 L Neut % (Auto) 73.7 Lymph % (Auto) 14.1 L Rhea % (Auto) 8.5 Eos % (Auto) 2.8 Baso % (Auto) 0.9 Neut # (Auto) 4300 Lymph # (Auto) 800 L Rhea # (Auto) 500 Eos # (Auto) 200 Baso # (Auto) 0 D-Dimer 560 H ABG pH ABG pCO2 ABG pO2 ABG HCO3 ABG Total CO2 ABG O2 Saturation ABG Base Excess FiO2 Sodium Potassium Chloride Carbon Dioxide BUN Creatinine Estimated GFR BUN/Creatinine Ratio Glucose Lactate Calcium Magnesium 2.0 Total Bilirubin AST ALT Alkaline Phosphatase Total Creatine Kinase 24 L CK-MB (CK-2) TNP CK-MB (CK-2) Rel Index TNP Troponin I < 0.012 NT-Pro-B Natriuret Pep 784 H Total Protein Albumin Globulin Albumin/Globulin Ratio SARS-CoV-2 (PCR) 10/31/21 10/31/21 10/31/21 19:50 19:50 20:07 WBC RBC Hgb Hct MCV MCH MCHC RDW Plt Count Neut % (Auto) Lymph % (Auto) Rhea % (Auto) Eos % (Auto) Baso % (Auto) Neut # (Auto) Lymph # (Auto) Rhea # (Auto) Eos # (Auto) Baso # (Auto) D-Dimer ABG pH 7.40 ABG pCO2 75.7 H* ABG pO2 47 L* ABG HCO3 47 H ABG Total CO2 49 H ABG O2 Saturation 80 L* ABG Base Excess 22.0 H FiO2 21 Sodium 139 Potassium 4.8 Chloride 91 L Carbon Dioxide 45 H* BUN 19 H Creatinine 0.68 Estimated GFR > 60.0 BUN/Creatinine Ratio 27.9 H Glucose 158 H Lactate 0.8 Calcium 8.7 Magnesium Total Bilirubin 0.6 AST 18 ALT 12 Alkaline Phosphatase 67 Total Creatine Kinase CK-MB (CK-2) CK-MB (CK-2) Rel Index Troponin I NT-Pro-B Natriuret Pep Total Protein 6.7 Albumin 3.7 Globulin 3.0 Albumin/Globulin Ratio 1.2 SARS-CoV-2 (PCR) 10/31/21 21:29 WBC RBC Hgb Hct MCV MCH MCHC RDW Plt Count Neut % (Auto) Lymph % (Auto) Rhea % (Auto) Eos % (Auto) Baso % (Auto) Neut # (Auto) Lymph # (Auto) Rhea # (Auto) Eos # (Auto) Baso # (Auto) D-Dimer ABG pH ABG pCO2 ABG pO2 ABG HCO3 ABG Total CO2 ABG O2 Saturation ABG Base Excess FiO2 Sodium Potassium Chloride Carbon Dioxide BUN Creatinine Estimated GFR BUN/Creatinine Ratio Glucose Lactate Calcium Magnesium Total Bilirubin AST ALT Alkaline Phosphatase Total Creatine Kinase CK-MB (CK-2) CK-MB (CK-2) Rel Index Troponin I NT-Pro-B Natriuret Pep Total Protein Albumin Globulin Albumin/Globulin Ratio SARS-CoV-2 (PCR) Negative Assessment & Plan Assessment & Plan narrative: 70-year-old female with chronic hypoxic hypercapnic respiratory failure, COPD, atrial fibrillation, type 2 diabetes, hypertension, hyperlipidemia, morbid obesity, recent history of COVID pneumonia admitted to the hospital for * Acute on chronic hypercapnic hypoxic respiratory failure * Etiology unclear, chest x-ray unrevealing, reveals chronic ground-glass opacity * Patient with known probable obesity hypoventilation syndrome * She has COPD will continue DuoNeb inhaler * Likely underlying congestive heart failure * Will obtain CT angio, to rule out PE and/or pneumonia, will obtain 2D echo to evaluate LV function * Will continue diuresis, will hold steroids at this time, continue BiPAP, if the patient has no improvement on BiPAP will proceed with elective intubation * No evidence to suggest pneumonia at this time, * If all of the above is negative will consult Respiratory regarding whether she would be a candidate for trilogy given her recurrent admissions for hypoxic respiratory failure Acute embolic encephalopathy * Multifactorial secondary to hypercapnic hypoxic respiratory failure Chronic persistent atrial fibrillation * Will continue metoprolol and diltiazem Hypertension * Continue Diltiazem, metoprolol and Lasix Hyperlipidemia * Continue her statin Type 2 diabetes * Will continue her usual home insulin regimen GERD * Continue PPI Dementia * Continue donepezil Per her records the patient is DNR, will note that her record accordingly. However if she requires intubation the patient would like to be in DPOA is established in her record I have utilized all available means to update review and confirm her current medication Patient will be admitted as an inpatient to the intensive care unit Time Spent With Patient Critical Care time: I spent a total of [] minutes of critical care time on this patient's care today; this time is exclusive of procedural time.
--- NOTE | 2021-10-31 23:03 | PC.NURSE ---
Pt able to kick feet and moan with stimulation, lifted hand attempting to pull at bipap.
--- NOTE | 2021-10-31 23:18 | DI.ECHO.S_ITS ---
[place] [facility]---------[facility] +---------+ : : [id number] : : : : [id number] : : : : Phone: [phone]+ Echocardiogram Report + + :Name: BAUDILIO GRANT Study Date: 11/01/2021 : :[facility] ReadingLocation: Weight: 325 lb: : Gender: Female : :: 1950 Age: 70 yrs BP: 97/62 mmHg: :Reason For Study: Hypoxic event : : Performed By: Willian Sadler : :Referring: SHARYN COLLINS : + + Interpretation Summary This is a technically difficult and enhanced by Definity echocontrast. NSR Normal LV size and wall thickness. EF is grossly normal with EF 45-55%. Normal chamber sizes. Aortic sclerosis without stenosis. Compared to prior study 06/12/2018 no significant changes have occurred. Procedure: A two-dimensional transthoracic echocardiogram with color flow and Doppler was performed. The study quality was technically difficult. The study quality was technically limited. Images from the parasternal window were difficult to obtain and are suboptimal in quality. The apical views were difficult to obtain and are suboptimal in quality. The subcostal views were difficult to obtain and are suboptimal in quality. Comparison is made with the echocardiogram of 06/12/2018. A contrast injection of Definity was performed to improve assessment of LV function. Patient was sitting upright, supine and intubated. The patient was in normal sinus rhythm during the exam. Left Ventricle: The left ventricular ejection fraction is grossly normal. Left ventricular ejection fraction is estimated to be 50 +/- 5%. Right Ventricle: The right ventricle is not well visualized. Mitral Valve: The mitral valve is grossly normal. Aortic Valve: The aortic valve is trileaflet. The aortic valve opens well. There is minimally reduced leaflet mobility. The aortic valve is mildly calcified. Tricuspid Valve: The tricuspid valve is not well visualized, but is grossly normal. Pulmonary artery pressures cannot be estimated because of the lack of a measurable TR jet velocity. Pulmonic Valve: The pulmonic valve is not well seen, but is grossly normal. Great Vessels: Inspiratory collapse cannot be assessed because of mechanical ventilation, thus CVP cannot be estimated.. The inferior vena cava was not well visualized. Pericardium/ Pleura The pericardium appears normal. There is an anterior echo-free space consistent with a fat pad. There is no pleural effusion. MMode/2D Measurements & Calculations LA A4 area: 18.8 cm2 LA length (vol): 6.7 cm Doppler Measurements & Calculations Ao V2 max: 217.5 cm/sec LVOT Max Lee: 110.8 cm/sec Ao V2 mean: 150.3 cm/sec LV V1 max P.9 mmHg Ao max P.9 mmHg LV V1 VTI: 18.5 cm Ao mean P.0 mmHg sev ratio: 0.51 Ao V2 VTI: 36.3 cm MV E max lee: 65.3 cm/sec MV A max lee: 109.9 cm/sec MV E/A: 0.59 Med Peak E' Lee: 4.1 cm/sec E/E' med: 16.1 Lat Peak E' Lee: 6.7 cm/sec E/E' lat: 9.7 E/e' average: 12.9 MV dec time: 0.23 sec Electronically signed by: Yane Brewer M.D. on Reading Physician:11/01/2021 05:45 PM
[2021-10-31 23:21] LABS: Appearance Urine UA CLEAR; Bilirubin Urine UA NEGATIVE (NEGATIVE); Color Urine UA YELLOW; Glucose Urine UA NEGATIVE (Negative); Ketones Urine UA NEGATIVE (NEGATIVE); Leukocyte Esterase Urine UA NEGATIVE (NEGATIVE); Nitrite Urine UA POSITIVE (Negative); Occult Blood Urine UA NEGATIVE (Negative); Protein Urine UA NEGATIVE (Negative); Specific Gravity Urine UA 1.025 (1.000-1.035); Urobilinogen Urine UA 0.2 E.U./dL (0.2)
[2021-10-31 23:28] LABS: Fractionated Inspired Oxygen 45; HCO3 ABG 47 mmol/L (22-26); Oxygen Saturation ABG 92 % (95-100); PO2 ABG 76 mmHg (80-100); TCO2 ABG 50 mmol/L (21-31); pH ABG 7.31 (7.35-7.45)
[2021-10-31 23:46] LABS: Bacteria Urine Many (>30); Culture Indicated Urine Specimen Cultured; Hyaline Casts Urine 1-5/LPF; RBC Urine None Seen (0-5/HPF); Squamous Epithelial Cell Urine 1-5 /HPF (0-5/HPF); WBC Urine 1-5/HPF (0-5/HPF)
[2021-11-01] VITALS (75 sets, daily range): BP systolic 87–182; BP diastolic 40–116; PULSE 54–115; RESP 10–33; TEMP 36.4–37.1; O2SAT 75–100; BMI 59.8
[2021-11-01] MEDS: ROCURONIUM 100 MG/10 ML VIAL 88 MG IV (00:02)
[2021-11-01] MEDS: dexmedeTOMIDine in 0.9 % NaCL 400 MCG/100 ML PLAST..BAG 7.371 MCG IV (00:10)
--- NOTE | 2021-11-01 00:16 | DI.CT.S_ITS ---
PROCEDURE: CT ANGIO CHEST PE PROTOCOL INDICATIONS: hypoxemia, hypercarbia, resp. failure TECHNIQUE: After the administration of intravenous contrast, 2 mm thick sections acquired from the pulmonary apices to the posterior costophrenic angles. 3-dimensional maximum intensity projection (MIP) coronal and sagittal reformats were then acquired through the thorax. For radiation dose reduction, the following was used: automated exposure control, adjustment of mA and/or kV according to patient size. COMPARISON: [facility], CT, CT CHEST W CON, 03/12/2021, 4:23. [facility], CR, XR CHEST 1V, 11/01/2021, 0:49. FINDINGS: Image quality: Respiratory motion artifacts. Pulmonary arteries: Pulmonary arteries are enlarged. The main pulmonary outflow tract measures 4.8 cm in diameter. There are no intraluminal filling defects to suggest central pulmonary embolism. Lungs and pleura: Bilateral ground-glass infiltrates. There is a 0.8 cm nodule in the posterior segment of the right upper lobe (series 10, image 111), unchanged. Subpleural scars and atelectasis. No pleural effusions or pneumothorax. Central and peripheral airways are patent. Mediastinum: There is an endotracheal tube above afua. A nasogastric tube is seen within the stomach. Heart size is mildly enlarged. No pericardial effusion. There is moderate coronary artery calcification. No mediastinal or hilar adenopathy. The thoracic aorta is ectatic, measuring 4.2 cm in ascending aorta, 3.2 cm in proximal arch and 2 x 8 cm in distal arch. Esophagus is normal in caliber, without hiatal hernia. Bones and chest wall: No suspicious bony lesions. Ribs and thoracic spine appear intact throughout. Thyroid gland is enlarged and heterogeneous. No axillary or supraclavicular adenopathy. Abdomen: Visualized upper abdominal solid organs appear normal in the early arterial phase of enhancement. Probable abdominal aorta aneurysm, which is partially visualized. IMPRESSION: 1. No evidence for pulmonary embolism but the examination is limited due to respiratory motion artifacts. 2. Enlargement of central pulmonary artery consistent with chronic pulmonary hypertension. 3. Mild cardiomegaly. 4. Moderate coronary artery calcification. 5. Ectatic thoracic aorta. Possible abdominal aortic aneurysm, which is partially visualized. A nonurgent ultrasound of the abdominal aorta is recommended for follow-up. 6. Large thyroid gland with heterogeneous attenuation. Recommend correlation with thyroid function tests. 7. Bilateral ground-glass infiltrates suggesting mild pulmonary edema. 8. A 0.8 cm lung nodule in the posterior segment of the left upper lobe it please see enclosed follow-up recommendation. Fleischner Society criteria for SOLID lung nodule followup. Nodule size (mm)Low-risk patientHigh-risk patient?4No follow-up neededFollow-up at 12 mo; if no change, no further follow-up>5-1Nhohof-ud CT at 12 mo; if no change, no further follow-up needed.Initial follow-up CT at 6-12 mo, then 18-24 mo if no change. >6-8Initial follow-up CT at 6-12 mo, then 18-24 mo if no change. Initial follow-up CT at 3-6 mo, then 9-12 mo and 24 mo if no change. >8Follow-up CT at 3, 9, 24 mo. Or PET and/or biopsy.Same as for low-risk pts. Dictated by: Bairon Phillips M.D. on 11/01/2021 at 2:08 Approved by: Bairon Phillips M.D. on 11/01/2021 at 2:22
--- NOTE | 2021-11-01 00:16 | DI.RAD.S_ITS ---
PROCEDURE: XR CHEST 1V INDICATIONS: tube placement TECHNIQUE: One view of the chest was acquired. COMPARISON: [facility], CR, XR CHEST 1V, 10/31/2021, 19:58. FINDINGS: Surgical changes and devices: There is an endotracheal tube 2.8 cm above afua. Lungs and pleura: Mild perihilar infiltrates appears unchanged. No pleural effusions or pneumothorax. Mediastinum: Mediastinal contours appear normal. Heart size is normal. Bones and chest wall: No suspicious bony lesions. Overlying soft tissues appear unremarkable. IMPRESSION: Endotracheal tube tip is 2.8 cm above afua. Dictated by: Bairon Phillips M.D. on 11/01/2021 at 0:43 Approved by: Bairon Phillips M.D. on 11/01/2021 at 0:44
--- NOTE | 2021-11-01 00:16 | DI.CT.S_ITS ---
PROCEDURE: CT HEAD/BRAIN WO CON INDICATIONS: altered mental status, on vent TECHNIQUE: Noncontrast 4.5 mm thick angled axial sections acquired from the foramen magnum to the vertex, with coronal and sagittal reformats. For radiation dose reduction, the following was used: automated exposure control, adjustment of mA and/or kV according to patient size. COMPARISON: [facility], CT, CT HEAD WITHOUT CONTRAST, 01/22/2021, 3:40. [facility], CT, CT HEAD/BRAIN WO CON, 03/12/2021, 4:23. FINDINGS: Image quality: There are artifacts degrading images. CSF spaces: Basal cisterns are patent. No extra-axial fluid collections. The ventricles are symmetric in size and shape. Brain: No intracranial bleeds or masses. There is cerebral volume loss for age, with resultant ventricular and sulcal prominence. There are periventricular and deep white matter chronic small vessel ischemic changes. There is intracranial internal carotid artery atherosclerosis. Skull and face: Calvarium and visualized facial bones appear intact, without suspicious lesions. Sinuses: Mucosal thickening of the ethmoid sinuses bilaterally. The mastoids are clear. There is an endotracheal tube. IMPRESSION: 1. No acute intracranial abnormalities. 2. Cerebral volume loss and chronic microvascular ischemic changes. Dictated by: Bairon Phillips M.D. on 11/01/2021 at 1:50 Approved by: Bairon Phillips M.D. on 11/01/2021 at 1:52
--- NOTE | 2021-11-01 00:19 | P.TELICUCN_ITS ---
History of Present Illness Consult details Chief complaint: hypoxic event earlier today, better now :: This patient was seen via real time interactive two-way audiovisual telecommunication. HPI: 70-year-old female with a history of COPD, OHS,, chronic hypoxic hypercapnic respiratory failure on 3-4L [id number], atrial fibrillation not anticoagulated, type 2 diabetes, hypertension, hyperlipidemia, iron deficiency anemia, morbid obesity, and recent history of COVID PNA (Dx 10/05/21). She was hospitalized from 10/07/21-10/08/21 for COVID PNA requiring HFNC. She got started on Decardron, Remdesivir, and Baricitinib. She quickly improved and was discharged home the next day as her oxygen requirement improved downto her baseline of 3-4L nc. She presented to ER today with AMS and hypoxemia. She got intubated in ER for Acute hypoxic and acute on chronic hypercapnic respiratory failure after failing BIPAP therapy. According to report they suctioned out copious frothy clear secretions from ET tube. Pertinent labs include WBC of 5.8, elevated BNP and elevated D-dimer. CXR showed no focal consolidation and is not significantly changed from the past. [facility] Medical History Atrial fibrillation Cholelithiasis Chronic respiratory failure with hypoxia and hypercapnia Depression Diabetes Fracture of left ankle Hyperlipidemia Hypertension Inguinal hernia Iron deficiency anemia Lumbar degenerative disc disease Morbid obesity Obesity hypoventilation syndrome Osteoarthritis Paroxysmal atrial fibrillation Pneumococcal meningitis Prolapsed bladder Surgical History History of abdominoplasty History of gastric bypass Family History Mother Heart disease Father No problems noted. Social History household members: family, children and none Smoking Status: Former smoker alcohol intake: former additional social history: lives alone Current Medications Current Medications Medications: Home Medications aspirin 81 mg tablet,delayed release 81 mg PO DAILY 04/12/18 [History Confirmed 10/07/21] ursodiol 300 mg capsule 300 mg PO BID 04/12/18 [History Confirmed 10/07/21] gabapentin 300 mg capsule 300 mg PO TID 09/04/18 [History Confirmed 10/07/21] atorvastatin 80 mg tablet 80 mg PO BEDTIME 09/25/18 [History Confirmed 10/07/21] torsemide 20 mg tablet 1 tab PO QAM 09/25/18 [History Confirmed 10/07/21] cetirizine 10 mg tablet (Allergy Relief (cetirizine)) 1 tab PO DAILY 02/13/19 [History Confirmed 10/07/21] ferrous sulfate 325 mg (65 mg iron) tablet 1 tab PO QAM 02/13/19 [History Confir med 10/07/21] acetaminophen 325 mg tablet 650 mg PO Q6H PRN 08/04/21 [History Confirmed 10/07/21] acetaminophen 500 mg tablet 1,000 mg PO BID 08/04/21 [History Confirmed 10/07/21] albuterol sulfate 90 mcg/actuation aerosol inhaler (Ventolin HFA) 2 puff INHALATION Q4H PRN #0 08/04/21 [History Confirmed 10/07/21] donepezil 10 mg tablet 20 mg PO QAM 08/04/21 [History Confirmed 10/07/21] fluticasone fur. 100 mcg-umeclid 62.5 mcg-vilant 25 mcg inhalat.powder 1 inh INHALATION DAILY 08/04/21 [History Confirmed 10/07/21] insulin glargine 100 unit/mL (3 mL) subcutaneous pen (Lantus Solostar U-100 Insulin) 9 unit SUBCUT BEDTIME 08/04/21 [History Confirmed 10/07/21] loperamide 2 mg tablet 2 mg PO Q24H PRN 08/04/21 [History Confirmed 10/07/21] metoprolol tartrate 25 mg tablet 12.5 mg PO BID 08/04/21 [History Confirmed 10/07/21] nystatin 100,000 unit/gram topical powder 100,000 unit TOPICAL BID 08/04/21 [History Confirmed 10/07/21] ondansetron HCl 4 mg tablet 4 mg PO Q6HR PRN 08/04/21 [History Confirmed 10/07/21] pantoprazole 20 mg tablet,delayed release 20 mg PO DAILY 08/04/21 [History Confirmed 10/07/21] potassium chloride 10 mEq tablet,extended release(part/cryst) (Klor-Con M) 20 meq PO DAILYCC 08/04/21 [History Confirmed 10/07/21] sennosides 8.6 mg tablet (senna) 17.2 mg PO Q12H PRN 08/04/21 [History Confirmed 10/07/21] diltiazem HCl 180 mg capsule,extended release 24 hr 180 mg PO DAILY 09/08/21 [History Confirmed 10/07/21] insulin lispro 100 unit/mL subcutaneous pen (Humalog KwikPen (U-100) Insulin) 1 sliding scale dose SUBCUT BIDAC 09/08/21 [History Confirmed 10/07/21] melatonin 1 mg tablet 1 mg PO BEDTIME PRN 09/08/21 [History Confirmed 10/07/21] polyethylene glycol 3350 17 gram oral powder packet (Miralax) 17 g PO BID PRN 09/08/21 [History Confirmed 10/07/21] vitamin A and D 1 applic TOPICAL BID 09/08/21 [History Confirmed 10/07/21] casirivimab 120 mg/mL-imdevimab 120 mg/mL intravenous solution (EUA) (REGEN-COV (EUA)) 10 ml SUBCUT PER PKG DIR 10/07/21 [History Confirmed 10/07/21] diphenhydramine HCl 25 mg capsule (Allergy (diphenhydramine)) 50 mg PO Q6H PRN 10/07/21 [History Confirmed 10/07/21] epinephrine 0.3 mg/0.3 mL injection syringe (Symjepi) See Rx Instructions .ROUTE .COMPLEX 10/07/21 [History Confirmed 10/07/21] prednisone 10 mg tablet 30 mg PO DAILY 10/07/21 [History Confirmed 10/07/21] prednisone 20 mg tablet 40 mg PO DAILY 10/07/21 [History Confirmed 10/07/21] Visit Medications (administered) Generic Name Dose Route Start Last Admin Trade Name Freq PRN Reason Stop Dose Admin dexmedeTOMIDine in 0.9 % NaCL 400 mcg in 100 mls @ 7.371 mls/hr 10/31/21 23:30 11/01/21 00:10 Precedex IV 0.2 mcg/kg/hr TITRATE LORNA 7.371 mls/hr Administration Protocol 0.2 MCG/KG/HR Exam Vital Signs (past 8 hours): - 10/31/21 18:59 10/31/21 20:16 10/31/21 20:29 Temperature 98.1 F Pulse Rate 61 75 68 Respiratory Rate 22 22 20 Blood Pressure 133/71 133/75 Pulse Oximetry 94 94 94 10/31/21 21:32 10/31/21 21:35 10/31/21 21:40 Temperature Pulse Rate 87 90 90 Respiratory Rate 24 24 26 H Blood Pressure Pulse Oximetry 92 91 90 L 10/31/21 21:45 10/31/21 21:50 10/31/21 21:51 Temperature Pulse Rate 89 81 Respiratory Rate 30 H 20 Blood Pressure 144/76 H Pulse Oximetry 88 L 93 10/31/21 21:55 10/31/21 22:00 10/31/21 22:05 Temperature Pulse Rate 80 82 80 Respiratory Rate 20 16 20 Blood Pressure 138/73 Pulse Oximetry 91 91 93 10/31/21 22:10 10/31/21 22:15 10/31/21 22:20 Temperature Pulse Rate 80 83 84 Respiratory Rate 18 21 22 Blood Pressure Pulse Oximetry 91 90 L 92 10/31/21 22:25 10/31/21 22:30 10/31/21 22:35 Temperature Pulse Rate 85 88 92 H Respiratory Rate 12 12 15 Blood Pressure 138/75 Pulse Oximetry 92 92 10/31/21 22:40 10/31/21 22:45 10/31/21 22:50 Temperature Pulse Rate 84 83 86 Respiratory Rate 13 12 12 Blood Pressure Pulse Oximetry 93 92 92 10/31/21 22:55 10/31/21 23:00 10/31/21 23:05 Temperature Pulse Rate 82 81 80 Respiratory Rate 12 12 12 Blood Pressure 117/74 Pulse Oximetry 93 93 94 10/31/21 23:10 10/31/21 23:15 10/31/21 23:20 Temperature Pulse Rate 79 77 75 Respiratory Rate 16 12 12 Blood Pressure Pulse Oximetry 95 95 95 10/31/21 23:25 10/31/21 23:30 10/31/21 23:35 Temperature Pulse Rate 78 77 75 Respiratory Rate 12 12 12 Blood Pressure 124/72 Pulse Oximetry 94 94 94 10/31/21 23:40 10/31/21 23:45 10/31/21 23:50 Temperature Pulse Rate 72 71 71 Respiratory Rate 15 12 12 Blood Pressure Pulse Oximetry 94 94 93 10/31/21 23:55 11/01/21 00:00 11/01/21 00:05 Temperature Pulse Rate 68 71 115 H Respiratory Rate 12 11 L 10 L Blood Pressure 116/67 124/85 170/116 H Pulse Oximetry 94 94 75 L 11/01/21 00:10 11/01/21 00:15 Temperature Pulse Rate 106 H 96 H Respiratory Rate 12 19 Blood Pressure 182/100 H Pulse Oximetry 98 99 Fraction of Inspired Oxygen 45 Oxygen Delivery Method Nasal Cannula Oxygen Flow Rate 3 Objective Labs Result Diagrams: 10/31/21 19:50 10/31/21 19:50 Labs: Laboratory Results - last 24 hr 10/31/21 10/31/21 10/31/21 19:50 19:50 19:50 WBC 5.8 RBC 3.98 L Hgb 11.6 L Hct 37.8 MCV 95.1 MCH 29.3 MCHC 30.8 RDW 17.9 H Plt Count 138 L Neut % (Auto) 73.7 Lymph % (Auto) 14.1 L [place] % (Auto) 8.5 Eos % (Auto) 2.8 Baso % (Auto) 0.9 Neut # (Auto) 4300 Lymph # (Auto) 800 L [place] # (Auto) 500 Eos # (Auto) 200 Baso # (Auto) 0 D-Dimer 560 H ABG pH ABG pCO2 ABG pO2 ABG HCO3 ABG Total CO2 ABG O2 Saturation ABG Base Excess FiO2 Sodium Potassium Chloride Carbon Dioxide BUN Creatinine Estimated GFR BUN/Creatinine Ratio Glucose Lactate Calcium Magnesium 2.0 Total Bilirubin AST ALT Alkaline Phosphatase Total Creatine Kinase 24 L CK-MB (CK-2) TNP CK-MB (CK-2) Rel Index TNP Troponin I < 0.012 NT-Pro-B Natriuret Pep 784 H Total Protein Albumin Globulin Albumin/Globulin Ratio Urine Color Urine Appearance Urine pH Ur Specific [place] Urine Protein Urine Glucose (UA) Urine Ketones Urine Occult Blood Urine Nitrate Urine Bilirubin Urine Urobilinogen Ur Leukocyte Esterase Urine RBC Urine WBC Ur Squamous Epith Cells Urine Bacteria Hyaline Casts Ur Culture Indicated? SARS-CoV-2 (PCR) 10/31/21 10/31/21 10/31/21 19:50 19:50 20:07 WBC RBC Hgb Hct MCV MCH MCHC RDW Plt Count Neut % (Auto) Lymph % (Auto) [place] % (Auto) Eos % (Auto) Baso % (Auto) Neut # (Auto) Lymph # (Auto) [place] # (Auto) Eos # (Auto) Baso # (Auto) D-Dimer ABG pH 7.40 ABG pCO2 75.7 H* ABG pO2 47 L* ABG HCO3 47 H ABG Total CO2 49 H ABG O2 Saturation 80 L* ABG Base Excess 22.0 H FiO2 21 Sodium 139 Potassium 4.8 Chloride 91 L Carbon Dioxide 45 H* BUN 19 H Creatinine 0.68 Estimated GFR > 60.0 BUN/Creatinine Ratio 27.9 H Glucose 158 H Lactate 0.8 Calcium 8.7 Magnesium Total Bilirubin 0.6 AST 18 ALT 12 Alkaline Phosphatase 67 Total Creatine Kinase CK-MB (CK-2) CK-MB (CK-2) Rel Index Troponin I NT-Pro-B Natriuret Pep Total Protein 6.7 Albumin 3.7 Globulin 3.0 Albumin/Globulin Ratio 1.2 Urine Color Urine Appearance Urine pH Ur Specific [place] Urine Protein Urine Glucose (UA) Urine Ketones Urine Occult Blood Urine Nitrate Urine Bilirubin Urine Urobilinogen Ur Leukocyte Esterase Urine RBC Urine WBC Ur Squamous Epith Cells Urine Bacteria Hyaline Casts Ur Culture Indicated? SARS-CoV-2 (PCR) 10/31/21 10/31/21 10/31/21 21:29 22:40 Unknown WBC RBC Hgb Hct MCV MCH MCHC RDW Plt Count Neut % (Auto) Lymph % (Auto) [place] % (Auto) Eos % (Auto) Baso % (Auto) Neut # (Auto) Lymph # (Auto) [place] # (Auto) Eos # (Auto) Baso # (Auto) D-Dimer ABG pH 7.31 L ABG pCO2 93.0 H* ABG pO2 76 L ABG HCO3 47 H ABG Total CO2 50 H ABG O2 Saturation 92 L ABG Base Excess 21.0 H FiO2 45 Sodium Potassium Chloride Carbon Dioxide BUN Creatinine Estimated GFR BUN/Creatinine Ratio Glucose Lactate Calcium Magnesium Total Bilirubin AST ALT Alkaline Phosphatase Total Creatine Kinase CK-MB (CK-2) CK-MB (CK-2) Rel Index Troponin I NT-Pro-B Natriuret Pep Total Protein Albumin Globulin Albumin/Globulin Ratio Urine Color Yellow Urine Appearance Clear Urine pH 5.0 Ur Specific [place] 1.025 Urine Protein Negative Urine Glucose (UA) Negative Urine Ketones Negative Urine Occult Blood Negative Urine Nitrate Positive H Urine Bilirubin Negative Urine Urobilinogen 0.2 Ur Leukocyte Esterase Negative Urine RBC None seen Urine WBC 1-5/hpf Ur Squamous Epith Cells 1-5 /hpf Urine Bacteria Many (>30) H Hyaline Casts 1-5/lpf Ur Culture Indicated? Specimen cultured SARS-CoV-2 (PCR) Negative Assessment & Plan Assessment & Plan narrative: Acute on chronic hypoxic and hypercapnic respiratory failure COVID Dx 10/05/21 OHS COPD CHF Afib (not anticoagulated) DM Obesity Encephalopathy bradycardia Discussion: 70 yo woman with PMH of COPD, OHS, AFIB, DM, obesity, recent multiple hospitalizations recently for acute on chronic hypercapnic and hypoxic respiratory failure, and COVID Dx 10/05/21 admitted for acute on chronic hypercapnic respiratory failure. Differential Dx includes, PE, CHF, COPD exacerb ation, and COVID PNA. Plan EMERGENCY MANAGEMENT PROGRAM SPECIALIST:titrate sedation (propofol and Precedex drip) to patinet comfort while intubated CV:agree with getting ECHO to evaluate LV function -resume outpatient BP meds if BP tolerates -hold Diltiazem and metoprolol now given bradycardia Pulm: monitor abg and adjust vent as needed -agree with getting CTA to rule out PE -start steroids for both possible COPD exacerbation and COVID Pneumonitis ID: no fever or leukocytosis -ndiaye culture -check procal -if procal elevated, consider starting empiric antibiotics for Health care assosciated PNA Heme: if CTA + for PE start full dose anticoagulation GI: start tube feeds if not extubated by tomorrow -resume outpatient protonix FEN/Renal: stable renal function -diurese wiht bumex as tolerated by BP and Cr -monitor CHemistries and replace electrolytes as needed Endo: BG control with insulin Prophylaxis: Lovenox/heparin, Protonix CCT spent 65 min Time Spent With Patient Critical Care time: I spent a total of [] minutes of critical care time on this patient's care today; this time is exclusive of procedural time.
--- NOTE | 2021-11-01 00:20 | PC.NURSE ---
Pt intubated at 2006 with 7.5 ET tube placed by Dr Odonnell, measured [address] Odonnell, RT and x3 RN at bedside during procedure. Placement confirmed with ETCO2 monitoring, color metric CO2, auscultation of bilateral breath sounds, chest rise equal bilaterally, condensation in tube with white secretions. Pt tolerated well.
--- NOTE | 2021-11-01 00:51 | DI.RAD.S_ITS ---
PROCEDURE: XR CHEST 1V INDICATIONS: confirm g tube TECHNIQUE: One view of the chest was acquired. COMPARISON: [facility], , XR CHEST 1V, 11/01/2021, 0:14. FINDINGS: Surgical changes and devices: There is a nasogastric tube with the tip projecting to the upper abdomen right of the midline. Lungs and pleura: Bilateral interstitial prominence suspicious for mild pulmonary edema. No pleural effusions or pneumothorax. Mediastinum: Mediastinal contours appear normal. Heart size is prominent. Bones and chest wall: No suspicious bony lesions. Overlying soft tissues appear unremarkable. IMPRESSION: The tip of the nasogastric tube projects to the upper abdomen right of the midline. Dictated by: Bairon Phillips M.D. on 11/01/2021 at 1:23 Approved by: Bairon Phillips M.D. on 11/01/2021 at 1:24
[2021-11-01] MEDS: KETAMINE 50 MG/5 ML *SYRINGE 145 MG IV ×2 (01:01)
--- NOTE | 2021-11-01 01:59 | PC.NURSE ---
During CT, had 18g in right wrist infiltrated and there was a temporary interruption to sedation. Applied restraints prior to transport up to ICU. Restarted sedation in 20g left AC and transported upstairs. During CT noticed abdominal wall movement, notified Dr Odonnell and verified tube was in correct place and that abdominal wall movement did not correlate to bagging patient. Patient was successfully moved to inpatient bed and ICU assumed care of patient.
[2021-11-01] MEDS: propofoL 1,000 MG/100 ML VIAL 4.423 MG IV ×2 (02:25→02:44)
[2021-11-01] MEDS: dexmedeTOMIDine in 0.9 % NaCL 400 MCG/100 ML PLAST..BAG 44.225 MCG IV (02:28)
[2021-11-01] MEDS: fentaNYL 100 MCG/2 ML INJ 50 MCG IV ×2 (02:28→16:58)
[2021-11-01] MEDS: BUMETANIDE 1 MG/4 ML VIAL IV ×2 (02:46→20:49)
[2021-11-01] MEDS: VANCOMYCIN 2,000 MG/400 ML PIGGYBACK 200 MG IV (02:54)
[2021-11-01] MEDS: propofoL 1,000 MG/100 ML VIAL 26.535 MG IV (04:23)
[2021-11-01] MEDS: PIPERACILLIN/TAZO 3.375 GM in SODIUM CHLORIDE 0.9% 100 ML 25 ML IV (04:41)
[2021-11-01 05:12] LABS: Add Manual Diff / Slide Review NO; Basophils Absolute Auto 0 /uL (0-100); Basophils Percent Auto 0.8 % (0-2); Eosinophils Absolute Auto 0 /uL (0-450); Eosinophils Percent Auto 0.1 % (2-4); Hematocrit 37.1 % (36-46); Hemoglobin 11.7 g/dL (12.0-16.0); Lymphocytes Absolute Auto 200 /uL (1100-4500); Lymphocytes Percent Auto 3.7 % (25-40); Mean Corpuscular HGB Conc 31.5 % (30-36); Mean Corpuscular Hemoglobin 29.4 PG (26-34); Mean Corpuscular Volume 93.2 fL (80-100); Monocytes Absolute Auto 0 /uL (0-900); Monocytes Percent Auto 0.7 % (3-14); Neutrophils Absolute Auto 5000 /uL (1500-7000); Neutrophils Percent Auto 94.7 % (50-75); Platelet Count 133 X10^3/uL (150-400); Red Blood Cell Count 3.98 X10^6/uL (4.0-5.2); Red Cell Distribution Width 17.1 % (11.6-14.8); White Blood Cell Count 5.3 X10^3/uL (4.5-11.0)
[2021-11-01 05:16] LABS: Alanine Aminotransferase 13 IU/L (<35); Albumin 3.6 g/dL (3.5-5.0); Albumin Globulin Ratio 1.2 (1.0-2.8); Alkaline Phosphatase 69 U/L (38-126); Aspartate Aminotransferase 19 IU/L (14-36); BUN Creatinine Ratio 33.9 (6-22); Bilirubin Total 0.8 mg/dL (0.2-1.3); Blood Urea Nitrogen 21 mg/dL (7-17); Calcium 8.8 mg/dL (8.4-10.2); Chloride 90 mmol/L (98-107); Estimated Glomerular Filt Rate > 60.0 mL/min (>60); Globulin 2.9 g/dL (1.7-4.1); Glucose 254 mg/dL (80-110); HEMOLYSIS < 15 (0-50); Potassium 4.3 mmol/L (3.4-5.1); Sodium 137 mmol/L (137-145); Total Protein 6.5 g/dL (6.3-8.2)
[2021-11-01 05:33] LABS: Procalcitonin 0.07 ng/mL (<0.5)
[2021-11-01 05:45] LABS: Carbon Dioxide 44 mmol/L (22-32)
[2021-11-01 06:23] LABS: HCO3 ABG 44 mmol/L (22-26); PCO2 ABG 57.6 mmHg (35-45); PO2 ABG 60 mmHg (80-100); pH ABG 7.49 (7.35-7.45)
[2021-11-01 06:24] LABS: Fractionated Inspired Oxygen 90; Oxygen Saturation ABG 92 % (95-100); TCO2 ABG 46 mmol/L (21-31)
[2021-11-01] MEDS: PANTOPRAZOLE DR 20 MG TABLET PO (08:00)
[2021-11-01] MEDS: ALBUTEROL/IPRATROPIUM 3 ML AMPUL INH ×2 (08:35→17:54)
[2021-11-01] MEDS: CHLORHEXIDINE GLUCONATE 15 ML CUP PO ×3 (08:35→23:17)
[2021-11-01] MEDS: ENOXAPARIN 40 MG/0.4 ML SYRINGE SUBCUT ×2 (10:00→20:49)
[2021-11-01] MEDS: ursodioL 300 MG CAPSULE PO (10:00)
[2021-11-01] MEDS: ASPIRIN EC 81 MG TABLET PO (10:00)
--- NOTE | 2021-11-01 11:13 | PM.ICURNDS ---
- :: This patient was seen via real time interactive two-way audiovisual telecommunication. birdie remains inutbation on high PEEP and fio2. CT revidewed - likely pulm edema, covid -. differential remians broad but suspect this is likely flash pulm edema given BP on arrival. Pending TTE. BP currntly ocntrolled and she is well sewdated. being diuresed with bumex. will start TF . dvt ppx. empric abx
[2021-11-01] MEDS: propofoL 1,000 MG/100 ML VIAL 22.113 MG IV ×2 (11:57→16:21)
--- NOTE | 2021-11-01 12:11 | DIET.PN1 ---
Addendum entered by Cynthia Santoyo 11/01/21 13:36: Continuous OG feeding of Jevity 1.2 starting at 20mL/h titrating up by 5mL q6h until reaching goal rate of 30mL/h. 200mL free water flushes q4h and an additional Ensure Max (2 total) fed through tube bid to supply additional protein secondary to high propofol kcals limiting formula rate. Pt receiving propofol 25mcg/kg/min providing 617kcals and 97g fat. TF rate will need to be adjusted if propofol rate decreases. Feeds plus Ensure plus free water flushes provide 1649kcals (20kcal/kg ABW), 82g PRO (1g/kg), 122g CHO, feed water of 581mL, total fluids 2L. Original Note: Dietary Progress Note Assessment: 70y F with a history of COPD, chronic hypoxic hypercapnic respiratory failure, atrial fibrillation not anticoagulated, type 2 diabetes, hypertension, hyperlipidemia, iron deficiency anemia, morbid obesity, recent history of COVID admitted for progressive acute on chronic hypoxic respiratory failure. Pt intubated, imaging shows OG tube in proper placement. Order from flour distributor to start TF, we do not have formula requested. RD calculating pts needs with TF as follows: Continuous OG feeding of Jevity 1.2 starting at 20mL/h titrating up by 5mL q6h until reaching goal rate of 30mL/h. 200mL free water flushes q4h and an additional Ensure Max (2 total) fed through tube bid to supply additional protein secondary to high propofol kcals limiting formula rate. Pt receiving propofol 25mcg/kg/min providing 617kcals and 97g fat. TF rate will need to be adjusted if propofol rate decreases. Feeds plus Ensure plus free water flushes provide 1649kcals (20kcal/kg ABW), 82g PRO (1g/kg), 122g CHO, feed water of 581mL, total fluids 2L. Ht: 167.64 cm Wt: 155.7 kg BMI: 59.8 UBW: 140kg Last BM: () MNA: 10 Demetrius Score: 10 Nutrition Percent Meal Consumed NPO 11/01/21 09:44 Labs: RBC 3.98 X10^6/uL (4.0-5.2) L 11/01/21 04:45 Hgb 11.7 g/dL (12.0-16.0) L 11/01/21 04:45 Hct 37.1 % (36-46) 11/01/21 04:45 Creatinine 0.62 mg/dL (0.52-1.04) 11/01/21 04:45 Lactate 0.8 mmol/L (0.7-2.1) 10/31/21 19:50 NT-Pro-B Natriuret Pep 784 pg/mL (<125) H 10/31/21 19:50 Monitoring/Evaluations: TF tolerance, following daily Electronically Signed by: Cynthia Santoyo 11/01/21 12:11 Clinical Dietitian [address] [id number]
[2021-11-01] MEDS: INSULIN LISPRO 100 UNIT/ML 3ML VIAL SUBCUT ×2 (13:17→23:34)
[2021-11-01 14:04] LABS: TSH w/ Reflex to FT4 1.06 uIU/mL (0.47-4.68)
--- NOTE | 2021-11-01 14:27 | P.PN_ITS ---
Subjective Subjective Interval history: The patient is intubated and sedated, and unable to participate in subjective history acquisition. She appears comfortable, and not in acute distress. Exam Vital Signs (past 8 hours): - 11/01/21 06:30 11/01/21 06:35 11/01/21 06:40 Temperature Pulse Rate 74 71 72 Respiratory Rate 18 18 18 Blood Pressure 88/55 L 93/55 L Pulse Oximetry 93 93 94 11/01/21 06:45 11/01/21 06:50 11/01/21 07:00 Temperature 97.6 F Pulse Rate 69 69 65 Respiratory Rate 18 18 18 Blood Pressure 92/55 L Pulse Oximetry 95 95 94 11/01/21 08:00 11/01/21 08:45 11/01/21 09:00 Temperature Pulse Rate 69 76 Respiratory Rate 18 18 Blood Pressure 93/55 L 91/54 L Pulse Oximetry 95 95 95 11/01/21 10:00 11/01/21 11:00 11/01/21 12:00 Temperature 98.8 F Pulse Rate 84 100 H 74 Respiratory Rate 20 30 H 18 Blood Pressure 100/63 150/73 H 102/64 Pulse Oximetry 96 97 97 11/01/21 13:00 11/01/21 14:00 Temperature Pulse Rate 84 85 Respiratory Rate 33 H 20 Blood Pressure 135/70 106/61 Pulse Oximetry 97 97 Fraction of Inspired Oxygen 80 Oxygen Delivery Method Mechanical Ventilation Oxygen Flow Rate 3 Narrative Exam Narrative: Obese elderly female lying in bed intubated and sedated, does not appear to be agitated or in acute distress [facility] Other: HEENT: Normocephalic, atraumatic, breathing tube securely in place Resp Other: Lungs: Decreased breath sounds with scattered rhonchi bilaterally Cardio Other: Cardiac exam: Irregularly irregular, normal S1-S2 heart sounds, with no extra h eart sounds or murmurs auscultated GI Other: Abdomen: Soft, non-distended, non-tender, bowel sounds present Neuro Other: Patient is intubated, sedated Extrem Other: Extremities: No pitting peripheral edema appreciated Objective Labs Result Diagrams: 11/01/21 04:45 11/01/21 04:45 Labs: Laboratory Results - last 24 hr 10/31/21 10/31/21 10/31/21 19:50 19:50 19:50 WBC 5.8 RBC 3.98 L Hgb 11.6 L Hct 37.8 MCV 95.1 MCH 29.3 MCHC 30.8 RDW 17.9 H Plt Count 138 L Neut % (Auto) 73.7 Lymph % (Auto) 14.1 L [place] % (Auto) 8.5 Eos % (Auto) 2.8 Baso % (Auto) 0.9 Neut # (Auto) 4300 Lymph # (Auto) 800 L [place] # (Auto) 500 Eos # (Auto) 200 Baso # (Auto) 0 D-Dimer 560 H ABG pH ABG pCO2 ABG pO2 ABG HCO3 ABG Total CO2 ABG O2 Saturation ABG Base Excess FiO2 Sodium Potassium Chloride Carbon Dioxide BUN Creatinine Estimated GFR BUN/Creatinine Ratio Glucose Lactate Calcium Magnesium 2.0 Total Bilirubin AST ALT Alkaline Phosphatase Total Creatine Kinase 24 L CK-MB (CK-2) TNP CK-MB (CK-2) Rel Index TNP Troponin I < 0.012 NT-Pro-B Natriuret Pep 784 H Total Protein Albumin Globulin Albumin/Globulin Ratio Procalcitonin TSH Urine Color Urine Appearance Urine pH Ur Specific [place] Urine Protein Urine Glucose (UA) Urine Ketones Urine Occult Blood Urine Nitrate Urine Bilirubin Urine Urobilinogen Ur Leukocyte Esterase Urine RBC Urine WBC Ur Squamous Epith Cells Urine Bacteria Hyaline Casts Ur Culture Indicated? Nasal Screen MRSA (PCR) SARS-CoV-2 (PCR) 10/31/21 10/31/21 10/31/21 19:50 19:50 19:50 WBC RBC Hgb Hct MCV MCH MCHC RDW Plt Count Neut % (Auto) Lymph % (Auto) [place] % (Auto) Eos % (Auto) Baso % (Auto) Neut # (Auto) Lymph # (Auto) [place] # (Auto) Eos # (Auto) Baso # (Auto) D-Dimer ABG pH ABG pCO2 ABG pO2 ABG HCO3 ABG Total CO2 ABG O2 Saturation ABG Base Excess FiO2 Sodium 139 Potassium 4.8 Chloride 91 L Carbon Dioxide 45 H* BUN 19 H Creatinine 0.68 Estimated GFR > 60.0 BUN/Creatinine Ratio 27.9 H Glucose 158 H Lactate 0.8 Calcium 8.7 Magnesium Total Bilirubin 0.6 AST 18 ALT 12 Alkaline Phosphatase 67 Total Creatine Kinase CK-MB (CK-2) CK-MB (CK-2) Rel Index Troponin I NT-Pro-B Natriuret Pep Total Protein 6.7 Albumin 3.7 Globulin 3.0 Albumin/Globulin Ratio 1.2 Procalcitonin TSH 1.06 Urine Color Urine Appearance Urine pH Ur Specific [place] Urine Protein Urine Glucose (UA) Urine Ketones Urine Occult Blood Urine Nitrate Urine Bilirubin Urine Urobilinogen Ur Leukocyte Esterase Urine RBC Urine WBC Ur Squamous Epith Cells Urine Bacteria Hyaline Casts Ur Culture Indicated? Nasal Screen MRSA (PCR) SARS-CoV-2 (PCR) 10/31/21 10/31/21 10/31/21 20:07 21:29 22:40 WBC RBC Hgb Hct MCV MCH MCHC RDW Plt Count Neut % (Auto) Lymph % (Auto) [place] % (Auto) Eos % (Auto) Baso % (Auto) Neut # (Auto) Lymph # (Auto) [place] # (Auto) Eos # (Auto) Baso # (Auto) D-Dimer ABG pH 7.40 ABG pCO2 75.7 H* ABG pO2 47 L* ABG HCO3 47 H ABG Total CO2 49 H ABG O2 Saturation 80 L* ABG Base Excess 22.0 H FiO2 21 Sodium Potassium Chloride Carbon Dioxide BUN Creatinine Estimated GFR BUN/Creatinine Ratio Glucose Lactate Calcium Magnesium Total Bilirubin AST ALT Alkaline Phosphatase Total Creatine Kinase CK-MB (CK-2) CK-MB (CK-2) Rel Index Troponin I NT-Pro-B Natriuret Pep Total Protein Albumin Globulin Albumin/Globulin Ratio Procalcitonin TSH Urine Color Yellow Urine Appearance Clear Urine pH 5.0 Ur Specific [place] 1.025 Urine Protein Negative Urine Glucose (UA) Negative Urine Ketones Negative Urine Occult Blood Negative Urine Nitrate Positive H Urine Bilirubin Negative Urine Urobilinogen 0.2 Ur Leukocyte Esterase Negative Urine RBC None seen Urine WBC 1-5/hpf Ur Squamous Epith Cells 1-5 /hpf Urine Bacteria Many (>30) H Hyaline Casts 1-5/lpf Ur Culture Indicated? Specimen cultured Nasal Screen MRSA (PCR) SARS-CoV-2 (PCR) Negative 10/31/21 11/01/21 11/01/21 23:10 02:30 03:10 WBC RBC Hgb Hct MCV MCH MCHC RDW Plt Count Neut % (Auto) Lymph % (Auto) [place] % (Auto) Eos % (Auto) Baso % (Auto) Neut # (Auto) Lymph # (Auto) [place] # (Auto) Eos # (Auto) Baso # (Auto) D-Dimer ABG pH 7.31 L 7.49 H ABG pCO2 93.0 H* 57.6 H ABG pO2 76 L 60 L ABG HCO3 47 H 44 H ABG Total CO2 50 H 46 H ABG O2 Saturation 92 L 92 L ABG Base Excess 21.0 H 21.0 H FiO2 45 90 Sodium Potassium Chloride Carbon Dioxide BUN Creatinine Estimated GFR BUN/Creatinine Ratio Glucose Lactate Calcium Magnesium Total Bilirubin AST ALT Alkaline Phosphatase Total Creatine Kinase CK-MB (CK-2) CK-MB (CK-2) Rel Index Troponin I NT-Pro-B Natriuret Pep Total Protein Albumin Globulin Albumin/Globulin Ratio Procalcitonin TSH Urine Color Urine Appearance Urine pH Ur Specific [place] Urine Protein Urine Glucose (UA) Urine Ketones Urine Occult Blood Urine Nitrate Urine Bilirubin Urine Urobilinogen Ur Leukocyte Esterase Urine RBC Urine WBC Ur Squamous Epith Cells Urine Bacteria Hyaline Casts Ur Culture Indicated? Nasal Screen MRSA (PCR) Negative for mrsa SARS-CoV-2 (PCR) 11/01/21 11/01/21 11/01/21 04:45 04:45 04:45 WBC 5.3 RBC 3.98 L Hgb 11.7 L Hct 37.1 MCV 93.2 MCH 29.4 MCHC 31.5 RDW 17.1 H Plt Count 133 L Neut % (Auto) 94.7 H D Lymph % (Auto) 3.7 L [place] % (Auto) 0.7 L Eos % (Auto) 0.1 L Baso % (Auto) 0.8 Neut # (Auto) 5000 Lymph # (Auto) 200 L [place] # (Auto) 0 Eos # (Auto) 0 Baso # (Auto) 0 D-Dimer ABG pH ABG pCO2 ABG pO2 ABG HCO3 ABG Total CO2 ABG O2 Saturation ABG Base Excess FiO2 Sodium 137 Potassium 4.3 Chloride 90 L Carbon Dioxide 44 H* BUN 21 H Creatinine 0.62 Estimated GFR > 60.0 BUN/Creatinine Ratio 33.9 H Glucose 254 H Lactate Calcium 8.8 Magnesium Total Bilirubin 0.8 AST 19 ALT 13 Alkaline Phosphatase 69 Total Creatine Kinase CK-MB (CK-2) CK-MB (CK-2) Rel Index Troponin I NT-Pro-B Natriuret Pep Total Protein 6.5 Albumin 3.6 Globulin 2.9 Albumin/Globulin Ratio 1.2 Procalcitonin 0.07 TSH Urine Color Urine Appearance Urine pH Ur Specific [place] Urine Protein Urine Glucose (UA) Urine Ketones Urine Occult Blood Urine Nitrate Urine Bilirubin Urine Urobilinogen Ur Leukocyte Esterase Urine RBC Urine WBC Ur Squamous Epith Cells Urine Bacteria Hyaline Casts Ur Culture Indicated? Nasal Screen MRSA (PCR) SARS-CoV-2 (PCR) [facility] Medical History Atrial fibrillation Cholelithiasis Chronic respiratory failure with hypoxia and hypercapnia Depression Diabetes Fracture of left ankle Hyperlipidemia Hypertension Inguinal hernia Iron deficiency anemia Lumbar degenerative disc disease Morbid obesity Obesity hypoventilation syndrome Osteoarthritis Paroxysmal atrial fibrillation Pneumococcal meningitis Prolapsed bladder Surgical History History of abdominoplasty History of gastric bypass Family History Mother Heart disease Father No problems noted. Social History household members: family, children and none Smoking Status: Former smoker alcohol intake: former additional social history: lives alone Assessment & Plan Assessment & Plan narrative: 70-year-old female with chronic hypoxic hypercapnic respiratory failure, COPD, atrial fibrillation, type 2 diabetes, hypertension, hyperlipidemia, morbid obesity, recent history of COVID-19 pneumonia in September, who was admitted to the hospital for: 1. Acute on chronic hypercapnic, hypoxic respiratory failure * Patient required intubation on October 31 after she did not improve on BiPAP trial * Etiology unclear, chest x-ray unrevealing, reveals chronic ground-glass opacity * Patient with probable obesity hypoventilation syndrome * CT PE does not show PE, or evidence of pneumonia, and consistent with evidence of pulmonary hypertension * Will diurese with IV Bumex 1 mg bid for today, given likely right-sided volume overload * ECHO pending read, interested in knowing right-sided pressures, likely very high 2. Acute embolic encephalopathy * Likely occurred due to CO2 narcosis on admission, CO2 improving with ventilation 3. Chronic persistent atrial fibrillation, as per chart * Home negative chronotropic agents currently on hold, given patient sedated, and HR/BP on the lower side 4. Hypertension * Continue Diltiazem, metoprolol and Lasix 5. Hyperlipidemia * Continue home atorvastatin 6. Insulin-dependent DM II * Will continue her usual home insulin regimen * Insulin sliding scale * Will continue home aspirin 81 mg daily 7. GERD * Continue PPI with IV famotidine, given that she's intubated, too 8. Dementia, reported per records * Continue donepezil VTE prophylaxis: Lovenox 40 mg bid Time Spent With Patient Critical Care time: I spent a total of [] minutes of critical care time on this patient's care today; this time is exclusive of procedural time. Quality VTE Deep Vein Thrombosis/Pulmonary Embolism Present on Admission: Yes
--- NOTE | 2021-11-01 15:38 | CM.DANOTE ---
DCP/Assessment:Reviewed chart. Patient is a 70yr old female admitted to [facility] with respiratory failure. PCP listed is Dr. Saini. Primary payor is 1)[facility] 2)Medicaid. Patient currently intubated and no family at bedside. Per EMR patient resides at [facility]. At this time d/c needs unknown. P: Pending. CM team to follow closely. [facility] Discharge Planning/Care Management CM Discharge Assessment Start: 11/01/21 15:31 Freq: Status: Active Protocol: Document 11/01/21 15:32 KJS (Rec: 11/01/21 15:38 [facility] [id number]) Discharge Planning Assessment Assigned [employer] EMANUEL Maria Contact Information Brionna Carlos (family) # [phone] Advance Directives? Yes Advance Directives on File No History Provided By Medical Record Prior Living Arrangements Assisted Living Household Members family,none,children Type of transporation used prior to Relies on Others admit Willing to Return to Facility? Yes Independent with ADL's No Is patient alert and oriented? No Caregiver for Another No Comment Patient currently intubated. Comment Pending needs patient resides at [facility]. Patient currently intubated due to respiratory failure. Discharge Plan Assisted Living Facility Transportation Arrangement [facility] Referrals Initiated Other Review Status In Process Next Review Type Continued Stay Review
[2021-11-01 16:29] LABS: Fractionated Inspired Oxygen 70; HCO3 ABG 42 mmol/L (22-26); Oxygen Saturation ABG 97 % (95-100); PCO2 ABG 58.2 mmHg (35-45); PO2 ABG 92 mmHg (80-100); TCO2 ABG 43 mmol/L (21-31); pH ABG 7.46 (7.35-7.45)
[2021-11-01] MEDS: dexmedeTOMIDine in 0.9 % NaCL 400 MCG/100 ML PLAST..BAG 55.282 MCG IV ×2 (19:12→20:14)
--- NOTE | 2021-11-01 19:13 | PC.NURSE ---
1800, patient became more alert and agitated, titrated propofol up. Consulted with Dr. Hinds, requested fentanyl drip, instructed to switch from propofol to precedex due to increased HR. Precedex started with bolus, running at 1.5 mg/kr/hr.
[2021-11-01] MEDS: propofoL 1,000 MG/100 ML VIAL 39.803 MG IV ×2 (19:15→21:02)
[2021-11-01] MEDS: fentaNYL 1,000 MCG in DEXTROSE 5% IN WATER 230 ML IV (20:47)
[2021-11-01] MEDS: ATORVASTATIN 20 MG TABLET 80 MG PO (20:50)
[2021-11-01] MEDS: NYSTATIN CREAM 30 GM 1 APPLIC TOP (20:50)
--- NOTE | 2021-11-01 21:27 | PM.ICURNDS ---
- :: This patient was seen via real time interactive two-way audiovisual telecommunication. 70-year-old female with a history of COPD, OHS,, chronic hypoxic hypercapnic respiratory failure on 3-4L [id number], atrial fibrillation not anticoagulated, type 2 diabetes, hypertension, hyperlipidemia, iron deficiency anemia, morbid obesity, probable PUlm HTN and recent history of COVID PNA (Dx 10/05/21) admitted 10/31/21 with acute on chronic hypoxic hypercapnic respiratory failure. Chest CTA neg for PE and just shows GGO suggestive of pulm edema. Pt. intubated in ER. Recent events: Patient's FIO2 and PEEP requirement coming own (now FIo2 of 60% and PEEP of 5) with diuresis. Patient requiring high dose precedex and propofol drip for adequate sedation and HR int he 50's. Recommendations -increase PEEP To 8 given body habitus and wean down FIO2 further -add fentanyl drip so that we can reduce precedex and propofol drip requirement given bradycardia -continue Bumex 1 mg BID IV for diuresis but will given a dose of Diamox 250 mg Per NGT given metabolic alkalosis CCT 35 min
[2021-11-01] MEDS: INSULIN GLARGINE 100 UNIT/ML 3ML PEN 10 UNIT SUBCUT (21:33)
[2021-11-01] MEDS: acetaZOLAMIDE 250 MG TABLET TUBE (22:14)
[2021-11-01 22:17] LABS: Magnesium 1.7 mg/dL (1.6-2.3)
[2021-11-01 22:26] LABS: HEMOLYSIS 108 (0-50)
[2021-11-01] MEDS: dexmedeTOMIDine in 0.9 % NaCL 400 MCG/100 ML PLAST..BAG 22.113 MCG IV (23:16)
[2021-11-01] MEDS: POTASSIUM CHLORIDE 20 MEQ/15 ML UDC TUBE (23:35)
[2021-11-01] MEDS: MAGNESIUM SULFATE 2 GM/50 ML PIGGYBACK IV (23:35)
[2021-11-02] VITALS (63 sets, daily range): BP systolic 77–126; BP diastolic 47–64; PULSE 48–101; RESP 3–25; TEMP 36.1–37.9; O2SAT 91–97
--- NOTE | 2021-11-02 00:32 | PM.EICU.INT ---
Teleintensivist Intervention Date/Time Was camera activated?: Yes Issue(s) Addressed Emergent issue(s): E-alert Issue(s): Shock/hypotension Intervention(s) :: BP dropped to 80s/40s. Patient was just recently started on Fentanyl drip (and still on Precedex and propofol drip) and had diursed out 900 cc this shift. -wean down sedation (pause propofol drip till BP recoverse) -give Albumin 50 gm 100 cc and LR 250 cc bolus -if BP still low despite above intervention then start Levophed drip for MAP goal of > 65 CCT 25 min Plan discussed with: Nurse
[2021-11-02] MEDS: LACTATED RINGERS 1,000 ML 125 ML IV (00:51)
[2021-11-02] MEDS: NOREPINEPHRINE 4 MG in DEXTROSE 5% IN WATER 250 ML 30.48 ML IV (00:52)
[2021-11-02] MEDS: ALBUMIN HUMAN 25 GM/100 ML VIAL IV (01:13)
--- NOTE | 2021-11-02 01:43 | PC.NURSE ---
NOTIFIED MD ABOUT PATIENT'S BLOOD PRESSURE OF 77/47. MD ORDERED TO PUT PROPOFOL ON STANDBY AND DECREASE FENTANYL AND PRECEDEX. BOLUS 250 LR. SHE ORDERED ALBUMIN AND LEVOPHED. ALL SEDATION WAS PUT ON STANDBY, BOLUS LR, ALBUMIN GIVEN, AND LEVOPHED STARTED AT 2MCG/KG/HR. BP INCREASED. PATIENT WOKE UP AND STARTED TO TRY TO PULL OUT ET TUBE. PRECEDEX STARTED AT 0.1, FENTANYL STARTED AT 10. PATIENT RESPONDED WELL TO THIS AND WAS SEDATED TO A RASS OF -2. BP INCREASED TO A MAP OF 81. LEVOPHED DECREASED TO 1.2 MCG/KG/HR. PATIENT'S HR DECREASED TO 46. PRECEDEX PUT ON STANDBY. NOTIFIED MD OF SUSTAINED BRADYCARDIA. MD ORDERED DOPAMINE DRIP FOR BLOOD PRESSURE.
[2021-11-02] MEDS: DOPAMINE HCL IN DEXTROSE 5 % 400 MG/250 ML PLAST..BAG 5.839 MG IV (02:22)
[2021-11-02] MEDS: ACETAMINOPHEN 325 MG TABLET 650 MG PO (03:18)
--- NOTE | 2021-11-02 03:46 | PC.NURSE ---
NOTIFIED MD THAT PATIENT IS AWAKE. MD HAD PREVIOUSLY ORDERED TO PLACE PROPOFOL AND PRECEDEX ON STANDBY AND UTILIZE FENTANYL FOR SEDATION. PATIENT IS CURRENTLY ON 60 MCG/HR OF FENTANYL AND IS STILL A +3 RASS. MD RECOMMENDED TO TITRATE UP ON PROPOFOL TO ACHEIVE A RASS OF -2. MD ALSO RECOMMENDED TO PLACE LEVOPHED ON STANDBY AND TITRATE DOPAMINE FOR BLOOD PRESSURE MAP >65. AFTER INCREASING PROPOFOL TO 15 AND PLACING LEVOPHED ON STANDBY, PATIENT IMMEDIATELY BECAME HYPOTENSIVE WITH A MAP OF 58. INCREASED DOPAMINE TO 4 MCG/KG/MIN. BLOOD PRESSURE INCREASED TO 106/52 MAP OF 75, RASS OF -2 ACHEIVED.
[2021-11-02 05:55] LABS: Magnesium 2.3 mg/dL (1.6-2.3); Phosphorous 3.9 mg/dL (2.8-4.1)
[2021-11-02 05:58] LABS: Alanine Aminotransferase 10 IU/L (<35); Albumin 3.4 g/dL (3.5-5.0); Albumin Globulin Ratio 1.2 (1.0-2.8); Alkaline Phosphatase 57 U/L (38-126); Aspartate Aminotransferase 20 IU/L (14-36); Bilirubin Total 0.6 mg/dL (0.2-1.3); Blood Urea Nitrogen 27 mg/dL (7-17); Calcium 8.6 mg/dL (8.4-10.2); Chloride 92 mmol/L (98-107); Estimated Glomerular Filt Rate > 60.0 mL/min (>60); Globulin 2.8 g/dL (1.7-4.1); Glucose 180 mg/dL (80-110); HEMOLYSIS < 15 (0-50); Potassium 3.4 mmol/L (3.4-5.1); Sodium 137 mmol/L (137-145); Total Protein 6.2 g/dL (6.3-8.2)
[2021-11-02 06:02] LABS: Add Manual Diff / Slide Review NO; Basophils Absolute Auto 0 /uL (0-100); Basophils Percent Auto 0.5 % (0-2); Eosinophils Absolute Auto 100 /uL (0-450); Eosinophils Percent Auto 1.1 % (2-4); Hemoglobin 11.5 g/dL (12.0-16.0); Lymphocytes Absolute Auto 1000 /uL (1100-4500); Mean Corpuscular Hemoglobin 29.3 PG (26-34); Mean Corpuscular Volume 91.6 fL (80-100); Monocytes Absolute Auto 600 /uL (0-900); Monocytes Percent Auto 9.5 % (3-14); Neutrophils Absolute Auto 4800 /uL (1500-7000); Neutrophils Percent Auto 73.9 % (50-75); Platelet Count 134 X10^3/uL (150-400); Red Blood Cell Count 3.93 X10^6/uL (4.0-5.2); Red Cell Distribution Width 17.7 % (11.6-14.8); White Blood Cell Count 6.5 X10^3/uL (4.5-11.0)
[2021-11-02] MEDS: INSULIN LISPRO 100 UNIT/ML 3ML VIAL SUBCUT ×4 (06:11→23:43)
[2021-11-02 06:12] LABS: Carbon Dioxide 41 mmol/L (22-32)
[2021-11-02] MEDS: CHLORHEXIDINE GLUCONATE 15 ML CUP PO ×4 (06:20→23:44)
[2021-11-02] MEDS: propofoL 1,000 MG/100 ML VIAL 17.69 MG IV (07:30)
[2021-11-02] MEDS: ALBUTEROL/IPRATROPIUM 3 ML AMPUL INH ×2 (07:43→17:54)
[2021-11-02 08:08] LABS: Fractionated Inspired Oxygen 60; HCO3 ABG 38 mmol/L (22-26); Oxygen Saturation ABG 94 % (95-100); PCO2 ABG 52.6 mmHg (35-45); PO2 ABG 67 mmHg (80-100); TCO2 ABG 39 mmol/L (21-31); pH ABG 7.46 (7.35-7.45)
[2021-11-02] MEDS: FAMOTIDINE 20 MG/2 ML VIAL IV (10:16)
[2021-11-02] MEDS: ASPIRIN EC 81 MG TABLET PO (10:16)
[2021-11-02] MEDS: ENOXAPARIN 40 MG/0.4 ML SYRINGE SUBCUT ×2 (10:16→22:12)
[2021-11-02] MEDS: POTASSIUM CHLORIDE 20 MEQ/15 ML UDC 40 MEQ PO (10:17)
[2021-11-02] MEDS: NYSTATIN CREAM 30 GM 1 APPLIC TOP ×2 (10:23→22:14)
[2021-11-02] MEDS: propofoL 1,000 MG/100 ML VIAL 22.113 MG IV ×5 (11:42→23:36)
--- NOTE | 2021-11-02 13:22 | P.PN_ITS ---
Subjective Subjective Date Patient Seen: 11/02/21 Time Patient Seen: 08:00 Interval history: She remains intubated and sedated. Overnight she had hypotension, sedation briefly stopped, but patient became agitated. She had norepinephrine stopped and switched to dopamine due to bradycardia. She has been started on propofol and fentanyl. She opens eyes to voice. Exam Vital Signs (past 8 hours): - 11/02/21 06:00 11/02/21 06:50 11/02/21 06:55 Temperature Pulse Rate 69 67 67 Respiratory Rate 20 20 20 Blood Pressure 100/57 L 107/56 L 103/59 L Pulse Oximetry 93 93 93 11/02/21 07:00 11/02/21 07:05 11/02/21 07:10 Temperature 97.9 F Pulse Rate 66 67 65 Respiratory Rate 20 20 20 Blood Pressure 103/58 L 106/55 L 103/59 L Pulse Oximetry 93 93 93 11/02/21 07:15 11/02/21 07:20 11/02/21 07:25 Temperature Pulse Rate 66 69 66 Respiratory Rate 20 20 20 Blood Pressure 98/57 L 98/56 L 98/55 L Pulse Oximetry 93 93 93 11/02/21 07:30 11/02/21 07:35 11/02/21 07:40 Temperature Pulse Rate 76 68 67 Respiratory Rate 20 20 20 Blood Pressure 102/56 L 105/58 L 96/54 L Pulse Oximetry 93 93 93 11/02/21 07:43 11/02/21 07:45 11/02/21 07:50 Temperature Pulse Rate 67 67 70 Respiratory Rate 20 20 20 Blood Pressure 100/58 L 102/56 L Pulse Oximetry 93 93 93 11/02/21 07:55 11/02/21 08:00 11/02/21 08:15 Temperature Pulse Rate 70 80 75 Respiratory Rate 21 20 20 Blood Pressure 102/55 L 109/57 L 101/53 L Pulse Oximetry 93 94 91 11/02/21 08:30 11/02/21 08:45 11/02/21 09:00 Temperature Pulse Rate 74 85 76 Respiratory Rate 20 20 20 Blood Pressure 98/52 L 105/55 L 105/57 L Pulse Oximetry 91 92 93 11/02/21 09:15 11/02/21 09:30 11/02/21 09:45 Temperature Pulse Rate 74 77 75 Respiratory Rate 20 20 20 Blood Pressure 99/52 L 105/57 L 106/64 Pulse Oximetry 92 93 93 11/02/21 10:00 11/02/21 11:00 11/02/21 12:00 Temperature 97.9 F Pulse Rate 71 75 76 Respiratory Rate 20 20 20 Blood Pressure 96/52 L 105/59 L 100/58 L Pulse Oximetry 93 93 93 11/02/21 13:00 Temperature Pulse Rate 64 Respiratory Rate 20 Blood Pressure 93/52 L Pulse Oximetry 95 Fraction of Inspired Oxygen 60 Oxygen Delivery Method Mechanical Ventilation Oxygen Flow Rate 0 Narrative Exam Narrative: GEN: intubated, sedated CV: irregular PULM: decreased breath sound bilaterally ABD: soft, nontender, nondistended EXT: warm and well perfused, 1+ edema NEURO: sedated Lines: OG tube, intubated, L PICC, meza Objective Labs Result Diagrams: 11/02/21 05:00 11/02/21 05:00 Labs: Laboratory Results - last 24 hr 10/31/21 10/31/21 11/01/21 19:50 22:40 15:46 WBC RBC Hgb Hct MCV MCH MCHC RDW Plt Count Neut % (Auto) Lymph % (Auto) [place] % (Auto) Eos % (Auto) Baso % (Auto) Neut # (Auto) Lymph # (Auto) [place] # (Auto) Eos # (Auto) Baso # (Auto) ABG pH 7.46 H ABG pCO2 58.2 H ABG pO2 92 ABG HCO3 42 H ABG Total CO2 43 H ABG O2 Saturation 97 ABG Base Excess 18.0 H FiO2 70 Sodium Potassium Chloride Carbon Dioxide BUN Creatinine Estimated GFR BUN/Creatinine Ratio Glucose Calcium Phosphorus Magnesium Total Bilirubin AST ALT Alkaline Phosphatase Total Protein Albumin Globulin Albumin/Globulin Ratio TSH 1.06 Urine Color Yellow Urine Appearance Clear Urine pH 5.0 Ur Specific [place] 1.025 Urine Protein Negative Urine Glucose (UA) Negative Urine Ketones Negative Urine Occult Blood Negative Urine Nitrate Positive H Urine Bilirubin Negative Urine Urobilinogen 0.2 Ur Leukocyte Esterase Negative Urine RBC None seen Urine WBC 1-5/hpf Ur Squamous Epith Cells 1-5 /hpf Urine Bacteria Many (>30) H Hyaline Casts 1-5/lpf Ur Culture Indicated? Specimen cultured 11/01/21 11/01/21 11/02/21 22:00 22:00 05:00 WBC 6.5 RBC 3.93 L Hgb 11.5 L Hct 36.0 MCV 91.6 MCH 29.3 MCHC 32.0 RDW 17.7 H Plt Count 134 L Neut % (Auto) 73.9 D Lymph % (Auto) 15.0 L [place] % (Auto) 9.5 Eos % (Auto) 1.1 L Baso % (Auto) 0.5 Neut # (Auto) 4800 Lymph # (Auto) 1000 L [place] # (Auto) 600 Eos # (Auto) 100 Baso # (Auto) 0 ABG pH ABG pCO2 ABG pO2 ABG HCO3 ABG Total CO2 ABG O2 Saturation ABG Base Excess FiO2 Sodium Potassium 4.0 Chloride Carbon Dioxide BUN Creatinine Estimated GFR BUN/Creatinine Ratio Glucose Calcium Phosphorus Magnesium 1.7 Total Bilirubin AST ALT Alkaline Phosphatase Total Protein Albumin Globulin Albumin/Globulin Ratio TSH Urine Color Urine Appearance Urine pH Ur Specific [place] Urine Protein Urine Glucose (UA) Urine Ketones Urine Occult Blood Urine Nitrate Urine Bilirubin Urine Urobilinogen Ur Leukocyte Esterase Urine RBC Urine WBC Ur Squamous Epith Cells Urine Bacteria Hyaline Casts Ur Culture Indicated? 11/02/21 11/02/21 11/02/21 05:00 05:00 07:52 WBC RBC Hgb Hct MCV MCH MCHC RDW Plt Count Neut % (Auto) Lymph % (Auto) [place] % (Auto) Eos % (Auto) Baso % (Auto) Neut # (Auto) Lymph # (Auto) [place] # (Auto) Eos # (Auto) Baso # (Auto) ABG pH 7.46 H ABG pCO2 52.6 H ABG pO2 67 L ABG HCO3 38 H ABG Total CO2 39 H ABG O2 Saturation 94 L ABG Base Excess 14.0 H FiO2 60 Sodium 137 Potassium 3.4 Chloride 92 L Carbon Dioxide 41 H* BUN 27 H Creatinine 0.87 Estimated GFR > 60.0 BUN/Creatinine Ratio 31.0 H Glucose 180 H Calcium 8.6 Phosphorus 3.9 Magnesium 2.3 Total Bilirubin 0.6 AST 20 ALT 10 Alkaline Phosphatase 57 Total Protein 6.2 L Albumin 3.4 L Globulin 2.8 Albumin/Globulin Ratio 1.2 TSH Urine Color Urine Appearance Urine pH Ur Specific [place] Urine Protein Urine Glucose (UA) Urine Ketones Urine Occult Blood Urine Nitrate Urine Bilirubin Urine Urobilinogen Ur Leukocyte Esterase Urine RBC Urine WBC Ur Squamous Epith Cells Urine Bacteria Hyaline Casts Ur Culture Indicated? [facility] Medical History Atrial fibrillation Cholelithiasis Chronic respiratory failure with hypoxia and hypercapnia Depression Diabetes Fracture of left ankle Hyperlipidemia Hypertension Inguinal hernia Iron deficiency anemia Lumbar degenerative disc disease Morbid obesity Obesity hypoventilation syndrome Osteoarthritis Paroxysmal atrial fibrillation Pneumococcal meningitis Prolapsed bladder Surgical History History of abdominoplasty History of gastric bypass Family History Mother Heart disease Father No problems noted. Social History household members: family, children and none Smoking Status: Former smoker alcohol intake: former additional social history: lives alone Assessment & Plan Assessment & Plan narrative: 70-year-old female with chronic hypoxic hypercapnic respiratory failure, COPD, atrial fibrillation, type 2 diabetes, hypertension, hyperlipidemia, morbid obesity, recent history of COVID-19 pneumonia in September, who was admitted to the hospital for: 1. Acute on chronic hypercapnic, hypoxic respiratory failure -Patient required intubation on October 31 after she did not improve on BiPAP trial -Etiology unclear, chest x-ray unrevealing, reveals chronic ground-glass opacity, possibly COPD vs CHF -Patient with probable obesity hypoventilation syndrome -CT PE does not show PE, or evidence of pneumonia, and consistent with evidence of pulmonary hypertension -Will diurese with IV Bumex 1 mg bid for today, given likely right-sided volume overload -ECHO pending read, interested in knowing right-sided pressures, likely very high -no antibiotics for now -continue steroids, dexamethasone -COVID negative 2. Acute metabolic encephalopathy - Likely occurred due to CO2 narcosis on admission, CO2 improving with ventilation 3. Chronic persistent atrial fibrillation, as per chart -Home negative chronotropic agents currently on hold, given patient sedated, and HR/BP on the lower side 4. Hypertension -hold chronotropic agents 5. Hyperlipidemia -Continue home atorvastatin 6. Insulin-dependent DM II -Will continue her usual home insulin regimen -Insulin sliding scale -Will continue home aspirin 81 mg daily 7. GERD -Continue PPI with IV famotidine, given that she's intubated, too 8. Dementia, reported per records -Continue donepezil Time Spent With Patient Critical Care time: I spent a total of 35 minutes of critical care time on this patient's care today; this time is exclusive of procedural time. Quality VTE Deep Vein Thrombosis/Pulmonary Embolism Present on Admission: Yes
[2021-11-02] MEDS: PIPERACILLIN/TAZO 4.5 GM in SODIUM CHLORIDE 0.9% 100 ML 25 ML IV ×2 (14:05→22:16)
--- NOTE | 2021-11-02 14:07 | PM.PN.EICU ---
Subjective Subjective :: This patient was seen via real time interactive two-way audiovisual telecommunication. 70-year-old female with a history of COPD, OHS,, chronic hypoxic hypercapnic respiratory failure on 3-4L [id number], atrial fibrillation not anticoagulated, type 2 diabetes, hypertension, hyperlipidemia, iron deficiency anemia, morbid obesity, and recent history of COVID PNA (Dx 10/05/21).? She was hospitalized from 10/07/21-10/08/21 for COVID PNA requiring HFNC.? She got started on Decardron, Remdesivir, and Baricitinib. She quickly improved and was discharged home the next day as her oxygen requirement improved downto her baseline of 3-4L nc. She presented to ER 11/01 with AMS and hypoxemia.? She got intubated in ER for Acute hypoxic and acute on chronic hypercapnic respiratory failure after failing BIPAP therapy. According to report they suctioned out copious frothy clear secretions from ET tube. Pertinent labs include WBC of 5.8, elevated BNP and elevated D-dimer.? CXR showed no focal consolidation and is not significantly changed from the past. UA consistent w/ UTI, urine CX positive for G(-) CTA was negative for PE buy revealed B/L diffuse GGOs predominantly lower lung zones. This morning, patient remains intubated. Precedex weaned off, remains on 20 of propofol and 60 mcg of fentanyl. On 3 mcg dopamine for bradycardia. Zosyn resumed given urine cx results Current Medications Current Medications Medications: Home Medications aspirin 81 mg tablet,delayed release 81 mg PO DAILY 04/12/18 [History Confirmed 10/07/21] ursodiol 300 mg capsule 300 mg PO BID 04/12/18 [History Confirmed 10/07/21] gabapentin 300 mg capsule 300 mg PO TID 09/04/18 [History Confirmed 10/07/21] atorvastatin 80 mg tablet 80 mg PO BEDTIME 09/25/18 [History Confirmed 10/07/21] torsemide 20 mg tablet 1 tab PO QAM 09/25/18 [History Confirmed 10/07/21] cetirizine 10 mg tablet (Allergy Relief (cetirizine)) 1 tab PO DAILY 02/13/19 [History Confirmed 10/07/21] ferrous sulfate 325 mg (65 mg iron) tablet 1 tab PO QAM 02/13/19 [History Confirmed 10/07/21] acetaminophen 325 mg tablet 650 mg PO Q6H PRN 08/04/21 [History Confirmed 10/07/21] acetaminophen 500 mg tablet 1,000 mg PO BID 08/04/21 [History Confirmed 10/07/21] albuterol sulfate 90 mcg/actuation aerosol inhaler (Ventolin HFA) 2 puff INHALATION Q4H PRN #0 08/04/21 [History Confirmed 10/07/21] donepezil 10 mg tablet 20 mg PO QAM 08/04/21 [History Confirmed 10/07/21] fluticasone fur. 100 mcg-umeclid 62.5 mcg-vilant 25 mcg inhalat.powder 1 inh INHALATION DAILY 08/04/21 [History Confirmed 10/07/21] insulin glargine 100 unit/mL (3 mL) subcutaneous pen (Lantus Solostar U-100 Insulin) 9 unit SUBCUT BEDTIME 08/04/21 [History Confirmed 10/07/21] loperamide 2 mg tablet 2 mg PO Q24H PRN 08/04/21 [History Confirmed 10/07/21] metoprolol tartrate 25 mg tablet 12.5 mg PO BID 08/04/21 [History Confirmed 10/07/21] nystatin 100,000 unit/gram topical powder 100,000 unit TOPICAL BID 08/04/21 [History Confirmed 10/07/21] ondansetron HCl 4 mg tablet 4 mg PO Q6HR PRN 08/04/21 [History Confirmed 10/07/21] pantoprazole 20 mg tablet,delayed release 20 mg PO DAILY 08/04/21 [History Confirmed 10/07/21] potassium chloride 10 mEq tablet,extended release(part/cryst) (Klor-Con M) 20 meq PO DAILYCC 08/04/21 [History Confirmed 10/07/21] sennosides 8.6 mg tablet (senna) 17.2 mg PO Q12H PRN 08/04/21 [History Confirmed 10/07/21] diltiazem HCl 180 mg capsule,extended release 24 hr 180 mg PO DAILY 09/08/21 [History Confirmed 10/07/21] insulin lispro 100 unit/mL subcutaneous pen (Humalog KwikPen (U-100) Insulin) 1 sliding scale dose SUBCUT BIDAC 09/08/21 [History Confirmed 10/07/21] melatonin 1 mg tablet 1 mg PO BEDTIME PRN 09/08/21 [History Confirmed 10/07/21] polyethylene glycol 3350 17 gram oral powder packet (Miralax) 17 g PO BID PRN 09/08/21 [History Confirmed 10/07/21] vitamin A and D 1 applic TOPICAL BID 09/08/21 [History Confirmed 10/07/21] casirivimab 120 mg/mL-imdevimab 120 mg/mL intravenous solution (EUA) (REGEN-COV (EUA)) 10 ml SUBCUT PER PKG DIR 10/07/21 [History Confirmed 10/07/21] diphenhydramine HCl 25 mg capsule (Allergy (diphenhydramine)) 50 mg PO Q6H PRN 10/07/21 [History Confirmed 10/07/21] epinephrine 0.3 mg/0.3 mL injection syringe (Symjepi) See Rx Instructions .ROUTE .COMPLEX 10/07/21 [History Confirmed 10/07/21] prednisone 10 mg tablet 30 mg PO DAILY 10/07/21 [History Confirmed 10/07/21] prednisone 20 mg tablet 40 mg PO DAILY 10/07/21 [History Confirmed 10/07/21] Visit Medications (administered) Generic Name Dose Route Start Last Admin Trade Name Nawaf PRN Reason Stop Dose Admin Acetaminophen 650 mg 11/02/21 02:59 11/02/21 03:18 Acetaminophen 325 Mg Tablet PO 650 mg Q6HR PRN Administration Fever/Mild Pain (1-3) Albuterol/Ipratropium 3 ml 11/01/21 08:00 11/02/21 07:43 Albuterol/Ipratropium 3 Ml Ampul INH 3 ml RTBID LORNA Administration Aspirin 81 mg 11/01/21 09:00 11/02/21 10:16 Aspirin Ec 81 Mg Tablet PO 81 mg DAILY LORNA Administration Atorvastatin Calcium 80 mg 11/01/21 21:00 11/01/21 20:50 Atorvastatin 20 Mg Tablet PO 80 mg BEDTIME LORNA Administration Chlorhexidine Gluconate 15 ml 11/01/21 06:00 11/02/21 06:20 Chlorhexidine Gluconate 15 Ml Cup PO 15 ml Q6HR LORNA Administration Enoxaparin Sodium 40 mg 11/01/21 21:00 11/02/21 10:16 Enoxaparin 40 Mg/0.4 Ml Syringe SUBCUT 40 mg BID LORNA Administration Famotidine 20 mg 11/02/21 09:00 11/02/21 10:16 Famotidine 20 Mg/2 Ml Vial IV 20 mg DAILY LORNA Administration Fentanyl 50 mcg 11/01/21 02:04 11/01/21 16:58 Fentanyl 100 Mcg/2 Ml Inj IV 50 mcg Q1H PRN Administration Agitation Heparin Sodium (Porcine) 50 unit 11/01/21 09:00 11/02/21 10:17 Heparin Flush (Cl/Picc/Mid-Line) 50 Unit/5 Ml Syringe IV 50 unit BID LORNA Administration dexmedeTOMIDine in 0.9 % NaCL 400 mcg in 100 mls @ 7.371 mls/hr 10/31/21 23:30 11/02/21 03:09 Precedex IV 0 mcg/kg/hr TITRATE LORNA 0 mls/hr Titration Protocol 0.2 MCG/KG/HR Propofol 1,000 mg in 100 mls @ 4.423 mls/hr 11/01/21 02:15 11/02/21 11:42 Propofol IV 25 mcg/kg/min TITRATE LORNA 22.113 mls/hr Administration Protocol 5 MCG/KG/MIN Fentanyl 1,000 mcg/ Dextrose 250 mls @ 0 mls/hr 11/01/21 20:30 11/02/21 03:40 IV 4 mcg/min TITRATE LORNA 60 mls/hr Titration Protocol Per Protocol Norepinephrine Bitartrate 4 mg 254 mls @ 30.48 mls/hr 11/02/21 00:45 11/02/21 03:43 / Dextrose IV 0 mcg/min TITRATE LORNA 0 mls/hr Titration Protocol 8 MCG/MIN Dopamine HCl/Dextrose 400 mg in 250 mls @ 5.839 mls/hr 11/02/21 02:00 11/02/21 03:46 Dopamine 400 Mg-D5w 250 Ml IV 4 mcg/kg/min TITRATE LORNA 23.355 mls/hr Titration Protocol 1 MCG/KG/MIN Insulin Glargine 10 unit 11/01/21 21:00 11/01/21 21:33 Insulin Glargine 100 Unit/Ml 3ml Pen SUBCUT 10 unit BEDTIME LORNA Administration Insulin Human Lispro 0 unit 11/01/21 12:00 11/02/21 06:11 Insulin Lispro 100 Unit/Ml 3ml Vial SUBCUT 1 unit Q6H LORNA Administration Protocol Nystatin 1 applic 11/01/21 09:00 11/02/21 10:23 Nystatin Cream 30 Gm TOP 1 applic BID LORNA Administration Objective Ventilator Parameters: Ventilator Settings FiO2 60 RT Vent Frequency 20 Ventilator Tidal Volume 390 Exhaled Positive End Expiratory 8 Pressure Inspiratory Phase Time 0.80 I:E Ratio 1:2.3 Patient Position HOB >= 30 degrees Labs Result Diagrams: 11/02/21 05:00 11/02/21 05:00 Labs: Laboratory Results - last 24 hr 10/31/21 11/01/21 11/01/21 22:40 15:46 22:00 WBC RBC Hgb Hct MCV MCH MCHC RDW Plt Count Neut % (Auto) Lymph % (Auto) [place] % (Auto) Eos % (Auto) Baso % (Auto) Neut # (Auto) Lymph # (Auto) [place] # (Auto) Eos # (Auto) Baso # (Auto) ABG pH 7.46 H ABG pCO2 58.2 H ABG pO2 92 ABG HCO3 42 H ABG Total CO2 43 H ABG O2 Saturation 97 ABG Base Excess 18.0 H FiO2 70 Sodium Potassium 4.0 Chloride Carbon Dioxide BUN Creatinine Estimated GFR BUN/Creatinine Ratio Glucose Calcium Phosphorus Magnesium Total Bilirubin AST ALT Alkaline Phosphatase Total Protein Albumin Globulin Albumin/Globulin Ratio Urine Color Yellow Urine Appearance Clear Urine pH 5.0 Ur Specific Blunt 1.025 Urine Protein Negative Urine Glucose (UA) Negative Urine Ketones Negative Urine Occult Blood Negative Urine Nitrate Positive H Urine Bilirubin Negative Urine Urobilinogen 0.2 Ur Leukocyte Esterase Negative Urine RBC None seen Urine WBC 1-5/hpf Ur Squamous Epith Cells 1-5 /hpf Urine Bacteria Many (>30) H Hyaline Casts 1-5/lpf Ur Culture Indicated? Specimen cultured 11/01/21 11/02/21 11/02/21 22:00 05:00 05:00 WBC 6.5 RBC 3.93 L Hgb 11.5 L Hct 36.0 MCV 91.6 MCH 29.3 MCHC 32.0 RDW 17.7 H Plt Count 134 L Neut % (Auto) 73.9 D Lymph % (Auto) 15.0 L [place] % (Auto) 9.5 Eos % (Auto) 1.1 L Baso % (Auto) 0.5 Neut # (Auto) 4800 Lymph # (Auto) 1000 L [place] # (Auto) 600 Eos # (Auto) 100 Baso # (Auto) 0 ABG pH ABG pCO2 ABG pO2 ABG HCO3 ABG Total CO2 ABG O2 Saturation ABG Base Excess FiO2 Sodium 137 Potassium 3.4 Chloride 92 L Carbon Dioxide 41 H* BUN 27 H Creatinine 0.87 Estimated GFR > 60.0 BUN/Creatinine Ratio 31.0 H Glucose 180 H Calcium 8.6 Phosphorus Magnesium 1.7 Total Bilirubin 0.6 AST 20 ALT 10 Alkaline Phosphatase 57 Total Protein 6.2 L Albumin 3.4 L Globulin 2.8 Albumin/Globulin Ratio 1.2 Urine Color Urine Appearance Urine pH Ur Specific Blunt Urine Protein Urine Glucose (UA) Urine Ketones Urine Occult Blood Urine Nitrate Urine Bilirubin Urine Urobilinogen Ur Leukocyte Esterase Urine RBC Urine WBC Ur Squamous Epith Cells Urine Bacteria Hyaline Casts Ur Culture Indicated? 11/02/21 11/02/21 05:00 07:52 WBC RBC Hgb Hct MCV MCH MCHC RDW Plt Count Neut % (Auto) Lymph % (Auto) [place] % (Auto) Eos % (Auto) Baso % (Auto) Neut # (Auto) Lymph # (Auto) [place] # (Auto) Eos # (Auto) Baso # (Auto) ABG pH 7.46 H ABG pCO2 52.6 H ABG pO2 67 L ABG HCO3 38 H ABG Total CO2 39 H ABG O2 Saturation 94 L ABG Base Excess 14.0 H FiO2 60 Sodium Potassium Chloride Carbon Dioxide BUN Creatinine Estimated GFR BUN/Creatinine Ratio Glucose Calcium Phosphorus 3.9 Magnesium 2.3 Total Bilirubin AST ALT Alkaline Phosphatase Total Protein Albumin Globulin Albumin/Globulin Ratio Urine Color Urine Appearance Urine pH Ur Specific Blunt Urine Protein Urine Glucose (UA) Urine Ketones Urine Occult Blood Urine Nitrate Urine Bilirubin Urine Urobilinogen Ur Leukocyte Esterase Urine RBC Urine WBC Ur Squamous Epith Cells Urine Bacteria Hyaline Casts Ur Culture Indicated? Exam Vital Signs (past 8 hours): - 11/02/21 06:50 11/02/21 06:55 11/02/21 07:00 Temperature 97.9 F Pulse Rate 67 67 66 Respiratory Rate 20 20 20 Blood Pressure 107/56 L 103/59 L 103/58 L Pulse Oximetry 93 93 93 11/02/21 07:05 11/02/21 07:10 11/02/21 07:15 Temperature Pulse Rate 67 65 66 Respiratory Rate 20 20 20 Blood Pressure 106/55 L 103/59 L 98/57 L Pulse Oximetry 93 93 93 11/02/21 07:20 11/02/21 07:25 11/02/21 07:30 Temperature Pulse Rate 69 66 76 Respiratory Rate 20 20 20 Blood Pressure 98/56 L 98/55 L 102/56 L Pulse Oximetry 93 93 93 11/02/21 07:35 11/02/21 07:40 11/02/21 07:43 Temperature Pulse Rate 68 67 67 Respiratory Rate 20 20 20 Blood Pressure 105/58 L 96/54 L Pulse Oximetry 93 93 93 11/02/21 07:45 11/02/21 07:50 11/02/21 07:55 Temperature Pulse Rate 67 70 70 Respiratory Rate 20 20 21 Blood Pressure 100/58 L 102/56 L 102/55 L Pulse Oximetry 93 93 93 11/02/21 08:00 11/02/21 08:15 11/02/21 08:30 Temperature Pulse Rate 80 75 74 Respiratory Rate 20 20 20 Blood Pressure 109/57 L 101/53 L 98/52 L Pulse Oximetry 94 91 91 11/02/21 08:45 11/02/21 09:00 11/02/21 09:15 Temperature Pulse Rate 85 76 74 Respiratory Rate 20 20 20 Blood Pressure 105/55 L 105/57 L 99/52 L Pulse Oximetry 92 93 92 11/02/21 09:30 11/02/21 09:45 11/02/21 10:00 Temperature Pulse Rate 77 75 71 Respiratory Rate 20 20 20 Blood Pressure 105/57 L 106/64 96/52 L Pulse Oximetry 93 93 93 11/02/21 11:00 11/02/21 12:00 11/02/21 13:00 Temperature 97.9 F Pulse Rate 75 76 64 Respiratory Rate 20 20 20 Blood Pressure 105/59 L 100/58 L 93/52 L Pulse Oximetry 93 93 95 Fraction of Inspired Oxygen 60 Oxygen Delivery Method Mechanical Ventilation Oxygen Flow Rate 0 Quality TeleICU VTE Deep Vein Thrombosis/Pulmonary Embolism Present on Admission: Yes Assessment & Plan Assessment & Plan narrative: Acute on chronic hypoxic and hypercapnic respiratory failure COVID Dx 10/05/21 OHS COPD CHF Afib (not anticoagulated) DM Obesity Encephalopathy bradycardia Discussion: 70 yo woman with PMH of COPD, OHS, AFIB, DM, obesity,? recent? multiple hospitalizations recently for acute on chronic hypercapnic and hypoxic respiratory failure, and COVID Dx 10/05/21 admitted for acute on chronic hypercapnic respiratory failure. Differential Dx includes, PE, CHF, COPD exacerbation, and COVID PNA. Plan LABORER HEADING: -Continue propofol and fentanyl for goal RASS -2 -DC precedex given bradycardia -SAT daily CV:agree with getting ECHO to evaluate LV function -hold home antihypertensive -hold Diltiazem and metoprolol now given bradycardia Pulm: monitor abg and adjust vent as needed -PaO2 67 on 60% and PEEP 8 -CTA reviewed, no PE, B/L GGOs -start steroids for both possible COPD exacerbation and COVID Pneumonitis -Diuresis once BP tolerates ID: Sepsis 2/2 UTI -Resume zosyn -Follow C&S Heme: -DVT PPX GI: -Continue TF as per dietary, free H2O flushes 200 q4 -resume outpatient protonix FEN/Renal: stable renal function -diurese wiht bumex as tolerated by BP and Cr -monitor CHemistries and replace electrolytes as needed Endo: BG control with insulin, goal 140-180 Prophylaxis: Lovenox/heparin, Protonix Time Spent With Patient Critical Care time: I spent a total of [55] minutes of critical care time on this patient's care today; this time is exclusive of procedural time.
[2021-11-02] MEDS: DOPAMINE HCL IN DEXTROSE 5 % 400 MG/250 ML PLAST..BAG 17.516 MG IV (14:23)
--- NOTE | 2021-11-02 15:16 | DIET.PN1 ---
Dietary Progress Note RD Note: Pt with hypotensive episodes overnight, TF and protein modular held most of evening. Currently receiving TF 30mL/h c protein modulars added bid with no residuals. Pt remains on propofol 23mcg/kg/min providing >600kcals and 97g fat limiting TF rate necessitating protein modular to meet protein goal. Ht: 167.64 cm Wt: 168 kg BMI: 59.8 Last BM: () MNA: 10 Demetrius Score: 13 Diet: 11/01/21 Lunch Tube Feeding Diet Diet Modifications: TF Supplement type: Jevity 1.2 wan TF mode of delivery: Continuous Starting flow rate mL/hr: 20 Flow rate goal mL/hr: 30 Titration Schedule to reach Goal Rate: 5cc q6 hours Max total daily volume in mL: 2,000 Free fluid: 200 Free Water Frequency: Q6H Comment: feed Ensure Max down OG tube bid to meet pts protein needs Nutrition Percent Meal Consumed NPO 11/01/21 09:44 Type of Feeding Tube NG/OG 11/01/21 14:00 Labs: RBC 3.93 X10^6/uL (4.0-5.2) L 11/02/21 05:00 Hgb 11.5 g/dL (12.0-16.0) L 11/02/21 05:00 Hct 36.0 % (36-46) 11/02/21 05:00 Creatinine 0.87 mg/dL (0.52-1.04) 11/02/21 05:00 Lactate 0.8 mmol/L (0.7-2.1) 10/31/21 19:50 NT-Pro-B Natriuret Pep 784 pg/mL (<125) H 10/31/21 19:50 Interventions: Continue feeds as written. Monitoring/Evaluations: daily Electronically Signed by: Cynthia Santoyo 11/02/21 15:16 Clinical Dietitian [address] [id number]
[2021-11-02] MEDS: fentaNYL 1,000 MCG in DEXTROSE 5% IN WATER 230 ML 15 ML IV (17:00)
--- NOTE | 2021-11-02 19:28 | PC.NURSE ---
Patient's fentanyl drip was running at the correct rate but was documented in the wrong units, which caused the MAR to think the drip had run out before AM shift when in reality it did not finish until the documented start of the bag this nurse hung. Patient calm and alert throughout shift, able to squeeze hands on command and shake head. Large UO output, started on zosyn, still on dopamine, propofol, and fentanyl drips. Patient has a lot of thick secretions requiring frequent ET and oral suctioning. Wrist restraints, [id number]. Woods and tube feeding- tolerating well, no BM.
[2021-11-02] MEDS: ATORVASTATIN 20 MG TABLET 80 MG PO (22:12)
[2021-11-02] MEDS: INSULIN GLARGINE 100 UNIT/ML 3ML PEN 10 UNIT SUBCUT (22:13)
[2021-11-03] VITALS (44 sets, daily range): BP systolic 89–119; BP diastolic 51–90; PULSE 64–96; RESP 13–26; TEMP 36.1–36.8; O2SAT 88–98
[2021-11-03] MEDS: propofoL 1,000 MG/100 ML VIAL 22.113 MG IV ×3 (02:42→13:18)
[2021-11-03] MEDS: DOPAMINE HCL IN DEXTROSE 5 % 400 MG/250 ML PLAST..BAG 17.516 MG IV ×2 (04:14→18:03)
[2021-11-03 05:39] LABS: Add Manual Diff / Slide Review NO; Basophils Absolute Auto 0 /uL (0-100); Basophils Percent Auto 0.6 % (0-2); Eosinophils Absolute Auto 200 /uL (0-450); Eosinophils Percent Auto 3.3 % (2-4); Hematocrit 37.1 % (36-46); Hemoglobin 11.8 g/dL (12.0-16.0); Lymphocytes Absolute Auto 900 /uL (1100-4500); Lymphocytes Percent Auto 16.7 % (25-40); Mean Corpuscular HGB Conc 31.7 % (30-36); Mean Corpuscular Hemoglobin 29.2 PG (26-34); Mean Corpuscular Volume 92.1 fL (80-100); Monocytes Absolute Auto 600 /uL (0-900); Monocytes Percent Auto 10.6 % (3-14); Neutrophils Absolute Auto 3800 /uL (1500-7000); Neutrophils Percent Auto 68.8 % (50-75); Platelet Count 147 X10^3/uL (150-400); Red Blood Cell Count 4.03 X10^6/uL (4.0-5.2); Red Cell Distribution Width 18.1 % (11.6-14.8); White Blood Cell Count 5.5 X10^3/uL (4.5-11.0)
[2021-11-03 05:55] LABS: Magnesium 2.3 mg/dL (1.6-2.3); Phosphorous 4.3 mg/dL (2.8-4.1)
[2021-11-03 05:56] LABS: Alanine Aminotransferase 12 IU/L (<35); Albumin 3.3 g/dL (3.5-5.0); Albumin Globulin Ratio 1.1 (1.0-2.8); Alkaline Phosphatase 53 U/L (38-126); Aspartate Aminotransferase 25 IU/L (14-36); BUN Creatinine Ratio 27.5 (6-22); Bilirubin Total 0.6 mg/dL (0.2-1.3); Blood Urea Nitrogen 19 mg/dL (7-17); Calcium 8.8 mg/dL (8.4-10.2); Carbon Dioxide 34 mmol/L (22-32); Chloride 97 mmol/L (98-107); Estimated Glomerular Filt Rate > 60.0 mL/min (>60); Globulin 2.9 g/dL (1.7-4.1); Glucose 178 mg/dL (80-110); HEMOLYSIS 23 (0-50); Potassium 3.7 mmol/L (3.4-5.1); Sodium 137 mmol/L (137-145); Total Protein 6.2 g/dL (6.3-8.2)
[2021-11-03 06:09] LABS: PCO2 ABG 51.2 mmHg (35-45); pH ABG 7.41 (7.35-7.45)
[2021-11-03 06:10] LABS: HCO3 ABG 33 mmol/L (22-26); Oxygen Saturation ABG 97 % (95-100); PO2 ABG 91 mmHg (80-100); TCO2 ABG 34 mmol/L (21-31)
[2021-11-03 06:12] LABS: Fractionated Inspired Oxygen 60
[2021-11-03] MEDS: CHLORHEXIDINE GLUCONATE 15 ML CUP PO ×3 (06:25→17:52)
[2021-11-03] MEDS: PIPERACILLIN/TAZO 4.5 GM in SODIUM CHLORIDE 0.9% 100 ML 25 ML IV (06:25)
[2021-11-03] MEDS: INSULIN LISPRO 100 UNIT/ML 3ML VIAL SUBCUT ×3 (06:25→18:03)
[2021-11-03] MEDS: ALBUTEROL/IPRATROPIUM 3 ML AMPUL INH ×2 (08:30→19:53)
[2021-11-03] MEDS: fentaNYL 1,000 MCG in DEXTROSE 5% IN WATER 230 ML 18 ML IV (08:56)
[2021-11-03] MEDS: FAMOTIDINE 20 MG/2 ML VIAL IV (09:04)
[2021-11-03] MEDS: ASPIRIN EC 81 MG TABLET PO (09:05)
[2021-11-03] MEDS: ENOXAPARIN 40 MG/0.4 ML SYRINGE SUBCUT ×2 (09:18→21:10)
[2021-11-03] MEDS: NYSTATIN CREAM 30 GM 1 APPLIC TOP ×2 (09:19→21:13)
--- NOTE | 2021-11-03 09:51 | P.TELICUPN_ITS ---
Subjective Subjective :: This patient was seen via real time interactive two-way audiovisual telecommunication. Multidisciplinary round completed with hospitalist and RN at bedside. No acute issues overnight. Intubated 10/31. On PEEP 8 and FiO2 50%. On dopamine 3 mcg for bradycardia w/ shock. Sedated with fentanyl and propofol. Current RASS -2. ABG > 7.41/51/91. Current Medications Current Medications Medications: Home Medications aspirin 81 mg tablet,delayed release 81 mg PO DAILY 04/12/18 [History Confirmed 10/07/21] ursodiol 300 mg capsule 300 mg PO BID 04/12/18 [History Confirmed 10/07/21] gabapentin 300 mg capsule 300 mg PO TID 09/04/18 [History Confirmed 10/07/21] atorvastatin 80 mg tablet 80 mg PO BEDTIME 09/25/18 [History Confirmed 10/07/21] torsemide 20 mg tablet 1 tab PO QAM 09/25/18 [History Confirmed 10/07/21] cetirizine 10 mg tablet (Allergy Relief (cetirizine)) 1 tab PO DAILY 02/13/19 [History Confirmed 10/07/21] ferrous sulfate 325 mg (65 mg iron) tablet 1 tab PO QAM 02/13/19 [History Confirmed 10/07/21] acetaminophen 325 mg tablet 650 mg PO Q6H PRN 08/04/21 [History Confirmed 10/07/21] acetaminophen 500 mg tablet 1,000 mg PO BID 08/04/21 [History Confirmed 09/26 01/16] albuterol sulfate 90 mcg/actuation aerosol inhaler (Ventolin HFA) 2 puff INHALATION Q4H PRN #0 08/04/21 [History Confirmed 10/07/21] donepezil 10 mg tablet 20 mg PO QAM 08/04/21 [History Confirmed 10/07/21] fluticasone fur. 100 mcg-umeclid 62.5 mcg-vilant 25 mcg inhalat.powder 1 inh INHALATION DAILY 08/04/21 [History Confirmed 10/07/21] insulin glargine 100 unit/mL (3 mL) subcutaneous pen (Lantus Solostar U-100 Insulin) 9 unit SUBCUT BEDTIME 08/04/21 [History Confirmed 10/07/21] loperamide 2 mg tablet 2 mg PO Q24H PRN 08/04/21 [History Confirmed 10/07/21] metoprolol tartrate 25 mg tablet 12.5 mg PO BID 08/04/21 [History Confirmed 10/07/21] nystatin 100,000 unit/gram topical powder 100,000 unit TOPICAL BID 08/04/21 [History Confirmed 10/07/21] ondansetron HCl 4 mg tablet 4 mg PO Q6HR PRN 08/04/21 [History Confirmed 10/07/21] pantoprazole 20 mg tablet,delayed release 20 mg PO DAILY 08/04/21 [History Confirmed 10/07/21] potassium chloride 10 mEq tablet,extended release(part/cryst) (Klor-Con M) 20 meq PO DAILYCC 08/04/21 [History Confirmed 10/07/21] sennosides 8.6 mg tablet (senna) 17.2 mg PO Q12H PRN 08/04/21 [History Confirmed 10/07/21] diltiazem HCl 180 mg capsule,extended release 24 hr 180 mg PO DAILY 09/08/21 [History Confirmed 10/07/21] insulin lispro 100 unit/mL subcutaneous pen (Humalog KwikPen (U-100) Insulin) 1 sliding scale dose SUBCUT BIDAC 09/08/21 [History Confirmed 10/07/21] melatonin 1 mg tablet 1 mg PO BEDTIME PRN 09/08/21 [History Confirmed 10/07/21] polyethylene glycol 3350 17 gram oral powder packet (Miralax) 17 g PO BID PRN 09/08/21 [History Confirmed 10/07/21] vitamin A and D 1 applic TOPICAL BID 09/08/21 [History Confirmed 10/07/21] casirivimab 120 mg/mL-imdevimab 120 mg/mL intravenous solution (EUA) (REGEN-COV (EUA)) 10 ml SUBCUT PER PKG DIR 10/07/21 [History Confirmed 10/07/21] diphenhydramine HCl 25 mg capsule (Allergy (diphenhydramine)) 50 mg PO Q6H PRN 10/07/21 [History Confirmed 10/07/21] epinephrine 0.3 mg/0.3 mL injection syringe (Symjepi) See Rx Instructions .ROUTE .COMPLEX 10/07/21 [History Confirmed 10/07/21] prednisone 10 mg tablet 30 mg PO DAILY 10/07/21 [History Confirmed 10/07/21] prednisone 20 mg tablet 40 mg PO DAILY 10/07/21 [History Confirmed 10/07/21] Visit Medications (administered) Generic Name Dose Route Start Last Admin Trade Name Nawaf PRN Reason Stop Dose Admin Acetaminophen 650 mg 11/02/21 02:59 11/02/21 03:18 Acetaminophen 325 Mg Tablet PO 650 mg Q6HR PRN Administration Fever/Mild Pain (1-3) Albuterol/Ipratropium 3 ml 11/01/21 08:00 11/03/21 08:30 Albuterol/Ipratropium 3 Ml Ampul INH 3 ml RTBID LORNA Administration Aspirin 81 mg 11/01/21 09:00 11/03/21 09:05 Aspirin Ec 81 Mg Tablet PO 81 mg DAILY LORNA Administration Atorvastatin Calcium 80 mg 11/01/21 21:00 11/02/21 22:12 Atorvastatin 20 Mg Tablet PO 80 mg BEDTIME LORNA Administration Chlorhexidine Gluconate 15 ml 11/01/21 06:00 11/03/21 06:25 Chlorhexidine Gluconate 15 Ml Cup PO 15 ml Q6HR LORNA Administration Enoxaparin Sodium 40 mg 11/01/21 21:00 11/03/21 09:18 Enoxaparin 40 Mg/0.4 Ml Syringe SUBCUT 40 mg BID LORNA Administration Famotidine 20 mg 11/02/21 09:00 11/03/21 09:04 Famotidine 20 Mg/2 Ml Vial IV 20 mg DAILY LORNA Administration Fentanyl 50 mcg 11/01/21 02:04 11/01/21 16:58 Fentanyl 100 Mcg/2 Ml Inj IV 50 mcg Q1H PRN Administration Agitation Heparin Sodium (Porcine) 50 unit 11/01/21 09:00 11/03/21 09:19 Heparin Flush (Cl/Picc/Mid-Line) 50 Unit/5 Ml Syringe IV 50 unit BID LORNA Administration dexmedeTOMIDine in 0.9 % NaCL 400 mcg in 100 mls @ 7.371 mls/hr 10/31/21 23:30 11/02/21 03:09 Precedex IV 0 mcg/kg/hr TITRATE LORNA 0 mls/hr Titration Protocol 0.2 MCG/KG/HR Propofol 1,000 mg in 100 mls @ 4.423 mls/hr 11/01/21 02:15 11/03/21 06:53 Propofol IV 25 mcg/kg/min TITRATE LORNA 22.113 mls/hr Administration Protocol 5 MCG/KG/MIN Fentanyl 1,000 mcg/ Dextrose 250 mls @ 0 mls/hr 11/01/21 20:30 11/03/21 08:56 IV 1.2 mcg/min TITRATE LORNA 18 mls/hr Administration Protocol Per Protocol Norepinephrine Bitartrate 4 mg 254 mls @ 30.48 mls/hr 11/02/21 00:45 11/02/21 03:43 / Dextrose IV 0 mcg/min TITRATE LORNA 0 mls/hr Titration Protocol 8 MCG/MIN Dopamine HCl/Dextrose 400 mg in 250 mls @ 5.839 mls/hr 11/02/21 02:00 11/03/21 04:14 Dopamine 400 Mg-D5w 250 Ml IV 3 mcg/kg/min TITRATE LORNA 17.516 mls/hr Administration Protocol 1 MCG/KG/MIN Piperacillin Sod/Tazobactam 100 mls @ 25 mls/hr 11/02/21 13:30 11/03/21 06:25 Sod 4.5 gm/ Sodium Chloride IV 25 mls/hr Q8H LORNA Administration Insulin Glargine 10 unit 11/01/21 21:00 11/02/21 22:13 Insulin Glargine 100 Unit/Ml 3ml Pen SUBCUT 10 unit BEDTIME LORNA Administration Insulin Human Lispro 0 unit 11/01/21 12:00 11/03/21 06:25 Insulin Lispro 100 Unit/Ml 3ml Vial SUBCUT 1 unit Q6H LORNA Administration Protocol Nystatin 1 applic 11/01/21 09:00 11/03/21 09:19 Nystatin Cream 30 Gm TOP 1 applic BID LORNA Administration Objective Ventilator Parameters: Ventilator Settings FiO2 60 RT Vent Frequency 20 Ventilator Tidal Volume 390 Exhaled Positive End Expiratory 8 Pressure Inspiratory Phase Time 0.80 I:E Ratio 1:2.3 Patient Position HOB >= 30 degrees Labs Result Diagrams: 11/03/21 04:40 11/03/21 04:40 Labs: Laboratory Results - last 24 hr 11/03/21 11/03/21 11/03/21 04:40 04:40 04:40 WBC 5.5 RBC 4.03 Hgb 11.8 L Hct 37.1 MCV 92.1 MCH 29.2 MCHC 31.7 RDW 18.1 H Plt Count 147 L Neut % (Auto) 68.8 Lymph % (Auto) 16.7 L Zavala % (Auto) 10.6 Eos % (Auto) 3.3 Baso % (Auto) 0.6 Neut # (Auto) 3800 Lymph # (Auto) 900 L Zavala # (Auto) 600 Eos # (Auto) 200 Baso # (Auto) 0 ABG pH ABG pCO2 ABG pO2 ABG HCO3 ABG Total CO2 ABG O2 Saturation ABG Base Excess FiO2 Sodium 137 Potassium 3.7 Chloride 97 L Carbon Dioxide 34 H BUN 19 H Creatinine 0.69 Estimated GFR > 60.0 BUN/Creatinine Ratio 27.5 H Glucose 178 H Calcium 8.8 Phosphorus 4.3 H Magnesium 2.3 Total Bilirubin 0.6 AST 25 ALT 12 Alkaline Phosphatase 53 Total Protein 6.2 L Albumin 3.3 L Globulin 2.9 Albumin/Globulin Ratio 1.1 11/03/21 05:20 WBC RBC Hgb Hct MCV MCH MCHC RDW Plt Count Neut % (Auto) Lymph % (Auto) Zavala % (Auto) Eos % (Auto) Baso % (Auto) Neut # (Auto) Lymph # (Auto) Zavala # (Auto) Eos # (Auto) Baso # (Auto) ABG pH 7.41 ABG pCO2 51.2 H ABG pO2 91 ABG HCO3 33 H ABG Total CO2 34 H ABG O2 Saturation 97 ABG Base Excess 8.0 H FiO2 60 Sodium Potassium Chloride Carbon Dioxide BUN Creatinine Estimated GFR BUN/Creatinine Ratio Glucose Calcium Phosphorus Magnesium Total Bilirubin AST ALT Alkaline Phosphatase Total Protein Albumin Globulin Albumin/Globulin Ratio Exam Vital Signs (past 8 hours): - 11/03/21 02:00 11/03/21 03:00 11/03/21 04:00 Temperature 97.6 F Pulse Rate 78 71 71 Respiratory Rate 20 20 20 Blood Pressure 105/65 99/64 Pulse Oximetry 96 97 97 11/03/21 05:00 11/03/21 06:00 Temperature Pulse Rate 70 73 Respiratory Rate 20 20 Blood Pressure 101/90 113/74 Pulse Oximetry 97 98 Fraction of Inspired Oxygen 60 Oxygen Delivery Method Mechanical Ventilation Oxygen Flow Rate 60 Narrative Exam Narrative: Intubated and sedated Quality TeleICU VTE Deep Vein Thrombosis/Pulmonary Embolism Present on Admission: Yes Stress Ulcer Stress ulcer prophylaxis: yes Assessment & Plan Assessment & Plan narrative: NEURO: # Acute encephalopathy -- Currently sedated w/ fentanyl and propofol -- RASS goal -1 to +1 -- Check SAT -- Early mobility as tolerated RESP: # Acute hypoxemia respiratory failure -- Secondary to GNR PNA -- On PEEP 8 and FiO2 50% -- Cont abx pending susceptibility -- Check SAT and SBT -- If passed SAT and SBT then will extubate patient to BiPAP -- HOB elevation -- Aspiration precaution -- Goal SpO2 > 88% # PATRICK/OHS -- Noncompliant with NIVVP therapy -- Encourage BiPAP usage nightly CVS: # Septic shock -- Secondary to UTI and PNA -- On dopamine 3 mcg -- Cont abx as below -- Added stress dose steroids -- MAP goal > 65 ID: # PNA -- Resp cx + GNR -- Pending identification and susceptibility -- Cont cefepime and follow up cx data # E. Coli UTI -- On cefepime ENDO: -- Goal BS < 180 Case d/w hospitalist and RN at bedside. Time Spent With Patient Critical Care time: I spent a total of [] minutes of critical care time on this patient's care today; this time is exclusive of procedural time.
[2021-11-03] MEDS: cefTRIAXone 1,000 MG in SODIUM CHLORIDE 0.9% 100 ML 200 ML IV (10:58)
[2021-11-03] MEDS: BUMETANIDE 1 MG/4 ML VIAL IV ×2 (10:58→21:10)
[2021-11-03] MEDS: CEFEPIME 2 GM in SODIUM CHLORIDE 0.9% 100 ML 200 ML IV (12:35)
[2021-11-03] MEDS: HYDROCORTISONE 100 MG/2 ML VIAL 50 MG IV ×2 (12:36→17:52)
--- NOTE | 2021-11-03 13:55 | PM.PN.1 ---
Subjective Subjective Date Patient Seen: 11/03/21 Time Patient Seen: 08:00 Interval history: Today she remains intubated and sedated. Exam Vital Signs (past 8 hours): - 11/03/21 06:00 11/03/21 07:00 11/03/21 08:00 Temperature 98.2 F Pulse Rate 73 77 69 Respiratory Rate 20 20 20 Blood Pressure 113/74 104/60 106/58 L Pulse Oximetry 98 97 95 11/03/21 09:00 11/03/21 10:00 11/03/21 11:00 Temperature Pulse Rate 73 77 77 Respiratory Rate 20 20 20 Blood Pressure 105/58 L 108/63 113/58 L Pulse Oximetry 94 94 95 11/03/21 12:00 11/03/21 12:15 11/03/21 13:00 Temperature 98.0 F Pulse Rate 77 96 H Respiratory Rate 23 26 H Blood Pressure Pulse Oximetry 96 94 95 11/03/21 13:22 Temperature Pulse Rate 83 Respiratory Rate 20 Blood Pressure 108/64 Pulse Oximetry 89 L Fraction of Inspired Oxygen 60 Oxygen Delivery Method Mechanical Ventilation Oxygen Flow Rate 60 Narrative Exam Narrative: GEN: intubated, sedated CV: irregular PULM: decreased breath sound bilaterally, rhonchorous ABD: soft, nontender, nondistended EXT: warm and well perfused, 1+ edema NEURO: sedated Objective Labs Result Diagrams: 11/03/21 04:40 11/03/21 04:40 Labs: Laboratory Results - last 24 hr 11/03/21 11/03/21 11/03/21 04:40 04:40 04:40 WBC 5.5 RBC 4.03 Hgb 11.8 L Hct 37.1 MCV 92.1 MCH 29.2 MCHC 31.7 RDW 18.1 H Plt Count 147 L Neut % (Auto) 68.8 Lymph % (Auto) 16.7 L Cross % (Auto) 10.6 Eos % (Auto) 3.3 Baso % (Auto) 0.6 Neut # (Auto) 3800 Lymph # (Auto) 900 L Cross # (Auto) 600 Eos # (Auto) 200 Baso # (Auto) 0 ABG pH ABG pCO2 ABG pO2 ABG HCO3 ABG Total CO2 ABG O2 Saturation ABG Base Excess FiO2 Sodium 137 Potassium 3.7 Chloride 97 L Carbon Dioxide 34 H BUN 19 H Creatinine 0.69 Estimated GFR > 60.0 BUN/Creatinine Ratio 27.5 H Glucose 178 H Calcium 8.8 Phosphorus 4.3 H Magnesium 2.3 Total Bilirubin 0.6 AST 25 ALT 12 Alkaline Phosphatase 53 Total Protein 6.2 L Albumin 3.3 L Globulin 2.9 Albumin/Globulin Ratio 1.1 11/03/21 05:20 WBC RBC Hgb Hct MCV MCH MCHC RDW Plt Count Neut % (Auto) Lymph % (Auto) Cross % (Auto) Eos % (Auto) Baso % (Auto) Neut # (Auto) Lymph # (Auto) Cross # (Auto) Eos # (Auto) Baso # (Auto) ABG pH 7.41 ABG pCO2 51.2 H ABG pO2 91 ABG HCO3 33 H ABG Total CO2 34 H ABG O2 Saturation 97 ABG Base Excess 8.0 H FiO2 60 Sodium Potassium Chloride Carbon Dioxide BUN Creatinine Estimated GFR BUN/Creatinine Ratio Glucose Calcium Phosphorus Magnesium Total Bilirubin AST ALT Alkaline Phosphatase Total Protein Albumin Globulin Albumin/Globulin Ratio [facility] Medical History Atrial fibrillation Cholelithiasis Chronic respiratory failure with hypoxia and hypercapnia Depression Diabetes Fracture of left ankle Hyperlipidemia Hypertension Inguinal hernia Iron deficiency anemia Lumbar degenerative disc disease Morbid obesity Obesity hypoventilation syndrome Osteoarthritis Paroxysmal atrial fibrillation Pneumococcal meningitis Prolapsed bladder Surgical History History of abdominoplasty History of gastric bypass Family History Mother Heart disease Father No problems noted. Social History household members: family, children and none Smoking Status: Former smoker alcohol intake: former additional social history: lives alone Assessment & Plan Assessment & Plan narrative: 70-year-old female with chronic hypoxic hypercapnic respiratory failure, COPD, atrial fibrillation, type 2 diabetes, hypertension, hyperlipidemia, morbid obesity, recent history of COVID-19 pneumonia in September, who was admitted to the hospital for: 1. Acute on chronic hypercapnic, hypoxic respiratory failure -Patient required intubation on October 31 after she did not improve on BiPAP trial -Imaging reveals chronic ground-glass opacity, possibly COPD vs CHF -Patient with probable obesity hypoventilation syndrome -CT PE does not show PE, or evidence of pneumonia, and consistent with evidence of pulmonary hypertension -Will diurese with IV Bumex 1 mg bid for today, given likely right-sided volume overload -ECHO EF 45-55%, right side of heart difficult to visualize -no antibiotics for now -continue steroids, dexamethasone -COVID negative -continue dopamine for bradycardia -spontaneous wake trial, breathing trial daily 2. Acute metabolic encephalopathy - Likely occurred due to CO2 narcosis on admission, CO2 improving with ventilation 3. Chronic persistent atrial fibrillation, as per chart -Home negative chronotropic agents currently on hold, given patient sedated, and HR/BP on the lower side 4. Hypertension -hold chronotropic agents 5. Hyperlipidemia -Continue home atorvastatin 6. Insulin-dependent DM II -Will continue her usual home insulin regimen -Insulin sliding scale -Will continue home aspirin 81 mg daily 7. GERD -Continue PPI with IV famotidine, given that she's intubated, too 8. Dementia, reported per records -Continue donepezil Time Spent With Patient Critical Care time: I spent a total of [] minutes of critical care time on this patient's care today; this time is exclusive of procedural time. Quality VTE Deep Vein Thrombosis/Pulmonary Embolism Present on Admission: Yes
--- NOTE | 2021-11-03 15:20 | CM.DPC ---
DCP Cont: Per MD, pt remains intubated but may attempt breathing trial but anticipating pt likely not quite ready to attempt extubation. Pt is DNR but family had wanted intubation. Pt typically uses 3-4LO2 at baseline. Pt tested positive for COVID on Oct 08, 2021 and currently testing COVID negative. SW spoke to RN at [facility] and provided an updated and confirmed that pt is typically a eelna transfer at baseline and can pull herself up with her arms to assist and has a power chair and pt has stated that her goal is to just remain in bed the rest of my days. [facility] declined having clinicals faxed yet and want to wait until after pt extubated to determine needs and review notes. Plan: SW to follow closely for possible attempt at breathing trial/extubation in the next 24-48 hours and then determine SNF vs return to [facility] pending progress and needs. EMANUEL Guerin
[2021-11-03] MEDS: propofoL 1,000 MG/100 ML VIAL 26.535 MG IV (16:13)
--- NOTE | 2021-11-03 18:32 | PC.NURSE ---
Pt was placed on SBT ~1215 and tolerated for about 45 minutes. At the end of SBT, pt began to show signs of fatigue and SPO2 trending down to 87%. RT placed pt back on previous ventilator settings ~1300 at which time pt experienced a slow/steady drop in O2 sat to 85%. RT increased FIO2 to 60%. Repositioned pt and increased sedation. Attempted to wean dopamine to 2 mcg/kg/min which resulted in MAP 89/53 (65). Increased back to 3 mcg/kg/min. Maintaining soft wrist restraints for airway protection.
[2021-11-03] MEDS: propofoL 1,000 MG/100 ML VIAL 27.99 MG IV ×2 (19:13→23:00)
[2021-11-03] MEDS: CEFEPIME 2 GM in SODIUM CHLORIDE 0.9% 100 ML IV (21:09)
[2021-11-03] MEDS: ATORVASTATIN 20 MG TABLET 80 MG PO (21:10)
[2021-11-03] MEDS: fentaNYL 1,000 MCG in DEXTROSE 5% IN WATER 230 ML 22.5 ML IV (21:12)
[2021-11-03] MEDS: INSULIN GLARGINE 100 UNIT/ML 3ML PEN 10 UNIT SUBCUT (21:12)
[2021-11-04] VITALS (44 sets, daily range): BP systolic 89–127; BP diastolic 50–72; PULSE 62–104; RESP 20–30; TEMP 36.9–37.9; O2SAT 90–97
[2021-11-04] MEDS: CHLORHEXIDINE GLUCONATE 15 ML CUP PO ×4 (00:26→17:22)
[2021-11-04] MEDS: HYDROCORTISONE 100 MG/2 ML VIAL 50 MG IV ×4 (00:26→17:21)
[2021-11-04] MEDS: INSULIN LISPRO 100 UNIT/ML 3ML VIAL SUBCUT ×4 (00:27→17:28)
[2021-11-04] MEDS: propofoL 1,000 MG/100 ML VIAL 27.99 MG IV ×2 (02:54→05:59)
[2021-11-04] MEDS: CEFEPIME 2 GM in SODIUM CHLORIDE 0.9% 100 ML 200 ML IV ×3 (04:19→20:31)
[2021-11-04 05:34] LABS: Fractionated Inspired Oxygen 60; HCO3 ABG 32 mmol/L (22-26); Oxygen Saturation ABG 96 % (95-100); PCO2 ABG 51.8 mmHg (35-45); PO2 ABG 81 mmHg (80-100); TCO2 ABG 34 mmol/L (21-31)
[2021-11-04 07:32] LABS: Add Manual Diff / Slide Review NO; Basophils Absolute Auto 0 /uL (0-100); Basophils Percent Auto 0.4 % (0-2); Eosinophils Absolute Auto 100 /uL (0-450); Eosinophils Percent Auto 0.8 % (2-4); Hematocrit 35.4 % (36-46); Hemoglobin 11.3 g/dL (12.0-16.0); Lymphocytes Absolute Auto 400 /uL (1100-4500); Lymphocytes Percent Auto 5.6 % (25-40); Mean Corpuscular Hemoglobin 29.3 PG (26-34); Mean Corpuscular Volume 91.6 fL (80-100); Monocytes Absolute Auto 600 /uL (0-900); Monocytes Percent Auto 8.3 % (3-14); Neutrophils Absolute Auto 6100 /uL (1500-7000); Neutrophils Percent Auto 84.9 % (50-75); Platelet Count 165 X10^3/uL (150-400); Red Blood Cell Count 3.86 X10^6/uL (4.0-5.2); Red Cell Distribution Width 17.8 % (11.6-14.8); White Blood Cell Count 7.2 X10^3/uL (4.5-11.0)
[2021-11-04 07:45] LABS: Alanine Aminotransferase 11 IU/L (<35); Albumin 3.5 g/dL (3.5-5.0); Albumin Globulin Ratio 1.3 (1.0-2.8); Alkaline Phosphatase 51 U/L (38-126); Aspartate Aminotransferase 22 IU/L (14-36); BUN Creatinine Ratio 36.4 (6-22); Bilirubin Total 0.5 mg/dL (0.2-1.3); Blood Urea Nitrogen 24 mg/dL (7-17); Calcium 8.7 mg/dL (8.4-10.2); Carbon Dioxide 32 mmol/L (22-32); Chloride 96 mmol/L (98-107); Estimated Glomerular Filt Rate > 60.0 mL/min (>60); Globulin 2.8 g/dL (1.7-4.1); Glucose 227 mg/dL (80-110); HEMOLYSIS 26 (0-50); Potassium 3.9 mmol/L (3.4-5.1); Sodium 135 mmol/L (137-145); Total Protein 6.3 g/dL (6.3-8.2)
[2021-11-04] MEDS: DOPAMINE HCL IN DEXTROSE 5 % 400 MG/250 ML PLAST..BAG 11.678 MG IV (08:34)
[2021-11-04] MEDS: ALBUTEROL/IPRATROPIUM 3 ML AMPUL INH ×2 (08:46→19:27)
[2021-11-04] MEDS: ENOXAPARIN 40 MG/0.4 ML SYRINGE SUBCUT ×2 (09:03→21:47)
[2021-11-04] MEDS: ASPIRIN EC 81 MG TABLET PO (09:03)
[2021-11-04] MEDS: FAMOTIDINE 20 MG/2 ML VIAL IV (09:04)
[2021-11-04] MEDS: NYSTATIN CREAM 30 GM 1 APPLIC TOP ×2 (09:04→21:48)
[2021-11-04] MEDS: BUMETANIDE 1 MG/4 ML VIAL IV (09:04)
--- NOTE | 2021-11-04 09:48 | P.TELICUPN_ITS ---
Subjective Subjective :: This patient was seen via real time interactive two-way audiovisual telecommunication. Failed SBT due to worsening hypoxemia on PS trial. On bumex BID. No acute issues overnight. Dopamine down to 1 mcg. Sedated with propofol and fentanyl. Current RASS 0. On PEEP 8 and FiO2 50%. ABG -> 7.4 Current Medications Current Medications Medications: Home Medications aspirin 81 mg tablet,delayed release 81 mg PO DAILY 04/12/18 [History Confirmed 11/03/21] ursodiol 300 mg capsule 300 mg PO BID 04/12/18 [History Confirmed 11/03/21] gabapentin 300 mg capsule 300 mg PO TID 09/04/18 [History Confirmed 11/03/21] atorvastatin 80 mg tablet 80 mg PO BEDTIME 09/25/18 [History Confirmed 11/03/21] torsemide 20 mg tablet 1 tab PO QAM 09/25/18 [History Confirmed 11/03/21] cetirizine 10 mg tablet (Allergy Relief (cetirizine)) 1 tab PO DAILY 02/13/19 [History Confirmed 11/03/21] ferrous sulfate 325 mg (65 mg iron) tablet 1 tab PO QAM 02/13/19 [History Confirmed 11/03/21] acetaminophen 325 mg tablet 650 mg PO Q6H PRN 08/04/21 [History Confirmed 11/03/21] acetaminophen 500 mg tablet 1,000 mg PO BID 08/04/21 [History Confirmed 11/03/21] donepezil 10 mg tablet 20 mg PO QAM 08/04/21 [History Confirmed 11/03/21] fluticasone fur. 100 mcg-umeclid 62.5 mcg-vilant 25 mcg inhalat.powder 1 inh INHALATION DAILY 08/04/21 [History Confirmed 11/03/21] insulin glargine 100 unit/mL (3 mL) subcutaneous pen (Lantus Solostar U-100 Insulin) 9 unit SUBCUT BEDTIME 08/04/21 [History Confirmed 11/03/21] loperamide 2 mg tablet 2 mg PO Q24H PRN 08/04/21 [History Confirmed 11/03/21] metoprolol tartrate 25 mg tablet 12.5 mg PO BID 08/04/21 [History Confirmed 11/03/21] nystatin 100,000 unit/gram topical powder 100,000 unit TOPICAL BID 08/04/21 [History Confirmed 11/03/21] ondansetron HCl 4 mg tablet 4 mg PO Q6HR PRN 08/04/21 [History Confirmed 11/03/21] pantoprazole 20 mg tablet,delayed release 20 mg PO DAILY 08/04/21 [History Confirmed 11/03/21] potassium chloride 10 mEq tablet,extended release(part/cryst) (Klor-Con M) 20 meq PO DAILYCC 08/04/21 [History Confirmed 11/03/21] sennosides 8.6 mg tablet (senna) 17.2 mg PO Q12H PRN 08/04/21 [History Confirmed 11/03/21] diltiazem HCl 180 mg capsule,extended release 24 hr 180 mg PO DAILY 09/08/21 [History Confirmed 11/03/21] insulin lispro 100 unit/mL subcutaneous pen (Humalog KwikPen (U-100) Insulin) 1 sliding scale dose SUBCUT BIDAC 09/08/21 [History Confirmed 11/03/21] melatonin 1 mg tablet 1 mg PO BEDTIME PRN 09/08/21 [History Confirmed 11/03/21] polyethylene glycol 3350 17 gram oral powder packet (Miralax) 17 g PO BID PRN 09/08/21 [History Confirmed 11/03/21] vitamin A and D 1 applic TOPICAL BID 09/08/21 [History Confirmed 11/03/21] diphenhydramine HCl 25 mg capsule (Allergy (diphenhydramine)) 50 mg PO Q6H PRN 10/07/21 [History Confirmed 11/03/21] albuterol sulfate 90 mcg/actuation aerosol inhaler (Ventolin HFA) 2 puff INH ALATION Q4HR PRN 11/03/21 [History Confirmed 11/03/21] Visit Medications (administered) Generic Name Dose Route Start Last Admin Trade Name Freq PRN Reason Stop Dose Admin Acetaminophen 650 mg 11/02/21 02:59 11/02/21 03:18 Acetaminophen 325 Mg Tablet PO 650 mg Q6HR PRN Administration Fever/Mild Pain (1-3) Albuterol/Ipratropium 3 ml 11/01/21 08:00 11/04/21 08:46 Albuterol/Ipratropium 3 Ml Ampul INH 3 ml RTBID LORNA Administration Aspirin 81 mg 11/01/21 09:00 11/04/21 09:03 Aspirin Ec 81 Mg Tablet PO 81 mg DAILY LORNA Administration Atorvastatin Calcium 80 mg 11/01/21 21:00 11/03/21 21:10 Atorvastatin 20 Mg Tablet PO 80 mg BEDTIME LORNA Administration Bumetanide 1 mg 11/03/21 10:00 11/04/21 09:04 Bumetanide 1 Mg/4 Ml Vial IV 1 mg BID LORNA Administration Chlorhexidine Gluconate 15 ml 11/01/21 06:00 11/04/21 05:59 Chlorhexidine Gluconate 15 Ml Cup PO 15 ml Q6HR LORNA Administration Enoxaparin Sodium 40 mg 11/01/21 21:00 11/04/21 09:03 Enoxaparin 40 Mg/0.4 Ml Syringe SUBCUT 40 mg BID LORNA Administration Famotidine 20 mg 11/02/21 09:00 11/04/21 09:04 Famotidine 20 Mg/2 Ml Vial IV 20 mg DAILY LORNA Administration Fentanyl 50 mcg 11/01/21 02:04 11/01/21 16:58 Fentanyl 100 Mcg/2 Ml Inj IV 50 mcg Q1H PRN Administration Agitation Heparin Sodium (Porcine) 50 unit 11/01/21 09:00 11/04/21 09:04 Heparin Flush (Cl/Picc/Mid-Line) 50 Unit/5 Ml Syringe IV Not Given BID LORNA Hydrocortisone 50 mg 11/03/21 12:00 11/04/21 05:59 Hydrocortisone 100 Mg/2 Ml Vial IV 50 mg Q6HR LORNA Administration Fentanyl 1,000 mcg/ Dextrose 250 mls @ 0 mls/hr 11/01/21 20:30 11/04/21 07:30 IV 1 mcg/min TITRATE LORNA 15 mls/hr Titration Protocol Per Protocol Dopamine HCl/Dextrose 400 mg in 250 mls @ 5.839 mls/hr 11/02/21 02:00 11/04/21 08:34 Dopamine 400 Mg-D5w 250 Ml IV 2 mcg/kg/min TITRATE LORNA 11.678 mls/hr Administration Protocol 1 MCG/KG/MIN Cefepime HCl 2 gm/ Sodium 100 mls @ 200 mls/hr 11/03/21 12:00 11/04/21 06:05 Chloride IV Infused Q8H LORNA Infusion Propofol 1,000 mg in 100 mls @ 4.665 mls/hr 11/03/21 18:30 11/04/21 07:30 Propofol IV 20 mcg/kg/min TITRATE LORNA 18.66 mls/hr Titration Protocol 5 MCG/KG/MIN Insulin Glargine 10 unit 11/01/21 21:00 11/03/21 21:12 Insulin Glargine 100 Unit/Ml 3ml Pen SUBCUT 10 unit BEDTIME LORNA Administration Insulin Human Lispro 0 unit 11/01/21 12:00 11/04/21 06:03 Insulin Lispro 100 Unit/Ml 3ml Vial SUBCUT 2 unit Q6H LORNA Administration Protocol Nystatin 1 applic 11/01/21 09:00 11/04/21 09:04 Nystatin Cream 30 Gm TOP 1 applic BID LORNA Administration Objective Ventilator Parameters: Ventilator Settings FiO2 60 RT Vent Frequency 20 Ventilator Tidal Volume 390 Exhaled Positive End Expiratory 8 Pressure Ventilator Pressure Support 10 Inspiratory Phase Time 0.9 I:E Ratio 1:2.3 Patient Position HOB >= 30 degrees Labs Result Diagrams: 11/04/21 07:01 11/04/21 07:01 Labs: Laboratory Results - last 24 hr 11/04/21 11/04/21 11/04/21 05:20 07:01 07:01 WBC 7.2 RBC 3.86 L Hgb 11.3 L Hct 35.4 L MCV 91.6 MCH 29.3 MCHC 32.0 RDW 17.8 H Plt Count 165 Neut % (Auto) 84.9 H Lymph % (Auto) 5.6 L [place] % (Auto) 8.3 Eos % (Auto) 0.8 L Baso % (Auto) 0.4 Neut # (Auto) 6100 Lymph # (Auto) 400 L [place] # (Auto) 600 Eos # (Auto) 100 Baso # (Auto) 0 ABG pH 7.40 ABG pCO2 51.8 H ABG pO2 81 ABG HCO3 32 H ABG Total CO2 34 H ABG O2 Saturation 96 ABG Base Excess 7.0 H FiO2 60 Sodium 135 L Potassium 3.9 Chloride 96 L Carbon Dioxide 32 BUN 24 H Creatinine 0.66 Estimated GFR > 60.0 BUN/Creatinine Ratio 36.4 H Glucose 227 H Calcium 8.7 Total Bilirubin 0.5 AST 22 ALT 11 Alkaline Phosphatase 51 Total Protein 6.3 Albumin 3.5 Globulin 2.8 Albumin/Globulin Ratio 1.3 Exam Vital Signs (past 8 hours): - 11/04/21 02:00 11/04/21 02:30 11/04/21 03:00 Temperature 98.4 F Pulse Rate 67 79 75 Respiratory Rate 20 22 20 Blood Pressure 96/54 L 111/62 Pulse Oximetry 93 91 92 11/04/21 03:30 11/04/21 04:00 11/04/21 04:30 Temperature Pulse Rate 72 76 74 Respiratory Rate 20 20 20 Blood Pressure 109/61 Pulse Oximetry 92 93 94 11/04/21 05:00 11/04/21 05:30 11/04/21 06:00 Temperature 99.0 F Pulse Rate 74 80 75 Respiratory Rate 20 20 20 Blood Pressure 109/62 108/61 Pulse Oximetry 94 94 94 11/04/21 07:00 11/04/21 08:00 11/04/21 09:00 Temperature 99.3 F Pulse Rate 70 68 77 Respiratory Rate 20 20 20 Blood Pressure 106/68 107/59 L 105/55 L Pulse Oximetry 94 93 93 Fraction of Inspired Oxygen 60 Oxygen Delivery Method Mechanical Ventilation Oxygen Flow Rate 0 Quality TeleICU VTE Deep Vein Thrombosis/Pulmonary Embolism Present on Admission: Yes Assessment & Plan Assessment & Plan narrative: NEURO: # Acute encephalopathy -- On fentanyl and propofol -- RASS goal -1 to +1 -- Early mobility as tolerated RESP: # Acute hypoxemia respiratory failure -- Secondary to GNR PNA -- On PEEP 8 and FiO2 50% -- Cont abx pending susceptibility -- Passed SAT and will check SBT -- If passed SAT and SBT then will extubate patient to BiPAP? -- Per RT, minimum secretions -- Will cont gentle diuresis to seek net negative fluid balance -- HOB elevation -- Aspiration precaution -- Goal SpO2 > 88% # PATRICK/OHS -- Noncompliant with NIVVP therapy -- Encourage BiPAP usage nightly when extubated CVS: # Septic shock -- Secondary to UTI and PNA -- On dopamine 1 mcg -- Cont abx as below -- On stress dose steroids -- MAP goal > 65 ID: # PNA? -- Resp cx + GNR -- Pending identification and susceptibility -- Cont cefepime and follow up cx data # E. Coli UTI -- On cefepime ENDO: -- Goal BS < 180 Time Spent With Patient Critical Care time: I spent a total of [] minutes of critical care time on this patient's care today; this time is exclusive of procedural time.
--- NOTE | 2021-11-04 09:52 | DI.RAD.S_ITS ---
PROCEDURE: XR CHEST 1V INDICATIONS: intubated TECHNIQUE: One view of the chest was acquired. COMPARISON: [facility], CT, CT ANGIO CHEST PE PROTOCOL, 11/01/2021, 1:12. [facility], CR, XR CHEST 1V, 11/01/2021, 0:49. FINDINGS: Surgical changes and devices: An endotracheal tube is seen, with the tip 6 cm above the afua. A gastric tube is seen, with the tip seen a few cm below the diaphragm. Lungs and pleura: Low lung volumes are noted. This causes a crowded appearance to the lung markings and limits evaluation. Mild generalized interstitial prominence can be seen. No large pneumothorax or large pleural effusions are seen. Mediastinum: The cardiac contours are is moderately enlarged. The aorta demonstrates calcification and tortuosity. Bones and chest wall: No suspicious bony lesions. Age-appropriate bony degenerative changes are seen. Overlying soft tissues appear unremarkable. IMPRESSION: The tip of the endotracheal tube is seen 6 cm above the afua. The tip of the gastric tube is seen a few cm below the level of the diaphragm. Cardiomegaly and interstitial prominence. CHF is suspected. Dictated by: Saulo Tyson M.D. on 11/04/2021 at 9:28 Approved by: Saulo Tyson M.D. on 11/04/2021 at 9:31
--- NOTE | 2021-11-04 11:29 | P.PN_ITS ---
Subjective Subjective Date Patient Seen: 11/04/21 Time Patient Seen: 08:00 Interval history: She remains intubated and sedated. She can follow commands. Extubation was attempted yesterday but she desat during spontaneous breathing trial. Exam Vital Signs (past 8 hours): - 11/04/21 03:30 11/04/21 04:00 11/04/21 04:30 Temperature Pulse Rate 72 76 74 Respiratory Rate 20 20 20 Blood Pressure 109/61 Pulse Oximetry 92 93 94 11/04/21 05:00 11/04/21 05:30 11/04/21 06:00 Temperature 99.0 F Pulse Rate 74 80 75 Respiratory Rate 20 20 20 Blood Pressure 109/62 108/61 Pulse Oximetry 94 94 94 11/04/21 07:00 11/04/21 08:00 11/04/21 09:00 Temperature 99.3 F Pulse Rate 70 68 77 Respiratory Rate 20 20 20 Blood Pressure 106/68 107/59 L 105/55 L Pulse Oximetry 94 93 93 11/04/21 10:00 11/04/21 11:00 Temperature 99.2 F 100.1 F H Pulse Rate 104 H 103 H Respiratory Rate 23 26 H Blood Pressure 112/59 L 119/65 Pulse Oximetry 92 92 Fraction of Inspired Oxygen 90 Oxygen Delivery Method Mechanical Ventilation Oxygen Flow Rate 0 Narrative Exam Narrative: GEN: intubated, sedated CV: irregular PULM: decreased breath sound bilaterally, rhonchorous ABD: soft, nontender, nondistended EXT: warm and well perfused, no pitting edema NEURO: sedated Objective Labs Result Diagrams: 11/04/21 07:01 11/04/21 07:01 Labs: Laboratory Results - last 24 hr 11/04/21 11/04/21 11/04/21 05:20 07:01 07:01 WBC 7.2 RBC 3.86 L Hgb 11.3 L Hct 35.4 L MCV 91.6 MCH 29.3 MCHC 32.0 RDW 17.8 H Plt Count 165 Neut % (Auto) 84.9 H Lymph % (Auto) 5.6 L [place] % (Auto) 8.3 Eos % (Auto) 0.8 L Baso % (Auto) 0.4 Neut # (Auto) 6100 Lymph # (Auto) 400 L [place] # (Auto) 600 Eos # (Auto) 100 Baso # (Auto) 0 ABG pH 7.40 ABG pCO2 51.8 H ABG pO2 81 ABG HCO3 32 H ABG Total CO2 34 H ABG O2 Saturation 96 ABG Base Excess 7.0 H FiO2 60 Sodium 135 L Potassium 3.9 Chloride 96 L Carbon Dioxide 32 BUN 24 H Creatinine 0.66 Estimated GFR > 60.0 BUN/Creatinine Ratio 36.4 H Glucose 227 H Calcium 8.7 Total Bilirubin 0.5 AST 22 ALT 11 Alkaline Phosphatase 51 Total Protein 6.3 Albumin 3.5 Globulin 2.8 Albumin/Globulin Ratio 1.3 PFSH Medical History Atrial fibrillation Cholelithiasis Chronic respiratory failure with hypoxia and hypercapnia Depression Diabetes Fracture of left ankle Hyperlipidemia Hypertension Inguinal hernia Iron deficiency anemia Lumbar degenerative disc disease Morbid obesity Obesity hypoventilation syndrome Osteoarthritis Paroxysmal atrial fibrillation Pneumococcal meningitis Prolapsed bladder Surgical History History of abdominoplasty History of gastric bypass Family History Mother Heart disease Father No problems noted. Social History household members: family, children and none Smoking Status: Former smoker alcohol intake: former additional social history: lives alone Assessment & Plan Assessment & Plan narrative: 70-year-old female with chronic hypoxic hypercapnic respiratory failure, COPD, atrial fibrillation, type 2 diabetes, hypertension, hyperlipidemia, morbid obesity, recent history of COVID-19 pneumonia in September, who was admitted to the hospital for: 1. Acute on chronic hypercapnic, hypoxic respiratory failure secondary to gram negative pneumonia -Patient required intubation on October 31 after she did not improve on BiPAP trial -Imaging reveals chronic ground-glass opacity, possibly COPD vs CHF -Patient with probable obesity hypoventilation syndrome -CT PE does not show PE, or evidence of pneumonia, and consistent with evidence of pulmonary hypertension -Will diurese with IV Bumex 1 mg bid for today, given likely right-sided volume overload -ECHO EF 45-55%, right side of heart difficult to visualize -continue cefepime for now -continue steroids, dexamethasone -COVID negative -continue dopamine for bradycardia -spontaneous wake trial, breathing trial daily 2. Acute metabolic encephalopathy - Likely occurred due to CO2 narcosis on admission, CO2 improving with ventilation 3. Chronic persistent atrial fibrillation, as per chart -Home negative chronotropic agents currently on hold, given patient sedated, and HR/BP on the lower side 4. Hypertension -hold chronotropic agents 5. Hyperlipidemia -Continue home atorvastatin 6. Insulin-dependent DM II -Will continue her usual home insulin regimen -Insulin sliding scale -Will continue home aspirin 81 mg daily 7. GERD -Continue PPI with IV famotidine, given that she's intubated, too 8. Dementia, reported per records -Continue donepezil Time Spent With Patient Critical Care time: I spent a total of [] minutes of critical care time on this patient's care today; this time is exclusive of procedural time. Quality VTE Deep Vein Thrombosis/Pulmonary Embolism Present on Admission: Yes
--- NOTE | 2021-11-04 12:00 | DIET.PN1 ---
Dietary Progress Note Assessment: Extubation was attempted yesterday, but she desat during trial. Plans for breathing trial daily. If pt continues to be intubated on TF with discontinued propofol, rec increasing rate and changing formula of TF to meet nutritional needs. Continuous OG feeding of Pivot 1.5 starting at 10 ml/hr and titrating up by 10-20mL q4h until reaching goal rate of 45mL/h. 200mL free water flushes q4h Feeds plus free water flushes provide 1620kcals (19 kcal/kg ABW), 101g PRO (1.2g/kg ABW), 186g CHO, feed water of 820mL, total fluids 2020L. Please adjust fluids prn. Provider notes indicate potential right side fluid overload. Ht: 167.64 cm Wt: 156 kg (163% above IBW) BMI: 59.8 IBW: 59.3 kg ABW: 83 Last BM: () MNA: 10 Demetrius Score: 15 Diet: 11/01/21 Lunch Tube Feeding Diet Diet Modifications: TF Supplement type: Jevity 1.2 wan TF mode of delivery: Continuous Starting flow rate mL/hr: 20 Flow rate goal mL/hr: 30 Titration Schedule to reach Goal Rate: 5cc q6 hours Max total daily volume in mL: 2,000 Free fluid: 200 Free Water Frequency: Q6H Comment: feed Ensure Max down OG tube bid to meet pts protein needs Nutrition Type of Feeding Tube NG/OG 11/04/21 05:13 Type of Feeding Tube NG/OG 11/03/21 12:00 Type of Feeding Tube NG/OG 11/03/21 08:00 Labs: RBC 3.86 X10^6/uL (4.0-5.2) L 11/04/21 07:01 Hgb 11.3 g/dL (12.0-16.0) L 11/04/21 07:01 Hct 35.4 % (36-46) L 11/04/21 07:01 Creatinine 0.66 mg/dL (0.52-1.04) 11/04/21 07:01 Lactate 0.8 mmol/L (0.7-2.1) 10/31/21 19:50 NT-Pro-B Natriuret Pep 784 pg/mL (<125) H 10/31/21 19:50 Monitoring/Evaluations: TF tolerance, RD f/u Wednesday 11/07 Electronically Signed by: Roxy Kumar 11/04/21 12:00 Clinical Dietitian [address] [id number]
[2021-11-04] MEDS: fentaNYL 1,000 MCG in DEXTROSE 5% IN WATER 230 ML 15 ML IV (13:00)
--- NOTE | 2021-11-04 13:30 | PC.NURSE ---
Sedation weaned to off (see eMAR). Pt awake/alert and following commands. RT placed pt on SBT 1110. SBT lasted until ~1245. During the last approx 20 minutes of trial, pt started to desat to 88%. Provided ETT suctioning and noted scant amount of frothy/white sputum. Post suctioning, SPO2 increased to mid 90s% but slowly decreased back down to 88-90%. At 1245, RT notified this RN that pt was switched back to vent settings for prolonged SPO2 87-88%, RR 30s. Bedside monitor shows SR/SA with frequent PVCs. Facial flushing is noted and pt is having an increase in temp to 100.2F. After being placed back into PRVC 50% FIO2 PEEP 5 TV 390 RR 15, Pt is noted to have sats of 85%. Notified RT who arrived to bedside and made changes. Sedation meds restarted.
[2021-11-04] MEDS: propofoL 1,000 MG/100 ML VIAL 18.66 MG IV ×3 (13:47→22:59)
[2021-11-04] MEDS: ACETAMINOPHEN 325 MG TABLET 650 MG PO (16:19)
[2021-11-04] MEDS: BISACODYL 10 MG SUPP PR (16:20)
[2021-11-04] MEDS: metOLazone 2.5 MG TABLET 5 MG PO (16:27)
[2021-11-04] MEDS: ATORVASTATIN 20 MG TABLET 80 MG PO (21:47)
[2021-11-04] MEDS: BUMETANIDE 1 MG/4 ML VIAL 2 MG IV (21:47)
[2021-11-04] MEDS: INSULIN GLARGINE 100 UNIT/ML 3ML PEN 10 UNIT SUBCUT (21:49)
--- NOTE | 2021-11-04 22:00 | P.ICUMDRN_ITS ---
- Date Patient Seen: 11/04/21 Time Patient Seen: 22:00 :: This patient was seen via real time interactive two-way audiovisual telecommunication. Note: Off dopamine. Failed weaning trial earlier today. Patient with respiratory failure due to Pseudomonal pneumonia and E. coli UTI--both isolates are ndiaye- sensitive. Labs/orders/chart reviewed-->continue present plan/management.
[2021-11-05] VITALS (132 sets, daily range): BP systolic 77–138; BP diastolic 50–79; PULSE 47–178; RESP 0–29; TEMP 36.6–37.2; O2SAT 90–99
[2021-11-05] MEDS: HYDROCORTISONE 100 MG/2 ML VIAL 50 MG IV ×2 (00:16→06:04)
[2021-11-05] MEDS: CHLORHEXIDINE GLUCONATE 15 ML CUP PO ×4 (00:16→18:32)
[2021-11-05] MEDS: INSULIN LISPRO 100 UNIT/ML 3ML VIAL SUBCUT ×4 (00:18→18:32)
[2021-11-05] MEDS: propofoL 1,000 MG/100 ML VIAL 23.325 MG IV ×4 (02:42→15:39)
[2021-11-05] MEDS: fentaNYL 1,000 MCG in DEXTROSE 5% IN WATER 230 ML 22.5 ML IV ×2 (02:44→15:37)
[2021-11-05] MEDS: CEFEPIME 2 GM in SODIUM CHLORIDE 0.9% 100 ML 200 ML IV ×3 (04:24→20:33)
[2021-11-05 05:23] LABS: Add Manual Diff / Slide Review NO; Basophils Absolute Auto 0 /uL (0-100); Basophils Percent Auto 0.5 % (0-2); Eosinophils Absolute Auto 100 /uL (0-450); Eosinophils Percent Auto 2.2 % (2-4); Hematocrit 34.2 % (36-46); Lymphocytes Absolute Auto 400 /uL (1100-4500); Lymphocytes Percent Auto 7.4 % (25-40); Mean Corpuscular Hemoglobin 29.3 PG (26-34); Mean Corpuscular Volume 91.6 fL (80-100); Monocytes Absolute Auto 500 /uL (0-900); Monocytes Percent Auto 8.7 % (3-14); Neutrophils Absolute Auto 4900 /uL (1500-7000); Neutrophils Percent Auto 81.2 % (50-75); Platelet Count 161 X10^3/uL (150-400); Red Blood Cell Count 3.74 X10^6/uL (4.0-5.2); Red Cell Distribution Width 17.7 % (11.6-14.8)
--- NOTE | 2021-11-05 05:23 | PC.NURSE ---
Addendum entered by Meagan Peña R.N. 11/05/21 07:19: 0630- Neck redness has tracked to the left side of the neck to the ear. VALENTÍN Lu asked to come and see patient. Throat culture sent. Patient appears to have upper denture in her mouth. Respiratory therapy notified. Redness has been outlined and is warm to touch but no firmness noted. Will monitor. Original Note: 0500- Patient had a small mucoid stool. Linens under patient changed, nystatin applied to folds. Patient wakes easily, responds to verbal commands. Patient does try to reach for her ETT. 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 Skin remains intact. Propofol gtt increased to 25mics to keep patient at a Rass of -2 to -3. Restraint order renewed. Will monitor.
[2021-11-05 05:32] LABS: Alanine Aminotransferase 12 IU/L (<35); Albumin 3.6 g/dL (3.5-5.0); Albumin Globulin Ratio 1.2 (1.0-2.8); Alkaline Phosphatase 58 U/L (38-126); Aspartate Aminotransferase 24 IU/L (14-36); BUN Creatinine Ratio 41.6 (6-22); Bilirubin Total 0.5 mg/dL (0.2-1.3); Blood Urea Nitrogen 32 mg/dL (7-17); Calcium 8.9 mg/dL (8.4-10.2); Carbon Dioxide 35 mmol/L (22-32); Chloride 94 mmol/L (98-107); Estimated Glomerular Filt Rate > 60.0 mL/min (>60); Globulin 2.9 g/dL (1.7-4.1); Glucose 206 mg/dL (80-110); HEMOLYSIS < 15 (0-50); Potassium 3.5 mmol/L (3.4-5.1); Sodium 135 mmol/L (137-145); Total Protein 6.5 g/dL (6.3-8.2)
[2021-11-05 05:41] LABS: Fractionated Inspired Oxygen 60; HCO3 ABG 34 mmol/L (22-26); Oxygen Saturation ABG 97 % (95-100); PCO2 ABG 51.5 mmHg (35-45); PO2 ABG 94 mmHg (80-100); TCO2 ABG 35 mmol/L (21-31); pH ABG 7.42 (7.35-7.45)
[2021-11-05] MEDS: ALBUTEROL/IPRATROPIUM 3 ML AMPUL INH ×2 (08:29→18:20)
[2021-11-05] MEDS: ENOXAPARIN 40 MG/0.4 ML SYRINGE SUBCUT (08:50)
[2021-11-05] MEDS: FAMOTIDINE 20 MG/2 ML VIAL IV (08:50)
[2021-11-05] MEDS: NYSTATIN CREAM 30 GM 1 APPLIC TOP (08:51)
[2021-11-05] MEDS: ASPIRIN EC 81 MG TABLET PO (08:51)
--- NOTE | 2021-11-05 09:35 | P.TELICUPN_ITS ---
Subjective Subjective :: This patient was seen via real time interactive two-way audiovisual telecommunication. No acute issues overnight. Passed SAT but failed SBT due to hypoxemia. Off dopamine. Resp cx growing pseudomonas PNA. On PEEP 8 and FiO2 60%. Stop stress dose steroids. BS ~200-300 -> increase lantus to 15 units. Went into A fib w/ RVR and received metoprolol 5 mg IV once. Current Medications Current Medications Medications: Home Medications aspirin 81 mg tablet,delayed release 81 mg PO DAILY 04/12/18 [History Confirmed 11/03/21] ursodiol 300 mg capsule 300 mg PO BID 04/12/18 [History Confirmed 11/03/21] gabapentin 300 mg capsule 300 mg PO TID 09/04/18 [History Confirmed 11/03/21] atorvastatin 80 mg tablet 80 mg PO BEDTIME 09/25/18 [History Confirmed 11/03/21] torsemide 20 mg tablet 1 tab PO QAM 09/25/18 [History Confirmed 11/03/21] cetirizine 10 mg tablet (Allergy Relief (cetirizine)) 1 tab PO DAILY 02/13/19 [History Confirmed 11/03/21] ferrous sulfate 325 mg (65 mg iron) tablet 1 tab PO QAM 02/13/19 [History Confirmed 11/03/21] acetaminophen 325 mg tablet 650 mg PO Q6H PRN 08/04/21 [History Confirmed 11/03/21] acetaminophen 500 mg tablet 1,000 mg PO BID 08/04/21 [History Confirmed 11/03/21] donepezil 10 mg tablet 20 mg PO QAM 08/04/21 [History Confirmed 11/03/21] fluticasone fur. 100 mcg-umeclid 62.5 mcg-vilant 25 mcg inhalat.powder 1 inh INHALATION DAILY 08/04/21 [History Confirmed 11/03/21] insulin glargine 100 unit/mL (3 mL) subcutaneous pen (Lantus Solostar U-100 Insulin) 9 unit SUBCUT BEDTIME 08/04/21 [History Confirmed 11/03/21] loperamide 2 mg tablet 2 mg PO Q24H PRN 08/04/21 [History Confirmed 11/03/21] metoprolol tartrate 25 mg tablet 12.5 mg PO BID 08/04/21 [History Confirmed 11/03/21] nystatin 100,000 unit/gram topical powder 100,000 unit TOPICAL BID 08/04/21 [History Confirmed 11/03/21] ondansetron HCl 4 mg tablet 4 mg PO Q6HR PRN 08/04/21 [History Confirmed 11/03/21] pantoprazole 20 mg tablet,delayed release 20 mg PO DAILY 08/04/21 [History Confirmed 11/03/21] potassium chloride 10 mEq tablet,extended release(part/cryst) (Klor-Con M) 20 meq PO DAILYCC 08/04/21 [History Confirmed 11/03/21] sennosides 8.6 mg tablet (senna) 17.2 mg PO Q12H PRN 08/04/21 [History Confirmed 11/03/21] diltiazem HCl 180 mg capsule,extended release 24 hr 180 mg PO DAILY 09/08/21 [History Confirmed 11/03/21] insulin lispro 100 unit/mL subcutaneous pen (Humalog KwikPen (U-100) Insulin) 1 sliding scale dose SUBCUT BIDAC 09/08/21 [History Confirmed 11/03/21] melatonin 1 mg tablet 1 mg PO BEDTIME PRN 09/08/21 [History Confirmed 11/03/21] polyethylene glycol 3350 17 gram oral powder packet (Miralax) 17 g PO BID PRN 09/08/21 [History Confirmed 11/03/21] vitamin A and D 1 applic TOPICAL BID 09/08/21 [History Confirmed 11/03/21] diphenhydramine HCl 25 mg capsule (Allergy (diphenhydramine)) 50 mg PO Q6H PRN 10/07/21 [History Confirmed 11/03/21] albuterol sulfate 90 mcg/actuation aerosol inhaler (Ventolin HFA) 2 puff INHALATION Q4HR PRN 11/03/21 [History Confirmed 11/03/21] Visit Medications (administered) Generic Name Dose Route Start Last Admin Trade Name Freq PRN Reason Stop Dose Admin Acetaminophen 650 mg 11/02/21 02:59 11/04/21 16:19 Acetaminophen 325 Mg Tablet PO 650 mg Q6HR PRN Administration Fever/Mild Pain (1-3) Albuterol/Ipratropium 3 ml 11/01/21 08:00 11/05/21 08:29 Albuterol/Ipratropium 3 Ml Ampul INH 3 ml RTBID LORNA Administration Aspirin 81 mg 11/01/21 09:00 11/05/21 08:51 Aspirin Ec 81 Mg Tablet PO 81 mg DAILY LORNA Administration Atorvastatin Calcium 80 mg 11/01/21 21:00 11/04/21 21:47 Atorvastatin 20 Mg Tablet PO 80 mg BEDTIME LORNA Administration Bisacodyl 10 mg 10/31/21 22:18 11/04/21 16:20 Bisacodyl 10 Mg Supp CA 10 mg DAILY PRN Administration Constipation Bumetanide 2 mg 11/04/21 21:00 11/04/21 21:47 Bumetanide 1 Mg/4 Ml Vial IV 2 mg BID LORNA Administration Chlorhexidine Gluconate 15 ml 11/01/21 06:00 11/05/21 06:04 Chlorhexidine Gluconate 15 Ml Cup PO 15 ml Q6HR LORNA Administration Enoxaparin Sodium 40 mg 11/01/21 21:00 11/05/21 08:50 Enoxaparin 40 Mg/0.4 Ml Syringe SUBCUT 40 mg BID LORNA Administration Famotidine 20 mg 11/02/21 09:00 11/05/21 08:50 Famotidine 20 Mg/2 Ml Vial IV 20 mg DAILY LORNA Administration Fentanyl 50 mcg 11/01/21 02:04 11/01/21 16:58 Fentanyl 100 Mcg/2 Ml Inj IV 50 mcg Q1H PRN Administration Agitation Heparin Sodium (Porcine) 50 unit 11/01/21 09:00 11/05/21 08:50 Heparin Flush (Cl/Picc/Mid-Line) 50 Unit/5 Ml Syringe IV 50 unit BID LORNA Administration Hydrocortisone 50 mg 11/03/21 12:00 11/05/21 06:04 Hydrocortisone 100 Mg/2 Ml Vial IV 50 mg Q6HR LORNA Administration Fentanyl 1,000 mcg/ Dextrose 250 mls @ 0 mls/hr 11/01/21 20:30 11/05/21 09:00 IV 0 mcg/min TITRATE LORNA 0 mls/hr Titration Protocol Per Protocol Dopamine HCl/Dextrose 400 mg in 250 mls @ 5.839 mls/hr 11/02/21 02:00 11/04/21 10:00 Dopamine 400 Mg-D5w 250 Ml IV 0 mcg/kg/min TITRATE LORNA 0 mls/hr Titration Protocol 1 MCG/KG/MIN Cefepime HCl 2 gm/ Sodium 100 mls @ 200 mls/hr 11/03/21 12:00 11/05/21 06:05 Chloride IV Infused Q8H LORNA Infusion Propofol 1,000 mg in 100 mls @ 4.665 mls/hr 11/03/21 18:30 11/05/21 09:00 Propofol IV 0 mcg/kg/min TITRATE LORNA 0 mls/hr Titration Protocol 5 MCG/KG/MIN Insulin Glargine 10 unit 11/01/21 21:00 11/04/21 21:49 Insulin Glargine 100 Unit/Ml 3ml Pen SUBCUT 10 unit BEDTIME LORNA Administration Insulin Human Lispro 0 unit 11/01/21 12:00 11/05/21 06:04 Insulin Lispro 100 Unit/Ml 3ml Vial SUBCUT 2 unit Q6H LORNA Administration Protocol Nystatin 1 applic 11/01/21 09:00 11/05/21 08:51 Nystatin Cream 30 Gm TOP 1 applic BID LORNA Administration Objective Ventilator Parameters: Ventilator Settings FiO2 60 RT Vent Frequency 20 Ventilator Tidal Volume 360 Exhaled Positive End Expiratory 8 Pressure Ventilator Pressure Support 10 Inspiratory Phase Time 0.9 I:E Ratio 1:2.3 Patient Position HOB >= 30 degrees Labs Result Diagrams: 11/05/21 04:15 11/05/21 04:15 Labs: Laboratory Results - last 24 hr 11/05/21 11/05/21 11/05/21 04:15 04:15 05:13 WBC 6.0 RBC 3.74 L Hgb 11.0 L Hct 34.2 L MCV 91.6 MCH 29.3 MCHC 32.0 RDW 17.7 H Plt Count 161 Neut % (Auto) 81.2 H Lymph % (Auto) 7.4 L [place] % (Auto) 8.7 Eos % (Auto) 2.2 Baso % (Auto) 0.5 Neut # (Auto) 4900 Lymph # (Auto) 400 L [place] # (Auto) 500 Eos # (Auto) 100 Baso # (Auto) 0 ABG pH 7.42 ABG pCO2 51.5 H ABG pO2 94 ABG HCO3 34 H ABG Total CO2 35 H ABG O2 Saturation 97 ABG Base Excess 9.0 H FiO2 60 Sodium 135 L Potassium 3.5 Chloride 94 L Carbon Dioxide 35 H BUN 32 H Creatinine 0.77 Estimated GFR > 60.0 BUN/Creatinine Ratio 41.6 H Glucose 206 H Calcium 8.9 Total Bilirubin 0.5 AST 24 ALT 12 Alkaline Phosphatase 58 Total Protein 6.5 Albumin 3.6 Globulin 2.9 Albumin/Globulin Ratio 1.2 Exam Vital Signs (past 8 hours): - 11/05/21 02:00 11/05/21 03:00 11/05/21 04:00 Temperature 97.8 F Pulse Rate 58 L 66 65 Respiratory Rate 20 20 20 Blood Pressure 93/54 L 111/66 116/61 Pulse Oximetry 95 94 95 11/05/21 05:00 11/05/21 06:00 11/05/21 07:00 Temperature Pulse Rate 68 73 62 Respiratory Rate 20 20 20 Blood Pressure 110/60 111/63 116/65 Pulse Oximetry 95 96 96 11/05/21 08:00 11/05/21 09:00 Temperature Pulse Rate 59 L 80 Respiratory Rate 20 20 Blood Pressure 110/62 120/66 Pulse Oximetry 96 95 Fraction of Inspired Oxygen 60 Oxygen Delivery Method Mechanical Ventilation Oxygen Flow Rate 60 Quality TeleICU VTE Deep Vein Thrombosis/Pulmonary Embolism Present on Admission: Yes Assessment & Plan Assessment & Plan narrative: NEURO: # Acute encephalopathy -- On fentanyl and propofol -- RASS goal -1 to +1 -- Early mobility as tolerated RESP: # Acute hypoxemia respiratory failure -- Secondary to GNR PNA -- On PEEP 8 and FiO2 60% -- Resp cx growing pseudomonas PNA -- Daily SBT -- Will cont gentle diuresis to seek net negative fluid balance -- HOB elevation -- Aspiration precaution -- Goal SpO2 > 88% # PATRICK/OHS -- Noncompliant with NIVVP therapy -- Encourage BiPAP usage nightly when extubated CVS: # Septic shock -- Secondary to UTI and pseudomonas PNA -- Off dopamine -- Stop stress dose steroids -- MAP goal > 65 # A Fib w/ RVR -- Seocndary to increased catecholamine from sepsis -- Received metoprolol 5 mg IV once -- CHADVASC score -> 4, needs systemic AC if poses no contraindicaton -- If failed to improve with metoprolol then will start digoxin load therapy -- High lytes goal (Mg>2, Phos >3, and K>4) ID: # Pseudomonas PNA? -- On cefepime X 10-14 days # E. Coli UTI -- On cefepime ENDO: -- BS ~200-300s -- Increased lantus to 15 units -- Goal BS < 180 D/w RN, RT, pharmacist, and hospitalist. Time Spent With Patient Critical Care time: I spent a total of [] minutes of critical care time on this patient's care today; this time is exclusive of procedural time.
[2021-11-05] MEDS: METOPROLOL TARTRATE 5 MG/5 ML INJ IV ×3 (10:00→10:55)
[2021-11-05] MEDS: POTASSIUM CHLORIDE IN WATER 10 MEQ/100 ML PIGGYBACK 100 MEQ IV ×4 (10:34→13:49)
[2021-11-05] MEDS: FUROSEMIDE 40 MG/4 ML VIAL IV (10:34)
[2021-11-05 10:48] LABS: Magnesium 2.4 mg/dL (1.6-2.3); Phosphorous 4.4 mg/dL (2.8-4.1)
[2021-11-05] MEDS: ENOXAPARIN 150 MG/ML SYRINGE 110 MG SUBCUT (10:55)
--- NOTE | 2021-11-05 11:08 | CM.DPNOTE ---
Addendum entered by EMANUEL Fishman 11/05/21 11:13: ADD: Patient may be a candidate for Christine if family does not want palliative extubation and patient continues to require intubation ANDRY Original Note: DCP Note Patient discussed in multidisciplinary rounds this morning. Medical management continues for Acute on chronic hypercapnic, hypoxic respiratory failure secondary to gram negative pneumonia. Patient is intubated at this time. 70-year-old female with chronic hypoxic hypercapnic respiratory failure, COPD, atrial fibrillation, type 2 diabetes, hypertension, hyperlipidemia, morbid obesity, recent history of COVID-19 pneumonia in September Medical team attempted extubation yesterday which patient, immediately, did not tolerate CM team will continue to follow closely as medical plan of care unfolds. ANDRY
--- NOTE | 2021-11-05 11:16 | RT ---
SBT cancelled for today due to patient entering rapid A-fib.
[2021-11-05] MEDS: DIGOXIN 500 MCG/2 ML AMPUL IV (11:45)
--- NOTE | 2021-11-05 11:59 | PM.PN.1 ---
Subjective Subjective Date Patient Seen: 11/05/21 Time Patient Seen: 08:00 Interval history: She was unable to be extubated yesterday due to hypoxemia when trialing off volume control. This morning she had sedation weaning trial. She became tachycardic to the 180s in atrial fibrillation with rate improving with IV metoprolol. Sedation was restarted Exam Vital Signs (past 8 hours): - 11/05/21 04:00 11/05/21 05:00 11/05/21 06:00 Temperature 97.8 F Pulse Rate 65 68 73 Respiratory Rate 20 20 20 Blood Pressure 116/61 110/60 111/63 Pulse Oximetry 95 95 96 11/05/21 07:00 11/05/21 08:00 11/05/21 09:00 Temperature Pulse Rate 62 59 L 80 Respiratory Rate 20 20 20 Blood Pressure 116/65 110/62 120/66 Pulse Oximetry 96 96 95 11/05/21 09:55 11/05/21 10:00 11/05/21 10:02 Temperature Pulse Rate 178 H 177 H 173 H Respiratory Rate 25 H 29 H 25 H Blood Pressure 109/79 138/67 Pulse Oximetry 93 92 94 11/05/21 10:15 11/05/21 10:22 11/05/21 10:30 Temperature Pulse Rate 136 H 134 H 125 H Respiratory Rate 20 20 20 Blood Pressure 99/55 L 113/58 L 101/58 L Pulse Oximetry 93 92 91 11/05/21 10:40 11/05/21 10:47 11/05/21 10:50 Temperature Pulse Rate 119 H 116 H 116 H Respiratory Rate 20 20 20 Blood Pressure 98/63 84/61 L 97/62 Pulse Oximetry 91 90 L 90 L 11/05/21 10:55 11/05/21 11:00 11/05/21 11:04 Temperature Pulse Rate 118 H 120 H 113 H Respiratory Rate 20 20 20 Blood Pressure 93/62 106/55 L Pulse Oximetry 90 L 90 L 95 11/05/21 11:05 11/05/21 11:10 11/05/21 11:15 Temperature Pulse Rate 118 H 105 H 110 H Respiratory Rate 20 20 20 Blood Pressure 92/51 L 84/54 L 92/57 L Pulse Oximetry 96 97 97 11/05/21 11:20 11/05/21 11:45 Temperature Pulse Rate 111 H 106 H Respiratory Rate 20 Blood Pressure 100/56 L 91/59 L Pulse Oximetry 98 Fraction of Inspired Oxygen 60 Oxygen Delivery Method Mechanical Ventilation Oxygen Flow Rate 60 Narrative Exam Narrative: GEN: intubated, sedated CV: irregular PULM: decreased breath sound bilaterally, rhonchorous ABD: soft, nontender, nondistended EXT: warm and well perfused, no pitting edema NEURO: sedated Objective Labs Result Diagrams: 11/05/21 04:15 11/05/21 04:15 Labs: Laboratory Results - last 24 hr 11/05/21 11/05/21 11/05/21 04:15 04:15 04:15 WBC 6.0 RBC 3.74 L Hgb 11.0 L Hct 34.2 L MCV 91.6 MCH 29.3 MCHC 32.0 RDW 17.7 H Plt Count 161 Neut % (Auto) 81.2 H Lymph % (Auto) 7.4 L [place] % (Auto) 8.7 Eos % (Auto) 2.2 Baso % (Auto) 0.5 Neut # (Auto) 4900 Lymph # (Auto) 400 L [place] # (Auto) 500 Eos # (Auto) 100 Baso # (Auto) 0 ABG pH ABG pCO2 ABG pO2 ABG HCO3 ABG Total CO2 ABG O2 Saturation ABG Base Excess FiO2 Sodium 135 L Potassium 3.5 Chloride 94 L Carbon Dioxide 35 H BUN 32 H Creatinine 0.77 Estimated GFR > 60.0 BUN/Creatinine Ratio 41.6 H Glucose 206 H Calcium 8.9 Phosphorus 4.4 H Magnesium 2.4 H Total Bilirubin 0.5 AST 24 ALT 12 Alkaline Phosphatase 58 Total Protein 6.5 Albumin 3.6 Globulin 2.9 Albumin/Globulin Ratio 1.2 11/05/21 05:13 WBC RBC Hgb Hct MCV MCH MCHC RDW Plt Count Neut % (Auto) Lymph % (Auto) [place] % (Auto) Eos % (Auto) Baso % (Auto) Neut # (Auto) Lymph # (Auto) [place] # (Auto) Eos # (Auto) Baso # (Auto) ABG pH 7.42 ABG pCO2 51.5 H ABG pO2 94 ABG HCO3 34 H ABG Total CO2 35 H ABG O2 Saturation 97 ABG Base Excess 9.0 H FiO2 60 Sodium Potassium Chloride Carbon Dioxide BUN Creatinine Estimated GFR BUN/Creatinine Ratio Glucose Calcium Phosphorus Magnesium Total Bilirubin AST ALT Alkaline Phosphatase Total Protein Albumin Globulin Albumin/Globulin Ratio PFS Medical History Atrial fibrillation Cholelithiasis Chronic respiratory failure with hypoxia and hypercapnia Depression Diabetes Fracture of left ankle Hyperlipidemia Hypertension Inguinal hernia Iron deficiency anemia Lumbar degenerative disc disease Morbid obesity Obesity hypoventilation syndrome Osteoarthritis Paroxysmal atrial fibrillation Pneumococcal meningitis Prolapsed bladder Surgical History History of abdominoplasty History of gastric bypass Family History Mother Heart disease Father No problems noted. Social History household members: family, children and none Smoking Status: Former smoker alcohol intake: former additional social history: lives alone Assessment & Plan Assessment & Plan narrative: 1. Acute on chronic hypercapnic, hypoxic respiratory failure secondary to gram negative pneumonia with septic shock from UTI and pneumonia -Patient required intubation on October 31 after she did not improve on BiPAP trial -Imaging reveals chronic ground-glass opacity, possibly COPD vs CHF -Patient with probable obesity hypoventilation syndrome -CT PE does not show PE -pseudomonas growing in sputum -will diuresed with lasix -ECHO EF 45-55%, right side of heart difficult to visualize -continue cefepime for now -continue steroids, dexamethasone -COVID negative -spontaneous wake trial, breathing trial daily 2. Atrial fibrillation with RVR -ordered metoprolol IV x3, still tachycardic will trial digoxin -ordered for full dose lovenox -replete electrolytes 3. Acute metabolic encephalopathy - Likely occurred due to CO2 narcosis on admission, CO2 improving with ventilation 4. Hypertension -hold chronotropic agents 5. Hyperlipidemia -Continue home atorvastatin 6. Insulin-dependent DM II -Will continue her usual home insulin regimen -Insulin sliding scale -Will continue home aspirin 81 mg daily 7. GERD -Continue PPI with IV famotidine, given that she's intubated, too 8. Dementia, reported per records -Continue donepezil Time Spent With Patient Critical Care time: I spent a total of [] minutes of critical care time on this patient's care today; this time is exclusive of procedural time. Quality VTE Deep Vein Thrombosis/Pulmonary Embolism Present on Admission: Yes
[2021-11-05] MEDS: NOREPINEPHRINE 4 MG in DEXTROSE 5% IN WATER 250 ML 7.62 ML IV (15:20)
--- NOTE | 2021-11-05 18:19 | PC.NURSE ---
Sedation titrated off around 0900 for planned sedation vacation/SBT, around 1000 patient was alert and RASS of 0 and went into Afiv RVR with HR as high as 200's. Dr. Keyes at bedside, metoprolol 5mg IV given 3x, brought HR down to 130s. Sedation was resumed. Dr. Mckeon updated and ordered digoxin. After digoxin was administered HR decreased initially to 90's and the returned to 130s. Dr. Mckeon updated and was comfortable with HR in 130s. Around 1415 patient converted back to SR, abundio in the 40-50's. At this time BP MAP was ranging from 63-67. Dr. Mckeon ordered levophed gtt. At end of shift patient's HR is in the 50's, BP MAP >65, RASS of -2 to -3, on 1mcg/min levophed, 1mcg/min fentanyl, 20mcg/kg/min propofol, vent settings remain unchanged at FiO2 60%, TV 390, RR 20, PEEP of 8.
[2021-11-05] MEDS: ENOXAPARIN 150 MG/ML SYRINGE SUBCUT (20:33)
[2021-11-05] MEDS: propofoL 1,000 MG/100 ML VIAL 18.66 MG IV (20:33)
[2021-11-05] MEDS: METOPROLOL IR 25 MG TABLET 12.5 MG PO (20:34)
[2021-11-05] MEDS: ATORVASTATIN 20 MG TABLET 80 MG PO (20:35)
[2021-11-05] MEDS: INSULIN GLARGINE 100 UNIT/ML 3ML PEN 15 UNIT SUBCUT (21:01)
--- NOTE | 2021-11-05 21:10 | PM.ICURNDS ---
- Date Patient Seen: 11/05/21 Time Patient Seen: 20:52 :: This patient was seen via real time interactive two-way audiovisual telecommunication. Note: Chart reviewed. Had rapid AF earlier today --> given digoxin. Mild hypoK+ was treated and patient is normomagnesemic. Tolerating tube feeds, has good bowel sounds and producing flatus and mucoid stool. Norepinephrine is @ 0.5 mcg/kg/min and almost OFF. Glycemic control acceptable. Stress ulcer and VTE prophylaxis appropriate. AC 60% TV 390 RR 20 PEEP 8. Continue present management; discussed with RN.
[2021-11-06] VITALS (100 sets, daily range): BP systolic 92–169; BP diastolic 50–98; PULSE 53–100; RESP 0–32; TEMP 36.6–36.7; O2SAT 76–97
[2021-11-06] MEDS: CHLORHEXIDINE GLUCONATE 15 ML CUP PO ×2 (00:09→08:55)
[2021-11-06] MEDS: propofoL 1,000 MG/100 ML VIAL 23.325 MG IV ×2 (01:18→05:03)
[2021-11-06] MEDS: CEFEPIME 2 GM in SODIUM CHLORIDE 0.9% 100 ML 200 ML IV (04:30)
[2021-11-06] MEDS: fentaNYL 1,000 MCG in DEXTROSE 5% IN WATER 230 ML 22.5 ML IV (04:55)
[2021-11-06 05:34] LABS: Add Manual Diff / Slide Review NO; Basophils Absolute Auto 100 /uL (0-100); Basophils Percent Auto 0.8 % (0-2); Eosinophils Absolute Auto 400 /uL (0-450); Hematocrit 34.6 % (36-46); Lymphocytes Absolute Auto 1300 /uL (1100-4500); Lymphocytes Percent Auto 17.9 % (25-40); Mean Corpuscular HGB Conc 31.8 % (30-36); Mean Corpuscular Hemoglobin 29.1 PG (26-34); Mean Corpuscular Volume 91.5 fL (80-100); Monocytes Absolute Auto 800 /uL (0-900); Monocytes Percent Auto 11.1 % (3-14); Neutrophils Absolute Auto 4800 /uL (1500-7000); Neutrophils Percent Auto 65.2 % (50-75); Platelet Count 167 X10^3/uL (150-400); Red Blood Cell Count 3.79 X10^6/uL (4.0-5.2); Red Cell Distribution Width 17.3 % (11.6-14.8); White Blood Cell Count 7.4 X10^3/uL (4.5-11.0)
[2021-11-06 05:40] LABS: Alanine Aminotransferase 12 IU/L (<35); Albumin 3.3 g/dL (3.5-5.0); Albumin Globulin Ratio 1.2 (1.0-2.8); Alkaline Phosphatase 55 U/L (38-126); Aspartate Aminotransferase 21 IU/L (14-36); BUN Creatinine Ratio 44.4 (6-22); Bilirubin Total 0.3 mg/dL (0.2-1.3); Blood Urea Nitrogen 36 mg/dL (7-17); Calcium 8.7 mg/dL (8.4-10.2); Carbon Dioxide 35 mmol/L (22-32); Chloride 94 mmol/L (98-107); Estimated Glomerular Filt Rate > 60.0 mL/min (>60); Globulin 2.8 g/dL (1.7-4.1); Glucose 174 mg/dL (80-110); HEMOLYSIS < 15 (0-50); Potassium 2.9 mmol/L (3.4-5.1); Sodium 132 mmol/L (137-145); Total Protein 6.1 g/dL (6.3-8.2)
[2021-11-06 05:47] LABS: Digoxin < 0.4 ng/mL (0.8-2.0)
[2021-11-06] MEDS: ALBUTEROL/IPRATROPIUM 3 ML AMPUL INH (08:19)
[2021-11-06] MEDS: FAMOTIDINE 20 MG/2 ML VIAL IV ×3 (08:53→21:09)
[2021-11-06] MEDS: ENOXAPARIN 150 MG/ML SYRINGE SUBCUT ×2 (08:54→21:07)
[2021-11-06] MEDS: NYSTATIN CREAM 30 GM 1 APPLIC TOP ×2 (08:55→22:00)
[2021-11-06] MEDS: ASPIRIN EC 81 MG TABLET PO (09:04)
[2021-11-06] MEDS: INSULIN LISPRO 100 UNIT/ML 3ML VIAL SUBCUT ×3 (09:05→18:39)
[2021-11-06] MEDS: POTASSIUM CHLORIDE IN WATER 10 MEQ/100 ML PIGGYBACK 100 MEQ IV ×3 (09:09→13:40)
--- NOTE | 2021-11-06 10:57 | PM.PN.EICU ---
Subjective Subjective :: This patient was seen via real time interactive two-way audiovisual telecommunication. 70-year-old female with a history of COPD, OHS,, chronic hypoxic hypercapnic respiratory failure on 3-4L [id number], atrial fibrillation not anticoagulated, type 2 diabetes, hypertension, hyperlipidemia, iron deficiency anemia, morbid obesity, and recent history of COVID PNA (Dx 10/05/21).? She was hospitalized from 10/07/21-10/08/21 for COVID PNA requiring HFNC.? She got started on Decardron, Remdesivir, and Baricitinib. She quickly improved and was discharged home the next day as her oxygen requirement improved downto her baseline of 3-4L nc. She got readmitted 10/31/21 for acute on chronic hypoxic and hypercapnic respiratory failure requiring intubation in ER. Repeat COVID test 10/31/21 neg. Chest CTA neg for PE. Sputum Cx 10/31/21 grew Pseudomonas and UCx 10/31/21cgrew E. Coli . Patient getting diuresed. She came off pressors. Recent 24 hour events. Pt. diuresed out 1L net neg on Lasix 40 mg IV BID. Patient passed SBT and was extubated today. She is currently on 4L nc, awake and talking. She remains hemodynamically stable off pressors. Current Medications Current Medications Medications: Home Medications aspirin 81 mg tablet,delayed release 81 mg PO DAILY 04/12/18 [History Confirmed 11/03/21] ursodiol 300 mg capsule 300 mg PO BID 04/12/18 [History Confirmed 11/03/21] gabapentin 300 mg capsule 300 mg PO TID 09/04/18 [History Confirmed 11/03/21] atorvastatin 80 mg tablet 80 mg PO BEDTIME 09/25/18 [History Confirmed 11/03/21] torsemide 20 mg tablet 1 tab PO QAM 09/25/18 [History Confirmed 11/03/21] cetirizine 10 mg tablet (Allergy Relief (cetirizine)) 1 tab PO DAILY 02/13/19 [History Confirmed 11/03/21] ferrous sulfate 325 mg (65 mg iron) tablet 1 tab PO QAM 02/13/19 [History Confirmed 11/03/21] acetaminophen 325 mg tablet 650 mg PO Q6H PRN 08/04/21 [History Confirmed 11/03/21] acetaminophen 500 mg tablet 1,000 mg PO BID 08/04/21 [History Confirmed 11/03/21] donepezil 10 mg tablet 20 mg PO QAM 08/04/21 [History Confirmed 11/03/21] fluticasone fur. 100 mcg-umeclid 62.5 mcg-vilant 25 mcg inhalat.powder 1 inh INHALATION DAILY 08/04/21 [History Confirmed 11/03/21] insulin glargine 100 unit/mL (3 mL) subcutaneous pen (Lantus Solostar U-100 Insulin) 9 unit SUBCUT BEDTIME 08/04/21 [History Confirmed 11/03/21] loperamide 2 mg tablet 2 mg PO Q24H PRN 08/04/21 [History Confirmed 11/03/21] metoprolol tartrate 25 mg tablet 12.5 mg PO BID 08/04/21 [History Confirmed 11/03/21] nystatin 100,000 unit/gram topical powder 100,000 unit TOPICAL BID 08/04/21 [History Confirmed 11/03/21] ondansetron HCl 4 mg tablet 4 mg PO Q6HR PRN 08/04/21 [History Confirmed 11/03/21] pantoprazole 20 mg tablet,delayed release 20 mg PO DAILY 08/04/21 [History Confirmed 11/03/21] potassium chloride 10 mEq tablet,extended release(part/cryst) (Klor-Con M) 20 meq PO DAILYCC 08/04/21 [History Confirmed 11/03/21] sennosides 8.6 mg tablet (senna) 17.2 mg PO Q12H PRN 08/04/21 [History Confirmed 11/03/21] diltiazem HCl 180 mg capsule,extended release 24 hr 180 mg PO DAILY 09/08/21 [History Confirmed 11/03/21] insulin lispro 100 unit/mL subcutaneous pen (Humalog KwikPen (U-100) Insulin) 1 sliding scale dose SUBCUT BIDAC 09/08/21 [History Confirmed 11/03/21] melatonin 1 mg tablet 1 mg PO BEDTIME PRN 09/08/21 [History Confirmed 11/03/21] polyethylene glycol 3350 17 gram oral powder packet (Miralax) 17 g PO BID PRN 09/08/21 [History Confirmed 11/03/21] vitamin A and D 1 applic TOPICAL BID 09/08/21 [History Confirmed 11/03/21] diphenhydramine HCl 25 mg capsule (Allergy (diphenhydramine)) 50 mg PO Q6H PRN 10/07/21 [History Confirmed 11/03/21] albuterol sulfate 90 mcg/actuation aerosol inhaler (Ventolin HFA) 2 puff INHALATION Q4HR PRN 11/03/21 [History Confirmed 11/03/21] Visit Medications (administered) Generic Name Dose Route Start Last Admin Trade Name Freq PRN Reason Stop Dose Admin Acetaminophen 650 mg 11/02/21 02:59 11/04/21 16:19 Acetaminophen 325 Mg Tablet PO 650 mg Q6HR PRN Administration Fever/Mild Pain (1-3) Albuterol/Ipratropium 3 ml 11/01/21 08:00 11/06/21 08:19 Albuterol/Ipratropium 3 Ml Ampul INH 3 ml RTBID LORNA Administration Aspirin 81 mg 11/01/21 09:00 11/06/21 09:04 Aspirin Ec 81 Mg Tablet PO 81 mg DAILY LORNA Administration Atorvastatin Calcium 80 mg 11/01/21 21:00 11/05/21 20:35 Atorvastatin 20 Mg Tablet PO 80 mg BEDTIME LORNA Administration Bisacodyl 10 mg 10/31/21 22:18 11/04/21 16:20 Bisacodyl 10 Mg Supp TN 10 mg DAILY PRN Administration Constipation Chlorhexidine Gluconate 15 ml 11/01/21 06:00 11/06/21 08:55 Chlorhexidine Gluconate 15 Ml Cup PO 15 ml Q6HR LORNA Administration Enoxaparin Sodium 150 mg 11/05/21 21:00 11/06/21 08:54 Enoxaparin 150 Mg/Ml Syringe SUBCUT 150 mg BID LORNA Administration Famotidine 20 mg 11/06/21 09:00 11/06/21 09:07 Famotidine 20 Mg/2 Ml Vial IV 20 mg BID LORNA Administration Fentanyl 50 mcg 11/01/21 02:04 11/01/21 16:58 Fentanyl 100 Mcg/2 Ml Inj IV 50 mcg Q1H PRN Administration Agitation Furosemide 40 mg 11/05/21 10:30 11/05/21 11:36 Furosemide 40 Mg/4 Ml Vial IV Not Given 0700,1900 [facility], [facility]1983 Heparin Sodium (Porcine) 50 unit 11/01/21 09:00 11/06/21 09:06 Heparin Flush (Cl/Picc/Mid-Line) 50 Unit/5 Ml Syringe IV 50 unit BID LORNA Administration Fentanyl 1,000 mcg/ Dextrose 250 mls @ 0 mls/hr 11/01/21 20:30 11/06/21 04:55 IV 1.5 mcg/min TITRATE LORNA 22.5 mls/hr Administration Protocol Per Protocol Cefepime HCl 2 gm/ Sodium 100 mls @ 200 mls/hr 11/03/21 12:00 11/06/21 08:55 Chloride IV 11/17/21 04:29 Infused Q8H LORNA Infusion Propofol 1,000 mg in 100 mls @ 4.665 mls/hr 11/03/21 18:30 11/06/21 05:03 Propofol IV 25 mcg/kg/min TITRATE LORNA 23.325 mls/hr Administration Protocol 5 MCG/KG/MIN Norepinephrine Bitartrate 4 mg 254 mls @ 30.48 mls/hr 11/05/21 15:00 11/05/21 20:59 / Dextrose IV 0 mcg/min TITRATE LORNA 0 mls/hr Titration Protocol 8 MCG/MIN POTASSIUM CHLORIDE IN WATER 10 meq in 100 mls @ 100 mls/hr 11/06/21 09:15 11/06/21 09:09 Potassium Cl 10 Meq/100 Ml Cheryle IV 11/06/21 15:14 100 mls/hr Q1H LORNA Administration Insulin Glargine 15 unit 11/05/21 21:00 11/05/21 21:01 Insulin Glargine 100 Unit/Ml 3ml Pen SUBCUT 15 unit BEDTIME LORNA Administration Insulin Human Lispro 0 unit 11/01/21 12:00 11/06/21 09:05 Insulin Lispro 100 Unit/Ml 3ml Vial SUBCUT 1 unit Q6H LORNA Administration Protocol Metoprolol Tartrate 12.5 mg 11/05/21 21:00 11/06/21 08:54 Metoprolol Ir 25 Mg Tablet PO Not Given BID LORNA Nystatin 1 applic 11/01/21 09:00 11/06/21 08:55 Nystatin Cream 30 Gm TOP 1 applic BID LORNA Administration Objective Ventilator Parameters: Ventilator Settings FiO2 55 RT Vent Frequency 20 Ventilator Tidal Volume 390 Exhaled Positive End Expiratory 8 Pressure Ventilator Pressure Support 10 Inspiratory Phase Time 0.90 I:E Ratio 1:2.3 Patient Position HOB >= 30 degrees Labs Result Diagrams: 11/06/21 04:30 11/06/21 04:30 Labs: Laboratory Results - last 24 hr 11/06/21 11/06/21 11/06/21 04:30 04:30 04:30 WBC 7.4 RBC 3.79 L Hgb 11.0 L Hct 34.6 L MCV 91.5 MCH 29.1 MCHC 31.8 RDW 17.3 H Plt Count 167 Neut % (Auto) 65.2 Lymph % (Auto) 17.9 L [place] % (Auto) 11.1 Eos % (Auto) 5.0 H Baso % (Auto) 0.8 Neut # (Auto) 4800 Lymph # (Auto) 1300 [place] # (Auto) 800 Eos # (Auto) 400 Baso # (Auto) 100 Sodium 132 L Potassium 2.9 L Chloride 94 L Carbon Dioxide 35 H BUN 36 H Creatinine 0.81 Estimated GFR > 60.0 BUN/Creatinine Ratio 44.4 H Glucose 174 H Calcium 8.7 Total Bilirubin 0.3 AST 21 ALT 12 Alkaline Phosphatase 55 Total Protein 6.1 L Albumin 3.3 L Globulin 2.8 Albumin/Globulin Ratio 1.2 Digoxin < 0.4 L Exam Vital Signs (past 8 hours): - 11/06/21 03:00 11/06/21 03:15 11/06/21 03:30 Temperature Pulse Rate 63 61 61 Respiratory Rate 20 20 20 Blood Pressure 112/59 L 107/58 L 107/58 L Pulse Oximetry 96 96 96 11/06/21 03:45 11/06/21 04:00 11/06/21 04:15 Temperature Pulse Rate 62 61 63 Respiratory Rate 20 20 20 Blood Pressure 109/60 108/59 L 107/60 Pulse Oximetry 96 96 97 11/06/21 04:30 11/06/21 04:45 11/06/21 05:00 Temperature Pulse Rate 63 60 60 Respiratory Rate 20 20 20 Blood Pressure 108/61 101/55 L 103/58 L Pulse Oximetry 96 96 96 11/06/21 05:15 11/06/21 06:26 11/06/21 07:00 Temperature 97.9 F 98 F Pulse Rate 61 57 L 53 L Respiratory Rate 20 20 20 Blood Pressure 107/59 L 108/61 104/58 L Pulse Oximetry 96 97 95 11/06/21 07:15 11/06/21 07:30 11/06/21 07:45 Temperature Pulse Rate 55 L 53 L 54 L Respiratory Rate 20 20 20 Blood Pressure 105/57 L 104/59 L 106/60 Pulse Oximetry 95 95 95 11/06/21 08:00 11/06/21 08:15 11/06/21 08:30 Temperature Pulse Rate 54 L 53 L 57 L Respiratory Rate 20 20 20 Blood Pressure 105/61 103/60 111/63 Pulse Oximetry 95 95 96 11/06/21 08:45 11/06/21 09:00 11/06/21 09:15 Temperature Pulse Rate 61 65 63 Respiratory Rate 20 20 20 Blood Pressure 110/61 114/65 113/64 Pulse Oximetry 94 94 94 11/06/21 09:30 11/06/21 09:45 11/06/21 10:00 Temperature Pulse Rate 60 64 65 Respiratory Rate 20 20 20 Blood Pressure 111/62 113/63 113/65 Pulse Oximetry 93 94 94 Fraction of Inspired Oxygen 55 Oxygen Delivery Method Mechanical Ventilation Oxygen Flow Rate 60 Quality TeleICU VTE Deep Vein Thrombosis/Pulmonary Embolism Present on Admission: Yes Assessment & Plan Assessment & Plan narrative: Assessment: Acute hypoxic respiratory-improving Pseudomonas PNA E. Coli UTI Septic Shock-resolved Encephalopathy NEURO: # Acute encephalopathy --d/c fentanyl and propofol drip now that pt. is extubated --resume patient's outpatient gabapentin and donepezil as long as patient not lethargic --check ABG for CO2 retention if patient becomes lethargic RESP: Acute hypoxemia respiratory failure-no extubated -- encourage IS --BIPAP when she sleeps for PATRICK/OHS CVS: currently hemodynamically stable off pressors and tolerating diuresis --continue metropolol 12.5 mg BID --restart Diltiazem 90 mg BID as long as HR >90 --aspirin and statin ID: #Pseudomonas PNA?and E. Coli UTI -- On cefepime X 10-14 days FEN/Renal: --reduce Lasix from 40 mg BID to QD given respiratory status has improved and pt. will be NPO for now till she passes swallow eval --monitor and replace K and Mg as needed ENDO: -- BS 150-180s --continue lantus 15 units -- Goal BS < 180 Heme: patient on Lovenox 150 mg BID for AFib GI: NPO for now, if respiratory status remains stable after extubation and pt. passes swallow eval, then advance PO diet as tolerated PPX: lovenox and Famotidine CCT 55 min Time Spent With Patient Critical Care time: I spent a total of [] minutes of critical care time on this patient's care today; this time is exclusive of procedural time.
--- NOTE | 2021-11-06 11:53 | RT ---
Came into room to do vent check to find patient wide awake and answering questions appropriately. Initiated SBT. Patient doing well on 06/30.50% RR 14.
[2021-11-06 12:28] LABS: Fractionated Inspired Oxygen 50; HCO3 ABG 34 mmol/L (22-26); Oxygen Saturation ABG 96 % (95-100); PCO2 ABG 51.9 mmHg (35-45); PO2 ABG 81 mmHg (80-100); TCO2 ABG 35 mmol/L (21-31); pH ABG 7.42 (7.35-7.45)
--- NOTE | 2021-11-06 13:03 | P.PN_ITS ---
Subjective Subjective Date Patient Seen: 11/06/21 Time Patient Seen: 13:03 Interval history: 70-year-old female with a history of obstructive sleep apnea, obesity hy poventilation, COPD, admitted to the hospital 6 day ago so ago for acute respiratory failure. The patient was intubated. She has remained intubated for the past 6 days. She did passed her spontaneous breathing trial today was successfully extubated. Following extubation we asked the patient whether she would like re-intubation if that were required. She indicated she would not like re-intubation. She is now been changed from DNR to DNR and DNI. The patient had significant secretions. She has been suction. Will obtain a swallow evaluation to determine whether she can take oral intake a tomorrow. Exam Vital Signs (past 8 hours): - 11/06/21 05:15 11/06/21 06:26 11/06/21 07:00 Temperature 97.9 F 98 F Pulse Rate 61 57 L 53 L Respiratory Rate 20 20 20 Blood Pressure 107/59 L 108/61 104/58 L Pulse Oximetry 96 97 95 11/06/21 07:15 11/06/21 07:30 11/06/21 07:45 Temperature Pulse Rate 55 L 53 L 54 L Respiratory Rate 20 20 20 Blood Pressure 105/57 L 104/59 L 106/60 Pulse Oximetry 95 95 95 11/06/21 08:00 11/06/21 08:15 11/06/21 08:30 Temperature Pulse Rate 54 L 53 L 57 L Respiratory Rate 20 20 20 Blood Pressure 105/61 103/60 111/63 Pulse Oximetry 95 95 96 11/06/21 08:45 11/06/21 09:00 11/06/21 09:15 Temperature Pulse Rate 61 65 63 Respiratory Rate 20 20 20 Blood Pressure 110/61 114/65 113/64 Pulse Oximetry 94 94 94 11/06/21 09:30 11/06/21 09:45 11/06/21 10:00 Temperature Pulse Rate 60 64 65 Respiratory Rate 20 20 20 Blood Pressure 111/62 113/63 113/65 Pulse Oximetry 93 94 94 11/06/21 10:15 11/06/21 10:30 11/06/21 10:45 Temperature Pulse Rate 62 61 64 Respiratory Rate 20 20 20 Blood Pressure 114/65 114/65 118/69 Pulse Oximetry 94 94 95 11/06/21 11:00 12/12/21 11:15 11/06/21 11:51 Temperature Pulse Rate 65 66 Respiratory Rate 20 20 Blood Pressure 124/70 126/71 Pulse Oximetry 96 95 97 Fraction of Inspired Oxygen 55 Oxygen Delivery Method Mechanical Ventilation Oxygen Flow Rate 60 Narrative Exam Narrative: Elderly female lying in bed recently extubated with significant secretions, however oxygenation is very good Neck Other: Mild erythema on the anterior neck progressing midline and left. Resp Other: Lungs decreased breath sounds with occasional scattered crackles Cardio Other: Cardiac exam: Distant heart tones, normal S1-S2 GI Other: Abdomen: Soft nontender non-distended Extrem Other: 2+ edema Objective Labs Result Diagrams: 11/06/21 04:30 11/06/21 04:30 Labs: Laboratory Results - last 24 hr 11/06/21 11/06/21 11/06/21 04:30 04:30 04:30 WBC 7.4 RBC 3.79 L Hgb 11.0 L Hct 34.6 L MCV 91.5 MCH 29.1 MCHC 31.8 RDW 17.3 H Plt Count 167 Neut % (Auto) 65.2 Lymph % (Auto) 17.9 L Terry % (Auto) 11.1 Eos % (Auto) 5.0 H Baso % (Auto) 0.8 Neut # (Auto) 4800 Lymph # (Auto) 1300 Terry # (Auto) 800 Eos # (Auto) 400 Baso # (Auto) 100 ABG pH ABG pCO2 ABG pO2 ABG HCO3 ABG Total CO2 ABG O2 Saturation ABG Base Excess FiO2 Sodium 132 L Potassium 2.9 L Chloride 94 L Carbon Dioxide 35 H BUN 36 H Creatinine 0.81 Estimated GFR > 60.0 BUN/Creatinine Ratio 44.4 H Glucose 174 H Calcium 8.7 Total Bilirubin 0.3 AST 21 ALT 12 Alkaline Phosphatase 55 Total Protein 6.1 L Albumin 3.3 L Globulin 2.8 Albumin/Globulin Ratio 1.2 Digoxin < 0.4 L 11/06/21 12:20 WBC RBC Hgb Hct MCV MCH MCHC RDW Plt Count Neut % (Auto) Lymph % (Auto) Terry % (Auto) Eos % (Auto) Baso % (Auto) Neut # (Auto) Lymph # (Auto) Terry # (Auto) Eos # (Auto) Baso # (Auto) ABG pH 7.42 ABG pCO2 51.9 H ABG pO2 81 ABG HCO3 34 H ABG Total CO2 35 H ABG O2 Saturation 96 ABG Base Excess 9.0 H FiO2 50 Sodium Potassium Chloride Carbon Dioxide BUN Creatinine Estimated GFR BUN/Creatinine Ratio Glucose Calcium Total Bilirubin AST ALT Alkaline Phosphatase Total Protein Albumin Globulin Albumin/Globulin Ratio Digoxin [facility] Medical History Atrial fibrillation Cholelithiasis Chronic respiratory failure with hypoxia and hypercapnia Depression Diabetes Fracture of left ankle Hyperlipidemia Hypertension Inguinal hernia Iron deficiency anemia Lumbar degenerative disc disease Morbid obesity Obesity hypoventilation syndrome Osteoarthritis Paroxysmal atrial fibrillation Pneumococcal meningitis Prolapsed bladder Surgical History History of abdominoplasty History of gastric bypass Family History Mother Heart disease Father No problems noted. Social History household members: family, children and none Smoking Status: Former smoker alcohol intake: former additional social history: lives alone Assessment & Plan Assessment & Plan narrative: Acute on chronic hypercapnic, hypoxic respiratory failure secondary to gram negative pneumonia with septic shock from UTI and pneumonia -Patient required intubation on October 31 after she did not improve on BiPAP trial -Imaging reveals chronic ground-glass opacity, possibly COPD vs CHF -Patient with probable obesity hypoventilation syndrome -CT PE does not show PE -pseudomonas growing in sputum -will diuresed with lasix -ECHO EF 45-55%, right side of heart difficult to visualize -continue cefepime for now -continue steroids, dexamethasone -COVID negative -spontaneous wake trial, breathing trial daily -patient successfully extubated today, she is now on nasal cannula and oxygenating well -given sensitivities of Pseudomonas will switch her to IV levofloxacin at this time 2. Atrial fibrillation with RVR -ordered metoprolol IV x3, still tachycardic will trial digoxin -ordered for full dose lovenox -replete electrolytes 3. Acute metabolic encephalopathy - Likely occurred the patient's current medications. Due to CO2 narcosis on admission, CO2 improving with ventilation -improving 4. Hypertension -hold chronotropic agents 5. Hyperlipidemia -Continue home atorvastatin 6. Insulin-dependent DM II -Will continue her usual home insulin regimen -Insulin sliding scale -Will continue home aspirin 81 mg daily 7. GERD -Continue PPI with IV famotidine, given that she's intubated, too 8. Dementia, reported per records -Continue donepezil 9. Code status, this is been again discussed with the patient. She indicates she would not like intubation or cardiac resuscitation. Will note that in her record accordingly. I have reviewed and utilized all available Stevens to update confirm her current medications. Time Spent With Patient Critical Care time: I spent a total of [] minutes of critical care time on this patient's care today; this time is exclusive of procedural time. Quality VTE Deep Vein Thrombosis/Pulmonary Embolism Present on Admission: Yes
[2021-11-06] MEDS: CIPROFLOXACIN 400 MG/200 ML PIGGYBACK 200 MG IV (14:16)
[2021-11-06 15:45] LABS: BUN Creatinine Ratio 45.3 (6-22); Blood Urea Nitrogen 29 mg/dL (7-17); Calcium 8.6 mg/dL (8.4-10.2); Carbon Dioxide 35 mmol/L (22-32); Chloride 94 mmol/L (98-107); Estimated Glomerular Filt Rate > 60.0 mL/min (>60); Glucose 193 mg/dL (80-110); HEMOLYSIS < 15 (0-50); Magnesium 2.1 mg/dL (1.6-2.3); Phosphorous 3.2 mg/dL (2.8-4.1); Sodium 131 mmol/L (137-145)
[2021-11-06] MEDS: POTASSIUM CHLORIDE IN WATER 10 MEQ/100 ML PIGGYBACK 200 MEQ IV ×3 (15:56→16:55)
[2021-11-06 17:07] LABS: HEMOLYSIS < 15 (0-50); Potassium 3.4 mmol/L (3.4-5.1)
--- NOTE | 2021-11-06 17:19 | PC.NURSE ---
Patient extubated around noon, on 4L O2 satting 92%. Patient off all drips. still receiving IV abx and replacement K. Patient is A/O to self, place, and situation. Bedside swallow eval caused patient to cough and moderately desaturate. Will keep NPO until speech eval. Latest labs show K at 3.0, will continue replacement IV 60meq and repeat lab 30mins after finishing replacement. Holding lasix dose until K has improved. Patient had small BM, meza in place.
[2021-11-06 18:34] LABS: BUN Creatinine Ratio 41.9 (6-22); Blood Urea Nitrogen 26 mg/dL (7-17); Calcium 8.7 mg/dL (8.4-10.2); Carbon Dioxide 33 mmol/L (22-32); Chloride 94 mmol/L (98-107); Estimated Glomerular Filt Rate > 60.0 mL/min (>60); Glucose 184 mg/dL (80-110); HEMOLYSIS < 15 (0-50); Potassium 3.6 mmol/L (3.4-5.1); Sodium 131 mmol/L (137-145)
[2021-11-06 18:35] LABS: Magnesium 2.1 mg/dL (1.6-2.3)
[2021-11-06] MEDS: DONEPEZIL 5 MG TABLET 20 MG PO (21:07)
[2021-11-06] MEDS: METOPROLOL IR 25 MG TABLET 12.5 MG PO (21:08)
[2021-11-06] MEDS: ATORVASTATIN 20 MG TABLET 80 MG PO (21:08)
[2021-11-06] MEDS: ACETAMINOPHEN 325 MG TABLET 650 MG PO (21:09)
[2021-11-06] MEDS: INSULIN GLARGINE 100 UNIT/ML 3ML PEN SUBCUT (21:11)
--- NOTE | 2021-11-06 22:01 | RT ---
Patient refusing BIPAP NOC
--- NOTE | 2021-11-06 22:19 | PC.NURSE ---
Addendum entered by Tami Yanes R.N. 11/07/21 03:26: Pt turned to right side-lying for a couple hours. Otherwise refused turns/pillows/wedge. Complains that she's not comfortable but is unable to state her needs. Pt mobility very limited, heavy lift. Addendum entered by Tami Yanes R.N. 11/07/21 00:12: As pt sleeps, she desats to 85-89%. Repositioned and oxygen flow increased to 10 LNC. Pt continues to refuse bipap. Original Note: SHIFT: Report received, care assumed 1914. Pt. awake, oriented to self, birthdate, and place; disoriented to situation and generally forgetful. Speaks in a mumble, seems fuzzy, has mild difficulty communicating needs. Irregular heart rhythm, VSS, 4LNC. Has a very wet, weak cough. Occasionally able to expectorate, using Y[place]aur to self-suction oral cavity. Refuses NOC bipap, even after education. Was able to safely and appropriately swallow PO meds in applesauce. C/o headache, treated with tylenol, improved.
[2021-11-07] VITALS (33 sets, daily range): BP systolic 116–130; BP diastolic 69–77; PULSE 67–97; RESP 18–32; TEMP 35.7–36.8; O2SAT 88–98
--- NOTE | 2021-11-07 00:36 | PM.ICURNDS ---
- Date Patient Seen: 11/07/21 Time Patient Seen: 00:36 :: This patient was seen via real time interactive two-way audiovisual telecommunication. Note: Patient was extubated earlier today. Currently on 4 L with non-labored respirations. Swallow eval has been ordered for tomorrow. I ordered nocturnal NIPPV at 12/8 for history of PATRICK--patient has been reportedly noncompliant with this in the outpatient setting and I suspect that she will refuse. Orders reviewed; all remaining items of the ventilator bundle have been discontinued. Plans discussed with RN. Given DNR/DNI code status, she can be downgraded at the hospitalist's discretion.
[2021-11-07] MEDS: CIPROFLOXACIN 400 MG/200 ML PIGGYBACK 200 MG IV ×2 (02:25→12:50)
[2021-11-07] MEDS: ACETAMINOPHEN 325 MG TABLET 650 MG PO (04:35)
[2021-11-07 05:43] LABS: Add Manual Diff / Slide Review NO; Basophils Absolute Auto 100 /uL (0-100); Basophils Percent Auto 0.7 % (0-2); Eosinophils Absolute Auto 300 /uL (0-450); Eosinophils Percent Auto 3.3 % (2-4); Hematocrit 35.8 % (36-46); Hemoglobin 11.5 g/dL (12.0-16.0); Lymphocytes Absolute Auto 700 /uL (1100-4500); Lymphocytes Percent Auto 8.5 % (25-40); Mean Corpuscular HGB Conc 32.1 % (30-36); Mean Corpuscular Volume 90.3 fL (80-100); Monocytes Absolute Auto 900 /uL (0-900); Neutrophils Absolute Auto 6000 /uL (1500-7000); Neutrophils Percent Auto 76.5 % (50-75); Platelet Count 245 X10^3/uL (150-400); Red Blood Cell Count 3.97 X10^6/uL (4.0-5.2); Red Cell Distribution Width 17.2 % (11.6-14.8); White Blood Cell Count 7.9 X10^3/uL (4.5-11.0)
[2021-11-07 06:00] LABS: Alanine Aminotransferase 13 IU/L (<35); Albumin 3.4 g/dL (3.5-5.0); Albumin Globulin Ratio 1.1 (1.0-2.8); Alkaline Phosphatase 63 U/L (38-126); Aspartate Aminotransferase 26 IU/L (14-36); Bilirubin Total 0.7 mg/dL (0.2-1.3); Blood Urea Nitrogen 18 mg/dL (7-17); Calcium 9.1 mg/dL (8.4-10.2); Carbon Dioxide 36 mmol/L (22-32); Chloride 96 mmol/L (98-107); Estimated Glomerular Filt Rate > 60.0 mL/min (>60); Globulin 3.1 g/dL (1.7-4.1); Glucose 160 mg/dL (80-110); HEMOLYSIS < 15 (0-50); Sodium 135 mmol/L (137-145); Total Protein 6.5 g/dL (6.3-8.2)
[2021-11-07 06:01] LABS: Alanine Aminotransferase 13 IU/L (<35); Albumin 3.4 g/dL (3.5-5.0); Albumin Globulin Ratio 1.1 (1.0-2.8); Alkaline Phosphatase 63 U/L (38-126); Aspartate Aminotransferase 26 IU/L (14-36); BUN Creatinine Ratio 33.3 (6-22); Bilirubin Total 0.7 mg/dL (0.2-1.3); Blood Urea Nitrogen 19 mg/dL (7-17); Carbon Dioxide 35 mmol/L (22-32); Chloride 96 mmol/L (98-107); Estimated Glomerular Filt Rate > 60.0 mL/min (>60); Globulin 3.1 g/dL (1.7-4.1); Glucose 159 mg/dL (80-110); HEMOLYSIS < 15 (0-50); Sodium 135 mmol/L (137-145); Total Protein 6.5 g/dL (6.3-8.2)
[2021-11-07 06:09] LABS: NT-proBNP (BNP-Adult 18+) 1230 pg/mL (<125)
[2021-11-07] MEDS: POTASSIUM CHLORIDE IN WATER 10 MEQ/100 ML PIGGYBACK 100 MEQ IV ×4 (06:58→10:34)
--- NOTE | 2021-11-07 08:12 | P.PN_ITS ---
Subjective Subjective Date Patient Seen: 11/07/21 Time Patient Seen: 08:12 Interval history: The patient is a 70-year-old female who was admitted to the hospital for hypercapnic respiratory failure, obesity hypoventilation, obstructive sleep apnea, COPD, who was intubated but extubated yesterday. The patient is sitting up today and has no specific complaints. She is now on 4 L of oxygen. She does have a wet cough. She denies any pain. She would like to get up to a chair. Alem is clear she would not want to be intubated if that were required. We are anticipating a speech evaluation as there was concern about her ability to swallow. She has done remarkably well. Was up to 10 L last night but able to be weaned down to 6 L this morning. On 4 L of oxygen at this time her saturation is 94-95%. Exam Vital Signs (past 8 hours): - 11/07/21 01:00 11/07/21 02:00 11/07/21 02:21 Temperature Pulse Rate 80 73 75 Respiratory Rate 26 H 29 H 25 H Blood Pressure 126/77 Pulse Oximetry 91 91 97 11/07/21 03:00 11/07/21 04:00 11/07/21 04:39 Temperature Pulse Rate 80 70 77 Respiratory Rate 32 H 27 H 28 H Blood Pressure 118/76 Pulse Oximetry 91 88 L 94 11/07/21 05:00 11/07/21 06:00 11/07/21 07:45 Temperature 97.2 F L 96.8 F L Pulse Rate 70 76 74 Respiratory Rate 31 H 31 H 23 Blood Pressure 116/77 Pulse Oximetry 94 92 93 Fraction of Inspired Oxygen 55 Oxygen Delivery Method High Flow Nasal Cannula Oxygen Flow Rate 6 Narrative Exam Narrative: Pleasant female sitting up in bed in no obvious distress Resp Other: Lungs: Coarse scattered rhonchi bilaterally Cardio Other: Cardiac exam: Regular rate and rhythm normal S1-S2 with a 2/6 systolic ejection GI Other: Abdomen: Soft and nontender, nondistended Extrem Other: Her feet are cool, somewhat cyanotic, with trace edema bilaterally Objective Labs Result Diagrams: 11/07/21 05:00 11/07/21 05:00 Labs: Laboratory Results - last 24 hr 11/06/21 11/06/21 11/06/21 12:20 15:20 15:20 WBC RBC Hgb Hct MCV MCH MCHC RDW Plt Count Neut % (Auto) Lymph % (Auto) [place] % (Auto) Eos % (Auto) Baso % (Auto) Neut # (Auto) Lymph # (Auto) [place] # (Auto) Eos # (Auto) Baso # (Auto) ABG pH 7.42 ABG pCO2 51.9 H ABG pO2 81 ABG HCO3 34 H ABG Total CO2 35 H ABG O2 Saturation 96 ABG Base Excess 9.0 H FiO2 50 Sodium 131 L Potassium 3.0 L Chloride 94 L Carbon Dioxide 35 H BUN 29 H Creatinine 0.64 Estimated GFR > 60.0 BUN/Creatinine Ratio 45.3 H Glucose 193 H Calcium 8.6 Phosphorus 3.2 D Magnesium 2.1 Total Bilirubin AST ALT Alkaline Phosphatase NT-Pro-B Natriuret Pep Total Protein Albumin Globulin Albumin/Globulin Ratio 11/06/21 11/06/21 11/06/21 16:50 18:15 18:15 WBC RBC Hgb Hct MCV MCH MCHC RDW Plt Count Neut % (Auto) Lymph % (Auto) [place] % (Auto) Eos % (Auto) Baso % (Auto) Neut # (Auto) Lymph # (Auto) [place] # (Auto) Eos # (Auto) Baso # (Auto) ABG pH ABG pCO2 ABG pO2 ABG HCO3 ABG Total CO2 ABG O2 Saturation ABG Base Excess FiO2 Sodium 131 L Potassium 3.4 Cancelled 3.6 Chloride 94 L Carbon Dioxide 33 H BUN 26 H Creatinine 0.62 Estimated GFR > 60.0 BUN/Creatinine Ratio 41.9 H Glucose 184 H Calcium 8.7 Phosphorus Magnesium 2.1 Total Bilirubin AST ALT Alkaline Phosphatase NT-Pro-B Natriuret Pep Total Protein Albumin Globulin Albumin/Globulin Ratio 11/07/21 11/07/21 11/07/21 05:00 05:00 05:00 WBC 7.9 RBC 3.97 L Hgb 11.5 L Hct 35.8 L MCV 90.3 MCH 29.0 MCHC 32.1 RDW 17.2 H Plt Count 245 Neut % (Auto) 76.5 H Lymph % (Auto) 8.5 L [place] % (Auto) 11.0 Eos % (Auto) 3.3 Baso % (Auto) 0.7 Neut # (Auto) 6000 Lymph # (Auto) 700 L [place] # (Auto) 900 Eos # (Auto) 300 Baso # (Auto) 100 ABG pH ABG pCO2 ABG pO2 ABG HCO3 ABG Total CO2 ABG O2 Saturation ABG Base Excess FiO2 Sodium 135 L 135 L Potassium 3.0 L 3.0 L Chloride 96 L 96 L Carbon Dioxide 36 H 35 H BUN 18 H 19 H Creatinine 0.58 0.57 Estimated GFR > 60.0 > 60.0 BUN/Creatinine Ratio 31.0 H 33.3 H Glucose 160 H 159 H Calcium 9.1 9.0 Phosphorus Magnesium Total Bilirubin 0.7 0.7 AST 26 26 ALT 13 13 Alkaline Phosphatase 63 63 NT-Pro-B Natriuret Pep 1230 H Total Protein 6.5 6.5 Albumin 3.4 L 3.4 L Globulin 3.1 3.1 Albumin/Globulin Ratio 1.1 1.1 PFSH Medical History Atrial fibrillation Cholelithiasis Chronic respiratory failure with hypoxia and hypercapnia Depression Diabetes Fracture of left ankle Hyperlipidemia Hypertension Inguinal hernia Iron deficiency anemia Lumbar degenerative disc disease Morbid obesity Obesity hypoventilation syndrome Osteoarthritis Paroxysmal atrial fibrillation Pneumococcal meningitis Prolapsed bladder Surgical History History of abdominoplasty History of gastric bypass Family History Mother Heart disease Father No problems noted. Social History household members: family, children and none Smoking Status: Former smoker alcohol intake: former additional social history: lives alone Assessment & Plan Assessment & Plan narrative: Acute on chronic hypercapnic, hypoxic respiratory failure secondary to gram neg ative pneumonia with septic shock from UTI and pneumonia -Patient required intubation on October 31 after she did not improve on BiPAP trial -Imaging reveals chronic ground-glass opacity, possibly COPD vs CHF -Patient with probable obesity hypoventilation syndrome -CT PE does not show PE -pseudomonas growing in sputum -will diuresed with lasix -ECHO EF 45-55%, right side of heart difficult to visualize -COVID negative -spontaneous wake trial, breathing trial daily -patient successfully extubated today, she is now on nasal cannula and oxygenating well -given sensitivities of Pseudomonas will switch her to IV levofloxacin at this time -will continue to taper oxygen -patient reiterates she does not want to be intubated if she develops worsening respiratory failure -can continue to use noninvasive ventilation if needed, -recommend palliative care consultation today -proBNP elevated at 1200, will give 1 dose IV Lasix today 9 2. Atrial fibrillation with RVR -ordered metoprolol IV x3, still tachycardic will trial digoxin -ordered for full dose lovenox -replete electrolytes -she continues to be hypokalemic, will replace 3. Acute metabolic encephalopathy - Likely occurred the patient's current medications.? Due to CO2 narcosis on admission, CO2 improving with ventilation -improving 4. Hypertension -hold chronotropic agents 5. Hyperlipidemia -Continue home atorvastatin 6. Insulin-dependent DM II -Will continue her usual home insulin regimen -Insulin sliding scale -Will continue home aspirin 81 mg daily 7. GERD -Continue PPI with IV famotidine, given that she's intubated, too 8. Dementia, reported per records -Continue donepezil 9. Patient will be transferred to the medical floor today, will discontinue Woods catheter, continue to wean oxygen, recommend PT OT consultation Would also recommend palliative care consultation before returning home. I will discuss long-term plans with Dr. Nova rice palliative consultation has been completed. Time Spent With Patient Critical Care time: I spent a total of [] minutes of critical care time on this patient's care today; this time is exclusive of procedural time. Quality VTE Deep Vein Thrombosis/Pulmonary Embolism Present on Admission: Yes
[2021-11-07] MEDS: METOPROLOL IR 25 MG TABLET 12.5 MG PO ×2 (08:18→21:45)
[2021-11-07] MEDS: ASPIRIN EC 81 MG TABLET PO (08:18)
[2021-11-07] MEDS: FAMOTIDINE 20 MG/2 ML VIAL IV ×2 (08:18→21:47)
[2021-11-07] MEDS: ENOXAPARIN 150 MG/ML SYRINGE SUBCUT ×2 (08:18→21:41)
[2021-11-07] MEDS: FUROSEMIDE 40 MG/4 ML VIAL IV (08:30)
[2021-11-07] MEDS: GABAPENTIN 300 MG CAPSULE PO ×3 (09:12→21:44)
[2021-11-07] MEDS: FLUTICASONE 120 SPRAY/16 GM SPRAY.SUSP NASAL (09:12)
[2021-11-07] MEDS: polyethylene glycoL 3350 17 GM POWD.PACK PO ×2 (09:12→21:41)
[2021-11-07] MEDS: SENNOSIDES 8.6 MG TABLET 17.2 MG PO ×2 (09:12→21:41)
[2021-11-07] MEDS: DOCUSATE 100 MG CAPSULE PO ×2 (09:13→21:45)
[2021-11-07] MEDS: NYSTATIN CREAM 30 GM 1 APPLIC TOP (09:17)
--- NOTE | 2021-11-07 09:30 | ST.IPIE ---
Visit Care Team Role Provider Type Johnny Saini MD Primary Care Provider Non-Staff Specialty: Internal Medicine Address: [address] [place], [address] Email: Patel Brannon MD Other Providers Physician Specialty: Medical Address: Phone: Fax: Email: Chiquita Valencia MD Other Providers Physician Specialty: Medical Address: Phone: Fax: Email: LYNNE Nguyen Other Providers Advanced Knitting Machine Operator Automatic Specialty: Family Practice Address: [address] [place] [address], [id number] Email: [email or web address] Brittany Bass MD Other Providers Physician Specialty: Medical Address: Phone: Fax: Email: Jimi Dasilva MD Other Providers Physician Specialty: Medical Address: Phone: Fax: Email: Ovi Arias MD Other Providers Physician Specialty: Internal Medicine Address: Phone: Fax: Email: Davy Gonzalez MD Other Providers Physician Specialty: Medical Address: Phone: Fax: Email: Conor Pacheco MD Other Providers Physician Specialty: Internal Medicine Address: Phone: Fax: Email: Segundo Jerome MD Other Providers Physician Specialty: Medical Address: Phone: Fax: Email: Delmer Bass MD Other Providers Physician Specialty: Medical Address: Phone: Fax: Email: Fabricio Mckeon MD Other Providers Physician Specialty: Medical Address: Phone: Fax: Email: Raji Hernandez MD Other Providers Physician Specialty: Medical Address: Phone: Fax: Email: Erik Odonnell DO Emergency Provider Physician Referring Provider Specialty: Emergency Medicine Address: [address] [place] [address], [id number] Email: [email or web address] Geovanna Sanchez MD Admit Provider Physician Attending Provider Specialty: Internal Medicine Address: [address] [place] [address], [id number] Email: [email or web address] Diagnoses Obstructive sleep apnea (adult) (pediatric) (10/31/21) Acute and chronic respiratory failure with hypoxia (10/31/21) Past Medical History (Last Reviewed 11/07/21 @ 14:09 by LYNNE Nguyen) Atrial fibrillation (Medical) No longer anticoagulated Cholelithiasis (Medical) Chronic respiratory failure with hypoxia and hypercapnia (Medical) Depression (Medical) Diabetes (Medical) Fracture of left ankle (Medical) s/p ORIF with retained hardware History of abdominoplasty (Medical) History of gastric bypass (Medical) Hyperlipidemia (Medical) Hypertension (Medical) Inguinal hernia (Medical) Iron deficiency anemia (Medical) Lumbar degenerative disc disease (Medical) Morbid obesity (Medical) Obesity hypoventilation syndrome (Medical) Osteoarthritis (Medical) Paroxysmal atrial fibrillation (Medical) Patient currently is in sinus rhythm. Will continue to monitor her closely. She remains on Coumadin. Pneumococcal meningitis (Medical) 2007 Prolapsed bladder (Medical) ST IP Initial Evaluation Report PERSONNEL CLERKS SUPERVISOR Clinical Swallow Evaluation Start: 11/07/21 15:43 Freq: Status: Active Protocol: Document 11/07/21 15:43 GIANNI (Rec: 11/07/21 16:14 GIANNI [email or web address]) Clinical Swallow Evaluation Session Time Visit Start Time 08:50 Visit Stop Time 09:20 Total Visit Minutes [address] Geovanna Sanchez Reason for Referral Swallow eval post-extubation Setting Assessment Location Acute Care Visit Type Note Type Initial evaluation Next Note Type Next Note Type Treatment Note Patient Information Identification Type Name,ID Card History Per MD Report: The patient is a 70-year-old female who was admitted to the hospital for hypercapnic respiratory failure, obesity hypoventilation, obstructive sleep apnea, COPD, who was intubated but extubated yesterday. The patient is sitting up today and has no specific complaints. She is now on 4 L of oxygen. She does have a wet cough. She denies any pain. She would like to get up to a chair. Alem is clear she would not want to be intubated if that were required. We are anticipating a speech evaluation as there was concern about her ability to swallow. She has done remarkably well. Was up to 10 L last night but able to be weaned down to 6 L this morning. On 4 L of oxygen at this time her saturation is 94 -95%. Subjective Observations The pt was in seated position in bed, sleeping lightly upon PERSONNEL CLERKS SUPERVISOR arrival. She awaked to voice and was agreeable to swallow evaluation. She was listing to right side with need of frequent boosting with pillows throughout the eval to remain centered. She denied swallow difficulties prior to hospitalization. Both she and her Nurse, Natalia, reported she had swallowed pills in applesauce this morning without difficulty. Reported by Patient Current Diet Nothing by mouth Baseline Feeding Method Independent in self-feeding Objective Assessment Mental Status Alert,Responsive,Cooperative, Lethargic Oral Integrity WFL Dentition Upper dentures/partials,Lower dentures/partials,Adequate denture or partial fitting Lip Function Mild impairment Observation of Lips at Rest Right sided weakness/Drooping Pucker Reduced range of motion, Reduced strength,Right sided weakness/drooping Lip Retraction Reduced range of motion,Right sided weakness/Drooping Alternating Pucker/Lip Retraction Reduced range of motion, Incoordination Tongue Function Within normal limits Observations of Tongue at Rest Within normal limits Tongue Protrusion Within normal limits Tongue Lateralization Reduced strength Jaw Function Within normal limits Observations of Jaw at Rest Within normal limits Jaw Opening Within normal limits Jaw Closing Within normal limits Jaw Lateralization Within normal limits Hard/Soft Palate Function Within normal limits Observations of Hard/Soft Palate Within normal limits Nasality Within normal limits Phonation Within normal limits Respiratory Sufficiency Moderate impairment Comment Generalized weakness, SOB, and inspiratory/expiratory wheezing observed throughout the assessment, both before and after oral trials. Pt was on 4L O2 via [place]. Mild-Moderate right side facial weakness was also observed. Reduced oral motor weakness and coordination noted. Food and Liquid Trials Position During Assessment Slightly reclined,In bed Liquids Trialed Ice chips,Thin,[place] Solids Trialed Puree,Dysphagia Mechanical Administration Type Cup single sip,Controlled cup sip,Straw,Needs some assistance Oral Impairment Mildly impaired Oral Phase Comments Labial escape of thin liquid and applesauce was noted secondary to labial weakness and generalized weakness causing difficulty with self- feeding. Improved oral containment with feeding assistance and with straw. Mildly extensive mastication of diced peaches noted, increasing SOB mildly. No pocketing was observed. AP propulsion and swallow trigger appear to be WFL. Pharyngeal Impairment Mildly impaired Pharyngeal Phase Comments Mild delayed cough noted consistently with thin liquid; absent with ice chips and NTL . No other overt s/sx of aspiration were observed. Inspiratory/expiratory wheezing was present but not worse following oral trials. Fatigue/Endurance Moderate fatigue Comment Self-feeding and mastication increased fatigue levels. Findings Swallowing Function Oropharyngeal phase dysphagia Severity of Swallow Impairment Mildly impaired Contributing Factors to Swallow Reduced oral strength/ Impairment coordination/sensation, Mastication inefficiency, Impaired airway protection Prognosis Good Based on Cognitive status,Family support,Duration of symptoms/ severity Comment Pt presents with mild oropharyngeal dysphagia secondary to generalized weakness. Oral phase dysphagia is secondary to right side facial weakness and extensive mastication, likely contributed by loose fitting dentures (lower dentures were observed to float during mastication). Pharyngeal phase dysphagia is also secondary to weakness of musculature resulting in reduced airway closure, allowing for penetration and possible aspiration of thin liquids. Recommendations for NTL and pureed diet were explained to the pt. Anticipate diet advancement as the pt regains strength. She verbalized understanding and agreement with these recommendations, though she expressed a dislike of NTLs. Prognosis is complicated by comorbidities, particularly pulmonary disease and generalized weakness. Impact on Safety and Functioning Risk for aspiration Recommendations Instrumental Assessment No Swallowing Treatment Yes Frequency 2-3 visits Recommended Solids Puree Recommended Liquids [place] Other Recommendations Ice chips ok. Safety Precautions/Swallowing Feed only when alert,Reduce Recommendations distractions,Remain upright ( 90 degrees) during all oral intake,Upright position at least 30 minutes after meals, Small bites and sips when eating,Slow rate; swallow between bites,Set-up assistance,1 to 1 feeding assistance,Strict oral care after intake,Check for pocketing Medication Recommendations Whole in Carrier Comments Will continue to assess to determine discharge recommendation Education Patient/Caregiver Education Described results of evaluation,Patient expressed understanding of evaluation, Patient expressed agreement with goals & treatment plans, Patient expressed understanding of safety precautions,Patient expressed understanding of feeding recommendations Goals Short-term Goals The pt will follow safe swallow strategies to reduce risk of aspiration and participate in ongoing assessment for safety and diet advancement as indicated. Long-term Goals The pt will tolerate least restrictive diet to meet her nutrition and hydration needs.
--- NOTE | 2021-11-07 11:23 | CM.DPC ---
DCP/continued: Reviewed chart. Per notes patient extubated on 11-06. Dr. Sanchez requesting palliative consult to discuss with patient goals of care and POLST. Therapy evaluations currently pending. Patient resides at [facility] and it is anticipated that she will return there when medically stable. GAMBLING DEALER sent email to palliative provider/Tiffanie Silveira with request for palliative evaluation. In addition, provider put in order for consult. Placed call to [facility] and spoke with Elysia. She does not anticipate any issues with accepting patient back when she is stable but clinical will need to be reviewed. Currently unclear on whether or not patient back to baseline? Therapy following closely and recommend either SNF vs. return to [facility]. P: Pending. ANSLEY
--- NOTE | 2021-11-07 11:30 | PT.IIE ---
Current Diagnoses Obstructive sleep apnea (adult) (pediatric) (10/31/21) Acute and chronic respiratory failure with hypoxia (10/31/21) Medical History (Last Reviewed 11/01/21 @ 00:35 by Erik Odonnell DO) Atrial fibrillation Cholelithiasis Chronic respiratory failure with hypoxia and hypercapnia Depression Diabetes Fracture of left ankle Hyperlipidemia Hypertension Inguinal hernia Iron deficiency anemia Lumbar degenerative disc disease Morbid obesity Obesity hypoventilation syndrome Osteoarthritis Paroxysmal atrial fibrillation Pneumococcal meningitis Prolapsed bladder Physical Therapy Inpatient Evaluation/Re-Eval M1 PT/OT-IP Prior Functional Status Start: 11/07/21 08:52 Freq: NEEDED Status: Active Protocol: Document 11/07/21 11:30 JG (Rec: 11/07/21 11:48 JG [id number]) Medical Review Prior Functional Status Medical History Reviewed Yes Diet/Fluid Consistency Pureed Communication Pt was not able to communicate her needs fully as she was slow to respond to questions, did not provide appropriate answers numerous times, and said Oh no or Oh god several times but was not able to express what was bothering her. Pt was not accurate historian and history was gathered previously from [facility] where she resides. Mobility and Gait At baseline, pt is able to indep - min A move supine w/ HOB elevated to EOB. Uses elena lift to move from bed to power wc. Uses power wc for all mob. Activities of Daily Living and IADL's Req assistance for all ADLs Social History Household Members none Living Arrangements Assisted Living Number of Floors (Floors) One Floor Number of Stairs To Enter/Railing? None Home Equipment Power Wheelchair/Scooter, Mechanical Lift,Hospital Bed, Bed Rails Employment Status Unemployed M2 PT-IP Current Condition Start: 11/07/21 08:52 Freq: NEEDED Status: Active Protocol: Document 11/07/21 11:30 JG (Rec: 11/07/21 11:48 JG [id number]) Physical Therapy Current Condition Current Condition Evaluation Date 11/07/21 Treatment Diagnosis COPD exacerbation, decreased mobility, weakness, incoordination M3 PT-IP Subjective Start: 11/07/21 08:52 Freq: NEEDED Status: Active Protocol: Document 11/07/21 11:30 JG (Rec: 11/07/21 11:51 JG [id number]) Subjective Physical Therapy Visit Type Type Initial Evaluation Visit Start Time 11:04 Visit Stop Time 11:30 Total Visit Minutes 26 Notes SPT Carmen was directly supervised by DPLacie Stubbs Number of AGRICULTURAL EXTENSION AGENT Visits 0 Physical Therapy Visit Comments Patient Comments Pt was agreeable to PT after needing to be roused. Pt said she would try to get to EOB. Therapy Pain Assessment Pain When Pain Assessed At Rest Pain Present Pain Present Denied Pain M4 PT-IP Mobility and Gait Start: 11/07/21 08:52 Freq: NEEDED Status: Active Protocol: Document 11/07/21 11:30 JG (Rec: 11/07/21 12:00 JG [id number]) PT-Bed Mobility Assessment Rolling Type of Rolling Log Rolling,Roll to Right,Roll to Left,Bilateral Level of Assist Maximal Assistance,2 Person Assistance Supine to Sit Supine to Sit Total Assistance,2 Person Assistance,Head of Bed Elevated,Bedrails Sit to Supine Sit to Supine Total Assistance,2 Person Assistance,Head of Bed Elevated,Bedrails Scooting Scooting to Edge of Bed Dependent Scooting Up and Down in Bed Dependent PT-Transfer Assessment Transfer Ability Level of Assist Total Assistance,2 Person Assistance Comments Mobility Comments Pt req 2-3 P providing max to total assist for all bed mob. Pt attempted to initiate movement, but would forget what she was doing and had quick, short, and small joint movements. Pt was not able to maintain balance at EOB even w /UE support. Pt's O2 saturation oscillated btw low 80s and 90s very rapidly during bed mob and conversation. Gait Assessment Comments Gait Comments Gait was not assessed Stair Climbing Assessment Comments Stair Climbing Comments Stairs were not assessed PT-Balance Assessment Sitting Balance and Reactions Static Sitting Balance Ability Poor Comments Other Balance Tests/Deviations/Treatment Pt req max A 2P to maintain : EOB balance. M5 PT-IP Objective Assessments Start: 11/07/21 08:52 Freq: NEEDED Status: Active Protocol: Document 11/07/21 11:30 AW (Rec: 11/07/21 12:03 AW [id number]) Orientation Orientation/Cognition Level of Alertness Alert Orientation Name,Place,Situation Language Function Ability No Deficits Noted Safety Awareness Understands Safety Issues Gross Range of Motion Lower Extremity ROM Assessment Within Functional Limits Strength Lower Extremity Strength Assessment Bilaterally Impaired Comments Strength Comments Pt is unable to flex her hips in supine. She is minimally able to move her legs toward left EOB, requiring max assist ultimately. M6 PT-IP Treatment Start: 11/07/21 08:52 Freq: NEEDED Status: Active Protocol: Document 11/07/21 11:30 AW (Rec: 11/07/21 12:03 AW [id number]) Physical Therapy Treatment Education Education Provided Safety M7 PT-IP Assessment and Plan Start: 11/07/21 08:52 Freq: NEEDED Status: Active Protocol: Document 11/07/21 11:30 AW (Rec: 11/07/21 12:03 AW [id number]) PT Summary Assessment and Plan Potential Rehabilitation Potential Fair Status of Condition at Evaluation Evolving Summary Impairments Strength,Balance,Bed Mobility, Transfers Assessment Summary Alem is a 70 yo woman admitted with acute hypoxic and hypercapneic respiratory failure. She typically requires elena lift for transfers and mobilizes with power wheelchair. She receives assist with all ADL's at [facility]. Per facility staff, she is typically able to sit up EOB unsupported. On evaluation, she required max assist x 3 for bed mobility and assist to maintain seated balance at edge of bed. SpO2 dropped to 80% with activity on 2.5L O2. Depending on progress and [facility] ability to provide increased level of assist, PT recommends SNF vs back to [facility] with home health services. Goals Bed Mobility Goal Minimal Assistance Other Goals - Improve bed mobility to CGA - Pt to sit EOB unsupported 5 minutes to improve her ability to participate in her own care. Frequency of Treatment Frequency Of Treatment Once a Day Treatment Plan Physical Therapy Treatment Plan Bed Mobility Training,Transfer Training Other Recommendations and Next Treatment bed mobility; supine and Focus seated ther ex as tolerated Recommendations To Nursing Amount of Assist Needed 3 or More Person Assist Discharge Recommendations PT Discharge Recommendations Home with 18/06 Assist Available,Home Health,Home vs SNF Transportation Needs at Discharge Wheelchair/Cabulance Treatment was provided by Carmen Jin, JOY and supervised by Evelyne Back, PT. I personally reviewed this note and agree with its contents.
--- NOTE | 2021-11-07 11:30 | OT.IP.EVAL ---
Current Diagnoses Obstructive sleep apnea (adult) (pediatric) (10/31/21) Acute and chronic respiratory failure with hypoxia (10/31/21) Past Medical History (Last Reviewed 11/01/21 @ 00:35 by Erik Odonnell DO) Atrial fibrillation Cholelithiasis Chronic respiratory failure with hypoxia and hypercapnia Depression Diabetes Fracture of left ankle History of abdominoplasty History of gastric bypass Hyperlipidemia Hypertension Inguinal hernia Iron deficiency anemia Lumbar degenerative disc disease Morbid obesity Obesity hypoventilation syndrome Osteoarthritis Paroxysmal atrial fibrillation Pneumococcal meningitis Prolapsed bladder Surgical History (Last Reviewed 11/01/21 @ 00:35 by Erik Odonnell DO) History of abdominoplasty History of gastric bypass Occupational Therapy Inpatient Evaluation/Re-Eval M1 PT/OT-IP Prior Functional Status Start: 11/07/21 08:52 Freq: NEEDED Status: Active Protocol: Document 11/07/21 11:30 JG (Rec: 11/07/21 11:48 JG [id number]) Medical Review Prior Functional Status Medical History Reviewed Yes Diet/Fluid Consistency Pureed Communication Pt was not able to communicate her needs fully as she was slow to respond to questions, did not provide appropriate answers numerous times, and said Oh no or Oh god several times but was not able to express what was bothering her. Pt was not accurate historian and history was gathered previously from [facility] where she resides. Mobility and Gait At baseline, pt is able to indep - min A move supine w/ HOB elevated to EOB. Uses hover lift to move from bed to power wc. Uses power wc for all amb. Activities of Daily Living and IADL's Req assistance for all ADLs Social History Household Members none Living Arrangements Assisted Living Number of Floors (Floors) One Floor Number of Stairs To Enter/Railing? None Home Equipment Power Wheelchair/Scooter, Mechanical Lift,Hospital Bed, Bed Rails Employment Status Unemployed M2 OT-IP Current Condition Start: 11/07/21 12:33 Freq: Status: Active Protocol: Document 11/07/21 11:02 [facility] (Rec: 11/07/21 12:50 [facility] [id number]) Occupational Therapy Current Condition Current Condition Evaluation Date 11/07/21 Treatment Diagnosis Hypercapnic respiratory failure, decreased mobility Diagnosis Onset Date 10/31/21 M3 OT- IP Subjective and Pain Start: 11/07/21 12:33 Freq: Status: Active Protocol: Document 11/07/21 11:02 [facility] (Rec: 11/07/21 12:50 [facility] [id number]) OT- Subjective Occupational Therapy Visit Type Type Initial Evaluation Visit Start Time 11:02 Visit Stop Time 11:30 Total Visit Minutes 28 Occupational Therapy Visit Comments Patient Comments Pt initially not wanting to get use when approached earlier and then agrees to get up at 11am. Patient/Caregiver Goals To go home. OT Pain Assessment Pain When Pain Assessed At Rest Pain Present Pain Present Denied Pain M4 OT- IP ADL's Start: 11/07/21 12:33 Freq: Status: Active Protocol: Document 11/07/21 11:02 [facility] (Rec: 11/07/21 12:50 [facility] [id number]) OT ADL-Grooming Comments OT Grooming Comments Pt only able to wash the bottom of her face due to decreased strength and AROM in BUE. OT ADL-Oral Care Comments Oral Care Comments Pt did not want to perform. OT ADL-Dressing General Eval Lower Body Dressing Ability Total Assistance OT ADL-Toileting Comments OT Toileting Comments Woods in place. OT ADL-Bathing Comments OT Bathing Comments Sponge bath more appropriate at this time. M5 OT- IP IADL's Start: 11/07/21 12:33 Freq: Status: Active Protocol: Document 11/07/21 11:02 [facility] (Rec: 11/07/21 12:50 [facility] [id number]) OT-Instrumental Activities of Daily Living Home Safety Awareness Awareness of Need for Assistance at Home Decreased Awareness M6 OT- IP Functional Cognition Start: 11/07/21 12:33 Freq: Status: Active Protocol: Document 11/07/21 11:02 [facility] (Rec: 11/07/21 12:50 [facility] [id number]) Cognitive Factors Limiting Selfcare Function Cognitive Ability Level of Alertness Confusional State Patient Orientation Name Attention Span Ability Capable of Focused Attention, Unable to Sustain Attention Ability to Follow Commands Able to Follow One Step Commands with Increased Time, Able to Follow One Step Commands with Repetition Cognitive Comments Cognitive Assessment Comments Pt bit drowsy and sleepy and needing simple concrete commands to follow in addition to tactile cues. Pt able to states her needs and wants. OT- Vision and Hearing OT- Vision Assessment Visual Acuity Glasses All The Time M7 OT- IP Mobility and Balance Start: 11/07/21 12:33 Freq: Status: Active Protocol: Document 11/07/21 11:02 [facility] (Rec: 11/07/21 12:50 [facility] [id number]) OT- Bed Mobility Assessment Rolling Type of Rolling Roll to Right Level of Assistance Total Assistance,2 Person Assistance,Head of Bed Elevated,Bedrails Supine to Sit Supine to Sit Assist Maximum Assistance,Total Assistance,2 Person Assistance ,Bedrails Sit to Supine Sit to Supine Assist Total Assistance,2 Person Assistance OT-Transfer Assessment Comments Mobility Comments MAX A/Total assist 2-3 to get to the edge of the bed. Pt able to assist a little to move her right leg to the edge of the bed. Otherwise total assist at this time and heavy use of green pad to assist. Pt needing MAXA x1-2 to sit at the edge of the bed and then immediately wanting to lie back down. OT- Balance Assessment Sitting Balance and Reactions Static Sitting Balance Ability Poor Dynamic Sitting Balance Ability Poor M8 OT- IP Objective Assessments Start: 11/07/21 12:33 Freq: Status: Active Protocol: Document 11/07/21 11:02 [facility] (Rec: 11/07/21 12:50 [facility] [id number]) OT Gross Range of Motion Upper Extremity Range of Motion Assessment Bilaterally Impaired OT Strength Upper Extremity Strength Assessment Bilaterally Impaired M9 OT- IP Assessment and Plan Start: 11/07/21 12:33 Freq: Status: Active Protocol: Document 11/07/21 11:02 [facility] (Rec: 11/07/21 12:50 [facility] [id number]) OT Summary Assessment and Plan Potential Rehabilitation Potential Fair Analytic Complexity at Evaluation Moderate Summary OT Impairments Range of Motion,Strength, Balance,Functional Cognition, Functional Mobility,Self- Feeding,Grooming,Activity Tolerance Progress Towards Goals Slow Progress due to Medical Issues,Slow Progress due to Activity Tolerance,Slow Progress due to Cognition Assessment Summary Pt MOD complexity and main barrier is decreased activity tolerance, sitting balance, and overall strength. Pt prior was able to sit at the edge of the bed with SBA but now needing total Ax3 to get to the edge of the bed and MAX AX 1-2 to sit for a few seconds . Pt would benefit from increased assist at her assisted living and home health versus skilled rehab pending her progress. Pt states wants to go back to [place] [facility]. Goals Self-Feeding Goal Standby Assistance Grooming Goal Standby Assistance Dressing Goal Moderate Assistance Days to Meet Goals 20 Frequency of Treatment Frequency Of Treatment Once a Day Treatment Plan OT Treatment Plan ADL Training,Functional Cognition Training,Functional Mobility,Patient/Family Education,Discharge Planning Other Treatment Recommendations and Next grooming Treatment Focus Discharge Recommendations OT Discharge Recommendations Home Health,SNF Rehab,LTAC, Home vs SNF Transportation Needs at Discharge Wheelchair/Cabulance
[2021-11-07] MEDS: INSULIN LISPRO 100 UNIT/ML 3ML VIAL SUBCUT ×2 (12:50→17:39)
--- NOTE | 2021-11-07 13:46 | PM.CN.PC.1 ---
History of Present Illness Consult details Date Patient Seen: 11/07/21 Time Patient Seen: 15:45 Chief complaint: hypoxic event earlier today, better now Reason for consult: Palliative Medicine Consultation Requesting provider: Geovanna Sanchez Narrative: Reason for Consultation: Palliative medicine consultation received from Dr. Sanchez regarding this 70F patient Alem Donahue, who presented to the emergency department 10/31/2021 from the [facility] where she resides with shortness of breath and hypoxemia despite increasing levels of oxygen. Pt on 3-4L of O2 via nasal cannula at baseline. Patient was noted to be lethargic upon arrival, and a room air ABG revealed ph 7.4, pCO2 of 75 PO2 of 47 bicarb a 47 O2 sat of 80%, lactate was 0.8, WBC 5.8 hemoglobin 11.6 hematocrit 37.8, D-dimer was elevated at 560, proBNP also elevated 784.? Chest x-ray revealed cardiomegaly, and diffuse ground-glass opacities which were felt to be chronic. Patient unresponsive and encephalopathic after a trial of BiPAP in the ER, and she was intubated by the team after calling patient's family. Patient was transferred to the ICU for aggressive treatment of her acute on chronic respiratory failure. Patient ultimately was able to be extubated successfully last night (11/06/21) and was weaned down from 10L of oxygen to her baseline of 4L at rest. She has made it clear to the medical team that she wishes to not be intubated again should she suffer acute respiratory failure again. It is noted that this unfortunate woman was recently discharged from [facility] 10/08/21 with COVID-19 infection and acute on chronic respiratory failure, after being weaned down to her baseline oxygen at 3-4L via nasal cannula. The current admission is her 4th admission since July. She was admit to this facility once in July, once 09/08/21 - 09/09/21 for lethargy and acute on chronic respiratory failure, also visited the ER on 09/14/21 for melanous stools (H&H stable, was told to follow up with general surgery for a diagnostic colonoscopy). She also spent the night overnight 08/03/21 thru 08/04/21 for a COPD exacerbation. Per Dr. Sanchez, the patient is well known to hospitalists. Her multiple hospitalizations have been related to some variation around respiratory failure. Dr. Sanchez reports that the patient has had periods of noncompliance with her O2 and BiPAP, then sometimes will participate fully in recommended therapies. She was intubated in the ER after consultation with son. Per Dr. Sanchez, the patient better today than she ever looked since she has known the patient, and that she has been clear to the medical team that she does not wish to be intubated again. The patient's daughter has told the medical team that she has discussed hospice previously with her mother, and that she has refused hospice. 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 The medical team wishes to get a clear picture of patient's desires regarding end of life, and will plan to follow up with the patient's primary provider, Dr. Humphries re: plan for the future. Per the medical team, the patient's prognosis is challenging to state, but is likely limited to months; she wouldn't be surprised if this patient succumbed to her COPD or a complication of it in the next year. Past Medical History: COPD Chronic hypoxic hypercapnic respiratory failure atrial fibrillation without anticoagulation Type 2 diabetes hyperlipidemia iron deficiency anemia Class 3 obesity COVID19 September 2021 with hospitalization 10/06/21-10/08/21 Social History: Patient resides at [facility]. Patient reports herself unmarried. Patient has two children. Her son Kvng is noted to be her [facility] , and he has signed a [place] POLST that is incongruent in limitation statements, wishing for DNAR but full treatment. Patient also has a daughter named Brionna . Son Kvng reports that his mother lost her mother, her significant other, and a very good friend within a year. After that, he reports his mother hoarded things in her home, which was a very small 1 bedroom apartment. He reports that for example new dressers showed up in her living room, he doesn't really know how. Because of the patient's profound general decline in clinical status over months, frailty evident by weakness, frequent hospitalizations over the past 4 months, inability to provide of adequate self care, severe malnutrition (dramatic, unintentional weight loss, fatigue, lethargy) and given the possibility of an underlying, incurable medical illness, the medical team is of the belief that life expectancy is limited to months though unable to place a number on how many, however, has requested clarification of this woman's specific medical goals due to frequent hospitalizations and ventilator admissions over the past year. Reason for consultation Attending physician has requested palliative medicine to assist in furthering conversation with patient and family regarding the complex and sensitive medical issues of the perceived benefits/burdens of continued life prolonging treatments, realistic prognosis, perspectives on and dying, priority in clinical care and burden of physical, emotional and spiritual symptoms for patient and family. I have reviewed the medical record, radiographs, diagnostics, attempted to interview the patient (disoriented, no registration) and subsequently interviewed the patient DPOAHC. The following aspects are pertinent, current and remote medical history, social/emotional and family dynamics, current medications and effects, ROS, examination findings, prognosis, care planning, goal setting. Meds Home Medications and Allergies Home Medications Medication Instructions Recorded Confirmed Type aspirin 81 mg tablet,delayed 81 mg PO DAILY 04/12/18 11/03/21 History release ursodiol 300 mg capsule 300 mg PO BID 04/12/18 11/03/21 History gabapentin 300 mg capsule 300 mg PO TID 09/04/18 11/03/21 History atorvastatin 80 mg tablet 80 mg PO BEDTIME 09/25/18 11/03/21 History torsemide 20 mg tablet 1 tab PO QAM 09/25/18 11/03/21 History cetirizine 10 mg tablet (Allergy 1 tab PO DAILY 02/13/19 11/03/21 History Relief (cetirizine)) acetaminophen 500 mg tablet 1,000 mg PO BID 08/04/21 11/03/21 History donepezil 10 mg tablet 20 mg PO QAM 08/04/21 11/03/21 History fluticasone fur. 100 mcg-umeclid 1 inh INHALATION DAILY 08/04/21 11/03/21 History 62.5 mcg-vilant 25 mcg inhalat.powder insulin glargine 100 unit/mL (3 9 unit SUBCUT BEDTIME 08/04/21 11/03/21 History mL) subcutaneous pen (Lantus Solostar U-100 Insulin) loperamide 2 mg tablet 2 mg PO Q24H PRN 08/04/21 11/03/21 History metoprolol tartrate 25 mg tablet 12.5 mg PO BID 08/04/21 11/03/21 History nystatin 100,000 unit/gram topical 100,000 unit TOPICAL BID 08/04/21 11/03/21 History powder ondansetron HCl 4 mg tablet 4 mg PO Q6HR PRN 08/04/21 11/03/21 History pantoprazole 20 mg tablet,delayed 20 mg PO DAILY 08/04/21 11/03/21 History release potassium chloride 10 mEq 20 meq PO DAILYCC 08/04/21 11/03/21 History tablet,extended release(part/cryst) (Klor-Con M) sennosides 8.6 mg tablet (senna) 17.2 mg PO Q12H PRN 08/04/21 11/03/21 History diltiazem HCl 180 mg 180 mg PO DAILY 09/08/21 11/03/21 History capsule,extended release 24 hr insulin lispro 100 unit/mL 1 sliding scale dose SUBCUT BIDAC 09/08/21 11/03/21 History subcutaneous pen (Humalog KwikPen (U-100) Insulin) melatonin 1 mg tablet 1 mg PO BEDTIME PRN 09/08/21 11/03/21 History polyethylene glycol 3350 17 gram 17 g PO BID PRN 09/08/21 11/03/21 History oral powder packet (Miralax) vitamin A and D 1 applic TOPICAL BID 09/08/21 11/03/21 History diphenhydramine HCl 25 mg capsule 50 mg PO Q6H PRN 10/07/21 11/03/21 History (Allergy (diphenhydramine)) albuterol sulfate 90 mcg/actuation 2 puff INHALATION Q4HR PRN 11/03/21 11/03/21 History aerosol inhaler (Ventolin HFA) Allergies Allergy/AdvReac Type Severity Reaction Status Date / Time captopril [CAPTOPRIL] Allergy Unknown Verified 09/30/21 08:14 nabumetone [NABUMETONE] Allergy Unknown Rash Verified 09/30/21 08:14 Review of Systems Constitutional Constitutional: Reports as per HPI Exam Vital Signs (past 8 hours): - 11/07/21 06:00 11/07/21 07:45 11/07/21 10:04 Temperature 97.2 F L 96.8 F L Pulse Rate 76 74 67 Respiratory Rate 31 H 23 Blood Pressure 116/77 Pulse Oximetry 92 93 94 Fraction of Inspired Oxygen 55 Oxygen Delivery Method High Flow Nasal Cannula Oxygen Flow Rate 4 Narrative Exam Narrative: 70F is visited at bedside today for the purposes of this palliative medicine consultation. Patient is roused from a deep sleep. She states that she is at [facility] and aware that it is October. She is also responding to internal stimuli, stating several times that she is concerned about the bugs in the room, and asks if this author can see the finely tailored outfit over there. Const General: cooperative, comfortable, well groomed and ill appearing (chronically) Nutritional Appearance: obese (Class 3 obesity) morbidly obese (bmi 55.5) Orientation: oriented to person and oriented to time Other: Responding to internal stimuli, as above. Resp Effort & Inspection: normal respiratory effort, able to speak in complete sentences and cough (Moist) Quality of cough: wet Neuro General: patient alert and oriented (self, time (month)) Psych Mental Status: mental status grossly normal Speech and Movement: delayed speech Mood: congruent mood Affect: indifferent Attitude: cooperative Thought Process: illogical Thought Content: hallucinations (Endorses seeing insects and someone tailoring an outfit at end of bed.) visual Judgment: poor Objective Labs Result Diagrams: 11/09/21 08:20 11/09/21 08:20 Labs: Laboratory Results - last 24 hr 11/06/21 11/06/21 11/06/21 15:20 15:20 16:50 WBC RBC Hgb Hct MCV MCH MCHC RDW Plt Count Neut % (Auto) Lymph % (Auto) [place] % (Auto) Eos % (Auto) Baso % (Auto) Neut # (Auto) Lymph # (Auto) [place] # (Auto) Eos # (Auto) Baso # (Auto) Sodium 131 L Potassium 3.0 L 3.4 Chloride 94 L Carbon Dioxide 35 H BUN 29 H Creatinine 0.64 Estimated GFR > 60.0 BUN/Creatinine Ratio 45.3 H Glucose 193 H Calcium 8.6 Phosphorus 3.2 D Magnesium 2.1 Total Bilirubin AST ALT Alkaline Phosphatase NT-Pro-B Natriuret Pep Total Protein Albumin Globulin Albumin/Globulin Ratio 11/06/21 11/06/21 11/07/21 18:15 18:15 05:00 WBC RBC Hgb Hct MCV MCH MCHC RDW Plt Count Neut % (Auto) Lymph % (Auto) [place] % (Auto) Eos % (Auto) Baso % (Auto) Neut # (Auto) Lymph # (Auto) [place] # (Auto) Eos # (Auto) Baso # (Auto) Sodium 131 L 135 L Potassium Cancelled 3.6 3.0 L Chloride 94 L 96 L Carbon Dioxide 33 H 36 H BUN 26 H 18 H Creatinine 0.62 0.58 Estimated GFR > 60.0 > 60.0 BUN/Creatinine Ratio 41.9 H 31.0 H Glucose 184 H 160 H Calcium 8.7 9.1 Phosphorus Magnesium 2.1 Total Bilirubin 0.7 AST 26 ALT 13 Alkaline Phosphatase 63 NT-Pro-B Natriuret Pep Total Protein 6.5 Albumin 3.4 L Globulin 3.1 Albumin/Globulin Ratio 1.1 11/07/21 11/07/21 05:00 05:00 WBC 7.9 RBC 3.97 L Hgb 11.5 L Hct 35.8 L MCV 90.3 MCH 29.0 MCHC 32.1 RDW 17.2 H Plt Count 245 Neut % (Auto) 76.5 H Lymph % (Auto) 8.5 L [place] % (Auto) 11.0 Eos % (Auto) 3.3 Baso % (Auto) 0.7 Neut # (Auto) 6000 Lymph # (Auto) 700 L [place] # (Auto) 900 Eos # (Auto) 300 Baso # (Auto) 100 Sodium 135 L Potassium 3.0 L Chloride 96 L Carbon Dioxide 35 H BUN 19 H Creatinine 0.57 Estimated GFR > 60.0 BUN/Creatinine Ratio 33.3 H Glucose 159 H Calcium 9.0 Phosphorus Magnesium Total Bilirubin 0.7 AST 26 ALT 13 Alkaline Phosphatase 63 NT-Pro-B Natriuret Pep 1230 H Total Protein 6.5 Albumin 3.4 L Globulin 3.1 Albumin/Globulin Ratio 1.1 Assessment & Recommendations A & R narrative: Discussion: Met with the patient at bedside. She is very clear that she does not wish to be on a ventilator again, states she does not wish to be tied again, but seems to lack ability to clearly understand that not being intubated while in extremus may result in her should she presents in acute respiratory failure once again. Currently, patient is suffering from visual and possibly auditory hallucinations. She gives permission to discuss case with her son and daughter. 1646: Met with patient's son Kvng by phone. Reports that his mother has been on a ventilator 5 times over the past year, and had de-escalated her code status earlier this year, preferring to not be on a vent again. Reports his mother changed her mind about DNAR when she was diagnosed with COVID-19, and his mother wanted to be resuscitated suddenly, demanding her son come to the ER at the hospital to reverse her DNAR. He feels like this has been a roller coaster here at the hospital being intubated this time, had not been waking up and was prepared to compassionately withdraw care, then she suddenly woke up the same day and she was able to be therapeutically extubated. Son reports that he and his have tried very hard to help his mother get a living will, and his mother has repeatedly refused, citing paranoid thoughts that her children will take away my ability to make decisions for myself. They were able finally to get a DPAHC signed by their mother, but both he and his sister feel like their mother is cornering them into making decisions for her is not fair to them. Reports his mother has told everyone including her sisters and other family that she does not wish to be on ventilators/breathing tubes, but feels he has worked hard to honor his mother's wishes, but feels whiplash from her changing her mind about her wishes for the end of life. He and his sister have discussed extensively with their mother comfort care and hospice and she has refused services. He reports approximately 2 years ago patient fell while living in her own home independently because she wasn't wearing oxygen, and fractured her femur. She had to have her leg pinned at [place] for surgery and was sent to [facility] for rehab. She has lived since that time in assisted living, at [facility]. He reports that his mother seems happy there even though he is not sure how good the care has been for her. Sometime during summer 2019, patient was sent to a neurologist. His sister accompanied their mother, and she was diagnosed with dementia at that appointment. He never remembers her suffering from hallucinations previously however. Reports he tried to speak with his mother today, and she was unable to hear him, likely due to TV being too loud. Kvng reports he and his sister want to continue to advocate for his mother's wishes, but wants their mother to make decisions for herself, rather than feeling they are making decision makers for her. Kvng has been the one who has been the one to arrange for their mother's care for the past several years. Kvng expresses feeling relieved that his mother has made means that he can honor her wish, should Son is willing to come in tomorrow to discuss further with the medical team and his mother her wishes regarding care at the end of life. Impression: - Acute on chronic hypercapneic respiratory failure (improved) - Altered mental status (improved) - Visual hallucinations - Encephalopathy (improved) - COPD - back at baseline O2 needs 3L via nasal cannula - Obstructive sleep apnea - Class 3 obesity - Reported history of Dementia - Palliative medicine consultation Recommendations: - Maintain DNAR/DNI in patient chart - Update POLST if paitent willing to complete Coding: To remain informed regarding current treatment opportunities, provider reviewed extensive additional documentation of multiple treatment providers/facilities which was utilized to update the management plan. Total time in review of additional medical information is 40 minutes, external to in person evaluation. Time in assessment and management of acute and chronic medical diagnoses, pertinent history to palliative medicine decision making, discussion and management of clinical findings enumerated above as well as fears regarding the transition to a more end of life plan and and dying is 42 minutes, more than half of which is necessary for education and counseling. Advanced Care Planning discussion time is 15 minutes. The patient currently has testamentary documents for estate planning, DPOAHC and POLST and statement of wishes, that may need to be updated. Dialogue addresses patient preferences at the end/near end of life including resuscitation wishes (no CPR, DNAR). Additional care limits discussed above. Time Spent With Patient Time with patient: Greater than 35 minutes
--- NOTE | 2021-11-07 14:37 | DIET.PN1 ---
Dietary Progress Note RD Note: Pt sucessfully extubated on 11/06, cleared by speech therapy for dysphagia puree/nectar thick diet. Kitchen to send ONS Ensure Max c lunches to support high protein needs of this morbidly obese patient. Ht: 167.64 cm Wt: 156 kg BMI: 59.8 Last BM: 11/06/21 (11/06/21 15:48) MNA: 10 Demetrius Score: 16 Diet: 11/07/21 Lunch Dysphagia Diet Diet Modifications: Liquid consistency: Luxora Consistency Food texture: Dysphagia Pureed Labs: RBC 3.97 X10^6/uL (4.0-5.2) L 11/07/21 05:00 Hgb 11.5 g/dL (12.0-16.0) L 11/07/21 05:00 Hct 35.8 % (36-46) L 11/07/21 05:00 Creatinine 0.57 mg/dL (0.52-1.04) 11/07/21 05:00 Creatinine 0.58 mg/dL (0.52-1.04) 11/07/21 05:00 Lactate 0.8 mmol/L (0.7-2.1) 10/31/21 19:50 NT-Pro-B Natriuret Pep 1230 pg/mL (<125) H 11/07/21 05:00 Monitoring/Evaluations: POs, ONS tolerance Electronically Signed by: Cynthia Santoyo 11/07/21 14:37 Clinical Dietitian [address] [address]
--- NOTE | 2021-11-07 17:48 | PC.NURSE ---
PT ABLE TO WEANED DOWN TO 2L NC-UP TO CHAIR USING MECHANICAL LIFT- PT DID WORK WITH PT/OT AND UNABLE TO SIT UNASSISTED ON EDGE OF BED. SHE IS NOW FLOOR CARE WITH NO TELE AND HAD MEETING WITH LYNNE IBARRA RE: PALLIATIVE CARE- UNSURE OF PTS UNDERSTANDING OF THIS BUT SHE DOES KNOW AND STATE THAT SHE DOES NOT WISH TO BE VENTILATED AGAIN- 2 LUMEN PICC/MIDLINE PATENT AND ORDER RECEIVED TO REMOVE WRIGHT CATHETER - PLAN TO ALLOW THIS TO REMAIN IN FOR THE NOC SHIFT AND REMOVE FIRST THING IN AM PT INITIALLY REFUSES TO HAVE REMOVED AND IS UNABLE TO GET UP TO BSC AND IS LARGELY INCONTINENT
[2021-11-07] MEDS: DONEPEZIL 5 MG TABLET 20 MG PO (21:41)
[2021-11-07] MEDS: QUETIAPINE 25 MG TABLET 12.5 MG PO (21:41)
[2021-11-07] MEDS: ATORVASTATIN 20 MG TABLET 80 MG PO (21:44)
[2021-11-07] MEDS: INSULIN GLARGINE 100 UNIT/ML 3ML PEN SUBCUT (21:48)
--- NOTE | 2021-11-07 22:17 | PC.NURSE ---
SHIFT: Report received, care assumed 1914. Pt initially awake, alert. Answers questions of orientation appropriately, but also makes statements indicated confusion (e.g., she told me she spent half the day in [facility]). Per PT earlier in the day, was unable to hold herself up in a sitting position at the edge of bed; also demonstrates inability to hold herself up in the bed. She is always dependent, either on the back of the bed or slumped forward or leaning off to the right. When she leans to the right, her face droops. Bed tilted back so that she will lay back rather than slump forward and further impair her breathing. Unable or unwilling to reposition herself in the bed; completely dependent on staff to shift her weight and change her position, which task requires a minimum of 3 people to perform safely. Order received to discontinue meza. However, due to pt's body habitus and immobility, this RN believes it would do the patient more harm than good to discontinue catheter. Left in place at this time for patient comfort, skin integrity, and staff safety. VSS, 2LNC. Dysphagia diet. Pt swallowed pills safely in applesauce carrier.
[2021-11-08] VITALS (12 sets, daily range): BP systolic 107–114; BP diastolic 61–75; PULSE 67–87; RESP 15–30; TEMP 36.1–36.6; O2SAT 91–95
[2021-11-08] MEDS: CIPROFLOXACIN 400 MG/200 ML PIGGYBACK 200 MG IV ×2 (02:19→13:56)
[2021-11-08 08:40] LABS: Add Manual Diff / Slide Review NO; Basophils Absolute Auto 100 /uL (0-100); Basophils Percent Auto 0.7 % (0-2); Eosinophils Absolute Auto 200 /uL (0-450); Eosinophils Percent Auto 2.4 % (2-4); Hematocrit 33.5 % (36-46); Hemoglobin 10.8 g/dL (12.0-16.0); Lymphocytes Absolute Auto 800 /uL (1100-4500); Lymphocytes Percent Auto 10.1 % (25-40); Mean Corpuscular HGB Conc 32.2 % (30-36); Mean Corpuscular Hemoglobin 29.1 PG (26-34); Mean Corpuscular Volume 90.3 fL (80-100); Monocytes Absolute Auto 1000 /uL (0-900); Neutrophils Absolute Auto 6100 /uL (1500-7000); Neutrophils Percent Auto 74.8 % (50-75); Platelet Count 310 X10^3/uL (150-400); Red Blood Cell Count 3.71 X10^6/uL (4.0-5.2); Red Cell Distribution Width 16.9 % (11.6-14.8); White Blood Cell Count 8.1 X10^3/uL (4.5-11.0)
[2021-11-08 08:52] LABS: Alanine Aminotransferase 13 IU/L (<35); Albumin 3.5 g/dL (3.5-5.0); Albumin Globulin Ratio 1.2 (1.0-2.8); Alkaline Phosphatase 63 U/L (38-126); Aspartate Aminotransferase 24 IU/L (14-36); Bilirubin Total 0.7 mg/dL (0.2-1.3); Blood Urea Nitrogen 16 mg/dL (7-17); Calcium 8.8 mg/dL (8.4-10.2); Carbon Dioxide 38 mmol/L (22-32); Chloride 95 mmol/L (98-107); Estimated Glomerular Filt Rate > 60.0 mL/min (>60); Globulin 2.9 g/dL (1.7-4.1); Glucose 161 mg/dL (80-110); HEMOLYSIS < 15 (0-50); Potassium 3.2 mmol/L (3.4-5.1); Sodium 136 mmol/L (137-145); Total Protein 6.4 g/dL (6.3-8.2)
[2021-11-08] MEDS: ASPIRIN EC 81 MG TABLET PO (09:19)
[2021-11-08] MEDS: DOCUSATE 100 MG CAPSULE PO ×2 (09:19→21:26)
[2021-11-08] MEDS: SENNOSIDES 8.6 MG TABLET 17.2 MG PO ×2 (09:19→21:27)
[2021-11-08] MEDS: METOPROLOL IR 25 MG TABLET 12.5 MG PO ×2 (09:19→21:27)
[2021-11-08] MEDS: GABAPENTIN 300 MG CAPSULE PO ×3 (09:19→21:26)
[2021-11-08] MEDS: ENOXAPARIN 150 MG/ML SYRINGE SUBCUT ×2 (09:19→21:26)
[2021-11-08] MEDS: FAMOTIDINE 20 MG/2 ML VIAL IV ×2 (09:20→21:33)
[2021-11-08] MEDS: polyethylene glycoL 3350 17 GM POWD.PACK PO ×2 (09:20→21:26)
[2021-11-08] MEDS: INSULIN LISPRO 100 UNIT/ML 3ML VIAL SUBCUT ×3 (09:21→17:37)
[2021-11-08] MEDS: ALBUTEROL/IPRATROPIUM 3 ML AMPUL INH ×2 (10:45→18:33)
--- NOTE | 2021-11-08 11:30 | CM.DPNOTE ---
Faxed updated clinicals per Zoya to [facility] and received fax conf. Nathalia Franco CM Asst.
--- NOTE | 2021-11-08 13:29 | PT.IPTN ---
Current Diagnoses Obstructive sleep apnea (adult) (pediatric) (10/31/21) Acute and chronic respiratory failure with hypoxia (10/31/21) Physical Therapy Treatment Note M2 PT-IP Current Condition Start: 11/07/21 08:52 Freq: NEEDED Status: Active Protocol: Document 11/07/21 11:30 JG (Rec: 11/07/21 11:48 JG [id number]) Physical Therapy Current Condition Current Condition Evaluation Date 11/07/21 Treatment Diagnosis COPD exacerbation, decreased mobility, weakness, incoordination M3 PT-IP Subjective Start: 11/07/21 08:52 Freq: NEEDED Status: Active Protocol: Document 11/08/21 13:05 KS (Rec: 11/08/21 13:59 KS [id number]) Subjective Physical Therapy Visit Type Type Treatment Note Visit Start Time 13:05 Visit Stop Time 13:29 Total Visit Minutes 24 Notes Co-treat w/ OT Number of WHALE FISHERMAN Visits 1 Physical Therapy Visit Comments Patient Comments Pt was agreeable to PT after needing to be roused. Pt said she was trying to get back into bed. M4 PT-IP Mobility and Gait Start: 11/07/21 08:52 Freq: NEEDED Status: Active Protocol: Document 11/08/21 13:05 KS (Rec: 11/08/21 13:59 KS [id number]) PT-Bed Mobility Assessment Rolling Type of Rolling Log Rolling,Roll to Right,Roll to Left,Bilateral Level of Assist Maximal Assistance,2 Person Assistance Sit to Supine Sit to Supine Total Assistance,2 Person Assistance,Head of Bed Elevated,Bedrails PT-Transfer Assessment Transfer Ability Level of Assist Total Assistance,2 Person Assistance Comments Mobility Comments Pt in chair and difficult to rouse, unable to sit up from chair. OT present for co-treat , RN present for [facility] . Pt required elena lift to EOB, unable to maintain seated balance requiring Total A and then pt requeste to lay down, elena lift to position patient from sitting EOB to laying in bed. Total A x3 for logroll to L and R to remove elena and place brief. Pt falling asleep during mobility , attempted to do ankle pumps, but unable to remain awake. Gait Assessment Comments Gait Comments Pt unable. Stair Climbing Assessment Comments Stair Climbing Comments Stairs were not assessed PT-Balance Assessment Sitting Balance and Reactions Static Sitting Balance Ability Poor Comments Other Balance Tests/Deviations/Treatment Pt Total A for seated balance : EOB and unable to tolerate, requesting to lay down. M5 PT-IP Objective Assessments Start: 11/07/21 08:52 Freq: NEEDED Status: Active Protocol: Document 11/07/21 11:30 AW (Rec: 11/07/21 12:03 AW [id number]) Orientation Orientation/Cognition Level of Alertness Alert Orientation Name,Place,Situation Language Function Ability No Deficits Noted Safety Awareness Understands Safety Issues Gross Range of Motion Lower Extremity ROM Assessment Within Functional Limits Strength Lower Extremity Strength Assessment Bilaterally Impaired Comments Strength Comments Pt is unable to flex her hips in supine. She is minimally able to move her legs toward left EOB, requiring max assist ultimately. M6 PT-IP Treatment Start: 11/07/21 08:52 Freq: NEEDED Status: Active Protocol: Document 11/08/21 13:05 KS (Rec: 11/08/21 13:59 KS [id number]) Physical Therapy Treatment Exercises Exercises Ankle Pumps Education Education Provided Safety M7 PT-IP Assessment and Plan Start: 11/07/21 08:52 Freq: NEEDED Status: Active Protocol: Document 11/08/21 13:05 KS (Rec: 11/08/21 13:59 KS [id number]) PT Summary Assessment and Plan Potential Rehabilitation Potential Poor Status of Condition at Evaluation Evolving Summary Impairments Strength,Balance,Bed Mobility, Transfers Assessment Summary Pt continues to require mechanical lift for transfers and Total A for seated balance , Total A x3 for logroll L and R. She had difficulty remaining awake and was unwilling to participate further due to fatigue. Per facility and pt, pt can typically sit EOB on her own, but is now far from able. SpO2 dropped to mid 80s w/ transfer. She will need terminal manager care placement for her needs. Goals Bed Mobility Goal Minimal Assistance Other Goals - Improve bed mobility to CGA - Pt to sit EOB unsupported 5 minutes to improve her ability to participate in her own care. Frequency of Treatment Frequency Of Treatment Once a Day Treatment Plan Physical Therapy Treatment Plan Bed Mobility Training,Transfer Training Other Recommendations and Next Treatment bed mobility; supine and Focus seated ther ex as tolerated Recommendations To Nursing Amount of Assist Needed 3 or More Person Assist, Mechanical Lift Discharge Recommendations PT Discharge Recommendations LTAC Transportation Needs at Discharge Wheelchair/Cabulance
--- NOTE | 2021-11-08 13:29 | OT.IP.TRT ---
Current Diagnoses Obstructive sleep apnea (adult) (pediatric) (10/31/21) Acute and chronic respiratory failure with hypoxia (10/31/21) Occupational Therapy Treatment Note M2 OT-IP Current Condition Start: 11/07/21 12:33 Freq: Status: Active Protocol: Document 11/07/21 11:02 [facility] (Rec: 11/07/21 12:50 [facility] [id number]) Occupational Therapy Current Condition Current Condition Evaluation Date 11/07/21 Treatment Diagnosis Hypercapnic respiratory failure, decreased mobility Diagnosis Onset Date 10/31/21 M3 OT- IP Subjective and Pain Start: 11/07/21 12:33 Freq: Status: Active Protocol: Document 11/08/21 13:31 [facility] (Rec: 11/08/21 13:37 [facility] [id number]) OT- Subjective Occupational Therapy Visit Type Type Treatment Note Visit Start Time 13:05 Visit Stop Time 13:29 Total Visit Minutes 24 Occupational Therapy Visit Comments Patient Comments Pt drowsy and having a hard time to keep her eyes open. Patient/Caregiver Goals To go home. OT Pain Assessment Pain When Pain Assessed During Mobility Pain Present Pain Present Pain Reported M4 OT- IP ADL's Start: 11/07/21 12:33 Freq: Status: Active Protocol: Document 11/07/21 11:02 [facility] (Rec: 11/07/21 12:50 [facility] [id number]) OT ADL-Grooming Comments OT Grooming Comments Pt only able to wash the bottom of her face due to decreased strength and AROm in BUE. OT ADL-Oral Care Comments Oral Care Comments Pt did not want to perform. OT ADL-Dressing General Eval Lower Body Dressing Ability Total Assistance OT ADL-Toileting Comments OT Toileting Comments Woods in place. OT ADL-Bathing Comments OT Bathing Comments Sponge bath more appropriate at this time. M5 OT- IP IADL's Start: 11/07/21 12:33 Freq: Status: Active Protocol: Document 11/07/21 11:02 [facility] (Rec: 11/07/21 12:50 [facility] [id number]) OT-Instrumental Activities of Daily Living Home Safety Awareness Awareness of Need for Assistance at Home Decreased Awareness M6 OT- IP Functional Cognition Start: 11/07/21 12:33 Freq: Status: Active Protocol: Document 11/08/21 13:31 [facility] (Rec: 11/08/21 13:37 [facility] [id number]) Cognitive Factors Limiting Selfcare Function Cognitive Ability Level of Alertness Confusional State,Drowsy Patient Orientation Name Attention Span Ability Capable of Focused Attention, Unable to Sustain Attention Ability to Follow Commands Able to Follow One Step Commands with Increased Time, Able to Follow One Step Commands with Repetition Cognitive Comments Cognitive Assessment Comments Pt very drowsy and falling asleep while trying to assist her with mobility needs. M7 OT- IP Mobility and Balance Start: 11/07/21 12:33 Freq: Status: Active Protocol: Document 11/08/21 13:31 [facility] (Rec: 11/08/21 13:37 [facility] [id number]) OT- Bed Mobility Assessment Rolling Type of Rolling Roll to Right Level of Assistance Total Assistance,2 Person Assistance,Head of Bed Elevated,Bedrails Supine to Sit Supine to Sit Assist Total Assistance,2 Person Assistance Sit to Supine Sit to Supine Assist Total Assistance,2 Person Assistance OT-Transfer Assessment Devices Transfer Assistive Devices Mechanical Lift Comments Mobility Comments Use of elena lift to help get back to bed. Attempted to work on sitting balance with [employer] SEPARATION with elena lift on and pt unable to hold herself up and needing total assist and then use of elena to get into supine. OT- Balance Assessment Sitting Balance and Reactions Static Sitting Balance Ability Poor Dynamic Sitting Balance Ability Poor M8 OT- IP Objective Assessments Start: 11/07/21 12:33 Freq: Status: Active Protocol: Document 11/07/21 11:02 [facility] (Rec: 11/07/21 12:50 [facility] [id number]) OT Gross Range of Motion Upper Extremity Range of Motion Assessment Bilaterally Impaired OT Strength Upper Extremity Strength Assessment Bilaterally Impaired M9 OT- IP Assessment and Plan Start: 11/07/21 12:33 Freq: Status: Active Protocol: Document 11/08/21 13:31 [facility] (Rec: 11/08/21 13:37 [facility] [id number]) OT Summary Assessment and Plan Potential Rehabilitation Potential Poor Analytic Complexity at Evaluation Moderate Summary OT Impairments Range of Motion,Strength, Balance,Functional Cognition, Functional Mobility,Self- Feeding,Grooming,Activity Tolerance Progress Towards Goals Slow Progress due to Medical Issues,Slow Progress due to Activity Tolerance,Slow Progress due to Cognition Pt slow to respond to commands. Pt however did state at [place] was initially able to sit on the edge of the bed to be able to do some dressing needs on her own, however as time passes pt states has gotten weaker and not able to assist for dressing needs as much. Goals Self-Feeding Goal Standby Assistance Grooming Goal Standby Assistance Days to Meet Goals 20 Frequency of Treatment Frequency Of Treatment Once a Day Treatment Plan OT Treatment Plan ADL Training,Functional Cognition Training,Functional Mobility,Patient/Family Education,Discharge Planning Other Treatment Recommendations and Next grooming Treatment Focus Discharge Recommendations OT Discharge Recommendations LTAC Transportation Needs at Discharge Stretcher/Ambulance
[2021-11-08] MEDS: POTASSIUM CHLORIDE 20 MEQ TAB 40 MEQ PO ×2 (13:56→17:44)
[2021-11-08] MEDS: ACETAMINOPHEN 325 MG TABLET 650 MG PO ×2 (13:56→19:09)
--- NOTE | 2021-11-08 15:28 | ST.IPDYTX ---
Visit Care Team Role Provider Type Johnny Saini MD Primary Care Provider Non-Staff Specialty: Internal Medicine Address: [address] [place], [address] Email: Patel Brannon MD Other Providers Physician Specialty: Medical Address: Phone: Fax: Email: Chiquita Valencia MD Other Providers Physician Specialty: Medical Address: Phone: Fax: Email: LYNNE Nguyen Other Providers Advanced Chief Clerk Specialty: Family Practice Address: [address] [place] [address], [id number] Email: [email or web address] Brittany Bass MD Other Providers Physician Specialty: Medical Address: Phone: Fax: Email: Jimi Dasilva MD Other Providers Physician Specialty: Medical Address: Phone: Fax: Email: Ovi Arias MD Other Providers Physician Specialty: Internal Medicine Address: Phone: Fax: Email: Davy Gonzalez MD Other Providers Physician Specialty: Medical Address: Phone: Fax: Email: Conor Pacheco MD Other Providers Physician Specialty: Internal Medicine Address: Phone: Fax: Email: Segundo Jerome MD Other Providers Physician Specialty: Medical Address: Phone: Fax: Email: Delmer Bass MD Other Providers Physician Specialty: Medical Address: Phone: Fax: Email: Fabricio Mckeon MD Other Providers Physician Specialty: Medical Address: Phone: Fax: Email: Raji Hernandez MD Other Providers Physician Specialty: Medical Address: Phone: Fax: Email: Erik Odonnell DO Emergency Provider Physician Referring Provider Specialty: Emergency Medicine Address: [address] [place] [address], [address] Email: [email or web address] Geovanna Sanchez MD Admit Provider Physician Attending Provider Specialty: Internal Medicine Address: [address] [place] [address], [address] Email: [email or web address] WATCHMAN Dysphagia Treatment [employer]ILRO[employer] WATCHMAN Dysphagia Treatment Start: 11/07/21 15:43 Freq: Status: Active Protocol: Document 11/08/21 10:09 DEXK (Rec: 11/08/21 10:24 LNK [id number]) Dysphagia Treatment Session Time Visit Start Time 09:25 Visit Stop Time 09:50 Total Visit Minutes 25 Setting Assessment Location Acute Care Visit Type Note Type Re-Evaluation Patient Information Identification Type Name,ID Wristband Subjective Observations Pt in bed. Needed to position pt for swallow trials. 3 person assist. Pt refused to eat breakfast. Treatment Liquids Trialed Thin Solids Trialed Puree,Dysphagia Mechanical Administration Type Tea Spoon,Straw,Self-Feeding Oral Strategies Upright at 90 degrees,Lingual Sweep,Controlled Bite/Sip Size Pharyngeal Strategies Sitting Upright (90 deg),Small Bites and Sips Treatment Activities Trial dysphagia mechanical with egg salad and toast (no crust) was safely swallowed, as was thin water with straw. Pt's dentures loose filling and floating in mouth as pt masticated, increasing mastication time. Pt refused polygrip to better seat dentures. Pt safely tolerated the trials of thin water and dysphagia mechanical with no over s/s aspiration. Slight throat clearing observed; however it appeared to be related to pt's respiratory status. Assessment Patient Response to Treatment Good Rehab Potential Good Assessment of Improvement Diet upgrade Diet Recommendations Recommendations Upgrade Diet Order Liquids Order Thin Diet Order Dysphagia Mechanical Medication Recommendations Whole in Carrier Additional Dietary Needs Single Sips,Controlled Sips Aspiration Precautions Recommended Precautions Upright at 90 Degrees,Frequent Rest Periods,Small Bites/Sips ,Lingual Sweep,Check for Pocketing Additional Precautions Needs assistance with set up Treatment Plan Placement Recommendation after Discharge Multicultural Manager Care Facility Appropriate for Continued Therapy Yes Therapy Recommendations Continue 1-2x/day while inpatient status Dysphagia Goals The pt will follow safe swallow strategies to reduce risk of aspiration and participate in ongoing assessment for safety and diet advancement as indicated.
--- NOTE | 2021-11-08 15:39 | PC.NURSE ---
Pt agreeable to get OOB to chair today. Pt is a max 2PA with elena lift for transfers, consistent with baseline. She is oriented to person/place/time/situation but is forgetful and will ask repetitive questions. Requiring 4L O2 via high flow NC to keep SPO2 greater than 88%. Pt does frequently remove NC and will desat to 85% but quickly recovers with re application of O2. Pt states O2 accidentally fell out despite measures to secure O2 in place. Plan is to have palliative care conference with pt/family to discuss goals of care later this afternoon.
--- NOTE | 2021-11-08 16:27 | CM.DPC ---
DCP/continued: Reviewed chart. Per provider patient most likely will be ready to d/c within the next 24-48hrs. All records faxed to [place] for review. In addition, ELECTRIC MOTOR TESTER met with patient this afternoon. Patient reports that she feels very weak. Patient agreeable to short SNF stay at [facility] if covered by her insurance. ELECTRIC MOTOR TESTER spoke with provider and she supports patient either returning to [place] with home health vs. [facility]. ELECTRIC MOTOR TESTER asked Anais at [facility] to review. Anais reports that they can accept and she believes that she can get authorization on 11-09-21. In addition to the above, Dr. Sanchez spoke with son about patient's frequent visits to ED in respiratory failure. Son supports patient being DNR/DNI. Dr. Sanchez may need POLST form prior to patient's departure. Patient needs CPAP/BIPAP for nighttime use but never followed up with outpatient appointment. Son reports that the out of pocket cost for sleepy study was too much? Patient has Medicaid as secondary so unclear why it would not have been covered. Current plan is [facility] if authorization can be obtained within the next 24hrs. If unable or patient denied SNF then plan is to return to [place] with home health. P: Pending. PASSR will need to be completed for SNF and F2F will need to be completed for home health. ELECTRIC MOTOR TESTER hopeful patient will be able to do short stay at [facility]. ANSLEY
--- NOTE | 2021-11-08 16:39 | PM.PN.1 ---
Subjective Subjective Date Patient Seen: 11/08/21 Interval history: The patient is a 70-year-old female with a history of chronic hypoxic respiratory failure, obesity hypoventilation, obstructive sleep apnea, COPD, who was admitted to the hospital with acute on chronic hypercapnic respiratory failure. She required intubation. After several days she was successfully extubated. The patient does remain confused. However she does admit that she does not want intubation and would like to be DNR. Apparently marked the attempted to have BiPAP as an outpatient but required a sleep study which she was unable to obtain. As such she has not been on BiPAP while at [facility]. However we have attempted to use BiPAP here and she has refused and has been unwilling to cooperate with BiPAP use. Despite that she continues to have minimal cough. Her oxygenation has improved. She is now down to 2 L of oxygen Exam Vital Signs (past 8 hours): - 11/08/21 10:56 11/08/21 12:00 11/08/21 16:00 Temperature 97.4 F L 97.8 F Pulse Rate 78 82 74 Respiratory Rate 28 H 24 22 Blood Pressure 109/61 109/71 Pulse Oximetry 95 93 92 Fraction of Inspired Oxygen 55 Oxygen Delivery Method Nasal Cannula Oxygen Flow Rate 2 Narrative Exam Narrative: Pleasant female resting comfortably Resp Other: Lungs: Diffuse rhonchi bilaterally, wet sounding rhonchi bilaterally Cardio Other: Cardiac exam: Regular rate and rhythm normal S1-S2 GI Other: Abdomen: Soft nontender nondistended Skin Other: Feet are cool, mildly cyanotic but with palpable pulses Extrem Other: No edema Psych Other: No hallucinations today, however she at times is confused she is oriented to where she is, answers questions appropriate Objective Labs Result Diagrams: 11/08/21 08:15 11/08/21 08:15 Labs: Laboratory Results - last 24 hr 11/08/21 11/08/21 08:15 08:15 WBC 8.1 RBC 3.71 L Hgb 10.8 L Hct 33.5 L MCV 90.3 MCH 29.1 MCHC 32.2 RDW 16.9 H Plt Count 310 Neut % (Auto) 74.8 Lymph % (Auto) 10.1 L [place] % (Auto) 12.0 Eos % (Auto) 2.4 Baso % (Auto) 0.7 Neut # (Auto) 6100 Lymph # (Auto) 800 L [place] # (Auto) 1000 H Eos # (Auto) 200 Baso # (Auto) 100 Sodium 136 L Potassium 3.2 L Chloride 95 L Carbon Dioxide 38 H BUN 16 Creatinine 0.64 Estimated GFR > 60.0 BUN/Creatinine Ratio 25.0 H Glucose 161 H Calcium 8.8 Total Bilirubin 0.7 AST 24 ALT 13 Alkaline Phosphatase 63 Total Protein 6.4 Albumin 3.5 Globulin 2.9 Albumin/Globulin Ratio 1.2 PFSH Medical History Atrial fibrillation Cholelithiasis Chronic respiratory failure with hypoxia and hypercapnia Depression Diabetes Fracture of left ankle Hyperlipidemia Hypertension Inguinal hernia Iron deficiency anemia Lumbar degenerative disc disease Morbid obesity Obesity hypoventilation syndrome Osteoarthritis Paroxysmal atrial fibrillation Pneumococcal meningitis Prolapsed bladder Surgical History History of abdominoplasty History of gastric bypass Family History Mother Heart disease Father No problems noted. Social History household members: none Smoking Status: Former smoker alcohol intake: former additional social history: lives alone Assessment & Plan Assessment & Plan narrative: Acute on chronic hypercapnic, hypoxic respiratory failure secondary to gram negative pneumonia with septic shock from UTI and pneumonia -Patient required intubation on October 31 after she did not improve on BiPAP trial -Imaging reveals chronic ground-glass opacity, possibly COPD vs CHF -Patient with probable obesity hypoventilation syndrome -CT PE does not show PE -pseudomonas growing in sputum -will diuresed with lasix -ECHO EF 45-55%, right side of heart difficult to visualize -COVID negative -spontaneous wake trial, breathing trial daily -patient successfully extubated today, she is now on nasal cannula and oxygenating well -given sensitivities of Pseudomonas will switch her to IV levofloxacin at this time -will continue to taper oxygen -patient reiterates she does not want to be intubated if she develops worsening respiratory failure -can continue to use noninvasive ventilation if needed, -recommend palliative care consultation today -proBNP elevated at 1200, will give 1 dose IV Lasix today -patient is DNR DNI -appreciate palliative care consult from Tiffanie olu After conversation with the son the patient will be transferred [facility] to [facility]. Should she have another recurrent episode acute hypoxemia the plan at that time will be to transition her to comfort care only. The patient is not been cooperative with BiPAP, this is likely precipitating her respiratory decline. Plans underway to transfer her tomorrow 2. Atrial fibrillation with RVR -ordered metoprolol IV x3, still tachycardic will trial digoxin -ordered for full dose lovenox -replete electrolytes -she continues to be hypokalemic, will replace 3. Acute metabolic encephalopathy - Likely occurred the patient's current medications.? Due to CO2 narcosis on admission, CO2 improving with ventilation -improving 4. Hypertension -hold chronotropic agents 5. Hyperlipidemia -Continue home atorvastatin 6. Insulin-dependent DM II -Will continue her usual home insulin regimen -Insulin sliding scale -Will continue home aspirin 81 mg daily 7. GERD -Continue PPI with IV famotidine, given that she's intubated, too 8. Dementia, reported per records -Continue donepezil 9. Patient will be transferred to the medical floor today, Will discuss long-term plan with Dr. Humphries Time Spent With Patient Critical Care time: I spent a total of [] minutes of critical care time on this patient's care today; this time is exclusive of procedural time. Quality VTE Deep Vein Thrombosis/Pulmonary Embolism Present on Admission: Yes
[2021-11-08] MEDS: QUETIAPINE 25 MG TABLET 12.5 MG PO (21:26)
[2021-11-08] MEDS: ATORVASTATIN 20 MG TABLET 80 MG PO (21:26)
[2021-11-08] MEDS: INSULIN GLARGINE 100 UNIT/ML 3ML PEN SUBCUT (21:26)
--- NOTE | 2021-11-08 22:43 | RT ---
At 2105, checked pt's SpO2. Pt's SpO2 on 2 LPM NC is 92%. Educated pt on benefits of APAP, pt refusing to use it.
[2021-11-09] VITALS (8 sets, daily range): BP systolic 109–129; BP diastolic 70–78; PULSE 80–101; RESP 17–24; TEMP 36.6; O2SAT 88–95
[2021-11-09] MEDS: CIPROFLOXACIN 400 MG/200 ML PIGGYBACK 200 MG IV ×2 (03:15→12:52)
--- NOTE | 2021-11-09 08:08 | P.DS_ITS ---
History of Present Illness History of Present Illness Chief complaint: hypoxic event earlier today, better now Narrative: The patient is a 70-year-old female with a history of COPD, chronic hypoxic hypercapnic respiratory failure, atrial fibrillation not anticoagulated, type 2 diabetes, hypertension, hyperlipidemia, iron deficiency anemia, morbid obesity, recent history of COVID who was hospitalized and discharged October 08, 2021. She has been hospitalized in July and September of this year. She was discharged from the hospital after an episode of acute hypoxic respiratory failure. The patient was initially placed on heated high-flow oxygen in ultimately able to be rapidly tapered down to 3-4 L which is her baseline. She remained stable was discharged back home. She was sent back to the emergency department from [facility] due to progressive hypoxemia despite increasing levels of oxygen. On arrival the patient was quite lethargic. A room air ABG was obtained which revealed a pH is 7.4 pCO2 of 75 PO2 of 47 bicarb a 47 O2 sat of 80%. Her lactate was 0.8. White count was 5.8 hemoglobin 11.6 hematocrit 37.8, D-dimer was elevated at 560. Her proBNP was 784. Chest x-ray revealed cardiomegaly, and diffuse ground-glass opacities which were felt to be chronic. The patient was quite lethargic, minimally responsive, and ultimately felt to be obtained id. She was placed on BiPAP and still unresponsive. Patient was found to have pinpoint pupils. It she will be given Narcan in a decision will be made whether the patient needs intubation or whether she can continue to tolerate BiPAP. The patient was placed on BiPAP in the emergency room. She is DNR however her family would like her to be intubated if needed. The patient is encephalopathic, unresponsive, and unable to provide any further history. She is admitted to the hospital for progressive acute on chronic hypoxic respiratory failure Discharge Providers Provider Date of admission: 10/31/21 21:45 Discharge Date: 11/09/21 Primary care physician: Johnny Saini MD Consults: 10/31/21 19:05 Consult to Respiratory Therapy Evaluate & Treat Comment: Physician Instructions: Evaluate and treat 10/31/21 22:19 Consult to Tele-operations forester Routine Comment: Consulting Provider: [place] [employer] Reason for consultation: Soap Inspector services 11/01/21 03:35 Consult After Hours PICC Line RN Routine Comment: 11/01/21 04:07 Consult to Dietitian, Adult Routine Comment: Reason For Exam: Patient on Ventilator and NPO 11/06/21 12:49 Consult to Speech Therapy Evaluate & Treat Comment: swallow eval Physician Instructions: Evaluate and treat 11/07/21 08:06 Consult to Occupational Therapy Evaluate & Treat Comment: Physician Instructions: Evaluate and treat Consult to Physical Therapy Evaluate & Treat Comment: Physician Instructions: Evaluate and Treat 11/07/21 08:10 Consult to Palliative Care Stat Comment: Consulting Provider: Tiffanie Silveira 11/07/21 08:11 Consult to Occupational Therapy Evaluate & Treat Comment: Physician Instructions: Evaluate and treat Consult to Physical Therapy Evaluate & Treat Comment: Physician Instructions: Evaluate and Treat Discharge provider: Geovanna Sanchez MD Summary Hospital Course Discharge Diagnosis: 1. Acute on chronic hypoxic respiratory failure 2. Obesity hypoventilation 3. Obstructive sleep apnea 4. COPD 5. Hyperlipidemia 6. Type 2 diabetes 7. Peripheral neuropathy 8. Hypertension 9. Urinary incontinence 10. Atrial Fibrillation 11. Dementia, with intermittent delirium 12. Acute metabolic encephalopathy present on admission, improved 13. Morbid obesity 14. Acute congestive heart failure, with preserved ejection fraction Hospital Course: The patient was admitted to the hospital with acute respiratory failure. She was given a trial of BiPAP in the emergency department and ultimately required intubation. She she had several spontaneous breathing trials which she failed. The patient did developed hypertension and rapid atrial fibrillation. However she was successfully extubated on 11/07. She remained on 4 L of oxygen with nonlabored respirations. She was able to pass a swallow eval and her diet was advanced. Recommendations were made for her to be on nocturnal noninvasive pressure ventilation. However the patient was noncompliant and refused nighttime BiPAP. She continued on diuresis, her usual medications, and ultimately was deemed appropriate and back to her baseline. She was seen and evaluated by physical therapy and occupational therapy and they made recommendations for her to go to senior living as she was weaker than previou s. The patient indicated she was DNR, she also indicated she did not want re- intubation. Her code status was changed to DNR DNI. Given the patient's multiple admissions to the hospital for respiratory failure, multiple intubations, and lack of compliance with recommended therapies a palliative care consultation was obtained. At the time patient's son spoke to Tiffanie silveira, he indicated he wished to support his mother's wishes. It at this time her code status has been confirmed. He indicated that after discharge should the patient return to the hospital they would pursue comfort measures at that time. The patient is awake and alert today, has no specific complaints, she is deemed appropriate for discharge to [facility]. Status at Discharge Cognitive/behavioral status at discharge: confused Functional status at discharge: bed bound Overall status at discharge: patient is progressing back to baseline Exam Vital Signs (past 8 hours): - 11/09/21 02:47 11/09/21 05:25 Temperature 97.9 F Pulse Rate 80 88 Respiratory Rate 17 17 Blood Pressure 109/70 119/78 Pulse Oximetry 93 88 L Fraction of Inspired Oxygen 55 Oxygen Delivery Method Nasal Cannula Oxygen Flow Rate 4 Narrative Exam Narrative: Obese female lying in bed Resp Other: Lungs decreased breath sounds with scattered rhonchi bilaterally Cardio Other: Irregularly irregular, normal S1-S2, 2/6 systolic ejection murmur GI Other: Abdomen soft nontender nondistended Other: Woods catheter removed Extrem Other: No edema Objective Labs Result Diagrams: 11/08/21 08:15 11/08/21 08:15 Labs: Laboratory Results - last 24 hr 11/08/21 11/08/21 08:15 08:15 WBC 8.1 RBC 3.71 L Hgb 10.8 L Hct 33.5 L MCV 90.3 MCH 29.1 MCHC 32.2 RDW 16.9 H Plt Count 310 Neut % (Auto) 74.8 Lymph % (Auto) 10.1 L [place] % (Auto) 12.0 Eos % (Auto) 2.4 Baso % (Auto) 0.7 Neut # (Auto) 6100 Lymph # (Auto) 800 L [place] # (Auto) 1000 H Eos # (Auto) 200 Baso # (Auto) 100 Sodium 136 L Potassium 3.2 L Chloride 95 L Carbon Dioxide 38 H BUN 16 Creatinine 0.64 Estimated GFR > 60.0 BUN/Creatinine Ratio 25.0 H Glucose 161 H Calcium 8.8 Total Bilirubin 0.7 AST 24 ALT 13 Alkaline Phosphatase 63 Total Protein 6.4 Albumin 3.5 Globulin 2.9 Albumin/Globulin Ratio 1.2 [facility] Medical History Atrial fibrillation Cholelithiasis Chronic respiratory failure with hypoxia and hypercapnia Depression Diabetes Fracture of left ankle Hyperlipidemia Hypertension Inguinal hernia Iron deficiency anemia Lumbar degenerative disc disease Morbid obesity Obesity hypoventilation syndrome Osteoarthritis Paroxysmal atrial fibrillation Pneumococcal meningitis Prolapsed bladder Surgical History History of abdominoplasty History of gastric bypass Family History Mother Heart disease Father No problems noted. Social History household members: none Smoking Status: Former smoker alcohol intake: former additional social history: lives alone Discharge Assessment & Plan Assessment and Plan Assessment: Acute on chronic hypoxic respiratory failure 2. Obesity hypoventilation 3. Obstructive sleep apnea 4. COPD 5. Hyperlipidemia 6. Type 2 diabetes 7. Peripheral neuropathy 8. Hypertension 9. Urinary incontinence 10. Atrial Fibrillation 11. Dementia, with intermittent delirium 12. Acute metabolic encephalopathy present on admission, improved 13. Morbid obesity 14. Acute congestive heart failure, with preserved ejection fraction Plan of Treatment: Discharged to [facility] Medications as prescribed Discharge Plan Discharge Plan Patient Disposition: SNF Transfer to: [facility] Consult as needed: Dental, Hearing, Mental health, Podiatry and Vision Discharge orders & Medications Prescriptions: Continued ursodiol 300 mg capsule 300 mg PO BID 0RF aspirin 81 mg Tablet,Delayed Release (Dr/Ec) 81 mg PO DAILY 0RF cetirizine [Allergy Relief (cetirizine)] 10 mg Tablet 1 tab PO DAILY 0RF ondansetron HCl 4 mg tablet 4 mg PO Q6HR PRN (Reason: Nausea) 0RF metoprolol tartrate 25 mg tablet 12.5 mg PO BID 0RF Lantus Solostar U-100 Insulin 100 unit/mL (3 mL) insulin pen 9 unit SUBCUT BEDTIME 0RF donepezil 10 mg tablet 20 mg PO QAM 0RF nystatin 100,000 unit/gram powder 100,000 unit TOPICAL BID 0RF sennosides [senna] 8.6 mg tablet 17.2 mg PO Q12H PRN (Reason: Constipation) 0RF potassium chloride [Klor-Con M10] 10 mEq tablet,ER particles/crystals 20 meq PO DAILYCC 0RF loperamide 2 mg Tablet 2 mg PO Q24H PRN (Reason: LOOSE STOOLS) 0RF acetaminophen 500 mg Tablet 1,000 mg PO BID 0RF pantoprazole 20 mg Tablet,Delayed Release (Dr/Ec) 20 mg PO DAILY 0RF wxuestgradz-tyzphhscn-cbujxode 100-62.5-25 mcg Blister With Device 1 inh INHALATION DAILY 0RF albuterol sulfate [Ventolin HFA] 90 mcg/actuation Hfa Aerosol Inhaler 2 puff INHALATION Q4HR PRN (Reason: sob/wheezing) 0RF gabapentin 300 mg Capsule 300 mg PO TID 0RF atorvastatin 80 mg tablet 80 mg PO BEDTIME 0RF Label Comments: take 1 tablet by mouth once daily torsemide 20 mg tablet 1 tab PO QAM 0RF polyethylene glycol 3350 [Miralax] 17 gram Powder In Packet 17 g PO BID PRN (Reason: Constipation) 0RF diltiazem HCl 180 mg capsule,extended release 24hr 180 mg PO DAILY 0RF vitamin A and D Ointment 1 applic TOPICAL BID 0RF insulin lispro [Humalog KwikPen Insulin] 100 unit/mL Insulin Pen 1 sliding scale dose SUBCUT BIDAC 0RF Rx Instructions: CBG 150-200 = 1 unit; 201-250=2 units; 251-300=3 units; 301-350=4 units; 351- 400=5 units; > 400=6 units melatonin 1 mg Tablet 1 mg PO BEDTIME PRN (Reason: Insomnia) 0RF diphenhydramine HCl [Allergy (diphenhydramine)] 25 mg Capsule 50 mg PO Q6H PRN (Reason: Allergic Reaction) 0RF Discontinued ferrous sulfate 325 mg (65 mg iron) Tablet 1 tab PO QAM 0RF acetaminophen 325 mg Tablet 650 mg PO Q6H PRN (Reason: PAIN) 0RF Rx Instructions: NOT TO EXCEED 3000MG IN 24H Follow up/Referrals: Johnny Saini MD [Primary Care Provider] - Discharge Health Status Multidrug resistant organism: No MDRO Diet/Activity/Treatments Diet: Low-sodium and Low-cholesterol Liquid consistency: Normal/Thin Food texture: Regular [facility] Rehab type: Physical therapy and Occupational therapy Discharge Data Primary Care Provider: Johnny Saini Quality VTE Deep Vein Thrombosis/Pulmonary Embolism Present on Admission: Yes
[2021-11-09] MEDS: INSULIN LISPRO 100 UNIT/ML 3ML VIAL SUBCUT ×3 (08:10→16:12)
[2021-11-09 08:54] LABS: Hemoglobin 11.3 g/dL (12.0-16.0); Mean Corpuscular HGB Conc 32.1 % (30-36); Mean Corpuscular Hemoglobin 28.8 PG (26-34); Mean Corpuscular Volume 89.4 fL (80-100); Platelet Count 333 X10^3/uL (150-400); Red Blood Cell Count 3.92 X10^6/uL (4.0-5.2); Red Cell Distribution Width 17.2 % (11.6-14.8); White Blood Cell Count 10.2 X10^3/uL (4.5-11.0)
[2021-11-09] MEDS: DOCUSATE 100 MG CAPSULE PO ×2 (08:58→20:23)
[2021-11-09] MEDS: SENNOSIDES 8.6 MG TABLET 17.2 MG PO ×2 (08:58→20:23)
[2021-11-09 08:59] LABS: Add Manual Diff / Slide Review YES
[2021-11-09] MEDS: ASPIRIN EC 81 MG TABLET PO (08:59)
[2021-11-09] MEDS: METOPROLOL IR 25 MG TABLET 12.5 MG PO ×2 (08:59→20:23)
[2021-11-09] MEDS: polyethylene glycoL 3350 17 GM POWD.PACK PO (08:59)
[2021-11-09] MEDS: GABAPENTIN 300 MG CAPSULE PO ×3 (08:59→20:22)
[2021-11-09] MEDS: ENOXAPARIN 150 MG/ML SYRINGE SUBCUT ×2 (08:59→20:23)
[2021-11-09] MEDS: FAMOTIDINE 20 MG/2 ML VIAL IV ×2 (09:00→20:23)
[2021-11-09 09:01] LABS: Alanine Aminotransferase 14 IU/L (<35); Albumin 3.6 g/dL (3.5-5.0); Albumin Globulin Ratio 1.2 (1.0-2.8); Alkaline Phosphatase 68 U/L (38-126); Aspartate Aminotransferase 23 IU/L (14-36); BUN Creatinine Ratio 26.5 (6-22); Bilirubin Total 0.8 mg/dL (0.2-1.3); Blood Urea Nitrogen 18 mg/dL (7-17); Carbon Dioxide 35 mmol/L (22-32); Chloride 97 mmol/L (98-107); Estimated Glomerular Filt Rate > 60.0 mL/min (>60); Glucose 170 mg/dL (80-110); HEMOLYSIS < 15 (0-50); Potassium 4.5 mmol/L (3.4-5.1); Sodium 135 mmol/L (137-145); Total Protein 6.6 g/dL (6.3-8.2)
[2021-11-09] MEDS: ALBUTEROL/IPRATROPIUM 3 ML AMPUL INH (09:12)
[2021-11-09 09:29] LABS: Anisocytosis 1+; Hypochromasia 1+; Neutrophils Absolute Manual 8874 /uL (3000-5900); Polychromasia 1+; Total Cells Counted 100
--- NOTE | 2021-11-09 10:29 | PC.NURSE ---
Dayshift note: COVID rapid swab completed pending transfer to [facility] today, rapid test came back positive, retesting doing PCR. Updated care management and Dr Sanchez on results of rapid test, waiting for new results from PCR.
[2021-11-09 10:46] LABS: COVID19 -Nasal RAPID POSITIVE (Negative)
--- NOTE | 2021-11-09 10:46 | ST.IPDYTX ---
Visit Care Team Role Provider Type Johnny Saini MD Primary Care Provider Non-Staff Specialty: Internal Medicine Address: [address] [place], [address] Email: Patel Brannon MD Other Providers Physician Specialty: Medical Address: Phone: Fax: Email: Chiquita Valencia MD Other Providers Physician Specialty: Medical Address: Phone: Fax: Email: LYNNE Nguyen Other Providers Advanced Household Manager Specialty: Family Practice Address: [address] [place] [address], [address] Email: [email or web address] Brittany Bass MD Other Providers Physician Specialty: Medical Address: Phone: Fax: Email: Jimi Dasilva MD Other Providers Physician Specialty: Medical Address: Phone: Fax: Email: Ovi Arias MD Other Providers Physician Specialty: Internal Medicine Address: Phone: Fax: Email: Davy Gonzalez MD Other Providers Physician Specialty: Medical Address: Phone: Fax: Email: Conor Pacheco MD Other Providers Physician Specialty: Internal Medicine Address: Phone: Fax: Email: Segundo Jerome MD Other Providers Physician Specialty: Medical Address: Phone: Fax: Email: Delmer Bass MD Other Providers Physician Specialty: Medical Address: Phone: Fax: Email: Fabricio Mckeon MD Other Providers Physician Specialty: Medical Address: Phone: Fax: Email: Raji Hernandez MD Other Providers Physician Specialty: Medical Address: Phone: Fax: Email: Erik Odonnell DO Emergency Provider Physician Referring Provider Specialty: Emergency Medicine Address: [address] [place] [address], [address] Email: [email or web address] Geovanna Sanchez MD Admit Provider Physician Attending Provider Specialty: Internal Medicine Address: [address] [place] [address], [address] Email: [email or web address] Dysphagia Treatment FITNESS INSTRUCTOR Dysphagia Treatment Start: 11/07/21 15:43 Freq: Status: Active Protocol: Document 11/09/21 10:32 LNK (Rec: 11/09/21 10:44 LNK [id number]) Dysphagia Treatment Session Time Visit Start Time 09:50 Visit Stop Time 10:05 Total Visit Minutes 15 Setting Assessment Location Acute Care Visit Type Note Type Treatment Note Next Note Type Next Note Type Treatment Note Patient Information Identification Type Name,ID Wristband Subjective Observations Pt in bedside chair. Pt leans to the right, pillows for support. 3 person assist. Treatment Liquids Trialed Thin Solids Trialed Puree,Dysphagia Mechanical Administration Type Tea Spoon,Straw,Self-Feeding Oral Strategies Upright at 90 degrees,Lingual Sweep,Controlled Bite/Sip Size Pharyngeal Strategies Sitting Upright (90 deg),Small Bites and Sips Treatment Activities Continue with dysphagia mechanical and thin liquids. Pt has already eaten her breakfast. Pt and FUMIGATOR AND STERILIZER reported that swallowing has improved. She had hash browns and eggs, she reported. No coughing/choking reported. P's voice clear without wet vocal quality. No throat clearing following water via straw with multiple swallows. Pt's dentures loose filling and floating in mouth even when just talking. Pt encouraged to use a fixative to secure dentures and improve mastication. Pt is safely tolerating current diet. with no over s/s aspiration. Pt scheduled to be discharged to SNF or back to [facility] per insurance authorization . Assessment Patient Response to Treatment Good Rehab Potential Good Diet Recommendations Recommendations Continue Current Diet Liquids Order Thin Diet Order Dysphagia Mechanical Medication Recommendations Whole in Carrier Comments Will continue to assess to determine discharge recommendation Additional Dietary Needs Single Sips,Controlled Sips Aspiration Precautions Recommended Precautions Upright at 90 Degrees,Frequent Rest Periods,Small Bites/Sips ,Lingual Sweep,Check for Pocketing Additional Precautions Needs assistance with set up Treatment Plan Placement Recommendation after Discharge Skilled Nursing Care Facility Appropriate for Continued Therapy Yes Therapy Recommendations Pt scheduled to discharge Dysphagia Goals The pt will follow safe swallow strategies to reduce risk of aspiration and participate in ongoing assessment for safety and diet advancement as indicated.
[2021-11-09 11:21] LABS: COVID19 - ADMIT (NP swab/PCR) POSITIVE (Negative)
--- NOTE | 2021-11-09 12:30 | PT-IP ANOTE ---
ARIK Gupta spoke with Dr Sanchez [phone], provided feedback pt was total assist of 3 persons with use of elena during yesterday's tx to complete supine<> sit EOB and full support during sitting. Chart reviewing pt has progressively decreased strength with COVID 2 weeks prior to admission on 10/31 and activity level hasn't improved and currently tested COVID + x2 in the past 24 hrs, don't feel she is appropriate for skilled physical therapy and suggesting DC from PT. Dr Sanchez agreed and recommended that PT complete DC. LOAF COUNTER discussed conversation with supervising acute floor PT Casi and is in agreement with DC from therapy. PT Casi, notified evalling PT Evelyne on lack of mobility progress pt is making and new COVID + testing for safety awareness. ARIK Gupta was notified via phone conversation, Evelyne PT will complete DC.
--- NOTE | 2021-11-09 13:00 | PT.IPTN ---
Current Diagnoses Obstructive sleep apnea (adult) (pediatric) (10/31/21) Acute and chronic respiratory failure with hypoxia (10/31/21) Physical Therapy Treatment Note M2 PT-IP Current Condition Start: 11/07/21 08:52 Freq: NEEDED Status: Active Protocol: Document 11/07/21 11:30 JG (Rec: 11/07/21 11:48 JG [id number]) Physical Therapy Current Condition Current Condition Evaluation Date 11/07/21 Treatment Diagnosis COPD exacerbation, decreased mobility, weakness, incoordination Document 11/09/21 12:58 AW (Rec: 11/09/21 13:00 AW [id number]) PT Summary Assessment and Plan Summary Assessment Summary Discussed case with JOINT SETTER and OT who note that pt's sitting balance needs are more related to ADL needs than pre- transfer activities which remain unrealistic for this pt . PT will discharge orders at this time as OT will continue to work on seated balance for ADL needs. Frequency of Treatment Frequency Of Treatment Discharge
--- NOTE | 2021-11-09 13:40 | OT.IP.TRT ---
Current Diagnoses Obstructive sleep apnea (adult) (pediatric) (10/31/21) Acute and chronic respiratory failure with hypoxia (10/31/21) Occupational Therapy Treatment Note M2 OT-IP Current Condition Start: 11/07/21 12:33 Freq: Status: Active Protocol: Document 11/07/21 11:02 [facility] (Rec: 11/07/21 12:50 [facility] [id number]) Occupational Therapy Current Condition Current Condition Evaluation Date 11/07/21 Treatment Diagnosis Hypercapnic respiratory failure, decreased mobility Diagnosis Onset Date 10/31/21 M3 OT- IP Subjective and Pain Start: 11/07/21 12:33 Freq: Status: Active Protocol: Document 11/09/21 10:05 [facility] (Rec: 11/09/21 13:40 [facility] [id number]) OT- Subjective Occupational Therapy Visit Type Type Treatment Note Visit Start Time 10:05 Visit Stop Time 10:19 Total Visit Minutes 14 Occupational Therapy Visit Comments Patient Comments Pt agreed to wash her face. While working with pt, nursing states pt now COVID +. Patient/Caregiver Goals TO go back to [facility]. M4 OT- IP ADL's Start: 11/07/21 12:33 Freq: Status: Active Protocol: Document 11/09/21 10:05 [facility] (Rec: 11/09/21 13:40 [facility] [id number]) OT ADL-Grooming Comments OT Grooming Comments Pt able to wash her face with increased time. OT ADL-Toileting General Evaluation Areas Needing Assistance Manage Clothing,Perform Perineal Hygiene Comments OT Toileting Comments Total assist x3 for brief change. OT ADL-Bathing Comments OT Bathing Comments Sponge bath more appropriate at this time. M5 OT- IP IADL's Start: 11/07/21 12:33 Freq: Status: Active Protocol: Document 11/07/21 11:02 [facility] (Rec: 11/07/21 12:50 [facility] [id number]) OT-Instrumental Activities of Daily Living Home Safety Awareness Awareness of Need for Assistance at Home Decreased Awareness M6 OT- IP Functional Cognition Start: 11/07/21 12:33 Freq: Status: Active Protocol: Document 11/09/21 10:05 [facility] (Rec: 11/09/21 13:40 [facility] [id number]) Cognitive Factors Limiting Selfcare Function Cognitive Ability Level of Alertness Confusional State,Drowsy Patient Orientation Name Attention Span Ability Capable of Focused Attention, Unable to Sustain Attention Ability to Follow Commands Able to Follow One Step Commands with Increased Time, Able to Follow One Step Commands with Repetition Cognitive Comments Cognitive Assessment Comments Pt still drowsy and however needing step by step cues to follow for ADL and mobility needs. M7 OT- IP Mobility and Balance Start: 11/07/21 12:33 Freq: Status: Active Protocol: Document 11/08/21 13:31 [facility] (Rec: 11/08/21 13:37 [facility] [id number]) OT- Bed Mobility Assessment Rolling Type of Rolling Roll to Right Level of Assistance Total Assistance,2 Person Assistance,Head of Bed Elevated,Bedrails Supine to Sit Supine to Sit Assist Total Assistance,2 Person Assistance Sit to Supine Sit to Supine Assist Total Assistance,2 Person Assistance OT-Transfer Assessment Devices Transfer Assistive Devices Mechanical Lift Comments Mobility Comments Use of elena lift to help get back to bed. Attempted to work on sitting balance with CONTACT LENS MOLDER with elena lift on and pt unable to hold herself up and needing total assist and then use of elena to get into supine. OT- Balance Assessment Sitting Balance and Reactions Static Sitting Balance Ability Poor Dynamic Sitting Balance Ability Poor M8 OT- IP Objective Assessments Start: 11/07/21 12:33 Freq: Status: Active Protocol: Document 11/07/21 11:02 [facility] (Rec: 11/07/21 12:50 [facility] [id number]) OT Gross Range of Motion Upper Extremity Range of Motion Assessment Bilaterally Impaired OT Strength Upper Extremity Strength Assessment Bilaterally Impaired M9 OT- IP Assessment and Plan Start: 11/07/21 12:33 Freq: Status: Active Protocol: Document 11/09/21 10:05 [facility] (Rec: 11/09/21 13:40 [facility] [id number]) OT Summary Assessment and Plan Potential Rehabilitation Potential Poor Analytic Complexity at Evaluation Moderate Summary Assessment Summary AT this time pt has COVID and is mostly dependent for all her ADl and mobility needs and therefore not appropriate for OT services at this time. Therefore discharge pt for OT services. Nursing to continue to provide opportunities for grooming and eating needs. Discharge Recommendations OT Discharge Recommendations LTAC Transportation Needs at Discharge Stretcher/Ambulance
--- NOTE | 2021-11-09 13:42 | OT.IPNOTE ---
Discharge pt from OT services. Pt prior able to do grooming and eating needs after set-up. Pt now COVID + and nursing to continue to assist with ADL needs as needed.
--- NOTE | 2021-11-09 15:02 | CM.DPC ---
DCP Cont: PATRICIA answered the call from Elysia PAVON at [facility] while PATRICIA Awilda was in another pt room and Elysia states that their facility physician Dr. Humphries feels that pt should be accepted at [facility] as a bridge before returning to [facility] PAKO and Dr. Humphries calling [facility] now to discuss further with the physician/administrators at [facility]. In case Hospitalist needs Dr. Humphries's contact her cell phone is [phone] Sanchez who will wait to hear the outcome of which facility will accept pt at d/c and only needs to update Dr. Humphries if pt discharges straight back to [facility]. PATRICIA called April at [facility] and updated on above and she will keep SW updated once decision made by [facility] physicians. EMANUEL Guerin
--- NOTE | 2021-11-09 15:18 | CM.DPNOTE ---
DCP Note Patient discharged from the hospital this morning to [facility]; Anais at [facility] had secured an authorization for this admissions. Subsequently, patient had a COVID+ swab (rapid) and PCR and [facility] discussed w.her team and they decided they could not accept this patient. This SOFTWARE RELIABILITY ENGINEER and SOFTWARE RELIABILITY ENGINEER Raven Barrios spoke w/RN Elysia today; she can scheduled a bedside assessment tomorrow. Meanwhile, Elysia told this SOFTWARE RELIABILITY ENGINEER that she needed to review patient's clinical needs and plan of care with Dr Humphries. Following closely to coordination DCP once Dr Humphries ([facility] medical physics researcher) speaks w/administrators at [facility]. Plan: DC to [facility] vs return to [facility] Dr Sanchez updated and signed POLST to reflect patient's wishes; DNR and limited interventions, patient DOES NOT want comfort/hospice measures at this time. Relayed this to LIBRADO Naidu at [facility] JW
[2021-11-09] MEDS: QUETIAPINE 25 MG TABLET 12.5 MG PO (20:22)
[2021-11-09] MEDS: ATORVASTATIN 20 MG TABLET 80 MG PO (20:23)
[2021-11-09] MEDS: INSULIN GLARGINE 100 UNIT/ML 3ML PEN SUBCUT (21:53)
[2021-11-10] VITALS (7 sets, daily range): BP systolic 102–131; BP diastolic 54–78; PULSE 74–89; RESP 20–22; TEMP 36.3–36.7; O2SAT 93–95
[2021-11-10] MEDS: CIPROFLOXACIN 400 MG/200 ML PIGGYBACK 200 MG IV ×2 (00:32→12:56)
[2021-11-10 05:31] LABS: Add Manual Diff / Slide Review NO; Basophils Absolute Auto 100 /uL (0-100); Eosinophils Absolute Auto 200 /uL (0-450); Eosinophils Percent Auto 1.7 % (2-4); Hematocrit 33.6 % (36-46); Hemoglobin 10.7 g/dL (12.0-16.0); Lymphocytes Absolute Auto 1200 /uL (1100-4500); Lymphocytes Percent Auto 11.6 % (25-40); Mean Corpuscular HGB Conc 31.9 % (30-36); Mean Corpuscular Hemoglobin 28.7 PG (26-34); Mean Corpuscular Volume 89.8 fL (80-100); Monocytes Absolute Auto 1300 /uL (0-900); Monocytes Percent Auto 12.7 % (3-14); Neutrophils Absolute Auto 7500 /uL (1500-7000); Platelet Count 390 X10^3/uL (150-400); Red Blood Cell Count 3.74 X10^6/uL (4.0-5.2); Red Cell Distribution Width 17.3 % (11.6-14.8); White Blood Cell Count 10.3 X10^3/uL (4.5-11.0)
[2021-11-10 05:54] LABS: Alanine Aminotransferase 13 IU/L (<35); Albumin 3.3 g/dL (3.5-5.0); Albumin Globulin Ratio 1.1 (1.0-2.8); Alkaline Phosphatase 63 U/L (38-126); Aspartate Aminotransferase 23 IU/L (14-36); BUN Creatinine Ratio 33.3 (6-22); Bilirubin Total 0.7 mg/dL (0.2-1.3); Blood Urea Nitrogen 21 mg/dL (7-17); Calcium 8.8 mg/dL (8.4-10.2); Carbon Dioxide 36 mmol/L (22-32); Chloride 98 mmol/L (98-107); Estimated Glomerular Filt Rate > 60.0 mL/min (>60); Globulin 3.1 g/dL (1.7-4.1); Glucose 168 mg/dL (80-110); HEMOLYSIS < 15 (0-50); Potassium 4.1 mmol/L (3.4-5.1); Sodium 135 mmol/L (137-145); Total Protein 6.4 g/dL (6.3-8.2)
[2021-11-10] MEDS: DOCUSATE 100 MG CAPSULE PO ×2 (08:49→21:37)
[2021-11-10] MEDS: ASPIRIN EC 81 MG TABLET PO (08:49)
[2021-11-10] MEDS: SENNOSIDES 8.6 MG TABLET 17.2 MG PO ×2 (08:50→21:37)
[2021-11-10] MEDS: ENOXAPARIN 150 MG/ML SYRINGE SUBCUT ×2 (08:50→21:39)
[2021-11-10] MEDS: polyethylene glycoL 3350 17 GM POWD.PACK PO ×2 (08:50→21:37)
[2021-11-10] MEDS: GABAPENTIN 300 MG CAPSULE PO ×3 (08:50→21:37)
[2021-11-10] MEDS: METOPROLOL IR 25 MG TABLET 12.5 MG PO ×2 (08:50→21:38)
[2021-11-10] MEDS: FAMOTIDINE 20 MG/2 ML VIAL IV (08:50)
[2021-11-10] MEDS: INSULIN LISPRO 100 UNIT/ML 3ML VIAL SUBCUT ×3 (08:52→17:39)
[2021-11-10] MEDS: NYSTATIN CREAM 30 GM 1 APPLIC TOP (09:03)
--- NOTE | 2021-11-10 10:02 | CM.DPNOTE ---
Faxed snf referral packet per Awilda to [facility] and received fax conf. Nathalia Franco CM Asst.
--- NOTE | 2021-11-10 12:24 | ST.IPDYTX ---
Visit Care Team Role Provider Type Johnny Saini MD Primary Care Provider Non-Staff Specialty: Internal Medicine Address: [address] [place], [address] Email: Patel Brannon MD Other Providers Physician Specialty: Medical Address: Phone: Fax: Email: Chiquita Valencia MD Other Providers Physician Specialty: Medical Address: Phone: Fax: Email: LYNNE Nguyen Other Providers Advanced Clinical Support Specialist Specialty: Family Practice Address: [address] [place] [address], [address] Email: [email or web address] Brittany Bass MD Other Providers Physician Specialty: Medical Address: Phone: Fax: Email: Jimi Dasilva MD Other Providers Physician Specialty: Medical Address: Phone: Fax: Email: Ovi Arias MD Other Providers Physician Specialty: Internal Medicine Address: Phone: Fax: Email: Davy Gonzalez MD Other Providers Physician Specialty: Medical Address: Phone: Fax: Email: Conor Pacheco MD Other Providers Physician Specialty: Internal Medicine Address: Phone: Fax: Email: Segundo Jerome MD Other Providers Physician Specialty: Medical Address: Phone: Fax: Email: Delmer Bass MD Other Providers Physician Specialty: Medical Address: Phone: Fax: Email: Fabricio Mckeon MD Other Providers Physician Specialty: Medical Address: Phone: Fax: Email: Raji Hernandez MD Other Providers Physician Specialty: Medical Address: Phone: Fax: Email: Erik Odonnell DO Emergency Provider Physician Referring Provider Specialty: Emergency Medicine Address: [address] [place] [address], [id number] Email: [email or web address] Geovanna Sanchez MD Admit Provider Physician Attending Provider Specialty: Internal Medicine Address: [address] [place] [address], [address] Email: [email or web address] Dysphagia Treatment CONTENT DEVELOPMENT SPECIALIST Dysphagia Treatment Start: 11/07/21 15:43 Freq: Status: Active Protocol: Document 11/10/21 12:18 LNK (Rec: 11/10/21 12:24 LNK [id number]) Dysphagia Treatment Session Time Visit Start Time 10:00 Visit Stop Time 10:15 Total Visit Minutes 15 Setting Assessment Location Acute Care Visit Type Note Type Treatment Note Patient Information Identification Type Name,ID Wristband Subjective Observations Pt in bedside chair. Pt leans to the right, pillows for support. 3 person assist. Treatment Liquids Trialed Thin Solids Trialed Puree,Dysphagia Mechanical Administration Type Tea Spoon,Straw,Self-Feeding Treatment Activities According to pt and pt's family, she has returned to her functional baseline. Because of her ill-fitting dentures a soft diet is recommended to reduce the risk of aspirating pieces of more advanced diets. pt due to be discharged when SNF available. PST no longer needed. Will discharge Assessment Patient Response to Treatment Good Diet Recommendations Recommendations Continue Current Diet Liquids Order Thin Diet Order Dysphagia Mechanical Medication Recommendations Whole in Carrier Additional Dietary Needs Single Sips,Controlled Sips Aspiration Precautions Recommended Precautions Upright at 90 Degrees,Frequent Rest Periods,Small Bites/Sips ,Lingual Sweep,Check for Pocketing Additional Precautions Needs assistance with set up Treatment Plan Placement Recommendation after Discharge Correction Care Facility Appropriate for Continued Therapy No Therapy Recommendations discharge
--- NOTE | 2021-11-10 13:15 | CM.DPNOTE ---
DCP Note Spoke w/LIBRADO Naidu/[facility] and Dr Humphries/[facility] this morning and they explained that patient has been assessed at bedside this morning and is not at baseline for return to [facility]. Dr Humphries attempted to advocate on patient's behalf by calling [facility] administrators and unfortunately, [facility] still unable to accept patient w/patient's two COVID+ results Requested ARIS Sloan fax to the [facility] SN[facility] [address] Admissions: [facility] Cell phone: [phone] P [phone] F [phone] Following closely. Patient is DNR/DNI, however, patient is not interested in comfort or hospice care at this time. DCP efforts will continue; return to [facility] does not appear to be an option at this time. ANDRY
--- NOTE | 2021-11-10 17:19 | PM.PN.1 ---
Subjective Subjective Date Patient Seen: 11/10/21 Interval history: Patient is a 70-year-old female with a history of obesity hypoventilation obstructive sleep apnea, COPD, acute on chronic hypoxic respiratory failure who was admitted to the hospital for acute respiratory failure. The patient has chronic hypercapnia. She does require BiPAP at night for this. However the patient refuses BiPAP. She was ultimately intubated, extubated, and has since been doing well here at the hospital. The patient was EN route to [facility] when her COVID PCR became positive. The retirement aborted the admission. The patient is felt to be too weak to return to [facility]. As such we are awaiting placement at another facility. Despite that she has no specific complaints. She is not short of breath. She is lying in bed awake and alert and has no specific complaints Exam Vital Signs (past 8 hours): - 11/10/21 09:53 11/10/21 14:00 Temperature 97.3 F L 97.3 F L Pulse Rate 89 74 Respiratory Rate 22 22 Blood Pressure 102/59 L 124/76 Pulse Oximetry 95 93 Fraction of Inspired Oxygen 55 Oxygen Delivery Method Nasal Cannula Oxygen Flow Rate 3.5 Narrative Exam Narrative: Obese elderly female lying in bed in no distress Resp Other: Lungs scattered rhonchi bilaterally Cardio Other: Cardiac exam: Rate and rhythm normal S1-S2 GI Other: Abdomen soft nontender nondistended Extrem Other: Extremity no edema Objective Labs Result Diagrams: 11/10/21 05:00 11/10/21 05:00 Labs: Laboratory Results - last 24 hr 11/10/21 11/10/21 05:00 05:00 WBC 10.3 RBC 3.74 L Hgb 10.7 L Hct 33.6 L MCV 89.8 MCH 28.7 MCHC 31.9 RDW 17.3 H Plt Count 390 Neut % (Auto) 73.0 Lymph % (Auto) 11.6 L Lewis % (Auto) 12.7 Eos % (Auto) 1.7 L Baso % (Auto) 1.0 Neut # (Auto) 7500 H Lymph # (Auto) 1200 Lewis # (Auto) 1300 H Eos # (Auto) 200 Baso # (Auto) 100 Sodium 135 L Potassium 4.1 Chloride 98 Carbon Dioxide 36 H BUN 21 H Creatinine 0.63 Estimated GFR > 60.0 BUN/Creatinine Ratio 33.3 H Glucose 168 H Calcium 8.8 Total Bilirubin 0.7 AST 23 ALT 13 Alkaline Phosphatase 63 Total Protein 6.4 Albumin 3.3 L Globulin 3.1 Albumin/Globulin Ratio 1.1 [facility] Medical History Atrial fibrillation Cholelithiasis Chronic respiratory failure with hypoxia and hypercapnia Depression Diabetes Fracture of left ankle Hyperlipidemia Hypertension Inguinal hernia Iron deficiency anemia Lumbar degenerative disc disease Morbid obesity Obesity hypoventilation syndrome Osteoarthritis Paroxysmal atrial fibrillation Pneumococcal meningitis Prolapsed bladder Surgical History History of abdominoplasty History of gastric bypass Family History Mother Heart disease Father No problems noted. Social History household members: none Smoking Status: Former smoker alcohol intake: former additional social history: lives alone Assessment & Plan Assessment & Plan narrative: Acute on chronic hypercapnic, hypoxic respiratory failure secondary to gram negative pneumonia with septic shock from UTI and pneumonia -Patient required intubation on October 31 after she did not improve on BiPAP trial -Imaging reveals chronic ground-glass opacity, possibly COPD vs CHF -Patient with probable obesity hypoventilation syndrome -CT PE does not show PE -pseudomonas growing in sputum, on IV cipro, will switch to po cipro -will diuresed with lasix -ECHO EF 45-55%, right side of heart difficult to visualize -COVID PCR now positive -patient successfully extubated, she is now on nasal cannula and oxygenating well -given sensitivities of Pseudomonas will switch her to IV levofloxacin at this time -will continue to taper oxygen -patient reiterates she does not want to be intubated if she develops worsening respiratory failure -can continue to use noninvasive ventilation if needed, -recommend palliative care consultation today-done --patient is DNR DNI -appreciate palliative care consult from Tiffanie lou After conversation with the son the patient will be transferred [facility] to [facility] or [facility].? Should she have another recurrent episode acute hypoxemia the plan at that time will be to transition her to comfort care only. The patient is not been cooperative with BiPAP, this is likely precipitating her respiratory decline. Plans underway to transfer her tomorrow Will switch antibiotics to po cipro. 2. Atrial fibrillation with RVR -ordered metoprolol IV x3, still tachycardic will trial digoxin -ordered for full dose lovenox -replete electrolytes -she continues to be hypokalemic, will replace -rate controlled 3. Acute metabolic encephalopathy - Likely occurred the patient's current medications.? Due to CO2 narcosis on admission, CO2 improving with ventilation -improving\ -patient is alert, oriented, conversant, and appropriate -no hallucinations 4. Hypertension -hold chronotropic agents 5. Hyperlipidemia -Continue home atorvastatin 6. Insulin-dependent DM II -Will continue her usual home insulin regimen -Insulin sliding scale -Will continue home aspirin 81 mg daily 7. GERD -Continue PPI with IV famotidine, given that she's intubated, too 8. Dementia, reported per records -Continue donepezil 9. Disposition-awaiting placement Will discuss long-term plan with Dr. Humphries if the patient returns to [facility] Time Spent With Patient Critical Care time: I spent a total of [] minutes of critical care time on this patient's care today; this time is exclusive of procedural time. Quality VTE Deep Vein Thrombosis/Pulmonary Embolism Present on Admission: Yes
[2021-11-10] MEDS: ACETAMINOPHEN 325 MG TABLET 650 MG PO (18:11)
--- NOTE | 2021-11-10 19:22 | PC.NURSE ---
A&O x2 (to self and birthdate). She is aware she is at [facility] but could not specify the date or details about why she is in the hospital. Need reminders and reinforcement. VSS. O2 94% on 2 L nc. Pain 4-7/10 on left side of stomach/hip. Given PRN Tylenol. Total assist with minimum to people and elena lift. Given bed bath today. Incontinent of bowel and bladder. Unblanchable redness on bottom, applied barrier cream and repositioned frequently. Dysphasia diet, fed meals. Takes pills whole with water. Covid precautions. Call light within reach, bed low.
[2021-11-10] MEDS: ATORVASTATIN 20 MG TABLET 80 MG PO (21:37)
[2021-11-10] MEDS: QUETIAPINE 25 MG TABLET 12.5 MG PO (21:37)
[2021-11-10] MEDS: INSULIN GLARGINE 100 UNIT/ML 3ML PEN SUBCUT (21:38)
[2021-11-10] MEDS: CIPROFLOXACIN 250 MG TABLET 500 MG PO (21:38)
[2021-11-10] MEDS: DONEPEZIL 5 MG TABLET 20 MG PO (22:09)
[2021-11-10] MEDS: HYDROMORPHONE 0.5 MG INJ IV (23:15)
[2021-11-11 02:00] VITALS: BP 123/71; PULSE 71; RESP 22; TEMP 36.5; O2SAT 92
[2021-11-11 05:01] LABS: Add Manual Diff / Slide Review NO; Basophils Absolute Auto 100 /uL (0-100); Eosinophils Absolute Auto 200 /uL (0-450); Eosinophils Percent Auto 2.1 % (2-4); Hematocrit 30.6 % (36-46); Hemoglobin 9.7 g/dL (12.0-16.0); Lymphocytes Absolute Auto 1200 /uL (1100-4500); Lymphocytes Percent Auto 11.8 % (25-40); Mean Corpuscular HGB Conc 31.8 % (30-36); Mean Corpuscular Hemoglobin 28.6 PG (26-34); Mean Corpuscular Volume 89.9 fL (80-100); Monocytes Absolute Auto 1100 /uL (0-900); Neutrophils Absolute Auto 7500 /uL (1500-7000); Neutrophils Percent Auto 74.1 % (50-75); Platelet Count 434 X10^3/uL (150-400); White Blood Cell Count 10.1 X10^3/uL (4.5-11.0)
[2021-11-11 05:05] LABS: Alanine Aminotransferase 13 IU/L (<35); Alkaline Phosphatase 60 U/L (38-126); Aspartate Aminotransferase 23 IU/L (14-36); BUN Creatinine Ratio 26.7 (6-22); Bilirubin Total 0.7 mg/dL (0.2-1.3); Blood Urea Nitrogen 16 mg/dL (7-17); Calcium 8.5 mg/dL (8.4-10.2); Carbon Dioxide 37 mmol/L (22-32); Chloride 95 mmol/L (98-107); Estimated Glomerular Filt Rate > 60.0 mL/min (>60); Globulin 3.1 g/dL (1.7-4.1); Glucose 159 mg/dL (80-110); HEMOLYSIS < 15 (0-50); Potassium 4.2 mmol/L (3.4-5.1); Sodium 133 mmol/L (137-145); Total Protein 6.1 g/dL (6.3-8.2)
[2021-11-11 06:00] VITALS: BP 117/62; PULSE 89; RESP 20; TEMP 36.6; O2SAT 92
[2021-11-11] MEDS: CIPROFLOXACIN 250 MG TABLET 500 MG PO ×2 (08:40→21:52)
[2021-11-11] MEDS: NYSTATIN CREAM 30 GM 1 APPLIC TOP ×2 (08:40→22:04)
[2021-11-11] MEDS: ASPIRIN EC 81 MG TABLET PO (08:43)
[2021-11-11] MEDS: ENOXAPARIN 150 MG/ML SYRINGE SUBCUT ×2 (08:44→21:55)
[2021-11-11] MEDS: GABAPENTIN 300 MG CAPSULE PO (08:44)
[2021-11-11] MEDS: DOCUSATE 100 MG CAPSULE PO ×2 (08:44→21:52)
[2021-11-11] MEDS: METOPROLOL IR 25 MG TABLET 12.5 MG PO ×2 (08:45→22:27)
[2021-11-11] MEDS: polyethylene glycoL 3350 17 GM POWD.PACK PO ×2 (08:45→22:04)
[2021-11-11] MEDS: SENNOSIDES 8.6 MG TABLET 17.2 MG PO ×2 (08:45→22:03)
[2021-11-11] MEDS: PANTOPRAZOLE DR 20 MG TABLET PO (08:47)
[2021-11-11] MEDS: INSULIN LISPRO 100 UNIT/ML 3ML VIAL SUBCUT ×3 (08:49→18:25)
[2021-11-11] MEDS: ACETAMINOPHEN 325 MG TABLET 650 MG PO ×3 (09:12→22:34)
[2021-11-11 12:33] VITALS: BP 117/75; PULSE 71
[2021-11-11 13:17] LABS: COVID19 -Nasal RAPID Negative (Negative)
--- NOTE | 2021-11-11 13:43 | CM.DPNOTE ---
Addendum entered by EMANUEL Fishman 11/11/21 14:25: ADD: In addition, placed call to son Jed to update, had to DIVYA WILDE Original Note: DCP Note Multiple calls to [facility] in admissions states she is reviewing. Patient now with two COVID+ results on 11.09.21 and two Negative results, .05.16 and 11.11.21 Placed call to Marlene, LIBRADO, [facility]; she spoke w/Patti Carr/network systems administrator who reiterated the same thing that LIBRADO Naidu and Dr Humphries had; which was that patient was not at her baseline and so [facility] cannot safely provide care to patient...DC to SNF before return home to [facility] requested According to LIBRADO Rosario- a [facility] RN could come back to assess patient either Sunday afternoon or Sunday morning; strongly requested this be scheduled, LIBRADO Rosario agreeable Placed call to Anais/[facility]- would she re consider this admission ? Awaiting call back ANDRY
--- NOTE | 2021-11-11 14:55 | P.PN_ITS ---
Subjective Subjective Interval history: PATIENT DID NOT HAVE ANY SIGNIFICANT COMPLAINTS SHE APPEARS TO HAVE SOME UNDERLYING DEMENTIA REVIEW OF SYSTEM IS UNRELIABLE SPOKE TO NURSING IN REGARD TO THE CASE SPOKE TO CASE MANAGEMENT IN REGARD TO THE CASE WELL Exam Vital Signs (past 8 hours): - 11/11/21 12:33 Pulse Rate 71 Blood Pressure 117/75 Fraction of Inspired Oxygen 55 Oxygen Delivery Method Nasal Cannula Oxygen Flow Rate 1 Narrative Exam Narrative: NO ACUTE DISTRESS. PATIENT IS ALERT, AWAKE ORIENTED TIME 1. MORBIDLY OBESE VITAL SIGNS STABLE HEAD ATRAUMATIC NORMOCEPHALIC NECK : NO ADENOPATHY NO CAROTID BRUITS EYE: EOMI, PERRLA, NORMAL CONJUNCTIVA; NO JAUNDICE CHEST: REGULAR RATE. NO RUBS. PMI IS NON DISPLACED. NORMAL S1-S2 PULMONARY: DECREASED BS OVER THE BASES. MILD BIBASILAR CRACKLES NOTED; NO WHEEZING ABDOMEN: OBESE BUTSOFT. NONTENDER. NONDISTENDED. BOWEL SOUNDS ARE PRESENT IN ALL 4 QUADRANTS. NO MASS. EXTREMITIES: 3+ NONPITTING BILATERAL LOWER EXTREMITYEDEMA.. NO CYANOSIS OR CLUBBING NOTED. NEURO: CRANIAL NERVES 2-12 GROSSLY INTACT. NO FOCAL NEUROLOGICAL DEFICIT NOTED. DEMENTIA MSK: NORMAL RANGE OF MOTION FOR AGE. NO JOINT EFFUSION. SKIN: NORMAL FOR ETHNICITY; NO ECCHYMOSIS. : NORMAL EXTERNAL GENITALIA. PSYCH : CALM. COOPERATIVE Objective Labs Result Diagrams: 11/11/21 04:30 11/11/21 04:30 Labs: Laboratory Results - last 24 hr 11/11/21 11/11/21 11/11/21 04:30 04:30 11:45 WBC 10.1 RBC 3.40 L Hgb 9.7 L Hct 30.6 L MCV 89.9 MCH 28.6 MCHC 31.8 RDW 17.0 H Plt Count 434 H Neut % (Auto) 74.1 Lymph % (Auto) 11.8 L Calvert % (Auto) 11.0 Eos % (Auto) 2.1 Baso % (Auto) 1.0 Neut # (Auto) 7500 H Lymph # (Auto) 1200 Calvert # (Auto) 1100 H Eos # (Auto) 200 Baso # (Auto) 100 Sodium 133 L Potassium 4.2 Chloride 95 L Carbon Dioxide 37 H BUN 16 Creatinine 0.60 Estimated GFR > 60.0 BUN/Creatinine Ratio 26.7 H Glucose 159 H Calcium 8.5 Total Bilirubin 0.7 AST 23 ALT 13 Alkaline Phosphatase 60 Total Protein 6.1 L Albumin 3.0 L Globulin 3.1 Albumin/Globulin Ratio 1.0 SARS-CoV-2 (PCR) Negative [facility] Medical History Atrial fibrillation Cholelithiasis Chronic respiratory failure with hypoxia and hypercapnia Depression Diabetes Fracture of left ankle Hyperlipidemia Hypertension Inguinal hernia Iron deficiency anemia Lumbar degenerative disc disease Morbid obesity Obesity hypoventilation syndrome Osteoarthritis Paroxysmal atrial fibrillation Pneumococcal meningitis Prolapsed bladder Surgical History History of abdominoplasty History of gastric bypass Family History Mother Heart disease Father No problems noted. Social History household members: none Smoking Status: Former smoker alcohol intake: former additional social history: lives alone Assessment & Plan Assessment & Plan narrative: PROBLEM LIST ACUTE ON CHRONIC HYPOXIC/HYPERCAPNIC RESPIRATORY FAILURE. IMPROVED GRAM-NEGATIVE PNEUMONIA. IMPROVED SEPTIC SHOCK. RESOLVED GRAM-NEGATIVE UTI. ON ANTIBIOTICS POSSIBLE ACUTE ON CHRONIC SYSTOLIC HEART FAILURE MORBID OBESITY. HIGH RISK FOR MORTALITY ANEMIA. LIKELY OF CHRONIC DISEASE THROMBOCYTOSIS. UNCLEAR CAUSE PHYSICAL DECONDITIONING/DEBILITY POSSIBLE FAILURE TO THRIVE POSITIVE COVID-19 INFECTION WITHOUT SIGNIFICANT SINUS SYMPTOMS POSSIBLE DEMENTIA. BASELINE IS UNCLEAR PLAN CONTINUE CURRENT MANAGEMENT FOR NOW CASE MANAGEMENT IS WORKING ON PLACEMENT TO CUSTODIAL FACILITY HOWEVER DISPOSITION OUT OF THE HOSPITAL IS IMPEDED BY THE POSITIVE COVID-19 TEST REPEAT TESTING ON 11/11 WAS NEGATIVE HOWEVER CASE MANAGEMENT IS AWARE MAINTAIN STRICT ASPIRATION AND FALL PRECAUTIONS NURSING TO ENCOURAGE PATIENT TO USE INCENTIVE SPIROMETER DEVICE ORDERED WHILE AWAKE NURSING TO REORIENT PATIENT WHEN INCREASING CONFUSION IS NOTED GET LABS INDICATED ONLY ADDITIONAL MANAGEMENT PER CLINICAL COURSE PROGNOSIS IS GUARDED AT BEST Time Spent With Patient Critical Care time: I spent a total of [] minutes of critical care time on this patient's care today; this time is exclusive of procedural time. Quality VTE Deep Vein Thrombosis/Pulmonary Embolism Present on Admission: Yes
--- NOTE | 2021-11-11 15:48 | CM.DPNOTE ---
DCP Update Just spoke with patient's adult children; son Jed ([place]) and dtr Camilla( [place]), they express concern about patient going to a SNF in [facility] and review their fears that if patient continues to decline, they will not be able to see her often enough if located in [place] Reviewed DCP options, and reviewed DCP efforts over the last two days. Explained that with patient's COVID Neg result today, [facility] is again reviewing the possibility of accepting patient but they have not made a determination. Jed and Camilla explain that patient's first choice is to stay in [place] and remain at [facility]. Patient recently decided on DNR/DNI and adult children suspect that patient is now agreeable to Hospice care. Camilla suggests that she review plan of care/goals of care with patient in person; patient is extremely [place] according to family members. This DOOR FURRING INSTALLER reviewed above w/ Trust Clerk Sherita Campos. Patient is on COVID precautions at this time d/t her COVID+ results 12.15.21, however, if a visit from a family member will assist in plan of care, Sherita approves family visit, Sherita will make a note for RN ARIANA to approve family visit. Relayed above to dtr Camilla who expresses relief. She will plan to visit Sunday or Sunday and will check in w/CM team re outcome of the conversation w/patient. If patient and family are agreeable to Hospice referral, referral can be completed this weekend and [facility] staff will be updated. It's anticipated that [facility] will more readily accept patient home if under the additional care of Hospice services for end of life management. EMANUEL Mcmanus
[2021-11-11] MEDS: GABAPENTIN 100 MG CAPSULE PO ×2 (16:07→22:05)
[2021-11-11 17:00] VITALS: BP 135/70; PULSE 85; RESP 20; TEMP 36.4; O2SAT 93
[2021-11-11 19:51] VITALS: O2SAT 92
[2021-11-11 21:00] VITALS: BP 104/64; PULSE 84; RESP 18; TEMP 36.2; O2SAT 92
[2021-11-11] MEDS: ATORVASTATIN 20 MG TABLET 80 MG PO (21:52)
[2021-11-11] MEDS: QUETIAPINE 25 MG TABLET 12.5 MG PO (22:03)
[2021-11-11] MEDS: INSULIN GLARGINE 100 UNIT/ML 3ML PEN SUBCUT (22:04)
[2021-11-12] VITALS (8 sets, daily range): BP systolic 100–130; BP diastolic 62–81; PULSE 72–89; RESP 17–20; TEMP 36.6–37.2; O2SAT 89–94
[2021-11-12] MEDS: ACETAMINOPHEN 325 MG TABLET 650 MG PO ×3 (04:17→20:23)
[2021-11-12 04:47] LABS: Add Manual Diff / Slide Review NO; Basophils Absolute Auto 100 /uL (0-100); Basophils Percent Auto 1.1 % (0-2); Eosinophils Absolute Auto 200 /uL (0-450); Eosinophils Percent Auto 2.5 % (2-4); Hematocrit 30.5 % (36-46); Hemoglobin 9.8 g/dL (12.0-16.0); Lymphocytes Absolute Auto 1200 /uL (1100-4500); Lymphocytes Percent Auto 12.6 % (25-40); Mean Corpuscular Hemoglobin 28.8 PG (26-34); Mean Corpuscular Volume 90.1 fL (80-100); Monocytes Absolute Auto 1000 /uL (0-900); Monocytes Percent Auto 10.7 % (3-14); Neutrophils Absolute Auto 6800 /uL (1500-7000); Neutrophils Percent Auto 73.1 % (50-75); Platelet Count 488 X10^3/uL (150-400); Red Blood Cell Count 3.39 X10^6/uL (4.0-5.2); Red Cell Distribution Width 17.1 % (11.6-14.8); White Blood Cell Count 9.4 X10^3/uL (4.5-11.0)
[2021-11-12 04:53] LABS: Alanine Aminotransferase 13 IU/L (<35); Albumin 3.2 g/dL (3.5-5.0); Alkaline Phosphatase 62 U/L (38-126); Aspartate Aminotransferase 25 IU/L (14-36); BUN Creatinine Ratio 31.7 (6-22); Bilirubin Total 0.9 mg/dL (0.2-1.3); Blood Urea Nitrogen 19 mg/dL (7-17); Calcium 8.6 mg/dL (8.4-10.2); Carbon Dioxide 38 mmol/L (22-32); Chloride 95 mmol/L (98-107); Estimated Glomerular Filt Rate > 60.0 mL/min (>60); Globulin 3.2 g/dL (1.7-4.1); Glucose 166 mg/dL (80-110); HEMOLYSIS 22 (0-50); Potassium 4.4 mmol/L (3.4-5.1); Sodium 132 mmol/L (137-145); Total Protein 6.4 g/dL (6.3-8.2)
[2021-11-12] MEDS: PANTOPRAZOLE DR 20 MG TABLET PO (06:29)
[2021-11-12] MEDS: CIPROFLOXACIN 250 MG TABLET 500 MG PO ×2 (06:29→20:24)
[2021-11-12] MEDS: DOCUSATE 100 MG CAPSULE PO ×2 (08:34→20:20)
[2021-11-12] MEDS: ENOXAPARIN 150 MG/ML SYRINGE SUBCUT ×2 (08:35→20:19)
[2021-11-12] MEDS: SENNOSIDES 8.6 MG TABLET 17.2 MG PO ×2 (08:36→20:20)
[2021-11-12] MEDS: GABAPENTIN 100 MG CAPSULE PO ×3 (08:37→20:20)
[2021-11-12] MEDS: METOPROLOL IR 25 MG TABLET 12.5 MG PO ×2 (08:37→20:22)
[2021-11-12] MEDS: ASPIRIN EC 81 MG TABLET PO (08:38)
[2021-11-12] MEDS: INSULIN LISPRO 100 UNIT/ML 3ML VIAL SUBCUT ×3 (08:41→17:16)
[2021-11-12] MEDS: NYSTATIN CREAM 30 GM 1 APPLIC TOP ×2 (11:55→20:35)
--- NOTE | 2021-11-12 12:47 | CM.DPC ---
DCP Continued: ISMAEL spoke with Anais at [facility] who stated that if the patient on Sunday has a negative antigen covid test then they can accept on sunday for admission and she will just need to quarantine there for a week. Second plan is patients daughter is going to come into talk with her mother to discuss hospice. If patient is agreeable to hospice then will start that referral and hopefully send back to [facility] with hospice. ISMAEL called and LVM for [facility] [phone] to see if they will accept back with her on hospice. CM department will follow up on both these plans and assist with DC planning needs. Carlota Vasquez RNgin clerk
--- NOTE | 2021-11-12 15:09 | PM.PN.1 ---
Subjective Subjective Interval history: PATIENT REPORTED TODAY SHE WAS HAVING SOME PAIN IN THE LOWER QUADRANT OF THE ABDOMEN STARTING LEFT RADIATING TO THE RIGHT. NOT REPRODUCIBLE BY PALPATION DENIES ANY NAUSEA OR VOMITING NO DIARRHEA OR CONSTIPATION REPORTED SHE DENIES ANY CHEST PAIN. NO SHORTNESS OF BREATH SPOKE TO NURSING IN REGARD TO THE CASE Exam Vital Signs (past 8 hours): - 11/12/21 08:00 11/12/21 10:24 11/12/21 12:00 Temperature 97.8 F 98 F Pulse Rate 88 87 Respiratory Rate 18 17 Blood Pressure 122/81 130/70 Pulse Oximetry 91 92 92 Fraction of Inspired Oxygen 55 Oxygen Delivery Method Nasal Cannula Oxygen Flow Rate 3 Narrative Exam Narrative: NO ACUTE DISTRESS.? PATIENT IS ALERT, AWAKE? ORIENTED TIME 3.? MORBIDLY OBESE VITAL SIGNS STABLE HEAD ATRAUMATIC NORMOCEPHALIC NECK : NO ADENOPATHY NO CAROTID BRUITS EYE:? EOMI, PERRLA, NORMAL CONJUNCTIVA; NO JAUNDICE CHEST:? REGULAR RATE.? ? NO RUBS.? PMI IS NON DISPLACED. NORMAL S1-S2 PULMONARY:? DECREASED BS OVER THE BASES.? MILD BIBASILAR CRACKLES NOTED; NO WHEEZING ABDOMEN:? OBESE BUTSOFT.? NONTENDER.? NONDISTENDED.? BOWEL SOUNDS ARE PRESENT IN ALL 4 QUADRANTS.? NO MASS. EXTREMITIES:? 3+ NONPITTING BILATERAL LOWER EXTREMITYEDEMA..? NO CYANOSIS OR CLUBBING NOTED. NEURO:? CRANIAL NERVES 2-12 GROSSLY INTACT. NO FOCAL NEUROLOGICAL DEFICIT NOTED.? DEMENTIA MSK:? NORMAL RANGE OF MOTION FOR AGE.? NO JOINT EFFUSION. SKIN:? NORMAL FOR ETHNICITY; NO ECCHYMOSIS. ? :? NORMAL EXTERNAL GENITALIA. PSYCH :? CALM.? COOPERATIVE Objective Labs Result Diagrams: 11/12/21 04:20 11/12/21 04:20 Labs: Laboratory Results - last 24 hr 11/12/21 11/12/21 04:20 04:20 WBC 9.4 RBC 3.39 L Hgb 9.8 L Hct 30.5 L MCV 90.1 MCH 28.8 MCHC 32.0 RDW 17.1 H Plt Count 488 H Neut % (Auto) 73.1 Lymph % (Auto) 12.6 L [place] % (Auto) 10.7 Eos % (Auto) 2.5 Baso % (Auto) 1.1 Neut # (Auto) 6800 Lymph # (Auto) 1200 [place] # (Auto) 1000 H Eos # (Auto) 200 Baso # (Auto) 100 Sodium 132 L Potassium 4.4 Chloride 95 L Carbon Dioxide 38 H BUN 19 H Creatinine 0.60 Estimated GFR > 60.0 BUN/Creatinine Ratio 31.7 H Glucose 166 H Calcium 8.6 Total Bilirubin 0.9 AST 25 ALT 13 Alkaline Phosphatase 62 Total Protein 6.4 Albumin 3.2 L Globulin 3.2 Albumin/Globulin Ratio 1.0 PFSH Medical History Atrial fibrillation Cholelithiasis Chronic respiratory failure with hypoxia and hypercapnia Depression Diabetes Fracture of left ankle Hyperlipidemia Hypertension Inguinal hernia Iron deficiency anemia Lumbar degenerative disc disease Morbid obesity Obesity hypoventilation syndrome Osteoarthritis Paroxysmal atrial fibrillation Pneumococcal meningitis Prolapsed bladder Surgical History History of abdominoplasty History of gastric bypass Family History Mother Heart disease Father No problems noted. Social History household members: none Smoking Status: Former smoker alcohol intake: former additional social history: lives alone Assessment & Plan Assessment & Plan narrative: PROBLEM LIST ACUTE ON CHRONIC HYPOXIC/HYPERCAPNIC RESPIRATORY FAILURE.? IMPROVED GRAM-NEGATIVE PNEUMONIA.? IMPROVED SEPTIC SHOCK.? RESOLVED GRAM-NEGATIVE UTI.? ON ANTIBIOTICS POSSIBLE ACUTE ON CHRONIC SYSTOLIC HEART FAILURE MORBID OBESITY.? HIGH RISK FOR MORTALITY ANEMIA.? LIKELY OF CHRONIC DISEASE THROMBOCYTOSIS.? UNCLEAR CAUSE PHYSICAL DECONDITIONING/DEBILITY POSSIBLE FAILURE TO THRIVE POSITIVE COVID-19 INFECTION WITHOUT SIGNIFICANT SINUS SYMPTOMS POSSIBLE DEMENTIA.? BASELINE IS UNCLEAR HYPONATREMIA. BE SIADH. MILD. PLAN 11/12 PATIENT IS MORE INTERACTIVE TODAY SHE REPORTED ABDOMINAL PAIN HOWEVER ON EXAM THERE WAS NO SIGNIFICANT FINDINGS CONTINUE CURRENT MANAGEMENT FOR NOW LABS AND VITAL SIGNS REMAINED STABLE SPOKE TO CASE MANAGEMENT IN REGARD TO DISCHARGE PLANNING PLAN TO REPEAT COVID-19 TESTING IN THE MORNING IF NEGATIVE PATIENT WILL BE DISCHARGED TO AN ACCEPTING HALFWAY FACILITY ADDITIONAL MANAGEMENT PER CLINICAL COURSE 11/11 CONTINUE CURRENT MANAGEMENT FOR NOW CASE MANAGEMENT IS WORKING ON PLACEMENT TO HALFWAY FACILITY HOWEVER DISPOSITION OUT OF THE HOSPITAL IS IMPEDED BY THE POSITIVE COVID-19 TEST REPEAT TESTING ON 11/11 WAS NEGATIVE HOWEVER CASE MANAGEMENT IS AWARE MAINTAIN STRICT ASPIRATION AND FALL PRECAUTIONS NURSING TO ENCOURAGE PATIENT TO USE INCENTIVE SPIROMETER DEVICE ORDERED WHILE AWAKE NURSING TO REORIENT PATIENT WHEN INCREASING CONFUSION IS NOTED GET LABS INDICATED ONLY ADDITIONAL MANAGEMENT PER CLINICAL COURSE PROGNOSIS IS GUARDED AT BEST Time Spent With Patient Critical Care time: I spent a total of [] minutes of critical care time on this patient's care today; this time is exclusive of procedural time. Quality VTE Deep Vein Thrombosis/Pulmonary Embolism Present on Admission: Yes
--- NOTE | 2021-11-12 15:16 | PC.NURSE ---
Pain: pt reports lower abd pain 8 out of 10. Tylenol given without relief. placed ice bag which helped it feel better. reports left hip pain. left hip with hard edema and slightly red. incontinent urine. No BM for 6 days. Report given to Phoebe PAVON.
[2021-11-12] MEDS: SODIUM CHLORIDE 0.9% FLUSH 10 ML IV (20:19)
[2021-11-12] MEDS: polyethylene glycoL 3350 17 GM POWD.PACK PO (20:19)
[2021-11-12] MEDS: DONEPEZIL 5 MG TABLET 20 MG PO (20:20)
[2021-11-12] MEDS: ATORVASTATIN 20 MG TABLET 80 MG PO (20:20)
[2021-11-12] MEDS: QUETIAPINE 25 MG TABLET 12.5 MG PO (20:22)
[2021-11-12] MEDS: INSULIN GLARGINE 100 UNIT/ML 3ML PEN SUBCUT (20:24)
[2021-11-12] MEDS: HYDROCODONE/ACET 5/325 TABLET 1 TAB PO (23:52)
[2021-11-13] VITALS (7 sets, daily range): BP systolic 108–145; BP diastolic 61–75; PULSE 77–91; RESP 18–25; TEMP 36.3–36.8; O2SAT 92–95
[2021-11-13] MEDS: ACETAMINOPHEN 325 MG TABLET 650 MG PO (05:14)
[2021-11-13 05:50] LABS: Alanine Aminotransferase 13 IU/L (<35); Albumin 3.2 g/dL (3.5-5.0); Alkaline Phosphatase 62 U/L (38-126); Aspartate Aminotransferase 23 IU/L (14-36); BUN Creatinine Ratio 27.7 (6-22); Bilirubin Total 0.9 mg/dL (0.2-1.3); Blood Urea Nitrogen 13 mg/dL (7-17); Calcium 8.7 mg/dL (8.4-10.2); Carbon Dioxide 36 mmol/L (22-32); Chloride 94 mmol/L (98-107); Estimated Glomerular Filt Rate > 60.0 mL/min (>60); Globulin 3.2 g/dL (1.7-4.1); Glucose 172 mg/dL (80-110); HEMOLYSIS < 15 (0-50); Hematocrit 29.1 % (36-46); Hemoglobin 9.5 g/dL (12.0-16.0); Mean Corpuscular HGB Conc 32.5 % (30-36); Mean Corpuscular Volume 89.4 fL (80-100); Platelet Count 515 X10^3/uL (150-400); Potassium 4.2 mmol/L (3.4-5.1); Red Blood Cell Count 3.26 X10^6/uL (4.0-5.2); Red Cell Distribution Width 17.2 % (11.6-14.8); Sodium 132 mmol/L (137-145); Total Protein 6.4 g/dL (6.3-8.2); White Blood Cell Count 9.6 X10^3/uL (4.5-11.0)
[2021-11-13 07:03] LABS: Lymphocytes Percent Auto 10.5 % (25-40); Neutrophils Percent Auto 76.3 % (50-75)
[2021-11-13 07:04] LABS: Add Manual Diff / Slide Review NO; Basophils Absolute Auto 100 /uL (0-100); Eosinophils Absolute Auto 200 /uL (0-450); Eosinophils Percent Auto 2.4 % (2-4); Lymphocytes Absolute Auto 1000 /uL (1100-4500); Monocytes Absolute Auto 900 /uL (0-900); Monocytes Percent Auto 9.8 % (3-14); Neutrophils Absolute Auto 7300 /uL (1500-7000)
[2021-11-13] MEDS: ENOXAPARIN 150 MG/ML SYRINGE SUBCUT (08:38)
[2021-11-13] MEDS: polyethylene glycoL 3350 17 GM POWD.PACK PO (08:38)
[2021-11-13] MEDS: SENNOSIDES 8.6 MG TABLET 17.2 MG PO ×2 (08:39→21:40)
[2021-11-13] MEDS: METOPROLOL IR 25 MG TABLET 12.5 MG PO ×2 (08:39→21:40)
[2021-11-13] MEDS: GABAPENTIN 100 MG CAPSULE PO ×3 (08:39→21:40)
[2021-11-13] MEDS: DOCUSATE 100 MG CAPSULE PO ×2 (08:39→21:42)
[2021-11-13] MEDS: ASPIRIN EC 81 MG TABLET PO (08:39)
[2021-11-13] MEDS: NYSTATIN CREAM 30 GM 1 APPLIC TOP ×2 (08:40→21:55)
[2021-11-13] MEDS: PANTOPRAZOLE DR 20 MG TABLET PO (08:42)
[2021-11-13] MEDS: CIPROFLOXACIN 250 MG TABLET 500 MG PO (08:42)
[2021-11-13] MEDS: INSULIN LISPRO 100 UNIT/ML 3ML VIAL SUBCUT ×3 (08:50→16:28)
--- NOTE | 2021-11-13 10:26 | CM.DPC ---
Addendum entered by EMANUEL Guerin 11/13/21 13:04: ADD: PATRICIA spoke with pt's Dtr Brionna outside of pt's room along with RN and Dtr confirms that pt is choosing return to [facility] as pt wants comfort measures and does not want to be intubated or to have to return to the hospital. Pt does not want SNF at this time. MD arrived and reviewed POLST form with Dtr and pt and updated POLST form with pt signature along with MD. 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 PATRICIA called [facility] with new referral and faxed packet to review along with a copy of a POLST and they have openings coming up likely and Sun this week and will review. PATIRCIA called LIBRADO Saunders at [facility] with update on pt change to Comfort Care and decision of wanting Hospice and Nicky confirms that pt will need bedside assessment prior to return and SW will need to call tomorrow Sun morning to request assessment to confirm pt can return. PATRICIA faxed clinicals to review along with updated multiple COVID negative swab results. LIBRADO Saunders called back stating pt will be reviewed in the morning but in order to get her room set up and bedside assessment they would not be able to accept until afternoon. Plan: PATRICIA to follow closely for plan of pt return to [facility] with [facility] and to update [facility] once confirmation that [facility] will accept pt back with comfort measures. Raven Barrios Original Note: DCP Cont: PATRICIA spoke to April admissions at [facility] who confirms they received [facility] auth for pt for their facility but need second Negative Antigen test for pt 72 hrs after her last test on 11/11/21 and therefore pt can be tested tomorrow 11/14/21 around 1130 and will take a little while to get results back and then [facility] can accept the following day 11/15/21. PATRICIA called pt's Dtr Brionna and confirmed that she is planning to be bedside with pt today around 1130 to check in with her and discuss if pt is interested in more palliaitive approach and wanting Comfort Measures and Hospice vs SNF rehab and then return to [facility]. PATRICIA updated MD and RN on above. RN already swabbed pt for PCR test but now aware that antigen test will be needed tomorrow. Plan: SW to follow closely after pt's Dtr arrives bedside towards confirming appropriate d/c plan. EMANUEL Guerin
[2021-11-13 10:49] LABS: COVID19 - ADMIT (NP swab/PCR) Negative (Negative)
[2021-11-13] MEDS: HYDROCODONE/ACET 5/325 TABLET 1 TAB PO (11:26)
[2021-11-13] MEDS: INSULIN GLARGINE 100 UNIT/ML 3ML PEN SUBCUT ×2 (11:26→21:43)
--- NOTE | 2021-11-13 13:23 | PM.PN.1 ---
Subjective Subjective Date Patient Seen: 11/13/21 Interval history: PATIENT CONTINUED TO HAVE DISCOMFORT TO THE LOWER ABDOMINAL AREA SHE STATED AGAIN IS WHEN SHE MOVED SIDE TO SIDE DENIES ANY DIARRHEA NO FEVER OR CHILLS SHE DENIES ANY CHEST PAIN.? NO SHORTNESS OF BREATH SPOKE TO DAUGHTER AT BEDSIDE Exam Vital Signs (past 8 hours): - 11/13/21 08:00 11/13/21 12:00 Temperature 98 F 97.7 F Pulse Rate 91 H 90 Respiratory Rate 22 25 H Blood Pressure 116/61 120/69 Pulse Oximetry 93 95 Fraction of Inspired Oxygen 55 Oxygen Delivery Method Nasal Cannula Oxygen Flow Rate 3 Narrative Exam Narrative: O ACUTE DISTRESS.? PATIENT IS ALERT, AWAKE? ORIENTED TIME 3.? MORBIDLY OBESE VITAL SIGNS STABLE HEAD ATRAUMATIC AND NORMOCEPHALIC NECK : NO ADENOPATHY NO CAROTID BRUITS EYE:? EOMI, PERRLA, NORMAL CONJUNCTIVA; NO JAUNDICE CHEST:? REGULAR RATE.? ? NO RUBS.? PMI IS NON DISPLACED. NORMAL S1-S2 PULMONARY:? DECREASED BS OVER THE BASES.? MILD BIBASILAR CRACKLES NOTED; NO WHEEZING ABDOMEN:? OBESE BUT SOFT.? NONTENDER.? NONDISTENDED.? BOWEL SOUNDS ARE PRESENT IN ALL 4 QUADRANTS.? NO MASS. EXTREMITIES:? 3+ NONPITTING BILATERAL LOWER EXTREMITYEDEMA..? NO CYANOSIS OR CLUBBING NOTED. NEURO:? CRANIAL NERVES 2-12 GROSSLY INTACT. NO FOCAL NEUROLOGICAL DEFICIT NOTED.? DEMENTIA MSK:? NORMAL RANGE OF MOTION FOR AGE.? NO JOINT EFFUSION. SKIN:? NORMAL FOR ETHNICITY; NO ECCHYMOSIS. ? :? NORMAL EXTERNAL GENITALIA. PSYCH :? CALM.? COOPERATIVE Objective Labs Result Diagrams: 11/13/21 05:10 11/13/21 05:10 Labs: Laboratory Results - last 24 hr 11/13/21 11/13/21 11/13/21 05:10 05:10 09:24 WBC 9.6 RBC 3.26 L Hgb 9.5 L Hct 29.1 L MCV 89.4 MCH 29.0 MCHC 32.5 RDW 17.2 H Plt Count 515 H Neut % (Auto) 76.3 H Lymph % (Auto) 10.5 L [place] % (Auto) 9.8 Eos % (Auto) 2.4 Baso % (Auto) 1.0 Neut # (Auto) 7300 H Lymph # (Auto) 1000 L [place] # (Auto) 900 Eos # (Auto) 200 Baso # (Auto) 100 Total Counted Cancelled Seg Neutrophils % Cancelled Band Neutrophils % Cancelled Lymphocytes % (Manual) Cancelled Atypical Lymphs % Cancelled Monocytes % (Manual) Cancelled Eosinophils % (Manual) Cancelled Basophils % (Manual) Cancelled Metamyelocytes % Cancelled Myelocytes % Cancelled Promyelocytes % Cancelled Blast Cells % Cancelled Neutrophils # (Manual) Cancelled Nucleated RBCs Cancelled Differential Comment Cancelled Hypersegmented Neuts Cancelled Reactive Lymphocytes Cancelled Plasma Cells Cancelled Smudge Cells Cancelled Other Cell Type Cancelled Toxic Granulation Cancelled Toxic Vacuolation Cancelled Dohle Bodies Cancelled Javan Rods Cancelled WBC Morphology Comment Cancelled Platelet Estimate Cancelled Clumped Platelets Cancelled Plt Morphology Comment Cancelled RBC Morphology Cancelled Dimorphic RBCs Cancelled Polychromasia Cancelled Hypochromasia Cancelled Poikilocytosis Cancelled Basophilic Stippling Cancelled Anisocytosis Cancelled Microcytosis Cancelled Macrocytosis Cancelled Spherocytes Cancelled Pappenheimer Bodies Cancelled Sickle Cells Cancelled Target Cells Cancelled Tear Drop Cells Cancelled Ovalocytes Cancelled Stomatocytes Cancelled Helmet Cells Cancelled [place] Bodies Cancelled [place] Rings Cancelled Osiel Cells Cancelled Acanthocytes (Spur) Cancelled Rouleaux Cancelled Schistocytes Cancelled Sodium 132 L Potassium 4.2 Chloride 94 L Carbon Dioxide 36 H BUN 13 Creatinine 0.47 L Estimated GFR > 60.0 BUN/Creatinine Ratio 27.7 H Glucose 172 H Calcium 8.7 Total Bilirubin 0.9 AST 23 ALT 13 Alkaline Phosphatase 62 Total Protein 6.4 Albumin 3.2 L Globulin 3.2 Albumin/Globulin Ratio 1.0 SARS-CoV-2 (PCR) Negative [facility] Medical History Atrial fibrillation Cholelithiasis Chronic respiratory failure with hypoxia and hypercapnia Depression Diabetes Fracture of left ankle Hyperlipidemia Hypertension Inguinal hernia Iron deficiency anemia Lumbar degenerative disc disease Morbid obesity Obesity hypoventilation syndrome Osteoarthritis Paroxysmal atrial fibrillation Pneumococcal meningitis Prolapsed bladder Surgical History History of abdominoplasty History of gastric bypass Family History Mother Heart disease Father No problems noted. Social History household members: none Smoking Status: Former smoker alcohol intake: former additional social history: lives alone Assessment & Plan Assessment & Plan narrative: PROBLEM LIST ACUTE ON CHRONIC HYPOXIC/HYPERCAPNIC RESPIRATORY FAILURE.? IMPROVED GRAM-NEGATIVE PNEUMONIA.? IMPROVED SEPTIC SHOCK.? RESOLVED GRAM-NEGATIVE UTI.? COMPLETED A COURSE OF ANTIBIOTICS POSSIBLE ACUTE ON CHRONIC SYSTOLIC HEART FAILURE. APPEARS RESOLVED MORBID OBESITY.? HIGH RISK FOR MORTALITY ANEMIA.? LIKELY OF CHRONIC DISEASE THROMBOCYTOSIS.? UNCLEAR CAUSE PHYSICAL DECONDITIONING/DEBILITY POSSIBLE FAILURE TO THRIVE POSITIVE COVID-19 INFECTION WITHOUT SIGNIFICANT SINUS SYMPTOMS POSSIBLE DEMENTIA.? BASELINE IS UNCLEAR HYPONATREMIA.? BE SIADH.? MILD. POSSIBLE ABDOMINAL HERNIA. COULD BE THE SOURCE OF ABDOMINAL DISCOMFORT PLAN 11/13 POAshley SPOKE TO PATIENT TODAY REGARD TO POSSIBLE REFERRAL TO HOSPICE AND COMFORT MEASURES SHE IS AGREEABLE HOSPICE TEAM WILL BE CONSULTED PLAN IS TO DISCHARGE PATIENT TO HER ASSISTED LIVING FACILITY ON THE HOSPICE CARE. WILL DISCONTINUE ALL UNNECESSARY LABS DRAWN AT THIS TIME CT SCAN OF THE ABDOMEN TO WORKUP POSSIBLE SOURCE OF HER ABDOMINAL DISCOMFORT ALSO HELD PATIENT IS CLEAR AND STABLE FOR DISCHARGE AT THIS POINT WILL AWAIT CASE MANAGEMENT INPUT IN REGARD TO WHEN IT WOULD BE APPROPRIATE TO PLACE DISCHARGE ORDERS DISCHARGE WILL LIKELY BE IN THE NEXT 24 HOURS 11/12 PATIENT IS MORE INTERACTIVE TODAY SHE REPORTED ABDOMINAL PAIN HOWEVER ON EXAM THERE WAS NO SIGNIFICANT FINDINGS CONTINUE CURRENT MANAGEMENT FOR NOW LABS AND VITAL SIGNS REMAINED STABLE SPOKE TO CASE MANAGEMENT IN REGARD TO DISCHARGE PLANNING PLAN TO REPEAT COVID-19 TESTING IN THE MORNING IF NEGATIVE PATIENT WILL BE DISCHARGED TO AN ACCEPTING [facility] FACILITY ADDITIONAL MANAGEMENT PER CLINICAL COURSE 11/11 CONTINUE CURRENT MANAGEMENT FOR NOW CASE MANAGEMENT IS WORKING ON PLACEMENT TO [facility] FAC[facility] HOWEVER DISPOSITION OUT OF THE HOSPITAL IS IMPEDED BY THE POSITIVE COVID-19 TEST REPEAT TESTING ON 11/11 WAS NEGATIVE HOWEVER CASE MANAGEMENT IS AWARE MAINTAIN STRICT ASPIRATION AND FALL PRECAUTIONS NURSING TO ENCOURAGE PATIENT TO USE INCENTIVE SPIROMETER DEVICE ORDERED WHILE AWAKE NURSING TO REORIENT PATIENT WHEN INCREASING CONFUSION IS NOTED GET LABS INDICATED ONLY ADDITIONAL MANAGEMENT PER CLINICAL COURSE PROGNOSIS IS GUARDED AT BEST Time Spent With Patient Critical Care time: I spent a total of [] minutes of critical care time on this patient's care today; this time is exclusive of procedural time. Quality VTE Deep Vein Thrombosis/Pulmonary Embolism Present on Admission: Yes
[2021-11-13] MEDS: MAGNESIUM HYDROXIDE 30 ML UDC PO (15:13)
[2021-11-13] MEDS: LACTULOSE 20 GM/30 ML SOLUTION PO (15:58)
[2021-11-13] MEDS: OXYCODONE IR 5 MG TABLET PO ×2 (16:13→22:41)
[2021-11-13] MEDS: DONEPEZIL 5 MG TABLET 20 MG PO (21:38)
[2021-11-13] MEDS: QUETIAPINE 25 MG TABLET 12.5 MG PO (21:39)
[2021-11-13] MEDS: ATORVASTATIN 20 MG TABLET 80 MG PO (21:39)
[2021-11-14] VITALS: BP 111/61; PULSE 95; RESP 18; TEMP 36.2; O2SAT 92
--- NOTE | 2021-11-14 01:43 | PC.NURSE ---
SHIFT: Report received, care assumed 1914. A&Ox4. Sometimes fails to respond to questions; unclear if she is drowsy, distractible, or hard of hearing. VSS, 3LNC. Bedrest as baseline d/t mobility limitations. C/o generalized pain, assisted with repositioning in bed at her request; pt also received pain medication and is using ice packs on her upper legs. Tolerated PO meds, no difficulty in swallowing. Some GI discomfort, declined Miralax. Asleep after administration of pain med.
[2021-11-14 04:00] VITALS: BP 110/75; PULSE 92; RESP 20; TEMP 36.3; O2SAT 98
[2021-11-14] MEDS: OXYCODONE IR 5 MG TABLET PO (06:39)
[2021-11-14] MEDS: PANTOPRAZOLE DR 20 MG TABLET PO (06:39)
--- NOTE | 2021-11-14 09:10 | CM.DPC ---
Addendum entered by EMANUEL Guerin 11/14/21 12:38: ADD: PATRICIA recieved call from Randee at [facility] and she confirmed they received all clinicals including d/c summ and med rec and plan to call Dtr tomorrow for Info Visit and to start pt on service. PATRICIA called pt's Dtr Brionna and updated on d/c time and mode of transportation and Hospice call tomorrow and Dtr very appreciative of information and agreeable. BF Addendum entered by EMANUEL Guerin 11/14/21 10:43: ADD: PATRICIA spoke to Patti at [facility] and she states since pt will be comfort measures and [facility] to open this week then they do not need to do bedside assessment for pt return. PATRICIA discussed transport and Patti states concerns that last ED admission they attempted to transport pt via facility van and were unable as pt was too weak and elena and BLS had to be scheduled last min. Due to pt's medical comorbidities and morbid obesity, decision made of scheduling [facility] stretcher transport. KARLA Sloan scheduled [facility] for 1300 and PATRICIA completed BLS form and attached facesheet and updated POLST form. PATRICIA called and updated [facility] on transport time and MD completed hard copy scripts and signed med rec and KARLA Sloan kindly faxed to [facility]. PATRICIA updated [employer] SPECIALIST, associate professor of management and RN. [facility] states they do not need updated COVID swab since one was done yesterday 11/13/21 and was negative again but they would appreciate another swab today but not needed. PATRICIA updated RN and pt is not an easy COVID swab as she really struggles with it. PATRICIA faxed d/c summary to [facility] to review along with med list. Plan: Patient to d/c back to [facility] via [facility] at 1300 with [facility] to open this week. EMANUEL Guerin Original Note: DCP Discharge HALFWAY with Hospice PATRICIA called [facility] and confirmed they only received half of the faxed clinicals yesterday due to fax machine issues. PATRICIA refaxed the additional clinicals to review and requested Info Visit with Dtr. PATRICIA called [facility] and left msg at RN station inquiring approximate time for assessment by RN and to confirm they received the clinicals to review yesterday for plan of d/c back today with [facility] to open after d/c. Plan: SW to follow closely for plan of pt return to [facility] this afternoon and [facility] for additional support. EMANUEL Guerin
[2021-11-14] MEDS: DOCUSATE 100 MG CAPSULE PO (09:44)
[2021-11-14] MEDS: ASPIRIN EC 81 MG TABLET PO (09:44)
[2021-11-14] MEDS: FLUTICASONE 120 SPRAY/16 GM SPRAY.SUSP NASAL (09:44)
[2021-11-14] MEDS: METOPROLOL IR 25 MG TABLET 12.5 MG PO (09:45)
[2021-11-14] MEDS: GABAPENTIN 100 MG CAPSULE PO (09:45)
[2021-11-14] MEDS: SENNOSIDES 8.6 MG TABLET 17.2 MG PO (09:45)
[2021-11-14] MEDS: polyethylene glycoL 3350 17 GM POWD.PACK PO (09:45)
[2021-11-14] MEDS: NYSTATIN CREAM 30 GM 1 APPLIC TOP (09:45)
[2021-11-14] MEDS: INSULIN LISPRO 100 UNIT/ML 3ML VIAL SUBCUT (09:48)
[2021-11-14] MEDS: INSULIN GLARGINE 100 UNIT/ML 3ML PEN SUBCUT (09:48)
[2021-11-14 10:00] VITALS: BP 103/58; PULSE 82; RESP 20; TEMP 36.6; O2SAT 94
--- NOTE | 2021-11-14 10:27 | CM.DPNOTE ---
Called [facility] per Raven for BLS transport at 1300 11/14/21 To [place]. Spoke to Robyn and told her pt. on 3L O2 & last 2 covid tests came back neg. Nathalia Franco CM Asst.
--- NOTE | 2021-11-14 10:28 | P.DS_ITS ---
History of Present Illness History of Present Illness Date Patient Seen: 11/14/21 Chief complaint: hypoxic event earlier today, better now Narrative: History of Present Illness History of Present Illness Narrative: The patient is a 70-year-old female with a history of COPD, chronic hypoxic hypercapnic respiratory failure, atrial fibrillation not anticoagulated, type 2 diabetes, hypertension, hyperlipidemia, iron deficiency anemia, morbid obesity, recent history of COVID who was hospitalized and discharged October 08, 2021.? She has been hospitalized in July and September of this year.? She was discharged from the hospital after an episode of acute hypoxic respiratory failure.? The patient was initially placed on heated high-flow oxygen in u ltimately able to be rapidly tapered down to 3-4 L which is her baseline.? She remained stable was discharged back home.? She was sent back to the emergency department from [facility] due to progressive hypoxemia despite increasing levels of oxygen.? On arrival the patient was quite lethargic.? A room air ABG was obtained which revealed a pH is 7.4 pCO2 of 75 PO2 of 47 bicarb a 47 O2 sat of 80%.? Her lactate was 0.8.? White count was 5.8 hemoglobin 11.6 hematocrit 37.8, D-dimer was elevated at 560.? Her proBNP was 784.? Chest x-ray revealed cardiomegaly, and diffuse ground-glass opacities which were felt to be chronic.? The patient was quite lethargic, minimally responsive, and ultimately felt to be obtained id.? She was placed on BiPAP and still unresponsive.? Patient was found to have pinpoint pupils.? It she will be given Narcan in a decision will be made whether the patient needs intubation or whether she can continue to tolerate BiPAP.? The patient was placed on BiPAP in the emergency room.? She is DNR however her family would like her to be intubated if needed.? The patient is encephalopathic, unresponsive, and unable to provide any further history.? She is admitted to the hospital for progressive acute on chronic hypoxic respiratory failure Discharge Providers Provider Date of admission: 10/31/21 21:45 Discharge Date: 11/14/21 Primary care physician: Johnny Saini MD Consults: 10/31/21 19:05 Consult to Respiratory Therapy Evaluate & Treat Comment: Physician Instructions: Evaluate and treat 10/31/21 22:19 Consult to Tele-school counselor Routine Comment: Consulting Provider: [employer] Reason for consultation: [employer] 11/01/21 03:35 Consult After Hours PICC Line RN Routine Comment: 11/01/21 04:07 Consult to Dietitian, Adult Routine Comment: Reason For Exam: Patient on Ventilator and NPO 11/06/21 12:49 Consult to Speech Therapy Evaluate & Treat Comment: swallow eval Physician Instructions: Evaluate and treat 11/07/21 08:06 Consult to Occupational Therapy Evaluate & Treat Comment: Physician Instructions: Evaluate and treat Consult to Physical Therapy Evaluate & Treat Comment: Physician Instructions: Evaluate and Treat 11/07/21 08:10 Consult to Palliative Care Stat Comment: Consulting Provider: Tiffanie Silveira 11/07/21 08:11 Consult to Occupational Therapy Evaluate & Treat Comment: Physician Instructions: Evaluate and treat Consult to Physical Therapy Evaluate & Treat Comment: Physician Instructions: Evaluate and Treat Discharge provider: Conchis Kenney DO Summary Hospital Course Discharge Diagnosis: ACUTE ON CHRONIC HYPOXIC/HYPERCAPNIC RESPIRATORY FAILURE.? IMPROVED GRAM-NEGATIVE PNEUMONIA. COMPLETED AN ANTIBIOTIC COURSE. RESPIRATORY STATUS IMPROVING SEPTIC SHOCK.? RESOLVED GRAM-NEGATIVE UTI.? COMPLETED A COURSE OF ANTIBIOTICS POSSIBLE ACUTE ON CHRONIC SYSTOLIC HEART FAILURE.? APPEARS RESOLVED. NO SIGN OF ACUTE DECOMPENSATION MORBID OBESITY.? HIGH RISK FOR MORTALITY ANEMIA.? LIKELY OF CHRONIC DISEASE THROMBOCYTOSIS.? UNCLEAR CAUSE PHYSICAL DECONDITIONING/DEBILITY POSSIBLE FAILURE TO THRIVE POSITIVE COVID-19 INFECTION WITHOUT SIGNIFICANT CONCERNING SYMPTOMS. NONE NEGATIVE ON RETESTING POSSIBLE DEMENTIA.? BASELINE IS UNCLEAR HYPONATREMIA.? BE SIADH.? MILD. POSSIBLE ABDOMINAL HERNIA.? COULD BE THE SOURCE OF ABDOMINAL DISCOMFORT. NO FURTHER INVESTIGATION Hospital Course: THIS IS A MORBIDLY OBESE 70-YEAR-OLD FEMALE WHO RESIDES AT ASSISTED LIVING FACILITY AND HAS BEEN IN THE HOSPITAL FOR THE LAST FEW DAYS AND TREATED FOR PNEUMONIA, UTI WELL SIGNIFICANT PHYSICAL DECONDITIONING. PATIENT HAS COMPLETED A COURSE OF ANTIBIOTICS FOR WHAT WAS SUSPECTED TO BE GRAM- NEGATIVE PNEUMONIA WELL UTI. SEPSIS WITH SEPTIC SHOCK WITH SUSPECTED ADMISSION. WITH URINARY TRACT INFECTION AND THE PNEUMONIA BEING THE SOURCE OF THE SEPSIS. IN ANY CASE AT THIS TIME PATIENT HAS ELECTED TO GO INTO HOSPICE WITH COMFORT MEASURE ONLY. SHE HAS MULTIPLE COMORBIDITIES AND THIS DECISION APPEAR TO BE APPROPRIATE AT THIS TIME. PATIENT IS A DNR AND APPROPRIATE PAPERWORK SIGNED ON 11/13 SHE WILL BE DISCHARGED BACK TO ASSISTED LIVING COMFORT MEASURE CARE ONLY AT THIS TIME. ADDITIONAL MANAGEMENT WILL BE DEFERRED TO THE HOSPICE AND OTHER OUTPATIENT PROVIDER TEAMS Status at Discharge Cognitive/behavioral status at discharge: oriented Functional status at discharge: bed bound Overall status at discharge: patient is not back to baseline Time Spent with Patient Time spent: Greater than 30 minutes Exam Vital Signs (past 8 hours): - 11/14/21 04:00 Temperature 97.3 F L Pulse Rate 92 H Respiratory Rate 20 Blood Pressure 110/75 Pulse Oximetry 98 Fraction of Inspired Oxygen 55 Oxygen Delivery Method Nasal Cannula Oxygen Flow Rate 3 Narrative Exam Narrative: NO ACUTE DISTRESS.? PATIENT IS ALERT, AWAKE? ORIENTED TIME 3.? MORBIDLY OBESE VITAL SIGNS STABLE HEAD ATRAUMATIC AND NORMOCEPHALIC NECK : NO ADENOPATHY NO CAROTID BRUITS EYE:? EOMI, PERRLA, NORMAL CONJUNCTIVA; NO JAUNDICE CHEST:? REGULAR RATE.? ? NO RUBS.? PMI IS NON DISPLACED. NORMAL S1-S2 PULMONARY:? DECREASED BS OVER THE BASES.? MILD BIBASILAR CRACKLES NOTED; NO WHEEZING ABDOMEN:? OBESE BUT SOFT.? NONTENDER.? NONDISTENDED.? BOWEL SOUNDS ARE PRESENT IN ALL 4 QUADRANTS.? NO MASS. EXTREMITIES:? 3+ NONPITTING BILATERAL LOWER EXTREMITY EDEMA..? NO CYANOSIS OR CLUBBING NOTED. NEURO:? CRANIAL NERVES 2-12 GROSSLY INTACT. NO FOCAL NEUROLOGICAL DEFICIT NOTED.? DEMENTIA MSK:? NORMAL RANGE OF MOTION FOR AGE.? NO JOINT EFFUSION. SKIN:? NORMAL FOR ETHNICITY; NO ECCHYMOSIS. ? :? NORMAL EXTERNAL GENITALIA. PSYCH :? CALM.? COOPERATIVE. ALERT, AWAKE, ORIENTED X3. NO ANXIETY. Objective Labs Result Diagrams: 11/13/21 05:10 11/13/21 05:10 Labs: Laboratory Results - last 24 hr 11/13/21 09:24 SARS-CoV-2 (PCR) Negative [facility] Medical History Atrial fibrillation Cholelithiasis Chronic respiratory failure with hypoxia and hypercapnia Depression Diabetes Fracture of left ankle Hyperlipidemia Hypertension Inguinal hernia Iron deficiency anemia Lumbar degenerative disc disease Morbid obesity Obesity hypoventilation syndrome Osteoarthritis Paroxysmal atrial fibrillation Pneumococcal meningitis Prolapsed bladder Surgical History History of abdominoplasty History of gastric bypass Family History Mother Heart disease Father No problems noted. Social History household members: none Smoking Status: Former smoker alcohol intake: former additional social history: lives alone Discharge Assessment & Plan Assessment and Plan Assessment: Acute on chronic hypoxic respiratory failure 2. Obesity hypoventilation 3. Obstructive sleep apnea 4. COPD 5. Hyperlipidemia 6. Type 2 diabetes 7. Peripheral neuropathy 8. Hypertension 9. Urinary incontinence 10. Atrial Fibrillation 11. Dementia, with intermittent delirium 12. Acute metabolic encephalopathy present on admission, improved 13. Morbid obesity 14. Acute congestive heart failure, with preserved ejection fraction Plan of Treatment: Discharged to [facility] Medications as prescribed Discharge Plan Discharge Plan [facility] Consult as needed: Dental, Hearing, Mental health, Podiatry and Vision Nursing Discharge Comment: OKAY TO DISCHARGE IF ACCEPTED BY [facility] Discharge orders & Medications Discharge Orders: Discharge (Order); Ordered 11/14/21 Ordered By: Geovanna Sanchez Prescriptions: New lorazepam 1 mg Tablet 1 mg PO Q4HR PRN (Reason: Anxiety) Qty: 20 0RF oxycodone 5 mg Tablet 5 mg PO Q3HR PRN (Reason: Pain, Moderate (4-6)) Qty: 20 0RF Lantus Solostar U-100 Insulin 100 unit/mL (3 mL) Insulin Pen 5 unit SUBCUT BID Qty: 10 0RF pantoprazole 40 mg tablet,delayed release (DR/EC) 40 mg PO 0700 Qty: 60 0RF quetiapine 25 mg Tablet 12.5 mg PO BEDTIME Qty: 30 0RF sennosides [senna] 8.6 mg Tablet 17.2 mg PO BID Qty: 120 0RF polyethylene glycol 3350 17 gram Powder In Packet 17 gm PO BID Qty: 60 0RF docusate sodium 100 mg capsule 100 mg PO BID Qty: 60 0RF Continued ursodiol 300 mg capsule 300 mg PO BID 0RF aspirin 81 mg Tablet,Delayed Release (Dr/Ec) 81 mg PO DAILY 0RF cetirizine [Allergy Relief (cetirizine)] 10 mg Tablet 1 tab PO DAILY 0RF ondansetron HCl 4 mg tablet 4 mg PO Q6HR PRN (Reason: Nausea) 0RF metoprolol tartrate 25 mg tablet 12.5 mg PO BID 0RF donepezil 10 mg tablet 20 mg PO QAM 0RF nystatin 100,000 unit/gram powder 100,000 unit TOPICAL BID 0RF sennosides [senna] 8.6 mg tablet 17.2 mg PO Q12H PRN (Reason: Constipation) 0RF potassium chloride [Klor-Con M10] 10 mEq tablet,ER particles/crystals 20 meq PO DAILYCC 0RF loperamide 2 mg Tablet 2 mg PO Q24H PRN (Reason: LOOSE STOOLS) 0RF acetaminophen 500 mg Tablet 1,000 mg PO BID 0RF pantoprazole 20 mg Tablet,Delayed Release (Dr/Ec) 20 mg PO DAILY 0RF kgwlmbulcsh-eougmllho-lclprdlt 100-62.5-25 mcg Blister With Device 1 inh INHALATION DAILY 0RF albuterol sulfate [Ventolin HFA] 90 mcg/actuation Hfa Aerosol Inhaler 2 puff INHALATION Q4HR PRN (Reason: sob/wheezing) 0RF gabapentin 300 mg Capsule 300 mg PO TID 0RF atorvastatin 80 mg tablet 80 mg PO BEDTIME 0RF Label Comments: take 1 tablet by mouth once daily torsemide 20 mg tablet 1 tab PO QAM 0RF polyethylene glycol 3350 [Miralax] 17 gram Powder In Packet 17 g PO BID PRN (Reason: Constipation) 0RF diltiazem HCl 180 mg capsule,extended release 24hr 180 mg PO DAILY 0RF vitamin A and D Ointment 1 applic TOPICAL BID 0RF insulin lispro [Humalog KwikPen Insulin] 100 unit/mL Insulin Pen 1 sliding scale dose SUBCUT BIDAC 0RF Rx Instructions: CBG 150-200 = 1 unit; 201-250=2 units; 251-300=3 units; 301-350=4 units; 351- 400=5 units; > 400=6 units melatonin 1 mg Tablet 1 mg PO BEDTIME PRN (Reason: Insomnia) 0RF diphenhydramine HCl [Allergy (diphenhydramine)] 25 mg Capsule 50 mg PO Q6H PRN (Reason: Allergic Reaction) 0RF Discontinued ferrous sulfate 325 mg (65 mg iron) Tablet 1 tab PO QAM 0RF Lantus Solostar U-100 Insulin 100 unit/mL (3 mL) insulin pen 9 unit SUBCUT BEDTIME 0RF acetaminophen 325 mg Tablet 650 mg PO Q6H PRN (Reason: PAIN) 0RF Rx Instructions: NOT TO EXCEED 3000MG IN 24H Follow up/Referrals: Johnny Saini MD [Primary Care Provider] - Discharge Health Status Multidrug resistant organism: No MDRO Diet/Activity/Treatments Diet: Carb-consistent/Diabetic, Low-sodium and Low-cholesterol Liquid consistency: Normal/Thin Food texture: Regular Visit Report/Discharge Packet Instructions: How to Prevent Falls Discharge Data Primary Care Provider: Johnny Saini Quality VTE Deep Vein Thrombosis/Pulmonary Embolism Present on Admission: Yes
[2021-11-14 12:38] LABS: COVID19 -Nasal RAPID Negative (Negative)
--- NOTE | 2021-11-14 13:49 | PC.NURSE ---
Discharge Note Patient A&O to baseline, VSS, 3L NC per baseline. Patient agreeable to discharge back to [facility] facility. Midline discontinued. All belongings packed and given to patient. EMS given report, all questions/concerns addressed. Discharge packet given to patient. Patient transferred to stretcher via [facility] lift. Patient taken down via stretcher to ambulance to transfer.
== END 2021-11-14 13:00 | DRG 207 ==
LOC: ED 19:13 → AC 21:45 → ICU 11-01 03:35 → AC 11-08 14:26
PROVIDERS: Hospitalist; Internal Medicine; Internal Medicine Pulmonary Disease; Student in an Organized Health Care Education/Training Program; Admitting Provider Internal Medicine; Emergency Provider Emergency Medicine; PCP Internal Medicine; Referring Provider Emergency Medicine; Visit Provider Internal Medicine
DX: J96.22 Acute and chronic respiratory failure with hypercapnia (principal); G93.41 Metabolic encephalopathy; J15.1 Pneumonia due to Pseudomonas; U07.1 COVID-19; R65.21 Severe sepsis with septic shock; A41.9 Sepsis, unspecified organism; I50.23 Acute on chronic systolic (congestive) heart failure; E66.2 Morbid (severe) obesity with alveolar hypoventilation; Z68.43 Body mass index [BMI] 50.0-59.9, adult; I48.19 Other persistent atrial fibrillation; E87.3 Alkalosis; N39.0 Urinary tract infection, site not specified; J44.9 Chronic obstructive pulmonary disease, unspecified; I11.0 Hypertensive heart disease with heart failure; F03.90 Unspecified dementia, unspecified severity, without behavioral disturbance, psychotic disturbance, mood disturbance, and anxiety; I27.20 Pulmonary hypertension, unspecified; R00.1 Bradycardia, unspecified; B96.20 Unspecified Escherichia coli [E. coli] as the cause of diseases classified elsewhere; K21.9 Gastro-esophageal reflux disease without esophagitis; E11.9 Type 2 diabetes mellitus without complications; E78.5 Hyperlipidemia, unspecified; Z86.16 Personal history of COVID-19; Z79.4 Long term (current) use of insulin
CPT/HCPCS: 31500; 36415; 36592; 36600; 70450; 71045; 71275; 80048; 80053; 80162; 81001; 82550; 82805; 82962; 83605; 83735; 83880; 84100; 84132; 84145; 84443; 84484; 85007; 85025; 85379; 87040; 87070; 87077; 87086; 87186; 87205; 87635; 87797; 92526; 92610; 93005; 93010; 93306; 94002; 94003; 94640; 94660; 94760; 94762; 94799; 96125; 96374; 97162; 97166; 97530; 97535; 99285; C9803; J0692; J0696; J0744; J1160; J1170; J1642; J1650; J1720; J1815; J1940; J2310; J2543; J2704; J2930; J3010; J3475; P9041; Q9957; Q9967